=== PATIENT | male | born 1940 | race Caucasian/White ===

== ENCOUNTER 2025-07-26 11:12 | Inpatient (IN) | payer MEDICARE, SELFPAY ==
[2025-07-26 11:15] VITALS: BP 153/66; PULSE 69; RESP 16; TEMP 36.4; O2SAT 96
[2025-07-26 11:54] VITALS: BMI 30.9
[2025-07-26 13:08] LABS: Mucous, Urine 0 SEEN /hpf (<or=2+); Squamous Epithelial Cells - UA 0 SEEN /hpf (0-5)
[2025-07-26 13:09] LABS: Color, Urine Yellow (Yellow); Glucose, Dipstick Normal (Normal); Ketone-Dipstick Negative (Negative); Leukocyte Esterase-Dipstick 100 /ul (Negative); Nitrite-Dipstick Negative (Negative); Occult Blood-Urine 10 /ul (Negative); Protein-Dipstick 30 mg/dl (Negative); Specific Gravity, Urine 1.015 (1.002-1.030); Urine Bilirubin Dipstick Negative (Negative)
[2025-07-26 13:18] LABS: Red Blood Cells-Urine 0-5 SEEN /hpf (0-5)
--- NOTE | 2025-07-26 15:51 | NURSING ---
verified full code status and aware of rehab routine.
[2025-07-26 17:00] VITALS: BMI 30.9
[2025-07-26 17:55] VITALS: BP 99/56; PULSE 57; RESP 16; TEMP 35.8; O2SAT 92
[2025-07-26] MEDS: Heparin Injection (Vial) 5,000 UNIT/ML VIAL 5000 UNIT SC (21:06)
[2025-07-26] MEDS: MELATONIN 3 MG TABLET PO (21:06)
[2025-07-27 01:57] VITALS: BMI 30.9
[2025-07-27 06:50] VITALS: BP 144/67; PULSE 66; RESP 17; TEMP 36.3; O2SAT 97
[2025-07-27 06:52] VITALS: BMI 30.9
--- NOTE | 2025-07-27 07:04 | NURSING ---
pt woke up agitated at 0530. moved down to end of bed and rails were unable to be adjusted d/t his positioning. multiple rns attempted to give zyprexa and tylenol for comfort but pt refused. dr cortés notified. x1 prn dose of haldol ordered.
--- NOTE | 2025-07-27 09:02 | HP.PCM_ITS ---
HPI - General General Date of Admission: 07/26/25 Date of Service: 07/27/25 Chief Complaint: Post Stroke debility HPI Narrative KITTY CLINTON, is a 85 YO M with a PMH of PCI to the to LAD in 2024, aortic stenosis, tobacco dependence in remission, CRF stage IV, LVH, LAE, mild MR, HTN, HLD, DM II, BPH with urine retention, obesity, GERD, OA, bradycardia (resolved with DC BB), peripheral neuropathy and gout who presents [ ] Has a Caba catheter present at admission to rehab. UA show no nitrites, no ketones, 0-5 RBCs, 0-5 WBCs and no bacteria. [facility] Medical History (Updated 07/27/25 @ 17:[address] Indigo Mello, ) Remote history of stroke Coronary artery disease Diabetes mellitus, type 2 Chronic renal failure (CRF), stage 4 (severe) Benign prostatic hyperplasia Neuropathy Nonrheumatic aortic (valve) stenosis Osteoarthritis Heart failure Gout Hyperlipidemia Hypertension GERD (gastroesophageal reflux disease) Stroke/cerebrovascular accident Home Medications ?Medication ?Instructions ?Recorded ?Last Taken ?Type allopurinol 300 mg tablet 100 mg PO DAILY gout 5 Unknown History amlodipine 10 mg tablet 10 mg PO DAILY bp 07/26/25 U nknown History aspirin 81 mg chewable tablet 1 tab PO DAILY heart 11/18 Unknown History bumetanide 0.5 mg tablet 0.5 mg PO DAILY diuretic 11/18 Unknown History clopidogrel 75 mg tablet 75 mg PO DAILY blood thinner 07/26/25 Unknown History empagliflozin 10 mg tablet 10 mg PO DAILY dm 07/26/25 Unknown History (Jardiance) ezetimibe 10 mg tablet 10 mg PO DAILY cholesterol 1 09/25/24 Unknown History gabapentin 300 mg capsule 300 mg PO BID pain 07/26/25 Unknown History insulin glargine 100 19 unit subcut DAILY dm 11/18 Unknown History unit-lixisenatide 33 mcg/mL subcutaneous pen (Soliqua 100/33) lansoprazole 15 mg capsule,delayed 15 mg PO DAILY gerd 07/26/25 Unknown History release melatonin 3 mg tablet 3 mg PO QHS sleep 07/26/25 U nknown History olanzapine 2.5 mg tablet 2.5 mg PO Q8H PRN agitation 07/26/25 Unknown History olanzapine 2.5 mg tablet 5 mg PO QHS mood 07/26/25 Un known History tamsulosin 0.4 mg capsule 0.4 mg PO DAILY bph 07/26/25 Unknown History trazodone 50 mg tablet 25 mg PO QHS sleep 07/26/25 Unknown History Allergy/AdvReac Type Severity Reaction Status Date / Time iodine Allergy Unknown Rash Verified 07/26/25 11:59 [id number] Reductase Allergy Unknown Swelling Verified 07/26/25 11:59 Inhibitor Family History (Updated 07/27/25 @ 17:[address] Indigo Mello DO) Son , metastatic malignant melanoma CAD (coronary artery disease) Son , MD/sudden cardiac CAD (coronary artery disease) Surgical History (Updated 07/27/25 @ 17:[address] Indigo Mello DO) History of cataract extraction History of appendectomy S/P TAVR (transcatheter aortic valve replacement) History of PTCA Social History (Updated 07/27/25 @ 17:[address] Indigo Mello DO) household members: spouse housing: house number of children: 2 Smoking Status: Former smoker ROS Review of Systems ROS Unobtainable: other Details: unattainable due to severe expressive aphasia. He does have BPH and urine retention. Also has delirium being treated with Zyprexa. Vital Signs Vital Signs Vital Signs: 07/26/25 11:15 07/26/25 14:18 07/26/25 17:55 Temperature 97.5 F L 96.5 F L Temperature Source Temporal Oral Pulse Rate 69 57 L Respiratory Rate 16 16 Respiratory Effort Normal Non-Labored Respiratory Depth Normal Respiratory Pattern Normal Blood Pressure 153/66 H 99/56 L Blood Pressure Mean 95 70 Blood Pressure Source Monitor Monitor Blood Pressure Position Supine Semi-Fowlers Blood Pressure Location Left Arm Right Arm Pulse Ox 96 92 Oxygen Delivery Method Room Air Room Air Room Air 07/27/25 06:50 Temperature 97.3 F L Temperature Source Oral Pulse Rate 66 Respiratory Rate 17 Respiratory Effort Respiratory Depth Respiratory Pattern Blood Pressure 144/67 H Blood Pressure Mean 92 Blood Pressure Source Monitor Blood Pressure Position Semi-Fowlers Blood Pressure Location Left Arm Pulse Ox 97 Oxygen Delivery Method Room Air Weight Weight: 216 lb Body Mass Index (BMI) 30.9 Indicators for Scoring Admitted with or Primary Diagnosis of CVA/Stroke: Yes Hx of CVA/Stroke: Yes Modified Warren Score MRS Score at time of Evaluation: 4-Moderate/severe disability NIHSS NIHSS 1a. Level of Consciousness: 0 - Alert; keenly responsive 1b. LOC Questions: 2 - Answers NEITHER question correctly 1c. LOC Commands: 1 - Performs ONE task correctly 2. Best Gaze: 0 - Normal 3. Visual: 0 - No visual loss (Not cooperative with exam.......intact to confrontation/physical threat BL. ) 4. Facial Palsy: 1 - Minor paralysis (flattened nasolabial fold, asymmetry on smiling) 5a. Left Arm: 0 - No drift; arm holds 90 (or 45) degrees for full 10 seconds 5b. Right Arm: 0 - No drift; arm holds 90 (or 45) degrees for full 10 seconds 6a. Left Le - Drift; leg falls by the end of 5-seconds, but does not hit bed 6b. Right Le - Drift; leg falls by the end of 5-seconds, but does not hit bed 7. Limb Ataxia: 0 - Absent (no ataxia in the UE's BL. Could not test the LE's because he could not cooperate with the exam. ) 8. Sensory: 0 - Normal; no sensory loss 9. Best Language: 2 - Severe aphasia; (Expressive > receptive but, has both receptive and expressive aphasia) 10. Dysarthria: 1 = [id number] dysarthria; 11. Extinction and Inattention: 0 - No abnormality Total: 9 Stroke Questions Stroke Team Activated: No Physical Exam Const alert and no apparent distress Constitutional Narrative: Expressive aphasia is severe and he is not able to tell me his name, the year, his age, where he is at or the month. He does not appear to be in any distress. He is obese. Was very agitated last night and had to be given Haldol. He has been pleasant with me and cooperating to the degree that the severe aphasia allows. He is tearful and keeps telling me his 2 sons are gone. Can not tell me his 's name but, is distressed that she is not here with him. General Appearance: well developed HEENT HEENT Narrative: Mucous membranes are a little dry. Tongue protrudes on the midline. No evidence of thrush. He has hearing aids in both the ears. Head and Scalp: normocephalic and atraumatic Eyes PERRL, EOMs intact bilaterally, conjunctivae normal and no scleral icterus Eyes Narrative: No discharge from the eyes. visual healy intact to physical threat BL. Pupils are 2 mm. General Eye: normal appearance of both eyes and normal light reflex Neck full ROM and No nodes General: trachea midline Chest Chest: symmetrical chest wall rise Resp normal respiratory effort and normal air movement Resp Narrative: He initially had coarse crackles in the bases and these almost completely resolved after a few deep breaths. He was able to follow my commands to take a deep breath. No conversational dyspnea. Not tachypneic. No wheezing. Cardio regular rate, regular rhythm, no rub and no gallops Cardio Narrative: 1-2/6 ELISHA at the second RICS without radiation. No ectopy. GI normal to inspection, nondistended, normoactive bowel sounds and soft to palpation GI Narrative: No guarding with palpation no CVA tenderness Bladder / Kidney Exam: catheter in place urethral (Urine in the tubing and Caba bag is pale yellow and clear.) Back/Spine normal to inspection General Back: Negative for tenderness Extremity no calf tenderness and no pedal edema Extremity Narrative: He has superficial varicosities of both lower extremities. Skin Skin Narrative: bruising and a few skin tears on the upper extremities.......he tends to pull dressings off. No decubiti noted. Rashes: no rashes Hair: male pattern alopecia Neuro Neuro Narrative: Minimal flattening of the R nasal fold. + dysarthria, + severe aphasia, PERRLA, good shoulder shrug BL. No drift with either UE. No ataxia with the UE's. He has drift with both LE's but, does not hit the bed. unable to complete the heel gore test........will not bend his knees and can not understand what I want him to do. No loss of sensation. No apparent visual field cuts. Follow me around the room when I walk from 1 side to the other. Vision Intact to physical threat BL. Unable to check for extinction......does not seem to have side neglect. Able to maintain an upright posture in the chair with no sloudhing to the side. Able to follow simple commands < 50% of the time. Psych Psych Narrative: Agitated at times and at other times cooperative. Agitation seems to be worse at night. Results Lab / Micro Data 07/27/25 09:35 07/27/25 09:35 Labs: Laboratory Results - last 24 hr 07/26/25 11:54: POC Glucose 191 H 07/26/25 13:00: Urine Color Yellow, Urine Clarity Clear, Urine pH 6.0, Ur Specific [place] 1.015, Urine Protein 30 H, Urine Glucose (UA) Normal, Urine Ketones Negative, Urine Occult Blood 10 H, Urine Nitrite Negative, Urine Bilirubin Negative, Urine Urobilinogen Normal, Ur Leukocyte Esterase 100 H, Urine RBC 0-5 SEEN, Urine WBC 0-5 SEEN, Ur Squamous Epith Cells 0 SEEN, Urine Bacteria 0 SEEN, Hyaline Casts 0-5 SEEN, Urine Mucus 0 SEEN 07/26/25 16:27: POC Glucose 244 H 07/26/25 21:00: POC Glucose 227 H Assessment & Plan Assessment/Plan (1) Debility: (2) Embolic stroke: QUALIFIERS: Precerebral and cerebral artery: unspecified precerebral artery Qualified Code(s): I63.10 - Cerebral infarction due to embolism of unspecified precerebral artery PLAN: Multiple emboli BL cerebral hemispheres and L cerebellum following TAVR (3) Aphasia: (4) Delirium: PLAN: Presumably due to acute multiple embolic CVAs affecting both cerebral hemispheres. Continue Zyprexa (5) Nonrheumatic aortic (valve) stenosis: (6) S/P TAVR (transcatheter aortic valve replacement): PLAN: 07/14/2025 (7) Coronary artery disease: QUALIFIERS: Coronary Disease-Associated Artery/Lesion type: [place] artery [place] vs. transplanted heart: [place] heart Associated angina: without angina Qualified Code(s): I25.10 - Atherosclerotic heart disease of [place] coronary artery without angina pectoris (8) History of PTCA: PLAN: December 2024 to LAD..... Will need dual antiplatelet agents for 1 year (9) Remote history of stroke: PLAN: Left caudate/basal ganglia (10) Chronic renal failure (CRF), stage 4 (severe): (11) Benign prostatic hyperplasia: QUALIFIERS: Lower urinary tract symptom presence: symptoms present Lower urinary tract symptom detail: urinary retention Qualified Code(s): N40.1 - Benign prostatic hyperplasia with lower urinary tract symptoms; R33.8 - Other retention of urine (12) Urine retention: (13) Presence of indwelling Caba catheter: PLAN: Present at admission to rehab. (14) Thyroid enlargement: PLAN: Large nodule on recent CT imaging of the neck. Can be evaluated as an OP. (15) Depression: QUALIFIERS: Depression Type: reactive depression Qualified Code(s): F32.9 - Major depressive disorder, single episode, unspecified (16) Diabetes mellitus, type 2: QUALIFIERS: Diabetes mellitus ad terminal makeup operator insulin use: with ad terminal makeup operator use Diabetes mellitus complication status: with kidney complications D iabetes mellitus complication detail: with chronic kidney disease Chronic kidney disease stage: stage 4 (GFR 15-29) Qualified Code(s): E11.22 - Type 2 diabetes mellitus with diabetic chronic kidney disease; N18.4 - Chronic kidney disease, stage 4 (severe); Z79.4 - senior care (current) use of insulin (17) Normochromic normocytic anemia: PLAN: Possibly due to CRF stage IV (18) GERD (gastroesophageal reflux disease): QUALIFIERS: Esophagitis presence: without esophagitis Qualified Code(s): K21.9 - Gastro-esophageal reflux disease without esophagitis (19) Hypertension: QUALIFIERS: Hypertension type: primary hypertension Qualified Code(s): I10 - Essential (primary) hypertension (20) Hyperlipidemia: QUALIFIERS: Hyperlipidemia type: unspecified Qualified Code(s): E 78.5 - Hyperlipidemia, unspecified (21) Gout: QUALIFIERS: Gout site: unspecified site Gout etiology: u nspecified cause Chronicity: chronic Presence of tophus: without tophus Q ualified Code(s): M1A.9XX0 - Chronic gout, unspecified, without tophus (tophi) (22) Osteoarthritis: QUALIFIERS: Osteoarthritis location: multiple joints O steoarthritis type: primary Qualified Code(s): M15.0 - Primary generalized (osteo)arthritis (23) Neuropathy: PLAN: peripheral neuropathy more likely than not due to DM II (24) First degree AV block: (25) Left bundle branch block: PLAN: Plan PLAN PT for gait stability OT for ADL's ST for evaluation Analgesics as needed Bowel protocol Fall precautions Assess for Anxiety/Depression GI prophylaxis -patient has severe expressive aphasia and cannot tell me if he has heartburn or not. He has a history of GERD. Will continue lansoprazole 15 mg daily. DVT prophylaxis with heparin 5000 units SQ every 12 hours Follow up with neurology, cardiology, PCP, nephrology, urology following DC from IP Rehab AM lab including CMP, CBC, Mag and Phos - all personally reviewed. Will need a thyroid US as OP to better evaluate the 3.1 cm thyroid nodule. Add a dose of Zyprexa 2.5 MG IN THE am Uric acid this a.m. was 8.5. He currently has no active gout. Will increase allopurinol to 200 mg daily. Wean Zyprexa as tolerated when appropriate. Charges/Coding Visit Charges Inpatient E&M: 43763 Init Hosp L3
[2025-07-27] MEDS: Insulin Glargine-YFGN 100 UNIT/ML Pen 19 UNIT SC (09:07)
[2025-07-27] MEDS: Heparin Injection (Vial) 5,000 UNIT/ML VIAL 5000 UNIT SC ×2 (09:09→20:23)
[2025-07-27 09:25] VITALS: BP 160/82; PULSE 71; O2SAT 96
[2025-07-27 09:51] LABS: Hematocrit 38.6 % (40-54); Hemoglobin 12.7 g/dL (13.0-16.5); Mean Corp Hgb Conc 32.9 g/dL (32-36); Mean Corpuscular Volume 92.6 fL (80-94); Mean Platelet Vol. 11.0 fl (6.2-12.0); Platelet Count 281 K/mm3 (150-450); RBC Distribution Width CV 13.9 % (11.6-14.6); RBC Distribution Width SD 47.0 fl (35.1-43.9); Red Blood Count 4.17 M/mm3 (4.6-6.2); White Blood Count 9.8 K/mm3 (4.4-11.0)
[2025-07-27 10:25] LABS: AST(SGOT) 24 U/L (<=37); Alanine Aminotransfer ALT/SGPT 10 U/L (<=46); Albumin, Serum 3.9 g/dL (3.4-4.8); Alkaline Phosphatase 131 U/L (40-129); Anion Gap 12 (5-15); BUN 37 mg/dL (4-19); BUN/Creat Ratio 15.8 RATIO (10-20); Calcium,Total 9.5 mg/dL (7.6-11.0); Carbon Dioxide 24.8 mmol/L (21.0-32.0); Chloride 100 mmol/L (98-108); Estimated Creatinine Clearance 27.21 ml/min (50-250); Globulin 3.9 g/dL (2.2-4.2); Glucose 192 mg/dL (70-99); Potassium 4.9 mmol/L (3.3-5.1)
[2025-07-27 10:57] LABS: Uric Acid 8.5 mg/dL (3.5-7.2)
[2025-07-27] MEDS: FLU VACCINE HIGH DOSE 25-26(65YR UP) 180 MCG/0.5 ML SYRINGE IM (11:02)
[2025-07-27 11:06] LABS: Magnesium 2.5 mg/dL (1.5-2.2)
[2025-07-27 12:55] VITALS: BMI 30.9
--- NOTE | 2025-07-27 17:54 | PCM.RU.PYE ---
Admission Information Primary Diagnosis:: Poststroke debility Status Changes from Prescreening?: No changes Identified Actual Problem List:: Skin Intergrity, Cognitve Impr/Memory Loss, Depression, Bladder Incontinence (retention not incontinence), Alteration in Sleep, Mobility Impaired, Self Care Deficit, Know.Dfct of Medicaitons, Diabetes, Hyperglycemia and Alteration-Leisure Activ. Risk of Complications DVT: ZANE Hose and - (Heparin 5000 units SQ every 12 hours) Bleeding: Monitor Lab Values, Nursing to Teach Precautions for anti-coagulation therapy., Wound, if applicable, to be assessed every shift. and Stroke patients assessed for lethargy or change in status. Infection: Clinical Staff to Monitor for S/S of infection: and S/S of infection include fever, redness, warmth, etc. Urinary Tract Infection: Monitor for frequency, burning, discomfort, or incontinence. and Nursing will obtain urine sample for urinalysis and C&S when ordered. Aspiration: Clinical staff will monitor for coughing, drooling, congestion., Speech will evaluate swallowing and dsyphasia. and Nursing will monitor patient swallowing during meals. Falls: Patient will be evaluated for Fall Precautions and Patient will be placed on Fall Precautions as indicated per protocol. Skin Breakdown: Nursing will assess skin daily using assessment tool. and Nursing will place on Skin Breakdown Precautions as indicated. Pain: Clinical staff will assess patient's pain level per protocol., Medications will be given, if needed, and the pain level reassessed. and Other methods: Massage, distraction, decrease stimulus, etc. used PRN. Plan of Care Patient requires physician specializing in physical medicine and rehab oversight to provide close medical supervision of rehab issues including: Pain Management, Sleep Problems, Bowel and Bladder, Medical and co-morbidity Management, DVT prophylaxis, Rehabilitation Leadership and Coordination of treatment team Patient needs Physical Therapy: For a minimum of 1 hour and At least 5 out of 7 days Patient needs Physical Therapy to improve:: Mobility, Strengthening, Transfers, Stretching, ROM, Endurance, Stairs, Gait and Balance Patient needs Occupational Therapy: For a minimum of 1 hour and At least 5 out of 7 days Patient needs Occupational Therapy to improve ADL's incl.: Eating, Grooming, Bathing, Dressing, Toileting, Toilet transfers, Community Reintegration, Higher functioning activities, Household tasks, Adaptive Equipment, Splinting and Other activities as determined Patient requires speech therapy: For a minimum of 1 hour and At least 5 out of 7 days Patient requires speech therapy for: Swallowing, Cognition, Language Skills and Compensatory Strategies Patient requires 24/ Rehabilitation Nursing for: Pain Issues, Identifying and preventing risk factors, Monitoring and reporting current medical conditions, Assisting with ambulation, transfer, and all ADL's, Teaching patients about disease process and medications, Family teaching, Providing safe environment, Bowel and Bladder Issues, Skin integrity and Medication Management Patient needs Road Roller Operator Hot Mix/ Case Management for: Discharge Planning, Arranging Home Equipment or Services and Family Interventions Patient needs Dietary and Nutrition Services for: Adequate Nutrition, Nutritional Supplements and Nutritional Education Goals Goals Patient will remain: free from falls Patient will perform eating at: MOD I level of assist. Patient will perform bed mobility at: MOD I level of assist. Patient will complete transfers from bed to chair at: Standby Assist. Patient will ambulate: - (200 feet using a wheeled walker at standby assist) Patient will complete upper body dressing at: - (Set up) Patient will complete lower body dressing at: - (Supervision with adaptive equipment as needed) Patient will complete toilet transfer at: - (Supervision) Patient will complete toileting at: - Patient will perform bathing at: - (He will complete upper body bathing at set up and lower body bathing and set up with adaptive equipment as needed.) Patient will perform Tub/Shower transfer at: Standby Assist. Patient will achieve: - (2-3 steps using 1 handrail at standby assist) Patient will have pain level of: of 3 or less Patient's skin will: remain intact Patient will receive: adequate nutrition. Discharge Planning Pt Prognosis for Sig. Practical Improv. w/in Reasonable Time: Fair Estimated Length of stay (days): 28 Anticipated D/C Destination: TBD Was Preadmission Assessment Accurate?: Yes
[2025-07-27 18:00] VITALS: BP 122/56; PULSE 69; RESP 17; TEMP 36.4
[2025-07-27 20:00] VITALS: PULSE 69; RESP 17; O2SAT 97; BMI 30.9
[2025-07-27] MEDS: MELATONIN 3 MG TABLET PO (20:25)
--- NOTE | 2025-07-28 01:45 | NURSING ---
Pt setting off BA several times and taking off gown. Pt claims he needs to get oob to urinate. Pt reluctant to get back into bed and urged by staff to look at HAGER bag to see that the bladder is released through the tube running from his bladder to the HAGER bag. Staff asked if pt needed the bsc to have a BM and pt became more upset. Pt stood up and repositioned to head of bed with staff assisting into bed. BA was set and pt denies further needs at this time.
--- NOTE | 2025-07-28 02:20 | NURSING ---
pt awake and attempting to get oob, d/t needing to pee staff tried to make pt understand that he had a de oliveira in place that was draining his urine. the more staff tried to explain the more agitated pt became, zyprexa was given as per prn order. pt repositioned back into the bed with some difficulty . [id number] pt resting quietly at this time, with no distress noted , fall strategies in place
--- NOTE | 2025-07-28 03:35 | NURSING ---
Pt setting off BA with gown stripped and sitting on side of bed. Staff reorients pt to time of day and washes pt up for the day in hopes that pt will be able to relax, falling back to sleep without interruption.
[2025-07-28 04:50] VITALS: BMI 30.7
[2025-07-28 05:20] VITALS: BP 165/65; PULSE 52; RESP 16; TEMP 36.2; O2SAT 95
[2025-07-28] MEDS: Heparin Injection (Vial) 5,000 UNIT/ML VIAL 5000 UNIT SC ×2 (09:16→20:13)
[2025-07-28] MEDS: Senna/Docusate Sodium 1 Tablet 2 TABLET PO ×2 (09:16→19:43)
[2025-07-28] MEDS: Insulin Glargine-YFGN 100 UNIT/ML Pen 19 UNIT SC (09:18)
[2025-07-28 09:23] VITALS: BP 104/53; PULSE 65
--- NOTE | 2025-07-28 09:42 | CASEMGMT ---
Social Work SW phoned to complete initial assessment d/t pt's confusion and expressive aphasia. stated she provided copies of advance directives last evening. states she prefers her son, Surinder, is listed as primary contact, as she has difficultly understanding medical information. SW expressed understanding and updated EMR. Surinder is 's son and pt's stepson. and sson will be present at Team meeting and SW will explain insurance information at that time, per 's request. SW will continue to follow for DC planning. Anahi Valdes TRANSPORTATION ENGINEERING TECHNICIAN FOOTWEAR STITCHER
[2025-07-28 11:33] VITALS: BMI 30.7
[2025-07-28 12:08] VITALS: BP 120/58; BP 124/49; BP 83/65; PULSE 57; PULSE 59; PULSE 60
--- NOTE | 2025-07-28 13:51 | PN_ITS ---
Subjective Subjective Afebrile VSS -blood pressure over the past 24 hours has ranged from 104/53 to 160/82. Heart rate is ranged from 52-71. Severe orthostatic changes today.... The blood pressure lying down was 124/49 and standing up it dropped to 83/65. Heart rate is in the 50s to 60 range and does not increase when going form lying to standing. He is not on any medications to block the AV node. Maintaining appropriate oxygen saturation on RA Oral intake - FOOD highly variable. Ate 75 to 100% of some meals and refuses others. He refused breakfast yesterday morning and today. He ate well for lunch and supper yesterday. FLUIDS was able to take 1430 cc yesterday orally with a a lot of encouragement. Urine output was 2425 for fluid balance of -995 yesterday. So far today is -960. He is on Bumex 0.5 mg daily. Weight is down approximately 1 pounds since admission to rehab. He had 1 as needed dose of Zyprexa at 1:30 AM today. The blood sugar record was reviewed. Blood sugars yesterday ranged from 141-252 prior to lunch. Fasting blood sugar today is 160. Discussed with nursing -very restless last night trying to get out of bed and wanting to urinate but has a Caba catheter present. Required 3 people to get him back into bed and reposition him. Initially refused his medications this morning but later agreed to take them. Has been pulling on the Caba catheter. Reviewed the THERAPY notes Medication list reviewed. He now has hematuria secondary to pulling on the Caba catheter. He is very impulsive. Has severe receptive and expressive aphasia. ROS is not obtainable due to severe expressive aphasia. He does not appear to be in any distress. Objective Data Objective Data Vital Signs: Vital Signs Temp Pulse Resp BP Pulse Ox O2 Del Method 97.1 F L 59 L 16 124/49 H 95 Room Air 07/28/25 05:20 07/28/25 12:08 07/28/25 05:20 07/28/25 12:08 07/28/25 05:20 07/28/25 05:20 Oxygen Delivery Method Room Air Weight: 214 lb 1.102 oz Body Mass Index (BMI) 30.7 Intake & Output: Intake and Output for Last 24 Hours 07/26/25 07/27/25 07/28/25 22:59 23:59 23:59 Intake Total 1062 / 1262 1430 / 1430 240 / 240 Output Total 400 / 800 2425 / 2425 1200 / 1200 Balance 662 / 462 -995 / -995 -960 / -960 Lab / Micro Data 07/27/25 09:35 07/27/25 09:35 Labs: Laboratory Results - last 24 hr 07/27/25 16:53: POC Glucose 141 H 07/27/25 20:18: POC Glucose 185 H 07/28/25 06:09: POC Glucose 160 H 07/28/25 11:53: POC Glucose 222 H Micro: Microbiology 07/26/25 13:00 Urine, Catheterized Urine Culture - Final Culture exhibits no growth. Physical Exam Const alert and no apparent distress Resp normal respiratory effort and normal air movement Cardio regular rate, regular rhythm, no rub and no gallops Cardio Narrative: 1-2/6 ELISHA at the second RICS without radiation. No ectopy. GI normal to inspection, nondistended, normoactive bowel sounds and soft to palpation GI Narrative: No guarding with palpation urine in the Caba bag is pink-red today Extremity no calf tenderness and no pedal edema Extremity Narrative: He has superficial varicosities of both lower extremities. Skin Rashes: no rashes Hair: male pattern alopecia Assessment & Plan Assessment/Plan (1) Debility: (2) Embolic stroke: QUALIFIERS: Precerebral and cerebral artery: unspecified precerebral artery Qualified Code(s): I63.10 - Cerebral infarction due to embolism of unspecified precerebral artery (3) Aphasia: (4) Delirium: (5) Nonrheumatic aortic (valve) stenosis: (6) S/P TAVR (transcatheter aortic valve replacement): (7) Coronary artery disease: QUALIFIERS: Coronary Disease-Associated Artery/Lesion type: [place] artery [place] vs. transplanted heart: [place] heart Associated angina: without angina Qualified Code(s): I25.10 - Atherosclerotic heart disease of [place] coronary artery without angina pectoris (8) History of PTCA: (9) Remote history of stroke: PLAN: Left caudate/basal ganglia (10) Chronic renal failure (CRF), stage 4 (severe): (11) Benign prostatic hyperplasia: QUALIFIERS: Lower urinary tract symptom presence: symptoms present Lower urinary tract symptom detail: urinary retention Qualified Code(s): N40.1 - Benign prostatic hyperplasia with lower urinary tract symptoms; R33.8 - Other retention of urine (12) Urine retention: (13) Presence of indwelling Caba catheter: PLAN: Present at admission to rehab. (14) Thyroid enlargement: PLAN: Large nodule on recent CT imaging of the neck. Can be evaluated as an OP. (15) Depression: QUALIFIERS: Depression Type: reactive depression Qualified Code(s): F32.9 - Major depressive disorder, single episode, unspecified (16) Diabetes mellitus, type 2: QUALIFIERS: Diabetes mellitus snf insulin use: with snf use Diabetes mellitus complication status: with kidney complications D iabetes mellitus complication detail: with chronic kidney disease Chronic kidney disease stage: stage 4 (GFR 15-29) Qualified Code(s): E11.22 - Type 2 diabetes mellitus with diabetic chronic kidney disease; N18.4 - Chronic kidney disease, stage 4 (severe); Z79.4 - watermaster (current) use of insulin (17) Normochromic normocytic anemia: PLAN: Possibly due to CRF stage IV (18) GERD (gastroesophageal reflux disease): QUALIFIERS: Esophagitis presence: without esophagitis Qualified Code(s): K21.9 - Gastro-esophageal reflux disease without esophagitis (19) Hypertension: QUALIFIERS: Hypertension type: primary hypertension Qualified Code(s): I10 - Essential (primary) hypertension (20) Hyperlipidemia: QUALIFIERS: Hyperlipidemia type: unspecified Qualified Code(s): E 78.5 - Hyperlipidemia, unspecified (21) Gout: QUALIFIERS: Gout site: unspecified site Gout etiology: u nspecified cause Chronicity: chronic Presence of tophus: without tophus Q ualified Code(s): M1A.9XX0 - Chronic gout, unspecified, without tophus (tophi) (22) Osteoarthritis: QUALIFIERS: Osteoarthritis location: multiple joints O steoarthritis type: primary Qualified Code(s): M15.0 - Primary generalized (osteo)arthritis (23) Neuropathy: PLAN: peripheral neuropathy more likely than not due to DM II (24) First degree AV block: (25) Left bundle branch block: (26) Hematuria: QUALIFIERS: Hematuria type: unspecified type Qualified Code(s): R 31.9 - Hematuria, unspecified (27) Orthostatic hypotension: (28) Bradycardia: PLAN: Plan 1. Continue therapy 2. Increase the trazodone at bedtime to 50 mg. Continue Zyprexa 5 mg at 8 PM. Trazodone is not associated with urine retention but, Zyprexa is.......but, Zyprexa has less anticholinergic effects than Risperdal or Seroquel. 3. Increase the sliding scale insulin to medium high. He has had no hypoglycemia. 4. Hold Bumex and reassess tomorrow 5. I have no reason for bradycardia so we will check a TSH and T4 today........ he has a 3.1 cm thyroid nodule in the right lobe. 6. Recheck orthostatics tomorrow 7. Zyprexa, Flomax and Amlodipine all lower BP. He could also have autonomic neuropathy causing the orthostasis. Charges/Coding Visit Charges Inpatient E&M: 69751 Subs Hosp L2
[2025-07-28 17:28] VITALS: BP 106/76; PULSE 63; RESP 17; TEMP 36; O2SAT 94
[2025-07-28] MEDS: MELATONIN 3 MG TABLET PO (19:43)
[2025-07-28 19:45] VITALS: PULSE 63; RESP 17; O2SAT 94; BMI 30.7
[2025-07-29 06:00] VITALS: BP 119/73; PULSE 73; RESP 16; TEMP 36.4; O2SAT 98
[2025-07-29 06:45] VITALS: BP 119/73; BP 147/67; PULSE 67; PULSE 73
[2025-07-29 06:48] VITALS: O2SAT 89
[2025-07-29] MEDS: Senna/Docusate Sodium 1 Tablet 2 TABLET PO ×2 (07:55→19:41)
[2025-07-29] MEDS: Heparin Injection (Vial) 5,000 UNIT/ML VIAL 5000 UNIT SC ×2 (07:56→19:42)
[2025-07-29] MEDS: Insulin Glargine-YFGN 100 UNIT/ML Pen 19 UNIT SC (07:56)
[2025-07-29 13:57] VITALS: BP 112/68; BP 130/72; BP 136/72; PULSE 60; PULSE 62; PULSE 70
[2025-07-29 14:07] VITALS: BMI 30.7
[2025-07-29 17:53] VITALS: BP 110/72; PULSE 61; RESP 18; TEMP 36.8; O2SAT 96
[2025-07-29] MEDS: MELATONIN 3 MG TABLET PO (19:42)
[2025-07-29 19:45] VITALS: PULSE 61; RESP 18; O2SAT 96; BMI 30.7
[2025-07-30 06:00] VITALS: BP 136/78; PULSE 77; RESP 17; TEMP 36.6; O2SAT 94
[2025-07-30 06:30] VITALS: BMI 30.9
[2025-07-30 06:55] VITALS: O2SAT 94
[2025-07-30] MEDS: Senna/Docusate Sodium 1 Tablet 2 TABLET PO ×2 (08:04→21:27)
[2025-07-30] MEDS: Heparin Injection (Vial) 5,000 UNIT/ML VIAL 5000 UNIT SC ×2 (08:07→21:27)
[2025-07-30] MEDS: Insulin Glargine-YFGN 100 UNIT/ML Pen 19 UNIT SC (08:07)
--- NOTE | 2025-07-30 08:53 | PN_ITS ---
Subjective Subjective Afebrile VSS - orthostatics were very + yesterday AM. He received 10 mg of Midodrine and although he was still mildly orthostatic they were much improved. Following midodrine the blood pressure was 136/72 lying down, 130/72 sitting up and 112/68 standing. Maintaining appropriate oxygen saturation on RA Oral intake - FOOD good FLUIDS good Weight is stable. The blood sugar record was reviewed. The blood sugars are adequately controlled with the increase in the sliding scale insulin with no hypoglycemia. Will continue current regimen. Discussed with nursing -still a little restless last night but much better than he has been. Reviewed the THERAPY notes Medication list reviewed. Gabapentin was decreased and he is not showing any signs that he is in pain. He is not coughing and he is not tachypneic. He was able to communicate to PT that he needed to have a BM and he was able to wipe himself. Family thinks he is much better today than he was yesterday. He is engaged in the conversation when I am talking with his family and he is making eye contact with me. Slept better last night. Objective Data Objective Data Vital Signs: Vital Signs Temp Pulse Resp BP Pulse Ox O2 Del Method 97.8 F 77 17 136/78 H 94 Room Air 07/30/25 06:00 07/30/25 06:00 07/30/25 06:00 07/30/25 06:00 07/30/25 06:55 07/30/25 06:55 Oxygen Delivery Method Room Air Weight: 215 lb 13.321 oz Body Mass Index (BMI) 30.9 Intake & Output: Intake and Output for Last 24 Hours 07/28/25 07/29/25 07/30/25 23:59 23:59 23:59 Intake Total 1300 / 1300 1920 / 1920 222 / 222 Output Total 2225 / 2225 1350 / 1350 475 / 475 Balance -925 / -925 570 / 570 -253 / -253 Lab / Micro Data 07/27/25 09:35 07/27/25 09:35 Labs: Laboratory Results - last 24 hr 07/29/25 11:56: POC Glucose 180 H 07/29/25 16:32: POC Glucose 166 H 07/29/25 20:12: POC Glucose 162 H 07/30/25 06:32: POC Glucose 136 H Micro: Microbiology 07/26/25 13:00 Urine, Catheterized Urine Culture - Final Culture exhibits no growth. Physical Exam Const alert and no apparent distress Constitutional Narrative: Took his medications this AM with no problem General Appearance: cooperative Neck supple Resp normal respiratory effort and normal air movement Resp Narrative: No cough Effort and Inspection: Negative for tachypneic or respiratory distress Cardio regular rate, regular rhythm, no rub and no gallops Cardio Narrative: 1-2/6 ELISHA at the second RICS without radiation. No ectopy. GI normal to inspection, nondistended, normoactive bowel sounds and soft to palpation GI Narrative: No guarding with palpation urine in the Caba bag is nia today with no blood visible. Extremity no calf tenderness and no pedal edema Extremity Narrative: He has superficial varicosities of both lower extremities. Skin Rashes: no rashes Psych Psych Narrative: Agitation is improving and he is resting better at night. Assessment & Plan Assessment/Plan (1) Debility: (2) Embolic stroke: QUALIFIERS: Precerebral and cerebral artery: unspecified precerebral artery Qualified Code(s): I63.10 - Cerebral infarction due to embolism of unspecified precerebral artery (3) Aphasia: (4) Delirium: (5) Nonrheumatic aortic (valve) stenosis: (6) S/P TAVR (transcatheter aortic valve replacement): (7) Coronary artery disease: QUALIFIERS: Coronary Disease-Associated Artery/Lesion type: [place] artery [place] vs. transplanted heart: [place] heart Associated angina: without angina Qualified Code(s): I25.10 - Atherosclerotic heart disease of [place] coronary artery without angina pectoris (8) History of PTCA: (9) Remote history of stroke: (10) Chronic renal failure (CRF), stage 4 (severe): (11) Benign prostatic hyperplasia: QUALIFIERS: Lower urinary tract symptom presence: symptoms present Lower urinary tract symptom detail: urinary retention Qualified Code(s): N40.1 - Benign prostatic hyperplasia with lower urinary tract symptoms; R33.8 - Other retention of urine (12) Urine retention: (13) Presence of indwelling Caba catheter: (14) Thyroid enlargement: (15) Depression: QUALIFIERS: Depression Type: reactive depression Qualified Code(s): F32.9 - Major depressive disorder, single episode, unspecified (16) Diabetes mellitus, type 2: QUALIFIERS: Diabetes mellitus group home insulin use: with intermediate teacher use Diabetes mellitus complication status: with kidney complications D iabetes mellitus complication detail: with chronic kidney disease Chronic kidney disease stage: stage 4 (GFR 15-29) Qualified Code(s): E11.22 - Type 2 diabetes mellitus with diabetic chronic kidney disease; N18.4 - Chronic kidney disease, stage 4 (severe); Z79.4 - long term care phlebotomist (current) use of insulin (17) Normochromic normocytic anemia: (18) GERD (gastroesophageal reflux disease): QUALIFIERS: Esophagitis presence: without esophagitis Qualified Code(s): K21.9 - Gastro-esophageal reflux disease without esophagitis (19) Hypertension: QUALIFIERS: Hypertension type: primary hypertension Qualified Code(s): I10 - Essential (primary) hypertension (20) Hyperlipidemia: QUALIFIERS: Hyperlipidemia type: unspecified Qualified Code(s): E 78.5 - Hyperlipidemia, unspecified (21) Gout: QUALIFIERS: Gout site: unspecified site Gout etiology: u nspecified cause Chronicity: chronic Presence of tophus: without tophus Q ualified Code(s): M1A.9XX0 - Chronic gout, unspecified, without tophus (tophi) (22) Osteoarthritis: QUALIFIERS: Osteoarthritis location: multiple joints O steoarthritis type: primary Qualified Code(s): M15.0 - Primary generalized (osteo)arthritis (23) Neuropathy: (24) First degree AV block: (25) Left bundle branch block: (26) Hematuria: QUALIFIERS: Hematuria type: unspecified type Qualified Code(s): R 31.9 - Hematuria, unspecified (27) Orthostatic hypotension: (28) Bradycardia: PLAN: Plan 1. Continue therapy 2. Start midodrine 5 mg 3 times daily. Recheck orthostatics this afternoon and also in the AM. Would like to use the lowest effective dose 3. Flomax cause orthostatic hypotension but, with urine retention (already had a urologic procedure earlier this year) he needs to be on this medication for now. 4. Midodrine can cause urine retention however he is severely orthostatic and needs this medication to be able to stand and work with therapy. Will decrease the Amlodipine to 5 mg starting tomorrow 5. Voiding trial in the AM 6. Still restless at night but, better. Continue Zyprexa 5 mg and Trazodone 50 mg at HS. Give both medications at 2200. Has been better in the mornings and more cooperative. 7. CBC with differential and BMP in the AM. 8. Restart Bumex 0.5 mg every 48 hours. Had a lengthy discussion with family about all the diagnoses and what our plan of tx is. I answered all their questions to his satisfaction. Did better with therapy today and is cooperating. Getting his behavior under control was paramount in him being able to participate with therapy. Will try a voiding trial in the AM but, if he fails will need to reinsert and defer further voiding trials to urology. Check a UA prior to pulling the Caba. I suspect he will be able to go home with additional PT/OT. I reinforced with the family that speech is usually the last thing to come back and he will need ongoing therapy at [place]. His step dtr is retiring in Aug and will be help to assist in his care. Family is very supportive. Charges/Coding Visit Charges Inpatient E&M: 70979 Subs Hosp L2
--- NOTE | 2025-07-30 13:50 | CASEMGMT ---
Social Work IDT met with patient, , don and DIL for Team meeting. Discussed patient's progress in PT/OT/ST/SN/MD. Educated to [facility] insurance with [employer] 08/05 and continued stay is not guaranteed with each review. Pt lives at home with his , no steps in the condo. Currently pt needs significant physical assistance and has severe cognitive deficits. SW broached discussion of maybe needing an alternative DC plan, as LOS is unknown. SW briefly educated to SNF, pending [place], or hiring SOLE EDGE INKER MACHINE OOP to assist in the home. Family expressed understanding. SW offered information as needed, but the goal is to continue on RU. Will ReTeam weekly. SW will continue to follow for DC planning. Anahi Valdes MSW METAL BONDING ASSEMBLER
[2025-07-30 13:51] VITALS: BMI 30.9
--- NOTE | 2025-07-30 15:59 | CHAPLAIN ---
Type of Pastoral Visit _x__ Initial Visit ___ Follow-up Visit ___ On-call Visit ___ General Patient Visit ___ Spiritual Assessment ___ Family Conference ___ Bereavement ___ Rapid Response ___ Code Blue ___ Other (describe below) Pastoral Care Referral From _x__ Patient ___ Family ___ Nurse ___ Physician ___ Progressive Die Maker ___ Fire Control Mechanic ___ Other (describe below) Sacrament/Intervention _x__ Active listening ___ Anointing ___ Synagogue ___ Bereavement ___ Communion ___ [place] exploration ___ ___ Life review ___ Prayer ___ Reconciliation ___ Sacrament of Sick _x__ Supportive presence ___ Wedding ___ Other (describe below) Pastoral Comments patient is trying to write on a pad; pt also tries to speak and some words are easily understood but others are not and are not consistent thoughts; pt is aware of these limitations and makes apology and shows facial frustrations along with hand gestures; pt is affirmed in that he is experiencing common affects of a stroke, that staff is understanding and this burrito maker will be patient; time to sit with patient and offer supportive comments and calm; repeated those sentences that were understandable to patient to affirm that he was being heard; offered future support as desired
[2025-07-30 18:00] VITALS: BP 151/55; PULSE 61; RESP 17; TEMP 36.6; O2SAT 99
[2025-07-30] MEDS: OLANZapine 5 MG/TAB TAB.RAPDIS PO (21:27)
[2025-07-30] MEDS: MELATONIN 3 MG TABLET PO (21:27)
[2025-07-30 22:27] LABS: Mucous, Urine 0 SEEN /hpf (<or=2+)
[2025-07-30 22:33] LABS: Color, Urine Yellow (Yellow); Glucose, Dipstick 1000 mg/dl (Normal); Ketone-Dipstick Negative (Negative); Leukocyte Esterase-Dipstick Negative /ul (Negative); Nitrite-Dipstick Negative (Negative); Occult Blood-Urine 10 /ul (Negative); Protein-Dipstick 30 mg/dl (Negative); Specific Gravity, Urine 1.005 (1.002-1.030); Urine Bilirubin Dipstick Negative (Negative)
[2025-07-30 23:04] LABS: Red Blood Cells-Urine 0-5 SEEN /hpf (0-5); Squamous Epithelial Cells - UA 0-5 SEEN /hpf (0-5)
[2025-07-31 01:05] VITALS: BMI 30.9
[2025-07-31 06:00] VITALS: BP 164/71; PULSE 71; RESP 17; TEMP 36.6; O2SAT 97
[2025-07-31 07:01] VITALS: BP 126/109; BP 149/67; BP 164/71; PULSE 71; PULSE 74; PULSE 92
[2025-07-31 07:46] LABS: Hematocrit 35.3 % (40-54); Hemoglobin 11.4 g/dL (13.0-16.5); Immature Granulocytes Count 0.050 X10^3/uL (0.0-0.0); Mean Corp Hgb Conc 32.3 g/dL (32-36); Mean Corpuscular Volume 92.7 fL (80-94); Mean Platelet Vol. 11.4 fl (6.2-12.0); NRBC Flagged by Analyzer 0 % (0-5); Platelet Count 266 K/mm3 (150-450); RBC Distribution Width CV 14.1 % (11.6-14.6); RBC Distribution Width SD 47.9 fl (35.1-43.9); Red Blood Count 3.81 M/mm3 (4.6-6.2); White Blood Count 7.9 K/mm3 (4.4-11.0)
[2025-07-31] MEDS: Senna/Docusate Sodium 1 Tablet 2 TABLET PO ×2 (08:27→21:12)
[2025-07-31] MEDS: Heparin Injection (Vial) 5,000 UNIT/ML VIAL 5000 UNIT SC ×2 (08:27→21:11)
[2025-07-31] MEDS: Insulin Glargine-YFGN 100 UNIT/ML Pen 19 UNIT SC (08:28)
[2025-07-31 08:42] LABS: Anion Gap 11 (5-15); BUN 42 mg/dL (4-19); BUN/Creat Ratio 16.2 RATIO (10-20); Calcium,Total 9.3 mg/dL (7.6-11.0); Carbon Dioxide 25.6 mmol/L (21.0-32.0); Chloride 101 mmol/L (98-108); Estimated Creatinine Clearance 24.56 ml/min (50-250); Glucose 126 mg/dL (70-99); Potassium 4.7 mmol/L (3.3-5.1)
--- NOTE | 2025-07-31 08:59 | PCM.PROGNOTE ---
Subjective Subjective Afebrile VSS - orthostatics have improved on the Midodrine. Maintaining appropriate oxygen saturation on RA Oral intake - FOOD good FLUIDS good Weight is stable. The blood sugar record was reviewed. The blood sugars are adequately controlled. He did have an increase in the sliding scale insulin with no hypoglycemia. Will continue current regimen. Discussed with nursing -pt slept well last night. Caba cath was removed this morning and will continue to assess. Reviewed the THERAPY notes Medication list reviewed. Gabapentin was decreased to 100mg bid and he denies pain. He is not coughing and he is not tachypneic or dyspneic. Trazadone was increased as well as Zyprexa changed to 2.5mg with breakfast and 5mg at night, this seems to be helping with nighttime sleep. I did note him to have slight worsening of kidney function as compared to labs of 07/27, 07/13/25 and 03/09/25. with a BUN of 42 (37), creat of 2.58 (2.33) and GFR of 24 (27), Nursing encourage fluid intake. Nursing did state that he has not been drinking much. He continues to have receptive and expressive aphasia but is working well with ST. Objective Data Objective Data Vital Signs: Vital Signs Temp Pulse Resp BP Pulse Ox O2 Del Method 97.9 F 71 17 164/71 H 97 Room Air 07/31/25 06:00 07/31/25 07:01 07/31/25 06:00 07/31/25 07:01 07/31/25 06:00 07/31/25 06:00 Oxygen Delivery Method Room Air Weight: 215 lb 13.321 oz Body Mass Index (BMI) 30.9 Intake & Output: Intake and Output for Last 24 Hours 07/29/25 07/30/25 07/31/25 23:59 23:59 23:59 Intake Total 1920 / 1920 1842 / 1842 540 / 540 Output Total 1350 / 1350 975 / 975 1500 / 1500 Balance 570 / 570 867 / 867 -960 / -960 Lab / Micro Data Attestation: I reviewed the patient's lab results. Lab results narrative: see subjective information 07/31/25 07:08 07/31/25 07:08 Labs: Laboratory Results - last 24 hr 07/30/25 12:05: POC Glucose 175 H 07/30/25 16:45: POC Glucose 152 H 07/30/25 21:22: POC Glucose 185 H 07/30/25 21:41: Urine Color Yellow, Urine Clarity Clear, Urine pH 7.0, Ur Specific [place] 1.005, Urine Protein 30 H, Urine Glucose (UA) 1000 H, Urine Ketones Negative, Urine Occult Blood 10 H, Urine Nitrite Negative, Urine Bilirubin Negative, Urine Urobilinogen Normal, Ur Leukocyte Esterase Negative, Urine RBC 0-5 SEEN, Urine WBC 0-5 SEEN, Ur Squamous Epith Cells 0-5 SEEN, Urine Bacteria 0 SEEN, Urine Mucus 0 SEEN 07/31/25 06:35: POC Glucose 107 H 07/31/25 07:08: WBC 7.9, RBC 3.81 L, Hgb 11.4 L, Hct 35.3 L, MCV 92.7, MCH 29.9, MCHC 32.3, RDW Std Deviation 47.9 H, RDW Coeff of Ruth 14.1, Plt Count 266, MPV 11.4, Immature Gran % (Auto) 0.600, Neut % (Auto) 53.1, Lymph % (Auto) 29.3, [place] % (Auto) 7.8, Eos % (Auto) 8.1 H, Baso % (Auto) 1.1 H, Absolute Neuts (auto) 4.2, Absolute Lymphs (auto) 2.33, Nucleated RBC % 0, Sodium 138, Potassium 4.7, Chloride 101, Carbon Dioxide 25.6, Anion Gap 11, BUN 42 H, Creatinine 2.58 H, Estim Creat Clear Calc 24.56 L, Est GFR (MDRD) Non-Af 24 L, BUN/Creatinine Ratio 16.2, Glucose 126 H, Calcium 9.3 Micro: Microbiology 07/26/25 13:00 Urine, Catheterized Urine Culture - Final Culture exhibits no growth. Physical Exam Const alert Constitutional Narrative: was not able to answer questions of location, year or time. General Appearance: cooperative HEENT normocephalic Eyes Eyes Narrative: pin point pupils but brisk and reactive. Lymph Lymphatic: no lymphadenopathy noted Resp normal respiratory effort, normal air movement and clear to auscultation bilaterally Cardio regular rate Cardio Narrative: loud click noted during asculation from Mechanical valve. Peripheral Pulses: pulses 2+ throughout GI normal to inspection, nondistended, normoactive bowel sounds Extremity normal capillary refill Skin Skin Narrative: scab to the R wrist General Skin Exam: no breakdown Neuro Neuro Narrative: pt has expressive and receptive aphasia. When testing for ataxia, when asked to touch my finger then touch his nose, he pressed harder against my finger. He could follow some commands such as pressing down with his feet and pulling up. Speech: speech abnormal Details: Positive for garbled and other (expressive and receptive aphasia ) Psych cooperative Mood & Affect: flat affect Assessment & Plan Assessment/Plan (1) Debility: (2) Embolic stroke: QUALIFIERS: Precerebral and cerebral artery: unspecified precerebral artery Qualified Code(s): I63.10 - Cerebral infarction due to embolism of unspecified precerebral artery (3) Aphasia: (4) Delirium: (5) Nonrheumatic aortic (valve) stenosis: (6) S/P TAVR (transcatheter aortic valve replacement): (7) Coronary artery disease: QUALIFIERS: Coronary Disease-Associated Artery/Lesion type: [place] artery [place] vs. transplanted heart: [place] heart Associated angina: without angina Qualified Code(s): I25.10 - Atherosclerotic heart disease of [place] coronary artery without angina pectoris (8) History of PTCA: (9) Remote history of stroke: (10) Chronic renal failure (CRF), stage 4 (severe): (11) Benign prostatic hyperplasia: QUALIFIERS: Lower urinary tract symptom presence: symptoms present Lower urinary tract symptom detail: urinary retention Qualified Code(s): N40.1 - Benign prostatic hyperplasia with lower urinary tract symptoms; R33.8 - Other retention of urine (12) Urine retention: (13) Presence of indwelling Caba catheter: (14) Thyroid enlargement: (15) Depression: QUALIFIERS: Depression Type: reactive depression Qualified Code(s): F32.9 - Major depressive disorder, single episode, unspecified (16) Diabetes mellitus, type 2: QUALIFIERS: Diabetes mellitus benefit director insulin use: with benefit director use Diabetes mellitus complication status: with kidney complications Diabetes mellitus complication detail: with chronic kidney disease Chronic kidney disease stage: stage 4 (GFR 15-29) Qualified Code(s): E11.22 - Type 2 diabetes mellitus with diabetic chronic kidney disease; N18.4 - Chronic kidney disease, stage 4 (severe); 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.4 - 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 operator (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) use of insulin (17) Normochromic normocytic anemia: (18) GERD (gastroesophageal reflux disease): QUALIFIERS: Esophagitis presence: without esophagitis Qualified Code(s): K21.9 - Gastro-esophageal reflux disease without esophagitis (19) Hypertension: QUALIFIERS: Hypertension type: primary hypertension Qualified Code(s): I10 - Essential (primary) hypertension (20) Hyperlipidemia: QUALIFIERS: Hyperlipidemia type: unspecified Qualified Code(s): E78.5 - Hyperlipidemia, unspecified (21) Gout: QUALIFIERS: Gout site: unspecified site Gout etiology: unspecified cause Chronicity: chronic Presence of tophus: without tophus Qualified Code(s): M1A.9XX0 - Chronic gout, unspecified, without tophus (tophi) (22) Osteoarthritis: QUALIFIERS: Osteoarthritis location: multiple joints Osteoarthritis type: primary Qualified Code(s): M15.0 - Primary generalized (osteo)arthritis (23) Neuropathy: (24) First degree AV block: (25) Left bundle branch block: (26) Hematuria: QUALIFIERS: Hematuria type: unspecified type Qualified Code(s): R31.9 - Hematuria, unspecified (27) Orthostatic hypotension: (28) Bradycardia: PLAN: Plan 1. Continue therapy 2. Start midodrine 5 mg 3 times daily. Recheck orthostatics this afternoon and also in the AM. Would like to use the lowest effective dose 3. Flomax cause orthostatic hypotension but, with urine retention (already had a urologic procedure earlier this year) he needs to be on this medication for now. 4. Midodrine can cause urine retention however he is severely orthostatic and needs this medication to be able to stand and work with therapy. Will decrease the Amlodipine to 5 mg starting tomorrow 5. Voiding trial in the AM 6. Still restless at night but, better. Continue Zyprexa 5 mg and Trazodone 50 mg at HS. Give both medications at 2200. Has been better in the mornings and more cooperative. 7. CBC with differential and BMP in the AM. 8. Restart Bumex 0.5 mg every 48 hours. On 07/30/25, Dr. Mello Had a lengthy discussion with family about all the diagnoses and what our plan of tx is. She answered all their questions. He is participating well with therapy today and is cooperating. Getting his behavior under control was paramount in him being able to participate with therapy. Voiding trial this AM but, if he fails will need to reinsert and defer further voiding trials to urology. Checking a UA prior to pulling the Caba and it was unremarkable. Dr. Mello suspects he will be able to go home with additional PT/OT. She reinforced with the family that speech is usually the last thing to come back and he will need ongoing therapy at [facility]. His step dtr is retiring in Aug and will be help to assist in his care. Family is very supportive. Charges/Coding Visit Charges Inpatient E&M: 34079 Init Hosp L2
[2025-07-31 13:19] VITALS: BMI 30.9
[2025-07-31 17:17] VITALS: BP 139/55; PULSE 62; RESP 16; TEMP 36.8; O2SAT 97
--- NOTE | 2025-07-31 20:48 | NURSING ---
2039; Notified Dr. Mello pt voided 700 mls of urine. Bladder scan 166 residual. Will continue to monitor pt overnight will place de oliveira if pt is unable to urinate.
[2025-07-31] MEDS: MELATONIN 3 MG TABLET PO (21:12)
[2025-07-31] MEDS: OLANZapine 5 MG/TAB TAB.RAPDIS PO (21:12)
[2025-08-01 05:44] VITALS: BP 148/64; PULSE 54; RESP 16; TEMP 36.9; O2SAT 97
[2025-08-01] MEDS: Lidocaine Jelly 2% 20 ML Syringe (URO-JET) 1 APPLIC TOPICAL (05:58)
[2025-08-01] MEDS: Senna/Docusate Sodium 1 Tablet 2 TABLET PO ×2 (09:16→20:42)
[2025-08-01] MEDS: Heparin Injection (Vial) 5,000 UNIT/ML VIAL 5000 UNIT SC ×2 (09:17→20:43)
[2025-08-01] MEDS: Insulin Glargine-YFGN 100 UNIT/ML Pen 19 UNIT SC (09:26)
[2025-08-01 09:28] VITALS: BP 139/57; PULSE 57
[2025-08-01 12:14] VITALS: BP 128/66
[2025-08-01 12:18] VITALS: BMI 30.9
[2025-08-01 17:02] VITALS: BP 140/61; PULSE 61; RESP 16; TEMP 37.1; O2SAT 96
[2025-08-01 20:16] VITALS: BP 132/61; PULSE 79; RESP 18; TEMP 37.1; O2SAT 95
[2025-08-01] MEDS: OLANZapine 5 MG/TAB TAB.RAPDIS PO (20:43)
[2025-08-01] MEDS: MELATONIN 3 MG TABLET PO (20:43)
[2025-08-02 00:11] VITALS: BMI 30.9
[2025-08-02 05:26] VITALS: BP 155/65; PULSE 63; RESP 16; TEMP 36.5; O2SAT 95
[2025-08-02 06:21] VITALS: BMI 30.6
[2025-08-02] MEDS: Heparin Injection (Vial) 5,000 UNIT/ML VIAL 5000 UNIT SC ×2 (08:21→21:13)
[2025-08-02] MEDS: Senna/Docusate Sodium 1 Tablet 2 TABLET PO ×2 (08:24→21:13)
[2025-08-02] MEDS: Insulin Glargine-YFGN 100 UNIT/ML Pen 19 UNIT SC (09:52)
[2025-08-02 14:16] VITALS: BMI 30.6
[2025-08-02 17:18] VITALS: BP 134/53; PULSE 60; RESP 16; TEMP 36.8; O2SAT 97
[2025-08-02] MEDS: MELATONIN 3 MG TABLET PO (21:13)
[2025-08-02] MEDS: OLANZapine 5 MG/TAB TAB.RAPDIS PO (21:13)
[2025-08-03 00:04] VITALS: BMI 30.6
[2025-08-03 05:45] VITALS: BP 154/60; PULSE 58; RESP 165; TEMP 36.9; O2SAT 100
--- NOTE | 2025-08-03 08:10 | PN_ITS ---
Subjective Subjective Afebrile VSS -blood pressure over the weekend has ranged from 128/66 to 154/60. Heart rate is ranged from 54-79. Maintaining appropriate oxygen saturation on RA Oral intake - FOOD good FLUIDS good The blood sugar record was reviewed. Weight is down approximately 2 pounds since admission. Discussed with nursing - no problems that need addressed. Has been sleeping well at night. The Caba catheter had to be reinserted for bladder scan of 767 with no urge to void. Reviewed the THERAPY notes Medication list reviewed. Has been doing well with the decrease in the Gabapentin. No complaints of leg pain. Still with severe expressive aphasia. Does not appear to be in any distress. Not tachypneic, not coughing, not restless or fidgety. Sleeping well at night now, good appetite. Objective Data Objective Data Vital Signs: Vital Signs Temp Pulse Resp BP Pulse Ox O2 Del Method 98.5 F 58 L 165 H 154/60 H 100 Room Air 08/03/25 05:45 08/03/25 05:45 08/03/25 05:45 08/03/25 05:45 08/03/25 05:45 08/03/25 05:45 Oxygen Delivery Method Room Air Weight: 213 lb 2.992 oz Body Mass Index (BMI) 30.6 Intake & Output: Intake and Output for Last 24 Hours 08/01/25 08/02/25 08/03/25 23:59 23:59 23:59 Intake Total 1040 / 1040 1860 / 2220 760 / 760 Output Total 1150 / 1150 2100 / 2450 950 / 950 Balance -110 / -110 -240 / -230 -190 / -190 Lab / Micro Data 07/31/25 07:08 07/31/25 07:08 Labs: Laboratory Results - last 24 hr 08/02/25 11:39: POC Glucose 161 H 08/02/25 16:36: POC Glucose 194 H 08/02/25 21:09: POC Glucose 188 H 08/03/25 06:37: POC Glucose 122 H Micro: Microbiology 07/26/25 13:00 Urine, Catheterized Urine Culture - Final Culture exhibits no growth. Physical Exam Const alert and no apparent distress General Appearance: cooperative Resp clear to auscultation bilaterally Resp Narrative: No obvious dyspnea with exertion. No cough. Effort and Inspection: Negative for tachypneic Cardio Cardio Narrative: Irregular irregular rhythm with controlled ventricular response GI normal to inspection, nondistended, normoactive bowel sounds, soft to palpation and non-tender GI Narrative: No guarding with palpation Extremity General Extremity: Negative for edema Skin Rashes: no rashes Assessment & Plan Assessment/Plan (1) Debility: (2) Embolic stroke: QUALIFIERS: Precerebral and cerebral artery: unspecified precerebral artery Qualified Code(s): I63.10 - Cerebral infarction due to embolism of unspecified precerebral artery (3) Aphasia: (4) Delirium: PLAN: Resolved with adjustments in the medications. (5) Nonrheumatic aortic (valve) stenosis: (6) S/P TAVR (transcatheter aortic valve replacement): (7) Coronary artery disease: QUALIFIERS: Coronary Disease-Associated Artery/Lesion type: [place] artery [place] vs. transplanted heart: [place] heart Associated angina: without angina Qualified Code(s): I25.10 - Atherosclerotic heart disease of [place] coronary artery without angina pectoris (8) History of PTCA: PLAN: PTCA was in December of 2024.......will need dual antiplatelet agents for 1 year after the procedure. (9) Remote history of stroke: (10) Chronic renal failure (CRF), stage 4 (severe): (11) Benign prostatic hyperplasia: QUALIFIERS: Lower urinary tract symptom presence: symptoms present Lower urinary tract symptom detail: urinary retention Qualified Code(s): N40.1 - Benign prostatic hyperplasia with lower urinary tract symptoms; R33.8 - Other retention of urine (12) Urine retention: PLAN: This is likely multifactorial. He had a procedure with urology and was able to get the Caba out but, now with the stroke he is retaining again. Zyprexa may be contributing to this and also Trazodone. He also has probable autonomic neuropathy........ severe orthostatic hypotension requiring midodrine. Failed a voiding trial so we will discharge with a Caba catheter and have him follow-up with urology postdischarge. (13) Presence of indwelling Caba catheter: (14) Thyroid enlargement: PLAN: Incidental finding on imaging. (15) Depression: QUALIFIERS: Depression Type: reactive depression Qualified Code(s): F32.9 - Major depressive disorder, single episode, unspecified PLAN: Tolerating 25 mg of sertraline so we will increase to 50 mg which is a more therapeutic dose. (16) Diabetes mellitus, type 2: QUALIFIERS: Diabetes mellitus custodial insulin use: with custodial use Diabetes mellitus complication status: with kidney complications D iabetes mellitus complication detail: with chronic kidney disease Chronic kidney disease stage: stage 4 (GFR 15-29) Qualified Code(s): E11.22 - Type 2 diabetes mellitus with diabetic chronic kidney disease; N18.4 - Chronic kidney disease, stage 4 (severe); Z79.4 - longterm (current) use of insulin (17) Neuropathy: (18) Orthostatic hypotension: PLAN: Suspect secondary to autonomic neuropathy plus medication. (19) Bradycardia: PLAN: Plan 1. Continue therapy 2. Add Amaryl 1 mg daily to the current drug regimen. Would like to get him off the sliding scale. Cannot use Glucophage secondary to stage IV chronic renal failure. 3. Hold the dose of Zyprexa tomorrow a.m. to see how he does........ may no longer need this, especially since he is sleeping well at night now. 4. BMP in the AM. Continue the Bumex 0.5 mg Q 48 hours for now. 5. Voiding trial was not successful. Cannot increase Flomax or add medications due to severe orthostatic hypotension requiring midodrine. Will need to follow- up with urology postdischarge and plan on discharging with a Caba catheter. BP is a little high but, he has severe orthostatic hypotension (suspect secondary to autonomic neuropathy) and he is on Midodrine. Charges/Coding Visit Charges Inpatient E&M: 61187 Subs Hosp L1
[2025-08-03] MEDS: Senna/Docusate Sodium 1 Tablet 2 TABLET PO ×2 (08:19→21:50)
[2025-08-03] MEDS: Heparin Injection (Vial) 5,000 UNIT/ML VIAL 5000 UNIT SC ×2 (08:20→21:51)
[2025-08-03] MEDS: Insulin Glargine-YFGN 100 UNIT/ML Pen 19 UNIT SC (08:20)
[2025-08-03 13:29] VITALS: BMI 30.6
[2025-08-03 17:29] VITALS: BP 121/59; PULSE 57; RESP 17; TEMP 36.6; O2SAT 98
[2025-08-03] MEDS: MELATONIN 3 MG TABLET PO (21:50)
[2025-08-03] MEDS: OLANZapine 5 MG/TAB TAB.RAPDIS PO (21:51)
[2025-08-04 01:43] VITALS: BMI 30.6
[2025-08-04 06:00] VITALS: BP 136/62; PULSE 56; RESP 18; TEMP 36.7; O2SAT 96
[2025-08-04 06:20] LABS: Hematocrit 31.3 % (40-54); Hemoglobin 10.5 g/dL (13.0-16.5)
[2025-08-04 07:14] LABS: Anion Gap 10 (5-15); BUN 45 mg/dL (4-19); BUN/Creat Ratio 18.6 RATIO (10-20); Calcium,Total 9.1 mg/dL (7.6-11.0); Carbon Dioxide 23.0 mmol/L (21.0-32.0); Chloride 103 mmol/L (98-108); Estimated Creatinine Clearance 25.93 ml/min (50-250); Glucose 102 mg/dL (70-99); Potassium 4.5 mmol/L (3.3-5.1)
[2025-08-04] MEDS: Senna/Docusate Sodium 1 Tablet 2 TABLET PO ×2 (07:49→21:11)
[2025-08-04] MEDS: Insulin Glargine-YFGN 100 UNIT/ML Pen 19 UNIT SC (07:50)
[2025-08-04] MEDS: Heparin Injection (Vial) 5,000 UNIT/ML VIAL 5000 UNIT SC ×2 (07:50→21:10)
[2025-08-04 14:36] VITALS: BMI 30.6
[2025-08-04 17:03] VITALS: BP 123/51; PULSE 55; RESP 17; TEMP 36.4; O2SAT 97
[2025-08-04] MEDS: MELATONIN 3 MG TABLET PO (21:11)
[2025-08-04] MEDS: OLANZapine 5 MG/TAB TAB.RAPDIS PO (21:11)
[2025-08-05 01:25] VITALS: BMI 30.6
[2025-08-05 06:00] VITALS: BP 138/64; PULSE 59; RESP 16; TEMP 36.7; O2SAT 98; BMI 30.5
[2025-08-05] MEDS: Senna/Docusate Sodium 1 Tablet 2 TABLET PO ×2 (08:25→21:25)
[2025-08-05] MEDS: Insulin Glargine-YFGN 100 UNIT/ML Pen 19 UNIT SC (08:25)
[2025-08-05] MEDS: Heparin Injection (Vial) 5,000 UNIT/ML VIAL 5000 UNIT SC ×2 (08:25→21:25)
--- NOTE | 2025-08-05 08:38 | PCM.PROGNOTE ---
Subjective Subjective Afebrile VSS - Pt continues to have non-symptomatic bradycardia. This morning at 59. denies dizziness Maintaining appropriate oxygen saturation on RA Oral intake - FOOD good FLUIDS good The blood sugar record was reviewed. Weight is is decreased by 3 pounds since admission. BMI 30.6 Discussed with nursing - pt does well once he is up and going for the day but it takes 2 people to get him up, initially, in the morning. Has been sleeping well at night. Reviewed the THERAPY notes Medication list reviewed. No complaints of leg pain since changing Gabapentin dosing. Still with severe expressive aphasia and word salad. He does acknowledge that this happens and sates I cant talk well. I did note some improvement since my last assessment of the pt on admission. Does not appear to be in any distress. Not tachypneic, not coughing, not restless. good appetite. Caba cath is draining clear yellow urine. Output is good with a -910 in the last 24 hours. Objective Data Objective Data Vital Signs: Vital Signs Temp Pulse Resp BP Pulse Ox O2 Del Method 98.0 F 59 L 16 138/64 H 98 Room Air 08/05/25 06:00 08/05/25 06:00 08/05/25 06:00 08/05/25 06:00 08/05/25 06:00 08/05/25 06:00 Oxygen Delivery Method Room Air Weight: 212 lb 15.465 oz Body Mass Index (BMI) 30.5 Intake & Output: Intake and Output for Last 24 Hours 08/03/25 08/04/25 08/05/25 23:59 23:59 23:59 Intake Total 2360 / 2560 1400 / 1500 340 / 340 Output Total 1550 / 2100 900 / 1400 1250 / 1250 Balance 810 / 460 500 / 100 -910 / -910 Lab / Micro Data Attestation: I reviewed the patient's lab results. Lab results narrative: labs yesterday with slight improvement in creatinine from 2.58 to 2.43 08/04/25 06:10 08/04/25 06:10 Labs: Laboratory Results - last 24 hr 08/04/25 11:59: POC Glucose 88 08/04/25 15:45: POC Glucose 96 08/04/25 21:05: POC Glucose 193 H 08/05/25 06:38: POC Glucose 87 Micro: Microbiology 07/26/25 13:00 Urine, Catheterized Urine Culture - Final Culture exhibits no growth. Physical Exam Const alert Constitutional Narrative: was not able to answer questions of location, year or time. General Appearance: cooperative HEENT normocephalic Eyes Eyes Narrative: pin point pupils but brisk and reactive. Lymph Lymphatic: no lymphadenopathy noted Resp normal respiratory effort, normal air movement and clear to auscultation bilaterally Cardio Cardio Narrative: loud click noted during asculation from Mechanical valve. Rate: bradycardia Rhythm: abnormal rhythm Peripheral Pulses: pulses 2+ throughout GI normal to inspection, nondistended, normoactive bowel sounds Extremity normal capillary refill Skin Skin Narrative: scab to the R wrist General Skin Exam: no breakdown Neuro Neuro Narrative: pt has expressive and receptive aphasia. He was able to follow commands appropriately this morning during assessment Speech: speech abnormal Details: Positive for garbled and other (expressive and receptive aphasia ) Psych cooperative Mood & Affect: flat affect Assessment & Plan Assessment/Plan (1) Debility: PLAN: * continue therapies (2) Embolic stroke: QUALIFIERS: Precerebral and cerebral artery: unspecified precerebral artery Qualified Code(s): I63.10 - Cerebral infarction due to embolism of unspecified precerebral artery (3) Aphasia: (4) Delirium: PLAN: Resolved with adjustments in the medications. (5) Nonrheumatic aortic (valve) stenosis: (6) S/P TAVR (transcatheter aortic valve replacement): (7) Coronary artery disease: QUALIFIERS: Associated angina: without angina Coronary Disease-Associated Artery/Lesion type: [place] artery [place] vs. transplanted heart: [place] heart Qualified Code(s): I25.10 - Atherosclerotic heart disease of [place] coronary artery without angina pectoris (8) History of PTCA: PLAN: PTCA was in December of 2024.......will need dual antiplatelet agents for 1 year after the procedure. (9) Remote history of stroke: (10) Chronic renal failure (CRF), stage 4 (severe): (11) Benign prostatic hyperplasia: QUALIFIERS: Lower urinary tract symptom detail: urinary retention Lower urinary tract symptom presence: symptoms present Qualified Code(s): N40.1 - Benign prostatic hyperplasia with lower urinary tract symptoms; R33.8 - Other retention of urine (12) Urine retention: PLAN: This is likely multifactorial. He had a procedure with urology and was able to get the Caba out but, now with the stroke he is retaining again. Zyprexa may be contributing to this and also Trazodone. He also has probable autonomic neuropathy........ severe orthostatic hypotension requiring midodrine. Failed a voiding trial so we will discharge with a Caba catheter and have him follow-up with urology postdischarge. (13) Presence of indwelling Caba catheter: (14) Thyroid enlargement: PLAN: Incidental finding on imaging. (15) Depression: QUALIFIERS: Depression Type: reactive depression Qualified Code(s): F32.9 - Major depressive disorder, single episode, unspecified PLAN: Tolerating 25 mg of sertraline so we will increase to 50 mg which is a more therapeutic dose. Pt is tolerating 50mg well (16) Diabetes mellitus, type 2: QUALIFIERS: Chronic kidney disease stage: stage 4 (GFR 15-29) Diabetes mellitus complication detail: with chronic kidney disease Diabetes mellitus complication status: with kidney complications Diabetes mellitus senior care insulin use: with keno terminal operator use Qualified Code(s): E11.22 - Type 2 diabetes mellitus with diabetic chronic kidney disease; N18.4 - Chronic kidney disease, stage 4 (severe); Z79.4 - [facility] (current) use of insulin (17) Normochromic normocytic anemia: (18) GERD (gastroesophageal reflux disease): QUALIFIERS: Esophagitis presence: without esophagitis Qualified Code(s): K21.9 - Gastro-esophageal reflux disease without esophagitis (19) Hypertension: QUALIFIERS: Hypertension type: primary hypertension Qualified Code(s): I10 - Essential (primary) hypertension (20) Hyperlipidemia: QUALIFIERS: Hyperlipidemia type: unspecified Qualified Code(s): E78.5 - Hyperlipidemia, unspecified (21) Gout: QUALIFIERS: Chronicity: chronic Gout etiology: unspecified cause Gout site: unspecified site Presence of tophus: without tophus Qualified Code(s): M1A.9XX0 - Chronic gout, unspecified, without tophus (tophi) (22) Osteoarthritis: QUALIFIERS: Osteoarthritis location: multiple joints Osteoarthritis type: primary Qualified Code(s): M15.0 - Primary generalized (osteo)arthritis (23) Neuropathy: (24) First degree AV block: (25) Left bundle branch block: (26) Hematuria: QUALIFIERS: Hematuria type: unspecified type Qualified Code(s): R31.9 - Hematuria, unspecified (27) Orthostatic hypotension: PLAN: Suspect secondary to autonomic neuropathy plus medication. (28) Bradycardia: PLAN: Plan 1. Continue therapy 2. Start midodrine 5 mg 3 times daily. Recheck orthostatics afternoon and also in the AM. Would like to use the lowest effective dose 3. Flomax cause orthostatic hypotension but, with urine retention (already had a urologic procedure earlier this year) he needs to be on this medication for now. 4. Midodrine can cause urine retention however he is severely orthostatic and needs this medication to be able to stand and work with therapy. Will decrease the Amlodipine to 5 mg starting tomorrow 5. Voiding trial in the AM 6. Improvement noted in nighttime sleep. Continue Zyprexa 5 mg and Trazodone 50 mg at HS. Give both medications at 2200. Has been better in the mornings and more cooperative. 8. Bumex 0.5 mg every 48 hours. On 07/30/25, Dr. Mello Had a lengthy discussion with family about all the diagnoses and what our plan of tx is. She answered all their questions. He is participating well with therapy today and is cooperating. Getting his behavior under control was paramount in him being able to participate with therapy. Voiding trial this AM but, if he fails will need to reinsert and defer further voiding trials to urology. Checking a UA prior to pulling the Caba and it was unremarkable. Dr. Mello suspects he will be able to go home with additional PT/OT. She reinforced with the family that speech is usually the last thing to come back and he will need ongoing therapy at [place]. His step dtr is retiring in Aug and will be help to assist in his care. Family is very supportive. Charges/Coding Visit Charges Inpatient E&M: 41192 Subs Hosp L2
[2025-08-05 14:46] VITALS: BMI 30.5
[2025-08-05 17:31] VITALS: BP 138/56; PULSE 62; RESP 16; TEMP 36.7; O2SAT 98
[2025-08-05 21:15] VITALS: PULSE 62; RESP 16; O2SAT 98
[2025-08-05] MEDS: MELATONIN 3 MG TABLET PO (21:26)
[2025-08-05] MEDS: OLANZapine 5 MG/TAB TAB.RAPDIS PO (21:27)
[2025-08-05 21:35] VITALS: BMI 30.5
[2025-08-06 05:48] VITALS: BP 125/54; PULSE 60; TEMP 36.7; O2SAT 94
[2025-08-06 06:00] VITALS: BP 125/54; PULSE 60; TEMP 36.7; O2SAT 94
[2025-08-06] MEDS: Senna/Docusate Sodium 1 Tablet 2 TABLET PO ×2 (08:05→20:33)
[2025-08-06] MEDS: Heparin Injection (Vial) 5,000 UNIT/ML VIAL 5000 UNIT SC ×2 (08:05→20:32)
[2025-08-06] MEDS: Insulin Glargine-YFGN 100 UNIT/ML Pen 19 UNIT SC (08:15)
[2025-08-06 08:26] VITALS: BP 138/51; PULSE 66
[2025-08-06 10:03] VITALS: BMI 30.5
--- NOTE | 2025-08-06 10:35 | PN_ITS ---
Subjective Subjective Alejandro was seen on team rounds today. Family was present in the room. All questions were answered to their satisfaction. Afebrile VSS -heart rate for the past 24 hours has ranged from 59-66. Blood pressure has ranged from 125/54 to 138/64. Orthostatics today showed a blood pressure of 122/69 lying down with a heart rate of 54. Standing up the blood pressure was 91/37 with a pulse rate of 68. He denied lightheadedness. He does not get diaphoretic and he has no nausea. Maintaining appropriate oxygen saturation on RA Oral intake - FOOD good FLUIDS good Blood sugar record was reviewed and blood sugars are very well-controlled with no hypoglycemia. FBS today was 85. Rare BS > 150. Discussed with nursing - no problems that need addressed Reviewed the THERAPY notes Medication list reviewed. The blood sugar record was reviewed. Blood sugars are well-controlled with no hypoglycemia. The fastings are ranging from 85-126 over the past 48 hours. Very alert and cooperative today. Never refuses therapy. Sleeping well at night consistently now. Tolerating discontinuation of the morning dose of Zyprexa with no recurrent behaviors. He denies pain. He is able to get more speech out now, especially with family but still having severe expressive aphasia when talking with me. He does not appear to be in any discomfort. He is not tachypneic, not coughing and has no conversational dyspnea. Tolerating therapy with no increase in the respiratory rate and no respiratory distress. Objective Data Objective Data Vital Signs: Vital Signs Temp Pulse Resp BP Pulse Ox O2 Del Method 98.1 F 66 16 138/51 H 94 Room Air 08/06/25 06:00 08/06/25 08:26 08/05/25 21:15 08/06/25 08:26 08/06/25 06:00 08/06/25 06:00 Oxygen Delivery Method Room Air Weight: 212 lb 15.465 oz Body Mass Index (BMI) 30.5 Intake & Output: Intake and Output for Last 24 Hours 08/04/25 08/05/25 08/06/25 23:59 23:59 23:59 Intake Total 1400 / 1500 1420 / 1420 560 / 560 Output Total 900 / 1400 2150 / 2800 1425 / 1425 Balance 500 / 100 -730 / -1380 -865 / -865 Lab / Micro Data 08/04/25 06:10 08/04/25 06:10 Labs: Laboratory Results - last 24 hr 08/05/25 11:21: POC Glucose 97 08/05/25 16:22: POC Glucose 123 H 08/05/25 19:52: POC Glucose 155 H 08/05/25 21:08: POC Glucose 108 H 08/06/25 06:09: POC Glucose 85 Micro: Microbiology 07/26/25 13:00 Urine, Catheterized Urine Culture - Final Culture exhibits no growth. Physical Exam Const alert and no apparent distress General Appearance: cooperative Resp normal respiratory effort and normal air movement Resp Narrative: No cough Effort and Inspection: Negative for tachypneic or respiratory distress Cardio regular rate, regular rhythm, no rub and no gallops Cardio Narrative: 1-2/6 ELISHA at the second RICS without radiation. No ectopy. GI normal to inspection, nondistended, normoactive bowel sounds and soft to palpation Extremity no calf tenderness and no pedal edema Skin Rashes: no rashes Neuro Neuro Narrative: No behavior issues. Making good progress with therapy, getting stronger. Still needs cuing to place his hands on the FWW and the chair when going to sit. Tends to park the walker to the side when trying to sit......aprks the FWW and then steps over to the area in front of the chair. Reaching back and backing up to the chair 50% of the time. Walking up to 93' with a FWW with reciprocal stepping....... decreased step height and length however no loss of balance today. Requiring only minimal assistance with bathing, upper body dressing, lower body dressing. He has contact guard assist for toilet transfer and toileting. Feeding himself after set up. Cooperative with therapyt. Interacting with staff and attempting to talk more. Not getting frustrated as much Psych Psych Narrative: Sleeping through the night. No agitation or behaviors noted. Good appetite. Very cooperative with staff. Pleasant and smiling. Assessment & Plan Assessment/Plan (1) Debility: (2) Embolic stroke: QUALIFIERS: Precerebral and cerebral artery: unspecified precerebral artery Qualified Code(s): I63.10 - Cerebral infarction due to embolism of unspecified precerebral artery (3) Aphasia: (4) Delirium: (5) Nonrheumatic aortic (valve) stenosis: (6) S/P TAVR (transcatheter aortic valve replacement): (7) Coronary artery disease: QUALIFIERS: Coronary Disease-Associated Artery/Lesion type: [place] artery [place] vs. transplanted heart: [place] heart Associated angina: without angina Qualified Code(s): I25.10 - Atherosclerotic heart disease of [place] coronary artery without angina pectoris (8) History of PTCA: (9) Remote history of stroke: (10) Chronic renal failure (CRF), stage 4 (severe): (11) Benign prostatic hyperplasia: QUALIFIERS: Lower urinary tract symptom presence: symptoms present Lower urinary tract symptom detail: urinary retention Qualified Code(s): N40.1 - Benign prostatic hyperplasia with lower urinary tract symptoms; R33.8 - Other retention of urine (12) Urine retention: (13) Presence of indwelling Caba catheter: (14) Depression: QUALIFIERS: Depression Type: reactive depression Qualified Code(s): F32.9 - Major depressive disorder, single episode, unspecified (15) Diabetes mellitus, type 2: QUALIFIERS: Diabetes mellitus moth exterminator insulin use: with jail use Diabetes mellitus complication status: with kidney complications D iabetes mellitus complication detail: with chronic kidney disease Chronic kidney disease stage: stage 4 (GFR 15-29) Qualified Code(s): E11.22 - Type 2 diabetes mellitus with diabetic chronic kidney disease; N18.4 - Chronic kidney disease, stage 4 (severe); Z79.4 - manager intermediate (current) use of insulin (16) Normochromic normocytic anemia: (17) GERD (gastroesophageal reflux disease): QUALIFIERS: Esophagitis presence: without esophagitis Qualified Code(s): K21.9 - Gastro-esophageal reflux disease without esophagitis (18) Hypertension: QUALIFIERS: Hypertension type: primary hypertension Qualified Code(s): I10 - Essential (primary) hypertension (19) Hyperlipidemia: QUALIFIERS: Hyperlipidemia type: unspecified Qualified Code(s): E 78.5 - Hyperlipidemia, unspecified (20) Neuropathy: (21) Orthostatic hypotension: (22) Bradycardia: PLAN: Plan 1. Continue therapy 2. Check orthostatic vital signs today 3. Discontinue sliding scale insulin continue Jardiance 10 mg daily and Amaryl 1 mg with breakfast. Before. Continue midodrine 5 mg 3 times daily. 4. Continue Zyprexa 5 mg at at bedtime plus trazodone 50 mg. In a few days we will try decreasing Zyprexa down to 2.5 mg at at bedtime and continuing trazodone. 5. Continue FLomax 0.4 mg once a day. Plan to DC with a Caba catheter (failed voiding trial) and defer to urology. Will not tolerate increase in Flomax of other medications to treat BPH due to severe orthostatic hypotension requiring Midodrine. 6. Family will be coming in for family training/shared care next Sunday to see if they will be able to manage the assistance he needs if he were to go home at discharge. 7. BS control excellent but, some BS's in the 80's and at this age with all his comorbidities no need to control this tightly. Will decrease the AM Glargine to 15 units. 8. Still orthostatic on midodrine 5 mg 3 times daily but asymptomatic and the systolic is above 90 even with standing so will continue with midodrine 5 mg 3 times daily. 9. Kidney function is stable and he has no dyspnea on exertion or orthopnea so we will continue with Bumex only every 48 hours. Charges/Coding Visit Charges Inpatient E&M: 26288 Subs Hosp L2
[2025-08-06 10:38] VITALS: BP 122/69; BP 131/71; BP 91/37; PULSE 53; PULSE 54; PULSE 68
--- NOTE | 2025-08-06 12:57 | CASEMGMT ---
Social Work IDT met with patient, and stepson for Team meeting. Discussed patient's progress in PT/OT/ST/SN/MD/CLOTH DESIZING RANGE OPERATOR CHIEF. Educated to [facility] insurance with [employer] 08/12 and continued stay is not guaranteed with each review. Pt is improving but still needs 24/ hands on care. SW inquired about DC plan. Family would like to take pt home. Son inquired about HHC. SW educated to skilled vs nonskilled. SW to coordinate skilled and DME needs, but provided son with home care and home health aides teacher list for family to contact as that is an OOP cost. Therapy scheduled training with on 08/11. SW to follow. Anahi Valdes MANAGER OF INFORMATION ENGLISH LANGUAGE LEARNER TEACHER
[2025-08-06 17:04] VITALS: BP 137/56; PULSE 53; RESP 16; TEMP 36.8; O2SAT 96
[2025-08-06 20:12] VITALS: BMI 30.5
[2025-08-06 20:16] VITALS: O2SAT 96
[2025-08-06] MEDS: MELATONIN 3 MG TABLET PO (20:33)
[2025-08-06] MEDS: OLANZapine 5 MG/TAB TAB.RAPDIS PO (20:34)
[2025-08-07 06:00] VITALS: BP 150/52; PULSE 60; RESP 16; TEMP 37.1; O2SAT 95
[2025-08-07] MEDS: Senna/Docusate Sodium 1 Tablet 2 TABLET PO ×2 (07:42→20:53)
[2025-08-07 08:02] VITALS: BP 168/66; PULSE 70
[2025-08-07] MEDS: Heparin Injection (Vial) 5,000 UNIT/ML VIAL 5000 UNIT SC ×2 (08:50→20:53)
[2025-08-07] MEDS: Insulin Glargine-YFGN 100 UNIT/ML Pen 15 UNIT SC (08:50)
[2025-08-07 11:50] VITALS: BP 133/65
[2025-08-07 12:51] VITALS: BMI 30.5
[2025-08-07 17:00] VITALS: BP 100/58; PULSE 54; RESP 17; TEMP 36.6; O2SAT 96
[2025-08-07] MEDS: OLANZapine 5 MG/TAB TAB.RAPDIS PO (20:53)
[2025-08-07] MEDS: MELATONIN 3 MG TABLET PO (20:54)
[2025-08-08 06:00] VITALS: BP 141/55; PULSE 57; RESP 16; TEMP 37; O2SAT 95; BMI 30.8
[2025-08-08] MEDS: Senna/Docusate Sodium 1 Tablet 2 TABLET PO ×2 (08:37→22:22)
[2025-08-08] MEDS: Heparin Injection (Vial) 5,000 UNIT/ML VIAL 5000 UNIT SC ×2 (08:38→22:22)
[2025-08-08] MEDS: Insulin Glargine-YFGN 100 UNIT/ML Pen 15 UNIT SC (08:43)
[2025-08-08 08:48] VITALS: BP 112/48; PULSE 61
[2025-08-08 10:56] VITALS: BMI 30.8
[2025-08-08 12:44] VITALS: BP 133/52; PULSE 53
[2025-08-08 17:46] VITALS: BP 142/53; PULSE 52; RESP 16; TEMP 36.9; O2SAT 98
[2025-08-08] MEDS: OLANZapine 5 MG/TAB TAB.RAPDIS PO (22:21)
[2025-08-08] MEDS: MELATONIN 3 MG TABLET PO (22:22)
[2025-08-09 05:58] VITALS: BP 133/53; PULSE 53; RESP 18; TEMP 36.6; O2SAT 93
[2025-08-09] MEDS: Senna/Docusate Sodium 1 Tablet 2 TABLET PO (07:28)
[2025-08-09] MEDS: Heparin Injection (Vial) 5,000 UNIT/ML VIAL 5000 UNIT SC ×2 (07:30→21:44)
[2025-08-09] MEDS: Insulin Glargine-YFGN 100 UNIT/ML Pen 15 UNIT SC (07:30)
[2025-08-09 07:41] VITALS: BP 153/64; PULSE 60
[2025-08-09 11:34] VITALS: BP 132/59; PULSE 56
[2025-08-09 11:35] VITALS: BMI 30.8
[2025-08-09 18:00] VITALS: BP 138/57; PULSE 56; RESP 16; TEMP 36.5; O2SAT 98
[2025-08-09 21:40] VITALS: BP 130/57; PULSE 53; RESP 16; TEMP 37.1; O2SAT 99
[2025-08-09] MEDS: MELATONIN 3 MG TABLET PO (21:46)
[2025-08-09] MEDS: OLANZapine 5 MG/TAB TAB.RAPDIS PO (21:46)
[2025-08-10 03:56] VITALS: BMI 30.8
[2025-08-10 06:00] VITALS: BP 138/63; PULSE 59; RESP 16; TEMP 36.6; O2SAT 94
[2025-08-10 08:07] VITALS: BP 118/60; PULSE 62
[2025-08-10] MEDS: Insulin Glargine-YFGN 100 UNIT/ML Pen 15 UNIT SC (09:11)
[2025-08-10] MEDS: Heparin Injection (Vial) 5,000 UNIT/ML VIAL 5000 UNIT SC ×2 (09:11→21:02)
[2025-08-10 11:27] VITALS: BP 124/50; PULSE 87
[2025-08-10 12:00] VITALS: BMI 30.8
--- NOTE | 2025-08-10 12:19 | PCM.PROGNOTE ---
Subjective Subjective Afebrile VSS -blood pressure over the weekend has ranged from 112/48 to 153/64 but that was only once. Majority of the blood pressures are controlled. Heart rate has ranged from 50 to to 87. He denies lightheadedness. Maintaining appropriate oxygen saturation on RA Oral intake - FOOD good FLUIDS good Discussed with nursing - no problems that need addressed Reviewed the THERAPY notes Medication list reviewed. Objective Data Objective Data Vital Signs: Vital Signs Temp Pulse Resp BP Pulse Ox O2 Del Method 97.8 F 87 16 124/50 H 94 Room Air 08/10/25 06:00 08/10/25 11:27 08/10/25 06:00 08/10/25 11:27 08/10/25 06:00 08/10/25 06:00 Oxygen Delivery Method Room Air Weight: 214 lb 15.211 oz Body Mass Index (BMI) 30.8 Intake & Output: Intake and Output for Last 24 Hours 08/08/25 08/09/25 08/10/25 23:59 23:59 23:59 Intake Total 1805 / 1805 2460 / 2460 200 / 200 Output Total 1615 / 1615 2250 / 2250 750 / 750 Balance 190 / 190 210 / 210 -550 / -550 Lab / Micro Data 08/04/25 06:10 08/04/25 06:10 Labs: Laboratory Results - last 24 hr 08/09/25 16:52: POC Glucose 88 08/10/25 05:57: POC Glucose 93 Micro: Microbiology 07/26/25 13:00 Urine, Catheterized Urine Culture - Final Culture exhibits no growth. Physical Exam Const alert and no apparent distress Constitutional Narrative: talkative and appropriate. Very polite. good eye contact with me. General Appearance: cooperative Resp normal respiratory effort and normal air movement Resp Narrative: No cough Effort and Inspection: Negative for tachypneic or respiratory distress Cardio regular rate, regular rhythm, no rub and no gallops Cardio Narrative: 1-2/6 ELISHA at the second RICS without radiation. No ectopy. GI normal to inspection, nondistended, normoactive bowel sounds and soft to palpation Extremity no calf tenderness and no pedal edema Skin Rashes: no rashes Psych Psych Narrative: Sleeping through the night. No agitation or behaviors noted. Good appetite. Very cooperative with staff. Pleasant and smiling. Assessment & Plan Assessment/Plan (1) Debility: (2) Embolic stroke: QUALIFIERS: Precerebral and cerebral artery: unspecified precerebral artery Qualified Code(s): I63.10 - Cerebral infarction due to embolism of unspecified precerebral artery (3) Aphasia: (4) Delirium: (5) Nonrheumatic aortic (valve) stenosis: (6) S/P TAVR (transcatheter aortic valve replacement): (7) Coronary artery disease: QUALIFIERS: Coronary Disease-Associated Artery/Lesion type: [place] artery [place] vs. transplanted heart: [place] heart Associated angina: without angina Qualified Code(s): I25.10 - Atherosclerotic heart disease of [place] coronary artery without angina pectoris (8) History of PTCA: (9) Remote history of stroke: (10) Chronic renal failure (CRF), stage 4 (severe): (11) Benign prostatic hyperplasia: QUALIFIERS: Lower urinary tract symptom presence: symptoms present Lower urinary tract symptom detail: urinary retention Qualified Code(s): N40.1 - Benign prostatic hyperplasia with lower urinary tract symptoms; R33.8 - Other retention of urine (12) Urine retention: (13) Presence of indwelling Caba catheter: (14) Thyroid enlargement: (15) Depression: QUALIFIERS: Depression Type: reactive depression Qualified Code(s): F32.9 - Major depressive disorder, single episode, unspecified (16) Diabetes mellitus, type 2: QUALIFIERS: Diabetes mellitus group home insulin use: with group home use Diabetes mellitus complication status: with kidney complications Diabetes mellitus complication detail: with chronic kidney disease Chronic kidney disease stage: stage 4 (GFR 15-29) Qualified Code(s): E11.22 - Type 2 diabetes mellitus with diabetic chronic kidney disease; N18.4 - Chronic kidney disease, stage 4 (severe); Z79.4 - long-term (current) use of insulin (17) Normochromic normocytic anemia: (18) GERD (gastroesophageal reflux disease): QUALIFIERS: Esophagitis presence: without esophagitis Qualified Code(s): K21.9 - Gastro-esophageal reflux disease without esophagitis (19) Hypertension: QUALIFIERS: Hypertension type: primary hypertension Qualified Code(s): I10 - Essential (primary) hypertension (20) Hyperlipidemia: QUALIFIERS: Hyperlipidemia type: unspecified Qualified Code(s): E78.5 - Hyperlipidemia, unspecified (21) Gout: QUALIFIERS: Gout site: unspecified site Gout etiology: unspecified cause Chronicity: chronic Presence of tophus: without tophus Qualified Code(s): M1A.9XX0 - Chronic gout, unspecified, without tophus (tophi) (22) Osteoarthritis: QUALIFIERS: Osteoarthritis location: multiple joints Osteoarthritis type: primary Qualified Code(s): M15.0 - Primary generalized (osteo)arthritis (23) Neuropathy: (24) First degree AV block: (25) Left bundle branch block: (26) Hematuria: QUALIFIERS: Hematuria type: unspecified type Qualified Code(s): R31.9 - Hematuria, unspecified (27) Orthostatic hypotension: (28) Bradycardia: PLAN: Plan 1. Continue therapy 2. Check a CBC and a BMP in the a.m. 3. is coming in for shared care tomorrow to see if she will be able to manage the amount of assistance he will need to go home. Has been making very good progress and no behavioral issues since a few days after admission.
[2025-08-10] MEDS: CARBOXYMETHYLCELLULOSE SODIUM 1 DRP DROPS OPHTHALMIC (14:16)
[2025-08-10 17:58] VITALS: BP 108/57; PULSE 55; RESP 16; TEMP 36.6; O2SAT 96
[2025-08-10 21:00] VITALS: PULSE 55; RESP 16; O2SAT 96; BMI 30.8
[2025-08-10] MEDS: OLANZapine 5 MG/TAB TAB.RAPDIS PO (21:02)
[2025-08-10] MEDS: Senna/Docusate Sodium 1 Tablet 2 TABLET PO (21:02)
[2025-08-10] MEDS: MELATONIN 3 MG TABLET PO (21:02)
[2025-08-11 05:43] LABS: Hematocrit 32.3 % (40-54); Hemoglobin 10.5 g/dL (13.0-16.5); Mean Corp Hgb Conc 32.5 g/dL (32-36); Mean Corpuscular Volume 93.4 fL (80-94); Mean Platelet Vol. 11.1 fl (6.2-12.0); Platelet Count 173 K/mm3 (150-450); RBC Distribution Width CV 14.6 % (11.6-14.6); RBC Distribution Width SD 49.8 fl (35.1-43.9); Red Blood Count 3.46 M/mm3 (4.6-6.2); White Blood Count 8.9 K/mm3 (4.4-11.0)
[2025-08-11 06:00] VITALS: BP 171/60; PULSE 57; RESP 16; TEMP 36.6; O2SAT 97
[2025-08-11 06:18] LABS: Anion Gap 11 (5-15); BUN 53 mg/dL (4-19); BUN/Creat Ratio 21.7 RATIO (10-20); Calcium,Total 9.0 mg/dL (7.6-11.0); Carbon Dioxide 21.8 mmol/L (21.0-32.0); Chloride 107 mmol/L (98-108); Estimated Creatinine Clearance 25.71 ml/min (50-250); Glucose 83 mg/dL (70-99); Potassium 4.8 mmol/L (3.3-5.1)
[2025-08-11] MEDS: Heparin Injection (Vial) 5,000 UNIT/ML VIAL 5000 UNIT SC ×2 (08:03→19:37)
--- NOTE | 2025-08-11 10:24 | CASEMGMT ---
Social Work SW spoke with pt, and NICOLE in room after therapy training. SW inquired to how she felt the training went in regards to being able to care for pt at home. a little hesitant with her body language, but did note pt is doing better than she anticipated. NICOLE agreed pt is progressing well and voiced the plan would be to take pt home. Family expressed awareness to pt needing 24/7 care and cannot be left alone. SW offered to hire ORGAN RECOVERY COORDINATOR to assist with showers and to help prevent caregiver burn out with . NICOLE stated well you [referring to pt's ] helped OT with a shower today and did fine. SW reiterated that the goal for ORGAN RECOVERY COORDINATOR is to allow to perform other duties, self-care, and not be the sole caregiver, allowing to get enough rest too. NICOLE expressed understanding. NICOLE inquired about HHC. SW answered questions and educated to skilled HHC vs private duty agencies and this worker's assistance with skilled HHC and any DME, and family contacts private duty caregivers. noted she has the resource lists from this worker and family can begin contacting agencies. Family appreciative will be present at next Team meeting and await outcome of insurance update. SW will continue to follow. Anahi Valdes MACHINE CLOTH EXAMINER SUPPRESSION CREW LEADER
--- NOTE | 2025-08-11 13:29 | PN_ITS ---
Subjective Subjective Afebrile VSS -blood pressures for the most part controlled. Occasional high blood pressure however he has orthostatic hypotension and is on midodrine so will need to tolerate some high blood pressure to prevent the big drop in the blood pressure when he stands. He denies lightheadedness. The heart rate has ranged from 55-87 over the past 24 hours. Maintaining appropriate oxygen saturation on RA Oral intake - FOOD good FLUIDS good Weight is stable. Discussed with nursing -he is complaining to nursing that his throat is sore and he has a little cough. The cough is dry. Reviewed the THERAPY notes Medication list reviewed. All lab drawn this morning was personally reviewed. White blood cell count is normal at 8.9. Hemoglobin is stable at 10.5. Platelets are within normal limits. Sodium is 140 and the potassium is 4.8. The BUN is 53 with a stable creatinine of 2.46. GFR is 25 which is consistent with his chronic diagnosis of stage IV chronic renal failure. FBS today was 83. Calcium is within normal limits. Review of systems is extremely limited secondary to severe expressive aphasia. He does have a sore throat and a little bit of cough but he denies shortness of breath. He has been afebrile. He does not appear to be in any distress and he did not cough the entire time I was in the room. He has a little runny nose per his family. Objective Data Objective Data Vital Signs: Vital Signs Temp Pulse Resp BP Pulse Ox O2 Del Method 97.8 F 57 L 16 171/60 H 97 Room Air 08/11/25 06:00 08/11/25 06:00 08/11/25 06:00 08/11/25 06:00 08/11/25 06:00 08/11/25 06:00 Oxygen Delivery Method Room Air Weight: 214 lb 15.211 oz Body Mass Index (BMI) 30.8 Intake & Output: Intake and Output for Last 24 Hours 08/09/25 08/10/25 08/11/25 23:59 23:59 23:59 Intake Total 2460 / 2460 1300 / 1300 610 / 610 Output Total 2250 / 2250 1575 / 1575 1375 / 1375 Balance 210 / 210 -275 / -275 -765 / -765 Lab / Micro Data 08/11/25 05:30 08/11/25 05:30 Labs: Laboratory Results - last 24 hr 08/10/25 15:59: POC Glucose 104 08/11/25 05:30: WBC 8.9, RBC 3.46 L, Hgb 10.5 L, Hct 32.3 L, MCV 93.4, MCH 30.3, MCHC 32.5, RDW Std Deviation 49.8 H, RDW Coeff of Ruth 14.6, Plt Count 173, MPV 11.1, Sodium 140, Potassium 4.8, Chloride 107, Carbon Dioxide 21.8, Anion Gap 11, BUN 53 H, Creatinine 2.46 H, Estim Creat Clear Calc 25.71 L, Est GFR (MDRD) Non-Af 25 L, BUN/Creatinine Ratio 21.7 H, Glucose 83, Calcium 9.0 08/11/25 06:08: POC Glucose 76 Micro: Microbiology 07/26/25 13:00 Urine, Catheterized Urine Culture - Final Culture exhibits no growth. Physical Exam Const alert and no apparent distress Constitutional Narrative: Pleasant General Appearance: cooperative HEENT HEENT Narrative: Buccal mucosa is dry. There are no exudates in the posterior pharynx. There is some mild erythema which I suspect is secondary to postnasal drip. Neck Neck Narrative: No cervical adenopathy. Resp normal respiratory effort and clear to auscultation bilaterally Resp Narrative: No cough with deep breathing. Effort and Inspection: Negative for tachypneic Cardio regular rate, regular rhythm and no gallops GI normal to inspection, nondistended, normoactive bowel sounds, soft to palpation and non-tender GI Narrative: Having regular bowel movements. Extremity Extremity Narrative: Trace of edema in the ankles. Likely because he sits in the recliner with his legs dependent most of the day. ZANE hose are in place....... Skin Rashes: no rashes Neuro Neuro Narrative: Still with severe expressive aphasia. Able to follow simple commands. Very cooperative now. Family came in for shared care today. Psych Psych Narrative: Sleeping well at night, pleasant, with good appetite. No behavioral issues. The a.m. dose of Zyprexa was discontinued last week. Assessment & Plan Assessment/Plan (1) Debility: (2) Embolic stroke: QUALIFIERS: Precerebral and cerebral artery: unspecified precerebral artery Qualified Code(s): I63.10 - Cerebral infarction due to embolism of unspecified precerebral artery (3) Aphasia: (4) Chronic renal failure (CRF), stage 4 (severe): (5) Benign prostatic hyperplasia: QUALIFIERS: Lower urinary tract symptom presence: symptoms present Lower urinary tract symptom detail: urinary retention Qualified Code(s): N40.1 - Benign prostatic hyperplasia with lower urinary tract symptoms; R33.8 - Other retention of urine (6) Urine retention: PLAN: suspect this is due to autonomic neuropathy. He had a procedure on the prostate this year and he is still retaining. May need to always have a Caba because of this. He has a urologist he follows up with. (7) Presence of indwelling Caba catheter: PLAN: urine in the Caba tubing today is pale yellow and clear. (8) Depression: QUALIFIERS: Depression Type: reactive depression Qualified Code(s): F32.9 - Major depressive disorder, single episode, unspecified PLAN: He is eating well and sleeping well now. He never refuses therapy and he is very pleasant. No agitation. He is currently on 25 mg of sertraline daily and I see no need to change this. (9) Diabetes mellitus, type 2: QUALIFIERS: Diabetes mellitus terminal computer operator insulin use: with terminal computer operator use Diabetes mellitus complication status: with kidney complications D iabetes mellitus complication detail: with chronic kidney disease Chronic kidney disease stage: stage 4 (GFR 15-29) Qualified Code(s): E11.22 - Type 2 diabetes mellitus with diabetic chronic kidney disease; N18.4 - Chronic kidney disease, stage 4 (severe); Z79.4 - buttermaker helper (current) use of insulin PLAN: Well-controlled on Jardiance 10 mg daily and Amaryl 1 mg daily. (10) Normochromic normocytic anemia: PLAN: Chronic normochromic normocytic anemia most likely related to stage IV chronic renal failure. (11) GERD (gastroesophageal reflux disease): QUALIFIERS: Esophagitis presence: without esophagitis Qualified Code(s): K21.9 - Gastro-esophageal reflux disease without esophagitis PLAN: Controlled with lansoprazole 15 mg daily (12) Hypertension: QUALIFIERS: Hypertension type: primary hypertension Qualified Code(s): I10 - Essential (primary) hypertension PLAN: At times mildly elevated but, we are tolerating this because he has autonomic neuropathy with orthostatic hypotension and on the current regimen of amlodipine 5 mg daily and midodrine 5 mg 3 times daily the blood pressures are for the most part controlled with no dizziness or lightheadedness. (13) Neuropathy: PLAN: Gabapentin has been weaned down to 100 mg BID with no complaints of leg pain. (14) Orthostatic hypotension: PLAN: More likely than not secondary to autonomic neuropathy. (15) Bradycardia: PLAN: Plan 1. Continue therapy 2. 2 sprays of nasal saline 3 times daily in each nostril 3. Throat lozenges as needed 4. Decrease the olanzapine to 2.5 mg at bedtime. Continue 2.5 mg every 12 hours as needed agitation. Charges/Coding Visit Charges Inpatient E&M: 56833 Subs Hosp L1
[2025-08-11] MEDS: Sodium Chloride 0.65% 1 SPRAY SPRAY.BTL 2 SPRAY NASAL ×2 (14:00→19:37)
[2025-08-11 15:21] VITALS: BP 105/50; BP 132/50; BP 133/53; PULSE 56; PULSE 57; PULSE 74
[2025-08-11 15:22] VITALS: BMI 30.8
[2025-08-11 18:00] VITALS: BP 134/54; PULSE 54; RESP 17; TEMP 36.9; O2SAT 98
[2025-08-11 19:35] VITALS: BMI 30.8
[2025-08-11] MEDS: MELATONIN 3 MG TABLET PO (19:36)
[2025-08-11] MEDS: Senna/Docusate Sodium 1 Tablet 2 TABLET PO (19:36)
[2025-08-11 22:00] VITALS: PULSE 54; RESP 17; O2SAT 98
[2025-08-12 06:00] VITALS: BP 146/80; PULSE 74; RESP 16; TEMP 36.5; O2SAT 95
[2025-08-12] MEDS: Sodium Chloride 0.65% 1 SPRAY SPRAY.BTL 2 SPRAY NASAL ×3 (06:15→21:22)
[2025-08-12] MEDS: Senna/Docusate Sodium 1 Tablet 2 TABLET PO ×2 (08:26→21:23)
[2025-08-12] MEDS: Heparin Injection (Vial) 5,000 UNIT/ML VIAL 5000 UNIT SC ×2 (08:27→21:23)
--- NOTE | 2025-08-12 10:15 | PCM.PROGNOTE ---
Subjective Subjective Afebrile VSS -blood pressure is slightly elevated today at 146/80. Per Dr. Mello: He has orthostatic hypotension and is on midodrine so will need to tolerate some high blood pressure to prevent the big drop in the blood pressure when he stands. He denies lightheadedness. The heart rate has ranged in the 70's. over the past 24 hours. Maintaining appropriate oxygen saturation on RA at 95% Oral intake - FOOD good FLUIDS good Weight is stable. Discussed with nursing he did complain of a sore throat yesterday and was started on Nasal Saline. He has no complaint today and he has no errythema or exudate noted on examiniation Reviewed the THERAPY notes Medication list reviewed. Review of systems is extremely limited secondary to severe expressive aphasia. Denies sore throat today and has no cough. He has been afebrile. He does not appear to be in any distress and is in good spirits. Objective Data Objective Data no new labs today. Vital Signs: Vital Signs Temp Pulse Resp BP Pulse Ox O2 Del Method 97.7 F L 74 16 146/80 H 95 Room Air 08/12/25 06:00 08/12/25 06:00 08/12/25 06:00 08/12/25 06:00 08/12/25 06:00 08/12/25 06:00 Oxygen Delivery Method Room Air Weight: 214 lb 15.211 oz Body Mass Index (BMI) 30.8 Intake & Output: Intake and Output for Last 24 Hours 08/10/25 08/11/25 08/12/25 23:59 23:59 23:59 Intake Total 1300 / 1300 1270 / 1270 240 / 240 Output Total 1575 / 1575 2350 / 2350 Balance -275 / -275 -1080 / -1080 240 / 240 Lab / Micro Data Attestation: I reviewed the patient's lab results. Lab results narrative: yesterdays labs reviewed 08/11/25 05:30 08/11/25 05:30 Labs: Laboratory Results - last 24 hr 08/11/25 16:48: POC Glucose 164 H 08/12/25 06:26: POC Glucose 98 Micro: Microbiology 07/26/25 13:00 Urine, Catheterized Urine Culture - Final Culture exhibits no growth. Physical Exam Const alert and no apparent distress Constitutional Narrative: Pleasant General Appearance: cooperative HEENT HEENT Narrative: Buccal mucosa is dry. There are no exudates in the posterior pharynx. There is some mild erythema which I suspect is secondary to postnasal drip. Eyes PERRL Neck Neck Narrative: No cervical adenopathy. Resp normal respiratory effort and clear to auscultation bilaterally Resp Narrative: No cough with deep breathing. Effort and Inspection: Negative for tachypneic Cardio regular rate, regular rhythm and no gallops GI normal to inspection, nondistended, normoactive bowel sounds, soft to palpation and non-tender GI Narrative: Having regular bowel movements. Extremity Extremity Narrative: Trace of edema in the ankles. Likely because he sits in the recliner with his legs dependent most of the day. ZANE hose are in place....... Skin Rashes: no rashes Neuro Neuro Narrative: Still with severe expressive aphasia. Able to follow simple commands. Very cooperative and in good spirits Psych Psych Narrative: Sleeping well at night, pleasant, with good appetite. No behavioral issues. The a.m. dose of Zyprexa was discontinued last week. Assessment & Plan Assessment/Plan (1) Debility: (2) Embolic stroke: QUALIFIERS: Precerebral and cerebral artery: unspecified precerebral artery Qualified Code(s): I63.10 - Cerebral infarction due to embolism of unspecified precerebral artery (3) Aphasia: (4) Chronic renal failure (CRF), stage 4 (severe): (5) Benign prostatic hyperplasia: QUALIFIERS: Lower urinary tract symptom presence: symptoms present Lower urinary tract symptom detail: urinary retention Qualified Code(s): N40.1 - Benign prostatic hyperplasia with lower urinary tract symptoms; R33.8 - Other retention of urine (6) Urine retention: PLAN: suspect this is due to autonomic neuropathy. He had a procedure on the prostate this year and he is still retaining. May need to always have a Caba because of this. He has a urologist he follows up with. (7) Presence of indwelling Caba catheter: PLAN: urine in the Caba tubing today is pale yellow and clear. (8) Depression: QUALIFIERS: Depression Type: reactive depression Qualified Code(s): F32.9 - Major depressive disorder, single episode, unspecified PLAN: He is eating well and sleeping well now. He never refuses therapy and he is very pleasant. No agitation. He is currently on 25 mg of sertraline daily and I see no need to change this. (9) Diabetes mellitus, type 2: QUALIFIERS: Diabetes mellitus ocean transportation intermediary insulin use: with retirement use Diabetes mellitus complication status: with kidney complications Diabetes mellitus complication detail: with chronic kidney disease Chronic kidney disease stage: stage 4 (GFR 15-29) Qualified Code(s): E11.22 - Type 2 diabetes mellitus with diabetic chronic kidney disease; N18.4 - Chronic kidney disease, stage 4 (severe); Z79.4 - assistant terminal manager (current) use of insulin PLAN: Well-controlled on Jardiance 10 mg daily and Amaryl 1 mg daily. (10) Normochromic normocytic anemia: PLAN: Chronic normochromic normocytic anemia most likely related to stage IV chronic renal failure. (11) GERD (gastroesophageal reflux disease): QUALIFIERS: Esophagitis presence: without esophagitis Qualified Code(s): K21.9 - Gastro-esophageal reflux disease without esophagitis PLAN: Controlled with lansoprazole 15 mg daily (12) Hypertension: QUALIFIERS: Hypertension type: primary hypertension Qualified Code(s): I10 - Essential (primary) hypertension PLAN: At times mildly elevated but, we are tolerating this because he has autonomic neuropathy with orthostatic hypotension and on the current regimen of amlodipine 5 mg daily and midodrine 5 mg 3 times daily the blood pressures are for the most part controlled with no dizziness or lightheadedness. (13) Neuropathy: PLAN: Gabapentin has been weaned down to 100 mg BID with no complaints of leg pain. (14) Orthostatic hypotension: PLAN: More likely than not secondary to autonomic neuropathy. (15) Bradycardia: PLAN: Plan 1. Continue therapy 2. 2 sprays of nasal saline 3 times daily in each nostril 3. Throat lozenges as needed 4. Decrease the olanzapine to 2.5 mg at bedtime. Continue 2.5 mg every 12 hours as needed agitation. Charges/Coding Visit Charges Inpatient E&M: 33342 [facility] Hosp L1
[2025-08-12 11:03] VITALS: BMI 30.8
[2025-08-12 17:28] VITALS: BP 145/60; PULSE 55; RESP 16; TEMP 36.5; O2SAT 98
[2025-08-12 21:00] VITALS: PULSE 55; RESP 16; O2SAT 98; BMI 30.8
[2025-08-12] MEDS: CARBOXYMETHYLCELLULOSE SODIUM 1 DRP DROPS OPHTHALMIC (21:23)
[2025-08-12] MEDS: MELATONIN 3 MG TABLET PO (21:23)
[2025-08-13 06:00] VITALS: BP 159/61; PULSE 61; RESP 15; TEMP 37.1
[2025-08-13] MEDS: Sodium Chloride 0.65% 1 SPRAY SPRAY.BTL 2 SPRAY NASAL ×3 (06:40→21:52)
[2025-08-13] MEDS: Heparin Injection (Vial) 5,000 UNIT/ML VIAL 5000 UNIT SC ×2 (08:10→21:52)
--- NOTE | 2025-08-13 09:59 | PN_ITS ---
Subjective Subjective Afebrile VSS -systolic blood pressure over the past 48 hours has ranged from 108-171. For the past 12 hours it has ranged from 145-159. Diastolic is always within goal. Heart rate over the past 48 hours has ranged from 54-74. Denies lightheadedness. Orthostatic vital signs on Sunday showed the blood pressure to be 132/50 with a heart rate of 56 lying down. Sitting up the blood pressure was 133/53 with a pulse rate of 57. Standing the blood pressure was 105/50 with a pulse rate of 74. He was asymptomatic. Maintaining appropriate oxygen saturation on RA Oral intake - FOOD good FLUIDS good. Fluid balance yesterday was +180. Weight is stable. Currently on Bumex 0.5 mg every 48 hours. Blood sugar record was reviewed. Fasting blood sugar the past 2 days has been 97 and 98. He has been in the 160s at supper. No further hypoglycemia. Blood sugars are currently controlled with Jardiance 10 mg daily and Amaryl 1 mg daily. Discussed with nursing - no problems that need addressed. Zyprexa was decreased to 2.5 mg at bedtime starting 08/11/2025. He is still sleeping well at night and there has been no agitation or behavioral problems. Reviewed the THERAPY notes Medication list reviewed. ST tells me that the past couple days he has been rubbing his eyes. He also had a sore throat Sunday but, this resolved with saline nasal spray. When I asked him if his eyes were dry he said yes. He does not appear to be in any distress. He is not tachypneic and has no cough. He tells me his sore throat has resolved. Review systems is limited due to the expressive aphasia. Objective Data Objective Data Vital Signs: Vital Signs Temp Pulse Resp BP Pulse Ox O2 Del Method 98.7 F 61 15 159/61 H 98 Room Air 08/13/25 06:00 08/13/25 06:00 08/13/25 06:00 08/13/25 06:00 08/12/25 21:00 08/13/25 06:00 Oxygen Delivery Method Room Air Weight: 214 lb 15.211 oz Body Mass Index (BMI) 30.8 Intake & Output: Intake and Output for Last 24 Hours 08/11/25 08/12/25 08/13/25 23:59 23:59 23:59 Intake Total 1270 / 1270 1480 / 1480 740 / 740 Output Total 2350 / 2350 950 / 950 850 / 850 Balance -1080 / -1080 530 / 530 -110 / -110 Lab / Micro Data 08/11/25 05:30 08/11/25 05:30 Labs: Laboratory Results - last 24 hr 08/12/25 16:24: POC Glucose 166 H 08/13/25 06:38: POC Glucose 97 Micro: Microbiology 07/26/25 13:00 Urine, Catheterized Urine Culture - Final Culture exhibits no growth. Physical Exam Const alert Constitutional Narrative: Calm, engaged when I talk to him. Cooperative with all the staff. No behavioral issues. HEENT moist oral mucous membranes Eyes PERRL and EOMs intact bilaterally Eyes Narrative: There is no conjunctival injection and no discharge from the eyes. There is no mattering of the eyelashes. Resp clear to auscultation bilaterally Effort and Inspection: Negative for tachypneic Cardio Cardio Narrative: Mildly bradycardic when he is sitting in the recliner or laying in the bed and resting. Pulse increases with exertion. No tachycardia. Rhythm is sometimes regular and sometimes irregular. He is known to have PAF and he is on Eliquis. GI normal to inspection, nondistended, normoactive bowel sounds Extremity General Extremity: Negative for edema Assessment & Plan Assessment/Plan (1) Debility: (2) Embolic stroke: QUALIFIERS: Precerebral and cerebral artery: unspecified precerebral artery Qualified Code(s): I63.10 - Cerebral infarction due to embolism of unspecified precerebral artery (3) Aphasia: (4) Chronic renal failure (CRF), stage 4 (severe): (5) Benign prostatic hyperplasia: QUALIFIERS: Lower urinary tract symptom presence: symptoms present Lower urinary tract symptom detail: urinary retention Qualified Code(s): N40.1 - Benign prostatic hyperplasia with lower urinary tract symptoms; R33.8 - Other retention of urine (6) Urine retention: PLAN: suspect this is due to autonomic neuropathy. He had a procedure on the prostate this year and he is still retaining. May need to always have a Caba because of this. He has a urologist he follows up with. (7) Presence of indwelling Caba catheter: PLAN: urine in the Caba tubing today is pale yellow and clear. (8) Depression: QUALIFIERS: Depression Type: reactive depression Qualified Code(s): F32.9 - Major depressive disorder, single episode, unspecified PLAN: He is eating well and sleeping well now. He never refuses therapy and he is very pleasant. No agitation. He is currently on 25 mg of sertraline daily and I see no need to change this. (9) Diabetes mellitus, type 2: QUALIFIERS: Diabetes mellitus senior care insulin use: with senior care use Diabetes mellitus complication status: with kidney complications D iabetes mellitus complication detail: with chronic kidney disease Chronic kidney disease stage: stage 4 (GFR 15-29) Qualified Code(s): E11.22 - Type 2 diabetes mellitus with diabetic chronic kidney disease; N18.4 - Chronic kidney disease, stage 4 (severe); Z79.4 - halfway (current) use of insulin PLAN: Well-controlled on Jardiance 10 mg daily and Amaryl 1 mg daily. (10) Normochromic normocytic anemia: PLAN: Chronic normochromic normocytic anemia most likely related to stage IV chronic renal failure. (11) GERD (gastroesophageal reflux disease): QUALIFIERS: Esophagitis presence: without esophagitis Qualified Code(s): K21.9 - Gastro-esophageal reflux disease without esophagitis PLAN: Controlled with lansoprazole 15 mg daily (12) Hypertension: QUALIFIERS: Hypertension type: primary hypertension Qualified Code(s): I10 - Essential (primary) hypertension PLAN: At times mildly elevated but, we are tolerating this because he has autonomic neuropathy with orthostatic hypotension and on the current regimen of amlodipine 5 mg daily and midodrine 5 mg 3 times daily the blood pressures are for the most part controlled with no dizziness or lightheadedness. (13) Neuropathy: PLAN: Gabapentin has been weaned down to 100 mg BID with no complaints of leg pain. (14) Orthostatic hypotension: PLAN: More likely than not secondary to autonomic neuropathy. (15) Bradycardia: PLAN: Plan 1. Continue therapy 2. Prescribe artificial tears 2 drops each eye every 4 hours from [id number] daily. 3. Continue Zyprexa 2.5 mg at at bedtime. Will likely give a prescription for Zyprexa at discharge. He may not need it after returning home but with the change in location from rehab to home he might have some exacerbation of behavioral issues. Would continue for 1 week postdischarge from rehab and then trial discontinuing. Charges/Coding Visit Charges Inpatient E&M: 86799 Subs Hosp L1
[2025-08-13] MEDS: CARBOXYMETHYLCELLULOSE SODIUM 15 ML OPHTH DROPS 2 DRP EACH EYE ×3 (11:54→22:18)
--- NOTE | 2025-08-13 12:40 | CASEMGMT ---
Social Work IDT met with patient, and stepson for Team meeting. Discussed patient's progress in PT/OT/ST/SN/MD. Educated to [facility] insurance with [employer] 08/19 and continued stay is not guaranteed with each review. IDT agrees pt is progressing well, SBA, recommending 16/04 care at home. SW offered for family to set DC or have insurance set DC. Encouraged participate in shared care prior to DC to ensure comfort with . Recommending at DC hiring TUNNEL DRIER OPERATOR several times a week to help offset caregiver burnout for caring for pt, and not to have be the primary caregiver. SW to coordinate skilled HHC at DC but for family to contact private duty agencies to coordinate that care. Answered family's questions. and sson elect DC 08/19 and agreed to shared care 08/17. SW told to review the skilled HHC list previously provided and to contact SW with preferences. also educated to caregiver burnout and encouraged investing the money in TUNNEL DRIER OPERATOR. Pt has no DME needs. Plan: DC home with 08/19, HHC PT/OT/ST/SN/[facility]
[2025-08-13 12:41] VITALS: BMI 30.8
[2025-08-13 17:29] VITALS: BP 136/70; PULSE 61; RESP 15; TEMP 36.7; O2SAT 100
[2025-08-13 21:50] VITALS: PULSE 58
[2025-08-13] MEDS: Senna/Docusate Sodium 1 Tablet 2 TABLET PO (21:52)
[2025-08-13] MEDS: MELATONIN 3 MG TABLET PO (21:52)
[2025-08-14 06:00] VITALS: BP 146/77; PULSE 73; RESP 17; TEMP 36.6; O2SAT 96; BMI 31.1
[2025-08-14] MEDS: Sodium Chloride 0.65% 1 SPRAY SPRAY.BTL 2 SPRAY NASAL ×3 (06:23→20:46)
[2025-08-14] MEDS: CARBOXYMETHYLCELLULOSE SODIUM 15 ML OPHTH DROPS 2 DRP EACH EYE ×5 (06:23→20:45)
[2025-08-14] MEDS: Heparin Injection (Vial) 5,000 UNIT/ML VIAL 5000 UNIT SC ×2 (08:03→20:50)
[2025-08-14 08:10] VITALS: BP 128/89; PULSE 79
[2025-08-14 15:37] VITALS: BMI 31.1
[2025-08-14 18:00] VITALS: BP 122/61; PULSE 63; RESP 16; TEMP 36.6; O2SAT 98
[2025-08-14] MEDS: MELATONIN 3 MG TABLET PO (20:47)
[2025-08-14] MEDS: Senna/Docusate Sodium 1 Tablet 2 TABLET PO (20:48)
[2025-08-15] MEDS: Sodium Chloride 0.65% 1 SPRAY SPRAY.BTL 2 SPRAY NASAL ×3 (05:27→21:11)
[2025-08-15] MEDS: CARBOXYMETHYLCELLULOSE SODIUM 15 ML OPHTH DROPS 2 DRP EACH EYE ×5 (05:28→21:12)
[2025-08-15 06:00] VITALS: BP 155/67; PULSE 61; RESP 16; TEMP 37.2; O2SAT 95
[2025-08-15 07:06] VITALS: BMI 31.1
[2025-08-15 08:30] VITALS: BP 155/65; PULSE 70
[2025-08-15] MEDS: Heparin Injection (Vial) 5,000 UNIT/ML VIAL 5000 UNIT SC ×2 (08:37→21:12)
[2025-08-15 10:40] VITALS: BMI 31.1
[2025-08-15 18:00] VITALS: BP 136/57; PULSE 57; RESP 16; TEMP 36.6; O2SAT 96
[2025-08-15] MEDS: MELATONIN 3 MG TABLET PO (21:12)
[2025-08-16 05:12] VITALS: BP 142/58; PULSE 58; RESP 17; TEMP 36.3; O2SAT 95
[2025-08-16] MEDS: Sodium Chloride 0.65% 1 SPRAY SPRAY.BTL 2 SPRAY NASAL ×3 (05:13→21:37)
[2025-08-16] MEDS: CARBOXYMETHYLCELLULOSE SODIUM 15 ML OPHTH DROPS 2 DRP EACH EYE ×5 (05:13→21:37)
[2025-08-16] MEDS: Senna/Docusate Sodium 1 Tablet 2 TABLET PO (08:48)
[2025-08-16 09:00] VITALS: BP 136/60; PULSE 66
[2025-08-16] MEDS: Heparin Injection (Vial) 5,000 UNIT/ML VIAL 5000 UNIT SC ×2 (09:01→21:37)
[2025-08-16 10:34] VITALS: BMI 31.1
[2025-08-16 18:00] VITALS: BP 136/60; PULSE 67; RESP 18; TEMP 36.6; O2SAT 96
[2025-08-16 19:53] VITALS: BMI 31.1
[2025-08-16 20:07] VITALS: RESP 16; O2SAT 96
[2025-08-16] MEDS: MELATONIN 3 MG TABLET PO (21:37)
[2025-08-17 05:00] VITALS: BP 147/63; PULSE 59; RESP 16; TEMP 36.7; O2SAT 94
[2025-08-17 05:01] VITALS: BMI 30.6
[2025-08-17] MEDS: Sodium Chloride 0.65% 1 SPRAY SPRAY.BTL 2 SPRAY NASAL ×3 (05:07→21:02)
[2025-08-17] MEDS: CARBOXYMETHYLCELLULOSE SODIUM 15 ML OPHTH DROPS 2 DRP EACH EYE ×5 (05:07→21:02)
[2025-08-17] MEDS: Heparin Injection (Vial) 5,000 UNIT/ML VIAL 5000 UNIT SC ×2 (09:05→21:01)
[2025-08-17 09:22] VITALS: BP 112/59; PULSE 63
--- NOTE | 2025-08-17 10:37 | PN_ITS ---
Subjective Subjective Afebrile VSS -blood pressures over the weekend have ranged from 112/59 to 155/67. Heart rate has ranged from 57-70. Maintaining appropriate oxygen saturation on RA Oral intake - FOOD excellent FLUIDS good Weight is stable. Discussed with nursing - no problems that need addressed Reviewed the THERAPY notes Medication list reviewed. Adriel came in once again today for shared care. She feels that she and her family will be able to adequately care for facility. They are good with discharge home on Sunday. Alejandro denies cephalgia, lightheadedness, chest pain, shortness of breath, cough, suprapubic pain and calf pain. His weight is stable. He is talking more now. He does not appear to be in any discomfort. No behavioral issues. Objective Data Objective Data Vital Signs: Vital Signs Temp Pulse Resp BP Pulse Ox O2 Del Method 98.1 F 63 16 112/59 L 94 Room Air 08/17/25 05:00 08/17/25 09:22 08/17/25 05:00 08/17/25 09:22 08/17/25 05:00 08/17/25 05:00 Oxygen Delivery Method Room Air Weight: 213 lb 6.519 oz Body Mass Index (BMI) 30.6 Intake & Output: Intake and Output for Last 24 Hours 08/15/25 08/16/25 08/17/25 23:59 23:59 23:59 Intake Total 1830 / 1830 1600 / 1600 270 / 270 Output Total 1650 / 1650 2430 / 2430 600 / 600 Balance 180 / 180 -830 / -830 -330 / -330 Lab / Micro Data 08/11/25 05:30 08/11/25 05:30 Micro: Microbiology 07/26/25 13:00 Urine, Catheterized Urine Culture - Final Culture exhibits no growth. Physical Exam Const alert Constitutional Narrative: No behavioral issues. Still with significant expressive aphasia but getting more speech out now. Very pleasant and cooperative. General Appearance: cooperative HEENT moist oral mucous membranes Resp normal respiratory effort and clear to auscultation bilaterally Effort and Inspection: Negative for tachypneic Cardio regular rate, regular rhythm, no rub and no gallops GI normal to inspection, nondistended, normoactive bowel sounds, soft to palpation and non-tender Extremity no calf tenderness Extremity Narrative: Trace ankle edema. ZANE hose in place. Weight is stable. Skin General Skin Exam: no breakdown Rashes: no rashes Assessment & Plan Assessment/Plan (1) Debility: (2) Embolic stroke: QUALIFIERS: Precerebral and cerebral artery: unspecified precerebral artery Qualified Code(s): I63.10 - Cerebral infarction due to embolism of unspecified precerebral artery (3) Aphasia: (4) Chronic renal failure (CRF), stage 4 (severe): (5) Benign prostatic hyperplasia: QUALIFIERS: Lower urinary tract symptom presence: symptoms present Lower urinary tract symptom detail: urinary retention Qualified Code(s): N40.1 - Benign prostatic hyperplasia with lower urinary tract symptoms; R33.8 - Other retention of urine (6) Urine retention: (7) Presence of indwelling Caba catheter: (8) Depression: QUALIFIERS: Depression Type: reactive depression Qualified Code(s): F32.9 - Major depressive disorder, single episode, unspecified (9) Diabetes mellitus, type 2: QUALIFIERS: Diabetes mellitus technician terminal and repeater insulin use: with assisted use Diabetes mellitus complication status: with kidney complications D iabetes mellitus complication detail: with chronic kidney disease Chronic kidney disease stage: stage 4 (GFR 15-29) Qualified Code(s): E11.22 - Type 2 diabetes mellitus with diabetic chronic kidney disease; N18.4 - Chronic kidney disease, stage 4 (severe); Z79.4 - MCFP (current) use of insulin (10) Normochromic normocytic anemia: (11) GERD (gastroesophageal reflux disease): QUALIFIERS: Esophagitis presence: without esophagitis Qualified Code(s): K21.9 - Gastro-esophageal reflux disease without esophagitis (12) Hypertension: QUALIFIERS: Hypertension type: primary hypertension Qualified Code(s): I10 - Essential (primary) hypertension (13) Neuropathy: (14) Orthostatic hypotension: (15) Bradycardia: PLAN: Plan 1. Continue therapy 2. Planning discharge for Sunday. 3. The patient is unsafe to use a cane and requires a walker for ambulation in the home and the community. 4. Recheck a CBC and BMP in the a.m. in preparation for discharge Sunday. 5. Continue midodrine 5 mg 3 times daily. 6. will defer voiding trial to his urologist. I think he has neurogenic bladder secondary to autonomic neuropathy related to longstanding diabetes mellitus. He has orthostatic hypotension which is secondary to autonomic neuropathy. 7. Will continue Zyprexa 2.5 mg at bedtime for 1 week postdischarge and then have the family discontinue. Will not restart unless he starts to have recurrent behavioral issues. Charges/Coding Visit Charges Inpatient E&M: 01770 Subs Hosp L1
--- NOTE | 2025-08-17 12:22 | CASEMGMT ---
Addendum entered by Anahi Valdes 08/17/25 15:56: [facility] does not have ST. [facility] has not replied. [facility] has PT/OT/ST and can do SOC 08/19 or 08/21, then involve SN next week. SW collaborated with IDT and agreed to drop BAINS and SW. SW updated SSon. Original Note: Social Work SW received [facility] with selected [facility] agencies - 1.[facility], 2. [facility], 3. [facility]. SW to place referrals and notify sson of acceptance. SW also asked about [facility] - MOTION AND TIME STUDY TEACHER recommending and reported pt only having a rollator. SSon agreed to [facility]. SW to refer to [employer] and it delivered to the room prior to DC. Sson appreciative. - SW sent referrals via [employer] to [facility] agencies and [employer]. Anahi Valdes B[employer] GRINDER [employer]UM PLANT OPERATOR
[2025-08-17 12:41] VITALS: BMI 30.6
--- NOTE | 2025-08-17 15:04 | PCM.DC ---
Discharge Instructions DC O2, CPAP, BIPAP needs Home O2 Discharge instructions: No Dressing / Incision Discharge Activity: May Not Drive, May Shower and Use Walker Weight Bearing Status: Full weight bearing Keep extremity elevated above heart level: Legs Dressing / Incision Call your doctor if you observe: Fever of 101 or Higher, Inability to have a bowel movement, Shortness of breath, Dizziness, Fainting spells, Chest pain, Increased palpitations (irregular heartbeat), Calf discomfort, Uncontrolled pain and - (STROKE symptoms: facial droop, slurred speech, inability to get words out, weakness on 1 side of the body and not the other, numbness on 1 side of the body and not the other, inability to maintain your balance sitting or standing, vertigo. ) Catheter: Caba to large bag (May use the leg bag at night. ) Follow Up Care When: Appointments have been made for you to follow-up with urology, interventional cardiology, your primary care physician and neurology. They are listed later in this document. Test Results: Test results from this visit will be discussed in further detail at your follow-up appointment, if applicable. Pending Tests Upon Discharge: none Discharge Plan Admission Admit Date/Time: 07/26/25 11:12 Primary Reason for Your Visit: Poststroke debility Attending Provider: Indigo Mello Primary Care Provider: Rudy Almanzar Instructions Patient Instructions: Catheter-Linked Urinary Tract ..., ED Bladder Infection, Male (Adult) Additional Instructions / Restrictions: 1. You are going home with a Caba catheter. I think the reason you retain urine is due to the stroke and also due to autonomic neuropathy. This is dysfunction of the part of the nervous system that controls the functions you don't think about......like emptying the bladder, controlling your heart rate, Causing the arteries to constrict when you stand up so that your blood pressure does not drop and you don't pas out. Your blood pressure drops significantly when you stand up and this was making you lightheaded. We have started you on a medication called Midodrine to prevent the drop in BP when you are standing. You will take this medication 3 times a day. Your BP is mildly elevated when you are lying in bed and sitting but, we must tolerate this to prevent the severe drop in BP when you stand. It is important for you to stay hydrated when you have autonomic neuropathy. Dehydration contributes to the drop in blood pressure. We have decreased the Bumex (diuretic) to 0.5 mg every other day. Your lungs are clear and you have just a trace of edema in your ankles. The weight has been stable. You will need to weigh yourself every morning when you get up and keep a record. If your weight increases by 5 lbs then you will need to increase the Bumex to daily until your weight is back to baseline. Your baseline weight will be whatever your weight is on the first morning you are home. 2. You have done very well on rehab but, there is more work to be done. You will need continued speech therapy, physical therapy and occupational therapy after you discharge. You will have home health care to provide these services. There will also be a nurse to check on the Caba catheter. 3. I have given you some literature to read about the symptoms of a urinary tract infection. Symptoms include but, are not limited to, mental status changes/increased confusion, fevers, shaking chills/sweats, a change in the color of the urine (erin if there is blood), a strong or foul odor to the urine, flank pain, pain in the pelvis and nausea and vomiting. If you have any of these symptoms call your family doctor or go to an urgicare or ER to have your urine tested. 4. You have a nodule in your thyroid and this needs to be addressed at some point after discharge. You will need an ultrasound of the thyroid and then follow up with an financial aid administrator. You have an appt on Tuesday 08/21 to have the ultrasound done at 1 PM. The financial aid administrator, Dr. Audie Soto, has your information and she will review the US and then call you to schedule an appt to see her. 5. You have a history of gout. You take a medication called Allopurinol to prevent gout. Allopurinol decrease the uric acid level to prevent gout. We checked your uric acid level while you were on rehab and it was 8.5 which is very high. You have been taking 100 mg of allopurinol daily. Ideally your uric acid should be less than 6. We increased the allopurinol to 200 mg daily and you should have your uric acid level rechecked in 4 weeks. If it is still greater than 6 your doctor may want to increase the allopurinol to 300 mg. 6. Happy Thanksgiving Alejandro. it has been a pleasure getting to know you and I am very happy with your progress on rehab. If you or your family have any questions after you leave rehab please do not hesitate to call me. OFFICE: [phone] CELL: [phone] NURSES STATION ON REHAB: [phone] Discharge Orders/Prescriptions Prescriptions: New acetaminophen 325 mg Tablet 650 mg PO Q6H PRN PRN (Reason: Pain Score 1-10) Qty: 1 0RF amlodipine 5 mg Tablet 5 mg PO DAILY Qty: 30 0RF allopurinol 100 mg Tablet 200 mg PO DAILYCM Qty: 60 0RF Rx Instructions: Take 2 tabs once a day glimepiride 1 mg Tablet 1 mg PO BREAKFAST Qty: 30 0RF bumetanide 0.5 mg Tablet 0.5 mg PO Q48H Qty: 30 0RF gabapentin 100 mg Capsule 100 mg PO BID Qty: 60 0RF trazodone 50 mg Tablet 50 mg PO QHS Qty: 30 0RF midodrine 5 mg Tablet 5 mg PO TIDCM Qty: 90 0RF olanzapine 2.5 mg Tablet 2.5 mg PO 2200 Qty: 14 0RF Rx Instructions: Take 1 tab at bedtime for 1 week and then discontinue. Resume if any recurrence of agitation sertraline 50 mg Tablet 25 mg PO DAILY Qty: 30 0RF Continued clopidogrel 75 mg tablet 75 mg PO DAILY Jardiance 10 mg tablet 10 mg PO DAILY ezetimibe 10 mg tablet 10 mg PO DAILY aspirin 81 mg tablet,chewable 1 tab PO DAILY lansoprazole 15 mg capsule,delayed release(DR/EC) 15 mg PO DAILY melatonin 3 mg tablet 3 mg PO QHS Qty: 30 0RF tamsulosin 0.4 mg capsule 0.4 mg PO DAILY Qty: 30 0RF Soliqua 100/33 100 unit-33 mcg/mL insulin pen 19 unit subcut DAILY Qty: 2 0RF Discontinued amlodipine 10 mg tablet 10 mg PO DAILY bumetanide 0.5 mg tablet 0.5 mg PO DAILY gabapentin 300 mg capsule 300 mg PO BID allopurinol 300 mg tablet 100 mg PO DAILY olanzapine 2.5 mg tablet 5 mg PO QHS trazodone 50 mg tablet 25 mg PO QHS No Action olanzapine 2.5 mg tablet 2.5 mg PO Q8H PRN Other Ambulatory Orders: Thyroid (Routine) Facility: [facility] - Location: [facility] Ordered By: Dr. Indigo Mello Referrals / Follow Up: Dr Morgan [Other, Urology] - 09/01/25 11:30 am Referral Note: with [facility] office Ultrasound [Other] - 08/21/25 1:00 pm Referral Note: thyroid ultrasound Nima Ruiz MD [Non-Staff, Interventional Cardiology] - 10/23/25 10:45 am Rudy Almanzar MD [Primary Care Provider, Family Practice] - 08/31/25 10:00 am Steve Osorio MD [Non-Staff -Ordering Privileges, Neurology] - 08/25/25 1:30 pm Referral Note: with NONDESTRUCTIVE TESTER Audie Fleming MD [Med Staff - Courtesy Staff, Endocrinology] Referral Note: office will call to make appointment Disposition Disposition (needs filled in before D/C Order can be placed): Home Health Service
--- NOTE | 2025-08-17 16:02 | EX.DISCHREH ---
Providers Date of Admission: 07/26/25 Date of Discharge: 08/19/25 Primary Care Physician: Dr. Rudy Almanzar MD None Reason For Visit: CVA Post TAVR Diagnosis Discharge Diagnosis (1) Debility: Status: Acute Code(s): R53.81 - Other malaise (2) S/P TAVR (transcatheter aortic valve replacement): Status: Acute Code(s): Z95.2 - Presence of prosthetic heart valve (3) Embolic stroke: Status: Acute Code(s): I63.9 - Cerebral infarction, unspecified Qualifiers: Precerebral and cerebral artery: unspecified precerebral artery Qualified Code(s): I63.10 - Cerebral infarction due to embolism of unspecified precerebral artery Plan: Scattered areas of acute to early subacute embolic infarctions within the bilateral cerebral hemispheres and within the left cerebellar hemisphere that occurred post TAVR. He has no history of atrial fibrillation and is not on chronic anticoagulation. (4) Right sided weakness: Status: Acute Code(s): R53.1 - Weakness (5) Aphasia: Status: Acute Code(s): R47.01 - Aphasia Plan: Severe expressive aphasia greater than receptive aphasia (6) Delirium: Status: Resolved Code(s): R41.0 - Disorientation, unspecified Plan: Very agitated at admission to rehab. Not sleeping at night and very confused. Was on Zyprexa 2.5 mg at at bedtime and trazodone 25 mg at at bedtime when he arrived on rehab. Zyprexa had to be increased to 5 mg at at bedtime and 2.5 mg in the a.m. to get his behavior under control. Trazodone was increased to 50 mg send with these changes in medications he was sleeping through the night. Zyprexa has been weaned down to 2.5 mg at at bedtime prior to discharge. We explained to the family that he will take this for 1 week post DC and if has no changes in behavior they could try discontinuing the medication. They will restart if he escalates following discontinuation of the medication. He will continue the Trazodone 50 mg at HS. At the time of DC he is sleeping through the night and we are not having any issues with behavior. He is very cooperative. (7) Chronic renal failure (CRF), stage 4 (severe): Status: Chronic Code(s): N18.4 - Chronic kidney disease, stage 4 (severe) Plan: He came to us on 0.5 mg Bumex daily but, oral fluid intake is only fair and creat was increasing and weight decreasing. the dose was changed to 0.5 mg Q 48 hours and he is stable on this dose. Wt is stable and he has just a trace of edema limited to just the R ankle at DC. No edema on the L. Lungs are CTA. Pulse ox ranges from 94 to 98% on room air. (8) Urine retention: Status: Acute Code(s): R33.9 - Retention of urine, unspecified Plan: Suspect this is due to stroke and also due to autonomic neuropathy. Failed voiding trial after a few weeks on rehab. Can not tolerate more than 0.4 mg of Flomax due to orthostatic hypotension requiring Midodrine. (9) Presence of indwelling Caba catheter: Status: Acute Code(s): Z97.8 - Presence of other specified devices (10) Benign prostatic hyperplasia: Status: Chronic Code(s): N40.0 - Benign prostatic hyperplasia without lower urinary tract symptoms Qualifiers: Lower urinary tract symptom detail: urinary retention Lower urinary tract symptom presence: symptoms present Qualified Code(s): N40.1 - Benign prostatic hyperplasia with lower urinary tract symptoms; R33.8 - Other retention of urine Plan: He is status post prostate enucleation by Dr. Morgan on 03/30/2025. Prior to this procedure he had a Caba catheter. Following the procedure the Caba catheter was able to be discontinued. 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 (13) Thyroid enlargement: Status: Chronic Code(s): E04.9 - Nontoxic goiter, unspecified Plan: Thyroid is enlarged with a focal 3.1 cm nodule. He is scheduled to have a thyroid US on 08/21 and then will follow up with Dr. christy Soto from endocrinology. TSH is 3.4 and the T4 is normal at 1. (14) Depression: Status: Acute Code(s): F32.A - Depression, unspecified Qualifiers: Depression Type: reactive depression Qualified Code(s): F32.9 - Major depressive disorder, single episode, unspecified Plan: Stable on Sertraline 25 mg daily. He is sleeping well and participating with therapy. He is no longer tearful and he has been outgoing and pleasant. Will continue 25 mg daily at ND. (15) Coronary artery disease: Status: Chronic Code(s): I25.10 - Atherosclerotic heart disease of [place] coronary artery without angina pectoris Qualifiers: Associated angina: without angina Coronary Disease-Associated Artery/Lesion type: [place] artery [place] vs. transplanted heart: [place] heart Qualified Code(s): I25.10 - Atherosclerotic heart disease of [place] coronary artery without angina pectoris (16) History of PTCA: Status: Acute Code(s): Z98.61 - Coronary angioplasty status Plan: PCI to the LAD in December 2024. Will need to continue dual antiplatelet agents. (17) Diabetes mellitus, type 2: Status: Chronic Code(s): E11.9 - Type 2 diabetes mellitus without complications Qualifiers: Chronic kidney disease stage: stage 4 (GFR 15-29) Diabetes mellitus complication detail: with chronic kidney disease Diabetes mellitus complication status: with kidney complications Diabetes mellitus intermission coordinator insulin use: with intermission coordinator use Qualified Code(s): E11.22 - Type 2 diabetes mellitus with diabetic chronic kidney disease; N18.4 - Chronic kidney disease, stage 4 (severe); Z79.4 - prison (current) use of insulin Plan: Well-controlled on rehab on Jardiance 10 mg daily and Amaryl 1 mg daily. (18) Normochromic normocytic anemia: Status: Chronic Code(s): D64.9 - Anemia, unspecified Plan: More likely than not secondary to chronic renal failure stage IV. Hemoglobin is stable at 10.8 at discharge with normochromic normocytic indices. RDW is very mildly elevated. (19) GERD (gastroesophageal reflux disease): Status: Chronic Code(s): K21.9 - Gastro-esophageal reflux disease without esophagitis Qualifiers: Esophagitis presence: without esophagitis Qualified Code(s): K21.9 - Gastro-esophageal reflux disease without esophagitis Plan: Will continue lansoprazole 15 mg daily (20) Hypertension: Status: Chronic Code(s): I10 - Essential (primary) hypertension Qualifiers: Hypertension type: primary hypertension Qualified Code(s): I10 - Essential (primary) hypertension Plan: BP is mildy elevated with lying down but, this needs to be tolerated due to the pronounced symptomatic orthostatic Hypotension when standing. He is stable on midodrine 5 mg 3 times daily. On the date of discharge his blood pressure lying down was 130/70 with a heart rate of 62. Sitting up the blood pressure was 128/72 with a heart rate of 62 and standing it dropped to 112/70 with a heart rate of 60. (21) Bradycardia: Status: Chronic Code(s): R00.1 - Bradycardia, unspecified Plan: He has been bradycardic in the past and that mostly resolved with discontinuation of a beta-jami. He is not currently on any medication to block the AV node and his heart rate for 48 hours prior to discharge has ranged from 56-67. He denies lightheadedness. (22) Neuropathy: Status: Chronic Code(s): G62.9 - Polyneuropathy, unspecified Plan: He was on gabapentin 300 mg twice daily at admission to rehab but was having daytime somnolence and the dose was decreased to 100 mg twice daily. He is not complaining of any new or pain in his lower extremities with the decrease in the dose. (23) Hyperlipidemia: Status: Chronic Code(s): E78.5 - Hyperlipidemia, unspecified Qualifiers: Hyperlipidemia type: unspecified Qualified Code(s): E78.5 - Hyperlipidemia, unspecified Plan: He is intolerant of statins but takes Zetia 10 mg daily. He we will continue a low-fat diet. (24) Gout: Status: Chronic Code(s): M10.9 - Gout, unspecified Qualifiers: Chronicity: chronic Gout etiology: unspecified cause Gout site: unspecified site Presence of tophus: without tophus Qualified Code(s): M1A.9XX0 - Chronic gout, unspecified, without tophus (tophi) Plan: He had no gouty arthritis while on rehab. (25) Hyperuricemia: Status: Chronic Code(s): E79.0 - Hyperuricemia without signs of inflammatory arthritis and tophaceous disease Plan: He was taking 300 mg of allopurinol daily at admission to rehab. His uric acid level was 8.5. We decreased the dose to 200 mg. In patients with CRF the recommended dose is 1.5 x the GFR. His GFR is 26. 26 x 1.5 =39. He is tolerating the 200 mg well with no obvious adverse SE but, must be careful with this drug because there are serious adverse reactions to this drug and some of them can be fatal. (26) Nonrheumatic aortic (valve) stenosis: Status: Chronic Code(s): I35.0 - Nonrheumatic aortic (valve) stenosis Plan: Status post TAVR bar. Plan 1. Discharge home on 08/19/2025 2. Will discharge with a Caba catheter. 3. Home health care has been arranged and will start on 08/21/2025 with PT/OT/ST/SN. 4. He has an appointment for thyroid ultrasound on 08/21/2025. The casting operator, Dr. Christy Soto, will review and then call the patient to schedule an appointment. 5. He will Follow-up scheduled with Dr. Morgan from urology on 09/01. failed voiding trial on rehab. I strongly suspect he has a neurogenic bladder related to autonomic neuropathy related to longstanding diabetes mellitus type 2. 6. Continue midodrine 5 mg daily. He is still mildly orthostatic with standing but he is asymptomatic now. Prior to midodrine the systolic was dropping into the low 80s with standing and now it only drops into the 105-112 range. When he is dehydrated it drops into the nineties. 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 7. Appointments were made with Dr. Almanzar, his PCP and Dr. Ruiz, from interventional cardiology Medications at Discharge Home Medications aspirin 81 mg chewable tablet 1 tab PO DAILY heart 07/26/25 clopidogrel 75 mg tablet 75 mg PO DAILY blood thinner 07/26/25 empagliflozin 10 mg tablet (Jardiance) 10 mg PO DAILY dm 07/26/25 ezetimibe 10 mg tablet 10 mg PO DAILY cholesterol 07/26/25 olanzapine 2.5 mg tablet 2.5 mg PO Q8H PRN agitation 07/26/25 acetaminophen 325 mg tablet 650 mg (2 x 325 mg) PO Q6H PRN PRN Pain Score 1-10 #1 TAB 08/17/25 allopurinol 100 mg tablet 200 mg (2 x 100 mg) PO DAILYCM #60 tabs 08/17/25 amlodipine 5 mg tablet 5 mg PO DAILY #30 tabs 08/17/25 bumetanide 0.5 mg tablet 0.5 mg PO Q48H #30 tabs 08/17/25 gabapentin 100 mg capsule 100 mg PO BID #60 caps 08/17/25 glimepiride 1 mg tablet 1 mg PO BREAKFAST #30 tabs 08/17/25 melatonin 3 mg tablet 3 mg PO QHS sleep #30 tabs 08/17/25 midodrine 5 mg tablet 5 mg PO TIDCM #90 tabs 08/17/25 olanzapine 2.5 mg tablet 2.5 mg PO 2200 #14 tabs 08/17/25 sertraline 50 mg tablet 25 mg (1/2 x 50 mg) PO DAILY #30 tabs 08/17/25 trazodone 50 mg tablet 50 mg PO QHS #30 tabs 08/17/25 lansoprazole 15 mg capsule,delayed release 15 mg PO DAILY gerd #30 caps 08/18/25 melatonin 3 mg capsule 3 mg PO QHS #30 caps 08/18/25 tamsulosin 0.4 mg capsule 0.4 mg PO DAILY #30 caps 08/18/25 Physical Exam Const alert and no apparent distress Constitutional Narrative: Very pleasant and cooperative. Trying to talk with me but still has Expressive > receptive aphasia. Unable to follow some of my commands without visual cues. General Appearance: well developed HEENT HEENT Narrative: Mucous membranes are a little dry. Tongue protrudes on the midline. No evidence of thrush. Does not have his hearing aids in today. Head and Scalp: normocephalic and atraumatic Eyes PERRL, EOMs intact bilaterally, conjunctivae normal and no scleral icterus Eyes Narrative: No discharge from the eyes. Visual healy intact to physical threat BL. Pupils are 2 mm. Arcus senilis BL General Eye: normal appearance of both eyes and normal light reflex Neck full ROM, supple and No nodes General: trachea midline Chest Chest: symmetrical chest wall rise Resp normal respiratory effort and normal air movement Resp Narrative: He initially had coarse crackles in the bases and these almost completely resolved after a few deep breaths. No cough with deep breathing. Cardio regular rate, regular rhythm, no rub and no gallops Cardio Narrative: 1-2/6 ELISHA at the second RICS without radiation. Rare early bed GI normal to inspection, nondistended, normoactive bowel sounds and soft to palpation GI Narrative: No guarding with palpation. Having regular BM's. no CVA tenderness Narrative: Urine in the Caba bag and tubing is clear and he is AF. Bladder / Kidney Exam: catheter in place urethral (Urine in the tubing and Caba bag is pale yellow and clear.) Back/Spine normal to inspection General Back: Negative for tenderness Extremity no calf tenderness and no pedal edema Extremity Narrative: He has superficial varicosities of both lower extremities. ZANE hose are in place. Skin no rashes or lesions noted Skin Narrative: Dry skin General Skin Exam: no breakdown Rashes: no rashes Hair: male pattern alopecia Neuro Neuro Narrative: He is alert. Pupils are equal round and reactive to light. No nystagmus. Extraocular muscles are intact. Smile is symmetrical. Tongue protrudes on the midline. Good shoulder shrug bilaterally. No drift with any of his extremities. No tremors. Excellent learning specialist strength bilaterally. Still with severe expressive aphasia. He has more automatic speech than he did at admission. Able to follow some simple commands but others he requires visual cues with. Psych Psych Narrative: Sleeping well at night. Very cooperative. No behavioral problems for the past couple weeks. Makes good eye contact when you are speaking with him. Tries to talk with me but most of his speech is not intelligible except for the automatic speech. Never refuses therapy. No longer tearful. Paying close attention to whoever is speaking on team rounds. Appearance: appropriate and well kempt Attitude: calm and engaged Activity / Motor Behavior: appropriate eye contact Weight / BMI Weight Weight: 213 lb 6.519 oz Body Mass Index (BMI) 30.6 ABG / Lab / Microbiology Data 08/18/25 05:20 08/18/25 05:20 Microbiology: Microbiology 07/26/25 13:00 Urine, Catheterized Urine Culture - Final Culture exhibits no growth. Indicators for Scoring Admitted with or Primary Diagnosis of CVA/Stroke: Yes Hx of CVA/Stroke: Yes Modified Riesel Score MRS Score at time of Evaluation: 2-Slight disability NIHSS NIHSS 1a. Level of Consciousness: 0 - Alert; keenly responsive 1b. LOC Questions: 2 - Answers NEITHER question correctly 1c. LOC Commands: 0 - Performs BOTH tasks correctly 2. Best Gaze: 0 - Normal 3. Visual: 0 - No visual loss 4. Facial Palsy: 0 - Normal symmetrical movements 5a. Left Arm: 0 - No drift; arm holds 90 (or 45) degrees for full 10 seconds 5b. Right Arm: 0 - No drift; arm holds 90 (or 45) degrees for full 10 seconds 6a. Left Le - No drift; leg holds 30-degree position for full 5 seconds 6b. Right Le - No drift; leg holds 30-degree position for full 5 seconds 7. Limb Ataxia: 0 - Absent 8. Sensory: 0 - Normal; no sensory loss (could not understand what I was asking him to do. I demonstrated for him but, he was not able to do heel gore with his legs. No ataxia with the upper extremities but, had to demonstrate multiple times) 9. Best Language: 2 - Severe aphasia; 10. Dysarthria: 1 = [id number] dysarthria; 11. Extinction and Inattention: 0 - No abnormality Total: 5 (Down from 9 at admission) Stroke Questions Stroke Team Activated: No D/C Instructions Diet Diet Order/Speech Therapy: INPATIENT Hospital Diet / Speech Therapy Order(s) 07/26/25 12:03 Diet: Cardiac: Calorie-Controlled How many daily calories?: 1800 calorie Discharge order: Continue INPATIENT Hospital Diet / Speech Therapy Orders: Yes Weight Bearing Status: Full weight bearing Keep extremity elevated above heart level: Legs Call your doctor if you observe: Fever of 101 or Higher, Inability to have a bowel movement, Shortness of breath, Dizziness, Fainting spells, Chest pain, Increased palpitations (irregular heartbeat), Calf discomfort, Uncontrolled pain and - (STROKE symptoms: facial droop, slurred speech, inability to get words out, weakness on 1 side of the body and not the other, numbness on 1 side of the body and not the other, inability to maintain your balance sitting or standing, vertigo. ) Catheter: Caba to large bag (May use the leg bag at night. ) DC O2, CPAP, BIPAP Needs Home O2 Discharge instructions: No Pending Tests Upon Discharge: none When: Appointments have been made for you to follow-up with urology, interventional cardiology, your primary care physician and neurology. They are listed later in this document. Meaningful Use Info Meaningful Use Meaningful Use Diagnoses (Choose all that apply): Ischemic CVA (embolic post TAVR) CVA Therapy Assessed for PT,OT and/or ST?: Yes Ischemic Stroke Antithrombotic order at d/c?: Yes Dx of Atrial fib/flutter?: No Anticoagulant at discharge?: No Reason anticoagulant not ordered: Treatment not Indicated Statin Dosing Therapy Reference: STATIN DOSE THERAPY REFERENCE: * Patients > 75 years receive moderate or high dose statin therapy. * Patients 75 years or YOUNGER should receive HIGH intensity statin dose unless contraindicated. You will be required to document reason for non-treatment if statin daily dose does not meet guidelines. HIGH DOSE STATIN THERAPY DAILY Atorvastatin > than or = to 40 mg Rosuvastatin > than or = to 20 mg Amlodipine + Atorvastatin > than or = to 2.5/40 mg Ezetimibe + Simvastatin 10/80 mg Simvastatin 80mg Statins at discharge?: No Reason Statin not ordered: Adverse Reaction to Drug (He will continue Zetia) Primary Dx Acute Ischemic CVA?: Yes IV thrombolytic ordered during stay?: No Reason IV thrombolytic not ordered: Procedure not Indicated Discharge Plan Admission Admit Date/Time: 07/26/25 11:12 Primary Reason for Your Visit: Poststroke debility Attending Provider: Indigo Mello Primary Care Provider: Rudy Almanzar Instructions Patient Instructions: Catheter-Linked Urinary Tract ..., Eating to Prevent Gout, ED Bladder Infection, Male (Adult) Additional Instructions / Restrictions: 1. You are going home with a Caba catheter. I think the reason you retain urine is due to the stroke and also due to autonomic neuropathy. This is dysfunction of the part of the nervous system that controls the functions you don't think about......like emptying the bladder, controlling your heart rate, Causing the arteries to constrict when you stand up so that your blood pressure does not drop and you don't pas out. Your blood pressure drops significantly when you stand up and this was making you lightheaded. We have started you on a medication called Midodrine to prevent the drop in BP when you are standing. You will take this medication 3 times a day. Your BP is mildly elevated when you are lying in bed and sitting but, we must tolerate this to prevent the severe drop in BP when you stand. It is important for you to stay hydrated when you have autonomic neuropathy. Dehydration contributes to the drop in blood pressure. We have decreased the Bumex (diuretic) to 0.5 mg every other day. Your lungs are clear and you have just a trace of edema in your ankles. The weight has been stable. You will need to weigh yourself every morning when you get up and keep a record. If your weight increases by 5 lbs then you will need to increase the Bumex to daily until your weight is back to baseline. Your baseline weight will be whatever your weight is on the first morning you are home. 2. You have done very well on rehab but, there is more work to be done. You will need continued speech therapy, physical therapy and occupational therapy after you discharge. You will have home health care to provide these services. There will also be a nurse to check on the Caba catheter. 3. I have given you some literature to read about the symptoms of a urinary tract infection. Symptoms include but, are not limited to, mental status changes/increased confusion, fevers, shaking chills/sweats, a change in the color of the urine (erin if there is blood), a strong or foul odor to the urine, flank pain, pain in the pelvis and nausea and vomiting. If you have any of these symptoms call your family doctor or go to an urgicare or ER to have your urine tested. 4. You have a nodule in your thyroid and this needs to be addressed at some point after discharge. You will need an ultrasound of the thyroid and then follow up with an casting operator. You have an appt on Tuesday 08/21 to have the ultrasound done at 1 PM. The casting operator, Dr. Christy Soto, has your information and she will review the US and then call you to schedule an appt to see her. 5. You have a history of gout. You take a medication called Allopurinol to prevent gout. Allopurinol decreases the uric acid level to prevent gout. We checked your uric acid level while you were on rehab and it was 8.5 which is very high. You had been taking 300 mg of allopurinol daily. Ideally your uric acid should be less than 6 but, in patients with chronic kidney disease there is a risk of serious side effects with higher doses. There is a condition called AHS (Allopurinol hypersensitivity syndrome) and this can be fatal. We decreased the Allopurinol to 200 mg daily. He has not had any gout since he came to rehab and he has been taking 200 mg daily. There are certain foods that increase uric acid. I am giving you some literature on what foods to avoid. there is a test called a HLA-[id number] which can be done and if it is + then Allopurinol should be avoided. This test is more likely to be + in people of [place], [place] or [place] descent so I doubt he has this allele but, allopurinol has many other adverse effects when given in higher doses and you have to be very careful with this drug. 6. Happy Thankscolinving Alejandro. it has been a pleasure getting to know you and I am very happy with your progress on rehab. If you or your family have any questions after you leave rehab please do not hesitate to call me. OFFICE: [phone] CELL: [phone] NURSES STATION ON REHAB: [phone] Discharge Orders/Prescriptions Prescriptions: New acetaminophen 325 mg Tablet 650 mg PO Q6H PRN PRN (Reason: Pain Score 1-10) Qty: 1 0RF amlodipine 5 mg Tablet 5 mg PO DAILY Qty: 30 0RF allopurinol 100 mg Tablet 200 mg PO DAILYCM Qty: 60 0RF Rx Instructions: Take 2 tabs once a day glimepiride 1 mg Tablet 1 mg PO BREAKFAST Qty: 30 0RF bumetanide 0.5 mg Tablet 0.5 mg PO Q48H Qty: 30 0RF gabapentin 100 mg Capsule 100 mg PO BID Qty: 60 0RF trazodone 50 mg Tablet 50 mg PO QHS Qty: 30 0RF midodrine 5 mg Tablet 5 mg PO TIDCM Qty: 90 0RF olanzapine 2.5 mg Tablet 2.5 mg PO 2200 Qty: 14 0RF Rx Instructions: Take 1 tab at bedtime for 1 week and then discontinue. Resume if any recurrence of agitation sertraline 50 mg Tablet 25 mg PO DAILY Qty: 30 0RF tamsulosin 0.4 mg capsule 0.4 mg PO DAILY Qty: 30 0RF Rx Instructions: Take with supper melatonin 3 mg capsule 3 mg PO QHS Qty: 30 0RF Continued clopidogrel 75 mg tablet 75 mg PO DAILY Jardiance 10 mg tablet 10 mg PO DAILY ezetimibe 10 mg tablet 10 mg PO DAILY aspirin 81 mg tablet,chewable 1 tab PO DAILY melatonin 3 mg tablet 3 mg PO QHS Qty: 30 0RF lansoprazole 15 mg capsule,delayed release(DR/EC) 15 mg PO DAILY Qty: 30 0RF Discontinued amlodipine 10 mg tablet 10 mg PO DAILY bumetanide 0.5 mg tablet 0.5 mg PO DAILY gabapentin 300 mg capsule 300 mg PO BID Soliqua 100/33 100 unit-33 mcg/mL insulin pen 19 unit subcut DAILY tamsulosin 0.4 mg capsule 0.4 mg PO DAILY allopurinol 300 mg tablet 100 mg PO DAILY olanzapine 2.5 mg tablet 5 mg PO QHS trazodone 50 mg tablet 25 mg PO QHS No Action olanzapine 2.5 mg tablet 2.5 mg PO Q8H PRN Other Ambulatory Orders: Thyroid (Routine) Facility: [facility] - Location: [facility] Ordered By: Dr. Indigo Mello Referrals / Follow Up: Dr Morgan [Other, Urology] - 09/01/25 11:30 am Referral Note: with [facility] office Ultrasound [Other] - 08/21/25 1:00 pm Referral Note: thyroid ultrasound Nima Ruiz MD [Non-Staff, Interventional Cardiology] - 10/23/25 10:45 am Rudy Almanzar MD [Primary Care Provider, Family Practice] - 08/31/25 10:00 am Steve Osorio MD [Non-Staff -Ordering Privileges, Neurology] - 08/25/25 1:30 pm Referral Note: with [employer] Christy Fleming MD [Med Staff - Courtesy Staff, Endocrinology] Referral Note: office will call to make appointment Disposition Disposition (needs filled in before D/C Order can be placed): Home Health Service Charges/Coding Visit Charges Inpatient E&M: 01884 Disch Hosp >30min Hospital Course RU Procedures Transthoracic echo (07/14/2025 -this was a limited study and it showed a 62% ejection fraction. Previous ECHO showed no R to L shunt. 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 Postoperatively he developed aphasia and right-sided weakness. CT scan of the brain and CTA were unremarkable except for old strokes (pt's stated he had never been diagnosed with a stroke). MRI of the brain was compatible with scattered areas of acute to early subacute infarction within the bilateral cerebral hemispheres and within the left cerebellar hemisphere. The dominant area of acute to early subacute infarction was identified in the left temporal parietal region. These embolic strokes were thought to be secondary to the TAVR procedure. He has no history of atrial fibrillation. Limited transthoracic echocardiogram on 07/14/2025 showed a 62% ejection fraction. He had previously had an echocardiogram that showed no qacdc-ai-bynl shunt. On 07/16/2025 he was seen by psychiatry for agitation and was diagnosed with delirium. He was started on Zyprexa 2.5 mg nightly with 2.5 mg as needed for agitation. Zyprexa was eventually increased to 5 mg at at bedtime and trazodone 25 mg nightly was ordered. He was transferred to the acute inpatient rehab unit at [facility] on 07/26/2025 for 3 hours of therapy daily to restore function/independence as close as possible to his baseline prior to TAVR. He had a Caba catheter present at presentation to rehab. Alejandro was very agitated at presentation to rehab. He was awake most of the night and was very confused and impulsive. He was constantly setting off the alarms and was uncooperative with therapy. Zyprexa 2.5 mg was added in the AM and he was taking 5 mg at HS. We increased Trazodone to 50 mg at HS and he was started on Melatonin 3 mg at HS. Behavior came under control after a few days and he has been very cooperative and pleasant. He never refuses therapy and he is sleeping well at night. Family felt he was depressed and he was tearful. He was started on Sertraline 25 mg daily and he is no longer tearful. He is looking forward to going home. He is eating well and he is sleeping through the night. He interacts well with staff and is making good eye contact with me when we talk. The Zyprexa was successfully weaned down to 2.5 mg at HS prior to DC. Alejandro is not a big water drinker. He got dehydrated and the creat increased. We decreased the Bumex to 0.5 mg Q48H and he is stable on this. Weight is stable and he has only a trace of ankle edema.......mostly when he does not elevate his legs. His lungs are CTA with excellent air exchange and he denies SOB. The pulse ox on room air ranges from 94% to 98%. Creat at DC is good/stable at 2.39. Alejandro c/o lightheadedness when standing to do therapy. Orthostatic VS were checked and the blood pressure dropped from 124/49 lying down to 83/65 standing. He is persistently bradycardic with HR's ranging from 57-68. He was started on Midodrine 5 mg TID and he has not c/o lightheadedness since starting this medication. Orthostatic vital signs 1 day prior to discharge were blood pressure 130/70 lying down and 128/72 sitting. Standing the blood pressure was 112/70 but he denied being lightheaded. The systolic is ranging from 112-142 when he is up and about. I suspect he has autonomic neuropathy with orthostatic hypotension and urine retention secondary to longstanding diabetes mellitus. Alejandro was retaining urine at admission and came to us with a Caba catheter. A voiding trial was done and he failed. The Caba was reinserted on 07/31/25. I suspect the urine retention is secondary to a neurogenic bladder secondary to autonomic neuropathy secondary to longstanding diabetes mellitus. Will defer further voiding trials to Dr. Caden Morgan, his urologist. Would not attempt to increases Flomax or add any meds that could worsen the orthostatic hypotension. Urine at Dc is clear. Alejandro did well opn rehab and made good progress. At the time of DC he is able to do 6 sit to stands in 30 seconds using his upper extremities to rise. He can ascend/descend 5 steps with two 6 inch steps and three 4 inch steps with 2 handrails at contact-guard assist. He has ambulated up to 315 feet with a front wheel walker at contact-guard assist/standby assist. He is supervision/set up for eating, grooming and upper body dressing. He is standby assist for tub/shower transfer and toileting. He is contact-guard assist for toilet transfer. He requires only minimal assistance with lower body dressing. His modified Tony score has decreased from a 4 at admission to a 2 at discharge. His , Adriel, came in for family training a few times prior to Alejandro's discharge and she feels comfortable taking him home. She also has assistance available from other family members. Alejandro was discharged on 08/19/2025 to home with [facility] for PT/OT/ST/SN. He will be going home with a Caba. He will have a thyroid ultrasound done at [facility] on 08/21/[address] Christy Soto will call him with an appointment after she reviews the results of the ultrasound. He also has a appointments scheduled with Dr. Ruiz, interventional cardiology, Dr. Almanzar (PCP) and Dr. Osorio (neurology). Prior to Dc family was given education on the signs/sx of a UTI.
[2025-08-17 18:00] VITALS: BP 133/58; PULSE 56; RESP 17; TEMP 36.8; O2SAT 97
[2025-08-17 20:16] VITALS: BMI 30.6
[2025-08-17 20:18] VITALS: PULSE 56; RESP 16; O2SAT 97
[2025-08-17] MEDS: MELATONIN 3 MG TABLET PO (21:01)
[2025-08-17] MEDS: Senna/Docusate Sodium 1 Tablet 2 TABLET PO (21:03)
[2025-08-18 05:59] LABS: Hematocrit 32.0 % (40-54); Hemoglobin 10.8 g/dL (13.0-16.5); Mean Corp Hgb Conc 33.8 g/dL (32-36); Mean Corpuscular Volume 91.4 fL (80-94); Mean Platelet Vol. 10.7 fl (6.2-12.0); Platelet Count 152 K/mm3 (150-450); RBC Distribution Width CV 14.8 % (11.6-14.6); RBC Distribution Width SD 49.1 fl (35.1-43.9); Red Blood Count 3.50 M/mm3 (4.6-6.2); White Blood Count 8.9 K/mm3 (4.4-11.0)
[2025-08-18 06:00] VITALS: BP 143/65; PULSE 60; RESP 16; TEMP 36.4; O2SAT 96
[2025-08-18] MEDS: Sodium Chloride 0.65% 1 SPRAY SPRAY.BTL 2 SPRAY NASAL ×3 (06:21→21:51)
[2025-08-18] MEDS: CARBOXYMETHYLCELLULOSE SODIUM 15 ML OPHTH DROPS 2 DRP EACH EYE ×5 (06:21→21:51)
[2025-08-18 06:23] LABS: Anion Gap 11 (5-15); BUN 51 mg/dL (4-19); BUN/Creat Ratio 21.2 RATIO (10-20); Calcium,Total 8.9 mg/dL (7.6-11.0); Carbon Dioxide 21.0 mmol/L (21.0-32.0); Chloride 106 mmol/L (98-108); Estimated Creatinine Clearance 26.37 ml/min (50-250); Glucose 91 mg/dL (70-99); Potassium 4.9 mmol/L (3.3-5.1)
[2025-08-18] MEDS: Heparin Injection (Vial) 5,000 UNIT/ML VIAL 5000 UNIT SC ×2 (08:09→21:51)
[2025-08-18 09:03] VITALS: BP 112/70; BP 128/72; BP 130/70; PULSE 60; PULSE 62
[2025-08-18] MEDS: CARBOXYMETHYLCELLULOSE SODIUM 1 DRP DROPS OPHTHALMIC (13:47)
[2025-08-18 14:12] VITALS: BMI 30.6
--- NOTE | 2025-08-18 17:31 | NURSING ---
educated on de oliveira care and on how to empty foely. voiced understanding and preformed.
[2025-08-18 17:41] LABS: AST(SGOT) 17 U/L (<=37); Alanine Aminotransfer ALT/SGPT 8 U/L (<=46); Albumin, Serum 3.6 g/dL (3.4-4.8); Alkaline Phosphatase 83 U/L (40-129); Bilirubin, Direct 0.25 mg/dL (0.00-0.30); Globulin 3.0 g/dL (2.2-4.2)
[2025-08-18 17:48] VITALS: BP 141/66; PULSE 68; RESP 18; TEMP 36.6; O2SAT 97
[2025-08-18 19:51] VITALS: BMI 30.6
[2025-08-18 21:05] VITALS: PULSE 68; RESP 18
[2025-08-18] MEDS: MELATONIN 3 MG TABLET PO (21:52)
[2025-08-18] MEDS: Senna/Docusate Sodium 1 Tablet 2 TABLET PO (21:52)
[2025-08-19 05:50] VITALS: BP 145/65; RESP 16; TEMP 36.8; O2SAT 97
[2025-08-19 05:51] VITALS: BMI 30.7
[2025-08-19] MEDS: Sodium Chloride 0.65% 1 SPRAY SPRAY.BTL 2 SPRAY NASAL (06:30)
[2025-08-19] MEDS: CARBOXYMETHYLCELLULOSE SODIUM 15 ML OPHTH DROPS 2 DRP EACH EYE ×2 (06:30→07:42)
[2025-08-19] MEDS: Senna/Docusate Sodium 1 Tablet 2 TABLET PO (07:41)
[2025-08-19] MEDS: Heparin Injection (Vial) 5,000 UNIT/ML VIAL 5000 UNIT SC (07:42)
[2025-08-19 10:30] VITALS: BMI 30.7
--- NOTE | 2025-08-19 14:21 | NURSING ---
discharged home with family. discharge instructions, medications and appointments reviewed with pt and family. denies questions or concerns
[2025-08-19 14:23] VITALS: BP 138/70; PULSE 60; RESP 17; TEMP 36.7; O2SAT 96
== END 2025-08-19 14:24 | disposition home health service (06) | DRG 57 ==
LOC: TCU 11:39 → RU 11:46
PROVIDERS: Admitting Provider Internal Medicine; PCP Family Medicine; Visit Provider Internal Medicine
DX: I69.351 Hemiplegia and hemiparesis following cerebral infarction affecting right dominant side (principal); I97.821 Postprocedural cerebrovascular infarction following other surgery; N18.4 Chronic kidney disease, stage 4 (severe); T83.83XA Hemorrhage due to genitourinary prosthetic devices, implants and grafts, initial encounter; E11.43 Type 2 diabetes mellitus with diabetic autonomic (poly)neuropathy; D63.1 Anemia in chronic kidney disease; F32.9 Major depressive disorder, single episode, unspecified; E04.1 Nontoxic single thyroid nodule; I12.9 Hypertensive chronic kidney disease with stage 1 through stage 4 chronic kidney disease, or unspecified chronic kidney disease; I69.320 Aphasia following cerebral infarction; Z68.30 Body mass index [BMI] 30.0-30.9, adult; Z95.2 Presence of prosthetic heart valve; E86.0 Dehydration; E78.5 Hyperlipidemia, unspecified; I95.1 Orthostatic hypotension; M15.0 Primary generalized (osteo)arthritis; Z79.4 Long term (current) use of insulin; M1A.9XX0 Chronic gout, unspecified, without tophus (tophi); I25.10 Atherosclerotic heart disease of native coronary artery without angina pectoris; I44.7 Left bundle-branch block, unspecified; K21.9 Gastro-esophageal reflux disease without esophagitis; I44.0 Atrioventricular block, first degree; E11.22 Type 2 diabetes mellitus with diabetic chronic kidney disease; I69.322 Dysarthria following cerebral infarction; R33.8 Other retention of urine; N31.9 Neuromuscular dysfunction of bladder, unspecified; N40.1 Benign prostatic hyperplasia with lower urinary tract symptoms; E66.9 Obesity, unspecified; Z79.84 Long term (current) use of oral hypoglycemic drugs; Z87.891 Personal history of nicotine dependence; Z23 Encounter for immunization; Y83.1 Surgical operation with implant of artificial internal device as the cause of abnormal reaction of the patient, or of later complication, without mention of misadventure at the time of the procedure; Z79.82 Long term (current) use of aspirin; Z79.899 Other long term (current) drug therapy; R41.0 Disorientation, unspecified; R31.9 Hematuria, unspecified; Y73.1 Therapeutic (nonsurgical) and rehabilitative gastroenterology and urology devices associated with adverse incidents
CPT/HCPCS: 36415; 80048; 80053; 80076; 81001; 82962; 83735; 84100; 84439; 84443; 84550; 85014; 85018; 85025; 85027; 87086; 92507; 92523; 94668; 97110; 97112; 97116; 97162; 97166; 97530; 97535

== ENCOUNTER → 2025-08-21 | Outpatient (CLI) | payer MEDICARE, SELFPAY ==
--- NOTE | 2025-08-21 12:58 | US_ITS ---
PROCEDURE: THYROID 08/21/2025 REASON FOR EXAM: 3.1 CM THYROID NODULE TECHNIQUE: Procedure Code: USTHY Modality: US Procedure: THYROID COMPARISON: None FINDINGS: Right thyroid lobe size: 6.4 cm 3.2 cm 3 cm Left thyroid lobe size: 5.6 cm 1.9 cm 2.2 cm Isthmus: 1.3 cm Background parenchymal echotexture is homogeneous. Nodules: . Lobe: Right, Location: Superior, Size: 3.3 cm 3.1 cm x 2.4 cm, Stability: N/A Composition: Mixed cystic and solid (+1) Echogenicity: Hypoechoic (+2) Margin: Smooth (+0) Shape: Wider than tall (+0) Echogenic Foci: None (+0) TI-RADS: 3 . Lobe: Right, Location: Midpole, Size: 3.5 cm 3.4 cm 3.5 cm, Stability: N/A Composition: Mixed cystic and solid (+1) Echogenicity: Hypoechoic (+2) Margin: Smooth (+0) Shape: Wider than tall (+0) Echogenic Foci: None (+0) TI-RADS: 3 Complex nodule in the midportion of the left lobe of the thyroid measuring 2 cm x 1.4 cm x 1.9 cm. Tie rads category 3. Complex nodule in the upper pole of the left lobe of the thyroid measuring 1.3 cm 0.7 cm x 0.7 cm. Tie rads category 3. 1 cm x 0.9 cm x 0.5 cm complex nodule in the upper pole of the left lobe. Tie rads category 3. US/Thyroid IMPRESSION: Dominant nodules in the right lobe of the thyroid as described. Tie rads categ ory 3. Dominant nodules in the left lobe as described. Tie rads category 3. Biopsy recommended. RECOMMENDATION: Based on most suspicious nodule. Nodule size = largest diameter Only evaluate nodule if =>5 mm. Growth > 20% in 2 dimensions = worsening. Follow up to 4 nodules. Recommend biopsy for no more than 2 nodules. Reading Location: [id number]
--- OUTSIDE RECORDS SUMMARY | 2025-08-21 13:08 | XMS RPT_ITS | CCD ---
Author Organization [facility] Care Team Providers Care Travel Agency Manager Name Role Phone Daniel Almanzar Unavailable [phone] Unavailable Unavailable Unavailable Primary Care Provider Unavaileyad e Unavailable Primary Care Provider Unavaileyad peña PROVIDER, UNKNOWN Referring Unavailable Daniel Almanzar MD Primary Care Provider [phone] Daniel Almanzar MD Unavailable [phone] Daniel Almanzar Unavailable Gopi Vergara Unavailable Unavailable Kapil Orozco Unavailable Yohan, Dr. Daniel Ray Primary Care Un available Kapil Orozco Attending Unavailable Yohan, Dr. Daniel Ray Primary Care Un available Jai, Dr. Gopi Hightower Attending Unava ilable Sippey, Dr. Marks Admitting Unavailable Sippey, Dr. Marks Attending Unavailable Sippey, Dr. Marks Referring Unavailable Yohan, Dr. Daniel Ray Primary Care Un available Yohan, Dr. Daniel Ray Primary Care Un available Kapil Orozco Attending Unavailable Unavailable Primary Care Provider UnavailMARY Hernandez Attending Unavailable DIEGO GORE Attending Unavailable MARY JUNIOR Attending Unavailable Daniel Almanzar MD Primary Care Provider Daniel Almanzar MD Unavailable [phone] Rose Mary Blanco Unavailable Daniel Almanzar MD Unavailable [phone] Surinder Padron RN Unavailable Unavailable Daniel Almanzar MD Primary Care Provider Daniel Almanzar MD Unavailable [phone] Rose Mary Blanco Unavailable Yohan ABRAMS, Daniel T Unavailable Vito KUO, Surinder Unavailable Unavailable Vito KUO, Surinder Unavailable Unavailable Furness , Daniel T Unavailable Stepan RN, Erica Unavailable Abram RN, Prabhakar Unavailable KITCHEN NYA, NIMA RADHA Admitting Unava ilable KITCHEN NYA, NIMA RADHA Attending Unava ilable FURNESS, DANIEL T Primary Care Unavailable TATI PHOENIX Referring Unavailable FURNESS, DANIEL T Primary Care Unavailable KITCHEN NYA, NIMA RADHA Referring Unava ilable FURNESS, DANIEL T Primary Care Unavailable FURNESS, DANIEL T Primary Care Unavailable NESTOR BEASLEY Attending Unavailable KITCHEN NYA, NIMA RADHA Referring Unava ilable FURNESS, DANIEL T Primary Care Unavailable FURNESS, DANIEL T Primary Care Unavailable ASHELFAH, GHASEM E Admitting Unavailable ASHELFAH, GHASEM E Attending Unavailable KAPIL OROZCO Referring Unavailable FURNESS, DANIEL T Primary Care Unavailable FURNESS, DANIEL T Primary Care Unavailable SANYA SHIN Attending Unavailable SANYA SHIN Referring Unavailable FURNESS, DANIEL T Primary Care Unavailable KAPIL OROZCO Referring Unavailable FURNESS, DANIEL T Primary Care Unavailable SRIKANTH HOWELL Referring Unavailable FURNESS, DANIEL T Primary Care Unavailable FURNESS, DANIEL T Primary Care Unavailable CALEB LUCIA Admitting Unavailable LUCIACALEB Turner Attending Unavailable FURNESS, DANIEL T Primary Care Unavailable FURNESS, DANIEL T Primary Care Unavailable GOPI VERGARA Attending Unavailable FURNESS, DANIEL T Primary Care Unavailable KYUNG ROLLE Admitting Unavailable KITCHEN NYA, NIMA RADHA Consulting Unava ilable KYUNG ROLLE Attending Unavailable KITCHEN NYA, NIMA RADHA Attending Unava ilable FURNESS, DANIEL T Primary Care Unavailable KAPIL OROZCO Attending Unavailable FURNESS, DANIEL T Primary Care Unavailable FURNESS, DANIEL T Attending Unavailable FURNESS, DANIEL T Referring Unavailable FURNESS, DANIEL T Primary Care Unavailable KAPIL OROZCO Attending Unavailable FURNESS, DANIEL T Primary Care Unavailable FURNESS, DANIEL T Attending Unavailable FURNESS, DANIEL T Primary Care Unavailable FURNESS, DANIEL T Referring Unavailable YOUNGSRIKANTH Attending Unavailable FURNESS, DANIEL T Referring Unavailable FURNESS, DANIEL T Primary Care Unavailable ADRIANA HOWELL Attending Unavailable FURNESS, DANIEL T Primary Care Unavailable LUCIACALEB Attending Unavailable FURNESS, DANIEL T Primary Care Unavailable FURNESS, DANIEL T Primary Care Unavailable ADRIANA HOWELL Attending Unavailable ADRIANA HOWELL Referring Unavailable FURNESS, DANIEL T Primary Care Unavailable FURNESS, DANIEL T Attending Unavailable FURNESS, DANIEL T Primary Care Unavailable FURNESS, DANIEL T Attending Unavailable FURNESS, DANIEL T Primary Care Unavailable FURNESS, DANIEL T Attending Unavailable FURNESS, DANIEL T Referring Unavailable FURNESS, DANIEL T Primary Care Unavailable KITCHEN NIMA FAY Attending Unava ilable FURNESS, DANIEL T Referring Unavailable FURNESS, DANIEL T Primary Care Unavailable FURNESS, DANIEL T Primary Care Unavailable FURNESS, DANIEL T Primary Care Unavailable ADRIANA HOWELL Attending Unavailable YOUNGADRIANA Referring Unavailable FURNESS, DANIEL T Primary Care Unavailable KITCHEN NYANIMA Attending Unava ilable FURNESS, DANIEL T Primary Care Unavailable FURNESS, DANIEL T Primary Care Unavailable FURNESS, DANIEL T Attending Unavailable FURNESS, DANIEL T Primary Care Unavailable FURNESS, DANIEL T Primary Care Unavailable DECLAN SALVADOR Attending Unavailable FURNESS, DANIEL T Primary Care Unavailable SHEREEN, MATILDE Qeuzada Attending Unavailable LUCIA, CALEB Back Referring Unavailable FURNESS, DANIEL T Primary Care Unavailable SHEREENMATILDE BRENNAN Admitting Unavailable SHEREEN, MATILDE Quezada Attending Unavailable LUCIACALEB Referring Unavailable FURNESS, DANIEL T Primary Care Unavailable SHEREENMATILDE Admitting Unavailable SHEREEN, MATILDE Quezada Attending Unavailable FURNESS, DANIEL T Primary Care Unavailable SHEREENMATILDE Attending Unavailable FURNESS, DANIEL T Primary Care Unavailable FURNESS, DANIEL T Primary Care Unavailable SHEREENMATILDE Attending Unavailable FURNESS, DANIEL T Primary Care Unavailable DOUGLAS ACKERMAN Attending Unavailable FURNESS, DANIEL T Primary Care Unavailable SHEREENMATILDE Attending Unavailable FURNESS, DANIEL T Primary Care Unavailable DOROTHY BARBOSA Referring Unavailable FURNESS, DANIEL T Primary Care Unavailable Amol DIESEL SERVICE APPRENTICE-MINE ENGINEERING SUPERVISOR, Rose Mary Quezada Unavailable DOROTHY BARBOSA Attending Unavailable NIMA PUTNAM Referring Unava ilable FURNESS, DANIEL T Primary Care Unavailable JOSEF RODRIGUES Attending Unavailable NIMA PUTNAM Referring Unava ilable FURNESS, DANIEL T Primary Care Unavailable Furness Daniel ABRAMS T Primary Care Provider Daniel Almanzar MD Unavailable [phone] Amol DIESEL SERVICE APPRENTICE-MINE ENGINEERING SUPERVISOR, Rose Mary A Unavailable Yohan ABRAMS, Daniel Vázquez Unavailable MARQUEZ DO Attending Unavailable MARQUEZ DO Admitting Unavailable Furness Daniel ABRAMS Primary Care Provider Daniel Almanzar MD Unavailable [phone] Amol DIESEL SERVICE APPRENTICE-MINE ENGINEERING SUPERVISOR, Rose Mary A Unavailable Daniel Almanzar MD Unavailable [phone] FURNESS, DANIEL T Primary Care Unavailable FURNESS, DANIEL T Primary Care Unavailable ROSE MARY MATOS Referring Unavailab le FURNESS, DANIEL T Primary Care Unavailable FURNESS, DANIEL T Primary Care Unavailable ASHELFLOLA, CHEIKH Peña Referring Unavailable DOROTHY BARBOSA Admitting Unavailable FURNESS, DANIEL T Primary Care Unavailable ADRIEL PENA Attending Unavailabl e GINA DAVIS Consulting Unavailable Furness, Daniel Primary Care Unavailable SemenIndigo brandt Attending Unavaila ble Sementi, Indigo Tubbs Admitting Unavaila ble Sementi, Indigo Tubbs Consulting Unavaila ble Kaitlynn Cummings Attending Finn lable Allergies Allergy Classification Reported Allergen(s) Allergy Type Date of Onset Reaction(s) Facility HMG-CoA Reductase Inhibitors (statins) (2 sources) Hmg-Coa Reductase Inhibitors (Statins); Translations: [Statins] Drug Allergy 3 [facility] (20 sources) Hmg-Coa Reductase Inhibitors (Statins); Translations: [Statins] Allergy to drug (finding) Throat Swelling [facility] Work Phone: (20 sources) HMG-CoA reductase inhibitor; Translations: [[id number] REDUCTASE INHIBITORS] Drug Allergy 3 Swelling, Unknown [facility] (2 sources) gabapentin Drug Allergy 3 Unknown [facility] (20 sources) pregabalin; Translations: [PREGABALIN] Drug Allergy 3 Unknown [facility] Work Phone: (20 sources) Iodine; Translations: [IODINE] Drug Allergy 5 Other, Rash [facility] (1 source) Iodine Drug Allergy 5 [facility] (1 source) Hqqaoir-Stl-Azk Reductase Inhibitor Drug allergy (disorder) 5 [facility] Rep[facility] Medications Current Medications Medication Drug Class(es) Dates Sig (Normalized) Sig (Original) acetaminophen 325 mg oral tablet (11 sources) Start: 03-04-2025 take 1 tablet by mouth every six hours as needed Start: 01-19-2025 take 1 tablet by ernst th every six hours as needed 650 mg, oral, Every 6 hours PRN, pain mild (1-3), first line, Starting on Sun01/19/25 at 1023, If inadequate response within 60 minutes, proceed to next-line agent for same PRN reason or contact provider if no further options ordered., If ordered PRN for pain, nurse is permitted to administer this medication for higher pain scores based on patient preference? Yes Start: 10-19-2024 take 1 tablet by ernst th every four hours as needed acetaminophen (Tylenol) tablet 650 mg acetaminophen 325 mg / HYDROcodone bitartrate 5 mg oral tablet (20 sources) Opioid Agonist Start: 03-04-2025 take 1 tablet by mouth every six hours as needed Start: 10-24-2024 End: 04-21-2025 take 1 tablet by mouth every six hours as needed HYDROcodone-acetaminophen (Tensed) 5-325 mg tablet Indications: bladder tumor Take 1 tablet by mouth every 6 hours if needed for severe pain (7 - 10). 20 tablet 10/28/2024 04/21/2025 Discontinued (Med List Cleanup) allopurinol 100 mg oral tabl et (20 sources) Xanthine Oxidase Inhibitor Start: 07-26-2025 Start: 10-06-2019 End: 07-26-2025 Comment on above: Take 300 mg by mouth once daily. aspirin 81 mg delayed releas e oral tablet (20 sources) Platelet Aggregation Inhibitor, Nonsteroidal Anti-inflammatory Drug Start: 07-14-2025 Start: 07-13-2025 End: 07-13-2025 Start: 03-05-2025 take 81 mg by mouth once daily 81 mg, oral, Daily, First dose on Thelma 03/05/25 at 0900, Indications: prevention of cerebrovascular accident Start: 01-19-2025 End: 01-19-2025 take 81 mg by mouth once 81 mg, oral, Once, On Mon at 0815, For 1 dose, Preprocedure Start: 12-08-2024 End: 12-08-2025 Start: 10-06-2019 aspirin, enter ic coated (ASPIRIN, ENTERIC COATED) 81 mg EC tablet Take by mouth q 24 HR. 0 10/06/2019 Active Start: 10-06-2019 End: 04-26-2023 take 1 tablet by mouth once daily Aspirin 81 MG Oral Tablet Delayed Release TAKE 1 TABLET DAILY DIRECTED. Quantity: 30 Refills: 0 Ordered: 06-Oct-2019 DO Start : 06-Oct-2019 End : 26-Apr-2023 Complete End: 05-29-2024 aspirin 81 mg chewable table t Chew 1 tablet (81 mg) once daily. 05/29/2024 Discontinued (Entered in Error) Comment on above: Take by mouth q 24 H R. benzocaine 15 mg / menthol 3.6 mg oral lozenge (1 source) Standardized Chemical Allergen Start: 07-13-2025 bumetanide 0.5 mg oral tablet (20 sources) Loop Diuretic Start: 03-05-2025 take 0.5 mg by mouth once daily 0.5 mg, oral, Daily, First dose on Thelma 03/05/25 at 0900 Start: 02-02-2025 End: 04-21-2026 Start: 08-25-2024 End: 08-25-2025 take 1 tablet by mouth twice daily bumetanide (Bumex) 1 mg tablet Indications: Edema of both legs Take 1 tablet (1 mg) by mouth 2 times a day. 60 tablet 11 08/25/2024 09/29/2024 Discontinued (Therapy completed) Start: 06-18-2023 End: 08-02-2024 take 1 tablet by mouth twice daily bumetanide (Bumex) 1 mg tablet Indications: Edema of both legs Take 1 tablet (1 mg) by mouth 2 times a day. 60 tablet 11 08/03/2023 08/02/2024 Active cetirizine hydrochloride 10 mg oral tablet (9 sources) Histamine-1 Receptor Antagonist Start: 03-05-2025 End: 07-26-2025 take 10 mg by mouth once daily 10 mg, oral, Daily, First dose on Thelma 03/05/25 at 0900 take 2 tablets by mouth once kathe ly cetirizine (ZyrTEC) 5 mg tablet Indications: allergic rhinitis Take 2 tablets (10 mg) by mouth once daily. Active ciprofloxacin 250 mg oral tablet (8 sources) Quinolone Antimicrobial Start: 03-06-2025 End: 03-14-2025 take 1 tablet by mouth once daily in the evening ciprofloxacin (Cipro) 250 mg tablet Indications: Urinary Tract Infection Take 1 tablet (250 mg) by mouth once daily for 8 doses. 8 tablet 03/05/2025 2:29 PM EDT 03/06/2025 03/14/2025 Active Start: 03-05-2025 take 250 mg by mouth once daily 250 mg, oral, Daily, First dose on Thelma 03/05/25 at 0900, Separate at least 2 hours before or 6 hours after antacids or other products containing calcium, iron, or zinc., Dosing of this medication varies based on severity of illness. Does this patient have sepsis or concern for sepsis (probable or documented infection plus systemic manifestations of infection)? No, Suspected Indication (Select all that apply): Urinary Tract Infection, Type of Therapy: Definitive, Based on Culture, Type of Urinary Tract Infection: Uncomplicated, Indications: Urinary Tract Infection Start: 02-28-2025 End: 03-07-2025 take 1 tablet by mouth twice daily ciprofloxacin (Cipro) 500 mg tablet Indications: Acute cystitis with hematuria Take 1 tablet (500 mg) by mouth 2 times a day for 7 days. 14 tablet 02/28/2025 03/07/2025 Active Start: 02-28-2025 End: 02-28-2025 take 500 mg by mouth once 500 mg, oral, Once, On Sat at 0255, For 1 dose, Separate at least 2 hours before or 6 hours after antacids or other products containing calcium, iron, or zinc., Dosing of this medication varies based on severity of illness. Does this patient have sepsis or concern for sepsis (probable or documented infection plus systemic manifestations of infection)? Yes, Suspected Indication (Select all that apply): Urinary Tract Infection, Type of Therapy: Empiric, Type of Urinary Tract Infection: Uncomplicated, Indications: Urinary Tract Infection Start: 10-28-2024 End: 10-31-2024 take 1 tablet by mouth twice daily ciprofloxacin (Cipro) 500 mg tablet Indications: bladder tumor Take 1 tablet (500 mg) by mouth 2 times a day for 3 days. 6 tablet 10/28/2024 10/31/2024 Active clobetasol propionate 0.5 mg/ml topical cream (5 sources) Corticosteroid Start: 11-09-2022 clobetasol (TEMOVATE) 0.05 % cream APPLY A THIN LAYER TO THE BILATERAL HANDS AND FEET TWICE DAILY FOR 2 WEEKS TAKING ONE WEEK OFF PRIOR TO REAPPLYING 0 11/09/2022 Active Comment on above: APPLY A THIN LAYER T O THE BILATERAL HANDS AND FEET TWICE DAILY FOR 2 WEEKS TAKING ONE WEEK OFF PRIOR TO REAPPLYING docusate sodium 50 mg / sennosides, chcf 8.6 mg oral tablet (2 sources) Start: 07-26-2025 Start: 07-21-2025 Drug or medicament (substanc e) (2 sources) Start: 07-13-2025 empagliflozin 10 mg oral tab let (20 sources) Sodium-Glucose Cotransporter 2 Inhibitor Start: 04-20-2025 End: 10-17-2025 Start: 03-05-2025 10 mg, oral, D flako, First dose on Thelma 03/05/25 at 0900, Please hold this med 72 hours prior to an NPO event in duration of 12 hours or more., Indications: type 2 diabetes mellitus Start: 02-06-2024 End: 02-05-2025 take 1 tablet by mouth once daily empagliflozin (Jardiance) 25 mg Indications: Type 2 diabetes mellitus with diabetic polyneuropathy, without long-term current use of insulin (Multi) Take 1 tablet (25 mg) by mouth once daily. 30 tablet 02/06/2024 05/08/2024 Discontinued (Therapy completed) Start: 11-05-2023 End: 03-10-2025 take 1 tablet by mouth once daily empagliflozin (Jardiance) 10 mg Indications: type 2 diabetes mellitus Take 1 tablet (10 mg) by mouth once daily. 30 tablet 5 09/11/2024 Active EPINEPHrine 0.01 mg/ml / lidocaine hydrochloride 20 mg/ml injectable solution (1 source) Antiarrhythmic, alpha-Adrenergic Agonist, beta-Adrenergic Agonist, Catecholamine, Amide Local Anesthetic Start: 07-13-2025 ezetimibe 10 mg oral tablet (20 sources) Dietary Cholesterol Absorption Inhibitor Start: 04-20-2025 Start: 03-26-2025 take 1 tablet by ernst once daily ezetimibe (Zetia) 10 mg tablet Indications: a Take 1 tablet (10 mg) by mouth once daily. 30 tablet 03/26/2025 Active Start: 04-26-2023 Ezetimibe 10 M G Oral Tablet Quantity: 0 Refills: 0 Ordered: 26-Apr-2023 DO Start : 26-Apr-2023 Active Start: 04-02-2023 End: 03-21-2025 take 1 tablet by mouth once daily ezetimibe (Zetia) 10 mg tablet Indications: hyperlipidemia Take 1 tablet (10 mg) by mouth once daily. 30 tablet 03/21/2024 03/21/2025 Active Comment on above: Take 10 mg by mouth once daily. [facility] ([facility] Anti-epileptic Agent Start: 04-06-2025 Start: 03-04-2025 take 1 capsule by [facility] twice daily 300 mg, oral, 2 times daily, First dose on Sun03/04/25 at 2100, Capsules may be opened and sprinkled on food (eg, applesauce, orange juice, pudding, Indications: postherpetic neuralgia Start: 10-19-2024 take 1 capsule by mo [facility] twice daily 300 mg, oral, 2 times daily, First dose on Sun10/19/24 at 0200, Capsules may be opened and sprinkled on food (eg, applesauce, orange juice, pudding Start: 09-19-2023 End: 06-18-2024 take 1 capsule by mouth twice daily gabapentin (NEURONTIN) 300 mg capsule Indications: Diabetic peripheral neuropathy (HCC) Take 1 capsule by mouth two times a day for 90 days. 180 capsule 3 03/20/2024 06/18/2024 Active Start: 04-17-2023 End: 04-16-2024 take 2 capsules by mouth twice daily, then take 2 capsules by mouth once daily in the morning, then take 2 capsules by mouth once daily in the evening gabapentin (Neurontin) 100 mg capsule Indications: Type 2 diabetes mellitus with diabetic polyneuropathy, without long-term current use of insulin (CMS/HCC) Take 2 capsules (200 mg) by mouth 2 times a day. TAKE 2 CAPSULES EVERY MORNING AND 2 CAPS EVERY EVENING 360 capsule 3 04/17/2023 04/16/2024 Active Start: 11-20-2022 End: 05-06-2023 take 1 capsule by mouth twice daily gabapentin (NEURONTIN) 300 mg capsule Indications: Diabetic peripheral neuropathy (HCC) Take 1 capsule by mouth twice daily for 30 days. 60 capsule 5 04/06/2023 05/06/2023 Active Start: 07-03-2022 take 2 capsules by m outh once daily in the morning, then take 2 capsules by mouth once daily in the evening Gabapentin 100 MG Oral Capsule TAKE 2 CAPSULE Every morning AND 2 CAPSULES EVERY EVENING Quantity: 120 Refills: 2 Ordered: 07-Aug-2022 Daniel Almanzar MD Start : 03-Jul-2022 Active Start: 07-03-2022 End: 11-20-2022 take 2 capsules by mouth twice daily, then take 2 capsules by mouth once daily in the morning, then take 2 capsules by mouth once daily in the evening gabapentin (Neurontin) 100 mg capsule Take 2 capsules (200 mg) by mouth 2 times a day. TAKE 2 CAPSULES EVERY MORNING AND 2 CAPS EVERY EVENING 0 07/03/2022 Active Start: 07-03-2022 End: 11-20-2022 take 1-2 capsules by mouth once daily at bedtime gabapentin (NEURONTIN) 100 mg capsule TAKE 1 TO 2 CAPSULES BY MOUTH ONCE DAILY IN THE AFTERNOON AND AT BEDTIME 0 07/07/2022 11/20/2022 Discontinued Comment on above: Take 2 capsules by m outh twice daily for 30 days. TAKE 1 TO 2 CAPSULES BY MOUTH ONCE DAILY IN THE AFTERNOON AND AT BEDTIME Star with 1 caps by mouth at bedtime for 5-7 days, if no side effects then increase to BID Take 1 capsule by mo uth twice daily for 30 days. glimepiride 2 mg oral tablet (20 sources) Sulfonylurea Start: End: take 1 tablet by mouth twice daily glimepiride (Amaryl) 4 mg tablet Indications: Type 2 diabetes mellitus with diabetic polyneuropathy, without long-term current use of insulin (Multi) Take 1 tablet (4 mg) by mouth 2 times a day. 60 tablet 11 10/03/2023 05/29/2024 Discontinued Start: 06-18-2023 End: 08-02-2024 take 1 tablet by mouth twice daily glimepiride (Amaryl) 2 mg tablet Indications: Type 2 diabetes mellitus without complication, unspecified whether group home insulin use (Multi) Take 1 tablet (2 mg) by mouth 2 times a day. 60 tablet 05/29/2024 06/28/2024 Active glipiZIDE 5 mg oral tablet (20 sources) Sulfonylurea Start: 05-02-2023 End: 05-01-2024 take 1 tablet by mouth once daily glipiZIDE (Glucotrol) 5 mg tablet Indications: Type 2 diabetes mellitus with diabetic polyneuropathy, without long-term current use of insulin (CMS/HCC) Take 1 tablet (5 mg) by mouth once daily. 30 tablet 11 05/02/2023 05/01/2024 Active Start: 07-29-2019 End: 04-01-2024 take 1 tablet by mouth twice daily glipiZIDE (GLUCOTROL) 5 mg tablet Take 5 mg by mouth twice daily. 2022 Active Comment on above: Take 5 mg by mouth t wice daily. glucagon (rdna) 1 mg injecti on (6 sources) Antihypoglycemic Agent Start: 07-14-2025 Start: 03-04-2025 Start: 10-19-2024 1 mg, intramus cular, Every 15 min PRN, low blood sugar - see comments, For blood glucose less than or equal to 70 mg/dL and no IV access, Starting on 10/19/24 at 0007, Give until blood glucose is 100 mg/dL or greater. If patient DOES NOT HAVE secure IV access & patient is unconscious, NPO or is unable to eat or drink. glucosamine/chondr hogue A sod (OSTEO BI-FLEX ORAL) (20 sources) take 1 capsule by mouth once daily glucosamine/chondr hogue A sod (OSTEO BI-FLEX ORAL) Indications: Supplement Take 1 capsule by mouth once daily. Active take 1 capsule by mouth once kathe ly glucosamine/chondr hogue A sod (OSTEO BI-FLEX ORAL) Take 1 capsule by mouth once daily. Suspended take 1 capsule by mouth once kathe ly glucosamine/chondr hogue A sod (OSTEO BI-FLEX ORAL) Take 1 capsule by mouth once daily. Active 50 ml glucose 500 mg/ml pref illed syringe (6 sources) Start: 07-14-2025 Start: 03-04-2025 Start: 10-19-2024 12.5 g, intrav enous, Every 15 min PRN, For blood glucose 41 to 70 mg/dL, Starting on Sun10/19/24 at 0007, May repeat until blood glucose level reaches 100 mg/dL or greater. Push 2 - 3 mL/minute if patient has secure IV access. 1 ml heparin sodium, porcine 5000 unt/ml injection (2 sources) Unfractionated Heparin, Anti-coagulant Start: 07-15-2025 inject 5000 [IU] by subcutaneous injection every eight hours Start: 03-04-2025 inject 5000 [IU] by subcutaneous injection every eight hours 5,000 Units, subcutaneous, Every 8 hours, First dose on Sun03/04/25 at 1745 hydroCHLOROthiazide 25 mg / losartan potassium 100 mg oral tablet (20 sources) Thiazide Diuretic, Angiotensin 2 Receptor Jami Start: 06-25-2020 take 1 tablet by mouth once daily losartan-hydroCHLOROthiazide (HYZAAR) 100-25 mg per tablet Take 1 tablet by mouth once daily. 05/19/2022 Active Comment on above: Take 1 tablet by once daily. 0.5 ml HYDROmorphone hydrochloride 1 mg/ml prefilled syringe (4 sources) Opioid Agonist Start: 03-30-2025 0.5 mg, intravenous, Every 5 min PRN, pain severe (7-10), first line, Starting on Sun03/30/25 at 1341, Recovery (only), Max total of 4 mg regardless of dose. Start: 03-30-2025 0.2 mg, intrav enous, Every 5 min PRN, pain moderate (4-6), first line, Starting on Sun03/30/25 at 1341, Recovery (only), Max total of 4 mg regardless of dose. Start: 10-19-2024 0.2 mg, intrav enous, Every 3 hours PRN, pain moderate (4-6), first line, Starting on 10/19/24 at 1615 Start: 10-18-2024 0.5 mg, intrav enous, Every 3 hours PRN, pain severe (7-10), first line, Starting on 10/18/24 at 2210 insulin glargine 100 unt/ml injectable solution (5 sources) Insulin Analog Start: 07-14-2025 End: 07-21-2025 Start: 03-05-2025 19 Units, subc utaneous, Every morning, First dose on Thelma 03/05/25 at 0900, Long-acting insulin should be given regardless of PO intake. Consider dose reduction if concerned for NPO or glucose trending less than 100 mg/dL. Start: 10-19-2024 inject 19 [IU] by hogue bcutaneous injection once daily before breakfast 19 Units, subcutaneous, Daily before breakfast, First dose on 10/19/24 at 0700 3 ml insulin glargine 100 un t/ml / lixisenatide 0.033 mg/ml pen injector (20 sources) Insulin Analog Start: 03-18-2025 Start: 03-16-2025 insulin glargi ne-lixisenatide (Soliqua 100/33) 100 unit-33 mcg/mL insulin pen Indications: type 2 diabetes mellitus Inject 30 Units under the skin once daily. 15 mL 11 03/16/2025 Active Start: 05-08-2024 End: 03-05-2025 insulin glargine-lixisenatid e (Soliqua 100/33) 100 unit-33 mcg/mL insulin pen Indications: type 2 diabetes mellitus Inject 30 Units under the skin once daily. 03/05/2025 Active insulin lispro 100 unt/ml in jectable solution (5 sources) Insulin Analog Start: 07-26-2025 Start: 07-14-2025 End: 07-20-2025 Start: 03-05-2025 0-10 Units, hogue bcutaneous, 3 times daily before meals, First dose on Thelma 03/05/25 at 0700, Do not hold when patient is not eating, continue order as scheduled for hyperglycemia management. Insulin Lispro Corrective Scale #2 Hypoglycemia protocol Call LIP unit(s) if Blood Glucose is between 0 - 70 mg/dL 0 unit(s) if Blood glucose is between 71-150 2 unit(s) if Blood glucose is between 151-200 4 unit(s) if Blood glucose is between 201-250 6 unit(s) if Bloodglucose is between 251-300 8 unit(s) if Blood glucose is between 301-350 10 unit(s) if Blood glucose is between 351-400 If blood glucose is greater than 400 mg/dL, give max insulin per sliding scale AND then contact provider. Start: 10-19-2024 0-20 Units, hogue bcutaneous, 3 times daily before meals and nightly, First dose on 10/19/24 at 0700, Do not hold when patient is not eating, continue order as scheduled for hyperglycemia management. Insulin Lispro Corrective Scale #4 Hypoglycemia protocol Call LIP unit(s) if Blood Glucose is between 0 - 70 mg/dL 0 unit(s) if Blood glucose is between 71-150 4 unit(s) if Blood glucose is between 151-200 8 unit(s) if Blood glucose is between 201-250 12 unit(s) if Blood glucose is between 251-300 16 unit(s) if Blood glucose is between 301-350 20 unit(s) if Blood glucose is between 351-400 Notify provider unit(s) if Blood Glucose is greater than 400 mg/dL loratadine 10 mg oral tablet (7 sources) take 1 tablet by mouth once daily loratadine (Claritin) 10 mg tablet Take 1 tablet (10 mg) by mouth once daily. Active melatonin 3 mg oral tablet (4 sources) Start: 07-26-2025 Start: 07-14-2025 End: 07-23-2025 Start: 03-04-2025 Meperidine (1 source) Opioid Agonist Start: 03-30-2025 12.5 mg, intravenous, Every 10 min PRN, shivering, Starting on Sun03/30/25 at 1341, Recovery (only) 24 hr metFORMIN hydrochloride 500 mg extended release oral tablet (20 sources) Biguanide Start: 04-17-2023 End: 05-02-2023 take 2 tablets by mouth once daily metFORMIN XR (Glucophage-XR) 500 mg 24 hr tablet Indications: Type 2 diabetes mellitus with diabetic polyneuropathy, without long-term current use of insulin ([facility]) Take 2 tablets (1,000 mg) by mouth once daily. 180 tablet 3 04/17/2023 05/02/2023 Discontinued (Therapy completed) Start: 06-07-2022 take 1 tablet by ernst th once daily metFORMIN ER (GLUCOPHAGE XR) 500 mg 24 hr tablet Take 1,000 mg by mouth once daily. 06/07/2022 Active Start: 04-05-2020 take 2 tablets by mo [facility] once daily metFORMIN HCl ER 500 MG Oral Tablet Extended Release 24 Hour TAKE 2 TABLET Daily Quantity: 180 Refills: 3 Ordered: 06-Apr-2022 Daniel Almanzar MD Start : 05-Apr-2020 Active Start: 04-05-2020 take 2 tablets by [facility] once daily metFORMIN XR (Glucophage-XR) 500 mg 24 hr tablet Take 2 tablets (1,000 mg) by mouth once daily. 0 04/05/2020 Active take 2 tablets by mo [facility] once daily metFORMIN 500 mg oral tablet ; 2 tab(s) orally once a day Quantity: 0 Refills: 0 Ordered: 30-Oct-2022 Kristan Costa Generic Substitution Allowed Comment on above: Take 1,000 mg by ernst once daily. 2 ml metoclopramide 5 mg/ml injection (1 source) Dopamine-2 Receptor Antagonist Start: 03-30-2025 10 mg, intravenous, Once as needed, nausea/vomiting, second line, Starting on Sun03/30/25 at 1341, For 1 dose, Recovery (only) OLANZapine 2.5 mg oral tablet (8 sources) Atypical Antipsychotic Start: 07-26-2025 Start: 07-26-2025 Start: 07-23-2025 take 2.5 mg by mouth every eig ht hours as needed Start: 07-21-2025 Start: 07-16-2025 End: 07-21-2025 Start: 07-14-2025 End: 07-21-2025 inject 2.5 mg by intramuscular injection every twenty-four hours as needed omeprazole 20 mg delayed release oral tablet (3 sources) Proton Pump Inhibitor Start: 05-08-2024 End: 05-08-2025 take 1 tablet by mouth once daily before mealtime omeprazole OTC (PriLOSEC OTC) 20 mg EC tablet Indications: Chronic GERD Take 1 tablet (20 mg) by mouth once daily in the morning. Take before meals. Do not crush, chew, or split. 05/08/2024 05/08/2025 Active 2 ml ondansetron 2 mg/ml injection (2 sources) Serotonin-3 Receptor Antagonist Start: 03-30-2025 4 mg, intravenous, Once as needed, nausea/vomiting, first line, Starting on Sun03/30/25 at 1341, For 1 dose, Recovery (only), When administering via IV Push, administer over 3-5 minutes. Start: 03-04-2025 take 4 mg intravenously every six hours as needed ondansetron ODT (Zofran-ODT) disintegrating tablet 4 mg (1 source) Start: 10-19-2024 take 1 tablet by mouth every eight hours as needed ondansetron ODT (Zofran-ODT) disintegrating tablet 4 mg oxyCODONE hydrochloride 5 mg oral tablet (2 sources) Opioid Agonist Start: 03-30-2025 End: 04-02-2025 take 1 tablet by mouth every six hours for pain oxyCODONE (Roxicodone) 5 mg immediate release tablet Indications: pain Take 1 tablet (5 mg) by mouth every 6 hours if needed for severe pain (7 - 10) for up to 3 days. 12 tablet 03/30/2025 04/02/2025 Active Start: 03-30-2025 take 1 tablet by ernst th every four hours as needed 5 mg, oral, Every 4 hours PRN, pain mild (1-3), first line, Starting on Sun03/30/25 at 1341, Recovery (only), When able to take oral medications., If ordered PRN for pain, nurse is permitted to administer this medication for higher pain scores based on patient preference? Yes oxygen (O2) therapy (2 sources) Start: 03-30-2025 inhalation, Co ntinuous - 02/gases, First dose on Sun03/30/25 at 1400, Recovery (only), Device: Nasal Cannula, Rate in liters per minute: 3 LPM, Keep O2 Sat Above: 92% Start: 10-18-2024 inhalation, Co ntinuous PRN - O2/gases, other, Starting on 10/18/24 at 1958, Device: Nasal Cannula, Rate in liters per minute: 2 LPM, Keep O2 Sat Above: 90% pantoprazole 40 mg delayed release oral tablet (1 source) Proton Pump Inhibitor Start: 10-19-2024 take 40 mg by mouth once daily before breakfast 40 mg, oral, Daily before breakfast, First dose on 10/19/24 at 0700, Do not crush, chew, or split. perflutren protein A microsphere (Optison) injection 0.5 mL (1 source) Start: 10-20-2024 0.5 mL, intravenous, Once in imaging, Starting on 10/20/24 at 0430, For 1 dose, CV Medications phenol 14 mg/ml mucosal spray (1 source) Start: 07-13-2025 spironolactone 25 mg oral tablet (6 sources) Aldosterone Antagonist Start: 05-02-2023 End: 05-01-2024 take 0.5 tablet by mouth once daily spironolactone (Aldactone) 25 mg tablet Indications: Primary hypertension Take 0.5 tablets (12.5 mg) by mouth once daily. 15 tablet 11 05/02/2023 05/16/2023 Discontinued (Therapy completed) Start: 04-02-2023 End: 04-01-2024 take 1 tablet by mouth once daily spironolactone (ALDACTONE) 25 mg tablet Take 25 mg by mouth once daily. 0 04/02/2023 Active Comment on above: Take 25 mg by mouth once daily. sulfamethoxazole 800 mg / trimethoprim 160 mg oral tablet (5 sources) Dihydrofolate Reductase Inhibitor Antibacterial, Sulfonamide Antimicrobial Start: 03-30-20 End: 04-02-20 take 1 tablet by mouth twice daily sulfamethoxazole-t rimethoprim (Bactrim DS) 800-160 mg tablet Indications: prevention of bacterial urinary tract infection Take 1 tablet by mouth 2 times a day for 3 days. 6 tablet 03/30/2025 04/02/2025 Active Start: 12-03-2024 End: 12-11-2024 take 1 tablet by mouth twice daily sulfamethoxazole-trimethoprim (Bactrim D S) 800-160 mg tablet Indications: prevention of bacterial urinary tract infection Take 1 tablet by mouth 2 times a day for 8 days. Start 5d before surgery and continue until catheter is removed 16 tablet 12/03/2024 12/11/2024 Active Start: 10-08-2024 End: 10-29-2024 take 1 tablet by mouth once daily sulfamethoxazole-trimethoprim (Bactrim D S) 800-160 mg tablet Indications: Dysuria Take 1 tablet by mouth once daily for 21 days. 21 tablet 10/08/2024 10/29/2024 Suspended sulfur hexafluoride microsphr (Lumason) injection 24.28 mg (1 source) Start: 10-20-2024 24.28 mg (2 mL ), intravenous, Once in imaging, Starting on Sun10/20/24 at 0430, For 1 dose, CV Medications, Follow administration with 5 mL NaCL 0.9% injection. tamsulosin hydrochloride 0.4 mg oral capsule (20 sources) alpha-Adrenergic Jami Start: 07-26-2025 Start: 09-29-2024 End: 09-29-2025 traMADol hydrochloride 50 mg oral tablet (20 sources) Opioid Agonist Start: 07-13-2025 take 50 mg by mouth every six hours as needed Start: 05-30-2022 take 1 tablet by ernst every twenty-four hours traMADol HCl ER 100 MG Oral Tablet Extended Release 24 Hour Quantity: 30 Refills: 0 Ordered: 30-May-2022 DO Start : 30-May-2022 Active Start: 10-06-2019 take 1 tablet by ernst th every four to six hours as needed traMADol HCl - 50 MG Oral Tablet TAKE 1 TABLET EVERY 4 TO 6 HOURS NEEDED. Quantity: 0 Refills: 0 Ordered: 06-Oct-2019 DO Start : 06-Oct-2019 Active traZODone hydrochloride 50 m g oral tablet (2 sources) Serotonin Reuptake Inhibitor Start: 07-26-2025 Start: 07-23-2025 (1 source) Start: 05-21-2025 (1 source) Start: 06-25-2025 (4 sources) Start: 07-14-2025 [Order 1 Start ] Name: pantoprazole (ProtoNix) EC tablet 40 mg Signed Summary: 40 mg, oral, Daily before breakfast, First dose on Sun07/14/25 at 0700, Phase II/On Unit, Do not crush, chew, or split. [Order 1 End] [Order 2 Start] Name: pantoprazole (Protonix) injection 40 mg Signed Summary: 40 mg, intravenous, Administer over 2 Minutes, Daily before breakfast, First dose on Sun07/14/25 at 0700, Phase II/On Unit, Give if unable to take by mouth. Reconstitute each 40 mg vial with 10 mL NS to make 4 mg/mL solution. [Order 2 End] Start: 07-13-2025 take 4 mg by mouth e very eight hours as needed [Order 1 Start] Name: ondansetron (Zofran) tablet 4 mg Signed Summary: 4 mg, oral, Every 8 hours PRN, nausea/vomiting, second line, Starting on Sun07/13/25 at 2006, Phase II/On Unit, 2nd Line. Use oral route first, if possible. If inadequate response within 60 minutes, proceed to next-line agent for same PRN reason or contact provider if no further options ordered. [Order 1 End] [Order 2 Start] Name: ondansetron (Zofran) injection 4 mg Signed Summary: 4 mg, intravenous, Every 8 hours PRN, nausea/vomiting, second line, Starting on Sun07/13/25 at 2006, Phase II/On Unit, 2nd Line. Give IV if patient is unable to take orally. If inadequate response within 60 minutes, proceed to next-line agent for same PRN reason or contact provider if no further options ordered. When administering via IV Push, administer over 3-5 minutes. [Order 2 End] Start: 07-13-2025 take 10 mg by mouth every six hours as needed [Order 1 Start] Name: prochlorperazine (Compazine) tablet 10 mg Signed Summary: 10 mg, oral, Every 6 hours PRN, nausea/vomiting, first line, Starting on Sun07/13/25 at 2006, Phase II/On Unit, 1st Line. If inadequate response within 60 minutes, proceed to next-line agent or contact provider if no further options ordered. [Order 1 End] [Order 2 Start] Name: prochlorperazine (Compazine) injection 10 mg Signed Summary: 10 mg, intravenous, Every 6 hours PRN, nausea/vomiting, first line, Starting on Sun07/13/25 at 2006, Phase II/On Unit, Give IV if patient is unable to take orally. [Order 2 End] [Order 3 Start] Name: prochlorperazine (Compazine) suppository 25 mg Signed Summary: 25 mg, rectal, Every 12 hours PRN, nausea/vomiting, first line, Starting on Sun07/13/25 at 2006, Phase II/On Unit, 1st Line. Give TX if patient is unable to take orally or receive by injection. If inadequate response within 60 minutes, proceed to next-line agent or contact provider if no further options ordered. [Order 3 End] Start: 07-13-2025 take 650 mg by mouth every six hours as needed [Order 1 Start] Name: acetaminophen (Tylenol) tablet 650 mg Signed Summary: 650 mg, oral, Every 6 hours PRN, pain mild (1-3), first line, Starting on Sun07/13/25 at 2006, Phase II/On Unit, If inadequate response within 60 minutes, proceed to next-line agent for same PRN reason or contact provider if no further options ordered., If ordered PRN for pain, nurse is permitted to administer this medication for higher pain scores based on patient preference? Yes [Order 1 End] [Order 2 Start] Name: acetaminophen (Tylenol) oral liquid 650 mg Signed Summary: 650 mg, oral, Every 6 hours PRN, pain mild (1-3), first line, Starting on Sun07/13/25 at 2006, Phase II/On Unit, Give oral liquid if patient prefers or per feeding tube if present. If inadequate response within 60 minutes, proceed to next-line agent for same PRN reason or contact provider if no further options ordered. [Order 2 End] [Order 3 Start] Name: acetaminophen (Tylenol) suppository 650 mg Signed Summary: 650 mg, rectal, Every 6 hours PRN, pain mild (1-3), first line, Starting on Sun07/13/25 at 2006, Phase II/On Unit, Give rectally if unable to administer by mouth or feeding tube. If inadequate response within 60 minutes, proceed to next-line agent for same PRN reason or contact provider if no further options ordered., If ordered PRN for pain, nurse is permitted to administer this medication for higher pain scores based on patient preference? Yes [Order 3 End] (1 source) Start: 07-13-2025 Completed/Discontinued Medications Medication Drug Class(es) Dates Sig (Normalized) Sig (Original) amLODIPine 5 mg oral tablet (20 sources) Dihydropyridine Calcium Channel Jami Start: 07-18-2025 End: 07-21-2025 Start: 07-14-2025 End: 07-18-2025 Start: 03-06-2025 End: 03-11-2026 Start: 06-25-2020 End: 05-08-2022 take 1 tablet by mouth once daily amLODIPine Besylate 5 MG Oral Tablet TAKE 1 TABLET DAILY. Quantity: 90 Refills: 3 Ordered: 06-Apr-2021 Daniel Almanzar MD Start : 25-Jun-2020 End : 08-May-2022 Complete bisacodyl 10 mg rectal suppo sitory (2 sources) Stimulant Laxative Start: 07-24-2025 End: 07-24-2025 Start: 07-17-2025 carvedilol 6.25 mg oral tablet (20 sources) alpha-Adrenergic Jami, beta-Adrenergic Jami Start: 10-19-2024 End: 11-17-2025 take 1 tablet by mouth twice daily carvedilol (Coreg) 6.25 mg tablet Indications: hypertension , myocardial reinfarction prevention Take 1 tablet (6.25 mg) by mouth 2 times daily (morning and late afternoon). 60 tablet 11 11/17/2024 03/05/2025 Discontinued (Stop Taking at Discharge) Start: 07-02-2023 End: 06-02-2025 take 1 tablet by mouth twice daily carvedilol (Coreg) 12.5 mg tablet Indications: Primary hypertension Take 1 tablet (12.5 mg) by mouth 2 times daily (morning and late afternoon). 180 tablet 3 06/02/2024 06/02/2025 Suspended Start: 05-02-2023 End: 05-01-2024 take 1 tablet by mouth twice daily at mealtime carvedilol (Coreg) 6.25 mg tablet Indications: Primary hypertension Take 1 tablet (6.25 mg) by mouth 2 times a day with meals. 60 tablet 11 05/02/2023 07/02/2023 Discontinued (Reorder) cephalexin 500 mg oral capsule (2 sources) Cephalosporin Antibacterial Start: 03-17-2025 End: 03-30-2025 take 1 capsule by mouth twice daily cephalexin (Keflex) 500 mg capsule Indications: E. coli urinary tract infection Take 1 capsule (500 mg) by mouth 2 times a day for 7 days. 14 capsule 03/17/2025 03/30/2025 Discontinued (Stop Taking at Discharge) chlorpheniramine maleate 4 mg oral tablet (5 sources) Histamine-1 Receptor Antagonist End: 10-19-2024 take 2 tablets by mouth once daily in the morning chlorpheniramine (Chlor-Trimeton) 4 mg tablet Take 2 tablets (8 mg) by mouth once daily in the morning. 10/19/2024 Discontinued (Therapy completed) cholecalciferol 0.025 mg oral capsule (20 sources) Vitamin D End: 04-21-2025 take 1 capsule by mouth once daily cholecalciferol (Vitamin D-3) 25 MCG (1000 UT) capsule Indications: vitamin D deficiency Take 1 capsule (25 mcg) by mouth once daily. 04/21/2025 Discontinued (Med List Cleanup) clopidogrel 75 mg oral tablet (20 sources) [id number] Platelet Inhibitor Start: 01-19-2025 End: 01-26-2026 Start: 04-26-2023 Clopidogrel Bi sulfate 75 MG Oral Tablet Quantity: 0 Refills: 0 Ordered: 26-Apr-2023 DO Start : 26-Apr-2023 Active Start: 03-28-2023 End: 04-16-2024 take 1 tablet by mouth once daily clopidogrel (PLAVIX) 75 mg tablet Take 75 mg by mouth once daily. 0 03/28/2023 Active Comment on above: Do not take aspirin or aspirin containing products without knowledge and consent of your physician. Take 75 mg by mouth once daily. diazePAM 5 mg/ml injectable solution (1 source) Benzodiazepine Start: End: take 2 mg intravenously every eight hours as needed docusate sodium 100 mg oral capsule (1 source) Start: End: fenofibrate 145 mg oral tablet (9 sources) Peroxisome Proliferator Receptor alpha Agonist Start: Fenofibrate 145 MG Oral Tablet Quantity: 0 Refills: 0 Ordered: 26-Apr-2023 DO Start : 26-Apr-2023 Active Start: 03-28-2023 End: 05-02-2023 take 1 tablet by mouth once daily fenofibrate nanocrystallized (TRICOR) 145 mg tablet Take 145 mg by mouth once daily. 0 03/28/2023 Active Comment on above: Take 145 mg by mouth once daily. 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 Do not crush, chew, or split. 30 tablet 11 10/01/2024 03/30/2025 Discontinued (Stop Taking at Discharge) furosemide 40 mg oral tablet (12 sources) Loop Diuretic Start: 05-08-20 take 1 tablet by mouth once daily Furosemide 40 MG Oral Tablet TAKE 1 TABLET DAILY. Quantity: 30 Refills: 11 Ordered: 08-May-2022 Daniel Almanzar MD Start : 08-May-2022 Active 100 ml gentamicin 1.2 mg/ml injection (1 source) Start: 03-30-20 End: 03-30-20 120 mg, intravenous, Administer over 30 Minutes, Once, On 03/30/25 at 1030, For 1 dose, Preprocedure, Administer within 60 minutes and complete at least 15 minutes prior to incision. premix bag, Dosing of this medication varies based on severity of illness. Does this patient have sepsis or concern for sepsis (probable or documented infection plus systemic manifestations of infection)? No, Suspected Indication (Select all that apply): Surgical Prophylaxis, Indications: Surgical Prophylaxis Haloperidol (2 sources) Typical Antipsychotic Start: 07-15-20 End: 07-15-20 Start: 07-15-2025 End: 07-15-2025 hydrALAZINE hydrochloride 25 mg oral tablet (2 sources) Arteriolar Vasodilator Start: 07-23-2025 End: 07-26-2025 Start: 03-05-2025 take 10 mg intraveno usly every six hours as needed 10 mg, intravenous, Every 6 hours PRN, for SBP>160, Starting on Thelma 03/05/25 at 0804 lansoprazole 15 mg delayed release oral capsule (20 sources) Proton Pump Inhibitor Start: 10-06-2019 take 1 capsule by mouth once daily Lansoprazole 15 MG Oral Capsule Delayed Release TAKE 1 CAPSULE Daily Quantity: 30 Refills: 0 Ordered: 06-Oct-2019 Daniel Almanzar MD Start : 06-Oct-2019 Active End: 04-21-2025 take 1 capsule by mouth once daily lansoprazole (PREVACID ORAL) Indications: GERD Take 1 capsule by mouth once daily. 04/21/2025 Discontinued (Med List Cleanup) take 1 capsule by mo [facility] once daily lansoprazole (PREVACID ORAL) Indications: GERD Take 1 capsule by mouth once daily. [facility] lansoprazole (PREVACID ORAL) Take 1 tablet by mouth once daily. Active lansoprazole (TX EVACID) 30 mg capsule lansoprazole 30 mg capsule,delayed release 0 Active Comment on above: lansoprazole 30 mg c apsule,delayed release lidocaine hydrochloride 0.02 mg/mg topical gel (6 sources) Antiarrhythmic, Amide Local Anesthetic Start: 03-17-2025 End: 03-17-2025 1 Application, urethral, Once, On 03/17/25 at 1250, For 1 dose, Apply to urethra prior to de oliveira insertion. Start: 03-05-2025 End: 03-05-2025 1 Application, urethral, Onc e, On Thelma 03/05/25 at 0815, For 1 dose, Apply to penis for De Oliveira catheter insertion. Start: 02-28-2025 End: 02-28-2025 Starting on 02/28/25 at 02 01, For 1 dose, Created by cabinet override Start: 02-28-2025 End: 02-28-2025 1 Application, urethral, Onc e, On 02/28/25 at 0155, For 1 dose, Apply to urethra. Start: 10-19-2024 End: 10-19-2024 1 Application, urethral, Onc e, On 10/19/24 at 1900, For 1 dose, Prior to de oliveira placement Start: 10-19-2024 End: 10-19-2024 1 Application, urethral, Onc e, On 10/19/24 at 1145, For 1 dose, Prior to straight cath losartan potassium 50 mg oral tablet (5 sources) Angiotensin 2 Receptor Jami Start: 03-05-2025 End: 03-05-2025 take 50 mg by mouth once daily 50 mg, oral, Daily, First dose on Thelma 03/05/25 at 0900 Start: 05-02-2023 End: 05-01-2024 take 1 tablet by mouth once daily losartan (Cozaar) 25 mg tablet Indications: Primary hypertension Take 1 tablet (25 mg) by mouth once daily. 30 tablet 11 05/02/2023 05/16/2023 Discontinued (Therapy completed) Start: 04-02-2023 End: 04-01-2024 take 1 tablet by mouth once daily losartan (Cozaar) 100 mg tablet Indications: Primary hypertension , TIA (transient ischemic attack) Take 1 tablet (100 mg) by mouth once daily. 30 tablet 11 04/02/2023 05/02/2023 Discontinued (Reorder) magnesium citrate 58.2 mg/ml oral solution (1 source) Start: 07-23-2025 End: 07-23-2025 magnesium hydroxide 80 mg/ml oral suspension (3 sources) Start: 07-23-2025 End: 07-23-2025 Start: 03-04-2025 take 30 mL by mouth every twen ty-four hours as needed Start: 10-19-2024 take 30 mL by mouth every twen ty-four hours as needed methocarbamol 500 mg oral tablet (3 sources) Muscle Relaxant Start: 12-04-2022 End: 01-03-2023 take 1 tablet by mouth every twelve hours as needed methocarbamol (ROBAXIN) 500 mg tablet Take 1 tablet by mouth twice daily as needed. 60 tablet 0 12/04/2022 01/03/2023 Comment on above: Take 1 tablet by ernst th twice daily as needed. 24 hr NIFEdipine 30 mg extended release oral tablet (4 sources) Dihydropyridine Calcium Channel Jami Start: 09-29-2024 End: 09-29-2025 take 1 tablet by mouth once daily before mealtime NIFEdipine ER (Adalat CC) 30 mg 24 hr tablet Indications: Primary hypertension Take 1 tablet (30 mg) by mouth once daily in the morning. Take before meals. Do not crush, chew, or split. 90 tablet 3 09/29/2024 09/29/2025 Suspended perflutren lipid microspheres (Definity) injection 0.5-10 mL of dilution (1 source) Start: 10-20-2024 End: 10-20-2024 0.5-10 mL of dilution, intravenous, Once in imaging, Starting on Sun10/20/24 at 0430, For 1 dose, CV Medications, Contrast - for use by imaging provider only. Prior to administration, Definity product must be activated. First, bring vial to room temperature. Then, shake vial for 45 seconds. Do not use if the 45 second activation cycle has not been completed. Following activation, the product will appear as a milky white suspension and may be used immediately. If not used within 5 minutes of activation, re-suspend by inverting and shaking the vial for 10 seconds. Discard unused product. Administration: Dilute 1.3 mL of activated DEFINITY with 8.7 mL of normal saline in a 10 mL syringe. Inject 0.5 mL of diluted DEFINITY when notified the images/film are unclear to enhance view of Left Ventricular borders. Repeat 0.5 mL of DEFINITY until clear images are obtained, not to exceed 10 mLs. Once images are obtained or limit of medication is reached, flush line with 10 mL of Normal Saline. phenazopyridine hydrochloride 200 mg oral tablet (19 sources) Start: 03-30-2025 End: 04-21-2025 take 1 tablet by mouth three times daily as needed for muscle spasms phenazopyridine (Pyridium) 200 mg tablet Indications: dysuria Take 1 tablet (200 mg) by mouth 3 times a day as needed for bladder spasms. 10 tablet 03/30/2025 04/21/2025 Discontinued (Med List Cleanup) Start: 10-28-2024 End: 03-11-2025 take 1 tablet by mouth three times daily as needed for muscle spasms phenazopyridine (Pyridium) 200 mg tablet Indications: bladder tumor Take 1 tablet (200 mg) by mouth 3 times a day as needed for bladder spasms. 30 tablet 10/28/2024 03/11/2025 Discontinued (Therapy completed) Start: 10-08-2024 End: 10-18-2024 take 1 tablet by mouth three times daily phenazopyridine (Pyridium) 200 mg tablet Indications: Dysuria Take 1 tablet (200 mg) by mouth 3 times a day for 10 days. 10 tablet 10/08/2024 10/18/2024 polyethylene glycol 3350 170 00 mg powder for oral solution (4 sources) Osmotic Laxative Start: 07-23-2025 End: 07-23-2025 Start: 07-22-2025 End: 07-22-2025 Start: 07-17-2025 End: 07-17-2025 Start: 03-30-2025 End: 04-09-2025 polyethylene glycol (Glycola x, Miralax) 17 gram packet Indications: constipation Take 17 g by mouth once daily for 10 days. 10 packet 03/30/2025 04/09/2025 Active potassium chloride 20 meq po wder for oral solution (2 sources) Start: 07-18-2025 End: 07-18-2025 Start: 05-29-2024 End: 05-29-2024 20 mEq, oral, Once, On Thelma at 1340, For 1 dose, Best given with food and plenty of water to minimize gastric irritation. Do not crush or chew. pregabalin 100 mg oral capsule (4 sources) Start: 06-20-2022 take 1 capsule by mo uth at bedtime Pregabalin 100 MG Oral Capsule take 1 capsule by mouth at bedtime Quantity: 30 Refills: 0 Ordered: 20-Jun-2022 DO Start : 20-Jun-2022 Active 1000 ml sodium chloride 9 mg/ml injection (2 sources) Start: 01-19-2025 End: 01-19-2025 take 102 mL intravenously every hour 102 mL/hr, intravenous, Continuous, Starting on 01/19/25 at 0815, For 1 hour, Preprocedure Start: 10-18-2024 End: 10-18-2024 500 mL, intravenous, at 500 mL/hr, Administer over 1 Hours, Once, On 10/18/24 at 1530, For 1 dose 1 ml triamcinolone acetonide 40 mg/ml injection (20 sources) Corticosteroid Start: 01-22-2024 End: 01-22-2024 triamcinolone acetonide (Kenalog-40) injection 2.5 mg Start: 01-22-2024 End: 01-22-2024 2.5 mg, intra-articular, Onc e PRN Procedure, Starting on Sun01/22/24 at 1725, For 1 dose Start: 08-28-2023 End: 08-28-2023 triamcinolone acetonide (Jack alog-40) injection 40 mg Start: 06-21-2023 Triamcinolone Acetonide 40 MG/ML Injection Suspension INJECT 1 ML Intra-articular Quantity: 0 Refills: 0 Ordered: 21-Jun-2023 Kapil Orozco MD Start : 21-Jun-2023 Complete Start: 03-22-2023 Triamcinolone Acetonide 40 MG/ML Injection Suspension INJECT 1 ML Intra-articular Quantity: 0 Refills: 0 Ordered: 22-Mar-2023 Kapil Orozco MD Start : 22-Mar-2023 Complete Start: 05-08-2022 Triamcinolone Acetonide 0.5 % External Ointment APPLY SPARINGLY TO AFFECTED AREA(S) TWICE DAILY Quantity: 2 Refills: 1 Ordered: 08-May-2022 Daniel Almanzar MD Start : 08-May-2022 Active Start: 04-05-2020 triamcinolone (Kenalog) 0.1 % cream Apply topically 2 times a day. Apply to affected areas 2-3 times daily 0 04/05/2020 Active Start: 04-05-2020 Triamcinolone Acetonide 0.1 % External Cream APPLY 2-3 TIMES DAILY TO AFFECTED AREA(S). Quantity: 1 Refills: 1 Ordered: 06-Apr-2022 Daniel Almanzar MD Start : 05-Apr-2020 Active Start: 04-05-2020 Triamcinolone Acetonide 0.1 % External Cream APPLY 2-3 TIMES DAILY TO AFFECTED AREA(S). Quantity: 1 Refills: 1 Ordered: 19-Oct-2021 Daniel Almanzar MD Start : 05-Apr-2020 Active Start: 04-05-2020 Triamcinolone Acetonide 0.1 % External Cream APPLY 2-3 TIMES DAILY TO AFFECTED AREA(S). 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] Onset: 5 07-26-2025 Chronic Comment on above: Occlusion and stenos is of carotid artery with cerebral infarction; Cardiac dysrhythmias (20 sources) Bradycardia; Translations: [Bradycardia, unspecified] Onset: 5 10-20-2024 Episodic Chronic kidney disease (20 sources) Chronic kidney disease stage 3B ; Translations: [Chronic kidney disease, Stage III (moderate)] Onset: 3 Resolved: 4 05-16-2023 Chronic Conduction disorders (2 sources) Atrioventricular block, first degree; Translations: [Left bundle-branch block, unspecified] Onset: 5 Chronic Coronary atherosclerosis and other heart disease (12 sources) Coronary arteriosclerosis; Translations: [Atherosclerotic heart disease of [place] coronary artery without angina pectoris] Onset: 5 01-19-2025 Chronic Coronary atherosclerosis and other heart disease (5 sources) Presence of coronary angioplasty implant and graft; Translations: [Coronary angioplasty status] Onset: 5 Episodic Deficiency and other anemia (2 sources) Anemia; Translations: [Anemia, unspecified] 10-20-2024 Episodic Deficiency and other anemia (3 sources) Anemia, unspecified; Translations: [Anemia, unspecified] Onset: 5 Episodic Delirium, dementia, and amnestic and other cognitive disorders (6 sources) Delirium; Translations: [Delirium due to known physiological condition] Onset: 5 07-26-2025 Chronic Diabetes mellitus with complications (20 sources) Diabetic peripheral neuropathy; Translations: [Type 2 diabetes mellitus with diabetic polyneuropathy] Onset: 2 Resolved: 5 Chronic Diabetes mellitus without complication (20 sources) Type 2 diabetes mellitus without complication; Translations: [Diabetes mellitus without mention of complication, type II or unspecified type, not stated as uncontrolled] Onset: 2 Chronic Comment on above: Controlled type 2 di abetes mellitus without complication, without long-term current use of insulin; Disorders of lipid metabolism (20 sources) Hyperlipidemia; Translations: [Other and unspecified hyperlipidemia] Onset: 3 02-22-2023 Chronic Esophageal disorders (20 sources) Gastroesophageal reflux disease; Translations: [Esophageal reflux] Onset: 3 02-21-2023 Chronic Essential hypertension (20 sources) Hypertensive disorder; Translations: [Unspecified essential hypertension] Onset: 3 02-22-2023 Chronic Genitourinary symptoms and ill-defined conditions (20 sources) Nocturia; Translations: [Nocturia] Onset: 3 Resolved: 3 02-22-2023 Episodic Gout and other crystal arthropathies (20 sources) Gout; Translations: [Gout, unspecified] Onset: 3 02-21-2023 Chronic Headache; including migraine (2 sources) Headache; including migraine; Translations: [Headache, unspecified] Onset: 3 Heart valve disorders (20 sources) Aortic stenosis, non-rheumatic ; Translations: [Nonrheumatic aortic (valve) stenosis] Onset: 5 10-31-2024 Chronic Hyperplasia of prostate (20 sources) Benign prostatic hyperplasia; Translations: [Hypertrophy (benign) of prostate without urinary obstruction and other lower urinary tract symptom (LUTS)] Onset: 3 02-21-2023 Chronic Malaise and fatigue (5 sources) Asthenia; Translations: [Weakness] Onset: 5 10-20-2024 Episodic Mood disorders (1 source) Major depressive disorder, single episode, unspecified; Translations: [Major depressive disorder, single episode, unspecified] Onset: 5 Chronic Osteoarthritis (20 sources) Primary osteoarthritis, right shoulder; Translations: [Primary osteoarthritis, left shoulder] Onset: 3 08-28-2023 Chronic Other aftercare (1 source) joint terminal attack controller (current) use of aspirin; Translations: [shelter (current) use of aspirin] Onset: 3 Episodic Other aftercare (1 source) shelter (current) use of antithrombotics/antipl atelets; Translations: [shelter (current) use of antithrombotics/antipl atelets] Onset: 3 Episodic Other aftercare (1 source) joint terminal attack controller (current) use of oral hypoglycemic drugs; Translations: [joint terminal attack controller (current) use of oral hypoglycemic drugs] Onset: 3 Episodic Other aftercare (1 source) Other termite treater (current) drug therapy; Translations: [Other termite treater (current) drug therapy] Onset: 3 Episodic Other aftercare (5 sources) shelter (current) use of insulin; Translations: [joint terminal attack controller (current) use of insulin (Multi)] Onset: 5 Episodic Other circulatory disease (2 sources) Disorder of carotid artery; Translations: [Unspecified disorders of arteries and arterioles] Chronic Comment on above: Carotid artery disea se; Other circulatory disease (2 sources) Low blood pressure; Translations: [Hypotension, unspecified] 10-20-2024 Episodic Other circulatory disease (1 source) Personal history of transient ischemic attack (TIA), and cerebral infarction without residual deficits; Translations: [Personal history of transient ischemic attack (TIA), and cerebral infarction without residual deficits] Onset: 5 Episodic Other circulatory disease (1 source) Orthostatic hypotension; Translations: [Orthostatic hypotension] Onset: 5 Episodic Other diseases of bladder and urethra (20 sources) Lesion of bladder; Translations: [Bladder disorder, unspecified] Onset: 5 09-26-2024 Chronic Other diseases of bladder and urethra (4 sources) Bladder disorder, unspecified; Translations: [Bladder disorder, unspecified] Onset: 5 Chronic Other diseases of kidney and ureters (6 sources) Other obstructive and reflux uropathy; Translations: [Other obstructive and reflux uropathy] Onset: 5 Episodic Other endocrine disorders (1 source) Hypoglycemia; Translations: [Hypoglycemia, unspecified] 05-29-2024 Chronic Other endocrine disorders (2 sources) Hypoglycemia, unspecified; Translations: [Hypoglycemia, unspecified] Onset: 4 Chronic Other gastrointestinal disorders (3 sources) Constipation; Translations: [Constipation, unspecified] Onset: 5 Resolved: 5 07-26-2025 Episodic Other gastrointestinal disorders (2 sources) Constipation, unspecified; Translations: [Constipation, unspecified] Onset: 5 Episodic Other lower respiratory disease (2 sources) Hypoxia; Translations: [Hypoxemia] 10-20-2024 Episodic Other male genital disorders (20 sources) Male erectile dysfunction, unspecified; Translations: [Impotence of organic origin] Onset: 5 10-01-2024 Chronic Other nervous system disorders (2 sources) Other chronic pain; Translations: [Other chronic pain] Onset: 3 Chronic Other nervous system disorders (1 source) Aphasia; Translations: [Aphasia] Onset: 5 Chronic Other nervous system disorders (1 source) Polyneuropathy, unspecified; Translations: [Polyneuropathy, unspecified] Onset: 5 Chronic Other non-traumatic joint disorders (20 sources) Pain in wrist; Translations: [Pain in joint, forearm] Episodic Other non-traumatic joint disorders (1 source) Pain in left shoulder; Translations: [Bilateral shoulder pain, unspecified chronicity] Onset: 3 Episodic Other non-traumatic joint disorders (4 sources) Pain in unspecified shoulder; Translations: [Pain in unspecified shoulder] Onset: 3 Episodic Other non-traumatic joint disorders (1 source) Hip pain; Translations: [Pain in right hip] 07-19-2023 Episodic Other non-traumatic joint disorders (1 source) Bilateral chronic pain of upper limbs; Translations: [Pain in right shoulder] 07-21-2023 Episodic Other nutritional; endocrine; and metabolic disorders (20 sources) Obesity; Translations: [Obesity, unspecified] Onset: 3 02-21-2023 Chronic Other nutritional; endocrine; and metabolic disorders (2 sources) Obesity, unspecified; Translations: [Obesity, unspecified] Onset: 3 Chronic Other skin disorders (20 sources) Dry skin; Translations: [Keratoderma, acquired] Episodic Other skin disorders (3 sources) Cyst of scalp; Translations: [Sebaceous cyst] Episodic Nola-; endo-; and myocarditis; cardiomyopathy (except that caused by tuberculosis or sexually transmitted disease) (2 sources) Cardiomyopathy; Translations: [Cardiomyopathy] Onset: 5 Chronic Peripheral and visceral atherosclerosis (6 sources) Intermittent claudication; Translations: [Peripheral vascular disease, unspecified] Onset: 5 02-02-2025 Chronic Residual codes; unclassified (2 sources) Localized edema; Translations: [Localized edema] Onset: 5 Episodic Residual codes; unclassified (1 source) Insomnia; Translations: [Insomnia, unspecified] 07-26-2025 Episodic Residual codes; unclassified (2 sources) Insomnia, unspecified; Translations: [Insomnia, unspecified] Onset: 5 Episodic Residual codes; unclassified (1 source) Disorientation, unspecified; Translations: [Disorientation, unspecified] Onset: 5 Episodic Residual codes; unclassified (1 source) Presence of other specified devices; Translations: [Presence of other specified devices] Onset: 5 Episodic Spondylosis; intervertebral disc disorders; other back problems (4 sources) Other cervical disc degeneration, unspecified cervical region; Translations: [Degeneration of cervical intervertebral disc] Onset: 3 Chronic Thyroid disorders (1 source) Nontoxic goiter, unspecified; Translations: [Nontoxic goiter, unspecified] Onset: 5 Chronic Transient cerebral ischemia (1 source) Transient cerebral ischemia; Translations: [Transient cerebral ischemic attack, unspecified] 04-02-2023 Chronic Unclassified (2 sources) HEADACHE/BLURRY VISON 03-28-2023 Comment on above: HEADACHE/BLURRY VISO N Unclassified (1 source) 4-6 WEEK FU MEREDITH SHOULDER PAIN 03-22-2023 Comment on above: 4-6 WEEK FU MEREDITH SHOU LDER PAIN Unclassified (1 source) Blurred vision 03-28-2023 Unclassified (1 source) Blurred vision, right eye 03-28-2023 Unclassified (1 source) Patient encounter status 12-08-2024 Unclassified (7 sources) Autogenerated Problem Onset: 5 02-05-2025 Unclassified (2 sources) De Oliveira catheter change Onset: 5 Urinary tract infections (6 sources) Acute cystitis; Translations: [Acute cystitis with hematuria] Onset: 5 02-28-2025 Episodic Past or Other Problems Problem Classification Problem Date Documented Da te Episodic/Chronic Blindness and vision defects (20 sources) Eye / vision finding; Translations: [Unspecified visual disturbance] Onset: 02-21-2023 Resolved: 10-31-2024 02-22-2023 Episodic Cardiac dysrhythmias (20 sources) Atrial fibrillation; Translations: [Unspecified atrial fibrillation] Onset: 10-18-2024 Resolved: 10-31-2024 10-20-2024 Chronic Diabetes mellitus without complication (4 sources) Glycosuria; Translations: [Glycosuria] Onset: 09-26-2024 09-26-2024 Episodic E Codes: Adverse effects of medical drugs (2 sources) Adverse effect of unspecified drugs, medicaments and biological substances, initial encounter; Translations: [Adverse effect of unspecified drugs, medicaments and biological substances, initial encounter] Onset: 10-18-2024 Episodic E Codes: Fall (20 sources) Fall; Translations: [Unspecified fall, initial encounter] Onset: 10-18-2024 Resolved: 10-20-2024 10-18-2024 Episodic Fluid and electrolyte disorders (3 sources) Hypokalemia; Translations: [Hypokalemia] Onset: 05-29-2024 05-29-2024 Episodic Headache; including migraine (20 sources) Headache; Translations: [Headache] Onset: 02-21-2023 Resolved: 02-22-2023 02-22-2023 Episodic Mood disorders (12 sources) Mood disorders Onset: 02-20-2025 02-20-2025 Neoplasms of unspecified nature or uncertain behavior (20 sources) Neoplasm of bladder; 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] Onset: 10-16-2024 10-20-2024 Episodic Other circulatory disease (2 sources) Hypotension, unspecified; Translations: [Hypotension, unspecified] Onset: 10-18-2024 Episodic Other hereditary and degenerative nervous system conditions (20 sources) Idiopathic peripheral autonomic neuropathy; Translations: [Idiopathic peripheral autonomic neuropathy, unspecified] Onset: 02-21-2023 Resolved: 02-22-2023 02-22-2023 Chronic Other injuries and conditions due to external causes (1 source) Multiple lacerations; Translations: [Other injury of unspecified body region, initial encounter] 05-29-2024 Episodic Other injuries and conditions due to external causes (2 sources) Other injury of unspecified body region, initial encounter; Translations: [Other injury of unspecified body region, initial encounter] Onset: 05-29-2024 Episodic Other lower respiratory disease (2 sources) Hypoxemia; Translations: [Hypoxemia] Onset: 10-18-2024 Episodic Other nervous system disorders (20 sources) Polyneuropathy; Translations: [Unspecified hereditary and idiopathic peripheral neuropathy] Onset: 02-21-2023 Resolved: 02-22-2023 02-22-2023 Chronic Other nervous system disorders (20 sources) Sensory neuropathy; Translations: [Polyneuropathy, unspecified] Onset: 06-14-2023 Resolved: 07-02-2023 07-02-2023 Chronic Other non-traumatic joint disorders (20 sources) Pain in elbow; Translations: [Pain in joint, upper arm] Onset: 02-21-2023 Resolved: 02-22-2023 02-22-2023 Episodic Other non-traumatic joint disorders (4 sources) Pain in right shoulder; Translations: [Pain in joint, shoulder region] Onset: 12-04-2022 12-04-2022 Episodic Other non-traumatic joint disorders (20 sources) Shoulder pain; Translations: [Pain in right shoulder] Onset: 06-14-2023 Episodic Other non-traumatic joint disorders (20 sources) Chronic pain of right upper limb; Translations: [Pain in right shoulder] Onset: 02-22-2023 02-22-2023 Episodic Other non-traumatic joint disorders (20 sources) Pain of right wrist; Translations: [Pain in right wrist] Onset: 02-21-2023 Resolved: 02-22-2023 02-22-2023 Episodic Other skin disorders (20 sources) Xeroderma; Translations: [Xerosis cutis] Onset: 02-21-2023 02-21-2023 Episodic Other skin disorders (2 sources) Follicular cyst of the skin and subcutaneous tissue, unspecified; Translations: [Follicular cyst of the skin and subcutaneous tissue, unsp] Onset: 11-01-2022 Episodic Other skin disorders (1 source) Pilar cyst; Translations: [Pilar cyst] Onset: 11-01-2022 Episodic Other skin disorders (1 source) Localized swelling, mass and lump, head; Translations: [Localized swelling, mass and lump, head] Onset: 11-01-2022 Episodic Residual codes; unclassified (20 sources) Hypoxia; Translations: [Idiopathic sleep related non-obstructive alveolar hypoventilation] Onset: 02-21-2023 Resolved: 02-22-2023 02-22-2023 Chronic Residual codes; unclassified (20 sources) Bilateral lower limb edema; Translations: [Edema] Onset: 02-21-2023 Resolved: 02-22-2023 02-22-2023 Episodic Syncope (4 sources) Syncope; Translations: [Syncope and collapse] Onset: 10-18-2024 10-20-2024 Episodic Unclassified (20 sources) Onset: 04-17-2023 Resolved: 07-01-2025 04-17-2023 Unclassified (1 source) Drug-induced sinus bradycardia 10-20-2024 Results Test Name Value Interpretation Reference Range Facility Bedside Glucoseon 08-06-2025 FINGERSTICK GLU 117 mg/dL High 74-106 [facility] Comment on above: Result Comment: BARI GEMENT OF PATIENT CARE PER NURSING PROTOCOL Performed By: #### L 501.080 #### [facility] [address] [place], [address] FINGERSTICK GLU 85 mg/dL Normal 74-106 [facility] Comment on above: Result Comment: BARI GEMENT OF PATIENT CARE PER NURSING PROTOCOL Performed By: #### L [id number] #### [facility] [address] [place], [address] Bedside Glucoseon 08-05-2025 FINGERSTICK GLU 108 mg/dL High 74-106 [facility] Comment on above: Result Comment: BARI GEMENT OF PATIENT CARE PER NURSING PROTOCOL Performed By: #### L [id number] #### [facility] [address] [place], [address] FINGERSTICK GLU 155 mg/dL High 74-106 [facility] Comment on above: Result Comment: BARI GEMENT OF PATIENT CARE PER NURSING PROTOCOL Performed By: #### L [id number] #### [facility] [address] [place], [address] FINGERSTICK GLU 123 mg/dL High 74-106 [facility] Comment on above: Result Comment: BARI GEMENT OF PATIENT CARE PER NURSING PROTOCOL Performed By: #### L [id number] #### [facility] [address] [place], [address] FINGERSTICK GLU 97 mg/dL Normal 74-106 [facility] Comment on above: Result Comment: BARI GEMENT OF PATIENT CARE PER NURSING PROTOCOL Performed By: #### L [id number] #### [facility] [address] [place], [address] FINGERSTICK GLU 87 mg/dL Normal 74-106 [facility] Comment on above: Result Comment: BARI RIOS OF PATIENT CARE PER NURSING PROTOCOL Performed By: #### L [id number] #### [facility] [address] [place], [address] Basic Metabolic Profile (BMP )on 08-04-2025 BUN/CRE 18.6 RATIO Normal 10-20 [facility] Comment on above: Performed By: #### L [id number] #### [facility] [address] [place], [address] Calcium [Mass/Vol] 9.1 mg/dL Normal 7.6-11.0 [facility] Comment on above: Performed By: #### [id number] #### [facility] [address] [place], [address] Chloride [Moles/Vol] 103 mmol/L Normal 98-108 [facility] Comment on above: Performed By: #### [id number] #### [facility] [address] [place], [address] CO2 [Moles/Vol] 23.0 mmol/L Normal 21.0-32.0 [facility] Comment on above: Performed By: #### [id number] #### [facility] [address] [place], [address] Creatinine [Mass/Vol] 2.43 mg/dL High 0.70-1.20 [facility] Comment on above: Performed By: #### [id number] #### [facility] [address] [place], [address] ECRCL 25.93 ml/min Low 50-250 [facility] Comment on above: Performed By: #### [id number] #### [facility] [address] [place], [address] GAP 10 Normal 5-15 [facility] Comment on above: Performed By: #### L [id number] #### [facility] [address] [place], [address] GFR/1.73 sq M.predicted among non-blacks MDRD (S/P/Bld) [Vol rate/Area] 25 mL/min/{1.73_m2} Low >60 [facility] Comment on above: Result Comment: mL/m in/1.73m2 CKD-EPI Creatinine Equation (2020) Performed By: #### L [id number] #### [facility] [address] [place], [address] Glucose [Mass/Vol] 102 mg/dL High 70-99 [facility] Comment on above: Performed By: #### L [id number] #### [facility] [address] [place], [address] Potassium [Moles/Vol] 4.5 mmol/L Normal 3.3-5.1 [facility] Comment on above: Performed By: #### [id number] #### [facility] [address] [place], [address] Sodium [Moles/Vol] 137 mmol/L Normal 133-145 [facility] Comment on above: Performed By: #### [id number] #### [facility] [address] [place], [address] Urea nitrogen [Mass/Vol] 45 mg/dL High 4-19 [facility] Comment on above: Performed By: #### L [id number] #### [facility] [address] [place], [address] Bedside Glucoseon 08-04-2025 FINGERSTICK GLU 193 mg/dL High 74-106 [facility] Comment on above: Result Comment: BARI RIOS OF PATIENT CARE PER NURSING PROTOCOL Performed By: #### L [id number] #### [facility] [address] [place], [address] FINGERSTICK GLU 96 mg/dL Normal 74-106 [facility] Comment on above: Result Comment: BARI GEMENT OF PATIENT CARE PER NURSING PROTOCOL Performed By: #### L [id number] #### [facility] [address] [place], [address] FINGERSTICK GLU 88 mg/dL Normal 74-106 [facility] Comment on above: Result Comment: BARI GEMENT OF PATIENT CARE PER NURSING PROTOCOL Performed By: #### L [id number] #### [facility] [address] [place], [address] FINGERSTICK GLU 126 mg/dL High 74-106 [facility] Comment on above: Result Comment: BARI GEMENT OF PATIENT CARE PER NURSING PROTOCOL Performed By: #### L [id number] #### [facility] [address] [place], [address] HH, Hemoglobin AND Hematocri ton 08-04-2025 Hematocrit (Bld) [Volume fraction] 31.3 % Low 40-54 [facility] Comment on above: Performed By: #### L [id number] #### [facility] [address] [place], [address] Hemoglobin (Bld) [Mass/Vol] 10.5 g/dL Low 13.0-16.5 [facility] Comment on above: Performed By: #### L [id number] #### [facility] [address] [place], [address] Bedside Glucoseon 08-03-2025 FINGERSTICK GLU 162 mg/dL High 74-106 [facility] Comment on above: Result Comment: BARI GEMENT OF PATIENT CARE PER NURSING PROTOCOL Performed By: #### L [id number] #### [facility] [address] [place], [address] FINGERSTICK GLU 118 mg/dL High 74-106 [facility] Comment on above: Result Comment: BARI GEMENT OF PATIENT CARE PER NURSING PROTOCOL Performed By: #### L [id number] #### [facility] [address] [place], [address] FINGERSTICK GLU 149 mg/dL High 74-106 [facility] Comment on above: Result Comment: BARI GEMENT OF PATIENT CARE PER NURSING PROTOCOL Performed By: #### L 501.080 #### [facility] [address] [place], [address] FINGERSTICK GLU 122 mg/dL High 74-106 [facility] Comment on above: Result Comment: BARI GEMENT OF PATIENT CARE PER NURSING PROTOCOL Performed By: #### L 501.080 #### [facility] [address] [place], [address] Bedside Glucoseon 08-02-2025 FINGERSTICK GLU 188 mg/dL High 74-106 [facility] Comment on above: Result Comment: BARI GEMENT OF PATIENT CARE PER NURSING PROTOCOL Performed By: #### L 501.080 #### [facility] [address] [place], [address] FINGERSTICK GLU 194 mg/dL High 74-106 [facility] Comment on above: Result Comment: BARI GEMENT OF PATIENT CARE PER NURSING PROTOCOL Performed By: #### L 501.080 #### [facility] [address] [place], [address] FINGERSTICK GLU 161 mg/dL High 74-106 [facility] Comment on above: Result Comment: BARI GEMENT OF PATIENT CARE PER NURSING PROTOCOL Performed By: #### L 501.080 #### [facility] [address] [place], [address] FINGERSTICK GLU 140 mg/dL High 74-106 [facility] Comment on above: Result Comment: BARI GEMENT OF PATIENT CARE PER NURSING PROTOCOL Performed By: #### L 501.080 #### [facility] [address] [place], [address] Bedside Glucoseon 08-01-2025 FINGERSTICK GLU 177 mg/dL High 74-106 [facility] Comment on above: Result Comment: BARI GEMENT OF PATIENT CARE PER NURSING PROTOCOL Performed By: #### L 501.080 #### [facility] [address] [place], [address] FINGERSTICK GLU 144 mg/dL High 74-106 [facility] Comment on above: Result Comment: BARI GEMENT OF PATIENT CARE PER NURSING PROTOCOL Performed By: #### L 501.080 #### [facility] [address] [place], [address] FINGERSTICK GLU 155 mg/dL High 74-106 [facility] Comment on above: Result Comment: BARI GEMENT OF PATIENT CARE PER NURSING PROTOCOL Performed By: #### L 501.080 #### [facility] [address] [place], [address] FINGERSTICK GLU 106 mg/dL Normal 74-106 [facility] Comment on above: Result Comment: BARI GEMENT OF PATIENT CARE PER NURSING PROTOCOL Performed By: #### L 501.080 #### [facility] [address] [place], [address] Basic Metabolic Profile (BMP )on 07-31-2025 BUN/CRE 16.2 RATIO Normal 10-20 [facility] Comment on above: Performed By: #### L 400.0001 #### [facility] [address] [place], [address] Calcium [Mass/Vol] 9.3 mg/dL Normal 7.6-11.0 [facility] Comment on above: Performed By: #### L 400.0001 #### [facility] [address] [place], [address] Chloride [Moles/Vol] 101 mmol/L Normal 98-108 [facility] Comment on above: Performed By: #### L 400.0001 #### [facility] [address] [place], [address] CO2 [Moles/Vol] 25.6 mmol/L Normal 21.0-32.0 [facility] Comment on above: Performed By: #### L 400.0001 #### [facility] [address] [place], [address] Creatinine [Mass/Vol] 2.58 mg/dL High 0.70-1.20 [facility] Comment on above: Performed By: #### L 400.0001 #### [facility] [address] [place], [address] ECRCL 24.56 ml/min Low 50-250 [facility] Comment on above: Performed By: #### L 400.0001 #### [facility] [address] [place], [address] GAP 11 Normal 5-15 [facility] Comment on above: Performed By: #### L 400.0001 #### [facility] [address] [place], [address] GFR/1.73 sq M.predicted among non-blacks MDRD (S/P/Bld) [Vol rate/Area] 24 mL/min/{1.73_m2} Low >60 [facility] Comment on above: Result Comment: mL/m in/1.73m2 CKD-EPI Creatinine Equation (2020) Performed By: #### L 400.0001 #### [facility] [address] [place], [address] Glucose [Mass/Vol] 126 mg/dL High 70-99 [facility] Comment on above: Performed By: #### L 400.0001 #### [facility] [address] [place], [address] Potassium [Moles/Vol] 4.7 mmol/L Normal 3.3-5.1 [facility] Comment on above: Performed By: #### L 400.0001 #### [facility] [address] [place], [address] Sodium [Moles/Vol] 138 mmol/L Normal 133-145 [facility] Comment on above: Performed By: #### L 400.0001 #### [facility] [address] [place], [address] Urea nitrogen [Mass/Vol] 42 mg/dL High 4-19 [facility] Comment on above: Performed By: #### L 400.0001 #### [facility] [address] [place], [address] Bedside Glucoseon 07-31-2025 FINGERSTICK GLU 174 mg/dL High 74-106 [facility] Comment on above: Result Comment: BARI GEMENT OF PATIENT CARE PER NURSING PROTOCOL Performed By: #### L 501.080 #### [facility] [address] [place], [address] FINGERSTICK GLU 169 mg/dL High 74-106 [facility] Comment on above: Result Comment: BARI GEMENT OF PATIENT CARE PER NURSING PROTOCOL Performed By: #### L 501.080 #### [facility] [address] [place], [address] FINGERSTICK GLU 161 mg/dL High 74-106 [facility] Comment on above: Result Comment: BARI GEMENT OF PATIENT CARE PER NURSING PROTOCOL Performed By: #### L 501.080 #### [facility] [address] [place], [address] FINGERSTICK GLU 107 mg/dL High 74-106 [facility] Comment on above: Result Comment: BARI GEMENT OF PATIENT CARE PER NURSING PROTOCOL Performed By: #### L 400.0001 #### [facility] [address] [place], [address] CBC W/Diff, Automatedon 11-0 7-2024 Absolute Lymph 2.33 X10 3/uL Normal 0.83-4.51 [facility] Comment on above: Performed By: #### L 400.0001 #### [facility] [address] [place], [address] Absolute Neut 4.2 X10 3/uL Normal 2.0-7.7 [facility] Comment on above: Performed By: #### L 400.0001 #### [facility] [address] [place], [address] Basophils/100 WBC (Bld) 1.1 % High 0-1 [facility] Comment on above: Performed By: #### L 400.0001 #### [facility] [address] [place], [address] Eosinophils/100 WBC (Bld) 8.1 % High 0-5 [facility] Comment on above: Performed By: #### L 400.0001 #### [facility] [address] [place], [address] Erythrocyte distribution width (RBC) [Ratio] 14.1 % Normal 11.6-14.6 [facility] Comment on above: Performed By: #### L 400.0001 #### [facility] [address] [place], [address] Hematocrit (Bld) [Volume fraction] 35.3 % Low 40-54 [facility] Comment on above: Performed By: #### L 400.0001 #### [facility] [address] [place], [address] Hemoglobin (Bld) [Mass/Vol] 11.4 g/dL Low 13.0-16.5 [facility] Comment on above: Performed By: #### L 400.0001 #### [facility] [address] [place], [address] IG% 0.600 Normal 0.0-0.9 [facility] Comment on above: Result Comment: IG% - Immature Granulocytes (promyelocytes, myelocytes and metamyelocytes) > 1% indicates that a LEFT SHIFT is Present. Performed By: #### L 400.0001 #### [facility] [address] [place], [address] Lymphocytes/100 WBC (Bld) 29.3 % Normal 19-41 [facility] Comment on above: Performed By: #### L 400.0001 #### [facility] [address] [place], [address] MCH (RBC) [Entitic mass] 29.9 pg Normal 27.0-32.0 [facility] Comment on above: Performed By: #### L 400.0001 #### [facility] [address] [place], [address] MCHC (RBC) [Mass/Vol] 32.3 g/dL Normal 32-36 [facility] Comment on above: Performed By: #### L 400.0001 #### [facility] [address] [place], [address] MCV (RBC) [Entitic vol] 92.7 fL Normal 80-94 [facility] Comment on above: Performed By: #### L 400.0001 #### [facility] [address] [place], [address] Monocytes/100 WBC (Bld) 7.8 % Normal 0-10 [facility] Comment on above: Performed By: #### L 400.0001 #### [facility] [address] [place], [address] Neutrophils/100 WBC (Bld) 53.1 % Normal 47-70 [facility] Comment on above: Performed By: #### L 400.0001 #### [facility] [address] [place], [address] Nucleated RBC (Bld) [#/Vol] 0 10*3/uL Normal 0-5 [facility] Comment on above: Performed By: #### L 400.0001 #### [facility] [address] [place], [address] Platelet mean volume (Bld) [Entitic vol] 11.4 fL Normal 6.2-12.0 [facility] Comment on above: Performed By: #### L 400.0001 #### [facility] [address] [place], [address] Platelets (Bld) [#/Vol] 266 10*3/uL Normal 150-450 [facility] Comment on above: Performed By: #### L 400.0001 #### [facility] [address] [place], [address] RBC (Bld) [#/Vol] 3.81 10*6/uL Low 4.6-6.2 [facility] Comment on above: Performed By: #### L 400.0001 #### [facility] [address] [place], [address] RDW SD 47.9 fl High 35.1-43.9 [facility] Comment on above: Performed By: #### L 400.0001 #### [facility] [address] [place], [address] WBC (Bld) [#/Vol] 7.9 10*3/uL Normal 4.4-11.0 [facility] Comment on above: Performed By: #### L 400.0001 #### [facility] [address] [place], [address] Bedside Glucoseon 07-30-2025 FINGERSTICK GLU 185 mg/dL High 74-106 [facility] Comment on above: Result Comment: BARI ROIS OF PATIENT CARE PER NURSING PROTOCOL Performed By: #### L 501.080 #### [facility] [address] [place] [place], [address] FINGERSTICK GLU 152 mg/dL High 74-106 [facility] Comment on above: Result Comment: BARI GEMENT OF PATIENT CARE PER NURSING PROTOCOL Performed By: #### L 501.080 #### [facility] [address] [place], [address] FINGERSTICK GLU 175 mg/dL High 74-106 [facility] Comment on above: Result Comment: BARI GEMENT OF PATIENT CARE PER NURSING PROTOCOL Performed By: #### L 501.080 #### [facility] [address] [place], [address] FINGERSTICK GLU 136 mg/dL High 74-106 [facility] Comment on above: Result Comment: BARI GEMENT OF PATIENT CARE PER NURSING PROTOCOL Performed By: #### L 501.080 #### [facility] [address] [place], [address] Urinalysis, Completeon 07-30 EPI,SQUAMOUS 0-5 SEEN Normal 0-5 [facility] Comment on above: Order Comment: ZURI TER SPECIMEN Performed By: #### L 400.0001 #### [facility] [address] [place], [address] RBC 0-5 SEEN Normal 0-5 [facility] Comment on above: Order Comment: ZURI TER SPECIMEN Performed By: #### L 400.0001 #### [facility] [address] [place], [address] WBC 0-5 SEEN Normal 0-5 [facility] Comment on above: Order Comment: ZURI TER SPECIMEN Performed By: #### L 400.0001 #### [facility] [address] [place], [address] BACTERIA 0 SEEN Normal None Seen [facility] Comment on above: Order Comment: ZURI TER SPECIMEN Performed By: #### L 400.0001 #### [facility] [address] [place], [address] Mucus Ql (Urine sed) 0 SEEN Normal [facility] Comment on above: Order Comment: [facility] SPECIMEN Performed By: #### L 400.0001 #### [facility] [address] [place], [address] Bedside Glucoseon 07-29-2025 FINGERSTICK GLU 162 mg/dL High 74-106 [facility] Comment on above: Result Comment: BARI GEMENT OF PATIENT CARE PER NURSING PROTOCOL Performed By: #### L 400.0001 #### [facility] [address] [place], [address] FINGERSTICK GLU 166 mg/dL High [address] [place] [address] Comment on above: Result Comment: BARI GEMENT OF PATIENT CARE PER NURSING PROTOCOL Performed By: #### L 400.0001 #### [facility] [address] [place], [address] FINGERSTICK GLU 180 mg/dL High -[address] [place] [address] Comment on above: Result Comment: BARI GEMENT OF PATIENT CARE PER NURSING PROTOCOL Performed By: #### L 501.080 #### [facility] [address] [place], [address] FINGERSTICK GLU 135 mg/dL High [facility]106 [facility] Comment on above: Result Comment: BARI GEMENT OF PATIENT CARE PER NURSING PROTOCOL Performed By: #### L 400.0001 #### [facility] [address] [place], [address] Bedside Glucoseon 07-28-2025 FINGERSTICK GLU 147 mg/dL High -106 [facility] Comment on above: Result Comment: BARI GEMENT OF PATIENT CARE PER NURSING PROTOCOL Performed By: #### L 501.080 #### [facility] [address] [place], [address] FINGERSTICK GLU 175 mg/dL High [facility]106 [facility] Comment on above: Result Comment: BARI GEMENT OF PATIENT CARE PER NURSING PROTOCOL Performed By: #### L 501.080 #### [facility] [address] [place], [address] FINGERSTICK GLU 222 mg/dL High 74-106 [facility] Comment on above: Result Comment: BARI GEMENT OF PATIENT CARE PER NURSING PROTOCOL Performed By: #### L 501.080 #### [facility] [address] [place], [address] FINGERSTICK GLU 160 mg/dL High 74-106 [facility] Comment on above: Result Comment: BARI GEMENT OF PATIENT CARE PER NURSING PROTOCOL Performed By: #### L 400.0001 #### [facility] [address] [place], [address] T4 Free Directon 07-28-2025 T4 FREE DIRECT 1.00 ng/dL Normal 0.76-1.46 [facility] Comment on above: Performed By: #### L 501.080 #### [facility] [address] [place], [address] Thyroid Stim Hormone (TSH)on 07-28-2025 TSH 3.400 uIU/mL Normal 0.300-4.200 [facility] Comment on above: Performed By: #### L 501.080 #### [facility] [address] [place], [address] Bedside Glucoseon 07-27-2025 FINGERSTICK GLU 185 mg/dL High 74-106 [facility] Comment on above: Result Comment: BARI GEMENT OF PATIENT CARE PER NURSING PROTOCOL Performed By: #### L 400.0001 #### [facility] [address] [place], [address] FINGERSTICK GLU 141 mg/dL High 74-106 [facility] Comment on above: Result Comment: BARI GEMENT OF PATIENT CARE PER NURSING PROTOCOL Performed By: #### L 501.080 #### [facility] [address] [place], [address] FINGERSTICK GLU 252 mg/dL High 74-106 [facility] Comment on above: Result Comment: BARI GEMENT OF PATIENT CARE PER NURSING PROTOCOL Performed By: #### L 400.0001 #### [facility] [address] [place], [address] FINGERSTICK GLU 188 mg/dL High 74-106 [facility] Comment on above: Result Comment: BARI GEMENT OF PATIENT CARE PER NURSING PROTOCOL Performed By: #### L 501.080 #### [facility] [address] [place], [address] CBC-Complete Blood Cnt No Di ffon 07-27-2025 Erythrocyte distribution width (RBC) [Ratio] 13.9 % Normal 11.6-14.6 [facility] Comment on above: Performed By: #### L 501.080 #### [facility] [address] [place], [address] Hematocrit (Bld) [Volume fraction] 38.6 % Low 40-54 [facility] Comment on above: Performed By: #### L 501.080 #### [facility] [address] [place], [address] Hemoglobin (Bld) [Mass/Vol] 12.7 g/dL Low 13.0-16.5 [facility] Comment on above: Performed By: #### L 501.080 #### [facility] [address] [place], [address] MCH (RBC) [Entitic mass] 30.5 pg Normal 27.0-32.0 [facility] Comment on above: Performed By: #### L 501.080 #### [facility] [address] [place], [address] MCHC (RBC) [Mass/Vol] 32.9 g/dL Normal 32-36 [facility] Comment on above: Performed By: #### L 501.080 #### [facility] [address] [place], [address] MCV (RBC) [Entitic vol] 92.6 fL Normal 80-94 [facility] Comment on above: Performed By: #### L 501.080 #### [facility] [address] [place], [address] Platelet mean volume (Bld) [Entitic vol] 11.0 fL Normal 6.2-12.0 [facility] Comment on above: Performed By: #### L 501.080 #### [facility] [address] [place], [address] Platelets (Bld) [#/Vol] 281 10*3/uL Normal 150-450 [facility] Comment on above: Performed By: #### L 501.080 #### [facility] [address] [place], [address] RBC (Bld) [#/Vol] 4.17 10*6/uL Low 4.6-6.2 [facility] Comment on above: Performed By: #### L 501.080 #### [facility] [address] [place], [address] RDW SD 47.0 fl High 35.1-43.9 [facility] Comment on above: Performed By: #### L 501.080 #### [facility] [address] [place], [address] WBC (Bld) [#/Vol] 9.8 10*3/uL Normal 4.4-11.0 [facility] Comment on above: Performed By: #### L 501.080 #### [facility] [address] [place], [address] Comprehensive Metabolic Prof ilon 07-27-2025 Albumin [Mass/Vol] 3.9 g/dL Normal 3.4-4.8 [facility] Comment on above: Performed By: #### L 501.080 #### [facility] [address] [place], [address] Albumin/Globulin [Mass ratio] 1.0 {ratio} Normal 0.9-2.4 [facility] Comment on above: Performed By: #### L 501.080 #### [facility] [address] [place], [address] ALK PHOS 131 U/L High 40-129 [facility] Comment on above: Performed By: #### L 501.080 #### [facility] [address] [place], [address] ALT [Catalytic activity/Vol] 10 U/L Normal <=46 [facility] Comment on above: Performed By: #### L 501.080 #### [facility] [address] [place], [address] AST [Catalytic activity/Vol] 24 U/L Normal <=37 [facility] Comment on above: Performed By: #### L 501.080 #### [facility] [address] [place], [address] Bilirubin [Mass/Vol] 0.71 mg/dL Normal 0.00-1.30 [facility] Comment on above: Performed By: #### L 501.080 #### [facility] [address] [place], [address] BUN/CRE 15.8 RATIO Normal 10-20 [facility] Comment on above: Performed By: #### L 501.080 #### [facility] [address] [place], [address] Calcium [Mass/Vol] 9.5 mg/dL Normal 7.6-11.0 [facility] Comment on above: Performed By: #### L 501.080 #### [facility] [address] [place], [address] Chloride [Moles/Vol] 100 mmol/L Normal 98-108 [facility] Comment on above: Performed By: #### L 501.080 #### [facility] [address] [place], [address] CO2 [Moles/Vol] 24.8 mmol/L Normal 21.0-32.0 [facility] Comment on above: Performed By: #### L 501.080 #### [facility] [address] [place], [address] Creatinine [Mass/Vol] 2.33 mg/dL High 0.70-1.20 [facility] Comment on above: Performed By: #### L 501.080 #### [facility] [address] [place], [address] ECRCL 27.21 ml/min Low 50-250 [facility] Comment on above: Performed By: #### L 501.080 #### [facility] [address] [place], [address] GAP 12 Normal 5-15 [facility] Comment on above: Performed By: #### L 501.080 #### [facility] [address] [place], [address] GFR/1.73 sq M.predicted among non-blacks MDRD (S/P/Bld) [Vol rate/Area] 27 mL/min/{1.73_m2} Low >60 [facility] Comment on above: Result Comment: mL/m in/1.73m2 CKD-EPI Creatinine Equation (2020) Performed By: #### L 501.080 #### [facility] [address] [place], [address] Globulin (S) [Mass/Vol] 3.9 g/dL Normal 2.2-4.2 [facility] Comment on above: Performed By: #### L 501.080 #### [facility] [address] [place], [address] Glucose [Mass/Vol] 192 mg/dL High 70-99 [facility] Comment on above: Performed By: #### L 501.080 #### [facility] [address] [place], [address] Potassium [Moles/Vol] 4.9 mmol/L Normal 3.3-5.1 [facility] Comment on above: Performed By: #### L 501.080 #### [facility] [address] [place], [address] Sodium [Moles/Vol] 137 mmol/L Normal 133-145 [facility] Comment on above: Performed By: #### L 501.080 #### [facility] [address] [place], [address] T PROT 7.7 g/dL Normal 5.9-8.4 [facility] Comment on above: Performed By: #### L 501.080 #### [facility] [address] [place], [address] Urea nitrogen [Mass/Vol] 37 mg/dL High 4-19 [facility] Comment on above: Performed By: #### L 501.080 #### [facility] [address] [place], [address] Magnesiumon 07-27-2025 Magnesium [Mass/Vol] 2.5 mg/dL High 1.5-2.2 [facility] Comment on above: Result Comment: AMENDED REPORT 07/27/25 1106 MG previously reported as: 2.4 H mg/dL Performed By: #### L 501.080 #### [facility] [address] [place], [address] Phosphoruson 07-27-2025 Phosphate [Mass/Vol] 4.3 mg/dL Normal 2.7-4.5 [facility] Comment on above: Performed By: #### L 501.080 #### [facility] [address] [place], [address] Uric Acidon 07-27-2025 URIC 8.5 mg/dL High 3.5-7.2 [facility] Comment on above: Result Comment: The drugs N-Acetylcysteine and Metamizole may falsely depress this assay. Performed By: #### L 501.080 #### [facility] [address] [place], [address] Urine Cultureon 07-27-2025 URC Culture exhibits no growth. Normal [facility] Comment on above: Performed By: #### L 501.080 #### [facility] [address] [place], [address] Bedside Glucoseon 07-26-2025 FINGERSTICK GLU 227 mg/dL High 74-106 [facility] Comment on above: Result Comment: BARI GEMENT OF PATIENT CARE PER NURSING PROTOCOL Performed By: #### L 501.080 #### [facility] [address] [place], [address] FINGERSTICK GLU 244 mg/dL High [facility]106 [facility] Comment on above: Result Comment: BARI GEMENT OF PATIENT CARE PER NURSING PROTOCOL Performed By: #### L 501.080 #### [facility] [address] [place], [address] FINGERSTICK GLU 191 mg/dL High -106 [facility] Comment on above: Result Comment: BARI GEMENT OF PATIENT CARE PER NURSING PROTOCOL Performed By: #### L 501.080 #### [facility] [address] [place], [address] Glucose Test strip manual (B ld) [Mass/Vol]on 07-26-2025 Glucose [Mass/Vol] 157 mg/dL High 74 - 99 mg/dL [facility] Interpretation and review of laboratory results Abnormal [facility] Glucose [Mass/Vol] 157 mg/dL High 74-99 [facility] Comment on above: Performed By: #### 4 548-4 #### MARIAM Stroud ([id number]) [facility] ([facility]) [address] [place] [address] Urinalysis, Completeon 07-26 CAST,HYALINE 0-5 SEEN Normal 0-5 [facility] Comment on above: Order Comment: ZURI TER SPECIMEN Performed By: #### L 400.0001 #### [facility] [address] [place], [address] RBC 0-5 SEEN Normal 0-5 [facility] Comment on above: Order Comment: ZURI TER SPECIMEN Performed By: #### L 400.0001 #### [facility] [address] [place], [address] WBC 0-5 SEEN Normal 0-5 [facility] Comment on above: Order Comment: ZURI TER SPECIMEN Performed By: #### L 400.0001 #### [facility] [address] [place], [address] BACTERIA 0 SEEN Normal None Seen [facility] Comment on above: Order Comment: ZURI TER SPECIMEN Performed By: #### L 400.0001 #### [facility] [address] [place], [address] EPI,SQUAMOUS 0 SEEN Normal 0-5 [facility] Comment on above: Order Comment: ZURI TER SPECIMEN Performed By: #### L 400.0001 #### [facility] [address] [place], [address] Mucus Ql (Urine sed) 0 SEEN Normal [facility] Comment on above: Order Comment: ZURI TER SPECIMEN Performed By: #### L 400.0001 #### [facility] [address] [place], [address] Glucose Test strip manual (B ld) [Mass/Vol]on 07-25-2025 Glucose [Mass/Vol] 198 mg/dL High 74 - 99 mg/dL [facility] Interpretation and review of laboratory results Abnormal [facility] Glucose [Mass/Vol] 198 mg/dL High 74-99 [facility] Comment on above: Performed By: #### 4 548-4 #### MARIAM Stroud ([id number]) [facility] ([facility]) [address] [place] [address] Glucose [Mass/Vol] 260 mg/dL High 74 - 99 mg/dL [facility] Interpretation and review of laboratory results Abnormal [facility] Glucose [Mass/Vol] 260 mg/dL High 74-99 [facility] Comment on above: Performed By: #### 1 4959-1 #### MARIAM Stroud ([id number]) [facility] ([facility]) [address] [place] [address] Glucose [Mass/Vol] 103 mg/dL High 74 - 99 mg/dL [facility] Interpretation and review of laboratory results Abnormal [facility] Glucose [Mass/Vol] 103 mg/dL High 74-99 [facility] Comment on above: Performed By: #### 1 4959-1 #### MARIAM Stroud ([id number]) [facility] ([facility]) [address] [place] [address] Glucose [Mass/Vol] 181 mg/dL High 74 - 99 mg/dL [facility] Interpretation and review of laboratory results Abnormal [facility] Glucose [Mass/Vol] 181 mg/dL High 74-99 [facility] Comment on above: Performed By: #### 1 4959-1 #### MARIAM Stroud ([id number]) [facility] ([facility]) [address] [place] [address] Basic metabolic 2000 panelon 07-24-2025 Anion gap [Moles/Vol] 15 mmol/L 10 - 2 0 mmol/L [facility] Calcium [Mass/Vol] 9.4 mg/dL 8.6 - 10. 6 mg/dL [facility] Chloride [Moles/Vol] 100 mmol/L 98 - 10 7 mmol/L [facility] CO2 [Moles/Vol] 27 mmol/L 21 - 32 mmol/L [facility] Creatinine [Mass/Vol] 2.22 mg/dL High 0.50 - 1.30 mg/dL [facility] GFR/1.73 sq M.predicted among non-blacks MDRD (S/P/Bld) [Vol rate/Area] 28 mL/min/{1.73_m2} Low - PINF [facility] Glucose [Mass/Vol] 162 mg/dL High 74 - 99 mg/dL [facility] Interpretation and review of laboratory results Abnormal [facility] Potassium [Moles/Vol] 4.6 mmol/L 3.5 - 5.3 mmol/L [facility] Sodium [Moles/Vol] 137 mmol/L 136 - 145 mmol/L [facility] Urea nitrogen [Mass/Vol] 38 mg/dL High 6 - 23 mg/dL [facility] Anion gap [Moles/Vol] 15 mmol/L Normal 10-20 [facility] Comment on above: Performed By: #### 1 4959-1 #### MARIAM Stroud ([id number]) [facility] ([facility]) [address] [place] [address] Calcium [Mass/Vol] 9.4 mg/dL Normal 8.6-10.6 [facility] Comment on above: Performed By: #### 1 4959-1 #### MARIAM Stroud ([id number]) [facility] ([facility]) [address] [place] [address] Chloride [Moles/Vol] 100 mmol/L Normal 98-107 [facility] Comment on above: Performed By: #### 1 4959-1 #### MARIAM Stroud ([id number]) [facility] ([facility]) [address] [place] [address] CO2 [Moles/Vol] 27 mmol/L Normal 21-32 [facility] Comment on above: Result Comment: Bica rbonate results may be falsely elevated when Lactate Dehydrogenase (LDH) concentrations exceed 2,000 U/L due to a temporary reagent manufacturing issue. If significantly elevated LDH levels are suspected, interpret bicarbonate results with caution, correlate with the patient's clinical status, and consider confirming CO2 values using a blood gas analyzer. Performed By: #### 1 4959-1 #### MARIAM Stroud ([id number]) [facility] ([facility]) [id number] [place] [address] Creatinine [Mass/Vol] 2.22 mg/dL High 0.50-1.30 [facility] Comment on above: Performed By: #### 1 4959-1 #### MARIAM Stroud ([id number]) [facility] ([facility]) [address] [place] [address] Glomerular filtration rate 28 mL/min/1.73m*2 Low >60 [facility] Comment on above: Result Comment: Calc ulations of estimated GFR are performed using the 2020 CKD-EPI Study Refit equation without the race variable for the IDMS-Traceable creatinine methods. https://jasn.asnjournals.org/content//ASN.376585 7518 Performed By: #### 1 4959-1 #### MARIAM Stroud ([id number]) [facility] ([facility]) [address] [place] [address] Glucose [Mass/Vol] 162 mg/dL High 74-99 [facility] Comment on above: Performed By: #### 1 4959-1 #### MARIAM Stroud ([id number]) [facility] ([facility]) [address] [place] [address] Potassium [Moles/Vol] 4.6 mmol/L Normal 3.5-5.3 [facility] Comment on above: Performed By: #### 1 4959-1 #### MARIAM Stroud ([id number]) [facility] ([facility]) [address] [place] [address] Sodium [Moles/Vol] 137 mmol/L Normal 136-145 [facility] Comment on above: Performed By: #### 1 4959-1 #### MARIAM Stroud ([id number]) [facility] ([facility]) [address] [place] [address] Urea nitrogen [Mass/Vol] 38 mg/dL High 6-23 [facility] Comment on above: Performed By: #### 1 4959-1 #### MARIAM Stroud ([id number]) [facility] ([facility]) [address] [place] [address] CBC panel Auto (Bld)on 07-24 Erythrocyte distribution width (RBC) [Ratio] 13.9 % 11.5 - 14.5 % [facility] Hematocrit (Bld) [Volume fraction] 35.3 % Low 41.0 - 52.0 % [facility] Hemoglobin (Bld) [Mass/Vol] 11.2 g/dL Low 13.5 - 17.5 g/dL [facility] Interpretation and review of laboratory results Abnormal [facility] MCH (RBC) [Entitic mass] 29.9 pg 26.0 - 34.0 pg [facility] MCHC (RBC) [Mass/Vol] 31.7 g/dL Low 32.0 - 36.0 g/dL [facility] MCV (RBC) [Entitic vol] 94 fL 80 - 100 fL [facility] Nucleated RBC/100 WBC (Bld) [Ratio] 0.0 % [facility] Platelets (Bld) [#/Vol] 277 10*3/uL [facility] RBC (Bld) [#/Vol] 3.74 10*6/uL Low [facility] WBC (Bld) [#/Vol] 12.1 10*3/uL High [facility] Erythrocyte distribution width (RBC) [Ratio] 13.9 % Normal 11.5-14.5 [facility] Comment on above: Performed By: #### 1 4959-1 #### MARIAM Stroud ([id number]) [facility] ([facility]) [address] [place] [address] Hematocrit (Bld) [Volume fraction] 35.3 % Low 41.0-52.0 [facility] Comment on above: Performed By: #### 1 4959-1 #### MARIAM Stroud ([id number]) [facility] ([facility]) [address] [place] [address] Hemoglobin (Bld) [Mass/Vol] 11.2 g/dL Low 13.5-17.5 [facility] Comment on above: Performed By: #### 1 4959-1 #### MARIAM Stroud ([id number]) [facility] ([facility]) [address] [place] [address]60 MCH (RBC) [Entitic mass] 29.9 pg Normal 26.0-34.0 [facility] Comment on above: Performed By: #### 1 4959-1 #### MARIAM Stroud ([id number]) [facility] ([facility]) [address] [place] [address]196 MCHC (RBC) [Mass/Vol] 31.7 g/dL Low 32.0-36.0 [facility] Comment on above: Performed By: #### 1 4959-1 #### MARIAM Stroud ([id number]) [facility] ([facility]) [address] [place] [address] 33690 MCV (RBC) [Entitic vol] 94 fL Normal 80-100 [facility] Comment on above: Performed By: #### 1 4959-1 #### MARIAM Stroud ([id number]) [facility] ([facility]) [address] [place] [address] 77533 Nucleated RBC/100 WBC (Bld) [Ratio] 0.0 /100 WBCs Normal 0.0-0.0 [facility] Comment on above: Performed By: #### 1 4959-1 #### MARIAM Stroud ([id number]) [facility] ([facility]) [address] [place] [address] Platelets (Bld) [#/Vol] 277 x10*3/uL Normal 150-450 [facility] Comment on above: Performed By: #### 1 4959-1 #### MARIAM MARTINEZ L ([id number]) [facility] ([facility]) [address] [place] [address] 67[address] RBC (Bld) [#/Vol] 3.74 x10*6/uL Low 4.50-5.90 [facility] Comment on above: Performed By: #### 1 4959-1 #### MARIAM Stroud ([id number]) [facility] ([facility]) [address] [place] [address]51 WBC (Bld) [#/Vol] 12.1 x10*3/uL High 4.4-11.3 [facility] Comment on above: Performed By: #### 1 4959-1 #### MARIAM Stroud (46034) [facility] ([facility]) [address] [place] [address] Glucose Test strip manual (B ld) [Mass/Vol]on 07-24-2025 Glucose [Mass/Vol] 237 mg/dL High 74 - 99 mg/dL [facility] Interpretation and review of laboratory results Abnormal [facility] Glucose [Mass/Vol] 237 mg/dL High 74-99 [facility] Comment on above: Performed By: #### 1 4959-1 #### MARIAM MARTINEZ L ([id number]) [facility] ([facility]) [address] [place] [address] Glucose [Mass/Vol] 190 mg/dL High 74 - 99 mg/dL [facility] Interpretation and review of laboratory results Abnormal [facility] Glucose [Mass/Vol] 190 mg/dL High 74-99 [facility] Comment on above: Performed By: #### 1 4959-1 #### MARIAM Stroud (16655) [facility] ([facility]) [address] [place] [address] 64021 Glucose [Mass/Vol] 248 mg/dL High 74 - 99 mg/dL [facility] Interpretation and review of laboratory results Abnormal [facility] Glucose [Mass/Vol] 248 mg/dL High 74-99 [facility] Comment on above: Performed By: #### 1 4959-1 #### MARIAM Stroud (51729) [facility] ([facility]) [address] [place] [address] 42960 Glucose [Mass/Vol] 165 mg/dL High 74 - 99 mg/dL [facility] Interpretation and review of laboratory results Abnormal [facility] Glucose [Mass/Vol] 165 mg/dL High 74-99 [facility] Comment on above: Performed By: #### 1 4959-1 #### MARIAM Stroud (04661) [facility] ([facility]) [address] [place] [address] 60911 Glucose Test strip manual (B ld) [Mass/Vol]on 07-23-2025 Glucose [Mass/Vol] 251 mg/dL High 74 - 99 mg/dL [facility] Interpretation and review of laboratory results Abnormal [facility] Glucose [Mass/Vol] 251 mg/dL High 74-99 [facility] Comment on above: Performed By: #### 1 4959-1 #### MARIAM Stroud (94949) [facility] ([facility]) [address] [place] [address] 75390 Glucose [Mass/Vol] 286 mg/dL High 74 - 99 mg/dL [facility] Interpretation and review of laboratory results Abnormal [facility] Glucose [Mass/Vol] 286 mg/dL High 74-99 [facility] Comment on above: Performed By: #### 3 016-3 #### MYA DE LA CRUZ ([id number]) [facility] ([facility]) [address] [place] [address] Glucose [Mass/Vol] 194 mg/dL High 74 - 99 mg/dL [facility] Interpretation and review of laboratory results Abnormal [facility] Glucose [Mass/Vol] 194 mg/dL High 74-99 [facility] Comment on above: Performed By: #### 3 016-3 #### MYA DE LA CRUZ (56535) [facility] ([facility]) [address] [place] [address]92 Glucose [Mass/Vol] 194 mg/dL High 74 - 99 mg/dL [facility] Interpretation and review of laboratory results Abnormal [facility] Glucose [Mass/Vol] 194 mg/dL High 74-99 [facility] Comment on above: Performed By: #### 3 016-3 #### YMA DE LA CRUZ ([id number]) [facility] ([facility]) [address] [place] [address]372 Glucose [Mass/Vol] 166 mg/dL High 74 - 99 mg/dL [facility] Interpretation and review of laboratory results Abnormal [facility] Glucose [Mass/Vol] 166 mg/dL High 74-99 [facility] Comment on above: Performed By: #### 3 016-3 #### MYA DE LA CRUZ (36552) [facility] ([facility]) [address] [place] [address]3858 XR ABDOMEN 1 VIEWon 07-23-20 XR ABDOMEN 1 VIEW Interpreted By: Siena Erickson, STUDY: XR ABDOMEN 1 VIEW; 07/23/2025 1:38 pm INDICATION: Signs/Symptoms:no BM in a week. COMPARISON: None. ACCESSION NUMBER(S): [id number] ORDERING CLINICIAN: JOSEPH JARAMILLO FINDINGS: Two views of the abdomen and pelvis. Nonobstructive bowel gas pattern. Large stool burden throughout the colon. Limited evaluation of pneumoperitoneum on supine imaging, however no gross evidence of free air is noted. Visualized lungs are clear. Osseous structures demonstrate no acute bony changes. IMPRESSION: 1. Nonobstructive bowel gas pattern with large stool burden throughout the colon. Signed by: Siena Colon 07/23/2025 2:14 PM Dictation workstation: [id number] Normal [facility] XR Abdomen Single viewon [facility] MM[facility]AL [facility] MMODAL [facility] Work Phone: Radiology Study observation (narrative) [facility] Work Phone: XR Abdomen Single viewOrdere d By: Riohowhit Delphineremi Colon on 07-23-2025 [facility] Work Phone: Basic metabolic 2000 panelon 07-22-2025 Anion gap [Moles/Vol] 14 mmol/L 10 - 2 0 mmol/L [facility] Calcium [Mass/Vol] 9.1 mg/dL 8.6 - 10. 6 mg/dL [facility] Chloride [Moles/Vol] 103 mmol/L 98 - 10 7 mmol/L [facility] CO2 [Moles/Vol] 25 mmol/L 21 - 32 mmol/L [facility] Creatinine [Mass/Vol] 2.04 mg/dL High 0.50 - 1.30 mg/dL [facility] GFR/1.73 sq M.predicted among non-blacks MDRD (S/P/Bld) [Vol rate/Area] 31 mL/min/{1.73_m2} Low - PINF [facility] Glucose [Mass/Vol] 159 mg/dL High 74 - 99 mg/dL [facility] Interpretation and review of laboratory results Abnormal [facility] Potassium [Moles/Vol] 4.1 mmol/L 3.5 - 5.3 mmol/L [facility] Sodium [Moles/Vol] 138 mmol/L 136 - 145 mmol/L [facility] Urea nitrogen [Mass/Vol] 36 mg/dL High 6 - 23 mg/dL [facility] Anion gap [Moles/Vol] 14 mmol/L Normal 10-[address] [facility] Comment on above: Performed By: #### 3 016-3 #### ROQUE JONO ([id number]) [facility] ([facility]) [address] [place] [address] Calcium [Mass/Vol] 9.1 mg/dL Normal 8.6-10.6 [facility] Comment on above: Performed By: #### 3 016-3 #### MYA DE LA CRUZ (24798) [facility] ([facility]) [address] [place] [address] 14266 Chloride [Moles/Vol] 103 mmol/L Normal 98-107 [facility] Comment on above: Performed By: #### 3 016-3 #### MYA DE LA CRUZ ([id number]) [facility] ([facility]) [address] [place] [address] 83703 CO2 [Moles/Vol] 25 mmol/L Normal 21-32 [facility] Comment on above: Result Comment: Bica rbonate results may be falsely elevated when Lactate Dehydrogenase (LDH) concentrations exceed 2,000 U/L due to a temporary reagent manufacturing issue. If significantly elevated LDH levels are suspected, interpret bicarbonate results with caution, correlate with the patient's clinical status, and consider confirming CO2 values using a blood gas analyzer. Performed By: #### 3 016-3 #### MYA DE LA CRUZ ([id number]) [facility] ([facility]) [address] [place] [address] 41113 Creatinine [Mass/Vol] 2.04 mg/dL High 0.50-1.30 [facility] Comment on above: Performed By: #### 3 016-3 #### MYA DE LA CRUZ ([id number]) [facility] ([facility]) [address] [place] [address] 35736 Glomerular filtration rate 31 mL/min/1.73m*2 Low >60 [facility] Comment on above: Result Comment: Calc ulations of estimated GFR are performed using the 2020 CKD-EPI Study Refit equation without the race variable for the IDMS-Traceable creatinine methods. https://jasn.asnjournals.org/content/early/ASN.298341 7397 Performed By: #### 3 016-3 #### MYA DE LA CRUZ ([id number]) [facility] ([facility]) [address] [place] [address] 68359 Glucose [Mass/Vol] 159 mg/dL High 74-99 [facility] Comment on above: Performed By: #### 3 016-3 #### MYA DE LA CRUZ ([id number]) [facility] ([facility]) [address] [place] [address] 37549 Potassium [Moles/Vol] 4.1 mmol/L Normal 3.5-5.3 [facility] Comment on above: Performed By: #### 3 016-3 #### MYA DE LA CRUZ ([id number]) [facility] ([facility]) [address] [place] [address] 53465 Sodium [Moles/Vol] 138 mmol/L Normal 136-145 [facility] Comment on above: Performed By: #### 3 016-3 #### MYA DE LA CRUZ ([id number]) [facility] ([facility]) [address] [place] [address] 81621 Urea nitrogen [Mass/Vol] 36 mg/dL High 6-23 [facility] Comment on above: Performed By: #### 3 016-3 #### MYA DE LA CRUZ ([id number]) [facility] ([facility]) [address] [place] [address] 19347 CBC W Auto Differential pane l (Bld)on 07-22-2025 Basophils (Bld) [#/Vol] 0.09 10*3/uL [facility] Basophils/100 WBC (Bld) 0.8 % 0.0 - 2.0 % [facility] Eosinophils (Bld) [#/Vol] 0.84 10*3/uL High [facility] Eosinophils/100 WBC (Bld) 7.6 % 0.0 - 6.0 % [facility] Erythrocyte distribution width (RBC) [Ratio] 14.0 % 11.5 - 14.5 % [facility] Hematocrit (Bld) [Volume fraction] 35.3 % Low 41.0 - 52.0 % [facility] Hemoglobin (Bld) [Mass/Vol] 11.3 g/dL Low 13.5 - 17.5 g/dL [facility] Immature granulocytes (Bld) [#/Vol] 0.06 10*3/uL [facility] Immature granulocytes/100 WBC (Bld) 0.5 % 0.0 - 0.9 % [facility] Interpretation and review of laboratory results Abnormal [facility] Lymphocytes (Bld) [#/Vol] 2.22 10*3/uL [facility] Lymphocytes/100 WBC (Bld) 20.2 % 13.0 - 44.0 % [facility] MCH (RBC) [Entitic mass] 30.2 pg 26.0 - 34.0 pg [facility] MCHC (RBC) [Mass/Vol] 32.0 g/dL 32.0 - 36.0 g/dL [facility] MCV (RBC) [Entitic vol] 94 fL 80 - 100 fL [facility] Monocytes (Bld) [#/Vol] 0.72 10*3/uL [facility] Monocytes/100 WBC (Bld) 6.5 % 2.0 - 10.0 % [facility] Neutrophils (Bld) [#/Vol] 7.08 10*3/uL High [facility] Neutrophils/100 WBC (Bld) 64.4 % 40.0 - 80.0 % [facility] Nucleated RBC/100 WBC (Bld) [Ratio] 0.0 % [facility] Platelets (Bld) [#/Vol] 236 10*3/uL [facility] RBC (Bld) [#/Vol] 3.74 10*6/uL Low [facility] WBC (Bld) [#/Vol] 11.0 10*3/uL [facility] Basophils (Bld) [#/Vol] 0.09 x10*3/uL Normal 0.00-0.10 [facility] Comment on above: Performed By: #### 2 4331-1 #### MYA DE LA CRUZ ([id number]) [facility] ([facility]) [address] [place] [address] 65587 Basophils/100 WBC (Bld) 0.8 % Normal 0.0-2.0 [facility] Comment on above: Performed By: #### 2 4331-1 #### MYA DE LA CRUZ ([id number]) [facility] ([facility]) [address] [place] [address] 17638 Eosinophils (Bld) [#/Vol] 0.84 x10*3/uL High 0.00-0.40 [facility] Comment on above: Performed By: #### 2 4331-1 #### MYA DE LA CRUZ ([id number]) [facility] ([facility]) [address] [place] [address] 51096 Eosinophils/100 WBC (Bld) 7.6 % Normal 0.0-6.0 [facility] Comment on above: Performed By: #### 2 4331-1 #### MYA DE LA CRUZ ([id number]) [facility] ([facility]) [address] [place] [address] 69896 Erythrocyte distribution width (RBC) [Ratio] 14.0 % Normal 11.5-14.5 [facility] Comment on above: Performed By: #### 2 4331-1 #### MYA DE LA CRUZ ([id number]) [facility] ([facility]) [address] [place] [address] 93600 Hematocrit (Bld) [Volume fraction] 35.3 % Low 41.0-52.0 [facility] Comment on above: Performed By: #### 2 4331-1 #### MYA DE LA CRUZ ([id number]) [facility] ([facility]) [address] [place] [address] 24436 Hemoglobin (Bld) [Mass/Vol] 11.3 g/dL Low 13.5-17.5 [facility] Comment on above: Performed By: #### 2 4331-1 #### MYA DE LA CRUZ ([id number]) [facility] LAB ([facility]) [address] [place] [address] 67733 Immature granulocytes (Bld) [#/Vol] 0.06 x10*3/uL Normal 0.00-0.50 [facility] Comment on above: Performed By: #### 2 4331-1 #### MYA DE LA CRUZ ([id number]) [facility] ([facility]) [address] [place] [address] 80856 Immature granulocytes/100 WBC (Bld) 0.5 % Normal 0.0-0.9 [facility] Comment on above: Result Comment: Eva ture Granulocyte Count (IG) includes promyelocytes, myelocytes and metamyelocytes but does not include bands. Percent differential counts (%) should be interpreted in the context of the absolute cell counts (cells/UL). Performed By: #### 2 4331-1 #### MYA DE LA CRUZ ([id number]) [facility] ([facility]) [address] [place] [address] 93053 Lymphocytes (Bld) [#/Vol] 2.22 x10*3/uL Normal 0.80-3.00 [facility] Comment on above: Performed By: #### 2 4331-1 #### MYA DE LA CRUZ ([id number]) [facility] ([facility]) [address] [place] [address] 28193 Lymphocytes/100 WBC (Bld) 20.2 % Normal 13.0-44.0 [facility] Comment on above: Performed By: #### 2 4331-1 #### MYA DE LA CRUZ ([id number]) [facility] ([facility]) [address] [place] [address] 46134 MCH (RBC) [Entitic mass] 30.2 pg Normal 26.0-34.0 [facility] Comment on above: Performed By: #### 2 4331-1 #### MYA DE LA CRUZ ([id number]) [facility] ([facility]) [address] [place] [address] 29631 MCHC (RBC) [Mass/Vol] 32.0 g/dL Normal 32.0-36.0 [facility] Comment on above: Performed By: #### 2 4331-1 #### MYA DE LA CRUZ ([id number]) [facility] ([facility]) [address] [place] [address] 78202 MCV (RBC) [Entitic vol] 94 fL Normal 80-100 [facility] Comment on above: Performed By: #### 2 4331-1 #### MYA DE LA CRUZ ([id number]) [facility] ([facility]) [address] [place] [address] 26977 Monocytes (Bld) [#/Vol] 0.72 x10*3/uL Normal 0.05-0.80 [facility] Comment on above: Performed By: #### 2 4331-1 #### MYA DE LA CRUZ ([id number]) [facility] ([facility]) [address] [place] [address] 33285 Monocytes/100 WBC (Bld) 6.5 % Normal 2.0-10.0 [facility] Comment on above: Performed By: #### 2 4331-1 #### MYA DE LA CRUZ ([id number]) [facility] ([facility]) [address] [place] [address] 09414 Neutrophils (Bld) [#/Vol] 7.08 x10*3/uL High 1.60-5.50 [facility] Comment on above: Result Comment: Perc ent differential counts (%) should be interpreted in the context of the absolute cell counts (cells/uL). Performed By: #### 2 4331-1 #### MYA DE LA CRUZ ([id number]) [facility] ([facility]) [address] [place] [address] 66448 Neutrophils/100 WBC (Bld) 64.4 % Normal 40.0-80.0 [facility] Comment on above: Performed By: #### 2 4331-1 #### MYA DE LA CRUZ ([id number]) [facility] ([facility]) [address] [place] [address] 73102 Nucleated RBC/100 WBC (Bld) [Ratio] 0.0 /100 WBCs Normal 0.0-0.0 [facility] Comment on above: Performed By: #### 2 4331-1 #### MYA DE LA CRUZ ([id number]) [facility] ([facility]) [address] [place] [address] 42866 Platelets (Bld) [#/Vol] 236 x10*3/uL Normal 150-450 [facility] Comment on above: Performed By: #### 2 4331-1 #### MYA DE LA CRUZ ([id number]) [facility] ([facility]) [address] [place] [address] 74336 RBC (Bld) [#/Vol] 3.74 x10*6/uL Low 4.50-5.90 [facility] Comment on above: Performed By: #### 2 4331-1 #### MYA DE LA CRUZ ([id number]) [facility] ([facility]) [address] [place] [address] 01421 WBC (Bld) [#/Vol] 11.0 x10*3/uL Normal 4.4-11.3 [facility] Comment on above: Performed By: #### 2 4331-1 #### MYA DE LA CRUZ ([id number]) [facility] ([facility]) [address] [place] [address] 90472 Glucose Test strip manual (B ld) [Mass/Vol]on 07-22-2025 Glucose [Mass/Vol] 267 mg/dL High 74 - 99 mg/dL [facility] Interpretation and review of laboratory results Abnormal [facility] Glucose [Mass/Vol] 267 mg/dL High 74-99 [facility] Comment on above: Performed By: #### 3 016-3 #### MYA DE LA CRUZ ([id number]) [facility] ([facility]) [address] [place] [address] 11341 Glucose [Mass/Vol] 370 mg/dL High 74 - 99 mg/dL [facility] Interpretation and review of laboratory results Abnormal [facility] Glucose [Mass/Vol] 370 mg/dL High 74-99 [facility] Comment on above: Performed By: #### 3 016-3 #### MYA DE LA CRUZ ([id number]) [facility] ([facility]) [address] [place] [address] 15035 Glucose [Mass/Vol] 238 mg/dL High 74 - 99 mg/dL [facility] Interpretation and review of laboratory results Abnormal [facility] Glucose [Mass/Vol] 238 mg/dL High 74-99 [facility] Comment on above: Performed By: #### 3 016-3 #### MYA DE LA CRUZ ([id number]) [facility] ([facility]) [address] [place] [address] 37122 Glucose [Mass/Vol] 170 mg/dL High 74 - 99 mg/dL [facility] Interpretation and review of laboratory results Abnormal [facility] Glucose [Mass/Vol] 170 mg/dL High 74-99 [facility] Comment on above: Performed By: #### 3 016-3 #### MYA DE LA CRUZ ([id number]) [facility] ([facility]) [address] [place] [address] 88355 Glucose Test strip manual (B ld) [Mass/Vol]on 07-21-2025 Glucose [Mass/Vol] 237 mg/dL High 74 - 99 mg/dL [facility] Interpretation and review of laboratory results Abnormal [facility] Glucose [Mass/Vol] 237 mg/dL High 74-99 [facility] Comment on above: Performed By: #### 2 4331-1 #### MYA DE LA CRUZ ([id number]) [facility] ([facility]) [address] [place] [address] 70560 Glucose [Mass/Vol] 222 mg/dL High 74 - 99 mg/dL [facility] Interpretation and review of laboratory results Abnormal [facility] Glucose [Mass/Vol] 222 mg/dL High 74-99 [facility] Comment on above: Performed By: #### 2 4331-1 #### MYA DE LA CRUZ ([id number]) [facility] ([facility]) [address] [place] [address] 73601 Glucose [Mass/Vol] 237 mg/dL High 74 - 99 mg/dL [facility] Interpretation and review of laboratory results Abnormal [facility] Glucose [Mass/Vol] 237 mg/dL High 74-99 [facility] Comment on above: Performed By: #### 2 4331-1 #### MYA DE LA CRUZ ([id number]) [facility] ([facility]) [address] [place] [address] 74968 Glucose [Mass/Vol] 232 mg/dL High 74 - 99 mg/dL [facility] Interpretation and review of laboratory results Abnormal [facility] Glucose [Mass/Vol] 232 mg/dL High 74-99 [facility] Comment on above: Performed By: #### 2 4331-1 #### MYA DE LA CRUZ ([id number]) [facility] ([facility]) [address] [place] [address] 83583 Glucose [Mass/Vol] 182 mg/dL High 74 - 99 mg/dL [facility] Interpretation and review of laboratory results Abnormal [facility] Glucose [Mass/Vol] 182 mg/dL High 74-99 [facility] Comment on above: Performed By: #### 2 4331-1 #### MYA DE LA CRUZ ([id number]) [facility] ([facility]) [address] [place] [address] 10646 Basic metabolic 2000 panelon 07-20-2025 Anion gap [Moles/Vol] 17 mmol/L 10 - 2 0 mmol/L [facility] Calcium [Mass/Vol] 9.0 mg/dL 8.6 - 10. 6 mg/dL [facility] Chloride [Moles/Vol] 103 mmol/L 98 - 10 7 mmol/L [facility] CO2 [Moles/Vol] 22 mmol/L 21 - 32 mmol/L [facility] Creatinine [Mass/Vol] 2.26 mg/dL High 0.50 - 1.30 mg/dL [facility] GFR/1.73 sq M.predicted among non-blacks MDRD (S/P/Bld) [Vol rate/Area] 28 mL/min/{1.73_m2} Low - PINF [facility] Glucose [Mass/Vol] 202 mg/dL High 74 - 99 mg/dL [facility] Interpretation and review of laboratory results Abnormal [facility] Potassium [Moles/Vol] 4.2 mmol/L 3.5 - 5.3 mmol/L [facility] Sodium [Moles/Vol] 138 mmol/L 136 - 145 mmol/L [facility] Urea nitrogen [Mass/Vol] 37 mg/dL High 6 - 23 mg/dL [facility] Anion gap [Moles/Vol] 17 mmol/L Normal 10-[address] [facility] Comment on above: Performed By: #### 2 4323-8 #### MYA DE LA CRUZ ([id number]) [facility] ([facility]) [facility] [place] [address] Calcium [Mass/Vol] 9.0 mg/dL Normal 8.6-10.6 [facility] Comment on above: Performed By: #### 2 4323-8 #### MYA DE LA CRUZ ([id number]) [facility] ([facility]) [address] [place] [address] 58346 Chloride [Moles/Vol] 103 mmol/L Normal 98-107 [facility] Comment on above: Performed By: #### 2 4323-8 #### MYA DE LA CRUZ ([id number]) [facility] ([facility]) [address] [place] [address] 13503 CO2 [Moles/Vol] 22 mmol/L Normal 21-32 [facility] Comment on above: Performed By: #### 2 4323-8 #### MYA DE LA CRUZ ([id number]) [facility] ([facility]) [address] [place] [address] 72444 Creatinine [Mass/Vol] 2.26 mg/dL High 0.50-1.30 [facility] Comment on above: Performed By: #### 2 4323-8 #### MYA DE LA CRUZ ([id number]) [facility] ([facility]) [address] [place] [address] 93560 Glomerular filtration rate 28 mL/min/1.73m*2 Low >60 [facility] Comment on above: Result Comment: Calc ulations of estimated GFR are performed using the 2020 CKD-EPI Study Refit equation without the race variable for the IDMS-Traceable creatinine methods. https://jasn.asnjournals.org/content/early/ASN.090179 8548 Performed By: #### 2 4323-8 #### MYA DE LA CRUZ ([id number]) [facility] ([facility]) [address] [place] [address] 00446 Glucose [Mass/Vol] 202 mg/dL High 74-99 [facility] Comment on above: Performed By: #### 2 4323-8 #### MYA DE LA CRUZ ([id number]) [facility] ([facility]) [address] [place] [address] Potassium [Moles/Vol] 4.2 mmol/L Normal 3.5-5.3 [facility] Comment on above: Performed By: #### 2 4323-8 #### MYA DE LA CRUZ ([id number]) [facility] ([facility]) [address] [place] [address] 38698 Sodium [Moles/Vol] 138 mmol/L Normal 136-145 [facility] Comment on above: Performed By: #### 2 4323-8 #### MYA DE LA CRUZ ([id number]) [facility] ([facility]) [address] [place] [address] 58426 Urea nitrogen [Mass/Vol] 37 mg/dL High 6-23 [facility] Comment on above: Performed By: #### 2 4323-8 #### MYA DE LA CRUZ ([id number]) [facility] ([facility]) [address] [place] [address] 13512 CBC W Auto Differential pane l (Bld)on 07-20-2025 Basophils (Bld) [#/Vol] 0.08 10*3/uL [facility] Basophils/100 WBC (Bld) 0.8 % 0.0 - 2.0 % [facility] Eosinophils (Bld) [#/Vol] 1.01 10*3/uL High [facility] Eosinophils/100 WBC (Bld) 10.6 % 0.0 - 6.0 % [facility] Erythrocyte distribution width (RBC) [Ratio] 14.0 % 11.5 - 14.5 % [facility] Hematocrit (Bld) [Volume fraction] 36.5 % Low 41.0 - 52.0 % [facility] Hemoglobin (Bld) [Mass/Vol] 11.5 g/dL Low 13.5 - 17.5 g/dL [facility] Immature granulocytes (Bld) [#/Vol] 0.08 10*3/uL [facility] Immature granulocytes/100 WBC (Bld) 0.8 % 0.0 - 0.9 % [facility] Interpretation and review of laboratory results Abnormal [facility] Lymphocytes (Bld) [#/Vol] 2.09 10*3/uL [facility] Lymphocytes/100 WBC (Bld) 21.8 % 13.0 - 44.0 % [facility] MCH (RBC) [Entitic mass] 30.1 pg 26.0 - 34.0 pg [facility] MCHC (RBC) [Mass/Vol] 31.5 g/dL Low 32.0 - 36.0 g/dL [facility] MCV (RBC) [Entitic vol] 96 fL 80 - 100 fL [facility] Monocytes (Bld) [#/Vol] 0.74 10*3/uL [facility] Monocytes/100 WBC (Bld) 7.7 % 2.0 - 10.0 % [facility] Neutrophils (Bld) [#/Vol] 5.57 10*3/uL High [facility] Neutrophils/100 WBC (Bld) 58.3 % 40.0 - 80.0 % [facility] Nucleated RBC/100 WBC (Bld) [Ratio] 0.0 % [facility] Platelets (Bld) [#/Vol] 209 10*3/uL [facility] RBC (Bld) [#/Vol] 3.82 10*6/uL Low [facility] WBC (Bld) [#/Vol] 9.6 10*3/uL [facility] Basophils (Bld) [#/Vol] 0.08 x10*3/uL Normal 0.00-0.10 [facility] Comment on above: Performed By: #### 2 4323-8 #### MYA DE LA CRUZ ([id number]) [facility] ([facility]) [address] [place] [address] 81764 Basophils/100 WBC (Bld) 0.8 % Normal 0.0-2.0 [facility] Comment on above: Performed By: #### 2 4323-8 #### MYA DE LA CRUZ ([id number]) [facility] ([facility]) [address] [place] [address] 96038 Eosinophils (Bld) [#/Vol] 1.01 x10*3/uL High 0.00-0.40 [facility] Comment on above: Performed By: #### 2 4323-8 #### MYA DE LA CRUZ ([id number]) [facility] ([facility]) [address] [place] [address] 68287 Eosinophils/100 WBC (Bld) 10.6 % Normal 0.0-6.0 [facility] Comment on above: Performed By: #### 2 3-8 #### MYA DE LA CRUZ ([id number]) [facility] ([facility]) [address] [place] [address] 76902 Erythrocyte distribution width (RBC) [Ratio] 14.0 % Normal 11.5-14.5 [facility] Comment on above: Performed By: #### 2 432-8 #### MYA DE LA CRUZ ([id number]) [facility] ([facility]) [address] [place] [address] 38805 Hematocrit (Bld) [Volume fraction] 36.5 % Low 41.0-52.0 [facility] Comment on above: Performed By: #### 2 432-8 #### MYA DE LA CRUZ ([id number]) [facility] ([facility]) [address] [place] [address] 38667 Hemoglobin (Bld) [Mass/Vol] 11.5 g/dL Low 13.5-17.5 [facility] Comment on above: Performed By: #### 2 4323-8 #### MYA DE LA CRUZ ([id number]) [facility] ([facility]) [address] [place] [address] 02316 Immature granulocytes (Bld) [#/Vol] 0.08 x10*3/uL Normal 0.00-0.50 [facility] Comment on above: Performed By: #### 2 4323-8 #### MYA DE LA CRUZ ([id number]) [facility] ([facility]) [address] [place] [address] 84704 Immature granulocytes/100 WBC (Bld) 0.8 % Normal 0.0-0.9 [facility] Comment on above: Result Comment: Eva ture Granulocyte Count (IG) includes promyelocytes, myelocytes and metamyelocytes but does not include bands. Percent differential counts (%) should be interpreted in the context of the absolute cell counts (cells/UL). Performed By: #### 2 4323-8 #### MYA DE LA CRUZ ([id number]) [facility] ([facility]) [address] [place] [address] 50118 Lymphocytes (Bld) [#/Vol] 2.09 x10*3/uL Normal 0.80-3.00 [facility] Comment on above: Performed By: #### 2 4323-8 #### MYA DE LA CRUZ ([id number]) [facility] ([facility]) [address] [place] [address] 30291 Lymphocytes/100 WBC (Bld) 21.8 % Normal 13.0-44.0 [facility] Comment on above: Performed By: #### 2 432-8 #### MYA DE LA CRUZ ([id number]) [facility] ([facility]) [address] [place] [address] 96883 MCH (RBC) [Entitic mass] 30.1 pg Normal 26.0-34.0 [facility] Comment on above: Performed By: #### 2 432-8 #### MYA DE LA CRUZ ([id number]) [facility] ([facility]) [address] [place] [address] 29387 MCHC (RBC) [Mass/Vol] 31.5 g/dL Low 32.0-36.0 [facility] Comment on above: Performed By: #### 2 4323-8 #### MYA DE LA CRUZ ([id number]) [facility] ([facility]) [address] [place] [address] 19730 MCV (RBC) [Entitic vol] 96 fL Normal 80-100 [facility] Comment on above: Performed By: #### 2 4323-8 #### MYA DE LA CRUZ ([id number]) [facility] ([facility]) [address] [place] [address] 90053 Monocytes (Bld) [#/Vol] 0.74 x10*3/uL Normal 0.05-0.80 [facility] Comment on above: Performed By: #### 2 4323-8 #### MYA DE LA CRUZ ([id number]) [facility] ([facility]) [address] [place] [address] 24869 Monocytes/100 WBC (Bld) 7.7 % Normal 2.0-10.0 [facility] Comment on above: Performed By: #### 2 4323-8 #### MYA DE LA CRUZ ([id number]) [facility] ([facility]) [address] [place] [address] 99875 Neutrophils (Bld) [#/Vol] 5.57 x10*3/uL High 1.60-5.50 [facility] Comment on above: Result Comment: Perc ent differential counts (%) should be interpreted in the context of the absolute cell counts (cells/uL). Performed By: #### 2 4323-8 #### MYA DE LA CRUZ ([id number]) [facility] ([facility]) [address] [place] [address] 40838 Neutrophils/100 WBC (Bld) 58.3 % Normal 40.0-80.0 [facility] Comment on above: Performed By: #### 2 4323-8 #### MYA DE LA CRUZ ([id number]) [facility] ([facility]) [address] [place] [address] 57897 Nucleated RBC/100 WBC (Bld) [Ratio] 0.0 /100 WBCs Normal 0.0-0.0 [facility] Comment on above: Performed By: #### 2 4323-8 #### MYA DE LA CRUZ ([id number]) [facility] ([facility]) [address] [place] [address] 36938 Platelets (Bld) [#/Vol] 209 x10*3/uL Normal 150-450 [facility] Comment on above: Performed By: #### 2 4323-8 #### MYA DE LA CRUZ ([id number]) [facility] ([facility]) [address] [place] [address] 45683 RBC (Bld) [#/Vol] 3.82 x10*6/uL Low 4.50-5.90 [facility] Comment on above: Performed By: #### 2 4323-8 #### MYA DE LA CRUZ ([id number]) [facility] ([facility]) [address] [place] [address] 16191 WBC (Bld) [#/Vol] 9.6 x10*3/uL Normal 4.4-11.3 [facility] Comment on above: Performed By: #### 2 4323-8 #### MYA DE LA CRUZ ([id number]) [facility] ([facility]) [address] [place] [address] 09253 Glucose Test strip manual (B ld) [Mass/Vol]on 07-20-2025 Glucose [Mass/Vol] 267 mg/dL High 74 - 99 mg/dL [facility] Interpretation and review of laboratory results Abnormal [facility] Glucose [Mass/Vol] 267 mg/dL High 74-99 [facility] Comment on above: Performed By: #### 2 4331-1 #### MYA DE LA CRUZ ([id number]) [facility] ([facility]) [address] [place] [address] 31917 Glucose [Mass/Vol] 169 mg/dL High 74 - 99 mg/dL [facility] Interpretation and review of laboratory results Abnormal [facility] Glucose [Mass/Vol] 169 mg/dL High 74-99 [facility] Comment on above: Performed By: #### 2 4331-1 #### MYA DE LA CRUZ ([id number]) [facility] ([facility]) [address] [place] [address] 79863 Glucose [Mass/Vol] 197 mg/dL High 74 - 99 mg/dL [facility] Interpretation and review of laboratory results Abnormal [facility] Glucose [Mass/Vol] 197 mg/dL High 74-99 [facility] Comment on above: Performed By: #### 2 4331-1 #### MYA DE LA CRUZ ([id number]) [facility] ([facility]) [address] [place] [address] 71833 Glucose [Mass/Vol] 261 mg/dL High 74 - 99 mg/dL [facility] Interpretation and review of laboratory results Abnormal [facility] Glucose [Mass/Vol] 261 mg/dL High 74-99 [facility] Comment on above: Performed By: #### 2 4331-1 #### MYA DE LA CRUZ ([id number]) [facility] ([facility]) [address] [place] [address] Basic metabolic 2000 panelon 07-19-2025 Anion gap [Moles/Vol] 13 mmol/L 10 - 2 0 mmol/L [facility] Calcium [Mass/Vol] 9.3 mg/dL 8.6 - 10. 6 mg/dL [facility] Chloride [Moles/Vol] 103 mmol/L 98 - 10 7 mmol/L [facility] CO2 [Moles/Vol] 25 mmol/L 21 - 32 mmol/L [facility] Creatinine [Mass/Vol] 2.24 mg/dL High 0.50 - 1.30 mg/dL [facility] GFR/1.73 sq M.predicted among non-blacks MDRD (S/P/Bld) [Vol rate/Area] 28 mL/min/{1.73_m2} Low - PINF [facility] Glucose [Mass/Vol] 213 mg/dL High 74 - 99 mg/dL [facility] Interpretation and review of laboratory results Abnormal [facility] Potassium [Moles/Vol] 4.4 mmol/L 3.5 - 5.3 mmol/L [facility] Sodium [Moles/Vol] 137 mmol/L 136 - 145 mmol/L [facility] Urea nitrogen [Mass/Vol] 39 mg/dL High 6 - 23 mg/dL [facility] Anion gap [Moles/Vol] 13 mmol/L Normal 10-20 [facility] Comment on above: Performed By: #### 2 4323-8 #### MYA DE LA CRUZ ([id number]) [facility] ([facility]) [address] [place] [address] Calcium [Mass/Vol] 9.3 mg/dL Normal 8.6-10.6 [facility] Comment on above: Performed By: #### 2 4323-8 #### MYA DE LA CRUZ ([id number]) [facility] ([facility]) [address] [place] [address] Chloride [Moles/Vol] 103 mmol/L Normal 98-107 [facility] Comment on above: Performed By: #### 2 4323-8 #### MYA DE LA CRUZ ([id number]) [facility] ([facility]) [address] [place] [address] CO2 [Moles/Vol] 25 mmol/L Normal 21-32 [facility] Comment on above: Performed By: #### 2 432-8 #### MYA DE LA CRUZ ([id number]) [facility] ([facility]) [address] [place] [address] 73336 Creatinine [Mass/Vol] 2.24 mg/dL High 0.50-1.30 [facility] Comment on above: Performed By: #### 2 4323-8 #### MYA DE LA CRUZ ([id number]) [facility] ([facility]) [address] [place] [address] 07975 Glomerular filtration rate 28 mL/min/1.73m*2 Low >60 [facility] Comment on above: Result Comment: Calc ulations of estimated GFR are performed using the 2020 CKD-EPI Study Refit equation without the race variable for the IDMS-Traceable creatinine methods. https://jasn.asnjournals.org/content//ASN.819033 2623 Performed By: #### 2 4323-8 #### MYA DE LA CRUZ ([id number]) [facility] ([facility]) [facility] [place] [address] Glucose [Mass/Vol] 213 mg/dL High 74-99 [facility] Comment on above: Performed By: #### 2 4323-8 #### MYA DE LA CRUZ ([id number]) [facility] ([facility]) [facility] [place] [address] Potassium [Moles/Vol] 4.4 mmol/L Normal 3.5-5.3 [facility] Comment on above: Performed By: #### 2 4323-8 #### MYA DE LA CRUZ ([id number]) [facility] ([facility]) [address] [place], [place] [id number] Sodium [Moles/Vol] 137 mmol/L Normal 136-145 [facility] Comment on above: Performed By: #### 2 4323-8 #### MYA DE LA CRUZ ([id number]) [facility] ([facility]) [address] [place], [place] [id number] Urea nitrogen [Mass/Vol] 39 mg/dL High - [facility] Comment on above: Performed By: #### 2 4323-8 #### MYA DE LA CRUZ ([id number]) [facility] ([facility]) [address] [place] [address] CBC W Auto Differential pane l (Bld)on 07-19-2025 Basophils (Bld) [#/Vol] 0.07 10*3/uL [facility] Basophils/100 WBC (Bld) 0.6 % 0.0 - 2.0 % [facility] Eosinophils (Bld) [#/Vol] 0.86 10*3/uL High [facility] Eosinophils/100 WBC (Bld) 7.9 % 0.0 - 6.0 % [facility] Erythrocyte distribution width (RBC) [Ratio] 14.3 % 11.5 - 14.5 % [facility] Hematocrit (Bld) [Volume fraction] 35.6 % Low 41.0 - 52.0 % [facility] Hemoglobin (Bld) [Mass/Vol] 11.4 g/dL Low 13.5 - 17.5 g/dL [facility] Immature granulocytes (Bld) [#/Vol] 0.08 10*3/uL [facility] Immature granulocytes/100 WBC (Bld) 0.7 % 0.0 - 0.9 % [facility] Interpretation and review of laboratory results Abnormal [facility] Lymphocytes (Bld) [#/Vol] 2.21 10*3/uL [facility] Lymphocytes/100 WBC (Bld) 20.2 % 13.0 - 44.0 % [facility] MCH (RBC) [Entitic mass] 30.7 pg 26.0 - 34.0 pg [facility] MCHC (RBC) [Mass/Vol] 32.0 g/dL 32.0 - 36.0 g/dL [facility] MCV (RBC) [Entitic vol] 96 fL 80 - 100 fL [facility] Monocytes (Bld) [#/Vol] 0.90 10*3/uL High [facility] Monocytes/100 WBC (Bld) 8.2 % 2.0 - 10.0 % [facility] Neutrophils (Bld) [#/Vol] 6.82 10*3/uL High [facility] Neutrophils/100 WBC (Bld) 62.4 % 40.0 - 80.0 % [facility] Nucleated RBC/100 WBC (Bld) [Ratio] 0.0 % [facility] Platelets (Bld) [#/Vol] 198 10*3/uL [facility] RBC (Bld) [#/Vol] 3.71 10*6/uL Low [facility] WBC (Bld) [#/Vol] 10.9 10*3/uL [facility] Basophils (Bld) [#/Vol] 0.07 x10*3/uL Normal 0.00-0.10 [facility] Comment on above: Performed By: #### 2 4323-8 #### MYA DE LA CRUZ ([id number]) [facility] ([facility]) [address] [place] [address] 32338 Basophils/100 WBC (Bld) 0.6 % Normal 0.0-2.0 [facility] Comment on above: Performed By: #### 2 4323-8 #### MYA DE LA CRUZ ([id number]) [facility] ([facility]) [address] [place] [address] 36527 Eosinophils (Bld) [#/Vol] 0.86 x10*3/uL High 0.00-0.40 [facility] Comment on above: Performed By: #### 2 4323-8 #### MYA DE LA CRUZ ([id number]) [facility] ([facility]) [address] [place] [address] 33977 Eosinophils/100 WBC (Bld) 7.9 % Normal 0.0-6.0 [facility] Comment on above: Performed By: #### 2 4323-8 #### MYA DE LA CRUZ ([id number]) [facility] ([facility]) [address] [place] [address] 74444 Erythrocyte distribution width (RBC) [Ratio] 14.3 % Normal 11.5-14.5 [facility] Comment on above: Performed By: #### 2 4323-8 #### MYA DE LA CRUZ ([id number]) [facility] ([facility]) [address] [place] [address] 88207 Hematocrit (Bld) [Volume fraction] 35.6 % Low 41.0-52.0 [facility] Comment on above: Performed By: #### 2 4323-8 #### MYA DE LA CRUZ ([id number]) [facility] ([facility]) [address] [place] [address] 66048 Hemoglobin (Bld) [Mass/Vol] 11.4 g/dL Low 13.5-17.5 [facility] Comment on above: Performed By: #### 2 4323-8 #### MYA DE LA CRUZ ([id number]) [facility] ([facility]) [address] [place] [address] 30322 Immature granulocytes (Bld) [#/Vol] 0.08 x10*3/uL Normal 0.00-0.50 [facility] Comment on above: Performed By: #### 2 4323-8 #### MYA DE LA CRUZ ([id number]) [facility] ([facility]) [address] [place] [address] 79930 Immature granulocytes/100 WBC (Bld) 0.7 % Normal 0.0-0.9 [facility] Comment on above: Result Comment: Eva ture Granulocyte Count (IG) includes promyelocytes, myelocytes and metamyelocytes but does not include bands. Percent differential counts (%) should be interpreted in the context of the absolute cell counts (cells/UL). Performed By: #### 2 4323-8 #### MYA DE LA CRUZ ([id number]) [facility] ([facility]) [address] [place] [address] 62223 Lymphocytes (Bld) [#/Vol] 2.21 x10*3/uL Normal 0.80-3.00 [facility] Comment on above: Performed By: #### 2 4323-8 #### MYA DE LA CRUZ ([id number]) [facility] ([facility]) [address] [place] [address] 68390 Lymphocytes/100 WBC (Bld) 20.2 % Normal 13.0-44.0 [facility] Comment on above: Performed By: #### 2 4323-8 #### MYA DE LA CRUZ ([id number]) [facility] ([facility]) [address] [place] [address] 20646 MCH (RBC) [Entitic mass] 30.7 pg Normal 26.0-34.0 [facility] Comment on above: Performed By: #### 2 432-8 #### MYA DE LA CRUZ ([id number]) [facility] ([facility]) [address] [place] [address] 33965 MCHC (RBC) [Mass/Vol] 32.0 g/dL Normal 32.0-36.0 [facility] Comment on above: Performed By: #### 2 4323-8 #### MYA DE LA CRUZ ([id number]) [facility] ([facility]) [address] [place] [address] 91366 MCV (RBC) [Entitic vol] 96 fL Normal 80-100 [facility] Comment on above: Performed By: #### 2 4323-8 #### MYA DE LA CRUZ ([id number]) [facility] ([facility]) [address] [place] [address] 35893 Monocytes (Bld) [#/Vol] 0.90 x10*3/uL High 0.05-0.80 [facility] Comment on above: Performed By: #### 2 4323-8 #### MYA DE LA CRUZ ([id number]) [facility] ([facility]) [address] [place] [address] 14334 Monocytes/100 WBC (Bld) 8.2 % Normal 2.0-10.0 [facility] Comment on above: Performed By: #### 2 4323-8 #### MYA DE LA CRUZ ([id number]) [facility] ([facility]) [address] [place] [address] 06934 Neutrophils (Bld) [#/Vol] 6.82 x10*3/uL High 1.60-5.50 [facility] Comment on above: Result Comment: Perc ent differential counts (%) should be interpreted in the context of the absolute cell counts (cells/uL). Performed By: #### 2 432-8 #### MYA DE LA CRUZ ([id number]) [facility] ([facility]) [address] [place] [address] 26963 Neutrophils/100 WBC (Bld) 62.4 % Normal 40.0-80.0 [facility] Comment on above: Performed By: #### 2 432-8 #### MYA DE LA CRUZ ([id number]) [facility] ([facility]) [address] [place] [address] 61383 Nucleated RBC/100 WBC (Bld) [Ratio] 0.0 /100 WBCs Normal 0.0-0.0 [facility] Comment on above: Performed By: #### 2 432-8 #### MYA DE LA CRUZ ([id number]) [facility] ([facility]) [address] [place] [address] 16634 Platelets (Bld) [#/Vol] 198 x10*3/uL Normal 150-450 [facility] Comment on above: Performed By: #### 2 4323-8 #### MYA DE LA CRUZ ([id number]) [facility] ([facility]) [address] [place] [address] 92125 RBC (Bld) [#/Vol] 3.71 x10*6/uL Low 4.50-5.90 [facility] Comment on above: Performed By: #### 2 4323-8 #### MYA DE LA CRUZ ([id number]) [facility]) [address] [place] [address] 02742 WBC (Bld) [#/Vol] 10.9 x10*3/uL Normal 4.4-11.3 [facility] Comment on above: Performed By: #### 2 4323-8 #### MYA DE LA CRUZ ([id number]) [facility]) [address] [place] [address] 67651 Glucose Test strip manual (B ld) [Mass/Vol]on 07-19-2025 Glucose [Mass/Vol] 265 mg/dL High 74 - 99 mg/dL [facility] Interpretation and review of laboratory results Abnormal [facility] Glucose [Mass/Vol] 265 mg/dL High 74-99 [facility] Comment on above: Performed By: #### 2 4323-8 #### MYA DE LA CRUZ ([id number]) [facility]) [address] [place] [address] 99255 Glucose [Mass/Vol] 258 mg/dL High 74 - 99 mg/dL [facility] Interpretation and review of laboratory results Abnormal [facility] Glucose [Mass/Vol] 258 mg/dL High 74-99 [facility] Comment on above: Performed By: #### 2 4323-8 #### MYA DE LA CRUZ ([id number]) [facility]) [address] [place] [address] 95074 Glucose [Mass/Vol] 219 mg/dL High 74 - 99 mg/dL [facility] Interpretation and review of laboratory results Abnormal [facility] Glucose [Mass/Vol] 219 mg/dL High 74-99 [facility] Comment on above: Performed By: #### 2 4323-8 #### MYA DE LA CRUZ ([id number]) [facility]) [address] [place] [address] 25075 Basic metabolic 2000 panelon 07-18-2025 Anion gap [Moles/Vol] 11 mmol/L 10 - 2 0 mmol/L [facility] Calcium [Mass/Vol] 9.2 mg/dL 8.6 - 10. 6 mg/dL [facility] Chloride [Moles/Vol] 103 mmol/L 98 - 10 7 mmol/L [facility] CO2 [Moles/Vol] 28 mmol/L 21 - 32 mmol/L [facility] Creatinine [Mass/Vol] 2.52 mg/dL High 0.50 - 1.30 mg/dL [facility] GFR/1.73 sq M.predicted among non-blacks MDRD (S/P/Bld) [Vol rate/Area] 24 mL/min/{1.73_m2} Low - PINF [facility] Glucose [Mass/Vol] 235 mg/dL High 74 - 99 mg/dL [facility] Interpretation and review of laboratory results Abnormal [facility] Potassium [Moles/Vol] 4.0 mmol/L 3.5 - 5.3 mmol/L [facility] Sodium [Moles/Vol] 138 mmol/L 136 - 145 mmol/L [facility] Urea nitrogen [Mass/Vol] 36 mg/dL High 6 - 23 mg/dL [facility] Anion gap [Moles/Vol] 11 mmol/L Normal 10-20 [facility] Comment on above: Performed By: #### 3 084-1 #### MYA DE LA CRUZ ([id number]) [facility]) [address] [place] [address] Calcium [Mass/Vol] 9.2 mg/dL Normal 8.6-10.6 [facility] Comment on above: Performed By: #### 3 084-1 #### MYA DE LA CRUZ ([id number]) [facility]) [address] [place] [address] Chloride [Moles/Vol] 103 mmol/L Normal 98-107 [facility] Comment on above: Performed By: #### 3 084-1 #### MYA DE LA CRUZ ([id number]) [facility]) [address] [place] [address] CO2 [Moles/Vol] 28 mmol/L Normal 21-32 [facility] Comment on above: Performed By: #### 3 084-1 #### MYA DE LA CRUZ ([id number]) [facility]) [address] [place] [address] Creatinine [Mass/Vol] 2.52 mg/dL High 0.50-1.30 [facility] Comment on above: Performed By: #### 3 084-1 #### MYA DE LA CRUZ ([id number]) [facility]) [address] [place] [address] 22491 Glomerular filtration rate 24 mL/min/1.73m*2 Low >60 [facility] Comment on above: Result Comment: Calc ulations of estimated GFR are performed using the 2020 CKD-EPI Study Refit equation without the race variable for the IDMS-Traceable creatinine methods. https://jasn.asnjournals.org/content/early//ASN.828232 6049 Performed By: #### 3 084-1 #### MYA DE LA CRUZ ([id number]) [facility] ([facility]) [address] [place] [address] 99207 Glucose [Mass/Vol] 235 mg/dL High 74-99 [facility] Comment on above: Performed By: #### 3 084-1 #### MYA DE LA CRUZ ([id number]) [facility]) [address] [place] [address] 35611 Potassium [Moles/Vol] 4.0 mmol/L Normal 3.5-5.3 [facility] Comment on above: Performed By: #### 3 084-1 #### MYA DE LA CRUZ ([id number]) [facility]) [address] [place] [address] 19183 Sodium [Moles/Vol] 138 mmol/L Normal 136-145 [facility] Comment on above: Performed By: #### 3 084-1 #### MYA DE LA CRUZ ([id number]) [facility]) [address] [place] [address] 29636 Urea nitrogen [Mass/Vol] 36 mg/dL High 6-23 [facility] Comment on above: Performed By: #### 3 084-1 #### MYA DE LA CRUZ ([id number]) [facility]) [address] [place] [address] 29545 CBC W Auto Differential pane l (Bld)on 07-18-2025 Basophils (Bld) [#/Vol] 0.06 10*3/uL [facility] Basophils/100 WBC (Bld) 0.5 % 0.0 - 2.0 % [facility] Eosinophils (Bld) [#/Vol] 0.41 10*3/uL High [facility] Eosinophils/100 WBC (Bld) 3.5 % 0.0 - 6.0 % [facility] Erythrocyte distribution width (RBC) [Ratio] 14.2 % 11.5 - 14.5 % [facility] Hematocrit (Bld) [Volume fraction] 34.4 % Low 41.0 - 52.0 % [facility] Hemoglobin (Bld) [Mass/Vol] 11.4 g/dL Low 13.5 - 17.5 g/dL [facility] Immature granulocytes (Bld) [#/Vol] 0.06 10*3/uL [facility] Immature granulocytes/100 WBC (Bld) 0.5 % 0.0 - 0.9 % [facility] Interpretation and review of laboratory results Abnormal [facility] Lymphocytes (Bld) [#/Vol] 1.64 10*3/uL [facility] Lymphocytes/100 WBC (Bld) 14.1 % 13.0 - 44.0 % [facility] MCH (RBC) [Entitic mass] 29.8 pg 26.0 - 34.0 pg [facility] MCHC (RBC) [Mass/Vol] 33.1 g/dL 32.0 - 36.0 g/dL [facility] MCV (RBC) [Entitic vol] 90 fL 80 - 100 fL [facility] Monocytes (Bld) [#/Vol] 0.82 10*3/uL High [facility] Monocytes/100 WBC (Bld) 7.0 % 2.0 - 10.0 % [facility] Neutrophils (Bld) [#/Vol] 8.68 10*3/uL High [facility] Neutrophils/100 WBC (Bld) 74.4 % 40.0 - 80.0 % [facility] Nucleated RBC/100 WBC (Bld) [Ratio] 0.0 % [facility] Platelets (Bld) [#/Vol] 196 10*3/uL [facility] RBC (Bld) [#/Vol] 3.82 10*6/uL Low [facility] WBC (Bld) [#/Vol] 11.7 10*3/uL High [facility] Basophils (Bld) [#/Vol] 0.06 x10*3/uL Normal 0.00-0.10 [facility] Comment on above: Performed By: #### 3 084-1 #### MYA DE LA CRUZ ([id number]) [facility]) [address] [place] [address] 38876 Basophils/100 WBC (Bld) 0.5 % Normal 0.0-2.0 [facility] Comment on above: Performed By: #### 3 084-1 #### MYA DE LA CRUZ ([id number]) [facility]) [address] [place] [address] 47812 Eosinophils (Bld) [#/Vol] 0.41 x10*3/uL High 0.00-0.40 [facility] Comment on above: Performed By: #### 3 084-1 #### MYA DE LA CRUZ ([id number]) [facility]) [address] [place] [address] 00491 Eosinophils/100 WBC (Bld) 3.5 % Normal 0.0-6.0 [facility] Comment on above: Performed By: #### 3 084-1 #### MYA DE LA CRUZ ([id number]) [facility]) [address] [place] [address] 63616 Erythrocyte distribution width (RBC) [Ratio] 14.2 % Normal 11.5-14.5 [facility] Comment on above: Performed By: #### 3 084-1 #### MYA DE LA CRUZ ([id number]) [facility]) [address] [place] [address] 85800 Hematocrit (Bld) [Volume fraction] 34.4 % Low 41.0-52.0 [facility] Comment on above: Performed By: #### 3 084-1 #### MYA DE LA CRUZ ([id number]) [facility]) [address] [place] [address] 49250 Hemoglobin (Bld) [Mass/Vol] 11.4 g/dL Low 13.5-17.5 [facility] Comment on above: Performed By: #### 3 084-1 #### MYA DE LA CRUZ ([id number]) [facility]) [address] [place] [address] 52735 Immature granulocytes (Bld) [#/Vol] 0.06 x10*3/uL Normal 0.00-0.50 [facility] Comment on above: Performed By: #### 3 084-1 #### MYA DE LA CRUZ ([id number]) [facility]) [address] [place] [address] 53057 Immature granulocytes/100 WBC (Bld) 0.5 % Normal 0.0-0.9 [facility] Comment on above: Result Comment: Eva ture Granulocyte Count (IG) includes promyelocytes, myelocytes and metamyelocytes but does not include bands. Percent differential counts (%) should be interpreted in the context of the absolute cell counts (cells/UL). Performed By: #### 3 084-1 #### MYA DE LA CRUZ ([id number]) [facility]) [address] [place] [address] 98956 Lymphocytes (Bld) [#/Vol] 1.64 x10*3/uL Normal 0.80-3.00 [facility] Comment on above: Performed By: #### 3 084-1 #### MYA DE LA CRUZ ([id number]) [facility]) [address] [place] [address] 91700 Lymphocytes/100 WBC (Bld) 14.1 % Normal 13.0-44.0 [facility] Comment on above: Performed By: #### 3 084-1 #### MYA DE LA CRUZ ([id number]) [facility]) [address] [place] [address] 98859 MCH (RBC) [Entitic mass] 29.8 pg Normal 26.0-34.0 [facility] Comment on above: Performed By: #### 3 084-1 #### MYA DE LA CRUZ ([id number]) [facility]) [address] [place] [address] 98779 MCHC (RBC) [Mass/Vol] 33.1 g/dL Normal 32.0-36.0 [facility] Comment on above: Performed By: #### 3 084-1 #### MYA DE LA CRUZ ([id number]) [facility]) [address] [place] [address] 32259 MCV (RBC) [Entitic vol] 90 fL Normal 80-100 [facility] Comment on above: Performed By: #### 3 084-1 #### MYA DE LA CRUZ ([id number]) [facility]) [address] [place] [address] 60069 Monocytes (Bld) [#/Vol] 0.82 x10*3/uL High 0.05-0.80 [facility] Comment on above: Performed By: #### 3 084-1 #### MYA DE LA CRUZ ([id number]) [facility]) [address] [place] [address] 73109 Monocytes/100 WBC (Bld) 7.0 % Normal 2.0-10.0 [facility] Comment on above: Performed By: #### 3 084-1 #### MYA DE LA CRUZ ([id number]) [facility]) [address] [place] [address] 52586 Neutrophils (Bld) [#/Vol] 8.68 x10*3/uL High 1.60-5.50 [facility] Comment on above: Result Comment: Perc ent differential counts (%) should be interpreted in the context of the absolute cell counts (cells/uL). Performed By: #### 3 084-1 #### MYA DE LA CRUZ ([id number]) [facility]) [address] [place] [address] 18154 Neutrophils/100 WBC (Bld) 74.4 % Normal 40.0-80.0 [facility] Comment on above: Performed By: #### 3 084-1 #### MYA DE LA CRUZ ([id number]) [facility]) [address] [place] [address] 38830 Nucleated RBC/100 WBC (Bld) [Ratio] 0.0 /100 WBCs Normal 0.0-0.0 [facility] Comment on above: Performed By: #### 3 084-1 #### MYA DE LA CRUZ ([id number]) [facility]) [address] [place] [address] 22549 Platelets (Bld) [#/Vol] 196 x10*3/uL Normal 150-450 [facility] Comment on above: Performed By: #### 3 084-1 #### MYA DE LA CRUZ ([id number]) [facility]) [address] [place] [address] 04014 RBC (Bld) [#/Vol] 3.82 x10*6/uL Low 4.50-5.90 [facility] Comment on above: Performed By: #### 3 084-1 #### MYA DE LA CRUZ ([id number]) [facility]) [address] [place] [address] 86714 WBC (Bld) [#/Vol] 11.7 x10*3/uL High 4.4-11.3 [facility] Comment on above: Performed By: #### 3 084-1 #### MYA DE LA CRUZ ([id number]) [facility]) [address] [place] [address] 61672 ECG 12 lead dailyon 1025-20 25 Atrial Rate 70 BPM [facility] Work Phone: P Goltry -51 degrees [facility] Work Phone: P Offset 148 ms [facility] Work Phone: P Onset 84 [facility] Work Phone: TX Interval 208 [facility] Work Phone: Q Onset 204 [facility] Work Phone: QRS Count 11 beats [facility] Work Phone: QRS Duration 148 ms [facility] Work Phone: QT Interval 474 ms [facility] Work Phone: QTC Calculation(Bazett) 511 ms [facility] Work Phone: QTC Fredericia 499 ms [facility] Work Phone: R Goltry 6 degrees [facility] Work Phone: T Goltry 162 degrees [facility] Work Phone: T Offset 441 ms [facility] Work Phone: Ventricular Rate 70 BPM [facility] Work Phone: [facility] Work Phone: [facility] Work Phone: [facility] Work Phone: ECG 12 lead dailyOrdered By: Adriana Flores on 07-18-2025 Atrial Rate 70 BPM [facility] Work Phone: P Goltry 96 degrees [facility] Work Phone: P Offset 117 ms [facility] Work Phone: P Onset 54 ms [facility] Work Phone: [place] Interval 296 ms [facility] Work Phone: Q Onset 202 ms [facility] Work Phone: QRS Count 12 beats [facility] Work Phone: QRS Duration 158 ms [facility] Work Phone: QT Interval 502 ms [facility] Work Phone: QTC Calculation(Bazett) 542 ms [facility] Work Phone: QTC Fredericia 528 [facility] Work Phone: R Goltry 20 degrees [facility] Work Phone: T Goltry 171 degrees [facility] Work Phone: T Offset 453 ms [facility] Work Phone: Ventricular Rate 70 BPM [facility] Work Phone: [facility] Work Phone: Glucose Test strip manual (B ld) [Mass/Vol]on 07-18-2025 Glucose [Mass/Vol] 326 mg/dL High 74 - 99 mg/dL [facility] Interpretation and review of laboratory results Abnormal [facility] Glucose [Mass/Vol] 326 mg/dL High 74-99 [facility] Comment on above: Performed By: #### 2 4323-8 #### MYA DE LA CRUZ ([id number]) [facility]) [address] [place] [address] 23949 Glucose [Mass/Vol] 303 mg/dL High 74 - 99 mg/dL [facility] Interpretation and review of laboratory results Abnormal [facility] Glucose [Mass/Vol] 303 mg/dL High 74-99 [facility] Comment on above: Performed By: #### 2 4323-8 #### MYA DE LA CRUZ ([id number]) [facility]) [address] [place] [address] 51711 Glucose [Mass/Vol] 205 mg/dL High 74 - 99 mg/dL [facility] Interpretation and review of laboratory results Abnormal [facility] Glucose [Mass/Vol] 205 mg/dL High 74-99 [facility] Comment on above: Performed By: #### 2 4323-8 #### MYA DE LA CRUZ ([id number]) [facility]) [address] [place] [address] 65907 Glucose [Mass/Vol] 262 mg/dL High 74 - 99 mg/dL [facility] Interpretation and review of laboratory results Abnormal [facility] Glucose [Mass/Vol] 262 mg/dL High 74-99 [facility] Comment on above: Performed By: #### 3 084-1 #### MYA DE LA CRUZ ([id number]) [facility]) [facility] [facility] [place] [address] Basic metabolic 2000 panelon 07-17-2025 Anion gap [Moles/Vol] 15 mmol/L 10 - 2 0 mmol/L [facility] Calcium [Mass/Vol] 9.1 mg/dL 8.6 - 10. 6 mg/dL [facility] Chloride [Moles/Vol] 104 mmol/L 98 - 10 7 mmol/L [facility] CO2 [Moles/Vol] 24 mmol/L 21 - 32 mmol/L [facility] Creatinine [Mass/Vol] 2.53 mg/dL High 0.50 - 1.30 mg/dL [facility] GFR/1.73 sq M.predicted among non-blacks MDRD (S/P/Bld) [Vol rate/Area] 24 mL/min/{1.73_m2} Low - PINF [facility] Glucose [Mass/Vol] 194 mg/dL High 74 - 99 mg/dL [facility] Interpretation and review of laboratory results Abnormal [facility] Potassium [Moles/Vol] 4.4 mmol/L 3.5 - 5.3 mmol/L [facility] Sodium [Moles/Vol] 139 mmol/L 136 - 145 mmol/L [facility] Urea nitrogen [Mass/Vol] 33 mg/dL High 6 - 23 mg/dL [facility] Anion gap [Moles/Vol] 15 mmol/L Normal 10-20 [facility] Comment on above: Performed By: #### 3 084-1 #### MYA DE LA CRUZ ([id number]) [facility]) [facility] [place] [id number] Calcium [Mass/Vol] 9.1 mg/dL Normal 8.6-10.6 [facility] Comment on above: Performed By: #### 3 084-1 #### MYA DE LA CRUZ ([id number]) [facility]) [address] [place] [address] Chloride [Moles/Vol] 104 mmol/L Normal 98-107 [facility] Comment on above: Performed By: #### 3 084-1 #### MYA DE LA CRUZ ([id number]) [facility]) [address] [place] [address] CO2 [Moles/Vol] 24 mmol/L Normal 21-32 [facility] Comment on above: Performed By: #### 3 084-1 #### MYA DE LA CRUZ ([id number]) [facility]) [address] [place] [address] 48235 Creatinine [Mass/Vol] 2.53 mg/dL High 0.50-1.30 [facility] Comment on above: Performed By: #### 3 084-1 #### MYA DE LA CRUZ ([id number]) [facility] ([facility]) [address] [place] [address] 92966 Glomerular filtration rate 24 mL/min/1.73m*2 Low >60 [facility] Comment on above: Result Comment: Calc ulations of estimated GFR are performed using the 2020 CKD-EPI Study Refit equation without the race variable for the IDMS-Traceable creatinine methods. https://jasn.asnjournals.org/content/early/ASN.534051 2057 Performed By: #### 3 084-1 #### MYA DE LA CRUZ ([id number]) [facility] ([facility]) [address] [place] [address] 15326 Glucose [Mass/Vol] 194 mg/dL High 74-99 [facility] Comment on above: Performed By: #### 3 084-1 #### MYA DE LA CRUZ ([id number]) [facility]) [address] [place] [address] 20959 Potassium [Moles/Vol] 4.4 mmol/L Normal 3.5-5.3 [facility] Comment on above: Performed By: #### 3 084-1 #### MYA DE LA CRUZ ([id number]) [facility]) [address] [place] [address] Sodium [Moles/Vol] 139 mmol/L Normal 136-145 [facility] Comment on above: Performed By: #### 3 084-1 #### MYA DE LA CRUZ ([id number]) [facility]) [facility] [place] [address] Urea nitrogen [Mass/Vol] 33 mg/dL High - [facility] Comment on above: Performed By: #### 3 084-1 #### MYA DE LA CRUZ ([id number]) [facility]) [address] [place] [address] 21158 CBC W Auto Differential pane l (Bld)on 07-17-2025 Basophils (Bld) [#/Vol] 0.06 10*3/uL [facility] Basophils/100 WBC (Bld) 0.6 % 0.0 - 2.0 % [facility] Eosinophils (Bld) [#/Vol] 0.53 10*3/uL High [facility] Eosinophils/100 WBC (Bld) 5.7 % 0.0 - 6.0 % [facility] Erythrocyte distribution width (RBC) [Ratio] 14.3 % 11.5 - 14.5 % [facility] Hematocrit (Bld) [Volume fraction] 37.5 % Low 41.0 - 52.0 % [facility] Hemoglobin (Bld) [Mass/Vol] 12.1 g/dL Low 13.5 - 17.5 g/dL [facility] Immature granulocytes (Bld) [#/Vol] 0.05 10*3/uL [facility] Immature granulocytes/100 WBC (Bld) 0.5 % 0.0 - 0.9 % [facility] Interpretation and review of laboratory results Abnormal [facility] Lymphocytes (Bld) [#/Vol] 1.26 10*3/uL [facility] Lymphocytes/100 WBC (Bld) 13.5 % 13.0 - 44.0 % [facility] MCH (RBC) [Entitic mass] 30.6 pg 26.0 - 34.0 pg [facility] MCHC (RBC) [Mass/Vol] 32.3 g/dL 32.0 - 36.0 g/dL [facility] MCV (RBC) [Entitic vol] 95 fL 80 - 100 fL [facility] Monocytes (Bld) [#/Vol] 0.78 10*3/uL [facility] Monocytes/100 WBC (Bld) 8.4 % 2.0 - 10.0 % [facility] Neutrophils (Bld) [#/Vol] 6.66 10*3/uL High [facility] Neutrophils/100 WBC (Bld) 71.3 % 40.0 - 80.0 % [facility] Nucleated RBC/100 WBC (Bld) [Ratio] 0.0 % [facility] Platelets (Bld) [#/Vol] 170 10*3/uL [facility] RBC (Bld) [#/Vol] 3.95 10*6/uL Low [facility] WBC (Bld) [#/Vol] 9.3 10*3/uL [facility] Basophils (Bld) [#/Vol] 0.06 x10*3/uL Normal 0.00-0.10 [facility] Comment on above: Performed By: #### 3 084-1 #### MYA DE LA CRUZ ([id number]) [facility]) [address] [place] [address] 25377 Basophils/100 WBC (Bld) 0.6 % Normal 0.0-2.0 [facility] Comment on above: Performed By: #### 3 084-1 #### MYA DE LA CRUZ ([id number]) [facility]) [address] [place] [address] 48531 Eosinophils (Bld) [#/Vol] 0.53 x10*3/uL High 0.00-0.40 [facility] Comment on above: Performed By: #### 3 084-1 #### MYA DE LA CRUZ ([id number]) [facility]) [address] [place] [address] 90313 Eosinophils/100 WBC (Bld) 5.7 % Normal 0.0-6.0 [facility] Comment on above: Performed By: #### 3 084-1 #### MYA DE LA CRUZ ([id number]) [facility]) [address] [place] [address] Erythrocyte distribution width (RBC) [Ratio] 14.3 % Normal 11.5-14.5 [facility] Comment on above: Performed By: #### 3 084-1 #### MYA DE LA CRUZ ([id number]) [facility]) [address] [place] [address] Hematocrit (Bld) [Volume fraction] 37.5 % Low 41.0-52.0 [facility] Comment on above: Performed By: #### 3 084-1 #### MYA DE LA CRUZ ([id number]) [facility]) [address] [place] [address] Hemoglobin (Bld) [Mass/Vol] 12.1 g/dL Low 13.5-17.5 [facility] Comment on above: Performed By: #### 3 084-1 #### MYA DE LA CRUZ ([id number]) [facility]) [address] [place], [place] [address] Immature granulocytes (Bld) [#/Vol] 0.05 x10*3/uL Normal 0.00-0.50 [facility] Comment on above: Performed By: #### 3 084-1 #### MYA DE LA CRUZ ([id number]) [facility]) [address] [place], [place] [address] Immature granulocytes/100 WBC (Bld) 0.5 % Normal 0.0-0.9 [facility] Comment on above: Result Comment: Eva ture Granulocyte Count (IG) includes promyelocytes, myelocytes and metamyelocytes but does not include bands. Percent differential counts (%) should be interpreted in the context of the absolute cell counts (cells/UL). Performed By: #### 3 084-1 #### MYA DE LA CRUZ ([id number]) [facility]) [address] [place] [address] Lymphocytes (Bld) [#/Vol] 1.26 x10*3/uL Normal 0.80-3.00 [facility] Comment on above: Performed By: #### 3 084-1 #### MYA DE LA CRUZ ([id number]) [facility]) [address] [place] [address] 11438 Lymphocytes/100 WBC (Bld) 13.5 % Normal 13.0-44.0 [facility] Comment on above: Performed By: #### 3 084-1 #### MYA DE LA CRUZ ([id number]) [facility]) [address] [place] [address] 83004 MCH (RBC) [Entitic mass] 30.6 pg Normal 26.0-34.0 [facility] Comment on above: Performed By: #### 3 084-1 #### MYA DE LA CRUZ ([id number]) [facility]) [address] [place] [address] 57658 MCHC (RBC) [Mass/Vol] 32.3 g/dL Normal 32.0-36.0 [facility] Comment on above: Performed By: #### 3 084-1 #### MYA DE LA CRUZ ([id number]) [facility]) [address] [place] [address] 41219 MCV (RBC) [Entitic vol] 95 fL Normal 80-100 [facility] Comment on above: Performed By: #### 3 084-1 #### MYA DE LA CRUZ ([id number]) [facility]) [address] [place] [address] 70074 Monocytes (Bld) [#/Vol] 0.78 x10*3/uL Normal 0.05-0.80 [facility] Comment on above: Performed By: #### 3 084-1 #### MYA DE LA CRUZ ([id number]) [facility]) [address] [place] [address] 11768 Monocytes/100 WBC (Bld) 8.4 % Normal 2.0-10.0 [facility] Comment on above: Performed By: #### 3 084-1 #### MYA DE LA CRUZ ([id number]) [facility]) [address] [place] [address] 80009 Neutrophils (Bld) [#/Vol] 6.66 x10*3/uL High 1.60-5.50 [facility] Comment on above: Result Comment: Perc ent differential counts (%) should be interpreted in the context of the absolute cell counts (cells/uL). Performed By: #### 3 084-1 #### MYA DE LA CRUZ ([id number]) [facility]) [address] [place] [address] 00608 Neutrophils/100 WBC (Bld) 71.3 % Normal 40.0-80.0 [facility] Comment on above: Performed By: #### 3 084-1 #### MYA DE LA CRUZ ([id number]) [facility]) [address] [place] [address] 68877 Nucleated RBC/100 WBC (Bld) [Ratio] 0.0 /100 WBCs Normal 0.0-0.0 [facility] Comment on above: Performed By: #### 3 084-1 #### MYA DE LA CRUZ ([id number]) [facility]) [address] [place] [address] 43931 Platelets (Bld) [#/Vol] 170 x10*3/uL Normal 150-450 [facility] Comment on above: Performed By: #### 3 084-1 #### MYA DE LA CRUZ ([id number]) [facility]) [address] [place] [address] 77341 RBC (Bld) [#/Vol] 3.95 x10*6/uL Low 4.50-5.90 [facility] Comment on above: Performed By: #### 3 084-1 #### MYA DE LA CRUZ ([id number]) [facility]) [address] [place] [address] 34294 WBC (Bld) [#/Vol] 9.3 x10*3/uL Normal 4.4-11.3 [facility] Comment on above: Performed By: #### 3 084-1 #### MYA DE LA CRUZ ([id number]) [facility]) [address] [place] [address] 51843 Glucose Test strip manual (B ld) [Mass/Vol]on 07-17-2025 Glucose [Mass/Vol] 363 mg/dL High 74 - 99 mg/dL [facility] Interpretation and review of laboratory results Abnormal [facility] Glucose [Mass/Vol] 278 mg/dL High 74 - 99 mg/dL [facility] Interpretation and review of laboratory results Abnormal [facility] Glucose [Mass/Vol] 363 mg/dL High 74-99 [facility] Comment on above: Performed By: #### 3 084-1 #### MYA DE LA CRUZ ([id number]) [facility]) [address] [place] [address] 39907 Glucose [Mass/Vol] 278 mg/dL High 74-99 [facility] Comment on above: Performed By: #### 3 084-1 #### MYA DE LA CRUZ ([id number]) [facility]) [address] [place] [address] 18151 Glucose [Mass/Vol] 276 mg/dL High 74 - 99 mg/dL [facility] Interpretation and review of laboratory results Abnormal [facility] Glucose [Mass/Vol] 276 mg/dL High 74-99 [facility] Comment on above: Performed By: #### 3 084-1 #### MYA DE LA CRUZ ([id number]) [facility]) [address] [place] [address] 03175 Glucose [Mass/Vol] 225 mg/dL High 74 - 99 mg/dL [facility] Interpretation and review of laboratory results Abnormal [facility] Glucose [Mass/Vol] 225 mg/dL High 74-99 [facility] Comment on above: Performed By: #### 3 084-1 #### MYA DE LA CRUZ ([id number]) [facility]) [address] [place] [address] 85865 Glucose [Mass/Vol] 183 mg/dL High 74 - 99 mg/dL [facility] Interpretation and review of laboratory results Abnormal [facility] Glucose [Mass/Vol] 183 mg/dL High 74-99 [facility] Comment on above: Performed By: #### 3 084-1 #### ROQUE JONO ([id number]) [facility]) [address] [place] [address] ACT Coag (Bld)on 07-16-2025 Interpretation and review of laboratory results Abnormal [facility] Interpretation and review of laboratory results Abnormal [facility] ACTIVATED CLOTTING TIME LOWo n 07-16-2025 ACT Coag (Bld) 240 s [facility] ACT Coag (Bld) 270 s [facility] Basic metabolic 2000 panelon 07-16-2025 Anion gap [Moles/Vol] 15 mmol/L 10 - 2 0 mmol/L [facility] Calcium [Mass/Vol] 9.1 mg/dL 8.6 - 10. 6 mg/dL [facility] Chloride [Moles/Vol] 103 mmol/L 98 - 10 7 mmol/L [facility] CO2 [Moles/Vol] 24 mmol/L 21 - 32 mmol/L [facility] Creatinine [Mass/Vol] 2.77 mg/dL High 0.50 - 1.30 mg/dL [facility] GFR/1.73 sq M.predicted among non-blacks MDRD (S/P/Bld) [Vol rate/Area] 22 mL/min/{1.73_m2} Low - PINF [facility] Glucose [Mass/Vol] 241 mg/dL High 74 - 99 mg/dL [facility] Interpretation and review of laboratory results Abnormal [facility] Potassium [Moles/Vol] 3.8 mmol/L 3.5 - 5.3 mmol/L [facility] Sodium [Moles/Vol] 138 mmol/L 136 - 145 mmol/L [facility] Urea nitrogen [Mass/Vol] 35 mg/dL High 6 - 23 mg/dL [facility] Anion gap [Moles/Vol] 15 mmol/L Normal 10-20 [facility] Comment on above: Performed By: #### 2 777-1 #### MYA DE LA CRUZ ([id number]) [facility]) [address] [place] [address] Calcium [Mass/Vol] 9.1 mg/dL Normal 8.6-10.6 [facility] Comment on above: Performed By: #### 2 777-1 #### MYA DE LA CRUZ ([id number]) [facility]) [address] [place] [address] Chloride [Moles/Vol] 103 mmol/L Normal 98-107 [facility] Comment on above: Performed By: #### 2 777-1 #### MYA DE LA CRUZ ([id number]) [facility]) [address] [place] [address] 60680 CO2 [Moles/Vol] 24 mmol/L Normal 21-32 [facility] Comment on above: Performed By: #### 2 777-1 #### MYA DE LA CRUZ ([id number]) [facility]) [facility] [place] [address] Creatinine [Mass/Vol] 2.77 mg/dL High 0.50-1.30 [facility] Comment on above: Performed By: #### 2 777-1 #### MYA DE LA CRUZ ([id number]) [facility]) [address] [place] [address] 94259 Glomerular filtration rate 22 mL/min/1.73m*2 Low >60 [facility] Comment on above: Result Comment: Calc ulations of estimated GFR are performed using the 2020 CKD-EPI Study Refit equation without the race variable for the IDMS-Traceable creatinine methods. https://jasn.asnjournals.org/content/early/ASN.749192 9027 Performed By: #### 2 777-1 #### MYA DE LA CRUZ ([id number]) [facility]) [address] [place] [address] 41537 Glucose [Mass/Vol] 241 mg/dL High 74-99 [facility] Comment on above: Performed By: #### 2 777-1 #### MYA DE LA CRUZ ([id number]) [facility]) [address] [place] [address] Potassium [Moles/Vol] 3.8 mmol/L Normal 3.5-5.3 [facility] Comment on above: Performed By: #### 2 777-1 #### MYA DE LA CRUZ ([id number]) [facility]) [address] [place] [address] Sodium [Moles/Vol] 138 mmol/L Normal 136-145 [facility] Comment on above: Performed By: #### 2 777-1 #### MYA DE LA CRUZ ([id number]) [facility]) [address] [place] [address] 14264 Urea nitrogen [Mass/Vol] 35 mg/dL High 6-23 [facility] Comment on above: Performed By: #### 2 777-1 #### MYA DE LA CRUZ ([id number]) [facility]) [address] [place] [address] 11183 CBC W Auto Differential pane l (Bld)on 07-16-2025 Basophils (Bld) [#/Vol] 0.08 10*3/uL [facility] Basophils/100 WBC (Bld) 0.8 % 0.0 - 2.0 % [facility] Eosinophils (Bld) [#/Vol] 0.42 10*3/uL High [facility] Eosinophils/100 WBC (Bld) 4.4 % 0.0 - 6.0 % [facility] Erythrocyte distribution width (RBC) [Ratio] 14.4 % 11.5 - 14.5 % [facility] Hematocrit (Bld) [Volume fraction] 36.4 % Low 41.0 - 52.0 % [facility] Hemoglobin (Bld) [Mass/Vol] 11.5 g/dL Low 13.5 - 17.5 g/dL [facility] Immature granulocytes (Bld) [#/Vol] 0.05 10*3/uL [facility] Immature granulocytes/100 WBC (Bld) 0.5 % 0.0 - 0.9 % [facility] Interpretation and review of laboratory results Abnormal [facility] Lymphocytes (Bld) [#/Vol] 1.24 10*3/uL [facility] Lymphocytes/100 WBC (Bld) 13.0 % 13.0 - 44.0 % [facility] MCH (RBC) [Entitic mass] 29.9 pg 26.0 - 34.0 pg [facility] MCHC (RBC) [Mass/Vol] 31.6 g/dL Low 32.0 - 36.0 g/dL [facility] MCV (RBC) [Entitic vol] 95 fL 80 - 100 fL [facility] Monocytes (Bld) [#/Vol] 0.93 10*3/uL High [facility] Monocytes/100 WBC (Bld) 9.7 % 2.0 - 10.0 % [facility] Neutrophils (Bld) [#/Vol] 6.85 10*3/uL High [facility] Neutrophils/100 WBC (Bld) 71.6 % 40.0 - 80.0 % [facility] Nucleated RBC/100 WBC (Bld) [Ratio] 0.0 % [facility] Platelets (Bld) [#/Vol] 163 10*3/uL [facility] RBC (Bld) [#/Vol] 3.84 10*6/uL Low [facility] WBC (Bld) [#/Vol] 9.6 10*3/uL [facility] Basophils (Bld) [#/Vol] 0.08 x10*3/uL Normal 0.00-0.10 [facility] Comment on above: Performed By: #### 2 777-1 #### MYA DE LA CRUZ ([id number]) [facility]) [address] [place] [address] Basophils/100 WBC (Bld) 0.8 % Normal 0.0-2.0 [facility] Comment on above: Performed By: #### 2 777-1 #### MYA DE LA CRUZ ([id number]) [facility]) [address] [place] [address] 43211 Eosinophils (Bld) [#/Vol] 0.42 x10*3/uL High 0.00-0.40 [facility] Comment on above: Performed By: #### 2 777-1 #### MYA DE LA CRUZ ([id number]) [facility]) [address] [place] [address] 86250 Eosinophils/100 WBC (Bld) 4.4 % Normal 0.0-6.0 [facility] Comment on above: Performed By: #### 2 777-1 #### MYA DE LA CRUZ ([id number]) [facility]) [address] [place] [address] 81925 Erythrocyte distribution width (RBC) [Ratio] 14.4 % Normal 11.5-14.5 [facility] Comment on above: Performed By: #### 2 777-1 #### MYA DE LA CRUZ ([id number]) [facility]) [address] [place] [address] 46069 Hematocrit (Bld) [Volume fraction] 36.4 % Low 41.0-52.0 [facility] Comment on above: Performed By: #### 2 777-1 #### MYA DE LA CRUZ ([id number]) [facility]) [address] [place] [address] 12444 Hemoglobin (Bld) [Mass/Vol] 11.5 g/dL Low 13.5-17.5 [facility] Comment on above: Performed By: #### 2 777-1 #### MYA DE LA CRUZ ([id number]) [facility]) [address] [place] [address] 34498 Immature granulocytes (Bld) [#/Vol] 0.05 x10*3/uL Normal 0.00-0.50 [facility] Comment on above: Performed By: #### 2 777-1 #### MYA DE LA CRUZ ([id number]) [facility]) [address] [place] [address] 41999 Immature granulocytes/100 WBC (Bld) 0.5 % Normal 0.0-0.9 [facility] Comment on above: Result Comment: Eva ture Granulocyte Count (IG) includes promyelocytes, myelocytes and metamyelocytes but does not include bands. Percent differential counts (%) should be interpreted in the context of the absolute cell counts (cells/UL). Performed By: #### 2 777-1 #### MYA DE LA CRUZ ([id number]) [facility]) [address] [place], [place] [phone] Lymphocytes (Bld) [#/Vol] 1.24 x10*3/uL Normal 0.80-3.00 [facility] Comment on above: Performed By: #### 2 777-1 #### MYA DE LA CRUZ ([id number]) [facility]) [address] [place] [address] 35540 Lymphocytes/100 WBC (Bld) 13.0 % Normal 13.0-44.0 [facility] Comment on above: Performed By: #### 2 777-1 #### MYA DE LA CRUZ ([id number]) [facility]) [address] [place] [address] 32600 MCH (RBC) [Entitic mass] 29.9 pg Normal 26.0-34.0 [facility] Comment on above: Performed By: #### 2 777-1 #### MYA DE LA CRUZ ([id number]) [facility]) [address] [place] [address] 31288 MCHC (RBC) [Mass/Vol] 31.6 g/dL Low 32.0-36.0 [facility] Comment on above: Performed By: #### 2 777-1 #### MYA DE LA CRUZ ([id number]) [facility]) [address] [place] [address] 25785 MCV (RBC) [Entitic vol] 95 fL Normal 80-100 [facility] Comment on above: Performed By: #### 2 777-1 #### MYA DE LA CRUZ ([id number]) [facility]) [address] [place] [address] 74741 Monocytes (Bld) [#/Vol] 0.93 x10*3/uL High 0.05-0.80 [facility] Comment on above: Performed By: #### 2 777-1 #### MYA DE LA CRUZ ([id number]) [facility]) [address] [place] [address] Monocytes/100 WBC (Bld) 9.7 % Normal 2.0-10.0 [facility] Comment on above: Performed By: #### 2 777-1 #### MYA DE LA CRUZ ([id number]) [facility]) [address] [place] [address] 19162 Neutrophils (Bld) [#/Vol] 6.85 x10*3/uL High 1.60-5.50 [facility] Comment on above: Result Comment: Perc ent differential counts (%) should be interpreted in the context of the absolute cell counts (cells/uL). Performed By: #### 2 777-1 #### MYA DE LA CRUZ ([id number]) [facility]) [address] [place] [address] 90705 Neutrophils/100 WBC (Bld) 71.6 % Normal 40.0-80.0 [facility] Comment on above: Performed By: #### 2 777-1 #### MYA DE LA CRUZ ([id number]) [facility] ([facility]) [address] [place] [id number] Nucleated RBC/100 WBC (Bld) [Ratio] 0.0 /100 WBCs Normal 0.0-0.0 [facility] Comment on above: Performed By: #### 2 777-1 #### MYA DE LA CRUZ ([id number]) [facility] ([facility]) [address] [place] [id number] Platelets (Bld) [#/Vol] 163 x10*3/uL Normal 150-450 [facility] Healthcare Comment on above: Performed By: #### 2 777-1 #### MYA DE LA CRUZ ([id number]) [facility] ([facility]) [address] [place] [address] 31995 RBC (Bld) [#/Vol] 3.84 x10*6/uL Low 4.50-5.90 [facility] Comment on above: Performed By: #### 2 777-1 #### MYA DE LA CRUZ ([id number]) [facility] ([facility]) [address] [place] [address] 20438 WBC (Bld) [#/Vol] 9.6 x10*3/uL Normal 4.4-11.3 [facility] Comment on above: Performed By: #### 2 777-1 #### MYA DE LA CRUZ ([id number]) [facility] ([facility]) [address] [place] [address] 09423 Coagulation tissue factor in ducedon 07-16-2025 PT Coag (PPP) [Time] 12.7 s High 9.8-12.4 [facility] Comment on above: Performed By: #### 2 777-1 #### MYA DE LA CRUZ ([id number]) [facility] ([facility]) [address] [place] [address] 60128 Glucose Test strip manual (B ld) [Mass/Vol]on 07-16-2025 Glucose [Mass/Vol] 237 mg/dL High 74 - 99 mg/dL [facility] Interpretation and review of laboratory results Abnormal [facility] Glucose [Mass/Vol] 237 mg/dL High 74-99 [facility] Comment on above: Performed By: #### 2 777-1 #### MYA DE LA CRUZ ([id number]) [facility] ([facility]) [address] [place] [address] 07498 Glucose [Mass/Vol] 214 mg/dL High 74 - 99 mg/dL [facility] Interpretation and review of laboratory results Abnormal [facility] Glucose [Mass/Vol] 214 mg/dL High 74-99 [facility] Comment on above: Performed By: #### 2 777-1 #### MYA DE LA CRUZ ([id number]) [facility] ([facility]) [address] [place] [address] 59270 Magnesiumon 07-16-2025 Magnesium [Mass/Vol] 2.17 mg/dL 1.60 - 2.40 mg/dL [facility] Magnesium [Mass/Vol] 2.17 mg/dL Normal 1.60-2.40 [facility] Comment on above: Performed By: #### 2 777-1 #### MYA DE LA CRUZ ([id number]) [facility] ([facility]) [facility] [place] [address] Magnesium [Mass/Vol]on 07-16 Interpretation and review of laboratory results Normal [facility] PT Coag (PPP) [Time]on 07-16 INR Coag (PPP) [Relative time] 1.1 {INR} 0.9 - 1.1 [facility] Interpretation and review of laboratory results Abnormal [facility] INR Coag (PPP) [Relative time] 1.1 Normal 0.9-1.1 [facility] Comment on above: Performed By: #### 2 777-1 #### MYA DE LA CRUZ ([id number]) [facility] ([facility]) [address] [place] [address] Protime-INRon 07-16-2025 PT Coag (PPP) [Time] 12.7 s High [facility] Basic metabolic 2000 panelon 07-15-2025 Anion gap [Moles/Vol] 17 mmol/L 10 - 2 0 mmol/L [facility] Calcium [Mass/Vol] 9.1 mg/dL 8.6 - 10. 6 mg/dL [facility] Chloride [Moles/Vol] 102 mmol/L 98 - 10 7 mmol/L [facility] CO2 [Moles/Vol] 23 mmol/L 21 - 32 mmol/L [facility] Creatinine [Mass/Vol] 2.68 mg/dL High 0.50 - 1.30 mg/dL [facility] GFR/1.73 sq M.predicted among non-blacks MDRD (S/P/Bld) [Vol rate/Area] 23 mL/min/{1.73_m2} Low - PINF [facility] Glucose [Mass/Vol] 162 mg/dL High 74 - 99 mg/dL [facility] Interpretation and review of laboratory results Abnormal [facility] Potassium [Moles/Vol] 3.8 mmol/L 3.5 - 5.3 mmol/L [facility] Sodium [Moles/Vol] 138 mmol/L 136 - 145 mmol/L [facility] Urea nitrogen [Mass/Vol] 37 mg/dL High 6 - 23 mg/dL [facility] Anion gap [Moles/Vol] 17 mmol/L Normal 10-20 [facility] Comment on above: Performed By: #### 1 9123-9 #### MYA DE LA CRUZ ([id number]) [facility]) [address] [place] [address] 86681 Calcium [Mass/Vol] 9.1 mg/dL Normal 8.6-10.6 [facility] Comment on above: Performed By: #### 1 9123-9 #### MYA DE LA CRUZ ([id number]) [facility] ([facility]) [address] [place] [address] 81960 Chloride [Moles/Vol] 102 mmol/L Normal 98-107 [facility] Comment on above: Performed By: #### 1 9123-9 #### MYA DE LA CRUZ ([id number]) [facility]) [facility] [place] [address] CO2 [Moles/Vol] 23 mmol/L Normal 21-32 [facility] Comment on above: Performed By: #### 1 9123-9 #### MYA DE LA CRUZ ([id number]) [facility]) [facility] [place] [address] Creatinine [Mass/Vol] 2.68 mg/dL High 0.50-1.30 [facility] Comment on above: Performed By: #### 1 9123-9 #### MYA DE LA CRUZ ([id number]) [facility] ([facility]) [address] [place] [address] 09361 Glomerular filtration rate 23 mL/min/1.73m*2 Low >60 [facility] Comment on above: Result Comment: Calc ulations of estimated GFR are performed using the 2020 CKD-EPI Study Refit equation without the race variable for the IDMS-Traceable creatinine methods. https://jasn.asnjournals.org/content/early//ASN.635616 2598 Performed By: #### 1 9123-9 #### MYA DE LA CRUZ ([id number]) [facility] ([facility]) [address] [place] [address] 84978 Glucose [Mass/Vol] 162 mg/dL High 74-99 [facility] Comment on above: Performed By: #### 1 9123-9 #### MYA DE LA CRUZ ([id number]) [facility] ([facility]) [address] [place] [address] 52388 Potassium [Moles/Vol] 3.8 mmol/L Normal 3.5-5.3 [facility] Comment on above: Performed By: #### 1 9123-9 #### MYA DE LA CRUZ ([id number]) [facility] ([facility]) [address] [place] [address] 64619 Sodium [Moles/Vol] 138 mmol/L Normal 136-145 [facility] Comment on above: Performed By: #### 1 9123-9 #### MYA DE LA CRUZ ([id number]) [facility]) [address] [place] [address] 63510 Urea nitrogen [Mass/Vol] 37 mg/dL High 6-23 [facility] Comment on above: Performed By: #### 1 9123-9 #### MYA DE LA CRUZ ([id number]) [facility]) [address] [place] [address] 19650 CBC W Auto Differential pane l (Bld)on 07-15-2025 Basophils (Bld) [#/Vol] 0.06 10*3/uL [facility] Basophils/100 WBC (Bld) 0.6 % 0.0 - 2.0 % [facility] Eosinophils (Bld) [#/Vol] 0.45 10*3/uL High [facility] Eosinophils/100 WBC (Bld) 4.5 % 0.0 - 6.0 % [facility] Erythrocyte distribution width (RBC) [Ratio] 14.6 % High 11.5 - 14.5 % [facility] Hematocrit (Bld) [Volume fraction] 35.9 % Low 41.0 - 52.0 % [facility] Hemoglobin (Bld) [Mass/Vol] 11.1 g/dL Low 13.5 - 17.5 g/dL [facility] Immature granulocytes (Bld) [#/Vol] 0.03 10*3/uL [facility] Immature granulocytes/100 WBC (Bld) 0.3 % 0.0 - 0.9 % [facility] Interpretation and review of laboratory results Abnormal [facility] Lymphocytes (Bld) [#/Vol] 1.58 10*3/uL [facility] Lymphocytes/100 WBC (Bld) 15.7 % 13.0 - 44.0 % [facility] MCH (RBC) [Entitic mass] 29.8 pg 26.0 - 34.0 pg [facility] MCHC (RBC) [Mass/Vol] 30.9 g/dL Low 32.0 - 36.0 g/dL [facility] MCV (RBC) [Entitic vol] 96 fL 80 - 100 fL [facility] Monocytes (Bld) [#/Vol] 1.15 10*3/uL High [facility] Monocytes/100 WBC (Bld) 11.4 % 2.0 - 10.0 % [facility] Neutrophils (Bld) [#/Vol] 6.79 10*3/uL High [facility] Neutrophils/100 WBC (Bld) 67.5 % 40.0 - 80.0 % [facility] Nucleated RBC/100 WBC (Bld) [Ratio] 0.0 % [facility] Platelets (Bld) [#/Vol] 147 10*3/uL Low [facility] RBC (Bld) [#/Vol] 3.73 10*6/uL Low [facility] WBC (Bld) [#/Vol] 10.1 10*3/uL [facility] Basophils (Bld) [#/Vol] 0.06 x10*3/uL Normal 0.00-0.10 [facility] Comment on above: Performed By: #### 1 9123-9 #### MYA DE LA CRUZ ([id number]) [facility]) [address] [place] [address] 52023 Basophils/100 WBC (Bld) 0.6 % Normal 0.0-2.0 [facility] Comment on above: Performed By: #### 1 9123-9 #### MYA DE LA CRUZ ([id number]) [facility] ([facility]) [address] [place] [address] 77374 Eosinophils (Bld) [#/Vol] 0.45 x10*3/uL High 0.00-0.40 [facility] Comment on above: Performed By: #### 1 9123-9 #### MYA DE LA CRUZ ([id number]) [facility]) [address] [place] [address] 41707 Eosinophils/100 WBC (Bld) 4.5 % Normal 0.0-6.0 [facility] Comment on above: Performed By: #### 1 9123-9 #### MYA DE LA CRUZ ([id number]) [facility]) [address] [place] [address] 02731 Erythrocyte distribution width (RBC) [Ratio] 14.6 % High 11.5-14.5 [facility] Comment on above: Performed By: #### 1 9123-9 #### MYA DE LA CRUZ ([id number]) [facility]) [address] [place] [address] 54879 Hematocrit (Bld) [Volume fraction] 35.9 % Low 41.0-52.0 [facility] Comment on above: Performed By: #### 1 9123-9 #### MYA DE LA CRUZ ([id number]) [facility]) [address] [place] [address] 72480 Hemoglobin (Bld) [Mass/Vol] 11.1 g/dL Low 13.5-17.5 [facility] Comment on above: Performed By: #### 1 9123-9 #### MYA DE LA CRUZ ([id number]) [facility]) [address] [place] [address] 43153 Immature granulocytes (Bld) [#/Vol] 0.03 x10*3/uL Normal 0.00-0.50 [facility] Comment on above: Performed By: #### 1 9123-9 #### MYA DE LA CRUZ ([id number]) [facility]) [address] [place] [address] 63923 Immature granulocytes/100 WBC (Bld) 0.3 % Normal 0.0-0.9 [facility] Comment on above: Result Comment: Eva ture Granulocyte Count (IG) includes promyelocytes, myelocytes and metamyelocytes but does not include bands. Percent differential counts (%) should be interpreted in the context of the absolute cell counts (cells/UL). Performed By: #### 1 9123-9 #### MYA DE LA CRUZ ([id number]) [facility] ([facility]) [address] [place] [address] 54942 Lymphocytes (Bld) [#/Vol] 1.58 x10*3/uL Normal 0.80-3.00 [facility] Comment on above: Performed By: #### 1 9123-9 #### MYA DE LA CRUZ ([id number]) [facility] ([facility]) [address] [place] [address] 81000 Lymphocytes/100 WBC (Bld) 15.7 % Normal 13.0-44.0 [facility] Comment on above: Performed By: #### 1 9123-9 #### MYA DE LA CRUZ ([id number]) [facility]) [address] [place] [address] 82334 MCH (RBC) [Entitic mass] 29.8 pg Normal 26.0-34.0 [facility] Comment on above: Performed By: #### 1 9123-9 #### MYA DE LA CRUZ ([id number]) [facility]) [address] [place] [address] 36374 MCHC (RBC) [Mass/Vol] 30.9 g/dL Low 32.0-36.[address] [facility] Comment on above: Performed By: #### 1 9123-9 #### MYA DE LA CRUZ ([id number]) [facility]) [address] [place] [address] 17151 MCV (RBC) [Entitic vol] 96 fL Normal 80-100 [facility] Comment on above: Performed By: #### 1 9123-9 #### MYA DE LA CRUZ ([id number]) [facility]) [address] [place] [address] 67106 Monocytes (Bld) [#/Vol] 1.15 x10*3/uL High 0.05-0.80 [facility] Comment on above: Performed By: #### 1 9123-9 #### MYA DE LA CRUZ ([id number]) [facility]) [address] [place] [address] 83705 Monocytes/100 WBC (Bld) 11.4 % Normal 2.0-10.0 [facility] Comment on above: Performed By: #### 1 9123-9 #### MYA DE LA CRUZ ([id number]) [facility]) [address] [place] [address] 99987 Neutrophils (Bld) [#/Vol] 6.79 x10*3/uL High 1.60-5.50 [facility] Comment on above: Result Comment: Perc ent differential counts (%) should be interpreted in the context of the absolute cell counts (cells/uL). Performed By: #### 1 9123-9 #### MYA DE LA CRUZ ([id number]) [facility]) [address] [place] [address] 35740 Neutrophils/100 WBC (Bld) 67.5 % Normal 40.0-80.0 [facility] Comment on above: Performed By: #### 1 9123-9 #### MYA DE LA CRUZ ([id number]) [facility] ([facility]) [address] [place] [address] 82303 Nucleated RBC/100 WBC (Bld) [Ratio] 0.0 /100 WBCs Normal 0.0-0.0 [facility] Comment on above: Performed By: #### 1 9123-9 #### MYA DE LA CRUZ ([id number]) [facility]) [address] [place] [address] Platelets (Bld) [#/Vol] 147 x10*3/uL Low 150-450 [facility] Comment on above: Performed By: #### 1 9123-9 #### MYA DE LA CRUZ ([id number]) [facility]) [address] [place] [address] RBC (Bld) [#/Vol] 3.73 x10*6/uL Low 4.50-5.90 [facility] Comment on above: Performed By: #### 1 9123-9 #### MYA DE LA CRUZ ([id number]) [facility]) [address] [place] [address] WBC (Bld) [#/Vol] 10.1 x10*3/uL Normal 4.4-11.3 [facility] Comment on above: Performed By: #### 1 9123-9 #### MYA DE LA CRUZ ([id number]) [facility]) [address] [place] [address] Cardiac catheterization stud yon 07-15-2025 SYNGO SYNGO [facility] Work Phone: Cardiac catheterization stud yOrdered By: Dorothy Barbosa on 07-15-2025 [facility] Work Phone: Coagulation tissue factor in ducedon 07-15-2025 PT Coag (PPP) [Time] 12.9 s High 9.8-12.4 [facility] Comment on above: Performed By: #### 1 9123-9 #### MYA DE LA CRUZ ([id number]) [facility]) [address] [place] [address] ECG 12-LEADon 07-15-2025 ECG 12-LEAD Ventricular Rate 87 Atrial Rate 79 P-R Interval 296 QRS Duration 136 Q-T Interval 422 QTC Calculation(Bazett) 507 P Goltry 97 R Goltry 11 T Goltry 178 QRS Count 14 Q Onset 209 P Onset 61 P Offset 120 T Offset 420 QTC Fredericia 477 Diagnosis Sinus rhythm with 1st degree AV block with occasional Premature ventricular complexes and Premature atrial complexes Left bundle branch block Abnormal ECG When compared with ECG of 14-JUL-2025 05:26, Sinus rhythm has replaced Ectopic atrial rhythm Confirmed by Alexandro Santacruz ([id number]) on 07/30/2025 1:08:54 PM Normal [facility] Glucose Test strip manual (B ld) [Mass/Vol]on 07-15-2025 Glucose [Mass/Vol] 220 mg/dL High 74 - 99 mg/dL [facility] Interpretation and review of laboratory results Abnormal [facility] Glucose [Mass/Vol] 220 mg/dL High 74-99 [facility] Comment on above: Performed By: #### 2 777-1 #### MYA DE LA CRUZ ([id number]) [facility]) [address] [place] [address] Glucose [Mass/Vol] 162 mg/dL High 74 - 99 mg/dL [facility] Interpretation and review of laboratory results Abnormal [facility] Glucose [Mass/Vol] 162 mg/dL High 74-99 [facility] Comment on above: Performed By: #### 1 9123-9 #### MYA DE LA CRUZ ([id number]) [facility]) [address] [place] [address] HbA1c (Bld) [Mass fraction]o n 07-15-2025 Average glucose Estimated from glycated hemoglobin (Bld) [Mass/Vol] 154 mg/dL Not Established [facility] Interpretation and review of laboratory results Abnormal [facility] Average glucose Estimated from glycated hemoglobin (Bld) [Mass/Vol] 154 mg/dL Normal Not Established [facility] Comment on above: Order Comment: Diagn osis of Whtptnnk-PcydghKtn-Jevhwidf: < or = 5.6%Increased risk for developing diabetes: 5.7-6.4%Diagnostic of diabetes: > or = 6.5% Performed By: #### 1 9123-9 #### MYA DE LA CRUZ ([id number]) [facility]) [address] [place] [address] Hemoglobin A1con 07-15-2025 HbA1c (Bld) [Mass fraction] 7.0 % High See comment [facility] Hemoglobin A1c/Hemoglobin.to pasquale 07-15-2025 HbA1c (Bld) [Mass fraction] 7.0 % High See comment [facility] Comment on above: Order Comment: Diagn osis of Efymjlrl-OmaznxOzc-Xfdnsovz: < or = 5.6%Increased risk for developing diabetes: 5.7-6.4%Diagnostic of diabetes: > or = 6.5% Performed By: #### 1 9123-9 #### ROQUE JONO ([id number]) [facility]) [address] [place] [address] Lipid 1996 panelon 5 Cholesterol [Mass/Vol] 142 mg/dL 0 - 199 mg/dL [facility] Cholesterol in HDL [Mass/Vol] 35.4 mg/dL [facility] Cholesterol in LDL [Mass/Vol] 76 mg/dL NINF - 99 mg/dL [facility] Cholesterol in VLDL [Mass/Vol] 31 mg/dL 0 - 40 mg/dL [facility] Cholesterol.total/Cho lesterol in HDL [Mass ratio] 4.0 {ratio} [facility] Interpretation and review of laboratory results Abnormal [facility] Non HDL Cholesterol 107 mg/dL 0 - 149 mg/dL [facility] Triglyceride [Mass/Vol] 154 mg/dL High 0 - 149 mg/dL [facility] Cholesterol [Mass/Vol] 142 mg/dL Normal 0-199 [facility] Comment on above: Result Comment: Age Desirable Borderline High High 0-19 Y 0 - 169 170 - 199 >/= 200 20-24 Y 0 - 189 190 - 224 >/= 225 >24 Y 0 - 199 200 - 239 >/= 240 All ranges are based on fasting samples. Specific therapeutic targets will vary based on patient-specific cardiac risk. Pediatric guidelines reference:Pediatrics 2011, 128(S5).Adult guidelines reference: NCEP ATPIII Guidelines,TRAE 2001, 258:2486-97 Venipuncture immediately after or during the administration of Metamizole may lead to falsely low results. Testing should be performed immediately prior to Metamizole dosing. Performed By: #### 1 9123-9 #### MYA DE LA CRUZ ([id number]) [facility]) [address] [place] [address] Cholesterol in HDL [Mass/Vol] 35.4 mg/dL Normal [facility] Comment on above: Result Comment: Age Very Low Low Normal High 0-19 Y < 35 < 40 40-45 ---- 20-24 Y ---- < 40 >45 ---- >24 Y ---- < 40 40-60 >60 Performed By: #### 1 9123-9 #### MYA DE LA CRUZ ([id number]) [facility]) [facility] [place] [address] Cholesterol in LDL [Mass/Vol] 76 mg/dL Normal <=99 [facility] Comment on above: Result Comment: Near Borderline AGE Desirable Optimal High High Very High 0-19 Y 0 - 109 --- 110-129 >/= 130 ---- 20-24 Y 0 - 119 --- 120-159 >/= 160 ---- >24 Y 0 - 99 100-129 130-159 160-189 >/=190 LDL Cholesterol is calculated using the Friedewald equation. Performed By: #### 1 9123-9 #### MYA DE LA CRUZ ([id number]) [facility]) [facility] [place] [address] Cholesterol in VLDL [Mass/Vol] 31 mg/dL Normal 0-40 [facility] Comment on above: Performed By: #### 1 9123-9 #### MYA DE LA CRUZ ([id number]) [facility]) [facility] [place] [address] CHOLESTEROL/HDL RATIO 4.0 Normal [facility] Comment on above: Result Comment: Ref Values Desirable < 3.4 High Risk > 5.0 Performed By: #### 1 9123-9 #### MYA DE LA CRUZ ([id number]) [facility]) [facility] [place] [address] NON HDL CHOLESTEROL 107 mg/dL Normal 0-[address] [facility] Comment on above: Result Comment: Age Desirable Borderline High High Very High 0-19 Y 0 - 119 120 - 144 >/= 145 >/= 160 20-24 Y 0 - 149 150 - 189 >/= 190 ---- >24 Y 30 mg/dL above LDL Cholesterol goal Performed By: #### 1 9123-9 #### MYA DE LA CRUZ ([id number]) [facility]) [address] [place] [address] Triglyceride [Mass/Vol] 154 mg/dL High 0-149 [facility] Comment on above: Result Comment: Age Desirable Borderline High Very High SEX:B mg/dL mg/dL mg/dL mg/dL <=14D 86-277 ---- ---- ---- 15D-365D 55-277 ---- ---- ---- 1Y-9Y 0-74 75-99 >=100 ---- 10Y-19Y 0-89 90-129 >=130 ---- 20Y-24Y 0-114 115-149 >=150 ---- >= 25Y 0-149 150-199 200-499 >=500 Venipuncture immediately after or during the administration of Metamizole may lead to falsely low results. Testing should be performed immediately prior to Metamizole dosing. Performed By: #### 1 9123-9 #### MYA DE LA CRUZ ([id number]) [facility]) [address] [place] [address] MR Brain WO contraston 07-15 [facility] MMODAL U[facility] MMODAL [facility] Work Phone: MR Brain WO contrastOrdered By: Matilde Melvin on 07-15-2025 [facility] Work Phone: Magnesiumon 07-15-2025 Magnesium [Mass/Vol] 2.11 mg/dL 1.60 - 2.40 mg/dL [facility] Magnesium [Mass/Vol] 2.11 mg/dL Normal 1.60-2.40 [facility] Comment on above: Performed By: #### 1 9123-9 #### MYA DE LA CRUZ ([id number]) [facility]) [address] [place] [address] Magnesium [Mass/Vol]on 07-15 Interpretation and review of laboratory results Normal [facility] No Panel Informationon 07-15 [facility] PT Coag (PPP) [Time]on 07-15 INR Coag (PPP) [Relative time] 1.2 {INR} High 0.9 - 1.1 [facility] Interpretation and review of laboratory results Abnormal [facility] INR Coag (PPP) [Relative time] 1.2 High 0.9-1.1 [facility] Comment on above: Performed By: #### 1 9123-9 #### ROQUE JONO ([id number]) [facility]) [address] [place] [address] Protime-INRon 07-15-2025 PT Coag (PPP) [Time] 12.9 s High [facility] XR Chest Single viewon 07-15 [facility] MMODAL [facility] MMODAL [facility] Work Phone: XR Chest Single viewOrdered By: Darinel Zee on 07-15-2025 [facility] Work Phone: Basic metabolic 2000 panelon 07-14-2025 Anion gap [Moles/Vol] 15 mmol/L 10 - 2 0 mmol/L [facility] Calcium [Mass/Vol] 9.1 mg/dL 8.6 - 10. 6 mg/dL [facility] Chloride [Moles/Vol] 103 mmol/L 98 - 10 7 mmol/L [facility] CO2 [Moles/Vol] 24 mmol/L 21 - 32 mmol/L [facility] Creatinine [Mass/Vol] 2.01 mg/dL High 0.50 - 1.30 mg/dL [facility] GFR/1.73 sq M.predicted among non-blacks MDRD (S/P/Bld) [Vol rate/Area] 32 mL/min/{1.73_m2} Low - PINF [facility] Glucose [Mass/Vol] 171 mg/dL High 74 - 99 mg/dL [facility] Interpretation and review of laboratory results Abnormal [facility] Potassium [Moles/Vol] 3.9 mmol/L 3.5 - 5.3 mmol/L [facility] Sodium [Moles/Vol] 138 mmol/L 136 - 145 mmol/L [facility] Urea nitrogen [Mass/Vol] 33 mg/dL High 6 - 23 mg/dL [facility] Anion gap [Moles/Vol] 15 mmol/L Normal 10-20 [facility] Comment on above: Performed By: #### 2 4356-8 #### MYA DE LA CRUZ ([id number]) [facility] ([facility]) [address] [place] [address] 16336 Calcium [Mass/Vol] 9.1 mg/dL Normal 8.6-10.6 [facility] Comment on above: Performed By: #### 2 4356-8 #### MYA DE LA CRUZ ([id number]) [facility] ([facility]) [address] [place] [address] 20434 Chloride [Moles/Vol] 103 mmol/L Normal 98-107 [facility] Comment on above: Performed By: #### 2 4356-8 #### MYA DE LA CRUZ ([id number]) [facility] ([facility]) [address] [place] [address] 87840 CO2 [Moles/Vol] 24 mmol/L Normal 21-32 [facility] Comment on above: Performed By: #### 2 4356-8 #### MYA DE LA CRUZ ([id number]) [facility] ([facility]) [address] [place] [address] 34569 Creatinine [Mass/Vol] 2.01 mg/dL High 0.50-1.30 [facility] Comment on above: Performed By: #### 2 4356-8 #### MYA DE LA CRUZ ([id number]) [facility] ([facility]) [address] [place] [address] 99283 Glomerular filtration rate 32 mL/min/1.73m*2 Low >60 [facility] Comment on above: Result Comment: Calc ulations of estimated GFR are performed using the 2020 CKD-EPI Study Refit equation without the race variable for the IDMS-Traceable creatinine methods. https://jasn.asnjournals.org/content//ASN.156173 7608 Performed By: #### 2 4356-8 #### MYA DE LA CRUZ ([id number]) [facility] ([facility]) [address] [place] [address] 85043 Glucose [Mass/Vol] 171 mg/dL High 74-99 [facility] Comment on above: Performed By: #### 2 4356-8 #### MYA DE LA CRUZ ([id number]) [facility] ([facility]) [address] [place] [address] 31134 Potassium [Moles/Vol] 3.9 mmol/L Normal 3.5-5.3 [facility] Comment on above: Performed By: #### 2 4356-8 #### MYA DE LA CRUZ ([id number]) [facility] ([facility]) [address] [place] [address] 69799 Sodium [Moles/Vol] 138 mmol/L Normal 136-145 [facility] Comment on above: Performed By: #### 2 4356-8 #### MYA DE LA CRUZ ([id number]) [facility] ([facility]) [address] [place] [address] 32103 Urea nitrogen [Mass/Vol] 33 mg/dL High 6-23 [facility] Comment on above: Performed By: #### 2 4356-8 #### MYA DE LA CRUZ ([id number]) [facility] ([facility]) [address] [place] [address] 93094 CBC W Auto Differential pane l (Bld)on 07-14-2025 Basophils (Bld) [#/Vol] 0.06 10*3/uL [facility] Basophils/100 WBC (Bld) 0.6 % 0.0 - 2.0 % [facility] Eosinophils (Bld) [#/Vol] 0.23 10*3/uL [facility] Eosinophils/100 WBC (Bld) 2.4 % 0.0 - 6.0 % [facility] Erythrocyte distribution width (RBC) [Ratio] 14.6 % High 11.5 - 14.5 % [facility] Hematocrit (Bld) [Volume fraction] 35.3 % Low 41.0 - 52.0 % [facility] Hemoglobin (Bld) [Mass/Vol] 11.1 g/dL Low 13.5 - 17.5 g/dL [facility] Immature granulocytes (Bld) [#/Vol] 0.05 10*3/uL [facility] Immature granulocytes/100 WBC (Bld) 0.5 % 0.0 - 0.9 % [facility] Interpretation and review of laboratory results Abnormal [facility] Lymphocytes (Bld) [#/Vol] 1.40 10*3/uL [facility] Lymphocytes/100 WBC (Bld) 14.7 % 13.0 - 44.0 % [facility] MCH (RBC) [Entitic mass] 29.8 pg 26.0 - 34.0 pg [facility] MCHC (RBC) [Mass/Vol] 31.4 g/dL Low 32.0 - 36.0 g/dL [facility] MCV (RBC) [Entitic vol] 95 fL 80 - 100 fL [facility] Monocytes (Bld) [#/Vol] 0.80 10*3/uL [facility] Monocytes/100 WBC (Bld) 8.4 % 2.0 - 10.0 % [facility] Neutrophils (Bld) [#/Vol] 7.00 10*3/uL High [facility] Neutrophils/100 WBC (Bld) 73.4 % 40.0 - 80.0 % [facility] Nucleated RBC/100 WBC (Bld) [Ratio] 0.0 % [facility] Platelets (Bld) [#/Vol] 146 10*3/uL Low [facility] RBC (Bld) [#/Vol] 3.73 10*6/uL Low [facility] WBC (Bld) [#/Vol] 9.5 10*3/uL [facility] Basophils (Bld) [#/Vol] 0.06 x10*3/uL Normal 0.00-0.10 [facility] Comment on above: Performed By: #### 2 4356-8 #### MYA DE LA CRUZ ([id number]) [facility] ([facility]) [address] [place] [address] 95991 Basophils/100 WBC (Bld) 0.6 % Normal 0.0-2.0 [facility] Comment on above: Performed By: #### 2 4356-8 #### MYA DE LA CRUZ ([id number]) [facility] ([facility]) [address] [place] [address] 09525 Eosinophils (Bld) [#/Vol] 0.23 x10*3/uL Normal 0.00-0.40 [facility] Comment on above: Performed By: #### 2 435-8 #### MYA DE LA CRUZ ([id number]) [facility] ([facility]) [address] [place] [address] 13507 Eosinophils/100 WBC (Bld) 2.4 % Normal 0.0-6.0 [facility] Comment on above: Performed By: #### 2 435-8 #### MYA DE LA CRUZ ([id number]) [facility] ([facility]) [address] [place] [address] 55049 Erythrocyte distribution width (RBC) [Ratio] 14.6 % High 11.5-14.5 [facility] Comment on above: Performed By: #### 2 435-8 #### MYA DE LA CRUZ ([id number]) [facility] ([facility]) [address] [place] [address] 83272 Hematocrit (Bld) [Volume fraction] 35.3 % Low 41.0-52.0 [facility] Comment on above: Performed By: #### 2 435-8 #### MYA DE LA CRUZ ([id number]) [facility] ([facility]) [address] [place] [address] 08037 Hemoglobin (Bld) [Mass/Vol] 11.1 g/dL Low 13.5-17.5 [facility] Comment on above: Performed By: #### 2 4356-8 #### MYA DE LA CRUZ ([id number]) [facility] ([facility]) [address] [place] [address] 41006 Immature granulocytes (Bld) [#/Vol] 0.05 x10*3/uL Normal 0.00-0.50 [facility] Comment on above: Performed By: #### 2 4356-8 #### MYA DE LA CRUZ ([id number]) [facility] ([facility]) [address] [place] [address] 18749 Immature granulocytes/100 WBC (Bld) 0.5 % Normal 0.0-0.9 [facility] Comment on above: Result Comment: Eva ture Granulocyte Count (IG) includes promyelocytes, myelocytes and metamyelocytes but does not include bands. Percent differential counts (%) should be interpreted in the context of the absolute cell counts (cells/UL). Performed By: #### 2 4356-8 #### MYA DE LA CRUZ ([id number]) [facility] ([facility]) [address] [place] [address] 85846 Lymphocytes (Bld) [#/Vol] 1.40 x10*3/uL Normal 0.80-3.00 [facility] Comment on above: Performed By: #### 2 4356-8 #### MYA DE LA CRUZ ([id number]) [facility] ([facility]) [address] [place] [address] 70398 Lymphocytes/100 WBC (Bld) 14.7 % Normal 13.0-44.0 [facility] Comment on above: Performed By: #### 2 4356-8 #### MYA DE LA CRUZ ([id number]) [facility] ([facility]) [address] [place] [address] 75917 MCH (RBC) [Entitic mass] 29.8 pg Normal 26.0-34.0 [facility] Comment on above: Performed By: #### 2 4356-8 #### MYA DE LA CRUZ ([id number]) [facility] ([facility]) [address] [place] [address] 40241 MCHC (RBC) [Mass/Vol] 31.4 g/dL Low 32.0-36.0 [facility] Comment on above: Performed By: #### 2 4356-8 #### MYA DE LA CRUZ ([id number]) [facility] ([facility]) [address] [place] [address] 53091 MCV (RBC) [Entitic vol] 95 fL Normal 80-100 [facility] Comment on above: Performed By: #### 2 4356-8 #### MYA DE LA CRUZ ([id number]) [facility] ([facility]) [address] [place] [address] 17310 Monocytes (Bld) [#/Vol] 0.80 x10*3/uL Normal 0.05-0.80 [facility] Comment on above: Performed By: #### 2 4356-8 #### MYA DE LA CRUZ ([id number]) [facility] ([facility]) [address] [place] [address] 58213 Monocytes/100 WBC (Bld) 8.4 % Normal 2.0-10.0 [facility] Comment on above: Performed By: #### 2 4356-8 #### MYA DE LA CRUZ ([id number]) [facility] ([facility]) [address] [place] [address] 86497 Neutrophils (Bld) [#/Vol] 7.00 x10*3/uL High 1.60-5.50 [facility] Comment on above: Result Comment: Perc ent differential counts (%) should be interpreted in the context of the absolute cell counts (cells/uL). Performed By: #### 2 4356-8 #### MYA DE LA CRUZ ([id number]) [facility] ([facility]) [address] [place] [address] 47668 Neutrophils/100 WBC (Bld) 73.4 % Normal 40.0-80.0 [facility] Comment on above: Performed By: #### 2 4356-8 #### MYA DE LA CRUZ ([id number]) [facility] ([facility]) [address] [place] [address] 24823 Nucleated RBC/100 WBC (Bld) [Ratio] 0.0 /100 WBCs Normal 0.0-0.0 [facility] Comment on above: Performed By: #### 2 4356-8 #### MYA DE LA CRUZ ([id number]) [facility] ([facility]) [address] [place] [address] 76780 Platelets (Bld) [#/Vol] 146 x10*3/uL Low 150-450 [facility] Comment on above: Performed By: #### 2 4356-8 #### MYA DE LA CRUZ ([id number]) [facility] ([facility]) [facility] [place] [address] RBC (Bld) [#/Vol] 3.73 x10*6/uL Low 4.50-5.90 [facility] Comment on above: Performed By: #### 2 4356-8 #### MYA DE LA CRUZ ([id number]) [facility] ([facility]) [address] [place] [address] WBC (Bld) [#/Vol] 9.5 x10*3/uL Normal 4.4-11.3 [facility] Comment on above: Performed By: #### 2 4356-8 #### MYA DE LA CRUZ ([id number]) [facility] ([facility]) [address] [place] [address] CT BRAIN ATTACK ANGIO HEAD A ND NECK W AND WO IV CONTRASTon 07-14-2025 CT BRAIN ATTACK ANGIO HEAD AND NECK W AND WO IV CONTRAST Interpreted By: Angela Doyle and Stevens Alex STUDY: CT BRAIN ATTACK HEAD WO IV CONTRAST; CT BRAIN ATTACK ANGIO HEAD AND NECK W AND WO IV CONTRAST; 07/14/2025 2:22 am; 07/14/2025 2:24 am INDICATION: Signs/Symptoms:concern for stroke; Signs/Symptoms:stroke COMPARISON: CT head 10/18/2024, CT head 05/29/2024, MRI brain 03/28/2023 ACCESSION NUMBER(S): [id number]; [id number] ORDERING CLINICIAN: CHIP LOMBARDI TECHNIQUE: Multiple contiguous axial noncontrast images of the head were obtained. Following IV contrast administration of iodinated contrast, a CT angiography of the head and neck was performed. MIPS and 3D reconstructions of the [place] of [place] and neck were created on an independent workstation and reviewed. The patient received 80 mL Omnipaque 350. The CTA of the head was post processed with Rapid. FINDINGS: NON-CONTRAST HEAD CT: BRAIN PARENCHYMA: No evidence of acute intraparenchymal hemorrhage or parenchymal evidence of an acute large territory ischemic infarct. No mass-effect, midline shift or effacement of cerebral sulci. Sun-white matter distinction is preserved. Focal hypodensity noted within the region of the left basal ganglia (series 201, image 18), favored to be reflective of a remote infarct. There are patchy and confluent areas of diminished attenuation in the subcortical and periventricular white matter. The posterior fossa is degraded by beam hardening artifact. There are small areas of diminished attenuation and volume loss in the cerebellum. There are also small hypodensities within bilateral basal ganglia, thalami, and internal and external capsules which could represent perivascular spaces or lacunar infarcts. VENTRICLES and EXTRA-AXIAL SPACES: No acute extra-axial or intraventricular hemorrhage. There is prominence of ventricles and sulci compatible with diffuse parenchymal volume loss. PARANASAL SINUSES/MASTOIDS: No hemorrhage or air-fluid levels within the visualized paranasal sinuses. The mastoids are well aerated. CALVARIUM: No skull fracture. CTA NECK: The aortic arch and arch vessels are degraded by artifact. There are atherosclerotic changes of the aortic arch. There is a three-vessel arch. The vessels are tortuous. Carotid vessels: The proximal common carotid arteries are degraded by artifact. There is mural thickening and/or noncalcified plaque along the course of the common carotid arteries, left greater than right. Relative to the caliber of the vessel more proximally there is luminal narrowing of the distal left common carotid artery measuring approximately 60-65%. There is little to no measurable stenosis of the right common carotid artery. There is atherosclerotic plaque at the carotid bifurcations and involving the proximal ICAs. Atheromatous ulceration is suspected, particularly on the right. The cervical segments of the ICAs are tortuous and deviates medially into a retropharyngeal location. Relative to the normal caliber of the vessel more distally there is narrowing at the origin of the right ICA of less than 30%. Vertebral vessels: The V1 segments of the vertebral arteries are degraded by artifact. Both appear tortuous. The right is slightly dominant. There is scattered atherosclerotic plaque along the cervical segments of the vertebral arteries bilaterally. There is luminal irregularity and at least mild narrowing of the distal V2/V3 segments on the left at the C1 level in particular. The right lobe of the thyroid gland is enlarged and there is a heterogeneous nodule measuring at least 3.5 cm in axial dimension. There is associated mass effect with mild displacement of the trachea to the left and splaying of the right common carotid artery laterally. There are scattered, nonspecific cervical lymph nodes. There are nodular foci within and abutting the parotid glands which are nonspecific but favored to represent lymph nodes. There is a partially imaged right IJ central venous line. There are areas of ground-glass opacity and septal thickening within the visualized upper lungs bilaterally. This is nonspecific. There are multilevel degenerative changes of the cervical spine. CTA HEAD: ANTERIOR CIRCULATION: There calcifications of the intracranial segments of the internal carotid arteries. There does not appear to be greater than mild associated stenosis. The proximal anterior and middle cerebral arteries are patent. POSTERIOR CIRCULATION: The right vertebral artery is dominant. The vertebrobasilar system is somewhat tortuous. The basilar artery is patent. The P1 segment of the left SCRAP BURNER is either markedly hypoplastic or absent. There is a posterior communicating artery on the left. The proximal right SCRAP BURNER is patent. IMPRESSION: 1. No proximal large branch vessel cutoff on CTA of the head. 2. Atherosclerotic changes most signi (more content not included)... Normal [facility] CT BRAIN ATTACK HEAD WO IV C [facility] 07-14-2025 CT BRAIN ATTACK HEAD WO IV CONTRAST Interpreted By: Angela Doyle and Stevens Alex STUDY: CT BRAIN ATTACK HEAD WO IV CONTRAST; CT BRAIN ATTACK ANGIO HEAD AND NECK W AND WO IV CONTRAST; 07/14/2025 2:22 am; 07/14/2025 2:24 am INDICATION: Signs/Symptoms:concern for stroke; Signs/Symptoms:stroke COMPARISON: CT head 10/18/2024, CT head 05/29/2024, MRI brain 03/28/2023 ACCESSION NUMBER(S): [id number]; [id number] ORDERING CLINICIAN: CHIP LOMBARDI TECHNIQUE: Multiple contiguous axial noncontrast images of the head were obtained. Following IV contrast administration of iodinated contrast, a CT angiography of the head and neck was performed. MIPS and 3D reconstructions of the [place] and neck were created on an independent workstation and reviewed. The patient received 80 mL Omnipaque 350. The CTA of the head was post processed with Rapid. FINDINGS: NON-CONTRAST HEAD CT: BRAIN PARENCHYMA: No evidence of acute intraparenchymal hemorrhage or parenchymal evidence of an acute large territory ischemic infarct. No mass-effect, midline shift or effacement of cerebral sulci. Sun-white matter distinction is preserved. Focal hypodensity noted within the region of the left basal ganglia (series 201, image 18), favored to be reflective of a remote infarct. There are patchy and confluent areas of diminished attenuation in the subcortical and periventricular white matter. The posterior fossa is degraded by beam hardening artifact. There are small areas of diminished attenuation and volume loss in the cerebellum. There are also small hypodensities within bilateral basal ganglia, thalami, and internal and external capsules which could represent perivascular spaces or lacunar infarcts. VENTRICLES and EXTRA-AXIAL SPACES: No acute extra-axial or intraventricular hemorrhage. There is prominence of ventricles and sulci compatible with diffuse parenchymal volume loss. PARANASAL SINUSES/MASTOIDS: No hemorrhage or air-fluid levels within the visualized paranasal sinuses. The mastoids are well aerated. CALVARIUM: No skull fracture. CTA NECK: The aortic arch and arch vessels are degraded by artifact. There are atherosclerotic changes of the aortic arch. There is a three-vessel arch. The vessels are tortuous. Carotid vessels: The proximal common carotid arteries are degraded by artifact. There is mural thickening and/or noncalcified plaque along the course of the common carotid arteries, left greater than right. Relative to the caliber of the vessel more proximally there is luminal narrowing of the distal left common carotid artery measuring approximately 60-65%. There is little to no measurable stenosis of the right common carotid artery. There is atherosclerotic plaque at the carotid bifurcations and involving the proximal ICAs. Atheromatous ulceration is suspected, particularly on the right. The cervical segments of the ICAs are tortuous and deviates medially into a retropharyngeal location. Relative to the normal caliber of the vessel more distally there is narrowing at the origin of the right ICA of less than 30%. Vertebral vessels: The V1 segments of the vertebral arteries are degraded by artifact. Both appear tortuous. The right is slightly dominant. There is scattered atherosclerotic plaque along the cervical segments of the vertebral arteries bilaterally. There is luminal irregularity and at least mild narrowing of the distal V2/V3 segments on the left at the C1 level in particular. The right lobe of the thyroid gland is enlarged and there is a heterogeneous nodule measuring at least 3.5 cm in axial dimension. There is associated mass effect with mild displacement of the trachea to the left and splaying of the right common carotid artery laterally. There are scattered, nonspecific cervical lymph nodes. There are nodular foci within and abutting the parotid glands which are nonspecific but favored to represent lymph nodes. There is a partially imaged right IJ central venous line. There are areas of ground-glass opacity and septal thickening within the visualized upper lungs bilaterally. This is nonspecific. There are multilevel degenerative changes of the cervical spine. CTA HEAD: ANTERIOR CIRCULATION: There calcifications of the intracranial segments of the internal carotid arteries. There does not appear to be greater than mild associated stenosis. The proximal anterior and middle cerebral arteries are patent. POSTERIOR CIRCULATION: The right vertebral artery is dominant. The vertebrobasilar system is somewhat tortuous. The basilar artery is patent. The P1 segment of the left SCRAP BURNER is either markedly hypoplastic or absent. There is a posterior communicating artery on the left. The proximal right SCRAP BURNER is patent. IMPRESSION: 1. No proximal large branch vessel cutoff on CTA of the head. 2. Atherosclerotic changes most signi (more content not included)... Normal [facility] CT Head WO contraston 2024 Radiology Study observation (narrative) [facility] Work Phone: CTA Head vessels and Neck ve ssels WO and W contrast Kristen 07-14-2025 Radiology Study observation (narrative) [facility] Work Phone: Coagulation tissue factor in ducedon 07-14-2025 PT Coag (PPP) [Time] 12.7 s High 9.8-12.4 [facility] Comment on above: Performed By: #### 2 4356-8 #### ROQUE JONO ([id number]) [facility]) [address] [place] [address] ECG 12 leadOrdered By: Felix Hernandez on 07-14-2025 Atrial Rate 74 BPM [facility] Work Phone: P Goltry 84 degrees [facility] Work Phone: P Offset 148 ms [facility] Work Phone: P Onset 84 ms [facility] Work Phone: TX Interval 200 ms [facility] Work Phone: Q Onset 218 ms [facility] Work Phone: QRS Count 13 beats [facility] Work Phone: QRS Duration 86 ms [facility] Work Phone: QT Interval 366 ms [facility] Work Phone: QTC Calculation(Bazett) 406 ms [facility] Work Phone: QTC Fredericia 392 ms [facility] Work Phone: R Goltry -3 degrees [facility] Work Phone: T Goltry 150 degrees [facility] Work Phone: T Offset 401 ms [facility] Work Phone: Ventricular Rate 74 BPM [facility]: [facility] Work Phone: ECG 12 leadon 07-14-2025 [facility] Work Phone: ECG 12-LEADon 07-14-2025 ECG 12-LEAD Ventricular Rate 70 Atrial Rate 70 P-R Interval 208 QRS Duration 148 Q-T Interval 474 QTC Calculation(Bazett) 511 P Goltry -51 R Goltry 6 T Goltry 162 QRS Count 11 Q Onset 204 P Onset 84 P Offset 148 T Offset 441 QTC Fredericia 499 Diagnosis Sinus rhythm with occasional Premature ventricular complexes Left bundle branch block Abnormal ECG When compared with ECG of 13-JUL-2025 19:48, No significant change was found Confirmed by Adriana Flores ([id number]) on 07/18/2025 9:26:46 PM Normal [facility] Glucose Test strip manual (B ld) [Mass/Vol]on 07-14-2025 Glucose [Mass/Vol] 201 mg/dL High 74 - 99 mg/dL [facility] Interpretation and review of laboratory results Abnormal [facility] Glucose [Mass/Vol] 201 mg/dL High 74-99 [facility] Comment on above: Performed By: #### 2 4356-8 #### MYA DE LA CRUZ ([id number]) [facility] ([facility]) [address] [place] [address] 32680 Glucose [Mass/Vol] 232 mg/dL High 74 - 99 mg/dL [facility] Interpretation and review of laboratory results Abnormal [facility] Glucose [Mass/Vol] 232 mg/dL High 74-99 [facility] Comment on above: Performed By: #### 2 4356-8 #### MYA DE LA CRUZ ([id number]) [facility] ([facility]) [address] [place] [address] 12028 Glucose [Mass/Vol] 170 mg/dL High 74 - 99 mg/dL [facility] Interpretation and review of laboratory results Abnormal [facility] Glucose [Mass/Vol] 170 mg/dL High 74-99 [facility] Comment on above: Performed By: #### 2 4356-8 #### MYA DE LA CRUZ ([id number]) [facility] ([facility]) [address] [place] [address] 21231 Glucose [Mass/Vol] 184 mg/dL High 74 - 99 mg/dL [facility] Interpretation and review of laboratory results Abnormal [facility] Glucose [Mass/Vol] 184 mg/dL High 74-99 [facility] Comment on above: Performed By: #### 2 4356-8 #### MYA DE LA CRUZ ([id number]) [facility] ([facility]) [address] [place] [address] 21873 Glucose [Mass/Vol] 165 mg/dL High 74 - 99 mg/dL [facility] Interpretation and review of laboratory results Abnormal [facility] [facility] Glucose [Mass/Vol] 165 mg/dL High 74-99 [facility] Comment on above: Performed By: #### 4 548-4 #### MARIAM Stroud ([id number]) [facility] ([facility]) [address] [place] [address] MR BRAIN WO IV CONTRASTon MR BRAIN WO IV CONTRAST Interpreted By: Matilde Melvin, STUDY: MR BRAIN WO IV CONTRAST; 07/14/2025 9:29 pm INDICATION: Signs/Symptoms:expressi ve dysphasia. COMPARISON: MRI dated 03/28/2023 ACCESSION NUMBER(S): [id number] ORDERING CLINICIAN: JACKSON COX TECHNIQUE: Axial diffusion, axial T2, axial FLAIR, axial gradient echo T2, coronal T1, and sagittal T1 weighted MRI images of the brain were obtained without intravenous contrast administration. FINDINGS: The diffusion-weighted images demonstrate scattered areas of abnormal diffusion restriction within the cerebral hemispheres bilaterally left greater than right as well as within the left cerebellar hemisphere. The dominant area of abnormal diffusion restriction is identified within the left temporoparietal region. Additional small foci of abnormal diffusion restriction are identified within the left frontal lobe, along the right precentral gyrus, right occipital lobe, and left cerebellar hemisphere. The findings are compatible with areas of acute to early subacute infarction. The above findings are superimposed upon moderate brain parenchymal volume loss. There are scattered as well as more patchy and confluent nonspecific white matter changes again noted within cerebral hemispheres bilaterally as well as ill-defined increased signal on the FLAIR and T2 images overlying the brainstem which while nonspecific, given the patient's age, likely represent sequelae of more remote small-vessel ischemic change. Additional small foci of bright signal on the T2 images are identified within the subinsular regions, basal ganglia, and thalami bilaterally suggesting incidental mildly prominent perivascular spaces and/or scattered more remote lacunar infarctions. Scattered areas of encephalomalacia are identified within the cerebellum as well as along the posterior right occipital lobe. There is no midline shift. The suprasellar/basilar cisterns are patent. There is mild mucosal thickening noted within scattered ethmoid air cells. The remaining paranasal sinuses are clear. There is opacification of a few inferior mastoid air cells bilaterally. IMPRESSION: There are MRI findings compatible with scattered areas of acute to early subacute infarction within the cerebral hemispheres bilaterally left greater than right as well as within the left cerebellar hemisphere as described above. The dominant area of acute to early subacute infarction is identified within the left temporoparietal region. The above findings are superimposed upon moderate brain parenchymal volume loss. There are scattered as well as more patchy and confluent nonspecific white matter changes again noted within cerebral hemispheres bilaterally as well as ill-defined increased signal on the FLAIR and T2 images overlying the brainstem which while nonspecific, given the patient's age, likely represent sequelae of more remote small-vessel ischemic change. Additional small foci of bright signal on the T2 images are identified within the subinsular regions, basal ganglia, and thalami bilaterally suggesting incidental mildly prominent perivascular spaces and/or scattered more remote lacunar infarctions. Scattered areas of encephalomalacia are identified within the cerebellum as well as along the posterior right occipital lobe. MACRO: Critical Finding: See findings. Notification was initiated on 07/15/2025 at 6:48 am by Matilde Melvin. (-OCF-) Instructions: See Findings. Signed by: Matilde Melvin 07/15/2025 6:48 AM Dictation workstation: [id number] Normal [facility] MR Brain WO contraston 07-14 Radiology Study observation (narrative) [facility] Work Phone: Magnesiumon 07-14-2025 Magnesium [Mass/Vol] 2.12 mg/dL 1.60 - 2.40 mg/dL [facility] Magnesium [Mass/Vol] 2.12 mg/dL Normal 1.60-2.40 [facility] Comment on above: Performed By: #### 2 4356-8 #### ROQUE JONO ([id number]) [facility] ([facility]) [address] [id number] Magnesium [Mass/Vol]on 07-14 Interpretation and review of laboratory results Normal [facility] No Panel Informationon 07-14 U[facility] MMODAL UH MMODAL [facility] Work Phone: No Panel InformationOrdered By: Angela Doyle on 07-14-2025 [facility] Work Phone: PT Coag (PPP) [Time]on 07-14 INR Coag (PPP) [Relative time] 1.1 {INR} 0.9 - 1.1 [facility] Interpretation and review of laboratory results Abnormal [facility] INR Coag (PPP) [Relative time] 1.1 Normal 0.9-1.1 [facility] Comment on above: Performed By: #### 2 4356-8 #### ROQUE JONO ([id number]) [facility] ([facility]) [facility] [place] [address] Protime-INRon 07-14-2025 PT Coag (PPP) [Time] 12.[address] [facility] TRANSTHORACIC ECHO (TTE) PORTILLO ITEDon 07-14-2025 TRANSTHORACIC ECHO (TTE) [facility], [address] [place] [address] and TRANSTHORACIC ECHOCARDIOGRAM REPORT Patient Name: KITTY VERGARA Reading Physician: [id number] Marshall Avilez MD Study Date: 07/14/2025 Ordering Provider: [id number] JOSEF DIAS MRN/PID: [id number] Fellow: Nurse: Date of /Age: 1007/06/1940 Manager Garden: Fer galeano CAMILO Gender assigned at Additional Staff: : Height: 175.00 cm Admit Date: 07/13/2025 Weight: 103.00 kg Admission Status: Inpatient - Routine BSA / BMI: 2.18 m2 / 33.63 kg/m2 Blood Pressure: 164/71 mmHg Department Location: [place] [address] Study Type: TRANSTHORACIC ECHO (TTE) LIMITED Diagnosis/ICD: Encounter for other specified special examinations-Z01.89 Indication: S/P TAVR (transcatheter aortic valve replacement); CPT Code: Echo Limited-68164; Doppler Limited-73378; Color Doppler-63569 Patient History: Pertinent History: HTN, Hyperlipidemia, CAD and LE Edema. Bradycardia, GERD, CKD IV, Cardiac Stent. S/p TAVR-34mm Medtronic Evolut. Study Detail: The following Echo studies were performed: 2D, M-Mode, Doppler and color flow. Technically challenging study due to body habitus and patient lying in supine position. Unable to obtain subcostal view. PHYSICIAN INTERPRETATION: Left Ventricle: Left ventricular ejection fraction is normal calculated by Villalobos's biplane at 62%. There are no regional left ventricular wall motion abnormalities. The left ventricular cavity size is normal. Left ventricular diastolic filling was not assessed. Left Atrium: The left atrial size is normal. Right Ventricle: The right ventricle was not well visualized. Unable to determine right ventricular systolic function. Right Atrium: The right atrial size was not well visualized. Aortic Valve: There is a prosthetic aortic valve present. The aortic valve area by VTI is 1.77 cm?? with a peak velocity of 1.95 m/s. The peak and mean gradients are 15 mmHg and 9 mmHg, respectively with a dimensionless index of 0.56. Echo findings are consistent with normal aortic valve prosthesis structure and function. There is no evidence of aortic valve regurgitation. The patient is s/p 34 mm Evolut Fx+. Mitral Valve: The mitral valve is mildly thickened. There is trace mitral valve regurgitation. Tricuspid Valve: The tricuspid valve was not well visualized. Tricuspid regurgitation was not assessed. The right ventricular systolic pressure could not be estimated. Pulmonic Valve: The pulmonic valve is not well visualized. The pulmonic valve regurgitation was not well visualized. Pericardium: There is no pericardial effusion noted. There is a pericardial fat pad present. Aorta: The aortic root was not well visualized. The ascending aorta was not well visualized. Systemic Veins: The inferior vena cava was not well visualized, IVC inspiratory collapse is not well visualized. In comparison to the previous echocardiogram(s): Compared with study dated 07/13/2025, the patient is now s/p 34 mm Evolut Fx+ TAVR with reduction in aortic gradients. CONCLUSIONS: 1. Poorly visualized anatomical structures due to suboptimal image quality. 2. Left ventricular ejection fraction is normal calculated by Villalobos's biplane at 62%. 3. Echo findings are consistent with normal aortic valve prosthesis structure and function. 4. Unable to determine right ventricular systolic function. 5. No regional left ventricular wall motion abnormalities. 6. Compared with study dated 07/13/2025, the patient is now s/p 34 mm Evolut Fx+ TAVR with reduction in aortic gradients. QUANTITATIVE DATA SUMMARY: 2D MEASUREMENTS: Normal Ranges: LVEDV Index: 52 ml/m2 LV SYSTOLIC FUNCTION: Normal Ranges: EF-A4C View: 61 % (>=55%) EF-A2C View: 60 % EF-Biplane: 62 % LV EF Reported: 62 % AORTIC VALVE: Normal Ranges: AoV Vmax: 1.95 m/s (<=1.7m/s) AoV Peak P.2 mmHg (<20mmHg) AoV Mean P.0 mmHg (1.7-11.5mmHg) LVOT Max Clyde: 1.01 m/s (<=1.1m/s) AoV VTI: 39.30 cm (18-25cm) LVOT VTI: 22.20 cm LVOT Diameter: 2.00 cm (1.8-2.4cm) AoV Area, VTI: 1.77 cm2 (2.5-5.5cm2) AoV Area,Vmax: 1.63 cm2 (2.5-4.5cm2) AoV Dimensionless Index: 0.56 TRICUSPID VALVE/RVSP: Normal Ranges: Est. RA Pressure: 3 [id number] Marshall Avilez MD Electronically signed on 07/14/2025 at 10:27:47 PM Final CONCLUSIONS: 1. Poorly visualized anatomical structures due to suboptimal image quality. 2. Left ventricular ejection fraction is normal calculated by Villalobos's biplane at 62%. 3. Echo findings are consistent with normal aortic valve prosthesis structure and function. 4. Unable to determine right ventricular systolic function. 5. No regional left ventricular wall motion abnormalities. 6. Compared with study dated 07/13/2025, the patient is now s/p 34 mm Evolut Fx+ TAVR with reduction in aortic gradients. Normal [facility] US Heart TransthoracicOrdere d By: Marshall Avilez on 07-14-2025 Aortic Valve Area by Continuity of Peak Velocity 1.63 cm2 [facility] Work Phone: Aortic Valve Area by Continuity of VTI 1.77 cm2 [facility] Work Phone: AV mn grad 9 mmHg [facility] Work Phone: AV pk grad 15 mmHg [facility] Work Phone: AV pk clyde 1.95 m/s [facility] Work Phone: LV A4C EF 60.7 [facility] Work Phone: LV EF 62 % [facility] Work Phone: LVOT diam 2.00 cm [facility] Work Phone: [facility] Work Phone: US Heart Transthoracicon SYNGO SYNGO [facility] Work Phone: SYNGO SYNGO [facility] Work Phone: US Heart TransthoracicOrdere d By: Kenia Yoder on 07-14-2025 Aortic Valve Area by Continuity of Peak Velocity 1.00 cm2 [facility] Work Phone: Aortic Valve Area by Continuity of VTI 1.05 cm2 [facility] Work Phone: AV mn grad 22 mmHg [facility] Work Phone: AV pk grad 41 mmHg [facility] Work Phone: AV pk clyde 3.20 m/s [facility] Work Phone: LVOT diam 2.00 cm [facility] Work Phone: [facility] Work Phone: XR CHEST 1 VIEWon 07-14-2025 XR CHEST 1 VIEW Interpreted By: Darinel Noel, STUDY: XR CHEST 1 VIEW; 07/14/2025 5:19 am INDICATION: Signs/Symptoms:s/p valve procedure. COMPARISON: Chest radiograph dated 03/04/2025 ACCESSION NUMBER(S): [id number] ORDERING CLINICIAN: JOSEF DIAS FINDINGS: AP radiograph of the chest Limitations: Decreased lung volumes. Medical devices: GURJIT. Right internal jugular sheath is positioned within superior vena cava. A temporary cardiac pacemaker is positioned along the floor of the right ventricle. The heart is enlarged. Atheromatous ectasia of the thoracic aorta is noted. Pulmonary vascular congestion is noted accentuated by decreased lung volumes. No consolidations or significant effusions are noted. IMPRESSION: 1. Mild pulmonary vascular congestion compared to the previous study. Signed by: Darinel Zee 07/15/2025 8:41 AM Dictation workstation: [id number] [facility] Comment on above: Order Comment: POD 1 CXR XR Chest Single viewon 07-14 Radiology Study observation (narrative) [facility] Work Phone: ABO and Rh group panel (Bld) on 07-13-2025 ABO group Nom (Bld) A [facility] D Ag Ql (Bld) Positive [facility] ABO group Nom (Bld) A Normal [facility] Comment on above: Performed By: #### 4 548-4 #### MARIAM Stroud ([id number]) [facility] ([facility]) [address] [place], [place] [id number] D Ag Ql (Bld) Positive Normal [facility] Comment on above: Performed By: #### 4 548-4 #### MARIAM Stroud ([id number]) [facility] ([facility]) [address] [place], [place] [id number] Activated clotting timeon ACT Coag (Bld) [address] Comment on above: Result Comment: Targ et ACT range will vary based on the patient population, clinical status, and surgical intervention occurring. Performed By: #### 2 777-1 #### MYA DE LA CRUZ ([id number]) [facility] ([facility]) [address] [place] [address] ACT Coag (Bld) [address] Comment on above: Result Comment: Targ et ACT range will vary based on the patient population, clinical status, and surgical intervention occurring. Performed By: #### 2 777-1 #### MYA DE LA CRUZ ([id number]) [facility] ([facility]) [address] [place] [address] Basic metabolic 2000 panelon 07-13-2025 Anion gap [Moles/Vol] 15 mmol/L 10 - 2 0 mmol/L [facility] Calcium [Mass/Vol] 9.0 mg/dL 8.6 - 10. 6 mg/dL [facility] Chloride [Moles/Vol] 104 mmol/L 98 - 10 7 mmol/L [facility] CO2 [Moles/Vol] 23 mmol/L 21 - 32 mmol/L [facility] Creatinine [Mass/Vol] 2.27 mg/dL High 0.50 - 1.30 mg/dL [facility] GFR/1.73 sq M.predicted among non-blacks MDRD (S/P/Bld) [Vol rate/Area] 28 mL/min/{1.73_m2} Low - PINF [facility] Glucose [Mass/Vol] 152 mg/dL High 74 - 99 mg/dL [facility] Interpretation and review of laboratory results Abnormal [facility] Potassium [Moles/Vol] 3.4 mmol/L Low 3.5 - 5.3 mmol/L [facility] Sodium [Moles/Vol] 139 mmol/L 136 - 145 mmol/L [facility] Urea nitrogen [Mass/Vol] 35 mg/dL High 6 - 23 mg/dL [facility] Anion gap [Moles/Vol] 15 mmol/L Normal 10-20 [facility] Comment on above: Performed By: #### 4 548-4 #### MARIAM Stroud ([id number]) [facility] ([facility]) [address] [place] [address] Calcium [Mass/Vol] 9.0 mg/dL Normal 8.6-10.6 [facility] Comment on above: Performed By: #### 4 548-4 #### MARIAM Stroud ([id number]) [facility] ([facility]) [id number] [place] [address] Chloride [Moles/Vol] 104 mmol/L Normal 98-107 [facility] Comment on above: Performed By: #### 4 548-4 #### MARIAM Stroud ([id number]) [facility] ([facility]) [address] [place] [address] CO2 [Moles/Vol] 23 mmol/L Normal 21-32 [facility] Comment on above: Performed By: #### 4 548-4 #### MARIAM Stroud ([id number]) [facility] ([facility]) [address] [place] [address] Creatinine [Mass/Vol] 2.27 mg/dL High 0.50-1.30 [facility] Comment on above: Performed By: #### 4 548-4 #### MARIAM Stroud ([id number]) [facility] ([facility]) [id number] [place] [address] Glomerular filtration rate 28 mL/min/1.73m*2 Low >60 [facility] Comment on above: Result Comment: Calc ulations of estimated GFR are performed using the 2020 CKD-EPI Study Refit equation without the race variable for the IDMS-Traceable creatinine methods. https://jasn.asnjournals.org/content/early//ASN.286107 5604 Performed By: #### 4 548-4 #### MARIAM Stroud ([id number]) [facility] ([facility]) [id number] [place] [address] Glucose [Mass/Vol] 152 mg/dL High 74-99 [facility] Comment on above: Performed By: #### 4 548-4 #### MARIAM Stroud ([id number]) [facility] ([facility]) [address] [place] [address] Potassium [Moles/Vol] 3.4 mmol/L Low 3.5-5.3 [facility] Comment on above: Performed By: #### 4 548-4 #### MARIAM MARTINEZ L ([id number]) [facility] ([facility]) [address] [place] [address] Sodium [Moles/Vol] 139 mmol/L Normal 136-145 [facility] Comment on above: Performed By: #### 4 548-4 #### MARIAM MARTINEZ L ([id number]) [facility] ([facility]) [id number] [place] [address] Urea nitrogen [Mass/Vol] 35 mg/dL High 6-23 [facility] Comment on above: Performed By: #### 4 548-4 #### MARIAM Stroud ([id number]) [facility] ([facility]) [address] [place] [address] Blood type and Indirect anti body screen panel (Bld)Ordered By: Kirsten Truong on 07-13-2025 Blood group antibody screen Ql Negative [facility] Blood type and Indirect anti body screen panel (Bld)on 07-13-2025 Blood group antibody screen Ql Negative Normal [facility] Comment on above: Performed By: #### 2 777-1 #### ROQUE JONO ([id number]) [facility] ([facility]) [address] [place] [address] CARDIAC CATHETERIZATION PROC Shital 07-13-2025 CARDIAC CATHETERIZATION PROCEDURE [facility], Yield Improvement Engineer, [address] [place], [place] [id number] Cardiovascular Catheterization Report Patient Name: KITTY VERGARA Performing Physician: [id number] Barbosa MD Study Date: 07/13/2025 Verifying Physician: [id number] Barbosa MD MRN/PID: [id number] Qa Specialist/Co-Scrub: Ordering Provider: [id number] BARBOSA Date of 1940 Qa Specialist: /Age: years Gender: M Fellow: [id number] Camila Salinas MD Surgeon: Omar Howell MD Study: GURJIT - Transcatheter Aortic Valve Implantation Indications: Severe aortic stenosis. Informed Consent: Benefits, risks, and alternatives discussed with patient or authorized national sales representative and consent was obtained. Transcatheter Aortic Valve Replacement (TAVR): The right femoral artery was accessed using the transfemoral method. A 6 Fr sheath was inserted followed by the deployment of 2 Proglides. 18 F Sentrant. The left femoral artery was accessed percutaneously and a 6 Gabonese contralateral sheath was placed. A 6 Gabonese temporary pacemaker was inserted through the right jugular vein and advanced to the right ventricular apex. Adequate pacing thresholds were obtained. After crossing the stenotic aortic valve, balloon aortic valvuloplasty was performed with True Dilation 23. Evolut FX+ 34 valve was successfully deployed under rapid ventricular pacing at 160 BPM. Transthoracic echo performed post valve deployment revealed no mitral insufficiency and no central aortic insufficiency and trace/trivial paravalvular aortic insufficiency. No device related events. No bleeding events occurred during the procedure. No vascular access complications were revealed. Access site was closed using 2 ProGlide devices. Hemostasis was achieved in the left femoral artery using a ProGlide device. Temporary pacing wire was sutured in place. Hemo Personnel: + +----- ----+ Name Duty + +----- ----+ Dorothy Barbosa MD, MD 1 + +----- ----+ Fluoroscopy Time: + --------+-------+ Bedside Procedure Fluoro Dose: n/a mGy + --------+-------+ Hemodynamic Pressures: +----+ +- ---------+ + +------- +---------+ Site Date Time Phase Name Systolic mmHg Diastolic mmHg ED mmHg Mean mmHg +----+ +- ---------+ + +------- +---------+ AO 07/13/2025 Rest 198 75 125 6:13:05 PM +----+ +- ---------+ + +------- +---------+ AO 07/13/2025 Rest 184 84 116 6:28:09 PM +----+ +- ---------+ + +------- +---------+ LV 07/13/2025 Rest 227 1 20 6:28:09 PM +----+ +- ---------+ + +------- +---------+ AO 07/13/2025 Rest 191 72 112 6:28:17 PM +----+ +- ---------+ + +------- +---------+ LV 07/13/2025 Rest 225 1 26 6:28:17 PM +----+ +- ---------+ + +------- +---------+ Complications: No vascular access complications were revealed. No bleeding events occurred during the procedure. No device related events. Cardiac Cath Post Procedure Notes: Post Procedure Diagnosis: Successful GURJIT. Blood Loss: Estimated blood loss during the procedure was 10 mls. Specimens Removed: Number of specimen(s) removed: none. CONCLUSIONS: 1. Successful GURJIT using a Evolut FX+ 34. 2. ASA indefinately. 3. Patient was enrolled in a research study and data was included in the TVT Registry. ICD 10 Codes: Nonrheumatic aortic (valve) stenosis-I35.0 CPT Codes: GURJIT Perc,femoral-99163.62 [id number] Dorothy Barbosa MD Performing Physician Final CONCLUSIONS: 1. Successful GURJIT using a Evolut FX+ 34. 2. ASA indefinately. 3. Patient was enrolled in a research study and data was included in the TVT Registry. Normal [facility] CBC W Auto Differential pane l (Bld)on 07-13-2025 Basophils (Bld) [#/Vol] 0.06 10*3/uL [facility] Basophils/100 WBC (Bld) 0.5 % 0.0 - 2.0 % [facility] Eosinophils (Bld) [#/Vol] 0.56 10*3/uL High [facility] Eosinophils/100 WBC (Bld) 5.1 % 0.0 - 6.0 % [facility] Erythrocyte distribution width (RBC) [Ratio] 14.6 % High 11.5 - 14.5 % [facility] Hematocrit (Bld) [Volume fraction] 35.4 % Low 41.0 - 52.0 % [facility] Hemoglobin (Bld) [Mass/Vol] 11.3 g/dL Low 13.5 - 17.5 g/dL [facility] Immature granulocytes (Bld) [#/Vol] 0.05 10*3/uL [facility] Immature granulocytes/100 WBC (Bld) 0.5 % 0.0 - 0.9 % [facility] Interpretation and review of laboratory results Abnormal [facility] Lymphocytes (Bld) [#/Vol] 2.41 10*3/uL [facility] Lymphocytes/100 WBC (Bld) 22.1 % 13.0 - 44.0 % [facility] MCH (RBC) [Entitic mass] 30.0 pg 26.0 - 34.0 pg [facility] MCHC (RBC) [Mass/Vol] 31.9 g/dL Low 32.0 - 36.0 g/dL [facility] MCV (RBC) [Entitic vol] 94 fL 80 - 100 fL [facility] Monocytes (Bld) [#/Vol] 0.79 10*3/uL [facility] Monocytes/100 WBC (Bld) 7.2 % 2.0 - 10.0 % [facility] Neutrophils (Bld) [#/Vol] 7.05 10*3/uL High [facility] Neutrophils/100 WBC (Bld) 64.6 % 40.0 - 80.0 % [facility] Nucleated RBC/100 WBC (Bld) [Ratio] 0.0 % [facility] Platelets (Bld) [#/Vol] 142 10*3/uL Low [facility] RBC (Bld) [#/Vol] 3.77 10*6/uL Low [facility] WBC (Bld) [#/Vol] 10.9 10*3/uL [facility] Basophils (Bld) [#/Vol] 0.06 x10*3/uL Normal 0.00-0.10 [facility] Comment on above: Performed By: #### 4 548-4 #### MARIAM Stroud ([id number]) [facility] ([facility]) [address] [place] [address] Basophils/100 WBC (Bld) 0.5 % Normal 0.0-2.0 [facility] Comment on above: Performed By: #### 4 548-4 #### MARIAM Stroud ([id number]) [facility] [facility]) [address] [place] [address] Eosinophils (Bld) [#/Vol] 0.56 x10*3/uL High 0.00-0.40 [facility] Comment on above: Performed By: #### 4 548-4 #### MARIAM Stroud ([id number]) [facility] ([facility]) [address] [place] [address] 36928 Eosinophils/100 WBC (Bld) 5.1 % Normal 0.0-6.0 [facility] Comment on above: Performed By: #### 4 548-4 #### MARIAM Stroud ([id number]) [facility] ([facility]) [address] [place] [address]74 Erythrocyte distribution width (RBC) [Ratio] 14.6 % High 11.5-14.5 [facility] Comment on above: Performed By: #### 4 548-4 #### MARIAM Stroud ([id number]) [facility] ([facility]) [address] [place] [address] 30748 Hematocrit (Bld) [Volume fraction] 35.4 % Low 41.0-52.0 [facility] Comment on above: Performed By: #### 4 548-4 #### MARIAM Stroud ([id number]) [facility] ([facility]) [address] [place] [address] 76796 Hemoglobin (Bld) [Mass/Vol] 11.3 g/dL Low 13.5-17.5 [facility] Comment on above: Performed By: #### 4 548-4 #### MARIAM Stroud ([id number]) [facility] ([facility]) [address] [place] [address] 97633 Immature granulocytes (Bld) [#/Vol] 0.05 x10*3/uL Normal 0.00-0.50 [facility] Comment on above: Performed By: #### 4 548-4 #### MARIAM Stroud ([id number]) [facility] ([facility]) [address] [place] [address] 14966 Immature granulocytes/100 WBC (Bld) 0.5 % Normal 0.0-0.9 [facility] Comment on above: Result Comment: Eva ture Granulocyte Count (IG) includes promyelocytes, myelocytes and metamyelocytes but does not include bands. Percent differential counts (%) should be interpreted in the context of the absolute cell counts (cells/UL). Performed By: #### 4 548-4 #### MARIAM Stroud ([id number]) [facility] ([facility]) [address] [place] [address] Lymphocytes (Bld) [#/Vol] 2.41 x10*3/uL Normal 0.80-3.00 [facility] Comment on above: Performed By: #### 4 548-4 #### MARIAM Stroud ([id number]) [facility] ([facility]) [address] [place] [address] 03882 Lymphocytes/100 WBC (Bld) 22.1 % Normal 13.0-44.0 [facility] Comment on above: Performed By: #### 4 548-4 #### MARIAM Stroud ([id number]) [facility] ([facility]) [address] [place] [address] 78721 MCH (RBC) [Entitic mass] 30.0 pg Normal 26.0-34.0 [facility] Comment on above: Performed By: #### 4 548-4 #### MARIAM Stroud ([id number]) [facility] ([facility]) [id number] [place] [address] 15879 MCHC (RBC) [Mass/Vol] 31.9 g/dL Low 32.0-36.0 [facility] Comment on above: Performed By: #### 4 548-4 #### MARIAM Stroud ([id number]) [facility] ([facility]) [address] [place] [address] MCV (RBC) [Entitic vol] 94 fL Normal 80-100 [facility] Comment on above: Performed By: #### 4 548-4 #### MARIAM Stroud ([id number]) [facility] ([facility]) [address] [place] [address] 08653 Monocytes (Bld) [#/Vol] 0.79 x10*3/uL Normal 0.05-0.80 [facility] Comment on above: Performed By: #### 4 548-4 #### MARIAM Stroud ([id number]) [facility] ([facility]) [address] [place] [address] 12354 Monocytes/100 WBC (Bld) 7.2 % Normal 2.0-10.0 [facility] Comment on above: Performed By: #### 4 548-4 #### MARIAM Stroud ([id number]) [facility] ([facility]) [address] [place] [address] 79138 Neutrophils (Bld) [#/Vol] 7.05 x10*3/uL High 1.60-5.50 [facility] Comment on above: Result Comment: Perc ent differential counts (%) should be interpreted in the context of the absolute cell counts (cells/uL). Performed By: #### 4 548-4 #### MARIAM Stroud ([id number]) [facility] ([facility]) [address] [place] [address] 36375 Neutrophils/100 WBC (Bld) 64.6 % Normal 40.0-80.0 [facility] Comment on above: Performed By: #### 4 548-4 #### MARIAM Stroud ([id number]) [facility] ([facility]) [address] [place] [address] 12199 Nucleated RBC/100 WBC (Bld) [Ratio] 0.0 /100 WBCs Normal 0.0-0.0 [facility] Comment on above: Performed By: #### 4 548-4 #### MARIAM Stroud ([id number]) [facility] ([facility]) [address] [place] [address] 79610 Platelets (Bld) [#/Vol] 142 x10*3/uL Low 150-450 [facility] Comment on above: Performed By: #### 4 548-4 #### MARIAM Stroud ([id number]) [facility] ([facility]) [address] [place] [address] 77099 RBC (Bld) [#/Vol] 3.77 x10*6/uL Low 4.50-5.90 [facility] Comment on above: Performed By: #### 4 548-4 #### MARIAM Stroud ([id number]) [facility] ([facility]) [address] [place] [address] WBC (Bld) [#/Vol] 10.9 x10*3/uL Normal 4.4-11.3 [facility] Comment on above: Performed By: #### 4 548-4 #### MARIAM Stroud ([id number]) [facility] ([facility]) [address] [place] [address] Coagulation tissue factor in ducedon 07-13-2025 PT Coag (PPP) [Time] 13.6 s High 9.8-12.4 [facility] Comment on above: Performed By: #### 4 548-4 #### MARIAM Stroud ([id number]) [facility] ([facility]) [address] [place] [address] ECG 12-LEADon 07-13-2025 ECG 12-LEAD Ventricular Rate 70 Atrial Rate 70 P-R Interval 296 QRS Duration 158 Q-T Interval 502 QTC Calculation(Bazett) 542 P Goltry 96 R Goltry 20 T Goltry 171 QRS Count 12 Q Onset 202 P Onset 54 P Offset 117 T Offset 453 QTC Fredericia 528 Diagnosis Sinus rhythm with 1st degree AV block with occasional Premature ventricular complexes Left bundle branch block Abnormal ECG When compared with ECG of 13-JUL-2025 14:14, TX interval has increased Left bundle branch block is now Present Confirmed by Adriana Flores ([id number]) on 07/18/2025 9:15:56 PM Normal [facility] ECG 12-LEAD Ventricular Rate 74 Atrial Rate 74 P-R Interval 200 QRS Duration 86 Q-T Interval 366 QTC Calculation(Bazett) 406 P Goltry 84 R Goltry -3 T Goltry 150 QRS Count 13 Q Onset 218 P Onset 84 P Offset 148 T Offset 401 QTC Fredericia 392 Diagnosis Sinus rhythm with frequent Premature ventricular complexes Left ventricular hypertrophy with repolarization abnormality Abnormal ECG When compared with ECG of 05-MAR-2025 11:45, Premature ventricular complexes are now Present TX interval has decreased T wave inversion now evident in Inferior leads T wave inversion now evident in Anterolateral leads QT has shortened Confirmed by Felix Hernandez ([id number]) on 07/14/2025 9:40:02 AM Normal [facility] Glucose Test strip manual (B ld) [Mass/Vol]on 07-13-2025 Glucose [Mass/Vol] 177 mg/dL High 74 - 99 mg/dL [facility] Interpretation and review of laboratory results Abnormal [facility] Glucose [Mass/Vol] 177 mg/dL High 74-99 [facility] Comment on above: Performed By: #### 4 548-4 #### MARIAM Stroud ([id number]) [facility] ([facility]) [address] [place] [address] Magnesiumon 07-13-2025 Magnesium [Mass/Vol] 2.14 mg/dL 1.60 - 2.40 mg/dL [facility] Magnesium [Mass/Vol] 2.14 mg/dL Normal 1.60-2.40 [facility] Comment on above: Performed By: #### 4 548-4 #### MARIAM Stroud ([id number]) [facility] ([facility]) [address] [place], [place] [id number] Magnesium [Mass/Vol]on 07-13 Interpretation and review of laboratory results Normal [facility] PT Coag (PPP) [Time]on 07-13 INR Coag (PPP) [Relative time] 1.2 {INR} High 0.9 - 1.1 [facility] Interpretation and review of laboratory results Abnormal [facility] INR Coag (PPP) [Relative time] 1.2 High 0.9-1.1 [facility] Comment on above: Performed By: #### 4 548-4 #### MARIAM Stroud ([id number]) [facility] ([facility]) [address] [place] [address] 72281 Protime-INRon 07-13-2025 PT Coag (PPP) [Time] 13.6 s High [facility] TRANSTHORACIC ECHO (TTE) LINDSEY Alba 07-13-2025 TRANSTHORACIC ECHO (TTE) LIMITED TRANSTHORACIC ECHOCARDIOGRAM REPORT Patient Name: KITTY VERGARA Reading Physician: [id number] Kenia Yoder MD Study Date: 07/13/2025 Ordering Provider: [id number] JOSEF DIAS MRN/PID: [id number] Fellow: Nurse: Date of /Age: 1007/06/1940 Manager Garden: Vniicio galeano RDCS Gender assigned at Additional Staff: : Height: 177.80 cm Admit Date: Weight: 105.24 kg Admission Status: Inpatient - Routine BSA / BMI: 2.22 m2 / 33.29 kg/m2 Blood Pressure: 130/62 mmHg Department Location: [facility] Yield Improvement Engineer Study Type: TRANSTHORACIC ECHO (TTE) LIMITED Diagnosis/ICD: Nonrheumatic aortic (valve) stenosis-I35.0 Indication: TAVR Periprocedure CPT Code: Echo Limited-69270; Doppler Limited-66600; Color Doppler-75006 Patient History: Valve Disorders: Aortic Stenosis. Diabetes: Yes Pertinent History: HTN, Hyperlipidemia, CAD and LE Edema. Bradycardia, GERD, CKD IV, Cardiac Stent. Study Detail: The following Echo studies were performed: 2D, M-Mode, Doppler and color flow. Technically challenging study due to patient lying in supine position. PHYSICIAN INTERPRETATION: Left Ventricle: The left ventricle was not well visualized. The left ventricular ejection fraction could not be measured. The left ventricular cavity size was not assessed. Left ventricular diastolic filling was not assessed. LV appear to have grossly normal systolic function without obvious regional wall motion abnormalities though not well seen. Unable to estimate LVEF. Left Atrium: The left atrial size was not assessed. Right Ventricle: The right ventricle was not well visualized. Unable to determine right ventricular systolic function. Right Atrium: The right atrial size was not well visualized. Aortic Valve: The aortic valve was not well visualized. The aortic valve area by VTI is 1.05 cm?? with a peak velocity of 3.20 m/s. The peak and mean gradients are 41 mmHg and 22 mmHg, respectively with a dimensionless index of 0.33. There is moderate to severe aortic valve cusp calcification. There is no evidence of aortic valve regurgitation. Baseline- AV not well seen though appears to be moderate to severely calcified/thickened with gradients of 41/22mmHg and DI of 0.33 with no AI. The DI is consistent with moderate though gradients are lower than expected for that degree of . Proceeded to TAVR. Mitral Valve: The mitral valve is normal in structure. There is moderate mitral annular calcification. There is trace mitral valve regurgitation. Tricuspid Valve: The tricuspid valve was not well visualized. Tricuspid regurgitation was not assessed. Pulmonic Valve: The pulmonic valve is not well visualized. Pulmonic valve regurgitation was not assessed. Pericardium: Pericardial effusion was not well visualized. Aorta: The aortic root is abnormal. There is mild dilatation of the aortic root. Systemic Veins: The inferior vena cava was not assessed, IVC inspiratory collapse was not assessed. In comparison to the previous echocardiogram(s): Compared with study dated 10/20/2024, [facility], the prior AV gradients were 73/44mmHg with DI of 0.23 which is consistent with severe and there was no AI at that time. Today's gradients are lower than on prior exam likely due to technically difficult images with limited interrogation in that the LV systolic function appears to be preserved today. Prior LVEF was 67%. Post Transcatheter Aortic Valve Placement (TAVR): The peak instantaneous gradient of the aortic valve is 6.9 mmHg. The mean gradient of the aortic valve is 4.0 mmHg. There is no prosthetic aortic valve regurgitation. There is no nola-prosthetic aortic valve regurgitation. CONCLUSIONS: 1. Poorly visualized anatomical structures due to suboptimal image quality. 2. The left ventricle was not well visualized. The left ventricular ejection fraction could not be measured. 3. LV appear to have grossly normal systolic function without obvious regional wall motion abnormalities though not well seen. Unable to estimate LVEF. 4. Unable to determine right ventricular systolic function. 5. There is moderate mitral annular calcification. 6. Baseline- AV not well seen though appears to be moderate to severely calcified/thickened with gradients of 41/22mmHg and DI of 0.33 with no AI. The DI is consistent with moderate though gradients are lower than expected for that degree of . Proceeded to TAVR. 7. S/p 34mm Medtronic Evolut TAVR with gradients of 6.9/4mmHg and no obvious AI. 8. Compared with study dated 10/20/2024, [facility], the prior AV gradients were 73/44mmHg with DI of 0.23 which is consistent with severe and there was no AI at that time. Today's gradients are lower than on prior exam likely due to technically difficult images with limited interrogation in that the LV systolic function appears to be preserved today. Prior LVEF was 67%. QUANTITATIVE DATA SUMMARY: (more content not included)... Normal [facility] BASIC METABOLIC PANEL WITH A NIJOHNATHAN GAPon 07-10-2025 Calcium [Mass/Vol] 8.9 mg/dL Normal 8.6-10.3 [facility] Comment on above: Performed By: #### 1 759, 8838, 67642 #### [facility] [address], [address] [place] [address] Ring Stamper: Delgado Miller MD Chloride [Moles/Vol] 103 mmol/L Normal 98-110 [facility] Comment on above: Performed By: #### 1 Juan, 7336, 44781 #### [facility] [address], [address] [place] [address] Ring Stamper: Delgado Miller MD CO2 [Moles/Vol] 24 mmol/L Normal 20-32 [facility] Comment on above: Performed By: #### 1 Juan, 8847, 42227 #### [facility] [place] [address] Ring Stamper: Delgado Miller MD Creatinine [Mass/Vol] 2.47 mg/dL High 0.70-1.[address] [facility] Comment on above: Performed By: #### 1 Margarita9, 8847, 58709 #### [facility] [address], [address] [place] [address] Ring Stamper: Delgado Miller MD ELECTROLYTE BALANCE 13 mmol/L (calc) Normal 7-17 [facility] Comment on above: Performed By: #### 1 Juan, 8847, 76667 #### [facility] [address], [address] [place] [address] Ring Stamper: Delgado Miller MD GFR/1.73 sq M.predicted among non-blacks MDRD (S/P/Bld) [Vol rate/Area] 25 mL/min/{1.73_m2} Low > OR = 60 [facility] Comment on above: Performed By: #### 1 759, 8847, 70538 #### [facility] [place] [address] Ring Stamper: Delgado Miller MD Glucose [Mass/Vol] 150 mg/dL High 65-99 [facility] Comment on above: Result Comment: Fasting reference interval For someone without known diabetes, a glucose value >125 mg/dL indicates that they may have diabetes and this should be confirmed with a follow-up test. Performed By: #### 1 Juan, 8847, 84105 #### [facility] [place] [address] Ring Stamper: Delgado Miller MD Potassium [Moles/Vol] 4.1 mmol/L Normal 3.5-5.[address] [facility] Comment on above: Performed By: #### 1 759, 8847, 42354 #### [facility] [place] [address] Ring Stamper: Delgado Miller MD Sodium [Moles/Vol] 140 mmol/L Normal 135-146 [facility] Comment on above: Performed By: #### 1 759, 8847, 84266 #### [facility] [place] [address] Ring Stamper: Delgado Miller MD Urea nitrogen [Mass/Vol] 32 mg/dL High 7-25 [facility] Comment on above: Performed By: #### 1 759, 8847, 53953 #### [facility] [place] [address] Ring Stamper: Delgado Miller MD Urea nitrogen/Creatinine [Mass ratio] 13 mg/mg Normal 6-22 [facility] Comment on above: Performed By: #### 1 Juan, 0147, 44308 #### [facility] [place] [address] Ring Stamper: Delgado Miller MD CBC (H/H, RBC, INDICES, WBC, PLT)on 07-10-2025 Erythrocyte distribution width (RBC) [Ratio] 14.8 % Normal 11.0-15.0 [facility] Comment on above: Performed By: #### 1 979, 8811, 41633 #### [facility] [place] [address] Ring Stamper: Delgado Miller MD Hematocrit (Bld) [Volume fraction] 39.2 % Normal 38.5-50.0 [facility] Comment on above: Performed By: #### 1 589, 2806, 71259 #### [facility] [place] [address] Ring Stamper: Delgado Miller MD Hemoglobin (Bld) [Mass/Vol] 12.7 g/dL Low 13.2-17.1 [facility] Comment on above: Performed By: #### 1 619, 2033, 21817 #### [facility] [place] [address] Ring Stamper: Delgado Miller MD MCH (RBC) [Entitic mass] 30.2 pg Normal 27.0-33.0 [facility] Comment on above: Performed By: #### 1 039, 2899, 34463 #### [facility] [place] [address] Ring Stamper: Delgado Miller MD MCHC (RBC) [Mass/Vol] 32.4 g/dL Normal 32.0-36.[address] [facility] Comment on above: Result Comment: For adults, a slight decrease in the calculated MCHC value (in the range of 30 to 32 g/dL) is most likely not clinically significant; however, it should be interpreted with caution in correlation with other red cell parameters and the patient's clinical condition. Performed By: #### 1 419, 9589, 57672 #### [facility] [place] [address] Ring Stamper: Delgado Miller MD MCV (RBC) [Entitic vol] 93.3 fL Normal 80.0-100.0 [facility] Comment on above: Performed By: #### 1 759, 8847, 96009 #### [facility] [place] [address] Ring Stamper: Delgado Miller MD Platelet mean volume (Bld) [Entitic vol] 12.1 fL Normal 7.5-12.5 [facility] Comment on above: Performed By: #### 1 759, 8847, 59397 #### [facility] [place] [address] Ring Stamper: Delgado Miller MD Platelets (Bld) [#/Vol] 167 10*3/uL Normal 140-400 [facility] Comment on above: Performed By: #### 1 759, 8847, 72182 #### [facility] [place] [address] Ring Stamper: Delgado Miller MD RBC (Bld) [#/Vol] 4.20 10*6/uL Normal 4.20-5.80 [facility] Comment on above: Performed By: #### 1 759, 8847, 39601 #### [facility] [place] [address] Ring Stamper: Delgado Miller MD WBC (Bld) [#/Vol] 8.9 10*3/uL Normal 3.8-10.8 [facility] Comment on above: Performed By: #### 1 759, 8847, 57465 #### [facility] [place] [address] Ring Stamper: Delgado Miller MD PROTHROMBIN TIME-INRon 07-10 INR Coag (PPP) [Relative time] 1.1 {INR} Normal [facility] Comment on above: Result Comment: Refe rence Range 0.9-1.1 Moderate-intensity Warfarin Therapy 2.0-3.0 Higher-intensity Warfarin Therapy 3.0-4.0 Performed By: #### 1 759, 5115, 21320 #### [facility] [address], [address] [place] [address] Ring Stamper: Delgado Miller MD PT Coag (PPP) [Time] 11.0 s Normal 9.0-11.5 [facility] Comment on above: Result Comment: For additional information, please refer to http://education.YupiCall/faq/BWI436 (This link is being provided for informational/ educational purposes only.) Performed By: #### 1 759, 4325, 86777 #### [facility] [address], [address] [place] [address] Ring Stamper: Delgado Miller MD CT Chest and Abdomen and Pel vis WO contraston 06-16-2025 1. Moderate atherosclerotic changes involving the thoracoabdominal aorta and its branches. Please note that, the assessment of vascular patency is not possible in absence of intravenous contrast. 2. Severe calcifications of the aortic valve correlating with history of aortic stenosis. 3. Severe atherosclerotic calcifications with coronary artery stents. 4. There is bibasilar subpleural reticulation/atelectati c changes most likely postinfectious/inflamma tory in nature MACRO: None Signed by: Kapil Valera 06/16/2025 1:47 PM Dictation workstation: [id number] [facility] Interpreted By: Kapil Valera, STUDY: CT TAVR NO CONTRAST CHEST ABDOMEN PELVIS; 06/16/2025 10:15 am INDICATION: Signs/Symptoms:Aortic Stenosis. ,I35.0 Nonrheumatic aortic (valve) stenosis COMPARISON: None. ACCESSION NUMBER(S): [id number] ORDERING CLINICIAN: DOROTHY BARBOSA TECHNIQUE: Multi-detector CT technology was employed. Axial sequential multidetector acquisition of the chest with prospective EKG-gating and minimal slice thickness was performed without the intravenous administration of contrast material. Subsequently, helically acquired unenhanced CT examination of the abdomen and pelvis was obtained. FINDINGS: Potential study limitations: Absence of intravenous contrast precludes assessment of vascular patency. THORACIC AORTA AND HEART: The thoracic aorta normal in course and caliber. The sinotubular junction is preserved. Within limitations from absence of intravenous contrast, there is no evidence for acute aortic pathology, such as intramural hematoma, or contained rupture. The arch vessel branching pattern is conventional. All of the arch branch vessels appear normal in caliber in their proximal portions. Normal atrioventricular and ventriculoarterial concordance. The cardiac chambers are not enlarged. There are significant calcifications of aortic valve, in keeping with patients history of aortic stenosis. Normal coronary artery origins. There is moderate coronary artery calcifications and LAD coronary artery stent.. There is no pericardial effusion seen. PULMONARY ARTERIES Main pulmonary artery and its branches are normal in caliber (MPA- cm). Lack of contrast opacification of the pulmonary arteries precludes assessment of pulmonary embolism. SYSTEMIC AND PULMONARY VEINS Normal systemic venous and pulmonary venous return. The SVC and IVC are of normal caliber. Normal pulmonary venous anatomy. CHEST: The visualized thyroid gland is within normal limits. No evidence of thoracic lymphadenopathy by CT criteria. Esophagus appears within normal limits as seen. The trachea and central airways are patent. No endobronchial lesion is seen. There are coarse bibasilar opacities with reticulation. There is calcified and noncalcified subcentimeter right lower and middle lobe nodules most likely granulomas. ABDOMINAL AORTA: The abdominal aorta and its branches demonstrate scattered calcified plaques. The celiac artery, SMA, NIKI and bilateral renal arteries are normal in caliber. There is moderate atherosclerotic calcifications of the abdominal aorta and its branches. ABDOMEN AND PELVIS: HEPATOBILIARY SYSTEM: The liver is normal in size. There is no evidence of focal liver lesion GALLBLADDER: The gallbladder is nondistended without evidence of radiopaque stones. The intrahepatic and extrahepatic bile ducts are not dilated. PANCREAS: The pancreas is within normal limits.No suspicious focal lesions identified. SPLEEN: The spleen is normal in size.There are splenic calcifications. ADRENAL GLANDS: The bilateral adrenal glands are unremarkable in appearance. KIDNEYS AND URETERS: The bilateral kidneys are normal in size and enhance symmetrically.No focal renal lesion is identified.There is no evidence of hydroureteronephrosis or nephroureterolithiasis. GI TRACT: The stomach is unremarkable. The small bowel is normal in caliber without evidence of focal wall thickening or obstruction. The appendix is visualized and appears normal. There is no evidence of focal wall thickening or dilatation of the large bowel. PERITONEUM/RETROPERITON EUM/LYMPH NODES: No abdominopelvic lymphadenopathy is present. There is no focal fluid collection, free intraperitoneal air, or ascites. GENITOURINARY SYSTEM: Within the pelvis, the urinary bladder appears unremarkable. There are no pelvic masses. BODY WALL AND OSSEOUS STRUCTURES: Soft tissues of body wall are within normal limits. No acute osseous pathology.There are no suspicious osseous lesions. MMODAL Radiology Study observation (narrative) [facility] Work Phone: CT Chest and Abdomen and Pel vis WO contrastOrdered By: Raven Valera on 06-16-2025 [facility] Work Phone: CT TAVR NO CONTRAST CHEST AB DOMEN PELVISon 06-16-2025 CT TAVR NO CONTRAST CHEST ABDOMEN PELVIS Interpreted By: Kapil Valera, STUDY: CT TAVR NO CONTRAST CHEST ABDOMEN PELVIS; 06/16/2025 10:15 am INDICATION: Signs/Symptoms:Aortic Stenosis. ,I35.0 Nonrheumatic aortic (valve) stenosis COMPARISON: None. ACCESSION NUMBER(S): [id number] ORDERING CLINICIAN: ODROTHY BARBOSA TECHNIQUE: Multi-detector CT technology was employed. Axial sequential multidetector acquisition of the chest with prospective EKG-gating and minimal slice thickness was performed without the intravenous administration of contrast material. Subsequently, helically acquired unenhanced CT examination of the abdomen and pelvis was obtained. FINDINGS: Potential study limitations: Absence of intravenous contrast precludes assessment of vascular patency. THORACIC AORTA AND HEART: The thoracic aorta normal in course and caliber. The sinotubular junction is preserved. Within limitations from absence of intravenous contrast, there is no evidence for acute aortic pathology, such as intramural hematoma, or contained rupture. The arch vessel branching pattern is conventional. All of the arch branch vessels appear normal in caliber in their proximal portions. Normal atrioventricular and ventriculoarterial concordance. The cardiac chambers are not enlarged. There are significant calcifications of aortic valve, in keeping with patients history of aortic stenosis. Normal coronary artery origins. There is moderate coronary artery calcifications and LAD coronary artery stent.. There is no pericardial effusion seen. PULMONARY ARTERIES Main pulmonary artery and its branches are normal in caliber (MPA- cm). Lack of contrast opacification of the pulmonary arteries precludes assessment of pulmonary embolism. SYSTEMIC AND PULMONARY VEINS Normal systemic venous and pulmonary venous return. The SVC and IVC are of normal caliber. Normal pulmonary venous anatomy. CHEST: The visualized thyroid gland is within normal limits. No evidence of thoracic lymphadenopathy by CT criteria. Esophagus appears within normal limits as seen. The trachea and central airways are patent. No endobronchial lesion is seen. There are coarse bibasilar opacities with reticulation. There is calcified and noncalcified subcentimeter right lower and middle lobe nodules most likely granulomas. ABDOMINAL AORTA: The abdominal aorta and its branches demonstrate scattered calcified plaques. The celiac artery, SMA, NIKI and bilateral renal arteries are normal in caliber. There is moderate atherosclerotic calcifications of the abdominal aorta and its branches. ABDOMEN AND PELVIS: HEPATOBILIARY SYSTEM: The liver is normal in size. There is no evidence of focal liver lesion GALLBLADDER: The gallbladder is nondistended without evidence of radiopaque stones. The intrahepatic and extrahepatic bile ducts are not dilated. PANCREAS: The pancreas is within normal limits.No suspicious focal lesions identified. SPLEEN: The spleen is normal in size.There are splenic calcifications. ADRENAL GLANDS: The bilateral adrenal glands are unremarkable in appearance. KIDNEYS AND URETERS: The bilateral kidneys are normal in size and enhance symmetrically.No focal renal lesion is identified.There is no evidence of hydroureteronephrosis or nephroureterolithiasis. GI TRACT: The stomach is unremarkable. The small bowel is normal in caliber without evidence of focal wall thickening or obstruction. The appendix is visualized and appears normal. There is no evidence of focal wall thickening or dilatation of the large bowel. PERITONEUM/RETROPERITON EUM/LYMPH NODES: No abdominopelvic lymphadenopathy is present. There is no focal fluid collection, free intraperitoneal air, or ascites. GENITOURINARY SYSTEM: Within the pelvis, the urinary bladder appears unremarkable. There are no pelvic masses. BODY WALL AND OSSEOUS STRUCTURES: Soft tissues of body wall are within normal limits. No acute osseous pathology.There are no suspicious osseous lesions. IMPRESSION: 1. Moderate atherosclerotic changes involving the thoracoabdominal aorta and its branches. Please note that, the assessment of vascular patency is not possible in absence of intravenous contrast. 2. Severe calcifications of the aortic valve correlating with history of aortic stenosis. 3. Severe atherosclerotic calcifications with coronary artery stents. 4. There is bibasilar subpleural reticulation/atelectati c changes most likely postinfectious/inflamma tory in nature MACRO: None Signed by: Kapil Valera 06/16/2025 1:47 PM Dictation workstation: [id number] Normal [facility] Measure post void residualon 04-16-2025 PVR = 2 ml [facility] Work Phone: [facility] Work Phone: Glucose Test strip manual (B ld) [Mass/Vol]on 03-30-2025 Glucose [Mass/Vol] 119 mg/dL High 74 - 99 mg/dL [facility] Interpretation and review of laboratory results Abnormal [facility] Glucose [Mass/Vol] 119 mg/dL High 74-99 [facility] Comment on above: Performed By: #### 2 341-6 #### NA ROSARIO ([id number]) [facility] ([facility] [address] [place] [address] Glucose [Mass/Vol] 132 mg/dL High 74 - 99 mg/dL [facility] Interpretation and review of laboratory results Abnormal [facility] Glucose [Mass/Vol] 132 mg/dL High 74-99 [facility] Comment on above: Performed By: #### 2 341-6 #### NA ROSARIO ([id number]) [facility] ([facility] [address] [place] [address] Surgical pathology studyon 0 03-30-2025 Surgical pathology study Pathology report.total SEE COMMENT Surgical Pathology Case: [id number] Authorizing Provider: Matilde Regan MD Collected: 03/30/2025 1226 Ordering Location: [facility] [place] OR Received: 03/30/2025 1450 Pathologist: Ever Mae MD Specimen: PROSTATE HOLEP, prostate tissue Path report.final diagnosis SEE COMMENT A. 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 at 1059 EDT Laboratory comment By the signature on this report, the individual or group listed as making the Final Interpretation/Diagnosi s certifies that they have reviewed this case. 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 Received in formalin, labeled with the patient's name and hospital number and ???prostate tissue???, are multiple irregular fragments of [color], rubbery tissue aggregating to 9 x 8.9 x 2.4 cm and weighing in aggregate 54.4 grams. Also received in the specimen is a plastic filtering apparatus. Regional Sales Coordinator sections are submitted in 12 cassettes. (ADP) Gross description performed at: [facility] Department of Pathology [address] [place] [address] Normal [facility] Comment on above: Order Comment: Pre-o p diagnosis: 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, N13.8] Urinalysis complete W Reflex Culture panel (U)on 03-26-2025 Appearance (U) Clear Normal Clear [facility] Comment on above: Performed By: #### 5 8077-9 #### NA ROSARIO ([id number]) [facility] ([facility] [address] [place] [address] Bacteria Auto (Urine sed) [#/Area] 1+ /HPF Abnormal NONE SEEN [facility] Comment on above: Performed By: #### 5 8077-9 #### NA ROSARIO ([id number]) [facility] ([facility] [address] [place] [address] Bilirubin (U) [Mass/Vol] Negative Normal NEGATIVE [facility] Comment on above: Performed By: #### 5 8077-9 #### NA ROSARIO ([id number]) [facility] ([facility] [address] [place] [address] Color (U) Light-Yellow Normal Light-Yellow , Yellow, Dark-Yellow [facility] Comment on above: Performed By: #### 5 8077-9 #### NA ROSARIO ([id number]) [facility] ([facility] [address] [place], [place] [id number] Glucose Auto test strip (U) [Mass/Vol] 500 (3+) Abnormal Normal [facility] Comment on above: Performed By: #### 5 8077-9 #### NA ROSARIO ([id number]) [facility] ([facility] [address] [place] [address] Ketones (U) [Mass/Vol] Negative Normal NEGATIVE [facility] Comment on above: Performed By: #### 5 8077-9 #### NA ROSARIO ([id number]) [facility] ([facility] [address] [place] [address] Leukocyte esterase Auto test strip Ql (U) Negative Normal NEGATIVE [facility] Comment on above: Performed By: #### 5 8077-9 #### NA ROSARIO ([id number]) [facility] ([facility] [address] [place], [place] [address] Nitrite Auto test strip Ql (U) Negative Normal NEGATIVE [facility] Comment on above: Performed By: #### 5 8077-9 #### NA ROSARIO ([id number]) [facility] ([facility]) [address] [place], [place] [address] pH (U) 5.0 [pH] Normal 5.0, 5.5, 6.0, 6.5, 7.0, 7.5, 8.0 [facility] Comment on above: Performed By: #### 5 8077-9 #### NA ROSARIO ([id number]) [facility] ([facility] [address] [place] [address] Protein (U) [Mass/Vol] 10 (TRACE) Normal NEGATIVE, 10 (TRACE), 20 (TRACE) [facility] Comment on above: Performed By: #### 5 8077-9 #### NA ROSARIO ([id number]) [facility] ([facility] [address] [place] [address] RBC (U) [#/Vol] 0.06 (1+) Abnormal NEGATIVE [facility] Comment on above: Performed By: #### 5 8077-9 #### NA ROSARIO ([id number]) [facility] ([facility]) [address] [place] [address] RBC Auto (Urine sed) [#/Area] 1-2 Normal NONE, 1-2, 3-5 [facility] Comment on above: Performed By: #### 5 8077-9 #### NA ROSARIO ([id number]) [facility] ([facility] [address] [place] [address] Specific gravity (U) [Rel density] 1.008 Normal 1.005-1.035 [facility] Comment on above: Performed By: #### 5 8077-9 #### NA ROSARIO ([id number]) [facility] ([facility] [address] [place], [place] [address] Urobilinogen (U) [Mass/Vol] Normal Normal Normal [facility] Comment on above: Performed By: #### 5 8077-9 #### NA ROSARIO ([id number]) [facility] ([facility] [address] [place] [id number] WBC Auto (Urine sed) [#/Area] 1-5 Normal 1-5, NONE [facility] Comment on above: Performed By: #### 5 8077-9 #### NA ROSARIO ([id number]) [facility] ([facility] [address] [place], [place] [address] Bacteria identifiedon 2024 Bacteria identified Cx Nom (U) Test: Urine Culture Specimen Source: Indwelling (De Oliveira) Catheter Specimen Type: Urine Specimen Date: 03/17/2025 1401 Result Date: 03/19/2025 1126 Result Status: Final result Abnormal: No Resulting Lab: [facility] [address] [place] [address] CULTURE Growth indicates contamination with periurethral franci. Repeat culture if clinically indicated. Normal [facility] Comment on above: Performed By: #### 6 30-4 ####MARIAM Stroud ([id number])[facility] ([facility])[address] [place] [address] Urinalysis complete W Reflex Culture panel (U)Ordered By: Kenya Petersen on 03-17-2025 Appearance (U) Clear Clear [facility] Bilirubin (U) [Mass/Vol] Negative NEGATIVE mg/dL [facility] Color (U) Light-Yellow Light-Yellow , Yellow, Dark-Yellow [facility] Glucose Auto test strip (U) [Mass/Vol] OVER (4+) Abnormal Normal mg/dL [facility] Interpretation and review of laboratory results Abnormal [facility] Ketones (U) [Mass/Vol] Negative NEGATIVE mg/dL [facility] Leukocyte esterase Auto test strip Ql (U) 75 Tenzin/uL Abnormal NEGATIVE [facility] Nitrite Auto test strip Ql (U) 1+ Abnormal NEGATIVE [facility] pH (U) 6 [pH] 5.0, 5.5, 6.0, 6.5, 7.0, 7.5, 8.0 [facility] Protein (U) [Mass/Vol] 10 (TRACE) NEGATIVE, 10 (TRACE), 20 (TRACE) mg/dL [facility] RBC (U) [#/Vol] Negative NEGATIVE mg/dL [facility] Specific gravity (U) [Rel density] 1.025 1.005 - 1.035 [facility] Urobilinogen (U) [Mass/Vol] Normal Normal mg/dL [facility] SG by alternate meth od= 1.025 OVER is reported when the result is greater than the clinically reportable range. [facility] Urinalysis complete W Reflex Culture panel (U)on 03-17-2025 Appearance (U) Clear Normal Clear [facility] Comment on above: Order Comment: SG by alternate method= 1.025OVER is reported when the result is greater than the clinically reportable range. Performed By: #### 5 8077-9 ####MYA DE LA CRUZ ([id number])[facility] ([facility])[address] [place] [address] Bilirubin (U) [Mass/Vol] Negative Normal NEGATIVE [facility] Comment on above: Order Comment: SG by alternate method= 1.025OVER is reported when the result is greater than the clinically reportable range. Performed By: #### 5 8077-9 ####MYA DE LA CRUZ ([id number])[facility] ([facility])[address] [place] [address] Color (U) Light-Yellow Normal Light-Yellow , Yellow, Dark-Yellow [facility] Comment on above: Order Comment: SG by alternate method= 1.025OVER is reported when the result is greater than the clinically reportable range. Performed By: #### 5 8077-9 ####MYA DE LA CRUZ ([id number])[facility] ([facility])[address] [place] [address] Glucose Auto test strip (U) [Mass/Vol] OVER (4+) Abnormal Normal [facility] Comment on above: Order Comment: SG by alternate method= 1.025OVER is reported when the result is greater than the clinically reportable range. Performed By: #### 5 8077-9 ####MYA DE LA CRUZ ([id number])[facility] ([facility])[address] [place] [address] Ketones (U) [Mass/Vol] Negative Normal NEGATIVE [facility] Comment on above: Order Comment: SG by alternate method= 1.025OVER is reported when the result is greater than the clinically reportable range. Performed By: #### 5 8077-9 ####MYA DE LA CRUZ ([id number])[facility] ([facility])[address] [place] [address] Leukocyte esterase Auto test strip Ql (U) 75 Tenzin/uL Abnormal NEGATIVE [facility] Comment on above: Order Comment: SG by alternate method= 1.025OVER is reported when the result is greater than the clinically reportable range. Performed By: #### 5 8077-9 ####MYA DE LA CRUZ ([id number])[facility] ([facility])[address] [place] [address] Nitrite Auto test strip Ql (U) 1+ Abnormal NEGATIVE [facility] Comment on above: Order Comment: SG by alternate method= 1.025OVER is reported when the result is greater than the clinically reportable range. Performed By: #### 5 8077-9 ####MYA DE LA CRUZ ([id number])[facility] ([facility])[address] [place] [address] pH (U) 6.0 [pH] Normal 5.0, 5.5, 6.0, 6.5, 7.0, 7.5, 8.0 [facility] Comment on above: Order Comment: SG by alternate method= 1.025OVER is reported when the result is greater than the clinically reportable range. Performed By: #### 5 8077-9 ####MYA DE LA CRUZ ([id number])[facility] ([facility])[address] [place] [address] Protein (U) [Mass/Vol] 10 (TRACE) Normal NEGATIVE, 10 (TRACE), 20 (TRACE) [facility] Comment on above: Order Comment: SG by alternate method= 1.025OVER is reported when the result is greater than the clinically reportable range. Performed By: #### 5 8077-9 ####MYA DE LA CRUZ ([id number])[facility] ([facility])[address] [place] [address] RBC (U) [#/Vol] Negative Normal NEGATIVE [facility] Comment on above: Order Comment: SG by alternate method= 1.025OVER is reported when the result is greater than the clinically reportable range. Performed By: #### 5 8077-9 ####MYA DE LA CRUZ ([id number])[facility] ([facility])[address] [place] [address] Specific gravity (U) [Rel density] 1.025 Normal 1.005-1.035 [facility] Comment on above: Order Comment: SG by alternate method= 1.025OVER is reported when the result is greater than the clinically reportable range. Performed By: #### 5 8077-9 ####MYA DE LA CRUZ ([id number])[facility] ([facility])[address] [place] [address] Urobilinogen (U) [Mass/Vol] Normal Normal Normal [facility] Comment on above: Order Comment: SG by alternate method= 1.025OVER is reported when the result is greater than the clinically reportable range. Performed By: #### 5 8077-9 ####MYA DE LA CRUZ ([id number])[facility] ([facility])[address] [place], [place] [address] Urinalysis microscopic panel Auto Ql (U)on 03-17-2025 Bacteria Auto (Urine sed) [#/Area] 1+ Abnormal NONE SEEN /HPF [facility] Interpretation and review of laboratory results Abnormal [facility] Leukocyte clumps Auto (Urine sed) [#/Area] RARE Reference range not established. /HPF [facility] Mucus Auto (Urine sed) [#/Area] FEW Reference range not established. /LPF [facility] RBC Auto (Urine sed) [#/Area] 1-2 NONE, 1-2, 3-5 /HPF [facility] WBC Auto (Urine sed) [#/Area] 21-50 Abnormal 1-5, NONE /HPF [facility] Bacteria Auto (Urine sed) [#/Area] 1+ /HPF Abnormal NONE SEEN [facility] Comment on above: Performed By: #### 5 3315-8 ####MYA DE LA CRUZ ([id number])[facility] ([facility])[address] [place] [address] Leukocyte clumps Auto (Urine sed) [#/Area] RARE Normal Reference range not established. [facility] Comment on above: Performed By: #### 5 1545-8 ####MYA DE LA CRUZ ([id number])[facility] ([facility])[address] [place] [address] Mucus Auto (Urine sed) [#/Area] FEW Normal Reference range not established. [facility] Comment on above: Performed By: #### 5 4935-8 ####MYA DE LA CRUZ ([id number])[facility] ([facility])[address] [place] [address] RBC Auto (Urine sed) [#/Area] 1-2 Normal NONE, 1-2, 3-5 [facility] Comment on above: Performed By: #### 5 4345-8 ####MYA DE LA CRUZ ([id number])[facility] ([facility])[address] [place] [address] WBC Auto (Urine sed) [#/Area] 21-50 Abnormal 1-5, NONE [facility] Comment on above: Performed By: #### 5 3705-8 ####ROQUE JONO ([id number])[facility] ([facility])[address] [place] [address] CBC (H/H, RBC, INDICES, WBC, PLT)on 03-10-2025 Erythrocyte distribution width (RBC) [Ratio] 16.0 % High 11.0-15.0 [facility] Comment on above: Performed By: #### 6 , 98510, 89, 63351, 1759 #### [facility] [place] [address] [employer]amper: Delgado Miller MD Hematocrit (Bld) [Volume fraction] 36.7 % Low 38.5-50.0 [facility] Comment on above: Performed By: #### 6 , 05758, 89, 02972, 175 #### [facility] [place] [address] [employer] [address]: Delgado Miller MD Hemoglobin (Bld) [Mass/Vol] 11.7 g/dL Low 13.2-17.1 [facility] Comment on above: Performed By: #### 6 , 79972, 89, 41864, 175 #### [facility] [place] [address] [employer]amper: Delgado Miller MD MCH (RBC) [Entitic mass] 30.1 pg Normal 27.0-33.0 [facility] Comment on above: Performed By: #### 6 , 97125, 89, 76013, 175 #### [facility] [place] [address] [employer]amper: Delgado Miller MD MCHC (RBC) [Mass/Vol] 31.9 g/dL Low 32.0-36.[address] [facility] Comment on above: Result Comment: For adults, a slight decrease in the calculated MCHC value (in the range of 30 to 32 g/dL) is most likely not clinically significant; however, it should be interpreted with caution in correlation with other red cell parameters and the patient's clinical condition. Performed By: #### 6 22, 73235, 899, 23898, 1759 #### [facility] of [place] [address] [address]: Delgado Miller MD MCV (RBC) [Entitic vol] 94.3 fL Normal 80.0-100.0 [facility] Comment on above: Performed By: #### 6 22, 24337, 899, 44583, 1759 #### [facility] of [address], [address] [place] [address] [employer] Stamper: Delgado Miller MD Platelet mean volume (Bld) [Entitic vol] 11.2 fL Normal 7.5-12.5 [facility] Comment on above: Performed By: #### 6 22, 21143, 899, 61957, 175 #### [facility] of [place] [address] [address]: Delgado Miller MD Platelets (Bld) [#/Vol] 184 10*3/uL Normal 140-400 [facility] Comment on above: Performed By: #### 6 22, 65075, 899, 06478, 175 #### [facility] of [place] [address] [address]: Delgado Miller MD RBC (Bld) [#/Vol] 3.89 10*6/uL Low 4.20-5.80 [facility] Comment on above: Performed By: #### 6 22, 40668, 899, 93524, 175 #### [facility] of [place] [address] [address]: Delgado Miller MD WBC (Bld) [#/Vol] 9.6 10*3/uL Normal 3.8-10.8 [facility] Comment on above: Performed By: #### 6 22, 56404, 899, 13477, 1759 #### [facility] of [place] [address] [address]: Delgado Miller MD COMPREHENSIVE METABOLIC PANE L W/ANION GAPon 03-10-2025 ALBUMIN Normal [facility] Comment on above: Performed By: #### 6 22, 10255, 899, 19719, 1759 #### [facility] of [facility] [address], [address] [place] [address] Ring Stamper: Delgado Miller MD ALKALINE PHOSPHATASE Normal [facility] Comment on above: Performed By: #### 6 22, 23058, 899, 56179, 1759 #### [facility] of [facility] [address], [address] [place] [address] Ring Stamper: Delgado Miller MD ALT Normal [facility] Comment on above: Performed By: #### 6 22, 29063, 899, 09991, 1759 #### [facility] of [facility] [address], [address] [place] [address] Ring Stamper: Delgado Miller MD AST Normal [facility] Comment on above: Performed By: #### 6 22, 85140, 899, 93477, 1759 #### [facility] of [facility] [address], [address] [place] [address] Ring Stamper: Delgado Miller MD BILIRUBIN, TOTAL Normal [facility] Comment on above: Performed By: #### 6 22, 14921, 899, 68589, 1759 #### [facility] of [facility] [address], [address] [place] [address] Ring Stamper: Delgado Miller MD CALCIUM Normal [facility] Comment on above: Performed By: #### 6 22, 49759, 899, 61279, 1759 #### [facility] of [facility] [address], [address] [place] [address] Ring Stamper: Delgado Miller MD CARBON DIOXIDE Normal [facility] Comment on above: Performed By: #### 6 22, 26618, 899, 03877, 1759 #### [facility] of [facility] [address], [address] [place] [address] Ring Stamper: Delgado Miller MD CHLORIDE Normal [facility] Comment on above: Performed By: #### 6 22, 06883, 899, 61840, 1759 #### [facility] of [place] [address], [address] [place] [address] Ring Stamper: Delgado Miller MD CREATININE Normal [facility] Comment on above: Performed By: #### 6 22, 88486, 899, 63144, 1759 #### [facility] [place] [address], [address] [place] [address] Ring Stamper: Delgado Miller MD EGFR Normal [facility] Comment on above: Performed By: #### 6 22, 18102, 899, 26957, 1759 #### [facility] [place] [address] , [address] [place] [address] Ring Stamper: Delgado Miller MD ELECTROLYTE BALANCE Normal [facility] Comment on above: Performed By: #### 6 22, 66010, 899, 61254, 1759 #### [facility] [place] [address] , [address] [place] [address] Ring Stamper: Delgado Miller MD GLUCOSE Normal [facility] Comment on above: Performed By: #### 6 22, 05379, 899, 25591, 1759 #### [facility] [place] [address] , [address] [place] [address] Ring Stamper: Delgado Miller MD POTASSIUM Normal [facility] Comment on above: Performed By: #### 6 22, 42044, 899, 95262, 1759 #### [facility] [place] [address], [address] [place] [address] Ring Stamper: Delgado Miller MD PROTEIN, TOTAL Normal [facility] Comment on above: Performed By: #### 6 22, 96219, 899, 65973, 1759 #### [facility] of [facility] [address] , [address] [place] [address] Ring Stamper: Delgado Miller MD SODIUM Normal [facility] Comment on above: Performed By: #### 6 22, 21718, 899, 71437, 1759 #### [facility] of [address], [address] [place] [address] Ring Stamper: Delgado Miller MD UREA NITROGEN (BUN) Normal [facility] Comment on above: Performed By: #### 6 22, 27087, 899, 13112, 1759 #### [facility] of [address], [address] [place] [address] Ring Stamper: Delgado Miller MD HEMOGLOBIN A1c WITH eAGon eAG (mg/dL) Normal [facility] Comment on above: Performed By: #### 6 22, 76818, 899, 70314, 1759 #### [facility] of [address], [address] [place] [address] Ring Stamper: Delgado Miller MD eAG (mmol/L) Normal [facility] Comment on above: Performed By: #### 6 22, 18840, 899, 89809, 1759 #### [facility] of [address], [address] [place] [address] Ring Stamper: Delgado Miller MD HEMOGLOBIN A1c Normal [facility] Comment on above: Performed By: #### 6 22, 87019, 899, 14321, 1759 #### [facility] of [address], [address] [place] [address] Ring Stamper: Delgado Miller MD MAGNESIUMon 03-10-2025 MAGNESIUM Normal [facility] Comment on above: Order Comment: FASTI NG:YES FASTING: YES Performed By: #### 6 22, 32350, 899, 33198, 1759 #### [facility] of [address], [address] [place] [address] Ring Stamper: Delgado Miller MD TSHon 03-10-2025 TSH Normal [facility] Comment on above: Performed By: #### 6 22, 58750, 899, 55850, 1759 #### [facility] of [address], [address] [place] [address] Ring Stamper: Delgado Miller MD Basic metabolic 2000 panelon 03-05-2025 Anion gap [Moles/Vol] 13 mmol/L 10 - 2 0 mmol/L [facility] Calcium [Mass/Vol] 8.5 mg/dL Low 8.6 - 10. 3 mg/dL [facility] Chloride [Moles/Vol] 107 mmol/L 98 - 10 7 mmol/L [facility] CO2 [Moles/Vol] 23 mmol/L 21 - 32 mmol/L [facility] Creatinine [Mass/Vol] 2.26 mg/dL High 0.50 - 1.30 mg/dL [facility] GFR/1.73 sq M.predicted among non-blacks MDRD (S/P/Bld) [Vol rate/Area] 28 mL/min/{1.73_m2} Low - PINF [facility] Comment on above: Calculations of apoorva mated GFR are performed using the 2020 CKD-EPI Study Refit equation without the race variable for the IDMS-Traceable creatinine methods. https://jasn.asnjournals.org/content/early//ASN.221382 2094 Glucose [Mass/Vol] 111 mg/dL High 74 - 99 mg/dL [facility] Interpretation and review of laboratory results Abnormal [facility] Potassium [Moles/Vol] 3.9 mmol/L 3.5 - 5.3 mmol/L [facility] Sodium [Moles/Vol] 139 mmol/L 136 - 145 mmol/L [facility] Urea nitrogen [Mass/Vol] 38 mg/dL High 6 - 23 mg/dL [facility] Anion gap [Moles/Vol] 13 mmol/L Normal 10-20 [facility] Comment on above: Performed By: #### 2 4321-2 ####MYA DE LA CRUZ ([id number])[facility])[address] [place] [address] Calcium [Mass/Vol] 8.5 mg/dL Low 8.6-10.3 [facility] Comment on above: Performed By: #### 2 4321-2 ####MYA DE LA CRUZ ([id number])[facility])[address] [place] [address] Chloride [Moles/Vol] 107 mmol/L Normal 98-107 [facility] Comment on above: Performed By: #### 2 4321-2 ####MYA DE LA CRUZ ([id number])[facility])[address] [place] [address] CO2 [Moles/Vol] 23 mmol/L Normal 21-32 [facility] Comment on above: Performed By: #### 2 4321-2 ####MYA DE LA CRUZ ([id number])[facility])[address] [place] [address] Creatinine [Mass/Vol] 2.26 mg/dL High 0.50-1.30 [facility] Comment on above: Performed By: #### 2 1-2 ####MYA DE LA CRUZ ([id number])[facility])[address] [place] [address] Glomerular filtration rate/1.73 sq M.predicted 28 mL/min/1.73m*2 Low >60 [facility] Comment on above: Result Comment: Calc ulations of estimated GFR are performed using the 2020 CKD-EPI Study Refit equation without the race variable for the IDMS-Traceable creatinine methods. https://jasn.asnjournals.org/content//ASN.444900 9146 Performed By: #### 2 1-2 ####MYA DE LA CRUZ ([id number])[facility])[address] [place] [address]31 Glucose [Mass/Vol] 111 mg/dL High 74-99 [facility] Comment on above: Performed By: #### 2 4321-2 ####MYA DE LA CRUZ ([id number])[facility] [place] [address] Potassium [Moles/Vol] 3.9 mmol/L Normal 3.5-5.3 [facility] Comment on above: Performed By: #### 2 4321-2 ####MYA DE LA CRUZ ([id number])[facility])[address] [place] [address] Sodium [Moles/Vol] 139 mmol/L Normal 136-145 [facility] Comment on above: Performed By: #### 2 4321-2 ####MYA DE LA CRUZ ([id number])[facility])[address] [place] [address] Urea nitrogen [Mass/Vol] 38 mg/dL High 6-23 [facility] Comment on above: Performed By: #### 2 4321-2 ####MYA DE LA CRUZ ([id number])[facility])[address] [place] [address] CBC panel Auto (Bld)on 03-05 Erythrocyte distribution width (RBC) [Ratio] 15.6 % High 11.5 - 14.5 % [facility] Hematocrit (Bld) [Volume fraction] 34.1 % Low 41.0 - 52.0 % [facility] Hemoglobin (Bld) [Mass/Vol] 11 g/dL Low 13.5 - 17.5 g/dL [facility] Interpretation and review of laboratory results Abnormal [facility] MCH (RBC) [Entitic mass] 29.6 pg 26.0 - 34.0 pg [facility] MCHC (RBC) [Mass/Vol] 32.3 g/dL 32.0 - 36.0 g/dL [facility] MCV (RBC) [Entitic vol] 92 fL 80 - 100 fL [facility] Nucleated RBC/100 WBC (Bld) [Ratio] 0 % [facility] Platelets (Bld) [#/Vol] 160 10*3/uL [facility] RBC (Bld) [#/Vol] 3.71 10*6/uL Low [facility] WBC (Bld) [#/Vol] 7.9 10*3/uL [facility] Erythrocyte distribution width (RBC) [Ratio] 15.6 % High 11.5-14.5 [facility] Comment on above: Performed By: #### 5 8410-2 ####MYA DE LA CRUZ ([id number])[facility])[address] [place] [address] Hematocrit (Bld) [Volume fraction] 34.1 % Low 41.0-52.0 [facility] Comment on above: Performed By: #### 5 8410-2 ####MYA DE LA CRUZ ([id number])[facility])[address] [place] [address] Hemoglobin (Bld) [Mass/Vol] 11.0 g/dL Low 13.5-17.5 [facility] Comment on above: Performed By: #### 5 8410-2 ####MYA DE LA CRUZ ([id number])[facility])[address] [place] [address] MCH (RBC) [Entitic mass] 29.6 pg Normal 26.0-34.0 [facility] Comment on above: Performed By: #### 5 8410-2 ####MYA DE LA CRUZ ([id number])[facility])[address] [place] [address] MCHC (RBC) [Mass/Vol] 32.3 g/dL Normal 32.0-36.0 [facility] Comment on above: Performed By: #### 5 8410-2 ####MYA DE LA CRUZ ([id number])[facility])[address] [place] [address] MCV (RBC) [Entitic vol] 92 fL Normal 80-100 [facility] Comment on above: Performed By: #### 5 8410-2 ####MYA DE LA CRUZ ([id number])[facility])[address] [place] [address] 99474 Nucleated RBC/100 WBC (Bld) [Ratio] 0.0 /100 WBCs Normal 0.0-0.0 [facility] Comment on above: Performed By: #### 5 8410-2 ####MYA DE LA CRUZ ([id number])[facility])[address] [place] [address] Platelets (Bld) [#/Vol] 160 x10*3/uL Normal 150-450 [facility] Comment on above: Performed By: #### 5 8410-2 ####MYA DE LA CRUZ ([id number])[facility])[address] [place] [address]228 RBC (Bld) [#/Vol] 3.71 x10*6/uL Low 4.50-5.90 [facility] Comment on above: Performed By: #### 5 8410-2 ####MYA DE LA CRUZ ([id number])[facility])[address] [place] [address] WBC (Bld) [#/Vol] 7.9 x10*3/uL Normal 4.4-11.3 [facility] Comment on above: Performed By: #### 5 8410-2 ####MYA DE LA CRUZ ([id number])[facility])[address] [place] [address]0626 ECG 12 leadon 03-05-2025 Q Onset 220 ms [facility] Work Phone: QRS Count 7 beats [facility] Work Phone: QRS Duration 90 ms [facility] Work Phone: QT Interval 466 ms [facility] Work Phone: QTC Calculation(Bazett) 389 [facility] Work Phone: QTC Fredericia 413 ms [facility] Work Phone: R Goltry 12 degrees [facility] Work Phone: T Goltry 166 degrees [facility] Work Phone: T Offset 453 ms [facility] Work Phone: Ventricular Rate 42 BPM [facility] Work Phone: Atrial fibrillation with slow ventricular response Minimal voltage criteria for LVH, may be normal variant ( R in aVL ) Cannot rule out Anterior infarct , age undetermined T wave abnormality, consider lateral ischemia Abnormal ECG When compared with ECG of 04-MAR-2025 12:36, (unconfirmed) Atrial fibrillation has replaced Sinus rhythm See ED provider note for full interpretation and clinical correlation Confirmed by Lexis Wiggins ([id number]) on 03/05/2025 2:57:10 PM [facility]2025 Atrial fibrillation with slow ventricular response Minimal voltage criteria for LVH, may be normal variant ( R in aVL ) Cannot rule out Anterior infarct , age undetermined T wave abnormality, consider lateral ischemia Abnormal ECG When compared with ECG of 04-MAR-2025 12:36, (unconfirmed) Atrial fibrillation has replaced Sinus rhythm See ED provider note for full interpretation and clinical correlation Confirmed by Lexis Wiggins ([id number]) on 03/05/2025 2:57:10 PM [facility] Work Phone: [facility] Work Phone: Sinus bradycardia wi th 1st degree AV block Minimal voltage criteria for LVH, may be normal variant ( R in aVL ) Nonspecific T wave abnormality Abnormal ECG When compared with ECG of 19-JAN-2025 10:51, Nonspecific T wave abnormality, worse in Anterolateral leads See ED provider note for full interpretation and clinical correlation Confirmed by Lexis Wiggins ([id number]) on 03/05/2025 2:35:37 PM [facility] 03/05/2025 Sinus bradycardia with 1st degree AV block Minimal voltage criteria for LVH, may be normal variant ( R in aVL ) Nonspecific T wave abnormality Abnormal ECG When compared with ECG of 19-JAN-2025 10:51, Nonspecific T wave abnormality, worse in Anterolateral leads See ED provider note for full interpretation and clinical correlation Confirmed by Lexis Wiggins ([id number]) on 03/05/2025 2:35:37 PM [facility] Work Phone: ECG 12 leadOrdered By: Annetta Wiggins on 03-05-2025 Atrial Rate 50 BPM [facility] Work Phone: P Goltry 90 degrees [facility] Work Phone: P Offset 146 ms [facility] Work Phone: P Onset 97 ms [facility] Work Phone: TX Interval 244 ms [facility] Work Phone: Q Onset 219 ms [facility] Work Phone: QRS Count 8 beats [facility] Work Phone: QRS Duration 88 ms [facility] Work Phone: QT Interval 476 [facility] Work Phone: QTC Calculation(Bazett) 433 ms [facility] Work Phone: QTC Fredericia 448 ms [facility] Work Phone: R Goltry 5 degrees [facility] Work Phone: T Goltry 130 degrees [facility] Work Phone: T Offset 457 ms [facility] Work Phone: Ventricular Rate 50 BPM [facility] Work Phone: [facility] Work Phone: ECG 12-LEADon 03-05-2025 ECG 12-LEAD Ventricular Rate 53 Atrial Rate 53 P-R Interval 278 QRS Duration 88 Q-T Interval 496 QTC Calculation(Bazett) 465 P Goltry 83 R Goltry 2 T Goltry 105 QRS Count 9 Q Onset 218 P Onset 79 P Offset 138 T Offset 466 QTC Fredericia 476 Diagnosis Sinus bradycardia with 1st degree AV block Minimal voltage criteria for LVH, may be normal variant ( R in aVL ) Abnormal QRS-T angle, consider primary T wave abnormality Abnormal ECG When compared with ECG of 04-MAR-2025 12:52, (unconfirmed) Sinus rhythm has replaced Atrial fibrillation QT has lengthened Confirmed by Nima Putnam ([id number]) on 03/06/2025 12:22:40 PM Normal [facility] Glucose Test strip manual (B ld) [Mass/Vol]on 03-05-2025 Glucose [Mass/Vol] 166 mg/dL High 74 - 99 mg/dL [facility] Interpretation and review of laboratory results Abnormal [facility] Glucose [Mass/Vol] 166 mg/dL High 74-99 [facility] Comment on above: Performed By: #### 2 341-6 ####MYA DE LA CRUZ ([id number])[facility])[address] [place] [address] Glucose [Mass/Vol] 138 mg/dL High 74 - 99 mg/dL [facility] Interpretation and review of laboratory results Abnormal [facility] Glucose [Mass/Vol] 138 mg/dL High 74-99 [facility] Comment on above: Performed By: #### 2 341-6 ####MYA DE LA CRUZ ([id number])[facility])[address] [place] [address] No Panel Informationon 03-05 Interpretation and review of laboratory results Abnormal [facility] Urinalysis complete panel (U )on 03-05-2025 Appearance (U) Clear Clear [facility] Bilirubin (U) [Mass/Vol] Negative NEGATIVE mg/dL [facility] Color (U) Light-Yellow Light-Yellow , Yellow, Dark-Yellow [facility] Glucose Auto test strip (U) [Mass/Vol] 500 (3+) Abnormal Normal mg/dL [facility] Ketones (U) [Mass/Vol] Negative NEGATIVE mg/dL [facility] Leukocyte esterase Auto test strip Ql (U) 500 Tenzin/uL Abnormal NEGATIVE [facility] Nitrite Auto test strip Ql (U) Negative NEGATIVE [facility] pH (U) 6 [pH] 5.0, 5.5, 6.0, 6.5, 7.0, 7.5, 8.0 [facility] Protein (U) [Mass/Vol] 20 (TRACE) NEGATIVE, 10 (TRACE), 20 (TRACE) mg/dL [facility] RBC (U) [#/Vol] 0.1 (1+) Abnormal NEGATIVE mg/dL [facility] Specific gravity (U) [Rel density] 1.007 1.005 - 1.035 [facility] Urobilinogen (U) [Mass/Vol] Normal Normal mg/dL [facility] Appearance (U) Clear Normal Clear [facility] Comment on above: Performed By: #### 2 4356-8 ####MYA DE LA CRUZ ([id number])[facility])[address] [place] [address] Bilirubin (U) [Mass/Vol] Negative Normal NEGATIVE [facility] Comment on above: Performed By: #### 2 4356-8 ####MYA DE LA CRUZ ([id number])[facility])[address] [place] [address] Color (U) Light-Yellow Normal Light-Yellow , Yellow, Dark-Yellow [facility] Comment on above: Performed By: #### 2 4356-8 ####MYA DE LA CRUZ ([id number])[facility])[address] [place] [address] Glucose Auto test strip (U) [Mass/Vol] 500 (3+) Abnormal Normal [facility] Comment on above: Performed By: #### 2 4356-8 ####MYA DE LAC RUZ ([id number])[facility])[address] [place], [place] [address] Ketones (U) [Mass/Vol] Negative Normal NEGATIVE [facility] Comment on above: Performed By: #### 2 4356-8 ####MYA DE LA CRUZ ([id number])[facility])[address] [place], [place] [address] Leukocyte esterase Auto test strip Ql (U) 500 Tenzin/uL Abnormal NEGATIVE [facility] Comment on above: Performed By: #### 2 4356-8 ####MYA DE LA CRUZ ([id number])[facility])[address] [place] [address] Nitrite Auto test strip Ql (U) Negative Normal NEGATIVE [facility] Comment on above: Performed By: #### 2 4356-8 ####MYA DE LA CRUZ ([id number])[facility])[address] [place] [address] pH (U) 6.0 [pH] Normal 5.0, 5.5, 6.0, 6.5, 7.0, 7.5, 8.0 [facility] Comment on above: Performed By: #### 2 4356-8 ####MYA DE LA CRUZ ([id number])[facility])[address] [place] [address] Protein (U) [Mass/Vol] 20 (TRACE) Normal NEGATIVE, 10 (TRACE), 20 (TRACE) [facility] Comment on above: Performed By: #### 2 4356-8 ####MYA DE LA CRUZ ([id number])[facility])[address] [place] [address] RBC (U) [#/Vol] 0.1 (1+) Abnormal NEGATIVE [facility] Comment on above: Performed By: #### 2 4356-8 ####MYA DE LA CRUZ ([id number])[facility])[address] [place] [address] Specific gravity (U) [Rel density] 1.007 Normal 1.005-1.035 [facility] Comment on above: Performed By: #### 2 4356-8 ####MYA DE LA CRUZ ([id number])[facility])[address] [place] [address] Urobilinogen (U) [Mass/Vol] Normal Normal Normal [facility] Comment on above: Performed By: #### 2 4356-8 ####MYA DE LA CRUZ ([id number])[facility])[address] [place] [address] Urinalysis microscopic panel Auto Ql (U)on 03-05-2025 Bacteria Auto (Urine sed) [#/Area] 1+ Abnormal NONE SEEN /HPF [facility] Leukocyte clumps Auto (Urine sed) [#/Area] OCCASIONAL Reference range not established. /HPF [facility] Mucus Auto (Urine sed) [#/Area] FEW Reference range not established. /LPF [facility] RBC Auto (Urine sed) [#/Area] 3-5 NONE, 1-2, 3-5 /HPF [facility] WBC Auto (Urine sed) [#/Area] 11-20 Abnormal 1-5, NONE /HPF [facility] Bacteria Auto (Urine sed) [#/Area] 1+ /HPF Abnormal NONE SEEN [facility] Comment on above: Performed By: #### 5 3315-8 ####MYA DE LA CRUZ ([id number])[facility])[address] [place] [address] Leukocyte clumps Auto (Urine sed) [#/Area] OCCASIONAL Normal Reference range not established. [facility] Comment on above: Performed By: #### 5 3315-8 ####MYA DE LA CRUZ ([id number])[facility])[address] [place] [address] Mucus Auto (Urine sed) [#/Area] FEW Normal Reference range not established. [facility] Comment on above: Performed By: #### 5 3315-8 ####MYA DE LA CRUZ ([id number])[facility])[address] [place] [address] 17799 RBC Auto (Urine sed) [#/Area] 3-5 Normal NONE, 1-2, 3-5 [facility] Comment on above: Performed By: #### 5 3315-8 ####MYA DE LA CRUZ ([id number])[facility])[address] [place] [address] 26462 WBC Auto (Urine sed) [#/Area] 11-20 Abnormal 1-5, NONE [facility] Comment on above: Performed By: #### 5 3315-8 ####MYA DE LA CRUZ ([id number])[facility])[address] [place] [address] 27263 CBC W Auto Differential pane l (Bld)on 03-04-2025 Basophils (Bld) [#/Vol] 0.07 10*3/uL [facility] Basophils/100 WBC (Bld) 0.7 % 0.0 - 2.0 % [facility] Eosinophils (Bld) [#/Vol] 0.82 10*3/uL High [facility] Eosinophils/100 WBC (Bld) 8.4 % 0.0 - 6.0 % [facility] Erythrocyte distribution width (RBC) [Ratio] 15.8 % High 11.5 - 14.5 % [facility] Hematocrit (Bld) [Volume fraction] 35.1 % Low 41.0 - 52.0 % [facility] Hemoglobin (Bld) [Mass/Vol] 11.3 g/dL Low 13.5 - 17.5 g/dL [facility] Immature granulocytes (Bld) [#/Vol] 0.04 10*3/uL [facility] Immature granulocytes/100 WBC (Bld) 0.4 % 0.0 - 0.9 % [facility] Comment on above: Immature Granulocyte Count (IG) includes promyelocytes, myelocytes and metamyelocytes but does not include bands. Percent differential counts (%) should be interpreted in the context of the absolute cell counts (cells/UL). Interpretation and review of laboratory results Abnormal [facility] Lymphocytes (Bld) [#/Vol] 2.37 10*3/uL [facility] Lymphocytes/100 WBC (Bld) 24.3 % 13.0 - 44.0 % [facility] MCH (RBC) [Entitic mass] 29.7 pg 26.0 - 34.0 pg [facility] MCHC (RBC) [Mass/Vol] 32.2 g/dL 32.0 - 36.0 g/dL [facility] MCV (RBC) [Entitic vol] 92 fL 80 - 100 fL [facility] Monocytes (Bld) [#/Vol] 0.7 10*3/uL [facility] Monocytes/100 WBC (Bld) 7.2 % 2.0 - 10.0 % [facility] Neutrophils (Bld) [#/Vol] 5.76 10*3/uL High [facility] Comment on above: Percent differential counts (%) should be interpreted in the context of the absolute cell counts (cells/uL). Neutrophils/100 WBC (Bld) 59 % 40.0 - 80.0 % [facility] Nucleated RBC/100 WBC (Bld) [Ratio] 0 % [facility] Platelets (Bld) [#/Vol] 175 10*3/uL [facility] RBC (Bld) [#/Vol] 3.8 10*6/uL Low [facility] WBC (Bld) [#/Vol] 9.8 10*3/uL [facility] Basophils (Bld) [#/Vol] 0.07 x10*3/uL Normal 0.00-0.10 [facility] Comment on above: Performed By: #### 5 7021-8 ####MYA DE LA CRUZ ([id number])[facility] ([facility])[address] [place] [address] 37711 Basophils/100 WBC (Bld) 0.7 % Normal 0.0-2.0 [facility] Comment on above: Performed By: #### 5 7021-8 ####MYA DE LA CRUZ ([id number])[facility] ([facility])[address] [place] [address] 99913 Eosinophils (Bld) [#/Vol] 0.82 x10*3/uL High 0.00-0.40 [facility] Comment on above: Performed By: #### 5 7021-8 ####MYA DE LA CRUZ ([id number])[facility] ([facility])[address] [place] [address] 50337 Eosinophils/100 WBC (Bld) 8.4 % Normal 0.0-6.0 [facility] Comment on above: Performed By: #### 5 7021-8 ####MYA DE LA CRUZ ([id number])[facility] ([facility])[address] [place] [address] 20398 Erythrocyte distribution width (RBC) [Ratio] 15.8 % High 11.5-14.5 [facility] Comment on above: Performed By: #### 5 7021-8 ####MYA DE LA CRUZ ([id number])[facility] ([facility])[address] [place] [address] 61459 Hematocrit (Bld) [Volume fraction] 35.1 % Low 41.0-52.0 [facility] Comment on above: Performed By: #### 5 7021-8 ####MYA DE LA CRUZ ([id number])[facility] ([facility])[address] [place] [address] 20662 Hemoglobin (Bld) [Mass/Vol] 11.3 g/dL Low 13.5-17.5 [facility] Comment on above: Performed By: #### 5 7021-8 ####MYA DE LA CRUZ ([id number])[facility] ([facility])[address] [place] [address] 33398 Immature granulocytes (Bld) [#/Vol] 0.04 x10*3/uL Normal 0.00-0.50 [facility] Comment on above: Performed By: #### 5 7021-8 ####MYA DE LA CRUZ ([id number])[facility] ([facility])[address] [place] [address] 98738 Immature granulocytes/100 WBC (Bld) 0.4 % Normal 0.0-0.9 [facility] Comment on above: Result Comment: Eva ture Granulocyte Count (IG) includes promyelocytes, myelocytes and metamyelocytes but does not include bands. Percent differential counts (%) should be interpreted in the context of the absolute cell counts (cells/UL). Performed By: #### 5 7021-8 ####MYA DE LA CRUZ ([id number])[facility] ([facility])[address] [place] [address] 11457 Lymphocytes (Bld) [#/Vol] 2.37 x10*3/uL Normal 0.80-3.00 [facility] Comment on above: Performed By: #### 5 7021-8 ####MYA DE LA CRUZ ([id number])[facility] ([facility])[address] [place] [address] 29644 Lymphocytes/100 WBC (Bld) 24.3 % Normal 13.0-44.0 [facility] Comment on above: Performed By: #### 5 7021-8 ####MYA DE LA CRUZ ([id number])[facility] ([facility])[address] [place] [address] 08464 MCH (RBC) [Entitic mass] 29.7 pg Normal 26.0-34.0 [facility] Comment on above: Performed By: #### 5 7021-8 ####MYA DE LA CRUZ ([id number])[facility] ([facility])[address] [place] [address] 10536 MCHC (RBC) [Mass/Vol] 32.2 g/dL Normal 32.0-36.0 [facility] Comment on above: Performed By: #### 5 7021-8 ####MYA DE LA CRUZ ([id number])[facility] ([facility])[address] [place] [address] 81963 MCV (RBC) [Entitic vol] 92 fL Normal 80-100 [facility] Comment on above: Performed By: #### 5 7021-8 ####MYA DE LA CRUZ ([id number])[facility] ([facility])[address] [place] [address] 77480 Monocytes (Bld) [#/Vol] 0.70 x10*3/uL Normal 0.05-0.80 [facility] Comment on above: Performed By: #### 5 7021-8 ####MYA DE LA CRUZ ([id number])[facility] ([facility])[address] [place] [address] 27344 Monocytes/100 WBC (Bld) 7.2 % Normal 2.0-10.0 [facility] Comment on above: Performed By: #### 5 7021-8 ####MYA DE LA CRUZ ([id number])[facility] ([facility])[address] [place] [address] 73400 Neutrophils (Bld) [#/Vol] 5.76 x10*3/uL High 1.60-5.50 [facility] Comment on above: Result Comment: Perc ent differential counts (%) should be interpreted in the context of the absolute cell counts (cells/uL). Performed By: #### 5 7021-8 ####MYA DE LA CRUZ ([id number])[facility] ([facility])[address] [place] [address] 21597 Neutrophils/100 WBC (Bld) 59.0 % Normal 40.0-80.0 [facility] Comment on above: Performed By: #### 5 7021-8 ####MYA DE LA CRUZ ([id number])[facility] ([facility])[address] [place] [address] 44745 Nucleated RBC/100 WBC (Bld) [Ratio] 0.0 /100 WBCs Normal 0.0-0.0 [facility] Comment on above: Performed By: #### 5 7021-8 ####MYA DE LA CRUZ ([id number])[facility] ([facility])[address] [place] [address] 20738 Platelets (Bld) [#/Vol] 175 x10*3/uL Normal 150-450 [facility] Comment on above: Performed By: #### 5 7021-8 ####MYA DE LA CRUZ ([id number])[facility] ([facility])[address] [place] [address] 09371 RBC (Bld) [#/Vol] 3.80 x10*6/uL Low 4.50-5.90 [facility] Comment on above: Performed By: #### 5 7021-8 ####MYA DE LA CRUZ ([id number])[facility])[address] [place] [address] 94939 WBC (Bld) [#/Vol] 9.8 x10*3/uL Normal 4.4-11.3 [facility] Comment on above: Performed By: #### 5 7021-8 ####MYA DE LA CRUZ ([id number])[facility] ([facility])[address] [place] [address] 11568 Comprehensive metabolic 2000 panelon 03-04-2025 Albumin BCP dye [Mass/Vol] 3.9 g/dL 3.4 - 5.0 g/dL [facility] ALP [Catalytic activity/Vol] 90 U/L 33 - 136 U/L [facility] ALT With P-5'-P [Catalytic activity/Vol] 12 U/L 10 - 52 U/L [facility] Comment on above: Patients treated wit h Sulfasalazine may generate falsely decreased results for ALT. Anion gap [Moles/Vol] 11 mmol/L 10 - 2 0 mmol/L [facility] AST With P-5'-P [Catalytic activity/Vol] 18 U/L 9 - 39 U/L [facility] Bilirubin [Mass/Vol] 0.7 mg/dL 0.0 - 1 .2 mg/dL [facility] Calcium [Mass/Vol] 9 mg/dL 8.6 - 10. 3 mg/dL [facility] Chloride [Moles/Vol] 106 mmol/L 98 - 10 7 mmol/L [facility] CO2 [Moles/Vol] 25 mmol/L 21 - 32 mmol/L [facility] Creatinine [Mass/Vol] 2.31 mg/dL High 0.50 - 1.30 mg/dL [facility] GFR/1.73 sq M.predicted among non-blacks MDRD (S/P/Bld) [Vol rate/Area] 27 mL/min/{1.73_m2} Low - PINF [facility] Comment on above: Calculations of apoorva mated GFR are performed using the 2020 CKD-EPI Study Refit equation without the race variable for the IDMS-Traceable creatinine methods. https://jasn.asnjournals.org/content//ASN.257376 3158 Glucose [Mass/Vol] 139 mg/dL High 74 - 99 mg/dL [facility] Interpretation and review of laboratory results Abnormal [facility] Potassium [Moles/Vol] 4.5 mmol/L 3.5 - 5.3 mmol/L [facility] Protein [Mass/Vol] 7.1 g/dL 6.4 - 8.2 g/dL [facility] Sodium [Moles/Vol] 137 mmol/L 136 - 145 mmol/L [facility] Urea nitrogen [Mass/Vol] 41 mg/dL High 6 - 23 mg/dL [facility] Albumin BCP dye [Mass/Vol] 3.9 g/dL Normal 3.4-5.0 [facility] Comment on above: Performed By: #### 2 4323-8 ####MYA DE LA CRUZ ([id number])[facility] ([facility])[address] [place] [address] 37584 ALP [Catalytic activity/Vol] 90 U/L Normal 33-136 [facility] Comment on above: Performed By: #### 2 432-8 ####MYA DE LA CRUZ ([id number])[facility] ([facility])[address] [place] [address] 64670 ALT With P-5'-P [Catalytic activity/Vol] 12 U/L Normal 10-52 [facility] Comment on above: Result Comment: Jaci ents treated with Sulfasalazine may generate falsely decreased results for ALT. Performed By: #### 2 432-8 ####MYA DE LA CRUZ ([id number])[facility] ([facility])[address] [place] [address] 96744 Anion gap [Moles/Vol] 11 mmol/L Normal 10-20 [facility] Comment on above: Performed By: #### 2 432-8 ####MYA DE LA CRUZ ([id number])[facility])[address] [place] [address] 28309 AST With P-5'-P [Catalytic activity/Vol] 18 U/L Normal 9-39 [facility] Comment on above: Performed By: #### 2 4323-8 ####MYA DE LA CRUZ ([id number])[facility] ([facility])[address] [place] [address] 01789 Bilirubin [Mass/Vol] 0.7 mg/dL Normal 0.0-1.2 [facility] Comment on above: Performed By: #### 2 432-8 ####MYA DE LA CRUZ ([id number])[facility] ([facility])[address] [place] [address] 18990 Calcium [Mass/Vol] 9.0 mg/dL Normal 8.6-10.3 [facility] Comment on above: Performed By: #### 2 4323-8 ####MYA DE LA CRUZ ([id number])[facility] [place] [address] Chloride [Moles/Vol] 106 mmol/L Normal 98-107 [facility] Comment on above: Performed By: #### 2 4323-8 ####MYA DE LA CRUZ ([id number])[facility])[address] [place] [address] 57900 CO2 [Moles/Vol] 25 mmol/L Normal 21-32 [facility] Comment on above: Performed By: #### 2 4323-8 ####MYA DE LA CRUZ ([id number])[facility] ([facility])[address] [place] [address] 95519 Creatinine [Mass/Vol] 2.31 mg/dL High 0.50-1.30 [facility] Comment on above: Performed By: #### 2 4323-8 ####MYA DE LA CRUZ ([id number])[facility] ([facility])[address] [place] [address] 79701 Glomerular filtration rate/1.73 sq M.predicted 27 mL/min/1.73m*2 Low >60 [facility] Comment on above: Result Comment: Calc ulations of estimated GFR are performed using the 2020 CKD-EPI Study Refit equation without the race variable for the IDMS-Traceable creatinine methods. https://jasn.asnjournals.org/content///ASN.198083 8917 Performed By: #### 2 4323-8 ####MYA DE LA CRUZ ([id number])[facility] ([facility])[address] [place] [address] 30781 Glucose [Mass/Vol] 139 mg/dL High 74-99 [facility] Comment on above: Performed By: #### 2 4323-8 ####MYA DE LA CRUZ ([id number])[facility] [place] [address] Potassium [Moles/Vol] 4.5 mmol/L Normal 3.5-5.3 [facility] Comment on above: Performed By: #### 2 4323-8 ####MYA DE LA CRUZ ([id number])[facility] ([facility])[address] [place] [address] 30992 Protein [Mass/Vol] 7.1 g/dL Normal 6.4-8.2 [facility] Comment on above: Performed By: #### 2 4323-8 ####MYA DE LA CRUZ ([id number])[facility] ([facility])[address] [place] [address] 90341 Sodium [Moles/Vol] 137 mmol/L Normal 136-145 [facility] Comment on above: Performed By: #### 2 4323-8 ####MYA DE LA CRUZ ([id number])[facility] ([facility])[address] [place] [address] 18936 Urea nitrogen [Mass/Vol] 41 mg/dL High 6-23 [facility] Comment on above: Performed By: #### 2 4323-8 ####MYA DE LA CRUZ ([id number])[facility] ([facility])[address] [place] [address] 91419 ECG 12-LEADon 03-04-2025 ECG 12-LEAD Ventricular Rate 42 QRS Duration 90 Q-T Interval 466 QTC Calculation(Bazett) 389 R Goltry 12 T Goltry 166 QRS Count 7 Q Onset 220 T Offset 453 QTC Fredericia 413 Diagnosis Atrial fibrillation with slow ventricular response Minimal voltage criteria for LVH, may be normal variant ( R in aVL ) Cannot rule out Anterior infarct , age undetermined T wave abnormality, consider lateral ischemia Abnormal ECG When compared with ECG of 04-MAR-2025 12:36, (unconfirmed) Atrial fibrillation has replaced Sinus rhythm See ED provider note for full interpretation and clinical correlation Confirmed by Lexis Wiggins ([id number]) on 03/05/2025 2:57:10 PM Normal [facility] ECG 12-LEAD Ventricular Rate 50 Atrial Rate 50 P-R Interval 244 QRS Duration 88 Q-T Interval 476 QTC Calculation(Bazett) 433 P Goltry 90 R Goltry 5 T Goltry 130 QRS Count 8 Q Onset 219 P Onset 97 P Offset 146 T Offset 457 QTC Fredericia 448 Diagnosis Sinus bradycardia with 1st degree AV block Minimal voltage criteria for LVH, may be normal variant ( R in aVL ) Nonspecific T wave abnormality Abnormal ECG When compared with ECG of 19-JAN-2025 10:51, Nonspecific T wave abnormality, worse in Anterolateral leads See ED provider note for full interpretation and clinical correlation Confirmed by Lexis Wiggins ([id number]) on 03/05/2025 2:35:37 PM Normal [facility] Glucose Test strip manual (B ld) [Mass/Vol]on 03-04-2025 Glucose [Mass/Vol] 119 mg/dL High 74 - 99 mg/dL [facility] Interpretation and review of laboratory results Abnormal [facility] Glucose [Mass/Vol] 119 mg/dL High 74-99 [facility] Comment on above: Performed By: #### 2 341-6 ####MYA DE LA CRUZ ([id number])[facility])[address] [place] [address] 56684 Magnesiumon 03-04-2025 Magnesium [Mass/Vol] 2 mg/dL 1.60 - 2.40 mg/dL [facility] Magnesium [Mass/Vol] 2.00 mg/dL Normal 1.60-2.40 [facility] Comment on above: Performed By: #### 1 9123-9 ####MYA DE LA CRUZ ([id number])[facility])[address] [place] [address] 76243 Magnesium [Mass/Vol]on 03-04 Interpretation and review of laboratory results Normal [facility] No Panel Informationon 03-04 [facility] TSHon 03-04-2025 TSH Qn 2.51 m[IU]/L [facility] TSH Qnon 03-04-2025 Interpretation and review of laboratory results Normal [facility] TSH testing is performed using different testing methodology at [facility] than at other [facility]. Direct result comparisons should only be made within the same method. [facility] Thyrotropinon 03-04-2025 TSH Qn 2.51 m[IU]/L Normal 0.44-3.98 [facility] Comment on above: Order Comment: TSH t esting is performed using different testing methodology at [facility] than at other [facility]. Direct result comparisons should only be made within the same method. Performed By: #### 3 016-3 ####ROQUE JONO ([id number])[facility] ([facility])[address] [place] [address] Tropinin I.cardiac panel Hig h sensitivity methodon 03-04-2025 Interpretation and review of laboratory results Normal [facility] Less than 99th percentile of normal range cutoff- Female and children under 18 years old <14 ng/L; Male <21 ng/L: Negative Repeat testing should be performed if clinically indicated. Female and children under 18 years old 14-50 ng/L; Male 21-50 ng/L: Consistent with possible cardiac damage and possible increased clinical risk. Serial measurements may help to assess extent of myocardial damage. >50 ng/L: Consistent with cardiac damage, increased clinical risk and myocardial infarction. Serial measurements may help assess extent of myocardial damage. NOTE: Children less than 1 year old may have higher baseline troponin levels and results should be interpreted in conjunction with the overall clinical context. NOTE: Troponin I testing is performed using a different testing methodology at [facility] than at other [facility]. Direct result comparisons should only be made within the same method. [facility] Interpretation and review of laboratory results Normal [facility] Less than 99th percentile of normal range cutoff- Female and children under 18 years old <14 ng/L; Male <21 ng/L: Negative Repeat testing should be performed if clinically indicated. Female and children under 18 years old 14-50 ng/L; Male 21-50 ng/L: Consistent with possible cardiac damage and possible increased clinical risk. Serial measurements may help to assess extent of myocardial damage. >50 ng/L: Consistent with cardiac damage, increased clinical risk and myocardial infarction. Serial measurements may help assess extent of myocardial damage. NOTE: Children less than 1 year old may have higher baseline troponin levels and results should be interpreted in conjunction with the overall clinical context. NOTE: Troponin I testing is performed using a different testing methodology at [facility] than at other [facility]. Direct result comparisons should only be made within the same method. [facility] Troponin I, High Sensitivity , Initialon 03-04-2025 Tropinin I.cardiac panel High sensitivity method 13 ng/L 0 - 20 ng/L [facility] Troponin I.cardiac panelon 0 03-04-2025 Tropinin I.cardiac panel High sensitivity method 11 ng/L Normal 0-20 [facility] Comment on above: Order Comment: Less than 99th percentile of normal range cutoff-Female and children under 18 years old <14 ng/L; Male <21 ng/L: NegativeRepeat testing should be performed if clinically indicated.Female and children under 18 years old 14-50 ng/L; Male 21-50 ng/L:Consistent with possible cardiac damage and possible increased clinicalrisk. Serial measurements may help to assess extent of myocardial damage.>50 ng/L: Consistent with cardiac damage, increased clinical risk andmyocardial infarction. Serial measurements may help assess extent ofmyocardial damage.NOTE: Children less than 1 year old may have higher baseline troponinlevels and results should be interpreted in conjunction with the overallclinical context.NOTE: Troponin I testing is performed using a differenttesting methodology at [facility] than at [facility]. Direct result comparisons should onlybe made within the same method. Performed By: #### 8 9577-1 ####ROQUE JONO ([id number])[facility])[address] [place] [address] Tropinin I.cardiac panel High sensitivity method 13 ng/L Normal 0-20 [facility] Comment on above: Order Comment: Less than 99th percentile of normal range cutoff-Female and children under 18 years old <14 ng/L; Male <21 ng/L: NegativeRepeat testing should be performed if clinically indicated.Female and children under 18 years old 14-50 ng/L; Male 21-50 ng/L:Consistent with possible cardiac damage and possible increased clinicalrisk. Serial measurements may help to assess extent of myocardial damage.>50 ng/L: Consistent with cardiac damage, increased clinical risk andmyocardial infarction. Serial measurements may help assess extent ofmyocardial damage.NOTE: Children less than 1 year old may have higher baseline troponinlevels and results should be interpreted in conjunction with the overallclinical context.NOTE: Troponin I testing is performed using a differenttesting methodology at [facility] than at [facility]. Direct result comparisons should onlybe made within the same method. Performed By: #### 8 9577-1 ####ROQUE JONO ([id number])[facility] ([facility])[address] [place] [address] Troponin, High Sensitivity, 1 Houron 03-04-2025 Tropinin I.cardiac panel High sensitivity method 11 ng/L 0 - 20 ng/L [facility] XR CHEST 1 VIEWon 03-04-2025 XR CHEST 1 VIEW Interpreted By: Joan Fish, STUDY: XR CHEST 1 VIEW; 03/04/2025 1:08 pm INDICATION: Signs/Symptoms:Chest Pain. COMPARISON: 10/18/2024 ACCESSION NUMBER(S): [id number] ORDERING CLINICIAN: SANYA SHIN FINDINGS: AP radiograph of the chest was provided. CARDIOMEDIASTINAL SILHOUETTE: Persistently enlarged cardiomediastinal silhouette. LUNGS: Persistent mild bibasilar atelectasis. Mild diffuse coarse interstitial lung markings, likely chronic interstitial lung disease. No new airspace consolidation, pulmonary edema, pleural effusion, or pneumothorax. ABDOMEN: No remarkable upper abdominal findings. BONES: No acute osseous changes. IMPRESSION: No significant interval change from prior radiograph from September 2024, with no evidence of acute cardiopulmonary process. Signed by: Joan Fish 03/04/2025 1:23 PM Dictation workstation: [id number] [facility] XR Chest Single viewon 03-04 No significant inter nay change from prior radiograph from September 2024, with no evidence of acute cardiopulmonary process. Signed by: Joan Fish 03/04/2025 1:23 PM Dictation workstation: [id number] MMODAL Interpreted By: Joan Fish, STUDY: XR CHEST 1 VIEW; 03/04/2025 1:08 pm INDICATION: Signs/Symptoms:Chest Pain. COMPARISON: 10/18/2024 ACCESSION NUMBER(S): [id number] ORDERING CLINICIAN: SANYA SHIN FINDINGS: AP radiograph of the chest was provided. CARDIOMEDIASTINAL SILHOUETTE: Persistently enlarged cardiomediastinal silhouette. LUNGS: Persistent mild bibasilar atelectasis. Mild diffuse coarse interstitial lung markings, likely chronic interstitial lung disease. No new airspace consolidation, pulmonary edema, pleural effusion, or pneumothorax. ABDOMEN: No remarkable upper abdominal findings. BONES: No acute osseous changes. MMODAL Joan Fish MD , MS - 03/04/2025 Interpreted By: Joan Fish, STUDY: XR CHEST 1 VIEW; 03/04/2025 1:08 pm INDICATION: Signs/Symptoms:Chest Pain. COMPARISON: 10/18/2024 ACCESSION NUMBER(S): [id number] ORDERING CLINICIAN: SANYA SHIN FINDINGS: AP radiograph of the chest was provided. CARDIOMEDIASTINAL SILHOUETTE: Persistently enlarged cardiomediastinal silhouette. LUNGS: Persistent mild bibasilar atelectasis. Mild diffuse coarse interstitial lung markings, likely chronic interstitial lung disease. No new airspace consolidation, pulmonary edema, pleural effusion, or pneumothorax. ABDOMEN: No remarkable upper abdominal findings. BONES: No acute osseous changes. IMPRESSION: No significant interval change from prior radiograph from September 2024, with no evidence of acute cardiopulmonary process. Signed by: Joan Fish 03/04/2025 1:23 PM Dictation workstation: [id number] [facility] Work Phone: Radiology Study observation (narrative) [facility] Work Phone: XR Chest Single viewOrdered By: Joan Fish on 03-04-2025 [facility] Work Phone: Bacteria identifiedon 2024 Bacteria identified Cx Nom (U) Test: Urine Culture Specimen Source: Indwelling (De Oliveira) Catheter Specimen Type: Urine Specimen Date: 02/28/2025225 Result Date: 03/02/2025933 Result Status: Final result Abnormal: Yes Resulting Lab: [facility] [address] [place] [address] CULTURE >=100,000 CFU/mL Escherichia coli (Abnormal) SUSCEPTIBILITY Escherichia coli METHOD MICROSCAN ------ AMPICILLIN <=8.000 ug/ml Susceptible CEFAZOLIN <=2 ug/ml Susceptible CEFAZOLIN (UNCOMPLICATED UTIS ONLY) <=2 ug/ml Susceptible CIPROFLOXACIN <=0.250 ug/ml Susceptible GENTAMICIN <=2.000 ug/ml Susceptible LEVOFLOXACIN <=0.500 ug/ml Susceptible NITROFURANTOIN 64 ug/ml Intermediate PIPERACILLIN/TAZOBACTAM <=8.000 ug/ml Susceptible TRIMETHOPRIM/SULFAMETHO XAZOLE <=0.5/9.5 ug/ml Susceptible Abnormal [facility] Comment on above: Performed By: #### 6 30-4 ####MARIAM Stroud ([id number])[facility] ([facility])[address] [place] [address] Urinalysis complete W Reflex Culture panel (U)Ordered By: Irma Guerin on 02-28-2025 Appearance (U) Turbid Abnormal Clear [facility] Bilirubin (U) [Mass/Vol] Negative NEGATIVE mg/dL [facility] Color (U) Colorless Abnormal Light-Yellow , Yellow, Dark-Yellow [facility] Glucose Auto test strip (U) [Mass/Vol] OVER (4+) Abnormal Normal mg/dL [facility] Interpretation and review of laboratory results Abnormal [facility] Ketones (U) [Mass/Vol] Negative NEGATIVE mg/dL [facility] Leukocyte esterase Auto test strip Ql (U) 250 Tenzin/uL Abnormal NEGATIVE [facility] Nitrite Auto test strip Ql (U) Negative NEGATIVE [facility] pH (U) 6 [pH] 5.0, 5.5, 6.0, 6.5, 7.0, 7.5, 8.0 [facility] Protein (U) [Mass/Vol] 30 (1+) Abnormal NEGATIVE, 10 (TRACE), 20 (TRACE) mg/dL [facility] RBC (U) [#/Vol] OVER (3+) Abnormal NEGATIVE mg/dL [facility] Specific gravity (U) [Rel density] 1.010 1.005 - 1.035 [facility] Urobilinogen (U) [Mass/Vol] Normal Normal mg/dL [facility] OVER is reported whe n the result is greater than the clinically reportable range. [facility] Urinalysis complete W Reflex Culture panel (U)on 02-28-2025 Appearance (U) Turbid Normal Clear [facility] Comment on above: Order Comment: OVER is reported when the result is greater than the clinically reportable range. Performed By: #### 5 8077-9 ####MYA DE LA CRUZ ([id number])[facility] ([facility])[address] [place], [place] [address] Bilirubin (U) [Mass/Vol] Negative Normal NEGATIVE [facility] Comment on above: Order Comment: OVER is reported when the result is greater than the clinically reportable range. Performed By: #### 5 8077-9 ####MYA DE LA CRUZ ([id number])[facility] ([facility])[address] [place] [phone] Color (U) Colorless Normal Light-Yellow , Yellow, Dark-Yellow [facility] Comment on above: Order Comment: OVER is reported when the result is greater than the clinically reportable range. Performed By: #### 5 8077-9 ####MYA DE LA CRUZ ([id number])[facility] ([facility])[address] [place] [address] [phone] Glucose Auto test strip (U) [Mass/Vol] OVER (4+) Abnormal Normal [facility] Comment on above: Order Comment: OVER is reported when the result is greater than the clinically reportable range. Performed By: #### 5 8077-9 ####MYA DE LA CRUZ ([id number])[facility] ([facility])[address] [place] [address] 19298 Ketones (U) [Mass/Vol] Negative Normal NEGATIVE [facility] Comment on above: Order Comment: OVER is reported when the result is greater than the clinically reportable range. Performed By: #### 5 8077-9 ####MYA DE LA CRUZ ([id number])[facility] ([facility])[address] [place] [phone] Leukocyte esterase Auto test strip Ql (U) 250 Tenzin/uL Abnormal NEGATIVE [facility] Comment on above: Order Comment: OVER is reported when the result is greater than the clinically reportable range. Performed By: #### 5 8077-9 ####MYA DE LA CRUZ ([id number])[facility] ([facility])[address] [place] [address]12 Nitrite Auto test strip Ql (U) Negative Normal NEGATIVE [facility] Comment on above: Order Comment: OVER is reported when the result is greater than the clinically reportable range. Performed By: #### 5 8077-9 ####MYA DE LA CRUZ ([id number])[facility] ([facility])[address] [place] [address] 01436 pH (U) 6.0 [pH] Normal 5.0, 5.5, 6.0, 6.5, 7.0, 7.5, 8.0 [facility] Comment on above: Order Comment: OVER is reported when the result is greater than the clinically reportable range. Performed By: #### 5 8077-9 ####MYA DE LA CRUZ ([id number])[facility] ([facility])[address] [place] [address] [phone] Protein (U) [Mass/Vol] 30 (1+) Abnormal NEGATIVE, 10 (TRACE), 20 (TRACE) [facility] Comment on above: Order Comment: OVER is reported when the result is greater than the clinically reportable range. Performed By: #### 5 8077-9 ####MYA DE LA CRUZ ([id number])[facility] ([facility])[address] [place] [address] [phone] RBC (U) [#/Vol] OVER (3+) Abnormal NEGATIVE [facility] Comment on above: Order Comment: OVER is reported when the result is greater than the clinically reportable range. Performed By: #### 5 8077-9 ####MYA DE LA CRUZ ([id number])[facility] ([facility])[address] [place] [address]40 Specific gravity (U) [Rel density] 1.010 Normal 1.005-1.035 [facility] Comment on above: Order Comment: OVER is reported when the result is greater than the clinically reportable range. Performed By: #### 5 8077-9 ####MYA DE LA CRUZ ([id number])[facility] ([facility])[address] [place] [address] Urobilinogen (U) [Mass/Vol] Normal Normal Normal [facility] Comment on above: Order Comment: OVER is reported when the result is greater than the clinically reportable range. Performed By: #### 5 8077-9 ####MYA DE LA CRUZ ([id number])[facility] ([facility])[address] [place] [address] Urinalysis microscopic panel Auto Ql (U)on 02-28-2025 Bacteria Auto (Urine sed) [#/Area] 1+ Abnormal NONE SEEN /HPF [facility] Interpretation and review of laboratory results Abnormal [facility] Leukocyte clumps Auto (Urine sed) [#/Area] RARE Reference range not established. /HPF [facility] RBC Auto (Urine sed) [#/Area] >20 Abnormal NONE, 1-2, 3-5 /HPF [facility] WBC Auto (Urine sed) [#/Area] >50 Abnormal 1-5, NONE /HPF [facility] Bacteria Auto (Urine sed) [#/Area] 1+ /HPF Abnormal NONE SEEN [facility] Comment on above: Performed By: #### 5 3315-8 ####MYA DE LA CRUZ ([id number])[facility] ([facility])[address] [place] [address] Leukocyte clumps Auto (Urine sed) [#/Area] RARE Normal Reference range not established. [facility] Comment on above: Performed By: #### 5 3315-8 ####MYA DE LA CRUZ ([id number])[facility] ([facility])[address] [place] [address] RBC Auto (Urine sed) [#/Area] >20 Abnormal NONE, 1-2, 3-5 [facility] Comment on above: Performed By: #### 5 3315-8 ####MYA DE LA CRUZ ([id number])[facility] ([facility])[address] [place] [address] 18253 WBC Auto (Urine sed) [#/Area] >50 Abnormal 1-5, NONE [facility] Comment on above: Performed By: #### 5 3315-8 ####MYA DE LA CRUZ ([id number])[facility] ([facility])[address] [place], [place] [address] ACT Coag (Bld)on 01-19-2025 Interpretation and review of laboratory results Abnormal [facility] ACTIVATED CLOTTING TIME LOWo n 01-19-2025 ACT Coag (Bld) High [facility] Comment on above: ABOVE LIMIT FOR CHIQUI CE Target ACT range will vary based on the patient population, clinical status, and surgical intervention occurring. Activated clotting timeon ACT Coag (Bld) s High 83-199 [facility] Comment on above: Result Comment: ABOV E LIMIT FOR DEVICE Target ACT range will vary based on the patient population, clinical status, and surgical intervention occurring. Performed By: #### 3 184-9 ####MYA DE LA CRUZ ([id number])[facility] ([facility])[address] [place] [address] CARDIAC CATHETERIZATION PROC EDUREon 01-19-2025 CARDIAC CATHETERIZATION PROCEDURE [facility] Yield Improvement Engineer [address] [place] [address] ext-[phone], Cardiovascular Catheterization Report Patient Name: KITTY VERGARA Performing Physician: [id number] Fay MD Study Date: 01/19/2025 Verifying Physician: Nuno Fay MD MRN/PID: [id number] Qa Specialist/Co-Scrub: Ordering Provider: Nuon FAY Date of /Age: 1007/06/1940 / 84 years Qa Specialist: Gender: M Fellow: Surgeon: Study: Right and Left Heart Cath Additional Study: PCI - Percutaneous Coronary Intervention Additional Study: FFR - Fractional Flow [place] Additional Study: IVUS - Intravascular Ultrasound Indications: KITTY VERGARA is a 85 year old male who presents with hypertension, diabetes, dyslipidemia, aortic stenosis / bladder disease and an anginal equivalent chest pain assessment (i.e. dyspnea on exertion believed to be from ischemia). Valvular disease. Heart failure. Appropriate Use Criteria: Preoperative assessment before valvular surgery; AUC score = 7. [place] [id number] Nima Fay MD on 01/19/2025 11:41:21 AM due to add data. Stress test performed: No. CTA performed: No. Agatston accessed: No. LVEF Assessed: Yes. LVEF = 60%. Cardiac arrest: No. Cardiac surgical consult: No. Cardiovascular Instability: No Frailty status of patient entering lab: 6 = Moderately frail. Procedure Description: After infiltration with 2% Lidocaine, the right femoral artery radial artery was cannulated with a modified Seldinger technique. Subsequently a 6 Gabonese sheath was placed in the right femoral artery radial artery. The arterial sheath was sized up to 5 Gabonese. After infiltration with 2% Lidocaine, a second arterial access was obtained via the right femoral artery with a modified Seldinger technique and a 6 Gabonese sheath was placed. After infiltration of local anesthetic, the right cephalic vein vein was identified with two-dimensional ultrasound. Under direct ultrasound visualization, the right cephalic vein vein was cannulated with a micropuncture technique. A 5 Gabonese sheath was placed in the vein. Selective coronary catheterization was performed using a 6 Fr catheter(s) exchanged over a guide wire to cannulate the coronary arteries. A 5 Fr Newbury catheter was used for left and right coronary artery injections. Additional catheter(s) used to visualize the coronary arteries were: 6F XB 3.5. Multiple injections of contrast were made into the left and right coronary arteries with angiograms recorded in multiple projections. Cardiac output was calculated via the Kendell method. After completion of the procedure, femoral artery angiography was performed. This demonstrated a common femoral artery puncture appropriate for closure. A Perclose ProGlide 6F (Linares) vascular closure device was placed per protocol. Femoral artery angiography was performed at the additional arterial access site. This demonstrated a common femoral artery puncture appropriate for closure. Post-procedure, the venous sheath was pulled and pressure was applied to the site. Coronary Angiography: The coronary circulation is right dominant. Left Main Coronary Artery: The left main coronary artery is a normal caliber vessel. The left main arises normally from the left coronary sinus of Valsalva and bifurcates into the LAD and circumflex coronary arteries. The left main coronary artery showed a normal vessel. Left Anterior Descending Coronary Artery Distribution: The left anterior descending coronary artery is a normal caliber vessel. The LAD arises normally from the left main coronary artery. The LAD demonstrated atherosclerotic disease and calcification. The proximal to mid left anterior descending coronary artery showed 80% stenosis. This lesion was diffuse and calcified. The 1st diagonal branch is a normal caliber vessel. The 1st diagonal branch showed no significant disease or stenosis greater than 30%. The 2nd diagonal branch is a normal caliber vessel. The 2nd diagonal branch demonstrated no significant disease or stenosis greater than 30%. Circumflex Coronary Artery Distribution: The circumflex coronary artery is a normal caliber vessel. The circumflex arises normally from the left main coronary artery and terminates in the AV groove. The circumflex revealed no significant disease or stenosis greater than 30%. The 1st obtuse marginal branch is a normal caliber vessel. The 1st obtuse marginal branch showed atherosclerotic disease and calcification. The proximal 1st obtuse marginal branch showed 60% stenosis. This lesion was calcified. The 2nd obtuse marginal branch is a normal caliber vessel. The 2nd obtuse marginal branch demonstrated no significant disease or stenosis greater than 30%. Right Heart Catheterization: Cardiac output was calculated via the Kendell method. Elevated left si (more content not included)... Normal [facility] Cardiac catheterization stud yon 01-19-2025 [facility] Yield Improvement Engineer [address] [place] [address] ext-[phone], Cardiovascular Catheterization Report Patient Name: KITTY VERGARA Performing Physician: [id number] Fay MD Study Date: 01/19/2025 Verifying Physician: Nuno Fay MD MRN/PID: [id number] Qa Specialist/Co-Scrub: Ordering Provider: Nuno FAY Date of /Age: 1007/06/1940 / 84 years Qa Specialist: Gender: M Fellow: Surgeon: Study: Right and Left Heart Cath Additional Study: PCI - Percutaneous Coronary Intervention Additional Study: FFR - Fractional Flow [place] Additional Study: IVUS - Intravascular Ultrasound Indications: KITTY VERGARA is a 85 year old male who presents with hypertension, diabetes, dyslipidemia, aortic stenosis / bladder disease and an anginal equivalent chest pain assessment (i.e. dyspnea on exertion believed to be from ischemia). Valvular disease. Heart failure. Appropriate Use Criteria: Preoperative assessment before valvular surgery; AUC score = 7. [place] [id number] Nima Fay MD on 01/19/2025 11:41:21 AM due to add data. Stress test performed: No. CTA performed: No. Agatston accessed: No. LVEF Assessed: Yes. LVEF = 60%. Cardiac arrest: No. Cardiac surgical consult: No. Cardiovascular Instability: No Frailty status of patient entering lab: 6 = Moderately frail. Procedure Description: After infiltration with 2% Lidocaine, the right femoral artery radial artery was cannulated with a modified Seldinger technique. Subsequently a 6 Gabonese sheath was placed in the right femoral artery radial artery. The arterial sheath was sized up to 5 Gabonese. After infiltration with 2% Lidocaine, a second arterial access was obtained via the right femoral artery with a modified Seldinger technique and a 6 Gabonese sheath was placed. After infiltration of local anesthetic, the right cephalic vein vein was identified with two-dimensional ultrasound. Under direct ultrasound visualization, the right cephalic vein vein was cannulated with a micropuncture technique. A 5 Gabonese sheath was placed in the vein. Selective coronary catheterization was performed using a 6 Fr catheter(s) exchanged over a guide wire to cannulate the coronary arteries. A 5 Fr Newbury catheter was used for left and right coronary artery injections. Additional catheter(s) used to visualize the coronary arteries were: 6F XB 3.5. Multiple injections of contrast were made into the left and right coronary arteries with angiograms recorded in multiple projections. Cardiac output was calculated via the Kendell method. After completion of the procedure, femoral artery angiography was performed. This demonstrated a common femoral artery puncture appropriate for closure. A Perclose ProGlide 6F (Linares) vascular closure device was placed per protocol. Femoral artery angiography was performed at the additional arterial access site. This demonstrated a common femoral artery puncture appropriate for closure. Post-procedure, the venous sheath was pulled and pressure was applied to the site. Coronary Angiography: The coronary circulation is right dominant. Left Main Coronary Artery: The left main coronary artery is a normal caliber vessel. The left main arises normally from the left coronary sinus of Valsalva and bifurcates into the LAD and circumflex coronary arteries. The left main coronary artery showed a normal vessel. Left Anterior Descending Coronary Artery Distribution: The left anterior descending coronary artery is a normal caliber vessel. The LAD arises normally from the left main coronary artery. The LAD demonstrated atherosclerotic disease and calcification. The proximal to mid left anterior descending coronary artery showed 80% stenosis. This lesion was diffuse and calcified. The 1st diagonal branch is a normal caliber vessel. The 1st diagonal branch showed no significant disease or stenosis greater than 30%. The 2nd diagonal branch is a normal caliber vessel. The 2nd diagonal branch demonstrated no significant disease or stenosis greater than 30%. Circumflex Coronary Artery Distribution: The circumflex coronary artery is a normal caliber vessel. The circumflex arises normally from the left main coronary artery and terminates in the AV groove. The circumflex revealed no sign (more content not included)... Nima Knight MD - 01/19/2025 [facility] Yield Improvement Engineer [address] [place] [address] [phone], Cardiovascular Catheterization Report Patient Name: KITTY VERGARA Performing Physician: Nuno Fay MD Study Date: 01/19/2025 Verifying Physician: Nuno Fay MD MRN/PID: [id number] Qa Specialist/Co-Scrub: Ordering Provider: Nuno FAY Date of /Age: 1007/06/1940 / 84 years Qa Specialist: Gender: M Fellow: Surgeon: Study: Right and Left Heart Cath Additional Study: PCI - Percutaneous Coronary Intervention Additional Study: FFR - Fractional Flow [place] Additional Study: IVUS - Intravascular Ultrasound Indications: KITTY VERGARA is a 85 year old male who presents with hypertension, diabetes, dyslipidemia, aortic stenosis / bladder disease and an anginal equivalent chest pain assessment (i.e. dyspnea on exertion believed to be from ischemia). Valvular disease. Heart failure. Appropriate Use Criteria: Preoperative assessment before valvular surgery; AUC score = 7. [place] [id number] Nima Fay MD on 01/19/2025 11:41:21 AM due to add data. Stress test performed: No. CTA performed: No. Agatston accessed: No. LVEF Assessed: Yes. LVEF = 60%. Cardiac arrest: No. Cardiac surgical consult: No. Cardiovascular Instability: No Frailty status of patient entering lab: 6 = Moderately frail. Procedure Description: After infiltration with 2% Lidocaine, the right femoral artery radial artery was cannulated with a modified Seldinger technique. Subsequently a 6 Gabonese sheath was placed in the right femoral artery radial artery. The arterial sheath was sized up to 5 Gabonese. After infiltration with 2% Lidocaine, a second arterial access was obtained via the right femoral artery with a modified Seldinger technique and a 6 Gabonese sheath was placed. After infiltration of local anesthetic, the right cephalic vein vein was identified with two-dimensional ultrasound. Under direct ultrasound visualization, the right cephalic vein vein was cannulated with a micropuncture technique. A 5 Gabonese sheath was placed in the vein. Selective coronary catheterization was performed using a 6 Fr catheter(s) exchanged over a guide wire to cannulate the coronary arteries. A 5 Fr Newbury catheter was used for left and right coronary artery injections. Additional catheter(s) used to visualize the coronary arteries were: 6F XB 3.5. Multiple injections of contrast were made into the left and right coronary arteries with angiograms recorded in multiple projections. Cardiac output was calculated via the Kendell method. After completion of the procedure, femoral artery angiography was performed. This demonstrated a common femoral artery puncture appropriate for closure. A Perclose ProGlide 6F (Linares) vascular closure device was placed per protocol. Femoral artery angiography was performed at the additional arterial access site. This demonstrated a common femoral artery puncture appropriate for closure. Post-procedure, the venous sheath was pulled and pressure was applied to the site. Coronary Angiography: The coronary circulation is right dominant. Left Main Coronary Artery: The left main coronary artery is a normal caliber vessel. The left main arises normally from the left coronary sinus of Valsalva and bifurcates into the LAD and circumflex coronary arteries. The left main coronary artery showed a normal vessel. Left Anterior Descending Coronary Artery Distribution: The left anterior descending coronary artery is a normal caliber vessel. The LAD arises normally from the left main coronary artery. The LAD demonstrated atherosclerotic disease and calcification. The proximal to mid left anterior descending coronary artery showed 80% stenosis. This lesion was diffuse and calcified. The 1st diagonal branch is a normal caliber vessel. The 1st diagonal branch showed no significant disease or stenosis greater than 30%. The 2nd diagonal branch is a normal caliber vessel. The 2nd diagonal branch demonstrated no significant disease or stenosis greater than 30%. Circumflex Coronary Artery Distribution: The circumflex coronary artery is a normal caliber vessel. The circumflex arises normally from the left main coronary artery and terminates in the AV groove. The circumflex revealed no significant disease or stenosis greater than 30%. The 1st obtuse marginal branch is a normal caliber vessel. The 1st obtuse marginal branch showed atherosclerotic disease and calcification. The proximal 1st obtuse marginal branch showed 60% stenosis. This lesion was calcified. The 2nd obtuse marginal branch is a normal caliber vessel. The 2nd obtuse marginal branch demonstrated no significant disease or stenosis great (more content not included)... [facility] Work Phone: [facility] Work Phone: ECG 12-LEADon 01-19-2025 ECG 12-LEAD Ventricular Rate 56 Atrial Rate 56 P-R Interval 262 QRS Duration 86 Q-T Interval 466 QTC Calculation(Bazett) 449 P Goltry 66 R Goltry 7 T Goltry 45 QRS Count 9 Q Onset 219 P Onset 88 P Offset 139 T Offset 452 QTC Fredericia 455 Diagnosis Sinus bradycardia with 1st degree AV block Otherwise normal ECG When compared with ECG of 19-JAN-2025 08:06, (unconfirmed) Sinus rhythm has replaced Ectopic atrial rhythm Confirmed by Nima Putnam ([id number]) on 01/19/2025 3:58:09 PM [facility] ECG 12-LEAD Ventricular Rate 47 Atrial Rate 47 P-R Interval 236 QRS Duration 82 Q-T Interval 490 QTC Calculation(Bazett) 433 P Goltry 165 R Goltry 0 T Goltry 77 QRS Count 8 Q Onset 219 P Onset 101 P Offset 157 T Offset 464 QTC Fredericia 451 Diagnosis Unusual P axis, possible ectopic atrial bradycardia Abnormal ECG When compared with ECG of 18-OCT-2024 15:40, Ectopic atrial rhythm has replaced Sinus rhythm Confirmed by Nima Putnam ([id number]) on 01/19/2025 3:58:15 PM Normal [facility] BASIC METABOLIC PANEL WITH A ZACK FERREIRAon 01-13-2025 Calcium [Mass/Vol] 8.8 mg/dL Normal 8.6-10.3 [facility] Comment on above: Order Comment: FASTI NG:YES FASTING: YES Performed By: #### 9 610, 6399 #### [facility] [address], [address] [place] [address] Ring Stamper: Delgado Miller MD Chloride [Moles/Vol] 106 mmol/L Normal 98-110 [facility] Comment on above: Order Comment: FASTI NG:YES FASTING: YES Performed By: #### 9 478, 6399 #### [facility] [address], [address] [place] [address] Ring Stamper: Delgado Miller MD CO2 [Moles/Vol] 24 mmol/L Normal 20-32 [facility] Comment on above: Order Comment: FASTI NG:YES FASTING: YES Performed By: #### 9 743, 6399 #### [facility] [address], [address] [place] [address] Ring Stamper: Delgado Miller MD Creatinine [Mass/Vol] 2.06 mg/dL High 0.70-1.[address] [facility] Comment on above: Order Comment: FASTI NG:YES FASTING: YES Performed By: #### 9 575, 6399 #### [facility] [address], [address] [place] [address] Ring Stamper: Delgado Miller MD ELECTROLYTE BALANCE 10 mmol/L (calc) Normal 7-17 [facility] Comment on above: Order Comment: FASTI NG:YES FASTING: YES Performed By: #### 9 094, 6399 #### [facility] [place] [address] Ring Stamper: Delgado Miller MD GFR/1.73 sq M.predicted among non-blacks MDRD (S/P/Bld) [Vol rate/Area] 31 mL/min/{1.73_m2} Low > OR = 60 [facility] Comment on above: Order Comment: FASTI NG:YES FASTING: YES Performed By: #### 9 8008, 6399 #### [facility] [address], [address] [place] [address] Ring Stamper: Delgado Miller MD Glucose [Mass/Vol] 118 mg/dL High 65-99 [facility] Comment on above: Order Comment: FASTI NG:YES FASTING: YES Result Comment: Fasting reference interval For someone without known diabetes, a glucose value between 100 and 125 mg/dL is consistent with prediabetes and should be confirmed with a follow-up test. Performed By: #### 9 8168, 6399 #### [facility] [address], [address] [place] [address] Ring Stamper: Delgdao Miller MD Potassium [Moles/Vol] 5.0 mmol/L Normal 3.5-5.3 [facility] Comment on above: Order Comment: FASTI NG:YES FASTING: YES Performed By: #### 9 642, 6399 #### [facility] [address], [address] [place] [address] Ring Stamper: Delgado Miller MD Sodium [Moles/Vol] 140 mmol/L Normal 135-146 [facility] Comment on above: Order Comment: FASTI NG:YES FASTING: YES Performed By: #### 9 501, 6399 #### [facility] [address], [address] [place] [address] Ring Stamper: Delgado Miller MD Urea nitrogen [Mass/Vol] 31 mg/dL High 7-25 [facility] Comment on above: Order Comment: FASTI NG:YES FASTING: YES Performed By: #### 9 758, 6399 #### [facility] [place] [address] Ring Stamper: Delgado Miller MD Urea nitrogen/Creatinine [Mass ratio] 15 mg/mg Normal 6-22 [facility] Comment on above: Order Comment: FASTI NG:YES FASTING: YES Performed By: #### 9 995, 6399 #### [facility] of [place] [address] Ring Stamper: Delgado Miller MD CBC (INCLUDES DIFF/PLT)on Basophils (Bld) [#/Vol] 0.078 10*3/uL Normal 0-200 [facility] Comment on above: Performed By: #### 9 8, 6399 #### [facility] of [address], [address] [place] [address] Ring Stamper: Delgado Miller MD Basophils/100 WBC (Bld) 0.8 % Normal [facility] Comment on above: Performed By: #### 9 8, 6399 #### [facility] [place] [address] Ring Stamper: Delgado Miller MD Eosinophils (Bld) [#/Vol] 0.737 10*3/uL High 15-500 [facility] Comment on above: Performed By: #### 9 2497, 6399 #### [facility] [place] [address] Ring Stamper: Delgado Miller MD Eosinophils/100 WBC (Bld) 7.6 % Normal [facility] Comment on above: Performed By: #### 9 2497, 6399 #### [facility] [place] [address] Ring Stamper: Delgado Miller MD Erythrocyte distribution width (RBC) [Ratio] 15.1 % High 11.0-15.0 [facility] Comment on above: Performed By: #### 9 2497, 6399 #### [facility] [place] [address] Ring Stamper: Delgado Miller MD Hematocrit (Bld) [Volume fraction] 37.0 % Low 38.5-50.0 [facility] Comment on above: Performed By: #### 9 2497, 6399 #### [facility] [place] [address] Ring Stamper: Delgado Miller MD Hemoglobin (Bld) [Mass/Vol] 11.9 g/dL Low 13.2-17.1 [facility] Comment on above: Performed By: #### 9 2497, 6399 #### [facility] [place] [address] Ring Stamper: Delgado iMller MD Lymphocytes (Bld) [#/Vol] 3.094 10*3/uL Normal 850-3900 [facility] Comment on above: Performed By: #### 9 2497, 6399 #### [facility] of [address], [address] [place] [address] Ring Stamper: Delgado Miller MD Lymphocytes/100 WBC (Bld) 31.9 % Normal [facility] Comment on above: Performed By: #### 9 2497, 6399 #### [facility] [place] [address] Ring Stamper: Delgado Miller MD MCH (RBC) [Entitic mass] 29.9 pg Normal 27.0-33.0 [facility] Comment on above: Performed By: #### 9 2497, 6399 #### [facility] [place] [address] Ring Stamper: Delgado Miller MD MCHC (RBC) [Mass/Vol] 32.2 g/dL Normal 32.0-36.[address] [facility] Comment on above: Result Comment: For adults, a slight decrease in the calculated MCHC value (in the range of 30 to 32 g/dL) is most likely not clinically significant; however, it should be interpreted with caution in correlation with other red cell parameters and the patient's clinical condition. Performed By: #### 9 2497, 6399 #### [facility] [place] [address] Ring Stamper: Delgado Miller MD MCV (RBC) [Entitic vol] 93.0 fL Normal 80.0-100.0 [facility] Comment on above: Performed By: #### 9 2497, 6399 #### [facility] [place] [address] Ring Stamper: Delgado Miller MD Monocytes (Bld) [#/Vol] 0.621 10*3/uL Normal 200-950 [facility] Comment on above: Performed By: #### 9 8, 6399 #### [facility] of [address], [address] [place] [address] Ring Stamper: Delgado Miller MD Monocytes/100 WBC (Bld) 6.4 % Normal [facility] Comment on above: Performed By: #### 9 2497, 6399 #### [facility] [place] [address] Ring Stamper: Delgado Miller MD Neutrophils (Bld) [#/Vol] 5.17 10*3/uL Normal 3401-7691 [facility] Comment on above: Performed By: #### 9 2497, 6399 #### [facility] [place] [address] Ring Stamper: Delgado Miller MD Neutrophils/100 WBC (Bld) 53.3 % Normal [facility] Comment on above: Performed By: #### 9 8, 6399 #### [facility] [place] [address] Ring Stamper: Delgado Miller MD Platelet mean volume (Bld) [Entitic vol] 10.8 fL Normal 7.5-12.5 [facility] Comment on above: Performed By: #### 9 2497, 6399 #### [facility] [place] [address] Ring Stamper: Delgado Miller MD Platelets (Bld) [#/Vol] 208 10*3/uL Normal 140-400 [facility] Comment on above: Performed By: #### 9 2497, 6399 #### [facility] [place] [address] Ring Stamper: Delgado Miller MD RBC (Bld) [#/Vol] 3.98 10*6/uL Low 4.20-5.80 [facility] Comment on above: Performed By: #### 9 3198, 6399 #### [facility] [address], [address] Ring Stamper: Delgado Miller MD WBC (Bld) [#/Vol] 9.7 10*3/uL Normal 3.8-10.8 [facility] Comment on above: Performed By: #### 9 3628, 6399 #### [facility] [address], [address] [place] [address] Ring Stamper: Delagdo Miller MD ECG 12 lead (Clinic Performe d)on 12-08-2024 EKG showed sinus rhy thm with non-specific ST-T changes. [facility] Work Phone: FL FLUORO IMAGES NO CHARGEon 10-28-2024 FL FLUORO IMAGES NO CHARGE These images are not reportable by radiology and will not be interpreted by Radiologists. Normal [facility] Glucose Test strip manual (B ld) [Mass/Vol]on 10-28-2024 Glucose [Mass/Vol] 109 mg/dL High 74-99 [facility] Comment on above: Performed By: #### 2 341-6 ####ROQUE JONO ([id number])[facility])[address] [place] [address] CBC panel Auto (Bld)on 10-20 Erythrocyte distribution width (RBC) [Ratio] 14.6 % High 11.5 - 14.5 % [facility] Hematocrit (Bld) [Volume fraction] 27.7 % Low 41.0 - 52.0 % [facility] Hemoglobin (Bld) [Mass/Vol] 9.1 g/dL Low 13.5 - 17.5 g/dL [facility] Interpretation and review of laboratory results Abnormal [facility] MCH (RBC) [Entitic mass] 30.6 pg 26.0 - 34.0 pg [facility] MCHC (RBC) [Mass/Vol] 32.9 g/dL 32.0 - 36.0 g/dL [facility] MCV (RBC) [Entitic vol] 93 fL 80 - 100 fL [facility] Nucleated RBC/100 WBC (Bld) [Ratio] 0 % [facility] Platelets (Bld) [#/Vol] 218 10*3/uL [facility] RBC (Bld) [#/Vol] 2.97 10*6/uL Low [facility] WBC (Bld) [#/Vol] 9.2 10*3/uL [facility] Erythrocyte distribution width (RBC) [Ratio] 14.6 % High 11.5-14.5 [facility] Comment on above: Performed By: #### 5 8410-2 ####MYA DE LA CRUZ ([id number])[facility] ([facility])[address] [place] [address] Hematocrit (Bld) [Volume fraction] 27.7 % Low 41.0-52.0 [facility] Comment on above: Performed By: #### 5 8410-2 ####MYA DE LA CRUZ ([id number])[facility] ([facility])[address] [place] [address] Hemoglobin (Bld) [Mass/Vol] 9.1 g/dL Low 13.5-17.5 [facility] Comment on above: Performed By: #### 5 8410-2 ####MYA DE LA CRUZ ([id number])[facility] ([facility])[address] [place] [address]67 MCH (RBC) [Entitic mass] 30.6 pg Normal 26.0-34.0 [facility] Comment on above: Performed By: #### 5 8410-2 ####MYA DE LA CRUZ ([id number])[facility])[address] [place] [address] MCHC (RBC) [Mass/Vol] 32.9 g/dL Normal 32.0-36.0 [facility] Comment on above: Performed By: #### 5 8410-2 ####MYA DE LA CRUZ ([id number])[facility])[address] [place] [address] MCV (RBC) [Entitic vol] 93 fL Normal 80-100 [facility] Comment on above: Performed By: #### 5 8410-2 ####MYA DE LA CRUZ ([id number])[facility])[address] [place] [address] Nucleated RBC/100 WBC (Bld) [Ratio] 0.0 /100 WBCs Normal 0.0-0.0 [facility] Comment on above: Performed By: #### 5 8410-2 ####MYA DE LA CRUZ ([id number])[facility])[address] [place] [address]288 Platelets (Bld) [#/Vol] 218 x10*3/uL Normal 150-450 [facility] Comment on above: Performed By: #### 5 8410-2 ####MYA DE LA CRUZ ([id number])[facility])[address] [place] [address]23 RBC (Bld) [#/Vol] 2.97 x10*6/uL Low 4.50-5.90 [facility] Comment on above: Performed By: #### 5 8410-2 ####MYA DE LA CRUZ ([id number])[facility])[address] [place] [address] WBC (Bld) [#/Vol] 9.2 x10*3/uL Normal 4.4-11.3 [facility] Comment on above: Performed By: #### 5 8410-2 ####MYA DE LA CRUZ ([id number])[facility])[address] [place] [address] Glucose Test strip manual (B ld) [Mass/Vol]on 10-20-2024 Glucose [Mass/Vol] 124 mg/dL High 74 - 99 mg/dL [facility] Interpretation and review of laboratory results Abnormal [facility] Glucose [Mass/Vol] 124 mg/dL High 74-99 [facility] Comment on above: Performed By: #### 2 341-6 ####MYA DE LA CRUZ ([id number])[facility])[address] [place] [address] Glucose [Mass/Vol] 201 mg/dL High 74 - 99 mg/dL [facility] Interpretation and review of laboratory results Abnormal [facility] Glucose [Mass/Vol] 201 mg/dL High 74-99 [facility] Comment on above: Performed By: #### 2 341-6 ####MYA DE LA CRUZ ([id number])[facility])[address] [place] [address] Glucose [Mass/Vol] 125 mg/dL High 74 - 99 mg/dL [facility] Interpretation and review of laboratory results Abnormal [facility] Glucose [Mass/Vol] 125 mg/dL High 74-99 [facility] Comment on above: Performed By: #### 2 341-6 ####YMA DE LA CRUZ ([id number])[facility])[address] [place], [place] [address] Magnesiumon 10-20-2024 Magnesium [Mass/Vol] 1.45 mg/dL Low 1.60 - 2.40 mg/dL [facility] Magnesium [Mass/Vol] 1.45 mg/dL Low 1.60-2.40 [facility] Comment on above: Performed By: #### 1 9123-9 ####MYA DE LA CRUZ ([id number])[facility])[address] [place] [address] No Panel Informationon 10-20 Interpretation and review of laboratory results Abnormal [facility] Renal function 2000 panelon 10-20-2024 Albumin BCP dye [Mass/Vol] 3.2 g/dL Low 3.4 - 5.0 g/dL [facility] Anion gap [Moles/Vol] 12 mmol/L 10 - 2 0 mmol/L [facility] Calcium [Mass/Vol] 8.4 mg/dL Low 8.6 - 10. 3 mg/dL [facility] Chloride [Moles/Vol] 107 mmol/L 98 - 10 7 mmol/L [facility] CO2 [Moles/Vol] 21 mmol/L 21 - 32 mmol/L [facility] Creatinine [Mass/Vol] 2.29 mg/dL High 0.50 - 1.30 mg/dL [facility] GFR/1.73 sq M.predicted among non-blacks MDRD (S/P/Bld) [Vol rate/Area] 27 mL/min/{1.73_m2} Low - PINF [facility] Comment on above: Calculations of apoorva mated GFR are performed using the 2020 CKD-EPI Study Refit equation without the race variable for the IDMS-Traceable creatinine methods. https://jasn.asnjournals.org/content/early//ASN.722437 4072 Glucose [Mass/Vol] 128 mg/dL High 74 - 99 mg/dL [facility] Phosphate [Mass/Vol] 3.2 mg/dL 2.5 - 4 .9 mg/dL [facility] Comment on above: The performance mily acteristics of phosphorus testing in heparinized plasma have been validated by the individual laboratory site where testing is performed. Testing on heparinized plasma is not approved by the FDA; however, such approval is not necessary. Potassium [Moles/Vol] 4.9 mmol/L 3.5 - 5.3 mmol/L [facility] Sodium [Moles/Vol] 135 mmol/L Low 136 - 145 mmol/L [facility] Urea nitrogen [Mass/Vol] 35 mg/dL High 6 - 23 mg/dL [facility] Albumin BCP dye [Mass/Vol] 3.2 g/dL Low 3.4-5.0 [facility] Comment on above: Performed By: #### 2 4362-6 ####MYA DE LA CRUZ ([id number])[facility])[address] [place] [address] Anion gap [Moles/Vol] 12 mmol/L Normal 10-20 [facility] Comment on above: Performed By: #### 2 4362-6 ####MYA DE LA CRUZ ([id number])[facility])[address] [place] [address]63 Calcium [Mass/Vol] 8.4 mg/dL Low 8.6-10.3 [facility] Comment on above: Performed By: #### 2 4362-6 ####MYA DE LA CRUZ ([id number])[facility])[address] [place] [address]68 Chloride [Moles/Vol] 107 mmol/L Normal 98-107 [facility] Comment on above: Performed By: #### 2 4362-6 ####MYA DE LA CRUZ ([id number])[facility])[address] [place] [address] 57531 CO2 [Moles/Vol] 21 mmol/L Normal 21-32 [facility] Comment on above: Performed By: #### 2 4362-6 ####MYA DE LA CRUZ ([id number])[facility])[address] [place] [address]41 Creatinine [Mass/Vol] 2.29 mg/dL High 0.50-1.30 [facility] Comment on above: Performed By: #### 2 4362-6 ####MYA DE LA CRUZ ([id number])[facility])[address] [place] [address] 30199 Glomerular filtration rate/1.73 sq M.predicted 27 mL/min/1.73m*2 Low >60 [facility] Comment on above: Result Comment: Calc ulations of estimated GFR are performed using the 2020 CKD-EPI Study Refit equation without the race variable for the IDMS-Traceable creatinine methods. https://jasn.asnjournals.org/content/early//ASN.165574 8633 Performed By: #### 2 4362-6 ####MYA DE LA CRUZ ([id number])[facility])[address] [place] [address]853 Glucose [Mass/Vol] 128 mg/dL High 74-99 [facility] Comment on above: Performed By: #### 2 4362-6 ####MYA DE LA CRUZ ([id number])[facility])[address] [place] [address] 68817 Phosphate [Mass/Vol] 3.2 mg/dL Normal 2.5-4.9 [facility] Comment on above: Result Comment: The performance characteristics of phosphorus testing in heparinized plasma have been validated by the individual laboratory site where testing is performed. Testing on heparinized plasma is not approved by the FDA; however, such approval is not necessary. Performed By: #### 2 4362-6 ####MYA DE LA CRUZ ([id number])[facility])[address] [place] [address]2352 Potassium [Moles/Vol] 4.9 mmol/L Normal 3.5-5.3 [facility] Comment on above: Performed By: #### 2 4362-6 ####MYA DE LA CRUZ ([id number])[facility])[address] [place] [address]645 Sodium [Moles/Vol] 135 mmol/L Low 136-145 [facility] Comment on above: Performed By: #### 2 4362-6 ####MYA DE LA CRUZ ([id number])[facility])[address] [place] [address] 30632 Urea nitrogen [Mass/Vol] 35 mg/dL High 6-23 [facility] Comment on above: Performed By: #### 2 4362-6 ####MYA DE LA CRUZ ([id number])[facility])[address] [place] [address] 16071 TRANSTHORACIC ECHO (TTE) COM PLETEon 10-20-2024 TRANSTHORACIC ECHO (TTE) [place] [id number] [phone], TRANSTHORACIC ECHOCARDIOGRAM REPORT Patient Name: KITTY Walker Physician: [id number] Santiago Marquez MD Study Date: 10/20/2024 Ordering Provider: [id number] ZANA MATHEWS MRN/PID: [id number] Fellow: Nurse: Ayaka Hernandez RN Date of /Age: 1007/06/1940 Manager Garden: Mary galeano RVT, RCS Gender Assigned at M Additional Staff: : Height: 177.80 cm Admit Date: 10/18/2024 Weight: 104.33 kg Admission Status: Inpatient - Routine BSA / BMI: 2.22 m2 / 33.00 Department Location: [address] kg/m2 Blood Pressure: 160 /86 mmHg Study Type: TRANSTHORACIC ECHO (TTE) COMPLETE Diagnosis/ICD: Bradycardia, unspecified-R00.1; Unspecified atrial fibrillation-I48.91 Indication: Francisco,AFib CPT Codes: Echo Complete w Full Doppler-15556 Patient History: Pertinent History: Previous echo 03-28-23. Study Detail: The following Echo studies were performed: 2D, M-Mode, Doppler and color flow. Definity used as a contrast agent for endocardial border definition. A bubble study was not performed. The patient was awake. PHYSICIAN INTERPRETATION: Left Ventricle: Left ventricular ejection fraction is normal, calculated by Villalobos's biplane at 67%. The patient is in atrial fibrillation which may influence the estimate of left ventricular function and transvalvular flows. There are no regional wall motion abnormalities. The left ventricular cavity size is normal. There is mild increased septal and mildly increased posterior left ventricular wall thickness. There is left ventricular concentric remodeling. Spectral Doppler shows a Grade II (pseudonormal pattern) of left ventricular diastolic filling with an elevated left atrial pressure. Left Atrium: The left atrium is normal in size. A bubble study using agitated saline was not performed. Right Ventricle: The right ventricle is normal in size. There is normal right ventricular global systolic function. Right Atrium: The right atrium is normal in size. Aortic Valve: The aortic valve is trileaflet. There is evidence of moderate to severe aortic valve stenosis. The aortic valve dimensionless index is 0.23. There is no evidence of aortic valve regurgitation. The peak instantaneous gradient of the aortic valve is 73 mmHg. The mean gradient of the aortic valve is 44 mmHg. Mitral Valve: The mitral valve is normal in structure. There is mild mitral valve regurgitation. Tricuspid Valve: The tricuspid valve is structurally normal. There is trace tricuspid regurgitation. Pulmonic Valve: The pulmonic valve is not well visualized. There is no indication of pulmonic valve regurgitation. Pericardium: No pericardial effusion noted. Aorta: The aortic root is normal. CONCLUSIONS: 1. Poorly visualized anatomical structures due to suboptimal image quality. 2. Left ventricular ejection fraction is normal, calculated by Villalobos's biplane at 67%. 3. Spectral Doppler shows a Grade II (pseudonormal pattern) of left ventricular diastolic filling with an elevated left atrial pressure. 4. There is normal right ventricular global systolic function. 5. Moderate to severe aortic valve stenosis. 6. Compared to prior TTE dated 03/28/2023 - aortic stenosis has progressed and now appears to be moderate-severe. 7. The patient is in atrial fibrillation which may influence the estimate of left ventricular function and transvalvular flows. QUANTITATIVE DATA SUMMARY: 2D MEASUREMENTS: Normal Ranges: Ao Root d: 3.10 cm (2.0-3.7cm) LAs: 3.70 cm (2.7-4.0cm) IVSd: 1.35 cm (0.6-1.1cm) LVPWd: 1.38 cm (0.6-1.1cm) LVIDd: 4.65 cm (3.9-5.9cm) LVIDs: 3.06 cm LV Mass Index: 113.5 g/m2 LV % FS 34.2 % LA VOLUME: Normal Ranges: LA Vol A4C: 31.2 ml (22+/-6mL/m2) LA Vol A2C: 54.6 ml LA Vol BP: 43.6 ml LA Vol Index A4C: 14.1ml/m2 LA Vol Index A2C: 24.7 ml/m2 LA Vol Index BP: 19.7 ml/m2 LA Area A4C: 14.7 cm2 LA Area A2C: 18.4 cm2 LA Major Goltry A4C: 5.9 cm LA Major Goltry A2C: 5.3 cm LA Volume Index: 24.0 ml/m2 LA Vol A4C: 31.4 ml LA Vol A2C: 53.3 ml LA Vol Index BSA: 19.1 ml/m2 M-MODE MEASUREMENTS: Normal Ranges: AoV Exc: 0.90 cm (1.5-2.5cm) AORTA MEASUREMENTS: Normal Ranges: AoV Exc: 0.90 cm (1.5-2.5cm) LV SYSTOLIC FUNCTION BY 2D PLANIMETRY (MOD): Normal Ranges: EF-A4C View: 63 % (>=55%) EF-A2C View: 71 % EF-Biplane: 67 % LV EF Reported: 67 % LV DIASTOLIC FUNCTION: Normal Ranges: MV Peak E: 1.26 m/s (0.7-1.2 m/s) MV Peak A: 1.18 m/s (0.42-0.7 m/s) E/A Ratio: 1.07 (1.0-2.2) MV e' 0.089 m/s (>8.0) MV lateral e' 0.07 m/s MV medial e' 0.11 m/s E/e' Ratio: 14.21 (<8.0) MITRAL VALVE: Normal Ranges: MV DT: 289 msec (150-240msec) MITRAL INSUFFICIENCY: Normal Ranges: MR Vmax: 351.00 cm/s AORTIC VALVE: Normal Ranges: AoV Vmax: 4.26 m/s (<=1.7m/s) AoV Peak P.6 mmHg (<20mmHg) AoV Mean P.0 m (more content not included)... Normal [facility] US Heart TransthoracicOrdere d By: Santiago Marquez on 10-20-2024 Aortic Valve Area by Continuity of Peak Velocity 0.98 cm2 [facility] Work Phone: Aortic Valve Area by Continuity of VTI 0.87 cm2 [facility] Work Phone: AV mn grad 44 mmHg [facility] Work Phone: AV pk grad 73 mmHg [facility] Work Phone: AV pk clyde 4.26 m/s [facility] Work Phone: LA vol index A/L 19.7 ml/m2 [facility] Work Phone: LV A4C EF 62.7 [facility] Work Phone: LV Biplane EF 67 % [facility] Work Phone: LV EF 67 % [facility] Work Phone: LVIDd 4.65 cm [facility] Work Phone: LVOT diam 2.2 cm [facility] Work Phone: MV E/A ratio 1.07 [facility] Work Phone: RVSP 45.5 mmHg [facility] Work Phone: Tricuspid annular plane systolic excursion 2.1 cm [facility] Work Phone: [facility] Work Phone: [place] [address] ext-[phone], TRANSTHORACIC ECHOCARDIOGRAM REPORT Patient Name: KITTY VERGARA Reading Physician: [id number] Santiago Marquez MD Study Date: 10/20/2024 Ordering Provider: [id number] ZANA MATHEWS MRN/PID: [id number] Fellow: Nurse: Ayaka Hernandez RN Date of /Age: 1007/06/1940 Manager Garden: Mary TOROT, RCS Gender Assigned at M Additional Staff: : Height: 177.80 cm Admit Date: 10/18/2024 Weight: 104.33 kg Admission Status: Inpatient - Routine BSA / BMI: 2.22 m2 / 33.00 Department Location: [address] kg/m2 Blood Pressure: 160 /86 mmHg Study Type: TRANSTHORACIC ECHO (TTE) COMPLETE Diagnosis/ICD: Bradycardia, unspecified-R00.1; Unspecified atrial fibrillation-I48.91 Indication: Francisco,AFib CPT Codes: Echo Complete w Full Doppler-05805 Patient History: Pertinent History: Previous echo 03-28-23. Study Detail: The following Echo studies were performed: 2D, M-Mode, Doppler and color flow. Definity used as a contrast agent for endocardial border definition. A bubble study was not performed. The patient was awake. PHYSICIAN INTERPRETATION: Left Ventricle: Left ventricular ejection fraction is normal, calculated by Villalobos's biplane at 67%. The patient is in atrial fibrillation which may influence the estimate of left ventricular function and transvalvular flows. There are no regional wall motion abnormalities. The left ventricular cavity size is normal. There is mild increased septal and mildly increased posterior left ventricular wall thickness. There is left ventricular concentric remodeling. Spectral Doppler shows a Grade II (pseudonormal pattern) of left ventricular diastolic filling with an elevated left atrial pressure. Left Atrium: The left atrium is normal in size. A bubble study using agitated saline was not performed. Right Ventricle: The right ventricle is normal in size. There is normal right ventricular global systolic function. Right Atrium: The right atrium is normal in size. Aortic Valve: The aortic valve is trileaflet. There is evidence of moderate to severe aortic valve stenosis. The aortic valve dimensionless index is 0.23. There is no evidence of aortic valve regurgitation. The peak instantaneous gradient of the aortic valve is 73 mmHg. The mean gradient of the aortic valve is 44 mmHg. Mitral Valve: The mitral valve is normal in structure. There is mild mitral valve regurgitation. Tricuspid Valve: The tricuspid valve is structurally normal. There is trace tricuspid regurgitation. Pulmonic Valve: The pulmonic valve is not well visualized. There is no indication of pulmonic valve regurgitation. Pericardium: No pericardial effusion noted. Aorta: The aortic root is normal. CONCLUSIONS: 1. Poorly visualized anatomical structures due to suboptimal image quality. 2. Left ventricular ejection fraction is normal, calculated by Villalobos's biplane at 67%. 3. Spectral Doppler shows a Grade II (pseudonormal pattern) of left ventricular diastolic filling with an elevated left atrial pressure. 4. There is normal right ventricular global systolic function. 5. Moderate to severe aortic valve stenosis. 6. Compared to prior TTE dated 03/28/2023 - aortic stenosis has progressed and now appears to be moderate-severe. 7. The patient is in atrial fibrillation which may influence the estimate of left ventricular function and transvalvular flows. QUANTITATIVE DATA SUMMARY: 2D MEASUREMENTS: Normal Ranges: Ao Root d: 3.10 cm (2.0-3.7cm) LAs: 3.70 cm (2.7-4.0cm) IVSd: 1.35 cm (0.6-1.1cm) LVPWd: 1.38 cm (0.6-1.1cm) LVIDd: 4.65 cm (3.9-5.9cm) LVIDs: 3.06 cm LV Mass Index: 113.5 g/m2 LV % FS 34.2 % LA VOLUME: Normal Ranges: LA Vol A4C: 31.2 ml (22+/-6mL/m2) LA Vol A2C: 54.6 ml LA Vol BP: 43.6 ml LA Vol Index A4C: 14.1ml/m2 LA Vol Index A2C: 24.7 ml/m2 LA Vol Index BP: 19.7 ml/m2 LA Area A4C: 14.7 cm2 LA Area A2C: 18.4 cm2 LA Major Goltry A4C: 5.9 cm LA Major Goltry A2C: 5.3 cm LA Volume Index: 24.0 ml/m2 LA Vol A4C: 31.4 ml LA Vol A2C: 53.3 ml LA Vol Index BSA: 19.1 ml/m2 M-MODE MEASUREMENTS: Normal Ranges: AoV Exc: (more content not included)... Santiago Franco MD - 10/20/2024 [place] [address] [phone], TRANSTHORACIC ECHOCARDIOGRAM REPORT Patient Name: KITTY Peña JAI Reading Physician: [id number] Santiago Marquez MD Study Date: 10/20/2024 Ordering Provider: [id number] ZANA MATHEWS MRN/PID: [id number] Fellow: Nurse: Ayaka Hernandez RN Date of /Age: 1007/06/1940 Manager Garden: Mary galeano RVT, RCS Gender Assigned at M Additional Staff: : Height: 177.80 cm Admit Date: 10/18/2024 Weight: 104.33 kg Admission Status: Inpatient - Routine BSA / BMI: 2.22 m2 / 33.00 Department Location: [address] kg/m2 Blood Pressure: 160 /86 mmHg Study Type: TRANSTHORACIC ECHO (TTE) COMPLETE Diagnosis/ICD: Bradycardia, unspecified-R00.1; Unspecified atrial fibrillation-I48.91 Indication: Francisco,AFib CPT Codes: Echo Complete w Full [id number] Patient History: Pertinent History: Previous echo 03-28-23. Study Detail: The following Echo studies were performed: 2D, M-Mode, Doppler and color flow. Definity used as a contrast agent for endocardial border definition. A bubble study was not performed. The patient was awake. PHYSICIAN INTERPRETATION: Left Ventricle: Left ventricular ejection fraction is normal, calculated by Villalobos's biplane at 67%. The patient is in atrial fibrillation which may influence the estimate of left ventricular function and transvalvular flows. There are no regional wall motion abnormalities. The left ventricular cavity size is normal. There is mild increased septal and mildly increased posterior left ventricular wall thickness. There is left ventricular concentric remodeling. Spectral Doppler shows a Grade II (pseudonormal pattern) of left ventricular diastolic filling with an elevated left atrial pressure. Left Atrium: The left atrium is normal in size. A bubble study using agitated saline was not performed. Right Ventricle: The right ventricle is normal in size. There is normal right ventricular global systolic function. Right Atrium: The right atrium is normal in size. Aortic Valve: The aortic valve is trileaflet. There is evidence of moderate to severe aortic valve stenosis. The aortic valve dimensionless index is 0.23. There is no evidence of aortic valve regurgitation. The peak instantaneous gradient of the aortic valve is 73 mmHg. The mean gradient of the aortic valve is 44 mmHg. Mitral Valve: The mitral valve is normal in structure. There is mild mitral valve regurgitation. Tricuspid Valve: The tricuspid valve is structurally normal. There is trace tricuspid regurgitation. Pulmonic Valve: The pulmonic valve is not well visualized. There is no indication of pulmonic valve regurgitation. Pericardium: No pericardial effusion noted. Aorta: The aortic root is normal. CONCLUSIONS: 1. Poorly visualized anatomical structures due to suboptimal image quality. 2. Left ventricular ejection fraction is normal, calculated by Villalobos's biplane at 67%. 3. Spectral Doppler shows a Grade II (pseudonormal pattern) of left ventricular diastolic filling with an elevated left atrial pressure. 4. There is normal right ventricular global systolic function. 5. Moderate to severe aortic valve stenosis. 6. Compared to prior TTE dated 03/28/2023 - aortic stenosis has progressed and now appears to be moderate-severe. 7. The patient is in atrial fibrillation which may influence the estimate of left ventricular function and transvalvular flows. QUANTITATIVE DATA SUMMARY: 2D MEASUREMENTS: Normal Ranges: Ao Root d: 3.10 cm (2.0-3.7cm) LAs: 3.70 cm (2.7-4.0cm) IVSd: 1.35 cm (0.6-1.1cm) LVPWd: 1.38 cm (0.6-1.1cm) LVIDd: 4.65 cm (3.9-5.9cm) LVIDs: 3.06 cm LV Mass Index: 113.5 g/m2 LV % FS 34.2 % LA VOLUME: Normal Ranges: LA Vol A4C: 31.2 ml (22+/-6mL/m2) LA Vol A2C: 54.6 ml LA Vol BP: 43.6 ml LA Vol Index A4C: 14.1ml/m2 LA Vol Index A2C: 24.7 ml/m2 LA Vol Index BP: 19.7 ml/m2 LA Area A4C: 14.7 cm2 LA Area A2C: 18.4 cm2 LA Major Goltry A4C: 5.9 cm LA Major Goltry A2C: 5.3 cm LA Volume Index: 24.0 ml/m2 LA Vol A4C: 31.4 ml LA Vol A2C: 53.3 ml LA Vol Index BSA: 19.1 ml/m2 M-MODE MEASUREMENTS: Normal Ranges: AoV Exc: 0.90 cm (1.5-2.5cm) AORTA MEASUREMENTS: Normal Ranges: AoV Exc: 0.90 cm (1.5-2.5cm) LV SYSTOLIC FUNCTION BY 2D PLANIMETRY (MOD): Normal Ranges: EF-A4C View: 63 % (>=55%) EF-A2C View: 71 % EF-Biplane: 67 % LV EF Reported: 67 % LV DIASTOLIC FUNCTION: Normal Ranges: MV Peak E: 1.26 m/s (0.7-1.2 m/s) MV Peak A: 1.18 m/s (0.42-0.7 m/s) E/A Ratio: 1.07 (1.0-2.2) MV e' 0.089 m/s (>8.0) MV lateral e' 0.07 m/s MV medial e' 0.11 m/s E/e' Ratio: 14.21 (<8.0) MITRAL VALVE: Normal Ranges: MV DT: 289 msec (150-240msec) MITRAL INSUFFICIENCY: Normal Ranges: MR Vmax: 351.00 cm/s A (more content not included)... [facility] Work Phone: Basic metabolic 2000 panelon 10-19-2024 Anion gap [Moles/Vol] 13 mmol/L 10 - 2 0 mmol/L [facility] Calcium [Mass/Vol] 8.1 mg/dL Low 8.6 - 10. 3 mg/dL [facility] Chloride [Moles/Vol] 108 mmol/L High 98 - 10 7 mmol/L [facility] CO2 [Moles/Vol] 20 mmol/L Low 21 - 32 mmol/L [facility] Creatinine [Mass/Vol] 2.66 mg/dL High 0.50 - 1.30 mg/dL [facility] GFR/1.73 sq M.predicted among non-blacks MDRD (S/P/Bld) [Vol rate/Area] 23 mL/min/{1.73_m2} Low - PINF [facility] Comment on above: Calculations of apoorva mated GFR are performed using the 2020 CKD-EPI Study Refit equation without the race variable for the IDMS-Traceable creatinine methods. https://jasn.asnjournals.org/content/early//ASN.619386 8361 Glucose [Mass/Vol] 174 mg/dL High 74 - 99 mg/dL [facility] Interpretation and review of laboratory results Abnormal [facility] Potassium [Moles/Vol] 4.7 mmol/L 3.5 - 5.3 mmol/L [facility] Sodium [Moles/Vol] 136 mmol/L 136 - 145 mmol/L [facility] Urea nitrogen [Mass/Vol] 45 mg/dL High 6 - 23 mg/dL [facility] Anion gap [Moles/Vol] 13 mmol/L Normal 10-20 [facility] Comment on above: Performed By: #### 8 9577-1 #### MAY DE LA CRUZ ([id number]) [facility]) [address] [place] [address] Calcium [Mass/Vol] 8.1 mg/dL Low 8.6-10.3 [facility] Comment on above: Performed By: #### 8 9577-1 #### MYA DE LA CRUZ ([id number]) [facility] ([facility]) [address] [place] [address] Chloride [Moles/Vol] 108 mmol/L High 98-107 [facility] Comment on above: Performed By: #### 8 9577-1 #### MYA DE LA CRUZ ([id number]) [facility]) [address] [place] [address] CO2 [Moles/Vol] 20 mmol/L Low 21-32 [facility] Comment on above: Performed By: #### 8 9577-1 #### MYA DE LA CRUZ ([id number]) [facility]) [facility] [place] [address] Creatinine [Mass/Vol] 2.66 mg/dL High 0.50-1.30 [facility] Comment on above: Performed By: #### 8 9577-1 #### MYA DE LA CRUZ ([id number]) [facility] ([facility]) [address] [place] [address] Glomerular filtration rate/1.73 sq M.predicted 23 mL/min/1.73m*2 Low >60 [facility] Comment on above: Result Comment: Calc ulations of estimated GFR are performed using the 2020 CKD-EPI Study Refit equation without the race variable for the IDMS-Traceable creatinine methods. https://jasn.asnjournals.org/content//ASN.330429 8186 Performed By: #### 8 9577-1 #### MYA DE LA CRUZ ([id number]) [facility] ([facility]) [address] [place] [address] Glucose [Mass/Vol] 174 mg/dL High 74-99 [facility] Comment on above: Performed By: #### 8 9577-1 #### MYA DE LA CRUZ ([id number]) [facility]) [address] [place] [address] Potassium [Moles/Vol] 4.7 mmol/L Normal 3.5-5.3 [facility] Comment on above: Performed By: #### 8 9577-1 #### MYA DE LA CRUZ ([id number]) [facility] ([facility]) [address] [place] [address] Sodium [Moles/Vol] 136 mmol/L Normal 136-145 [facility] Comment on above: Performed By: #### 8 9577-1 #### MYA DE LA CRUZ ([id number]) [facility]) [address] [place] [address] Urea nitrogen [Mass/Vol] 45 mg/dL High 6-23 [facility] Comment on above: Performed By: #### 8 9577-1 #### MYA DE LA CRUZ ([id number]) [facility]) [address] [place] [address] CBC panel Auto (Bld)on 10-19 Erythrocyte distribution width (RBC) [Ratio] 14.4 % 11.5 - 14.5 % [facility] Hematocrit (Bld) [Volume fraction] 26.3 % Low 41.0 - 52.0 % [facility] Hemoglobin (Bld) [Mass/Vol] 8.9 g/dL Low 13.5 - 17.5 g/dL [facility] MCH (RBC) [Entitic mass] 31.4 pg 26.0 - 34.0 pg [facility] MCHC (RBC) [Mass/Vol] 33.8 g/dL 32.0 - 36.0 g/dL [facility] MCV (RBC) [Entitic vol] 93 fL 80 - 100 fL [facility] Nucleated RBC/100 WBC (Bld) [Ratio] 0 % [facility] Platelets (Bld) [#/Vol] 217 10*3/uL [facility] RBC (Bld) [#/Vol] 2.83 10*6/uL Low [facility] WBC (Bld) [#/Vol] 11 10*3/uL [facility] Erythrocyte distribution width (RBC) [Ratio] 14.4 % Normal 11.5-14.5 [facility] Comment on above: Performed By: #### 8 9577-1 #### MYA DE LA CRUZ ([id number]) [facility]) [address] [place] [address] Hematocrit (Bld) [Volume fraction] 26.3 % Low 41.0-52.0 [facility] Comment on above: Performed By: #### 8 9577-1 #### MYA DE LA CRUZ ([id number]) [facility]) [address] [place] [address] 14973 Hemoglobin (Bld) [Mass/Vol] 8.9 g/dL Low 13.5-17.5 [facility] Comment on above: Performed By: #### 8 9577-1 #### MYA DE LA CRUZ ([id number]) [facility]) [address] [place] [address] 21768 MCH (RBC) [Entitic mass] 31.4 pg Normal 26.0-34.0 [facility] Comment on above: Performed By: #### 8 9577-1 #### MYA DE LA CRUZ ([id number]) [facility]) [address] [place] [address] 59143 MCHC (RBC) [Mass/Vol] 33.8 g/dL Normal 32.0-36.0 [facility] Comment on above: Performed By: #### 8 9577-1 #### MYA DE LA CRUZ ([id number]) [facility]) [address] [place] [address] 75125 MCV (RBC) [Entitic vol] 93 fL Normal 80-100 [facility] Comment on above: Performed By: #### 8 9577-1 #### MYA DE LA CRUZ ([id number]) [facility]) [address] [place] [address] 77153 Nucleated RBC/100 WBC (Bld) [Ratio] 0.0 /100 WBCs Normal 0.0-0.0 [facility] Comment on above: Performed By: #### 8 9577-1 #### MYA DE LA CRUZ ([id number]) [facility]) [address] [place] [address] 64193 Platelets (Bld) [#/Vol] 217 x10*3/uL Normal 150-450 [facility] Comment on above: Performed By: #### 8 9577-1 #### MYA DE LA CRUZ ([id number]) [facility]) [address] [place] [address] 08148 RBC (Bld) [#/Vol] 2.83 x10*6/uL Low 4.50-5.90 [facility] Comment on above: Performed By: #### 8 9577-1 #### MYA DE LA CRUZ ([id number]) [facility]) [address] [place] [address]47[address] WBC (Bld) [#/Vol] 11.0 x10*3/uL Normal 4.4-11.3 [facility] Comment on above: Performed By: #### 8 9577-1 #### MYA DE LA CRUZ ([id number]) [facility]) [address] [place] [address] Cobalamin (Vitamin B12) [Mas s/Vol]on 10-19-2024 Interpretation and review of laboratory results Normal [facility] Cobalaminson 10-19-2024 Cobalamin (Vitamin B12) [Mass/Vol] 265 pg/mL Normal 211-911 [facility] Comment on above: Performed By: #### 2 132-9 ####MYA DE LA CRUZ ([id number])[facility] ([facility])[address] [place] [address] Ferritinon 10-19-2024 Ferritin [Mass/Vol] 440 ng/mL High 20 - 300 ng/mL [facility] Ferritin [Mass/Vol] 440 ng/mL High 20-300 [facility] Comment on above: Performed By: #### 8 9577-1 #### MYA DE LA CRUZ ([id number]) [facility]) [address] [place], [place] [id number] Folateon 10-19-2024 Folate [Mass/Vol] 4.9 ng/mL Low 5.0 - PINF ng/mL [facility] Folate [Mass/Vol] 4.9 ng/mL Low >5.0 [facility] Comment on above: Order Comment: Less than 99th percentile of normal range cutoff- Female and children under 18 years old <14 ng/L; Male <21 ng/L: Negative Repeat testing should be performed if clinically indicated. Female and children under 18 years old 14-50 ng/L; Male 21-50 ng/L: Consistent with possible cardiac damage and possible increased clinical risk. Serial measurements may help to assess extent of myocardial damage. >50 ng/L: Consistent with cardiac damage, increased clinical risk and myocardial infarction. Serial measurements may help assess extent of myocardial damage. NOTE: Children less than 1 year old may have higher baseline troponin levels and results should be interpreted in conjunction with the overall clinical context. NOTE: Troponin I testing is performed using a different testing methodology at [facility] than at other [facility]. Direct result comparisons should only be made within the same method. Performed By: #### 8 9577-1 #### MYA DE LA CRUZ ([id number]) [facility]) [address] [place] [address] Folate [Mass/Vol]on 10-19-19 Interpretation and review of laboratory results Abnormal [facility] Low <3.4 Borderline 3.4-5.0 Normal >5.0 Patients receiving more than 5 mg/day of biotin may have interference in test results. A sample should be taken no sooner than eight hours after previous dose. Contact the testing laboratory for additional information. [facility] Glucose Test strip manual (B ld) [Mass/Vol]on 10-19-2024 Glucose [Mass/Vol] 150 mg/dL High 74 - 99 mg/dL [facility] Interpretation and review of laboratory results Abnormal [facility] Glucose [Mass/Vol] 150 mg/dL High 74-99 [facility] Comment on above: Performed By: #### 2 341-6 ####MYA DE LA CRUZ ([id number])[facility])[address] [place] [address] Glucose [Mass/Vol] 148 mg/dL High 74 - 99 mg/dL [facility] Interpretation and review of laboratory results Abnormal [facility] Glucose [Mass/Vol] 148 mg/dL High 74-99 [facility] Comment on above: Performed By: #### 2 341-6 ####MYA DE LA CRUZ ([id number])[facility] ([facility])[address] [place] [address] Glucose [Mass/Vol] 111 mg/dL High 74 - 99 mg/dL [facility] Interpretation and review of laboratory results Abnormal [facility] Glucose [Mass/Vol] 111 mg/dL High 74-99 [facility] Comment on above: Performed By: #### 2 341-6 ####MYA DE LA CRUZ ([id number])[facility] ([facility])[address] [place] [address] Iron and Iron binding capaci ty panelon 10-19-2024 Iron [Mass/Vol] 23 ug/dL Low 35 - 150 ug/dL [facility] Iron binding capacity [Mass/Vol] 204 ug/dL Low 240 - 445 ug/dL [facility] Iron binding capacity.unsaturated [Mass/Vol] 181 ug/dL 110 - 370 ug/dL [facility] Iron saturation [Mass fraction] 11 % Low 25 - 45 % [facility] Iron [Mass/Vol] 23 ug/dL Low 35-150 [facility] Comment on above: Performed By: #### 8 9577-1 #### MYA DE LA CRUZ ([id number]) [facility]) [address] [place] [address] Iron binding capacity [Mass/Vol] 204 ug/dL Low 240-445 [facility] Comment on above: Performed By: #### 8 9577-1 #### MYA DE LA CRUZ ([id number]) [facility]) [address] [place] [address] 19554 Iron binding capacity.unsaturated [Mass/Vol] 181 ug/dL Normal 110-370 [facility] Comment on above: Performed By: #### 8 9577-1 #### MYA DE LA CRUZ ([id number]) [facility]) [address] [place] [address] Iron saturation [Mass fraction] 11 % Low 25-45 [facility] Comment on above: Performed By: #### 8 9577-1 #### MYA DE LA CRUZ ([id number]) [facility]) [address] [place] [address] No Panel Informationon 10-19 Interpretation and review of laboratory results Abnormal [facility] Interpretation and review of laboratory results Abnormal [facility] Reticulocytes panel (Bld)on 10-19-2024 Hemoglobin (Reticulocytes) [Entitic mass] 33 pg 28 - 38 pg [facility] Immature Retic fraction 16.6 % High NINF - 16.0 % [facility] Comment on above: Reticulocytes are me asured based on a fluorescent technique. The IRF, or immature reticulocyte fraction, is the percent of reticulocytes that show medium (MFR) or high (HFR) fluorescence. This value can be used to assess the relative maturity of the reticulocyte population in response to anemia. The "shift reticulocytes" are not measured by this technique, eliminating the need for their correction in the reticulocyte index. Reticulocytes (Bld) [#/Vol] 0.044 10*3/uL [facility] Reticulocytes/100 RBC (Bld) 1.5 % 0.5 - 2.0 % [facility] Hemoglobin (Reticulocytes) [Entitic mass] 33 pg Normal 28-38 [facility] Comment on above: Performed By: #### 8 9577-1 #### MYA DE LA CRUZ ([id number]) [facility]) [address] [place] [address] IMMATURE RETIC FRACTION 16.6 % High <=16.0 [facility] Comment on above: Result Comment: Reti culocytes are measured based on a fluorescent technique. The IRF, or immature reticulocyte fraction, is the percent of reticulocytes that show medium (MFR) or high (HFR) fluorescence. This value can be used to assess the relative maturity of the reticulocyte population in response to anemia. The "shift reticulocytes" are not measured by this technique, eliminating the need for their correction in the reticulocyte index. Performed By: #### 8 9577-1 #### MYA DE LA CRUZ ([id number]) [facility]) [address] [place] [address] 15968 Reticulocytes (Bld) [#/Vol] 0.044 x10*6/uL Normal 0.017-0.110 [facility] Comment on above: Performed By: #### 8 9577-1 #### MYA DE LA CRUZ ([id number]) [facility]) [address] [place] [address]387 Reticulocytes/100 RBC (Bld) 1.5 % Normal 0.5-2.0 [facility] Comment on above: Performed By: #### 8 9577-1 #### MYA DE LA CRUZ ([id number]) [facility]) [address] [place] [address] TSH WITH REFLEX TO FREE T4 I F ABNORMALon 10-19-2024 TSH Qn 2.35 m[IU]/L Normal 0.44-3.98 [facility] Comment on above: Order Comment: Less than 99th percentile of normal range cutoff- Female and children under 18 years old <14 ng/L; Male <21 ng/L: Negative Repeat testing should be performed if clinically indicated. Female and children under 18 years old 14-50 ng/L; Male 21-50 ng/L: Consistent with possible cardiac damage and possible increased clinical risk. Serial measurements may help to assess extent of myocardial damage. >50 ng/L: Consistent with cardiac damage, increased clinical risk and myocardial infarction. Serial measurements may help assess extent of myocardial damage. NOTE: Children less than 1 year old may have higher baseline troponin levels and results should be interpreted in conjunction with the overall clinical context. NOTE: Troponin I testing is performed using a different testing methodology at [facility] than at other [facility]. Direct result comparisons should only be made within the same method. Performed By: #### 8 9577-1 #### MYA DE LA CRUZ ([id number]) [facility]) [address] [place] [address]65[address] TSH with reflex to Free T4 i f abnormalon 10-19-2024 Interpretation and review of laboratory results Normal [facility] TSH Qn 2.35 m[IU]/L [facility] TSH testing is performed using different testing methodology at [facility] than at other [facility]. Direct result comparisons should only be made within the same method. [facility] Urinalysis complete W Reflex Culture panel (U)on 10-19-2024 Appearance (U) Clear Clear [facility] Bilirubin (U) [Mass/Vol] Negative NEGATIVE [facility] Color (U) Light-Yellow Light-Yellow , Yellow, Dark-Yellow [facility] Glucose Auto test strip (U) [Mass/Vol] Normal Normal mg/dL [facility] Interpretation and review of laboratory results Normal [facility] Ketones (U) [Mass/Vol] Negative NEGATIVE mg/dL [facility] Leukocyte esterase Auto test strip Ql (U) Negative NEGATIVE [facility] Nitrite Auto test strip Ql (U) Negative NEGATIVE [facility] pH (U) 5.5 [pH] 5.0, 5.5, 6.0, 6.5, 7.0, 7.5, 8.0 [facility] Protein (U) [Mass/Vol] Negative NEGATIVE, 10 (TRACE), 20 (TRACE) mg/dL [facility] RBC (U) [#/Vol] Negative NEGATIVE [facility] Specific gravity (U) [Rel density] 1.011 1.005 - 1.035 [facility] Urobilinogen (U) [Mass/Vol] Normal Normal mg/dL [facility] Appearance (U) Clear Normal Clear [facility] Comment on above: Performed By: #### 8 9577-1 #### MYA DE LA CRUZ ([id number]) [facility] ([facility]) [address] [place] [address] 83508 Bilirubin (U) [Mass/Vol] Negative Normal NEGATIVE [facility] Comment on above: Performed By: #### 8 9577-1 #### MYA DE LA CRUZ ([id number]) [facility] ([facility]) [address] [place] [address] 87310 Color (U) Light-Yellow Normal Light-Yellow , Yellow, Dark-Yellow [facility] Comment on above: Performed By: #### 8 9577-1 #### MYA DE LA CRUZ ([id number]) [facility] ([facility]) [address] [place] [address] 14506 Glucose Auto test strip (U) [Mass/Vol] Normal Normal Normal [facility] Comment on above: Performed By: #### 8 9577-1 #### MYA DE LA CRUZ ([id number]) [facility] ([facility]) [address] [place] [address] 81150 Ketones (U) [Mass/Vol] Negative Normal NEGATIVE [facility] Comment on above: Performed By: #### 8 9577-1 #### MYA DE LA CRUZ ([id number]) [facility] ([facility]) [address] [place] [address] 55867 Leukocyte esterase Auto test strip Ql (U) Negative Normal NEGATIVE [facility] Comment on above: Performed By: #### 8 9577-1 #### MYA DE LA CRUZ ([id number]) [facility] ([facility]) [address] [place] [address] 28702 Nitrite Auto test strip Ql (U) Negative Normal NEGATIVE [facility] Comment on above: Performed By: #### 8 9577-1 #### MYA DE LA CRUZ ([id number]) [facility] ([facility]) [address] [place] [address] 65083 pH (U) 5.5 [pH] Normal 5.0, 5.5, 6.0, 6.5, 7.0, 7.5, 8.0 [facility] Comment on above: Performed By: #### 8 9577-1 #### MYA DE LA CRUZ ([id number]) [facility] ([facility]) [address] [place] [address] 22530 Protein (U) [Mass/Vol] Negative Normal NEGATIVE, 10 (TRACE), 20 (TRACE) [facility] Comment on above: Performed By: #### 8 9577-1 #### MYA DE LA CRUZ ([id number]) [facility] ([facility]) [address] [place] [address] 36021 RBC (U) [#/Vol] Negative Normal NEGATIVE [facility] Comment on above: Performed By: #### 8 9577-1 #### MYA DE LA CRUZ ([id number]) [facility] ([facility]) [address] [place], [place] [address] Specific gravity (U) [Rel density] 1.011 Normal 1.005-1.035 [facility] Comment on above: Performed By: #### 8 9577-1 #### MYA DE LA CRUZ ([id number]) [facility] ([facility]) [address] [place], [place] [address] Urobilinogen (U) [Mass/Vol] Normal Normal Normal [facility] Comment on above: Performed By: #### 8 9577-1 #### MYA DE LA CRUZ ([id number]) [facility] ([facility]) [address] [place], [place] [address] Vitamin B12on 10-19-2024 Cobalamin (Vitamin B12) [Mass/Vol] 265 pg/mL 211 - 911 pg/mL [facility] Bacteria identifiedon 2024 Bacteria identified Cx Nom (Bld) Test: Blood Culture Specimen Source: Peripheral Venipuncture Specimen Type: Blood culture Specimen Date: 10/18/2024 160 Result Date: 10/23/2024200 Result Status: Final result Abnormal: No Resulting Lab: [facility] [address] [place] [address] CULTURE No growth at 4 days - FINAL REPORT Normal [facility] Comment on above: Performed By: #### 8 9577-1 #### MYA DE LA CRUZ ([id number]) [facility] ([facility]) [address] [place], [place] [address] Bacteria identified Cx Nom (Bld) Test: Blood Culture Specimen Source: Peripheral Venipuncture Specimen Type: Blood culture Specimen Date: 10/18/2024 1559 Result Date: 10/23/2024200 Result Status: Final result Abnormal: No Resulting Lab: [facility] [address] [address] CULTURE No growth at 4 days - FINAL REPORT Normal [facility] Comment on above: Performed By: #### 8 9577-1 #### MYA DE LA CRUZ ([id number]) [facility] ([facility]) [address] [place] [address] CBC panel Auto (Bld)on 10-18 Erythrocyte distribution width (RBC) [Ratio] 14.6 % High 11.5 - 14.5 % [facility] Hematocrit (Bld) [Volume fraction] 28.8 % Low 41.0 - 52.0 % [facility] Hemoglobin (Bld) [Mass/Vol] 9.2 g/dL Low 13.5 - 17.5 g/dL [facility] Interpretation and review of laboratory results Abnormal [facility] MCH (RBC) [Entitic mass] 30.2 pg 26.0 - 34.0 pg [facility] MCHC (RBC) [Mass/Vol] 31.9 g/dL Low 32.0 - 36.0 g/dL [facility] MCV (RBC) [Entitic vol] 94 fL 80 - 100 fL [facility] Nucleated RBC/100 WBC (Bld) [Ratio] 0 % [facility] Platelets (Bld) [#/Vol] 217 10*3/uL [facility] RBC (Bld) [#/Vol] 3.05 10*6/uL Low [facility] WBC (Bld) [#/Vol] 11.2 10*3/uL [facility] Erythrocyte distribution width (RBC) [Ratio] 14.6 % High 11.5-14.5 [facility] Comment on above: Performed By: #### 2 341-6 #### MYA DE LA CRUZ ([id number]) [facility] ([facility]) [address] [place] [address] Hematocrit (Bld) [Volume fraction] 28.8 % Low 41.0-52.0 [facility] Comment on above: Performed By: #### 2 341-6 #### MYA DE LA CRUZ ([id number]) [facility] ([facility]) [address] [place] [address] 67837 Hemoglobin (Bld) [Mass/Vol] 9.2 g/dL Low 13.5-17.5 [facility] Comment on above: Performed By: #### 2 341-6 #### MYA DE LA CRUZ ([id number]) [facility] ([facility]) [address] [place] [address] 44710 MCH (RBC) [Entitic mass] 30.2 pg Normal 26.0-34.0 [facility] Comment on above: Performed By: #### 2 341-6 #### MYA DE LA CRUZ ([id number]) [facility] ([facility]) [address] [place] [address] 82551 MCHC (RBC) [Mass/Vol] 31.9 g/dL Low 32.0-36.0 [facility] Comment on above: Performed By: #### 2 341-6 #### MYA DE LA CRUZ ([id number]) [facility] ([facility]) [address] [place], [place] [address] MCV (RBC) [Entitic vol] 94 fL Normal 80-100 [facility] Comment on above: Performed By: #### 2 341-6 #### MYA DE LA CRUZ ([id number]) [facility] ([facility]) [address] [place] [address] 92111 Nucleated RBC/100 WBC (Bld) [Ratio] 0.0 /100 WBCs Normal 0.0-0.0 [facility] Comment on above: Performed By: #### 2 341-6 #### MYA DE LA CRUZ ([id number]) [facility] ([facility]) [address] [place] [address] 71398 Platelets (Bld) [#/Vol] 217 x10*3/uL Normal 150-450 [facility] Comment on above: Performed By: #### 2 341-6 #### MYA DE LA CRUZ ([id number]) [facility] ([facility]) [address] [place] [address] 83729 RBC (Bld) [#/Vol] 3.05 x10*6/uL Low 4.50-5.90 [facility] Comment on above: Performed By: #### 2 341-6 #### MYA DE LA CRUZ ([id number]) [facility] ([facility]) [address] [place] [address] 08895 WBC (Bld) [#/Vol] 11.2 x10*3/uL Normal 4.4-11.3 [facility] Comment on above: Performed By: #### 2 341-6 #### MYA DE LA CRUZ ([id number]) [facility] ([facility]) [address] [place] [address] CT HEAD WO IV CONTRASTon CT HEAD WO IV CONTRAST Interpreted By: Shey Morgan, STUDY: CT HEAD WO IV CONTRAST; 10/18/2024 4:38 pm INDICATION: Signs/Symptoms:syncope. COMPARISON: None. ACCESSION NUMBER(S): [id number] ORDERING CLINICIAN: WALDEMAR COX TECHNIQUE: Unenhanced CT images of the head were obtained. FINDINGS: The ventricles, cisterns and sulci are enlarged, consistent with diffuse volume loss. There are areas of nonspecific white matter hypodensity, which are probably age related or microvascular in nature. Few dots of air near the sella and another in the right facial soft tissues. No acute intracranial hemorrhage or mass-effect. No midline shift. No extra-axial fluid collection. No focal calvarial lesion. Mild bilateral ethmoid sinus mucosal thickening. Remaining visualized paranasal sinuses are clear. IMPRESSION: No acute intracranial hemorrhage or mass-effect. Dots of intracranial air near the sella, uncertain etiology and significance but perhaps intravascular/iatrogeni c. Clinical correlation recommended. Mild bilateral ethmoid sinus mucosal thickening. MACRO: None. Signed by: Shey Morgan 10/18/2024 4:51 PM Dictation workstation: [id number] [facility] CT Head WO contraston 2024 No acute intracrania l hemorrhage or mass-effect. Dots of intracranial air near the sella, uncertain etiology and significance but perhaps intravascular/iatrogeni c. Clinical correlation recommended. Mild bilateral ethmoid sinus mucosal thickening. MACRO: None. Signed by: Shey Morgan 10/18/2024 4:51 PM Dictation workstation: [id number] [facility] Interpreted By: Shey Leos, STUDY: CT HEAD WO IV CONTRAST; 10/18/2024 4:38 pm INDICATION: Signs/Symptoms:syncope. COMPARISON: None. ACCESSION NUMBER(S): [id number] ORDERING CLINICIAN: WALDEMAR COX TECHNIQUE: Unenhanced CT images of the head were obtained. FINDINGS: The ventricles, cisterns and sulci are enlarged, consistent with diffuse volume loss. There are areas of nonspecific white matter hypodensity, which are probably age related or microvascular in nature. Few dots of air near the sella and another in the right facial soft tissues. No acute intracranial hemorrhage or mass-effect. No midline shift. No extra-axial fluid collection. No focal calvarial lesion. Mild bilateral ethmoid sinus mucosal thickening. Remaining visualized paranasal sinuses are clear. [facility] Shey Morgan MD - 10/18/2024 Interpreted By: Shey Morgan, STUDY: CT HEAD WO IV CONTRAST; 10/18/2024 4:38 pm INDICATION: Signs/Symptoms:syncope. COMPARISON: None. ACCESSION NUMBER(S): [id number] ORDERING CLINICIAN: WALDEMAR COX TECHNIQUE: Unenhanced CT images of the head were obtained. FINDINGS: The ventricles, cisterns and sulci are enlarged, consistent with diffuse volume loss. There are areas of nonspecific white matter hypodensity, which are probably age related or microvascular in nature. Few dots of air near the sella and another in the right facial soft tissues. No acute intracranial hemorrhage or mass-effect. No midline shift. No extra-axial fluid collection. No focal calvarial lesion. Mild bilateral ethmoid sinus mucosal thickening. Remaining visualized paranasal sinuses are clear. IMPRESSION: No acute intracranial hemorrhage or mass-effect. Dots of intracranial air near the sella, uncertain etiology and significance but perhaps intravascular/iatrogeni c. Clinical correlation recommended. Mild bilateral ethmoid sinus mucosal thickening. MACRO: None. Signed by: Shey Morgan 10/18/2024 4:51 PM Dictation workstation: [id number] [facility] Work Phone: Radiology Study observation (narrative) [facility] Work Phone: CT Head WO contrastOrdered B y: Shey Morgan on 10-18-2024 [facility] Work Phone: Comprehensive metabolic 2000 panelon 10-18-2024 Albumin BCP dye [Mass/Vol] 3.4 g/dL 3.4 - 5.0 g/dL [facility] ALP [Catalytic activity/Vol] 100 U/L 33 - 136 U/L [facility] ALT With P-5'-P [Catalytic activity/Vol] 7 U/L Low 10 - 52 U/L [facility] Comment on above: Patients treated wit h Sulfasalazine may generate falsely decreased results for ALT. Anion gap [Moles/Vol] 14 mmol/L 10 - 2 0 mmol/L [facility] AST With P-5'-P [Catalytic activity/Vol] 12 U/L 9 - 39 U/L [facility] Bilirubin [Mass/Vol] 0.5 mg/dL 0.0 - 1 .2 mg/dL [facility] Calcium [Mass/Vol] 8.3 mg/dL Low 8.6 - 10. 3 mg/dL [facility] Chloride [Moles/Vol] 107 mmol/L 98 - 10 7 mmol/L [facility] CO2 [Moles/Vol] 19 mmol/L Low 21 - 32 mmol/L [facility] Creatinine [Mass/Vol] 3.13 mg/dL High 0.50 - 1.30 mg/dL [facility] GFR/1.73 sq M.predicted among non-blacks MDRD (S/P/Bld) [Vol rate/Area] 19 mL/min/{1.73_m2} Low - PINF [facility] Comment on above: Calculations of apoorva mated GFR are performed using the 2020 CKD-EPI Study Refit equation without the race variable for the IDMS-Traceable creatinine methods. https://jasn.asnjournals.org/content//ASN.050026 3280 Glucose [Mass/Vol] 159 mg/dL High 74 - 99 mg/dL [facility] Interpretation and review of laboratory results Abnormal [facility] Potassium [Moles/Vol] 4.7 mmol/L 3.5 - 5.3 mmol/L [facility] Protein [Mass/Vol] 6.9 g/dL 6.4 - 8.2 g/dL [facility] Sodium [Moles/Vol] 135 mmol/L Low 136 - 145 mmol/L [facility] Urea nitrogen [Mass/Vol] 47 mg/dL High 6 - 23 mg/dL [facility] Albumin BCP dye [Mass/Vol] 3.4 g/dL Normal 3.4-5.0 [facility] Comment on above: Performed By: #### 5 7021-8 #### MYA DE LA CRUZ ([id number]) [facility]) [address] [place] [address] 28833 ALP [Catalytic activity/Vol] 100 U/L Normal 33-136 [facility] Comment on above: Performed By: #### 5 7021-8 #### MYA DE LA CRUZ ([id number]) [facility] ([facility]) [address] [place] [address] 16101 ALT With P-5'-P [Catalytic activity/Vol] 7 U/L Low 10-52 [facility] Comment on above: Result Comment: Jaci ents treated with Sulfasalazine may generate falsely decreased results for ALT. Performed By: #### 5 7021-8 #### MYA DE LA CRUZ ([id number]) [facility] ([facility]) [address] [place] [address] 29035 Anion gap [Moles/Vol] 14 mmol/L Normal 10-20 [facility] Comment on above: Performed By: #### 5 7021-8 #### MYA DE LA CRUZ ([id number]) [facility]) [address] [place] [address] 75260 AST With P-5'-P [Catalytic activity/Vol] 12 U/L Normal 9-39 [facility] Comment on above: Performed By: #### 5 7021-8 #### MAY DE LA CRUZ ([id number]) [facility]) [address] [place] [address] 49324 Bilirubin [Mass/Vol] 0.5 mg/dL Normal 0.0-1.2 [facility] Comment on above: Performed By: #### 5 7021-8 #### MYA DE LA CRUZ ([id number]) [facility]) [address] [place] [address] 72374 Calcium [Mass/Vol] 8.3 mg/dL Low 8.6-10.3 [facility] Comment on above: Performed By: #### 5 7021-8 #### MYA DE LA CRUZ ([id number]) [facility]) [address] [place] [address] 75969 Chloride [Moles/Vol] 107 mmol/L Normal 98-107 [facility] Comment on above: Performed By: #### 5 7021-8 #### MYA DE LA CRUZ ([id number]) [facility]) [address] [place] [address] 70961 CO2 [Moles/Vol] 19 mmol/L Low 21-32 [facility] Comment on above: Performed By: #### 5 7021-8 #### MYA DE LA CRUZ ([id number]) [facility]) [address] [place] [address] 54404 Creatinine [Mass/Vol] 3.13 mg/dL High 0.50-1.30 [facility] Comment on above: Performed By: #### 5 7021-8 #### MYA DE LA CRUZ ([id number]) [facility]) [address] [place] [address] 47802 Glomerular filtration rate/1.73 sq M.predicted 19 mL/min/1.73m*2 Low >60 [facility] Comment on above: Result Comment: Calc ulations of estimated GFR are performed using the 2020 CKD-EPI Study Refit equation without the race variable for the IDMS-Traceable creatinine methods. https://jasn.asnjournals.org/content//ASN.387018 0028 Performed By: #### 5 7021-8 #### MYA DE LA CRUZ ([id number]) [facility]) [address] [place] [address] 47070 Glucose [Mass/Vol] 159 mg/dL High 74-99 [facility] Comment on above: Performed By: #### 5 7021-8 #### MYA DE LA CRUZ ([id number]) [facility]) [address] [place] [address] 90613 Potassium [Moles/Vol] 4.7 mmol/L Normal 3.5-5.3 [facility] Comment on above: Performed By: #### 5 7021-8 #### MYA DE LA CRUZ ([id number]) [facility]) [address] [place] [address] 21356 Protein [Mass/Vol] 6.9 g/dL Normal 6.4-8.2 [facility] Comment on above: Performed By: #### 5 7021-8 #### MYA DE LA CRUZ ([id number]) [facility]) [address] [place] [address] 57115 Sodium [Moles/Vol] 135 mmol/L Low 136-145 [facility] Comment on above: Performed By: #### 5 7021-8 #### MYA DE LA CRUZ ([id number]) [facility]) [address] [place] [address] 41136 Urea nitrogen [Mass/Vol] 47 mg/dL High 6-23 [facility] Comment on above: Performed By: #### 5 7021-8 #### MYA DE LA CRUZ ([id number]) [facility]) [address] [place] [address] 27748 ECG 12-LEADon 10-18-2024 ECG 12-LEAD Ventricular Rate 47 Atrial Rate 47 P-R Interval 218 QRS Duration 88 Q-T Interval 514 QTC Calculation(Bazett) 454 P Goltry 63 R Goltry 17 T Goltry 97 QRS Count 8 Q Onset 217 P Onset 108 P Offset 152 T Offset 474 QTC Fredericia 473 Diagnosis Sinus bradycardia with 1st degree AV block Nonspecific T wave abnormality Abnormal ECG When compared with ECG of 29-MAY-2024 11:57, Premature atrial complexes are no longer Present See ED provider note for full interpretation and clinical correlation Confirmed by Sanya Shin ([id number]) on 10/23/2024 9:49:07 PM Normal [facility] FLUAV and FLUBV RNA MALENA+prob e Nom (Unsp spec)on 10-18-2024 FLUAV RNA MALENA+probe Ql (Resp) Not detected Not Detected [facility] FLUBV RNA MALENA+probe Ql (Resp) Not detected Not Detected [facility] This assay is an in vitro diagnostic multiplex nucleic acid amplification test for the detection and discrimination of Influenza A & B from nasopharyngeal specimens, and has been validated for use at [facility]. Negative results do not preclude Influenza A/B infections, and should not be used as the sole basis for diagnosis, treatment, or other management decisions. If Influenza A/B and RSV PCR results are negative, testing for Parainfluenza virus, Adenovirus and Metapneumovirus is routinely performed for [facility] pediatric oncology and intensive care inpatients, and is available on other patients by placing an add-on request. [facility] FLUAV RNA MALENA+probe Ql (Resp) Not detected Normal Not Detected [facility] Comment on above: Order Comment: This assay is an in vitro diagnostic multiplex nucleic acid amplification test for the detection and discrimination of Influenza A & B from nasopharyngeal specimens, and has been validated for use at [facility]. Negative results do not preclude Influenza A/B infections, and should not be used as the sole basis for diagnosis, treatment, or other management decisions. If Influenza A/B and RSV PCR results are negative, testing for Parainfluenza virus, Adenovirus and Metapneumovirus is routinely performed for [facility] pediatric oncology and intensive care inpatients, and is available on other patients by placing an add-on request. Performed By: #### 5 7021-8 #### ROQUE JONO ([id number]) [facility]) [address] [place] [address] FLUBV RNA MALENA+probe Ql (Resp) Not detected Normal Not Detected [facility] Comment on above: Order Comment: This assay is an in vitro diagnostic multiplex nucleic acid amplification test for the detection and discrimination of Influenza A & B from nasopharyngeal specimens, and has been validated for use at [facility]. Negative results do not preclude Influenza A/B infections, and should not be used as the sole basis for diagnosis, treatment, or other management decisions. If Influenza A/B and RSV PCR results are negative, testing for Parainfluenza virus, Adenovirus and Metapneumovirus is routinely performed for [facility] pediatric oncology and intensive care inpatients, and is available on other patients by placing an add-on request. Performed By: #### 5 7021-8 #### MYA DE LA CRUZ ([id number]) [facility]) [address] [place], [place] [address] Glucose Test strip manual (B ld) [Mass/Vol]on 10-18-2024 Glucose [Mass/Vol] 136 mg/dL High 74 - 99 mg/dL [facility] Interpretation and review of laboratory results Abnormal [facility] Glucose [Mass/Vol] 136 mg/dL High 74-99 [facility] Comment on above: Performed By: #### 5 7021-8 #### MYA DE LA CRUZ ([id number]) [facility]) [address] [place], [place] [address] Lactateon 10-18-2024 Lactate [Moles/Vol] 0.9 mmol/L 0.4 - 2. 0 mmol/L [facility] Lactate [Moles/Vol] 0.9 mmol/L Normal 0.4-2.0 [facility] Comment on above: Order Comment: Venip uncture immediately after or during the administration of Metamizole may lead to falsely low results. Testing should be performed immediately prior to Metamizole dosing. Performed By: #### 2 341-6 #### MYA DE LA CRUZ ([id number]) [facility]) [address] [place] [address] 10711 Lactate [Moles/Vol]on 2024 Interpretation and review of laboratory results Normal [facility] Venipuncture immediately after or during the administration of Metamizole may lead to falsely low results. Testing should be performed immediately prior to Metamizole dosing. [facility] Lipaseon 10-18-2024 Lipase [Catalytic activity/Vol] 23 U/L 9 - 82 U/L [facility] Lipase [Catalytic activity/V ol]on 10-18-2024 Interpretation and review of laboratory results Normal [facility] Venipuncture immediately after or during the administration of Metamizole may lead to falsely low results. Testing should be performed immediately prior to Metamizole dosing. [facility] Natriuretic peptide B [Mass/ Vol]on 10-18-2024 Interpretation and review of laboratory results Abnormal [facility] Natriuretic peptide B (Bld) [Mass/Vol] 321 pg/mL High 0 - 99 pg/mL [facility] <100 pg/mL - Heart failure unlikely 100-299 pg/mL - Intermediate probability of acute heart failure exacerbation. Correlate with clinical context and patient history. >=300 pg/mL - Heart Failure likely. Correlate with clinical context and patient history. BNP testing is performed using different testing methodology at [facility] than at [facility]. Direct result comparisons should only be made within the same method. [facility] Natriuretic peptide B (Bld) [Mass/Vol] 321 pg/mL High 0-99 [facility] Comment on above: Order Comment: <100 pg/mL - Heart failure [id number] pg/mL - Intermediate probability of acute heart failure exacerbation. Correlate with clinical context and patient history. >=300 pg/mL - Heart Failure likely. Correlate with clinical context and patient history.BNP testing is performed using different testing methodology at [facility] than at [facility]. Direct result comparisons should only be made within the same method. Performed By: #### 2 341-6 #### ROQUE JONO ([id number]) [facility] ([facility]) [address] [place] [address] No Panel Informationon 10-18 Interpretation and review of laboratory results Normal [facility] Radiology Study observation (narrative) [facility] Work Phone: SARS coronavirus 2 RNAon SARS-CoV-2 (COVID-19) RNA MALENA+probe Ql (Resp) Not detected Normal Not Detected [facility] Comment on above: Order Comment: This assay is an FDA-cleared, in vitro diagnostic nucleic acid amplification test for the qualitative detection and differentiation of SARS CoV-2 from nasopharyngeal specimens collected from individuals with signs and symptoms of respiratory tract infections, and has been validated for use at [facility]. Negative results do not preclude COVID-19 infections and should not be used as the sole basis for diagnosis, treatment, or other management decisions. Testing for SARS CoV-2 is recommended only for patients who meet current clinical and/or epidemiological criteria defined by federal, state, or local public health directives. Performed By: #### 5 7021-8 #### MYA DE LA CRUZ ([id number]) [facility] ([facility]) [address] [place], [place] [address] SARS-CoV-2 (COVID-19) RNA NA A+probe Ql (Resp)on 10-18-2024 This assay is an FDA-cleared, in vitro diagnostic nucleic acid amplification test for the qualitative detection and differentiation of SARS CoV-2 from nasopharyngeal specimens collected from individuals with signs and symptoms of respiratory tract infections, and has been validated for use at [facility]. Negative results do not preclude COVID-19 infections and should not be used as the sole basis for diagnosis, treatment, or other management decisions. Testing for SARS CoV-2 is recommended only for patients who meet current clinical and/or epidemiological criteria defined by federal, state, or local public health directives. [facility] Sars-CoV-2 PCRon 10-18-2024 SARS-CoV-2 (COVID-19) RNA MALENA+probe Ql (Resp) Not detected Not Detected [facility] Triacylglycerol lipaseon Lipase [Catalytic activity/Vol] 23 U/L Normal 9-82 [facility] Comment on above: Order Comment: Venip uncture immediately after or during the administration of Metamizole may lead to falsely low results. Testing should be performed immediately prior to Metamizole dosing. Performed By: #### 5 7021-8 #### MYA DE LA CRUZ ([id number]) [facility] ([facility]) [address] [place], [place] [address] Tropinin I.cardiac panel Hig h sensitivity methodon 10-18-2024 Interpretation and review of laboratory results Normal [facility] Less than 99th percentile of normal range cutoff- Female and children under 18 years old <14 ng/L; Male <21 ng/L: Negative Repeat testing should be performed if clinically indicated. Female and children under 18 years old 14-50 ng/L; Male 21-50 ng/L: Consistent with possible cardiac damage and possible increased clinical risk. Serial measurements may help to assess extent of myocardial damage. >50 ng/L: Consistent with cardiac damage, increased clinical risk and myocardial infarction. Serial measurements may help assess extent of myocardial damage. NOTE: Children less than 1 year old may have higher baseline troponin levels and results should be interpreted in conjunction with the overall clinical context. NOTE: Troponin I testing is performed using a different testing methodology at [facility] than at [facility]. Direct result comparisons should only be made within the same method. [facility] Troponin I, High Sensitivity on 10-18-2024 Tropinin I.cardiac panel High sensitivity method 11 ng/L 0 - 20 ng/L [facility] Troponin I.cardiac panelon 0 10-18-2024 Tropinin I.cardiac panel High sensitivity method 11 ng/L Normal 0-20 [facility] Comment on above: Order Comment: Less than 99th percentile of normal range cutoff-Female and children under 18 years old <14 ng/L; Male <21 ng/L: NegativeRepeat testing should be performed if clinically indicated.Female and children under 18 years old 14-50 ng/L; Male 21-50 ng/L:Consistent with possible cardiac damage and possible increased clinicalrisk. Serial measurements may help to assess extent of myocardial damage.>50 ng/L: Consistent with cardiac damage, increased clinical risk andmyocardial infarction. Serial measurements may help assess extent ofmyocardial damage.NOTE: Children less than 1 year old may have higher baseline troponinlevels and results should be interpreted in conjunction with the overallclinical context.NOTE: Troponin I testing is performed using a differenttesting methodology at [facility] than at [facility]. Direct result comparisons should onlybe made within the same method. Performed By: #### 5 7021-8 #### ROQUE JONO ([id number]) [facility]) [address] [place] [address] XR ANKLE RIGHT 3+ VIEWSon XR ANKLE RIGHT 3+ VIEWS STUDY: Ankle Radiographs; 10/18/2024, 1605 INDICATION: Ankle pain status post fall. COMPARISON: None Available. ACCESSION NUMBER(S): [id number] ORDERING CLINICIAN: SANYA SHIN TECHNIQUE: 3 view(s) of the right ankle. FINDINGS: There is diffuse soft tissue swelling. There is no detectable displaced fracture or dislocation. Ankle mortise is symmetric. IMPRESSION: Diffuse soft tissue swelling. No detectable displaced fracture. Signed by Myke Castaneda MD [facility] XR Ankle - right 3 Viewson 0 10-18-2024 Diffuse soft tissue swelling. No detectable displaced fracture. Signed by Myke Castaneda MD TELERADIOLOGY STUDY: Ankle Radiographs; 10/18/2024, 1605 INDICATION: Ankle pain status post fall. COMPARISON: None Available. ACCESSION NUMBER(S): [id number] ORDERING CLINICIAN: SANYA SHIN TECHNIQUE: 3 view(s) of the right ankle. FINDINGS: There is diffuse soft tissue swelling. There is no detectable displaced fracture or dislocation. Ankle mortise is symmetric. TELERADIOLOGY Myke Castaneda MD - 10/18/2024 STUDY: Ankle Radiographs; 10/18/2024, 1605 INDICATION: Ankle pain status post fall. COMPARISON: None Available. ACCESSION NUMBER(S): [id number] ORDERING CLINICIAN: SANYA SHIN TECHNIQUE: 3 view(s) of the right ankle. FINDINGS: There is diffuse soft tissue swelling. There is no detectable displaced fracture or dislocation. Ankle mortise is symmetric. IMPRESSION: Diffuse soft tissue swelling. No detectable displaced fracture. Signed by Myke Castaneda MD [facility] Work Phone: [facility] Work Phone: XR CHEST 1 VIEWon 10-18-2024 XR CHEST 1 VIEW STUDY: Chest Radiograph; 10/18/2024, 1545 INDICATION: Syncope. COMPARISON: XR chest 05/29/2024, 05/28/2020 ACCESSION NUMBER(S): [id number] ORDERING CLINICIAN: SANYA SHIN TECHNIQUE: Frontal chest was obtained at 1545 hours. FINDINGS: CARDIOMEDIASTINAL SILHOUETTE: Cardiomediastinal silhouette is normal in size and configuration. LUNGS: Lungs are mildly hypoinflated with minimal bibasilar opacities, likely atelectasis. There is no pneumothorax. ABDOMEN: No remarkable upper abdominal findings. BONES: No acute osseous changes. IMPRESSION: Minimal bibasilar opacities, likely atelectasis. No detectable active cardiopulmonary disease. Signed by Myke Castaneda MD [facility] XR Chest Single viewon 10-18 Minimal bibasilar opacities, likely atelectasis. No detectable active cardiopulmonary disease. Signed by Myke Castaneda MD TELERADIOLOGY STUDY: Chest Radiograph; 10/18/2024, 1545 INDICATION: Syncope. COMPARISON: XR chest 05/29/2024, 05/28/2020 ACCESSION NUMBER(S): [id number] ORDERING CLINICIAN: SANYA SHIN TECHNIQUE: Frontal chest was obtained at 1545 hours. FINDINGS: CARDIOMEDIASTINAL SILHOUETTE: Cardiomediastinal silhouette is normal in size and configuration. LUNGS: Lungs are mildly hypoinflated with minimal bibasilar opacities, likely atelectasis. There is no pneumothorax. ABDOMEN: No remarkable upper abdominal findings. BONES: No acute osseous changes. TELERADIOLOGY Myke Castaneda MD - 10/18/2024 STUDY: Chest Radiograph; 10/18/2024, 1545 INDICATION: Syncope. COMPARISON: XR chest 05/29/2024, 05/28/2020 ACCESSION NUMBER(S): [id number] ORDERING CLINICIAN: SANYA SHIN TECHNIQUE: Frontal chest was obtained at 1545 hours. FINDINGS: CARDIOMEDIASTINAL SILHOUETTE: Cardiomediastinal silhouette is normal in size and configuration. LUNGS: Lungs are mildly hypoinflated with minimal bibasilar opacities, likely atelectasis. There is no pneumothorax. ABDOMEN: No remarkable upper abdominal findings. BONES: No acute osseous changes. IMPRESSION: Minimal bibasilar opacities, likely atelectasis. No detectable active cardiopulmonary disease. Signed by Myke Castaneda MD [facility] Work Phone: XR Chest Single viewOrdered By: Myke Castaneda on 10-18-2024 [facility] Work Phone: XR HIP RIGHT WITH PELVIS WHE N PERFORMED 2 OR 3 VIEWSon 10-18-2024 XR HIP RIGHT WITH PELVIS WHEN PERFORMED 2 OR 3 VIEWS STUDY: Pelvis and Right Hip Radiographs; 10/18/2024 6:05 PM INDICATION: Right hip pain. COMPARISON: XR bilateral hip 07/19/2023. ACCESSION NUMBER(S): [id number] ORDERING CLINICIAN: WALDEMAR COX TECHNIQUE: AP view of the pelvis and two view(s) of the right hip. FINDINGS: PELVIS: The pelvic ring is intact. There is no acute fracture. RIGHT HIP: There is no displaced fracture. The alignment is anatomic. No soft tissue abnormality is seen. IMPRESSION: No acute fracture or malalignment. Signed by Aden Narayan DO [facility] XR Hip Viewson 10-18-2024 No acute fracture or malalignment. Signed by Aden Narayan DO TELERADIOLOGY STUDY: Pelvis and Right Hip Radiographs; 10/18/2024 6:05 PM INDICATION: Right hip pain. COMPARISON: XR bilateral hip 07/19/2023. ACCESSION NUMBER(S): [id number] ORDERING CLINICIAN: WALDEMAR COX TECHNIQUE: AP view of the pelvis and two view(s) of the right hip. FINDINGS: PELVIS: The pelvic ring is intact. There is no acute fracture. RIGHT HIP: There is no displaced fracture. The alignment is anatomic. No soft tissue abnormality is seen. TELERADIOLOGY Aden Narayan DO - 10/18/2024 STUDY: Pelvis and Right Hip Radiographs; 10/18/2024 6:05 PM INDICATION: Right hip pain. COMPARISON: XR bilateral hip 07/19/2023. ACCESSION NUMBER(S): [id number] ORDERING CLINICIAN: WALDEMAR COX TECHNIQUE: AP view of the pelvis and two view(s) of the right hip. FINDINGS: PELVIS: The pelvic ring is intact. There is no acute fracture. RIGHT HIP: There is no displaced fracture. The alignment is anatomic. No soft tissue abnormality is seen. IMPRESSION: No acute fracture or malalignment. Signed by Aden Narayan DO [facility] Work Phone: Radiology Study observation (narrative) [facility] Work Phone: XR Hip ViewsOrdered By: Justo Narayan on 10-18-2024 [facility] Work Phone: Albumin/Creatinineon 025 Albumin/Creatinine DL <= 20 mg/L (U) [Mass ratio] 158.5 ug/mg Creat High <30.0 [facility] Comment on above: Performed By: #### 1 4959-1 #### MARIAM Stroud ([id number]) [facility] ([facility]) [address] [place] [address] 41470 Albumin/Creatinine DL <= 20 mg/L (U) [Mass ratio]on 09-26-2024 Albumin DL <= 20 mg/L (U) [Mass/Vol] 69.1 mg/L Normal Not established [facility] Comment on above: Performed By: #### 1 4959-1 #### MARIAM Stroud ([id number]) [facility] ([facility]) [address] [place] [address]166 Creatinine (U) [Mass/Vol] 43.6 mg/dL Normal 20.0-370.0 [facility] Comment on above: Performed By: #### 1 4959-1 #### MARIAM Stroud ([id number]) [facility] ([facility]) [address] [place] [address] 60672 Comprehensive metabolic 2000 panelon 09-26-2024 Albumin BCP dye [Mass/Vol] 4.1 g/dL Normal 3.4-5.0 [facility] Comment on above: Performed By: #### 2 4323-8 #### MYA DE LA CRUZ ([id number]) [facility] ([facility]) [address] [place] [address] 12235 ALP [Catalytic activity/Vol] 93 U/L Normal 33-136 [facility] Comment on above: Performed By: #### 2 4323-8 #### MYA DE LA CRUZ ([id number]) [facility] ([facility]) [address] [place] [address] 24432 ALT With P-5'-P [Catalytic activity/Vol] 7 U/L Low 10-52 [facility] Comment on above: Result Comment: Jaci ents treated with Sulfasalazine may generate falsely decreased results for ALT. Performed By: #### 2 4323-8 #### MYA DE LA CRUZ ([id number]) [facility] ([facility]) [address] [place] [address] Anion gap [Moles/Vol] 13 mmol/L Normal 10-20 [facility] Comment on above: Performed By: #### 2 4322-8 #### MYA DE LA CRUZ ([id number]) [facility] ([facility]) [address] [place] [address] AST With P-5'-P [Catalytic activity/Vol] 11 U/L Normal 9-39 [facility] Comment on above: Performed By: #### 2 4322-8 #### MYA DE LA CRUZ ([id number]) [facility] ([facility]) [address] [place] [address] Bilirubin [Mass/Vol] 0.7 mg/dL Normal 0.0-1.2 [facility] Comment on above: Performed By: #### 2 4322-8 #### MYA DE LA CRUZ ([id number]) [facility] ([facility]) [address] [place] [address] Calcium [Mass/Vol] 9.1 mg/dL Normal 8.6-10.3 [facility] Comment on above: Performed By: #### 2 4322-8 #### MYA DE LA CRUZ ([id number]) [facility] ([facility]) [address] [place] [address] Chloride [Moles/Vol] 101 mmol/L Normal 98-107 [facility] Comment on above: Performed By: #### 2 4322-8 #### MYA DE LA CRUZ ([id number]) [facility] ([facility]) [address] [place] [address] CO2 [Moles/Vol] 29 mmol/L Normal 21-32 [facility] Comment on above: Performed By: #### 2 4322-8 #### MYA DE LA CRUZ ([id number]) [facility] ([facility]) [address] [place] [address] Creatinine [Mass/Vol] 2.63 mg/dL High 0.50-1.30 [facility] Comment on above: Performed By: #### 2 4323-8 #### MYA DE LA CRUZ ([id number]) [facility] ([facility]) [address] [place] [address] 41404 Glomerular filtration rate/1.73 sq M.predicted 23 mL/min/1.73m*2 Low >60 [facility] Comment on above: Result Comment: Calc ulations of estimated GFR are performed using the 2020 CKD-EPI Study Refit equation without the race variable for the IDMS-Traceable creatinine methods. https://jasn.asnjournals.org/content/early//ASN.035325 6972 Performed By: #### 2 432-8 #### MYA DE LA CRUZ ([id number]) [facility] ([facility]) [address] [place] [address] 10888 Glucose [Mass/Vol] 161 mg/dL High 74-99 [facility] Comment on above: Performed By: #### 2 432-8 #### MYA DE LA CRUZ ([id number]) [facility] ([facility]) [address] [place] [address] 19474 Potassium [Moles/Vol] 3.9 mmol/L Normal 3.5-5.3 [facility] Comment on above: Performed By: #### 2 432-8 #### MYA DE LA CRUZ ([id number]) [facility] ([facility]) [address] [place] [address] 16295 Protein [Mass/Vol] 6.8 g/dL Normal 6.4-8.2 [facility] Comment on above: Performed By: #### 2 4323-8 #### MYA DE LA CRUZ ([id number]) [facility] ([facility]) [address] [place] [address] 36571 Sodium [Moles/Vol] 139 mmol/L Normal 136-145 [facility] Comment on above: Performed By: #### 2 4323-8 #### MYA DE LA CRUZ ([id number]) [facility] ([facility]) [address] [place] [address] 50411 Urea nitrogen [Mass/Vol] 37 mg/dL High 6-23 [facility] Comment on above: Performed By: #### 2 4323-8 #### MYA DE LA CRUZ ([id number]) [facility] ([facility]) [address] [place] [address] 25070 Lipid 1996 panelon 5 Cholesterol [Mass/Vol] 139 mg/dL Normal 0-199 [facility] Comment on above: Result Comment: Age Desirable Borderline High High 0-19 Y 0 - 169 170 - 199 >/= 200 20-24 Y 0 - 189 190 - 224 >/= 225 >24 Y 0 - 199 200 - 239 >/= 240 All ranges are based on fasting samples. Specific therapeutic targets will vary based on patient-specific cardiac risk. Pediatric guidelines reference:Pediatrics 2011, 128(S5).Adult guidelines reference: NCEP ATPIII Guidelines,TRAE 2001, 258:2486-97 Venipuncture immediately after or during the administration of Metamizole may lead to falsely low results. Testing should be performed immediately prior to Metamizole dosing. Performed By: #### 2 4331-1 #### MYA DE LA CRUZ ([id number]) [facility] ([facility]) [address] [place] [address] 00206 Cholesterol in HDL [Mass/Vol] 37.0 mg/dL Normal [facility] Comment on above: Result Comment: Age Very Low Low Normal High 0-19 Y < 35 < 40 40-45 ---- 20-24 Y ---- < 40 >45 ---- >24 Y ---- < 40 40-60 >60 Performed By: #### 2 4331-1 #### MYA DEL A CRUZ ([id number]) [facility] ([facility]) [address] [place] [address] 99434 Cholesterol in LDL [Mass/Vol] 42 mg/dL Normal <=99 [facility] Comment on above: Result Comment: Near Borderline AGE Desirable Optimal High High Very High 0-19 Y 0 - 109 --- 110-129 >/= 130 ---- 20-24 Y 0 - 119 --- 120-159 >/= 160 ---- >24 Y 0 - 99 100-129 130-159 160-189 >/=190 Performed By: #### 2 4331-1 #### MYA DE LA CRUZ ([id number]) [facility] ([facility]) [address] [place] [address] Cholesterol in VLDL [Mass/Vol] 60 mg/dL High 0-40 [facility] Comment on above: Performed By: #### 2 4331-1 #### MYA DE LA CRUZ ([id number]) [facility]) [facility] [place] [address] CHOLESTEROL/HDL RATIO 3.8 Normal [facility] Comment on above: Result Comment: Ref Values Desirable < 3.4 High Risk > 5.0 Performed By: #### 2 4331-1 #### MYA DE LA CRUZ ([id number]) [facility] ([facility]) [address] [place] [address] 11469 NON HDL CHOLESTEROL 102 mg/dL Normal 0-149 [facility] Comment on above: Result Comment: Age Desirable Borderline High High Very High 0-19 Y 0 - 119 120 - 144 >/= 145 >/= 160 20-24 Y 0 - 149 150 - 189 >/= 190 ---- >24 Y 30 mg/dL above LDL Cholesterol goal Performed By: #### 2 4331-1 #### MYA DE LA CRUZ ([id number]) [facility] ([facility]) [address] [place] [address] 18818 Triglyceride [Mass/Vol] 299 mg/dL High 0-149 [facility] Comment on above: Result Comment: Age Desirable Borderline High Very High SEX:B mg/dL mg/dL mg/dL mg/dL <=14D 86-277 ---- ---- ---- 15D-365D 55-277 ---- ---- ---- 1Y-9Y 0-74 75-99 >=100 ---- 10Y-19Y 0-89 90-129 >=130 ---- 20Y-24Y 0-114 115-149 >=150 ---- >= 25Y 0-149 150-199 200-499 >=500 Venipuncture immediately after or during the administration of Metamizole may lead to falsely low results. Testing should be performed immediately prior to Metamizole dosing. Performed By: #### 2 4331-1 #### MYA DE LA CRUZ ([id number]) [facility] ([facility]) [address] [place] [address] 46655 Magnesiumon 09-26-2024 Magnesium [Mass/Vol] 1.70 mg/dL Normal 1.60-2.40 [facility] Comment on above: Performed By: #### 1 9123-9 #### MYA DE LA CRUZ ([id number]) [facility] ([facility]) [address] [place] [address] 54352 Nuclear Abon 09-26-2024 Nuclear Ab Hep2 substrate Ql (S) Negative Normal Negative [facility] Comment on above: Result Comment: The Antinuclear Antibody (LUIZ) test was performed using indirect immunofluorescence assay with HEp-2 cells slide. Performed By: #### 4 548-4 #### MARIAM Stroud ([id number]) [facility] ([facility]) [id number] [place] [address] 58237 Phosphateon 09-26-2024 Phosphate [Mass/Vol] 4.5 mg/dL Normal 2.5-4.9 [facility] Comment on above: Result Comment: The performance characteristics of phosphorus testing in heparinized plasma have been validated by the individual laboratory site where testing is performed. Testing on heparinized plasma is not approved by the FDA; however, such approval is not necessary. Performed By: #### 2 777-1 #### MYA DE LA CRUZ ([id number]) [facility] ([facility]) [address] [place] [address] 57157 Thyrotropinon 09-26-2024 TSH Qn 5.03 m[IU]/L High 0.44-3.98 [facility] Comment on above: Order Comment: TSH t esting is performed using different testing methodology at [facility] than at other [facility]. Direct result comparisons should only be made within the same method. Performed By: #### 3 016-3 #### MYA DE LA CRUZ ([id number]) [facility] ([facility]) [address] [place] [address] 96662 Urateon 09-26-2024 Urate [Mass/Vol] 5.2 mg/dL Normal 4.0-7.5 [facility] Comment on above: Result Comment: Laura puncture immediately after or during the administration of Metamizole may lead to falsely low results. Testing should be performed immediately prior to Metamizole dosing. Performed By: #### 3 084-1 #### MYA DE LA CRUZ ([id number]) [facility] ([facility]) [address] [place] [address] Urinalysis complete W Reflex Culture panel (U)on 09-26-2024 Appearance (U) Clear Clear [facility] Bilirubin (U) [Mass/Vol] Negative NEGATIVE [facility] Color (U) Colorless Abnormal Light-Yellow , Yellow, Dark-Yellow [facility] Glucose Auto test strip (U) [Mass/Vol] 500 (3+) Abnormal Normal mg/dL [facility] Interpretation and review of laboratory results Abnormal [facility] Ketones (U) [Mass/Vol] Negative NEGATIVE mg/dL [facility] Leukocyte esterase Auto test strip Ql (U) Negative NEGATIVE [facility] Mucus Auto (Urine sed) [#/Area] FEW Reference range not established. /LPF [facility] Nitrite Auto test strip Ql (U) Negative NEGATIVE [facility] pH (U) 6 [pH] 5.0, 5.5, 6.0, 6.5, 7.0, 7.5, 8.0 [facility] Protein (U) [Mass/Vol] 10 (TRACE) NEGATIVE, 10 (TRACE), 20 (TRACE) mg/dL [facility] RBC (U) [#/Vol] Negative NEGATIVE [facility] RBC Auto (Urine sed) [#/Area] 1-2 NONE, 1-2, 3-5 /HPF [facility] Specific gravity (U) [Rel density] 1.010 1.005 - 1.035 [facility] Urobilinogen (U) [Mass/Vol] Normal Normal mg/dL [facility] [facility] WBC Auto (Urine sed) [#/Area] NONE 1-5, NONE /HPF [facility] Appearance (U) Clear Normal Clear [facility] Comment on above: Performed By: #### 2 341-6 #### MYA DE LA CRUZ ([id number]) [facility] ([facility]) [address] [place] [address] Bilirubin (U) [Mass/Vol] Negative Normal NEGATIVE [facility] Comment on above: Performed By: #### 2 341-6 #### MYA DE LA CRUZ ([id number]) [facility] ([facility]) [address] [place] [address] Color (U) Colorless Normal Light-Yellow , Yellow, Dark-Yellow [facility] Comment on above: Performed By: #### 2 341-6 #### MYA DE LA CRUZ ([id number]) [facility] ([facility]) [address] [place] [address] Glucose Auto test strip (U) [Mass/Vol] 500 (3+) Abnormal Normal [facility] Comment on above: Performed By: #### 2 341-6 #### MYA DE LA CRUZ ([id number]) [facility] ([facility]) [address] [place] [address] Ketones (U) [Mass/Vol] Negative Normal NEGATIVE [facility] Comment on above: Performed By: #### 2 341-6 #### MYA DE LA CRUZ ([id number]) [facility] ([facility]) [address] [place] [address] Leukocyte esterase Auto test strip Ql (U) Negative Normal NEGATIVE [facility] Comment on above: Performed By: #### 2 341-6 #### MYA DE LA CRUZ ([id number]) [facility] ([facility]) [address] [place] [address] Mucus Auto (Urine sed) [#/Area] FEW Normal Reference range not established. [facility] Comment on above: Performed By: #### 2 341-6 #### MYA DE LA CRUZ ([id number]) [facility] ([facility]) [address] [place] [address] Nitrite Auto test strip Ql (U) Negative Normal NEGATIVE [facility] Comment on above: Performed By: #### 2 341-6 #### MYA DE LA CRUZ ([id number]) [facility] ([facility]) [address] [place] [address] 01205 pH (U) 6.0 [pH] Normal 5.0, 5.5, 6.0, 6.5, 7.0, 7.5, 8.0 [facility] Comment on above: Performed By: #### 2 341-6 #### MYA DE LA CRUZ ([id number]) [facility] ([facility]) [address] [place] [address] 81121 Protein (U) [Mass/Vol] 10 (TRACE) Normal NEGATIVE, 10 (TRACE), 20 (TRACE) [facility] Comment on above: Performed By: #### 2 341-6 #### MYA DE LA CRUZ ([id number]) [facility] ([facility]) [address] [place] [address] 24296 RBC (U) [#/Vol] Negative Normal NEGATIVE [facility] Comment on above: Performed By: #### 2 341-6 #### MYA DE LA CRUZ ([id number]) [facility] ([facility]) [address] [place] [address] 56072 RBC Auto (Urine sed) [#/Area] 1-2 Normal NONE, 1-2, 3-5 [facility] Comment on above: Performed By: #### 2 341-6 #### MYA DE LA CRUZ ([id number]) [facility] ([facility]) [address] [place] [address] 29253 Specific gravity (U) [Rel density] 1.010 Normal 1.005-1.035 [facility] Comment on above: Performed By: #### 2 341-6 #### MYA DE LA CRUZ ([id number]) [facility] ([facility]) [address] [place] [address] 22148 Urobilinogen (U) [Mass/Vol] Normal Normal Normal [facility] Comment on above: Performed By: #### 2 341-6 #### MYA DE LA CRUZ ([id number]) [facility] ([facility]) [address] [place] [address] 02798 WBC Auto (Urine sed) [#/Area] NONE Normal 1-5, NONE [facility] Comment on above: Performed By: #### 2 341-6 #### MYA DE LA CRUZ ([id number]) [facility] ([facility]) [address] [place] [address] 28750 Urinalysis complete panel (U )on 09-26-2024 Appearance (U) Clear Normal Clear [facility] Comment on above: Performed By: #### 2 4356-8 #### MYA DE LA CRUZ ([id number]) [facility] ([facility]) [address] [place] [address] 45012 Bilirubin (U) [Mass/Vol] Negative Normal NEGATIVE [facility] Comment on above: Performed By: #### 2 4356-8 #### MYA DE LA CRUZ ([id number]) [facility] ([facility]) [address] [place], [place] [address] Color (U) Colorless Normal Light-Yellow , Yellow, Dark-Yellow [facility] Comment on above: Performed By: #### 2 4356-8 #### MYA DE LA CRUZ ([id number]) [facility] ([facility]) [address] [place] [address] 08136 Glucose Auto test strip (U) [Mass/Vol] 500 (3+) Abnormal Normal [facility] Comment on above: Performed By: #### 2 4356-8 #### MYA DE LA CRUZ ([id number]) [facility] ([facility]) [address] [place] [address] 31348 Ketones (U) [Mass/Vol] Negative Normal NEGATIVE [facility] Comment on above: Performed By: #### 2 4356-8 #### MYA DE LA CRUZ ([id number]) [facility] ([facility]) [address] [place] [address] 85454 Leukocyte esterase Auto test strip Ql (U) Negative Normal NEGATIVE [facility] Comment on above: Performed By: #### 2 4356-8 #### MYA DE LA CRUZ ([id number]) [facility] ([facility]) [address] [place] [address] 84708 Nitrite Auto test strip Ql (U) Negative Normal NEGATIVE [facility] Comment on above: Performed By: #### 2 4356-8 #### MYA DE LA CRUZ ([id number]) [facility] ([facility]) [address] [place] [address] 63479 pH (U) 5.5 [pH] Normal 5.0, 5.5, 6.0, 6.5, 7.0, 7.5, 8.0 [facility] Comment on above: Performed By: #### 2 4356-8 #### MYA DE LA RCUZ ([id number]) [facility] ([facility]) [address] [place] [address] 71532 Protein (U) [Mass/Vol] Negative Normal NEGATIVE, 10 (TRACE), 20 (TRACE) [facility] Comment on above: Performed By: #### 2 4356-8 #### MYA DE LA CRUZ ([id number]) [facility] ([facility]) [address] [place] [address] 62878 RBC (U) [#/Vol] Negative Normal NEGATIVE [facility] Comment on above: Performed By: #### 2 4356-8 #### MYA DE LA CRUZ ([id number]) [facility] ([facility]) [address] [place] [address] 33862 Specific gravity (U) [Rel density] 1.008 Normal 1.005-1.035 [facility] Comment on above: Performed By: #### 2 4356-8 #### MYA DE LA CRUZ ([id number]) [facility] ([facility]) [address] [place] [address] 82532 Urobilinogen (U) [Mass/Vol] Normal Normal Normal [facility] Comment on above: Performed By: #### 2 4356-8 #### MYA DE LA CRUZ ([id number]) [facility] ([facility]) [address] [place] [address] 95435 US RENAL COMPLETEon 09-23-20 24 US RENAL COMPLETE Interpreted By: Hermann Borrego, STUDY: US RENAL COMPLETE; 09/23/2024 10:34 am INDICATION: Signs/Symptoms:stage IV kidney disease. 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 ACCESSION NUMBER(S): [id number] ORDERING CLINICIAN: SRIKANTH HOWELL TECHNIQUE: Real-time sonographic evaluation of the kidneys and urinary bladder was performed. FINDINGS: RIGHT KIDNEY: Right kidney measures 10.1 cm. No shadowing calculus or right hydronephrosis is visualized. A right renal mid aspect round hypoechoic cyst measures 1.3 cm in diameter. LEFT KIDNEY: Left kidney measures 11.4 cm. No shadowing calculus or left hydronephrosis is visualized. No discrete renal lesion is visualized. BLADDER: There is prominent distention of the urinary bladder. Distended bladder has a calculated volume of 1,277 mL. There is an indeterminate small intraluminal polypoid lesion arising from the right lateral urinary bladder wall measuring 7 x 9 x 7 mm. No shadowing calculus is demonstrated. Ureteral jets are demonstrated with color Doppler imaging. There is partial visualization of heterogeneous enlarged prostate measuring 6.2 x 4.6 x 5.9 cm (volume = 88 mL). IMPRESSION: No hydronephrosis bilaterally. Prominent distention of the urinary bladder. Indeterminate subcentimeter polypoid lesion arising from the right lateral urinary bladder wall. Small urothelial neoplasm can not be excluded. Partial visualization of heterogeneous enlarged prostate. MACRO: None. Signed by: Hermann Borrego 09/25/2024 6:06 PM Dictation workstation: [id number] [facility] Comprehensive metabolic 2000 panelon 09-05-2024 Albumin BCP dye [Mass/Vol] 3.8 g/dL Normal 3.4-5.0 [facility] Comment on above: Performed By: #### 2 4323-8 #### MYA DE LA CRUZ ([id number]) [facility] ([facility]) [address] [place] [address] 73411 ALP [Catalytic activity/Vol] 88 U/L Normal 33-136 [facility] Comment on above: Performed By: #### 2 4323-8 #### MYA DE LA CRUZ ([id number]) [facility] ([facility]) [facility] [place] [address] ALT With P-5'-P [Catalytic activity/Vol] 9 U/L Low 10-52 [facility] Comment on above: Result Comment: Jaci ents treated with Sulfasalazine may generate falsely decreased results for ALT. Performed By: #### 2 4323-8 #### MYA DE LA CRUZ ([id number]) [facility] ([facility]) [address] [place] [address] Anion gap [Moles/Vol] 11 mmol/L Normal 10-20 [facility] Comment on above: Performed By: #### 2 432-8 #### MYA DE LA CRUZ ([id number]) [facility] ([facility]) [address] [place] [address] 83459 AST With P-5'-P [Catalytic activity/Vol] 12 U/L Normal 9-39 [facility] Comment on above: Performed By: #### 2 432-8 #### MYA DE LA CRUZ ([id number]) [facility] ([facility]) [address] [place] [address] 73447 Bilirubin [Mass/Vol] 0.8 mg/dL Normal 0.0-1.2 [facility] Comment on above: Performed By: #### 2 4322-8 #### MYA DE LA CRUZ ([id number]) [facility] ([facility]) [address] [place] [address] Calcium [Mass/Vol] 8.7 mg/dL Normal 8.6-10.3 [facility] Comment on above: Performed By: #### 2 432-8 #### MYA DE LA CRUZ ([id number]) [facility] ([facility]) [address] [place] [address] Chloride [Moles/Vol] 100 mmol/L Normal 98-107 [facility] Comment on above: Performed By: #### 2 4323-8 #### MYA DE LA CRUZ ([id number]) [facility] ([facility]) [address] [place] [address] 52508 CO2 [Moles/Vol] 34 mmol/L High 21-32 [facility] Comment on above: Performed By: #### 2 4323-8 #### MYA DE LA CRUZ ([id number]) [facility] ([facility]) [address] [place] [address] Creatinine [Mass/Vol] 2.19 mg/dL High 0.50-1.30 [facility] Comment on above: Performed By: #### 2 4323-8 #### MYA DE LA CRUZ ([id number]) [facility] ([facility]) [address] [place] [address] 93422 Glomerular filtration rate/1.73 sq M.predicted 29 mL/min/1.73m*2 Low >60 [facility] Comment on above: Result Comment: Calc ulations of estimated GFR are performed using the 2020 CKD-EPI Study Refit equation without the race variable for the IDMS-Traceable creatinine methods. https://jasn.asnjournals.org/content/early/ASN.271968 7900 Performed By: #### 2 432-8 #### MYA DE LA CRUZ ([id number]) [facility] ([facility]) [address] [place] [address] 76806 Glucose [Mass/Vol] 118 mg/dL High 74-99 [facility] Comment on above: Performed By: #### 2 432-8 #### MYA DE LA CRUZ ([id number]) [facility] ([facility]) [address] [place] [address] 72354 Potassium [Moles/Vol] 3.9 mmol/L Normal 3.5-5.3 [facility] Comment on above: Performed By: #### 2 432-8 #### MYA DE LA CRUZ ([id number]) [facility] ([facility]) [address] [place] [address] 29566 Protein [Mass/Vol] 6.7 g/dL Normal 6.4-8.2 [facility] Comment on above: Performed By: #### 2 4323-8 #### MYA DE LA CRUZ ([id number]) [facility] ([facility]) [address] [place] [address] 76212 Sodium [Moles/Vol] 141 mmol/L Normal 136-145 [facility] Comment on above: Performed By: #### 2 4323-8 #### MYA DE LA CRUZ ([id number]) [facility] ([facility]) [address] [place] [address] Urea nitrogen [Mass/Vol] 40 mg/dL High 6-23 [facility] Comment on above: Performed By: #### 2 4323-8 #### MYA DE LA CRUZ ([id number]) [facility] ([facility]) [address] [place] [address] HbA1c (Bld) [Mass fraction]o n 09-05-2024 Average glucose Estimated from glycated hemoglobin (Bld) [Mass/Vol] 160 mg/dL Normal Not Established [facility] Comment on above: Order Comment: Diagn osis of Diabetes-Adults Non-Diabetic: < or = 5.6% Increased risk for developing diabetes: 5.7-6.4% Diagnostic of diabetes: > or = 6.5% Performed By: #### 4 548-4 #### MARIAM Stroud ([id number]) [facility] ([facility]) [address] [place], [place] [address] Hemoglobin A1c/Hemoglobin.to pasquale 09-05-2024 HbA1c (Bld) [Mass fraction] 7.2 % High See comment [facility] Comment on above: Order Comment: Diagn osis of Diabetes-Adults Non-Diabetic: < or = 5.6% Increased risk for developing diabetes: 5.7-6.4% Diagnostic of diabetes: > or = 6.5% Performed By: #### 4 548-4 #### MARIAM Stroud ([id number]) [facility] ([facility]) [address] [place] [address] US Abdomenon 07-18-2024 These images are not reportable by radiology and will not be interpreted by Radiologists. IMAGING US Abdomenon 06-05-2024 These images are not reportable by radiology and will not be interpreted by Radiologists. IMAGING XR SHOULDER RIGHT 2+ VIEWSon 06-05-2024 XR SHOULDER RIGHT 2+ VIEWS Interpreted By: Matilde Ritter, STUDY: XR SHOULDER RIGHT 2+ VIEWS; ; 06/05/2024 8:59 am INDICATION: Signs/Symptoms:chronic right shoulder pain. COMPARISON: 3024 ACCESSION NUMBER(S): [id number] ORDERING CLINICIAN: KAPIL OROZCO TECHNIQUE: 5 radiographs of the right shoulder are performed. FINDINGS: The osseous structures are diffusely demineralized. 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 There is no widening of the joint space. 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 Subcortical cyst formation is identified in the greater tuberosity. There is no sign of acute fracture or dislocation. There is no bone destruction or abnormal periosteal reaction. No additional lytic or blastic lesion is detected. IMPRESSION: Degenerative changes of the right shoulder as described above. Osteopenia. No acute fracture or dislocation. The need for further workup should be determined clinically. MACRO: None Signed by: Matilde Ritter 06/06/2024 4:28 PM Dictation workstation: [id number] [facility] CBC W Auto Differential pane l (Bld)on 05-29-2024 Basophils (Bld) [#/Vol] 0.05 10*3/uL [facility] Basophils/100 WBC (Bld) 0.6 % 0.0 - 2.0 % [facility] Eosinophils (Bld) [#/Vol] 0.45 10*3/uL High [facility] Eosinophils/100 WBC (Bld) 5.3 % 0.0 - 6.0 % [facility] Erythrocyte distribution width (RBC) [Ratio] 14.7 % High 11.5 - 14.5 % [facility] Hematocrit (Bld) [Volume fraction] 36.0 % Low 41.0 - 52.0 % [facility] Hemoglobin (Bld) [Mass/Vol] 11.8 g/dL Low 13.5 - 17.5 g/dL [facility] Immature granulocytes (Bld) [#/Vol] 0.03 10*3/uL [facility] Immature granulocytes/100 WBC (Bld) 0.4 % 0.0 - 0.9 % [facility] Comment on above: Immature Granulocyte Count (IG) includes promyelocytes, myelocytes and metamyelocytes but does not include bands. Percent differential counts (%) should be interpreted in the context of the absolute cell counts (cells/UL). Interpretation and review of laboratory results Abnormal [facility] Lymphocytes (Bld) [#/Vol] 1.65 10*3/uL [facility] Lymphocytes/100 WBC (Bld) 19.6 % 13.0 - 44.0 % [facility] MCH (RBC) [Entitic mass] 31.1 pg 26.0 - 34.0 pg [facility] MCHC (RBC) [Mass/Vol] 32.8 g/dL 32.0 - 36.0 g/dL [facility] MCV (RBC) [Entitic vol] 95 fL 80 - 100 fL [facility] Monocytes (Bld) [#/Vol] 0.64 10*3/uL [facility] Monocytes/100 WBC (Bld) 7.6 % 2.0 - 10.0 % [facility] Neutrophils (Bld) [#/Vol] 5.61 10*3/uL High [facility] Comment on above: Percent differential counts (%) should be interpreted in the context of the absolute cell counts (cells/uL). Neutrophils/100 WBC (Bld) 66.5 % 40.0 - 80.0 % [facility] Nucleated RBC/100 WBC (Bld) [Ratio] 0.0 % [facility] Platelets (Bld) [#/Vol] 134 10*3/uL Low [facility] RBC (Bld) [#/Vol] 3.79 10*6/uL [facility] WBC (Bld) [#/Vol] 8.4 10*3/uL [facility] Basophils (Bld) [#/Vol] 0.05 x10*3/uL Normal 0.00-0.10 [facility] Comment on above: Performed By: #### 5 7021-8 #### MYA DE LA CRUZ ([id number]) [facility] ([facility]) [address] [place] [address] 96878 Basophils/100 WBC (Bld) 0.6 % Normal 0.0-2.0 [facility] Comment on above: Performed By: #### 5 7021-8 #### MYA DE LA CRUZ ([id number]) [facility] ([facility]) [address] [place] [address] Eosinophils (Bld) [#/Vol] 0.45 x10*3/uL High 0.00-0.40 [facility] Comment on above: Performed By: #### 5 7021-8 #### MYA DE LA CRUZ ([id number]) [facility] ([facility]) [address] [place] [address] 97236 Eosinophils/100 WBC (Bld) 5.3 % Normal 0.0-6.0 [facility] Comment on above: Performed By: #### 5 7021-8 #### MYA DE LA CRUZ ([id number]) [facility] ([facility]) [address] [place] [address] 57579 Erythrocyte distribution width (RBC) [Ratio] 14.7 % High 11.5-14.5 [facility] Comment on above: Performed By: #### 5 7021-8 #### MYA DE LA CRUZ ([id number]) [facility] ([facility]) [address] [place] [address] 75217 Hematocrit (Bld) [Volume fraction] 36.0 % Low 41.0-52.0 [facility] Comment on above: Performed By: #### 5 7021-8 #### MYA DE LA CRUZ ([id number]) [facility] ([facility]) [address] [place] [address] 89155 Hemoglobin (Bld) [Mass/Vol] 11.8 g/dL Low 13.5-17.5 [facility] Comment on above: Performed By: #### 5 7021-8 #### MYA DE LA CRUZ ([id number]) [facility] ([facility]) [address] [place] [address] 71800 Immature granulocytes (Bld) [#/Vol] 0.03 x10*3/uL Normal 0.00-0.50 [facility] Comment on above: Performed By: #### 5 7021-8 #### MYA DE LA CRUZ ([id number]) [facility] ([facility]) [address] [place] [address] 39293 Immature granulocytes/100 WBC (Bld) 0.4 % Normal 0.0-0.9 [facility] Comment on above: Result Comment: Eva ture Granulocyte Count (IG) includes promyelocytes, myelocytes and metamyelocytes but does not include bands. Percent differential counts (%) should be interpreted in the context of the absolute cell counts (cells/UL). Performed By: #### 5 7021-8 #### MYA DE LA CRUZ ([id number]) [facility] ([facility]) [address] [place] [address] 79032 Lymphocytes (Bld) [#/Vol] 1.65 x10*3/uL Normal 0.80-3.00 [facility] Comment on above: Performed By: #### 5 7021-8 #### MYA DE LA CRUZ ([id number]) [facility] ([facility]) [address] [place] [address] 99102 Lymphocytes/100 WBC (Bld) 19.6 % Normal 13.0-44.0 [facility] Comment on above: Performed By: #### 5 7021-8 #### MYA DE LA CRUZ ([id number]) [facility] ([facility]) [address] [place] [address] 20006 MCH (RBC) [Entitic mass] 31.1 pg Normal 26.0-34.0 [facility] Comment on above: Performed By: #### 5 7021-8 #### MYA DE LA CRUZ ([id number]) [facility] ([facility]) [address] [place] [address] 99189 MCHC (RBC) [Mass/Vol] 32.8 g/dL Normal 32.0-36.0 [facility] Comment on above: Performed By: #### 5 7021-8 #### MYA DE LA CRUZ ([id number]) [facility] ([facility]) [address] [place] [address] 68156 MCV (RBC) [Entitic vol] 95 fL Normal 80-100 [facility] Comment on above: Performed By: #### 5 7021-8 #### MYA DE LA CRUZ ([id number]) [facility] ([facility]) [address] [place] [address] 41869 Monocytes (Bld) [#/Vol] 0.64 x10*3/uL Normal 0.05-0.80 [facility] Comment on above: Performed By: #### 5 7021-8 #### MYA DE LA CRUZ ([id number]) [facility] ([facility]) [address] [place] [address] 07189 Monocytes/100 WBC (Bld) 7.6 % Normal 2.0-10.0 [facility] Comment on above: Performed By: #### 5 7021-8 #### MYA DE LA CRUZ ([id number]) [facility] ([facility]) [address] [place] [address] 34512 Neutrophils (Bld) [#/Vol] 5.61 x10*3/uL High 1.60-5.50 [facility] Comment on above: Result Comment: Perc ent differential counts (%) should be interpreted in the context of the absolute cell counts (cells/uL). Performed By: #### 5 7021-8 #### MYA DE LA CRUZ ([id number]) [facility] ([facility]) [address] [place] [address] 66654 Neutrophils/100 WBC (Bld) 66.5 % Normal 40.0-80.0 [facility] Comment on above: Performed By: #### 5 7021-8 #### MYA DE LA CRUZ ([id number]) [facility] ([facility]) [address] [place] [address] 61114 Nucleated RBC/100 WBC (Bld) [Ratio] 0.0 /100 WBCs Normal 0.0-0.0 [facility] Comment on above: Performed By: #### 5 7021-8 #### MYA DE LA CRUZ ([id number]) [facility] ([facility]) [address] [place] [address] 50148 Platelets (Bld) [#/Vol] 134 x10*3/uL Low 150-450 [facility] Comment on above: Performed By: #### 5 7021-8 #### MYA DE LA CRUZ ([id number]) [facility] ([facility]) [address] [place] [address] 36551 RBC (Bld) [#/Vol] 3.79 x10*6/uL Low 4.50-5.90 [facility] Comment on above: Performed By: #### 5 7021-8 #### MYA JONO ([id number]) [facility] ([facility]) [address] [place] [address] WBC (Bld) [#/Vol] 8.4 x10*3/uL Normal 4.4-11.3 [facility] Comment on above: Performed By: #### 5 7021-8 #### MYA JONO ([id number]) [facility] ([facility]) [address] [place] [address] CT CERVICAL SPINE WO IV CONT RASTon 05-29-2024 CT CERVICAL SPINE WO IV CONTRAST Interpreted By: Hermann Borrego, STUDY: CT CERVICAL SPINE WO IV CONTRAST; 05/29/2024 1:09 pm INDICATION: Signs/Symptoms:head injury. COMPARISON: None. ACCESSION NUMBER(S): [id number] ORDERING CLINICIAN: SANYA SHIN TECHNIQUE: Contiguous unenhanced axial images were obtained through the cervical spine with coronal and sagittal reformations of the axial data. FINDINGS: ALIGNMENT: The craniocervical junction appears intact. The dens and atlantoaxial relation appear intact with mild marginal spurring. Cervical alignment is normal. VERTEBRAE/DISC SPACES: Multilevel disc space narrowing and endplate spurring of the cervical spine is most prominent at C4-5, C5-6 and C6-7 including small vacuum discs at these levels. Multilevel facet arthrosis is present bilaterally throughout the cervical spine. No acute fracture, subluxation, or compression deformity is seen. ADDITIONAL FINDINGS: Prevertebral soft tissues are not thickened. 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 No acute fracture or subluxation of the cervical spine. MACRO: None. Signed by: Hermann Borrego 05/29/2024 1:20 PM Dictation workstation: [id number] [facility] CT Cervical spine WO contras ton 05-29-2024 Multilevel degenerat gal disc and facet changes of the cervical spine. No acute fracture or subluxation of the cervical spine. MACRO: None. Signed by: Hermann Borrego 05/29/2024 1:20 PM Dictation workstation: [id number] MMODAL Interpreted By: Hermann Borrego, STUDY: CT CERVICAL SPINE WO IV CONTRAST; 05/29/2024 1:09 pm INDICATION: Signs/Symptoms:head injury. COMPARISON: None. ACCESSION NUMBER(S): [id number] ORDERING CLINICIAN: SANYA SHIN TECHNIQUE: Contiguous unenhanced axial images were obtained through the cervical spine with coronal and sagittal reformations of the axial data. FINDINGS: ALIGNMENT: The craniocervical junction appears intact. The dens and atlantoaxial relation appear intact with mild marginal spurring. Cervical alignment is normal. VERTEBRAE/DISC SPACES: Multilevel disc space narrowing and endplate spurring of the cervical spine is most prominent at C4-5, C5-6 and C6-7 including small vacuum discs at these levels. Multilevel facet arthrosis is present bilaterally throughout the cervical spine. No acute fracture, subluxation, or compression deformity is seen. ADDITIONAL FINDINGS: Prevertebral soft tissues are not thickened. [facility] Hermann Borrego MD - 05/29/2024 Interpreted By: Hermann Borrego, STUDY: CT CERVICAL SPINE WO IV CONTRAST; 05/29/2024 1:09 pm INDICATION: Signs/Symptoms:head injury. COMPARISON: None. ACCESSION NUMBER(S): [id number] ORDERING CLINICIAN: SANYA SHIN TECHNIQUE: Contiguous unenhanced axial images were obtained through the cervical spine with coronal and sagittal reformations of the axial data. FINDINGS: ALIGNMENT: The craniocervical junction appears intact. The dens and atlantoaxial relation appear intact with mild marginal spurring. Cervical alignment is normal. VERTEBRAE/DISC SPACES: Multilevel disc space narrowing and endplate spurring of the cervical spine is most prominent at C4-5, C5-6 and C6-7 including small vacuum discs at these levels. Multilevel facet arthrosis is present bilaterally throughout the cervical spine. No acute fracture, subluxation, or compression deformity is seen. ADDITIONAL FINDINGS: Prevertebral soft tissues are not thickened. 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 No acute fracture or subluxation of the cervical spine. MACRO: None. Signed by: Hermann Borrego 05/29/2024 1:20 PM Dictation workstation: [id number] [facility] Work Phone: [facility] Work Phone: CT HEAD WO IV CONTRASTon CT HEAD WO IV CONTRAST Interpreted By: Hermann Borrego, STUDY: CT HEAD WO IV CONTRAST; 05/29/2024 1:09 pm INDICATION: Signs/Symptoms:head injury. COMPARISON: None. ACCESSION NUMBER(S): [id number] ORDERING CLINICIAN: SANYA SHIN TECHNIQUE: Contiguous unenhanced axial images were obtained through the brain. FINDINGS: INTRACRANIAL: Mild generalized atrophy is present. Mild nonspecific irregular low-attenuation changes throughout the periventricular and subcortical white matter are most likely related to chronic microvascular disease. No acute intracranial bleed, midline shift, or mass effect is seen. Sun-white differentiation is maintained. No extra-axial fluid collection or hydrocephalus. Irregular atherosclerotic calcifications are most prominent in the internal carotid artery segments. Bones are intact. EXTRACRANIAL: Visualized paranasal sinuses and mastoids are clear. IMPRESSION: Mild age-related changes. No acute intracranial process. MACRO: None. Signed by: Hermann Borrego 05/29/2024 1:17 PM Dictation workstation: [id number] [facility] CT Head WO contraston 2023 Mild age-related changes. No acute intracranial process. MACRO: None. Signed by: Hermann Borrego 05/29/2024 1:17 PM Dictation workstation: [id number] MMODAL Interpreted By: Hermann Borrego, STUDY: CT HEAD WO IV CONTRAST; 05/29/2024 1:09 pm INDICATION: Signs/Symptoms:head injury. COMPARISON: None. ACCESSION NUMBER(S): [id number] ORDERING CLINICIAN: SANYA SHIN TECHNIQUE: Contiguous unenhanced axial images were obtained through the brain. FINDINGS: INTRACRANIAL: Mild generalized atrophy is present. Mild nonspecific irregular low-attenuation changes throughout the periventricular and subcortical white matter are most likely related to chronic microvascular disease. No acute intracranial bleed, midline shift, or mass effect is seen. Sun-white differentiation is maintained. No extra-axial fluid collection or hydrocephalus. Irregular atherosclerotic calcifications are most prominent in the internal carotid artery segments. Bones are intact. EXTRACRANIAL: Visualized paranasal sinuses and mastoids are clear. MMODAL Hermann Borrego MD - 05/29/2024 Interpreted By: Hermann Borrego, STUDY: CT HEAD WO IV CONTRAST; 05/29/2024 1:09 pm INDICATION: Signs/Symptoms:head injury. COMPARISON: None. ACCESSION NUMBER(S): [id number] ORDERING CLINICIAN: SANYA SHIN TECHNIQUE: Contiguous unenhanced axial images were obtained through the brain. FINDINGS: INTRACRANIAL: Mild generalized atrophy is present. Mild nonspecific irregular low-attenuation changes throughout the periventricular and subcortical white matter are most likely related to chronic microvascular disease. No acute intracranial bleed, midline shift, or mass effect is seen. Sun-white differentiation is maintained. No extra-axial fluid collection or hydrocephalus. Irregular atherosclerotic calcifications are most prominent in the internal carotid artery segments. Bones are intact. EXTRACRANIAL: Visualized paranasal sinuses and mastoids are clear. IMPRESSION: Mild age-related changes. No acute intracranial process. MACRO: None. Signed by: Hermann Borrego 05/29/2024 1:17 PM Dictation workstation: [id number] [facility] Work Phone: CT Head WO contrastOrdered B y: Hermann Borrego on 05-29-2024 [facility] Work Phone: Comprehensive metabolic 2000 panelon 05-29-2024 Albumin BCP dye [Mass/Vol] 4.0 g/dL 3.4 - 5.0 g/dL [facility] ALP [Catalytic activity/Vol] 86 U/L 33 - 136 U/L [facility] ALT With P-5'-P [Catalytic activity/Vol] 9 U/L Low 10 - 52 U/L [facility] Comment on above: Patients treated wit h Sulfasalazine may generate falsely decreased results for ALT. Anion gap [Moles/Vol] 13 mmol/L 10 - 2 0 mmol/L [facility] AST With P-5'-P [Catalytic activity/Vol] 12 U/L 9 - 39 U/L [facility] Bilirubin [Mass/Vol] 0.7 mg/dL 0.0 - 1 .2 mg/dL [facility] Calcium [Mass/Vol] 8.9 mg/dL 8.6 - 10. 3 mg/dL [facility] Chloride [Moles/Vol] 102 mmol/L 98 - 10 7 mmol/L [facility] CO2 [Moles/Vol] 26 mmol/L 21 - 32 mmol/L [facility] Creatinine [Mass/Vol] 2.20 mg/dL High 0.50 - 1.30 mg/dL [facility] GFR/1.73 sq M.predicted among non-blacks MDRD (S/P/Bld) [Vol rate/Area] 29 mL/min/{1.73_m2} Low - PINF [facility] Comment on above: Calculations of apoorva mated GFR are performed using the 2020 CKD-EPI Study Refit equation without the race variable for the IDMS-Traceable creatinine methods. https://jasn.asnjournals.org/content//ASN.968293 6445 Glucose [Mass/Vol] 89 mg/dL 74 - 99 mg/dL [facility] Interpretation and review of laboratory results Abnormal [facility] Potassium [Moles/Vol] 3.4 mmol/L Low 3.5 - 5.3 mmol/L [facility] Protein [Mass/Vol] 6.7 g/dL 6.4 - 8.2 g/dL [facility] Sodium [Moles/Vol] 138 mmol/L 136 - 145 mmol/L [facility] Urea nitrogen [Mass/Vol] 48 mg/dL High 6 - 23 mg/dL [facility] Albumin BCP dye [Mass/Vol] 4.0 g/dL Normal 3.4-5.0 [facility] Comment on above: Performed By: #### 2 4323-8 #### MYA DE LA CRUZ ([id number]) [facility]) [address] [place] [address] ALP [Catalytic activity/Vol] 86 U/L Normal 33-136 [facility] Comment on above: Performed By: #### 2 4323-8 #### MYA DE LA CRUZ ([id number]) [facility]) [address] [place] [address] ALT With P-5'-P [Catalytic activity/Vol] 9 U/L Low 10-52 [facility] Comment on above: Result Comment: Jaci ents treated with Sulfasalazine may generate falsely decreased results for ALT. Performed By: #### 2 4323-8 #### MYA DE LA CRUZ ([id number]) [facility]) [address] [place] [address] Anion gap [Moles/Vol] 13 mmol/L Normal 10-20 [facility] Comment on above: Performed By: #### 2 4323-8 #### MYA DE LA CRUZ ([id number]) [facility]) [address] [place] [address] AST With P-5'-P [Catalytic activity/Vol] 12 U/L Normal 9-39 [facility] Comment on above: Performed By: #### 2 4323-8 #### MYA DE LA CRUZ ([id number]) [facility]) [address] [place] [address] Bilirubin [Mass/Vol] 0.7 mg/dL Normal 0.0-1.2 [facility] Comment on above: Performed By: #### 2 4323-8 #### MYA DE LA CRUZ ([id number]) [facility]) [address] [place] [address] Calcium [Mass/Vol] 8.9 mg/dL Normal 8.6-10.3 [facility] Comment on above: Performed By: #### 2 4323-8 #### MYA DE LA CRUZ ([id number]) [facility]) [address] [place] [address] Chloride [Moles/Vol] 102 mmol/L Normal 98-107 [facility] Comment on above: Performed By: #### 2 4323-8 #### MYA DE LA CRUZ ([id number]) [facility]) [address] [place] [address] CO2 [Moles/Vol] 26 mmol/L Normal 21-32 [facility] Comment on above: Performed By: #### 2 4323-8 #### MYA DE LA CRUZ ([id number]) [facility]) [address] [place] [address] Creatinine [Mass/Vol] 2.20 mg/dL High 0.50-1.30 [facility] Comment on above: Performed By: #### 2 4323-8 #### MYA DE LA CRUZ ([id number]) [facility]) [address] [place] [address] Glomerular filtration rate/1.73 sq M.predicted 29 mL/min/1.73m*2 Low >60 [facility] Comment on above: Result Comment: Calc ulations of estimated GFR are performed using the 2020 CKD-EPI Study Refit equation without the race variable for the IDMS-Traceable creatinine methods. https://jasn.asnjournals.org/content/early/ASN.216898 3450 Performed By: #### 2 432-8 #### MYA DE LA CRUZ ([id number]) [facility]) [address] [place] [address] Glucose [Mass/Vol] 89 mg/dL Normal 74-99 [facility] Comment on above: Performed By: #### 2 432-8 #### MYA DE LA CRUZ ([id number]) [facility]) [address] [place] [address] Potassium [Moles/Vol] 3.4 mmol/L Low 3.5-5.3 [facility] Comment on above: Performed By: #### 2 4323-8 #### MYA DE LA CRUZ ([id number]) [facility]) [address] [place] [address] Protein [Mass/Vol] 6.7 g/dL Normal 6.4-8.2 [facility] Comment on above: Performed By: #### 2 4323-8 #### MYA DE LA CRUZ ([id number]) [facility]) [address] [place] [address] Sodium [Moles/Vol] 138 mmol/L Normal 136-145 [facility] Comment on above: Performed By: #### 2 4323-8 #### MYA DE LA CRUZ ([id number]) [facility]) [address] [place] [address] Urea nitrogen [Mass/Vol] 48 mg/dL High 6-23 [facility] Comment on above: Performed By: #### 2 4323-8 #### MYA DE LA CRUZ ([id number]) [facility]) [facility] [place] [id number] ECG 12 leadOrdered By: Annetta Wiggins on 05-29-2024 Atrial Rate 55 BPM [facility] Work Phone: P Goltry 77 degrees [facility] Work Phone: P Offset 139 [facility] Work Phone: P Onset 93 [facility] Work Phone: TX Interval 248 [facility] Work Phone: Q Onset 217 [facility] Work Phone: QRS Count 9 beats [facility] Work Phone: QRS Duration 98 ms [facility] Work Phone: QT Interval 488 ms [facility] Work Phone: QTC Calculation(Bazett) 466 [facility] Work Phone: QTC Fredericia 474 [facility] Work Phone: R Goltry -6 degrees [facility] Work Phone: T Goltry 107 degrees [facility] Work Phone: T Offset 461 [facility] Work Phone: Ventricular Rate 55 BPM [facility] Work Phone: [facility] Work Phone: ECG 12 leadon 05-29-2024 Sinus bradycardia wi th 1st degree AV block with Premature atrial complexes Left ventricular hypertrophy with repolarization abnormality ( R in aVL ) Abnormal ECG When compared with ECG of 29-MAY-2024 11:06, (unconfirmed) Premature atrial complexes are now Present TX interval has increased Criteria for Septal infarct are no longer Present Nonspecific T wave abnormality no longer evident in Inferior leads T wave inversion less evident in Lateral leads See ED provider note for full interpretation and clinical correlation Confirmed by Lexis Wiggins ([id number]) on 05/29/2024 7:06:35 PM HELPER Eliza Wiggins APRN-[facility] - 05/29/2024 Sinus bradycardia with 1st degree AV block with Premature atrial complexes Left ventricular hypertrophy with repolarization abnormality ( R in aVL ) Abnormal ECG When compared with ECG of 29-MAY-2024 11:06, (unconfirmed) Premature atrial complexes are now Present TX interval has increased Criteria for Septal infarct are no longer Present Nonspecific T wave abnormality no longer evident in Inferior leads T wave inversion less evident in Lateral leads See ED provider note for full interpretation and clinical correlation Confirmed by Lexis Wiggins ([id number]) on 05/29/2024 7:06:35 PM [facility] Work Phone: Glucose Test strip manual (B ld) [Mass/Vol]on 05-29-2024 Glucose [Mass/Vol] 195 mg/dL High 74 - 99 mg/dL [facility] Interpretation and review of laboratory results Abnormal [facility] Glucose [Mass/Vol] 195 mg/dL High 74-99 [facility] Comment on above: Performed By: #### 2 341-6 #### ROQUE JONO ([id number]) [facility]) [address] [place] [address] Glucose [Mass/Vol] 115 mg/dL High 74 - 99 mg/dL [facility] Interpretation and review of laboratory results Abnormal [facility] Glucose [Mass/Vol] 115 mg/dL High 74-99 [facility] Comment on above: Performed By: #### 2 341-6 #### MYA DE LA CRUZ ([id number]) [facility]) [address] [place] [address] Glucose [Mass/Vol] 77 mg/dL 74 - 99 mg/dL [facility] Interpretation and review of laboratory results Normal [facility] Glucose [Mass/Vol] 77 mg/dL Normal 74-99 [facility] Comment on above: Performed By: #### 2 341-6 #### MYA DE LA CRUZ ([id number]) [facility]) [address] [place] [address] Glucose [Mass/Vol] 104 mg/dL High 74 - 99 mg/dL [facility] Interpretation and review of laboratory results Abnormal [facility] Glucose [Mass/Vol] 104 mg/dL High 74-99 [facility] Comment on above: Performed By: #### 2 341-6 #### MYA DE LA CRUZ ([id number]) [facility]) [address] [place] [address] No Panel Informationon 05-29 Radiology Study observation (narrative) [facility] Work Phone: Tropinin I.cardiac panel Hig h sensitivity methodon 05-29-2024 Interpretation and review of laboratory results Normal [facility] Less than 99th percentile of normal range cutoff- Female and children under 18 years old <14 ng/L; Male <21 ng/L: Negative Repeat testing should be performed if clinically indicated. Female and children under 18 years old 14-50 ng/L; Male 21-50 ng/L: Consistent with possible cardiac damage and possible increased clinical risk. Serial measurements may help to assess extent of myocardial damage. >50 ng/L: Consistent with cardiac damage, increased clinical risk and myocardial infarction. Serial measurements may help assess extent of myocardial damage. NOTE: Children less than 1 year old may have higher baseline troponin levels and results should be interpreted in conjunction with the overall clinical context. NOTE: Troponin I testing is performed using a different testing methodology at [facility] than at other [facility]. Direct result comparisons should only be made within the same method. [facility] Troponin I, High Sensitivity on 05-29-2024 Tropinin I.cardiac panel High sensitivity method 10 ng/L 0 - 20 ng/L [facility] Troponin I.cardiac panelon 0 05-29-2024 Tropinin I.cardiac panel High sensitivity method 10 ng/L Normal 0-20 [facility] Comment on above: Order Comment: Less than 99th percentile of normal range cutoff- Female and children under 18 years old <14 ng/L; Male <21 ng/L: Negative Repeat testing should be performed if clinically indicated. Female and children under 18 years old 14-50 ng/L; Male 21-50 ng/L: Consistent with possible cardiac damage and possible increased clinical risk. Serial measurements may help to assess extent of myocardial damage. >50 ng/L: Consistent with cardiac damage, increased clinical risk and myocardial infarction. Serial measurements may help assess extent of myocardial damage. NOTE: Children less than 1 year old may have higher baseline troponin levels and results should be interpreted in conjunction with the overall clinical context. NOTE: Troponin I testing is performed using a different testing methodology at [facility] than at other [facility]. Direct result comparisons should only be made within the same method. Performed By: #### 8 9577-1 #### ROQUE JONO ([id number]) [facility]) [address] [place] [address] Urinalysis complete W Reflex Culture panel (U)on 05-29-2024 Appearance (U) Clear Clear [facility] Bilirubin (U) [Mass/Vol] Negative NEGATIVE [facility] Color (U) Colorless Abnormal Light-Yellow , Yellow, Dark-Yellow [facility] Glucose Auto test strip (U) [Mass/Vol] Normal Normal mg/dL [facility] Interpretation and review of laboratory results Abnormal [facility] Ketones (U) [Mass/Vol] Negative NEGATIVE mg/dL [facility] Leukocyte esterase Auto test strip Ql (U) Negative NEGATIVE [facility] Nitrite Auto test strip Ql (U) Negative NEGATIVE [facility] pH (U) 6.0 [pH] 5.0, 5.5, 6.0, 6.5, 7.0, 7.5, 8.0 [facility] Protein (U) [Mass/Vol] Negative NEGATIVE, 10 (TRACE), 20 (TRACE) mg/dL [facility] RBC (U) [#/Vol] Negative NEGATIVE [facility] Specific gravity (U) [Rel density] 1.009 1.005 - 1.035 [facility] Urobilinogen (U) [Mass/Vol] Normal Normal mg/dL [facility] Appearance (U) Clear Normal Clear [facility] Comment on above: Performed By: #### 2 341-6 #### MYA DE LA CRUZ ([id number]) [facility]) [address] [place] [address] Bilirubin (U) [Mass/Vol] Negative Normal NEGATIVE [facility] Comment on above: Performed By: #### 2 341-6 #### MYA DE LA CRUZ ([id number]) [facility]) [address] [place] [address] Color (U) Colorless Normal Light-Yellow , Yellow, Dark-Yellow [facility] Comment on above: Performed By: #### 2 341-6 #### MYA DE LA CRUZ ([id number]) [facility]) [address] [place] [address] Glucose Auto test strip (U) [Mass/Vol] Normal Normal Normal [facility] Comment on above: Performed By: #### 2 341-6 #### MYA DE LA CRUZ ([id number]) [facility]) [address] [place] [address] Ketones (U) [Mass/Vol] Negative Normal NEGATIVE [facility] Comment on above: Performed By: #### 2 341-6 #### MYA DE LA CRUZ ([id number]) [facility]) [address] [place] [address] Leukocyte esterase Auto test strip Ql (U) Negative Normal NEGATIVE [facility] Comment on above: Performed By: #### 2 341-6 #### MYA DE LA CRUZ ([id number]) [facility]) [address] [place] [address] Nitrite Auto test strip Ql (U) Negative Normal NEGATIVE [facility] Comment on above: Performed By: #### 2 341-6 #### MYA DE LA CRUZ ([id number]) [facility]) [address] [place] [address] pH (U) 6.0 [pH] Normal 5.0, 5.5, 6.0, 6.5, 7.0, 7.5, 8.0 [facility] Comment on above: Performed By: #### 2 341-6 #### MYA DE LA CRUZ ([id number]) [facility]) [address] [place] [address] Protein (U) [Mass/Vol] Negative Normal NEGATIVE, 10 (TRACE), 20 (TRACE) [facility] Comment on above: Performed By: #### 2 341-6 #### MYA DE LA CRUZ ([id number]) [facility]) [address] [place] [address] RBC (U) [#/Vol] Negative Normal NEGATIVE [facility] Comment on above: Performed By: #### 2 341-6 #### MYA DE LA CRUZ ([id number]) [facility]) [address] [place], [place] [address] Specific gravity (U) [Rel density] 1.009 Normal 1.005-1.035 [facility] Comment on above: Performed By: #### 2 341-6 #### MYA DE LA CRUZ ([id number]) [facility]) [address] [place], [place] [address] Urobilinogen (U) [Mass/Vol] Normal Normal Normal [facility] Comment on above: Performed By: #### 2 341-6 #### MYA DE LA CRUZ ([id number]) [facility]) [address] [place], [place] [address] XR CHEST 1 VIEWon 05-29-2024 XR CHEST 1 VIEW STUDY: Chest Radiograph; 05/29/2024 12:22 PM INDICATION: Dizziness. COMPARISON: 05/28/2020 XR chest. ACCESSION NUMBER(S): [id number] ORDERING CLINICIAN: SANYA SHIN TECHNIQUE: Frontal chest was obtained at 12:22 hours. FINDINGS: CARDIOMEDIASTINAL SILHOUETTE: Cardiomediastinal silhouette is normal in size and configuration. LUNGS: Lungs are clear. ABDOMEN: No remarkable upper abdominal findings. BONES: No acute osseous changes. IMPRESSION: No acute cardiopulmonary disease. No significant interval change compared to the prior exam.. Signed by Aden Nolasco MD [facility] XR Chest Single viewon 05-29 No acute cardiopulmonary disease. No significant interval change compared to the prior exam.. Signed by Aden Nolasco MD TELERADIOLOGY STUDY: Chest Radiograph; 05/29/2024 12:22 PM INDICATION: Dizziness. COMPARISON: 05/28/2020 XR chest. ACCESSION NUMBER(S): [id number] ORDERING CLINICIAN: SANYA SHIN TECHNIQUE: Frontal chest was obtained at 12:22 hours. FINDINGS: CARDIOMEDIASTINAL SILHOUETTE: Cardiomediastinal silhouette is normal in size and configuration. LUNGS: Lungs are clear. ABDOMEN: No remarkable upper abdominal findings. BONES: No acute osseous changes. TELERADIOLOGY Aden Nolasco MD - 05/29/2024 STUDY: Chest Radiograph; 05/29/2024 12:22 PM INDICATION: Dizziness. COMPARISON: 05/28/2020 XR chest. ACCESSION NUMBER(S): [id number] ORDERING CLINICIAN: SANYA SHIN TECHNIQUE: Frontal chest was obtained at 12:22 hours. FINDINGS: CARDIOMEDIASTINAL SILHOUETTE: Cardiomediastinal silhouette is normal in size and configuration. LUNGS: Lungs are clear. ABDOMEN: No remarkable upper abdominal findings. BONES: No acute osseous changes. IMPRESSION: No acute cardiopulmonary disease. No significant interval change compared to the prior exam.. Signed by Aden Nolasco MD [facility] Work Phone: Radiology Study observation (narrative) [facility] Work Phone: XR Chest Single viewOrdered By: Aden Nolasco on 05-29-2024 [facility] Work Phone: XR ELBOW LEFT 3+ VIEWSon XR ELBOW LEFT 3+ VIEWS STUDY: Elbow Radiographs; 05/29/2024 12:23 PM INDICATION: Elbow pain. COMPARISON: None Available. ACCESSION NUMBER(S): [id number] ORDERING CLINICIAN: SANYA SHIN TECHNIQUE: Four view(s) of the left elbow. FINDINGS: There is no displaced fracture. The alignment is anatomic. No soft tissue abnormality is seen. There is no joint effusion. IMPRESSION: No acute fracture or dislocation. No definite joint effusion is noted although a true lateral was not obtained on this exam.. Signed by Aden Nolasco MD [facility] XR Elbow - left 3 Viewson No acute fracture or dislocation. No definite joint effusion is noted although a true lateral was not obtained on this exam.. Signed by Aden Nolasco MD TELERADIOLOGY STUDY: Elbow Radiographs; 05/29/2024 12:23 PM INDICATION: Elbow pain. COMPARISON: None Available. ACCESSION NUMBER(S): [id number] ORDERING CLINICIAN: SANYA SHIN TECHNIQUE: Four view(s) of the left elbow. FINDINGS: There is no displaced fracture. The alignment is anatomic. No soft tissue abnormality is seen. There is no joint effusion. TELERADIOLOGY Aden Nolasco MD - 05/29/2024 STUDY: Elbow Radiographs; 05/29/2024 12:23 PM INDICATION: Elbow pain. COMPARISON: None Available. ACCESSION NUMBER(S): [id number] ORDERING CLINICIAN: SANYA SHIN TECHNIQUE: Four view(s) of the left elbow. FINDINGS: There is no displaced fracture. The alignment is anatomic. No soft tissue abnormality is seen. There is no joint effusion. IMPRESSION: No acute fracture or dislocation. No definite joint effusion is noted although a true lateral was not obtained on this exam.. Signed by Aden Nolasco MD [facility] Work Phone: [facility] Work Phone: Radiology Study observation (narrative) [facility] Work Phone: XR SHOULDER RIGHT 2+ VIEWSon 04-22-2024 XR SHOULDER RIGHT 2+ VIEWS Interpreted By: Mychal Howell, STUDY: XR SHOULDER RIGHT 2+ VIEWS INDICATION: Signs/Symptoms:R SHOULDR CHRONIC PAIN. COMPARISON: January 21 ACCESSION NUMBER(S): [id number] ORDERING CLINICIAN: KAPIL OROZCO FINDINGS: Mild right glenohumeral and acromioclavicular osteoarthritis. No fracture or lesions. IMPRESSION: Mild degenerative changes right shoulder. Signed by: Mychal Howell 04/23/2024 6:10 PM Dictation workstation: [id number] [facility] CNOVon 03-20-2024 CNOV Office Visit (PNMDNA ) KITTY VERGARA ([id number]) 1940 M DEF Date Time Provider Department 03/20/24 10:30 AM MARY JUNIOR PNMDNA During your visit today, we recorded the following information about you: Pulse Weight 52/minute 109.8 kg Mary Junior, DIESEL SERVICE APPRENTICE.MINE ENGINEERING SUPERVISOR 03/22/2024 7:14 PM Signed Subjective Kitty Vergara presents to [facility] for a follow up appointment. Since the last visit, Kitty Vergara states the pain has been about the same. Current pain intensity is 0 on a scale of 0-10. Pain located in the bilateral LE below the knees. Pain described as numb, tingling, burning, sharp. Currently, the symptoms do not interfere with activities of daily living (ADLs). Pain is exacerbated by at night. Pain is mitigated in the morning. The medications are effective. The patient states the last dose of gabapentin was taken this morning. Patient Entered Questionnaires PROMIS Score Percentiles 04/06/2023 Physical Health Physical Function Percentile 14 Pain Interference Percentile 2 Percentiles provide an indication of how the patient's score ranks in relation to the general population. Higher percentile rankings indicate better function/quality of life. 50th percentile is the average of the general population and indicates half of respondents had a worse score. > 31st percentile is within normal limits or better * < 31st percentile is at least ? SD worse than population, which may be clinically relevant < 16th percentile is at least 1 SD worse than population and warrants attention Review of Systems Constitutional: (-) Weight Gain (-) Weight Loss (+) Fatigue Cardiovascular: (-) hx heart surgery (-) Pacemaker Respiratory: (+) Shortness of Breath (+) Cough (+) Snoring Gastrointestinal: (-) Incontinence (-) Diarrhea (-) Constipation (-) Nausea/Vomiting Endocrine: (-) Thyroid Disorder (+) Diabetes Hematologic: (+) Prolonged Bleeding (+) Easy Bruising Genitourinary: (-) Incontinence (-) Frequency (+) Urinary Urgency Skin: (-) Open sores/wound Neurologic: (-) Headache (-) Double Vision Psychiatric: (-) Depression (-) Anxiety Chief Complaint Patient presents with: Follow Up Refill Request Physical Examination Pulse 52 Wt 242 lb (109.8kg) SpO2 98% General:well appearing and alert Skin: Skin color, texture, turgor normal, no rashes or lesions HEENT: normal Cardiovascular: Regular, rate and rhythm Lungs: Normal respiratory rate and rhythm, unlabored on room air Neurological: Mental Status: alert Sensory: Sensation was diminished to light touch in LE. Gait: Antalgic. Assessment Assessment : Patient presents for a follow up. He is accompanied with his Patient has a hx of diabetic neuropathy and experiencing numbness in the lower extremities from the knee down to the feet. He will need refills on the gabapentin He reports no new issues Encounter Diagnosis ICD-10-CM 1. Diabetic peripheral neuropathy (HCC) E11.42 gabapentin (NEURONTIN) 300 mg capsule 04/06/2023 PROMIS CAT Pain Interference PROMIS Pain Interference T-Score (range: 10 - 90) 71 (severe) PROMIS Pain Interference Percentile 2 PROMIS Adult Short Form-Global Health Score (Mental) Incomplete OARRS Report: Reviewed: The patient's OARRS report was reviewed and is consistent with the reported medication use. Plan Injection history was reviewed. Medication use and compliance were reviewed. 1. Continue medication management through the [facility] 2. The following approved medication requests have been transmitted electronically. Requested Prescriptions Signed Prescriptions Disp Refills gabapentin (NEURONTIN) 300 mg capsule 180 capsule 3 Sig: Take 1 capsule by mouth two times a day for 90 days. 3. Interventional procedure options discussed. none 4) F/U in x1 year The level of medical decision making for this encounter was low level. I spent a total of 20 minutes on the date of the service which included preparing to see the patient, [id number] patient care, completing clinical documentation, performing a medically appropriate examination, and ordering medications, tests, or procedures. 1. This document has been created with the use of voice recognition technology. It may contain inaccuracies: (e.g. misspellings, inaccurate syntax or word sense) that have escaped review. 2. The physician, nursing staff and medical assistants are a major part of YOUR TREATMENT TEAM and will be handling your phone calls and inquiries, if any. Unless explicitly told otherwise at the time of your office visit, your study results and ensuing treatment plans will be discussed during your follow-up appointment. If you do not have a follow-up appointment and wish to discuss any issues, please set up an appoi (more content not included)... Normal [facility] 03-20-2024 FIORELLA Telephone (SMILEY) KITTY VERGARA ([id number]) 1940 M DEF Date Time Provider Department 03/20/24 RIAN JUNIOR During your visit today, we recorded the following information about you: Avril Luis 03/20/2024 4:10 PM Signed Pt called in stating that Gabapentin 300mg was called into the wrong pharmacy at his appointment today. He would like it to go to the [facility] in [place]. Please advise Mary Junior APRN.MINE ENGINEERING SUPERVISOR 03/24/2024 10:27 AM Signed Resent gabapentin rx Mary Junior APRN.CNP 03/24/2024 10:27 AM Signed Addended by: MARY JUNIOR on: 03/24/2024 10:27 AM Modules accepted: Germania Anton 03/24/2024 3:22 PM Signed Called and left a voicemail for Patient informing him that RX has been sent to preferred pharmacy. Germania Hier Allergies As of Date: 03/20/2024 Noted Allergy Reaction [id number] REDUCTASE INHIBIT*01/03/2023 7 - Swelling Comments: Tongue swelling Date Reviewed: 04/06/2023 Reviewed by: Ninfa White MA - Fully Assessed Reason for Visit: Medication Problem [65] Visit Diagnosis:Diabetic peripheral neuropathy (HCC) [E11.42] Order(s):gabapentin (NEURONTIN) 300 mg capsuleTake 1 capsule by mouth two times a day for 90 days.Disp: 180 capsuleRfl: 3 Prescriptions as of 03/24/2024 - gabapentin (NEURONTIN) 300 mg capsule Take 1 capsule by mouth two times a day for 90 days. - clopidogrel (PLAVIX) 75 mg tablet Take 75 mg by mouth once daily. - fenofibrate nanocrystallized (TRICOR) 145 mg tablet Take 145 mg by mouth once daily. - ezetimibe (ZETIA) 10 mg tablet Take 10 mg by mouth once daily. - spironolactone (ALDACTONE) 25 mg tablet Take 25 mg by mouth once daily. - aspirin, enteric coated (ASPIRIN, ENTERIC COATED) 81 mg EC tablet Take by mouth q 24 HR. - clobetasol (TEMOVATE) 0.05 % cream APPLY A THIN LAYER TO THE BILATERAL HANDS AND FEET TWICE DAILY FOR 2 WEEKS TAKING ONE WEEK OFF PRIOR TO REAPPLYING - lansoprazole (PREVACID) 30 mg capsule lansoprazole 30 mg capsule,delayed release - losartan-hydroCHLOROthi azide (HYZAAR) 100-25 mg per tablet Take 1 tablet by mouth once daily. - allopurinol (ZYLOPRIM) 300 mg tablet Take 300 mg by mouth once daily. - glipiZIDE (GLUCOTROL) 5 mg tablet Take 5 mg by mouth twice daily. - metFORMIN ER (GLUCOPHAGE XR) 500 mg 24 hr tablet Take 1,000 mg by mouth once daily. Problem List As Of Date 03/20/2024 Noted Resolved Diabetes mellitus, non-insulin dependent (NIDDM*07/24/2022 Diabetic peripheral neuropathy (HCC) [E11.42] 07/24/2022 Prescriptions ordered this encounter Disp Refills Start End GABAPENTIN 300 MG CAPSULE 180 * 3 03/24/2024 06/22/2024 Route: ORAL Sig: Take 1 capsule by mouth two times a day for 90 days. Medications Discontinued During This Encounter Prescriptions - gabapentin (NEURONTIN) 300 mg capsule (Discontinued) Take 1 capsule by mouth two times a day for 90 days. Encounter Status:Closed by AVRIL LUIS on 03/20/24 Normal [facility] US Abdomenon 03-05-2024 These images are not reportable by radiology and will not be interpreted by Radiologists. IMAGING L Inj/Asp: R subacromial bur saon 01-22-2024 Kapil Orozco MD 01/22/2024 5:25 PM L Inj/Asp: R subacromial bursa on 01/22/2024 5:25 PM Indications: pain Details: ultrasound-guided anterior approach Medications: 2.5 mg triamcinolone acetonide 40 mg/mL Procedure, treatment alternatives, risks and benefits explained, specific risks discussed. Immediately prior to procedure a time out was called to verify the correct patient, procedure, equipment, business support professional and site/side marked as required. Patient was prepped and draped in the usual sterile fashion. [facility] Work Phone: [facility] Work Phone: US Abdomenon 01-22-2024 These images are not reportable by radiology and will not be interpreted by Radiologists. IMAGING These images are not reportable by radiology and will not be interpreted by Radiologists. IMAGING CNOVon 09-19-2023 CNOV Office Visit (PNMDNA ) KITTY VERGARA ([id number]) 1940 M DEF Date Time Provider Department 09/19/23 10:00 AM DIEGO GORE PNMDNA During your visit today, we recorded the following information about you: Pulse 58/minute Diego Gore MD 09/19/2023 10:54 AM Signed [facility] Date: September 19, 2023 - 9:47 AM Chief Complaint: chronic diabetic neuropathy _ SUBJECTIVE: Mr. Vergara presents to the [facility] for a follow up appointment regarding diabetic neuropathy pain. He states that since the last visit symptoms have been stable. The pain is located in the bilateral lower extremities below the knees and does not radiate. // The pain is described as sharp and is rated as 0 on a scale of 0-10. Currently, the symptoms do not interfere with activities of daily living (ADLs). The pain is exacerbated by unable to pinpoint exacerbating factors/positions. The pain is mitigated by unable to pinpoint positions/factors that are mitigating. He is currently receiving medications through the [facility]. He is not having difficulty with his PMC medications. The medications are effective. REVIEW OF SYSTEMS: Constitutional: (-) Fever (-) Night Sweats (-) Weight Gain (-) Weight Loss (-) Fatigue Cardiovascular: (-) Chest Pain (-) Palpitations (-) Lightheadedness (+) Swelling of Ankles (-) Hx Heart Surgery Respiratory: (-) Shortness of Breath (-) Cough (-) Wheezing (-) Snoring Gastrointestinal: (-) Incontinence (-) Abdominal Pain (-) Diarrhea (-) Constipation (-) Nausea/Vomiting (-) Heart Burn Endocrine: (-) Thyroid Disorder (+) Diabetes Hematologic: (+) Prolonged Bleeding (+) Easy Bruising Genitourinary: (-) Incontinence (-) Frequency (-) Urinary Urgency Skin: (-) Rashes (-) Itching (-) Other Lesions Neurologic: (-) Headache (-) Double Vision (-) Confusion (-) Paralysis Psychiatric: (-) Depression (-) Anxiety (-) Delusions (-) Hallucinations (-) Personal History of Alcohol or Substance Abuse (-) Family History of Alcohol or Substance Abuse _ No past medical history on file. No past surgical history on file. ALLERGIES Allergen Reactions Xlcahtg-Hwh-Tro Red* Swelling Tongue swelling Current Outpatient Medications Medication Sig gabapentin (NEURONTIN) 300 mg capsule Take 1 capsule by mouth two times a day for 180 days. methocarbamol (ROBAXIN) 500 mg tablet Take 1 tablet by mouth two times a day as needed. clopidogrel (PLAVIX) 75 mg tablet Take 75 mg by mouth once daily. fenofibrate nanocrystallized (TRICOR) 145 mg tablet Take 145 mg by mouth once daily. ezetimibe (ZETIA) 10 mg tablet Take 10 mg by mouth once daily. spironolactone (ALDACTONE) 25 mg tablet Take 25 mg by mouth once daily. aspirin, enteric coated (ASPIRIN, ENTERIC COATED) 81 mg EC tablet Take by mouth q 24 HR. clobetasol (TEMOVATE) 0.05 % cream APPLY A THIN LAYER TO THE BILATERAL HANDS AND FEET TWICE DAILY FOR 2 WEEKS TAKING ONE WEEK OFF PRIOR TO REAPPLYING lansoprazole (PREVACID) 30 mg capsule lansoprazole 30 mg capsule,delayed release losartan-hydroCHLOROthi azide (HYZAAR) 100-25 mg per tablet Take 1 tablet by mouth once daily. (Patient not taking: Reported on 04/06/2023) allopurinol (ZYLOPRIM) 300 mg tablet Take 300 mg by mouth once daily. glipiZIDE (GLUCOTROL) 5 mg tablet Take 5 mg by mouth twice daily. metFORMIN ER (GLUCOPHAGE XR) 500 mg 24 hr tablet Take 1,000 mg by mouth once daily. No current facility-administered medications for this visit. I have reviewed the nurses notes and I am aware of the family/social history. Since the last evaluation the medical history has not changed. PDMP website checked and validated. All prescriptions have been APPROPRIATELY filled. No suspicious activity was identified. 09/19/2023 by Diego Gore MD Narcotic Agreement reviewed and signed?: N/A on September 19, 2023 Urine Panel: No results found for: "UQCANN", "UQBNZL", "OHB0SHM", "UQAMPH", "UQMAMP", "UQBUPRE", "UQNORBUP", "UQMTHD", "UQEDDP", "UQTRAM", "UQDTRM", "UQFNTL", "UQNFTL", "UQCODE", "UQMORP", "UQDCDN", "UQHCOD", "UQOXYC", "UQHMOR", "UQOXYM", "UQCREA", "UQPH", "UQSPGR", "UQOXID", UQSPQ The pain panel was N/A PHYSICAL EXAMINATION: Performed in conjunction with observation. The patient was alert and oriented x3. The patient was in no acute distress. Lungs: Clear, negative for dyspnea or distress. CVR: Regular Rate. Negative for SOB or peripheral edema. Neck: Supple. The range of motion was intact. Back: Range of motion of the trunk was intact.. Negative focal tenderness Extremities: No deformities, edema, or skin discoloration. Musculoskeletal: pain in the hands, no edema , no ex (more content not included)... Normal [facility] MR Shoulder - right WO contr ramiro 08-30-2023 1. There is focal full-thickness tear involving the junctional fibers of the supraspinatus insertion, which measures 0.4 cm. There is also low-grade bursal sided tearing involving the anterior and central fibers with mild associated tendinosis. 2. High-grade undersurface tearing of the superior subscapularis tendon fibers is noted. 3. There is moderate intra-articular biceps tendinosis with a component of rtf-us-wkzjpdxr grade interstitial tearing suspected. 4. Severe degenerative changes of the acromioclavicular joint, and moderate to severe degenerative changes of the glenohumeral joint are noted. 5. Moderate fatty atrophy of the teres minor muscle belly which in the appropriate clinical setting can be associated with quadrilateral space syndrome although no mass is evident at the quadrilateral space. MACRO: None. Signed by: Justice Hoff 08/30/2023 11:43 AM Dictation workstation: [id number] Interpreted By: Justice Tubbs and Guraya Sahejmeet STUDY: MRI of the right shoulder without IV contrast INDICATION: Signs/Symptoms:Right shoulder Pain COMPARISON: Shoulder radiographs 08/28/2023. ACCESSION NUMBER(S): [id number] ORDERING CLINICIAN: KAPIL OROZCO TECHNIQUE: Multiplanar multisequence MRI of the right shoulder was performed without intravenous contrast. FINDINGS: Acromioclavicular Joint: There are severe degenerative changes of the acromioclavicular joint with a moderate volume joint effusion noted.. A trace volume of fluid is noted within the subacromial subdeltoid bursa.. Biceps Tendon: There is moderate thickening of the intra-articular biceps tendon with areas of and interstitial linear signal abnormality noted. Rotator Cuff: There is low-grade bursal sided tearing of the anterior and central fibers of the insertional supraspinatus tendon fibers, with focal full-thickness perforation of the insertional junctional fibers with the infraspinatus tendon noted measuring 0.4 cm AP dimension. There is mild associated tendinosis. Infraspinatus tendon is otherwise within normal limits. There is high-grade undersurface tearing of the superior subscapularis tendon fibers with mild medial subluxation of the biceps tendon. Muscles: Diffuse moderate fatty atrophy of the teres minor muscle belly is noted. Labrum:. Diffuse complex degenerative labral tearing is noted. Articular Cartilage: There is high-grade articular cartilage loss involving the humeral head and glenoid fossa. Bones: The marrow signal of the humeral head is within normal limits. No evidence acute fracture or contusion. Nerves: No evidence of mass effect in the region of the quadrilateral space or suprascapular nerve. Other: No shoulder joint effusion. MMODAL Justice Hoff M D - 08/30/2023 Interpreted By: Justice Hoff and Guraya Sahejmeet STUDY: MRI of the right shoulder without IV contrast INDICATION: Signs/Symptoms:Right shoulder Pain COMPARISON: Shoulder radiographs 08/28/2023. ACCESSION NUMBER(S): [id number] ORDERING CLINICIAN: KAPIL OROZCO TECHNIQUE: Multiplanar multisequence MRI of the right shoulder was performed without intravenous contrast. FINDINGS: Acromioclavicular Joint: There are severe degenerative changes of the acromioclavicular joint with a moderate volume joint effusion noted.. A trace volume of fluid is noted within the subacromial subdeltoid bursa.. Biceps Tendon: There is moderate thickening of the intra-articular biceps tendon with areas of and interstitial linear signal abnormality noted. Rotator Cuff: There is low-grade bursal sided tearing of the anterior and central fibers of the insertional supraspinatus tendon fibers, with focal full-thickness perforation of the insertional junctional fibers with the infraspinatus tendon noted measuring 0.4 cm AP dimension. There is mild associated tendinosis. Infraspinatus tendon is otherwise within normal limits. There is high-grade undersurface tearing of the superior subscapularis tendon fibers with mild medial subluxation of the biceps tendon. Muscles: Diffuse moderate fatty atrophy of the teres minor muscle belly is noted. Labrum:. Diffuse complex degenerative labral tearing is noted. Articular Cartilage: There is high-grade articular cartilage loss involving the humeral head and glenoid fossa. Bones: The marrow signal of the humeral head is within normal limits. No evidence acute fracture or contusion. Nerves: No evidence of mass effect in the region of the quadrilateral space or suprascapular nerve. Other: No shoulder joint effusion. IMPRESSION: 1. There is focal full-thickness tear involving the junctional fibers of the supraspinatus insertion, which measures 0.4 cm. There is also low-grade bursal sided tearing involving the anterior and central fibers with mild associated tendinosis. 2. High-grade undersurface tearing of the superior subscapularis tendon fibers is noted. 3. There is moderate intra-articular biceps tendinosis with a component of kxm-cg-cpzwsual grade interstitial tearing suspected. 4. Severe degenerative changes of the acromioclavicular joint, and moderate to severe degenerative changes of the glenohumeral joint are noted. 5. Moderate fatty atrophy of the teres minor muscle belly which in the appropriate clinical setting can be associated with quadrilateral space syndrome although no mass is evident at the quadrilateral space. MACRO: None. Signed by: Justice Hoff 08/30/2023 11:43 AM Dictation workstation: [id number] [facility] Work Phone: Radiology Study observation (narrative) [facility] Work Phone: MR Shoulder - right WO contr astOrdered By: Justice Hoff on 08-30-2023 [facility] Work Phone: L Inj/Asp: R glenohumeralon 08-28-2023 Kapil Orozco MD 08/28/2023 12:50 PM L Inj/Asp: R glenohumeral on 08/28/2023 12:48 PM Details: ultrasound-guided (DIAGNOSTIC ULTRASOUND FINAL REPORT: Right SHOULDER Provider: Kapil Orozco MD Date of Exam: Today Procedure: Ultrasound, extremity, nonvascular, real-time, COMPLETE, anatomic specific. Site: SHOULDER Indication: SHOULDER PAIN Technique: B-Mode Ultrasound Examination performed using 8-13 MHz linear transducer with [employer] STUDY TYPE: 1. ULTRASOUND EXTREMITY INCLUDING BUT NOT LIMITED TO SHOULDER MUSCLE, TENDONS, LIGAMENTS, FATTY TISSUES, SUBCUTANEOUS TISSUES AND OTHER SOFT TISSUE STRUCTURES SUCH ABSCESSES OR FREE FLUID ACCUMULATION WITHIN THE PRIMARY JOINT WELL ADJACENT JOINTS. 2. REAL TIME WITH IMAGE DOCUMENTATION 3. NON-VASCULAR 4. COMPLETE STUDY WHICH INCLUDES A THOROUGH EVALUATION OF THE SHOULDER MUSCLE, TENDONS, LIGAMENTS, FATTY TISSUES, SUBCUTANEOUS TISSUES AND OTHER SOFT TISSUE STRUCTURES SUCH ABSCESSES OR FREE FLUID ACCUMULATION WITHIN THE PRIMARY JOINT WELL ADJACENT JOINTS. Live ultrasound was performed of the patient s SHOULDER and PERMANENTLY documented. This is a thorough and complete evaluation of a specific anatomic region specifically the SHOULDER. PERMANENT Image documentation was performed. This is the complete and final ultrasound report of the patient's SHOULDER. The patient was positioned in order to optimize the ultrasound evaluation of the SHOULDER. Ultrasound gel was used as a conductive medium in order to both transmit and receive ultrasonic signals that characterize the soft tissues. . I personally performed the ultrasound and reviewed the findings. These show: Findings: SHOULDER Nola-articular evaluation: Live ultrasound was performed of the patient's SHOULDER that shows tendinitis and partial tears of the supraspinatus and infraspinatus tendons with the deltoid muscle fibers showing normal striations. There was minimal sub acromial effusion. Evaluation of the subscapularis with the arm in external rotation showed an intact and normal appearing subscapularis tendon. Small glenohumeral effusion is noted. Joint Evaluation: The biceps tendon was visualized within the bicipital groove. ) anterior approach Medications: 40 mg triamcinolone acetonide 40 mg/mL Consent was given by the patient. Immediately prior to procedure a time out was called to verify the correct patient, procedure, equipment, business support professional and site/side marked as required. Patient was prepped and draped in the usual sterile fashion. [facility] Work Phone: [facility] Work Phone: XR Pelvis AP and Hip - bilat eral GE 2 Viewson 07-21-2023 Mild osteoarthritis bilateral hips. Signed by: Mychal Howell 07/21/2023 8:23 AM Dictation workstation: [id number] MMODAL Interpreted By: Mychal Schulte, STUDY: XR HIPS BILATERAL 2 VW WITH OR WITHOUT PELVIS INDICATION: Signs/Symptoms:pain. COMPARISON: None ACCESSION NUMBER(S): [id number] ORDERING CLINICIAN: KAPIL OROZCO FINDINGS: Mild osteoarthritis bilateral hips. No fractures or lesions are seen. MMODAL Mychal Howell MD - 07/21/2023 Interpreted By: Mychal Howell, STUDY: XR HIPS BILATERAL 2 VW WITH OR WITHOUT PELVIS INDICATION: Signs/Symptoms:pain. COMPARISON: None ACCESSION NUMBER(S): [id number] ORDERING CLINICIAN: KAPIL OROZCO FINDINGS: Mild osteoarthritis bilateral hips. No fractures or lesions are seen. IMPRESSION: Mild osteoarthritis bilateral hips. Signed by: Mychal Howell 07/21/2023 8:23 AM Dictation workstation: [id number] [facility] Work Phone: XR Pelvis AP and Hip - bilat eral GE 2 ViewsOrdered By: Mychal Howell on 07-21-2023 [facility] Work Phone: XR Pelvis AP and Hip - bilat eral GE 2 Viewson 07-19-2023 Radiology Study observation (narrative) [facility] Work Phone: No Panel Informationon 06-21 Please click on the link to view the study images Normal [facility] 300 Work Phone: BASIC METABOLIC PANELon 05-26 GFR/1.73 sq M.predicted among non-blacks MDRD (S/P/Bld) [Vol rate/Area] 36 mL/min/{1.73_m2} Abnormal >90 [facility] Comment on above: Result Comment: CALC ULATIONS OF ESTIMATED GFR ARE PERFORMED USING THE 2020 CKD-EPI STUDY REFIT EQUATION WITHOUT THE RACE VARIABLE FOR THE IDMS-TRACEABLE CREATININE METHODS. https://jasn.asnjournals.org/content//ASN.738219 5930 Performed By: #### B MP #### [address] [address] HCO3 (Bld) [Moles/Vol] 29 mmol/L Normal 21 - 32 [facility] Comment on above: Performed By: #### B MP #### [address] [address] Lab Specimen Source Normal [facility] Comment on above: Performed By: #### B MP #### [address] [address] Anion gap [Moles/Vol] 12 mmol/L Normal 10 - 20 [facility] 300 Work Phone: Comment on above: Performed By: #### B MP #### [address] [address] Calcium [Mass/Vol] 8.8 mg/dL Normal 8.6 - 10.3 [facility] 300 Work Phone: Comment on above: Performed By: #### B MP #### [address] [address] Chloride [Moles/Vol] 102 mmol/L Normal 98 - 107 [facility] 300 Work Phone: Comment on above: Performed By: #### B MP #### [address] [address] Creatinine [Mass/Vol] 1.85 mg/dL High 0.50 - 1.[address] [facility] 300 Work Phone: Comment on above: Reference Range: 0.5 0 - 1.30 Performed By: #### B MP #### [address] [address] Glucose [Mass/Vol] 202 mg/dL High 74 - 99 [facility] 300 Work Phone: Comment on above: SOURCE: Performed By: #### B MP #### [address] [address] Potassium [Moles/Vol] 4.3 mmol/L Normal 3.5 - 5.3 [facility] 300 Work Phone: Comment on above: Performed By: #### B MP #### [address] [address] Sodium [Moles/Vol] 139 mmol/L Normal 136 - 145 [facility] 300 Work Phone: Comment on above: Performed By: #### B MP #### [address] [address] Urea nitrogen [Mass/Vol] 37 mg/dL High 6 - 23 [facility] 300 Work Phone: Comment on above: Performed By: #### B MP #### [address] [address] Laboratory - Chemistry and C hemistry - challengeon 06-18-2023 CO2 [Moles/Vol] 29 mmol/L 21 - 32 [facility] 300 Work Phone: No Panel Informationon 06-18 36 {mL/min/1.73m2} Abnormal >90 [facility] 300 Work Phone: Comment on above: CALCULATIONS OF APOORVA MATED GFR ARE PERFORMED USING THE 2020 CKD-EPI STUDY REFIT EQUATION WITHOUT THE RACE VARIABLE FOR THE IDMS-TRACEABLE CREATININE METHODS.https://jasn.asnjournals.org/content/early/ N.0318178418 PT Initial Evaluationon 04-24 PT Initial Evaluation Therapy Diagnosis Assessed Shoulder pain (719.41) (M25.519) Plan of Care Goals: Goals set and discussed today. 1) PT will be I with HEP with use of handouts. 05/09/2023, MET, pt is I with HEP and has handouts. Planned interventions include: education/instruction, home program, manual therapy and therapeutic exercises. Frequency and duration: No further visits planned., 1 time(s) a week, for 1 weeks, for 1 visits . PT Evaluation Only. Potential to achieve rehab goals is good Plan of care was developed with input and agreement by the patient. Assessment The pt presents with Medical Dx of B/L Shoulder Pain. The pt had a recent cortisone injection approx 1 month ago which helped immensely with his B/l shoulder pain and has not had significant pain or strength/ROM limitation since. The pt wants to do PT eval only and do some strength and flexibility ex's I at home at this time. PT evaluation only completed today and PT taught pt HEP to continue with I. No further treatment indicated at this time. PT evaluation only. Clinical Presentation: Evolving with changing characteristics. Level of Complexity: low Problem List: activity limitations, ADLs/IADLs/self care skills, decreased knowledge of HEP, flexibility, pain, range of motion/joint mobility and strength. Reason For Visit Initial Evaluation. Referred by: Dr. Orozco Adult Risk Screening There are no spiritual/cultural practices/values/needs that are important to know Initial Fall Risk Screening: KITTY has fallen in the last 6 months. He has fallen due to fell at night going the bathroom. His fall did not result in injury. KITTY does not have a fear of falling. He does not need assistance with sitting, standing or walking. Does not need assistance walking in his home. He does not need assistance in an unfamiliar setting. The patient is using an assistive device. Fall Risk Screening: Patient is identified as a fall risk. Care Plan: Moderate Risk: Low risk interventions plus: do not leave patient on exam table unattended, supervised activity, educate patient/family on falls prevention, review safety initiatives with patient/family, family at bedside as allowed, yellow falls risk band, focus rounding attention, locate patient in area of high visibility, wheelchair, bed, or personal alarm, bedside commode, elevated toilet seat and pharmacy consult for medication concerns. Pain Scale: On a scale of 0 to 10, the patient rates the pain at 0. Please identify location of pain: R Shoulder Pt reports that shoulder has been feeling good the last couple months. Living Will. Living Will: Living will on file. Healthcare POA: Health care proxy on file. Declaration of Mental Health Treatment: No mental health treatment on file. Depression/Suicide Screening: During the past 2 weeks, the patient has not felt down, depressed or hopeless. During the past 2 weeks, the patient has not felt little interest or pleasure in doing things. Insurance Insurance reviewed Visit number: 1 [facility] Ins: $35 copay per visit. Eval only. Needs sent out for auth. Dx: B/L shoulder pain M25.519 Evaluating PT: Darren Mays Subjective Current Episode of Functional Impairment and/or Pain Date of onset: 03/08/2023 Mechanism of Injury:. The pt reports that his b/l shoulder pain started a couple months ago. No mechanism of injury was reported. Pt reports that the b/l shoulder pain was worse at night and with reaching and moving the arms. The pt reports that rest, biofreeze and ibuprofen helped with the pain. Pt reports that he had a cortisone injection approx 1-2 months ago which has helped immensely and that he has not had any significant pain the last couple weeks. Pt reports that he feels he has good ROM and strength and does not really need PT at this time. Pt reports that he is concerned that PT will make the pain worse again but is agreeable to PT Eval. Medical Screening: Reviewed medical history form with patient and medical screening assessed. Current Medical Management: previous therapy: None, diagnostic tests: X-rays and medical management for current condition: . cortisone injection. Precautions: Fall Risk: moderate PMH: DM. Functional Assessment Prior level of function: Pt is I with all ADL's and IADL's prior. Functional limitations: reaching , participation in home management and lifting . Patient stated goal(s) for treatment include: relieving pain , increasing strength and returning to regular activity levels . Work Status: retired. Current Status: improving. Patient Awareness: Patient is aware of his diagnosis and prognosis. Living Environment: reviewed and no concern and single story home. Social Support: lives with spouse. Personal Factors That May Impact Care:. None. Yellow Flags:. None. Objective Ortho Observation: FHP with rounded shoulders. Palpation: No significant pain to palpation. Strength: R- Flex 5-/5 Abd 5-/5 ER 5-/5 IR 5-/5 Bicept (more content not included)... Normal [email or web address] BASIC METABOLIC PANELon 08-0 Anion gap [Moles/Vol] 13 mmol/L Normal 10 - 20 [facility] Comment on above: Performed By: #### B MP #### [address] [address] Calcium [Mass/Vol] 9.1 mg/dL Normal 8.6 - 10.3 [facility] Comment on above: Performed By: #### B MP #### [address] [address] Chloride [Moles/Vol] 104 mmol/L Normal 98 - 107 [facility] Comment on above: Performed By: #### B MP #### [address] [address] Creatinine [Mass/Vol] 2.29 mg/dL High 0.50 - 1.[address] [facility] Comment on above: Performed By: #### B MP #### [address] [address] GFR/1.73 sq M.predicted among non-blacks MDRD (S/P/Bld) [Vol rate/Area] 28 mL/min/{1.73_m2} Abnormal >90 [facility] Comment on above: Result Comment: CALC ULATIONS OF ESTIMATED GFR ARE PERFORMED USING THE 2020 CKD-EPI STUDY REFIT EQUATION WITHOUT THE RACE VARIABLE FOR THE IDMS-TRACEABLE CREATININE METHODS. https://jasn.asnjournals.org/content/early//ASN.874686 8650 Performed By: #### B MP #### [address] [address] Glucose [Mass/Vol] 137 mg/dL High 74 - 99 [facility] Comment on above: Performed By: #### B MP #### [address] [address] HCO3 (Bld) [Moles/Vol] 25 mmol/L Normal 21 - 32 [facility] Comment on above: Performed By: #### B MP #### [address] [address] Potassium [Moles/Vol] 5.2 mmol/L Normal 3.5 - 5.3 [facility] Comment on above: Performed By: #### B MP #### [address] [address] Sodium [Moles/Vol] 137 mmol/L Normal 136 - 145 [facility] Comment on above: Performed By: #### B MP #### [address] [address] Urea nitrogen [Mass/Vol] 43 mg/dL High 6 - 23 [facility] Comment on above: Performed By: #### B MP #### [address] [address] Lab Specimen Source Normal [facility] Comment on above: Performed By: #### B MP #### [address] [address] BASIC METABOLIC PANELon 08-0 -2022 Anion gap [Moles/Vol] 11 mmol/L Normal 10 - 20 [facility] Comment on above: Performed By: #### B MP #### [address] [address] Calcium [Mass/Vol] 8.6 mg/dL Normal 8.6 - 10.3 [facility] Comment on above: Performed By: #### B MP #### [address] [address] Chloride [Moles/Vol] 107 mmol/L Normal 98 - 107 [facility] Comment on above: Performed By: #### B MP #### [address] [address] Creatinine [Mass/Vol] 2.00 mg/dL High 0.50 - 1.[address] [facility] Comment on above: Performed By: #### B MP #### [address] [address] GFR/1.73 sq M.predicted among non-blacks MDRD (S/P/Bld) [Vol rate/Area] 33 mL/min/{1.73_m2} Abnormal >90 [facility] Comment on above: Result Comment: CALC ULATIONS OF ESTIMATED GFR ARE PERFORMED USING THE 2020 CKD-EPI STUDY REFIT EQUATION WITHOUT THE RACE VARIABLE FOR THE IDMS-TRACEABLE CREATININE METHODS. https://jasn.asnjournals.org/content//ASN.013962 1767 Performed By: #### B MP #### [place] [id number] Glucose [Mass/Vol] 97 mg/dL Normal 74 - 99 [facility] Comment on above: Performed By: #### B MP #### [address] [address] HCO3 (Bld) [Moles/Vol] 26 mmol/L Normal 21 - 32 [facility] Comment on above: Performed By: #### B MP #### [place] [id number] Potassium [Moles/Vol] 5.2 mmol/L Normal 3.5 - 5.3 [facility] Comment on above: Performed By: #### B MP #### [address] [address] Sodium [Moles/Vol] 139 mmol/L Normal 136 - 145 [facility] Comment on above: Performed By: #### B MP #### [address] [address] Urea nitrogen [Mass/Vol] 28 mg/dL High 6 - 23 [facility] Comment on above: Performed By: #### B MP #### [address] [address] Lab Specimen Source Normal [facility] Comment on above: Performed By: #### B MP #### [address] [address] Laboratory - Chemistry and C hemistry - challengeon 04-27-2023 Anion gap [Moles/Vol] 11 mmol/L 10 - 20 - [facility] 300 Work Phone: Calcium [Mass/Vol] 8.6 mg/dL 8.6 - 10.3 [facility] 300 Work Phone: Chloride [Moles/Vol] 107 mmol/L 98 - 107 [facility] 300 Work Phone: CO2 [Moles/Vol] 26 mmol/L 21 - 32 [facility] 300 Work Phone: Creatinine [Mass/Vol] 2.00 mg/dL above high threshold See Below [facility] 300 Work Phone: Comment on above: Reference Range: 0.5 0 - 1.30 Glucose [Mass/Vol] 97 mg/dL 74 - 99 [facility] 300 Work Phone: Comment on above: SOURCE: Potassium [Moles/Vol] 5.2 mmol/L 3.5 - 5.3 [facility] 300 Work Phone: Sodium [Moles/Vol] 139 mmol/L 136 - 145 [facility] 300 Work Phone: Urea nitrogen [Mass/Vol] 28 mg/dL above high threshold 6 - 23 [facility] 300 Work Phone: No Panel Informationon 04-27 33 {mL/min/1.73m2} Abnormal >90 [facility] 300 Work Phone: Comment on above: CALCULATIONS OF APOORVA MATED GFR ARE PERFORMED USING THE 2020 CKD-EPI STUDY REFIT EQUATION WITHOUT THE RACE VARIABLE FOR THE IDMS-TRACEABLE CREATININE METHODS.https://jasn.asnjournals.org/content/early// N.9083025160 No Panel Informationon 04-26 Please click on the link to view the study images Normal [facility] 300 Work Phone: CBCon 04-17-2023 Erythrocyte distribution width (RBC) [Ratio] 14.3 % Normal 11.5 - 14.5 [facility] Comment on above: Performed By: #### C BC #### [address] [address] Hematocrit (Bld) [Volume fraction] 36.6 % Low 41.0 - 52.0 [facility] Comment on above: Performed By: #### C BC #### [address] [address] Hemoglobin (Bld) [Mass/Vol] 11.6 g/dL Low 13.5 - 17.5 [facility] Comment on above: Performed By: #### C BC #### [address] [address] MCHC (RBC) [Mass/Vol] 31.7 g/dL Low 32.0 - 36.[address] [facility] Comment on above: Performed By: #### C BC #### [address] [address] MCV (RBC) [Entitic vol] 95 fL Normal 80 - 100 [facility] Comment on above: Performed By: #### C BC #### [address] [address] Platelets (Bld) [#/Vol] 271 10*3/uL Normal 150 - 450 [facility] Comment on above: Performed By: #### C BC #### [address] [address] RBC 3.85 x10E12/L Low 4.50 - 5.90 [facility] Comment on above: Performed By: #### C BC #### [address] [address] WBC (Bld) [#/Vol] 7.9 10*3/uL Normal 4.4 - 11.3 [facility] Comment on above: Performed By: #### C BC #### [address] [address] Lab Specimen Source Normal [facility] Comment on above: Performed By: #### C BC #### [address] [address] Performed By: #### C MP #### [address] [address] COMPREHENSIVE PANELon 2022 Albumin [Mass/Vol] 3.9 g/dL Normal 3.4 - 5.0 [facility] Comment on above: Performed By: #### C MP #### [address] [address] ALP [Catalytic activity/Vol] 53 U/L Normal 33 - 136 [facility] Comment on above: Performed By: #### C MP #### [address] [address] ALT [Catalytic activity/Vol] 8 U/L Low 10 - 52 [facility] Comment on above: Result Comment: Jaci ents treated with Sulfasalazine may generate falsely decreased results for ALT. Performed By: #### C MP #### [address] [address] Anion gap [Moles/Vol] 14 mmol/L Normal 10 - 20 [facility] Comment on above: Performed By: #### C MP #### [address] [address] AST [Catalytic activity/Vol] 10 U/L Normal 9 - 39 [facility] Comment on above: Performed By: #### C MP #### [address] [address] Bilirubin [Mass/Vol] 0.6 mg/dL Normal 0.0 - 1.2 [facility] Comment on above: Performed By: #### C MP #### [address] [address] Calcium [Mass/Vol] 8.9 mg/dL Normal 8.6 - 10.3 [facility] Comment on above: Performed By: #### C MP #### [address] [address] Chloride [Moles/Vol] 105 mmol/L Normal 98 - 107 [facility] Comment on above: Performed By: #### C MP #### [address] [address] Creatinine [Mass/Vol] 2.20 mg/dL High 0.50 - 1.[address] [facility] Comment on above: Performed By: #### C MP #### [address] [address] GFR/1.73 sq M.predicted among non-blacks MDRD (S/P/Bld) [Vol rate/Area] 29 mL/min/{1.73_m2} Abnormal >90 [facility] Comment on above: Result Comment: CALC ULATIONS OF ESTIMATED GFR ARE PERFORMED USING THE 2020 CKD-EPI STUDY REFIT EQUATION WITHOUT THE RACE VARIABLE FOR THE IDMS-TRACEABLE CREATININE METHODS. https://jasn.asnjournals.org/content/early/ASN.215158 0382 Performed By: #### C MP #### [address] [address] Glucose [Mass/Vol] 284 mg/dL High 74 - 99 [facility] Comment on above: Performed By: #### C MP #### [address] [address] HCO3 (Bld) [Moles/Vol] 24 mmol/L Normal 21 - 32 [facility] Comment on above: Performed By: #### C MP #### [address] [address] Potassium [Moles/Vol] 5.5 mmol/L High 3.5 - 5.3 [facility] Comment on above: Performed By: #### C MP #### [address] [address] Protein [Mass/Vol] 6.8 g/dL Normal 6.4 - 8.2 [facility] Comment on above: Performed By: #### C MP #### [address] [address] Sodium [Moles/Vol] 137 mmol/L Normal 136 - 145 [facility] Comment on above: Performed By: #### C MP #### [address] [address] Urea nitrogen [Mass/Vol] 43 mg/dL High 6 - 23 [facility] Comment on above: Performed By: #### C MP #### [address] [address] HEMOGLOBIN A1Con 04-17-2023 Glucose [Mass/Vol] 157 mg/dL Normal [facility] Comment on above: Performed By: #### H BA1E #### [address] [address] HbA1c (Bld) [Mass fraction] 7.1 % Abnormal [facility] Comment on above: Result Comment: Diag nosis of Diabetes-Adults Non-Diabetic: < or = 5.6% Increased risk for developing diabetes: 5.7-6.4% Diagnostic of diabetes: > or = 6.5% . Monitoring of Diabetes Age (y) Therapeutic Goal (%) Adults: >18 <7.0 Pediatrics: 13-18 <7.5 7-12 <8.0 0- 6 7.5-8.5 [place] [employer]. Diabetes Care 33(S1), Sep 2009. Performed By: #### H BA1E #### [address] [address] Hemoglobin A1Con 04-17-2023 Glucose [Mass/Vol] 157 mg/dL [facility] 300 Work Phone: HbA1c (Bld) [Mass fraction] 7.1 % Abnormal [facility] 300 Work Phone: Comment on above: Diagnosis of Diabete s-Adults Non-Diabetic: < or = 5.6% Increased risk for developing diabetes: 5.7-6.4% Diagnostic of diabetes: > or = 6.5%. Monitoring of Diabetes Age (y) Therapeutic Goal (%) Adults: >18 <7.0 Pediatrics: 13-18 <7.5 7-12 <8.0 0- 6 7.5-8.5 [place]. Diabetes Care 33(S1), Sep 2009. Laboratory - Chemistry and C hemistry - challengeon 04-17-2023 Albumin BCP dye [Mass/Vol] 3.9 g/dL 3.4 - 5.0 [facility] 300 Work Phone: ALP [Catalytic activity/Vol] 53 U/L 33 - 136 [facility] 300 Work Phone: ALT With P-5'-P [Catalytic activity/Vol] 8 U/L below low threshold 10 - 52 [facility] 300 Work Phone: Comment on above: Patients treated wit h Sulfasalazine may generate falsely decreased results for ALT. Anion gap [Moles/Vol] 14 mmol/L 10 - 20 [facility] 300 Work Phone: AST With P-5'-P [Catalytic activity/Vol] 10 U/L 9 - 39 [facility] 300 Work Phone: Bilirubin [Mass/Vol] 0.6 mg/dL 0.0 - 1.2 [facility] 300 Work Phone: Calcium [Mass/Vol] 8.9 mg/dL 8.6 - 10.3 [facility] 300 Work Phone: Chloride [Moles/Vol] 105 mmol/L 98 - 107 [facility] 300 Work Phone: CO2 [Moles/Vol] 24 mmol/L 21 - 32 [facility] 300 Work Phone: Creatinine [Mass/Vol] 2.20 mg/dL above high threshold See Below [facility] 300 Work Phone: Comment on above: Reference Range: 0.5 0 - 1.30 Glucose [Mass/Vol] 284 mg/dL above high threshold 74 - 99 [facility] 300 Work Phone: Comment on above: SOURCE: Potassium [Moles/Vol] 5.5 mmol/L above high threshold 3.5 - 5.3 [facility] 300 Work Phone: Protein [Mass/Vol] 6.8 g/dL 6.4 - 8.2 [facility] 300 Work Phone: Sodium [Moles/Vol] 137 mmol/L 136 - 145 [facility] 300 Work Phone: Urea nitrogen [Mass/Vol] 43 mg/dL above high threshold 6 - 23 [facility] 300 Work Phone: Laboratory - Hematology and Cell countson 04-17-2023 Erythrocyte distribution width (RBC) [Ratio] 14.3 % See Below [facility] 300 Work Phone: Comment on above: Reference Range: 11. 5 - 14.5 Hematocrit (Bld) [Volume fraction] 36.6 % below low threshold See Below [facility] 300 Work Phone: Comment on above: Reference Range: 41. 0 - 52.0 Hemoglobin (Bld) [Mass/Vol] 11.6 g/dL below low threshold See Below [facility] 300 Work Phone: Comment on above: Reference Range: 13. 5 - 17.5 MCHC (RBC) [Mass/Vol] 31.7 g/dL below low threshold See Below [facility] 300 Work Phone: Comment on above: Reference Range: 32. 0 - 36.0 MCV (RBC) [Entitic vol] 95 fL 80 - 100 [facility] 300 Work Phone: Platelets (Bld) [#/Vol] 271 10*3/uL 150 - 450 [facility] 300 Work Phone: RBC (Bld) [#/Vol] 3.85 {x10E12/L} below low threshold See Below [facility] 300 Work Phone: Comment on above: Reference Range: 4.5 0 - 5.90 WBC (Bld) [#/Vol] 7.9 10*3/uL 4.4 - 11.3 [facility] 300 Work Phone: Comment on above: SOURCE: No Panel Informationon 04-17 29 {mL/min/1.73m2} Abnormal >90 [facility] 300 Work Phone: Comment on above: CALCULATIONS OF APOORVA MATED GFR ARE PERFORMED USING THE 2020 CKD-EPI STUDY REFIT EQUATION WITHOUT THE RACE VARIABLE FOR THE IDMS-TRACEABLE CREATININE METHODS.https://jasn.asnjournals.org/content/early/ N.0392000371 TSHon 04-17-2023 TSH Qn 4.17 m[IU]/L High 0.44 - 3.98 [facility] Comment on above: Result Comment: TSH testing is performed using different testing methodology at [facility] than at other [facility]. Direct result comparisons should only be made within the same method. Performed By: #### C #### [id number] [place] [address] TSH - Thyroid Stimulating Ho jeannie, Serumon 04-17-2023 TSH Qn 4.17 m[IU]/L above high threshold See Below [facility] 300 Work Phone: Comment on above: SOURCE: Reference Ra nge: 0.44 - 3.98 TSH testing is performed using different testing methodology at [facility] than at other [facility]. Direct result comparisons should only be made within the same method. CNOVon 04-06-2023 CNOV Office Visit (PNMDNA ) KITTY VERGARA ([id number]) 1940 M DEF Date Time Provider Department 04/06/23 10:30 AM MARY JUNIOR PNMDNA During your visit today, we recorded the following information about you: Pulse Weight Height 81/minute 108.5 kg 1.791 m Mary Junior APRN.MINE ENGINEERING SUPERVISOR 04/07/2023 2:30 PM Signed SUBJECTIVE: Kitty Vergara presents to [facility] for a follow up appointment Since the last visit, Kitty Vergara states the pain has been stable. Current pain intensity is 0 on a scale of 0-10. Pain located in bilateral feet area and does not radiate. Pain described as sharp The patient Denies weakness, numbness, tingling, and morning stiffness. Symptoms interfere with unable to pinpoit. Pain is exacerbated by unable to pinpoint exacerbating factors/positions. Pain is mitigated by medications. The medications are effective. The patient states the last dose of . Neurontin/gabapentin was taken at this morning at 8am. REVIEW OF SYSTEMS: Constitutional: (-) Weight Gain (-) Weight Loss (-) Fatigue Cardiovascular: (-) hx heart surgery (-) Pacemaker Respiratory: (-) Shortness of Breath (-) Cough (-) Snoring Gastrointestinal: (-) Incontinence (-) Diarrhea (-) Constipation (-) Nausea/Vomiting Endocrine: (-) Thyroid Disorder (+) Diabetes Hematologic: (-) Prolonged Bleeding (+) Easy Bruising Genitourinary: (-) Incontinence (-) Frequency (+) Urinary Urgency Skin: (+) Open sores/wound Neurologic: (+) Headache (+) Double Vision Psychiatric: (-) Depression (-) Anxiety (-) Personal History of Alcohol or Substance Abuse (-) Family History of Alcohol or Substance Abuse CHIEF COMPLAINT:Patient presents with: Follow Up OBJECTIVE: Pulse 81 Ht 5' 10.5" (1.79m) Wt 239 lb 1.6 oz (108.5kg) SpO2 98% BMI 33.81 kg/(m2). PHYSICAL EXAMINATION: General appearance: Well appearing, in no acute distress, alert and oriented x3 Skin: Skin color, texture, turgor normal, no rashes or lesions Neck: No pain to palpation over the cervical paraspinous muscles. No pain with neck flexion, extension, or lateral flexion Cardiovascular: Regular, rate and rhythm Lungs: Normal respiratory rate and rhythm, Lungs clear to auscultation Back: Intact range of motion without pain reproduction. Spine: DeniesTenderness on palpation: Lumbar Extremities: No deformities, edema, or skin discoloration. Good capillary refill. Musculoskeletal: pain in the hands, no edema , no extremity tenderness Neuro: Neuropathy in the feet. Motor skills intact Station and Gait: antalgic gait ASSESSMENT: Assessment : Patient presents for medication refills Patient has a history of diabetic neuropathy in his feet. He experiences numbness, tingling and burning He reports he experiencing sharp pains in his hands for the past 2 to 3 years Patient takes gabapentin to help manage his chronic pain Encounter Diagnosis ICD-10-CM 1. Diabetic peripheral neuropathy (HCC) E11.42 gabapentin (NEURONTIN) 300 mg capsule PDMP website checked and validated. All prescriptions have been APPROPRIATELY filled. No suspicious activity was identified. 04/06/2023 by Mary Junior APRN.MINE ENGINEERING SUPERVISOR Narcotic Agreement reviewed and signed?: N/A on April 06, 2023 The pain panel was N/A PLAN: Injection history was reviewed. Medication use and compliance were reviewed. 1. Continue medication management through the [facility] 2. The following approved medication requests have been transmitted electronically. Requested Prescriptions Signed Prescriptions Disp Refills gabapentin (NEURONTIN) 300 mg capsule 60 capsule 5 Sig: Take 1 capsule by mouth twice daily for 30 days. 3. Interventional procedure options discussed. none 4. Encouraged regular home exercise program. 5) F/U in 6 months I spent a total of 20 minutes on the date of the service which included preparing to see the patient, [id number] patient care, completing clinical documentation, performing a medically appropriate examination, and ordering medications, tests, or procedures. The above plan and management options were discussed at length with patient. Patient is in agreement with the above and verbalized understanding. Mary Junior APRN, MINE ENGINEERING SUPERVISOR April 06, 2023 Allergies As of Date: 04/06/2023 Noted Allergy Reaction [id number] REDUCTASE INHIBIT*01/03/2023 7 - Swelling Comments: Tongue swelling Date Reviewed: 04/06/2023 Reviewed by: Ninfa White MA - Fully Assessed Reason for Visit: Follow Up [171] Visit Diagnosis:Diabetic peripheral neuropathy (HCC) [E11.42] Order(s):gabapentin (NEURONTIN) 300 mg capsuleTake 1 capsule by mouth twice daily for 30 days.Disp: 60 capsuleRfl: 5 Prescriptions as of 04/07/2023 - clopidogrel (PLAVIX) 75 mg tablet Take 75 mg by mouth once daily. - fenofibrate (more content not included)... Normal [facility] CBC AND DIFFERENTIALon 03-28 % AUTOMATED IMMATURE GRAN 0.8 % Normal 0.0 - 0.9 [facility] Comment on above: Result Comment: Eva ture Granulocyte Count (IG) includes promyelocytes, myelocytes and metamyelocytes but does not include bands. Percent differential counts (%) should be interpreted in the context of the absolute cell counts (cells/L). Performed By: #### H TAMIE1E #### [address] [address] Basophils (Bld) [#/Vol] 0.07 10*3/uL Normal 0.00 - 0.10 [facility] Comment on above: Performed By: #### H TAMIE1E #### [address] [address] Basophils/100 WBC (Bld) 0.6 % Normal 0.0 - 2.0 [facility] Comment on above: Performed By: #### H TAMIE1E #### [address] [address] Eosinophils (Bld) [#/Vol] 0.20 10*3/uL Normal 0.00 - 0.40 [facility] Comment on above: Performed By: #### H BA1E #### [address] [address] Eosinophils/100 WBC (Bld) 1.7 % Normal 0.0 - 6.0 [facility] Comment on above: Performed By: #### H BA1E #### [address] [address] Erythrocyte distribution width (RBC) [Ratio] 14.6 % High 11.5 - 14.5 [facility] Comment on above: Performed By: #### H BA1E #### [address] [address] Hematocrit (Bld) [Volume fraction] 35.2 % Low 41.0 - 52.0 [facility] Comment on above: Performed By: #### H BA1E #### [address] [address] Hemoglobin (Bld) [Mass/Vol] 11.9 g/dL Low 13.5 - 17.5 [facility] Comment on above: Performed By: #### H TAMIE #### [address] [address] Lymphocytes (Bld) [#/Vol] 3.10 10*3/uL High 0.80 - 3.00 [facility] Comment on above: Performed By: #### H TAMIE #### [address] [address] Lymphocytes/100 WBC (Bld) 26.1 % Normal 13.0 - 44.0 [facility] Comment on above: Performed By: #### H TAMIE #### [address] [address] MCHC (RBC) [Mass/Vol] 33.8 g/dL Normal 32.0 - 36.[address] [facility] Comment on above: Performed By: #### H TAMIE #### [address] [address] MCV (RBC) [Entitic vol] 92 fL Normal 80 - 100 [facility] Comment on above: Performed By: #### H TAMIE #### [address] [address] Monocytes (Bld) [#/Vol] 0.94 10*3/uL High 0.05 - 0.80 [facility] Comment on above: Performed By: #### H TAMIE1E #### [address] [address] Monocytes/100 WBC (Bld) 7.9 % Normal 2.0 - 10.0 [facility] Comment on above: Performed By: #### H TAMIE #### [address] [address] Neutrophils (Bld) [#/Vol] 7.46 10*3/uL High 1.60 - 5.50 [facility] Comment on above: Result Comment: Perc ent differential counts (%) should be interpreted in the context of the absolute cell counts (cells/L). Performed By: #### H BA1E #### [address] [address] Neutrophils/100 WBC (Bld) 62.9 % Normal 40.0 - 80.0 [facility] Comment on above: Performed By: #### H BA1E #### [address] [address] Platelets (Bld) [#/Vol] 197 10*3/uL Normal 150 - 450 [facility] Comment on above: Performed By: #### H BA1E #### [address] [address] RBC 3.83 x10E12/L Low 4.50 - 5.90 [facility] Comment on above: Performed By: #### H BA1E #### [address] [address] WBC (Bld) [#/Vol] 11.9 10*3/uL High 4.4 - 11.3 [facility] Comment on above: Performed By: #### H BA1E #### [id number] COMPREHENSIVE PANELon 2022 Albumin [Mass/Vol] 3.7 g/dL Normal 3.4 - 5.0 [facility] Comment on above: Performed By: #### C MP #### [address] [address] ALP [Catalytic activity/Vol] 70 U/L Normal 33 - 136 [facility] Comment on above: Performed By: #### C MP #### [address] [address] ALT [Catalytic activity/Vol] 10 U/L Normal 10 - 52 [facility] Comment on above: Result Comment: Jaci ents treated with Sulfasalazine may generate falsely decreased results for ALT. Performed By: #### C MP #### [address] [address] Anion gap [Moles/Vol] 11 mmol/L Normal 10 - 20 [facility] Comment on above: Performed By: #### C MP #### [address] [address] AST [Catalytic activity/Vol] 10 U/L Normal 9 - 39 [facility] Comment on above: Performed By: #### C MP #### [address] [address] Bilirubin [Mass/Vol] 0.7 mg/dL Normal 0.0 - 1.2 [facility] Comment on above: Performed By: #### C MP #### [address] [address] Calcium [Mass/Vol] 8.6 mg/dL Normal 8.6 - 10.3 [facility] Comment on above: Performed By: #### C MP #### [address] [address] Chloride [Moles/Vol] 106 mmol/L Normal 98 - 107 [facility] Comment on above: Performed By: #### C MP #### [address] [address] Creatinine [Mass/Vol] 1.80 mg/dL High 0.50 - 1.[address] [facility] Comment on above: Performed By: #### C MP #### [address] [address] GFR/1.73 sq M.predicted among non-blacks MDRD (S/P/Bld) [Vol rate/Area] 37 mL/min/{1.73_m2} Abnormal >90 [facility] Comment on above: Result Comment: CALC ULATIONS OF ESTIMATED GFR ARE PERFORMED USING THE 2020 CKD-EPI STUDY REFIT EQUATION WITHOUT THE RACE VARIABLE FOR THE IDMS-TRACEABLE CREATININE METHODS. https://jasn.asnjournals.org/content//ASN.441508 2793 Performed By: #### C MP #### [address] [address] Glucose [Mass/Vol] 156 mg/dL High 74 - 99 [facility] Comment on above: Performed By: #### C MP #### [address] [address] HCO3 (Bld) [Moles/Vol] 24 mmol/L Normal 21 - 32 [facility] Comment on above: Performed By: #### C MP #### [address] [address] Potassium [Moles/Vol] 4.8 mmol/L Normal 3.5 - 5.3 [facility] Comment on above: Performed By: #### C MP #### [address] [address] Protein [Mass/Vol] 6.9 g/dL Normal 6.4 - 8.2 [facility] Comment on above: Performed By: #### C MP #### [address] [address] Sodium [Moles/Vol] 136 mmol/L Normal 136 - 145 [facility] Comment on above: Performed By: #### C MP #### [address] [address] Urea nitrogen [Mass/Vol] 48 mg/dL High 6 - 23 [facility] Comment on above: Performed By: #### C MP #### [address] [address] Complete Blood Count + Diffe [email or web address] 03-28-2023 Basophils/100 WBC (Bld) 0.6 % 0.0 - 2.0 [facility] 300 Work Phone: Erythrocyte distribution width (RBC) [Ratio] 14.6 % above high threshold See Below [facility] 300 Work Phone: Comment on above: Reference Range: 11. 5 - 14.5 Hematocrit (Bld) [Volume fraction] 35.2 % below low threshold See Below [facility] 300 Work Phone: Comment on above: Reference Range: 41. 0 - 52.0 Hemoglobin (Bld) [Mass/Vol] 11.9 g/dL below low threshold See Below [facility] 300 Work Phone: Comment on above: Reference Range: 13. 5 - 17.5 Lymphocytes/100 WBC (Bld) 26.1 % See Below [facility] 300 Work Phone: Comment on above: Reference Range: 13. 0 - 44.0 MCHC (RBC) [Mass/Vol] 33.8 g/dL See Below [facility] 300 Work Phone: Comment on above: Reference Range: 32. 0 - 36.0 MCV (RBC) [Entitic vol] 92 fL 80 - 100 -[facility] 300 Work Phone: Monocytes/100 WBC (Bld) 7.9 % 2.0 - 10.0 -[facility] 300 Work Phone: Neutrophils/100 WBC (Bld) 62.9 % See Below [facility] 300 Work Phone: Comment on above: Reference Range: 40. 0 - 80.0 Platelets (Bld) [#/Vol] 197 10*3/uL 150 - 450 [facility] 300 Work Phone: RBC (Bld) [#/Vol] 3.83 {x10E12/L} below low threshold See Below [facility] 300 Work Phone: Comment on above: Reference Range: 4.5 0 - 5.90 WBC (Bld) [#/Vol] 11.9 10*3/uL above high threshold 4.4 - 11.3 [facility] 300 Work Phone: Complete Blood Count + Differential 0.07 {x10E9/L} See Below [facility] 300 Work Phone: Comment on above: Reference Range: 0.0 0 - 0.10 Complete Blood Count + Differential 0.20 {x10E9/L} See Below [facility] 300 Work Phone: Comment on above: Reference Range: 0.0 0 - 0.40 Complete Blood Count + Differential 0.94 {x10E9/L} above high threshold See Below [facility] 300 Work Phone: Comment on above: Reference Range: 0.0 5 - 0.80 Complete Blood Count + Differential 3.10 {x10E9/L} above high threshold See Below [facility] 300 Work Phone: Comment on above: Reference Range: 0.8 0 - 3.00 Complete Blood Count + Differential 7.46 {x10E9/L} above high threshold See Below [facility] 300 Work Phone: Comment on above: Reference Range: 1.6 0 - 5.50 Percent differential counts (%) should be interpreted in the context of the absolute cell counts (cells/L). Complete Blood Count + Differential 1.7 % 0.0 - 6.0 [facility] 300 Work Phone: Complete Blood Count + Differential 0.8 % 0.0 - 0.9 [facility] 300 Work Phone: Comment on above: Immature Granulocyte Count (IG) includes promyelocytes, myelocytes and metamyelocytes but does not include bands. Percent differential counts (%) should be interpreted in the context of the absolute cell counts (cells/L). Echocardiogramon 03-28-2023 [place] [address] [phone], TRANSTHORACIC ECHOCARDIOGRAM REPORT Patient Name: KITTY Walker Physician: [id number] Santiago Marquez MD Study Date: 03/28/2023 Referring Physician: GOPI VERGARA MRN/PID: [id number] PCP: Accession/Order#: [id number] Department Location: [facility] ED Date of : 1940 Fellow: Gender: M Nurse: Admit Date: Manager Garden: Mary Vergara RVT, RCS Admission Status: Emergency Additional Staff: Height: 172.00 cm CC Report to: Weight: 107.00 kg Study Type: Echocardiogram BSA: 2.19 m2 Blood Pressure: 180 /88 mmHg Diagnosis/ICD: P68-Dywwudnyu (primary) hypertension Indication: Blurred vision,HTN Procedure/CPT: Echo Complete w Full [id number] Patient History: Pertinent History: Previous echo 05-17-32. Study Detail: The following Echo studies were performed: 2D, M-Mode, Doppler and color flow. Definity used as a contrast agent for endocardial border definition and agitated saline used as a contrast agent for intraseptal flow evaluation. Total contrast used for this procedure was 1 mL via IV push. The patient was awake. PHYSICIAN INTERPRETATION: Left Ventricle: Left ventricular systolic function is normal, with an estimated ejection fraction of 60%. There are no regional wall motion abnormalities. The left ventricular cavity size is normal. Spectral Doppler shows a pseudonormal pattern of left ventricular diastolic filling. Left Atrium: The left atrium is normal in size. A bubble study using agitated saline was performed. Bubble study is negative. Right Ventricle: The right ventricle is normal in size. There is normal right ventricular global systolic function. Right Atrium: The right atrium is normal in size. Aortic Valve: The aortic valve is trileaflet. There is no evidence of aortic valve regurgitation. The peak instantaneous gradient of the aortic valve is 25.2 mmHg. The mean gradient of the aortic valve is 15.0 mmHg. Mean transaortic gradient 21 mmHg, peak velocity 3.0 m/s, dimensionless index 0.37. Calculated aortic valve area 1.1 cm?. Mitral Valve: The mitral valve is normal in structure. There is no evidence of mitral valve regurgitation. Tricuspid Valve: The tricuspid valve is structurally normal. There is mild tricuspid regurgitation. Pulmonic Valve: The pulmonic valve is not well visualized. There is no indication of pulmonic valve regurgitation. Pericardium: There is no pericardial effusion noted. Aorta: The aortic root is normal. CONCLUSIONS: 1. Left ventricular systolic function is normal with a 60% estimated ejection fraction. 2. Spectral Doppler shows a pseudonormal pattern of left ventricular diastolic filling. QUANTITATIVE DATA SUMMARY: 2D MEASUREMENTS: Normal Ranges: Ao Root d: 2.80 cm (2.0-3.7cm) LAs: 3.50 cm (2.7-4.0cm) IVSd: 1.61 cm (0.6-1.1cm) LVPWd: 1.47 cm (0.6-1.1cm) LVIDd: 4.50 cm (3.9-5.9cm) LVIDs: 3.45 cm LV Mass Index: 131.4 g/m2 LV % FS 23.3 % LA VOLUME: Normal Ranges: LA Vol A4C: 32.5 ml (22+/-6mL/m2) LA Vol A2C: 38.9 ml LA Vol BP: 38.4 ml LA Vol Index A4C: 14.9ml/m2 LA Vol Index A2C: 17.8 ml/m2 LA Vol Index BP: 17.6 ml/m2 LA Area A4C: 15.5 cm2 LA Area A2C: 15.7 cm2 LA Major Goltry A4C: 6.3 cm LA Major Goltry A2C: 5.4 cm LA Volume Index: 17.1 ml/m2 LA Vol A4C: 31.4 ml LA Vol A2C: 37.4 ml M-MODE MEASUREMENTS: Normal Ranges: AoV Exc: 0.80 cm (1.5-2.5cm) AORTA MEASUREMENTS: Normal Ranges: AoV Exc: 0.80 cm (1.5-2.5cm) LV SYSTOLIC FUNCTION BY 2D PLANIMETRY (MOD): Normal Ranges: EF-A4C View: 50.2 % (>=55%) EF-A2C View: 54.2 % EF-Biplane: 52.7 % LV DIASTOLIC FUNCTION: Normal Ranges: MV Peak E: 1.02 m/s (0.7-1.2 m/s) MV Peak A: 1.03 m/s (0.42-0.7 m/s) E/A Ratio: 0.99 (1.0-2.2) MV e' 0.07 m/s (>8.0) MV lateral e' 0.07 m/s MV medial e' 0.08 m/s E/e' Ratio: 14.57 (<8.0) MITRAL VALVE: Normal Ranges: MV DT: 349 msec (150-240msec) MITRAL INSUFFICIENCY: Normal Ranges: MR Vmax: 314.00 cm/s AORTIC VALVE: Normal Ranges: AoV Vmax: 2.51 m/s (<=1.7m/s) AoV Peak P.2 mmHg (<20mmHg) AoV Mean P.0 mmHg (1.7-11.5mmHg) LVOT Max Clyde: 1.12 m/s (<=1.1m/s) AoV VTI: 65.70 cm (18-25cm) LVOT VTI: 28.60 cm LVOT Diameter: 1.90 cm (1.8-2.4cm) AoV Area, VTI: 1.23 cm2 (2.5-5.5cm2) AoV Area,Vmax: 1.27 cm2 (2.5-4.5cm2) AoV Dimensionless Index: 0.44 RIGHT VENTRICLE: RV 1 2.99 cm RV 2 2.74 cm RV 3 6.05 cm RV Basal 2.99 cm RV Mid 2.74 cm RV Major 6.0 cm TAPSE: 22.4 mm TRICUSPID VALVE/RVSP: Normal Ranges: Peak TR Velocity: 2.64 m/s RV Syst Pressure: 30.9 mmHg (< 30mmHg) PULMONIC VALVE: Normal Ranges: PV Accel Time: 95 msec (>120ms) PV Max Clyde: 1.2 m/s (0.6-0.9m/s) PV Max P.2 mmHg [id number] Santiago Marquez MD Electronically signed on 03/28/2023 at 12:19:15 PM Final Normal [facility] Laboratory - Chemistry and C hemistry - challengeon 03-28-2023 Albumin BCP dye [Mass/Vol] 3.7 g/dL 3.4 - 5.0 [facility] 300 Work Phone: ALP [Catalytic activity/Vol] 70 U/L 33 - 136 [facility] 300 Work Phone: ALT With P-5'-P [Catalytic activity/Vol] 10 U/L 10 - 52 [facility] 300 Work Phone: Comment on above: Patients treated wit h Sulfasalazine may generate falsely decreased results for ALT. Anion gap [Moles/Vol] 11 mmol/L 10 - 20 [facility] 300 Work Phone: AST With P-5'-P [Catalytic activity/Vol] 10 U/L 9 - 39 [facility] 300 Work Phone: Bilirubin [Mass/Vol] 0.7 mg/dL 0.0 - 1.2 [facility] 300 Work Phone: Calcium [Mass/Vol] 8.6 mg/dL 8.6 - 10.3 [facility] 300 Work Phone: Chloride [Moles/Vol] 106 mmol/L 98 - 107 [facility] 300 Work Phone: CO2 [Moles/Vol] 24 mmol/L 21 - 32 [facility] [place] 300 Work Phone: Creatinine [Mass/Vol] 1.80 mg/dL above high threshold See Below [facility] 300 Work Phone: Comment on above: Reference Range: 0.5 0 - 1.30 Glucose [Mass/Vol] 156 mg/dL above high threshold 74 - 99 [facility] 300 Work Phone: Potassium [Moles/Vol] 4.8 mmol/L 3.5 - 5.3 [facility] 300 Work Phone: Protein [Mass/Vol] 6.9 g/dL 6.4 - 8.2 [facility] 300 Work Phone: Sodium [Moles/Vol] 136 mmol/L 136 - 145 [facility] 300 Work Phone: Urea nitrogen [Mass/Vol] 48 mg/dL above high threshold 6 - 23 [facility] 300 Work Phone: MRA Head without Contraston 03-28-2023 MRA Head vessels WO contrast Normal [facility] 300 Work Phone: MRA Neck without Contraston 03-28-2023 MRA Neck vessels WO contrast Normal [facility] 300 Work Phone: MRI Brain without Contraston 03-28-2023 MR Brain WO contrast Normal [facility] 300 Work Phone: NR MRA HEAD W/O Con 03-28-20 23 NR MRA HEAD W/O C Patient Name: KITTY VERGARA STUDY: MRI BRAIN WO; MRA HEAD W/O C; MRA NECK WO.C; 03/28/2023 11:37 am INDICATION: BAINS/blurred R vision ; BAINS/blurre R vision . COMPARISON: None. ACCESSION NUMBER(S): [id number]; [id number]; [id number] ORDERING CLINICIAN: GOPI VERGARA TECHNIQUE: The brain was studied in the sagittal axial and coronal planes utilizing FLAIR, T1 and T2 weighted images FINDINGS: There is slight prominence of the cortical sulci and sylvian fissures. There is mild ventricular dilatation. There are confluent regions of abnormal signal in the cerebral hemispheric white matter bilaterally in a subependymal and subcortical distribution.. These are compatible with minimal small vessel ischemic changes. These nonspecific findings could also be produced by a demyelinating or post inflammatory process. The visualized skull base paranasal sinuses and orbital structures are unremarkable. Diffusion weighted images and associated ADC maps of the brain were unremarkable. There is no evidence of diffusion restriction to suggest the presence of acute infarction. Gradient echo T2 weighted images fail to demonstrate hemosiderin deposition or other evidence of hemorrhage. Magnetic resonance angiography Axial 3-D [id number] acquisition was performed and multiplanar reconstructions were made. MRA at the carotid bifurcations reveals normal anatomic configuration. The vertebral arteries are normal. There is loss of flow related signal at the bifurcations likely partially due to flow related artifact; however, mild narrowing at the proximal internal carotid arteries is not excluded.. Magnetic resonance angiography of the intracranial vessels was performed utilizing 3-D ivcg-jl-xvnqgu imaging with 3-D reconstruction. The examination fails to reveal the presence of focal narrowing or branch occlusion. There is no evidence of aneurysm or vascular malformation. IMPRESSION * There is no evidence of mass, cerebral infarction or hemorrhage. THIS EXAMINATION WAS INTERPRETED AT [facility] [place] Electronically signed by: JONATHON MEDINA MD [facility] NR MRA NECK WO.Con 3 NR MRA NECK WO.C Patient Name: KITTY VERGARA STUDY: MRI BRAIN WO; MRA HEAD W/O C; MRA NECK WO.C; 03/28/2023 11:37 am INDICATION: BAINS/blurred R vision ; BAINS/blurre R vision . COMPARISON: None. ACCESSION NUMBER(S): [id number]; [id number]; [id number] ORDERING CLINICIAN: GOPI VERGARA TECHNIQUE: The brain was studied in the sagittal axial and coronal planes utilizing FLAIR, T1 and T2 weighted images FINDINGS: There is slight prominence of the cortical sulci and sylvian fissures. There is mild ventricular dilatation. There are confluent regions of abnormal signal in the cerebral hemispheric white matter bilaterally in a subependymal and subcortical distribution.. These are compatible with minimal small vessel ischemic changes. These nonspecific findings could also be produced by a demyelinating or post inflammatory process. The visualized skull base paranasal sinuses and orbital structures are unremarkable. Diffusion weighted images and associated ADC maps of the brain were unremarkable. There is no evidence of diffusion restriction to suggest the presence of acute infarction. Gradient echo T2 weighted images fail to demonstrate hemosiderin deposition or other evidence of hemorrhage. Magnetic resonance angiography Axial 3-D xgpx-mg-jeovvq acquisition was performed and multiplanar reconstructions were made. MRA at the carotid bifurcations reveals normal anatomic configuration. The vertebral arteries are normal. There is loss of flow related signal at the bifurcations likely partially due to flow related artifact; however, mild narrowing at the proximal internal carotid arteries is not excluded.. Magnetic resonance angiography of the intracranial vessels was performed utilizing 3-D odyz-ug-ecmzfv imaging with 3-D reconstruction. The examination fails to reveal the presence of focal narrowing or branch occlusion. There is no evidence of aneurysm or vascular malformation. IMPRESSION * There is no evidence of mass, cerebral infarction or hemorrhage. THIS EXAMINATION WAS INTERPRETED AT [facility] [place] Electronically signed by: JONATHON MEDINA MD [facility] NR MRI BRAIN WOon 03-28-2023 NR MRI BRAIN WO Patient Name: KITTY VERGARA STUDY: MRI BRAIN WO; MRA HEAD W/O C; MRA NECK WO.C; 03/28/2023 11:37 am INDICATION: BAINS/blurred R vision ; BAINS/blurre R vision . COMPARISON: None. ACCESSION NUMBER(S): [id number]; [id number]; [id number] ORDERING CLINICIAN: GOPI VERGARA TECHNIQUE: The brain was studied in the sagittal axial and coronal planes utilizing FLAIR, T1 and T2 weighted images FINDINGS: There is slight prominence of the cortical sulci and sylvian fissures. There is mild ventricular dilatation. There are confluent regions of abnormal signal in the cerebral hemispheric white matter bilaterally in a subependymal and subcortical distribution.. These are compatible with minimal small vessel ischemic changes. These nonspecific findings could also be produced by a demyelinating or post inflammatory process. The visualized skull base paranasal sinuses and orbital structures are unremarkable. Diffusion weighted images and associated ADC maps of the brain were unremarkable. There is no evidence of diffusion restriction to suggest the presence of acute infarction. Gradient echo T2 weighted images fail to demonstrate hemosiderin deposition or other evidence of hemorrhage. Magnetic resonance angiography Axial 3-D dodv-zt-pldmbx acquisition was performed and multiplanar reconstructions were made. MRA at the carotid bifurcations reveals normal anatomic configuration. The vertebral arteries are normal. There is loss of flow related signal at the bifurcations likely partially due to flow related artifact; however, mild narrowing at the proximal internal carotid arteries is not excluded.. Magnetic resonance angiography of the intracranial vessels was performed utilizing 3-D gwtl-wj-wttyys imaging with 3-D reconstruction. The examination fails to reveal the presence of focal narrowing or branch occlusion. There is no evidence of aneurysm or vascular malformation. IMPRESSION * There is no evidence of mass, cerebral infarction or hemorrhage. THIS EXAMINATION WAS INTERPRETED AT [facility] [place] Electronically signed by: JONATHON MEDINA MD [facility] Narrative Note - Outpatient- ED for bubble study and definityon 03-28-2023 Narrative Note - Outpatient-ED for bubble study and definity Narrative Note: Discipline/ClinicED for bubble study and definity Description Called to ED to administer bubbles and to give definity. Patient has a 20g IV in the RAC. IV flushed easily. Administered bubble test times 2 and then gave 1ml of definity as nanotechnology technician instructed. Once test completed IV flushed with NS and left in place. Patient tolerated without complaint. Electronic Signatures: Maya Gupta (AYAAN) (Signed 28-Mar-2023 11:58) Authored: Narrative Note - OP Last Updated: 28-Mar-2023 11:58 by Maya Gupta) [facility] No Panel Informationon 03-28 37 {mL/min/1.73m2} Abnormal >90 [facility] 300 Work Phone: Comment on above: CALCULATIONS OF APOORVA MATED GFR ARE PERFORMED USING THE 2020 CKD-EPI STUDY REFIT EQUATION WITHOUT THE RACE VARIABLE FOR THE IDMS-TRACEABLE CREATININE METHODS.https://jasn.asnjournals.org/content/early// N.9663670305 Provider Note - ED v3on Provider Note - ED v3 Provider Note: Results/Vital Signs: Pediatric Clinical Scoring (YANI) is no recent YANI charted on this account Chart Review: ED NOTES ED NOTES: Chief complaint: #1 headache #2 blurred vision History of chief complaint: Patient presents to the emergency department with the above-mentioned symptoms. He states that he was driving his car at approximately 1 PM yesterday when he began having blurred vision in his right eye as well as a posterior right-sided headache. The patient states that he was out running errands when this occurred and upon returning home decided to take a nap and woke up at approximately 4 PM with complete resolution of his symptoms. The patient presents now asymptomatic. He states that his wanted him to be evaluated yesterday but he refused to come in to be evaluated. Allergies: Reviewed Home medications: Reviewed Medical history: Reviewed Surgical history: Reviewed Family history: Reviewed Social history: Reviewed Review of systems: I have reviewed constitutional HEENT cardiovascular pulmonary gastrointestinal genitourinary dermatologic psychiatric musculoskeletal neurologic and except where mentioned above all other systems are noted to be unremarkable. Nursing notes have been reviewed Physical examination: General appearance: Patient is sitting up in bed and appears well. Not toxic in appearance HEENT: Normocephalic and atraumatic. Pupils are equal and reactive to light. Neck: Trachea is midline. No JVD. Cardiac: Regular sinus rate and rhythm. Grade 4/6 systolic ejection murmur best heard at the second intercostal space just lateral to the sternum to the left chest. Lungs: Clear to auscultation bilaterally without wheezing Abdomen: Soft, nontender, bowel sounds are normal. Musculoskeletal: No gross bony deformity identified Neurologic: Moving all 4 extremities independently. Cranial nerves II through XII are formally tested by myself noted to be grossly intact. Dermatologic: No jaundice or pallor Psychiatric: Awake, alert, and oriented Clinical course: Twelve-lead EKG was interpreted by myself and this was noted to contribute directly to patient care. Study reveals a normal sinus rhythm at 61 bpm, normal axis, early R wave progression, no acute ischemic changes, ST segment depression in the inferior and lateral leads, no S1 Q3 T3 is identified Medical decision making: Differential considerations would include, but not limited to, TIA versus ocular migraine. Patient has an NIH stroke scale of 0 and remained asymptomatic during his ER stay. Again, he has not had symptoms since yesterday therefore he is not a candidate for thrombolysis. I discussed the patient's results with neurology on-call, Dr. Gutiérrez, who agrees that the patient is appropriate for discharge and recommended the patient be started on atorvastatin 40 mg daily as well as Plavix 75 mg daily. I explained that the patient is already taking a low-dose aspirin daily, and she wishes for the patient to continue both the Plavix and the aspirin for 21 days and then discontinue the aspirin. I did convey this to the patient and his . Assessment: #1 blurred vision-resolved #2 headache-resolved Plan: I spoke to the patient's private physician/primary provider, and explained the patient's symptomatology, work-up here, and discharge plan. He wishes to see the patient in the office and I instructed the patient to call today to schedule an appointment. Return for any other ongoing symptoms HISTORY OF PRESENTING ILLNESS KITTY is a 82 year old Male and was seen by me at 28-Mar-2023 09:22 for a chief complaint of headache (Pt had a headache and right eye blurry vision yesterday. Pt woke up today and feels fine but his suggested he come to ED to be evaluated. Pt has no symptoms at this time.)(1). Triage Information: Most recent Vital Sign Value Date Temp (F): 97.3 03-28-2023 09:26 Temp (C): 36.2 03-28-2023 09:26 Heart Rate (beats/min): 70 03-28-2023 09:26 Respirations (breaths/min): 18 03-28-2023 09:26 SpO2 (%): 98 03-28-2023 09:26 BP Systolic (mm Hg): 157 03-28-2023 09:26 BP Diastolic (mm Hg): 77 03-28-2023 09:26 PAST MEDICAL HISTORY ALLERGIES/INTOLERANCES: Allergy Allergen: statins Type: Drug Category Reaction: Throat Swelling HEALTH HISTORY: Medical History Name:Diabetes mellitus Code:E11.9 Name:Gout Code:M10.9 Name:Hypertension Code:I10 Name:GERD (gastroesophageal reflux disease) Code:K21.9 Name:BPH (benign prostatic hyperplasia) Code:N40.0 OUTPATIENT MEDICATIONS: Home Medications Review Status for Reconciliation: N/A Med Status: Patient Currently Takes Medications Drug Name: allopurinol 300 mg oral tablet Instructions: 1 tab(s) orally once a day Drug Name: aspirin 81 mg oral tablet, dispersible Instructions: 1 tab(s) orally once a day Drug Name: gabapen (more content not included)... Normal [facility] TROPONIN I, HIGH SENSITIVITY on 03-28-2023 TROPONIN I, HIGH SENSITIVITY 12 ng/L Normal 0 - 20 [facility] Comment on above: Result Comment: . Less than 99th percentile of normal range cutoff- Female and children under 18 years old <14 ng/L; Male <21 ng/L: Negative Repeat testing should be performed if clinically indicated. . Female and children under 18 years old 14-50 ng/L; Male 21-50 ng/L: Consistent with possible cardiac damage and possible increased clinical risk. Serial measurements may help to assess extent of myocardial damage. . >50 ng/L: Consistent with cardiac damage, increased clinical risk and myocardial infarction. Serial measurements may help assess extent of myocardial damage. . NOTE: Children less than 1 year old may have higher baseline troponin levels and results should be interpreted in conjunction with the overall clinical context. . NOTE: Troponin I testing is performed using a different testing methodology at [facility] than at other [facility]. Direct result comparisons should only be made within the same method. Performed By: #### T [facility] #### [id number] [place] [address] TROPONIN I, HIGH SENSITIVITY 14 ng/L Normal 0 - 20 [facility] Comment on above: Result Comment: . Less than 99th percentile of normal range cutoff- Female and children under 18 years old <14 ng/L; Male <21 ng/L: Negative Repeat testing should be performed if clinically indicated. . Female and children under 18 years old 14-50 ng/L; Male 21-50 ng/L: Consistent with possible cardiac damage and possible increased clinical risk. Serial measurements may help to assess extent of myocardial damage. . >50 ng/L: Consistent with cardiac damage, increased clinical risk and myocardial infarction. Serial measurements may help assess extent of myocardial damage. . NOTE: Children less than 1 year old may have higher baseline troponin levels and results should be interpreted in conjunction with the overall clinical context. . NOTE: Troponin I testing is performed using a different testing methodology at [facility] than at other [facility]. Direct result comparisons should only be made within the same method. Performed By: #### T [facility] #### [facility] [address] [place] [address] Tropinin I.cardiac panel High sensitivity method 12 ng/L 0 - 20 [facility] 300 Work Phone: Comment on above: .Less than 99th perc entile of normal range cutoff-Female and children under 18 years old <14 ng/L; Male <21 ng/L: NegativeRepeat testing should be performed if clinically indicated. .Female and children under 18 years old 14-50 ng/L; Male 21-50 ng/L:Consistent with possible cardiac damage and possible increased clinical risk. Serial measurements may help to assess extent of myocardial damage. .>50 ng/L: Consistent with cardiac damage, increased clinical risk andmyocardial infarction. Serial measurements may help assess extent of myocardial damage. . NOTE: Children less than 1 year old may have higher baseline troponin levels and results should be interpreted in conjunction with the overall clinical context. .NOTE: Troponin I testing is performed using a different testing methodology at [facility] than at other [facility]. Direct result comparisons should only be made within the same method. Tropinin I.cardiac panel High sensitivity method 14 ng/L 0 - 20 [facility] 300 Work Phone: Comment on above: .Less than 99th perc entile of normal range cutoff-Female and children under 18 years old <14 ng/L; Male <21 ng/L: NegativeRepeat testing should be performed if clinically indicated. .Female and children under 18 years old 14-50 ng/L; Male 21-50 ng/L:Consistent with possible cardiac damage and possible increased clinical risk. Serial measurements may help to assess extent of myocardial damage. .>50 ng/L: Consistent with cardiac damage, increased clinical risk andmyocardial infarction. Serial measurements may help assess extent of myocardial damage. . NOTE: Children less than 1 year old may have higher baseline troponin levels and results should be interpreted in conjunction with the overall clinical context. .NOTE: Troponin I testing is performed using a different testing methodology at [facility] than at other [facility]. Direct result comparisons should only be made within the same method. Triage - EDon 03-28-2023 Triage - ED Chart Review: ARRIVAL INFORMATION Mode of Arrival: private vehicle CHIEF COMPLAINT KITTY VERGARA is a Male patient with a chief complaint of headache (Pt had a headache and right eye blurry vision yesterday. Pt woke up today and feels fine but his suggested he come to ED to be evaluated. Pt has no symptoms at this time.). Onset of the Complaint: 27-Mar-2023 Triage Date/Time: 28-Mar-2023 09:26 ADRIENNE: 3 Vital Signs: Temperature: 97.3F ( 36.2C) taken temporal Blood Pressure: 157/77 Mean: Heart Rate: 70 Respiratory Rate: 18 Pulse Oximetry: 98% on room air, no respiratory support. Height: 5 feet 10.50 inches. 179.0 CM Weight: 235.8 pounds. Calculated 107.0 kg. (stated) Calculated BMI (kg/m2): 33.394 Calculated BSA (m2) 2.31 Tamera Coma Scale: Best Eye Response: (E4) spontaneous Best Motor Response: (M6) obeys commands Best Verbal Response: (V5) oriented Tamera Score: 15 Allergies: yes Patient has homicidal thoughts: no Last Known Well: unknown Risk Screens Suicide Risk Screen In the Past Month: Have you wished you were or wished you could go to sleep and not wake up no In the Past Month: Have you had any actual thoughts of killing yourself no In Your Lifetime: Have you ever done anything, started to do anything, or prepared to do anything to end your life no Martines Fall Scale Screening Has the patient fallen before (or is the patient in the ED as a result of a fall) has not had a fall Does the patient have an impaired gait does not have impaired gait Is the patient cognitively impaired not cognitively impaired Interventions: Martines Fall Interventions: LOW INTERVENTIONS: *patient oriented to surroundings and call system, * patient/family falls education completed and documented, *patients fall status communicated during bedside handoff, *whiteboard updated, *mode of toileting discussed with patient, *bed in low position with brakes locked, *call light in reach, * non-skid footwear TRAVEL HISTORY Travel History Coronavirus Screening: no exposure or symptoms Travel Exposure History: NO travel to International locations in the past 30 days PAIN Pain Scale Used: RICKEY Past Medical History: Past Medical History Reviewedyes Diabetes: Past Medical History, Active HTN: Past Medical History, Active Electronic Signatures: Nestor Michaud (EMT-P) (Signed 28-Mar-2023 09:30) Authored: Quick Triage, Risk Screens, Pain, Travel History, Chart Review, Scores, Past Medical History Maryann Valerio (RN) (Signed 28-Mar-2023 10:06) Authored: Quick Triage, Chart Review Last Updated: 28-Mar-2023 10:06 by Maryann Valeiro (RN) [facility] BILATERAL SHOULDER, CMPLT, M IN 2 VIEWSon 03-22-2023 BILATERAL SHOULDER, CMPLT, MIN 2 VIEWS Patient Name: KITTY VERGARA STUDY: BILATERAL SHOULDER, CMPLT, MIN 2 VIEWS; ; 03/22/2023 2:52 pm INDICATION: pain M25.519: Shoulder pain. COMPARISON: None. ACCESSION NUMBER(S): [id number] ORDERING CLINICIAN: KAPIL OROZCO FINDINGS: No acute fracture or glenohumeral dislocation seen bilaterally. Djqm-vw-xowwwwnk left and moderate to severe right acromioclavicular osteoarthrosis. Mild to moderate left glenohumeral osteoarthrosis and mild right glenohumeral osteoarthrosis. IMPRESSION: Degenerative changes of the bilateral shoulders without acute osseous abnormality detected. Electronically signed by: CATHERINE LORA MD [facility] Initial Visit (Orthopaedic S urgery)on 03-22-2023 Initial Visit (Orthopaedic Surgery) Orders Shoulder pain Administered: Triamcinolone Acetonide 40 MG/ML Injection Suspension (Kenalog) Patient Discussion/Summary Assessment: Bilateral glenohumeral joint arthritis. His right is clinically much worse than his left. Plan: - Reviewed Xray findings with patient - Reviewed Ultrasound findings with patient - Voltaren Gel OTC information given, use as directed - PT Script Given - NSAIDs brgd-ixq-sdtahvw as needed - Bracing -deferred - MRI-deferred -Kenalog 40 mg were injected into the right glenohumeral space. The patient had near complete resolution of his glenohumeral joint pain. He had an excellent lidocaine suppression test. - F/U 3 to 4 weeks. At that point we could consider injection of the contralateral shoulder. We will reassess the effects of his physical therapy. 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 He has known osteoarthritis. He is retired. He is zzjt-zswk-wnlnhrkq. His shoulder pain has worsened recently and is beginning to interfere with his activities of daily living. The right shoulder was particularly bad a few days ago although it has recovered somewhat. His right shoulder is much worse than his left clinically. Active Problems Problems BPH (benign prostatic hyperplasia) (600.00) (N40.0) Chronic GERD (530.81) (K21.9) Chronic renal impairment, stage 3b (585.3) (N18.32) Controlled type 2 diabetes mellitus without complication, without long-term current use of insulin (250.00) (E11.9) Controlled type 2 diabetes mellitus without complication, without long-term current use of insulin Dry skin (701.1) (L85.3) Edema of both legs (782.3) (R60.0) Gout (274.9) (M10.9) Headache (784.0) (R51.9) Hyperlipidemia (272.4) (E78.5) Hypertension (401.9) (I10) Medicare annual wellness visit, subsequent (V70.0) (Z00.00) Neuropathy, peripheral, autonomic, idiopathic (337.00) (G90.09) Nocturia (788.43) (R35.1) Nocturnal hypoxemia (327.24) (G47.34) Obesity (278.00) (E66.9) 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 Bhakta Family History Mother Family history of acute myocardial infarction (V17.3) (Z82.49) Family history of malignant neoplasm (V16.9) (Z80.9) Child Family history of acute myocardial infarction (V17.3) (Z82.49) Family history of malignant neoplasm (V16.9) (Z80.9) Family history of Primary malignant neoplasm of brain Other Family history of type 2 diabetes mellitus (V18.0) (Z83.3) Family history of Primary malignant neoplasm of female breast Social History Problems Alcohol consumption one to two days per week (V49.89) (Z78.9) Current smokeless tobacco user Does not use illicit drugs (V49.89) (Z78.9) Does not use tobacco (V49.89) (Z78.9) Patient has healthcare proxy and living will (V49.89) (Z78.9) Allergies Statins Recorded By: Srikanth Cesar; 09/26/2019 1:00:26 PM Additional reactions - Tongue swelling Current Meds Medication NameInstruction Allopurinol 300 MG Oral TabletTAKE 1 TABLET DAILY. Aspirin 81 MG Oral Tablet Delayed ReleaseTAKE 1 TABLET DAILY DIRECTED. Blood Glucose Monitor System w/Device KitUSE TO CHECK BLOOD SUGAR TWICE DAILY Gabapentin 100 MG Oral CapsuleTAKE 2 CAPSULE Every morning AND 2 CAPSULES EVERY EVENING glipiZIDE 5 MG Oral TabletTAKE 1 TABLET TWICE DAILY. Glucose Meter Test In Vitro StripUSE TO TEST BLOOD SUGAR ONCE DAILY, DX E11.9 # 100 LancetsTEST TWICE DAILY dx E11.9 Losartan Potassium-HCTZ 100-25 MG Oral TabletTAKE 1 TABLET ONCE DAILY. metFORMIN HCl ER 500 MG Oral Tablet Extended Release 24 HourTAKE 2 TABLET Daily Triamcinolone Acetonide 0.1 % External CreamAPPLY 2-3 TIMES DAILY TO AFFECTED AREA(S). Triamcinolone Acetonide 0.5 % External OintmentAPPLY SPARINGLY TO AFFECTED AREA(S) TWICE DAILY Vitals Vital Signs Recorded: 22Mar2023 03:11PM Knkdwbucdfk07.1 F Wefqnh555 lb BMI Fcpvlszvkk22.09 kg/m2 BSA Calculated2.27 Physical Exam Right shoulder: Skin healthy to gross inspection No ecchymosis, no edema, no gross atrophy Minimal tenderness to palpation over acromioclavicular joint Mild tenderness to palpation over biceps tendon No tenderness to palpation over the cervical sp (more content not included)... Normal [facility] No Panel Informationon 03-22 Please click on the link to view the study images Normal [facility] 300 Work Phone: Radiologyon 03-22-2023 XR Shoulder - bilateral 2 Views Please click on the link to view the study images Normal [facility] 300 Work Phone: XR Shoulder - bilateral 2 Views Normal [facility] 300 Work Phone: No Panel Informationon 12-05 IMPRESSION: No acute pathology. Degenerative changes as discussed Molder Feeder: NATALIE Transcribe Date/Time: Dec 05 2022 7:57A Dictated by : LESLIE CHRISTINE DO This examination was interpreted and the report reviewed and electronically signed by: LESLIE CHRISTINE DO on Dec 05 2022 8:01AM [facility] No Panel InformationOrdered By: [facility] Provider on 12-05-2022 [facility] XR Cervical spine AP and Lat eral and obliqueon 12-05-2022 IMPRESSION: Negative exam. Degenerative changes as discussed Molder Feeder: NATALIE Transcribe Date/Time: Dec 05 2022 8:01A Dictated by : LESLIE CHRISTINE DO This examination was interpreted and the report reviewed and electronically signed by: LESLIE CHRISTINE DO on Dec 05 2022 8:02AM [facility] * * *Final Report* * * DATE OF EXAM: Dec 04 2022 3:27PM JAMES [id number] - XR CERVICAL 4V AP/LAT/OBL / PROCEDURE REASON: M50.30-DDD (degenerative disc disease), cervical * * * * Physician Interpretation * * * * Cervical spine: HISTORY: Indication: DDD (degenerative disc disease), cervical pain pain TECHNIQUE: Views obtained: XR CERVICAL 4V AP/LAT/OBL Comparison: None. RESULT: Findings: Mild narrowing of the facet joints. Moderate narrowing of the C5-6 disc space and severe narrowing of the C6-7 disc space. Spine alignment: The vertebra are in good alignment. No fractures or dislocations are seen. [facility] Provider, [facility] - 12/05/2022 * * *Final Report* * * DATE OF EXAM: Dec 04 2022 3:27PM JAMES [id number] - XR CERVICAL 4V AP/LAT/OBL / PROCEDURE REASON: M50.30-DDD (degenerative disc disease), cervical * * * * Physician Interpretation * * * * Cervical spine: HISTORY: Indication: DDD (degenerative disc disease), cervical pain pain TECHNIQUE: Views obtained: XR CERVICAL 4V AP/LAT/OBL Comparison: None. RESULT: Findings: Mild narrowing of the facet joints. Moderate narrowing of the C5-6 disc space and severe narrowing of the C6-7 disc space. Spine alignment: The vertebra are in good alignment. No fractures or dislocations are seen. IMPRESSION IMPRESSION: Negative exam. Degenerative changes as discussed Molder Feeder: NATALIE Transcribe Date/Time: Dec 05 2022 8:01A Dictated by : LESLIE CHRISTINE DO This examination was interpreted and the report reviewed and electronically signed by: LESLIE CHRISTINE DO on Dec 05 2022 8:02AM [facility] XR Shoulder - left 3 Viewson 12-05-2022 * * *Final Report* * * DATE OF EXAM: Dec 04 2022 3:25PM JAMES [id number] - XR SHLDR >/=3V AP/AMIRA AP/OTHR LT / PROCEDURE REASON: multiple diagnoses * * * * Physician Interpretation * * * * EXAM(s): XR SHLDR >/=3V AP/AMIRA AP/OTHR RT, XR SHLDR >/=3V AP/AMRIA AP/OTHR LT EXAM DATE/TIME: 12/04/2022 3:26 PM HISTORY: 82 years old Clinical information: Bilateral shoulder pain, unspecified chronicity Bilateral shoulder pain, unspecified chronicity pain Bilateral shoulder pain TECHNIQUE: Images: XR SHLDR >/=3V AP/AMIRA AP/OTHR RT, XR SHLDR >/=3V AP/AMIRA AP/OTHR LT Comparison: None. RESULT: Findings: Right : Severe narrowing of the AC joint is noted.. Moderate narrowing of the glenohumeral joint.The acromial humeral interval is unremarkable.. Mild bony demineralization. Moderate degenerative changes throughout the spine Moderate spurring along the inferomedial aspect of the humeral head. Left :No fractures or dislocations are seen. Marked narrowing of the AC joint.. Moderate narrowing of the glenohumeral joint. Moderate spurring along the inferior medial aspect of the humeral headThe acromial humeral interval appears decreased. The bone density is unremarkable. [facility] Provider, [facility] - 12/05/2022 * * *Final Report* * * DATE OF EXAM: Dec 04 2022 3:25PM JAMES [id number] - XR SHLDR >/=3V AP/AMIRA AP/OTHR LT / PROCEDURE REASON: multiple diagnoses * * * * Physician Interpretation * * * * EXAM(s): XR SHLDR >/=3V AP/AMIRA AP/OTHR RT, XR SHLDR >/=3V AP/AMIRA AP/OTHR LT EXAM DATE/TIME: 12/04/2022 3:26 PM HISTORY: 82 years old Clinical information: Bilateral shoulder pain, unspecified chronicity Bilateral shoulder pain, unspecified chronicity pain Bilateral shoulder pain TECHNIQUE: Images: XR SHLDR >/=3V AP/AMIRA AP/OTHR RT, XR SHLDR >/=3V AP/AMIRA AP/OTHR LT Comparison: None. RESULT: Findings: Right : Severe narrowing of the AC joint is noted.. Moderate narrowing of the glenohumeral joint.The acromial humeral interval is unremarkable.. Mild bony demineralization. Moderate degenerative changes throughout the spine Moderate spurring along the inferomedial aspect of the humeral head. Left :No fractures or dislocations are seen. Marked narrowing of the AC joint.. Moderate narrowing of the glenohumeral joint. Moderate spurring along the inferior medial aspect of the humeral headThe acromial humeral interval appears decreased. The bone density is unremarkable. IMPRESSION IMPRESSION: No acute pathology. Degenerative changes as discussed Molder Feeder: NATALIE Transcribe Date/Time: Dec 05 2022 7:57A Dictated by : LESLIE CHRISTINE DO This examination was interpreted and the report reviewed and electronically signed by: LESLIE CHRISTINE DO on Dec 05 2022 8:01AM EST [facility] XR Shoulder - right 3 Viewso n 12-05-2022 * * *Final Report* * * DATE OF EXAM: Dec 04 2022 3:26PM MDO [id number] - XR SHLDR >/=3V AP/AMIRA AP/OTHR RT / PROCEDURE REASON: multiple diagnoses * * * * Physician Interpretation * * * * EXAM(s): XR SHLDR >/=3V AP/AMIRA AP/OTHR RT, XR SHLDR >/=3V AP/AMIRA AP/OTHR LT EXAM DATE/TIME: 12/04/2022 3:26 PM HISTORY: 82 years old Clinical information: Bilateral shoulder pain, unspecified chronicity Bilateral shoulder pain, unspecified chronicity pain Bilateral shoulder pain TECHNIQUE: Images: XR SHLDR >/=3V AP/AMIRA AP/OTHR RT, XR SHLDR >/=3V AP/AMIRA AP/OTHR LT Comparison: None. RESULT: Findings: Right : Severe narrowing of the AC joint is noted.. Moderate narrowing of the glenohumeral joint.The acromial humeral interval is unremarkable.. Mild bony demineralization. Moderate degenerative changes throughout the spine Moderate spurring along the inferomedial aspect of the humeral head. Left :No fractures or dislocations are seen. Marked narrowing of the AC joint.. Moderate narrowing of the glenohumeral joint. Moderate spurring along the inferior medial aspect of the humeral headThe acromial humeral interval appears decreased. The bone density is unremarkable. [facility] Provider, [facility] - 12/05/2022 * * *Final Report* * * DATE OF EXAM: Dec 04 2022 3:26PM O [id number] - XR SHLDR >/=3V AP/AMIRA AP/OTHR RT / PROCEDURE REASON: multiple diagnoses * * * * Physician Interpretation * * * * EXAM(s): XR SHLDR >/=3V AP/AMIRA AP/OTHR RT, XR SHLDR >/=3V AP/AMIRA AP/OTHR LT EXAM DATE/TIME: 12/04/2022 3:26 PM HISTORY: 82 years old Clinical information: Bilateral shoulder pain, unspecified chronicity Bilateral shoulder pain, unspecified chronicity pain Bilateral shoulder pain TECHNIQUE: Images: XR SHLDR >/=3V AP/AMIRA AP/OTHR RT, XR SHLDR >/=3V AP/AMIRA AP/OTHR LT Comparison: None. RESULT: Findings: Right : Severe narrowing of the AC joint is noted.. Moderate narrowing of the glenohumeral joint.The acromial humeral interval is unremarkable.. Mild bony demineralization. Moderate degenerative changes throughout the spine Moderate spurring along the inferomedial aspect of the humeral head. Left :No fractures or dislocations are seen. Marked narrowing of the AC joint.. Moderate narrowing of the glenohumeral joint. Moderate spurring along the inferior medial aspect of the humeral headThe acromial humeral interval appears decreased. The bone density is unremarkable. IMPRESSION IMPRESSION: No acute pathology. Degenerative changes as discussed Molder Feeder: NATALIE Transcribe Date/Time: Dec 05 2022 7:57A Dictated by : LESLIE CHRISTINE DO This examination was interpreted and the report reviewed and electronically signed by: LESLIE CHRISTINE DO on Dec 05 2022 8:01AM [facility] ALLIED HEALTHon 12-04-2022 ALLIED HEALTH HNO ID: [id number] Author: Cuca Ambrose, RT(R) Service: ? Author Type: Logging Crew Foreman Type: Allied Health Filed: 12/04/2022 3:23 PM Note Text: Radiology Service Progress Note PATIENT NAME: Kitty Vergara DATE OF SERVICE: December 04, 2022 TIME: 3:22 PM PATIENT IDENTITY VERIFICATION COMPLETED USING TWO (2) IDENTIFIERS: Name and Date of confirmed by patient verbally. FALL SCREENING: Has the patient had 2 falls in the last year or 1 fall with injury or currently using an Ambulatory Assistive Device (Walker, Cane, Wheelchair, Crutches, etc.)? No PATIENT GENDER DATA: Male PATIENT RELEVANT IMPLANT DATA REVIEWED: Not Applicable RADIOLOGY DEPARTMENT: General X-ray: Exam(s) Completed: Spine X-Ray(s): Cervical AP / LAT / OBL Upper Extremity X-Ray(s): Shoulder, AP / TRUE AP / AXILLARY bilateral PERIPHERAL IV DATA: Not applicable SIGNED BY: RT Jeremy(R) December 04, 2022 3:22 PM [facility] XR CERV OTHER 4V AP/LAT/OBLo n 12-04-2022 [facility] XR CERVICAL 4V AP/LAT/OBLon 12-04-2022 XR CERVICAL 4V AP/LAT/OBL * * *Final Report* * * DATE OF EXAM: Dec 04 2022 3:27PM JAMES [id number] - XR CERVICAL 4V AP/LAT/OBL / PROCEDURE REASON: M50.30-DDD (degenerative disc disease), cervical * * * * Physician Interpretation * * * * Cervical spine: HISTORY: Indication: DDD (degenerative disc disease), cervical pain pain TECHNIQUE: Views obtained: XR CERVICAL 4V AP/LAT/OBL Comparison: None. RESULT: Findings: Mild narrowing of the facet joints. Moderate narrowing of the C5-6 disc space and severe narrowing of the C6-7 disc space. Spine alignment: The vertebra are in good alignment. No fractures or dislocations are seen. IMPRESSION: Negative exam. Degenerative changes as discussed Molder Feeder: NATALIE Transcribe Date/Time: Dec 05 2022 8:01A Dictated by : LESLIE CHRISTINE DO This examination was interpreted and the report reviewed and electronically signed by: LESLIE CHRISTINE DO on Dec 05 2022 8:02AM EST [id number] [facility] XR Cervical spine AP and Lat eral and obliqueon 12-04-2022 Radiology Study observation (narrative) [facility] XR SHLDR >/=3V AP/AMIRA AP/OTH R LTon 12-04-2022 XR SHLDR >/=3V AP/AMIRA AP/OTHR LT * * *Final Report* * * DATE OF EXAM: Dec 04 2022 3:25PM JAMES [id number] - XR SHLDR >/=3V AP/AMIRA AP/OTHR LT / PROCEDURE REASON: multiple diagnoses * * * * Physician Interpretation * * * * EXAM(s): XR SHLDR >/=3V AP/AMIRA AP/OTHR RT, XR SHLDR >/=3V AP/AMIRA AP/OTHR LT EXAM DATE/TIME: 12/04/2022 3:26 PM HISTORY: 82 years old Clinical information: Bilateral shoulder pain, unspecified chronicity Bilateral shoulder pain, unspecified chronicity pain Bilateral shoulder pain TECHNIQUE: Images: XR SHLDR >/=3V AP/AMIRA AP/OTHR RT, XR SHLDR >/=3V AP/AMIRA AP/OTHR LT Comparison: None. RESULT: Findings: Right : Severe narrowing of the AC joint is noted.. Moderate narrowing of the glenohumeral joint.The acromial humeral interval is unremarkable.. Mild bony demineralization. Moderate degenerative changes throughout the spine Moderate spurring along the inferomedial aspect of the humeral head. Left :No fractures or dislocations are seen. Marked narrowing of the AC joint.. Moderate narrowing of the glenohumeral joint. Moderate spurring along the inferior medial aspect of the humeral headThe acromial humeral interval appears decreased. The bone density is unremarkable. IMPRESSION: No acute pathology. Degenerative changes as discussed Molder Feeder: [facility] Transcribe Date/Time: Dec 05 2022 7:57A Dictated by : LESLIE CHRISTINE DO This examination was interpreted and the report reviewed and electronically signed by: LESLIE CHRISTINE DO on Dec 05 2022 8:01AM EST [id number] [facility] XR SHLDR >/=3V AP/AMIRA AP/OTH R RTon 12-04-2022 XR SHLDR >/=3V AP/AMIRA AP/OTHR RT * * *Final Report* * * DATE OF EXAM: Dec 04 2022 3:26PM JAMES [id number] - XR SHLDR >/=3V AP/AMIRA AP/OTHR RT / PROCEDURE REASON: multiple diagnoses * * * * Physician Interpretation * * * * EXAM(s): XR SHLDR >/=3V AP/AMIRA AP/OTHR RT, XR SHLDR >/=3V AP/AMIAR AP/OTHR LT EXAM DATE/TIME: 12/04/2022 3:26 PM HISTORY: 82 years old Clinical information: Bilateral shoulder pain, unspecified chronicity Bilateral shoulder pain, unspecified chronicity pain Bilateral shoulder pain TECHNIQUE: Images: XR SHLDR >/=3V AP/AMIRA AP/OTHR RT, XR SHLDR >/=3V AP/AMIRA AP/OTHR LT Comparison: None. RESULT: Findings: Right : Severe narrowing of the AC joint is noted.. Moderate narrowing of the glenohumeral joint.The acromial humeral interval is unremarkable.. Mild bony demineralization. Moderate degenerative changes throughout the spine Moderate spurring along the inferomedial aspect of the humeral head. Left :No fractures or dislocations are seen. Marked narrowing of the AC joint.. Moderate narrowing of the glenohumeral joint. Moderate spurring along the inferior medial aspect of the humeral headThe acromial humeral interval appears decreased. The bone density is unremarkable. IMPRESSION: No acute pathology. Degenerative changes as discussed Molder Feeder: [facility] Transcribe Date/Time: Dec 05 2022 7:57A Dictated by : LESLIE CHRISTINE DO This examination was interpreted and the report reviewed and electronically signed by: LESLIE CHRISTINE DO on Dec 05 2022 8:01AM EST [id number] Normal [facility] XR SHOULDER GENERAL 3V OR MO RE AP/TRUE AP/OTHER LEFTon 12-04-2022 [facility] XR SHOULDER GENERAL 3V OR MO RE AP/TRUE AP/OTHER RIGHTon 12-04-2022 [facility] XR Shoulder - left 3 Viewson 12-04-2022 Radiology Study observation (narrative) [facility] XR Shoulder - right 3 Viewso n 12-04-2022 Radiology Study observation (narrative) [facility] Post Op (General Surgery)on 11-16-2022 Post Op (General Surgery) No report was sent [facility] ([facility]) Diagnoses/Problems History of Cyst excision Excision of a cyst on his scalp 11/01/[address] Bhakta Provider Impressions Mr. Vergara is an 82-year-old male s/p excision of a soft tissue mass from his scalp on 11/01/2022. He is doing well without any signs or symptoms of postoperative complication. Joey were removed in the office today. He can wash his hair as he normally would in the shower. He can return to his andrade with whom he has an appointment next week. His surgical pathology is still pending, and my office will notify him when this results. He will otherwise follow-up on an as-needed basis. Chief Complaint s/p excision of soft tissue mass on scalp History of Present IllnessMr. Vergara is an 82-year-old male seen in postoperative follow-up from excision of a soft tissue mass on his scalp. Surgical pathology is still pending, but this had the appearance of a epidermoid cyst. He is doing well without any fever, redness or drainage from the incision. His has been using baby shampoo to wash his hair and there sink. Review of Systems No fever, redness or drainage from incision Active Problems BPH (benign prostatic hyperplasia) (600.00) (N40.0) Chronic GERD (530.81) (K21.9) Chronic renal impairment, stage 3b (585.3) (N18.32) Controlled type 2 diabetes mellitus without complication, without long-term current use of insulin (250.00) (E11.9) Controlled type 2 diabetes mellitus without complication, without long-term current use of insulin Dry skin (701.1) (L85.3) Edema of both legs (782.3) (R60.0) Gout (274.9) (M10.9) Headache (784.0) (R51.9) Hyperlipidemia (272.4) (E78.5) Hypertension (401.9) (I10) Medicare annual wellness visit, subsequent (V70.0) (Z00.00) Neuropathy, peripheral, autonomic, idiopathic (337.00) (G90.09) Nocturia (788.43) (R35.1) Nocturnal hypoxemia (327.24) (G47.34) Obesity (278.00) (E66.9) 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 Bhakta Family History Family history of acute myocardial infarction (V17.3) (Z82.49) Family history of malignant neoplasm (V16.9) (Z80.9) Family history of acute myocardial infarction (V17.3) (Z82.49) Family history of malignant neoplasm (V16.9) (Z80.9) Family history of Primary malignant neoplasm of brain Family history of type 2 diabetes mellitus (V18.0) (Z83.3) Family history of Primary malignant neoplasm of female breast Social History Alcohol consumption one to two days per week (V49.89) (Z78.9) Current smokeless tobacco user Does not use illicit drugs (V49.89) (Z78.9) Does not use tobacco (V49.89) (Z78.9) Patient has healthcare proxy and living will (V49.89) (Z78.9) Allergies Statins Recorded By: Srikanth Cesar; 09/26/2019 1:00:26 PM Additional reactions - Tongue swelling Current Meds Medication NameInstruction Allopurinol 300 MG Oral TabletTAKE 1 TABLET DAILY. Aspirin 81 MG Oral Tablet Delayed ReleaseTAKE 1 TABLET DAILY DIRECTED. Blood Glucose Monitor System w/Device KitUSE TO CHECK BLOOD SUGAR TWICE DAILY Gabapentin 100 MG Oral CapsuleTAKE 2 CAPSULE Every morning AND 2 CAPSULES EVERY EVENING glipiZIDE 5 MG Oral TabletTAKE 1 TABLET TWICE DAILY. Glucose Meter Test In Vitro StripUSE TO TEST BLOOD SUGAR ONCE DAILY, DX E11.9 # 100 LancetsTEST TWICE DAILY dx E11.9 Losartan Potassium-HCTZ 100-25 MG Oral TabletTAKE 1 TABLET ONCE DAILY. metFORMIN HCl ER 500 MG Oral Tablet Extended Release 24 HourTAKE 2 TABLET Daily Triamcinolone Acetonide 0.1 % External CreamAPPLY 2-3 TIMES DAILY TO AFFECTED AREA(S). Triamcinolone Acetonide 0.5 % External OintmentAPPLY SPARINGLY TO AFFECTED AREA(S) TWICE DAILY Vitals Vital Signs Recorded: [id number] 09:24AM Heart Rate91 Hhplayyd697 Fnmdqdusj23 Height5 ft 10.5 in Zeyiss962 lb BMI Pfrjxihoee02.96 kg/m2 BSA Calculated2.24 Physical Exam No acute distress No labored breathing NSR Incision on scalp clean, dry, intact. No erythema or expressible drainage. He had a small scab that is starting to flake off. Bernice were removed without complication. Results/Data Surgical pathology pending Signatures Electronically signed by : Selina Bhakta MD; Nov 16 2022 9:31AM EST (Author) [facility] [employer] Medicare Annual Wellness Vis lloyd 11-14-2022 Medicare Annual Wellness Visit *Chief Complaint MEDICARE WELLNESS; 3 MO FU REV LABS History of Present Illness The patient is being seen for the subsequent annual wellness visit. Past Medical, Surgical and Family History: reviewed and updated in chart. Interval History: Patient has not been hospitalized previously. Medications and Supplements: Review of all medications by a prescribing practitioner or clinical pharmacist (such as prescriptions, OTCs, herbal therapies and supplements) documented in the medical record. No, the patient is not using opioids. Patient Self Assessment of Health Status: good. Tobacco use: Non-User Alcohol use: User Illicit drug use: Non-User Current diet: Diabetic Diet, does consume adequate fluids and does consume caffeine. Exercise Frequency: infrequently. Depression/Suicide Screening: . During the past 2 weeks, the patient has not felt down, depressed or hopeless. During the past 2 weeks, the patient has not felt little interest or pleasure in doing things. Hearing Impairment: Patient has significant hearing impairment, bilaterally, He uses a hearing aid. Cognitive Impairment: No cognitive impairment observed. Bathing: performs independently. Dressing: performs independently. Walking: performs independently. Managing Finances: performs independently. Shopping: performs independently. Managing Medications: performs independently. Housework / Basic Home Maintenance: performs independently. Falls Risk Screening:. KITTY has not fallen in the last 6 months. Home safety risk factors: none. Advance directives:. Advance Care Planning discussed and documented in the medical record, patient did not wish or was not able to name a surrogate decision maker or provide an advance care plan. Patient has living will. Patient has healthcare POA. It does seem like he is drinking adequate amounts of fluid, but his creatinine level did go up to 2 this time. Good news is his weight is down A1c is down with eating better. He does occasionally take ibuprofen couple of times a week to help with his aches and pains. He gets no relief from Tylenol and is really afraid because of getting off tramadol was difficult to take any stronger pain medicines. Discussed because of his kidneys he cannot take the ibuprofen every day here there would be okay but minimizing her 0 is the best approach. Recheck labs in 3 months because of the kidneys Hypertension - Takes medication without side effects. No CP/SOB/Palpitations. Follows a no added salt diet. Counseled diet, activity and weight loss. Occlusion of the carotid stable. OV and lab in 3 months Review of Systems Constitutional: No weakness, No fatigue. Eye: No blurring, No visual disturbances. Respiratory: No shortness of breath, No cough. Cardiovascular: No chest pain, No palpitations. Gastrointestinal: No nausea, No diarrhea, No constipation. Musculoskeletal: + joint pain, No muscle pain. Integumentary: No rash, No breakdown. Neurologic: Alert and oriented X4, No headache. Psychiatric: No irritability, No sleeping problems. *Active Problems BPH (benign prostatic hyperplasia) (600.00) (N40.0) Chronic GERD (530.81) (K21.9) Controlled type 2 diabetes mellitus without complication, without long-term current use of insulin (250.00) (E11.9) Controlled type 2 diabetes mellitus without complication, without long-term current use of insulin Dry skin (701.1) (L85.3) Edema of both legs (782.3) (R60.0) Gout (274.9) (M10.9) Headache (784.0) (R51.9) Hyperlipidemia (272.4) (E78.5) Hypertension (401.9) (I10) Medicare annual wellness visit, subsequent (V70.0) (Z00.00) Neuropathy, peripheral, autonomic, idiopathic (337.00) (G90.09) Nocturia (788.43) (R35.1) Nocturnal hypoxemia (327.24) (G47.34) Obesity (278.00) (E66.9) 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) Right elbow pain (719.42) (M25.521) Right wrist pain (719.43) (M25.531) Scalp cyst (706.2) (L72.9) Vision changes (368.9) (H53.9) Surgical History History of Appendectomy History of Cataract surgery History of Colonoscopy Family History Family history of acute myocardial infarction (V17.3) (Z82.49) Family history of malignant neoplasm (V16.9) (Z80.9) Family history of acute myocardial infarction (V17.3) (Z82.49) Family history of malignant neoplasm (V16.9) (Z80.9) Family history of Primary malignant neoplasm of brain Family history of type 2 diabetes mellitus (V18.0) (Z83.3) Family history of Primary malignant neoplasm of female breast Social History Alcohol consumption one to two days per week (V49.89) (Z78.9) Current smokeless tobacco user Does not use illicit drugs (V49.89) (Z78.9) Does not use tobacco (V49.89) (Z78.9) Patient has healthcare proxy and living will (V49.89) (Z78.9) *Allergies Statins Recorded By: Srikanth Cesar; (more content not included)... Normal [email or web address] Tobacco Screening.on 023 Adult depression screening assessment No [employer] [facility] Work Phone: Fall risk assessment b) One or more fall s in the last year [employer] [facility] Work Phone: Tobacco use status CPHS b) No [employer] [facility] Work Phone: Hemoglobin A1Con 11-10-2022 Glucose [Mass/Vol] 163 mg/dL [employer] [facility] Work Phone: HbA1c (Bld) [Mass fraction] 7.3 % Abnormal [employer] [facility] [employer] Phone: Comment on above: Diagnosis of Diabete s-Adults Non-Diabetic: < or = 5.6% Increased risk for developing diabetes: 5.7-6.4% Diagnostic of diabetes: > or = 6.5%. Monitoring of Diabetes Age (y) Therapeutic Goal (%) Adults: >18 <7.0 Pediatrics: 13-18 <7.5 7-12 <8.0 0- 6 7.5-8.5 [employer]. Diabetes Care 33(S1), Sep 2009. Laboratory - Chemistry and C hemistry - challengeon 11-10-2022 Albumin BCP dye [Mass/Vol] 3.7 g/dL 3.4 - 5.0 -[facility] Work Phone: ALP [Catalytic activity/Vol] 75 U/L 33 - 136 -[facility] Work Phone: ALT With P-5'-P [Catalytic activity/Vol] 8 U/L below low threshold 10 - 52 -[facility] Work Phone: Comment on above: Patients treated wit h Sulfasalazine may generate falsely decreased results for ALT. Anion gap [Moles/Vol] 13 mmol/L 10 - 20 - [facility] Work Phone: AST With P-5'-P [Catalytic activity/Vol] 13 U/L 9 - 39 [facility] Work Phone: Bilirubin [Mass/Vol] 0.7 mg/dL 0.0 - 1.2 [facility] Work Phone: Calcium [Mass/Vol] 8.9 mg/dL 8.6 - 10.3 -[facility] Work Phone: Chloride [Moles/Vol] 103 mmol/L 98 - 107 [facility] Work Phone: CO2 [Moles/Vol] 26 mmol/L 21 - 32 -[facility] Work Phone: Creatinine [Mass/Vol] 2.00 mg/dL above high threshold See Below [facility] Work Phone: Comment on above: Reference Range: 0.5 0 - 1.30 Glucose [Mass/Vol] 169 mg/dL above high threshold 74 - 99 [facility] Work Phone: Potassium [Moles/Vol] 4.4 mmol/L 3.5 - 5.3 - [facility] Work Phone: Protein [Mass/Vol] 7.1 g/dL 6.4 - 8.2 -[facility] Work Phone: Sodium [Moles/Vol] 138 mmol/L 136 - 145 [facility] Work Phone: Urea nitrogen [Mass/Vol] 32 mg/dL above high threshold 6 - 23 [facility] Work Phone: Laboratory - Hematology and Cell countson 11-10-2022 Erythrocyte distribution width (RBC) [Ratio] 14.3 % See Below [facility] Work Phone: Comment on above: Reference Range: 11. 5 - 14.5 Hematocrit (Bld) [Volume fraction] 38.6 % below low threshold See Below [facility] Work Phone: Comment on above: Reference Range: 41. 0 - 52.0 Hemoglobin (Bld) [Mass/Vol] 12.5 g/dL below low threshold See Below [facility] Work Phone: Comment on above: Reference Range: 13. 5 - 17.5 MCHC (RBC) [Mass/Vol] 32.4 g/dL See Below [facility] Work Phone: Comment on above: Reference Range: 32. 0 - 36.0 MCV (RBC) [Entitic vol] 93 fL 80 - 100 [facility] Work Phone: Platelets (Bld) [#/Vol] 217 10*3/uL 150 - 450 [facility] Work Phone: RBC (Bld) [#/Vol] 4.14 {x10E12/L} below low threshold See Below [facility] Work Phone: Comment on above: Reference Range: 4.5 0 - 5.90 WBC (Bld) [#/Vol] 13.0 10*3/uL above high threshold 4.4 - 11.3 [facility] Work Phone: No Panel Informationon 11-10 33 {mL/min/1.73m2} Abnormal >90 [facility] Work Phone: Comment on above: CALCULATIONS OF APOORVA MATED GFR ARE PERFORMED USING THE 2020 CKD-EPI STUDY REFIT EQUATION WITHOUT THE RACE VARIABLE FOR THE IDMS-TRACEABLE CREATININE METHODS.https://jasn.asnjournals.org/content/early/ N.1999562497 Prostate Specific Antigenon 11-10-2022 Prostate specific Ag [Mass/Vol] 3.08 ng/mL See Below [facility] [place] Work Phone: Comment on above: Reference Range: 0.0 0 - 4.00The FDA requires that the method used for PSA assay be reported to the physician. Values obtained with different assay methods must not be used interchangeably. This testwas performed at [facility] using the Zingayabritech PSA assay is a two-site immunoenzymatic sandwich assay. The assay is approved for measurement of prostate-specific antigen (PSA)in serum and may be used in conjunction with a digital rectal examination in men 50 years and older as an aid in detection of prostate cancer.0-Jwpxc-aoghtzbin inhibitors (e.g. Proscar, Finasteride, Avodart, Dutasteride and Lisa) for the treatment of BPH have been shown to lower PSA levels by an average of 50% after 6 months of treatment. GLUCOSE-POCTon 11-01-2022 Glucose [Mass/Vol] 170 mg/dL High 74 - 99 [facility] Comment on above: Performed By: #### C #### [address] [place] [address] Laboratory - Chemistry and C hemistry - challengeon 11-01-2022 Glucose [Mass/Vol] 170 mg/dL above high threshold 74 - 99 [facility] Work Phone: No Panel Informationon 11-01 [facility] Work Phone: Order Reconciliationon 11-01 Order Reconciliation Page 1 Discharge Reconciliation Document Reconciliation Type: Discharge requested on behalf of Selina Bhakta (Physician) done by Selina Bhakta) Discharge - Reconciliation: 01-Nov-2022 06:53 by: Selina Bhakta) Home Medications EnteredHOME MEDICATIONS AT DISCHARGE DateReconciliation Comment/ Additional Information allopurinol 300 mg oral tablet 1 tab(s) orally once a day 30-Oct-2022 10:19 allopurinol 300 mg oral tablet 1 tab(s) orally once a day 30-Oct-2022 10:19 allopurinol 300 mg oral tablet is continued as allopurinol 300 mg oral tablet aspirin 81 mg oral tablet, dispersible 1 tab(s) orally once a day 30-Oct-2022 10:19 aspirin 81 mg oral tablet, dispersible 1 tab(s) orally once a day 30-Oct-2022 10:19 aspirin 81 mg oral tablet, dispersible is continued as aspirin 81 mg oral tablet, dispersible gabapentin 100 mg oral capsule 2 cap(s) orally 2 times a day 30-Oct-2022 10:19 gabapentin 100 mg oral capsule 2 cap(s) orally 2 times a day 30-Oct-2022 10:19 gabapentin 100 mg oral capsule is continued as gabapentin 100 mg oral capsule glipiZIDE 5 mg oral tablet 1 tab(s) orally 2 times a day 30-Oct-2022 10:19 glipiZIDE 5 mg oral tablet 1 tab(s) orally 2 times a day 30-Oct-2022 10:19 glipiZIDE 5 mg oral tablet is continued as glipiZIDE 5 mg oral tablet losartan-hydroCHLOROthi azide 100 mg-25 mg oral tablet 1 tab(s) orally once a day 30-Oct-2022 10:20 losartan-hydroCHLOROthi azide 100 mg-25 mg oral tablet 1 tab(s) orally once a day 30-Oct-2022 10:20 losartan-hydroCHLOROthi azide 100 mg-25 mg oral tablet is continued as losartan-hydroCHLOROthi azide 100 mg-25 mg oral tablet metFORMIN 500 mg oral tablet 2 tab(s) orally once a day 30-Oct-2022 10:20 metFORMIN 500 mg oral tablet 2 tab(s) orally once a day 30-Oct-2022 10:20 metFORMIN 500 mg oral tablet is continued as metFORMIN 500 mg oral tablet Prevacid 15 mg oral delayed release capsule 1 cap(s) orally once a day 30-Oct-2022 10:19 Prevacid 15 mg oral delayed release capsule 1 cap(s) orally once a day 30-Oct-2022 10:19 Prevacid 15 mg oral delayed release capsule is continued as Prevacid 15 mg oral delayed release capsule Current OrdersDateHOME MEDICATIONS AT DISCHARGE DateReconciliation Comment/ Additional Information ceFAZolin 2 gram/ D5W 100 mL Premix IVPB (ANCEF)OnceRecommended Infusion Time: 30 minute(s)Clinician Notes: Administer within 60 minutes of incision. 31-Oct-2022 11:06 ceFAZolin 2 gram/ D5W 100 mL Premix IVPB is not required HYDROmorphone Injectable (DILAUDID)DOSE = 0.5 mg IntraVenous Push Every 5 Minutes, PRN Pain - Mod (4-6) (PACU)Clinician Notes: Nola-operative order ONLYMax total of 4 mg regardless of dose. 31-Oct-2022 13:04 HYDROmorphone Injectable is not required Lactated Ringers Infusion IV Bag Volume = 1,000 mL Run at: 100 mL/hr IntraVenous Clinician Notes: Nola-operative order ONLY 31-Oct-2022 13:04 Lactated Ringers Infusion is not required Midazolam Injectable (VERSED)DOSE = 1 mg IntraVenous Push Once, PRN AnxietyClinician Notes: ACS-PREOP 31-Oct-2022 13:04 Midazolam Injectable is not required Naloxone Injectable (NARCAN)DOSE = 0.2 mg IntraVenous Push Once, PRN If patient RR below 10, obtunded or unarousableClinician Notes: DO NOT ADMINISTER UNTIL PHYSiCIAN HAS BEEN NOTIFIED AND ASSESSED PATIENT 31-Oct-2022 13:04 Naloxone Injectable is not required oxyCODONE Immediate Release Tablet (OXYIR, ROXICODONE)DOSE = 5 mg Oral Every 4 Hours, PRN Pain - Mild (1-3) (PACU) when able to take OralClinician Notes: Nola-operative order ONLY 31-Oct-2022 13:04 oxyCODONE Immediate Release is not required Home Medications Added During Discharge Reconciliation Activity as Tolerated 01-Nov-2022, Routine, Assistance Level: None, Restrictions: None Additional Patient Instructions Do not consume alcoholic beverages for 24 hours. Additional Patient Instructions Do not make important decisions or sign any important documents for the next 24 hours. Additional Patient Instructions Do not smoke for 24 hours. Additional Patient Instructions Keep Surgical incision dry and clean. Call Physician For: excessive bleeding (slow general oozing that completely soaks dressing or fresh bright red bleeding) or bleeding that will not stop. Apply pressure to the area and elevate. Call Physician For: inability to urinate every 8-12 hours and your bladder becomes too full or painful. Call Physician For: persistant nausea and/or vomiting Over 24 hours Call Physician For: signs and sypmtoms of infection Increased redness or swelling at incision site, increased pain/tenderness at surgical site, increased temperature greater than 100 degress, increasing and/or progressive drainage from surgical site, and/or unusual odor from surgical site. Diet Regular Discharge Discharge Diagnosis< M79.89 Soft tissue mass Discharge Provider, Selina Bhakta Discharge Disposition : .Home Condition at Discharge: Satisfact (more content not included)... 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), center location, insurance information Prep Instructions Reviewedyes Instructed to Have No Fluids Aftermidnight How to be AddressedPhil Spoken Language PreferredEnglish Source of Informationpatient Stated Reason for Admissionscalp lesion Primary Contact Name and NumberBernice [phone] Medications Brought to Hospitalno General Health: Weight in kg105.9 kilogram(s) Weight in ied506.4 pound(s) Weight Methodactual (measured) Scale Typestanding Height in feet5 feet Height in kyrnye19 inch(es) Height in cm177.8 centimeter(s) Height Methodstated BMI (kg/m2)33.499 square meter Patient or Family Member Reaction to Anesthesiano previous reaction; no previous family member reaction Blood Avoidance/Restrictionsn one Previous Transfusion Reactionno Health Mgmt: Symptoms/Conditions Managed at Homecardiovascular; gastrointestinal; endocrine Cardiovascular Symptoms/Conditionshype rtension Endocrine Symptoms/Conditionsdiab etes Gastrointestinal Symptoms/Conditionsrefl ux/heartburn Barriers to Managing Healthnone Relationship/Environ: Lives Withsignificant other Living Arrangementscondominium Resource/Environmental Concernsnone Anticipated Transition [facility] Anticipated at Transitionnone Tobacco Use: Tobacco Useno Pre-op Checklist: Arrival [id number] Arrival Time06:11 NPOyes Last Food [id number] 22:00 Last Clear Fluid [id number] 22:00 ID Band On Patientpatient ID (name), allergy Consent Signedyes H&P Completeyes Anesthesia Assessment Completedyes EKG Performednot ordered Chest X-Ray Performednot ordered Preop Antibioticsstarted in preop Type and Screen Resultedn/a Chlorhexadine Bath Givennot applicable Nasal Antiseptic Appliednot applicable Soap and Water Bath the Night Before Surgeryyes Hair Washed with Shampooyes Bowel Prepno Surgical Site Infection Preventionno Pain Scales and Managementyes Additional Information: Information Review: Allergies, Home Meds and Significant Events have been Reviewed and Verified with Patient/Familyyes Allergy, Intolerance, Adverse Event: Allergies: statins: Drug Category, Throat Swelling, Active Problem List: Medical History: BPH (benign prostatic hyperplasia): Catalog Name: Benign prostatic hyperplasia without lower urinary tract symptoms GERD (gastroesophageal reflux disease): Catalog Name: Gastro-esophageal reflux disease without esophagitis Hypertension: Catalog Name: Essential (primary) hypertension Gout: Catalog Name: Gout, unspecified Diabetes mellitus: Catalog Name: Type 2 diabetes mellitus without complications Surg History: History of cataract extraction: Catalog Name: Cataract extraction status, unspecified eye History of appendectomy: Catalog Name: Acquired absence of other specified parts of digestive tract Electronic Signatures: Sue Garza) (Signed 01-Nov-2022 06:34) Authored: Initial Info, General Health, Health Mgmt, Relationship/Environ, Pre-op Checklist, Additional Information Kristan Costa) (Signed 30-Oct-2022 10:23) Authored: Initial Info, General Health, Tobacco Use, Additional Information Last Updated: 01-Nov-2022 06:34 by Sue Garza) [facility] Initial Visit (General Surge ry)on 10-26-2022 Initial Visit (General Surgery) Diagnoses/Problems Scalp cyst (706.2) (L72.9) History of Soft tissue mass (729.99) (M79.89) Provider Impressions Mr. Vergara is an 82-year-old male with a soft tissue mass on his scalp, most likely a benign epidermoid cyst. We discussed risks and benefit of excision. This included risk of bleeding, infection, poor wound healing, and recurrence. He is very concerned about having pain at time of surgery and we discussed that we will use a heavy sedation and perform this in the operating room. We discussed that he may feel injection of the local anesthetic and possibly some pulling/tugging, but should not have any sharp pain. He was agreeable to proceed. He is scheduled for excision of soft tissue mass of the scalp on 11/01/22. Chief Complaint Soft tissue mass on scalp History of Present IllnessMr. Vergara is an 82-year-old male seen by self-referral for evaluation of a soft tissue mass on his scalp. He has had numerous scalp cysts excised in the past, most recent of which was in 2005. The current soft tissue mass is overlying the left frontal parietal scalp. It measures 1.7 x 2 cm. It has never bled, itched, or been infected. It is bothersome to him when he brushes his hair or when he is at the [employer]rade. He takes 81 mg aspirin daily, but no other blood thinners or antiplatelet agents. Review of Systems Constitutional: no fever, sweats, and chills Cardiovascular: No chest pain or palpitations Respiratory: No cough or shortness of breath Gastrointestinal: No abdominal pain Genitourinary: + Frequent urination, regular nighttime urination Musculoskeletal: + Swelling in ankles Integumentary: + Soft tissue mass on scalp, rashes Neurological: no confusion Endocrine: no heat or cold intolerance Heme/Lymph: + Easy bruising Active Problems BPH (benign prostatic hyperplasia) (600.00) (N40.0) Chronic GERD (530.81) (K21.9) Controlled type 2 diabetes mellitus without complication, without long-term current use of insulin (250.00) (E11.9) Controlled type 2 diabetes mellitus without complication, without long-term current use of insulin Dry skin (701.1) (L85.3) Edema of both legs (782.3) (R60.0) Gout (274.9) (M10.9) Headache (784.0) (R51.9) Hyperlipidemia (272.4) (E78.5) Hypertension (401.9) (I10) Medicare annual wellness visit, subsequent (V70.0) (Z00.00) Neuropathy, peripheral, autonomic, idiopathic (337.00) (G90.09) Nocturia (788.43) (R35.1) Nocturnal hypoxemia (327.24) (G47.34) Obesity (278.00) (E66.9) 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) Right elbow pain (719.42) (M25.521) Right wrist pain (719.43) (M25.531) Vision changes (368.9) (H53.9) Surgical History History of Appendectomy History of Cataract surgery History of Colonoscopy Family History Family history of acute myocardial infarction (V17.3) (Z82.49) Family history of malignant neoplasm (V16.9) (Z80.9) Family history of acute myocardial infarction (V17.3) (Z82.49) Family history of malignant neoplasm (V16.9) (Z80.9) Family history of Primary malignant neoplasm of brain Family history of type 2 diabetes mellitus (V18.0) (Z83.3) Family history of Primary malignant neoplasm of female breast Social History Alcohol consumption one to two days per week (V49.89) (Z78.9) Current smokeless tobacco user Does not use illicit drugs (V49.89) (Z78.9) Does not use tobacco (V49.89) (Z78.9) Patient has healthcare proxy and living will (V49.89) (Z78.9) Allergies Statins Recorded By: Srikanth Cesar; 09/26/2019 1:00:26 PM Additional reactions - Tongue swelling Current Meds Medication NameInstruction Allopurinol 300 MG Oral TabletTAKE 1 TABLET DAILY. Aspirin 81 MG Oral Tablet Delayed ReleaseTAKE 1 TABLET DAILY DIRECTED. Blood Glucose Monitor System w/Device KitUSE TO CHECK BLOOD SUGAR TWICE DAILY Gabapentin 100 MG Oral CapsuleTAKE 2 CAPSULE Every morning AND 2 CAPSULES EVERY EVENING glipiZIDE 5 MG Oral TabletTAKE 1 TABLET TWICE DAILY. Glucose Meter Test In Vitro StripUSE TO TEST BLOOD SUGAR ONCE DAILY, DX E11.9 # 100 LancetsTEST TWICE DAILY dx E11.9 Lansoprazole 15 MG Oral Capsule Delayed ReleaseTAKE 1 CAPSULE Daily Losartan Potassium-HCTZ 100-25 MG Oral TabletTAKE 1 TABLET ONCE DAILY. metFORMIN HCl ER 500 MG Oral Tablet Extended Release 24 HourTAKE 2 TABLET Daily Pregabalin 100 MG Oral Capsuletake 1 capsule by mouth at bedtime Pregabalin 100 MG Oral Capsuletake 1 capsule by mouth at bedtime traMADol HCl ER 100 MG Oral Tablet Extended Release 24 Hour traMADol HCl ER 100 MG Oral Tablet Extended Release 24 Hour Triamcinolone Acetonide 0.1 % External CreamAPPLY 2-3 TIMES DAILY TO AFFECTED AREA(S). Triamcinolone Acetonide 0.5 % External OintmentAPPLY SPARINGLY TO AFFECTED AREA(S) TWICE DAILY Vitals Vital Signs Recorded: 26Oct2022 10:13AM Heart Rate92 [id number] Diastoli (more content not included)... Normal [email or web address] Tobacco Screening.on 023 Fall risk assessment a) No falls within the last year [facility] Work Phone: Tobacco use status [facility] a) Yes [facility] Work Phone: Office Visit (Primary Care T xt/Forms)on 08-07-2022 Follow-up visit Diagnoses/Problems Assessed Controlled type 2 diabetes mellitus without complication, without long-term current use of insulin (250.00) (E11.9) Controlled type 2 diabetes mellitus without complication, without long-term current use of insulin Hypertension (401.9) (I10) Polyneuropathy (356.9) (G62.9) Nocturia (788.43) (R35.1) Orders Controlled type 2 diabetes mellitus without complication, without long-term current use of insulin, Hypertension, Nocturia Complete Blood Count; Status:Active; Requested for:07Aug2022; Comprehensive Metabolic Panel; Status:Active; Requested for:07Aug2022; Hemoglobin A1C; Status:Active; Requested for:07Aug2022; Prostate Specific Antigen; Status:Active; Requested for:[id number]; Chief Complaint 2MO FU History of Present Illness Diabetes Type II - Takes and tolerates medications. No hypoglycemia. Counseled on diet with low carbohydrate intake, weight loss and increased activity levels/exercise. Hypertension - Takes medication without side effects. No CP/SOB/Palpitations. Follows a no added salt diet. Counseled diet, activity and weight loss. Seeing a nerve doc up in [place] Dr. Villanueva. Thinks it is diabetic neuropathy. Kept him on the gabapentin 200 mg in the afternoon and 200 mg in the evening. How long I will follow, can take over the prescription in the future. A1c is down to 7.7 with much better diet. No changes in medications. Recheck lab and office visit in 3 Review of Systems Constitutional: No weakness, No fatigue. Eye: No blurring, No visual disturbances. Respiratory: No shortness of breath, No cough. Cardiovascular: No chest pain, No palpitations. Gastrointestinal: No nausea, No diarrhea, No constipation. Musculoskeletal: No joint pain, No muscle pain. Integumentary: No rash, No breakdown. Neurologic: Alert and oriented X4, No headache. Psychiatric: No irritability, No sleeping problems. 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) Polyneuropathy (356.9) (G62.9) Right elbow pain (719.42) (M25.521) Right wrist pain (719.43) (M25.531) Vision changes (368.9) (H53.9) Surgical History Problems History of Appendectomy History of Cataract surgery History of Colonoscopy Family History Mother Family history of acute myocardial infarction (V17.3) (Z82.49) Family history of malignant neoplasm (V16.9) (Z80.9) Child Family history of acute myocardial infarction (V17.3) (Z82.49) Family history of malignant neoplasm (V16.9) (Z80.9) Family history of Primary malignant neoplasm of brain Other Family history of type 2 diabetes mellitus (V18.0) (Z83.3) Family history of Primary malignant neoplasm of female breast Social History Problems Alcohol consumption one to two days per week (V49.89) (Z78.9) Does not use illicit drugs (V49.89) (Z78.9) Does not use tobacco (V49.89) (Z78.9) Patient has healthcare proxy and living will (V49.89) (Z78.9) Current Meds Medication NameInstruction Allopurinol 300 MG Oral TabletTAKE 1 TABLET DAILY. Aspirin 81 MG Oral Tablet Delayed ReleaseTAKE 1 TABLET DAILY DIRECTED. Blood Glucose Monitor System w/Device KitUSE TO CHECK BLOOD SUGAR TWICE DAILY Furosemide 40 MG Oral TabletTAKE 1 TABLET DAILY. Gabapentin 100 MG Oral CapsuleTAKE 2 CAPSULE Every morning AND 2 CAPSULES EVERY EVENING glipiZIDE 5 MG Oral TabletTAKE 1 TABLET TWICE DAILY. Glucose Meter Test In Vitro StripUSE TO TEST BLOOD SUGAR ONCE DAILY, DX E11.9 # 100 LancetsTEST TWICE DAILY dx E11.9 Lansoprazole 15 MG Oral Capsule Delayed ReleaseTAKE 1 CAPSULE Daily Losartan Potassium-HCTZ 100-25 MG Oral TabletTAKE 1 TABLET ONCE DAILY. metFORMIN HCl ER 500 MG Oral Tablet Extended Release 24 HourTAKE 2 TABLET Daily Triamcinolone Acetonide 0.1 % External CreamAPPLY 2-3 TIMES DAILY TO AFFECTED AREA(S). Triamcinolone Acetonide 0.5 % External OintmentAPPLY SPARINGLY TO AFFECTED AREA(S) TWICE DAILY Allergies Medication Statins Vitals Vital Signs Recorded: 07Aug2022 10:08AM Heart Rate: 90 Systolic: 112 Diastolic: 68 Height: 5 ft 10.5 in Weight: 236 lb 1 oz BMI Calculated: 33.39 kg/m2 BSA Calculated: 2.25 Tobacco Use: b) No PHQ-2 #1. Over the last 2 weeks have you felt down, depressed or hopeless? (If yes, answer PHQ-9 below): No PHQ-2 #2. Over the last 2 weeks have you felt little interest or pleasu (more content not included)... Normal [employer] Tobacco Screening.on Adult depression screening assessment No [employer] [facility] [employer] Phone: Fall risk assessment a) No falls within the last year [employer] [facility] Work Phone: Tobacco use status [facility] b) No [employer] [facility] Work Phone: Hemoglobin A1Con 08-03-2022 Glucose [Mass/Vol] 174 mg/dL [facility] [employer] [facility] Work Phone: HbA1c (Bld) [Mass fraction] 7.7 % Abnormal [employer] [facility] Work Phone: Comment on above: Diagnosis of Diabete s-Adults Non-Diabetic: < or = 5.6% Increased risk for developing diabetes: 5.7-6.4% Diagnostic of diabetes: > or = 6.5%. Monitoring of Diabetes Age (y) Therapeutic Goal (%) Adults: >18 <7.0 Pediatrics: 13-18 <7.5 7-12 <8.0 0- 6 7.5-8.5 [place] [employer]. Diabetes Care 33(S1), Sep 2009. Laboratory - Chemistry and C hemistry - challengeon 08-03-2022 Albumin BCP dye [Mass/Vol] 3.9 g/dL 3.4 - 5.0 [employer] [facility] Work Phone: ALP [Catalytic activity/Vol] 70 U/L 33 - 136 [employer] [facility] Work Phone: ALT With P-5'-P [Catalytic activity/Vol] 11 U/L 10 - 52 [employer] [facility] Work Phone: Comment on above: Patients treated wit h Sulfasalazine may generate falsely decreased results for ALT. Anion gap [Moles/Vol] 14 mmol/L 10 - 20 MP- [facility] Work Phone: AST With P-5'-P [Catalytic activity/Vol] 13 U/L 9 - 39 [facility] Work Phone: Bilirubin [Mass/Vol] 0.8 mg/dL 0.0 - 1.2 - [facility] Work Phone: Calcium [Mass/Vol] 9.4 mg/dL 8.6 - 10.3 [facility] Work Phone: Chloride [Moles/Vol] 104 mmol/L 98 - 107 - [facility] Work Phone: CO2 [Moles/Vol] 25 mmol/L 21 - 32 [facility] Work Phone: Creatinine [Mass/Vol] 1.62 mg/dL above high threshold See Below [facility] Work Phone: Comment on above: Reference Range: 0.5 0 - 1.30 Glucose [Mass/Vol] 148 mg/dL above high threshold 74 - 99 [facility] Work Phone: Potassium [Moles/Vol] 4.3 mmol/L 3.5 - 5.3 - [facility] Work Phone: Protein [Mass/Vol] 7.3 g/dL 6.4 - 8.2 -[facility] Work Phone: Sodium [Moles/Vol] 139 mmol/L 136 - 145 -[facility] Work Phone: Urea nitrogen [Mass/Vol] 31 mg/dL above high threshold 6 - 23 -[facility] Work Phone: Laboratory - Hematology and Cell countson 08-03-2022 Erythrocyte distribution width (RBC) [Ratio] 14.7 % above high threshold See Below [facility] Work Phone: Comment on above: Reference Range: 11. 5 - 14.5 Hematocrit (Bld) [Volume fraction] 38.2 % below low threshold See Below [facility] Work Phone: Comment on above: Reference Range: 41. 0 - 52.0 Hemoglobin (Bld) [Mass/Vol] 12.3 g/dL below low threshold See Below [facility] Work Phone: Comment on above: Reference Range: 13. 5 - 17.5 MCHC (RBC) [Mass/Vol] 32.2 g/dL See Below [facility] [employer] [facility] Work Phone: Comment on above: Reference Range: 32. 0 - 36.0 MCV (RBC) [Entitic vol] 95 fL 80 - 100 [facility] [employer] [facility] Work Phone: Platelets (Bld) [#/Vol] 204 10*3/uL 150 - 450 [facility] [employer] [facility] Work Phone: RBC (Bld) [#/Vol] 4.02 {x10E12/L} below low threshold See Below [facility] Work Phone: Comment on above: Reference Range: 4.5 0 - 5.90 WBC (Bld) [#/Vol] 10.6 10*3/uL 4.4 - 11.3 [facility] dical [employer] [facility] Work Phone: No Panel Informationon 08-03 42 {mL/min/1.73m2} Abnormal >90 -[facility] [employer] [facility] Work Phone: Comment on above: CALCULATIONS OF APOORVA MATED GFR ARE PERFORMED USING THE 2020 CKD-EPI STUDY REFIT EQUATION WITHOUT THE RACE VARIABLE FOR THE IDMS-TRACEABLE CREATININE METHODS.https://jasn.asnjournals.org/content/early// N.5602568402 Office Visit (Primary Care T xt/Forms)on 07-03-2022 Follow-up visit Diagnoses/Problems Assessed Polyneuropathy (356.9) (G62.9) Orders Polyneuropathy Start: Gabapentin 100 MG Oral Capsule; TAKE 1-2 CAPSULES PO at Bedtime Chief Complaint QUESTIONS- PT HAS BEEN TAKING TRAMADOL FOR NEUROPATHY- PT HAS NOT HAD TRAMADOL FOR 15 DAYS.. HAVING BAD WITHDRAW SIDE EFFECTS History of Present Illness neuropathy -longstanding hereditary polyneuropathy. Was with previous pain doc that retired or moved and stopped his tramadol. When he went to see Dr. Estrada he tried to switch the type of tramadol that he was taking but he did not tolerate it well and he did not want to take it and stopped. He also started him on pregabalin 100 mg at bedtime. That caused significant mental status changes. Pain only really bothers him at bedtime. Cording to Omar he has never tried gabapentin or pregabalin before for the neuropathy. Is to stay away from the tramadol because he thought he was addicted to it. And I told him that rules out the other strong pain medicines from me would not want to talk to his new pain management doctor. He had significant side effects from the pregabalin 100 mg, will try gabapentin 100 mg 1 or 2 pills at bedtime. Call with an update in 1 week. OARRS report run, got an exception error. Not an obvious reason why. Will not auto populate in EMR.1 1 Amended By: Daniel Almanzar; Jul 03 2022 11:07 AM ESTReview of Systems Musculoskeletal: limb pain, but no muscle weakness and no back pain. Neurological: numbness/tingling. 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) Polyneuropathy (356.9) (G62.9) Right elbow pain (719.42) (M25.521) Right wrist pain (719.43) (M25.531) Vision changes (368.9) (H53.9) Surgical History Problems History of Appendectomy History of Cataract surgery History of Colonoscopy Family History Mother Family history of acute myocardial infarction (V17.3) (Z82.49) Family history of malignant neoplasm (V16.9) (Z80.9) Child Family history of acute myocardial infarction (V17.3) (Z82.49) Family history of malignant neoplasm (V16.9) (Z80.9) Family history of Primary malignant neoplasm of brain Other Family history of type 2 diabetes mellitus (V18.0) (Z83.3) Family history of Primary malignant neoplasm of female breast Social History Problems Alcohol consumption one to two days per week (V49.89) (Z78.9) Does not use illicit drugs (V49.89) (Z78.9) Does not use tobacco (V49.89) (Z78.9) Patient has healthcare proxy and living will (V49.89) (Z78.9) Current Meds Medication NameInstruction Allopurinol 300 MG Oral TabletTAKE 1 TABLET DAILY. Aspirin 81 MG Oral Tablet Delayed ReleaseTAKE 1 TABLET DAILY DIRECTED. Blood Glucose Monitor System w/Device KitUSE TO CHECK BLOOD SUGAR TWICE DAILY Furosemide 40 MG Oral TabletTAKE 1 TABLET DAILY. glipiZIDE 5 MG Oral TabletTAKE 1 TABLET TWICE DAILY. Glucose Meter Test In Vitro StripUSE TO TEST BLOOD SUGAR ONCE DAILY, DX E11.9 # 100 LancetsTEST TWICE DAILY dx E11.9 Lansoprazole 15 MG Oral Capsule Delayed ReleaseTAKE 1 CAPSULE Daily Losartan Potassium-HCTZ 100-25 MG Oral TabletTAKE 1 TABLET ONCE DAILY. metFORMIN HCl ER 500 MG Oral Tablet Extended Release 24 HourTAKE 2 TABLET Daily traMADol HCl - 50 MG Oral TabletTAKE 1 TABLET EVERY 4 TO 6 HOURS NEEDED. Triamcinolone Acetonide 0.1 % External CreamAPPLY 2-3 TIMES DAILY TO AFFECTED AREA(S). Triamcinolone Acetonide 0.5 % External OintmentAPPLY SPARINGLY TO AFFECTED AREA(S) TWICE DAILY Allergies Medication Statins Vitals Vital Signs Recorded: 03Jul2022 10:18AM Heart Rate: 98 Systolic: 126 Diastolic: 78 Height: 5 ft 10.5 in Weight: 236 lb 5 oz BMI Calculated: 33.43 kg/m2 BSA Calculated: 2.25 Tobacco Use: b) No PHQ-2 #1. Over the last 2 weeks have you felt down, depressed or hopeless? (If yes, answer PHQ-9 below): No PHQ-2 #2. Over the last 2 weeks have you felt little interest or pleasure in doing things? (If yes, answer PHQ-9 below): No Falls Screening (Age 18+): a) No falls within the last year O2 Saturation: 97 Physical Exam General: Alert and oriented, No acute distress. Ambulation status: With steady gait. Appearance: Well nourished, Calm. Behavior: Cooperative. Integumentary: Warm, Dry, [place], Intact. Psychiatric: Cooperative, Appropriate mood AND affect, Normal judgment. Signat (more content not included)... Normal [facility] Tobacco Screening.on Adult depression screening assessment No [facility] Work Phone: Fall risk assessment a) No falls within the last year [facility] Work Phone: Tobacco use status [facility] b) No [facility] Work Phone: MRI Brain w/wo Contraston MR Brain WO and W contrast IV Normal [facility] Work Phone: C Reactive Protein, Serumon 05-23-2022 CRP [Mass/Vol] 0.43 mg/dL [facility] Work Phone: Comment on above: REF VALUE< 1.00 Falls Screening (Age 18+)on 05-23-2022 Adult depression screening assessment No [facility] Work Phone: Fall risk assessment a) No falls within the last year [facility] Work Phone: Tobacco use status CP b) No [employer] Work Phone: Office Visit (Primary Care T xt/Forms)on 05-23-2022 Follow-up visit Diagnoses/Problems Assessed Headache (784.0) (R51.9) Vision changes (368.9) (H53.9) Hypertension (401.9) (I10) Edema of both legs (782.3) (R60.0) Orders Headache, Hypertension, Vision changes C Reactive Protein, Serum; Status:Active; Requested for:23May2022; MRI Brain w/wo Contrast; Status:Hold For - Scheduling; Requested for:23May2022; Radiologist to Determine Optimal Study : Y Does the patient have a Cochlear Implant, Pacemaker, Defibrilator, Pacing Wire, Brain Aneurysm Clip, Implanted Nerve or Bone Graft Simulator, Implanted Breast Tissue Radio Operator Ground, Glucose Monitor, or Neulasta Device? : No What are the patient's signs and symptoms? : sharp Headache behind right eye, vision changes both eyes, balance problems prn. Sedimentation Rate, Erythrocyte; Status:Active; Requested for:23May2022; Chief Complaint 2WK FU REV LABS(DONE)- NOT TAKING THE LASIX OF TWO DAYS AGO OR SO-- DIDNT LIKE HOW HE WOULD GET LIGHT HEADED/DIZZY History of Present Illness Echo was okay TALAT test was okay. Creatinine was up a little bit on the daily Lasix. He did get a little lightheaded and stopped it. Did help him a little bit with the swelling of his legs. His weight is down another 3 pounds. He is down 12 pounds over the last 3 months. Sugar is up the most thyroid is off a little bit kidney is off a little bit. At this point his weight loss and better eating I think is helped him a lot. To new problems where he had vision changes in both eyes that was just sort of blurry and got better. I believe the next day or 2 he had a acute sharp pain behind his right eye that lasted for hours. He had no other vision changes at that time. He was able to go to sleep and when he woke up the headache was gone. He has not had a past medical history of migraines. Did not get the so distraught affect usually with an ocular migraine. Has had a little bit of some balance issues over the last couple years that have not necessarily gotten worse recently. Renal the nonspecific changes he has, recommend an MRI, CRP and an ESR test. No office visit follow-up scheduled yet. Review of Systems Constitutional: feeling tired, but no fever, not feeling poorly and no chills. Eyes: eyesight problems and blurry vision, but no double vision. Cardiovascular: no chest pain and no palpitations. Respiratory: no cough and no dyspnea with exertion. Neurological: headache, dizziness and numbness/tingling, but no fainting, no limb weakness, no confusion, no memory change and no speech difficulty. Psychiatric: no mood changes and no sleep disturbances. 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) Polyneuropathy (356.9) (G62.9) Right elbow pain (719.42) (M25.521) Right wrist pain (719.43) (M25.531) Surgical History Problems History of Appendectomy History of Cataract surgery History of Colonoscopy Family History Mother Family history of acute myocardial infarction (V17.3) (Z82.49) Family history of malignant neoplasm (V16.9) (Z80.9) Child Family history of acute myocardial infarction (V17.3) (Z82.49) Family history of malignant neoplasm (V16.9) (Z80.9) Family history of Primary malignant neoplasm of brain Other Family history of type 2 diabetes mellitus (V18.0) (Z83.3) Family history of Primary malignant neoplasm of female breast Social History Problems Alcohol consumption one to two days per week (V49.89) (Z78.9) Does not use illicit drugs (V49.89) (Z78.9) Does not use tobacco (V49.89) (Z78.9) Patient has healthcare proxy and living will (V49.89) (Z78.9) Current Meds Medication NameInstruction Allopurinol 300 MG Oral TabletTAKE 1 TABLET DAILY. Aspirin 81 MG Oral Tablet Delayed ReleaseTAKE 1 TABLET DAILY DIRECTED. Blood Glucose Monitor System w/Device KitUSE TO CHECK BLOOD SUGAR TWICE DAILY Furosemide 40 MG Oral TabletTAKE 1 TABLET DAILY. glipiZIDE 5 MG Oral TabletTAKE 1 TABLET TWICE DAILY. Glucose Meter Test In Vitro StripUSE TO TEST BLOOD SUGAR ONCE DAILY, DX E11.9 # 100 LancetsTEST TWICE DAILY dx E11.9 Lansoprazole 15 MG Oral Capsule Delayed ReleaseTAKE 1 CAPSULE Daily Losartan Potassium-HCTZ 100-25 MG Oral TabletTAKE 1 TABLET ONCE DAILY. metFORMIN HCl ER 500 MG Oral Tablet Extended Release 24 HourTAKE 2 TABLET Daily traMADol HCl - 50 MG Oral TabletTAKE 1 TABLET EVERY 4 TO 6 HOURS NEEDED. Triamcinolone Aceton (more content not included)... Normal [employer] Sedimentation Rate, Erythroc yteon 05-23-2022 ESR (Bld) [Velocity] 9 mm/h 0 - 20 [employer] [facility] Work Phone: Laboratory - Chemistry and C hemistry - challengeon 05-22-2022 Anion gap [Moles/Vol] 13 mmol/L 10 - 20 [employer] [facility] Work Phone: Calcium [Mass/Vol] 9.2 mg/dL 8.6 - 10.3 [employer] [facility] Work Phone: Chloride [Moles/Vol] 101 mmol/L 98 - 107 [employer] [facility] Work Phone: CO2 [Moles/Vol] 26 mmol/L 21 - 32 [employer] [facility] Work Phone: Creatinine [Mass/Vol] 1.74 mg/dL above high threshold See Below [employer] [facility] Work Phone: Comment on above: Reference Range: 0.5 0 - 1.30 Glucose [Mass/Vol] 168 mg/dL above high threshold 74 - 99 [employer] [facility] Work Phone: Potassium [Moles/Vol] 4.3 mmol/L 3.5 - 5.3 [employer] [facility] Work Phone: Sodium [Moles/Vol] 136 mmol/L 136 - 145 [employer] [facility] Work Phone: Urea nitrogen [Mass/Vol] 29 mg/dL above high threshold 6 - 23 [employer] [facility] Work Phone: No Panel Informationon 05-22 39 {mL/min/1.73m2} Abnormal >90 [employer] [facility] Work Phone: Comment on above: CALCULATIONS OF APOORVA MATED GFR ARE PERFORMED USING THE 2020 CKD-EPI STUDY REFIT EQUATION WITHOUT THE RACE VARIABLE FOR THE IDMS-TRACEABLE CREATININE METHODS.https://jasn.asnjournals.org/content// N.0563281082 VASC LAB PVR TALAT onlyon 04-24 VASC LAB PVR TALAT only [id number] [id number] [id number] [place] [address] [phone], Vascular Lab Report PVR TALAT Patient Name: KITTY VERGARA Denise Physician: 7 [email or web address] [facility] Work Phone: Tobacco Screening.on 022 Adult depression screening assessment No [employer] [facility] Work Phone: Fall risk assessment a) No falls within the last year [employer] [facility] Work Phone: Tobacco use status [facility] b) No [facility] Work Phone: Tobacco Screening.on 022 Adult depression screening assessment No [employer] [facility] Work Phone: Fall risk assessment a) No falls within the last year [facility] [employer] [facility] Work Phone: Tobacco use status [facility] b) No [facility] [employer] [facility] Work Phone: Hemoglobin A1Con 03-29-2022 Glucose [Mass/Vol] 209 mg/dL [facility] [employer] [facility] Work Phone: HbA1c (Bld) [Mass fraction] 8.9 % Abnormal [employer] [facility] Work Phone: Comment on above: Diagnosis of Diabete s-Adults Non-Diabetic: < or = 5.6% Increased risk for developing diabetes: 5.7-6.4% Diagnostic of diabetes: > or = 6.5%. Monitoring of Diabetes Age (y) Therapeutic Goal (%) Adults: >18 <7.0 Pediatrics: 13-18 <7.5 7-12 <8.0 0- 6 7.5-8.5 [place] [employer]. Diabetes Care 33(S1), Sep 2009. Laboratory - Chemistry and C hemistry - challengeon 03-29-2022 Albumin BCP dye [Mass/Vol] 4.0 g/dL 3.4 - 5.0 [employer] [facility] Work Phone: ALP [Catalytic activity/Vol] 71 U/L 33 - 136 [employer] [facility] Work Phone: ALT With P-5'-P [Catalytic activity/Vol] 12 U/L 10 - 52 [employer] [facility] Work Phone: Comment on above: Patients treated wit h Sulfasalazine may generate falsely decreased results for ALT. Anion gap [Moles/Vol] 14 mmol/L 10 - 20 [employer] [place] [facility] Work Phone: AST With P-5'-P [Catalytic activity/Vol] 16 U/L 9 - 39 [employer] [facility] Work Phone: Bilirubin [Mass/Vol] 0.9 mg/dL 0.0 - 1.2 - [facility] Work Phone: Calcium [Mass/Vol] 8.9 mg/dL 8.6 - 10.3 -[facility] Work Phone: Chloride [Moles/Vol] 100 mmol/L 98 - 107 - [facility] Work Phone: CO2 [Moles/Vol] 26 mmol/L 21 - 32 -[facility] Work Phone: Creatinine [Mass/Vol] 1.62 mg/dL above high threshold See Below [facility] Work Phone: Comment on above: Reference Range: 0.5 0 - 1.30 Glucose [Mass/Vol] 192 mg/dL above high threshold 74 - 99 [facility] Work Phone: Potassium [Moles/Vol] 4.2 mmol/L 3.5 - 5.3 - [facility] Work Phone: Protein [Mass/Vol] 7.3 g/dL 6.4 - 8.2 -[facility] Work Phone: Sodium [Moles/Vol] 136 mmol/L 136 - 145 -[facility] Work Phone: Urea nitrogen [Mass/Vol] 30 mg/dL above high threshold 6 - 23 [facility] Work Phone: Laboratory - Hematology and Cell countson 03-29-2022 Erythrocyte distribution width (RBC) [Ratio] 14.6 % above high threshold See Below [facility] Work Phone: Comment on above: Reference Range: 11. 5 - 14.5 Hematocrit (Bld) [Volume fraction] 37.0 % below low threshold See Below [facility] Work Phone: Comment on above: Reference Range: 41. 0 - 52.0 Hemoglobin (Bld) [Mass/Vol] 12.5 g/dL below low threshold See Below [facility] Work Phone: Comment on above: Reference Range: 13. 5 - 17.5 MCHC (RBC) [Mass/Vol] 33.9 g/dL See Below [facility] [employer] [facility] Work Phone: Comment on above: Reference Range: 32. 0 - 36.0 MCV (RBC) [Entitic vol] 90 fL 80 - 100 [facility] Work Phone: Platelets (Bld) [#/Vol] 187 10*3/uL 150 - 450 [facility] Work Phone: RBC (Bld) [#/Vol] 4.12 {x10E12/L} below low threshold See Below [facility] Work Phone: Comment on above: Reference Range: 4.5 0 - 5.90 WBC (Bld) [#/Vol] 9.1 10*3/uL 4.4 - 11.3 [facility] Work Phone: Lipid Panelon 03-29-2022 Cholesterol [Mass/Vol] 172 mg/dL 0 - 199 [facility] [employer] [facility] Work Phone: Comment on above: . AGE DESIRABLE BORD NIKKI HIGH HIGH 0-19 Y 0 - 169 170 - 199 >/= 200 20-24 Y 0 - 189 190 - 224 >/= 225 >24 Y 0 - 199 200 - 239 >/= 240 All ranges are based on fasting samples. Specific therapeutic targets will vary based on patient-specific cardiac risk.. Pediatric guidelines reference:Pediatrics 2011, 128(S5). Adult guidelines reference: NCEP ATPIII Guidelines, TRAE 2001, 258:2486-97. Venipuncture immediately after or during the administration of Metamizole may lead to falsely low results. Testing should be performed immediately prior to Metamizole dosing. Cholesterol in HDL [Mass/Vol] 36.0 mg/dL Abnormal [employer] [facility] Work Phone: Comment on above: . AGE VERY LOW LOW N ORMAL HIGH 0-19 Y < 35 < 40 40-45 ---- 20- 24 Y ---- < 40 >45 ---- >24 Y ---- < 40 40-60 >60. Cholesterol in LDL [Mass/Vol] - 0 - 99 [employer] [facility] Work Phone: Comment on above: . NEAR BORD AGE LADONNA RABLE OPTIMAL HIGH HIGH VERY HIGH 0-19 Y 0 - 109 --- 110-129 >/= 130 ---- 20-24 Y 0 - 119 --- 120-159 >/= 160 ---- >24 Y 0 - 99 100-129 130-159 160-189 >/=190.THE CALCULATION OF LDL AND VLDL ARE INACCURATEWHEN TRIGLYCERIDES ARE GREATER THAN 400 MG/DLOR WHEN THE PATIENT IS NON-FASTING. IF LDLMEASUREMENT IS NECESSARY CONTACT THE TESTINGLABORATORY FOR AN ALTERNATIVE LDL ASSAY. Cholesterol.total/Cho lesterol in HDL [Mass ratio] 4.8 {ratio} [employer] [facility] Work Phone: Comment on above: REF VALUESDESIRABLE < 3.4HIGH RISK > 5.0 Triglyceride [Mass/Vol] 529 mg/dL above high threshold 0 - 149 [employer] [facility] Work Phone: Comment on above: . AGE DESIRABLE BORD NIKKI HIGH HIGH VERY HIGH 0 D-90 D 19 - 174 ---- ---- ----91 D- 9 Y 0 - 74 75 - 99 >/= 100 ---- 10-19 Y 0 - 89 90 - 129 >/= 130 ---- 20-24 Y 0 - 114 115 - 149 >/= 150 ---- >24 Y 0 - 149 150 - 199 200- 499 >/= 500. Venipuncture immediately after or during the administration of Metamizole may lead to falsely low results. Testing should be performed immediately prior to Metamizole dosing. Lipid Panel SEE COMMENT 0 - 40 [employer] [facility] Work Phone: Comment on above: Unable to calculate VLDL. No Panel Informationon 03-29 42 {mL/min/1.73m2} Abnormal >90 [employer] [facility] Work Phone: Comment on above: CALCULATIONS OF APOORVA MATED GFR ARE PERFORMED USING THE 2020 CKD-EPI STUDY REFIT EQUATION WITHOUT THE RACE VARIABLE FOR THE IDMS-TRACEABLE CREATININE METHODS.https://jasn.asnjournals.org/content// N.1745274574 TSH - Thyroid Stimulating Ho rmone, Serumon 03-29-2022 TSH Qn 5.45 m[IU]/L above high threshold See Below [employer] [facility] Work Phone: Comment on above: Reference Range: 0.4 4 - 3.98 TSH testing is performed using different testing methodology at [facility] than at other [facility]. Direct result comparisons should only be made within the same method. Tobacco Screening.on Adult depression screening assessment No [employer] [facility] Work Phone: Fall risk assessment a) No falls within the last year [employer] [facility] Work Phone: Tobacco use status CPHS b) No [employer] [facility] Work Phone: Hemoglobin A1Con 09-29-2021 Glucose [Mass/Vol] 180 mg/dL [employer] [facility] Work Phone: HbA1c (Bld) [Mass fraction] 7.9 % Abnormal [employer] [facility] Work Phone: Comment on above: Diagnosis of Diabete s-Adults Non-Diabetic: < or = 5.6% Increased risk for developing diabetes: 5.7-6.4% Diagnostic of diabetes: > or = 6.5%. Monitoring of Diabetes Age (y) Therapeutic Goal (%) Adults: >18 <7.0 Pediatrics: 13-18 <7.5 7-12 <8.0 0- 6 7.5-8.5 [place] [employer]. Diabetes Care 33(S1), Sep 2009. Laboratory - Chemistry and C hemistry - challengeon 09-29-2021 Albumin BCP dye [Mass/Vol] 3.9 g/dL 3.4 - 5.0 [facility] Work Phone: ALP [Catalytic activity/Vol] 65 U/L 33 - 136 [facility] Work Phone: ALT With P-5'-P [Catalytic activity/Vol] 13 U/L 10 - 52 [facility] Work Phone: Comment on above: Patients treated wit h Sulfasalazine may generate falsely decreased results for ALT. Anion gap [Moles/Vol] 12 mmol/L 10 - 20 - [facility] Work Phone: AST With P-5'-P [Catalytic activity/Vol] 16 U/L 9 - 39 -[facility] Work Phone: Bilirubin [Mass/Vol] 0.8 mg/dL 0.0 - 1.2 [facility] Work Phone: Calcium [Mass/Vol] 9.4 mg/dL 8.6 - 10.3 -[facility] [employer] [facility] Work Phone: Chloride [Moles/Vol] 102 mmol/L 98 - 107 [facility] [employer] [facility] Work Phone: CO2 [Moles/Vol] 27 mmol/L 21 - 32 [facility] Work Phone: Creatinine [Mass/Vol] 1.37 mg/dL above high threshold See Below -[facility] Work Phone: Comment on above: Reference Range: 0.5 0 - 1.30 Glucose [Mass/Vol] 172 mg/dL above high threshold 74 - 99 -[facility] Work Phone: Potassium [Moles/Vol] 4.2 mmol/L 3.5 - 5.3 - [facility] Work Phone: Protein [Mass/Vol] 7.4 g/dL 6.4 - 8.2 [facility] Work Phone: Sodium [Moles/Vol] 137 mmol/L 136 - 145 [employer] [facility] Work Phone: Urea nitrogen [Mass/Vol] 23 mg/dL 6 - 23 [employer] [facility] Work Phone: No Panel Informationon 09-29 52 {mL/min/1.73m2} Abnormal >90 [employer] [facility] Work Phone: Comment on above: CALCULATIONS OF APOORVA MATED GFR ARE PERFORMED USING THE 2020 CKD-EPI STUDY REFIT EQUATION WITHOUT THE RACE VARIABLE FOR THE IDMS-TRACEABLE CREATININE METHODS.https://jasn.asnjournals.org/content/early// N.6422726063 Tobacco Screening.on 021 Fall risk assessment a) No falls within the last year [employer] [facility] Work Phone: Tobacco use status CPHS b) No [employer] [facility] Work Phone: Hemoglobin A1Con 03-30-2021 Glucose [Mass/Vol] 186 mg/dL [employer] [facility] Work Phone: HbA1c (Bld) [Mass fraction] 8.1 % [employer] [facility] Work Phone: Comment on above: Diagnosis of Diabete s-Adults Non-Diabetic: < or = 5.6% Increased risk for developing diabetes: 5.7-6.4% Diagnostic of diabetes: > or = 6.5%. Monitoring of Diabetes Age (y) Therapeutic Goal (%) Adults: >18 <7.0 Pediatrics: 13-18 <7.5 7-12 <8.0 0- 6 7.5-8.5 [place] [employer]. Diabetes Care 33(S1), Sep 2009. Laboratory - Chemistry and C hemistry - challengeon 03-30-2021 Albumin BCP dye [Mass/Vol] 4.1 g/dL 3.4 - 5.0 [employer] [facility] Work Phone: ALP [Catalytic activity/Vol] 66 U/L 33 - 136 [facility] Work Phone: ALT With P-5'-P [Catalytic activity/Vol] 11 U/L 10 - 52 [facility] Work Phone: Comment on above: Patients treated wit h Sulfasalazine may generate falsely decreased results for ALT. Anion gap [Moles/Vol] 13 mmol/L 10 - 20 - [facility] Work Phone: AST With P-5'-P [Catalytic activity/Vol] 15 U/L 9 - 39 -[facility] Work Phone: Bilirubin [Mass/Vol] 0.7 mg/dL 0.0 - 1.2 [facility] Work Phone: Calcium [Mass/Vol] 9.2 mg/dL 8.6 - 10.3 -[facility] Work Phone: Chloride [Moles/Vol] 101 mmol/L 98 - 107 [facility] Work Phone: CO2 [Moles/Vol] 26 mmol/L 21 - 32 [facility] Work Phone: Creatinine [Mass/Vol] 1.52 mg/dL above high threshold See Below [facility] Work Phone: Comment on above: Reference Range: 0.5 0 - 1.30 Glucose [Mass/Vol] 175 mg/dL above high threshold 74 - 99 [facility] Work Phone: Potassium [Moles/Vol] 4.2 mmol/L 3.5 - 5.3 - [facility] Work Phone: Protein [Mass/Vol] 7.6 g/dL 6.4 - 8.2 -[facility] Work Phone: Sodium [Moles/Vol] 136 mmol/L 136 - 145 [facility] Work Phone: Urea nitrogen [Mass/Vol] 26 mg/dL above high threshold 6 - 23 [facility] Work Phone: Laboratory - Hematology and Cell countson 03-30-2021 Erythrocyte distribution width (RBC) [Ratio] 15.0 % above high threshold See Below [facility] [employer] [facility] Work Phone: Comment on above: Reference Range: 11. 5 - 14.5 Hematocrit (Bld) [Volume fraction] 37.4 % below low threshold See Below [facility] Work Phone: Comment on above: Reference Range: 41. 0 - 52.0 Hemoglobin (Bld) [Mass/Vol] 12.6 g/dL below low threshold See Below [facility] Work Phone: Comment on above: Reference Range: 13. 5 - 17.5 MCHC (RBC) [Mass/Vol] 33.8 g/dL See Below [facility] [employer] [facility] Work Phone: Comment on above: Reference Range: 32. 0 - 36.0 MCV (RBC) [Entitic vol] 92 fL 80 - 100 [facility] Work Phone: Platelets (Bld) [#/Vol] 209 10*3/uL 150 - 450 [facility] Work Phone: RBC (Bld) [#/Vol] 4.05 {x10E12/L} below low threshold See Below [facility] Work Phone: Comment on above: Reference Range: 4.5 0 - 5.90 WBC (Bld) [#/Vol] 9.8 10*3/uL 4.4 - 11.3 [facility] [employer] [facility] Work Phone: No Panel Informationon 03-30 53 {mL/min/1.73m2} Abnormal >60 [facility] [employer] [facility] Work Phone: Comment on above: CALCULATIONS OF APOORVA MATED GFR ARE PERFORMED USING THE MDRD STUDY EQUATION FOR THE IDMS-TRACEABLE CREATININE METHODS. CLIN CHEM 2007;53:[id number] 44 {mL/min/1.73m2} Abnormal >60 -[facility] [place] [place] Work Phone: TSH - Thyroid Stimulating Ho jeannie, Serumon 03-30-2021 TSH Qn 4.37 m[IU]/L above high threshold See Below -[facility] Work Phone: Comment on above: Reference Range: 0.4 4 - 3.98 TSH testing is performed using different testing methodology at [facility] than at other [facility]. Direct result comparisons should only be made within the same method. Auto Diffon 03-21-2019 Basophils (Bld) [#/Vol] 0.2 E3/mcL Normal 0.0-0.2 [facility] Comment on above: Order Comment: Order added by Discern Expert. Performed By: #### 1 [id number] #### MOREL[facility] [employer] [address] [place] [address] Basophils/100 WBC (Bld) 2.0 % Normal 0.0-2.0 [facility] Comment on above: Order Comment: Order added by Amor Expert. Performed By: #### 1 [id number] #### MORELIA [employer] [facility] [place] [address] Eos Absolute 0.4 E3/mcL Normal 0.0-0.7 [facility] Comment on above: Order Comment: Order added by Discern Expert. Performed By: #### 1 [id number] #### MORELIA [employer] [facility] [place] [address] Eosinophils/100 WBC (Bld) 4.4 % Normal 0.0-11.0 [facility] Comment on above: Order Comment: Order added by Amor Expert. Performed By: #### 1 [id number] #### MORELIA [employer] [facility] [place] [address] Lymphocytes (Bld) [#/Vol] 4.0 E3/mcL High 1.2-3.4 [facility] Comment on above: Order Comment: Order added by Discern Expert. Performed By: #### 1 [id number] #### MORELIA [employer] [address] [place] [address] Lymphocytes/100 WBC (Bld) 40.2 % Normal 20.0-55.0 [facility] Comment on above: Order Comment: Order added by Discern Expert. Performed By: #### 1 [id number] #### MORELIA [employer] [address] [place] [address] [place] Absolute 0.6 E3/mcL Normal 0.0-0.7 [facility] Comment on above: Order Comment: Order added by Discern Expert. Performed By: #### 1 [id number] #### MORELIA [employer] [address] [place] [address] Monocytes/100 WBC (Bld) 6.0 % Normal 0.0-10.0 [facility] Comment on above: Order Comment: Order added by Discern Expert. Performed By: #### 1 [id number] #### MORELIA [employer] [address] [place] [address] Neutro Absolute 4.7 E3/mcL Normal 1.4-6.5 [facility] Comment on above: Order Comment: Order added by Discern Expert. Performed By: #### 1 [id number] #### MORELIA [address] [address] Neutro Auto 47.4 % Normal 37.0-75.0 [facility] Comment on above: Order Comment: Order added by Discern Expert. Performed By: #### 1 [id number] #### MORELIAPilar Levy[address] [address] CBC w/ Auto Diffon 9 Erythrocyte distribution width (RBC) [Ratio] 14.6 % High 11.5-14.5 [facility] Comment on above: Performed By: #### 1 [id number] #### MORELIA [employer] [address] [place] [address] Hematocrit (Bld) [Volume fraction] 41.0 % Low 42.0-52.0 [facility] Comment on above: Performed By: #### 1 [id number] #### [facility] [address] [place] [address] Hemoglobin (Bld) [Mass/Vol] 13.8 g/dL Normal 13.5-18.0 [facility] Comment on above: Performed By: #### 1 [id number] #### MORELIA [employer] [address] [place] [address] MCH (RBC) [Entitic mass] 31.7 pg High 27.0-31.0 [facility] Comment on above: Performed By: #### 1 [id number] #### MORELIA [employer] [address] [place] [address] MCHC (RBC) [Mass/Vol] 33.8 g/dL Normal 33.0-37.0 [facility] Comment on above: Performed By: #### 1 [id number] #### MORELIA [employer] [address] [place] [address] MCV (RBC) [Entitic vol] 94.0 fL Normal 78.0-100.0 [facility] Comment on above: Performed By: #### 1 [id number] #### MORELIA Mildredatokore [facility] [place] [address] Platelet mean volume (Bld) [Entitic vol] 10.6 fL Normal 7.4-11.0 [facility] Comment on above: Performed By: #### 1 [id number] #### MORELIA [employer] [facility] [place] [address] Platelets (Bld) [#/Vol] 204 E3/mcL Normal 130-400 [facility] Comment on above: Performed By: #### 1 [id number] #### MORELIA [employer] [address] [place] [address] RBC (Bld) [#/Vol] 4.36 E6/mcL Normal 3.90-6.10 [facility] Comment on above: Performed By: #### 1 [id number] #### MORELIA [employer] [address] [place] [address] WBC (Bld) [#/Vol] 9.8 E3/mcL Normal 3.6-11.0 [facility] Comment on above: Performed By: #### 1 [id number] #### MORELIA [employer] [address] [place] [address] CMPon 03-21-2019 Albumin [Mass/Vol] 4.3 g/dL Normal 3.4-5.0 [facility] Comment on above: Performed By: #### 1 [id number] #### MORELIA [employer] [facility] [place] [address] Albumin/Globulin [Mass ratio] 1.4 {ratio} Normal 1.1-1.9 [facility] Comment on above: Performed By: #### 1 [id number] #### MORELIAPilar [employer] [facility] [place] [address] Alk Phos 65 Int._Unit/L Normal 33-136 [facility] Comment on above: Performed By: #### 1 [id number] #### MORELIA [employer] [facility] [place] [address] ALT [Catalytic activity/Vol] 15 Int._Unit/L Normal 10-52 [facility] Comment on above: Performed By: #### 1 [id number] #### MORELIA [employer] [address] [place] [address] Anion gap [Moles/Vol] 12 mmol/L Normal 10-20 [facility] Comment on above: Performed By: #### 1 [id number] #### MORELIA [employer] [address] [place] [address] AST [Catalytic activity/Vol] 17 Int._Unit/L Normal 9-39 [facility] Comment on above: Performed By: #### 1 [id number] #### MORELIAPilar [employer]at[employer] [facility] [place] [address] Bili Total 0.84 mg/dL Normal 0.00-1.20 [facility] Comment on above: Performed By: #### 1 [id number] #### M[employer]ELIAPilar [employer] [address] [place] [address] Calcium [Mass/Vol] 9.4 mg/dL Normal 8.6-10.3 [facility] Comment on above: Performed By: #### 1 [id number] #### [facility] [employer] [facility] [place] [address] Chloride [Moles/Vol] 101 mmol/L Normal 98-107 [facility] Comment on above: Performed By: #### 1 [id number] #### [facility] [employer] [address] [place] [address] CO2 [Moles/Vol] 29.0 mmol/L Normal 21.0-32.0 [facility] Comment on above: Performed By: #### 1 [id number] #### MORELIA [employer] [address] [place] [address] Creatinine [Mass/Vol] 1.3 mg/dL Normal 0.5-1.3 [facility] Comment on above: Performed By: #### 1 [id number] #### MORELIA [employer] [address] [place] [address] Globulin (S) [Mass/Vol] 3.0 g/dL Normal 2.0-4.0 [facility] Comment on above: Performed By: #### 1 [id number] #### MORELIA [employer] [address] [place] [address] Glucose [Mass/Vol] 176 mg/dL High 70-99 [facility] Comment on above: Performed By: #### 1 [id number] #### MORELIA [employer] [address] [place] [address] Potassium [Moles/Vol] 4.8 mmol/L Normal 3.5-5.3 [facility] Comment on above: Performed By: #### 1 [id number] #### MORELIA [employer] [address] [place] [address] Protein [Mass/Vol] 7.3 g/dL Normal 6.4-8.2 [facility] Comment on above: Performed By: #### 1 [id number] #### MORELIA [employer] [address] [place] [address] Sodium [Moles/Vol] 137 mmol/L Normal 136-145 [facility] Comment on above: Performed By: #### 1 [id number] #### MORELIA [employer] [address] [place] [address] Urea nitrogen [Mass/Vol] 31 mg/dL High 6-23 [facility] Comment on above: Performed By: #### 1 [id number] #### MOER[employer] [address] [place] [address] Urea nitrogen/Creatinine [Mass ratio] 23.8 ratio Normal 5.4-30.0 [facility] Comment on above: Performed By: #### 1 [id number] #### MORELIA [employer] [address] [place] [address] [id number] 03-21-2019 HbA1c (Bld) [Mass fraction] 7.4 % High 4.0-6.3 [facility] Comment on above: Performed By: #### 1 [id number] #### MORELIA [employer] [address] [place] [address] Lipid Profileon 03-21-2019 Cholesterol [Mass/Vol] 156 mg/dL Normal 0-199 [facility] Comment on above: Result Comment: TOTA L CHOLEESTEROL: <200 NORMAL 200 - 239 BORDERLINE HIGH >240 HIGH Performed By: #### 1 [id number] #### MORELIA [employer] [facility] [place] [address] Cholesterol in HDL [Mass/Vol] 41 mg/dL Normal 40-60 [facility] Comment on above: Performed By: #### 1 [id number] #### MORELIAPilar [employer]atok[employer] [facility] [place] [address] Cholesterol in LDL [Mass/Vol] 29 mg/dL Normal 0-130 [facility] Comment on above: Result Comment: <100 OPTIMAL 100-129 NEAR / ABOVE OPTIMAL 130-159 BORDERLINE HIGH 160-189 HIGH >190 VERY HIGH CALC LDL NOT VALID WHEN TRIGLYCERIDE IS >400 MG/DL Performed By: #### 1 [id number] #### MORELIA [employer] [address] [place] [address] Cholesterol in VLDL [Mass/Vol] 86 mg/dL High 0-40 [facility] Comment on above: Performed By: #### 1 [id number] #### MORELIA [employer] [facility] [place] [address] Triglyceride [Mass/Vol] 429 mg/dL High 0-149 [facility] Comment on above: Result Comment: AGE DESIRABLE BORDERLINE HIGH 91 D - 9 Y 0 - 74 75 - 99 > 100 10 - 19 Y 0 - 89 90 - 129 > 130 20 -24 Y 0 - 114 115 - 149 > 150 > 25 0 - 149 150 - 199 200 - 499 Performed By: #### 1 [id number] #### MORELIA [employer] [address] [place] [address] TSHon 03-21-2019 TSH Qn 4.22 mcIU/mL Normal 0.30-5.60 [facility] Comment on above: Performed By: #### 1 [id number] #### MORELIA [employer] [facility] [place] [address] eGFRon 03-21-2019 GFR/1.73 sq M predicted among non-blacks MDRD (S/P/Bld) [Vol rate/Area] mL/min/{1.73_m2} Normal [facility] Comment on above: Order Comment: Order added by Discern Expert. Performed By: #### 1 [id number] #### MORELIA [employer] [facility] [place] [address] GFR/1.73 sq M predicted among non-blacks MDRD (S/P/Bld) [Vol rate/Area] 52 mL/min/1.73 m2 Normal [facility] Comment on above: Order Comment: Order added by Discern Expert. Performed By: #### 1 [id number] #### MORELIA [id number] [place] [address] Lipase Levelon 03-19-2019 Lipase Lvl 24 Int._Unit/L Normal 9-82 [facility] Comment on above: Performed By: #### 1 [id number] #### MORELIA [address] [address] PSA Totalon 03-19-2019 PSA Total 4.30 ng/mL Normal [facility] Comment on above: Result Comment: AGE- SPECIFIC REFERENCE RANGES FOR SERUM PSA REFERENCE RANGE NG/ML AGE ASIANS BLACKS WHITE 40-49 0-2 0-2 0-2.5 50-59 0-3 0-4 0-3.5 60-69 0-4 0-4.5 0-4.5 70-79 0-5 0-5.5 0-6.5 PSA INCREASES WITH AGE, RACE, AND EJACULATION WITHIN 48 HRS. [facility] VOL24,NO.2, , PG.339 Performed By: #### 1 [id number] #### MORELIA [id number] [place] [address] Auto Diffon 12-30-2018 Basophils (Bld) [#/Vol] 0.1 E3/mcL Normal 0.0-0.2 [facility] Comment on above: Order Comment: Order Added by Discern Expert. Performed By: #### 2 [id number] #### MORELIA RemHemo [address] [place] [address] Basophils/100 WBC (Bld) 0.9 % Normal 0.0-2.0 [facility] Comment on above: Order Comment: Order Added by Discern Expert. Performed By: #### 2 [id number] #### MORELIA RemHemo [address] [place] [address] Eos Absolute 0.4 E3/mcL Normal 0.0-0.7 [facility] Comment on above: Order Comment: Order Added by Discern Expert. Performed By: #### 2 [id number] #### MORELIA RemHemo [address] [place] [address] Eosinophils/100 WBC (Bld) 5.2 % Normal 0.0-11.0 [facility] Comment on above: Order Comment: Order Added by Discern Expert. Performed By: #### 2 [id number] #### MORELIA RemHemo [address] [place] [address] Lymphocytes (Bld) [#/Vol] 2.5 E3/mcL Normal 1.2-3.4 [facility] Comment on above: Order Comment: Order Added by Discern Expert. Performed By: #### 2 [id number] #### MORELIA LevyHemo [address] [place] [address] Lymphocytes/100 WBC (Bld) 29.7 % Normal 20.0-55.0 [facility] Comment on above: Order Comment: Order Added by Discern Expert. Performed By: #### 2 [id number] #### MORELIA RemHemo [address] [place] [address] [place] Absolute 0.6 E3/mcL Normal 0.0-0.7 [facility] Comment on above: Order Comment: Order Added by Discern Expert. Performed By: #### 2 [id number] #### MORELIA RemHemo [address] [place] [address] Monocytes/100 WBC (Bld) 6.9 % Normal 0.0-10.0 [facility] Comment on above: Order Comment: Order Added by Discern Expert. Performed By: #### 2 [id number] #### MORELIA RemHemo [address] [place] [address] Neutro Absolute 4.8 E3/mcL Normal 1.4-6.5 [facility] Comment on above: Order Comment: Order Added by Discern Expert. Performed By: #### 2 [id number] #### MORELIA LevyHemo [address] [place] [address] Neutro Auto 57.3 % Normal 37.0-75.0 [facility] Comment on above: Order Comment: Order Added by Discern Expert. Performed By: #### 2 [id number] #### MORELIA LevyHemo [address] [place] [address] CBC w/ Auto Diffon 9 Erythrocyte distribution width (RBC) [Ratio] 14.8 % High 11.5-14.5 [facility] Comment on above: Performed By: #### 2 [id number] #### MORELIA LevyHemo [facility] [place] [address] Hematocrit (Bld) [Volume fraction] 38.1 % Low 42.0-52.0 [facility] Comment on above: Performed By: #### 2 [id number] #### MORELIA LevyHemo [address] [place] [address] Hemoglobin (Bld) [Mass/Vol] 12.7 g/dL Low 13.5-18.0 [facility] Comment on above: Performed By: #### 2 [id number] #### MORELIA LevyHemo [address] [place] [address] MCH (RBC) [Entitic mass] 31.6 pg High 27.0-31.0 [facility] Comment on above: Performed By: #### 2 [id number] #### MORELIA RemHemo [address] [place] [address] MCHC (RBC) [Mass/Vol] 33.4 g/dL Normal 33.0-37.0 [facility] Comment on above: Performed By: #### 2 [id number] #### MORELIA RemHemo [address] [place] [address] MCV (RBC) [Entitic vol] 94.9 fL Normal 78.0-100.0 [facility] Comment on above: Performed By: #### 2 [id number] #### MORELIA RemHemo [address] [place] [address] Platelet mean volume (Bld) [Entitic vol] 9.5 fL Normal 7.4-11.0 [facility] Comment on above: Performed By: #### 2 [id number] #### MORELIA RemHemo [address] [place] [address] Platelets (Bld) [#/Vol] 209 E3/mcL Normal 130-400 [facility] Comment on above: Performed By: #### 2 [id number] #### MORELIA RemHemo [address] [place] [address] RBC (Bld) [#/Vol] 4.01 E6/mcL Normal 3.90-6.10 [facility] Comment on above: Performed By: #### 2 [id number] #### MORELIA RemHemo [address] [place] [address] WBC (Bld) [#/Vol] 8.3 E3/mcL Normal 3.6-11.0 [facility] Comment on above: Performed By: #### 2 [id number] #### MORELIA RemHemo [address] [place] [address] CMPon 12-30-2018 Albumin [Mass/Vol] 3.8 g/dL Normal 3.4-5.0 [facility] Comment on above: Performed By: #### 2 [id number] #### MORELIA yepptlink [address] [place] [address] Albumin/Globulin [Mass ratio] 1.3 {ratio} Normal 1.1-1.9 [facility] Comment on above: Performed By: #### 2 [id number] #### MORELIA [employer] [address] [place] [address] Alk Phos 58 Int._Unit/L Normal 33-136 [facility] Comment on above: Performed By: #### 2 [id number] #### [facility] [employer] [address] [place] [address] ALT [Catalytic activity/Vol] 19 Int._Unit/L Normal 10-52 [facility] Comment on above: Performed By: #### 2 [id number] #### MORELIA [employer] [address] [place] [address] Anion gap [Moles/Vol] 14 mmol/L Normal 10-20 [facility] [facility] Comment on above: Performed By: #### 2 [id number] #### [facility] [employer] [address] [place] [address] 77779 AST [Catalytic activity/Vol] 19 Int._Unit/L Normal 9-39 [facility] Comment on above: Performed By: #### 2 [id number] #### [facility] [employer] [address] [place] [address] 62828 Bili Total 0.90 mg/dL Normal 0.00-1.20 [facility] Comment on above: Performed By: #### 2 [id number] #### [facility] [employer] [address] [place], [place] [address] Calcium [Mass/Vol] 8.6 mg/dL Normal 8.6-10.3 [facility] Comment on above: Performed By: #### 2 [id number] #### [facility] [employer] [address] [place], [place] [address] Chloride [Moles/Vol] 103 mmol/L Normal 98-107 [facility] Comment on above: Performed By: #### 2 [id number] #### [facility] [employer] [address] [place] [address] 31851 CO2 [Moles/Vol] 25.0 mmol/L Normal 21.0-32.0 [facility] Comment on above: Performed By: #### 2 [id number] #### [facility] [employer] [address] [place] [address] 30034 Creatinine [Mass/Vol] 1.3 mg/dL Normal 0.5-1.3 [facility] Comment on above: Performed By: #### 2 [id number] #### [facility] [employer] [address] [place] [address] 09769 Globulin (S) [Mass/Vol] 3.0 g/dL Normal 2.0-4.0 [facility] Comment on above: Performed By: #### 2 [id number] #### [facility] [employer] [address] [place] [address] 12832 Glucose [Mass/Vol] 202 mg/dL High 70-99 [facility] Comment on above: Performed By: #### 2 [id number] #### [facility] [employer] [facility] [place] [address] Potassium [Moles/Vol] 4.1 mmol/L Normal 3.5-5.3 [facility] Comment on above: Performed By: #### 2 [id number] #### [facility] [employer] [address] [place] [address] 18046 Protein [Mass/Vol] 6.7 g/dL Normal 6.4-8.2 [facility] Comment on above: Performed By: #### 2 [id number] #### [facility] [employer] [address] [place] [address] 72423 Sodium [Moles/Vol] 138 mmol/L Normal 136-145 [facility] Comment on above: Performed By: #### 2 [id number] #### [facility] [employer] [address] [place], [place] [address] Urea nitrogen [Mass/Vol] 15 mg/dL Normal 6-23 [facility] Comment on above: Performed By: #### 2 [id number] #### [facility] [employer] [address] [place], [place] [address] Urea nitrogen/Creatinine [Mass ratio] 11.5 ratio Normal 5.4-30.0 [facility] Comment on above: Performed By: #### 2 [id number] #### [facility] [employer] [address] [place], [place] [address] [id number] 12-30-2018 HbA1c (Bld) [Mass fraction] 8.8 % High 4.0-6.3 [facility] Comment on above: Performed By: #### 3 [id number] #### [facility] Chemistry Manual Subsection [address] [place], [place] [address] TSHon 12-30-2018 TSH Qn 5.44 mcIU/mL Normal 0.30-5.60 [facility] Comment on above: Performed By: #### 2 [id number] #### [facility] [employer] [address] [place] [address] 02860 eGFRon 12-30-2018 GFR/1.73 sq M predicted among non-blacks MDRD (S/P/Bld) [Vol rate/Area] mL/min/{1.73_m2} Normal [facility] Comment on above: Order Comment: Order added by Discern Expert. Performed By: #### 1 [id number] #### [facility] [employer] [address] [place] [address] 41724 GFR/1.73 sq M predicted among non-blacks MDRD (S/P/Bld) [Vol rate/Area] 54 mL/min/1.73 m2 Normal [facility] Comment on above: Order Comment: Order added by Discern Expert. Performed By: #### 1 [id number] #### [facility] [employer] [address] [place], [place] [address] CMPon 07-01-2018 Globulin (S) [Mass/Vol] 3.0 g/dL Normal 2.0-4.0 [facility] Comment on above: Performed By: #### 2 [id number] #### [facility] [employer] [address] [place], [place] [address] Anion gap [Moles/Vol] 12 mmol/L Normal 6-16 [facility] Comment on above: Performed By: #### 2 [id number] #### [facility] [employer] [address] [place], [place] [address] Albumin [Mass/Vol] 3.9 g/dL Normal 3.4-5.0 [facility] Comment on above: Performed By: #### 2 [id number] #### [facility] [employer] [address] [place], [place] [address] Albumin/Globulin [Mass ratio] 1.2 {ratio} Normal 1.1-1.9 [facility] Comment on above: Performed By: #### 2 [id number] #### [facility] [employer] [address] [place] [address] 18668 Alk Phos 60 Normal 33-136 [facility] Comment on above: Performed By: #### 2 [id number] #### [facility] [employer] [address] [place] [address] 27604 ALT [Catalytic activity/Vol] 15 Int._Unit/L Normal 10-52 [facility] Comment on above: Performed By: #### 2 [id number] #### [facility] [employer] [address] [place] [address] 94545 AST [Catalytic activity/Vol] 18 Int._Unit/L Normal 9-39 [facility] Comment on above: Performed By: #### 2 [id number] #### [facility] [employer] [address] [place] [address] 06494 Bili Total 0.9 mg/dL Normal 0.0-1.2 [facility] Comment on above: Performed By: #### 2 [id number] #### [facility] [employer] [address] [place] [address] 92453 Calcium [Mass/Vol] 8.9 mg/dL Normal 8.6-10.3 [facility] Comment on above: Performed By: #### 2 [id number] #### [facility] [employer] [address] [place] [address] 94470 Chloride [Moles/Vol] 105 mmol/L Normal 98-107 [facility] Comment on above: Performed By: #### 2 [id number] #### [facility] [employer] [address] [place] [address] 16443 CO2 [Moles/Vol] 25.0 mmol/L Normal 21.0-32.0 [facility] Comment on above: Performed By: #### 2 [id number] #### [facility] [employer] [address] [place] [address] 53465 Creatinine [Mass/Vol] 1.3 mg/dL Normal 0.6-1.3 [facility] Comment on above: Performed By: #### 2 [id number] #### [facility] [employer] [address] [place] [address] 32238 Glucose [Mass/Vol] 165 mg/dL High 70-99 [facility] Comment on above: Performed By: #### 2 [id number] #### [facility] [employer] [address] [place] [address] 79556 Potassium [Moles/Vol] 3.9 mmol/L Normal 3.5-5.3 [facility] Comment on above: Performed By: #### 2 [id number] #### [facility] [employer] [address] [place] [address] 34738 Protein [Mass/Vol] 7.2 g/dL Normal 6.4-8.2 [facility] Comment on above: Performed By: #### 2 [id number] #### [facility] [employer] [address] [place] [address] 35718 Sodium [Moles/Vol] 138 mmol/L Normal 136-145 [facility] Comment on above: Performed By: #### 2 [id number] #### [facility] [employer] [address] [place] [address] Urea nitrogen [Mass/Vol] 20 mg/dL Normal 6-23 [facility] Comment on above: Performed By: #### 2 [id number] #### [facility] [employer] [address] [place], [place] [address] Urea nitrogen/Creatinine [Mass ratio] 15.4 ratio Normal 5.4-30.0 [facility] Comment on above: Performed By: #### 2 [id number] #### [facility] [employer] [address] [place], [place] [address] [id number] 07-01-2018 HbA1c (Bld) [Mass fraction] 7.5 % High 4.0-6.3 [facility] Comment on above: Performed By: #### 3 [id number] #### [facility] Chemistry Manual Subsection [address] [place] [address] TSHon 07-01-2018 TSH Qn 4.48 mIU/m Normal 0.30-5.60 [facility] Comment on above: Performed By: #### 2 [id number] #### [facility] [employer] [address] [place], [place] [address] eGFRon 07-01-2018 GFR/1.73 sq M predicted among non-blacks MDRD (S/P/Bld) [Vol rate/Area] mL/min/{1.73_m2} Normal [facility] Comment on above: Order Comment: Order added by Discern Expert. Performed By: #### 1 [id number] #### [facility] [employer] [address] [place] [address] 50632 GFR/1.73 sq M predicted among non-blacks MDRD (S/P/Bld) [Vol rate/Area] 53 mL/min/1.73 m2 Normal [facility] Comment on above: Order Comment: Order added by Discern Expert. Performed By: #### 1 [id number] #### [facility] [employer] [address] [place] [address] 43971 Vital Signs Date Time Vital Sign Value Performing Clinician Facility 07-26-2025 07:43-0500 Body temperature 97.9 [degF] Dorothy Barbosa MD Work Phone: [facility] 07-26-2025 07:43-0500 Diastolic blood pressure 67 mm[Hg] Dorothy Barbosa MD Work Phone: [facility] 07-26-2025 07:43-0500 Heart rate 73 /min Dorothy Barbosa MD Work Phone: [facility] 07-26-2025 07:43-0500 Respiratory rate 16 /min Dorothy Barbosa MD Work Phone: [facility] 07-26-2025 07:43-0500 SaO2% (BldA) [Mass fraction] 94 % Dorothy Barbosa MD Work Phone: [facility] 07-26-2025 07:43-0500 Systolic blood pressure 144 mm[Hg] Dorothy Barbosa MD Work Phone: [facility] 07-23-2025 06:00-0400 Body mass index (BMI) [Ratio] 32.75 kg/m2 Dorothy Barbosa MD Work Phone: [facility] 07-23-2025 06:00-0400 Body weight 100.6 kg Dorothy Barbosa MD Work Phone: [facility] 07-13-2025 21:55-0400 Body height 175.3 cm Dorothy Barbosa MD Work Phone: [facility] 07-01-2025 14:29-0400 Body height 179.1 cm Josef Rodrigues MD Work Phone: [facility] 07-01-2025 14:29-0400 Body mass index (BMI) [Ratio] 32.82 kg/m2 Josef Rodrigues MD Work Phone: [facility] 07-01-2025 14:29-0400 Body temperature 97.3 [degF] Josef Rodrigues MD Work Phone: [facility] 07-01-2025 14:290400 Body weight 105.23 kg Josef Rodrigues MD Work Phone: [facility] 07-01-2025 14:29-0400 Diastolic blood pressure 62 mm[Hg] Josef Rodrigues MD Work Phone: [facility] 07-01-2025 14:29-0400 Heart rate 63 /min Josfe Rodrigues MD Work Phone: [facility] 07-01-2025 14:29-0400 Respiratory rate 16 /min Josef Rodrigues MD Work Phone: [facility] 07-01-2025 14:29-0400 SaO2% (BldA) [Mass fraction] 98 % Josef Rodrigues MD Work Phone: [facility] 07-01-2025 14:29-0400 Systolic blood pressure 130 mm[Hg] Josef Rodrigues MD Work Phone: [facility] 04-21-2025 13:53-0400 Body height 177.8 cm Nima Fay MD Work Phone: [facility] 04-21-2025 13:53-0400 Body mass index (BMI) [Ratio] 32.86 kg/m2 Nima Fay MD Work Phone: [facility] 04-21-2025 13:53-0400 Body weight 103.87 kg Nima Fay MD Work Phone: [facility] 04-21-2025 13:53-0400 Diastolic blood pressure 72 mm[Hg] Nima Fay MD Work Phone: [facility] 04-21-2025 13:53-0400 Heart rate 77 /min Nima Fay MD Work Phone: [facility] 04-21-2025 13:53-0400 Systolic blood pressure 126 mm[Hg] Nima Fay MD Work Phone: [facility] 03-30-2025 15:00-0400 Body temperature 97.3 [degF] Matilde Regan MD Work Phone: [facility] 03-30-2025 15:00-0400 Diastolic blood pressure 75 mm[Hg] Matilde Regan MD Work Phone: [facility] 03-30-2025 15:00-0400 Heart rate 70 /min Matilde Regan MD Work Phone: [facility] 03-30-2025 15:00-0400 Respiratory rate 20 /min Matilde Regan MD Work Phone: [facility] 03-30-2025 15:00-0400 SaO2% (BldA) [Mass fraction] 98 % Matilde Regan MD Work Phone: [facility] 03-30-2025 15:00-0400 Systolic blood pressure 155 mm[Hg] Matilde Regan MD Work Phone: [facility] 03-17-2025 14:57-0400 Diastolic blood pressure 65 mm[Hg] Gopi Vergara DO Work Phone: [facility] 03-17-2025 14:57-0400 Heart rate 61 /min Gopi Vergara DO Work Phone: [facility] 03-17-2025 14:57-0400 Respiratory rate 17 /min Gopi Vergara DO Work Phone: [facility] 03-17-2025 14:57-0400 SaO2% (BldA) [Mass fraction] 95 % Gopi Vergara DO Work Phone: [facility] 03-17-2025 14:57-0400 Systolic blood pressure 137 mm[Hg] Gopi Vergara DO Work Phone: [facility] 03-17-2025 11:37-0400 Body height 179.1 cm Gopi Vergara DO Work Phone: [facility] 03-17-2025 11:37-0400 Body mass index (BMI) [Ratio] 31.4 kg/m2 Gopi Vergara DO Work Phone: [facility] 03-17-2025 11:37-0400 Body temperature 97.7 [degF] Gopi Vergara DO Work Phone: [facility] 03-17-2025 11:37-0400 Body weight 100.7 kg Gopi Vergara DO Work Phone: [facility] 03-11-2025 10:50-0400 Body height 182.9 cm Daniel Almanzar MD Work Phone: [facility] 03-11-2025 10:50-0400 Body mass index (BMI) [Ratio] 31.76 kg/m2 Daniel Almanzar MD Work Phone: [facility] 03-11-2025 10:50-0400 Body weight 106.23 kg Daniel Almanzar MD Work Phone: [facility] 03-11-2025 10:50-0400 Diastolic blood pressure 58 mm[Hg] Daniel Almanzar MD Work Phone: [facility] 03-11-2025 10:50-0400 Heart rate 54 /min Daniel Almanzar MD Work Phone: [facility] 03-11-2025 10:50-0400 SaO2% (BldA) [Mass fraction] 99 % Daniel Almanzar MD Work Phone: [facility] 03-11-2025 10:50-0400 Systolic blood pressure 126 mm[Hg] Daniel lAmanzar MD Work Phone: [facility] 03-05-2025 13:35-0400 Diastolic blood pressure 73 mm[Hg] Sanya Shin DO Work Phone: [facility] 03-05-2025 13:35-0400 Systolic blood pressure 151 mm[Hg] Sanya Shin DO Work Phone: [facility] 03-05-2025 11:53-0400 Body temperature 96.1 [degF] Sanya Shin DO Work Phone: [facility] 03-05-2025 11:53-0400 Heart rate 52 /min Sanya Shin DO Work Phone: [facility] 03-05-2025 11:53-0400 Respiratory rate 16 /min Sanya Shin DO Work Phone: [facility] 03-05-2025 11:53-0400 SaO2% (BldA) [Mass fraction] 98 % Sanya Shin DO Work Phone: [facility] 03-04-2025 17:22-0400 Body height 179.1 cm Sanya Shin DO Work Phone: [facility] 03-04-2025 17:22-0400 Body mass index (BMI) [Ratio] 32.59 kg/m2 Sanya Shin DO Work Phone: [facility] 03-04-2025 17:22-0400 Body weight 104.5 kg Sanya Shin DO Work Phone: [facility] 02-28-2025 02:36-0400 Diastolic blood pressure 87 mm[Hg] Nestor Beasley MD Work Phone: [facility] 02-28-2025 02:36-0400 Heart rate 54 /min Nestor Beasley MD Work Phone: [facility] 02-28-2025 02:36-0400 Respiratory rate 18 /min Nestor Beasley MD Work Phone: [facility] 02-28-2025 02:36-0400 SaO2% (BldA) [Mass fraction] 97 % Nestor Beasley MD Work Phone: [facility] 02-28-2025 02:36-0400 Systolic blood pressure 164 mm[Hg] Nestor Beasley MD Work Phone: [facility] 02-28-2025 01:58-0400 Body temperature 96.8 [degF] Nestor Beasley MD Work Phone: [facility] 02-28-2025 01:41-0400 Body mass index (BMI) [Ratio] 33 kg/m2 Nestor Beasley MD Work Phone: [facility] 02-28-2025 01:41-0400 Body weight 104.33 kg Nestor Beasley MD Work Phone: [facility] 02-02-2025 14:01-0400 Body height 177.8 cm Nima Fay MD Work Phone: [facility] 02-02-2025 14:01-0400 Body mass index (BMI) [Ratio] 33.43 kg/m2 Nima Fay MD Work Phone: [facility] 02-02-2025 14:01-0400 Body weight 105.69 kg Nima Fay MD Work Phone: [facility] 02-02-2025 14:01-0400 Diastolic blood pressure 68 mm[Hg] Nima Fay MD Work Phone: [facility] 02-02-2025 14:01-0400 Heart rate 56 /min Nima Fay MD Work Phone: [facility] 02-02-2025 14:01-0400 SaO2% (BldA) [Mass fraction] 94 % Nima Fay MD Work Phone: [facility] 02-02-2025 14:01-0400 Systolic blood pressure 142 mm[Hg] Nima Fay MD Work Phone: [facility] 01-29-2025 10:56-0400 Body mass index (BMI) [Ratio] 34.03 kg/m2 Adriana Howell DO Work Phone: [facility] 01-29-2025 10:56-0400 Body weight 107.59 kg Adriana Howell DO Work Phone: [facility] 01-29-2025 10:56-0400 Diastolic blood pressure 70 mm[Hg] Adriana Howell DO Work Phone: [facility] 01-29-2025 10:56-0400 Heart rate 60 /min Adriana Howell DO Work Phone: [facility] 01-29-2025 10:56-0400 SaO2% (BldA) [Mass fraction] 96 % Adriana Howell DO Work Phone: [facility] 01-29-2025 10:56-0400 Systolic blood pressure 136 mm[Hg] Adriana Howell DO Work Phone: [facility] 01-19-2025 13:50-0400 Diastolic blood pressure 74 mm[Hg] Nima Fay MD Work Phone: [facility] 01-19-2025 13:50-0400 Heart rate 68 /min Nima Fay MD Work Phone: [facility] 01-19-2025 13:50-0400 Respiratory rate 16 /min Nima Fay MD Work Phone: [facility] 01-19-2025 13:50-0400 SaO2% (BldA) [Mass fraction] 99 % Nima Fay MD Work Phone: [facility] 01-19-2025 13:50-0400 Systolic blood pressure 160 mm[Hg] Nima Fay MD Work Phone: [facility] 01-19-2025 07:42-0400 Body height 177.8 cm Nima Fay MD Work Phone: [facility] 01-19-2025 07:42-0400 Body mass index (BMI) [Ratio] 33.69 kg/m2 Nima Fay MD Work Phone: [facility] 01-19-2025 07:42-0400 Body temperature 97 [degF] Nima Fay MD Work Phone: [facility] 01-19-2025 07:42-0400 Body weight 106.5 kg Nima Fay MD Work Phone: [facility] 12-08-2024 14:01-0400 Body height 177.8 cm Nima Fay MD Work Phone: [facility] 12-08-2024 14:01-0400 Body mass index (BMI) [Ratio] 32.36 kg/m2 Nima Fay MD Work Phone: [facility] 12-08-2024 14:01-0400 Body weight 102.29 kg Nima Fay MD Work Phone: [facility] 12-08-2024 14:01-0400 Diastolic blood pressure 68 mm[Hg] Nima aFy MD Work Phone: [facility] 12-08-2024 14:01-0400 Heart rate 61 /min Nima Fay MD Work Phone: [facility] 12-08-2024 14:01-0400 SaO2% (BldA) [Mass fraction] 96 % Nima Fay MD Work Phone: [facility] 12-08-2024 14:01-0400 Systolic blood pressure 132 mm[Hg] Nima Fay MD Work Phone: [facility] 12-08-2024 10:54-0400 Body height 179.1 cm Daniel Almanzar MD Work Phone: [facility] 12-08-2024 10:54-0400 Body mass index (BMI) [Ratio] 31.69 kg/m2 Daniel Almanzar MD Work Phone: [phone] [place] [address] 12-08-2024 10:54-0400 Body weight 101.61 kg Daniel Almanzar MD Work Phone: [facility] 12-08-2024 10:54-0400 Diastolic blood pressure 60 mm[Hg] Daniel Almanzar MD Work Phone: [facility] 12-08-2024 10:54-0400 Heart rate 62 /min Daniel Almanzar MD Work Phone: [facility] 12-08-2024 10:54-0400 SaO2% (BldA) [Mass fraction] 97 % Daniel Almanzar MD Work Phone: [facility] 12-08-2024 10:54-0400 Systolic blood pressure 120 mm[Hg] Daniel Almanzar MD Work Phone: [facility] 11-24-2024 16:33-0500 Body height 179.1 cm Daniel Almanzar MD Work Phone: [facility] 11-24-2024 16:33-0500 Body mass index (BMI) [Ratio] 33.27 kg/m2 Daniel Almanzar MD Work Phone: [facility] 11-24-2024 16:33-0500 Body weight 106.69 kg Daniel Almanzar MD Work Phone: [facility] 11-24-2024 16:33-0500 Diastolic blood pressure 60 mm[Hg] Daniel Almanzar MD Work Phone: [facility] 11-24-2024 16:33-0500 Heart rate 59 /min Daniel Almanzar MD Work Phone: [facility] 11-24-2024 16:33-0500 SaO2% (BldA) [Mass fraction] 96 % Daniel Almanzar MD Work Phone: [facility] Comment on above: RA 11-24-2024 16:33-0500 Systolic blood pressure 124 mm[Hg] Daniel Almanzar MD Work Phone: [facility] 10-31-2024 11:05-0500 Body height 179.1 cm Daniel Almanzar MD Work Phone: [facility] 10-31-2024 11:05-0500 Body mass index (BMI) [Ratio] 32.54 kg/m2 Daniel Almanzar MD Work Phone: [facility] 10-31-2024 11:05-0500 Body weight 104.33 kg Daniel Almanzar MD Work Phone: [facility] 10-31-2024 11:05-0500 Diastolic blood pressure 78 mm[Hg] Daniel Almanzar MD Work Phone: [facility] 10-31-2024 11:05-0500 Heart rate 54 /min Daniel Almanzar MD Work Phone: [facility] 10-31-2024 11:05-0500 SaO2% (BldA) [Mass fraction] 94 % Daniel Almanzar MD Work Phone: [facility] 10-31-2024 11:05-0500 Systolic blood pressure 126 mm[Hg] Daniel Almanzar MD Work Phone: [facility] 10-29-2024 09:54-0500 Body height 179.1 cm Adriana Howell DO Work Phone: [facility] 10-29-2024 09:54-0500 Body mass index (BMI) [Ratio] 33.44 kg/m2 Adriana Howell DO Work Phone: [facility] 10-29-2024 09:54-0500 Body weight 107.23 kg Adriana Howell DO Work Phone: [facility] 10-29-2024 09:54-0500 Diastolic blood pressure 68 mm[Hg] Adriana Howell DO Work Phone: [facility] 10-29-2024 09:54-0500 Heart rate 58 /min Adriana Howell DO Work Phone: [facility] 10-29-2024 09:54-0500 Systolic blood pressure 138 mm[Hg] Adriana Howell DO Work Phone: [facility] 10-20-2024 15:06-0500 Body temperature 97.9 [degF] Sanya Shin DO Work Phone: [facility] 10-20-2024 15:06-0500 Diastolic blood pressure 67 mm[Hg] Sanya Shin DO Work Phone: [facility] 10-20-2024 15:06-0500 SaO2% (BldA) [Mass fraction] 98 % Sanya Shin DO Work Phone: [facility] 10-20-2024 15:06-0500 Systolic blood pressure 158 mm[Hg] Sanya Shin DO Work Phone: [facility] 10-20-2024 09:57-0500 Heart rate 67 /min Sanya Shin DO Work Phone: [facility] 10-20-2024 07:05-0500 Respiratory rate 18 /min Sanya Shin DO Work Phone: [facility] 10-18-2024 21:30-0500 Body height 170.1 cm Sanya Shin DO Work Phone: [facility] 10-18-2024 21:30-0500 Body mass index (BMI) [Ratio] 38.12 kg/m2 Sanya Shin DO Work Phone: [facility] 10-18-2024 21:30-0500 Body weight 110.3 kg Sanya Shin DO Work Phone: [facility] 10-08-2024 13:16-0500 Body height 177.8 cm Caleb Lucia MD Work Phone: [facility] 10-08-2024 13:16-0500 Body mass index (BMI) [Ratio] 35.15 kg/m2 Caleb Lucia MD Work Phone: [facility] 10-08-2024 13:16-0500 Body weight 111.13 kg Caleb Lucia MD Work Phone: [facility] 10-08-2024 13:16-0500 Diastolic blood pressure 80 mm[Hg] Caleb Lucia MD Work Phone: [facility] 10-08-2024 13:16-0500 Respiratory rate 16 /min Caleb Lucia MD Work Phone: [facility] 10-08-2024 13:16-0500 Systolic blood pressure 140 mm[Hg] Caleb Lucia MD Work Phone: [facility] 10-01-2024 14:53-0500 Body height 177.8 cm Caleb Lucia MD Work Phone: [facility] 10-01-2024 14:53-0500 Body mass index (BMI) [Ratio] 33.15 kg/m2 Caleb Lucia MD Work Phone: [facility] 10-01-2024 14:53-0500 Body weight 104.78 kg Caleb Lucia MD Work Phone: [facility] 10-01-2024 14:53-0500 Diastolic blood pressure 72 mm[Hg] Caleb Lucia MD Work Phone: [facility] 10-01-2024 14:53-0500 Heart rate 58 /min Caleb Lucia MD Work Phone: [facility] 10-01-2024 14:53-0500 Systolic blood pressure 146 mm[Hg] Caleb Lucia MD Work Phone: [facility] 09-29-2024 09:49-0500 Body height 177.8 cm Adriana Howell DO Work Phone: [facility] 09-29-2024 09:49-0500 Body mass index (BMI) [Ratio] 33.23 kg/m2 Adriana Howell DO Work Phone: [facility] 09-29-2024 09:49-0500 Body weight 105.05 kg Adriana Howell DO Work Phone: [facility] 09-29-2024 09:49-0500 Diastolic blood pressure 82 mm[Hg] Adriana Howell DO Work Phone: [facility] 09-29-2024 09:49-0500 Heart rate 78 /min Adriana Howell DO Work Phone: [facility] 09-29-2024 09:49-0500 Systolic blood pressure 154 mm[Hg] Adriana Young DO Work Phone: [facility] 09-26-2024 12:13-0500 Diastolic blood pressure 66 mm[Hg] Daniel Almanzar MD Work Phone: [facility] 09-26-2024 12:13-0500 Heart rate 62 /min Daniel Almanzar MD Work Phone: [facility] 09-26-2024 12:13-0500 Respiratory rate 18 /min Daniel Almanzar MD Work Phone: [facility] 09-26-2024 12:13-0500 SaO2% (BldA) [Mass fraction] 96 % Daniel Almanzar MD Work Phone: [facility] 09-26-2024 12:13-0500 Systolic blood pressure 142 mm[Hg] Daniel Almanzar MD Work Phone: [facility] 09-26-2024 10:22-0500 Body height 177.8 cm Daniel Almanzar MD Work Phone: [facility] 09-26-2024 10:22-0500 Body mass index (BMI) [Ratio] 33 kg/m2 Daniel Almanzar MD Work Phone: [facility] 09-26-2024 10:22-0500 Body temperature 97.81 [degF] Daniel Almanzar MD Work Phone: [facility] 09-26-2024 10:22-0500 Body weight 104.33 kg Daniel Almanzar MD Work Phone: [facility] 09-11-2024 14:56-0500 Body height 177.8 cm Srikanth Howell APRN-HETAL SILVA Work Phone: [facility] 09-11-2024 14:56-0500 Body mass index (BMI) [Ratio] 33.89 kg/m2 Srikanth Jesse LARES-MINE ENGINEERING SUPERVISOR, DNP Work Phone: [facility] 09-11-2024 14:56-0500 Body weight 107.14 kg Srikanth Howell APRN-RICARDO, DNP Work Phone: [facility] 09-11-2024 14:56-0500 Diastolic blood pressure 66 mm[Hg] Srikanth Jesse DANIELSON, DNP Work Phone: [facility] 09-11-2024 14:56-0500 Heart rate 64 /min Srikanth Jesse DANIELSON, DNP Work Phone: [facility] 09-11-2024 14:56-0500 Systolic blood pressure 140 mm[Hg] Srikanth Jesse LARES-RICARDO, DNP Work Phone: [facility] 09-09-2024 10:16-0500 Body height 177.8 cm Daniel Almanzar MD Work Phone: [facility] 09-09-2024 10:16-0500 Body mass index (BMI) [Ratio] 34.26 kg/m2 Daniel Almanzar MD Work Phone: [facility] 09-09-2024 10:16-0500 Body weight 108.32 kg Daniel Almanzar MD Work Phone: [facility] 09-09-2024 10:16-0500 Diastolic blood pressure 84 mm[Hg] Daniel Almanzar MD Work Phone: [facility] 09-09-2024 10:16-0500 Heart rate 56 /min Daniel Almanzar MD Work Phone: [facility] 09-09-2024 10:16-0500 SaO2% (BldA) [Mass fraction] 100 % Daniel Almanzar MD Work Phone: [facility] 09-09-2024 10:16-0500 Systolic blood pressure 130 mm[Hg] Daniel Almanzar MD Work Phone: [facility] 06-16-2024 11:290400 Body height 177.8 cm Daniel Almanzar MD Work Phone: [facility] 06-16-2024 11:29-0400 Body mass index (BMI) [Ratio] 34.06 kg/m2 Daniel Almanzar MD Work Phone: [facility] 06-16-2024 11:29-040 Body weight 107.68 kg Daniel Almanzar MD Work Phone: [facility] 06-16-2024 11:29-0400 Diastolic blood pressure 62 mm[Hg] Daniel Almanzar MD Work Phone: [facility] 06-16-2024 11:29-0400 Heart rate 66 /min Daniel Almanzar MD Work Phone: [facility] 06-16-2024 11:29-0400 SaO2% (BldA) [Mass fraction] 99 % Daniel Almanzar MD Work Phone: [facility] 06-16-2024 11:29-0400 Systolic blood pressure 126 mm[Hg] Daniel Almanzar MD Work Phone: [facility] 05-29-2024 16:19-0400 Diastolic blood pressure 104 mm[Hg] Sanya Shin DO Work Phone: [facility] 05-29-2024 16:19-0400 Heart rate 65 /min Sanya Lemasters DO Work Phone: [facility] 05-29-2024 16:19-0400 Respiratory rate 18 /min Sanya Lemasters DO Work Phone: [facility] 05-29-2024 16:19-0400 SaO2% (BldA) [Mass fraction] 94 % Sanya Shin DO Work Phone: [facility] 05-29-2024 16:19-0400 Systolic blood pressure 165 mm[Hg] Sanya Lemgilson DO Work Phone: [facility] 05-29-2024 12:09040 Body height 177.8 cm Sanya Shin DO Work Phone: [facility] 05-29-2024 12:090400 Body mass index (BMI) [Ratio] 33 kg/m2 Sanya Shin DO Work Phone: [facility] 05-29-2024 12:040 Body temperature 98.1 [degF] Sanya Shin DO Work Phone: [facility] 05-29-2024 12:040 Body weight 104.33 kg Sanya Shin DO Work Phone: [facility] 05-08-2024 10:36-0400 Body height 177.8 cm Daniel Almanzar MD Work Phone: [facility] 05-08-2024 10:36-0400 Body mass index (BMI) [Ratio] 33.29 kg/m2 Daniel Almanzar MD Work Phone: [facility] 05-08-2024 10:36-0400 Body weight 105.23 kg Daniel Almanzar MD Work Phone: [facility] 05-08-2024 10:36-0400 Diastolic blood pressure 64 mm[Hg] Daniel Almanzar MD Work Phone: [facility] 05-08-2024 10:36-0400 Heart rate 68 /min Daniel Almanzar MD Work Phone: [facility] 05-08-2024 10:36-0400 SaO2% (BldA) [Mass fraction] 98 % Daniel Almanzar MD Work Phone: [facility] 05-08-2024 10:36-0400 Systolic blood pressure 124 mm[Hg] Daniel Almanzar MD Work Phone: [facility] 03-20-2024 10:18-0400 Body mass index (BMI) [Ratio] 34.23 kg/m2 Mary Junior DIESEL SERVICE APPRENTICE.MINE ENGINEERING SUPERVISOR Work Phone: [facility] 03-20-2024 10:18-0400 Body weight 109.77 kg Mary Junior DIESEL SERVICE APPRENTICE.MINE ENGINEERING SUPERVISOR Work Phone: [facility] 03-20-2024 10:18-0400 Heart rate 52 /min Mary Junior DIESEL SERVICE APPRENTICE.MINE ENGINEERING SUPERVISOR Work Phone: [facility] 03-20-2024 10:18-0400 SaO2% (BldA) [Mass fraction] 98 % Mary Junior DIESEL SERVICE APPRENTICE.MINE ENGINEERING SUPERVISOR Work Phone: [facility] 02-06-2024 10:35-0400 Body height 177.8 cm Daniel Almanzar MD Work Phone: [facility] 02-06-2024 10:35-0400 Body mass index (BMI) [Ratio] 34.77 kg/m2 Daniel Almanzar MD Work Phone: [facility] 02-06-2024 10:35-0400 Body weight 109.91 kg Daniel Almanzar MD Work Phone: [facility] 02-06-2024 10:35-0400 Diastolic blood pressure 54 mm[Hg] Daniel Almanzar MD Work Phone: [facility] 02-06-2024 10:35-0400 Heart rate 52 /min Daniel Almanzar MD Work Phone: [facility] 02-06-2024 10:35-0400 SaO2% (BldA) [Mass fraction] 100 % Daniel Almanzar MD Work Phone: [facility] 02-06-2024 10:35-0400 Systolic blood pressure 128 mm[Hg] Daniel Almanzar MD Work Phone: [facility] 12-07-2023 10:53-0400 Body height 177.8 cm Daniel Almanzar MD Work Phone: [facility] 12-07-2023 10:53-0400 Body mass index (BMI) [Ratio] 34.51 kg/m2 Daniel Almanzar MD Work Phone: [facility] 12-07-2023 10:53-0400 Body weight 109.09 kg Daniel Almanzar MD Work Phone: [facility] 12-07-2023 10:53-0400 Diastolic blood pressure 70 mm[Hg] Daniel Almanzar MD Work Phone: [facility] 12-07-2023 10:53-0400 Heart rate 95 /min Daniel Almanzar MD Work Phone: 3(536)564-849145 [place] [address] 12-07-2023 10:53-0400 SaO2% (BldA) [Mass fraction] 95 % Daniel Almanzar MD Work Phone: [facility] 12-07-2023 10:53-0400 Systolic blood pressure 118 mm[Hg] Daniel Alamnzar MD Work Phone: 8(747)184-185145 [place] [address] 10-03-2023 10:45-0500 Body height 177.8 cm Daniel Almanzar MD Work Phone: 0(943)280-723245 [place] [address] 10-03-2023 10:45-0500 Body mass index (BMI) [Ratio] 35.35 kg/m2 Daniel Almanzar MD Work Phone: 5(448)787-335045 [place] [address] 10-03-2023 10:45-0500 Body weight 111.77 kg Daniel Almanzar MD Work Phone: 0(492)357-622845 [place] [address] 10-03-2023 10:45-0500 Diastolic blood pressure 73 mm[Hg] Daniel Almanzar MD Work Phone: 3(722)596-945745 [place] [address] 10-03-2023 10:45-0500 Heart rate 69 /min Daniel Almanzar MD Work Phone: 8(131)516-002345 [place] [address] 10-03-2023 10:45-0500 SaO2% (BldA) [Mass fraction] 95 % Daniel Almanzar MD Work Phone: 3(157)529-258845 [place] [address] 10-03-2023 10:45-0500 Systolic blood pressure 146 mm[Hg] Daniel Almanzar MD Work Phone: [facility] 08-28-2023 12:04-0500 Body height 177.8 cm Kapil Orozco MD Work Phone: [facility] 08-28-2023 12:04-0500 Body mass index (BMI) [Ratio] 35.58 kg/m2 Kapil Orozco MD Work Phone: [facility] 08-28-2023 12:04-0500 Body weight 112.49 kg Kapil Orozco MD Work Phone: [facility] 08-03-2023 10:44-0500 Body height 179.1 cm Daniel Almanzar MD Work Phone: [facility] 08-03-2023 10:44-0500 Body mass index (BMI) [Ratio] 34.81 kg/m2 Daniel Almanzar MD Work Phone: [facility] 08-03-2023 10:44-0500 Body weight 111.63 kg Daniel Almanzar MD Work Phone: [facility] 08-03-2023 10:44-0500 Diastolic blood pressure 68 mm[Hg] Daniel Almanzar MD Work Phone: [facility] 08-03-2023 10:44-0500 Heart rate 62 /min Daniel Almanzar MD Work Phone: [facility] 08-03-2023 10:44-0500 SaO2% (BldA) [Mass fraction] 97 % Daniel Almanzar MD Work Phone: [facility] 08-03-2023 10:44-0500 Systolic blood pressure 136 mm[Hg] Daniel Almanzar MD Work Phone: [facility] 07-02-2023 10:45-0400 Body height 179.1 cm Daniel Almanzar MD Work Phone: [facility] 07-02-2023 10:45-0400 Body mass index (BMI) [Ratio] 34.02 kg/m2 Daniel Almanzar MD Work Phone: [facility] 07-02-2023 10:45-0400 Body weight 109.09 kg Daniel Almanzar MD Work Phone: 9(100)820-274345 [place] [address] 07-02-2023 10:45-0400 Diastolic blood pressure 76 mm[Hg] Daniel Almanzar MD Work Phone: 8(299)556-926073 [address] 07-02-2023 10:45-0400 Heart rate 64 /min Daniel Almanzar MD Work Phone: 5(959)984-609945 [place] [address] 07-02-2023 10:45-0400 SaO2% (BldA) [Mass fraction] 97 % Daniel Almanzar MD Work Phone: 8(534)716-521545 [place] [address] 07-02-2023 10:45-0400 Systolic blood pressure 140 mm[Hg] Daniel Almanzar MD Work Phone: 3(287)167-745073 [address] 05-16-2023 08:31-0400 Body height 179.1 cm Daniel Almanzar MD Work Phone: 7(811)623-975273 [address] 05-16-2023 08:31-0400 Body mass index (BMI) [Ratio] 34.9 kg/m2 Daniel Almanzar MD Work Phone: 4(412)428-508945 [place] [address] 05-16-2023 08:31-0400 Body weight 111.9 kg Daniel Almanzar MD Work Phone: 9(574)790-404373 [address] 05-16-2023 08:31-0400 Diastolic blood pressure 58 mm[Hg] Daniel Almanzar MD Work Phone: 8(638)112-815773 [address] 05-16-2023 08:31-0400 Heart rate 56 /min Daniel Almanzar MD Work Phone: 1(785)654-399545 [place] [address] 05-16-2023 08:31-0400 SaO2% (BldA) [Mass fraction] 95 % Daniel Almanzar MD Work Phone: 5(738)991-264445 [place] [address] 05-16-2023 08:31-0400 Systolic blood pressure 110 mm[Hg] Daniel Almanzar MD Work Phone: [facility] 05-02-2023 08:37-0400 Body height 179.1 cm Daniel Almanzar MD Work Phone: [facility] 05-02-2023 08:37-0400 Body mass index (BMI) [Ratio] 34.3 kg/m2 Daniel Almanzar MD Work Phone: [facility] 05-02-2023 08:37-0400 Body weight 110 kg Daniel Almanzar MD Work Phone: [facility] 05-02-2023 08:37-0400 Diastolic blood pressure 68 mm[Hg] Daniel Almanzar MD Work Phone: [facility] 05-02-2023 08:37-0400 Heart rate 75 /min Daniel Almanzar MD Work Phone: [facility] 05-02-2023 08:37-0400 SaO2% (BldA) [Mass fraction] 99 % Daniel Almanzar MD Work Phone: [facility] 05-02-2023 08:37-0400 Systolic blood pressure 142 mm[Hg] Daniel Almanzar MD Work Phone: [facility] 04-06-2023 10:11-0400 Body height 179.1 cm Mary Junior DIESEL SERVICE APPRENTICE.MINE ENGINEERING SUPERVISOR Work Phone: [facility] 04-06-2023 10:11-0400 Body weight 108.45 kg Mary Junior DIESEL SERVICE APPRENTICE.MINE ENGINEERING SUPERVISOR Work Phone: [facility] 04-06-2023 10:11-0400 Heart rate 81 /min Mary Junior DIESEL SERVICE APPRENTICE.MINE ENGINEERING SUPERVISOR Work Phone: [facility] 04-06-2023 10:11-0400 SaO2% (BldA) [Mass fraction] 98 % Mary Junior DIESEL SERVICE APPRENTICE.MINE ENGINEERING SUPERVISOR Work Phone: [facility] 04-02-2023 10:34-0400 Body height 179.1 cm Daniel Almanzar MD Work Phone: [facility] 04-02-2023 10:34-0400 Body mass index (BMI) [Ratio] 33.3 kg/m2 Daniel Almanzar MD Work Phone: [facility] 04-02-2023 10:34-0400 Body weight 106.78 kg Daniel Almanzar MD Work Phone: [facility] 04-02-2023 10:34-0400 Diastolic blood pressure 72 mm[Hg] Daniel Almanzar MD Work Phone: [facility] 04-02-2023 10:34-0400 Heart rate 76 /min Daniel Almanzar MD Work Phone: [facility] 04-02-2023 10:34-0400 SaO2% (BldA) [Mass fraction] 95 % Daniel Almanzar MD Work Phone: [facility] 04-02-2023 10:34-0400 Systolic blood pressure 165 mm[Hg] Daniel Almanzar MD Work Phone: [facility] 03-28-2023 15:30-0400 Diastolic blood pressure 72 mm[Hg] Daniel Almanzar Other Phone: [facility] 03-28-2023 15:30-0400 Heart rate 61 /min Daniel Almanzar Other Phone: [facility] 03-28-2023 15:30-0400 Respiratory rate 16 /min Daniel Almanzar Other Phone: [facility] 03-28-2023 15:30-0400 SaO2% (BldA) [Mass fraction] 95 % Daniel Almanzar Other Phone: [facility] 03-28-2023 15:30-0400 Systolic blood pressure 169 mm[Hg] Daniel Almanzar Other Phone: [facility] 03-28-2023 11:26-0400 Body height 179 cm Daniel Almanzar Other Phone: [facility] 03-28-2023 11:26-0400 Body temperature 97.16 [degF] Daniel Almanzar Other Phone: [facility] 03-28-2023 11:26-0400 Body weight 107 kg Daniel Almanzar Other Phone: [facility] 03-22-2023 15:11-0400 Body mass index (BMI) [Ratio] 34.09 kg/m2 Daniel Almanzar Work Phone: [facility] Work Phone: 03-22-2023 15:11-0400 Body surface area Derived from formula 2.27 m2 Daniel Almanzar Work Phone: [facility] Work Phone: 03-22-2023 15:11-0400 Body temperature 97.1 [degF] Daniel Almanzar Work Phone: [facility] Work Phone: 03-22-2023 15:11-0400 Body weight 109.32 kg Daniel Almanzar Work Phone: [facility] Work Phone: 02-22-2023 09:48-0400 Body height 179.1 cm Daniel Almanzar MD Work Phone: [facility] 02-22-2023 09:48-0400 Body mass index (BMI) [Ratio] 33.95 kg/m2 Daniel Almanzar MD Work Phone: [facility] 02-22-2023 09:48-0400 Body weight 108.86 kg Daniel Almanzar MD Work Phone: [facility] 02-22-2023 09:48-0400 Diastolic blood pressure 78 mm[Hg] Daniel Almanzar MD Work Phone: [facility] 02-22-2023 09:48-0400 Heart rate 75 /min Daniel Almanzar MD Work Phone: [facility] 02-22-2023 09:48-0400 SaO2% (BldA) [Mass fraction] 96 % Daniel Almanzar MD Work Phone: [facility] 02-22-2023 09:48-0400 Systolic blood pressure 132 mm[Hg] Daniel Almanzar MD Work Phone: [facility] 01-03-2023 09:54-0400 Body height 177.8 cm Mary Junior DIESEL SERVICE APPRENTICE.MINE ENGINEERING SUPERVISOR Work Phone: [facility] 01-03-2023 09:54-0400 Body weight 110.27 kg Mary Junior DIESEL SERVICE APPRENTICE.MINE ENGINEERING SUPERVISOR Work Phone: [facility] 01-03-2023 09:54-0400 Heart rate 87 /min Mary Junior DIESEL SERVICE APPRENTICE.MINE ENGINEERING SUPERVISOR Work Phone: [facility] 01-03-2023 09:54-0400 SaO2% (BldA) [Mass fraction] 97 % Mary Junior DIESEL SERVICE APPRENTICE.MINE ENGINEERING SUPERVISOR Work Phone: [facility] 11-20-2022 12:06-0500 Body weight 108.41 kg Mary Junior DIESEL SERVICE APPRENTICE.MINE ENGINEERING SUPERVISOR Work Phone: [facility] 11-20-2022 12:06-0500 Heart rate 81 /min Mary Junior DIESEL SERVICE APPRENTICE.MINE ENGINEERING SUPERVISOR Work Phone: [facility] 11-20-2022 12:06-0500 SaO2% (BldA) [Mass fraction] 96 % Mary Junior DIESEL SERVICE APPRENTICE.MINE ENGINEERING SUPERVISOR Work Phone: [facility] 11-16-2022 09:24-0500 Body height 179.07 cm Daniel Almanzar Work Phone: [facility] Work Phone: 11-16-2022 09:24-0500 Body mass index (BMI) [Ratio] 32.96 kg/m2 Daniel Almanzar Work Phone: [facility] Work Phone: 11-16-2022 09:24-0500 Body surface area Derived from formula 2.24 m2 Daniel Hodgesess Work Phone: [facility] Work Phone: 11-16-2022 09:24-0500 Body weight 105.69 kg Daniel Hodgesess Work Phone: [facility] Work Phone: 11-16-2022 09:24-0500 Diastolic blood pressure 98 mm[Hg] Daniel Hodgesess Work Phone: [facility] Work Phone: 11-16-2022 09:24-0500 Heart rate 91 /min Daniel Almanzar Work Phone: [facility] Work Phone: 11-16-2022 09:24-0500 Systolic blood pressure 136 mm[Hg] Daniel Almanzar Work Phone: [facility] Work Phone: 11-14-2022 09:39-0500 Body height 179.07 cm Daniel Almanzar Work Phone: [facility] Work Phone: 11-14-2022 09:39-0500 Body mass index (BMI) [Ratio] 33.02 kg/m2 Daniel Almanzar Work Phone: [facility] Work Phone: 11-14-2022 09:39-0500 Body surface area Derived from formula 2.24 m2 Daniel Hodgesess Work Phone: [facility] [facility] Work Phone: 11-14-2022 09:39-0500 Body weight 105.89 kg Daniel Almanzar Work Phone: [facility] Work Phone: 11-14-2022 09:39-0500 Diastolic blood pressure 78 mm[Hg] Daniel Almanzar Work Phone: [facility] Work Phone: 11-14-2022 09:39-0500 Heart rate 86 /min Daniel Almanzar Work Phone: [facility] Work Phone: 11-14-2022 09:39-0500 SaO2% (BldA) [Mass fraction] 96 % Daniel Almanzar Work Phone: [employer] [facility] Work Phone: 11-14-2022 09:39-0500 Systolic blood pressure 126 mm[Hg] Daniel Almanzar Work Phone: [employer] [facility] Work Phone: 10-26-2022 10:13-0500 Body height 179.07 cm Daniel Almanzar Work Phone: [facility] Work Phone: 10-26-2022 10:13-0500 Body mass index (BMI) [Ratio] 33.53 kg/m2 Daniel Hodgesess Work Phone: [facility] Work Phone: 10-26-2022 10:13-0500 Body surface area Derived from formula 2.26 m2 Daniel Hodgesess Work Phone: [facility] Work Phone: 10-26-2022 10:13-0500 Body weight 107.5 kg Daniel Hodgesess Work Phone: [facility] Work Phone: 10-26-2022 10:13-0500 Diastolic blood pressure 84 mm[Hg] Daniel Vázquez Furness Work Phone: [facility] Work Phone: 10-26-2022 10:13-0500 Heart rate 92 /min Daniel Almanzar Work Phone: [facility] Work Phone: 10-26-2022 10:13-0500 Systolic blood pressure 132 mm[Hg] Daniel Almanzar Work Phone: [facility] Work Phone: 08-07-2022 10:08-0500 Body height 179.07 cm Daniel Almanzar Work Phone: -[employer] [facility] Work Phone: 08-07-2022 10:08-0500 Body mass index (BMI) [Ratio] 33.39 kg/m2 Daniel Almanzar Work Phone: [facility] [facility] Work Phone: 08-07-2022 10:08-0500 Body surface area Derived from formula 2.25 m2 Daniel Almanzar Work Phone: [employer] [facility] Work Phone: 08-07-2022 10:08-0500 Body weight 107.08 kg Daniel Almanzar Work Phone: [employer] [facility] Work Phone: 08-07-2022 10:08-0500 Diastolic blood pressure 68 mm[Hg] Daniel Almanzar Work Phone: [employer] [facility] Work Phone: 08-07-2022 10:08-0500 Heart rate 90 /min Daniel Almanzar Work Phone: [facility] [facility] Work Phone: 08-07-2022 10:08-0500 SaO2% (BldA) [Mass fraction] 98 % Daniel Almanzar Work Phone: [facility] Work Phone: 08-07-2022 10:08-0500 Systolic blood pressure 112 mm[Hg] Daniel Almanzar Work Phone: [facility] Work Phone: 07-03-2022 10:18-0400 Body height 179.07 cm Daniel Almanzar Work Phone: [facility] Work Phone: 07-03-2022 10:18-0400 Body mass index (BMI) [Ratio] 33.43 kg/m2 Daniel Almanzar Work Phone: [facility] Work Phone: 07-03-2022 10:18-0400 Body surface area Derived from formula 2.25 m2 Daniel Almanzar Work Phone: [facility] Work Phone: 07-03-2022 10:18-0400 Body weight 107.19 kg Daniel Almanzar Work Phone: [facility] Work Phone: 07-03-2022 10:18-0400 Diastolic blood pressure 78 mm[Hg] Daniel Almanzar Work Phone: [facility] Work Phone: 07-03-2022 10:18-0400 Heart rate 98 /min Daniel Almanzar Work Phone: [facility] Work Phone: 07-03-2022 10:18-0400 SaO2% (BldA) [Mass fraction] 97 % Daniel Almanzar Work Phone: [facility] Work Phone: 07-03-2022 10:18-0400 Systolic blood pressure 126 mm[Hg] Daniel Almaznar Work Phone: [facility] Work Phone: 05-23-2022 09:47-0400 Body height 179.07 cm Daniel Almanzar Work Phone: [facility] Work Phone: 05-23-2022 09:47-0400 Body mass index (BMI) [Ratio] 33.59 kg/m2 Daniel Almanzar Work Phone: [facility] Work Phone: 05-23-2022 09:47-0400 Body surface area Derived from formula 2.26 m2 Daniel Almanzar Work Phone: [facility] Work Phone: 05-23-2022 09:47-0400 Body weight 107.7 kg Daniel Almanzar Work Phone: [facility] Work Phone: 05-23-2022 09:47-0400 Diastolic blood pressure 66 mm[Hg] Daniel Almanzar Work Phone: [facility] Work Phone: 05-23-2022 09:47-0400 Heart rate 86 /min Daniel Almanzar Work Phone: [facility] Work Phone: 05-23-2022 09:47-0400 SaO2% (BldA) [Mass fraction] 98 % Daniel Almanzar Work Phone: [facility] Work Phone: 05-23-2022 09:47-0400 Systolic blood pressure 122 mm[Hg] Daniel Almanzar Work Phone: [facility] Work Phone: 05-08-2022 09:00-0400 Body height 179.07 cm Daniel Almanzar Work Phone: [facility] Work Phone: 05-08-2022 09:00-0400 Body mass index (BMI) [Ratio] 34.14 kg/m2 Daniel Almanzar Work Phone: [facility] Work Phone: 05-08-2022 09:00-0400 Body surface area Derived from formula 2.27 m2 Daniel Almanzar Work Phone: [facility] Work Phone: 05-08-2022 09:00-0400 Body weight 109.46 kg Daniel Almanzar Work Phone: [facility] Work Phone: 05-08-2022 09:00-0400 Diastolic blood pressure 64 mm[Hg] Daniel Almanzar Work Phone: [facility] Work Phone: 05-08-2022 09:00-0400 Heart rate 104 /min Daniel Almanzar Work Phone: [facility] Work Phone: 05-08-2022 09:00-0400 SaO2% (BldA) [Mass fraction] 97 % Daniel Almanzar Work Phone: [facility] [employer] [facility] Work Phone: 05-08-2022 09:00-0400 Systolic blood pressure 132 mm[Hg] Daniel Almanzar Work Phone: [facility] Work Phone: 04-06-2022 08:20-0400 Body height 179.07 cm Daniel Almanzar Work Phone: [facility] Work Phone: 04-06-2022 08:20-0400 Body mass index (BMI) [Ratio] 35.3 kg/m2 Daniel Almanzar Work Phone: [facility] Work Phone: 04-06-2022 08:20-0400 Body surface area Derived from formula 2.31 m2 Daniel Almanzar Work Phone: [facility] Work Phone: 04-06-2022 08:20-0400 Body weight 113.2 kg Daniel Almanzar Work Phone: [facility] Work Phone: 04-06-2022 08:20-0400 Diastolic blood pressure 74 mm[Hg] Daniel Almanzar Work Phone: [facility] Work Phone: 04-06-2022 08:20-0400 Heart rate 78 /min Daniel Almanzar Work Phone: [facility] Work Phone: 04-06-2022 08:20-0400 SaO2% (BldA) [Mass fraction] 95 % Daniel Almanzar Work Phone: [facility] Work Phone: 04-06-2022 08:20-0400 Systolic blood pressure 130 mm[Hg] Daniel Almanzar Work Phone: [facility] Work Phone: 10-07-2021 08:19-0500 Body height 179.07 cm Daniel Almanzar Work Phone: [facility] Work Phone: 10-07-2021 08:19-0500 Body mass index (BMI) [Ratio] 35.69 kg/m2 Daniel Almanzar Work Phone: [facility] Work Phone: 10-07-2021 08:19-0500 Body surface area Derived from formula 2.32 m2 Daniel Almanzar Work Phone: [facility] Work Phone: 10-07-2021 08:19-0500 Body temperature 96.4 [degF] Daneil Almanzar Work Phone: [facility] Work Phone: 10-07-2021 08:19-0500 Body weight 114.45 kg Daniel Almanzar Work Phone: [facility] Work Phone: 10-07-2021 08:19-0500 Diastolic blood pressure 72 mm[Hg] Daniel Almanzar Work Phone: [facility] Work Phone: 10-07-2021 08:19-0500 Heart rate 89 /min Daniel Almanzar Work Phone: [facility] Work Phone: 10-07-2021 08:19-0500 SaO2% (BldA) [Mass fraction] 100 % aDniel Almanzar Work Phone: [facility] Work Phone: 10-07-2021 08:19-0500 Systolic blood pressure 134 mm[Hg] Daniel Almanzar Work Phone: [facility] Work Phone: 04-06-2021 08:26-0400 Body height 179.07 cm Daniel Almanzar Work Phone: [facility] Work Phone: 04-06-2021 08:26-0400 Body mass index (BMI) [Ratio] 33.95 kg/m2 Daniel Almanzar Work Phone: [facility] Work Phone: 04-06-2021 08:26-0400 Body surface area Derived from formula 2.27 m2 Daniel Almanzar Work Phone: [facility] Work Phone: 04-06-2021 08:26-0400 Body temperature 97.3 [degF] Daniel Almanzar Work Phone: [facility] Work Phone: 04-06-2021 08:26-0400 Body weight 108.86 kg Daniel Almanzar Work Phone: [facility] Work Phone: 04-06-2021 08:26-0400 Diastolic blood pressure 82 mm[Hg] Daniel Almanzar Work Phone: [facility] Work Phone: 04-06-2021 08:26-0400 Heart rate 85 /min Daniel Almanzar Work Phone: [facility] [facility] Work Phone: 04-06-2021 08:26-0400 SaO2% (BldA) [Mass fraction] 98 % Daniel Almanzar Work Phone: [facility] [facility] Work Phone: 04-06-2021 08:26-0400 Systolic blood pressure 134 mm[Hg] Daniel Almanzar Work Phone: [facility] [facility] Work Phone: Encounters Encounter Date Encounter Type Care Provider Facility Start: 07-26-2025 ambulatory Indigo Salmonkarly Facility:[facility] Start: 07-26-2025 Evaluation and manag ement of inpatient Daniel Almanzar Facility:[facility] Start: 07-22-2025 Evaluation and manag ement of inpatient [facility] Start: 07-13-2025 End: 07-26-2025 Encounter for other specified special examinations ADRIEL CORTEZ [facility] Start: 07-13-2025 End: 07-26-2025 Evaluation and management of inpatient Dorothy Barbosa MD Work Phone: [facility] Start: 07-13-2025 End: 07-26-2025 Patient encounter status Dorothy Barbosa MD Work Phone: [facility] Work Phone: Start: 07-01-2025 End: 07-01-2025 Office outpatient new 60 minutes Josef Rodrigues MD Work Phone: [facility] Comment on above: Nonrheumatic aortic (valve) stenosis (Primary Dx) Severe aortic stenos is (Primary Dx) Start: 07-01-2025 End: 07-01-2025 ambulatory JOSEF ACUÑAKSPADMINI [facility] Start: 06-16-2025 End: 06-16-2025 Subsequent hospital visit by physician Keith Ugarte [address] [facility] Comment on above: Nonrheumatic aortic (valve) stenosis Start: 06-16-2025 End: 06-16-2025 ambulatory DOROTHY BARBOSA [facility] Start: 04-21-2025 End: 04-21-2025 Office outpatient visit 40 minutes Nima Fay MD Work Phone: [facility] Comment on above: Nonrheumatic aortic valve stenosis (Primary Dx); Coronary artery disease involving [place] tribe coronary artery of [place] tribe heart without angina pectoris; Coronary artery disease status post coronary stent insertion; Edema of both legs; Primary hypertension; Non-rheumatic aortic stenosis; Mixed hyperlipidemia; Type 2 diabetes mellitus with stage 4 chronic kidney disease, with long-term current use of insulin (Multi); Hx of heart artery stent; Atherosclerosis; Obesity, unspecified class, unspecified obesity type, unspecified whether serious comorbidity present Start: 04-21-2025 End: 04-21-2025 ambulatory NIMA FAY [facility] Ambulatory Start: 04-16-2025 End: 04-16-2025 Postop follow up visit related to original px Matilde Regan MD Work Phone: 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 [place] Comment on above: Enlarged prostate wi th urinary obstruction (Primary Dx) Start: 03-26-2025 End: 03-26-2025 ambulatory DEVENDRA [facility] Start: 03-26-2025 End: 03-26-2025 Office outpatient visit 15 minutes Matilde Regan MD Work Phone: 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); Urinary retention Start: 03-26-2025 End: 03-26-2025 ambulatory [facility] Start: 03-23-2025 End: 03-23-2025 ambulatory [facility] Start: 03-17-2025 End: 03-17-2025 Emergency department patient visit Gopi Vergara DO Work Phone: [facility] Comment on above: Dysuria (Primary Dx) Start: 03-11-2025 End: 03-11-2025 Transitional care manage srvc 7 day discharge Daniel Almanzar MD Work Phone: [facility] Comment on above: Bradycardia (Primary Dx); Primary hypertension; Type 2 diabetes mellitus with stage 4 chronic kidney disease, with long-term current use of insulin (Multi); Chronic kidney disease (CKD), stage IV (severe) (Multi) Start: 03-11-2025 End: 03-11-2025 ambulatory [facility] Ambulatory Start: 03-07-2025 End: 04-09-2025 ambulatory [facility] Start: 03-04-2025 End: 03-05-2025 ambulatory DANIEL Vázquez [facility] Start: 03-04-2025 End: 03-05-2025 Evaluation and management of inpatient Sanya La Clotilde DO Work Phone: [facility] 3 Comment on above: Bradycardia (Primary Dx); Symptomatic bradycardia; Type 2 diabetes mellitus with diabetic polyneuropathy, without long-term current use of insulin; Primary hypertension; Acute cystitis without hematuria Start: 03-02-2025 End: 03-02-2025 ambulatory [facility] Start: 02-28-2025 End: 02-28-2025 Emergency department patient visit Nestor Beasley MD Work Phone: [facility] Comment on above: Acute cystitis with hematuria (Primary Dx); Urinary retention Start: 02-27-2025 End: 02-27-2025 ambulatory [facility] Start: 02-25-2025 End: 02-25-2025 Office outpatient visit 25 minutes Matilde Regan MD Work Phone: 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); H/O heart artery stent Start: 02-25-2025 End: 02-25-2025 ambulatory MATILDE REGAN [facility] Start: 02-20-2025 End: 02-20-2025 ambulatory TATI PHOENIX [facility] Start: 02-13-2025 End: 02-13-2025 ambulatory DANIEL T Count includes the [facility] Ambulatory Start: 02-02-2025 End: 02-02-2025 Office outpatient visit 25 minutes Nima Fay MD Work Phone: [facility] Comment on above: Nonrheumatic aortic valve stenosis (Primary Dx); Coronary artery disease involving [place] tribe coronary artery of [place] tribe heart without angina pectoris; Coronary artery disease status post coronary stent insertion; Edema of both legs; Primary hypertension; Non-rheumatic aortic stenosis; Mixed hyperlipidemia; Type 2 diabetes mellitus with stage 4 chronic kidney disease, with long-term current use of insulin (Multi); Hx of heart artery stent; Atherosclerosis Start: 02-02-2025 End: 02-02-2025 ambulatory [facility] Start: 01-29-2025 End: 01-29-2025 Office outpatient visit 15 minutes Adriana Howell DO Work Phone: [facility] Comment on above: CKD stage 4 due to t ype 2 diabetes mellitus (Multi) (Primary Dx); Mixed hyperlipidemia; Primary hypertension; Type 2 diabetes mellitus with stage 4 chronic kidney disease, with long-term current use of insulin (Multi); Chronic kidney disease (CKD), stage IV (severe) (Multi) Start: 01-29-2025 End: 01-29-2025 ambulatory [facility] Ambulatory Start: 01-19-2025 End: 01-19-2025 ambulatory [facility] Start: 01-19-2025 End: 01-19-2025 Subsequent hospital visit by physician Nima Fay MD Work Phone: [facility] Comment on above: Nonrheumatic aortic valve stenosis (Primary Dx); Coronary artery disease involving [place] tribe coronary artery of [place] tribe heart without angina pectoris; Coronary artery disease status post coronary stent insertion Start: 01-12-2025 End: 01-12-2025 ambulatory [facility] Ambulatory Start: 12-15-2024 End: 12-15-2024 ambulatory [facility] Start: 12-08-2024 End: 12-08-2024 Office outpatient new 45 minutes Nima Fay MD Work Phone: [facility] Comment on above: Mixed hyperlipidemia (Primary Dx); Edema of both legs; Nonrheumatic aortic valve stenosis; Primary hypertension; Obesity, unspecified class, unspecified obesity type, unspecified whether serious comorbidity present; Type 2 diabetes mellitus with stage 4 chronic kidney disease, with long-term current use of insulin (Multi); Non-rheumatic aortic stenosis Start: 12-08-2024 End: 12-08-2024 ambulatory [facility] Start: 12-08-2024 End: 12-08-2024 Assay of hemosiderin, quant Daniel Almanzar MD Work Phone: [facility] Work Phone: Start: 12-08-2024 End: 12-08-2024 Patient encounter procedure Daniel Almanzar MD Work Phone: [facility] Comment on above: Routine general medi florence examination at health care facility (Primary Dx); Chronic kidney disease (CKD), stage IV (severe) (Multi); Type 2 diabetes mellitus with stage 4 chronic kidney disease, with long-term current use of insulin (Multi); Edema of both legs; Primary hypertension Start: 12-08-2024 End: 12-08-2024 ambulatory [facility] Start: 12-08-2024 End: 12-08-2024 Encounter for general adult medical examination without abnormal findings [facility] Ambulatory Start: 12-03-2024 End: 12-03-2024 Office outpatient visit 25 minutes Matilde Regan MD Work Phone: 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); Urinary retention Start: 11-17-2024 End: 11-17-2024 ambulatory DECLAN SALVADOR [facility] Start: 10-31-2024 End: 10-31-2024 Transitional care manage srvc 14 day discharge Daniel Almanzar MD Work Phone: [facility] Comment on above: Primary hypertension (Primary Dx); Type 2 diabetes mellitus with stage 4 chronic kidney disease, with long-term current use of insulin (Multi); Nonrheumatic aortic valve stenosis Start: 10-31-2024 End: 10-31-2024 ambulatory [facility] Start: 10-29-2024 End: 10-29-2024 Office outpatient visit 25 minutes Adriana Howell DO Work Phone: [facility] Comment on above: CKD stage 4 due to t ype 2 diabetes mellitus (Multi) (Primary Dx); Primary hypertension Start: 10-29-2024 End: 10-29-2024 ambulatory ADRIANA Melchor [facility] Ambulatory Start: 10-27-2024 ambulatory CALEB Back LUCIA [facility] Start: 10-22-2024 End: 01-25-2025 [facility] Start: 10-18-2024 End: 10-20-2024 ambulatory [facility] Start: 10-18-2024 End: 10-20-2024 Evaluation and management of inpatient Sanya Shin DO Work Phone: [facility] Comment on above: Fall, initial encoun ter (Primary Dx); Weakness; Syncope, unspecified syncope type; Anemia, unspecified type; Bradycardia; Hypotension, unspecified hypotension type; Hypoxia; Drug-induced sinus bradycardia; Unspecified atrial fibrillation (Multi); Bladder tumor; Lesion of bladder; Urinary retention; 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) Start: 10-08-2024 End: 10-08-2024 Patient encounter procedure Caleb Lucia MD Work Phone: [facility] Comment on above: Dysuria (Primary Dx) ; Lesion of bladder Start: 10-08-2024 End: 10-08-2024 ambulatory [facility] Amb[facility] Start: 10-01-2024 End: 10-01-2024 Office outpatient new 45 minutes Caleb Lucia MD Work Phone: [facility] Comment on above: 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); Nocturia; Urinary retention; Erectile dysfunction, unspecified erectile dysfunction type Start: 10-01-2024 End: 10-01-2024 ambulatory [facility] Ambulatory Start: 09-29-2024 End: 09-29-2024 Office outpatient visit 25 minutes Adriana Howell DO Work Phone: [facility] Comment on above: CKD stage 4 due to t ype 2 diabetes mellitus (Multi) (Primary Dx); Mixed hyperlipidemia; Primary hypertension; Type 2 diabetes mellitus with diabetic polyneuropathy, without long-term current use of insulin; Benign prostatic hyperplasia with urinary obstruction Start: 09-29-2024 End: 09-29-2024 ambulatory [facility] Amb[facility] Start: 09-26-2024 End: 09-26-2024 Emergency department patient visit DANIEL ALMANZAR [facility] Comment on above: Urinary retention (P rimary Dx); Glucosuria; Lesion of bladder Start: 09-26-2024 End: 09-26-2024 ambulatory DANIEL Vázquez [facility] Start: 09-23-2024 End: 09-23-2024 Subsequent hospital visit by physician [address] Comment on above: CKD stage 4 due to t ype 2 diabetes mellitus (Multi) Start: 09-23-2024 End: 09-23-2024 ambulatory [facility] Start: 09-11-2024 End: 09-11-2024 Office outpatient visit 25 minutes Srikanth Howell DIESEL SERVICE APPRENTICE-MINE ENGINEERING SUPERVISOR, DNP Work Phone: [facility] Comment on above: Primary hypertension (Primary Dx); 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); Mixed hyperlipidemia; Type 2 diabetes mellitus with diabetic polyneuropathy, without long-term current use of insulin Start: 09-11-2024 End: 09-11-2024 ambulatory [facility] Ambulatory Start: 09-09-2024 End: 09-09-2024 Office outpatient visit 25 minutes Daniel Almanzar MD Work Phone: [facility] Comment on above: Type 2 diabetes ivan itus with diabetic polyneuropathy, without long-term current use of insulin (Primary Dx); 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); Primary hypertension Start: 09-09-2024 End: 09-09-2024 ambulatory [facility] Amb[facility] Start: 09-05-2024 End: 09-05-2024 ambulatory [facility] Start: 07-18-2024 End: 07-18-2024 Office outpatient visit 25 minutes Kapil Orozco MD Work Phone: [facility] Comment on above: Chronic right should er pain Start: 07-18-2024 End: 07-18-2024 ambulatory [facility] Ambulatory Start: 07-18-2024 End: 07-18-2024 Subsequent hospital visit by physician [facility] [employer] [facility] Comment on above: Arrived Start: 06-16-2024 End: 06-16-2024 ambulatory [facility] Ambulatory Start: 06-16-2024 End: 06-16-2024 Office outpatient visit 15 minutes Daniel Almanzar MD Work Phone: [facility] Comment on above: Type 2 diabetes ivan itus with diabetic polyneuropathy, without long-term current use of insulin (Multi) Start: 06-05-2024 End: 06-05-2024 Office outpatient visit 25 minutes Kapil Orozco MD Work Phone: [facility] Comment on above: 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 Start: 06-05-2024 End: 06-05-2024 Subsequent hospital visit by physician [facility] [employer] [facility] Comment on above: Arrived Start: 05-29-2024 End: 05-29-2024 [facility] Start: 05-29-2024 End: 05-29-2024 Subsequent hospital visit by physician Cinthya Hannav1 [employer] [facility] Comment on above: Arrived Start: 05-29-2024 End: 05-29-2024 Emergency department patient visit Sanya Cristel Manceragilson DO Work Phone: [facility] Comment on above: Type 2 diabetes ivan itus without complication, unspecified whether group home insulin use (Multi) (Primary Dx); Hypoglycemia; Multiple skin tears; Hypokalemia Start: 05-08-2024 End: 05-08-2024 Office outpatient visit 25 minutes Daniel Almanzar MD Work Phone: [facility] Comment on above: Type 2 diabetes ivan itus with diabetic polyneuropathy, without long-term current use of insulin (Multi) (Primary Dx); Primary hypertension; Chronic renal impairment, stage 3b (Multi); Chronic GERD Start: 04-22-2024 End: 04-22-2024 ambulatory KAPIL OROZCO [facility] Start: 03-20-2024 Telephone encounter Rian Junior DO Work Phone: Vascular Surgery Start: 03-20-2024 End: 03-20-2024 ambulatory MARY JUNIOR Facility:[facility] Start: 03-20-2024 End: 03-20-2024 Patient encounter procedure Mary Junior DIESEL SERVICE APPRENTICE.MINE ENGINEERING SUPERVISOR Work Phone: Pain Management Comment on above: Diabetic peripheral neuropathy (HCC) Start: 03-05-2024 End: 03-05-2024 Subsequent hospital visit by physician [facility] [employer] [facility] Comment on above: Arrived Start: 03-04-2024 End: 03-04-2024 Office outpatient visit 25 minutes Kapil Orozco MD Work Phone: [facility] Comment on above: 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 Start: 02-06-2024 End: 02-06-2024 Office outpatient visit 25 minutes Daniel Almanzar MD Work Phone: [facility] Comment on above: Primary hypertension (Primary Dx); Type 2 diabetes mellitus with diabetic polyneuropathy, without long-term current use of insulin (Multi); Chronic renal impairment, stage 3b (Multi) Start: 01-22-2024 End: 01-22-2024 Subsequent hospital visit by physician [facility] [employer] Comment on above: Arrived Start: 01-22-2024 End: 01-22-2024 Subsequent hospital visit by physician Cinthya [email or web address] X-Ray [facility] Comment on above: 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 Start: 01-22-2024 End: 01-22-2024 Office outpatient visit 25 minutes Kapil Orozco MD Work Phone: [facility] Comment on above: 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 Start: 01-22-2024 End: 01-22-2024 Subsequent hospital visit by physician [facility] Ul[facility]ound [facility] [employer] Comment on above: Arrived Start: 12-07-2023 End: 12-07-2023 Office outpatient visit 25 minutes Daniel Almanzar MD Work Phone: [facility] Comment on above: Type 2 diabetes ivan itus with diabetic polyneuropathy, without long-term current use of insulin ([facility]) (Primary Dx); Primary hypertension Start: 10-03-2023 End: 10-03-2023 Office outpatient visit 25 minutes Daniel Almanzar MD Work Phone: [facility] Comment on above: Primary hypertension (Primary Dx); Type 2 diabetes mellitus with diabetic polyneuropathy, without long-term current use of insulin (CMS/HCC) Start: 10-02-2023 End: 10-02-2023 Office outpatient visit 15 minutes Kapil Orozco MD Work Phone: [facility] Comment on above: Chronic right should er pain Start: 09-19-2023 End: 09-19-2023 ambulatory DIEGO GORE Facility:[facility] Start: 08-30-2023 End: 08-30-2023 Subsequent hospital visit by physician Cinthya Farrar [facility] Comment on above: Chronic right should er pain Start: 08-28-2023 End: 08-28-2023 Office outpatient visit 25 minutes Kapil Orozco MD Work Phone: [facility] Comment on above: Chronic right should er pain (Primary Dx); Primary osteoarthritis of right shoulder Start: 08-03-2023 End: 08-03-2023 Office outpatient visit 25 minutes Daniel Almanzar MD Work Phone: [facility] Comment on above: Type 2 diabetes ivan itus with diabetic polyneuropathy, without long-term current use of insulin (CMS/HCC) (Primary Dx); Primary hypertension; Edema of both legs Start: 07-19-2023 End: 07-19-2023 Office outpatient visit 25 minutes Kapil Orozco MD Work Phone: [facility] Comment on above: Chronic pain of both shoulders (Primary Dx); Hip pain, bilateral Start: 07-02-2023 End: 07-02-2023 Office outpatient visit 25 minutes Daniel Almanzar MD Work Phone: [facility] Comment on above: Primary hypertension (Primary Dx); Type 2 diabetes mellitus with diabetic polyneuropathy, without long-term current use of insulin (CMS/HCC); Edema of both legs Start: 06-21-2023 Patient encounter procedure Daniel Almanzar Work Phone: [facility] Work Phone: Start: 05-16-2023 End: 05-16-2023 Office outpatient visit 25 minutes Daniel Almanzar MD Work Phone: [facility] Comment on above: Primary hypertension (Primary Dx); Type 2 diabetes mellitus with diabetic polyneuropathy, without long-term current use of insulin (CMS/HCC); Chronic renal impairment, stage 3b (CMS/HCC) Start: 05-09-[address] Daniel Lofton Facility:[id number] Start: 05-02-2023 End: 05-02-2023 Office outpatient visit 25 minutes Daniel Almanzar MD Work Phone: [facility] Comment on above: Mixed hyperlipidemia (Primary Dx); Primary hypertension; Type 2 diabetes mellitus with diabetic polyneuropathy, without long-term current use of insulin (CMS/HCC) Start: 04-26-2023 Office outpatient vi sit 25 minutes Daniel Almanzar Work Phone: [facility] Work Phone: Start: 04-06-2023 End: 04-06-2023 ambulatory MARY JUNIOR Facility:[facility] Start: 04-06-2023 End: 04-06-2023 Patient encounter procedure Mary Junior DIESEL SERVICE APPRENTICE.MINE ENGINEERING SUPERVISOR Work Phone: Pain Management Comment on above: Diabetic peripheral neuropathy (HCC) Start: 04-02-2023 End: 04-02-2023 Office outpatient visit 25 minutes Daniel Almanzar MD Work Phone: [facility] Comment on above: Primary hypertension (Primary Dx); TIA (transient ischemic attack); Type 2 diabetes mellitus with diabetic polyneuropathy, without long-term current use of insulin (CMS/HCC) Start: 03-28-2023 End: 03-28-2023 Emergency department patient visit Gopi John Vergara [facility] Emergency 02 Start: 03-22-[address] Daniel Lofton Facility:[id number] Start: 03-22-2023 Office outpatient vi sit 25 minutes Daniel Almanzar Work Phone: [facility] 300 Work Phone: Start: 03-22-2023 Patient encounter procedure Daniel Almanzar Work Phone: [facility] 300 Work Phone: Start: 03-20-2023 AUDIT Daniel rodas Work Phone: [facility] 300 Work Phone: Start: 02-22-2023 End: 02-22-2023 Office outpatient visit 25 minutes Daniel Almanzar MD Work Phone: [facility] Comment on above: Primary hypertension (Primary Dx); Mixed hyperlipidemia; Chronic right shoulder pain; Diabetic polyneuropathy associated with type 2 diabetes mellitus (CMS/HCC); Type 2 diabetes mellitus with diabetic polyneuropathy, without long-term current use of insulin (CMS/[facility]) Start: 01-23-2023 Refill Mary Quezada PRN.CNP Work Phone: Pain Management Start: 01-03-2023 End: 01-03-2023 Patient encounter procedure Mary Junior APRN.RICARDO Work Phone: Pain Management Comment on above: Bilateral shoulder p ain, unspecified chronicity (Primary Dx); Diabetic peripheral neuropathy (HCC); DDD (degenerative disc disease), cervical Start: 12-28-2022 Telephone encounter Mary rawls APRN.RICARDO Work Phone: Pain Management Comment on above: Results Start: 12-04-2022 ambulatory UNKNOWN PROVIDER Facili ty:[facility] Start: 12-04-2022 End: 12-04-2022 Subsequent hospital visit by physician [facility] Work Phone: Radiology Comment on above: Bilateral shoulder p ain, unspecified chronicity [M25.511, M25.512] Start: 12-04-2022 End: 12-04-2022 Patient encounter procedure Mary Junior APRN.MINE ENGINEERING SUPERVISOR Work Phone: Pain Management Comment on above: Bilateral shoulder p ain, unspecified chronicity (Primary Dx); DDD (degenerative disc disease), cervical; Diabetic peripheral neuropathy (HCC) Start: 11-20-2022 End: 11-20-2022 Patient encounter procedure Mary Junior APRN.MINE ENGINEERING SUPERVISOR Work Phone: Pain Management Comment on above: Diabetic peripheral neuropathy (HCC) Start: 11-16-2022 POV, Provider: Selina Bhakta, Status: Pen, Time: 11:15 AM Daniel Almanzar Work Phone: [facility] Work Phone: Start: 11-16-2022 Postop follow up vis it related to original px Daniel Almanzar Work Phone: [facility] Work Phone: Start: 11-14-2022 Adv care pln/ no alt dcsn mkr docd or refusal aDniel Almanzar Work Phone: [email or web address] [facility] Work Phone: Start: 11-14-2022 EPV, Provider: Daniel Almanzar, Status: Pen, Time: 9:40 AM Daniel Almanzar Work Phone: [facility] [facility] Work Phone: Start: 11-13-2022 Chart Update Daniel Hodges ess Work Phone: [email or web address] [facility] Work Phone: Start: 11-01-2022 End: 11-01-[address] Selina Bhakta Facility:[id number] Start: 10-26-2022 Office consultation new/estab patient 40 min Daniel Almanzar Work Phone: [facility] Work Phone: Start: 08-07-2022 Office outpatient vi sit 25 minutes Daniel Almanzar Work Phone: [email or web address] [facility] Work Phone: Start: 08-03-2022 Chart Update Daniel rodas Work Phone: [facility] [facility] Work Phone: Start: 07-24-2022 End: 07-24-2022 Patient encounter procedure Diego Gore MD Work Phone: Pain Management Comment on above: Diabetic peripheral neuropathy (HCC) (Primary Dx); Diabetes mellitus, non-insulin dependent (NIDDM or type II) (HCC) Start: 07-21-2022 Telephone encounter Diego gonzalez MD Work Phone: Pain Management Comment on above: Future Appointment Start: 07-10-2022 Patient encounter procedure Daniel Almanzar Work Phone: [email or web address] [facility] Work Phone: Start: 07-07-2022 AUDIT Daniel rodas Work Phone: [facility] Work Phone: Start: 07-03-2022 Office outpatient vi sit 15 minutes Danielbrent Almanzar Work Phone: [facility] Work Phone: Start: 06-06-2022 AUDIT Daniel rodas Work Phone: [facility] Work Phone: Start: 05-23-2022 EPV, Provider: Daniel Almanzar, Status: Pen, Time: 9:40 AM Danielbrent Almanzar Work Phone: [facility] Work Phone: Start: 05-23-2022 Office outpatient vi sit 25 minutes Daniel Almanzar Work Phone: [facility] Work Phone: Start: 05-22-2022 Chart Update Daniel rodas Work Phone: [facility] Work Phone: Start: 05-18-2022 Chart Update Daniel rodas Work Phone: [facility] Work Phone: Start: 05-17-2022 ECHO, Provider: MORELIA RAPHAEL ECHO 2,SMCECHO2, Status: Pen, Time: 12:30 PM Daniel Almanzar Work Phone: [facility] Work Phone: Start: 05-15-2022 AUDIT Daniel rodas Work Phone: [facility] Work Phone: Start: 05-12-2022 PVRWITHABI, Provider : [facility],SMCVASLAB2, Status: Pen, Time: 10:00 AM Danielbrent Almanzar Work Phone: [facility] Work Phone: Start: 05-10-2022 AUDIT Daniel rodas Work Phone: [facility] Work Phone: Start: 05-08-2022 Office outpatient vi sit 25 minutes Daniel Almanzar Work Phone: [facility] Work Phone: Start: 04-06-2022 Office outpatient vi sit 25 minutes Daniel Almanzar Work Phone: [facility] Work Phone: Start: 03-30-2022 Chart Update Daniel rodas Work Phone: [facility] Work Phone: Start: 03-29-2022 Chart Update Daniel rodas Work Phone: [facility] Work Phone: Start: 10-19-2021 AUDIT Daniel rodas Work Phone: [facility] Work Phone: Start: 10-07-2021 Adv care pln/ no alt dcsn mkr docd or refusal Daniel Almanzar Work Phone: [facility] [employer] [facility] Work Phone: Start: 09-29-2021 Chart Update Daniel rodas Work Phone: [facility] Work Phone: Start: 04-06-2021 Office outpatient vi sit 25 minutes Daniel Almanzar Work Phone: [facility] Work Phone: Patient encounter procedure Daniel Almanzar Work Phone: [facility] Work Phone: Procedures Date Procedure Procedure Detail Performing Clinician Start: 07-26-2025 Glucose quantitative blood xcpt reagent strip Adriel Pena MD Work Phone: Start: 07-25-2025 Glucose quantitative blood xcpt reagent strip Adriel Pena MD Work Phone: Start: 07-25-2025 Glucose quantitative blood xcpt reagent strip Adriel Pena MD Work Phone: Start: 07-25-2025 Glucose quantitative blood xcpt reagent strip Adriel Pena MD Work Phone: Start: 07-25-2025 Glucose quantitative blood xcpt reagent strip Adriel Pena MD Work Phone: Start: 07-24-2025 Glucose quantitative blood xcpt reagent strip Kapil Rios MD Work Phone: Start: 07-24-2025 Glucose quantitative blood xcpt reagent strip Kapil Rios MD Work Phone: Start: 07-24-2025 Glucose quantitative blood xcpt reagent strip Kapil Rios MD Work Phone: Start: 07-24-2025 End: 07-24-2025 Basic metabolic panel calcium total Joseph Jaramillo DIESEL SERVICE APPRENTICE-MINE ENGINEERING SUPERVISOR Work Phone: Start: 07-23-2025 Glucose quantitative blood xcpt reagent strip Kapil Rios MD Work Phone: Start: 07-23-2025 Glucose quantitative blood xcpt reagent strip Kapil Rios MD Work Phone: Start: 07-23-2025 Radiologic exam abdo men 1 view Joseph Jaramillo DIESEL SERVICE APPRENTICE-MINE ENGINEERING SUPERVISOR Work Phone: Start: 07-23-2025 Glucose quantitative blood xcpt reagent strip Kapil Rios MD Work Phone: Start: 07-23-2025 Glucose quantitative blood xcpt reagent strip Kapil Rios MD Work Phone: Start: 07-23-2025 Glucose quantitative blood xcpt reagent strip Kapil Rios MD Work Phone: Start: 07-22-2025 Glucose quantitative blood xcpt reagent strip Kapil Rios MD Work Phone: Start: 07-22-2025 Glucose quantitative blood xcpt reagent strip Kapil Rios MD Work Phone: Start: 07-22-2025 Glucose quantitative blood xcpt reagent strip Kapil Rios MD Work Phone: Start: 07-22-2025 Glucose quantitative blood xcpt reagent strip Kapil Rios MD Work Phone: Start: 07-22-2025 Basic metabolic pane l calcium total Anthony Vergara DIESEL SERVICE APPRENTICE-MINE ENGINEERING SUPERVISOR Work Phone: Start: 07-21-2025 Glucose quantitative blood xcpt reagent strip Kapil Rios MD Work Phone: Start: 07-21-2025 Glucose quantitative blood xcpt reagent strip Kapil Rios MD Work Phone: Start: 07-21-2025 Glucose quantitative blood xcpt reagent strip Kapil Rios MD Work Phone: Start: 07-21-2025 Glucose quantitative blood xcpt reagent strip Kapil Rios MD Work Phone: Start: 07-21-2025 Glucose quantitative blood xcpt reagent strip Kapil Rios MD Work Phone: Start: 07-20-2025 Glucose quantitative blood xcpt reagent strip Kapil Rios MD Work Phone: Start: 07-20-2025 Glucose quantitative blood xcpt reagent strip Kapil Rios MD Work Phone: Start: 07-20-2025 Glucose quantitative blood xcpt reagent strip Kapil Rios MD Work Phone: Start: 07-20-2025 Glucose quantitative blood xcpt reagent strip Kapil Rios MD Work Phone: Start: 07-20-2025 Basic metabolic pane l calcium total Lux Ridley DIESEL SERVICE APPRENTICE-MINE ENGINEERING SUPERVISOR Work Phone: Start: 07-19-2025 Glucose quantitative blood xcpt reagent strip Kapil Garsia MD Work Phone: Start: 07-19-2025 Glucose quantitative blood xcpt reagent strip Kapil Garsia MD Work Phone: Start: 07-19-2025 End: 07-19-2025 Basic metabolic panel calcium total Lux Morrowmushtaq DIESEL SERVICE APPRENTICE-MINE ENGINEERING SUPERVISOR Work Phone: Start: 07-18-2025 Glucose quantitative blood xcpt reagent strip Kapil Garsia MD Work Phone: Start: 07-18-2025 Glucose quantitative blood xcpt reagent strip Kapil Garsia MD Work Phone: Start: 07-18-2025 Glucose quantitative blood xcpt reagent strip Kapil Garsia MD Work Phone: Start: 07-18-2025 End: 07-18-2025 Basic metabolic panel calcium total Anthony Vergara DIESEL SERVICE APPRENTICE-MINE ENGINEERING SUPERVISOR Work Phone: Start: 07-17-2025 Glucose quantitative blood xcpt reagent strip Dorothy Barbosa MD Work Phone: Start: 07-17-2025 Glucose quantitative blood xcpt reagent strip Dorothy Barbosa MD Work Phone: Start: 07-17-2025 Glucose quantitative blood xcpt reagent strip Dorothy Barbosa MD Work Phone: Start: 07-17-2025 Glucose quantitative blood xcpt reagent strip Angela Toscano MD Work Phone: Start: 07-17-2025 End: 07-17-2025 Basic metabolic panel calcium total Anthony Vergara DIESEL SERVICE APPRENTICE-MINE ENGINEERING SUPERVISOR Work Phone: Start: 07-16-2025 Glucose quantitative blood xcpt reagent strip Kapil Garsia MD Work Phone: Start: 07-16-2025 Glucose quantitative blood xcpt reagent strip Kapil Garsia MD Work Phone: Start: 07-16-2025 Basic metabolic pane l calcium total Anthony Vergara DIESEL SERVICE APPRENTICE-MINE ENGINEERING SUPERVISOR Work Phone: Start: 07-15-2025 Glucose quantitative blood xcpt reagent strip Kapil Garsia MD Work Phone: Start: 07-15-2025 Ecg routine ecg w/le ast 12 lds trcg only w/o i&r Josef Dias DIESEL SERVICE APPRENTICE-[facility] Work Phone: Start: 07-15-2025 End: 07-15-2025 Basic metabolic panel calcium total Josef Dias DIESEL SERVICE APPRENTICE-MINE ENGINEERING SUPERVISOR Work Phone: Start: 07-15-2025 Lipid panel Anthony rodriguez DIESEL SERVICE APPRENTICE-MINE ENGINEERING SUPERVISOR Work Phone: Start: 07-14-2025 Glucose quantitative blood xcpt reagent strip Dorothy Barbosa MD Work Phone: Start: 07-14-2025 Mri brain brain stem w/o contrast material Jackson Pilar Cox DIESEL SERVICE APPRENTICE[facility] Work Phone: Start: 07-14-2025 Glucose quantitative blood xcpt reagent strip Dorothy Barbosa MD Work Phone: Start: 07-14-2025 Echo transthorc r-t 2d w/wo m-mode rec f-up/lmtd Josef Dias DIESEL SERVICE APPRENTICE[facility] Work Phone: Start: 07-14-2025 Glucose quantitative blood xcpt reagent strip Dorothy Barbosa MD Work Phone: Start: 07-14-2025 Glucose quantitative blood xcpt reagent strip Dorothy Barbosa MD Work Phone: Start: 07-14-2025 Ecg routine ecg w/le ast 12 lds trcg only w/o i&r Josef Dias DIESEL SERVICE APPRENTICE-MINE ENGINEERING SUPERVISOR Work Phone: Start: 07-14-2025 Radiologic exam ches t single view Josef Dias DIESEL SERVICE APPRENTICE-MINE ENGINEERING SUPERVISOR Work Phone: Start: 07-14-2025 Basic metabolic pane l calcium total Josef Dias DIESEL SERVICE APPRENTICE-MINE ENGINEERING SUPERVISOR Work Phone: Start: 07-14-2025 End: 07-14-2025 Ct head/brain w/o contrast material Chip Lombardi MD Work Phone: Start: 07-14-2025 Glucose quantitative blood xcpt reagent strip Dorothy Barbosa MD Work Phone: Start: 07-13-2025 Basic metabolic pane l calcium total Josef Dias DIESEL SERVICE APPRENTICE-MINE ENGINEERING SUPERVISOR Work Phone: Start: 07-13-2025 Ecg routine ecg w/le ast 12 lds trcg only w/o i&r Josef Dias DIESEL SERVICE APPRENTICE-MINE ENGINEERING SUPERVISOR Work Phone: Start: 07-13-2025 Echo transthorc r-t 2d w/wo m-mode rec f-up/lmtd Josef Dias DIESEL SERVICE APPRENTICE-MINE ENGINEERING SUPERVISOR Work Phone: Start: 07-13-2025 Cardiac catheterizat ion study Dorothy Barbosa MD Work Phone: Start: 07-13-2025 End: 07-13-2025 Coagulation time activated Kapil cordon MD Work Phone: Start: 07-13-2025 End: 07-13-2025 TAVR-OR Omar Howell MD P Work Phone: Start: 07-13-2025 End: 07-13-2025 Blood typing serologic rh (d) Josef Dias DIESEL SERVICE APPRENTICE-MINE ENGINEERING SUPERVISOR Work Phone: Start: 07-13-2025 Glucose quantitative blood xcpt reagent strip Dorothy Barbosa MD Work Phone: Start: 07-13-2025 Ecg routine ecg w/le ast 12 lds trcg only w/o i&r Josef Dias DIESEL SERVICE APPRENTICE-MINE ENGINEERING SUPERVISOR Work Phone: Start: 06-16-2025 Ct thorax w/o contra st material Dorothy Barbosa MD Work Phone: Start: 04-16-2025 MEASURE POST VOID RESIDUAL Matilde Regan MD Work Phone: Start: 03-30-2025 Glucose quantitative blood xcpt reagent strip Matilde Regan MD Work Phone: Start: 03-30-2025 PULSE OXIMETRY, CONTINUOUS Robbie Moreno MD Work Phone: Start: 03-30-2025 Glucose quantitative blood xcpt reagent strip Matilde Regan MD Work Phone: Start: 03-17-2025 Urinalysis complete W Reflex Culture panel - Urine Gopi Vergara DO Work Phone: Start: 03-17-2025 Urnls dip stick/tabl et reagent auto microscopy Gopi Vergara DO Work Phone: Start: 03-05-2025 Glucose quantitative blood xcpt reagent strip Cheikh Horne MD Work Phone: Start: 03-05-2025 Urinalysis microscop ic panel - Urine Qualitative by Automated Cheikh Horne MD Work Phone: Start: 03-05-2025 Urnls dip stick/tabl et reagent auto microscopy Cheikh Horne MD Work Phone: Start: 03-05-2025 Glucose quantitative blood xcpt reagent strip Kyung Rolle MD Work Phone: Start: 03-05-2025 Basic metabolic pane l calcium total Cheikh Horne MD Work Phone: Start: 03-04-2025 Glucose quantitative blood xcpt reagent strip Kyung Rolle MD Work Phone: Start: 03-04-2025 End: 03-04-2025 Ecg routine ecg w/least 12 lds trcg only w/o i&r Sanya Cristel Lemgilson DO Work Phone: Start: 03-04-2025 Assay of thyroid stimulating hormone tsh Kyung Rolle MD Work Phone: Start: 03-04-2025 Comprehensive metabo lic panel Sanya Shin DO Work Phone: Start: 03-04-2025 Troponin I.cardiac p emelia - Serum or Plasma by High sensitivity method Sanya Cristel Clotilde DO Work Phone: Start: 03-04-2025 Radiologic exam ches t single view Sanya Cristel Shin DO Work Phone: Start: 02-28-2025 Urinalysis complete W Reflex Culture panel - Urine Nestor Beasley MD Work Phone: Start: 02-28-2025 Urnls dip stick/tabl et reagent auto microscopy Nestor Beasley MD Work Phone: Start: 02-25-2025 History of placement of stent for coronary artery disease H/O heart artery stent Matilde Regan MD Work Phone: Start: 01-19-2025 Ecg routine ecg w/le ast 12 lds trcg only w/o i&r Tati Phoenix APRN-MINE ENGINEERING SUPERVISOR, [facility] Work Phone: Start: 01-19-2025 Cardiac catheterizat ion study Nima Fay MD Work Phone: Start: 01-19-2025 Coagulation time activated Nima Fay MD Work Phone: Start: 01-19-2025 Ecg routine ecg w/le ast 12 lds trcg only w/o i&r Tati Phoenix APRN-RICARDO, [facility] Work Phone: Start: 12-08-2024 Ecg routine ecg w/le ast 12 lds w/i&r Nima Fay MD Work Phone: Start: 10-20-2024 Glucose quantitative blood xcpt reagent strip Kyung Rolle MD Work Phone: Start: 10-20-2024 Glucose quantitative blood xcpt reagent strip Kyung Rolle MD Work Phone: Start: 10-20-2024 Echo tthrc r-t 2d w/wom-mode compl spec&colr d Zana Mathews MD Work Phone: Start: 10-20-2024 Glucose quantitative blood xcpt reagent strip Giovanny Baker DO Work Phone: Start: 10-20-2024 Renal function panel Da belinda Baker DO Work Phone: Start: 10-19-2024 Glucose quantitative blood xcpt reagent strip Giovanny Baker DO Work Phone: Start: 10-19-2024 Glucose quantitative blood xcpt reagent strip Giovanny Baker DO Work Phone: Start: 10-19-2024 Glucose quantitative blood xcpt reagent strip Giovanny Baker DO Work Phone: Start: 10-19-2024 Basic metabolic pane l calcium total Zana Mathews MD Work Phone: Start: 10-19-2024 Thyrotropin [Units/v olume] in Serum or Plasma Adriana Howell DO Work Phone: Start: 10-19-2024 Urnls dip stick/tabl et rgnt auto w/o microscopy Waldemar Cox PA-C Work Phone: Start: 10-18-2024 RESPIRATORY CARE EVALUATION ONLY Zana Mathews MD Work Phone: Start: 10-18-2024 Glucose quantitative blood xcpt reagent strip Sanya Shin DO Work Phone: Start: 10-18-2024 Radex hip unilateral with pelvis 2-3 views Waldemar Cox PA-C Work Phone: Start: 10-18-2024 Ct head/brain w/o co ntrast material Waldemar Cox PA-C Work Phone: Start: 10-18-2024 Radex ankle complete minimum 3 views Sayna Shin DO Work Phone: Start: 10-18-2024 End: 10-18-2024 Culture bacterial blood aerobic w/id isolates Waldemar Cox PA-C Work Phone: Start: 10-18-2024 End: 10-18-2024 Comprehensive metabolic panel Waldemar Cox PA-C Work Phone: Start: 10-18-2024 Influenza virus A an d B RNA [Identifier] in Unspecified specimen by MALENA with probe detection Waldemar Cox PA-C Work Phone: Start: 10-18-2024 SARS-CoV-2 (COVID-19 ) RNA [Presence] in Respiratory specimen by MALENA with probe detection Waldemar Cox PA-C Work Phone: Start: 10-18-2024 Radiologic exam ches t single view Waldemar Cox PA-C Work Phone: Start: 10-18-2024 Ecg routine ecg w/le ast 12 lds trcg only w/o i&r Waldemar Cox PA-C Work Phone: Start: 09-26-2024 Urinalysis complete W Reflex Culture panel - Urine Lexis Efren ERICKSON Work Phone: Start: 09-26-2024 Urnls dip stick/tabl et reagent auto microscopy Lexis Sunshinedeepti ERICKSON Work Phone: Start: 09-26-2024 Lipid 1996 panel - S merlin or Plasma Adriana Howell DO Work Phone: Start: 07-18-2024 US Abdomen Kapil billings MD Work Phone: Start: 06-05-2024 US Abdomen Kapil billings MD Work Phone: Start: 05-29-2024 Glucose quantitative blood xcpt reagent strip Sanya Shin DO Work Phone: Start: 05-29-2024 End: 05-29-2024 Glucose quantitative blood xcpt reagent strip Sanya Shin DO Work Phone: Start: 05-29-2024 Ct cervical spine w/ o contrast material Sanya Shin DO Work Phone: Start: 05-29-2024 Ct head/brain w/o co ntrast material Sanya Shin DO Work Phone: Start: 05-29-2024 End: 05-29-2024 Comprehensive metabolic panel Sanya Shin DO Work Phone: Start: 05-29-2024 Radex elbow complete minimum 3 views Sanya Shin DO Work Phone: Start: 05-29-2024 Radiologic exam ches t single view Sanya Shin DO Work Phone: Start: 05-29-2024 Urnls dip stick/tabl et rgnt auto w/o microscopy Sanya Shin DO Work Phone: Start: 05-29-2024 Ecg routine ecg w/le ast 12 lds trcg only w/o i&r Sanya Shin DO Work Phone: Start: 03-05-2024 US Abdomen Kapil billings MD Work Phone: Start: 01-22-2024 US Abdomen Kapil billings MD Work Phone: Start: 01-22-2024 Arthrocentesis aspir &/inj major jt/bursa w/us Kapil Orozco MD Work Phone: Start: 01-22-2024 US Abdomen Kapil billings MD Work Phone: Start: 08-30-2023 Mri any jt upper ext remity w/o contrast matrl Kapil Orozco MD Work Phone: Start: 08-28-2023 Arthrocentesis aspir &/inj major jt/bursa w/us Kapli Orozco MD Work Phone: Start: 03-28-2023 Echocardiography Arias k T Yohan Work Phone: Start: 03-28-2023 End: 03-28-2023 EKG impression Gopi Vergara Start: 12-04-2022 End: 12-04-2022 Radex spine cervical 4 or 5 views Mary Junior DIESEL SERVICE APPRENTICE.MINE ENGINEERING SUPERVISOR Work Phone: Start: 05-17-2022 Echocardiography Arias Almanzar Work Phone: Start: 03-29-2022 Lipid 1996 panel - S merlin or Plasma Daniel Almanzar MD Work Phone: Appendectomy Daniel Grande ss Work Phone: Cataract surgery Daniel moody Work Phone: Colonoscopy Daniel Grande ss Work Phone: Excision of cyst Daniel moody Work Phone: Comment on above: Excision of a cyst o n his scalp 11/01/[address] Bhakta; History of placement of stent for coronary artery disease Hx of heart artery stent Nima Fay MD Work Phone: History of placement of stent for coronary artery disease Hx of heart artery stent Nima Fay MD Work Phone: Plan of Treatment Date Care Activity Detail Author Start: 05-29-2034 DTaP/Tdap/Td Vaccines (2 - Td or Tdap) DTaP/Tdap/Td Vaccines (2 - Td or Tdap) [facility] Start: 05-29-2034 [facility] Start: 10-19-2029 Cyanocobalamin vitamin b-12 Vitamin B-12 [facility] Start: 07-15-2026 Lipid panel [facility] Start: 07-15-2026 End: 07-15-2026 ambulatory [facility] Start: 07-15-2026 End: 07-15-2026 Telemedicine consultation with patient 07/15/2026 9:30 AM EDT Telemedicine Clinical Support [facility] [address] [place] [address] [facility] Start: 05-14-2026 Glaucoma screening [facility] Start: 03-09-2026 Creatinine measurement Creatinine Level [facility] Start: 03-09-2026 Potassium measurement Potassium Level [facility] Start: 12-09-2025 Medicare Annual Wellness Visit [facility] Start: 10-23-2025 End: 10-23-2025 ambulatory [facility] Start: 10-23-2025 End: 10-23-2025 Patient encounter procedure 10/23/2025 10:45 AM EST Office Visit [facility] [address]nd [place] [address] Nima Putnam MD [address] Level, [address] [place] [address] [facility] Start: 10-20-2025 Echocardiography Echocardiogram [facility] Start: 10-19-2025 Thyroid stimulating hormone measurement TSH Level [facility] Start: 10-15-2025 Hemoglobin A1c measurement [facility] Start: 09-26-2025 Lipid panel Lipid Panel [facility] Start: 08-31-2025 End: 08-31-2025 [facility] Start: 08-31-2025 End: 08-31-2025 Patient encounter procedure 08/31/2025 10:00 AM EST Office Visit [facility] [address] [place] [address] Daniel Almanzar MD [address] [place] [address] [facility] Start: 08-13-2025 End: 08-13-2025 ambulatory [facility] Start: 08-13-2025 End: 08-13-2025 Telemedicine consultation with patient 08/13/2025 1:30 PM EST Telemedicine Clinical Support [facility] [address] [place] [address] [facility] Start: 08-05-2025 End: 07-13-2027 US Heart Transthoracic [facility] Work Phone: Start: 08-03-2025 End: 08-03-2025 Patient encounter procedure 08/03/2025 1:15 PM EST Office Visit [facility] [address] [place] [address] Nima Putnam MD [address] [facility] Level, [address] [place], [place] [id number] [facility] Start: 07-30-2025 End: 07-30-2025 Patient encounter procedure 07/30/2025 10:30 AM EST Office Visit [facility] [address] [place] [address] Srikanth Howell, DIESEL SERVICE APPRENTICE-MINE ENGINEERING SUPERVISOR, DNP [address] [facility] [address] [place] [id number] [facility] Start: 07-22-2025 End: 07-22-20[address] [facility] [address] [facility] Start: 07-13-2025 End: 07-13-2025 Admission to same day surgery center 07/13/2025 2:30 PM EDT - 07/13/2025 5:00 PM EDT Surgery [facility] [address] [place] [phone] [place] [address] [place] [address] TAVR (Transcatheter AV Replacement) [75602 (CPT )] [facility] Comment on above: TAVR (Transcatheter AV Replacement) [333 61 (CPT )] Start: 07-13-2025 Subsequent hospital visit by physician 07/13/2025 2:30 PM EDT Hospital Encounter [facility] [address] [address] [address] [place] [address] [place] [address] Nonrheumatic aortic (valve) stenosis [facility] Comment on above: Nonrheumatic aortic (valve) stenosis Start: 07-13-2025 End: 07-13-2025 TAVR-OR TAVR-OR Nonrheumatic aortic (valve) stenosis 07/13/2025 2:30 PM EDT [facility] Work Phone: Start: 07-01-2025 End: 07-01-2025 Patient encounter procedure [facility] Start: 06-09-2025 Hemoglobin A1c measurement Diabetes: Hemoglobin A1C [facility] Start: 05-27-2025 End: 05-27-2025 Clinical Support 05/27/2025 12:30 PM EDT Clinical Support [address] [address] [facility] Start: 05-25-2025 COVID-19 Vaccine ( season) COVID-19 Vaccine ( season) [facility] Start: 05-25-2025 COVID-19 Vaccine ( season) COVID-19 Vaccine ( season) [facility] Start: 05-25-2025 Influenza vaccination Influenza Vaccine (#1) [facility] Start: 05-25-2025 [facility] Start: 05-22-2025 End: 05-22-2025 Clinical Support 05/22/2025 12:30 PM EDT Clinical Support [address] [address] [facility] Start: 05-20-2025 End: 05-20-2025 Clinical Support 05/20/2025 12:30 PM EDT Clinical Support [address] [address] [facility] Start: 05-18-2025 End: 05-18-2025 Clinical Support 05/18/2025 12:30 PM EDT Clinical Support [address] [address] [facility] Start: 05-15-2025 End: 05-15-2025 Clinical Support 05/15/2025 12:30 PM EDT Clinical Support [address] [address] [facility] Start: 05-14-2025 Glaucoma screening Diabetes: Retinopathy Screening [facility] Start: 05-13-2025 End: 05-13-2025 Clinical Support 05/13/2025 12:30 PM EDT Clinical Support [address] [address] [facility] Start: 05-11-2025 End: 05-11-2025 Clinical Support 05/11/2025 12:30 PM EDT Clinical Support [address] [address] [facility] Start: 05-08-2025 End: 05-08-2025 Clinical Support 05/08/2025 12:30 PM EDT Clinical Support [address] [address] [facility] Start: 05-06-2025 End: 05-06-2025 Clinical Support 05/06/2025 12:30 PM EDT Clinical Support [address] [address] [facility] Start: 05-04-2025 End: 05-04-2025 Clinical Support 05/04/2025 12:30 PM EDT Clinical Support [address] [address] [facility] Start: 05-01-2025 End: 05-01-2025 Clinical Support 05/01/2025 12:30 PM EDT Clinical Support [address] [address] [facility] Start: 04-29-2025 End: 04-29-2025 Clinical Support 04/29/2025 12:30 PM EDT Clinical Support [address] [address] [facility] Start: 04-27-2025 End: 04-27-2025 Clinical Support 04/27/2025 12:30 PM EDT Clinical Support [address] [address] [facility] Start: 04-24-2025 Influenza vaccination [facility] Start: 04-24-2025 End: 04-24-2025 Clinical Support 04/24/2025 12:30 PM EDT Clinical Support [address] [address] [facility] Start: 04-22-2025 End: 04-22-2025 Clinical Support 04/22/2025 12:30 PM EDT Clinical Support [address] [address] [facility] Start: 04-21-2025 End: 04-21-2025 Patient encounter procedure 04/21/2025 2:00 PM EDT Office Visit [facility] [address]nd [place] [address] Nima Putnam MD [address] [facility], [address] [address] [facility] Start: 04-20-2025 End: 04-20-2025 Clinical Support 04/20/2025 12:30 PM EDT Clinical Support [address] [address] [facility] Start: 04-17-2025 End: 04-17-2025 Clinical Support 04/17/2025 12:30 PM EDT Clinical Support [address] [address] [facility] Start: 04-17-2025 End: 04-17-2025 Patient encounter procedure 04/17/2025 10:40 AM EDT Office Visit [address] [place] [address] Britt Oconnor, DIESEL SERVICE APPRENTICE-MINE ENGINEERING SUPERVISOR [address] [place] [address] Dr [address], [address] [place] [address] [facility] Start: 04-17-2025 End: 04-17-2025 Home visit 04/17/2025 8:45 AM EDT Home Care Visit [facility] [address] [place] [phone] Britt Ackerman, AYAAN [facility] Start: 04-16-2025 End: 04-16-2025 Patient encounter procedure [facility] Start: 04-15-2025 End: 04-15-2025 Clinical Support 04/15/2025 12:30 PM EDT Clinical Support [address] [address] [facility] Start: 04-13-2025 End: 04-13-2025 Clinical Support 04/13/2025 12:30 PM EDT Clinical Support [address] [address] [facility] Start: 04-10-2025 End: 04-10-2025 Clinical Support 04/10/2025 12:30 PM EDT Clinical Support [address] [address] [facility] Start: 04-09-2025 End: 04-09-2025 Home visit 04/09/2025 8:45 AM EDT Home Care Visit [facility] [address] [place] [address] Britt Ackerman, AYAAN [facility] Start: 04-08-2025 End: 04-08-2025 Clinical Support 04/08/2025 12:30 PM EDT Clinical Support [address] [address] [facility] Start: 04-06-2025 End: 04-06-2025 Clinical Support 04/06/2025 12:30 PM EDT Clinical Support [address] [address] [facility] Start: 04-04-2025 End: 04-04-2025 Home visit 04/04/2025 8:45 AM EDT Home Care Visit [facility] [place] [address] Britt Ackerman RN [facility] Start: 04-03-2025 End: 04-03-2025 Clinical Support 04/03/2025 12:30 PM EDT Clinical Support [address] [address] [facility] Start: 04-02-2025 End: 04-02-2025 Clinical Support 04/02/2025 11:00 AM EDT Clinical Support [address] [address] [facility] Start: 04-01-2025 End: 04-01-[address] [facility] Start: 03-30-2025 End: 03-30-2025 Clinical Support 03/30/2025 1:30 PM EDT Clinical Support [address] [address] [facility] Start: 03-30-2025 End: 03-30-2025 Admission to same day surgery center [facility] [place] Comment on above: Endoscopic Anatomical Prostate Enucleati on [32725 (CPT )] Endoscopic Anatomica l Prostate Enucleation ~ HoLEP [75861 (CPT )] Start: 03-30-2025 End: 03-30-2025 Anesthesia consultation 03/30/2025 10:55 AM EDT Anesthesia Event [facility] [place] [address] [place] [address] Robbie Moreno MD [address] [place] [address] [facility] [place] Start: 03-30-2025 End: 03-30-2025 Laser enucleation prostate w/morcellation ENUCLEATION, ANATOMICAL, PROSTATE, ENDOSCOPIC Enlarged prostate with urinary obstruction 03/30/2025 10:55 AM EDT [facility] [place] Start: 03-30-2025 Subsequent hospital visit by physician 03/30/2025 9:25 AM EDT Hospital Encounter [facility] [place] [address] [place] [address] Matilde Regan MD [facility] 3rd floor of the [facility] [address] [place] [address] [facility] [place] Start: 03-28-2025 End: 03-28-2025 Home visit 03/28/2025 9:30 AM EDT Home Care Visit [facility] [address] [place] [address] Katja Foss, AYAAN [facility] Start: 03-25-2025 End: 03-25-2025 Clinical Support 03/25/2025 12:30 PM EDT Clinical Support [address] [address] [facility] Start: 03-23-2025 End: 03-23-2025 Clinical Support 03/23/2025 12:30 PM EDT Clinical Support [address] [address] [facility] Start: 03-20-2025 End: 03-20-2025 Clinical Support 03/20/2025 12:30 PM EDT Clinical Support [address] [place] [address] [facility] Start: 03-18-2025 End: 03-18-2025 Clinical Support [facility] Start: 03-16-2025 End: 03-16-2025 Clinical Support 03/16/2025 12:30 PM EDT Clinical Support [address] [address] [facility] Start: 03-14-2025 End: 03-14-2025 Home visit 03/14/2025 11:15 AM EDT Home Care Visit [facility] [place] [address] Katja Foss RN [facility] Start: 03-13-2025 End: 03-13-2025 Clinical Support 03/13/2025 12:30 PM EDT Clinical Support [address] [address] [facility] Start: 03-12-2025 End: 03-12-2025 Clinical Support 03/12/2025 11:00 AM EDT Clinical Support [address] [address] [facility] Start: 03-11-2025 End: 03-11-2025 Clinical Support 03/11/2025 12:30 PM EDT Clinical Support [address] [address] [facility] Start: 03-11-2025 End: 03-11-2025 Patient encounter procedure 03/11/2025 10:40 AM EDT Office Visit [place] [address] [address] Daniel Almanzar MD [address] [address] [facility] Start: 03-10-2025 End: 09-09-2025 CBC panel - Blood by Automated count CBC Lab Routine Type 2 diabetes mellitus with diabetic polyneuropathy, without long-term current use of insulin (Multi) Primary hypertension Expected: 03/10/2025 (Approximate), Expires: 09/09/2025 [facility] Service Area Work Phone: Comment on above: Expected: 03/10/2025 (Approximate), Expi res: 09/09/2025 Start: 03-10-2025 End: 09-09-2025 Comprehensive metabolic 2000 panel - Serum or Plasma Comprehensive Metabolic Panel Lab Routine Type 2 diabetes mellitus with diabetic polyneuropathy, without long-term current use of insulin Primary hypertension Expected: 03/10/2025 (Approximate), Expires: 09/09/2025 [facility] Work Phone: Comment on above: Expected: 03/10/2025 (Approximate), Expi res: 09/09/2025 Start: 03-10-2025 End: 09-09-2025 Hemoglobin A1c/Hemoglobin.total in Blood Hemoglobin A1C Lab Routine Type 2 diabetes mellitus with diabetic polyneuropathy, without long-term current use of insulin Expected: 03/10/2025 (Approximate), Expires: 09/09/2025 [facility] Work Phone: Comment on above: Expected: 03/10/2025 (Approximate), Expi res: 09/09/2025 Start: 03-10-2025 End: 09-09-2025 Magnesium [Mass/volume] in Serum or Plasma Magnesium Lab Routine Type 2 diabetes mellitus with diabetic polyneuropathy, without long-term current use of insulin Primary hypertension Expected: 03/10/2025 (Approximate), Expires: 09/09/2025 [facility] Work Phone: Comment on above: Expected: 03/10/2025 (Approximate), Expi res: 09/09/2025 Start: 03-10-2025 End: 09-09-2025 Thyrotropin [Units/volume] in Serum or Plasma Thyroid Stimulating Hormone Lab Routine Type 2 diabetes mellitus with diabetic polyneuropathy, without long-term current use of insulin Primary hypertension Expected: 03/10/2025 (Approximate), Expires: 09/09/2025 [facility] Work Phone: Comment on above: Expected: 03/10/2025 (Approximate), Expi res: 09/09/2025 Start: 03-09-2025 End: 03-09-2025 Clinical Support 03/09/2025 12:30 PM EDT Clinical Support [address] [address] [facility] Start: 03-06-2025 End: 03-06-2025 Clinical Support 03/06/2025 12:30 PM EDT Clinical Support [address] [address] [facility] Start: 03-04-2025 End: 03-04-2025 Clinical Support 03/04/2025 12:30 PM EDT Clinical Support [address] [address] [facility] Start: 03-02-2025 End: 03-02-2025 Clinical Support 03/02/2025 12:30 PM EDT Clinical Support [address] [address] [facility] Start: 02-27-2025 End: 02-27-2025 Clinical Support 02/27/2025 12:30 PM EDT Clinical Support [address] [address] [facility] Start: 02-13-2025 End: 02-13-2025 Clinical Support 02/13/2025 11:30 AM EDT Clinical Support [address] Matthew [address] [address] [facility] Start: 02-02-2025 End: 02-02-2025 Patient encounter procedure 02/02/2025 2:00 PM EDT Office Visit [facility] [address] [facility] 2nd [place] [address] Nima Putnam MD [address] [place] [address] [facility] Start: 01-30-2025 End: 01-30-2025 Patient encounter procedure 01/30/2025 1:15 PM EDT Office Visit [facility] [address] [place] [address] Nima Putnam MD [address] 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) Expected: 01/29/2025 (Approximate), Expires: 01/29/2026 [facility] Service Area Work Phone: Comment on above: Expected: 01/29/2025 (Approximate), Expi res: 01/29/2026 Start: 01-29-2025 End: 01-29-2026 Microalbumin/Creatinine [Mass Ratio] in Urine Albumin-Creatinine Ratio, Urine Random Lab Routine 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) Expected: 01/29/2025 (Approximate), Expires: 01/29/2026 [facility] Work Phone: Comment on above: Expected: 01/29/2025 (Approximate), Expi res: 01/29/2026 Start: 01-29-2025 End: 01-29-2026 Urinalysis complete panel - Urine Urinalysis with Reflex Microscopic Lab Routine 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) Expected: 01/29/2025 (Approximate), Expires: 01/29/2026 [facility] Work Phone: Comment on above: Expected: 01/29/2025 (Approximate), Expi res: 01/29/2026 Start: 01-29-2025 End: 01-29-2025 Patient encounter procedure 01/29/2025 11:00 AM EDT Office Visit [facility] [address] [place] [address] Adriana Howell DO [address] [place] [address] [facility] Start: 01-26-2025 COVID-19 Vaccine ( season) COVID-19 Vaccine ( season) [facility] Start: 01-21-2025 End: 01-21-2025 Home visit 01/21/2025 9:30 AM EDT Home Care Visit [facility] [address] [place] [phone] Katja Foss RN [facility] Start: 01-21-2025 End: 01-21-2025 Patient encounter procedure 01/21/2025 9:20 AM EDT Office Visit [facility] [address] [place] [address] Matilde Regan MD [facility] 3rd floor of [facility] [address] [place] [address] [facility] Start: 01-19-2025 End: 01-19-2025 Admission to same day surgery center 01/19/2025 8:30 AM EDT - 01/19/2025 9:30 AM EDT Surgery [facility] [address] [place] [address] Nima Putnam MD [address] [place] [address] Left And Right Heart Cath, With LV [13517 (CPT )] [facility] Comment on above: Left And Right Heart Cath, With LV [9345 3 (CPT )] Start: 01-19-2025 Subsequent hospital visit by physician 01/19/2025 8:30 AM EDT Hospital Encounter [facility] [address] [place] [address] Nima Putnam MD [address] [place] [address] Dr Vaughn Qu[address]z, [address] [place] [address] Nonrheumatic aortic valve stenosis [facility] Comment on above: Nonrheumatic aortic valve stenosis Start: 01-05-2025 End: 01-05-2025 Clinical Support 01/05/2025 10:00 AM EDT Clinical Support [place] [id number] [facility] [address] [place] [address] [facility] Start: 01-02-2025 End: 01-02-2025 Admission to same day surgery center 01/02/2025 7:30 AM EDT - 01/02/2025 9:30 AM EDT Surgery [facility] [place] [address] [place] [address] Matilde Regan MD [facility] 3rd [facility] of the [facility] [address] [place], [place] [id number] Endoscopic Anatomical Prostate Enucleation [96925 (CPT )] [facility] [place] Comment on above: Endoscopic Anatomical Prostate Enucleati on [84735 (CPT )] Start: 01-02-2025 End: 01-02-2025 Laser enucleation prostate w/morcellation ENUCLEATION, ANATOMICAL, PROSTATE, ENDOSCOPIC Benign prostatic hyperplasia with urinary retention 01/02/2025 7:30 AM EDT [facility] [place] Start: 01-02-2025 Subsequent hospital visit by physician [facility] [place] Start: 01-01-2025 End: 01-01-2025 Patient encounter procedure 01/01/2025 10:40 AM EDT Office Visit [address] [phone] Daniel Almanzar MD [address] [place] [address] [facility] Start: 12-24-2024 End: 12-24-2024 Admission to establishment 12/24/2024 10:30 AM EDT Pre-Admission Testing [facility] [address] [place] [address] La Nena Yeager, DIESEL SERVICE APPRENTICE-MINE ENGINEERING SUPERVISOR [address] [address] Anesthesiology [place] [address] [facility] Start: 12-24-2024 End: 12-24-2024 Patient encounter procedure 12/24/2024 9:50 AM EDT Office Visit [facility] [address] [place] [address] Matilde Regan MD [address] floor of the [facility] [address] [place] [address] [facility] Start: 12-17-2024 End: 12-17-2024 Patient encounter procedure 12/17/2024 2:00 PM EDT Appointment [facility] [address] [place] [address] Katja Foss, AYAAN [facility] Start: 12-16-2024 End: 12-16-2024 Clinical Support 12/16/2024 8:00 AM EDT Clinical Support [facility] [address] [place] [address] [facility] Start: 12-11-2024 End: 12-11-2024 Home visit 12/11/2024 8:45 AM EDT Home Care Visit [facility] [address] [place] [address] Katja Foss, AYAAN [facility] Start: 12-08-2024 End: 12-08-2024 Patient encounter procedure [facility] Start: 12-04-2024 Hemoglobin A1c measurement Diabetes: Hemoglobin A1C [facility] Start: 12-04-2024 End: 12-04-2024 Home visit 12/04/2024 10:15 AM EDT Home Care Visit [facility] [address] [place] [phone] Katja Foss RN [facility] Start: 12-03-2024 End: 12-10-2024 Bacteria identified in Urine by Culture Urine Culture Microbiology Routine Benign prostatic hyperplasia with urinary retention Expected: 12/03/2024 (Approximate), Expires: 12/10/2024 [facility] Work Phone: Comment on above: Expected: 12/03/2024 (Approximate), Expi res: 12/10/2024 Start: 12-03-2024 End: 12-03-2025 Basic metabolic 2000 panel - Serum or Plasma Basic Metabolic Panel Lab Routine Benign prostatic hyperplasia with urinary retention Expected: 12/03/2024 (Approximate), Expires: 12/03/2025 [facility] Work Phone: Comment on above: Expected: 12/03/2024 (Approximate), Expi res: 12/03/2025 Start: 12-03-2024 End: 12-03-2025 CBC panel - Blood by Automated count CBC Lab Routine Benign prostatic hyperplasia with urinary retention Expected: 12/03/2024 (Approximate), Expires: 12/03/2025 [facility] Work Phone: Comment on above: Expected: 12/03/2024 (Approximate), Expi res: 12/03/2025 Start: 12-03-2024 End: 04-04-2025 Request for Pre-Admission Testing Visit Request for Pre-Admission Testing Visit Procedures Routine Benign prostatic hyperplasia with urinary retention Expected: 12/03/2024 (Approximate), Expires: 04/04/2025 [facility] Service Area Work Phone: Comment on above: Expected: 12/03/2024 (Approximate), Expi res: 04/04/2025 Start: 12-03-2024 End: 12-03-2024 Home visit 12/03/2024 10:15 AM EDT Home Care Visit [facility] [address] [place] [address] Katja Foss, AYAAN [facility] Start: 12-03-2024 End: 12-03-2024 Patient encounter procedure 12/03/2024 9:00 AM EDT Office Visit [facility] [address] [place] [address] Matilde Regan MD Cutler Addison for [address] of the [facility] [address] [place] [address] [facility] Start: 12-03-2024 End: 12-03-2024 Telemedicine consultation with patient 12/03/2024 9:00 AM EDT Telemedicine [facility] [address] [place] [address] Matilde Regan MD Cutler Addison for [address] of the [facility] [address] [place] [address] [facility] Start: 11-26-2024 End: 11-26-2024 Home visit 11/26/2024 2:00 PM EST Home Care Visit [facility] [address] [place] [address] Katja Foss, AYAAN [facility] Start: 11-20-2024 End: 11-20-2024 Home visit 11/20/2024 9:30 AM EST Home [facility] Visit [facility] [address] [place] [address] Katja Foss, AYAAN [facility] Start: 11-18-2024 End: 11-18-2024 Patient encounter procedure 11/18/2024 8:00 AM EST Appointment [facility] [address] [place] [address] Anai Hernandez, PT [facility] Start: 11-17-2024 End: 11-17-2024 Patient encounter procedure 11/17/2024 8:00 AM EST Appointment [facility] [address] [place] [address] Anai Hernandez, PT [facility] Start: 11-14-2024 End: 11-14-2024 Home visit 11/14/2024 9:00 AM EST Home [facility] Visit [facility] [address] [place] [address] Katja Foss RN [facility] Start: 11-13-2024 End: 11-13-2024 Home visit 11/13/2024 8:45 AM EST Home Care Visit [facility] [address] [place] [address] Aden Nowak, CLEAN ENERGY POLICY ANALYST [facility] Start: 11-10-2024 End: 11-10-2024 Home visit 11/10/2024 8:45 AM EST Home Care Visit [facility] [address] [place] [address] Aden Nowak, CLEAN ENERGY POLICY ANALYST [facility] Start: 11-06-2024 Medicare Annual Wellness Visit Medicare Annual Wellness Visit (AWV) [facility] Start: 11-06-2024 End: 11-06-2024 Home visit 11/06/2024 11:45 AM EST Home Care Visit [facility] [address] [place] [address] Aden Nowak, CLEAN ENERGY POLICY ANALYST [facility] Start: 11-05-2024 End: 11-05-2024 Home visit 11/05/2024 10:15 AM EST Home Care Visit [facility] [address] [place] [address] Katja Foss RN [facility] Start: 11-03-2024 End: 11-03-2024 Home visit 11/03/2024 8:45 AM EST Home Care Visit [facility] [address] [place] [address] Aden Nowak PTA [facility] Start: 10-31-2024 End: 10-31-2024 Patient encounter procedure 10/31/2024 11:00 AM EST Office Visit [place] [address] [address] Daniel Almanzar MD [address] [address] [facility] Start: 10-30-2024 End: 10-30-2024 Home visit 10/30/2024 9:30 AM EST Home Care Visit [facility] [address] [place] [address] Katja Foss RN [facility] Start: 10-29-2024 End: 10-29-2025 Basic metabolic 2000 panel - Serum or Plasma Basic metabolic panel Lab Routine 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) Expected: 10/29/2024 (Approximate), Expires: 10/29/2025 [facility] Service Area Work Phone: Comment on above: Expected: 10/29/2024 (Approximate), Expi res: 10/29/2025 Start: 10-29-2024 End: 10-29-2025 Microalbumin/Creatinine [Mass Ratio] in Urine Albumin-Creatinine Ratio, Urine Random Lab Routine 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) Expected: 10/29/2024 (Approximate), Expires: 10/29/2025 [facility] Work Phone: Comment on above: Expected: 10/29/2024 (Approximate), Expi res: 10/29/2025 Start: 10-29-2024 End: 10-29-2025 Urinalysis complete panel - Urine Urinalysis with Reflex Microscopic Lab Routine 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) Expected: 10/29/2024 (Approximate), Expires: 10/29/2025 [facility] Work Phone: Comment on above: Expected: 10/29/2024 (Approximate), Expi res: 10/29/2025 Start: 10-29-2024 End: 10-29-2024 Patient encounter procedure [facility] Office Building Start: 10-28-2024 End: 10-28-2024 Admission to same day surgery center 10/28/2024 12:00 PM EST - 10/28/2024 12:30 PM EST Surgery [facility] OR [address] [place] [phone] Caleb Lucia MD [address] [place] [address] URETEROSCOPY [19235 (CPT )] [facility] OR Comment on above: URETEROSCOPY [04535 (CPT )] Start: 10-28-2024 End: 10-28-2024 Cysto w/destruction of lesions CYSTOSCOPY, WITH BLADDER LESION ABLATION Bladder tumor 10/28/2024 12:00 PM EST [facility] Start: 10-28-2024 End: 10-28-2024 Cysto w/urtroscopy&/pyeloscopy dx URETEROSCOPY Bladder tumor 10/28/2024 12:00 PM EST [facility] Start: 10-28-2024 End: 10-28-2024 X-ray urinary tract exam with contrast material CYSTOSCOPY, WITH RETROGRADE PYELOGRAM Bladder tumor 10/28/2024 12:00 PM EST [facility] Start: 10-28-2024 Subsequent hospital visit by physician 10/28/2024 10:30 AM EST Hospital Encounter [facility] OR [address] [place] [phone] Caleb Lucia MD [address] [place] [address] [facility] OR Start: 10-17-2024 End: 10-17-2024 Patient encounter procedure [facility] Start: 10-08-2024 End: 10-08-2024 Patient encounter procedure 10/08/2024 1:45 PM EST Procedure Visit [facility] [address] [place] [address] [facility] Start: 10-01-2024 End: 10-01-2025 Basic metabolic 2000 panel - Serum or Plasma Basic Metabolic Panel Lab Routine Nocturia Expected: 10/01/2024 (Approximate), Expires: 10/01/2025 [facility] Work Phone: Comment on above: Expected: 10/01/2024 (Approximate), Expi res: 10/01/2025 Start: 10-01-2024 End: 10-01-2025 Prostate specific Ag [Mass/volume] in Serum or Plasma Prostate Specific Antigen Lab Routine Nocturia Expected: 10/01/2024 (Approximate), Expires: 10/01/2025 [facility] Service Area Work Phone: Comment on above: Expected: 10/01/2024 (Approximate), Expi res: 10/01/2025 Start: 09-29-2024 End: 09-29-2025 Basic metabolic 2000 panel - Serum or Plasma Basic metabolic panel Lab Routine 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) Expected: 09/29/2024 (Approximate), Expires: 09/29/2025 [facility] Service Area Work Phone: Comment on above: Expected: 09/29/2024 (Approximate), Expi res: 09/29/2025 Start: 09-29-2024 End: 09-29-2024 Patient encounter procedure 09/29/2024 10:00 AM EST Office Visit [facility] [address] [place] [address] Adriana Howell DO [address] [place], [place] [id number] [facility] Start: 09-25-2024 End: 09-11-2025 Comprehensive metabolic 2000 panel - Serum or Plasma Comprehensive metabolic panel Lab Routine 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) Expected: 09/25/2024 (Approximate), Expires: 09/11/2025 [facility] Work Phone: Comment on above: Expected: 09/25/2024 (Approximate), Expi res: 09/11/2025 Start: 09-25-2024 End: 09-11-2025 Lipid 1996 panel - Serum or Plasma Lipid panel Lab Routine Mixed hyperlipidemia Expected: 09/25/2024 (Approximate), Expires: 09/11/2025 [facility] Work Phone: Comment on above: Expected: 09/25/2024 (Approximate), Expi res: 09/11/2025 Start: 09-25-2024 End: 09-11-2025 Magnesium [Mass/volume] in Serum or Plasma Magnesium Lab Routine 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) Expected: 09/25/2024 (Approximate), Expires: 09/11/2025 [facility] Work Phone: Comment on above: Expected: 09/25/2024 (Approximate), Expi res: 09/11/2025 Start: 09-25-2024 End: 09-11-2025 Microalbumin/Creatinine [Mass Ratio] in Urine Albumin-Creatinine Ratio, Urine Random Lab Routine 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) Expected: 09/25/2024 (Approximate), Expires: 09/11/2025 [facility] Work Phone: Comment on above: Expected: 09/25/2024 (Approximate), Expi res: 09/11/2025 Start: 09-25-2024 End: 09-11-2025 Nuclear Ab [Presence] in Serum by Hep2 substrate LUIZ with Reflex to STEPHANIE Lab Routine 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) Expected: 09/25/2024 (Approximate), Expires: 09/11/2025 [facility] Work Phone: Comment on above: Expected: 09/25/2024 (Approximate), Expi res: 09/11/2025 Start: 09-25-2024 End: 09-11-2025 Phosphate [Mass/volume] in Serum or Plasma Phosphorus Lab Routine 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) Expected: 09/25/2024 (Approximate), Expires: 09/11/2025 [facility] Work Phone: Comment on above: Expected: 09/25/2024 (Approximate), Expi res: 09/11/2025 Start: 09-25-2024 End: 09-11-2025 Thyrotropin [Units/volume] in Serum or Plasma TSH Lab Routine 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) Expected: 09/25/2024 (Approximate), Expires: 09/11/2025 [facility] Work Phone: Comment on above: Expected: 09/25/2024 (Approximate), Expi res: 09/11/2025 Start: 09-25-2024 End: 09-11-2025 Urate [Mass/volume] in Serum or Plasma Uric acid Lab Routine 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) Expected: 09/25/2024 (Approximate), Expires: 09/11/2025 [facility] Work Phone: Comment on above: Expected: 09/25/2024 (Approximate), Expi res: 09/11/2025 Start: 09-25-2024 End: 09-11-2025 Urinalysis complete panel - Urine Urinalysis with Reflex Microscopic Lab Routine 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) Expected: 09/25/2024 (Approximate), Expires: 09/11/2025 [facility] Work Phone: Comment on above: Expected: 09/25/2024 (Approximate), Expi res: 09/11/2025 Start: 09-23-2024 End: 09-23-2024 Patient encounter procedure 09/23/2024 10:00 AM EST Appointment [address] [phone] [facility] Start: 09-11-2024 End: 09-11-2025 US Kidney - bilateral and Urinary bladder US renal complete Imaging Routine 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) Expected: 09/11/2024, Expires: 09/11/2025 [facility] Service [facility] Work Phone: Comment on above: Expected: 09/11/2024, Expires: Start: 09-09-2024 End: 09-09-2024 Patient encounter procedure 09/09/2024 10:20 AM EST Office Visit [facility] [address] [facility] [address] [place] [address] Daniel Almanzar MD [address] [facility] [address] [place] [address] [facility] Start: 08-26-2024 End: 08-26-2024 Patient encounter procedure 08/26/2024 10:30 AM EST Office Visit [facility] [address] [place] [phone] Kapil Orozco MD [address] [place] [address] [facility] Start: 08-08-2024 Hemoglobin A1c measurement Diabetes: Hemoglobin A1C [facility] Start: 08-06-2024 Hemoglobin A1c measurement HbA1C [facility] Start: 08-05-2024 End: 08-05-2024 Patient encounter procedure 08/05/2024 11:00 AM EST Office Visit [facility] [address] [place] [address] Kapil Orozco MD [address] [place] [address] [facility] Start: 06-16-2024 End: 06-16-2025 Comprehensive metabolic 2000 panel - Serum or Plasma Comprehensive Metabolic Panel Lab Routine Type 2 diabetes mellitus with diabetic polyneuropathy, without long-term current use of insulin (Multi) Expected: 06/16/2024 (Approximate), Expires: 06/16/2025 [facility] Work Phone: Comment on above: Expected: 06/16/2024 (Approximate), Expi res: 06/16/2025 Start: 06-16-2024 End: 06-16-2025 Hemoglobin A1c/Hemoglobin.total in Blood Hemoglobin A1C Lab Routine Type 2 diabetes mellitus with diabetic polyneuropathy, without long-term current use of insulin (Multi) Expected: 06/16/2024 (Approximate), Expires: 06/16/2025 [facility] Work Phone: Comment on above: Expected: 06/16/2024 (Approximate), Expi res: 06/16/2025 Start: 06-16-2024 End: 06-16-2024 Patient encounter procedure 06/16/2024 11:20 AM EDT Office Visit [place] [address] [address] Daniel Almanzar MD [address] [address] [facility] Start: 06-06-2024 End: 06-06-2024 Patient encounter procedure 06/06/2024 9:40 AM EDT Office Visit [address] [address] Daniel Almanzar MD [address] [place] [address] [facility] Start: 06-05-2024 End: 06-05-2024 Patient encounter procedure 06/05/2024 9:15 AM EDT Office Visit [facility] [address] [place] [address] Kapil Orozco MD [address] [place] [address] [facility] Start: 06-04-2024 End: 06-04-2025 XR Shoulder - right 2 Views XR shoulder right 2+ views Imaging Routine Primary osteoarthritis of right shoulder Expected: 06/04/2024, Expires: 06/04/2025 [facility] Service Area Work Phone: Comment on above: Expected: 06/04/2024, Expires: Start: 05-30-2024 End: 05-30-2024 Patient encounter procedure 05/30/2024 10:40 AM EDT Office Visit [address] [address] Daniel Almanzar MD [address] [place] [address] [facility] Start: 05-25-2024 COVID-19 Vaccine ( season) COVID-19 Vaccine () [facility] Start: 05-25-2024 COVID-19 Vaccine () COVID-19 Vaccine () [facility] Start: 05-25-2024 Covid-19 Vaccine () Covid-19 Vaccine () [facility] Start: 05-25-2024 Influenza vaccination Influenza Vaccine (#1) [facility] Start: 05-08-2024 End: 02-05-2025 Comprehensive metabolic 2000 panel - Serum or Plasma Comprehensive Metabolic Panel Lab Routine Type 2 diabetes mellitus with diabetic polyneuropathy, without long-term current use of insulin (Multi) Expected: 05/08/2024 (Approximate), Expires: 02/05/2025 [facility] Service Area Work Phone: Comment on above: Expected: 05/08/2024 (Approximate), Expi res: 02/05/2025 Start: 05-08-2024 End: 02-05-2025 Hemoglobin A1c/Hemoglobin.total in Blood Hemoglobin A1C Lab Routine Type 2 diabetes mellitus with diabetic polyneuropathy, without long-term current use of insulin (Multi) Expected: 05/08/2024 (Approximate), Expires: 02/05/2025 [facility] Work Phone: Comment on above: Expected: 05/08/2024 (Approximate), Expi res: 02/05/2025 Start: 05-08-2024 End: 05-08-2024 Patient encounter procedure 05/08/2024 10:40 AM EDT Office Visit [facility] [address] [place] [address] Daniel Almanzar MD [address] [place] [address] [facility] Start: 05-06-2024 Hemoglobin A1c measurement Diabetes: Hemoglobin A1C [facility] Start: 04-01-2024 End: 04-01-2024 Patient encounter procedure 04/01/2024 10:30 AM EDT Office Visit [facility] [address] [place] [address] Kapil Orozco MD [address] [place] [address] [facility] Start: 03-04-2024 End: 03-04-2024 Patient encounter procedure 03/04/2024 10:00 AM EDT Office Visit [facility] [address] [place] [address] Kapil Orozco MD [address] [place] [address] [facility] Start: 02-06-2024 End: 12-06-2024 Comprehensive metabolic 2000 panel - Serum or Plasma Comprehensive Metabolic Panel Lab Routine Type 2 diabetes mellitus with diabetic polyneuropathy, without long-term current use of insulin (CMS/HCC) Expected: 02/06/2024 (Approximate), Expires: 12/06/2024 [facility] Service Area Work Phone: Comment on above: Expected: 02/06/2024 (Approximate), Expi res: 12/06/2024 Start: 02-06-2024 End: 12-06-2024 Hemoglobin A1c/Hemoglobin.total in Blood Hemoglobin A1C Lab Routine Type 2 diabetes mellitus with diabetic polyneuropathy, without long-term current use of insulin (CMS/HCC) Expected: 02/06/2024 (Approximate), Expires: 12/06/2024 [facility] Work Phone: Comment on above: Expected: 02/06/2024 (Approximate), Expi res: 12/06/2024 Start: 02-06-2024 End: 02-06-2024 Patient encounter procedure 02/06/2024 10:40 AM EDT Office Visit [facility] [address] [place] [address] Daniel Almanzar MD [address] [facility] [place] [address] [facility] Start: 01-22-2024 End: 01-21-2025 XR Shoulder - right 2 Views [facility] Service Area Work Phone: Comment on above: Expected: 01/22/2024, Expires: Once for 1 Occurrenc es starting 01/22/2024 until 01/22/2024 Start: 11-15-2023 Medicare Annual Wellness Visit Medicare Annual Wellness Visit (AWV) [facility] Start: 11-03-2023 Hemoglobin A1c measurement Diabetes: Hemoglobin A1C [facility] Start: 10-19-2023 COVID-19 Vaccine ( season) COVID-19 Vaccine ( season) [facility] Start: 10-19-2023 Covid-19 Vaccine ( season) Covid-19 Vaccine ( season) [facility] Start: 10-18-2023 End: 10-18-2023 Patient encounter procedure 10/18/2023 9:15 AM EST Office Visit [facility] [address] [place] [address] Kapil Orozco MD [address] [place] [address] [facility] Start: 10-03-2023 End: 10-03-2023 Patient encounter procedure 10/03/2023 10:40 AM EST Office Visit [facility] [address] [place] [address] Daniel Almanzar MD [address] [place] [address] [facility] Start: 10-02-2023 End: 10-02-2023 Patient encounter procedure 10/02/2023 10:30 AM EST Office Visit [facility] [address] [place] [address] Kapil Orozco MD [address] [place] [address] [facility] Start: 09-24-2023 Advance Directive Discussion Advance Directive Discussion [facility] Start: 09-24-2023 Behavioral Health Screening Behavioral Health Screening [facility] Start: 08-28-2023 End: 08-28-2024 MR Shoulder - right WO contrast MR shoulder right wo IV contrast Imaging Routine Chronic right shoulder pain Expected: 08/28/2023, Expires: 08/28/2024 [facility] Work Phone: Comment on above: Expected: 08/28/2023, Expires: 4 Start: 08-28-2023 End: 08-28-2023 Professional / ancillary services management 08/28/2023 1:45 PM EST Ancillary Procedure [facility] [address] [place] [address] Chronic right shoulder pain [facility] Comment on above: Chronic right shoulder pain Start: 08-27-2023 End: 08-27-2024 XR Shoulder - right 2 Views XR shoulder right 2+ views Imaging Routine Chronic right shoulder pain Expected: 08/27/2023, Expires: 08/27/2024 [facility] Service Area Work Phone: Comment on above: Expected: 08/27/2023, Expires: 4 Start: 08-24-2023 End: 08-24-2023 Patient encounter procedure 08/24/2023 9:20 AM EST Office Visit [facility] [address] [place] [address] Daniel Almanzar MD [address] [place] [id number] [facility] Start: 08-14-2023 COVID-19 Vaccine (5 - Moderna series) COVID-19 Vaccine (5 - Moderna series) [facility] Start: 08-03-2023 End: 08-03-2024 CBC panel - Blood by Automated count CBC Lab Routine Type 2 diabetes mellitus with diabetic polyneuropathy, without long-term current use of insulin (CMS/HCC) Primary hypertension Expected: 08/03/2023 (Approximate), Expires: 08/03/2024 [facility] Service Area Work Phone: Comment on above: Expected: 08/03/2023 (Approximate), Expi res: 08/03/2024 Start: 08-03-2023 End: 08-03-2024 Comprehensive metabolic 2000 panel - Serum or Plasma Comprehensive Metabolic Panel Lab Routine Type 2 diabetes mellitus with diabetic polyneuropathy, without long-term current use of insulin (CMS/HCC) Primary hypertension Expected: 08/03/2023 (Approximate), Expires: 08/03/2024 [facility] Work Phone: Comment on above: Expected: 08/03/2023 (Approximate), Expi res: 08/03/2024 Start: 08-03-2023 End: 08-03-2024 Hemoglobin A1c/Hemoglobin.total in Blood Hemoglobin A1C Lab Routine Type 2 diabetes mellitus with diabetic polyneuropathy, without long-term current use of insulin (CMS/HCC) Expected: 08/03/2023 (Approximate), Expires: 08/03/2024 [facility] Work Phone: Comment on above: Expected: 08/03/2023 (Approximate), Expi res: 08/03/2024 Start: 08-03-2023 End: 08-03-2023 Patient encounter procedure 08/03/2023 10:40 AM EST Office Visit [facility] [address] [place] [address] Daniel Almanzar MD [address] [place] [id number] [facility] Start: 07-19-2023 End: 07-19-2024 XR Pelvis 1 or 2 Views XR pelvis 1-2 views Imaging Routine Hip pain, bilateral Expected: 07/19/2023, Expires: 07/19/2024 [facility] Service Area Work Phone: Comment on above: Expected: 07/19/2023, Expires: Start: 07-19-2023 End: 07-19-2023 Patient encounter procedure 07/19/2023 10:15 AM EDT Office Visit [facility] [address] [place] [phone] Kapil Orozco MD [address] [place] [address] [facility] Start: 07-18-2023 Hemoglobin A1c measurement Diabetes: Hemoglobin A1C [facility] Start: 07-13-2023 NPV, Provider: Mirtha Gutiérrez, Status: Pen, Time: 11:00 AM NPV, Provider: Mirtha Gutiérrez, Status: Pen, Time: 11:00 AM [facility] [address] Work Phone: Start: 07-13-2023 End: 07-13-2023 Patient encounter procedure 07/13/2023 11:00 AM EDT Office Visit [facility] [address] [facility] 5th [place] [phone] Mirtha Gutiérrez MD [address] [facility] [address] [place] [address] [facility] Start: 07-02-2023 End: 07-02-2024 Basic metabolic 2000 panel - Serum or Plasma Basic Metabolic Panel Lab Routine Type 2 diabetes mellitus with diabetic polyneuropathy, without long-term current use of insulin ([facility]) Primary hypertension Expected: 07/02/2023 (Approximate), Expires: 07/02/2024 [facility] Service Area Work Phone: Comment on above: Expected: 07/02/2023 (Approximate), Expi res: 07/02/2024 Start: 06-21-2023 FUV, Provider: Kapil Orozco, Status: Pen, Time: 10:00 AM FUV, Provider: Kapil Orozco, Status: Pen, Time: 10:00 AM [facility] 300 Work Phone: Start: 06-16-2023 End: 05-16-2024 Basic metabolic 2000 panel - Serum or Plasma Basic Metabolic Panel Lab Routine Primary hypertension Expected: 06/16/2023 (Approximate), Expires: 05/16/2024 [facility] Service Area Work Phone: Comment on above: Expected: 06/16/2023 (Approximate), Expi res: 05/16/2024 Start: 05-25-2023 Influenza vaccination [facility] Start: 05-19-2023 Hemoglobin A1c measurement Diabetes: Hemoglobin A1C [facility] Start: 05-09-2023 PTEVALADUL, Provider: Giovanny Mays, Status: Julio, Time: 8:30 AM PTEVALADUL, Provider: Giovanny Mays, Status: Pen, Time: 8:30 AM [facility] 300 Work Phone: Start: 05-02-2023 End: 05-02-2024 Basic metabolic 2000 panel - Serum or Plasma Basic Metabolic Panel Lab Routine Primary hypertension Expected: 05/02/2023 (Approximate), Expires: 05/02/2024 [facility] Service Area Work Phone: Comment on above: Expected: 05/02/2023 (Approximate), Expi res: 05/02/2024 Start: 04-26-2023 FUV, Provider: Kapil Orozco, Status: Pen, Time: 9:45 AM FUV, Provider: Kapil Orozco, Status: Pen, Time: 9:45 AM [facility] 300 Work Phone: Start: 04-26-2023 Patient encounter procedure [facility] [place] Start: 04-17-2023 End: 04-17-2023 Patient encounter procedure 04/17/2023 9:00 AM EDT Office Visit [facility] [address] [place] [id number] Daniel Almanzar MD [address] [facility] [place] [address] [facility] Start: 03-29-2023 Hepatitis B surface antibody level LDL CHOLESTEROL [facility] Start: 03-29-2023 Lipid panel Lipid Panel [facility] Start: 02-22-2023 End: 02-23-2024 CBC panel - Blood by Automated count CBC Lab Routine Type 2 diabetes mellitus with diabetic polyneuropathy, without long-term current use of insulin (CMS/HCC) Expected: 02/22/2023 (Approximate), Expires: 02/23/2024 [facility] Service Area Work Phone: Comment on above: Expected: 02/22/2023 (Approximate), Expi res: 02/23/2024 Start: 02-22-2023 End: 02-23-2024 Comprehensive metabolic 2000 panel - Serum or Plasma Comprehensive Metabolic Panel Lab Routine Type 2 diabetes mellitus with diabetic polyneuropathy, without long-term current use of insulin (CMS/HCC) Expected: 02/22/2023 (Approximate), Expires: 02/23/2024 [facility] Work Phone: Comment on above: Expected: 02/22/2023 (Approximate), Expi res: 02/23/2024 Start: 02-22-2023 End: 02-23-2024 Hemoglobin A1c/Hemoglobin.total in Blood Hemoglobin A1C Lab Routine Type 2 diabetes mellitus with diabetic polyneuropathy, without long-term current use of insulin (CMS/HCC) Expected: 02/22/2023 (Approximate), Expires: 02/23/2024 [facility] Work Phone: Comment on above: Expected: 02/22/2023 (Approximate), Expi res: 02/23/2024 Start: 02-22-2023 End: 02-23-2024 Thyrotropin [Units/volume] in Serum or Plasma Thyroid Stimulating Hormone Lab Routine Type 2 diabetes mellitus with diabetic polyneuropathy, without long-term current use of insulin ([facility]) Expected: 02/22/2023 (Approximate), Expires: 02/23/2024 [facility] Work Phone: Comment on above: Expected: 02/22/2023 (Approximate), Expi res: 02/23/2024 Start: 02-15-2023 Glaucoma screening Diabetes: Retinopathy Screening [facility] Start: 02-15-2023 Ophthalmic examination and evaluation Diabetes: Retinopathy Screening [facility] Start: 11-21-2022 COVID-19 VACCINE (6 - Moderna series) COVID-19 VACCINE (6 - Moderna series) [facility] Start: 11-16-2022 POV, Provider: Selina Bhakta, Status: Pen, Time: 11:15 AM POV, Provider: Selina Bhakta, Status: Pen, Time: 11:15 AM [facility] Work Phone: Start: 11-07-2022 EPV, Provider: Daniel Almanzar, Status: Pen, Time: 10:00 AM EPV, Provider: Daniel Almanzar, Status: Pen, Time: 10:00 AM [facility] [place]: Start: 11-01-2022 H/O: surgery History of removal of cyst Date: 01-Nov-2022 Comments: scalp [facility] Comment on above: scalp Start: 11-01-2022 [facility], Provider: Selina Bhakta, Status: Pen, Time: 8:30 AM [facility], Provider: Selina Bhakta, Status: Pen, Time: 8:30 AM [facility] Work Phone: Start: 09-24-2022 ADVANCE DIRECTIVE DISCUSSION ADVANCE DIRECTIVE DISCUSSION [facility] Start: 09-24-2022 DEPRESSION ASSESSMENT DEPRESSION ASSESSMENT [facility] Start: 09-18-2022 COVID-19 Vaccine (5 - Booster for Moderna series) COVID-19 Vaccine (5 - Booster for Moderna series) [facility] Start: 09-18-2022 COVID-19 Vaccine (5 - Moderna series) COVID-19 Vaccine (5 - Moderna series) [facility] Start: 08-07-2022 EPV, Provider: Daniel Almanzar, Status: Pen, Time: 10:00 AM EPV, Provider: Daniel Almanzar, Status: Pen, Time: 10:00 AM [facility] Work Phone: Start: 05-25-2022 Influenza vaccination INFLUENZA (#1) [facility] Start: 05-23-2022 EPV, Provider: Daniel Almanzar, Status: Pen, Time: 9:40 AM EPV, Provider: Daniel Almanzar, Status: Pen, Time: 9:40 AM [facility] Work Phone: Start: 05-17-2022 ECHO, Provider: ERICK HHVI ECHO 2,SMCECHO2, Status: Pen, Time: 12:30 PM ECHO, Provider: ERICK HHVI ECHO 2,SMCECHO2, Status: Pen, Time: 12:30 PM [employer] [facility] Work Phone: Start: 05-12-2022 PVRWITHABI, Provider: ERICK VASCULAR LAB 2,SMCVASLAB2, Status: Pen, Time: 10:00 AM P[facility]ABI, Provider: ERICK VASCULAR LAB 2,SMCVASLAB2, Status: Pen, Time: 10:00 AM [facility] Work Phone: Start: 05-08-2022 EPV, Provider: Daniel Almanzar, Status: Pen, Time: 9:00 AM EPV, Provider: Daniel Almanzar, Status: Pen, Time: 9:00 AM [facility] Work Phone: Start: 04-06-2022 EPV, Provider: Daniel Almanzar, Status: Pen, Time: 8:20 AM EPV, Provider: Daniel Almanzar, Status: Pen, Time: 8:20 AM [facility] [place] Phone: Start: 03-07-2022 COVID-19 VACCINE (5 - Booster for Moderna series) COVID-19 VACCINE (5 - Booster for Moderna series) [facility] Start: 10-07-2021 EPV, Provider: Daniel Almanzar, Status: Pen, Time: 8:20 AM EPV, Provider: Daniel Almanzar, Status: Pen, Time: 8:20 AM [facility] [place] Work Phone: Start: 09-24-2021 ADVANCE DIRECTIVE DISCUSSION ADVANCE DIRECTIVE DISCUSSION [facility] Start: 09-24-2021 DEPRESSION ASSESSMENT DEPRESSION ASSESSMENT [facility] Start: 2015 RSV High Risk: (Elderly (60+) or Population) (1 - 1-dose 75+ series) RSV High Risk: (Elderly (60+) or Population) (1 - 1-dose 75+ series) [facility] Start: 2015 RSV Vaccine (1 - 1-dose 75+ series) RSV Vaccine (1 - 1-dose 75+ series) [facility] Start: 2015 [facility] Start: 06-02-2014 Pneumococcal Vaccine: 65+ Years (2 - PCV) Pneumococcal Vaccine: 65+ Years (2 - PCV) [facility] Start: 2005 PNEUMOCOCCAL: 65+ (1 - PCV) PNEUMOCOCCAL: 65+ (1 - PCV) [facility] Start: 2000 RSV patients and/or patients aged 60+ years (1 - 1-dose 60+ series) RSV patients and/or patients aged 60+ years (1 - 1-dose 60+ series) [facility] Start: 2000 RSV Vaccine (1 - 1-dose 60+ series) RSV Vaccine (1 - 1-dose 60+ series) [facility] Start: 1990 SHINGRIX VACCINE (1 of 2) SHINGRIX VACCINE (1 of 2) [facility] Start: 1990 Zoster Vaccines (1 of 2) Zoster Vaccines (1 of 2) [facility] Start: 1990 [facility] Start: 1985 DIABETES SCREEN DIABETES SCREEN [facility] Start: 1962 DTaP/Tdap/Td Vaccines (1 - Tdap) DTaP/Tdap/Td Vaccines (1 - Tdap) [facility] Start: 1959 Urine microalbumin profile [facility] Start: 1959 Urine screening for protein Diabetes: Urine Protein Screening [facility] Start: 1958 Anxiety Screening Anxiety Screening [facility] Start: 1958 Depression Screening Depression Screening [facility] Start: 1958 Hepatitis B surface antibody level LDL CHOLESTEROL [facility] Start: 1950 3 comp foot exam completed DIABETIC FOOT EXAM [facility] Start: 1950 Diabetic foot examination [facility] Start: 1950 Glaucoma screening Dilated Retinal Exam [facility] Start: 1950 Hepatitis B screening URINE ALBUMIN:CREATININE RATIO [facility] Start: 1950 Hepatitis C antibody, confirmatory test DILATED RETINAL EXAM [facility] Start: 1950 Ophthalmic examination and evaluation Diabetes: Retinopathy Screening [facility] Start: 1946 PNEUMOCOCCAL: 65+ (1 - PCV) PNEUMOCOCCAL: 65+ (1 - PCV) [facility] Start: 1945 Hemoglobin A1c/Hemoglobin.total in Blood HBA1C [facility] Start: 01-04-1941 COVID-19 VACCINE (#1) COVID-19 VACCINE (#1) [facility] Start: 1940 Diabetes: Celiac Disease Screening Diabetes: Celiac Disease Screening [facility] Start: 1940 Medicare Annual Wellness Visit Medicare Annual Wellness Visit (AWV) [facility] Bacteria identified in Blood by Culture [facility] Work Phone: End: 02-28-2025 Bacteria identified in Urine by Culture [facility] Work Phone: Comment on above: Once (Lab) for 1 Occurrences starting until 02/28/2025 End: 03-17-2025 Bacteria identified in Urine by Culture [facility] Work Phone: Comment on above: Once (Lab) for 1 Occurrences starting until 03/17/2025 End: 03-30-2025 Blood type and Indirect antibody screen panel - Blood Type And Screen Lab Timed As needed (Lab) until discontinued starting 03/30/2025 [facility] Work Phone: Comment on above: As needed (Lab) until discontinued start ing 03/30/2025 End: 10-24-2024 CBC panel - Blood by Automated count CBC Lab Routine Morning draw (Lab) for 5 Days starting 10/20/2024 until 10/24/2024, 1 completed [facility] Work Phone: Comment on above: Morning draw (Lab) for 5 Days starting 0 10/20/2024 until 10/24/2024, 1 completed End: 07-13-2025 Determination of physical activity tolerance [facility] Work Phone: End: 05-29-2024 ECG 12 lead ECG 12 lead ECG STAT Once for 1 Occurrences starting 05/29/2024 until 05/29/2024 [facility] Work Phone: Comment on above: Once for 1 Occurrences starting 05/29/20 until 05/29/2024 ECG 12 lead ECG 12 lead ECG STAT 10/18/2024 3:40 PM EST [facility] Work Phone: End: 03-04-2025 ECG 12 lead [facility] Work Phone: Comment on above: Every 1 hour for 2 Occurrences starting 03/04/2025 until 03/04/2025, 1 completed As needed until disc ontinued starting 03/04/2025 End: 03-05-2025 ECG 12 Lead [facility] Work Phone: Comment on above: Once for 1 Occurrences starting 03/05/20 until 03/05/2025 ECG 12 lead daily [facility] Work Phone: ECG 12 lead STAT ECG 12 lead STA T ECG Routine 01/19/2025 10:55 AM EDT [facility] Work Phone: Electrocardiogram 12 Lead Electr ocardiogram 12 Lead ECG Routine 01/19/2025 8:10 AM [facility] Work Phone: Electrocardiogram, 12-lead PRN ACS symptoms Electrocardiogram, 12-lead PRN ACS symptoms ECG Routine As needed until discontinued starting 10/18/2024 [facility] Work Phone: Comment on above: As needed until discontinued starting Electrocardiogram, 12-lead PRN ACS symptoms Electrocardiogram, 12-lead PRN ACS symptoms ECG Routine As needed until discontinued starting 10/19/2024 [facility] Work Phone: Comment on above: As needed until discontinued starting Electrocardiogram, 12-lead PRN ACS symptoms [facility] Work Phone: End: 05-29-2024 Extra Urine Sun Tube [facility] Work Phone: Comment on above: Once for 1 Occurrences starting 05/29/20 until 05/29/2024 End: 09-26-2024 Extra Urine Sun Tube [facility] Work Phone: Comment on above: Once for 1 Occurrences starting 09/26/19 until 09/26/2024 End: 10-18-2024 Extra Urine Sun Tube Extra Urine Sun Tube Lab Timed Once for 1 Occurrences starting 10/18/2024 until 10/18/2024 [facility] Work Phone: Comment on above: Once for 1 Occurrences starting 10/18/19 until 10/18/2024 End: 02-28-2025 Extra Urine Sun Tube Extra Urine Sun Tube Lab Timed Once for 1 Occurrences starting 02/28/2025 until 02/28/2025 [facility] Work Phone: Comment on above: Once for 1 Occurrences starting 02/29/20 until 02/28/2025 Extra Urine Sun Tube Extra Urin e Sun Tube Lab STAT 02/28/2025 2:26 AM [facility] Work Phone: End: 03-17-2025 Extra Urine Sun Tube [facility] Work Phone: Comment on above: Once for 1 Occurrences starting 03/17/20 until 03/17/2025 End: 01-19-2025 Gas panel - Mixed venous blood [facility] Work Phone: Comment on above: Once (Lab) for 1 Occurrences starting until 01/19/2025 End: 10-21-2024 Glucose [Mass/volume] in Serum or Plasma POCT Glucose Point of Care Testing - Docked Device Routine 4 times daily before meals and at bedtime for 3 Days starting 10/19/2024 until 10/21/2024, 6 completed [facility] Work Phone: Comment on above: 4 times daily before meals and at bedtim e for 3 Days starting 10/19/2024 until 10/21/2024, 6 completed Glucose [Mass/volume ] in Serum or Plasma POCT Glucose Point of Care Testing - Docked Device Routine As needed (Lab) until discontinued starting 10/19/2024 [facility] Work Phone: Comment on above: As needed (Lab) until discontinued start ing 10/19/2024 End: 03-07-2025 Glucose [Mass/volume] in Serum or Plasma POCT Glucose Point of Care Testing - Docked Device Routine 4 times daily before meals and at bedtime for 3 Days starting 03/04/2025 until 03/07/2025, 3 completed [facility] Work Phone: Comment on above: 4 times daily before meals and at bedtim e for 3 Days starting 03/04/2025 until 03/07/2025, 3 completed Glucose [Mass/volume ] in Serum or Plasma POCT Glucose Point of Care Testing - Docked Device Routine As needed (Lab) until discontinued starting 03/04/2025 [facility] Work Phone: Comment on above: As needed (Lab) until discontinued start ing 03/04/2025 End: 03-30-2025 Glucose [Mass/volume] in Serum or Plasma POCT Glucose Point of Care Testing - Docked Device Routine Once (Lab) for 1 Occurrences starting 03/30/2025 until 03/30/2025 [facility] Work Phone: Comment on above: Once (Lab) for 1 Occurrences starting until 03/30/2025 Glucose [Mass/volume ] in Serum or Plasma [facility] Work Phone: Glucose [Mass/volume ] in Serum or Plasma [facility] Work Phone: End: 10-19-2024 Hemoglobin.gastrointestin al [Presence] in Stool --1st specimen Occult Blood, Stool Microbiology Routine Once (Lab) for 1 Occurrences starting 10/19/2024 until 10/19/2024 [facility] Work Phone: Comment on above: Once (Lab) for 1 Occurrences starting until 10/19/2024 History of appendectomy History of append ectomy [facility] History of cataract extraction History of cataract extraction [facility] End: 03-05-2025 Holter monitor study [facility] Work Phone: Comment on above: Once for 1 Occurrences starting 03/05/20 until 03/05/2025 End: 07-13-2025 Incentive spirometry Instruct [facility] Work Phone: Laser enucleation prostate w/morcellation ENUCLEATION, ANATOMICAL, PROSTATE, ENDOSCOPIC Benign prostatic hyperplasia with urinary retention [facility] OR End: 10-24-2024 Magnesium [Mass/volume] in Serum or Plasma Magnesium Lab Routine Morning draw (Lab) for 5 Days starting 10/20/2024 until 10/24/2024, 1 completed [facility] Work Phone: Comment on above: Morning draw (Lab) for 5 Days starting 0 10/20/2024 until 10/24/2024, 1 completed End: 07-13-2025 Pulse oximetry, continuous [facility] Work Phone: End: 10-24-2024 Renal function 2000 panel - Serum or Plasma Renal Function Panel Lab Routine Morning draw (Lab) for 5 Days starting 10/20/2024 until 10/24/2024, 1 completed [facility] Work Phone: Comment on above: Morning draw (Lab) for 5 Days starting 0 10/20/2024 until 10/24/2024, 1 completed Surgical pathology study [facility] Work Phone: Comment on above: Release Upon Ordering for 1 Occurrences starting 03/30/2025, 1 completed End: 05-29-2024 Urinalysis complete W Reflex Culture panel - Urine [facility] Service Area Work Phone: Comment on above: Once (Lab) for 1 Occurrences starting until 05/29/2024 End: 09-26-2024 Urinalysis complete W Reflex Culture panel - Urine [facility] Service Area Work Phone: Comment on above: STAT (Lab) for 1 Occurrences starting until 09/26/2024 End: 10-18-2024 Urinalysis complete W Reflex Culture panel - Urine [facility] Service Area Work Phone: Comment on above: Once (Lab) for 1 Occurrences starting until 10/18/2024 End: 02-28-2025 Urinalysis complete W Reflex Culture panel - Urine Urinalysis with Reflex Culture and Microscopic Lab STAT Once (Lab) for 1 Occurrences starting 02/28/2025 until 02/28/2025 [facility] Service Area Work Phone: Comment on above: Once (Lab) for 1 Occurrences starting until 02/28/2025 Urinalysis complete W Reflex Culture panel - Urine Urinalysis with Reflex Culture and Microscopic Lab STAT 02/28/2025 2:26 AM [facility] Work Phone: End: 03-17-2025 Urinalysis complete W Reflex Culture panel - Urine [facility] Service Area Work Phone: Comment on above: Once (Lab) for 1 Occurrences starting until 03/17/2025 End: 09-23-2024 US Kidney - bilateral and Urinary bladder [facility] Service Area Work Phone: Comment on above: Once for 1 Occurrences starting 09/23/20 until 09/23/2024 XR Shoulder - right 2 Views XR shoulder right 2+ views Imaging Routine Chronic right shoulder pain 08/28/2023 12:00 PM EST [facility] Work Phone: End: 06-05-2024 XR Shoulder - right 2 Views [facility] Service Area Work Phone: Comment on above: Once for 1 Occurrences starting 06/05/20 24 until 06/05/2024 [facility] Immunizations Immunization Date Immunization Notes Care Provider [place] 06-26-2024 influenza virus vacc ine, unspecified formulation Matilde Regan MD Work Phone: [facility] Work Phone: 05-29-2024 tetanus toxoid, redu austin diphtheria toxoid, and acellular pertussis vaccine, adsorbed Sanya Shin DO Work Phone: [facility] 11-05-2023 Pneumococcal conjuga te vaccine, 20-valent (PREVNAR 20) Daniel Almanzar MD Work Phone: [facility] Work Phone: 07-12-2023 Flu vaccine, quadrivalent, high-dose, preservative free, age 65y+ (FLUZONE) Kapil Orozco MD Work Phone: [facility] Work Phone: 07-12-2023 influenza virus vacc ine, unspecified formulation Daniel Almanzar MD Work Phone: [facility] Work Phone: 06-19-2023 Moderna COVID-19 vaccine, Fall 2022, 12 yeasrs and older (50mcg/0.5mL) Kapil Orozco MD Work Phone: [facility] Work Phone: 07-24-2022 Fluzone High-Dose Quadrivalent 0.7 ML Intramuscular Suspension Prefilled Syringe Daniel Almanzar Work Phone: [facility] Work Phone: 07-24-2022 Moderna COVID-19 Biv al Booster 50 MCG/0.5ML Intramuscular Suspension Daniel Dioni Almanzar Work Phone: [facility] 07-24-2022 influenza virus vacc ine, unspecified formulation Daniel Almanzar MD Work Phone: [facility] Work Phone: 2022 Fluzone High-Dose Quadrivalent 0.7 ML Intramuscular Suspension Prefilled Syringe Daniel Almanzar Work Phone: [facility] 01-10-2022 Moderna COVID-19 Vac cine 100 MCG/0.5ML Intramuscular Suspension Daniel Almanzar Work Phone: [facility] Work Phone: 07-21-2021 Moderna COVID-19 Vac cine 100 MCG/0.5ML Intramuscular Suspension Daniel Almanzar Work Phone: [facility] Work Phone: 11-12-2020 Moderna COVID-19 Vac cine 100 MCG/0.5ML Intramuscular Suspension Daniel Almanzar Work Phone: [facility] 10-15-2020 Moderna COVID-19 Vac cine 100 MCG/0.5ML Intramuscular Suspension Daniel Dioni Almanzar Work Phone: [facility] 06-02-2013 pneumococcal polysaccharide vaccine, 23 valent Daniel Almanzar Work Phone: [facility] Work Phone: Comment on above: Series: 07-30-2008 influenza virus vacc ine, whole virus Daniel Almanzar Work Phone: [facility] 08-02-2007 influenza virus vacc ine, whole virus Daniel Almanzar Work Phone: [facility] Payers Date Payer Category Payer Self-pay 2021 Medicare [facility] MEDICARE [employer] MEDICARE ADVANTAGE [id number] 2021-Present [address] [place] [address] [id number] 2021 Medicare (Managed Care) 1.2. [id number] 2021 Unknown 2021 Unknown [id number] 1940 Unknown [id number] [id number] .1069 1940 Unknown [id number] 2.16.840.1.181027.3.579.2 .106 1940 Unknown [id number] 2.16.840.1.034060.3.579.2 .1069 1940 Unknown [id number] 2.16.840.1.836794.3.579.2 .1069 1940 Unknown [id number] 2.16.840.1.283985.3.579.2 .1243 1940 Unknown [id number] 2.16.840.1.339284.3.579.2 .1243 1940 Unknown [id number] 2.16.840.1.235374.3.579.2 .1243 1940 Unknown [id number] 2.16.840.1.791176.3.579.2 .1243 1940 Unknown [id number] 2.16.840.1.405987.3.579.2 .1243 1940 Unknown [id number] 2.16.840.1.477836.3.579.2 .1242 1940 Unknown [id number] 2.16.840.1.355268.3.579.2 .1243 1940 Unknown [id number] 2.16.840.1.118280.3.579.2 .1243 1940 Unknown [id number] 2.16.840.1.557585.3.579.2 .3 1940 Unknown [id number] 2.16.840.1.355829.3.579.2 .1243 1940 Unknown [id number] 2.16.840.1.351308.3.579.2 .3 1940 Unknown [id number] 2.16.840.1.072081.3.579.2 .3 1940 Unknown [id number] 2.16.840.1.187018.3.579.2 .1242 1940 Unknown [id number] 2.16.840.1.651750.3.579.2 .3 1940 Unknown [id number] 2.16.840.1.630123.3.579.2 .1242 1940 Unknown [id number] 2.16.840.1.555328.3.579.2 .4 1940 Unknown [id number] 2.16.840.1.751331.3.579.2 .1243 1940 Unknown [id number] 2.16.840.1.684971.3.579.2 .4 1940 Unknown [id number] 2.16.840.1.671325.3.579.2 .4 1940 Unknown [id number] 2.16.840.1.299247.3.579.2 .4 1940 Unknown [id number] 2.16.840.1.207072.3.579.2 .4 1940 Unknown [id number] 2.16.840.1.628893.3.579.2 .4 1940 Unknown [id number] 2.16.840.1.666692.3.579.2 .1243 1940 Unknown [id number] 2.16.840.1.729989.3.579.2 .1244 1940 Unknown [id number] 2.16.840.1.062675.3.579.2 .1244 1940 Unknown [id number] 2.16.840.1.808677.3.579.2 .1244 1940 Unknown [id number] 2.16.840.1.136067.3.579.2 .4 1940 Unknown [id number] 2.16.840.1.779823.3.579.2 .4 1940 Unknown [id number] 2.16.840.1.279579.3.579.2 .1244 1940 Unknown [id number] 2.16.840.1.299339.3.579.2 .4 1940 Unknown [id number] 2.16.840.1.091086.3.579.2 .1244 1940 Unknown [id number] 2.16.840.1.486956.3.579.2 .4 1940 Unknown [id number] 2.16.840.1.776909.3.579.2 .1244 1940 Unknown [id number] 2.16.840.1.018768.3.579.2 .1244 1940 Unknown [id number] 2.16.840.1.345368.3.579.2 .1244 1940 Unknown [id number] 2.16.840.1.327389.3.579.2 .4 1940 Unknown [id number] 2.16.840.1.727149.3.579.2 .1242 1940 Unknown [id number] 2.16.840.1.581470.3.579.2 .1241 1940 Unknown [id number] 2.16.840.1.773697.3.579.2 .1242 1940 Unknown [id number] 2.16.840.1.531636.3.579.2 .1242 1940 Unknown [id number] 2.16.840.1.172194.3.579.2 .1242 1940 Unknown [id number] 2.16.840.1.569110.3.579.2 .124 1940 Unknown [id number] 2.16.840.1.856785.3.579.2 .124 1940 Unknown [id number] 2.16.840.1.138153.3.579.2 .1241 1940 Unknown [id number] 2.16.840.1.744409.3.579.2 .1241 1940 Unknown [id number] 2.16.840.1.762575.3.579.2 .124 1940 Unknown [id number] 2.16.840.1.250695.3.579.2 .6 1940 Unknown [id number] 2.16.840.1.191841.3.579.2 .1246 1940 Unknown [id number] 2.16.840.1.225851.3.579.2 .1245 1940 Unknown [id number] 2.16.840.1.518537.3.579.2 .124 1940 Unknown [id number] 2.16.840.1.662706.3.579.2 .1244 1940 Unknown [id number] 2.16.840.1.638835.3.579.2 .1245 1940 Unknown [id number] 2.16.840.1.810250.3.579.2 .124 Unknown [id number] 2.16.840.1.211404.3.579.2 .462 Unknown [id number] 2.16.840.1.235081.3.579.2 .462 Unknown [id number] 2.16.840.1.695998.3.579.2 .462 Unknown [id number] 2.16.840.1.669703.3.579.2 .462 Unknown [id number] 2.16.840.1.688512.3.579.2 .462 Unknown [id number] 2.16.840.1.597558.3.579.2 .462 Social History Date Type Detail Facility Start: 02-22-2023 End: 07-13-2025 Alcohol consumption one to two days per week Alcohol consumption one to two days per week [facility] Work Phone: Tobacco smoking stat [facility] Tobacco smoking consumption unknown [facility] Start: 1940 Sex Assigned At Not on file C [facility] Start: 01-03-2023 End: 02-06-2024 Tobacco smoking status NHIS Ex-smoker [facility] End: 09-24-1988 History of tobacco use Current smoker [facility] End: 09-24-1988 History of tobacco use Cigarette Smoker [facility] Start: 01-03-2023 End: 02-06-2024 Tobacco use and exposure Smokeless tobacco non-user [facility] Start: 01-03-2023 End: 03-17-2025 Alcohol intake Lifetime non-drinker (finding) [facility] Start: 02-22-2023 End: 05-16-2023 Tobacco smoking status KSIS Never smoked tobacco [facility] Start: 02-22-2023 End: 07-13-2025 Tobacco use panel [facility] Work Phone: Start: 02-12-2023 End: 03-04-2025 Exposure to SARS-CoV-2 (event) Not sure [facility] Start: 08-19-2022 National Score (1-100), lower number is lower risk 58 [facility] Start: 1940 Sex assigned at Male U [facility] Start: 09-26-2024 Gender identity Identifies as male gender (finding) [facility] Work Phone: Start: 09-21-2024 End: 10-01-2024 Exposure to SARS-CoV-2 (event) Yes [facility] Has the [place], or water [employer] threatened to shut off services in your home in past 12Mo No [facility] How often to you hav e a drink containing alcohol? Never [facility] (I/We) worried paula er (my/our) food would run out before (I/we) got money to buy more. Never true [facility] Work Phone: How often do you fee l lonely or isolated from those around you [CMS Assessment] Rarely [facility] Work Phone: How often do you nee d to have someone help you when you read instructions, pamphlets, or other written material from your doctor or pharmacy [SILS] Often [facility] Work Phone: How often do you fee l lonely or isolated from those around you [CMS Assessment] Sometimes [facility] Work Phone: Start: 03-23-2025 End: 07-15-2025 Alcoholic beverage intake Ex-drinker (finding) [facility] Work Phone: Start: 08-19-2022 Sex Male (finding) [facility] How hard is it for y ou to pay for the very basics like food, housing, medical care, and heating Not very hard [facility] NEGATED: Highlighted rowStart: NINF History of tobacco use Passive smoker [facility] Medical Equipment Procedure Code Equipment Code Equipment Origin al Text Equipment Identifier Dates USE TO TEST BLOO D SUGAR ONCE DAILY, DX E11.9 # 100 [id number] Start: 10-06-2019 1 strip once daily. [id number] Start : 06-14-2023 End: 06-16-2024 1 strip once daily. [id number] Start : 06-16-2024 End: 06-16-2025 1 each once daily. [id number] Start: 05-08-2024 [id number] Start: 01-19-2025 [id number] Start: 01-19-2025 1 each once daily. [id number] Start: 05-21-2025 1 strip early in the morning.. [id number] Start: 06-25-2025 [id number] Start: 07-13-2025 Goals Date Patient Goal Desired Activity /State Personal health goal Functional Status Date Assessment Result Facility 07-26-2025 Functional status 144/67 [facility] 07-26-2025 Vital signs [facility] Work Phone: 07-15-2025 Functional status none [facility] 07-14-2025 Functional status [facility] Work Phone: 07-14-2025 [facility] Work Phone: 07-13-2025 Patient Health Questionnaire 2 item (PHQ-2) [Reported] [facility] Work Phone: 07-13-2025 [facility] s everity rating scale screener - recent [C-SSRS] [facility] Work Phone: 07-13-2025 Total score [AUDIT-C] [facility] Work Phone: 07-13-2025 Functional status [facility] Work Phone: 07-13-2025 [facility] Work Phone: 07-13-2025 Functional status [facility] Work Phone: 07-13-2025 [facility] Work Phone: 07-13-2025 Functional status 3 [facility] Work Phone: 07-13-2025 [facility] Work Phone: 07-01-2025 Functional status 130/62 [facility] Work Phone: 07-01-2025 Vital signs 63 07/01/2025 2: 29 PM EDT Michaela Pham LPN [facility] Work Phone: 07-01-2025 [facility] Work Phone: 03-17-2025 Lolo - suicide s everity rating scale screener - recent [C-SSRS] [facility] Work Phone: 03-11-2025 Patient Health Questionnaire 2 item (PHQ-2) [Reported] [facility] Work Phone: 03-04-2025 Total score [AUDIT-C] 0 03/04/20 5:33 PM EDT Ashley Solano RN [facility] Work Phone: 03-04-2025 Patient Health Questionnaire 2 item (PHQ-2) [Reported] [facility] Work Phone: 03-04-2025 Lolo - suicide s everity rating scale screener - recent [C-SSRS] [facility] Work Phone: 02-28-2025 Lolo - suicide s everity rating scale screener - recent [C-SSRS] [facility] Work Phone: 02-20-2025 Patient Health Questionnaire 2 item (PHQ-2) [Reported] [facility] 02-20-2025 How difficult have t hese problems made it for you to do your work, take care of things at home, or get along with other people? Not difficult at all 02/20/2025 2:00 PM EDT Raysa Cosme, RN Not difficult at all [facility] Work Phone: 02-20-2025 PHQ-9 quick depressi on assessment panel [Reported.PHQ] [facility] Work Phone: 01-19-2025 Lolo - suicide s everity rating scale screener - recent [C-SSRS] [facility] Work Phone: 12-08-2024 Patient Health Questionnaire 2 item (PHQ-2) [Reported] [facility] Work Phone: [facility] Work Phone: [facility] Mental Status Date Assessment Result Facility 07-24-2025 Cognitive function finding Negative U [facility] Work Phone: [facility] Work Phone: Clinical Notes 02-20-2022 to 07-27-2025 Lety Villalobos RN - 07/26/2025 10:01 AM Neelima Reddy RN - 07/19/2025 8:26 AM Tracey Daniels RN - 07/17/2025 6:28 PM Tracey Daniels RN - 07/17/2025 3:23 PM EDTDischarge Instructions Note Date & Type Note Facility 07-27-2025 Note [facility] Medical Records Department [address] [place] [id number] History Physical Exam 07/27/25 0902 MR#: [id number] Acct: [id number] Name: KITTY VERGARA Rep #: [id number] : 1940 85 From: Indigo Mello DO PCP: Dr. Daniel Almanzar MD Status:ADM IN Location: [place] [address] 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 Postoperatively he developed aphasia and right-sided weakness. CT scan of the brain and CTA were unremarkable except for old strokes (pt's stated he had never been diagnosed with a stroke). MRI of the brain was compatible with scattered areas of acute to early subacute infarction within the bilateral cerebral hemispheres and within the left cerebellar hemisphere. The dominant area of acute to early subacute infarction was identified in the left temporal parietal region. Limited transthoracic echocardiogram on 07/14/2025 showed a 62% ejection fraction. He had previously had an echocardiogram that showed no [id number] shunt. On 07/16/2025 he was seen by psychiatry for agitation and was diagnosed with delirium. He was started on Zyprexa 2.5 mg nightly with 2.5 mg as needed for agitation. Zyprexa was eventually increased to 5 mg at at bedtime and trazodone 25 mg nightly was ordered. He was transferred to the acute inpatient rehab unit at [facility] on 07/26/2025 for 3 hours of therapy daily to restore function/independence as close as possible to his baseline prior to TAVR. He had a De Oliveira catheter present at presentation to rehab. Hemoglobin A1c was 6.6% on 03/09/2025. LDL is 76. An incidental finding on the CT of the head and neck showed an enlarged and heterogeneous appearance of the right thyroid lobe with a focal lesion measuring up to 3.1 cm. 07/28/25 1451 Cosigner Signature (if applicable): cc: Dr. Indigo Mello DO; Dr. Daniel Almanzar MD * Signed [facility] Date of Admission: 07/26/25 Date of Service: 07/27/25 Chief Complaint: Post Stroke debility HPI Narrative KITTY VERGARA, is a 85 YO M with a PMH of PCI to the to LAD in 2024, aortic stenosis, tobacco dependence in remission, CRF stage IV, LVH, LAE, mild MR, HTN, HLD, DM II, BPH with urine retention, obesity, GERD, OA, bradycardia (resolved with DC BB), peripheral neuropathy and gout who presents [ ] Has a De Oliveira catheter present at admission to rehab. UA show no nitrites, no ketones, 0-5 RBCs, 0-5 WBCs and no bacteria. [facility] Medical History (Updated 07/27/25 @ 17:[address] Indigo Mello DO) Remote history of stroke Coronary artery disease Diabetes mellitus, type 2 Chronic renal failure (CRF), stage 4 (severe) Benign prostatic hyperplasia Neuropathy Nonrheumatic aortic (valve) stenosis Osteoarthritis Heart failure Gout Hyperlipidemia Hypertension GERD (gastroesophageal reflux disease) Stroke/cerebrovascular accident Home Medications ???Medication ???Instructions ???Recorded ???Last Taken ???Type allopurinol 300 mg tablet 100 mg PO DAILY gout 07/26/25 Unkn own History amlodipine 10 mg tablet 10 mg PO DAILY bp 07/26/25 Unknown History aspirin 81 mg chewable tablet 1 tab PO DAILY heart 07/26/25 Unkn own History bumetanide 0.5 mg tablet 0.5 mg PO DAILY diuretic 07/26/25 Unknown History clopidogrel 75 mg tablet 75 mg PO DAILY blood thinner 07/26 Unknown History empagliflozin 10 mg tablet 10 mg PO DAILY dm 07/26/25 Unknown History (Jardiance) ezetimibe 10 mg tablet 10 mg PO DAILY cholesterol 5 Unknown History gabapentin 300 mg capsule 300 mg PO BID pain 07/26/25 Unknow n History insulin glargine 100 19 unit subcut DAILY dm 07/26/25 U nknown History unit-lixisenatide 33 mcg/mL subcutaneous pen (Soliqua 100/33) lansoprazole 15 mg capsule,delayed 15 mg PO DAILY gerd 07/26/25 Unk nown History release melatonin 3 mg tablet 3 mg PO QHS sleep 07/26/25 Unknown History olanzapine 2.5 mg tablet 2.5 mg PO Q8H PRN agitation Unknown History olanzapine 2.5 mg tablet 5 mg PO QHS mood 07/26/25 Unknown History tamsulosin 0.4 mg capsule 0.4 mg PO DAILY bph 07/26/25 Unkno wn History trazodone 50 mg tablet 25 mg PO QHS sleep 07/26/25 Unknow n History Allergy/AdvReac Type Severity Reaction Status Date / Time iodine All (more content not included)... [facility] 07-26-2025 Nurse Note Pt has discharged transported by [facility]. De Oliveira is in place with leg bag to right leg, no IV access in place. Pt's has been notified of patient's discharge. No belongings with pt at time of discharge. AVS provided to transporters and N2N has been provided to facility. 0812: PRN IM Zyprexa given. Pt agitated, constantly pulling at de oliveira, non redirectable, and trying to swing at staff. Will continue to monitor 1252: Afternoon medications given, pt being aggressive towards staff and family members, redirected, floor security assisted. Will continue to monitor 1831: PRN Tylenol given d/t pt c/o gen. Pain. Pt mood improved. No agitation or anxiety present at this time. Will continue to follow. Pt was compliant with meds with help from throughout shift. Pt has been calm. Sitter at bedside for safety and redirection, bed in lowest position and call light within reach. Pt remains free from restraints. No PRNs needed. Pt arrived to [facility] at approximately 1430. Pt was awake and accompanied by transporter, and sitter. Pt was not able to answer orientation questions. 4 eye skin check completed. VS stable. Pt was not agitated or attempting to pull at de oliveira/lines. Restraints removed. Sitter at beside for safety and redirection. Pt is sleeping in bed, respirations 20. also at bedside. No distress noted at this time. documented in this encounter [facility] Work Phone: 07-26-2025 Miscellaneous Notes The patient's goals for the shift include to get some sleep The clinical goals for the shift include pt will get adequate rest and remain safe/free from injury and falls from [id number] Problem: Pain - Adult Goal: Verbalizes/displays adequate comfort level or baseline comfort level Outcome: Progressing Problem: Fall/Injury Goal: Verbalize understanding of personal risk factors for fall in the hospital Outcome: Progressing Pt is progressing towards clinical goals, pt did have adequate rest and remained free from falls from [id number]. Pt was pleasant and compliant with all medications. Pt was resting comfortably and was free of pain/discomfort throughout the shift of . Plan for pt is to get discharged to acute rehab in [place] early this afternoon 07/26. The patient's goals for the shift include to get some sleep The clinical goals for the shift include Pt will be free from fall/injury throughout this shift. Problem: Pain - Adult Goal: Verbalizes/displays adequate comfort level or baseline comfort level Outcome: Progressing Problem: Nutrition Goal: Nutrient intake appropriate for maintaining nutritional needs Outcome: Progressing Problem: Skin Goal: Prevent/manage excess moisture Outcome: Progressing Flowsheets (Taken 07/25/2025 1041) Prevent/manage excess moisture: Cleanse incontinence/protect with barrier cream Moisturize dry skin Pt has been free from fall/injury throughout this shift, complaint with all prescribed medications and care. De Oliveira remains in place and patent. Patient's remains at bedside. The patient's goals for the shift include to get some sleep The clinical goals for the shift include pt will be cooperative with all nursing tasks and remain free from injury from [id number] Problem: Pain - Adult Goal: Verbalizes/displays adequate comfort level or baseline comfort level Outcome: Progressing Problem: Discharge Planning Goal: Discharge to home or other facility with appropriate resources Outcome: Progressing Pt progressed towards meeting clinical goals throughout the shift . Pt remained free from injury/falls but did need continuous reinforcement when it came to being compliant with medications or staying in bed throughout the shift. Pts did sleep at bedside. Pt did take all scheduled meds during the shift, although pt did refuse pain medication after stating that they were in pain. The patient's goals for the shift include to get some sleep The clinical goals for the shift include Pt. will be free of falls and injury this shift Over the shift, the patient continues to make progress toward the following goals. Pt. Has been free of injury and falls this shift. The patient's goals for the shift include to get some sleep The clinical goals for the shift include Patient will remain free from injury and falls during shift Over the shift, the patient did not make progress toward the following goals. Barriers to progression include cognition and ability o understand teaching or education . Recommendations to address these barriers include re-orientation, education The patient's goals for the shift include to get some sleep The clinical goals for the shift include Pt will remain free from injury by end of shift Problem: Fall/Injury Goal: Use assistive devices by end of the shift Outcome: Progressing Kitty Vergara is a 85 y.o. male with a PMH of BPH, GERD, CKD stage 4, DMII hgAIc 6.6, CAD s/p LHC/RHC with PCI- 01/19/25, on Plavix and ASA 81mg, bardycardia, and severe non-rheumatic aortic stenosis s/p TAVR Evolut FX + 34mm via RCFA Femoral with Right Radial (secondary) on 06/[address] Barbosa and Dr. Howell. Course complicated by AMS and slurred speech, found to have s/p Brain MRI showed scattered areas of acute to early subacute infarction within the cerebral hemispheres bilaterally. Per Neuro follow up with stroke clinic. POD 1 ECHO - EF 59%, AV gradients 15.2 mmHg, 9.0 mmHg, no significant PC effusio. POD 1 EKG - LBBB, First degree, RRR, HR 70 (TX 208, QRS 148). Neuro Recs Course complicated with hyperactive delirium, computer assistant with case adjusting medication to help with sleep at night. Discharge TAVR final recs: - Cont ASA (for life), PCI 01/19/25 DAPT until next year 01/19/26 - follow up with Structural [facility] clinic in 1 month and 1 year - f/w Dr. Jessie Fay (Primary Cards) as scheduled or in 6-10 weeks - f/w Daniel Almanzar MD in 1-2 weeks - ECHO rec (1 month) Jackson Cox MSN, AGACNP- Acute Care Nurse Practitioner [facility] Advanced Interventional Cardiology Office: The patient's goals for the shift include to get some sleep The clinical goals for the shift include pt wiill remain free from fall and injury throughout shift. Over the shift, pt remained free from fall and injury. Some agitation throughout the night but was easily redirectable. Pt seen by bed side nurse in room resting at this time with at bed side. The patient's goals for the shift include to get some sleep The clinical goals for the shift include maintain safety and HDS throughout shift Problem: Skin Goal: Decreased wound size/increased tissue granulation at next dressing change 07/22/2025 1438 by Karissa Nolasco, RN Outcome: Progressing Flowsheets (Taken 07/22/2025 1438) Decreased wound size/increased tissue granulation at next dressing change: Promote sleep for wound healing 07/22/2025 1409 by Karissa Nolasco RN Outcome: Progressing 07/22/2025 1407 by Karissa Nolasco RN Flowsheets (Taken 07/21/20252230 by Juanita Reddy RN) Decreased wound size/increased tissue granulation at next dressing change: Promote sleep for wound healing 07/22/2025 1405 by Karissa Nolasco RN Outcome: Progressing The patient's goals for the shift include to get some sleep The clinical goals for the shift include maintain safety and HDS throughout shift The patient's goals for the shift include to get some sleep The clinical goals for the shift include maintain safety and HDS throughout shift Problem: Pain - Adult Goal: Verbalizes/displays adequate comfort level or baseline comfort level Outcome: Progressing Problem: Discharge Planning Goal: Discharge to home or other facility with appropriate resources Outcome: Progressing Problem: Chronic Conditions and Co-morbidities Goal: Patient's chronic conditions and co-morbidity symptoms are monitored and maintained or improved Outcome: Progressing Problem: Nutrition Goal: Nutrient intake appropriate for maintaining nutritional needs Outcome: Progressing Problem: Fall/Injury Goal: Verbalize understanding of personal risk factors for fall in the hospital Outcome: Progressing Goal: Verbalize understanding of risk factor reduction measures to prevent injury from fall in the home Outcome: Progressing Goal: Use assistive devices by end of the shift Outcome: Progressing Goal: Pace activities to prevent fatigue by end of the shift Outcome: Progressing Problem: Skin Goal: Decreased wound size/increased tissue granulation at next dressing change Outcome: Progressing Goal: Participates in plan/prevention/treatment measures Outcome: Progressing Goal: Prevent/manage excess moisture Outcome: Progressing Goal: Prevent/minimize sheer/friction injuries Outcome: Progressing Goal: Promote/optimize nutrition Outcome: Progressing Goal: Promote skin healing Outcome: Progressing Problem: Safety - Medical Restraint Goal: Remains free of injury from restraints (Restraint for Interference with Software Reverse Engineer) Outcome: Progressing Goal: Free from restraint(s) (Restraint for Interference with Software Reverse Engineer) Outcome: Progressing The patient's goals for the shift include to get some sleep The clinical goals for the shift include Patient will take all meds and be free of agitation during shift. Over the shift, the patient did not make progress toward the following goals. Barriers to progression include . Recommendations to address these barriers include Problem: Pain - Adult Goal: Verbalizes/displays adequate comfort level or baseline comfort level Outcome: Progressing Problem: Discharge Planning Goal: Discharge to home or other facility with appropriate resources Outcome: Progressing Problem: Chronic Conditions and Co-morbidities Goal: Patient's chronic conditions and co-morbidity symptoms are monitored and maintained or improved Outcome: Progressing Problem: Nutrition Goal: Nutrient intake appropriate for maintaining nutritional needs Outcome: Progressing Problem: Fall/Injury Goal: Verbalize understanding of personal risk factors for fall in the hospital Outcome: Progressing Goal: Verbalize understanding of risk factor reduction measures to prevent injury from fall in the home Outcome: Progressing Goal: Use assistive devices by end of the shift Outcome: Progressing Goal: Pace activities to prevent fatigue by end of the shift Outcome: Progressing Problem: Skin Goal: Decreased wound size/increased tissue granulation at next dressing change Outcome: Progressing Goal: Participates in plan/prevention/treatment measures Outcome: Progressing Goal: Prevent/manage excess moisture Outcome: Progressing Goal: Prevent/minimize sheer/friction injuries Outcome: Progressing Goal: Promote/optimize nutrition Outcome: Progressing Goal: Promote skin healing Outcome: Progressing Problem: Safety - Medical Restraint Goal: Remains free of injury from restraints (Restraint for Interference with Software Reverse Engineer) Outcome: Progressing Goal: Free from restraint(s) (Restraint for Interference with Software Reverse Engineer) Outcome: Progressing . The patient's goals for the shift include to get some sleep The clinical goals for the shift include pt will remain HDS thoughout shift Over the shift, pt remained HDS with no c/o pain or discomfort.PRN Zyprexa given for agitation which was successful. No acute events throughout shift. Pt been by be side nurse in room resting at this time with at bedside. The patient's goals for the shift include to get some sleep The clinical goals for the shift include Pt will remain free from fall/injury this shift. Safety maintained The patient's goals for the shift include to get some sleep The clinical goals for the shift include Pt will remain free from fall/injury this shift. Problem: Pain - Adult Goal: Verbalizes/displays adequate comfort level or baseline comfort level Outcome: Progressing Problem: Nutrition Goal: Nutrient intake appropriate for maintaining nutritional needs Outcome: Progressing Problem: Skin Goal: Prevent/manage excess moisture Outcome: Progressing Flowsheets (Taken 07/20/2025 1258) Prevent/manage excess moisture: Moisturize dry skin Cleanse incontinence/protect with barrier cream Problem: Skin Goal: Prevent/minimize sheer/friction injuries Outcome: Progressing Flowsheets (Taken 07/20/2025 1258) Prevent/minimize sheer/friction injuries: Use pull sheet Problem: Skin Goal: Promote/optimize nutrition Outcome: Progressing Flowsheets (Taken 07/20/2025 1258) Promote/optimize nutrition: Consume > 50% meals/supplements Pt refused morning medications and MD manjinder made aware. Pt later agreeable to taking medications. miller head assistant wet process has been discontinued, safety measures are in place. Free from fall/injury throughout the shift. Pt family is at bedside. The clinical goals for the shift include patient will remain HDS and free from falls and injuries throughout shift Over the shift, the patient was easily redirectable throughout the night with out the need of any PRN mood stabilizers. Patient participated in care by following commands but patient is still experiencing garbled speech. Sitter at bedside. Problem: Pain - Adult Goal: Verbalizes/displays adequate comfort level or baseline comfort level Outcome: Progressing Problem: Safety - Adult Goal: Free from fall injury Outcome: Progressing Problem: Chronic Conditions and Co-morbidities Goal: Patient's chronic conditions and co-morbidity symptoms are monitored and maintained or improved Outcome: Progressing Problem: Skin Goal: Decreased wound size/increased tissue granulation at next dressing change Outcome: Progressing Goal: Participates in plan/prevention/treatment measures Outcome: Progressing Goal: Prevent/manage excess moisture Outcome: Progressing Goal: Prevent/minimize sheer/friction injuries Outcome: Progressing Goal: Promote/optimize nutrition Outcome: Progressing Goal: Promote skin healing Outcome: Progressing The patient's goals for the shift include to get some sleep The clinical goals for the shift include Pt will remain free from injuy by end of shift Problem: Fall/Injury Goal: Not fall by end of shift Outcome: Met Goal: Be free from injury by end of the shift Outcome: Met The patient's goals for the shift include to get some sleep The clinical goals for the shift include patient will remain HDS and free from falls throughout shift Over the shift, the patient required PRN Zyprexa 2.5mg injection due to agitation while being redirected. Patient refused continuous telemetry and SpO2 monitoring. The patient's goals for the shift include to get some sleep The clinical goals for the shift include Pt will remain free from injury by end of shift Problem: Safety - Adult Goal: Free from fall injury Outcome: Met Received page from RN stating patient with on going physical agitation unresponsive to olanzapine 2.5 mg PRN. Last dose three hours prior. Messaged Dr. Parker to discuss adding one time dose of okanzapine 2.5 mg IM PRN and recheck EKG when able to follow QtC. The patient's goals for the shift include to get some sleep The clinical goals for the shift include patient will remain safe and take his scheduled meds during this shift Over the shift, the patient became agitated after getting PRN Zyprexa 2.5mg injection. Team informed that Zyprexa 2.5 mg IM injection did not help with patient's agitation. Awaiting new orders. Kitty Vergara is a 85 y.o. male with a PMH of BPH, GERD, CKD stage 4, DMII hgAIc 6.6, CAD s/p LHC/RHC with PCI- 01/19/25, on Plavix and ASA 81mg, bardycardia, and severe non-rheumatic aortic stenosis. Admitted for elective TAVR on 07/13 with reduction in mean gradient s from 41/22mmHg to mean of 9mmHg. To be on DAPT until at least 01/19/26 given PCI 12/2824. To be on Aspirin indefinitely for TAVR. 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 Had acute agitation deemed likely 2/2 hospital delirium and stroke. Psychiatry team assisted in his care with antipsychotics and behavioral modifications. He was transferred to [place] [address] psychiatry unit to help liberate him from sitter and his restraints. However, HVI service remained active in his care To mention, he did have transient conduction changes with resultant LBBB and first degree AVB. Telemetry was monitored throughout the remainder of his stay Additionally, had urinary retention requiring de oliveira and flomax initiation. On day of discharge he is feeling Discharged to via PMR recs. Discharge weight: ### kg After all labs and VS were reviewed the decision was made that the patient was medically stable for discharge. The patient was discharged in satisfactory condition. More than 60 minutes were spent in coordinating patient discharge. The patient's goals for the shift include to get some sleep The clinical goals for the shift include patient will remain safe and take his scheduled meds during this shift Over the shift, the patient did make progress toward the following goals. Barriers to progression include exp aphasia. Recommendations to address these barriers include continue psych recommendations. The patient's goals for the shift include to get some sleep The clinical goals for the shift include patient will remain safe and take his scheduled meds during this shift Over the shift, the patient continued to be confused and impulsive at times. Restraints in place with up-to-date documentation. He received 2.5mg of Zyprexa (IM) for agitation, and had about 1.5 hours of uninterrupted sleep. Spouse remained at bedside throughout the shift and involved with plan of care. Patient has remained free of falls, call pizarro within reach, bed locked in the lowest position with nonskid socks on. Purposeful rounding performed. The patient's goals for the shift include to get some sleep The clinical goals for the shift include patient will remain safe and take his scheduled meds during this shift Over the shift, the patient did make progress toward the following goals. Barriers to progression include still some expressive aphasia and pulling at lines. Recommendations to address these barriers include restraints and sitter. The patient's goals for the shift include to get some sleep The clinical goals for the shift include patient will remain safe and take his scheduled meds during this shift Over the shift, the patient has remained confused. He refused his evening med. Bladder scan = 472ml. Straight cath =450ml. Patient received 2mg of Valium before 2300 and only slept after 4am. Unable to determine if in pain or not. Patient still in soft wrist restraints and documentation up to date. Patient has remained free of falls throughout the shift, call pizarro within reach, bed locked in the lowest position with nonskid socks on. Purposeful rounding performed. The patient's goals for the shift include to get some sleep The clinical goals for the shift include safety Over the shift, the patient did make progress toward the following goals. Barriers to progression include combative. Recommendations to address these barriers include restraints and meds for delerium. NEUROLOGY STROKE UPDATES: Kitty Stallworth" is a 85 y.o. left handed male with a history of HTN, HLD, DM2, CKD, Gout, OA, obesity admitted on 07/13/2025 for a scheduled TAVR. Stroke neurology consulted 07/14 for acute mixed aphasia. LKW prior to OR. iNIHSS 11 (Q2, C1, Aphasia2, LLE3, RLE3). CTH shows old L caudate hypodensity and ?R temporal hypodensity. CTA H/N with patent anterior and posterior circulations. OOW TNK. Not a candidate for EVT given no LVO. Repeat NIH the following day 5 for severe aphasia and questions/commands. TTE with EF 62%, normal LA size. A1c 6.6 02/2025, LDL 42 10/2024. MRI brain recommended and resulted as expected with embolic left > right cerebral hemispheric and left cerebellar infarcts, acute to subacute. Left MCA distribution infarct correlates with patient's symptoms of aphasia. Given the clear etiology of his stroke (cardioembolic, periprocedural during TAVR), he does not need secondary stroke prevention from the neurology stroke standpoint. Will defer decision for DAPT to primary team. RECOMMENDATIONS: - No further stroke work-up necessary at this time - Please place referral to stroke neurology on discharge for follow-up - Continue speech therapy Neurology stroke team will sign-off. Gia Vasquez MD Neurology PGY-3 The patient's goals for the shift include to get some sleep The clinical goals for the shift include Patient will not have any neuro exam changes during shift Patient remained safe and free of falls during shift. Patient medicated for pain during shift. No neuro changes during shift. Plan for patient to have MRI today. Rapid Response Respiratory Therapy Note: BAT Start Time: 157 End Time: 239 Location: T5032 Initial Vital Signs and O2: HR: 69 RR: 16 Type of O2: 2L NC SpO2: 99% Breath Sounds: Clear/Diminished Respiratory Concerns: [x] None [] Increased WOB [] Shallow respirations [] Irregular Respirations [] Tachypnea [] Bradypnea [] Oxygen desaturation [] Cyanosis [] Poor Secretion Clearance [] Impaired/Weak Cough [] Copious Secretions [] Thick Secretions [] Inability to Protect Airway [] Apnea [] Respiratory Arrest [] Shortness of Breath [] Hemodynamic Instability [] Asymmetric Chest Rise [] Adventitious Breath Sounds [] Abnormal CXR [] Aspiration [] Other: Interventions: [x] None [] ABG/VBG [] Assist w/ICU transfer [] Bag-mask ventilation [] Bronchial Hygiene [] Trach care/Suction [] ETCO2 [] CPR [] Assist Intubation [] Venti Mask/NRB [] Chest x-ray [] CT/MRI transport [] High Flow Therapy [] Igel [] Nasal Airway [] NT Suctioning [] Nebulizer treatment [] NIPPV (CPAP/BiPAP) [] Oxygen Type: FiO2: Liter Flow: SpO2: [] Oral Airway [] Oral Suctioning [x] Other: Outcome: [] Maintain on Division [] Transferred to ICU [] Transferred to ED [] Bedside nurse instructed to page Rapid Response for any concerns or acute change in condition/VS Final Vital Signs and O2: HR: RR: Type of O2: SpO2: Breath Sounds: Additional Comments: BAT called for pt experiencing inability to communicate. Last known well 4pm, just before TAVR procedure. Neurology at bedside. Patient taken to CT and returned to T5 without incident. Rapid Response Nurse Note: Rapid Response Pager time: 154 Arrival time: 201 Event end time: 239 Location: T5-32 [] Triage by phone or secure messaging Rapid response initiated by: [] Rapid response RN [] Family [] Nursing Guitar Teacher [] Physician [] RADAR auto page [] Sepsis auto-page [x] RN [] RT [] AMBULANCE ASSISTANT/PA [] Other: Primary reason for call: [x] BAT [] New CPAP/BiPAP [] Bleeding [] Change in mental status [] Chest pain [] Code blue [] FiO2 >/= 50% [] HR </= 40 bpm [] HR >/= 130 bpm [] Hyperglycemia [] Hypoglycemia [] RADAR [] RR </= 8 bpm [] RR >/= 30 bpm [] SBP </= 90 mmHg [] SpO2 < 90% [] Seizure [] Sepsis [] Shortness of breath [] Staff concern: see comments Initial VS and/or RADAR VS: T 36.7 C; HR 69; RR 18; BP 163/80; SPO2 98% on 2 lpm NC Provider notification: MD Wade, MD Martin and MD Keyshawn Interventions: [] None [] ABG/VBG [] Assist w/ICU transfer [] BAT paged [] Bag mask [] Blood [] Cardioversion [] Code Blue [] Code blue for intubation [] Code status changed [] Chest x-ray [] EKG [] IV fluid/bolus [] KUB x-ray [] Labs/cultures [] Medication [] Nebulizer treatment [] NIPPV (CPAP/BiPAP) [] Oxygen [] Oral airway [] Peripheral IV [] Palliative care consult [x] CT/MRI [] Sepsis protocol [] Suctioned [] Other: poct glucose Outcome: [] Coded and [] Code blue for intubation [] Coded and transferred to ICU [] on division [x] Remained on division (no change) [] Remained on division + additional monitoring [] Remained in ED [] Transferred to ED [] Transferred to ICU [] Transferred to inpatient status [] Transferred for interventions (procedure) [] Transferred to ICU stepdown [] Transferred to surgery [] Transferred to telemetry [] Sepsis protocol [] STEMI protocol [] Stroke protocol [x] Bedside nurse instructed to page rapid response for any concerns or acute change in condition/VS Additional Comments: BAT paged by bedside RN due to aphasia. LKW was 4 pm prior to sedation for a TAVR procedure. On arrival the neurology team is already at bedside. POCT glucose is 165 and patient has the above documented vitals. Patient was transported to CT and back to T5. No further interventions at this time as patient is not a candidate for TNK. Bedside Rn encouraged to call rapid response team with any further concerns. Physician Transition of Care Summary Invasive Cardiovascular Lab Procedure Date: 07/13/2025 Attending: Panel 1: * Dorothy Barbosa - Primary Panel 2: * Omar Howell - Primary Resident/Fellow/Other Physical Education Department Chair: Surgeons and Role: Panel 1: * Camila Salinas MD - Fellow Indications: Pre-op Diagnosis * Nonrheumatic aortic (valve) stenosis [I35.0] Post-procedure diagnosis: Post-op Diagnosis * Nonrheumatic aortic (valve) stenosis [I35.0] Procedure(s): TVP for TAVR TAVR-OR TAVR (Transcatheter AV Replacement) 99366 - TX REPLACE AORTIC VALVE PERQ FEMORAL ARTRY APPROACH TX REPLACE AORTIC VALVE PERQ FEMORAL ARTRY APPROACH [54550] Indication: Severe Aortic Stenosis Valve used: 34 mm Evolut FX+ Pre dil: True dilation balloon 23 mm Access Primary: right LABORATORY IMMUNOLOGIST s/p 2 proglide Secondary: right radial 6 Fr -- TR band Tertiary: left LABORATORY IMMUNOLOGIST s/p 1 proglide TVP: right IJ vein, 7 pakistani, (widening of QRS following valve deployment and sutured in place) Post gradient TTE: 6 No PVL No effusion Conclusion Monitor tele Monitor access sites for bleeding TTE tomorrow Bed rest Structural team will continue to follow. page structural team for any concerning clinical events. Stents/Implants: Implants Heart Valve Repair Delivery System, Evolut Fx, 34mm - [id number] - Implanted Inventory item: DELIVERY SYSTEM, EVOLUT FX, 34MM Model/Cat number: [id number] Canvas Baster: [employer] Lot number: [id number] Device identifier: [id number] GUDID Information Request status Request failed - device not in GUDID As of 07/13/2025 Status: Implanted Valve, Aortic, 34mm, Evolut Fx Transcatheter - [id number] - [id number] - Implanted Inventory item: VALVE, AORTIC, 34MM, EVOLUT FX TRANSCATHETER Model/Cat number: [id number] Serial number: [id number] Canvas Baster: [employer] Lot number: [id number] As of 07/13/2025 Status: Implanted Anticoagulation/Antiplatelet Plan: ASA/Plavix Estimated Blood Loss: 50 mL Anesthesia: Moderate Sedation Anesthesia Staff: No anesthesia staff entered. Any Specimen(s) Removed: Order Name Source Comment Collection Info Order Time TYPE AND SCREEN Blood, Venous Collected By: Elsi Fonseca RN 07/13/2025 1:54 PM Release result to MyChart Immediate ABORH Blood, Venous Collected By: Elsi Fonseca RN 07/13/2025 1:54 PM Release result to MyChart Immediate BASIC METABOLIC PANEL Blood, Venous Collected By: Franky Peterson, AYAAN 07/13/2025 8:07 PM Release result to MyChart Immediate MAGNESIUM Blood, Venous Collected By: Franky Peterson RN 07/13/2025 8:07 PM Release result to MyChart Immediate CBC WITH AUTO DIFFERENTIAL Blood, Venous Collected By: Franky Peterson RN 07/13/2025 8:07 PM Release result to MyChart Immediate PROTIME-INR Blood, Venous Collected By: Franky Peterson RN 07/13/2025 8:07 PM Release result to MyChart Immediate CBC WITH AUTO DIFFERENTIAL Blood, Venous 07/13/2025 8:07 PM Release result to MyChart Immediate BASIC METABOLIC PANEL Blood, Venous 07/13/2025 8:07 PM Release result to MyChart Immediate MAGNESIUM Blood, Venous 07/13/2025 8:07 PM Release result to MyChart Immediate PROTIME-INR Blood, Venous 07/13/2025 8:07 PM Release result to MyChart Immediate Disposition: Tele Electronically signed by: Caimla Salinas MD, 07/13/2025 10:42 PM I Preoperative Diagnosis: Severe symptomatic aortic stenosis, need for TAVR Postoperative diagnosis: Same Preop and postop diagnosis: Severe symptomatic Aortic stenosis Procedure: 1. Ballon Valvuloplasty with 23Fr True Dil Balloon 2. GURJIT with 34 mm Evolut FX valve 3.Post dilation with 22 mm bnalloon Surgeons: Omar Howell MD,PhD Dorothy Barbosa MD Anesthesia: MAC in a dairy and food laboratory assistant Complications: None Condition to recovery room: Stable Indications. The patient is an 85 y o patient who was recently diagnosed with severe symptomatic aortic stenosis. Patient underwent complete work up, the results were presented and reviewed at the Structural Heart Selection meeting. Patient was thought to most benefit from GURJIT. Risks, benefits and complications of this procedure were discussed with the patient, and informed consent was obtained. Findings. Pre-dilation with 23 True dil balloon was performed without complications. 34 mm Evolut FX valve was deployed under rapid pacing. Post dilation was performed with 22 mm balloon. Post-deployment TTE showed low trans valvular gradient, no PVL, and no pericardial effusion. Description. Patient was brought to the hybrid OR and placed on a operating table in a supine position. After routine huddle, conscious sedation was established, patient was prepped and draped in a standard fashion. RIJ vein accessed, and a temporary pacing was advanced into the RV and tested. Both right and left femoral arteries were accessed routinely. Patient was heparinized. Primary right femoral artery access was protected with two Perclose devices. LV was accessed with a straight wire, and after appropriate wire exchange, a 22mm TrueDil balloon was advanced into the aortic root. BAV was performed under rapid pacing of 180/min and was well tolerated. 34mm Evolut FX valve was then advanced into the aortic root and deployed routinely under rapid pacing at 120-140/min. Post dilation was accomplished with 22mm balloon. TTE findings are described above. Protamine was given, all cannulas were removed, and cannulation sites secured. Patient tolerated this procedure well, and was taken out of the OR to the CICU in a stable condition. ASA: 4 Mallampatti: 2 Sedation Preparation documented in this encounter [facility] Work Phone: 07-25-2025 History of Present illness Narrative Was informed by Gloria AUGUSTE that they got precert can admit tomorrow. will be on staff tomorrow to admit pt. N2N Report # [id number]. Called and informed pt and son of discharge time. Will need final paperwork attached in Care port tomorrow. DENIS Burkett Subjective Data: Patient seen and assessed this morning, lying in bed, NAD. Denies any CP or SOB, remains comfortable on RA. Spouse at bedside, both updated on plan of care. Overnight Events: No acute events overnight. Per spouse was agitated. Per nursing, required frequent reinforcement for safety and medication compliance. No PRN medications given. Today's Plan/Updates: - hemodynamically stable, continue current regimen - per mita ALEJANDRO approved, luis antonio 07/26 to Gloria AUGUSTE at 11am Objective Data: Last Recorded Vitals: Vitals: 07/24/25 0821 07/24/25 1116 07/24/25 2315 07/25/25 0804 BP: 137/74 138/69 134/59 144/59 BP Location: Right arm Left arm Patient Position: Lying Lying Pulse: 75 67 72 66 Resp: 18 18 18 16 Temp: 36.6 C (97.9 F) 36.5 C (97.7 F) 36.6 C (97.9 F) TempSrc: Temporal Temporal SpO2: 96% 97% 93% 95% Weight: Height: Last Labs: Results for orders placed or performed during the hospital encounter of 07/13/25 (from the past 24 hours) POCT GLUCOSE Result Value Ref Range POCT Glucose 190 (H) 74 - 99 mg/dL POCT GLUCOSE Result Value Ref Range POCT Glucose 237 (H) 74 - 99 mg/dL POCT GLUCOSE Result Value Ref Range POCT Glucose 181 (H) 74 - 99 mg/dL POCT GLUCOSE Result Value Ref Range POCT Glucose 103 (H) 74 - 99 mg/dL TROPHS Date/Time Value Ref Range Status 03/04/2025 02:12 PM 11 0 - 20 ng/L Final 03/04/2025 01:10 PM 13 0 - 20 ng/L Final 10/18/2024 03:57 PM 11 0 - 20 ng/L Final BNP Date/Time Value Ref Range Status 10/18/2024 03:57 PM 321 0 - 99 pg/mL Final HGBA1C Date/Time Value Ref Range Status 07/15/2025 06:34 AM 7.0 See comment % Final 03/09/2025 08:32 AM 6.6 <5.7 % Final Comment: For someone without known diabetes, a hemoglobin A1c value of 6.5% or greater indicates that they may have diabetes and this should be confirmed with a follow-up test. For someone with known diabetes, a value <7% indicates that their diabetes is well controlled and a value greater than or equal to 7% indicates suboptimal control. A1c targets should be individualized based on duration of diabetes, age, comorbid conditions, and other considerations. Currently, no consensus exists regarding use of hemoglobin A1c for diagnosis of diabetes for children. 09/05/2024 07:38 AM 7.2 See comment % Final LDLCALC Date/Time Value Ref Range Status 07/15/2025 06:34 AM 76 <=99 mg/dL Final Comment: Near Borderline AGE Desirable Optimal High High Very High 0-19 Y 0 - 109 --- 110-129 >/= 130 ---- 20-24 Y 0 - 119 --- 120-159 >/= 160 ---- >24 Y 0 - 99 100-129 130-159 160-189 >/=190 LDL Cholesterol is calculated using the Friedewald equation. 09/26/2024 07:54 AM 42 <=99 mg/dL Final Comment: Near Borderline AGE Desirable Optimal High High Very High 0-19 Y 0 - 109 --- 110-129 >/= 130 ---- 20-24 Y 0 - 119 --- 120-159 >/= 160 ---- >24 Y 0 - 99 100-129 130-159 160-189 >/=190 VLDL Date/Time Value Ref Range Status 07/15/2025 06:34 AM 31 0 - 40 mg/dL Final 09/26/2024 07:54 AM 60 0 - 40 mg/dL Final 03/29/2022 07:54 AM SEE COMMENT 0 - 40 mg/dL Final Comment: Unable to calculate VLDL. 03/29/2020 08:37 AM SEE COMMENT 0 - 40 mg/dL Final Comment: Unable to calculate VLDL. Last I/O: I/O last 3 completed shifts: In: 960 (9.5 mL/kg) [P.O.:960] Out: 1850 (18.4 mL/kg) [Urine:1850 (0.5 mL/kg/hr)] Weight: 100.6 kg Past Cardiology Tests (Last 3 Years): EKG: ECG 12 lead daily 07/15/2025 (Preliminary) Sinus rhythm with 1st degree AV block with occasional Premature ventricular complexes and Premature atrial complexes Left bundle branch block Abnormal ECG When compared with ECG of 14-JUL-2025 05:26, Sinus rhythm has replaced Ectopic atrial rhythm ECG 12 lead daily 07/14/2025 Sinus rhythm with occasional Premature ventricular complexes Left bundle branch block Abnormal ECG When compared with ECG of 13-JUL-2025 19:48, No significant change was found Confirmed by Adriana Flores ([id number]) on 07/18/2025 9:26:46 PM ECG 12 lead daily 07/13/2025 Sinus rhythm with 1st degree AV block with occasional Premature ventricular complexes Left bundle branch block Abnormal ECG When compared with ECG of 13-JUL-2025 14:14, TX interval has increased Left bundle branch block is now Present Confirmed by Adriana Flores ([id number]) on 07/18/2025 9:15:56 PM ECG 12 lead 07/13/2025 Sinus rhythm with frequent Premature ventricular complexes Left ventricular hypertrophy with repolarization abnormality Abnormal ECG When compared with ECG of 05-MAR-2025 11:45, Premature ventricular complexes are now Present TX interval has decreased T wave inversion now evident in Inferior leads T wave inversion now evident in Anterolateral leads QT has shortened Confirmed by Felix Hernandez ([id number]) on 07/14/2025 9:40:02 AM Echo: Transthoracic Echo (TTE) Limited 07/14/2025 CONCLUSIONS: 1. Poorly visualized anatomical structures due to suboptimal image quality. 2. Left ventricular ejection fraction is normal calculated by Villalobos's biplane at 62%. 3. Echo findings are consistent with normal aortic valve prosthesis structure and function. 4. Unable to determine right ventricular systolic function. 5. No regional left ventricular wall motion abnormalities. 6. Compared with study dated 07/13/2025, the patient is now s/p 34 mm Evolut Fx+ TAVR with reduction in aortic gradients. Transthoracic Echo (TTE) Limited 07/13/2025 CONCLUSIONS: 1. Poorly visualized anatomical structures due to suboptimal image quality. 2. The left ventricle was not well visualized. The left ventricular ejection fraction could not be measured. 3. LV appear to have grossly normal systolic function without obvious regional wall motion abnormalities though not well seen. Unable to estimate LVEF. 4. Unable to determine right ventricular systolic function. 5. There is moderate mitral annular calcification. 6. Baseline- AV not well seen though appears to be moderate to severely calcified/thickened with gradients of 41/22mmHg and DI of 0.33 with no AI. The DI is consistent with moderate though gradients are lower than expected for that degree of . Proceeded to TAVR. 7. S/p 34mm Medtronic Evolut TAVR with gradients of 6.9/4mmHg and no obvious AI. 8. Compared with study dated 10/20/2024, [facility], the prior AV gradients were 73/44mmHg with DI of 0.23 which is consistent with severe and there was no AI at that time. Today's gradients are lower than on prior exam likely due to technically difficult images with limited interrogation in that the LV systolic function appears to be preserved today. Prior LVEF was 67%. Transthoracic Echo (TTE) Complete 10/20/2024 CONCLUSIONS: 1. Poorly visualized anatomical structures due to suboptimal image quality. 2. Left ventricular ejection fraction is normal, calculated by Villalobos's biplane at 67%. 3. Spectral Doppler shows a Grade II (pseudonormal pattern) of left ventricular diastolic filling with an elevated left atrial pressure. 4. There is normal right ventricular global systolic function. 5. Moderate to severe aortic valve stenosis. 6. Compared to prior TTE dated 03/28/2023 - aortic stenosis has progressed and now appears to be moderate-severe. 7. The patient is in atrial fibrillation which may influence the estimate of left ventricular function and transvalvular flows. Ejection Fractions: EF Date/Time Value Ref Range Status 07/14/2025 03:18 PM 62 % 10/20/2024 07:19 AM 67 % Cath: Cardiac Catheterization Procedure 07/13/2025 CONCLUSIONS: 1. Successful GURJIT using a Evolut FX+ 34. 2. ASA indefinately. 3. Patient was enrolled in a research study and data was included in the TVT Registry. Cardiac Catheterization Procedure 01/19/2025 Coronary Lesion Summary: Vessel Stenosis Vessel Segment LAD 80% stenosis proximal to mid OM 1 60% stenosis proximal CONCLUSIONS: 1. Right coronary artery system dominance. 2. Single vessel coronary artery disease. 3. Prox-mid LAD diffuse calcified 80% lesion. 4. Prox 1st OM 60% lesion. 5. RCA with irregularities. 6. Preserved LV systolic function. 7. Peak to peak gradient ~20mmHg, consistent with moderate aortic stenosis. 8. PWP 25, PA 46/23 (32), RV 51/12 (20), RA 17mmHg; LVeDP 19mmHg; CO 7.5, CI 3.4. 9. S/P successful DFR to prox 1st OM resulting 0.98, deemed to be non-ischemic, therefore we have opted to defer the treatment for this lesion. 10. S/P successful DFR to mid LAD resulting 0.86, deemed to be ischemic, therefore we have opted to proceed with the treatment for this lesion. 11. S/P Successful PCI to prox-mid LAD using 2 WILLIE 3.0/38mm and 3.0/8mm (post-dil 3.5mm NC balloon) guided by IVUS. Stress Test: No results found for this or any previous visit from the past 1095 days. Cardiac Imaging: No results found for this or any previous visit from the past 1095 days. Inpatient Medications: Scheduled Medications[1] PRN Medications[2] Continuous Medications[3] Physical Exam: General: NAD, lying in bed, alert Skin: warm and dry Head/ neck: no JVD seen at 60 degrees Cardiac: RRR, S1, S2 Pulm: CTAB, room air GI: soft, nontender : de oliveira Extremities: no LE edema Neuro: expressive aphasia, follows some commands Psych: agitated at times, calm & cooperative today Assessment/Plan Kitty Vergara is a 85 y.o. male with a PMH of BPH, GERD, CKD stage 4, DMII hgAIc 6.6, CAD s/p LHC/RHC with PCI- 01/19/25, on Plavix and ASA 81mg, bardycardia, and severe non-rheumatic aortic stenosis. Pt presented on 07/13/2025 for elective TAVR. Overnight on 07/14/25 BAT called for abnormal speech and AMS concerning for stroke. Transferred to HVI service for management. Severe Aortic Stenosis, s/p TAVR 07/14 - 09/2024 TTE: EF 67%, Grade II (pseudonormal) DF w/LA pressure. Normal RV. Mod to sev . - 07/13 s/p successful GURJIT using a Evolut FX+ 34 - 07/14 TTE 07/14: EF 62%. normal aortic valve prosthesis structure and function. No WMA. Compared with study dated - 07/14 CXR 07/14: Mild pulmonary vascular congestion - home diuretic: Bumex 0.5 mg daily - cont Bumex 0.5 mg daily (did not tolerate 1 mg due to decreased PO intake) - cont ASA indefinitely Acute Stroke 07/14 Delirium/Agitation Insomnia - CT head and CTA head/neck: negative for acute stroke or large vessel occlusion. Old L caudate hypodensity and R temporal hypodensity - MRI brain:scattered areas of acute to early subacute infarction within the cerebral hemispheres bilaterally. Left MCA distribution infarct correlates with patient's symptoms of aphasia. - Carotids with Lt > Rt with stenosis of the distal Lt common carotid artery measuring up to approximately 60-65%. Nonspecific white matter changes most likely represent small-vessel ischemic disease in a patient of this age. No evidence of acute cortical infarct, mass effect, or ICH. There are areas of encephalomalacia in the cerebellum which could reflect remote infarcts. - Neurology consulted, signed off 07/15: -- cardioembolic, periprocedural during TAVR -- does not need secondary stroke prevention -- no objection to DAPT, defer to primary -- follow up stroke clinic, continue speech therapy. - continues to have expressive and receptive aphasia - combative and agitated at times, occasionally refusing medications - Psychiatry consulted/following, appreciate recs: -- transferred to [facility] per Psychiatry for goal to liberate patient from sitter/restraints (HVI team remained primary) -- cont nightly 5 mg PO Olanzapine -- cont Olanzapine 2.5 BID PO/IM as needed for agitation -- cont Trazodone 25 mg nightly - Serial neuro and pain assessments - PO Tylenol and Tramadol PRN for pain - PT/OT Consult, [facility] following - Sleep/wake cycle normalization CKD Stage 4, stable - b/l Cr ~2-2.2, Cr on admit 2.27 - remains stable ~ baseline - meds as above - Avoid nephrotoxins and hypotension, trend EOD RFP/labs CAD HLD - 01/19/25 C: s/p PCI to prox-mid LAD using 2 WILLIE - lipid panel: HDL 35.4, LDL 76,Trigs 154 - Allergy to statin, continue zetia - cont ASA, Plavix for 1 year HTN - BP goal: avoid hypotension SBP <100 - SBP last 24 hrs: 130's - cont amlodipine 10mg daily DM 2 - A1C 7.0%, was 6.6% 02/2025 - home regimen: Jardiance 10 mg, Glargine 19U daily - cont Glargine 16 U nightly, Lispro SSI scale #3 - Accu-Cheks AC/HS, hypoglycemic protocol Urinary Retention BPH - Hx ureteroscopy, cysto with retrograde pyelogram and bladder lesion ablation 10/28/24. Cysto showed severe bladder trabeculation, no mass. Prostate enlargement. - Hx requiring de oliveira for 2 months, was on flomax and proscar - Hx cystoscopy showed severe bladder trabeculation, no mass, prostate enlargement S/P Endoscopic Anatomical Prostate Enucleation ~ HoLEP 03/30/25 with improvement in emptying - 07/15 Patient wants to urinate out of bed, for safety reasons kept in bed, unable to follow command to urinate in urinal. Became agitated. straight cath Q shift PRN urine >400 on bladder scan - 07/16 De Oliveira placed for continued need of straight cath (rec only 1/2 inflating balloon to decrease risk of potential injury . - 07/17-Good UO via de oliveira. Started Flomax 0.4 mg daily Constipation - on 07/23 reported LBM as prior to admission on 07/13 - 07/23 KUB: Nonobstructive bowel gas pattern with large stool burden, Mag citrate, Miralax added - 07/24 pt had large BM - cont aggressive bowel regimen Dispo: Lives with spouse, previously independent - Medically ready for discharge - PT/OT rec High Intensity at discharge, family in agreement - per mita ALEJANDRO approved, dc 07/26 to [facility] A[facility]USTE at 11am DVT ppx: subq Heparin Code Status: Full Code POA: Vicky Vergara (Jean): [phone] All labs, vital signs, tests & imaging results, and medications were reviewed. Patient seen and discussed with ERUM Reddy Cardiovascular [facility] [1] Scheduled medications Medication Dose Route Frequency amLODIPine 10 mg oral Daily aspirin 81 mg oral Daily bisacodyl 5 mg oral Nightly bumetanide 0.5 mg oral Daily clopidogrel 75 mg oral Daily ezetimibe 10 mg oral Daily gabapentin 300 mg oral BID heparin (porcine) 5,000 Units subcutaneous q8h [Held by provider] hydrALAZINE 25 mg oral TID insulin glargine 16 Units subcutaneous Nightly insulin lispro 0-15 Units subcutaneous TID AC melatonin 6 mg oral Daily OLANZapine 5 mg oral Nightly pantoprazole 40 mg oral Daily before breakfast Or pantoprazole 40 mg intravenous Daily before breakfast perflutren lipid microspheres 0.5-10 mL of dilution intravenous Once in imaging sennosides-docusate sodium 1 tablet oral BID tamsulosin 0.4 mg oral Daily traZODone 25 mg oral Nightly [2] PRN medications Medication acetaminophen Or acetaminophen Or acetaminophen benzocaine-menthol dextrose dextrose glucagon glucagon lidocaine-epinephrine OLANZapine ondansetron Or ondansetron oxygen phenoL prochlorperazine Or prochlorperazine Or prochlorperazine traMADol [3] Continuous Medications Medication Dose Last Rate Cosigned by Adriel Pena MD at 07/25/2025 3:38 PM EDT Associated attestation - Adriel Pena MD - 07/25/2025 3:38 PM EDT This is a shared visit. I have reviewed the Advanced Practice Provider's encounter note, approve the Advanced Practice Provider's documentation, and provide the following additional information from my personal encounter. HPI: Patient is an 85 year-old M s/p TAVR for aortic stenosis c/o nola-procedural stroke Physical exam Patient is in no acute distress There is no jugular venous distension. Heart rate is normal, rhythm is regular, S1 and S2 are normal. Soft systolic murmur, rub, or gallop. Lungs are clear bilaterally. Abdomen is soft and non-tender Lower extremities are warm without edema. Assessment/Plan 85 y.o M with hx of aortic stenosis s/p TAVR c/b nola-procedural embolic stroke. -CAD s/p P{CI -Aortic stenosis s/p RAVR -Embolic stroke -Hypertension -DM on insulin -Hyperlipidemia Continue aspirin, plavix, ezetimibe for CAD, stroke; insulin for DM; amlodipine, hydralazine Dispo planning, will be discharged to acute rehab facility. Kitty Stallworth" is a 85 y.o. male on day 12 of admission presenting with Nonrheumatic aortic (valve) stenosis. Subjective Chart reviewed, patient interviewed and case was discussed with staff. Staff reported no significant concerns. He was not able to participate in meaningful conversation. was by him stated that he was agitated over night Objective Physical Exam Psychiatric: Attention and Perception: He is inattentive. Mood and Affect: Affect is flat. Speech: He is communicative. Behavior: Behavior is withdrawn. Cognition and Memory: Cognition is impaired. Judgment: Judgment is inappropriate. Last Recorded Vitals Blood pressure 144/59, pulse 66, temperature 36.6 C (97.9 F), temperature source Temporal, resp. rate 16, height 1.753 m (5' 9"), weight 101 kg (221 lb 12.5 oz), SpO2 95%. Intake/Output last 3 Shifts: I/O last 3 completed shifts: In: 960 (9.5 mL/kg) [P.O.:960] Out: 1850 (18.4 mL/kg) [Urine:1850 (0.5 mL/kg/hr)] Weight: 100.6 kg Scheduled Medications[1] Problem List[2] PRN Medications[3] Assessment & Plan Mixed level of activity delirium due to multiple etiologies, persistent No criteria for inpatient psychiatry admission Use delirium precautions Keep Zyprexa 5 mg nightly with a plan to taper once agitation improves Abilio Ron MD [1] amLODIPine, 10 mg, oral, Daily aspirin, 81 mg, oral, Daily bisacodyl, 5 mg, oral, Nightly bumetanide, 0.5 mg, oral, Daily clopidogrel, 75 mg, oral, Daily ezetimibe, 10 mg, oral, Daily gabapentin, 300 mg, oral, BID heparin (porcine), 5,000 Units, subcutaneous, q8h [Held by provider] hydrALAZINE, 25 mg, oral, TID insulin glargine, 16 Units, subcutaneous, Nightly insulin lispro, 0-15 Units, subcutaneous, TID AC melatonin, 6 mg, oral, Daily OLANZapine, 5 mg, oral, Nightly pantoprazole, 40 mg, oral, Daily before breakfast Or pantoprazole, 40 mg, intravenous, Daily before breakfast perflutren lipid microspheres, 0.5-10 mL of dilution, intravenous, Once in imaging sennosides-docusate sodium, 1 tablet, oral, BID tamsulosin, 0.4 mg, oral, Daily traZODone, 25 mg, oral, Nightly [2] Patient Active Problem List Diagnosis BPH (benign prostatic hyperplasia) Chronic GERD Edema of both legs Gout Hyperlipidemia Hypertension Nocturia Obesity Chronic right shoulder pain 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, with long-term current use of insulin (Multi) Erectile dysfunction Urinary retention Lesion of bladder Bladder tumor Nonrheumatic aortic valve stenosis Chronic kidney disease (CKD), stage IV (severe) (Multi) Enlarged prostate with urinary obstruction H/O heart artery stent Bradycardia Nonrheumatic aortic (valve) stenosis Mixed level of activity delirium due to multiple etiologies, persistent S/P TAVR (transcatheter aortic valve replacement) [3] PRN medications: acetaminophen OR acetaminophen OR acetaminophen, benzocaine-menthol, dextrose, dextrose, glucagon, glucagon, lidocaine-epinephrine, OLANZapine, ondansetron OR ondansetron, oxygen, phenoL, prochlorperazine OR prochlorperazine OR prochlorperazine, traMADol Recreation Therapy Note Therapy Session Visit Type: Follow-up visit Session Start Time: 1350 Session End Time: 1352 Intervention Delivery: In-person Conflict of Service: None Number of family members present: 1 Family Present for Session: Spouse/Significant Other Family Participation: Supportive Number of staff members present: 1 Pre-assessment Mood/Affect: Tired/lethargic Verbalized Emotional State: (none) Treatment Areas of Focus: Coping, Socialization, Self-expression, Normalization, Stress reduction Co-Treatment: (none) Interruption: No Patient Fell Asleep at End of Session: Yes Post-assessment Mood/Affect: Tired/lethargic Verbalized Emotional State: (none) Continue Visiting: Yes Total Session Time (min): 2 minutes Narrative Assessment Detail: Upon arrival patient was resting in bed. Plan: To encourage the exploration of safe and effective positive leisure coping skills to manage situaitonal stressors. Intervention: Patient declined services at this time. 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 Follow-up: Will continue to encourage the exploration of positive leisure coping skills. Spiritual Care Visit Spiritual Care Request Reason for Visit: Routine Visit: Follow-up Request Received From: Referral From: Verbal Focus of Care: Visited With: Family Refer to Groundskeeping Maintenance: Referral To: Groundskeeping Maintenance Spiritual Care Annotation Annotation: Spiritual Care visit declined. Groundskeeping Maintenance will remain available for support. Signed: Eze Townsend Clinical Care Groundskeeping Maintenance Subjective Data: Seen and evaluated this am Discussed with night nurse slept for 5 to 6 hours Discussed with psyche yesterday and added trazadone and helped Also yesterday was up and eating meals worked with speech and PT did well. KUB showed stool burdeon and mag citrate and milk of mag> poop smears This am suppository on rounds an large BM on bedside commode this am Discussed with TAVR team no heart monitor needed OK for discharge Objective Data: Last Recorded Vitals: Vitals: 07/23/25 1515 07/23/25 1950 07/23/25 2314 07/24/25 0821 BP: 133/63 137/64 143/62 137/74 BP Location: Right arm Left arm Patient Position: Lying Lying Pulse: 71 73 65 75 Resp: 18 18 18 Temp: 36.1 C (97 F) 36.5 C (97.7 F) 36.5 C (97.7 F) TempSrc: Temporal Temporal SpO2: 97% 93% 93% 96% Weight: Height: Last Labs: CBC - 07/24/2025: 8:26 AM 12.1 11.2 277 35.3 CMP - 07/22/2025: 6:27 AM 9.1 6.8 18 --- 0.7 3.2 3.8 12 91 PTT - No results in last year. 1.1 12.7 _ TROPHS Date/Time Value Ref Range Status 03/04/2025 02:12 PM 11 0 - 20 ng/L Final 03/04/2025 01:10 PM 13 0 - 20 ng/L Final 10/18/2024 03:57 PM 11 0 - 20 ng/L Final BNP Date/Time Value Ref Range Status 10/18/2024 03:57 PM 321 0 - 99 pg/mL Final HGBA1C Date/Time Value Ref Range Status 07/15/2025 06:34 AM 7.0 See comment % Final 03/09/2025 08:32 AM 6.6 <5.7 % Final Comment: For someone without known diabetes, a hemoglobin A1c value of 6.5% or greater indicates that they may have diabetes and this should be confirmed with a follow-up test. For someone with known diabetes, a value <7% indicates that their diabetes is well controlled and a value greater than or equal to 7% indicates suboptimal control. A1c targets should be individualized based on duration of diabetes, age, comorbid conditions, and other considerations. Currently, no consensus exists regarding use of hemoglobin A1c for diagnosis of diabetes for children. 09/05/2024 07:38 AM 7.2 See comment % Final LDLCALC Date/Time Value Ref Range Status 07/15/2025 06:34 AM 76 <=99 mg/dL Final Comment: Near Borderline AGE Desirable Optimal High High Very High 0-19 Y 0 - 109 --- 110-129 >/= 130 ---- 20-24 Y 0 - 119 --- 120-159 >/= 160 ---- >24 Y 0 - 99 100-129 130-159 160-189 >/=190 LDL Cholesterol is calculated using the Friedewald equation. 09/26/2024 07:54 AM 42 <=99 mg/dL Final Comment: Near Borderline AGE Desirable Optimal High High Very High 0-19 Y 0 - 109 --- 110-129 >/= 130 ---- 20-24 Y 0 - 119 --- 120-159 >/= 160 ---- >24 Y 0 - 99 100-129 130-159 160-189 >/=190 VLDL Date/Time Value Ref Range Status 07/15/2025 06:34 AM 31 0 - 40 mg/dL Final 09/26/2024 07:54 AM 60 0 - 40 mg/dL Final 03/29/2022 07:54 AM SEE COMMENT 0 - 40 mg/dL Final Comment: Unable to calculate VLDL. 03/29/2020 08:37 AM SEE COMMENT 0 - 40 mg/dL Final Comment: Unable to calculate VLDL. Last I/O: I/O last 3 completed shifts: In: 120 (1.2 mL/kg) [P.O.:120] Out: 1750 (17.4 mL/kg) [Urine:1750 (0.5 mL/kg/hr)] Weight: 100.6 kg Echo:Ejection Fractions: EF Date/Time Value Ref Range Status 07/14/2025 03:18 PM 62 % 10/20/2024 07:19 AM 67 % Inpatient Medications: Scheduled Medications[1] PRN Medications[2] Continuous Medications[3] Physical Exam: General: intermittent sleepy , NAD, lying in bed Skin: warm and dry Head/ neck: no JVD seen at 90 degrees Cardiac: RRR, S1, S2 Pulm: CTAB, room air GI: soft, nontender : de oliveira Extremities: no LE edema Neuro: expressive aphasia, follows some commands Psych: agitated at times Assessment/Plan Kitty Vergara is a 85 y.o. male with a PMH of BPH, GERD, CKD stage 4, DMII hgAIc 6.6, CAD s/p LHC/RHC with PCI- 01/19/25, on Plavix and ASA 81mg, bardycardia, and severe non-rheumatic aortic stenosis. Pt presented on 07/13/2025 for elective TAVR. Overnight on 07/14/25 BAT called for abnormal speech and AMS concerning for stroke. Transferred to I service for management. TAVR 07/14 - TTE 07/14 EF 62%. normal aortic valve prosthesis structure and function. No WMA. Compared with study dated 07/13/2025, the patient is now s/p 34 mm Evolut Fx+ TAVR with reduction in aortic gradients. - CXR 07/14 Mild pulmonary vascular congestion compared to the previous study. - 07/15 Home bumex dose is 0.5, increased to 1mg on 07/13. Lowered back to 0.5 since he had confusion and taking less PO intake today. - Single antiplatelet for life is recommended post tavr but given with pt h xof PCI 01/19/25 pt will need ASA and Plavix until next year 01/19/26 Acute Stroke 07/14 - expressive and receptive aphasia - CT head and CTA head/neck which did not demonstrate any new stroke or any large vessel occlusion. - Carodis with Left greater than right with stenosis of the distal left common carotid artery measuring up to approximately 60-65%. Nonspecific white matter changes most likely represent small-vessel ischemic disease in a patient of this age. No evidence of acute cortical infarct, mass effect, or ICH. There are areas of encephalomalacia in the cerebellum which could reflect remote infarcts. - MRI brain 07/14 scattered areas of acute to early subacute infarction within the cerebral hemispheres bilaterally left greater than right as well as within the left cerebellar hemisphere as described above. The dominant area of acute to early subacute infarction is identified within the left temporoparietal region. The above findings are superimposed upon moderate brain parenchymal volume loss. There are scattered as well as more patchy and confluent nonspecific white matter changes again noted within cerebral hemispheres bilaterally as well as ill-defined increased signal on the FLAIR and T2 images overlying the brainstem which while nonspecific, given the patient's age, likely represent sequelae of more remote small-vessel ischemic change. Additional small foci of bright signal on the T2 images are identified within the subinsular regions, basal ganglia, and thalami bilaterally suggesting incidental mildly prominent perivascular spaces and/or scattered more remote lacunar infarctions.Scattered areas of encephalomalacia are identified within the cerebellum as well as along the posterior right occipital lobe. - Neuro consulted, no objection to DAPT, defer to primary. Follow up stroke clinic (requested), continue speech therapy. Signed off - PT/OT - 07/15 Combative, required haldol. - 07/16 Psych consulted for agitation mgmt - Hx fall day of TAVR, slipped off chair in kitchen and landed on buttocks. No trauma. -07/17--Transferred to [facility] per Psychiatry for goal to liberate patient from sitter/restraints (Will remain primary w/ co-management ) - 07/20 refusing to take meds today but was able to finally accept DAPT. - 07/21 agitation overnight, no med changes per psych, speech therapy completed swallow eval, no discussion on aphagia and assist on communication aid which may help agitation, message sent to [facility]. - 07/22 no agitation noted. PT/OT/[facility] to see patient again today. Needs to have BM; will try suppository. Otherwise, medically ready for discharge. Facility to accept tomorrow if patient remains calm/cooperative. CKD Stage 4 - Cr today 2.04, 2.26 (2.24, 2.52, 2.53) - Baseline 2-2.2 - 07/15 Reduce bumex back to home dose of 0.5 - 07/21 For sake of patient agitation, will check labs Q48 hours CAD HLP - s/p PCI to prox-mid LAD using [address] Jessie Fay - Single antiplatelet for life is recommended post tavr but given with pt h xof PCI 01/19/25 pt will need ASA and Plavix until next year 01/19/26 - lipid panel ordered per neuro request ->HDL 35.4, LDL 76,Trigs 154 - Allergy to statin, continue zetia HTN - SBP elevated - Blood pressure goals: avoid hypotension SBP <100 that could worsen cerebral perfusion, permissive HTN - Continue amlodipine 2.5mg daily-07/18 Increased to 5 mg - 07/21 increase amlodipine to 10mg daily - 07/23 Add hydralazine 25 mg tid DM - HgbA1C 6.6 02/2025 - (7.0) rechecked HgbA1C per neuro request - Lantus 10u+SS - 07/19 persistent hyperglycemia- increased Glargine from 10 to 14 units nightly (home dose 19 units nightly) - 07/20 increased SS to #3. - 07/21 increase glargine to 16u Urinary Retention BPH - Hx ureteroscopy, cysto with retrograde pyelogram and bladder lesion ablation 10/28/24. Cysto showed severe bladder trabeculation, no mass. Prostate enlargement. - Hx requiring de oliveira for 2 months, was on flomax and proscar - Hx cystoscopy showed severe bladder trabeculation, no mass, prostate enlargement S/P Endoscopic Anatomical Prostate Enucleation ~ HoLEP 03/30/25 with improvement in emptying - 07/15 Patient wants to urinate out of bed, for safety reasons kept in bed, unable to follow command to urinate in urinal. Became agitated. straight cath Q shift PRN urine >400 on bladder scan - 07/16 De Oliveira placed for continued need of straight cath (rec only 1/ inflating balloon to decrease risk of potential injury . - 07/17-Good UO via de oliveira. Started Flomax 0.4 mg daily Constipation 07/23 Check KUB On miralax and dulcolax PO daily add mag citrate today and increase bowel regime DVT ppx:heparin subcutaneous DISPO: PT and speech to see today with family members present Family chose SNF in [place]. Facility wants to movitor patient another 24 hours prior to accepting. . Psychiatry ok for DC. Awaiting precert. Code Status: Full Code All labs, vital signs, tests & imaging results, and medications were reviewed. Seen and discussed with Dr. Gabriel Jaramillo MINE ENGINEERING SUPERVISOR [1] Scheduled medications Medication Dose Route Frequency amLODIPine 10 mg oral Daily aspirin 81 mg oral Daily bisacodyl 5 mg oral Nightly bumetanide 0.5 mg oral Daily clopidogrel 75 mg oral Daily ezetimibe 10 mg oral Daily gabapentin 300 mg oral BID heparin (porcine) 5,000 Units subcutaneous q8h [Held by provider] hydrALAZINE 25 mg oral TID insulin glargine 16 Units subcutaneous Nightly insulin lispro 0-15 Units subcutaneous TID AC melatonin 6 mg oral Daily OLANZapine 5 mg oral Nightly pantoprazole 40 mg oral Daily before breakfast Or pantoprazole 40 mg intravenous Daily before breakfast perflutren lipid microspheres 0.5-10 mL of dilution intravenous Once in imaging sennosides-docusate sodium 1 tablet oral BID tamsulosin 0.4 mg oral Daily traZODone 25 mg oral Nightly [2] PRN medications Medication acetaminophen Or acetaminophen Or acetaminophen benzocaine-menthol dextrose dextrose glucagon glucagon lidocaine-epinephrine OLANZapine ondansetron Or ondansetron oxygen phenoL prochlorperazine Or prochlorperazine Or prochlorperazine traMADol [3] Continuous Medications Medication Dose Last Rate Cosigned by Kapil Rios MD at 07/24/2025 2:51 PM EDT Associated attestation - Kapil Rios MD - 07/24/2025 2:51 PM EDT This is a shared visit. I have reviewed the Advanced Practice Provider's encounter note, approve the Advanced Practice Provider's documentation, and provide the following additional information from my personal encounter. Mr. 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 He has a history of HTN, HLD, DM2, CKD4, CAD s/p PCI 01/19/25, severe , gout, OA, obesity, BPH. Admitted 07/13/25 post TAVR. Develop aphasia evening 07/13 post-procedure. BAT called. CT/CTA 07/14 without LVO or ICH. MRI brain showed acute to subacute embolic infarcts L>M hemispheres and left cerebellum consistent with nola-procedural cardioembolism. Course complicated by agitation and delirium requiring antipsychotics and De Oliveira for urinary retention. Transferred 07/17 to [facility] for co-management with psychiatry to facilitate restraint/sitter wean and behavioral stabilization; patient continues to intermittently experience delirium but is now off-sitter and is doing ok today. Patient is now having BMs. Pending discharge based on bed availability at facility. Per Structural, no need for event monitor on discharge. KUB with nonobstructive gas pattern with large stool burden. Gen: intermittently confused HEENT: normocephalic. Trachea midline CV: RRR. Soft systolic murmur, no gallops, rubs Pulm: clear to auscultation bilaterally. No coarse lung sounds Abd: soft, non-distended. Normal active bowel sounds Ext: warm and well-perfused Psych: appropriate affect Plan -Dispo planning: pending facility placement -Delirium precautions: labs q48h. Qshift vitals Appreciate Psych recs -Resume Melatonin + low-dose Trazodone at night to help with sleep. Can obtain repeat ECG to ensure QTc stability -Optimization of bowel regimen -Speech evaluation and assessment -PT/OT -Continue to monitor on tele 07/24/25 0916 Rapid Rounds Attendance Provider;Care Transitions Expected Discharge Disposition Rehab ([facility]) Today we still await: Placement process Awaiting final acceptance from [facility]. Facility states they will submit for auth when clinically accepted. SW left voicemail for global marketing coordinator requesting call back on whether or not patient is officially accepted and if auth has been submitted. Awaiting call back. Update 0934: Spoke with admissions at [facility] regarding this morning's updates (bowel movement and sleeping better without agitation). She states she will bring updates to DON and call back when accepted and precert started. Update 1208: Julianna at [facility] states they are able to accept and has begun precert with Hiram. She does not anticipate auth today, but leaves the possibility open. She will be monitoring for auth over the weekend and they can accept patient over the weekend if auth received. Of note, Julianna cannot communicate via careport and care transitions staff will need to call her at [phone] and leave a message. She will quickly return your call. Please call patient's on, Surinder, at [phone] with discharge updates as he will need to provide transport for patient's spouse who is staying at the hospital. Physical Therapy Physical Therapy Treatment Patient Name: Kitty Allen Department: [place] [id number] Room: [address] [place] [address] Today's Date: 07/23/2025 Time Calculation Start Time: 1234 Stop Time: 1303 Time Calculation (min): 29 min Assessment/Plan PT Assessment End of Session Communication: Bedside nurse Assessment Comment: Pt able to stand 2 times this session with Mod A X1 and FWW. Pt reporting nausea again with standing. BP taken in sitting reading 92/66. Attempted BP in standing; however, pt unable to tolerate long enough to obtain reading. Pt remains a great candidate for High Intensity Rehab after DC. End of Session Patient Position: Bed, 3 rail up, Alarm on PT Plan Treatment/Interventions: Bed mobility, Transfer training, Gait training, Balance training, Neuromuscular re-education, Strengthening, Endurance training, Therapeutic exercise, Therapeutic activity, Home exercise program PT Plan: Ongoing PT PT Frequency for Current Admission: 5 times per week during this acute inpatient hospitalization PT Discharge Recommendations: High intensity level of continued care Equipment Recommended upon Discharge: (tbd) PT Recommended Transfer Status: Assist x2 PT - OK to Discharge: Yes PT Visit Info: PT Received On: 07/23/25 Response to Previous Treatment: Patient with no complaints from previous session. General Visit Information: General Family/Caregiver Present: Yes Caregiver Feedback: and other family member present during session Prior to Session Communication: Bedside nurse (AMBULANCE ASSISTANT) Patient Position Received: Bed, 3 rail up, Alarm on Preferred Learning Style: auditory, verbal, visual General Comment: Pt pleasant and agreeable to PT session Subjective Precautions: Precautions Hearing/Visual Limitations: HAs Medical Precautions: Fall precautions, Cardiac precautions Vital Signs Comment: Pt reporting nausea. Attempted standing BP, but pt unable to tolerate Objective Pain: Pain Assessment Pain Assessment: 0-10 0-10 (Numeric) Pain Score: 0 - No pain (Pt not appearing in pain during session) Cognition: Cognition Overall Cognitive Status: Impaired Orientation Level: Unable to assess (Due to aphasia) Insight: Moderate Impulsive: Moderately Coordination: Movements are Fluid and Coordinated: Yes Postural Control: Postural Control Postural Control: Within Functional Limits Static Sitting Balance Static Sitting-Balance Support: Feet supported, Bilateral upper extremity supported Static Sitting-Level of Assistance: Close supervision Static Sitting-Comment/Number of Minutes: 15 mins total Static Standing Balance Static Standing-Balance Support: Bilateral upper extremity supported Static Standing-Level of Assistance: Contact guard Static Standing-Comment/Number of Minutes: 30s, 15s Extremity/Trunk Assessments: RLE RLE : Exceptions to WFL Strength RLE RLE Overall Strength: Greater than or equal to 3/5 as evidenced by functional mobility, Deficits, Due to cognitive deficits LLE LLE : Exceptions to WFL Strength LLE LLE Overall Strength: Greater than or equal to 3/5 as evidenced by functional mobility, Deficits, Due to cognitive deficits Activity Tolerance: Activity Tolerance Endurance: Tolerates 10 - 20 min exercise with multiple rests Early Mobility/Exercise Safety Screen: Proceed with mobilization - No exclusion criteria met Treatments: Therapeutic Exercise Therapeutic Exercise Performed: Yes Therapeutic Exercise Activity 1: Seated EOB: LAQ X10 BLE Bed Mobility Bed Mobility: Yes Bed Mobility 1 Bed Mobility 1: Supine to sitting Level of Assistance 1: Minimum assistance, Maximum verbal cues, Moderate tactile cues Bed Mobility Comments 1: HOB elevated, verbal and tactile cues for sequencing Bed Mobility 2 Bed Mobility 2: Sitting to supine Level of Assistance 2: Contact guard Bed Mobility 3 Bed Mobility 3: Scooting Level of Assistance 3: Dependent, +2 Bed Mobility Comments 3: Boost Ambulation/Gait Training Ambulation/Gait Training Performed: No (Unable due to nausea) Transfers Transfer: Yes Transfer 1 Transfer From 1: Bed to, Stand to Transfer to 1: Stand, Bed Technique 1: Sit to stand, Stand to sit Transfer Device 1: Walker Transfer Level of Assistance 1: Moderate assistance, Moderate verbal cues Trials/Comments 1: X2 trials, Bed height elevated Outcome Measures: [facility] Basic Mobility Turning from your back to your side while in a flat bed without using bedrails: A little Moving from lying on your back to sitting on the side of a flat bed without using bedrails: A little Moving to and from bed to chair (including a wheelchair): A lot Standing up from a chair using your arms (e.g. wheelchair or bedside chair): A lot To walk in hospital room: Total Climbing 3-5 steps with railing: Total Basic Mobility - Total Score: 12 Education Documentation Body Mechanics, taught by Rian Dorado PT at 07/23/2025 3:10 PM. Learner: Family, Patient Readiness: Acceptance Method: Explanation, Demonstration Response: Verbalizes Understanding, Demonstrated Understanding Comment: PT POC, LE exercises Precautions, taught by Rian Dorado PT at 07/23/2025 3:10 PM. Learner: Family, Patient Readiness: Acceptance Method: Explanation, Demonstration Response: Verbalizes Understanding, Demonstrated Understanding Comment: PT POC, LE exercises Mobility Training, taught by Rian Dorado PT at 07/23/2025 3:10 PM. Learner: Family, Patient Readiness: Acceptance Method: Explanation, Demonstration Response: Verbalizes Understanding, Demonstrated Understanding Comment: PT POC, LE exercises Care Plan Goals: Encounter Problems Encounter Problems (Active) Balance Patient to demo static standing with unilateral UE support, performing single UE task with CGAx1, no sway or LOB x 2 mins for functional carryover (Progressing) Start: 07/14/25 Expected End: 07/28/25 Mobility STG - Patient will ambulate >/= 50 ft with CGAx1 and LRAD (Not Progressing) Start: 07/14/25 Expected End: 07/28/25 Pt. will tolerate >/= 10 minutes of OOB mobility without seated rest break and VSS to demo improved activity tolerance/endurance. (Progressing) Start: 07/14/25 Expected End: 07/28/25 Patient will actively participate in ther-ex in order to improve strength and to assist with the completion of functional mobility tasks. (Progressing) Start: 07/14/25 Expected End: 07/28/25 PT Transfers STG - Patient will perform bed mobility IND (Progressing) Start: 07/14/25 Expected End: 07/28/25 STG - Patient will transfer sit to and from stand with CGAx1 and LRAD (Progressing) Start: 07/14/25 Expected End: 07/28/25 Speech-Language Pathology Adult Inpatient Speech/Language/Cognitive Treatment Patient Name: Kitty Allen Today's Date: 07/23/2025 Start Time: 1345 Stop Time: 1415 Time Calculation (min): 30 Impression: Speech/language treatment completed. Pt awake/alert and upright in bed for session w/ spouse and son-in-law at bedside. Per family, pt persistently aphasic and w/ intermittent frustration re: communication. Family also reports increased agitation overnight and drowsy this AM but w/ improvement at this time. The following tasks were completed: Receptive Language Yes/No Questions Simple: 60% acc independently Following Commands 1 Step: 33% acc independently Receptive ID: 25% acc independently Expressive Language Automatic Sequences 1-10: 0% acc independently Repetition Words: 0% acc independently Confrontational Namin% acc independently Writin% acc independently Pt continues to present w/ severe expressive and receptive language deficits. Spontaneous language characterized by frequent phonemic and semantic paraphasias, perseveration, and halting speech. With receptive language tasks, pt inconsistently able to answer simple yes/no questions and demonstrated improvement in 1-step command following/receptive ID w/ tactile cues and modeling by ROOF PLUMBER. Expressively, pt benefitted from visual cues for automatic sequence (i.e., manual representation of numbers) though perseverated on the number "2" w/ verbal recitation. Pt w/ frequent paraphasias during word repetition and confrontational naming tasks. Additionally, pt able to manually copy his first name "Alejandro" x2 during writing task; unable to successfully copy last name despite x4 attempts. Given severity of deficits, pt will require intensive speech therapy services at next level of care targeting severe expressive and receptive aphasia. Education provided to both spouse and son-in-law re: current language function and POC w/ family verbalizing understanding. MD aware. Recommend Speech Therapy Services: Yes; Targeting severe expressive/receptive aphasia Goal(s): Patient will improve expressive language skills to allow for communication of wants and needs in daily activities with 90% accuracy given minimal cues. Patient will improve receptive language skills to allow for communication of wants and needs in daily activities with 90% accuracy given minimal cues. Start Date: 07/16/2025 End Date: 08/16/2025 Status: Not Progressing Plan: ROOF PLUMBER Services Indicated: Yes Frequency: 1x per week (in acute care setting) Discussed POC with patient, spouse, and NICOLE ROOF PLUMBER - OK to Discharge Pain: 0-10 0 = No pain. Inpatient Education: Extensive education provided to patient, spouse, and NICOLE regarding current speech/language/cognitive function, recommendations/results, and POC. Consultations/Referrals/Coordinat ion of Services: N/A Subjective Data: Seen and evaluated patient at bedside at bedside , was agitated and awake often Discussed with psyche will add trazadone and scheduled melatonin Reports last BM was before procedure ~10 days ago > adding mag citrate and miralax will check KUB Discussed with family and speech and PT will get services today with family present Objective Data: Last Recorded Vitals: Vitals: 07/22/25 1926 07/22/25 2352 07/23/25 0600 07/23/25 0749 BP: 138/64 140/64 161/78 BP Location: Left arm Right arm Patient Position: Lying Lying Pulse: 72 72 79 Resp: 17 16 15 Temp: 37 C (98.6 F) 36.7 C (98.1 F) 36.6 C (97.9 F) TempSrc: Temporal Temporal SpO2: 93% 92% 96% Weight: 101 kg (221 lb 12.5 oz) Height: Last Labs: CBC - 07/22/2025: 6:27 AM 11.0 11.3 236 35.3 CMP - 07/22/2025: 6:27 AM 9.1 6.8 18 --- 0.7 3.2 3.8 12 91 PTT - No results in last year. 1.1 12.7 _ TROPHS Date/Time Value Ref Range Status 03/04/2025 02:12 PM 11 0 - 20 ng/L Final 03/04/2025 01:10 PM 13 0 - 20 ng/L Final 10/18/2024 03:57 PM 11 0 - 20 ng/L Final BNP Date/Time Value Ref Range Status 10/18/2024 03:57 PM 321 0 - 99 pg/mL Final HGBA1C Date/Time Value Ref Range Status 07/15/2025 06:34 AM 7.0 See comment % Final 03/09/2025 08:32 AM 6.6 <5.7 % Final Comment: For someone without known diabetes, a hemoglobin A1c value of 6.5% or greater indicates that they may have diabetes and this should be confirmed with a follow-up test. For someone with known diabetes, a value <7% indicates that their diabetes is well controlled and a value greater than or equal to 7% indicates suboptimal control. A1c targets should be individualized based on duration of diabetes, age, comorbid conditions, and other considerations. Currently, no consensus exists regarding use of hemoglobin A1c for diagnosis of diabetes for children. 09/05/2024 07:38 AM 7.2 See comment % Final LDLCALC Date/Time Value Ref Range Status 07/15/2025 06:34 AM 76 <=99 mg/dL Final Comment: Near Borderline AGE Desirable Optimal High High Very High 0-19 Y 0 - 109 --- 110-129 >/= 130 ---- 20-24 Y 0 - 119 --- 120-159 >/= 160 ---- >24 Y 0 - 99 100-129 130-159 160-189 >/=190 LDL Cholesterol is calculated using the Friedewald equation. 09/26/2024 07:54 AM 42 <=99 mg/dL Final Comment: Near Borderline AGE Desirable Optimal High High Very High 0-19 Y 0 - 109 --- 110-129 >/= 130 ---- 20-24 Y 0 - 119 --- 120-159 >/= 160 ---- >24 Y 0 - 99 100-129 130-159 160-189 >/=190 VLDL Date/Time Value Ref Range Status 07/15/2025 06:34 AM 31 0 - 40 mg/dL Final 09/26/2024 07:54 AM 60 0 - 40 mg/dL Final 03/29/2022 07:54 AM SEE COMMENT 0 - 40 mg/dL Final Comment: Unable to calculate VLDL. 03/29/2020 08:37 AM SEE COMMENT 0 - 40 mg/dL Final Comment: Unable to calculate VLDL. Last I/O: I/O last 3 completed shifts: In: - (0 mL/kg) Out: 700 (7 mL/kg) [Urine:700 (0.2 mL/kg/hr)] Weight: 100.6 kg Echo:Ejection Fractions: EF Date/Time Value Ref Range Status 07/14/2025 03:18 PM 62 % 10/20/2024 07:19 AM 67 % Inpatient Medications: Scheduled Medications[1] PRN Medications[2] Continuous Medications[3] Physical Exam: General: intermittent sleepy , NAD, lying in bed Skin: warm and dry Head/ neck: no JVD seen at 90 degrees Cardiac: RRR, S1, S2 Pulm: CTAB, room air GI: soft, nontender : de oliveira Extremities: no LE edema Neuro: expressive aphasia, follows some commands Psych: agitated at times Assessment/Plan Kitty Vergara is a 85 y.o. male with a PMH of BPH, GERD, CKD stage 4, DMII hgAIc 6.6, CAD s/p LHC/RHC with PCI- 01/19/25, on Plavix and ASA 81mg, bardycardia, and severe non-rheumatic aortic stenosis. Pt presented on 07/13/2025 for elective TAVR. Overnight on 07/14/25 BAT called for abnormal speech and AMS concerning for stroke. Transferred to I service for management. TAVR 07/14 - TTE 07/14 EF 62%. normal aortic valve prosthesis structure and function. No WMA. Compared with study dated 07/13/2025, the patient is now s/p 34 mm Evolut Fx+ TAVR with reduction in aortic gradients. - CXR 07/14 Mild pulmonary vascular congestion compared to the previous study. - 07/15 Home bumex dose is 0.5, increased to 1mg on 07/13. Lowered back to 0.5 since he had confusion and taking less PO intake today. - Single antiplatelet for life is recommended post tavr but given with pt h xof PCI 01/19/25 pt will need ASA and Plavix until next year 01/19/26 Acute Stroke 07/14 - expressive and receptive aphasia - CT head and CTA head/neck which did not demonstrate any new stroke or any large vessel occlusion. - Carodis with Left greater than right with stenosis of the distal left common carotid artery measuring up to approximately 60-65%. Nonspecific white matter changes most likely represent small-vessel ischemic disease in a patient of this age. No evidence of acute cortical infarct, mass effect, or ICH. There are areas of encephalomalacia in the cerebellum which could reflect remote infarcts. - MRI brain 07/14 scattered areas of acute to early subacute infarction within the cerebral hemispheres bilaterally left greater than right as well as within the left cerebellar hemisphere as described above. The dominant area of acute to early subacute infarction is identified within the left temporoparietal region. The above findings are superimposed upon moderate brain parenchymal volume loss. There are scattered as well as more patchy and confluent nonspecific white matter changes again noted within cerebral hemispheres bilaterally as well as ill-defined increased signal on the FLAIR and T2 images overlying the brainstem which while nonspecific, given the patient's age, likely represent sequelae of more remote small-vessel ischemic change. Additional small foci of bright signal on the T2 images are identified within the subinsular regions, basal ganglia, and thalami bilaterally suggesting incidental mildly prominent perivascular spaces and/or scattered more remote lacunar infarctions.Scattered areas of encephalomalacia are identified within the cerebellum as well as along the posterior right occipital lobe. - Neuro consulted, no objection to DAPT, defer to primary. Follow up stroke clinic (requested), continue speech therapy. Signed off - PT/OT - 07/15 Combative, required haldol. - 07/16 Psych consulted for agitation mgmt - Hx fall day of TAVR, slipped off chair in kitchen and landed on buttocks. No trauma. -07/17--Transferred to [facility] per Psychiatry for goal to liberate patient from sitter/restraints (Will remain primary w/ co-management ) - 07/20 refusing to take meds today but was able to finally accept DAPT. - 07/21 agitation overnight, no med changes per psych, speech therapy completed swallow eval, no discussion on aphagia and assist on communication aid which may help agitation, message sent to ROOF PLUMBER. - 07/22 no agitation noted. PT/OT/ROOF PLUMBER to see patient again today. Needs to have BM; will try suppository. Otherwise, medically ready for discharge. Facility to accept tomorrow if patient remains calm/cooperative. Holter monitor on discharge. CKD Stage 4 - Cr today 2.04, 2.26 (2.24, 2.52, 2.53) - Baseline 2-2.2 - 07/15 Reduce bumex back to home dose of 0.5 - 07/21 For sake of patient agitation, will check labs Q48 hours CAD HLP - s/p PCI to prox-mid LAD using [address] Jessie Fay - Single antiplatelet for life is recommended post tavr but given with pt h xof PCI 01/19/25 pt will need ASA and Plavix until next year 01/19/26 - lipid panel ordered per neuro request ->HDL 35.4, LDL 76,Trigs 154 - Allergy to statin, continue zetia HTN - SBP elevated - Blood pressure goals: avoid hypotension SBP <100 that could worsen cerebral perfusion, permissive HTN - Continue amlodipine 2.5mg daily-07/18 Increased to 5 mg - 07/21 increase amlodipine to 10mg daily - 07/23 Add hydralazine 25 mg tid DM - HgbA1C 6.6 02/2025 - (7.0) rechecked HgbA1C per neuro request - Lantus 10u+SS - 07/19 persistent hyperglycemia- increased Glargine from 10 to 14 units nightly (home dose 19 units nightly) - 07/20 increased SS to #3. - 07/21 increase glargine to 16u Urinary Retention BPH - Hx ureteroscopy, cysto with retrograde pyelogram and bladder lesion ablation 10/28/24. Cysto showed severe bladder trabeculation, no mass. Prostate enlargement. - Hx requiring de oliveira for 2 months, was on flomax and proscar - Hx cystoscopy showed severe bladder trabeculation, no mass, prostate enlargement S/P Endoscopic Anatomical Prostate Enucleation ~ HoLEP 03/30/25 with improvement in emptying - 07/15 Patient wants to urinate out of bed, for safety reasons kept in bed, unable to follow command to urinate in urinal. Became agitated. straight cath Q shift PRN urine >400 on bladder scan - 07/16 De Oliveira placed for continued need of straight cath (rec only 1/2 inflating balloon to decrease risk of potential injury . - 07/17-Good UO via de oliveira. Started Flomax 0.4 mg daily Constipation 07/23 Check KUB On miralax and dulcolax PO daily add mag citrate today and increase bowel regime DVT ppx:heparin subcutaneous DISPO: PT and speech to see today with family members present Family chose SNF in [place]. Facility wants to movitor patient another 24 hours prior to accepting. Back up options are being considered as well. Psychiatry ok for DC. Awaiting precert. - Holter monitor on discharge Code Status: Full Code All labs, vital signs, tests & imaging results, and medications were reviewed. Seen and discussed with Dr. Gabriel Jaramillo MINE ENGINEERING SUPERVISOR [1] Scheduled medications Medication Dose Route Frequency amLODIPine 10 mg oral Daily aspirin 81 mg oral Daily bisacodyl 5 mg oral Nightly bisacodyl 10 mg rectal Once bumetanide 0.5 mg oral Daily clopidogrel 75 mg oral Daily ezetimibe 10 mg oral Daily gabapentin 300 mg oral BID heparin (porcine) 5,000 Units subcutaneous q8h hydrALAZINE 25 mg oral TID insulin glargine 16 Units subcutaneous Nightly insulin lispro 0-15 Units subcutaneous TID AC lactulose 20 g oral q2h OLANZapine 5 mg oral Nightly pantoprazole 40 mg oral Daily before breakfast Or pantoprazole 40 mg intravenous Daily before breakfast perflutren lipid microspheres 0.5-10 mL of dilution intravenous Once in imaging sennosides-docusate sodium 1 tablet oral BID tamsulosin 0.4 mg oral Daily [2] PRN medications Medication acetaminophen Or acetaminophen Or acetaminophen benzocaine-menthol dextrose dextrose glucagon glucagon lidocaine-epinephrine melatonin OLANZapine ondansetron Or ondansetron oxygen phenoL prochlorperazine Or prochlorperazine Or prochlorperazine traMADol [3] Continuous Medications Medication Dose Last Rate Cosigned by Kapil Rios MD at 07/23/2025 1:44 PM EDT Associated attestation - Kapil Rios MD - 07/23/2025 1:44 PM EDT This is a shared visit. I have reviewed the Advanced Practice Provider's encounter note, approve the Advanced Practice Provider's documentation, and provide the following additional information from my personal encounter. Mr. 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 He has a history of HTN, HLD, DM2, CKD4, CAD s/p PCI 01/19/25, severe , gout, OA, obesity, BPH. Admitted 07/13/25 post TAVR. Develop aphasia evening 07/13 post-procedure. BAT called. CT/CTA 07/14 without LVO or ICH. MRI brain showed acute to subacute embolic infarcts L>M hemispheres and left cerebellum consistent with nola-procedural cardioembolism. Course complicated by agitation and delirium requiring antipsychotics and De Oliveira for urinary retention. Transferred 07/17 to [facility] for co-management with psychiatry to facilitate restraint/sitter wean and behavioral stabilization; patient continues to intermittently experience delirium but is now off-sitter and is doing ok today; he was sleeping when seen. It appears that he gets limited sleep during the night time. Pending discharge based on bed availability at facility. Gen: intermittently confused HEENT: normocephalic. Trachea midline CV: RRR. Soft systolic murmur, no gallops, rubs Pulm: clear to auscultation bilaterally. No coarse lung sounds Abd: soft, non-distended. Normal active bowel sounds Ext: warm and well-perfused Psych: appropriate affect Plan -Dispo planning: pending facility placement -Will need [employer] monitor on discharge -Delirium precautions: labs q48h. Qshift vitals. Appreciate Psych recs -Resume Melatonin + low-dose Trazodone at night to help with sleep. Can obtain repeat ECG to ensure QTc stability -Aggressive optimization of bowel regimen. Obtain KUB -Speech evaluation and assessment -PT/OT -Continue to monitor on tele Physical Therapy Therapy Communication Note Patient Name: Kitty Allen Department: [place] [id number] Room: [address] [place] [address] Today's Date: 07/23/2025 Discipline: Physical Therapy Missed Visit: PT Missed Visit: Yes Missed Visit Reason: Missed Visit Reason: Other (Comment) (Pt very drowsy. Pt's reporting he had a rough night last night. Pt able to awake momentarily before falling back to sleep. Will follow up when pt is more alert and appropriate for mobility.) Missed Time: Attempt 07/23/25 0835 Discharge Planning Expected Discharge Disposition Rehab Does the patient need discharge transport arranged? Yes [employer] coordination needed? Yes Has discharge transport been arranged? No This [facility] sent updated notes to [facility] and called and talked with Angela for updates on if pt can be accepted. Per Angela she will update me shortly on acceptance. Awaiting a response. [id number] Per [facility] they want to see how the pt does for one more day and then they can accept him and start pre-cert process tomorrow. updated. TCC to send updated clinicals to [facility] morning of 07/24. TCC to follow for discharge planning. [place] HARRIS, [facility] [phone] [email or web address] Recreation Therapy Note Therapy Session Visit Type: New visit Session Start Time: 1355 Session End Time: 1418 Intervention Delivery: In-person Conflict of Service: None Number of family members present: 2 Family Present for Session: Spouse/Significant Other Number of staff members present: 1 Pre-assessment Mood/Affect: Confused Verbalized Emotional State: (unable) Treatment Areas of Focus: Coping, Socialization, Self-expression, Normalization, Stress reduction Co-Treatment: (none) Interruption: No Patient Fell Asleep at End of Session: No Post-assessment Mood/Affect: Confused, Participative Verbalized Emotional State: (unable to) Continue Visiting: Yes Total Session Time (min): 23 minutes Narrative Assessment Detail: Upon arrival patient was resting in bed and had two family members in the room. Plan: To encourage the exploraiton of safe and effectrive positive leisure coping skills to manage situational stressors. Intervention: Patient worked on a [employer] project. Evaluation: Patient was attempting to verbally communicate with his family members upon arrival and was able to tell them his name and a few other words upon arrival. Patient repeatedly wrote a number of letters on a pad of paper but none present were able to understand the idea he was trying to convey. With some minimal assistance in the beginning patient was able to work on painting a wooden [employer]. Able to paint approximately 50% of the [employer] project. Used the tools appropriately. Appeared to understand quite a bit of what was being said but unable to reply. Follow-up: Will continue to encourage the exploraiton of positive leisure copiong skills. Mr. 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 He has a history of HTN, HLD, DM2, CKD4, CAD s/p PCI 01/19/25, severe , gout, OA, obesity, BPH. Admitted 07/13/25 post TAVR. Physical Therapy Physical Therapy Treatment Patient Name: Kitty Allen Department: [facility] Room: [address] [place] [address] Today's Date: 07/22/2025 Time Calculation Start Time: 1415 Stop Time: 1444 Time Calculation (min): 29 min Assessment/Plan PT Assessment End of Session Communication: Bedside nurse Assessment Comment: Pt able to perform 2 sit to stand transfers this date with 1-person assist. Pt reporting nausea with standing, so unable to complete further mobility. Pt is limited by cognition, strength and balance. Pt remains a great candidate for High Intensity Rehab after DC to address these deficits. End of Session Patient Position: Bed, 3 rail up, Alarm on PT Plan Treatment/Interventions: Bed mobility, Transfer training, Gait training, Balance training, Neuromuscular re-education, Strengthening, Endurance training, Therapeutic exercise, Therapeutic activity, Home exercise program PT Plan: Ongoing PT PT Frequency for Current Admission: 5 times per week during this acute inpatient hospitalization PT Discharge Recommendations: High intensity level of continued care Equipment Recommended upon Discharge: (tbd) PT Recommended Transfer Status: Assist x2 PT - OK to Discharge: Yes PT Visit Info: PT Received On: 07/22/25 Response to Previous Treatment: Patient with no complaints from previous session. General Visit Information: General Family/Caregiver Present: Yes Caregiver Feedback: and daughter in law present and supportive during session Prior to Session Communication: Bedside nurse Patient Position Received: Bed, 3 rail up, Alarm on Preferred Learning Style: auditory, verbal, visual General Comment: Pt pleasant and agreeable to PT session Subjective Precautions: Precautions Hearing/Visual Limitations: HAs Medical Precautions: Fall precautions, Cardiac precautions Date/Time Vitals Session Patient Position Pulse Resp SpO2 BP MAP (mmHg) 07/22/25 14:29:38 During PT -- 79 17 94 % 132/69 90 Objective Pain: Pain Assessment Pain Assessment: 0-10 0-10 (Numeric) Pain Score: 0 - No pain Cognition: Cognition Overall Cognitive Status: Impaired Orientation Level: Unable to assess (Pt unble to answer orientation questions appropriately) Insight: Moderate Impulsive: Moderately Coordination: Movements are Fluid and Coordinated: Yes Postural Control: Postural Control Postural Control: Within Functional Limits Static Sitting Balance Static Sitting-Balance Support: Feet supported, Bilateral upper extremity supported Static Sitting-Level of Assistance: Close supervision Static Sitting-Comment/Number of Minutes: 15 mins total Static Standing Balance Static Standing-Balance Support: Bilateral upper extremity supported Static Standing-Level of Assistance: Contact guard Static Standing-Comment/Number of Minutes: 30s X2 Extremity/Trunk Assessments: RLE RLE : Exceptions to WFL Strength RLE RLE Overall Strength: Greater than or equal to 3/5 as evidenced by functional mobility, Deficits, Due to cognitive deficits LLE LLE : Exceptions to WFL Strength LLE LLE Overall Strength: Greater than or equal to 3/5 as evidenced by functional mobility, Deficits, Due to cognitive deficits Activity Tolerance: Activity Tolerance Endurance: Tolerates 10 - 20 min exercise with multiple rests Early Mobility/Exercise Safety Screen: Proceed with mobilization - No exclusion criteria met Treatments: Therapeutic Activity Therapeutic Activity Performed: Yes Therapeutic Activity 1: Pt and family educated on supine-level exercises (APs, HS, SLR, hip abduction ROM, SAQ). Pt able to demonstrate a couple reps of each Bed Mobility Bed Mobility: Yes Bed Mobility 1 Bed Mobility 1: Supine to sitting Level of Assistance 1: Minimum assistance, Moderate verbal cues Bed Mobility Comments 1: HOB elevated, assist for trunk Bed Mobility 2 Bed Mobility 2: Sitting to supine Level of Assistance 2: Minimum assistance Bed Mobility Comments 2: Assist at RLE Bed Mobility 3 Bed Mobility 3: Scooting Level of Assistance 3: Contact guard, Moderate verbal cues Bed Mobility Comments 3: Assist at RLEs Ambulation/Gait Training Ambulation/Gait Training Performed: No (Due to pt feeling nauseous) Transfers Transfer: Yes Transfer 1 Transfer From 1: Bed to, Stand to Transfer to 1: Stand, Bed Technique 1: Sit to stand, Stand to sit Transfer Device 1: Walker Transfer Level of Assistance 1: Maximum assistance Trials/Comments 1: Bed slightly elevated Transfers 2 Transfer From 2: Bed to, Stand to Transfer to 2: Stand, Bed Technique 2: Sit to stand, Stand to sit Transfer Device 2: Walker Transfer Level of Assistance 2: Moderate assistance Trials/Comments 2: Bed slightly elevated Outcome Measures: [facility] Basic Mobility Turning from your back to your side while in a flat bed without using bedrails: A little Moving from lying on your back to sitting on the side of a flat bed without using bedrails: A little Moving to and from bed to chair (including a wheelchair): A lot Standing up from a chair using your arms (e.g. wheelchair or bedside chair): A lot To walk in hospital room: Total Climbing 3-5 steps with railing: Total Basic Mobility - Total Score: 12 Education Documentation Home Exercise Program, taught by Rian Dorado PT at 07/22/2025 3:15 PM. Learner: Family, Patient Readiness: Acceptance Method: Explanation, Demonstration Response: Verbalizes Understanding, Needs Reinforcement Comment: PT POC, LE strengthening Precautions, taught by Rian Dorado PT at 07/22/2025 3:15 PM. Learner: Family, Patient Readiness: Acceptance Method: Explanation, Demonstration Response: Verbalizes Understanding, Needs Reinforcement Comment: PT POC, LE strengthening Mobility Training, taught by Rian Dorado PT at 07/22/2025 3:15 PM. Learner: Family, Patient Readiness: Acceptance Method: Explanation, Demonstration Response: Verbalizes Understanding, Needs Reinforcement Comment: PT POC, LE strengthening Care Plan Goals: Encounter Problems Encounter Problems (Active) Balance Patient to demo static standing with unilateral UE support, performing single UE task with CGAx1, no sway or LOB x 2 mins for functional carryover (Progressing) Start: 07/14/25 Expected End: 07/28/25 Mobility STG - Patient will ambulate >/= 50 ft with CGAx1 and LRAD (Not Progressing) Start: 07/14/25 Expected End: 07/28/25 Pt. will tolerate >/= 10 minutes of OOB mobility without seated rest break and VSS to demo improved activity tolerance/endurance. (Progressing) Start: 07/14/25 Expected End: 07/28/25 Patient will actively participate in ther-ex in order to improve strength and to assist with the completion of functional mobility tasks. (Progressing) Start: 07/14/25 Expected End: 07/28/25 PT Transfers STG - Patient will perform bed mobility IND (Progressing) Start: 07/14/25 Expected End: 07/28/25 STG - Patient will transfer sit to and from stand with CGAx1 and LRAD (Progressing) Start: 07/14/25 Expected End: 07/28/25 Subjective Data: Seen and evaluated patient at bedside Patient awake and alert, laying in bed calmly. Calm; no agitation noted. No reports of agitation overnight, no PRN's needed. Spouse and daughter at bedside, anxious to get patient discharged to rehab facility Reports last BM was before procedure ~10 days ago Objective Data: Last Recorded Vitals: Vitals: 07/21/25200107/22/25 0040 07/22/25 0714 07/22/25 1112 BP: 158/75 105/66 (!) 164/108 123/67 BP Location: Left arm Left arm Patient Position: Lying Lying Pulse: 74 61 81 77 Resp: 18 18 17 Temp: 36.8 C (98.2 F) 36.6 C (97.9 F) 36.7 C (98.1 F) 36.3 C (97.3 F) TempSrc: Temporal Tympanic SpO2: 94% 99% 98% 95% Weight: Height: Last Labs: CBC - 07/22/2025: 6:27 AM 11.0 11.3 236 35.3 CMP - 07/22/2025: 6:27 AM 9.1 6.8 18 --- 0.7 3.2 3.8 12 91 PTT - No results in last year. 1.1 12.7 _ TROPHS Date/Time Value Ref Range Status 03/04/2025 02:12 PM 11 0 - 20 ng/L Final 03/04/2025 01:10 PM 13 0 - 20 ng/L Final 10/18/2024 03:57 PM 11 0 - 20 ng/L Final BNP Date/Time Value Ref Range Status 10/18/2024 03:57 PM 321 0 - 99 pg/mL Final HGBA1C Date/Time Value Ref Range Status 07/15/2025 06:34 AM 7.0 See comment % Final 03/09/2025 08:32 AM 6.6 <5.7 % Final Comment: For someone without known diabetes, a hemoglobin A1c value of 6.5% or greater indicates that they may have diabetes and this should be confirmed with a follow-up test. For someone with known diabetes, a value <7% indicates that their diabetes is well controlled and a value greater than or equal to 7% indicates suboptimal control. A1c targets should be individualized based on duration of diabetes, age, comorbid conditions, and other considerations. Currently, no consensus exists regarding use of hemoglobin A1c for diagnosis of diabetes for children. 09/05/2024 07:38 AM 7.2 See comment % Final LDLCALC Date/Time Value Ref Range Status 07/15/2025 06:34 AM 76 <=99 mg/dL Final Comment: Near Borderline AGE Desirable Optimal High High Very High 0-19 Y 0 - 109 --- 110-129 >/= 130 ---- 20-24 Y 0 - 119 --- 120-159 >/= 160 ---- >24 Y 0 - 99 100-129 130-159 160-189 >/=190 LDL Cholesterol is calculated using the Friedewald equation. 09/26/2024 07:54 AM 42 <=99 mg/dL Final Comment: Near Borderline AGE Desirable Optimal High High Very High 0-19 Y 0 - 109 --- 110-129 >/= 130 ---- 20-24 Y 0 - 119 --- 120-159 >/= 160 ---- >24 Y 0 - 99 100-129 130-159 160-189 >/=190 VLDL Date/Time Value Ref Range Status 07/15/2025 06:34 AM 31 0 - 40 mg/dL Final 09/26/2024 07:54 AM 60 0 - 40 mg/dL Final 03/29/2022 07:54 AM SEE COMMENT 0 - 40 mg/dL Final Comment: Unable to calculate VLDL. 03/29/2020 08:37 AM SEE COMMENT 0 - 40 mg/dL Final Comment: Unable to calculate VLDL. Last I/O: I/O last 3 completed shifts: In: - (0 mL/kg) Out: 975 (9.6 mL/kg) [Urine:975 (0.3 mL/kg/hr)] Weight: 101.8 kg Echo:Ejection Fractions: EF Date/Time Value Ref Range Status 07/14/2025 03:18 PM 62 % 10/20/2024 07:19 AM 67 % Inpatient Medications: Scheduled Medications[1] PRN Medications[2] Continuous Medications[3] Physical Exam: General: awake and alert, NAD, lying in bed Skin: warm and dry Head/ neck: no JVD seen at 90 degrees Cardiac: RRR, S1, S2 Pulm: CTAB, room air GI: soft, nontender Extremities: no LE edema Neuro: expressive aphasia, follows some commands Psych: agitated at times Assessment/Plan Kitty Vergara is a 85 y.o. male with a PMH of BPH, GERD, CKD stage 4, DMII hgAIc 6.6, CAD s/p LHC/RHC with PCI- 01/19/25, on Plavix and ASA 81mg, bardycardia, and severe non-rheumatic aortic stenosis. Pt presented on 07/13/2025 for elective TAVR. Overnight on 07/14/25 BAT called for abnormal speech and AMS concerning for stroke. Transferred to [facility] service for management. TAVR 07/14 - TTE 07/14 EF 62%. normal aortic valve prosthesis structure and function. No WMA. Compared with study dated 07/13/2025, the patient is now s/p 34 mm Evolut Fx+ TAVR with reduction in aortic gradients. - CXR 07/14 Mild pulmonary vascular congestion compared to the previous study. - 07/15 Home bumex dose is 0.5, increased to 1mg on 07/13. Lowered back to 0.5 since he had confusion and taking less PO intake today. - Single antiplatelet for life is recommended post tavr but given with pt h xof PCI 01/19/25 pt will need ASA and Plavix until next year 01/19/26 Acute Stroke 07/14 - expressive and receptive aphasia - CT head and CTA head/neck which did not demonstrate any new stroke or any large vessel occlusion. - Carodis with Left greater than right with stenosis of the distal left common carotid artery measuring up to approximately 60-65%. Nonspecific white matter changes most likely represent small-vessel ischemic disease in a patient of this age. No evidence of acute cortical infarct, mass effect, or ICH. There are areas of encephalomalacia in the cerebellum which could reflect remote infarcts. - MRI brain 07/14 scattered areas of acute to early subacute infarction within the cerebral hemispheres bilaterally left greater than right as well as within the left cerebellar hemisphere as described above. The dominant area of acute to early subacute infarction is identified within the left temporoparietal region. The above findings are superimposed upon moderate brain parenchymal volume loss. There are scattered as well as more patchy and confluent nonspecific white matter changes again noted within cerebral hemispheres bilaterally as well as ill-defined increased signal on the FLAIR and T2 images overlying the brainstem which while nonspecific, given the patient's age, likely represent sequelae of more remote small-vessel ischemic change. Additional small foci of bright signal on the T2 images are identified within the subinsular regions, basal ganglia, and thalami bilaterally suggesting incidental mildly prominent perivascular spaces and/or scattered more remote lacunar infarctions.Scattered areas of encephalomalacia are identified within the cerebellum as well as along the posterior right occipital lobe. - Neuro consulted, no objection to DAPT, defer to primary. Follow up stroke clinic (requested), continue speech therapy. Signed off - PT/OT - 07/15 Combative, required haldol. - 07/16 Psych consulted for agitation mgmt - Hx fall day of TAVR, slipped off chair in kitchen and landed on buttocks. No trauma. -07/17--Transferred to [facility] per Psychiatry for goal to liberate patient from sitter/restraints (Will remain primary w/ co-management ) - 07/20 refusing to take meds today but was able to finally accept DAPT. - 07/21 agitation overnight, no med changes per psych, speech therapy completed swallow eval, no discussion on aphagia and assist on communication aid which may help agitation, message sent to [employer]. - 07/22 no agitation noted. PT/OT/[employer] to see patient again today. Needs to have BM; will try suppository. Otherwise, medically ready for discharge. Facility to accept tomorrow if patient remains calm/cooperative. Holter monitor on discharge. CKD Stage 4 - Cr today 2.26 (2.24, 2.52, 2.53) - Baseline 2-2.2 - 07/15 Reduce bumex back to home dose of 0.5 - 07/21 For sake of patient agitation, will check labs Q48 hours CAD HLP - s/p PCI to prox-mid LAD using [address] Jessie Fay - Single antiplatelet for life is recommended post tavr but given with pt h xof PCI 01/19/25 pt will need ASA and Plavix until next year 01/19/26 - lipid panel ordered per neuro request ->HDL 35.4, LDL 76,Trigs 154 - Allergy to statin, continue zetia HTN - SBP improved today - Blood pressure goals: avoid hypotension SBP <100 that could worsen cerebral perfusion, permissive HTN - Continue amlodipine 2.5mg daily-07/18 Increased to 5 mg - 07/21 increase amlodipine to 10mg daily DM - HgbA1C 6.6 02/2025 - (7.0) rechecked HgbA1C per neuro request - Lantus 10u+SS - 07/19 persistent hyperglycemia- increased Glargine from 10 to 14 units nightly (home dose 19 units nightly) - 07/20 increased SS to #3. - 07/21 increase glargine to 16u Urinary Retention BPH - Hx ureteroscopy, cysto with retrograde pyelogram and bladder lesion ablation 10/28/24. Cysto showed severe bladder trabeculation, no mass. Prostate enlargement. - Hx requiring de oliveira for 2 months, was on flomax and proscar - Hx cystoscopy showed severe bladder trabeculation, no mass, prostate enlargement S/P Endoscopic Anatomical Prostate Enucleation ~ HoLEP 03/30/25 with improvement in emptying - 07/15 Patient wants to urinate out of bed, for safety reasons kept in bed, unable to follow command to urinate in urinal. Became agitated. straight cath Q shift PRN urine >400 on bladder scan - 07/16 De Oliveira placed for continued need of straight cath (rec only 1/2 inflating balloon to decrease risk of potential injury . - 07/17-Good UO via de oliveira. Started Flomax 0.4 mg daily DVT ppx:heparin subcutaneous DISPO: Family chose SNF in [place]. Facility wants to movitor patient another 24 hours prior to accepting. Back up options are being considered as well. Psychiatry ok for DC. Awaiting precert. - Holter monitor on discharge Code Status: Full Code All labs, vital signs, tests & imaging results, and medications were reviewed. Seen and discussed with Dr. Gabriel Jaramillo MINE ENGINEERING SUPERVISOR [1] Scheduled medications Medication Dose Route Frequency amLODIPine 10 mg oral Daily aspirin 81 mg oral Daily bisacodyl 5 mg oral Nightly bisacodyl 10 mg rectal Once bumetanide 0.5 mg oral Daily clopidogrel 75 mg oral Daily ezetimibe 10 mg oral Daily gabapentin 300 mg oral BID heparin (porcine) 5,000 Units subcutaneous q8h insulin glargine 16 Units subcutaneous Nightly insulin lispro 0-15 Units subcutaneous TID AC OLANZapine 5 mg oral Nightly pantoprazole 40 mg oral Daily before breakfast Or pantoprazole 40 mg intravenous Daily before breakfast perflutren lipid microspheres 0.5-10 mL of dilution intravenous Once in imaging polyethylene glycol 17 g oral Once sennosides-docusate sodium 1 tablet oral BID tamsulosin 0.4 mg oral Daily [2] PRN medications Medication acetaminophen Or acetaminophen Or acetaminophen benzocaine-menthol dextrose dextrose glucagon glucagon lidocaine-epinephrine melatonin OLANZapine ondansetron Or ondansetron oxygen phenoL prochlorperazine Or prochlorperazine Or prochlorperazine traMADol [3] Continuous Medications Medication Dose Last Rate Cosigned by Kapil Rios MD at 07/22/2025 3:19 PM EDT Associated attestation - Kapil Rios MD - 07/22/2025 3:19 PM EDT This is a shared visit. I have reviewed the Advanced Practice Provider's encounter note, approve the Advanced Practice Provider's documentation, and provide the following additional information from my personal encounter. Occupational Therapy OT Treatment Patient Name: Kitty Allen Department: [facility] 40 Room: [facility]402-A Today's Date: 07/22/2025 Time Calculation Start Time: 1310 Stop Time: 1330 Time Calculation (min): 20 min Assessment: OT Assessment: Patient requires Mod A x 2 with FWW for sit <-> stand with mod verbal and tactile cueing for safety/hand placement. He demonstrated decreased direction following by following 50% of simple directions with max cueing. He demonstrated increased participation when instructions given by family. Patient to benefit from continued OT services to increase independence with ADLs/transfers Prognosis: Good Barriers to Discharge Home: Physical needs, Cognition needs, Caregiver assistance Caregiver Assistance: Caregiver assistance needed per identified barriers - however, level of patient's required assistance exceeds assistance available at home Cognition Needs: 24hr supervision for safety awareness needed, Medication and/or medical management daily assist needed, Insight of patient limited regarding functional ability/needs, Cognition-related high falls risk Physical Needs: 24hr mobility assistance needed, 24hr ADL assistance needed, High falls risk due to function or environment Evaluation/Treatment Tolerance: Treatment limited secondary to agitation Medical Staff Made Aware: Yes End of Session Communication: Bedside nurse End of Session Patient Position: Bed, 3 rail up, Alarm on (family present) OT Assessment Results: Decreased ADL status, Decreased safe judgment during ADL, Decreased cognition, Decreased endurance, Decreased functional mobility, Decreased IADLs Prognosis: Good Evaluation/Treatment Tolerance: Treatment limited secondary to agitation Medical Staff Made Aware: Yes Strengths: Support and attitude of living partners Barriers to Participation: Comorbidities Plan: Treatment Interventions: ADL retraining, Functional transfer training, Endurance training, Cognitive reorientation, Patient/family training, Compensatory technique education OT Frequency for Current Admission: 4 times per week during this acute inpatient hospitalization OT Discharge Recommendations: High intensity level of continued care Equipment Recommended upon Discharge: (TBD for AE/DME) OT Recommended Transfer Status: Moderate assist, Assist of 2 OT - OK to Discharge: Yes (when medically cleared) Treatment Interventions: ADL retraining, Functional transfer training, Endurance training, Cognitive reorientation, Patient/family training, Compensatory technique education Subjective OT Visit Info: OT Received On: 07/22/25 General Visit Info: General Reason for Referral: 85 year old male who presented for elective TAVR on 07/13. Post op course c/b significant aphasia resulting in BAT. NIHSS 11. CTH: old L caudate hypodensity and R temporal hypodensity. CTA H/N with patent anterior and posterior circulations. OOW TNK. Suspect etiology of symptoms either recrudesce of old stroke vs new ischemic infarct 2/2 cardio embolic origin Past Medical History Relevant to Rehab: BPH, GERD, CKD stage 4, DMII hgAIc 6.6, CAD s/p LHC/RHC with PCI- 01/19/25, on Plavix and ASA 81mg, bardycardia, and severe non-rheumatic aortic stenosis. Family/Caregiver Present: Yes Caregiver Feedback: and daughter in law present and supportive during session Prior to Session Communication: Bedside nurse Patient Position Received: Bed, 3 rail up, Alarm on Preferred Learning Style: auditory, verbal, visual General Comment: Patient supine in bed upon arrival. Max encouragement to participate. He demonstrated increased direction following and cooperation when instructions given by /daughter in law Precautions: Hearing/Visual Limitations: Donned B hearing aides during session Medical Precautions: Fall precautions, Cardiac precautions Date/Time Vitals Session Patient Position Pulse Resp SpO2 BP MAP (mmHg) 07/22/25 15:29:34 -- -- 75 16 96 % 143/64 90 Pain: Pain Assessment Pain Assessment: 0-10 0-10 (Numeric) Pain Score: 0 - No pain (Did not report or indicate pain this session) Objective Cognition: Cognition Overall Cognitive Status: Impaired Orientation Level: Unable to assess (Patient responding with repeated answer to questions, such as "I can.") Following Commands: Follows one step commands with repetition (approximately 50% of simple directions with encouragment and repetition from OT and family) Cognition Comments: Patient with expressive apahasia. Repeating short phrases throughout session. Safety/Judgement: (mod verbal and [place] assistance for hand placement during bed mobility and transfer) Insight: Severe Impulsive: Moderately Coordination: Movements are Fluid and Coordinated: Yes Activities of Daily Living: UE Dressing UE Dressing Level of Assistance: Maximum assistance UE Dressing Where Assessed: Edge of bed UE Dressing Comments: assistance to initiate donning robe with min verbal cues for sequencing. Patient able to assist with threading L UE into sleeve LE Dressing LE Dressing: (When requested to doff sock, patient adjusted tops of B socks with SBA for balance) Bed Mobility/Transfers: Bed Mobility Bed Mobility: Yes Bed Mobility 1 Bed Mobility 1: Supine to sitting Level of Assistance 1: Moderate assistance, Moderate verbal cues, Moderate tactile cues Bed Mobility Comments 1: HOB elevated. Patient able to advance LEs with significant cues. [place] assistance to place L hand on bedrail. Assistance to manage trunk to upright position and scoot hips towards EOB Bed Mobility 2 Bed Mobility 2: Sitting to supine Level of Assistance 2: Moderate assistance, +2, Moderate verbal cues Bed Mobility Comments 2: Demonstrated increased agitation but was agreeable to complete with instructions given by Bed Mobility 3 Bed Mobility 3: Scooting Level of Assistance 3: Contact guard, Moderate verbal cues Bed Mobility Comments 3: Assistance at R LE Transfers Transfer: Yes Transfer 1 Transfer From 1: Bed to Transfer to 1: Stand Technique 1: Sit to stand Transfer Device 1: Walker Transfer Level of Assistance 1: Moderate assistance, +2, Moderate verbal cues, Moderate tactile cues Trials/Comments 1: bed height raised. Mod A x2 for upright posture. Mod verbal and tactile cues for upright positioning. Demonstrating increased agitation with continued requests for activities. Transfers 2 Transfer From 2: Stand to Transfer to 2: Sit Technique 2: Stand to sit Transfer Device 2: Walker Transfer Level of Assistance 2: Moderate assistance, Minimal verbal cues Trials/Comments 2: bed height elevated. Min verbal cues for safety. Demonstrating increased agitation with continued requests for activities Functional Mobility: Functional Mobility Functional Mobility Performed: Yes Functional Mobility 1 Surface 1: Level tile Device 1: Rolling walker Assistance 1: Moderate assistance, Moderate verbal cues (x2) Comments 1: Mod A x 2 with FWW for three lateral steps to R side towards HOB. Mod verbal cues for sequencing and hand placement Sitting Balance: Static Sitting Balance Static Sitting-Balance Support: Feet supported, Bilateral upper extremity supported Static Sitting-Level of Assistance: Close supervision Dynamic Sitting Balance Dynamic Sitting-Balance Support: Feet supported, No upper extremity supported Dynamic Sitting-Level of Assistance: Contact guard RUE RUE : Within Functional Limits (to complete functional activities this session) and LUE LUE: Within Functional Limits (to complete functional activities this session) Outcome Measures:[facility] Daily Activity Putting on and taking off regular lower body clothing: A lot Bathing (including washing, rinsing, drying): A lot Putting on and taking off regular upper body clothing: A lot Toileting, which includes using toilet, bedpan or urinal: A lot Taking care of personal grooming such as brushing teeth: A little Eating Meals: A little Daily Activity - Total Score: 14 OT Adult Other Outcome Measures 4AT: 8 Care Plan Goals: Encounter Problems Encounter Problems (Active) ADLs Pt will don/doff all UB clothing with supervision and prn AE to promote independence in BADLs. (Progressing) Start: 07/14/25 Expected End: 07/28/25 Pt will don/doff all LB clothing with min A and prn AE to promote independence in BADLs. (Progressing) Start: 07/14/25 Expected End: 07/28/25 Pt will complete daily grooming tasks (e.g. brush teeth, wash face, shave, etc.) with supervision and min vcs to promote safety and independence in ADL tasks. (Progressing) Start: 07/14/25 Expected End: 07/28/25 Pt will complete toileting including clothing management and hygiene with min A and prn AE to promote independence with basic self care tasks. (Progressing) Start: 07/14/25 Expected End: 07/28/25 BALANCE Patient will maintain static standing balance during ADL task with stand by assist in order to demonstrate decreased risk of falling and improved postural control. (Progressing) Start: 07/14/25 Expected End: 07/28/25 COGNITION/SAFETY Patient will follow 75% of one step commands to allow improved ADL performance. (Progressing) Start: 07/14/25 Expected End: 07/28/25 Patient will demonstrated orientation x 4 with min verbal cues. (Progressing) Start: 07/14/25 Expected End: 07/28/25 ORIENTATION MOBILITY Patient will perform Functional mobility min Household distances/Community Distances with minimal assist and least restrictive device in order to improve safety and functional mobility. (Progressing) Start: 07/14/25 Expected End: 07/28/25 TRANSFERS Patient will perform bed mobility minimal assist level of assistance in order to improve safety and independence with mobility (Progressing) Start: 07/14/25 Expected End: 07/28/25 Patient will complete sit to stand transfer with minimal assist level of assistance and least restrictive device in order to improve safety and prepare for out of bed mobility. (Progressing) Start: 07/14/25 Expected End: 07/28/25 Cosigned by Alejandra Sampson OT at 07/22/2025 5:48 PM EDT [facility] Shared Cardiology Progress Note Mr. 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 He has a history of HTN, HLD, DM2, CKD4, CAD s/p PCI 01/19/25, severe , gout, OA, obesity, BPH. Admitted 07/13/25 post TAVR. Develop aphasia evening 07/13 post-procedure. BAT called. CT/CTA 07/14 without LVO or ICH. MRI brain showed acute to subacute embolic infarcts L>M hemispheres and left cerebellum consistent with nola-procedural cardioembolism. Course complicated by agitation and delirium requiring antipsychotics and De Oliveira for urinary retention. Transferred 07/17 to [facility] for co-management with psychiatry to facilitate restraint/sitter wean and behavioral stabilization; patient continues to experience delirium but is now off-sitter and is doing better today. Pending discharge based on bed availability at facility. Gen: intermittently confused HEENT: normocephalic. Trachea midline CV: RRR. Soft systolic murmur, no gallops, rubs Pulm: clear to auscultation bilaterally. No coarse lung sounds Abd: soft, non-distended. Normal active bowel sounds Ext: warm and well-perfused Psych: appropriate affect Plan -Dispo planning: pending facility placement -Will need [employer] monitor on discharge -Delirium precautions: labs q48h. Qshift vitals. Appreciate Psych recs -Speech evaluation and assessment -Continue to monitor on tele -PT/OT Objective Data: Last Recorded Vitals: Vitals: 07/21/25200107/22/25 0040 07/22/25 0714 07/22/25 1112 BP: 158/75 105/66 (!) 164/108 123/67 BP Location: Left arm Left arm Patient Position: Lying Lying Pulse: 74 61 81 77 Resp: 18 18 17 Temp: 36.8 C (98.2 F) 36.6 C (97.9 F) 36.7 C (98.1 F) 36.3 C (97.3 F) TempSrc: Temporal Tympanic SpO2: 94% 99% 98% 95% Weight: Height: Last Labs: CBC - 07/22/2025: 6:27 AM 11.0 11.3 236 35.3 CMP - 07/22/2025: 6:27 AM 9.1 6.8 18 --- 0.7 3.2 3.8 12 91 PTT - No results in last year. 1.1 12.7 _ TROPHS Date/Time Value Ref Range Status 03/04/2025 02:12 PM 11 0 - 20 ng/L Final 03/04/2025 01:10 PM 13 0 - 20 ng/L Final 10/18/2024 03:57 PM 11 0 - 20 ng/L Final BNP Date/Time Value Ref Range Status 10/18/2024 03:57 PM 321 0 - 99 pg/mL Final HGBA1C Date/Time Value Ref Range Status 07/15/2025 06:34 AM 7.0 See comment % Final 03/09/2025 08:32 AM 6.6 <5.7 % Final Comment: For someone without known diabetes, a hemoglobin A1c value of 6.5% or greater indicates that they may have diabetes and this should be confirmed with a follow-up test. For someone with known diabetes, a value <7% indicates that their diabetes is well controlled and a value greater than or equal to 7% indicates suboptimal control. A1c targets should be individualized based on duration of diabetes, age, comorbid conditions, and other considerations. Currently, no consensus exists regarding use of hemoglobin A1c for diagnosis of diabetes for children. 09/05/2024 07:38 AM 7.2 See comment % Final LDLCALC Date/Time Value Ref Range Status 07/15/2025 06:34 AM 76 <=99 mg/dL Final Comment: Near Borderline AGE Desirable Optimal High High Very High 0-19 Y 0 - 109 --- 110-129 >/= 130 ---- 20-24 Y 0 - 119 --- 120-159 >/= 160 ---- >24 Y 0 - 99 100-129 130-159 160-189 >/=190 LDL Cholesterol is calculated using the Friedewald equation. 09/26/2024 07:54 AM 42 <=99 mg/dL Final Comment: Near Borderline AGE Desirable Optimal High High Very High 0-19 Y 0 - 109 --- 110-129 >/= 130 ---- 20-24 Y 0 - 119 --- 120-159 >/= 160 ---- >24 Y 0 - 99 100-129 130-159 160-189 >/=190 VLDL Date/Time Value Ref Range Status 07/15/2025 06:34 AM 31 0 - 40 mg/dL Final 09/26/2024 07:54 AM 60 0 - 40 mg/dL Final 03/29/2022 07:54 AM SEE COMMENT 0 - 40 mg/dL Final Comment: Unable to calculate VLDL. 03/29/2020 08:37 AM SEE COMMENT 0 - 40 mg/dL Final Comment: Unable to calculate VLDL. Last I/O: I/O last 3 completed shifts: In: - (0 mL/kg) Out: 975 (9.6 mL/kg) [Urine:975 (0.3 mL/kg/hr)] Weight: 101.8 kg Past Cardiology Tests (Last 3 Years): EKG: ECG 12 lead daily 07/15/2025 (Preliminary) Echo: Transthoracic Echo (TTE) Limited 07/14/2025 Ejection Fractions: EF Date/Time Value Ref Range Status 07/14/2025 03:18 PM 62 % 10/20/2024 07:19 AM 67 % Cath: Cardiac Catheterization Procedure 07/13/2025 Cardiac Catheterization Procedure 01/19/2025 Stress Test: No results found for this or any previous visit from the past 1095 days. Cardiac Imaging: No results found for this or any previous visit from the past 1095 days. Inpatient Medications: Scheduled Medications[1] PRN Medications[2] Continuous Medications[3] Urethral Catheter (Active) Site Assessment Skin intact;Clean 07/22/25 1158 Number of days: 6 Code Status: Full Code Kapil Rios MD [1] Scheduled medications Medication Dose Route Frequency amLODIPine 10 mg oral Daily aspirin 81 mg oral Daily bisacodyl 5 mg oral Nightly bisacodyl 10 mg rectal Once bumetanide 0.5 mg oral Daily clopidogrel 75 mg oral Daily ezetimibe 10 mg oral Daily gabapentin 300 mg oral BID heparin (porcine) 5,000 Units subcutaneous q8h insulin glargine 16 Units subcutaneous Nightly insulin lispro 0-15 Units subcutaneous TID AC OLANZapine 5 mg oral Nightly pantoprazole 40 mg oral Daily before breakfast Or pantoprazole 40 mg intravenous Daily before breakfast perflutren lipid microspheres 0.5-10 mL of dilution intravenous Once in imaging polyethylene glycol 17 g oral Once sennosides-docusate sodium 1 tablet oral BID tamsulosin 0.4 mg oral Daily [2] PRN medications Medication acetaminophen Or acetaminophen Or acetaminophen benzocaine-menthol dextrose dextrose glucagon glucagon lidocaine-epinephrine melatonin OLANZapine ondansetron Or ondansetron oxygen phenoL prochlorperazine Or prochlorperazine Or prochlorperazine traMADol [3] Continuous Medications Medication Dose Last Rate Social Work Note: 07/22/25 1041 Rapid Rounds Attendance Provider;Care Transitions;Nurse Expected Discharge Disposition Rehab Today we still await: Placement process Review at Escalation Rounds No escalation needed [employer] called [facility] intake today to discuss patient. [employer] was told that patient needs to be 48-72 hours free of a sitter, restraints or IM zyprexa. [employer] was told that patient was not officially accepted at this time. [employer] sent updates. [employer]IC will call back again [facility] to see if they accepted patient. Patient is medically ready and will need a precert. Update 12:18pm [employer] called spoke with patient's family. Family reported that they wanted an update about discharge. [employer]IC explained that [facility] hasn't accepted yet. Family asked about other options if they cannot accept. [employer]IC spoke with them about SNF. [employer] provided the family with a SNF list to review as a backup. LARA called [facility] again and the rep reported that the MD wants to make sure that the patient is fine tonight and they lali review after updates tomorrow. [employer] also called [facility] which also had a referral sent to them. [employer] left a message to ask if they could accept. [employer]IC asked PT/OT to see the patient today. [employer] received a phone call from [facility] who reported that they are reviewing and will get back to me. [employer] received a phone call from patient's daughter who reported that they reviewed SNF lsit and picked [facility] as a backup. [employer]CH[employer]IC sent the referral. LARA will continue to follow MINERVA Hyde, DENIS Subjective Data: Patient sleeping in bed, states he was agitated from 12-4am. Confirmed with RN, patient was willing to take meds. Objective Data: Last Recorded Vitals: Vitals: 07/20/25 2007 07/20/25 2342 07/21/25 0257 07/21/25 0735 BP: 166/72 145/71 127/79 142/63 BP Location: Right arm Right arm Patient Position: Lying Lying Pulse: 69 73 86 Resp: 16 16 16 Temp: 36.6 C (97.9 F) 36.6 C (97.9 F) 36.7 C (98.1 F) 37.2 C (99 F) TempSrc: Temporal Temporal SpO2: 99% 94% 97% 99% Weight: Height: Last Labs: CBC - 07/20/2025: 6:38 AM 9.6 11.5 209 36.5 CMP - 07/20/2025: 6:38 AM 9.0 6.8 18 --- 0.7 3.2 3.8 12 91 PTT - No results in last year. 1.1 12.7 _ TROPHS Date/Time Value Ref Range Status 03/04/2025 02:12 PM 11 0 - 20 ng/L Final 03/04/2025 01:10 PM 13 0 - 20 ng/L Final 10/18/2024 03:57 PM 11 0 - 20 ng/L Final BNP Date/Time Value Ref Range Status 10/18/2024 03:57 PM 321 0 - 99 pg/mL Final HGBA1C Date/Time Value Ref Range Status 07/15/2025 06:34 AM 7.0 See comment % Final 03/09/2025 08:32 AM 6.6 <5.7 % Final Comment: For someone without known diabetes, a hemoglobin A1c value of 6.5% or greater indicates that they may have diabetes and this should be confirmed with a follow-up test. For someone with known diabetes, a value <7% indicates that their diabetes is well controlled and a value greater than or equal to 7% indicates suboptimal control. A1c targets should be individualized based on duration of diabetes, age, comorbid conditions, and other considerations. Currently, no consensus exists regarding use of hemoglobin A1c for diagnosis of diabetes for children. 09/05/2024 07:38 AM 7.2 See comment % Final LDLCALC Date/Time Value Ref Range Status 07/15/2025 06:34 AM 76 <=99 mg/dL Final Comment: Near Borderline AGE Desirable Optimal High High Very High 0-19 Y 0 - 109 --- 110-129 >/= 130 ---- 20-24 Y 0 - 119 --- 120-159 >/= 160 ---- >24 Y 0 - 99 100-129 130-159 160-189 >/=190 LDL Cholesterol is calculated using the Friedewald equation. 09/26/2024 07:54 AM 42 <=99 mg/dL Final Comment: Near Borderline AGE Desirable Optimal High High Very High 0-19 Y 0 - 109 --- 110-129 >/= 130 ---- 20-24 Y 0 - 119 --- 120-159 >/= 160 ---- >24 Y 0 - 99 100-129 130-159 160-189 >/=190 VLDL Date/Time Value Ref Range Status 07/15/2025 06:34 AM 31 0 - 40 mg/dL Final 09/26/2024 07:54 AM 60 0 - 40 mg/dL Final 03/29/2022 07:54 AM SEE COMMENT 0 - 40 mg/dL Final Comment: Unable to calculate VLDL. 03/29/2020 08:37 AM SEE COMMENT 0 - 40 mg/dL Final Comment: Unable to calculate VLDL. Last I/O: I/O last 3 completed shifts: In: 390 (3.8 mL/kg) [P.O.:390] Out: 1775 (17.4 mL/kg) [Urine:1775 (0.5 mL/kg/hr)] Weight: 101.8 kg Past Cardiology Tests (Last 3 Years): EKG: ECG 12 lead daily 07/14/2025 (Preliminary) ECG 12 lead daily 07/13/2025 (Preliminary) ECG 12 lead 07/13/2025 ECG 12 Lead 03/05/2025 ECG 12 lead 03/04/2025 ECG 12 lead 03/04/2025 ECG 12 lead STAT 01/19/2025 Electrocardiogram 12 Lead 01/19/2025 ECG 12 lead (Clinic Performed) 12/08/2024 ECG 12 lead ECG 12 lead 05/29/2024 Echo: Transthoracic Echo (TTE) Limited 07/14/2025 Transthoracic Echo (TTE) Limited 07/13/2025 Transthoracic Echo (TTE) Complete 10/20/2024 Ejection Fractions: EF Date/Time Value Ref Range Status 07/14/2025 03:18 PM 62 % 10/20/2024 07:19 AM 67 % Cath: Cardiac Catheterization Procedure 07/13/2025 Cardiac Catheterization Procedure 01/19/2025 Stress Test: No results found for this or any previous visit from the past 1095 days. Cardiac Imaging: No results found for this or any previous visit from the past 1095 days. Inpatient Medications: Scheduled Medications[1] PRN Medications[2] Continuous Medications[3] Physical Exam: General: NAD, lying in bed Skin: warm and dry Head/ neck: no JVD seen at 90 degrees Cardiac: RRR, S1, S2 Pulm: CTAB, room air GI: soft, nontender Extremities: no LE edema Neuro: expressive aphasia, follows some commands Psych: agitated at times Assessment/Plan Kitty Vergara is a 85 y.o. male with a PMH of BPH, GERD, CKD stage 4, DMII hgAIc 6.6, CAD s/p LHC/RHC with PCI- 01/19/25, on Plavix and ASA 81mg, bardycardia, and severe non-rheumatic aortic stenosis. Pt presented on 07/13/2025 for elective TAVR. Overnight on 07/14/25 BAT called for abnormal speech and AMS concerning for stroke. Transferred to I service for management. TAVR 07/14 - TTE 07/14 EF 62%. normal aortic valve prosthesis structure and function. No WMA. Compared with study dated 07/13/2025, the patient is now s/p 34 mm Evolut Fx+ TAVR with reduction in aortic gradients. - CXR 07/14 Mild pulmonary vascular congestion compared to the previous study. - 07/15 Home bumex dose is 0.5, increased to 1mg on 07/13. Lowered back to 0.5 since he had confusion and taking less PO intake today. - Single antiplatelet for life is recommended post tavr but given with pt h xof PCI 01/19/25 pt will need ASA and Plavix until next year 01/19/26 Acute Stroke 07/14 - expressive and receptive aphasia - CT head and CTA head/neck which did not demonstrate any new stroke or any large vessel occlusion. - Carodis with Left greater than right with stenosis of the distal left common carotid artery measuring up to approximately 60-65%. Nonspecific white matter changes most likely represent small-vessel ischemic disease in a patient of this age. No evidence of acute cortical infarct, mass effect, or ICH. There are areas of encephalomalacia in the cerebellum which could reflect remote infarcts. - MRI brain 07/14 scattered areas of acute to early subacute infarction within the cerebral hemispheres bilaterally left greater than right as well as within the left cerebellar hemisphere as described above. The dominant area of acute to early subacute infarction is identified within the left temporoparietal region. The above findings are superimposed upon moderate brain parenchymal volume loss. There are scattered as well as more patchy and confluent nonspecific white matter changes again noted within cerebral hemispheres bilaterally as well as ill-defined increased signal on the FLAIR and T2 images overlying the brainstem which while nonspecific, given the patient's age, likely represent sequelae of more remote small-vessel ischemic change. Additional small foci of bright signal on the T2 images are identified within the subinsular regions, basal ganglia, and thalami bilaterally suggesting incidental mildly prominent perivascular spaces and/or scattered more remote lacunar infarctions.Scattered areas of encephalomalacia are identified within the cerebellum as well as along the posterior right occipital lobe. - Neuro consulted, no objection to DAPT, defer to primary. Follow up stroke clinic (requested), continue speech therapy. Signed off - PT/OT - 07/15 Combative, required haldol. - 07/16 Psych consulted for agitation mgmt - Hx fall day of TAVR, slipped off chair in kitchen and landed on buttocks. No trauma. -07/17--Transferred to [facility] per Psychiatry for goal to liberate patient from sitter/restraints (Will remain primary w/ co-management ) - 07/20 refusing to take meds today but was able to finally accept DAPT. - 07/21 agitation overnight, no med changes per psych, speech therapy completed swallow eval, no discussion on aphagia and assist on communication aid which may help agitation, message sent to ROOF PLUMBER. CKD Stage 4 - Cr today 2.26 (2.24, 2.52, 2.53) - Baseline 2-2.2 - 07/15 Reduce bumex back to home dose of 0.5 - 07/21 For sake of patient agitation, will check labs Q48 hours CAD HLP - s/p PCI to prox-mid LAD using [address] Jessie Fay - Single antiplatelet for life is recommended post tavr but given with pt h xof PCI 01/19/25 pt will need ASA and Plavix until next year 01/19/26 - lipid panel ordered per neuro request ->HDL 35.4, LDL 76,Trigs 154 - Allergy to statin, continue zetia HTN - Pt with SBP wolf 144-167 - Blood pressure goals: avoid hypotension SBP <100 that could worsen cerebral perfusion, permissive HTN - Continue amlodipine 2.5mg daily-07/18 Increased to 5 mg - 07/21 increase amlodipine to 10mg daily DM - HgbA1C 6.6 02/2025 - (7.0) rechecked HgbA1C per neuro request - Lantus 10u+SS - 07/19 persistent hyperglycemia- increased Glargine from 10 to 14 units nightly (home dose 19 units nightly) - 07/20 increased SS to #3. - 07/21 increase glargine to 16u Urinary Retention BPH - Hx ureteroscopy, cysto with retrograde pyelogram and bladder lesion ablation 10/28/24. Cysto showed severe bladder trabeculation, no mass. Prostate enlargement. - Hx requiring de oliveira for 2 months, was on flomax and proscar - Hx cystoscopy showed severe bladder trabeculation, no mass, prostate enlargement S/P Endoscopic Anatomical Prostate Enucleation ~ HoLEP 03/30/25 with improvement in emptying - 07/15 Patient wants to urinate out of bed, for safety reasons kept in bed, unable to follow command to urinate in urinal. Became agitated. straight cath Q shift PRN urine >400 on bladder scan - 07/16 De Oliveira placed for continued need of straight cath (rec only 1/2 inflating balloon to decrease risk of potential injury . - 07/17-Good UO via de oliveira. Started Flomax 0.4 mg daily DVT ppx:heparin subcutaneous DISPO: PT/OT and speech & PMR eval->rec SNF w/ goal to [place]. Family chose SNF in [place]. Psychiatry ok for DC. Awaiting precert. Code Status: Full Code All labs, vital signs, tests & imaging results, and medications were reviewed. Seen and discussed with Dr. 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 [1] Scheduled medications Medication Dose Route Frequency amLODIPine 10 mg oral Daily aspirin 81 mg oral Daily bisacodyl 5 mg oral Nightly bumetanide 0.5 mg oral Daily clopidogrel 75 mg oral Daily docusate sodium 100 mg oral BID ezetimibe 10 mg oral Daily gabapentin 300 mg oral BID heparin (porcine) 5,000 Units subcutaneous q8h insulin glargine 16 Units subcutaneous Nightly insulin lispro 0-15 Units subcutaneous TID AC OLANZapine 2.5 mg oral Nightly pantoprazole 40 mg oral Daily before breakfast Or pantoprazole 40 mg intravenous Daily before breakfast perflutren lipid microspheres 0.5-10 mL of dilution intravenous Once in imaging tamsulosin 0.4 mg oral Daily [2] PRN medications Medication acetaminophen Or acetaminophen Or acetaminophen benzocaine-menthol dextrose dextrose glucagon glucagon lidocaine-epinephrine melatonin OLANZapine ondansetron Or ondansetron oxygen phenoL prochlorperazine Or prochlorperazine Or prochlorperazine traMADol [3] Continuous Medications Medication Dose Last Rate Cosigned by Kapil Rios MD at 07/21/2025 6:24 PM EDT Associated attestation - Kapil Rios MD - 07/21/2025 6:24 PM EDT This is a shared visit. I have reviewed the Advanced Practice Provider's encounter note, approve the Advanced Practice Provider's documentation, and provide the following additional information from my personal encounter. Spiritual Care Visit Spiritual Care Request Reason for Visit: Routine Visit: Introduction Request Received From: Referral From: Verbal Focus of Care: Visited With: Family Refer to Groundskeeping Maintenance: Referral To: Groundskeeping Maintenance Outcome: Outcome of Spiritual Care Visit: Affirmation, Comfort/healing presence, Emotional release, Peace/gratitude, Support system identified Spiritual Care Annotation Annotation: Groundskeeping Maintenance met with of patient for spiritual care referral (patient was asleep). discussed patient's health and the unexpected direction things have gone since coming to the hospital. shared that things are hard, but she is coping alright. Patient also mentioned that she does have supportive people in her life as she supports her . Groundskeeping Maintenance provided active listening, a calm, supportive presence, explored means of coping and support system, and offered words of encouragement. expressed gratitude for visit. Signed: Eze Townsend Clinical Care Groundskeeping Maintenance Speech-Language Pathology Adult Inpatient Swallow Treatment Patient Name: Kitty Allen Today's Date: 07/21/2025 Start Time: 1225 Stop Time: 1245 Time Calculation (min): 20 Impression: Swallow treatment session to ensure diet tolerance completed. Pt demonstrated tolerance of Regular Solids & Thin Liquids per clinical swallow evaluation completed 07/14. Received awake/alert and upright in bed for session w/ spouse at bedside. Persistently aphasic/nonverbal throughout session and inconsistently able to follow commands. Spouse additionally reports pt tolerating regular diet w/o overt difficulty. Pt independently consumed regular solids and thin liquids from lunch tray w/ normal oral management and no overt clinical s/s aspiration; no coughing or changes in respiratory status/vocal quality. Continue to recommend Regular Solids & Thin Liquids. Ensure safe swallowing guidelines (listed below) are followed during all oral intake. ROOF PLUMBER to continue to follow to ensure diet tolerance as pt appropriate/schedule permits. If pt presents with any changes to mental, medical, or respiratory status, please make NPO and alert ROOF PLUMBER. RN/MD aware. Of note, additionally discussed pt's language deficits w/ spouse who endorses pt w/ intermittent expressions of frustration r/t inability to functionally communicate. ROOF PLUMBER provided education re: tools/strategies to aid in pt's communication w/ spouse verbalizing understanding. Handouts re: aphasia diagnosis provided. Additionally informed spouse that pt will likely require intensive speech therapy at next level of care given severity of deficits. Spouse verbalized understanding. Discussed case at length w/ medical team following session. Recommendations: Regular Solids & Thin Liquids Upright for all PO intake Remain upright for 20-30 min after eating Small bites/sips Straws ok Slow rate of consumption Pills per pt preference ROOF PLUMBER to continue to follow to ensure diet tolerance as pt appropriate/schedule permits If pt presents with any changes to mental, medical, or respiratory status, please make NPO and alert ROOF PLUMBER Goal: Pt/caregiver/family will demonstrate adequate return of knowledge re: dysphagia POC/diet recommendations/safe swallowing guidelines w/ 100% acc to effectively assist the patient in immediate safety with oral intake and swallowing. Start Date: 07/14/2025 End Date: 07/28/2025 Status: Progressing Pt will tolerate least restrictive diet with no overt clinical s/s aspiration 100% of the time. Start Date: 07/14/2025 End Date: 07/28/2025 Status: Progressing Plan: ROOF [employer]UMBER Services Indicated: Yes Frequency: 1x per week Discussed POC with patient and spouse ROOF PLUMBER - OK to Discharge Pain: 0-10 0 = No pain. Inpatient Education: Extensive education provided to patient and spouse regarding current swallow function, recommendations/results, and POC. Consultations/Referrals/Coordinat ion of Services: N/A [facility] Shared Cardiology Progress Note Mr. 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 He has a history of HTN, HLD, DM2, CKD4, CAD s/p PCI 01/19/25, severe , gout, OA, obesity, BPH. Admitted 07/13/25 post TAVR. Develop aphasia evening 07/13 post-procedure. BAT called. CT/CTA 07/14 without LVO or ICH. MRI brain showed acute to subacute embolic infarcts L>M hemispheres and left cerebellum consistent with nola-procedural cardioembolism. Course complicated by agitation and delirium requiring antipsychotics and De Oliveira for urinary retention. Transferred 07/17 to [facility] for co-management with psychiatry to facilitate restraint/sitter wean and behavioral stabilization; patient continues to experience delirium but is now off-sitter. Pending potential discharge after conversations with SW, Psych and facility placement. Gen: intermittently confused HEENT: normocephalic. Trachea midline CV: RRR. Soft systolic murmur, no gallops, rubs Pulm: clear to auscultation bilaterally. No coarse lung sounds Abd: soft, non-distended. Normal active bowel sounds Ext: warm and well-perfused Psych: appropriate affect Plan -Dispo planning: pending facility placement -Will need [employer] monitor on discharge -Delirium precautions: labs q48h. Qshift vitals. Appreciate Psych recs -Continue to monitor on tele -PT/OT Objective Data: Last Recorded Vitals: Vitals: 07/20/25200607/20/25 2342 07/21/25 0257 07/21/25 0735 BP: 166/72 145/71 127/79 142/63 BP Location: Right arm Right arm Patient Position: Lying Lying Pulse: 69 73 86 Resp: 16 16 16 Temp: 36.6 C (97.9 F) 36.6 C (97.9 F) 36.7 C (98.1 F) 37.2 C (99 F) TempSrc: Temporal Temporal SpO2: 99% 94% 97% 99% Weight: Height: Last Labs: CBC - 07/20/2025: 6:38 AM 9.6 11.5 209 36.5 CMP - 07/20/2025: 6:38 AM 9.0 6.8 18 --- 0.7 3.2 3.8 12 91 PTT - No results in last year. 1.1 12.7 _ TROPHS Date/Time Value Ref Range Status 03/04/2025 02:12 PM 11 0 - 20 ng/L Final 03/04/2025 01:10 PM 13 0 - 20 ng/L Final 10/18/2024 03:57 PM 11 0 - 20 ng/L Final BNP Date/Time Value Ref Range Status 10/18/2024 03:57 PM 321 0 - 99 pg/mL Final HGBA1C Date/Time Value Ref Range Status 07/15/2025 06:34 AM 7.0 See comment % Final 03/09/2025 08:32 AM 6.6 <5.7 % Final Comment: For someone without known diabetes, a hemoglobin A1c value of 6.5% or greater indicates that they may have diabetes and this should be confirmed with a follow-up test. For someone with known diabetes, a value <7% indicates that their diabetes is well controlled and a value greater than or equal to 7% indicates suboptimal control. A1c targets should be individualized based on duration of diabetes, age, comorbid conditions, and other considerations. Currently, no consensus exists regarding use of hemoglobin A1c for diagnosis of diabetes for children. 09/05/2024 07:38 AM 7.2 See comment % Final LDLCALC Date/Time Value Ref Range Status 07/15/2025 06:34 AM 76 <=99 mg/dL Final Comment: Near Borderline AGE Desirable Optimal High High Very High 0-19 Y 0 - 109 --- 110-129 >/= 130 ---- 20-24 Y 0 - 119 --- 120-159 >/= 160 ---- >24 Y 0 - 99 100-129 130-159 160-189 >/=190 LDL Cholesterol is calculated using the Friedewald equation. 09/26/2024 07:54 AM 42 <=99 mg/dL Final Comment: Near Borderline AGE Desirable Optimal High High Very High 0-19 Y 0 - 109 --- 110-129 >/= 130 ---- 20-24 Y 0 - 119 --- 120-159 >/= 160 ---- >24 Y 0 - 99 100-129 130-159 160-189 >/=190 VLDL Date/Time Value Ref Range Status 07/15/2025 06:34 AM 31 0 - 40 mg/dL Final 09/26/2024 07:54 AM 60 0 - 40 mg/dL Final 03/29/2022 07:54 AM SEE COMMENT 0 - 40 mg/dL Final Comment: Unable to calculate VLDL. 03/29/2020 08:37 AM SEE COMMENT 0 - 40 mg/dL Final Comment: Unable to calculate VLDL. Last I/O: I/O last 3 completed shifts: In: 390 (3.8 mL/kg) [P.O.:390] Out: 1775 (17.4 mL/kg) [Urine:1775 (0.5 mL/kg/hr)] Weight: 101.8 kg Past Cardiology Tests (Last 3 Years): EKG: ECG 12 lead daily 07/15/2025 (Preliminary) Echo: Transthoracic Echo (TTE) Limited 07/14/2025 Ejection Fractions: EF Date/Time Value Ref Range Status 07/14/2025 03:18 PM 62 % 10/20/2024 07:19 AM 67 % Cath: Cardiac Catheterization Procedure 07/13/2025 Cardiac Catheterization Procedure 01/19/2025 Stress Test: No results found for this or any previous visit from the past 1095 days. Cardiac Imaging: No results found for this or any previous visit from the past 1095 days. Inpatient Medications: Scheduled Medications[1] PRN Medications[2] Continuous Medications[3] Peripheral IV 10/20/25 20 G Anterior;Left Forearm (Active) Site Assessment Clean;Dry;Intact 07/21/25899 Dressing Status Clean;Dry;Occlusive 07/21/25 09 Number of days: 8 Urethral Catheter (Active) Reason for Continuing Urinary Catheterization chronic urinary retention 07/21/25899 Number of days: 5 Code Status: Full Code Kapil Rios MD [1] Scheduled medications Medication Dose Route Frequency amLODIPine 10 mg oral Daily aspirin 81 mg oral Daily bisacodyl 5 mg oral Nightly bumetanide 0.5 mg oral Daily clopidogrel 75 mg oral Daily docusate sodium 100 mg oral BID ezetimibe 10 mg oral Daily gabapentin 300 mg oral BID heparin (porcine) 5,000 Units subcutaneous q8h insulin glargine 16 Units subcutaneous Nightly insulin lispro 0-15 Units subcutaneous TID AC OLANZapine 2.5 mg oral Nightly pantoprazole 40 mg oral Daily before breakfast Or pantoprazole 40 mg intravenous Daily before breakfast perflutren lipid microspheres 0.5-10 mL of dilution intravenous Once in imaging tamsulosin 0.4 mg oral Daily [2] PRN medications Medication acetaminophen Or acetaminophen Or acetaminophen benzocaine-menthol dextrose dextrose glucagon glucagon lidocaine-epinephrine melatonin OLANZapine ondansetron Or ondansetron oxygen phenoL prochlorperazine Or prochlorperazine Or prochlorperazine traMADol [3] Continuous Medications Medication Dose Last Rate Social Work Note: 07/21/25 1003 Rapid Rounds Attendance Provider;Nurse;Care Transitions Expected Discharge Disposition Rehab Today we still await: Procedure (Comment) Review at Escalation Rounds No escalation needed Patient is medically ready. Previous SW sent a referral to [facility]. She reported that she sent the psych note this AM. AUTOMOTIVE GLASS MECHANIC will call shortly to determine if patient is accepted. Patient will need a precert prior to discharge. AUTOMOTIVE GLASS MECHANIC will continue to follow [facility] Physical Therapy Physical Therapy Treatment Patient Name: Kitty Allen Department: [facility] 40 Room: [address] [place] [address] Today's Date: 07/20/2025 Time Calculation Start Time: 1216 Stop Time: 1245 Time Calculation (min): 29 min Assessment/Plan PT Assessment End of Session Communication: Bedside nurse Assessment Comment: Pt able to progress mobility this date, ambulating 8ft with Min A X2. Pt remains limited by cognition, strength, and balance. Pt remains appropriate for High Intensity Rehab after DC. End of Session Patient Position: Up in chair, Alarm off, caregiver present (RN aware no chair alarm available) PT Plan Treatment/Interventions: Bed mobility, Transfer training, Gait training, Balance training, Neuromuscular re-education, Strengthening, Endurance training, Therapeutic exercise, Therapeutic activity, Home exercise program PT Plan: Ongoing PT PT Frequency for Current Admission: 5 times per week during this acute inpatient hospitalization PT Discharge Recommendations: High intensity level of continued care Equipment Recommended upon Discharge: (tbd) PT Recommended Transfer Status: Assist x2 PT - OK to Discharge: Yes PT Visit Info: PT Received On: 07/20/25 Response to Previous Treatment: Patient unable to report, no changes reported from family or staff General Visit Information: General Family/Caregiver Present: Yes Caregiver Feedback: and daughter present and supportive during session Co-Treatment: OT Co-Treatment Reason: AMPAC 10 Prior to Session Communication: Bedside nurse Patient Position Received: Bed, 3 rail up, Alarm on Preferred Learning Style: auditory, verbal, visual General Comment: Pt agreeable to PT session with encouragement Subjective Precautions: Precautions Hearing/Visual Limitations: has hearing aides, but not wearing Medical Precautions: Fall precautions, Cardiac precautions Date/Time Vitals Session Patient Position Pulse Resp SpO2 BP MAP (mmHg) 07/20/25 15:06:32 -- -- 66 17 96 % 156/78 104 Objective Pain: Pain Assessment Pain Assessment: 0-10 0-10 (Numeric) Pain Score: 0 - No pain Cognition: Cognition Overall Cognitive Status: Impaired Orientation Level: Unable to assess (Due to aphasia, pt frustrated with questions) Following Commands: Follows one step commands with repetition (75% of time) Insight: Moderate Impulsive: Mildly Coordination: Movements are Fluid and Coordinated: Yes Postural Control: Static Sitting Balance Static Sitting-Balance Support: Feet supported, Bilateral upper extremity supported Static Sitting-Level of Assistance: Close supervision Static Standing Balance Static Standing-Balance Support: Bilateral upper extremity supported Static Standing-Level of Assistance: Minimum assistance (+2) Extremity/Trunk Assessments: RLE RLE : Exceptions to WFL Strength RLE RLE Overall Strength: Greater than or equal to 3/5 as evidenced by functional mobility, Deficits, Due to cognitive deficits LLE LLE : Exceptions to WFL Strength LLE LLE Overall Strength: Greater than or equal to 3/5 as evidenced by functional mobility, Deficits, Due to cognitive deficits Activity Tolerance: Activity Tolerance Endurance: Tolerates 10 - 20 min exercise with multiple rests Early Mobility/Exercise Safety Screen: Proceed with mobilization - No exclusion criteria met Treatments: Therapeutic Exercise Therapeutic Exercise Performed: Yes Therapeutic Exercise Activity 1: LAQ X5 RLE Bed Mobility Bed Mobility: Yes Bed Mobility 1 Bed Mobility 1: Supine to sitting Level of Assistance 1: Moderate assistance, Moderate verbal cues, Moderate tactile cues Bed Mobility Comments 1: HOB elevated, cues and encouragement for sequencing Ambulation/Gait Training Ambulation/Gait Training Performed: Yes Ambulation/Gait Training 1 Surface 1: Level tile Device 1: No device Assistance 1: Arm in arm assistance, Minimum assistance, Minimal verbal cues (+2) Quality of Gait 1: Decreased step length, Inconsistent stride length, Soft knee(s) Comments/Distance (ft) 1: 3ft, 8ft Transfers Transfer: Yes Transfer 1 Transfer From 1: Bed to, Stand to Transfer to 1: Bed, Chair with arms Technique 1: Sit to stand, Stand to sit Transfer Level of Assistance 1: Arm in arm assistance, Minimum assistance, +2, Minimal verbal cues Transfers 2 Transfer From 2: Chair with arms to, Stand to Transfer to 2: Stand, Chair with arms Technique 2: Sit to stand, Stand to sit Transfer Level of Assistance 2: Arm in arm assistance, Minimum assistance, +2 Stairs Stairs: No Outcome Measures: [facility] Basic Mobility Turning from your back to your side while in a flat bed without using bedrails: A lot Moving from lying on your back to sitting on the side of a flat bed without using bedrails: A lot Moving to and from bed to chair (including a wheelchair): A lot Standing up from a chair using your arms (e.g. wheelchair or bedside chair): A lot To walk in hospital room: Total Climbing 3-5 steps with railing: Total Basic Mobility - Total Score: 10 Education Documentation Precautions, taught by Rian Dorado PT at 07/20/2025 3:33 PM. Learner: Family, Patient Readiness: Acceptance Method: Explanation, Demonstration Response: Verbalizes Understanding, Needs Reinforcement Comment: PT POC, safety precautions Mobility Training, taught by Rian Dorado PT at 07/20/2025 3:33 PM. Learner: Family, Patient Readiness: Acceptance Method: Explanation, Demonstration Response: Verbalizes Understanding, Needs Reinforcement Comment: PT POC, safety precautions Care Plan Goals: Encounter Problems Encounter Problems (Active) Balance Patient to demo static standing with unilateral UE support, performing single UE task with CGAx1, no sway or LOB x 2 mins for functional carryover (Progressing) Start: 07/14/25 Expected End: 07/28/25 Mobility STG - Patient will ambulate >/= 50 ft with CGAx1 and LRAD (Progressing) Start: 07/14/25 Expected End: 07/28/25 Pt. will tolerate >/= 10 minutes of OOB mobility without seated rest break and VSS to demo improved activity tolerance/endurance. (Progressing) Start: 07/14/25 Expected End: 07/28/25 Patient will actively participate in ther-ex in order to improve strength and to assist with the completion of functional mobility tasks. (Progressing) Start: 07/14/25 Expected End: 07/28/25 PT Transfers STG - Patient will perform bed mobility IND (Progressing) Start: 07/14/25 Expected End: 07/28/25 STG - Patient will transfer sit to and from stand with CGAx1 and LRAD (Progressing) Start: 07/14/25 Expected End: 07/28/25 Subjective Data: Refused meds this am but willing to accept later in the day. Per daughter, patient does not like to be bothered. Still having hyperglycemia. Able to shake my hand when asked, follow commands. Objective Data: Last Recorded Vitals: Vitals: 07/19/25 1522 07/19/25 1917 07/20/25 0600 07/20/25 0758 BP: 149/68 144/64 149/86 BP Location: Left arm Patient Position: Lying Pulse: 68 75 86 Resp: 18 16 Temp: 37 C (98.6 F) 36 C (96.8 F) 36 C (96.8 F) TempSrc: Temporal SpO2: 95% 95% 96% Weight: 102 kg (224 lb 6.9 oz) Height: Last Labs: CBC - 07/20/2025: 6:38 AM 9.6 11.5 209 36.5 CMP - 07/20/2025: 6:38 AM 9.0 6.8 18 --- 0.7 3.2 3.8 12 91 PTT - No results in last year. 1.1 12.7 _ TROPHS Date/Time Value Ref Range Status 03/04/2025 02:12 PM 11 0 - 20 ng/L Final 03/04/2025 01:10 PM 13 0 - 20 ng/L Final 10/18/2024 03:57 PM 11 0 - 20 ng/L Final BNP Date/Time Value Ref Range Status 10/18/2024 03:57 PM 321 0 - 99 pg/mL Final HGBA1C Date/Time Value Ref Range Status 07/15/2025 06:34 AM 7.0 See comment % Final 03/09/2025 08:32 AM 6.6 <5.7 % Final Comment: For someone without known diabetes, a hemoglobin A1c value of 6.5% or greater indicates that they may have diabetes and this should be confirmed with a follow-up test. For someone with known diabetes, a value <7% indicates that their diabetes is well controlled and a value greater than or equal to 7% indicates suboptimal control. A1c targets should be individualized based on duration of diabetes, age, comorbid conditions, and other considerations. Currently, no consensus exists regarding use of hemoglobin A1c for diagnosis of diabetes for children. 09/05/2024 07:38 AM 7.2 See comment % Final LDLCALC Date/Time Value Ref Range Status 07/15/2025 06:34 AM 76 <=99 mg/dL Final Comment: Near Borderline AGE Desirable Optimal High High Very High 0-19 Y 0 - 109 --- 110-129 >/= 130 ---- 20-24 Y 0 - 119 --- 120-159 >/= 160 ---- >24 Y 0 - 99 100-129 130-159 160-189 >/=190 LDL Cholesterol is calculated using the Friedewald equation. 09/26/2024 07:54 AM 42 <=99 mg/dL Final Comment: Near Borderline AGE Desirable Optimal High High Very High 0-19 Y 0 - 109 --- 110-129 >/= 130 ---- 20-24 Y 0 - 119 --- 120-159 >/= 160 ---- >24 Y 0 - 99 100-129 130-159 160-189 >/=190 VLDL Date/Time Value Ref Range Status 07/15/2025 06:34 AM 31 0 - 40 mg/dL Final 09/26/2024 07:54 AM 60 0 - 40 mg/dL Final 03/29/2022 07:54 AM SEE COMMENT 0 - 40 mg/dL Final Comment: Unable to calculate VLDL. 03/29/2020 08:37 AM SEE COMMENT 0 - 40 mg/dL Final Comment: Unable to calculate VLDL. Last I/O: I/O last 3 completed shifts: In: 240 (2.4 mL/kg) [P.O.:240] Out: 1825 (17.9 mL/kg) [Urine:1825 (0.5 mL/kg/hr)] Weight: 101.8 kg Past Cardiology Tests (Last 3 Years): EKG: ECG 12 lead daily 07/14/2025 (Preliminary) ECG 12 lead daily 07/13/2025 (Preliminary) ECG 12 lead 07/13/2025 ECG 12 Lead 03/05/2025 ECG 12 lead 03/04/2025 ECG 12 lead 03/04/2025 ECG 12 lead STAT 01/19/2025 Electrocardiogram 12 Lead 01/19/2025 ECG 12 lead (Clinic Performed) 12/08/2024 ECG 12 lead ECG 12 lead 05/29/2024 Echo: Transthoracic Echo (TTE) Limited 07/14/2025 Transthoracic Echo (TTE) Limited 07/13/2025 Transthoracic Echo (TTE) Complete 10/20/2024 Ejection Fractions: EF Date/Time Value Ref Range Status 07/14/2025 03:18 PM 62 % 10/20/2024 07:19 AM 67 % Cath: Cardiac Catheterization Procedure 07/13/2025 Cardiac Catheterization Procedure 01/19/2025 Stress Test: No results found for this or any previous visit from the past 1095 days. Cardiac Imaging: No results found for this or any previous visit from the past 1095 days. Inpatient Medications: Scheduled Medications[1] PRN Medications[2] Continuous Medications[3] Physical Exam: General: NAD, lying in bed Skin: warm and dry Head/ neck: no JVD seen at 90 degrees Cardiac: RRR, S1, S2 Pulm: CTAB, room air GI: soft, nontender Extremities: no LE edema Neuro: expressive aphasia Psych: agitated at times Assessment/Plan Kitty Vergara is a 85 y.o. male with a PMH of BPH, GERD, CKD stage 4, DMII hgAIc 6.6, CAD s/p LHC/RHC with PCI- 01/19/25, on Plavix and ASA 81mg, bardycardia, and severe non-rheumatic aortic stenosis. Pt presented on 07/13/2025 for elective TAVR. Overnight on 07/14/25 BAT called for abnormal speech and AMS concerning for stroke. Transferred to [facility] service for management. TAVR 07/14 - TTE 07/14 EF 62%. normal aortic valve prosthesis structure and function. No WMA. Compared with study dated 07/13/2025, the patient is now s/p 34 mm Evolut Fx+ TAVR with reduction in aortic gradients. - CXR 07/14 Mild pulmonary vascular congestion compared to the previous study. - 07/15 Home bumex dose is 0.5, increased to 1mg on 07/13. Lowered back to 0.5 since he had confusion and taking less PO intake today. - Single antiplatelet for life is recommended post tavr but given with pt h xof PCI 01/19/25 pt will need ASA and Plavix until next year 01/19/26 Acute Stroke 07/14 - expressive and receptive aphasia - CT head and CTA head/neck which did not demonstrate any new stroke or any large vessel occlusion. - Carodis with Left greater than right with stenosis of the distal left common carotid artery measuring up to approximately 60-65%. Nonspecific white matter changes most likely represent small-vessel ischemic disease in a patient of this age. No evidence of acute cortical infarct, mass effect, or ICH. There are areas of encephalomalacia in the cerebellum which could reflect remote infarcts. - MRI brain 07/14 scattered areas of acute to early subacute infarction within the cerebral hemispheres bilaterally left greater than right as well as within the left cerebellar hemisphere as described above. The dominant area of acute to early subacute infarction is identified within the left temporoparietal region. The above findings are superimposed upon moderate brain parenchymal volume loss. There are scattered as well as more patchy and confluent nonspecific white matter changes again noted within cerebral hemispheres bilaterally as well as ill-defined increased signal on the FLAIR and T2 images overlying the brainstem which while nonspecific, given the patient's age, likely represent sequelae of more remote small-vessel ischemic change. Additional small foci of bright signal on the T2 images are identified within the subinsular regions, basal ganglia, and thalami bilaterally suggesting incidental mildly prominent perivascular spaces and/or scattered more remote lacunar infarctions.Scattered areas of encephalomalacia are identified within the cerebellum as well as along the posterior right occipital lobe. - Neuro consulted, no objection to DAPT, defer to primary. Follow up stroke clinic (requested), continue speech therapy. Signed off - PT/OT - 07/15 Combative, required haldol. - 07/16 Psych consulted for agitation mgmt - Hx fall day of TAVR, slipped off chair in kitchen and landed on buttocks. No trauma. -07/17--Transferred to [facility] per Psychiatry for goal to liberate patient from sitter/restraints (Will remain primary w/ co-management ) - 07/20 refusing to take meds today but was able to finally accept DAPT. CKD Stage 4 - Cr today 2.26 (2.24, 2.52, 2.53) - Baseline 2-2.2 - 07/15 Reduce bumex back to home dose of 0.5 - 07/21 For sake of patient agitation, will check labs Q48 hours CAD HLP - s/p PCI to prox-mid LAD using [address] Jessie Fay - Single antiplatelet for life is recommended post tavr but given with pt h xof PCI 01/19/25 pt will need ASA and Plavix until next year 01/19/26 - lipid panel ordered per neuro request ->HDL 35.4, LDL 76,Trigs 154 - Allergy to statin, continue zetia HTN - Pt with SBP wolf 144-167 - Blood pressure goals: avoid hypotension SBP <100 that could worsen cerebral perfusion, permissive HTN - Continue amlodipine 2.5mg daily-07/18 Increased to 5 mg DM - HgbA1C 6.6 02/2025 - (7.0) rechecked HgbA1C per neuro request - Lantus 10u+SS - 07/19 persistent hyperglycemia- increased Glargine from 10 to 14 units nightly (home dose 19 units nightly) - 07/20 increased SS to #3. Urinary Retention BPH - Hx ureteroscopy, cysto with retrograde pyelogram and bladder lesion ablation 10/28/24. Cysto showed severe bladder trabeculation, no mass. Prostate enlargement. - Hx requiring de oliveira for 2 months, was on flomax and proscar - Hx cystoscopy showed severe bladder trabeculation, no mass, prostate enlargement S/P Endoscopic Anatomical Prostate Enucleation ~ HoLEP 03/30/25 with improvement in emptying - 07/15 Patient wants to urinate out of bed, for safety reasons kept in bed, unable to follow command to urinate in urinal. Became agitated. straight cath Q shift PRN urine >400 on bladder scan - 07/16 De Oliveira placed for continued need of straight cath (rec only 1/2 inflating balloon to decrease risk of potential injury . - 07/17-Good UO via de oliveira. Started Flomax 0.4 mg daily DVT ppx:heparin subcutaneous DISPO: PT/OT and speech & PMR eval->rec SNF w/ goal to [place]. Family chose SNF in [place]. Psychiatry ok for DC. Code Status: Full Code All labs, vital signs, tests & imaging results, and medications were reviewed. Seen and discussed with Dr. 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 [1] Scheduled medications Medication Dose Route Frequency amLODIPine 5 mg oral Daily aspirin 81 mg oral Daily bisacodyl 5 mg oral Nightly bumetanide 0.5 mg oral Daily clopidogrel 75 mg oral Daily docusate sodium 100 mg oral BID ezetimibe 10 mg oral Daily gabapentin 300 mg oral BID heparin (porcine) 5,000 Units subcutaneous q8h insulin glargine 14 Units subcutaneous Nightly insulin lispro 0-15 Units subcutaneous TID AC OLANZapine 2.5 mg oral Nightly pantoprazole 40 mg oral Daily before breakfast Or pantoprazole 40 mg intravenous Daily before breakfast perflutren lipid microspheres 0.5-10 mL of dilution intravenous Once in imaging tamsulosin 0.4 mg oral Daily [2] PRN medications Medication acetaminophen Or acetaminophen Or acetaminophen benzocaine-menthol dextrose dextrose glucagon glucagon lidocaine-epinephrine melatonin OLANZapine ondansetron Or ondansetron oxygen phenoL prochlorperazine Or prochlorperazine Or prochlorperazine traMADol [3] Continuous Medications Medication Dose Last Rate Cosigned by Kapil Rios MD at 07/20/2025 9:04 PM EDT Associated attestation - Kapil Rios MD - 07/20/2025 9:04 PM EDT This is a shared visit. I have reviewed the Advanced Practice Provider's encounter note, approve the Advanced Practice Provider's documentation, and provide the following additional information from my personal encounter. Mr. 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 Admitted 07/13/25 post TAVR. Develop aphasia evening 07/13 post-procedure. BAT called. CT/CTA 07/14 without LVO or ICH. MRI brain showed acute to subacute embolic infarcts L>M hemispheres and left cerebellum consistent with nola-procedural cardioembolism. Course complicated by agitation and delirium requiring antipsychotics and De Oliveira for urinary retention. Transferred 07/17 to [facility] for co-management with psychiatry to facilitate restraint/sitter wean and behavioral stabilization. Pending potential discharge after conversations with SW, Psych. Gen: intermittently confused HEENT: normocephalic. Trachea midline CV: RRR. Soft systolic murmur, no gallops, rubs Pulm: clear to auscultation bilaterally. No coarse lung sounds Abd: soft, non-distended. Normal active bowel sounds Ext: warm and well-perfused Psych: appropriate affect Plan -Dispo planning -Delirium precautions -Continue to monitor on tele -PT/OT Occupational Therapy OT Treatment Patient Name: Kitty Allen Today's Date: 07/20/2025 Time Calculation Start Time: 1216 Stop Time: 1244 Time Calculation (min): 28 min 4021/4021-A Assessment: Prognosis: Good Barriers to Discharge Home: Physical needs, Cognition needs, Caregiver assistance Caregiver Assistance: Caregiver assistance needed per identified barriers - however, level of patient's required assistance exceeds assistance available at home Cognition Needs: 24hr supervision for safety awareness needed, Medication and/or medical management daily assist needed, Insight of patient limited regarding functional ability/needs, Cognition-related high falls risk Physical Needs: 24hr mobility assistance needed, 24hr ADL assistance needed, High falls risk due to function or environment Evaluation/Treatment Tolerance: Patient tolerated treatment well End of Session Communication: Bedside nurse End of Session Patient Position: Up in chair, Alarm off, caregiver present (family present at B/S; attempted to find chair alarm, however, unable to locate alarm. RN aware and OK'd pt seated in recliner chair with family present) OT Assessment Results: Decreased ADL status, Decreased safe judgment during ADL, Decreased cognition, Decreased endurance, Decreased functional mobility, Decreased IADLs Prognosis: Good Barriers to Discharge: Decreased caregiver support Evaluation/Treatment Tolerance: Patient tolerated treatment well Strengths: (support of family) Barriers to Participation: Comorbidities Plan: Treatment Interventions: ADL retraining, Functional transfer training, UE strengthening/ROM, Endurance training, Cognitive reorientation, Patient/family training, Equipment evaluation/education, Compensatory technique education, Continued evaluation OT Frequency for Current Admission: 4 times per week during this acute inpatient hospitalization OT Discharge Recommendations: High intensity level of continued care Equipment Recommended upon Discharge: (TBD at next setting) OT Recommended Transfer Status: Assist of 2 OT - OK to Discharge: Yes Treatment Interventions: ADL retraining, Functional transfer training, UE strengthening/ROM, Endurance training, Cognitive reorientation, Patient/family training, Equipment evaluation/education, Compensatory technique education, Continued evaluation Subjective 07/20/25 1217 OT Last Visit OT Received On 07/20/25 General Reason for Referral Pt admitted for elective TAVR on 07/13. Post op course c/b significant aphasia resulting in BAT. NIHSS 11. CTH: old L caudate hypodensity and ?R temporal hypodensity. CTA H/N with patent anterior and posterior circulations. OOW TNK. Not a candidate for EVT given no LVO. Suspect etiology of symptoms either recrudesce of old stroke vs new ischemic infarct 2/2 cardio embolic origin Past Medical History Relevant to Rehab BPH, GERD, CKD stage 4, DMII hgAIc 6.6, CAD s/p LHC/RHC with PCI- 01/19/25, on Plavix and ASA 81mg, bardycardia, and severe non-rheumatic aortic stenosis. Family/Caregiver Present Yes (spouse, daughter in law) Co-Treatment PT Co-Treatment Reason to maximize safety Prior to Session Communication Bedside nurse Patient Position Received Bed, 3 rail up;Alarm off, caregiver present (RN in room attempting to give pt insulin) General Comment Pt received in supine, appeared somewhat agitated with RN upon OT's arrival to room, however, able to participate for mobility with therapy with repeated reassurance from therapists and family. Pt presents with expressive aphasia, however, sometimes able to verbal some short phrases, Precautions Medical Precautions Fall precautions;Cardiac precautions Pain Assessment 0-10 (Numeric) Pain Score 0 - No pain Davis-Timmons FACES Pain Rating 0 Cognition Overall Cognitive Status Impaired Orientation Level (difficult to fully assess 2' pt somewhat agitated at start of session and also presenting with expressive aphasia.) Following Commands Follows one step commands with repetition (increased time, and tactile/gestural cues, approximately 75% or greater.) Cognition Comments Pt is distractable, required repeated redirection from attempting to remove leslie wrap bandage covering left UE IV, will continue to assess. Insight Moderate Impulsive Mildly Processing Speed Delayed Grooming Grooming Level of Assistance Close supervision;Setup Grooming Where Assessed Chair Grooming Comments Pt able to brush hair after presented with hairbrush. UE Dressing UE Dressing Level of Assistance (Anticipate at least min to mod assist seated EOB after setup and with cues.) LE Dressing LE Dressing (anticipate at least mod to max assist based on pt's functional performance during session.) Toileting Toileting Level of Assistance (anticipate at least mod to max assist based on pt's functional performance during session.) Bed Mobility Bed Mobility Yes Bed Mobility 1 Bed Mobility 1 Supine to sitting Level of Assistance 1 Moderate assistance (x1) Bed Mobility Comments 1 HOB elevated, required verbal/tactile/gestural cues to initiate task. Functional Mobility Functional Mobility Performed Yes Functional Mobility 1 Surface 1 Level tile Device 1 (B/L arm in arm assist) Assistance 1 Arm in arm assistance;Minimum assistance Quality of Functional Mobility 1 Inconsistent stride length Comments 1 Pt able to take 3-4 steps to B/S chair first trial, and then able to perform fxnl mobility 8-10' with B/L arm in arm assist x2 after seated rest in B/S chair. Transfers Transfer Yes Transfer 1 Technique 1 Sit to stand;Stand to sit Transfer Device 1 (B/L arm in arm assist) Transfer Level of Assistance 1 Arm in arm assistance;Minimum assistance;+2;Minimal verbal cues Trials/Comments 1 2 trials Static Sitting Balance Static Sitting-Level of Assistance Close supervision Static Standing Balance Static Standing-Level of Assistance Minimum assistance (X1-2 with arm in arm assist) IP OT Assessment Prognosis Good Barriers to Discharge Home Physical needs;Cognition needs;Caregiver assistance Caregiver Assistance Caregiver assistance needed per identified barriers - however, level of patient's required assistance exceeds assistance available at home Cognition Needs 24hr supervision for safety awareness needed;Medication and/or medical management daily assist needed;Insight of patient limited regarding functional ability/needs;Cognition-related high falls risk Physical Needs 24hr mobility assistance needed;24hr ADL assistance needed;High falls risk due to function or environment Evaluation/Treatment Tolerance Patient tolerated treatment well End of Session Communication Bedside nurse End of Session Patient Position Up in chair;Alarm off, caregiver present (family present at B/S; attempted to find chair alarm, however, unable to locate alarm. RN aware and OK'd pt seated in recliner chair with family present) OT Assessment OT Assessment Results Decreased ADL status;Decreased safe judgment during ADL;Decreased cognition;Decreased endurance;Decreased functional mobility;Decreased IADLs Barriers to Discharge Decreased caregiver support Strengths (support of family) Barriers to Participation Comorbidities Inpatient/Swing Bed or Outpatient Inpatient/Swing Bed or Outpatient Inpatient Inpatient Plan Treatment Interventions ADL retraining;Functional transfer training;UE strengthening/ROM;Endurance training;Cognitive reorientation;Patient/family training;Equipment evaluation/education;Compensatory technique education;Continued evaluation OT Frequency for Current Admission 4 times per week OT Discharge Recommendations High intensity level of continued care Equipment Recommended upon Discharge (TBD at next setting) OT Recommended Transfer Status Assist of 2 OT - OK to Discharge Yes Outcome Measures:[facility] Daily Activity Putting on and taking off regular lower body clothing: A lot Bathing (including washing, rinsing, drying): A lot Putting on and taking off regular upper body clothing: A little Toileting, which includes using toilet, bedpan or urinal: A lot Taking care of personal grooming such as brushing teeth: A little Eating Meals: A little Daily Activity - Total Score: 15 Education Documentation Body Mechanics, taught by Indigo Car OT at 07/20/2025 2:31 PM. Learner: Patient Readiness: Acceptance Method: Explanation Response: Needs Reinforcement Precautions, taught by Indigo Car OT at 07/20/2025 2:31 PM. Learner: Patient Readiness: Acceptance Method: Explanation Response: Needs Reinforcement ADL Training, taught by Indigo Car OT at 07/20/2025 2:31 PM. Learner: Patient Readiness: Acceptance Method: Explanation Response: Needs Reinforcement Education Comments No comments found. Goals: Encounter Problems Encounter Problems (Active) ADLs Pt will don/doff all UB clothing with supervision and prn AE to promote independence in BADLs. (Progressing) Start: 07/14/25 Expected End: 07/28/25 Pt will don/doff all LB clothing with min A and prn AE to promote independence in BADLs. (Progressing) Start: 07/14/25 Expected End: 07/28/25 Pt will complete daily grooming tasks (e.g. brush teeth, wash face, shave, etc.) with supervision and min vcs to promote safety and independence in ADL tasks. (Progressing) Start: 07/14/25 Expected End: 07/28/25 Pt will complete toileting including clothing management and hygiene with min A and prn AE to promote independence with basic self care tasks. (Progressing) Start: 07/14/25 Expected End: 07/28/25 BALANCE Patient will maintain static standing balance during ADL task with stand by assist in order to demonstrate decreased risk of falling and improved postural control. (Progressing) Start: 07/14/25 Expected End: 07/28/25 COGNITION/SAFETY Patient will follow 75% of one step commands to allow improved ADL performance. (Progressing) Start: 07/14/25 Expected End: 07/28/25 Patient will demonstrated orientation x 4 with min verbal cues. (Progressing) Start: 07/14/25 Expected End: 07/28/25 ORIENTATION MOBILITY Patient will perform Functional mobility min Household distances/Community Distances with minimal assist and least restrictive device in order to improve safety and functional mobility. (Progressing) Start: 07/14/25 Expected End: 07/28/25 TRANSFERS Patient will perform bed mobility minimal assist level of assistance in order to improve safety and independence with mobility (Progressing) Start: 07/14/25 Expected End: 07/28/25 Patient will complete sit to stand transfer with minimal assist level of assistance and least restrictive device in order to improve safety and prepare for out of bed mobility. (Progressing) Start: 07/14/25 Expected End: 07/28/25 07/20/25 at 2:33 PM - Indigo Car OT 07/20/25 1110 Rapid Rounds Attendance Provider;Nurse;Care Transitions Expected Discharge Disposition Rehab Today we still await: Placement process Review at Escalation Rounds No escalation needed Need PT/OT for precert for [place]. DENIS Burkett (ex [id number]) Fsamily [facility] and [facility] choice. Asked by daughter in law to contact pt gna [place] [phone] with updates. GABRIELA BurkettS (ex [id number]) Subjective Data: Increasingly agitated overnight- required as needed olanzapine dose early this morning around 2 am. Per bedside nurse this am overnight agitated- becoming aggressive- pulling at de oliveira and trying to get out of bed. No acute event overnight. On exam this morning patient lying in bed - eyes open when spoken to - appears calm- not answering questions. at bedside- tearful- attending physician demonstrated empathy and compassion while discussing plan of care with patients spouse. Overnight Events: Agitated again around 2 am- received 2.5 mg Zyprexa IM. Today's Events/Plans: - Hyperglycemia (blood sugars 205-326 yesterday), will increase glargine from 10 to 14 units at bedtime (home Glargine 19 units daily) - per psych recs increased as needed olanzapine from 2.5 mg daily to bid - overnight increasingly agitated/aggressive per nursing- will re-order sitter for patient and caregiver safety at this time. - continue physical and occupational therapy - continue delirium precautions- work on sleep/wake cycle- lights on during daytime, minimize nightly distractions, re-orient and address pain when appropriate and encourage family visitation. Objective Data: Last Recorded Vitals: Vitals: 07/18/25 1932 07/19/25 0009 07/19/25 0307 07/19/25 0728 BP: 137/67 116/86 150/69 147/79 BP Location: Left arm Left arm Left arm Patient Position: Lying Lying Lying Pulse: 79 74 75 81 Resp: 16 16 16 18 Temp: 37 C (98.6 F) 36.5 C (97.7 F) 36.7 C (98.1 F) 36.9 C (98.4 F) TempSrc: Temporal Temporal Temporal SpO2: 95% 94% 95% 97% Weight: Height: Last Labs: CBC - 07/19/2025: 7:21 AM 10.9 11.4 198 35.6 CMP - 07/19/2025: 7:21 AM 9.3 6.8 18 --- 0.7 3.2 3.8 12 91 PTT - No results in last year. 1.1 12.7 _ TROPHS Date/Time Value Ref Range Status 03/04/2025 02:12 PM 11 0 - 20 ng/L Final 03/04/2025 01:10 PM 13 0 - 20 ng/L Final 10/18/2024 03:57 PM 11 0 - 20 ng/L Final BNP Date/Time Value Ref Range Status 10/18/2024 03:57 PM 321 0 - 99 pg/mL Final HGBA1C Date/Time Value Ref Range Status 07/15/2025 06:34 AM 7.0 See comment % Final 03/09/2025 08:32 AM 6.6 <5.7 % Final Comment: For someone without known diabetes, a hemoglobin A1c value of 6.5% or greater indicates that they may have diabetes and this should be confirmed with a follow-up test. For someone with known diabetes, a value <7% indicates that their diabetes is well controlled and a value greater than or equal to 7% indicates suboptimal control. A1c targets should be individualized based on duration of diabetes, age, comorbid conditions, and other considerations. Currently, no consensus exists regarding use of hemoglobin A1c for diagnosis of diabetes for children. 09/05/2024 07:38 AM 7.2 See comment % Final LDLCALC Date/Time Value Ref Range Status 07/15/2025 06:34 AM 76 <=99 mg/dL Final Comment: Near Borderline AGE Desirable Optimal High High Very High 0-19 Y 0 - 109 --- 110-129 >/= 130 ---- 20-24 Y 0 - 119 --- 120-159 >/= 160 ---- >24 Y 0 - 99 100-129 130-159 160-189 >/=190 LDL Cholesterol is calculated using the Friedewald equation. 09/26/2024 07:54 AM 42 <=99 mg/dL Final Comment: Near Borderline AGE Desirable Optimal High High Very High 0-19 Y 0 - 109 --- 110-129 >/= 130 ---- 20-24 Y 0 - 119 --- 120-159 >/= 160 ---- >24 Y 0 - 99 100-129 130-159 160-189 >/=190 VLDL Date/Time Value Ref Range Status 07/15/2025 06:34 AM 31 0 - 40 mg/dL Final 09/26/2024 07:54 AM 60 0 - 40 mg/dL Final 03/29/2022 07:54 AM SEE COMMENT 0 - 40 mg/dL Final Comment: Unable to calculate VLDL. 03/29/2020 08:37 AM SEE COMMENT 0 - 40 mg/dL Final Comment: Unable to calculate VLDL. Last I/O: I/O last 3 completed shifts: In: 480 (4.4 mL/kg) [P.O.:480] Out: 2225 (20.5 mL/kg) [Urine:2225 (0.6 mL/kg/hr)] Weight: 108.5 kg Past Cardiology Tests (Last 3 Years): EKG: ECG 12 lead daily 07/14/2025 (Preliminary) ECG 12 lead daily 07/13/2025 (Preliminary) ECG 12 lead 07/13/2025 ECG 12 Lead 03/05/2025 ECG 12 lead 03/04/2025 ECG 12 lead 03/04/2025 ECG 12 lead STAT 01/19/2025 Electrocardiogram 12 Lead 01/19/2025 ECG 12 lead (Clinic Performed) 12/08/2024 ECG 12 lead ECG 12 lead 05/29/2024 Echo: Transthoracic Echo (TTE) Limited 07/14/2025 Transthoracic Echo (TTE) Limited 07/13/2025 Transthoracic Echo (TTE) Complete 10/20/2024 Ejection Fractions: EF Date/Time Value Ref Range Status 07/14/2025 03:18 PM 62 % 10/20/2024 07:19 AM 67 % Cath: Cardiac Catheterization Procedure 07/13/2025 Cardiac Catheterization Procedure 01/19/2025 Stress Test: No results found for this or any previous visit from the past 1095 days. Cardiac Imaging: No results found for this or any previous visit from the past 1095 days. Inpatient Medications: Scheduled Medications[1] PRN Medications[2] Continuous Medications[3] Physical Exam: General: NAD, lying in bed Skin: warm and dry Head/ neck: no JVD seen at 90 degrees Cardiac: RRR, S1, S2 Pulm: CTAB, room air GI: soft, nontender Extremities: no LE edema Neuro: expressive aphasia Psych: agitated at times Assessment/Plan Kitty Vergara is a 85 y.o. male with a PMH of BPH, GERD, CKD stage 4, DMII hgAIc 6.6, CAD s/p LHC/RHC with PCI- 01/19/25, on Plavix and ASA 81mg, bardycardia, and severe non-rheumatic aortic stenosis. Pt presented on 07/13/2025 for elective TAVR. Overnight on 07/14/25 BAT called for abnormal speech and AMS concerning for stroke. Transferred to I service for management. TAVR 07/14 - TTE 07/14 EF 62%. normal aortic valve prosthesis structure and function. No WMA. Compared with study dated 07/13/2025, the patient is now s/p 34 mm Evolut Fx+ TAVR with reduction in aortic gradients. - CXR 07/14 Mild pulmonary vascular congestion compared to the previous study. - 07/15 Home bumex dose is 0.5, increased to 1mg on 07/13. Lowered back to 0.5 since he had confusion and taking less PO intake today. - Single antiplatelet for life is recommended post tavr but given with pt h xof PCI 01/19/25 pt will need ASA and Plavix until next year 01/19/26 Acute Stroke 07/14 - expressive aphasia - CT head and CTA head/neck which did not demonstrate any new stroke or any large vessel occlusion. - Carodis with Left greater than right with stenosis of the distal left common carotid artery measuring up to approximately 60-65%. Nonspecific white matter changes most likely represent small-vessel ischemic disease in a patient of this age. No evidence of acute cortical infarct, mass effect, or ICH. There are areas of encephalomalacia in the cerebellum which could reflect remote infarcts. - MRI brain 07/14 scattered areas of acute to early subacute infarction within the cerebral hemispheres bilaterally left greater than right as well as within the left cerebellar hemisphere as described above. The dominant area of acute to early subacute infarction is identified within the left temporoparietal region. The above findings are superimposed upon moderate brain parenchymal volume loss. There are scattered as well as more patchy and confluent nonspecific white matter changes again noted within cerebral hemispheres bilaterally as well as ill-defined increased signal on the FLAIR and T2 images overlying the brainstem which while nonspecific, given the patient's age, likely represent sequelae of more remote small-vessel ischemic change. Additional small foci of bright signal on the T2 images are identified within the subinsular regions, basal ganglia, and thalami bilaterally suggesting incidental mildly prominent perivascular spaces and/or scattered more remote lacunar infarctions.Scattered areas of encephalomalacia are identified within the cerebellum as well as along the posterior right occipital lobe. - Neuro consulted, no objection to DAPT, defer to primary. Follow up stroke clinic (requested), continue speech therapy. Signed off - PT/OT - 07/15 Combative, required haldol. - 07/16 Psych consulted for agitation mgmt - Hx fall day of TAVR, slipped off chair in kitchen and landed on buttocks. No trauma. -07/17--Transferred to [facility] per Psychiatry for goal to liberate patient from sitter/restraints (Will remain primary w/ co-management ) CKD Stage 4 - Cr today 2.24 (2.52, 2.53) - Baseline 2-2.2 - 07/15 Reduce bumex back to home dose of 0.5 CAD HLP - s/p PCI to prox-mid LAD using [address] Jessie Fay - Single antiplatelet for life is recommended post tavr but given with pt h xof PCI 01/19/25 pt will need ASA and Plavix until next year 01/19/26 - lipid panel ordered per neuro request ->HDL 35.4, LDL 76,Trigs 154 - Allergy to statin, continue zetia HTN - Pt with SBP wolf 144-167 - Blood pressure goals: avoid hypotension SBP <100 that could worsen cerebral perfusion, permissive HTN - Continue amlodipine 2.5mg daily-07/18 Increased to 5 mg DM - HgbA1C 6.6 02/2025 - (7.0) rechecked HgbA1C per neuro request - Lantus 10u+SS - 07/19 persistent hyperglycemia- increased Glargine from 10 to 14 units nightly (home dose 19 units nightly) Urinary Retention BPH - Hx ureteroscopy, cysto with retrograde pyelogram and bladder lesion ablation 10/28/24. Cysto showed severe bladder trabeculation, no mass. Prostate enlargement. - Hx requiring de oliveira for 2 months, was on flomax and proscar - Hx cystoscopy showed severe bladder trabeculation, no mass, prostate enlargement S/P Endoscopic Anatomical Prostate Enucleation ~ HoLEP 03/30/25 with improvement in emptying - 07/15 Patient wants to urinate out of bed, for safety reasons kept in bed, unable to follow command to urinate in urinal. Became agitated. straight cath Q shift PRN urine >400 on bladder scan - 07/16 De Oliveira placed for continued need of straight cath (rec only 1/2 inflating balloon to decrease risk of potential injury . - 07/17-Good UO via de oliveira. Started Flomax 0.4 mg daily DVT ppx:heparin subcutaneous DISPO: PT/OT and speech & PMR eval->rec SNF w/ goal to [place] Code Status: Full Code All labs, vital signs, tests & imaging results, and medications were reviewed. Seen and discussed with Dr. Ady Crane, DIESEL SERVICE APPRENTICE-MINE ENGINEERING SUPERVISOR [1] Scheduled medications Medication Dose Route Frequency amLODIPine 5 mg oral Daily aspirin 81 mg oral Daily bisacodyl 5 mg oral Nightly bumetanide 0.5 mg oral Daily clopidogrel 75 mg oral Daily docusate sodium 100 mg oral BID ezetimibe 10 mg oral Daily gabapentin 300 mg oral BID heparin (porcine) 5,000 Units subcutaneous q8h insulin glargine 10 Units subcutaneous Nightly insulin lispro 0-10 Units subcutaneous TID AC OLANZapine 2.5 mg oral Nightly pantoprazole 40 mg oral Daily before breakfast Or pantoprazole 40 mg intravenous Daily before breakfast perflutren lipid microspheres 0.5-10 mL of dilution intravenous Once in imaging tamsulosin 0.4 mg oral Daily [2] PRN medications Medication acetaminophen Or acetaminophen Or acetaminophen benzocaine-menthol dextrose dextrose glucagon glucagon lidocaine-epinephrine melatonin OLANZapine ondansetron Or ondansetron oxygen phenoL prochlorperazine Or prochlorperazine Or prochlorperazine traMADol [3] Continuous Medications Medication Dose Last Rate Cosigned by Kapil Garsia MD at 07/19/2025 3:15 PM EDT Associated attestation - Kapil Garsia MD - 07/19/2025 3:15 PM EDT This is a shared visit. I have reviewed the Advanced Practice Provider's encounter note, approve the Advanced Practice Provider's documentation, and provide the following additional information from my personal encounter. Please see my progress note from today for additional details. Kapil Garsia MD [facility] Attending Shared Visit Note This is a shared visit. Please see Advanced Practice Provider's encounter note for additional details. Briefly, 85M from [place], [place] with severe s/p TAVR 07/13 complicated by nola-procedural embolic strokes He has a history of HTN, HLD, DM2, CKD4, CAD s/p PCI 01/19/25, severe , gout, OA, obesity, BPH. Admitted 07/13/25 post TAVR. Develop aphasia evening 07/13 post-procedure. BAT called. CT/CTA 07/14 without LVO or ICH. MRI brain showed acute to subacute embolic infarcts L>M hemispheres and left cerebellum consistent with nola-procedural cardioembolism. Course complicated by agitation and delirium requiring antipsychotics and De Oliveira for urinary retention. Transferred 07/17 to [facility] for co-management with psychiatry to facilitate restraint/sitter wean and behavioral stabilization. Exam: eating in bed with family providing redirection. De Oliveira in place. Multiple bruises. Not oriented. # Ischemic stroke post-TAVR, embolic pattern MRI 07/14. Stroke recovery, neuro recs: # Agitation delirium. dysphagia risk: safety monitoring, psych recs appreciated. PT/OT/speech/PM&R. [facility] transfer. Sitter PRN # s/p TAVR Evolut FX+34 mm 07/13/25 with transient conduction changes now LBBB 1deg AVB # CAD s/p PCI 01/19/25 LAD WILLIE x2: DAPT # CKD4 baseline Cr ~2, last Cr/GFR: 2.: CTM # HTN: Amlodipine increased for BP control r # Urinary retention: de oliveira in place. # Dispo: Not medically ready. Barriers include neuro recovery/agitation. Needs to be sitter free >24 hours Kapil Garsia MD Assessment & Plan Nonrheumatic aortic (valve) stenosis Mixed level of activity delirium due to multiple etiologies, persistent BPH (benign prostatic hyperplasia) Hypertension Type 2 diabetes mellitus with chronic kidney disease, with long-term current use of insulin (Multi) Urinary retention Chronic kidney disease (CKD), stage IV (severe) (Multi) S/P TAVR (transcatheter aortic valve replacement) Objective Admit Date: 07/13/2025 Hospital Length of Stay: 6 Home: [facility] [id number] MEDICATIONS Infusions: Scheduled: amLODIPine, 5 mg, Daily aspirin, 81 mg, Daily bisacodyl, 5 mg, Nightly bumetanide, 0.5 mg, Daily clopidogrel, 75 mg, Daily docusate sodium, 100 mg, BID ezetimibe, 10 mg, Daily gabapentin, 300 mg, BID heparin (porcine), 5,000 Units, q8h insulin glargine, 10 Units, Nightly insulin lispro, 0-10 Units, TID AC OLANZapine, 2.5 mg, Nightly pantoprazole, 40 mg, Daily before breakfast Or pantoprazole, 40 mg, Daily before breakfast perflutren lipid microspheres, 0.5-10 mL of dilution, Once in imaging tamsulosin, 0.4 mg, Daily PRN: acetaminophen, 650 mg, q6h PRN Or acetaminophen, 650 mg, q6h PRN Or acetaminophen, 650 mg, q6h PRN benzocaine-menthol, 1 lozenge, q2h PRN dextrose, 12.5 g, q15 min PRN dextrose, 25 g, q15 min PRN glucagon, 1 mg, q15 min PRN glucagon, 1 mg, q15 min PRN lidocaine-epinephrine, 5 mL, Once PRN melatonin, 6 mg, Nightly PRN OLANZapine, 2.5 mg, BID PRN ondansetron, 4 mg, q8h PRN Or ondansetron, 4 mg, q8h PRN oxygen, , Continuous - O2/gases phenoL, 1 spray, q2 min PRN prochlorperazine, 10 mg, q6h PRN Or prochlorperazine, 10 mg, q6h PRN Or prochlorperazine, 25 mg, q12h PRN traMADol, 50 mg, q6h PRN Prior to Admission Meds: Prescriptions Prior to Admission[1] Vitals: 07/19/2025 7:28 AM 07/19/2025 3:07 AM 07/19/2025 12:09 AM 07/18/2025 7:32 PM 07/18/2025 5:51 PM 07/18/2025 4:10 PM 07/18/2025 12:16 PM Vitals Systolic 147 150 116 137 130 138 Diastolic 79 69 86 67 69 70 BP Location Left arm Left arm Left arm Heart Rate 81 75 74 79 83 72 Temp 36.9 C (98.4 F) 36.7 C (98.1 F) 36.5 C (97.7 F) 37 C (98.6 F) 36.9 C (98.4 F) -- 36.6 C (97.9 F) Resp 18 16 16 16 16 18 Wt Readings from Last 5 Encounters: 07/15/25 109 kg (239 lb 3.2 oz) 07/01/25 105 kg (232 lb) 04/21/25 104 kg (229 lb) 04/04/25 (P) 105 kg (232 lb) 03/26/25 107 kg (235 lb 14.3 oz) Intake/Output Summary (Last 24 hours) at 07/19/2025 0839 Last data filed at 07/19/2025 0200 Gross per 24 hour Intake 480 ml Output 825 ml Net -345 ml CHEST: Unlabored, Clear CV: Normal sinus rhythm NEURO: RASS: Alert and calm CAM: LOC: Alert Cognition: Impulsive, Poor safety awareness, Poor attention/concentration GCS: 13 DATA: CMP: Recent Labs 07/18/25 0833 07/17/25 0904 07/16/25 0848 07/15/25 0634 07/14/25 0518 07/13/25 2009 07/09/25 0925 03/09/25 0832 03/05/25 0420 03/04/25 1310 01/12/25 0752 10/20/24 0509 10/18/24 1557 09/26/24 0754 NA 138 139 138 138 138 139 140 139 < > 137 < > 135* < > 139 K 4.0 4.4 3.8 3.8 3.9 3.4* 4.1 4.4 < > 4.5 < > 4.9 < > 3.9 CL 103 104 103 102 103 104 103 105 < > 106 < > 107 < > 101 CO2 28 24 24 23 24 23 24 24 < > 25 < > 21 < > 29 ANIONGAP 11 15 15 17 15 15 13 10 < > 11 < > 12 < > 13 BUN 36* 33* 35* 37* 33* 35* 32* 42* < > 41* < > 35* < > 37* CREATININE 2.52* 2.53* 2.77* 2.68* 2.01* 2.27* 2.47* 2.25* < > 2.31* < > 2.29* < > 2.63* EGFR 24* 24* 22* 23* 32* 28* 25* 28* < > 27* < > 27* < > 23* MG -- -- 2.17 2.11 2.12 2.14 -- 2.4 -- 2.00 -- 1.45* -- 1.70 < > = values in this interval not displayed. Recent Labs 03/09/25 0832 03/04/25 1310 10/20/24 0509 10/18/24 1557 09/26/24 0754 09/05/24 0738 05/29/24 1231 05/08/24 0733 02/04/24 0816 ALBUMIN 3.8 3.9 3.2* 3.4 4.1 3.8 4.0 4.1 3.8 ALT 12 12 -- 7* 7* 9* 9* 7* 9* AST 18 18 -- 12 11 12 12 10 11 BILITOT 0.7 0.7 -- 0.5 0.7 0.8 0.7 0.9 0.6 LIPASE -- -- -- 23 -- -- -- -- -- CBC: Recent Labs 07/19/25 0721 07/18/25 0833 07/17/25 0904 07/16/25 0848 07/15/25 0634 07/14/25 0518 07/13/25200807/09/25 0925 WBC 10.9 11.7* 9.3 9.6 10.1 9.5 10.9 8.9 HGB 11.4* 11.4* 12.1* 11.5* 11.1* 11.1* 11.3* 12.7* HCT 35.6* 34.4* 37.5* 36.4* 35.9* 35.3* 35.4* 39.2 PLT 198 196 170 163 147* 146* 142* 167 MCV 96 90 95 95 96 95 94 93.3 COAG: Recent Labs 07/16/25 0848 07/15/25 0634 07/14/25 0518 07/13/25200807/09/25 0925 INR 1.1 1.2* 1.1 1.2* 1.1 ABO: Recent Labs 07/13/25 1451 ABO A HEME/ENDO: Recent Labs 07/15/25 0634 03/09/25 0832 03/04/25 1412 10/19/24 0437 09/26/24 0754 09/05/24 0738 05/08/24 0733 FERRITIN -- -- -- 440* -- -- -- IRONSAT -- -- -- 11* -- -- -- TSH -- 3.59 2.51 2.35 5.03* -- -- HGBA1C 7.0* 6.6* -- -- -- 7.2* 7.3* CARDIAC: Recent Labs 03/04/25 1412 03/04/25 1310 10/18/24 1557 05/29/24 1231 03/28/23 1150 03/28/23 1022 TROPHS 11 13 11 10 12 14 BNP -- -- 321* -- -- -- Recent Labs 07/15/25 0634 09/26/24 0754 03/29/22 0754 03/29/20 0837 CHOL 142 139 172 185 LDLF -- -- - - LDLCALC 76 42 -- -- HDL 35.4 37.0 36.0* 32.0* TRIG 154* 299* 529* 607* TOX:No results for input(s): "AMPHETAMINE", "BENZO", "CANNABINOID", "COCAI", "FENTANYL", "OPIATE", "OXYCODONE", "PCP" in the last 39426 hours. No lab exists for component: BARBSCRUR MICRO: Recent Labs 05/23/22 1019 CRP 0.43 No results found for the last 90 days. EKG: Recent Labs 07/15/25204907/14/25 0530 07/13/25 1950 ATRRATE 79 70 70 VENTRATE 87 70 70 PRINT 296 208 296 QRSDUR 136 148 158 QTCFRED 477 499 528 QTCCALCB 507 511 542 Encounter Date: 07/13/25 ECG 12 lead daily Result Value Ventricular Rate 87 Atrial Rate 79 TX Interval 296 QRS Duration 136 QT Interval 422 QTC Calculation(Bazett) 507 P Goltry 97 R Goltry 11 T Goltry 178 QRS Count 14 Q Onset 209 P Onset 61 P Offset 120 T Offset 420 QTC Fredericia 477 Narrative Sinus rhythm with 1st degree AV block with occasional Premature ventricular complexes and Premature atrial complexes Left bundle branch block Abnormal ECG When compared with ECG of 14-JUL-2025 05:26, Sinus rhythm has replaced Ectopic atrial rhythm Echocardiogram: Recent Labs 07/14/25 1518 10/20/24 0719 EF 62 67 LVIDD -- 4.65 RV -- 45.5 TAPSE -- 2.1 Transthoracic Echo (TTE) Complete With Contrast 10/20/2024 [place] [address] [id number], TRANSTHORACIC ECHOCARDIOGRAM REPORT Patient Name: KITTY Casey JAI Reading Physician: [id number] Santiago Marquez MD Study Date: 10/20/2024 Ordering Provider: [id number] ZANA MATHEWS MRN/PID: [id number] Fellow: Nurse: Ayaka Hernandez RN Date of /Age: 1007/06/1940 Manager Garden: Mary galeano RVT, RCS Gender Assigned at M Additional Staff: : Height: 177.80 cm Admit Date: 10/18/2024 Weight: 104.33 kg Admission Status: Inpatient - Routine BSA / BMI: 2.22 m2 / 33.00 [address] Blood Pressure: 160 /86 mmHg Study Type: TRANSTHORACIC ECHO (TTE) COMPLETE Diagnosis/ICD: Bradycardia, unspecified-R00.1; Unspecified atrial fibrillation-I48.91 Indication: Francisco,AFib CPT Codes: Echo Complete w Full Doppler-[id number] Patient History: Pertinent History: Previous echo 03-28-23. Study Detail: The following Echo studies were performed: 2D, M-Mode, Doppler and color flow. Definity used as a contrast agent for endocardial border definition. A bubble study was not performed. The patient was awake. PHYSICIAN INTERPRETATION: Left Ventricle: Left ventricular ejection fraction is normal, calculated by Villalobos's biplane at 67%. The patient is in atrial fibrillation which may influence the estimate of left ventricular function and transvalvular flows. There are no regional wall motion abnormalities. The left ventricular cavity size is normal. There is mild increased septal and mildly increased posterior left ventricular wall thickness. There is left ventricular concentric remodeling. Spectral Doppler shows a Grade II (pseudonormal pattern) of left ventricular diastolic filling with an elevated left atrial pressure. Left Atrium: The left atrium is normal in size. A bubble study using agitated saline was not performed. Right Ventricle: The right ventricle is normal in size. There is normal right ventricular global systolic function. Right Atrium: The right atrium is normal in size. Aortic Valve: The aortic valve is trileaflet. There is evidence of moderate to severe aortic valve stenosis. The aortic valve dimensionless index is 0.23. There is no evidence of aortic valve regurgitation. The peak instantaneous gradient of the aortic valve is 73 mmHg. The mean gradient of the aortic valve is 44 mmHg. Mitral Valve: The mitral valve is normal in structure. There is mild mitral valve regurgitation. Tricuspid Valve: The tricuspid valve is structurally normal. There is trace tricuspid regurgitation. Pulmonic Valve: The pulmonic valve is not well visualized. There is no indication of pulmonic valve regurgitation. Pericardium: No pericardial effusion noted. Aorta: The aortic root is normal. CONCLUSIONS: 1. Poorly visualized anatomical structures due to suboptimal image quality. 2. Left ventricular ejection fraction is normal, calculated by Villalobos's biplane at 67%. 3. Spectral Doppler shows a Grade II (pseudonormal pattern) of left ventricular diastolic filling with an elevated left atrial pressure. 4. There is normal right ventricular global systolic function. 5. Moderate to severe aortic valve stenosis. 6. Compared to prior TTE dated 03/28/2023 - aortic stenosis has progressed and now appears to be moderate-severe. 7. The patient is in atrial fibrillation which may influence the estimate of left ventricular function and transvalvular flows. QUANTITATIVE DATA SUMMARY: 2D MEASUREMENTS: Normal Ranges: Ao Root d: 3.10 cm (2.0-3.7cm) LAs: 3.70 cm (2.7-4.0cm) IVSd: 1.35 cm (0.6-1.1cm) LVPWd: 1.38 cm (0.6-1.1cm) LVIDd: 4.65 cm (3.9-5.9cm) LVIDs: 3.06 cm LV Mass Index: 113.5 g/m2 LV % FS 34.2 % LA VOLUME: Normal Ranges: LA Vol A4C: 31.2 ml (22+/-6mL/m2) LA Vol A2C: 54.6 ml LA Vol BP: 43.6 ml LA Vol Index A4C: 14.1ml/m2 LA Vol Index A2C: 24.7 ml/m2 LA Vol Index BP: 19.7 ml/m2 LA Area A4C: 14.7 cm2 LA Area A2C: 18.4 cm2 LA Major Goltry A4C: 5.9 cm LA Major Goltry A2C: 5.3 cm LA Volume Index: 24.0 ml/m2 LA Vol A4C: 31.4 ml LA Vol A2C: 53.3 ml LA Vol Index BSA: 19.1 ml/m2 M-MODE MEASUREMENTS: Normal Ranges: AoV Exc: 0.90 cm (1.5-2.5cm) AORTA MEASUREMENTS: Normal Ranges: AoV Exc: 0.90 cm (1.5-2.5cm) LV SYSTOLIC FUNCTION BY 2D PLANIMETRY (MOD): Normal Ranges: EF-A4C View: 63 % (>=55%) EF-A2C View: 71 % EF-Biplane: 67 % LV EF Reported: 67 % LV DIASTOLIC FUNCTION: Normal Ranges: MV Peak E: 1.26 m/s (0.7-1.2 m/s) MV Peak A: 1.18 m/s (0.42-0.7 m/s) E/A Ratio: 1.07 (1.0-2.2) MV e' 0.089 m/s (>8.0) MV lateral e' 0.07 m/s MV medial e' 0.11 m/s E/e' Ratio: 14.21 (<8.0) MITRAL VALVE: Normal Ranges: MV DT: 289 msec (150-240msec) MITRAL INSUFFICIENCY: Normal Ranges: MR Vmax: 351.00 cm/s AORTIC VALVE: Normal Ranges: AoV Vmax: 4.26 m/s (<=1.7m/s) AoV Peak P.6 mmHg (<20mmHg) AoV Mean P.0 mmHg (1.7-11.5mmHg) LVOT Max Clyde: 1.10 m/s (<=1.1m/s) AoV VTI: 104.00 cm (18-25cm) LVOT VTI: 23.70 cm LVOT Diameter: 2.20 cm (1.8-2.4cm) AoV Area, VTI: 0.87 cm2 (2.5-5.5cm2) AoV Area,Vmax: 0.98 cm2 (2.5-4.5cm2) AoV Dimensionless Index: 0.23 RIGHT VENTRICLE: RV Basal 3.65 cm RV Mid 2.11 cm RV Major 6.9 cm TAPSE: 20.9 mm TRICUSPID VALVE/RVSP: Normal Ranges: Peak TR Velocity: 3.26 m/s RV Syst Pressure: 46 mmHg (< 30mmHg) PULMONIC VALVE: Normal Ranges: PV Accel Time: 106 msec (>120ms) PV Max Clyde: 2.3 m/s (0.6-0.9m/s) PV Max P.3 mmHg [id number] Santiago Jimmy MD Electronically signed on 10/20/2024 at 9:11:55 AM Final Coronary Angiography: TAVR (Transcatheter AV Replacement), TAVR (Transcatheter AV Replacement) 07/13/2025 [facility], Yield Improvement Engineer, [address] [place] [address] Cardiovascular Catheterization Report Patient Name: KITTY VERGARA Performing Physician: [id number] Barbosa MD Study Date: 07/13/2025 Verifying Physician: Artem Barbosa MD MRN/PID: [id number] Qa Specialist/Co-Scrub: Ordering Provider: [id number] BARBOSA Date of 1940 Qa Specialist: /Age: years Gender: M Fellow: [id number] Camila Salinas MD Surgeon: Omar Howell MD Study: GURJIT - Transcatheter Aortic Valve Implantation Indications: Severe aortic stenosis. Informed Consent: Benefits, risks, and alternatives discussed with patient or authorized national sales representative and consent was obtained. Transcatheter Aortic Valve Replacement (TAVR): The right femoral artery was accessed using the transfemoral method. A 6 Fr sheath was inserted followed by the deployment of 2 Proglides. 18 F Sentrant. The left femoral artery was accessed percutaneously and a 6 Gabonese contralateral sheath was placed. A 6 Gabonese temporary pacemaker was inserted through the right jugular vein and advanced to the right ventricular apex. Adequate pacing thresholds were obtained. After crossing the stenotic aortic valve, balloon aortic valvuloplasty was performed with True Dilation 23. Evolut FX+ 34 valve was successfully deployed under rapid ventricular pacing at 160 BPM. Transthoracic echo performed post valve deployment revealed no mitral insufficiency and no central aortic insufficiency and trace/trivial paravalvular aortic insufficiency. No device related events. No bleeding events occurred during the procedure. No vascular access complications were revealed. Access site was closed using 2 ProGlide devices. Hemostasis was achieved in the left femoral artery using a ProGlide device. Temporary pacing wire was sutured in place. Hemo Personnel: + +---------+ Name Duty + +---------+ Dorothy Barbosa MD, MD 1 + +---------+ Fluoroscopy Time: + +- ------+ Bedside Procedure Fluoro Dose: n/a mGy + +- ------+ Hemodynamic Pressures: +----+ + + + +---- ---+---------+ Site Date Time Phase Name Systolic mmHg Diastolic mmHg ED mmHg Mean mmHg +----+ + + + +---- ---+---------+ AO 07/13/2025 Rest 198 75 125 6:13:05 PM +----+ + + + +---- ---+---------+ AO 07/13/2025 Rest 184 84 116 6:28:09 PM +----+ + + + +---- ---+---------+ LV 07/13/2025 Rest 227 1 20 6:28:09 PM +----+ + + + +---- ---+---------+ AO 07/13/2025 Rest 191 72 112 6:28:17 PM +----+ + + + +---- ---+---------+ LV 07/13/2025 Rest 225 1 26 6:28:17 PM +----+ + + + +---- ---+---------+ Complications: No vascular access complications were revealed. No bleeding events occurred during the procedure. No device related events. Cardiac Cath Post Procedure Notes: Post Procedure Diagnosis: Successful GURJIT. Blood Loss: Estimated blood loss during the procedure was 10 mls. Specimens Removed: Number of specimen(s) removed: none. CONCLUSIONS: 1. Successful GURJIT using a Evolut FX+ 34. 2. ASA indefinately. 3. Patient was enrolled in a research study and data was included in the TVT Registry. ICD 10 Codes: Nonrheumatic aortic (valve) stenosis-I35.0 CPT Codes: GURJIT Perc,femoral-17259.62 [id number] Dorothy Barbosa MD Performing Physician Final Impression CONCLUSIONS: 1. Successful GURJIT using a Evolut FX+ 34. 2. ASA indefinately. 3. Patient was enrolled in a research study and data was included in the TVT Registry. Right Heart Cath: No results found for this or any previous visit from the past 1800 days. Cardiac Scoring: No results found for this or any previous visit from the past 1800 days. Cardiac MRI: No results found for this or any previous visit from the past 1800 days. Nuclear:No results found for this or any previous visit from the past 1800 days. Metabolic Stress: No results found for this or any previous visit from the past 1800 days. Imaging Cardiac Catheterization Procedure Result Date: 07/15/2025 CONCLUSIONS: 1. Successful GURJIT using a Evolut FX+ 34. 2. ASA indefinately. 3. Patient was enrolled in a research study and data was included in the TVT Registry. XR chest 1 view Result Date: 07/15/2025 1. Mild pulmonary vascular congestion compared to the previous study. Signed by: Darinel Zee 07/15/2025 8:41 AM Dictation workstation: [id number] MR brain wo IV contrast Result Date: 07/15/2025 There are MRI findings compatible with scattered areas of acute to early subacute infarction within the cerebral hemispheres bilaterally left greater than right as well as within the left cerebellar hemisphere as described above. The dominant area of acute to early subacute infarction is identified within the left temporoparietal region. The above findings are superimposed upon moderate brain parenchymal volume loss. There are scattered as well as more patchy and confluent nonspecific white matter changes again noted within cerebral hemispheres bilaterally as well as ill-defined increased signal on the FLAIR and T2 images overlying the brainstem which while nonspecific, given the patient's age, likely represent sequelae of more remote small-vessel ischemic change. Additional small foci of bright signal on the T2 images are identified within the subinsular regions, basal ganglia, and thalami bilaterally suggesting incidental mildly prominent perivascular spaces and/or scattered more remote lacunar infarctions. Scattered areas of encephalomalacia are identified within the cerebellum as well as along the posterior right occipital lobe. MACRO: Critical Finding: See findings. Notification was initiated on 07/15/2025 at 6:48 am by Matilde Melvin. (-OCF-) Instructions: See Findings. Signed by: Matilde Melvin 07/15/2025 6:48 AM Dictation workstation: [id number] Transthoracic Echo (TTE) Limited Result Date: 07/14/2025 CONCLUSIONS: 1. Poorly visualized anatomical structures due to suboptimal image quality. 2. Left ventricular ejection fraction is normal calculated by Villalobos's biplane at 62%. 3. Echo findings are consistent with normal aortic valve prosthesis structure and function. 4. Unable to determine right ventricular systolic function. 5. No regional left ventricular wall motion abnormalities. 6. Compared with study dated 07/13/2025, the patient is now s/p 34 mm Evolut Fx+ TAVR with reduction in aortic gradients. Transthoracic Echo (TTE) Limited Result Date: 07/14/2025 CONCLUSIONS: 1. Poorly visualized anatomical structures due to suboptimal image quality. 2. The left ventricle was not well visualized. The left ventricular ejection fraction could not be measured. 3. LV appear to have grossly normal systolic function without obvious regional wall motion abnormalities though not well seen. Unable to estimate LVEF. 4. Unable to determine right ventricular systolic function. 5. There is moderate mitral annular calcification. 6. Baseline- AV not well seen though appears to be moderate to severely calcified/thickened with gradients of 41/22mmHg and DI of 0.33 with no AI. The DI is consistent with moderate though gradients are lower than expected for that degree of . Proceeded to TAVR. 7. S/p 34mm Medtronic Evolut TAVR with gradients of 6.9/4mmHg and no obvious AI. 8. Compared with study dated 10/20/2024, [facility], the prior AV gradients were 73/44mmHg with DI of 0.23 which is consistent with severe and there was no AI at that time. Today's gradients are lower than on prior exam likely due to technically difficult images with limited interrogation in that the LV systolic function appears to be preserved today. Prior LVEF was 67%. CT brain attack head wo IV contrast Result Date: 07/14/2025 1. No proximal large branch vessel cutoff on CTA of the head. 2. Atherosclerotic changes most significantly involving the common carotid arteries, left greater than right with stenosis of the distal left common carotid artery measuring up to approximately 60-65% relative to the caliber of the vessel more proximally. There is also luminal irregularity at least mild narrowing of the distal V2/V3 segment of the left vertebral artery. 3. Nonspecific white matter changes most likely represent small-vessel ischemic disease in a patient of this age. No definitive evidence of acute cortical infarct, mass effect, or acute intracranial hemorrhage. There are areas of encephalomalacia in the cerebellum which could reflect remote infarcts. MRI with diffusion-weighted imaging would be a more sensitive means of assessing for acute ischemic injury. 4. Diffuse parenchymal volume loss. 5. Enlarged and heterogenous appearance of the right thyroid lobe with a focal lesion measuring up to 3.5 cm. Recommend correlation with non-emergent thyroid ultrasound. 6. Additional findings as above. I personally reviewed the images/study and I agree with the findings as stated by Jeff Butler, PGY-3. MACRO: Jeff Butler discussed the significance and urgency of this critical finding in person with neurology on 07/14/2025 at 2:30 a.m.. (-RCF-) Findings: See findings. Incidental Finding: There are few small hypoattenuating nodules measuring equal to or greater than 1.5 cm in the thyroid gland. (-YCF-) Instructions: Further evaluation with nonemergent thyroid ultrasound. (Managing Incidental Thyroid Nodules Detected on Imaging: White Paper of the ACR Incidental Thyroid Findings Committee. aMriela Sutton. et al. Journal of the [place] [employer],Volume 12, Issue 2, 143 - 150.) [email or web address] Signed by: Angela Doyle 07/14/2025 6:06 AM Dictation workstation: [id number] CT brain attack angio head and neck W and WO IV contrast Result Date: 07/14/2025 1. No proximal large branch vessel cutoff on CTA of the head. 2. Atherosclerotic changes most significantly involving the common carotid arteries, left greater than right with stenosis of the distal left common carotid artery measuring up to approximately 60-65% relative to the caliber of the vessel more proximally. There is also luminal irregularity at least mild narrowing of the distal V2/V3 segment of the left vertebral artery. 3. Nonspecific white matter changes most likely represent small-vessel ischemic disease in a patient of this age. No definitive evidence of acute cortical infarct, mass effect, or acute intracranial hemorrhage. There are areas of encephalomalacia in the cerebellum which could reflect remote infarcts. MRI with diffusion-weighted imaging would be a more sensitive means of assessing for acute ischemic injury. 4. Diffuse parenchymal volume loss. 5. Enlarged and heterogenous appearance of the right thyroid lobe with a focal lesion measuring up to 3.5 cm. Recommend correlation with non-emergent thyroid ultrasound. 6. Additional findings as above. I personally reviewed the images/study and I agree with the findings as stated by Jeff Butler, PGY-3. MACRO: Jeff Butler discussed the significance and urgency of this critical finding in person with neurology on 07/14/2025 at 2:30 a.m.. (-RCF-) Findings: See findings. Incidental Finding: There are few small hypoattenuating nodules measuring equal to or greater than 1.5 cm in the thyroid gland. (-YCF-) Instructions: Further evaluation with nonemergent thyroid ultrasound. (Managing Incidental Thyroid Nodules Detected on Imaging: White Paper of the ACR Incidental Thyroid Findings Committee. Mariela Sutton. et al. Journal of the [place] [employer],Volume 12, Issue 2, 143 - 150.) [email or web address] Signed by: Angela Doyle 07/14/2025 6:06 AM Dictation workstation: [id number] Cardiology, Vascular, and Other Imaging ECG 12 lead daily Result Date: 07/18/2025 Sinus rhythm with occasional Premature ventricular complexes Left bundle branch block Abnormal ECG When compared with ECG of 13-JUL-2025 19:48, No significant change was found Confirmed by Adriana Flores ([id number]) on 07/18/2025 9:26:46 PM ECG 12 lead daily Result Date: 07/18/2025 Sinus rhythm with 1st degree AV block with occasional Premature ventricular complexes Left bundle branch block Abnormal ECG When compared with ECG of 13-JUL-2025 14:14, TX interval has increased Left bundle branch block is now Present Confirmed by Adriana Flores ([id number]) on 07/18/2025 9:15:56 PM ECG 12 lead daily Result Date: 07/16/2025 Sinus rhythm with 1st degree AV block with occasional Premature ventricular complexes and Premature atrial complexes Left bundle branch block Abnormal ECG When compared with ECG of 14-JUL-2025 05:26, Sinus rhythm has replaced Ectopic atrial rhythm Cardiac Catheterization Procedure Result Date: 07/15/2025 [facility], Yield Improvement Engineer, [address] [place] [address] Cardiovascular Catheterization Report Patient Name: KITTY VERGARA Performing Physician: [id number] Barbosa MD Study Date: 07/13/2025 Verifying Physician: Artem Barbosa MD MRN/PID: [id number] Qa Specialist/Co-Scrub: Ordering Provider: [id number] DOROTHY BARBOSA Date of 1940 Qa Specialist: /Age: years Gender: M Fellow: [id number] Camila Salinas MD Surgeon: Omar Howell MD Study: GURJIT - Transcatheter Aortic Valve Implantation Indications: Severe aortic stenosis. Informed Consent: Benefits, risks, and alternatives discussed with patient or authorized national sales representative and consent was obtained. Transcatheter Aortic Valve Replacement (TAVR): The right femoral artery was accessed using the transfemoral method. A 6 Fr sheath was inserted followed by the deployment of 2 Proglides. 18 F Sentrant. The left femoral artery was accessed percutaneously and a 6 Gabonese contralateral sheath was placed. A 6 Gabonese temporary pacemaker was inserted through the right jugular vein and advanced to the right ventricular apex. Adequate pacing thresholds were obtained. After crossing the stenotic aortic valve, balloon aortic valvuloplasty was performed with True Dilation 23. Evolut FX+ 34 valve was successfully deployed under rapid ventricular pacing at 160 BPM. Transthoracic echo performed post valve deployment revealed no mitral insufficiency and no central aortic insufficiency and trace/trivial paravalvular aortic insufficiency. No device related events. No bleeding events occurred during the procedure. No vascular access complications were revealed. Access site was closed using 2 ProGlide devices. Hemostasis was achieved in the left femoral artery using a ProGlide device. Temporary pacing wire was sutured in place. Hemo Personnel: + +---------+ Name Duty + +---------+ Dorothy Barbosa MD, MD 1 + +---------+ Fluoroscopy Time: + +- ------+ Bedside Procedure Fluoro Dose: n/a mGy + +- ------+ Hemodynamic Pressures: +----+ + + + +---- ---+---------+ Site Date Time Phase Name Systolic mmHg Diastolic mmHg ED mmHg Mean mmHg +----+ + + + +---- ---+---------+ AO 07/13/2025 Rest 198 75 125 6:13:05 PM +----+ + + + +---- ---+---------+ AO 07/13/2025 Rest 184 84 116 6:28:09 PM +----+ + + + +---- ---+---------+ LV 07/13/2025 Rest 227 1 20 6:28:09 PM +----+ + + + +---- ---+---------+ AO 07/13/2025 Rest 191 72 112 6:28:17 PM +----+ + + + +---- ---+---------+ LV 07/13/2025 Rest 225 1 26 6:28:17 PM +----+ + + + +---- ---+---------+ Complications: No vascular access complications were revealed. No bleeding events occurred during the procedure. No device related events. Cardiac Cath Post Procedure Notes: Post Procedure Diagnosis: Successful GURJIT. Blood Loss: Estimated blood loss during the procedure was 10 mls. Specimens Removed: Number of specimen(s) removed: none. CONCLUSIONS: 1. Successful GURJIT using a Evolut FX+ 34. 2. ASA indefinately. 3. Patient was enrolled in a research study and data was included in the TVT Registry. ICD 10 Codes: Nonrheumatic aortic (valve) stenosis-I35.0 CPT Codes: GURJIT Perc,femoral-88544.62 [id number] Dorothy Barbosa MD Performing Physician Final CONCLUSIONS: 1. Successful GURJIT using a Evolut FX+ 34. 2. ASA indefinately. 3. Patient was enrolled in a research study and data was included in the TVT Registry. Transthoracic Echo (TTE) Limited Result Date: 07/14/2025 [facility], [address] [place] [address] and TRANSTHORACIC ECHOCARDIOGRAM REPORT Patient Name: KITTY VERGARA Reading Physician: [id number] Marshall Avilez MD Study Date: 07/14/2025 Ordering Provider: [id number] JOSEF DIAS MRN/PID: [id number] Fellow: Nurse: Date of /Age: 1007/06/1940 Manager Garden: Fer galeano CAMILO Gender assigned at Additional Staff: : Height: 175.00 cm Admit Date: 07/13/2025 Weight: 103.00 kg Admission Status: Inpatient - Routine BSA / BMI: 2.18 m2 / 33.63 kg/m2 Blood Pressure: 164/71 mmHg Department Location: [place] [address] Study Type: TRANSTHORACIC ECHO (TTE) LIMITED Diagnosis/ICD: Encounter for other specified special examinations-Z01.89 Indication: S/P TAVR (transcatheter aortic valve replacement); CPT Code: Echo Limited-58026; Doppler Limited-13906; Color Doppler-16371 Patient History: Pertinent History: HTN, Hyperlipidemia, CAD and LE Edema. Bradycardia, GERD, CKD IV, Cardiac Stent. S/p TAVR-34mm Medtronic Evolut. Study Detail: The following Echo studies were performed: 2D, M-Mode, Doppler and color flow. Technically challenging study due to body habitus and patient lying in supine position. Unable to obtain subcostal view. PHYSICIAN INTERPRETATION: Left Ventricle: Left ventricular ejection fraction is normal calculated by Villalobos's biplane at 62%. There are no regional left ventricular wall motion abnormalities. The left ventricular cavity size is normal. Left ventricular diastolic filling was not assessed. Left Atrium: The left atrial size is normal. Right Ventricle: The right ventricle was not well visualized. Unable to determine right ventricular systolic function. Right Atrium: The right atrial size was not well visualized. Aortic Valve: There is a prosthetic aortic valve present. The aortic valve area by VTI is 1.77 cm with a peak velocity of 1.95 m/s. The peak and mean gradients are 15 mmHg and 9 mmHg, respectively with a dimensionless index of 0.56. Echo findings are consistent with normal aortic valve prosthesis structure and function. There is no evidence of aortic valve regurgitation. The patient is s/p 34 mm Evolut Fx+. Mitral Valve: The mitral valve is mildly thickened. There is trace mitral valve regurgitation. Tricuspid Valve: The tricuspid valve was not well visualized. Tricuspid regurgitation was not assessed. The right ventricular systolic pressure could not be estimated. Pulmonic Valve: The pulmonic valve is not well visualized. The pulmonic valve regurgitation was not well visualized. Pericardium: There is no pericardial effusion noted. There is a pericardial fat pad present. Aorta: The aortic root was not well visualized. The ascending aorta was not well visualized. Systemic Veins: The inferior vena cava was not well visualized, IVC inspiratory collapse is not well visualized. In comparison to the previous echocardiogram(s): Compared with study dated 07/13/2025, the patient is now s/p 34 mm Evolut Fx+ TAVR with reduction in aortic gradients. CONCLUSIONS: 1. Poorly visualized anatomical structures due to suboptimal image quality. 2. Left ventricular ejection fraction is normal calculated by Villalobos's biplane at 62%. 3. Echo findings are consistent with normal aortic valve prosthesis structure and function. 4. Unable to determine right ventricular systolic function. 5. No regional left ventricular wall motion abnormalities. 6. Compared with study dated 07/13/2025, the patient is now s/p 34 mm Evolut Fx+ TAVR with reduction in aortic gradients. QUANTITATIVE DATA SUMMARY: 2D MEASUREMENTS: Normal Ranges: LVEDV Index: 52 ml/m2 LV SYSTOLIC FUNCTION: Normal Ranges: EF-A4C View: 61 % (>=55%) EF-A2C View: 60 % EF-Biplane: 62 % LV EF Reported: 62 % AORTIC VALVE: Normal Ranges: AoV Vmax: 1.95 m/s (<=1.7m/s) AoV Peak P.2 mmHg (<20mmHg) AoV Mean P.0 mmHg (1.7-11.5mmHg) LVOT Max Clyde: 1.01 m/s (<=1.1m/s) AoV VTI: 39.30 cm (18-25cm) LVOT VTI: 22.20 cm LVOT Diameter: 2.00 cm (1.8-2.4cm) AoV Area, VTI: 1.77 cm2 (2.5-5.5cm2) AoV Area,Vmax: 1.63 cm2 (2.5-4.5cm2) AoV Dimensionless Index: 0.56 TRICUSPID VALVE/RVSP: Normal Ranges: Est. RA Pressure: 3 [id number] Marshall Avilez MD Electronically signed on 07/14/2025 at 10:27:47 PM Final CONCLUSIONS: 1. Poorly visualized anatomical structures due to suboptimal image quality. 2. Left ventricular ejection fraction is normal calculated by Villalobos's biplane at 62%. 3. Echo findings are consistent with normal aortic valve prosthesis structure and function. 4. Unable to determine right ventricular systolic function. 5. No regional left ventricular wall motion abnormalities. 6. Compared with study dated 07/13/2025, the patient is now s/p 34 mm Evolut Fx+ TAVR with reduction in aortic gradients. ECG 12 lead Result Date: 07/14/2025 Sinus rhythm with frequent Premature ventricular complexes Left ventricular hypertrophy with repolarization abnormality Abnormal ECG When compared with ECG of 05-MAR-2025 11:45, Premature ventricular complexes are now Present TX interval has decreased T wave inversion now evident in Inferior leads T wave inversion now evident in Anterolateral leads QT has shortened Confirmed by Felix Hernandez ([id number]) on 07/14/2025 9:40:02 AM Transthoracic Echo (TTE) Limited Result Date: 07/14/2025 TRANSTHORACIC ECHOCARDIOGRAM REPORT Patient Name: KITTY Walker Physician: [id number] Kenia Yoder MD Study Date: 07/13/2025 Ordering Provider: [id number] JOSEF DIAS MRN/PID: [id number] Fellow: Nurse: Date of /Age: 1007/06/1940 Manager Garden: Vinicio galeano [facility] Gender assigned at M Additional Staff: : Height: 177.80 cm Admit Date: Weight: 105.24 kg Admission Status: Inpatient - Routine BSA / BMI: 2.22 m2 / 33.29 kg/m2 Blood Pressure: 130/62 mmHg Department Location: [facility] Yield Improvement Engineer Study Type: TRANSTHORACIC ECHO (TTE) LIMITED Diagnosis/ICD: Nonrheumatic aortic (valve) stenosis-I35.0 Indication: TAVR Periprocedure CPT Code: Echo Limited-85832; Doppler Limited-45886; Color Doppler-01577 Patient History: Valve Disorders: Aortic Stenosis. Diabetes: Yes Pertinent History: HTN, Hyperlipidemia, CAD and LE Edema. Bradycardia, GERD, CKD IV, Cardiac Stent. Study Detail: The following Echo studies were performed: 2D, M-Mode, Doppler and color flow. Technically challenging study due to patient lying in supine position. PHYSICIAN INTERPRETATION: Left Ventricle: The left ventricle was not well visualized. The left ventricular ejection fraction could not be measured. The left ventricular cavity size was not assessed. Left ventricular diastolic filling was not assessed. LV appear to have grossly normal systolic function without obvious regional wall motion abnormalities though not well seen. Unable to estimate LVEF. Left Atrium: The left atrial size was not assessed. Right Ventricle: The right ventricle was not well visualized. Unable to determine right ventricular systolic function. Right Atrium: The right atrial size was not well visualized. Aortic Valve: The aortic valve was not well visualized. The aortic valve area by VTI is 1.05 cm with a peak velocity of 3.20 m/s. The peak and mean gradients are 41 mmHg and 22 mmHg, respectively with a dimensionless index of 0.33. There is moderate to severe aortic valve cusp calcification. There is no evidence of aortic valve regurgitation. Baseline- AV not well seen though appears to be moderate to severely calcified/thickened with gradients of 41/22mmHg and DI of 0.33 with no AI. The DI is consistent with moderate though gradients are lower than expected for that degree of . Proceeded to TAVR. Mitral Valve: The mitral valve is normal in structure. There is moderate mitral annular calcification. There is trace mitral valve regurgitation. Tricuspid Valve: The tricuspid valve was not well visualized. Tricuspid regurgitation was not assessed. Pulmonic Valve: The pulmonic valve is not well visualized. Pulmonic valve regurgitation was not assessed. Pericardium: Pericardial effusion was not well visualized. Aorta: The aortic root is abnormal. There is mild dilatation of the aortic root. Systemic Veins: The inferior vena cava was not assessed, IVC inspiratory collapse was not assessed. In comparison to the previous echocardiogram(s): Compared with study dated 10/20/2024, [facility], the prior AV gradients were 73/44mmHg with DI of 0.23 which is consistent with severe and there was no AI at that time. Today's gradients are lower than on prior exam likely due to technically difficult images with limited interrogation in that the LV systolic function appears to be preserved today. Prior LVEF was 67%. Post Transcatheter Aortic Valve Placement (TAVR): The peak instantaneous gradient of the aortic valve is 6.9 mmHg. The mean gradient of the aortic valve is 4.0 mmHg. There is no prosthetic aortic valve regurgitation. There is no nola-prosthetic aortic valve regurgitation. CONCLUSIONS: 1. Poorly visualized anatomical structures due to suboptimal image quality. 2. The left ventricle was not well visualized. The left ventricular ejection fraction could not be measured. 3. LV appear to have grossly normal systolic function without obvious regional wall motion abnormalities though not well seen. Unable to estimate LVEF. 4. Unable to determine right ventricular systolic function. 5. There is moderate mitral annular calcification. 6. Baseline- AV not well seen though appears to be moderate to severely calcified/thickened with gradients of 41/22mmHg and DI of 0.33 with no AI. The DI is consistent with moderate though gradients are lower than expected for that degree of . Proceeded to TAVR. 7. S/p 34mm Medtronic Evolut TAVR with gradients of 6.9/4mmHg and no obvious AI. 8. Compared with study dated 10/20/2024, [facility], the prior AV gradients were 73/44mmHg with DI of 0.23 which is consistent with severe and there was no AI at that time. Today's gradients are lower than on prior exam likely due to technically difficult images with limited interrogation in that the LV systolic function appears to be preserved today. Prior LVEF was 67%. QUANTITATIVE DATA SUMMARY: 2D MEASUREMENTS: Normal Ranges: Ao Root d: 3.70 cm (2.0-3.7cm) AORTIC VALVE: Normal Ranges: AoV Vmax: 3.20 m/s (<=1.7m/s) AoV Vmax Post TAVR: 1.31 m/s (<=1.7m/s) AoV Peak P.0 mmHg (<20mmHg) AoV Peak PG Post TAVR: 6.9 mmHg (<20mmHg) AoV Mean P.0 mmHg (1.7-11.5mmHg) AoV Mean PG Post TAVR: 4.0 mmHg (1.7-11.5mmHg) LVOT Max Clyde: 1.02 m/s (<=1.1m/s) LVOT Max Clyde Post TAVR: 0.98 m/s (<=1.1m/s) AoV VTI: 74.20 cm (18-25cm) AoV VTI Post TAVR: 26.80 cm (18-25cm) LVOT VTI: 24.80 cm LVOT VTI Post TAVR: 23.50 cm LVOT Diameter: 2.00 cm (1.8-2.4cm) LVOT Diameter Post TAVR: 2.00 cm (1.8-2.4cm) AoV Area, VTI: 1.05 cm2 (2.5-5.5cm2) AoV Area, VTI Post TAVR: 2.75 cm2 (2.5-5.5cm2) AoV Area,Vmax: 1.00 cm2 (2.5-4.5cm2) AoV Area,Vmax Post TAVR: 2.35 cm2 (2.5-4.5cm2) AoV Dimensionless Index: 0.33 AoV Dimensionless Index Post TAVR: 0.88 [id number] Kenia Yoder MD Electronically signed on 07/14/2025 at 8:12:45 AM Final CONCLUSIONS: 1. Poorly visualized anatomical structures due to suboptimal image quality. 2. The left ventricle was not well visualized. The left ventricular ejection fraction could not be measured. 3. LV appear to have grossly normal systolic function without obvious regional wall motion abnormalities though not well seen. Unable to estimate LVEF. 4. Unable to determine right ventricular systolic function. 5. There is moderate mitral annular calcification. 6. Baseline- AV not well seen though appears to be moderate to severely calcified/thickened with gradients of 41/22mmHg and DI of 0.33 with no AI. The DI is consistent with moderate though gradients are lower than expected for that degree of . Proceeded to TAVR. 7. S/p 34mm Medtronic Evolut TAVR with gradients of 6.9/4mmHg and no obvious AI. 8. Compared with study dated 10/20/2024, [facility], the prior AV gradients were 73/44mmHg with DI of 0.23 which is consistent with severe and there was no AI at that time. Today's gradients are lower than on prior exam likely due to technically difficult images with limited interrogation in that the LV systolic function appears to be preserved today. Prior LVEF was 67%. LDA: Urethral Catheter (Active) Placement Date/Time: 07/16/25 1200 Hand Hygiene Completed: Yes Catheter Balloon Size: 5 mL Urine Returned: Yes Number of days: 2 NUTRITION: Adult diet Regular EMERGENCY CONTACT: Extended Emergency Contact Information Primary Emergency Contact: Vicky Vergara (Adriel) Mobile Relation: 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 Regional Sales Coordinator needed? No CODE STATUS: Full Code DISPO: Discharge Planning Living Arrangements: Spouse/significant other Support Systems: Spouse/significant other, Family members Assistance Needed: IPTA Type of Residence: Private residence Number of Stairs to Enter Residence: 0 Number of Stairs Within Residence: 0 Do you have animals or pets at home?: No Who is requesting discharge planning?: Provider Home or Post Acute Services: None Expected Discharge Disposition: Detention Facility (SNF) Does the patient need discharge transport arranged?: No AMPAC: Daily Activity - Total Score: 13 FOLLOWUP: Future Appointments Date Time Provider Department Center 07/22/2025 11:20 AM MD LOLA DeeMARIA ISABEL [facility] 07/30/2025 10:30 AM Srikanth Howell APRN-MINE ENGINEERING SUPERVISOR, DNP [id number] [facility] 08/13/2025 1:30 PM SH BRAD [id number] CARD1 [id number] [facility] 08/31/2025 10:00 AM Daniel Almanzar MD [id number] [facility] 10/23/2025 10:45 AM Nima Fay MD [id number] [facility] 07/15/2026 9:30 AM SH BRAD [id number] CARD1 [id number] [facility] [1] Medications Prior to Admission Medication Sig Dispense Refill Last Dose/Taking acetaminophen (Tylenol 8 HOUR) 650 mg ER tablet Take 1 tablet (650 mg) by mouth every 8 hours if needed for mild pain (1 - 3). Do not crush, chew, or split. Past Month allopurinol (Zyloprim) 300 mg tablet Take 1 tablet by mouth once daily 90 tablet 0 07/12/2025 amLODIPine (Norvasc) 10 mg tablet Take 1 tablet (10 mg) by mouth once daily. 90 tablet 3 07/12/2025 aspirin 81 mg chewable tablet Chew 1 tablet (81 mg) once daily. 30 tablet 11 07/12/2025 blood sugar diagnostic (Blood Glucose Test) 1 strip early in the morning.. 100 strip 11 07/12/2025 bumetanide (Bumex) 0.5 mg tablet Take 1 tablet (0.5 mg) by mouth once daily. 30 tablet 11 07/12/2025 clopidogrel (Plavix) 75 mg tablet Take 1 tablet (75 mg) by mouth once daily. Do not fill before January 26, 2025. 90 tablet 3 07/12/2025 ezetimibe (Zetia) 10 mg tablet Take 1 tablet (10 mg) by mouth once daily. 30 tablet 11 07/12/2025 gabapentin (Neurontin) 300 mg capsule Take 1 capsule (300 mg) by mouth 2 times a day. 180 capsule 1 07/12/2025 glucosamine/chondr hogue A sod (OSTEO BI-FLEX ORAL) Take 1 capsule by mouth once daily. 07/12/2025 insulin glargine-lixisenatide (Soliqua 100/33) 100 unit-33 mcg/mL insulin pen Inject 19 Units under the skin once daily. 15 mL 11 07/12/2025 lansoprazole (Acid Summer Clerk, lansoprazole,) [address] capsule Take 1 capsule (15 mg) by mouth once daily. 07/12/2025 pen needle, diabetic 31 gauge x 5/16" needle 1 each once daily. 100 each 3 07/12/2025 cetirizine (ZyrTEC) 10 mg tablet Take 1 tablet (10 mg) by mouth once daily. (Patient not taking: Reported on 07/13/2025) Not Taking empagliflozin (Jardiance) 10 mg tablet Take 1 tablet (10 mg) by mouth once daily. 30 tablet 5 07/11/2025 Subjective Data: Seen and examined while laying in bed with family at bedside. He shakes his head when asked if he is in any pain or if anything is bothering him. Limited speech, but appears more clear. Overnight Events: Some agitation. Got 2.5 mg Zyprexa IM. Today's Events/Plans: -Increased amlodipine to 5 mg -40 mEq Kcl for K+ 3.8 -Continued good UO via de oliveira -Sitter canceled Objective Data: Last Recorded Vitals: Vitals: 07/17/25 2042 07/17/25 2349 07/18/25 0744 07/18/25 1216 BP: 132/70 154/79 161/74 138/70 BP Location: Patient Position: Pulse: 81 82 78 72 Resp: 16 17 18 18 Temp: 37 C (98.6 F) 37.2 C (99 F) 36.6 C (97.9 F) 36.6 C (97.9 F) TempSrc: SpO2: 98% 92% 97% 97% Weight: Height: Last Labs: CBC - 07/18/2025: 8:33 AM 11.7 11.4 196 34.4 CMP - 07/18/2025: 8:33 AM 9.2 6.8 18 --- 0.7 3.2 3.8 12 91 PTT - No results in last year. 1.1 12.7 _ TROPHS Date/Time Value Ref Range Status 03/04/2025 02:12 PM 11 0 - 20 ng/L Final 03/04/2025 01:10 PM 13 0 - 20 ng/L Final 10/18/2024 03:57 PM 11 0 - 20 ng/L Final BNP Date/Time Value Ref Range Status 10/18/2024 03:57 PM 321 0 - 99 pg/mL Final HGBA1C Date/Time Value Ref Range Status 07/15/2025 06:34 AM 7.0 See comment % Final 03/09/2025 08:32 AM 6.6 <5.7 % Final Comment: For someone without known diabetes, a hemoglobin A1c value of 6.5% or greater indicates that they may have diabetes and this should be confirmed with a follow-up test. For someone with known diabetes, a value <7% indicates that their diabetes is well controlled and a value greater than or equal to 7% indicates suboptimal control. A1c targets should be individualized based on duration of diabetes, age, comorbid conditions, and other considerations. Currently, no consensus exists regarding use of hemoglobin A1c for diagnosis of diabetes for children. 09/05/2024 07:38 AM 7.2 See comment % Final LDLCALC Date/Time Value Ref Range Status 07/15/2025 06:34 AM 76 <=99 mg/dL Final Comment: Near Borderline AGE Desirable Optimal High High Very High 0-19 Y 0 - 109 --- 110-129 >/= 130 ---- 20-24 Y 0 - 119 --- 120-159 >/= 160 ---- >24 Y 0 - 99 100-129 130-159 160-189 >/=190 LDL Cholesterol is calculated using the Friedewald equation. 09/26/2024 07:54 AM 42 <=99 mg/dL Final Comment: Near Borderline AGE Desirable Optimal High High Very High 0-19 Y 0 - 109 --- 110-129 >/= 130 ---- 20-24 Y 0 - 119 --- 120-159 >/= 160 ---- >24 Y 0 - 99 100-129 130-159 160-189 >/=190 VLDL Date/Time Value Ref Range Status 07/15/2025 06:34 AM 31 0 - 40 mg/dL Final 09/26/2024 07:54 AM 60 0 - 40 mg/dL Final 03/29/2022 07:54 AM SEE COMMENT 0 - 40 mg/dL Final Comment: Unable to calculate VLDL. 03/29/2020 08:37 AM SEE COMMENT 0 - 40 mg/dL Final Comment: Unable to calculate VLDL. Last I/O: I/O last 3 completed shifts: In: 120 (1.1 mL/kg) [P.O.:120] Out: 2475 (22.8 mL/kg) [Urine:2475 (0.6 mL/kg/hr)] Weight: 108.5 kg Past Cardiology Tests (Last 3 Years): EKG: ECG 12 lead daily 07/14/2025 (Preliminary) ECG 12 lead daily 07/13/2025 (Preliminary) ECG 12 lead 07/13/2025 ECG 12 Lead 03/05/2025 ECG 12 lead 03/04/2025 ECG 12 lead 03/04/2025 ECG 12 lead STAT 01/19/2025 Electrocardiogram 12 Lead 01/19/2025 ECG 12 lead (Clinic Performed) 12/08/2024 ECG 12 lead ECG 12 lead 05/29/2024 Echo: Transthoracic Echo (TTE) Limited 07/14/2025 Transthoracic Echo (TTE) Limited 07/13/2025 Transthoracic Echo (TTE) Complete 10/20/2024 Ejection Fractions: EF Date/Time Value Ref Range Status 07/14/2025 03:18 PM 62 % 10/20/2024 07:19 AM 67 % Cath: Cardiac Catheterization Procedure 07/13/2025 Cardiac Catheterization Procedure 01/19/2025 Stress Test: No results found for this or any previous visit from the past 1095 days. Cardiac Imaging: No results found for this or any previous visit from the past 1095 days. Inpatient Medications: Scheduled Medications[1] PRN Medications[2] Continuous Medications[3] Physical Exam: General: NAD, lying in bed Skin: warm and dry Head/ neck: no JVD seen at 90 degrees Cardiac: RRR, S1, S2 Pulm: CTAB, room air GI: soft, nontender Extremities: no LE edema Neuro: expressive aphasia Psych: agitated at times Assessment/Plan Kitty Vergara is a 85 y.o. male with a PMH of BPH, GERD, CKD stage 4, DMII hgAIc 6.6, CAD s/p LHC/RHC with PCI- 01/19/25, on Plavix and ASA 81mg, bardycardia, and severe non-rheumatic aortic stenosis. Pt presented on 07/13/2025 for elective TAVR. Overnight on 07/14/25 BAT called for abnormal speech and AMS concerning for stroke. Transferred to HVI service for management. TAVR 07/14 - TTE 07/14 EF 62%. normal aortic valve prosthesis structure and function. No WMA. Compared with study dated 07/13/2025, the patient is now s/p 34 mm Evolut Fx+ TAVR with reduction in aortic gradients. - CXR 07/14 Mild pulmonary vascular congestion compared to the previous study. - 07/15 Home bumex dose is 0.5, increased to 1mg on 07/13. Lowered back to 0.5 since he had confusion and taking less PO intake today. - Single antiplatelet for life is recommended post tavr but given with pt h xof PCI 01/19/25 pt will need ASA and Plavix until next year 01/19/26 Acute Stroke 07/14 - expressive aphasia - CT head and CTA head/neck which did not demonstrate any new stroke or any large vessel occlusion. - Carodis with Left greater than right with stenosis of the distal left common carotid artery measuring up to approximately 60-65%. Nonspecific white matter changes most likely represent small-vessel ischemic disease in a patient of this age. No evidence of acute cortical infarct, mass effect, or ICH. There are areas of encephalomalacia in the cerebellum which could reflect remote infarcts. - MRI brain 07/14 scattered areas of acute to early subacute infarction within the cerebral hemispheres bilaterally left greater than right as well as within the left cerebellar hemisphere as described above. The dominant area of acute to early subacute infarction is identified within the left temporoparietal region. The above findings are superimposed upon moderate brain parenchymal volume loss. There are scattered as well as more patchy and confluent nonspecific white matter changes again noted within cerebral hemispheres bilaterally as well as ill-defined increased signal on the FLAIR and T2 images overlying the brainstem which while nonspecific, given the patient's age, likely represent sequelae of more remote small-vessel ischemic change. Additional small foci of bright signal on the T2 images are identified within the subinsular regions, basal ganglia, and thalami bilaterally suggesting incidental mildly prominent perivascular spaces and/or scattered more remote lacunar infarctions.Scattered areas of encephalomalacia are identified within the cerebellum as well as along the posterior right occipital lobe. - Neuro consulted, no objection to DAPT, defer to primary. Follow up stroke clinic (requested), continue speech therapy. Signed off - PT/OT - 07/15 Combative, required haldol. - 07/16 Psych consulted for agitation mgmt - Hx fall day of TAVR, slipped off chair in kitchen and landed on buttocks. No trauma. -07/17--Transferred to [facility] per Psychiatry for goal to liberate patient from sitter/restraints (Will remain primary w/ co-management ) CKD Stage 4 - Cr today 2.52 (2.53) - Baseline 2-2.2 - 07/15 Reduce bumex back to home dose of 0.5 CAD HLP - s/p PCI to prox-mid LAD using [address] Jessie Fay - Single antiplatelet for life is recommended post tavr but given with pt h xof PCI 01/19/25 pt will need ASA and Plavix until next year 01/19/26 - lipid panel ordered per neuro request ->HDL 35.4, LDL 76,Trigs 154 - Allergy to statin, continue zetia HTN - Pt with SBP wolf 144-167 - Blood pressure goals: avoid hypotension SBP <100 that could worsen cerebral perfusion, permissive HTN - Continue amlodipine 2.5mg daily-07/18 Increased to 5 mg DM - HgbA1C 6.6 02/2025 - (7.0) rechecked HgbA1C per neuro request - Lantus 10u+SS Urinary Retention BPH - Hx ureteroscopy, cysto with retrograde pyelogram and bladder lesion ablation 10/28/24. Cysto showed severe bladder trabeculation, no mass. Prostate enlargement. - Hx requiring de oliveira for 2 months, was on flomax and proscar - Hx cystoscopy showed severe bladder trabeculation, no mass, prostate enlargement S/P Endoscopic Anatomical Prostate Enucleation ~ HoLEP 03/30/25 with improvement in emptying - 07/15 Patient wants to urinate out of bed, for safety reasons kept in bed, unable to follow command to urinate in urinal. Became agitated. straight cath Q shift PRN urine >400 on bladder scan - 07/16 De Oliveira placed for continued need of straight cath (rec only 1/2 inflating balloon to decrease risk of potential injury . - 07/17-Good UO via de oliveira. Started Flomax 0.4 mg daily DVT ppx:heparin subcutaneous DISPO: PT/OT and speech & PMR eval->rec SNF w/ goal to [place] Code Status: Full Code All labs, vital signs, tests & imaging results, and medications were reviewed. Seen and discussed with Dr. Ady Ridley, DIESEL SERVICE APPRENTICE-MINE ENGINEERING SUPERVISOR [1] Scheduled medications Medication Dose Route Frequency [START ON 07/19/2025] amLODIPine 5 mg oral Daily aspirin 81 mg oral Daily bisacodyl 5 mg oral Nightly bumetanide 0.5 mg oral Daily clopidogrel 75 mg oral Daily docusate sodium 100 mg oral BID ezetimibe 10 mg oral Daily gabapentin 300 mg oral BID heparin (porcine) 5,000 Units subcutaneous q8h insulin glargine 10 Units subcutaneous Nightly insulin lispro 0-10 Units subcutaneous TID AC OLANZapine 2.5 mg oral Nightly pantoprazole 40 mg oral Daily before breakfast Or pantoprazole 40 mg intravenous Daily before breakfast perflutren lipid microspheres 0.5-10 mL of dilution intravenous Once in imaging tamsulosin 0.4 mg oral Daily [2] PRN medications Medication acetaminophen Or acetaminophen Or acetaminophen benzocaine-menthol dextrose dextrose glucagon glucagon lidocaine-epinephrine melatonin OLANZapine ondansetron Or ondansetron oxygen phenoL prochlorperazine Or prochlorperazine Or prochlorperazine traMADol [3] Continuous Medications Medication Dose Last Rate Cosigned by Kapil Garsia MD at 07/19/2025 12:43 PM EDT Associated attestation - Kapil Garsia MD - 07/19/2025 12:43 PM EDT This is a shared visit. I have reviewed the Advanced Practice Provider's encounter note, approve the Advanced Practice Provider's documentation, and provide the following additional information from my personal encounter. Please see my progress note from today for additional details. Kapil Garsia MD [facility] Attending Shared Visit Note This is a shared visit. Please see Advanced Practice Provider's encounter note for additional details. Briefly, 85M from [place], [place] with severe s/p TAVR 07/13 complicated by nola-procedural embolic strokes He has a history of HTN, HLD, DM2, CKD4, CAD s/p PCI 01/19/25, severe , gout, OA, obesity, BPH. Admitted 07/13/25 for TAVR. Develop aphasia evening 07/13 post-procedure; BAT called. CT/CTA 07/14 without LVO or ICH. MRI brain showed acute to subacute embolic infarcts L>M hemispheres and left cerebellum consistent with nola-procedural cardioembolism. Course complicated by agitation and delirium requiring antipsychotics and De Oliveira for urinary retention. Transferred 07/17 to [facility] for co-management with psychiatry to facilitate restraint/sitter wean and behavioral stabilization. Amlodipine increased for BP control renal function stable at baseline (Cr~2.5). Exam: eating in bed with family providing redirection. De Oliveira in place. Multiple bruises. Not oriented. # Ischemic stroke post-TAVR, embolic pattern MRI 07/14. Stroe recovery, neuro recs: # Agitation delirium: safety monitoring, psych recs appreciated. PT/OT/PM&R. [facility] transfer # Dysphagia risk. # s/p TAVR Evolut FX+34 mm 07/13/25 with transient conduction changes now LBBB 1deg AVB # CAD s/p PCI 01/19/25 LAD WILLIE x2: DAPT # CKD4 baseline Cr ~2: CTM # HTN: increase amlodipine # Urinary retention: de oliveira in place # Dispo: Not medically ready. Barriers include neuro recovery/agitation. Kapil Garsia MD Assessment & Plan Nonrheumatic aortic (valve) stenosis Mixed level of activity delirium due to multiple etiologies, persistent Objective Admit Date: 07/13/2025 Hospital Length of Stay: 5 Home: [facility] [id number] MEDICATIONS Infusions: Scheduled: amLODIPine, 2.5 mg, Daily aspirin, 81 mg, Daily bisacodyl, 5 mg, Nightly bumetanide, 0.5 mg, Daily clopidogrel, 75 mg, Daily docusate sodium, 100 mg, BID ezetimibe, 10 mg, Daily gabapentin, 300 mg, BID heparin (porcine), 5,000 Units, q8h insulin glargine, 10 Units, Nightly insulin lispro, 0-10 Units, TID AC OLANZapine, 2.5 mg, Nightly pantoprazole, 40 mg, Daily before breakfast Or pantoprazole, 40 mg, Daily before breakfast perflutren lipid microspheres, 0.5-10 mL of dilution, Once in imaging tamsulosin, 0.4 mg, Daily PRN: acetaminophen, 650 mg, q6h PRN Or acetaminophen, 650 mg, q6h PRN Or acetaminophen, 650 mg, q6h PRN benzocaine-menthol, 1 lozenge, q2h PRN dextrose, 12.5 g, q15 min PRN dextrose, 25 g, q15 min PRN glucagon, 1 mg, q15 min PRN glucagon, 1 mg, q15 min PRN lidocaine-epinephrine, 5 mL, Once PRN melatonin, 6 mg, Nightly PRN OLANZapine, 2.5 mg, Daily PRN ondansetron, 4 mg, q8h PRN Or ondansetron, 4 mg, q8h PRN oxygen, , Continuous - O2/gases phenoL, 1 spray, q2 min PRN prochlorperazine, 10 mg, q6h PRN Or prochlorperazine, 10 mg, q6h PRN Or prochlorperazine, 25 mg, q12h PRN traMADol, 50 mg, q6h PRN Prior to Admission Meds: Prescriptions Prior to Admission[1] Vitals: 07/18/2025 7:44 AM 07/17/2025 11:49 PM 07/17/2025 8:42 PM 07/17/2025 2:30 PM 07/17/2025 11:00 AM 07/17/2025 9:37 AM 07/17/2025 9:36 AM Vitals Systolic 161 154 132 147 150 Diastolic 74 79 70 70 79 BP Location Left arm Left arm Heart Rate 78 82 81 70 78 81 Temp 36.6 C (97.9 F) 37.2 C (99 F) 37 C (98.6 F) 37 C (98.6 F) 36.1 C (97 F) Resp 18 17 16 20 20 Wt Readings from Last 5 Encounters: 07/15/25 109 kg (239 lb 3.2 oz) 07/01/25 105 kg (232 lb) 04/21/25 104 kg (229 lb) 04/04/25 (P) 105 kg (232 lb) 03/26/25 107 kg (235 lb 14.3 oz) Intake/Output Summary (Last 24 hours) at 07/18/2025 0905 Last data filed at 07/18/2025 0400 Gross per 24 hour Intake 120 ml Output 1175 ml Net -1055 ml CHEST: Unlabored, Clear CV: Normal sinus rhythm NEURO: RASS: Alert and calm CAM: LOC: Alert Cognition: Impulsive, Poor attention/concentration, Unable to assess GCS: 13 DATA: CMP: Recent Labs 07/17/25 0904 07/16/25 0848 07/15/25 0634 07/14/25 0518 07/13/25 2009 07/09/25 0925 03/09/25 0832 03/05/25 0420 03/04/25 1310 01/12/25 0752 10/20/24 0509 10/18/24 1557 09/26/24 0754 NA 139 138 138 138 139 140 139 139 137 < > 135* < > 139 K 4.4 3.8 3.8 3.9 3.4* 4.1 4.4 3.9 4.5 < > 4.9 < > 3.9 CL 104 103 102 103 104 103 105 107 106 < > 107 < > 101 CO2 24 24 23 24 23 24 24 23 25 < > 21 < > 29 ANIONGAP 15 15 17 15 15 13 10 13 11 < > 12 < > 13 BUN 33* 35* 37* 33* 35* 32* 42* 38* 41* < > 35* < > 37* CREATININE 2.53* 2.77* 2.68* 2.01* 2.27* 2.47* 2.25* 2.26* 2.31* < > 2.29* < > 2.63* EGFR 24* 22* 23* 32* 28* 25* 28* 28* 27* < > 27* < > 23* MG -- 2.17 2.11 2.12 2.14 -- 2.4 -- 2.00 -- 1.45* -- 1.70 < > = values in this interval not displayed. Recent Labs 03/09/25 0832 03/04/25 1310 10/20/24 0509 10/18/24 1557 09/26/24 0754 09/05/24 0738 05/29/24 1231 05/08/24 0733 02/04/24 0816 ALBUMIN 3.8 3.9 3.2* 3.4 4.1 3.8 4.0 4.1 3.8 ALT 12 12 -- 7* 7* 9* 9* 7* 9* AST 18 18 -- 12 11 12 12 10 11 BILITOT 0.7 0.7 -- 0.5 0.7 0.8 0.7 0.9 0.6 LIPASE -- -- -- 23 -- -- -- -- -- CBC: Recent Labs 07/17/25 0904 07/16/25 0848 07/15/25 0634 07/14/25 0518 07/13/25200807/09/25 0925 03/09/25 0832 03/05/25 0420 WBC 9.3 9.6 10.1 9.5 10.9 8.9 9.6 7.9 HGB 12.1* 11.5* 11.1* 11.1* 11.3* 12.7* 11.7* 11.0* HCT 37.5* 36.4* 35.9* 35.3* 35.4* 39.2 36.7* 34.1* PLT 170 163 147* 146* 142* 167 184 160 MCV 95 95 96 95 94 93.3 94.3 92 COAG: Recent Labs 07/16/25 0848 07/15/25 0634 07/14/25 0518 07/13/25200807/09/25 0925 INR 1.1 1.2* 1.1 1.2* 1.1 ABO: Recent Labs 07/13/25 1451 ABO A HEME/ENDO: Recent Labs 07/15/25 0634 03/09/25 0832 03/04/25 1412 10/19/24 0437 09/26/24 0754 09/05/24 0738 05/08/24 0733 FERRITIN -- -- -- 440* -- -- -- IRONSAT -- -- -- 11* -- -- -- TSH -- 3.59 2.51 2.35 5.03* -- -- HGBA1C 7.0* 6.6* -- -- -- 7.2* 7.3* CARDIAC: Recent Labs 03/04/25 1412 03/04/25 1310 10/18/24 1557 05/29/24 1231 03/28/23 1150 03/28/23 1022 TROPHS 11 13 11 10 12 14 BNP -- -- 321* -- -- -- Recent Labs 07/15/25 0634 09/26/24 0754 03/29/22 0754 03/29/20 0837 CHOL 142 139 172 185 LDLF -- -- - - LDLCALC 76 42 -- -- HDL 35.4 37.0 36.0* 32.0* TRIG 154* 299* 529* 607* TOX:No results for input(s): "AMPHETAMINE", "BENZO", "CANNABINOID", "COCAI", "FENTANYL", "OPIATE", "OXYCODONE", "PCP" in the last 96723 hours. No lab exists for component: BARBSCRUR MICRO: Recent Labs 05/23/22 1019 CRP 0.43 No results found for the last 90 days. EKG: Recent Labs 07/15/250 07/14/25 0530 07/13/25 1950 ATRRATE 79 70 70 VENTRATE 87 70 70 PRINT 296 208 296 QRSDUR 136 148 158 QTCFRED 477 499 528 QTCCALCB 507 511 542 Encounter Date: 07/13/25 ECG 12 lead daily Result Value Ventricular Rate 87 Atrial Rate 79 TX Interval 296 QRS Duration 136 QT Interval 422 QTC Calculation(Bazett) 507 P Goltry 97 R Goltry 11 T Goltry 178 QRS Count 14 Q Onset 209 P Onset 61 P Offset 120 T Offset 420 QTC Fredericia 477 Narrative Sinus rhythm with 1st degree AV block with occasional Premature ventricular complexes and Premature atrial complexes Left bundle branch block Abnormal ECG When compared with ECG of 14-JUL-2025 05:26, Sinus rhythm has replaced Ectopic atrial rhythm Echocardiogram: Recent Labs 07/14/25 1518 10/20/24 0719 EF 62 67 LVIDD -- 4.65 RV -- 45.5 TAPSE -- 2.1 Transthoracic Echo (TTE) Complete With Contrast 10/20/2024 [place] [address] [phone], TRANSTHORACIC ECHOCARDIOGRAM REPORT Patient Name: KITTY VERGARA Reading Physician: [id number] Santiago Marquez MD Study Date: 10/20/2024 Ordering Provider: [id number] ZANA MATHEWS MRN/PID: [id number] Fellow: Nurse: Ayaka Hernandez RN Date of /Age: 1007/06/1940 Manager Garden: Mary galeano RVT, RCS Gender Assigned at M Additional Staff: : Height: 177.80 cm Admit Date: 10/18/2024 Weight: 104.33 kg Admission Status: Inpatient - Routine BSA / BMI: 2.22 m2 / 33.00 Department Location: [address]-ICU kg/m2 Blood Pressure: 160 /86 mmHg Study Type: TRANSTHORACIC ECHO (TTE) COMPLETE Diagnosis/ICD: Bradycardia, unspecified-R00.1; Unspecified atrial fibrillation-I48.91 Indication: Francisco,AFib CPT Codes: Echo Complete w Full [id number] Patient History: Pertinent History: Previous echo 03-28-23. Study Detail: The following Echo studies were performed: 2D, M-Mode, Doppler and color flow. Definity used as a contrast agent for endocardial border definition. A bubble study was not performed. The patient was awake. PHYSICIAN INTERPRETATION: Left Ventricle: Left ventricular ejection fraction is normal, calculated by Villalobos's biplane at 67%. The patient is in atrial fibrillation which may influence the estimate of left ventricular function and transvalvular flows. There are no regional wall motion abnormalities. The left ventricular cavity size is normal. There is mild increased septal and mildly increased posterior left ventricular wall thickness. There is left ventricular concentric remodeling. Spectral Doppler shows a Grade II (pseudonormal pattern) of left ventricular diastolic filling with an elevated left atrial pressure. Left Atrium: The left atrium is normal in size. A bubble study using agitated saline was not performed. Right Ventricle: The right ventricle is normal in size. There is normal right ventricular global systolic function. Right Atrium: The right atrium is normal in size. Aortic Valve: The aortic valve is trileaflet. There is evidence of moderate to severe aortic valve stenosis. The aortic valve dimensionless index is 0.23. There is no evidence of aortic valve regurgitation. The peak instantaneous gradient of the aortic valve is 73 mmHg. The mean gradient of the aortic valve is 44 mmHg. Mitral Valve: The mitral valve is normal in structure. There is mild mitral valve regurgitation. Tricuspid Valve: The tricuspid valve is structurally normal. There is trace tricuspid regurgitation. Pulmonic Valve: The pulmonic valve is not well visualized. There is no indication of pulmonic valve regurgitation. Pericardium: No pericardial effusion noted. Aorta: The aortic root is normal. CONCLUSIONS: 1. Poorly visualized anatomical structures due to suboptimal image quality. 2. Left ventricular ejection fraction is normal, calculated by Villalobos's biplane at 67%. 3. Spectral Doppler shows a Grade II (pseudonormal pattern) of left ventricular diastolic filling with an elevated left atrial pressure. 4. There is normal right ventricular global systolic function. 5. Moderate to severe aortic valve stenosis. 6. Compared to prior TTE dated 03/28/2023 - aortic stenosis has progressed and now appears to be moderate-severe. 7. The patient is in atrial fibrillation which may influence the estimate of left ventricular function and transvalvular flows. QUANTITATIVE DATA SUMMARY: 2D MEASUREMENTS: Normal Ranges: Ao Root d: 3.10 cm (2.0-3.7cm) LAs: 3.70 cm (2.7-4.0cm) IVSd: 1.35 cm (0.6-1.1cm) LVPWd: 1.38 cm (0.6-1.1cm) LVIDd: 4.65 cm (3.9-5.9cm) LVIDs: 3.06 cm LV Mass Index: 113.5 g/m2 LV % FS 34.2 % LA VOLUME: Normal Ranges: LA Vol A4C: 31.2 ml (22+/-6mL/m2) LA Vol A2C: 54.6 ml LA Vol BP: 43.6 ml LA Vol Index A4C: 14.1ml/m2 LA Vol Index A2C: 24.7 ml/m2 LA Vol Index BP: 19.7 ml/m2 LA Area A4C: 14.7 cm2 LA Area A2C: 18.4 cm2 LA Major Goltry A4C: 5.9 cm LA Major Goltry A2C: 5.3 cm LA Volume Index: 24.0 ml/m2 LA Vol A4C: 31.4 ml LA Vol A2C: 53.3 ml LA Vol Index BSA: 19.1 ml/m2 M-MODE MEASUREMENTS: Normal Ranges: AoV Exc: 0.90 cm (1.5-2.5cm) AORTA MEASUREMENTS: Normal Ranges: AoV Exc: 0.90 cm (1.5-2.5cm) LV SYSTOLIC FUNCTION BY 2D PLANIMETRY (MOD): Normal Ranges: EF-A4C View: 63 % (>=55%) EF-A2C View: 71 % EF-Biplane: 67 % LV EF Reported: 67 % LV DIASTOLIC FUNCTION: Normal Ranges: MV Peak E: 1.26 m/s (0.7-1.2 m/s) MV Peak A: 1.18 m/s (0.42-0.7 m/s) E/A Ratio: 1.07 (1.0-2.2) MV e' 0.089 m/s (>8.0) MV lateral e' 0.07 m/s MV medial e' 0.11 m/s E/e' Ratio: 14.21 (<8.0) MITRAL VALVE: Normal Ranges: MV DT: 289 msec (150-240msec) MITRAL INSUFFICIENCY: Normal Ranges: MR Vmax: 351.00 cm/s AORTIC VALVE: Normal Ranges: AoV Vmax: 4.26 m/s (<=1.7m/s) AoV Peak P.6 mmHg (<20mmHg) AoV Mean P.0 mmHg (1.7-11.5mmHg) LVOT Max Clyde: 1.10 m/s (<=1.1m/s) AoV VTI: 104.00 cm (18-25cm) LVOT VTI: 23.70 cm LVOT Diameter: 2.20 cm (1.8-2.4cm) AoV Area, VTI: 0.87 cm2 (2.5-5.5cm2) AoV Area,Vmax: 0.98 cm2 (2.5-4.5cm2) AoV Dimensionless Index: 0.23 RIGHT VENTRICLE: RV Basal 3.65 cm RV Mid 2.11 cm RV Major 6.9 cm TAPSE: 20.9 mm TRICUSPID VALVE/RVSP: Normal Ranges: Peak TR Velocity: 3.26 m/s RV Syst Pressure: 46 mmHg (< 30mmHg) PULMONIC VALVE: Normal Ranges: PV Accel Time: 106 msec (>120ms) PV Max Clyde: 2.3 m/s (0.6-0.9m/s) PV Max P.3 mmHg [id number] Santiago Marquez MD Electronically signed on 10/20/2024 at 9:11:55 AM Final Coronary Angiography: TAVR (Transcatheter AV Replacement), TAVR (Transcatheter AV Replacement) 07/13/2025 [facility], Yield Improvement Engineer, [address] [place] [address] Cardiovascular Catheterization Report Patient Name: KITTY Casey VERGARA Performing Physician: [id number] Dorothy Barbosa MD Study Date: 07/13/2025 Verifying Physician: [id number] Dorothy Barbosa MD MRN/PID: [id number] Qa Specialist/Co-Scrub: Ordering Provider: [id number] DOROTHY BARBOSA Date of 1940 Qa Specialist: /Age: years Gender: M Fellow: [id number] Camila Salinas MD Surgeon: Omar Howell MD Study: GURJIT - Transcatheter Aortic Valve Implantation Indications: Severe aortic stenosis. Informed Consent: Benefits, risks, and alternatives discussed with patient or authorized national sales representative and consent was obtained. Transcatheter Aortic Valve Replacement (TAVR): The right femoral artery was accessed using the transfemoral method. A 6 Fr sheath was inserted followed by the deployment of 2 Proglides. 18 F Sentrant. The left femoral artery was accessed percutaneously and a 6 Gabonese contralateral sheath was placed. A 6 Gabonese temporary pacemaker was inserted through the right jugular vein and advanced to the right ventricular apex. Adequate pacing thresholds were obtained. After crossing the stenotic aortic valve, balloon aortic valvuloplasty was performed with True Dilation 23. Evolut FX+ 34 valve was successfully deployed under rapid ventricular pacing at 160 BPM. Transthoracic echo performed post valve deployment revealed no mitral insufficiency and no central aortic insufficiency and trace/trivial paravalvular aortic insufficiency. No device related events. No bleeding events occurred during the procedure. No vascular access complications were revealed. Access site was closed using 2 ProGlide devices. Hemostasis was achieved in the left femoral artery using a ProGlide device. Temporary pacing wire was sutured in place. Hemo Personnel: + +---------+ Name Duty + +---------+ Dorothy Barbosa MD, MD 1 + +---------+ Fluoroscopy Time: + +- ------+ Bedside Procedure Fluoro Dose: n/a mGy + +- ------+ Hemodynamic Pressures: +----+ + + + +---- ---+---------+ Site Date Time Phase Name Systolic mmHg Diastolic mmHg ED mmHg Mean mmHg +----+ + + + +---- ---+---------+ AO 07/13/2025 Rest 198 75 125 6:13:05 PM +----+ + + + +---- ---+---------+ AO 07/13/2025 Rest 184 84 116 6:28:09 PM +----+ + + + +---- ---+---------+ LV 07/13/2025 Rest 227 1 20 6:28:09 PM +----+ + + + +---- ---+---------+ AO 07/13/2025 Rest 191 72 112 6:28:17 PM +----+ + + + +---- ---+---------+ LV 07/13/2025 Rest 225 1 26 6:28:17 PM +----+ + + + +---- ---+---------+ Complications: No vascular access complications were revealed. No bleeding events occurred during the procedure. No device related events. Cardiac Cath Post Procedure Notes: Post Procedure Diagnosis: Successful GURJIT. Blood Loss: Estimated blood loss during the procedure was 10 mls. Specimens Removed: Number of specimen(s) removed: none. CONCLUSIONS: 1. Successful GURJIT using a Evolut FX+ 34. 2. ASA indefinately. 3. Patient was enrolled in a research study and data was included in the TVT Registry. ICD 10 Codes: Nonrheumatic aortic (valve) stenosis-I35.0 CPT Codes: GURJIT Perc,femoral-65763.62 [id number] Dorothy Barbosa MD Performing Physician Final Impression CONCLUSIONS: 1. Successful GURJIT using a Evolut FX+ 34. 2. ASA indefinately. 3. Patient was enrolled in a research study and data was included in the TVT Registry. Right Heart Cath: No results found for this or any previous visit from the past 1800 days. Cardiac Scoring: No results found for this or any previous visit from the past 1800 days. Cardiac MRI: No results found for this or any previous visit from the past 1800 days. Nuclear:No results found for this or any previous visit from the past 1800 days. Metabolic Stress: No results found for this or any previous visit from the past 1800 days. Imaging Cardiac Catheterization Procedure Result Date: 07/15/2025 CONCLUSIONS: 1. Successful GURJIT using a Evolut FX+ 34. 2. ASA indefinately. 3. Patient was enrolled in a research study and data was included in the TVT Registry. XR chest 1 view Result Date: 07/15/2025 1. Mild pulmonary vascular congestion compared to the previous study. Signed by: Darinel Zee 07/15/2025 8:41 AM Dictation workstation: [id number] MR brain wo IV contrast Result Date: 07/15/2025 There are MRI findings compatible with scattered areas of acute to early subacute infarction within the cerebral hemispheres bilaterally left greater than right as well as within the left cerebellar hemisphere as described above. The dominant area of acute to early subacute infarction is identified within the left temporoparietal region. The above findings are superimposed upon moderate brain parenchymal volume loss. There are scattered as well as more patchy and confluent nonspecific white matter changes again noted within cerebral hemispheres bilaterally as well as ill-defined increased signal on the FLAIR and T2 images overlying the brainstem which while nonspecific, given the patient's age, likely represent sequelae of more remote small-vessel ischemic change. Additional small foci of bright signal on the T2 images are identified within the subinsular regions, basal ganglia, and thalami bilaterally suggesting incidental mildly prominent perivascular spaces and/or scattered more remote lacunar infarctions. Scattered areas of encephalomalacia are identified within the cerebellum as well as along the posterior right occipital lobe. MACRO: Critical Finding: See findings. Notification was initiated on 07/15/2025 at 6:48 am by Matilde Melvin. (-OCF-) Instructions: See Findings. Signed by: Matilde Melvin 07/15/2025 6:48 AM Dictation workstation: [id number] Transthoracic Echo (TTE) Limited Result Date: 07/14/2025 CONCLUSIONS: 1. Poorly visualized anatomical structures due to suboptimal image quality. 2. Left ventricular ejection fraction is normal calculated by Villalobos's biplane at 62%. 3. Echo findings are consistent with normal aortic valve prosthesis structure and function. 4. Unable to determine right ventricular systolic function. 5. No regional left ventricular wall motion abnormalities. 6. Compared with study dated 07/13/2025, the patient is now s/p 34 mm Evolut Fx+ TAVR with reduction in aortic gradients. Transthoracic Echo (TTE) Limited Result Date: 07/14/2025 CONCLUSIONS: 1. Poorly visualized anatomical structures due to suboptimal image quality. 2. The left ventricle was not well visualized. The left ventricular ejection fraction could not be measured. 3. LV appear to have grossly normal systolic function without obvious regional wall motion abnormalities though not well seen. Unable to estimate LVEF. 4. Unable to determine right ventricular systolic function. 5. There is moderate mitral annular calcification. 6. Baseline- AV not well seen though appears to be moderate to severely calcified/thickened with gradients of 41/22mmHg and DI of 0.33 with no AI. The DI is consistent with moderate though gradients are lower than expected for that degree of . Proceeded to TAVR. 7. S/p 34mm Medtronic Evolut TAVR with gradients of 6.9/4mmHg and no obvious AI. 8. Compared with study dated 10/20/2024, [facility], the prior AV gradients were 73/44mmHg with DI of 0.23 which is consistent with severe and there was no AI at that time. Today's gradients are lower than on prior exam likely due to technically difficult images with limited interrogation in that the LV systolic function appears to be preserved today. Prior LVEF was 67%. CT brain attack head wo IV contrast Result Date: 07/14/2025 1. No proximal large branch vessel cutoff on CTA of the head. 2. Atherosclerotic changes most significantly involving the common carotid arteries, left greater than right with stenosis of the distal left common carotid artery measuring up to approximately 60-65% relative to the caliber of the vessel more proximally. There is also luminal irregularity at least mild narrowing of the distal V2/V3 segment of the left vertebral artery. 3. Nonspecific white matter changes most likely represent small-vessel ischemic disease in a patient of this age. No definitive evidence of acute cortical infarct, mass effect, or acute intracranial hemorrhage. There are areas of encephalomalacia in the cerebellum which could reflect remote infarcts. MRI with diffusion-weighted imaging would be a more sensitive means of assessing for acute ischemic injury. 4. Diffuse parenchymal volume loss. 5. Enlarged and heterogenous appearance of the right thyroid lobe with a focal lesion measuring up to 3.5 cm. Recommend correlation with non-emergent thyroid ultrasound. 6. Additional findings as above. I personally reviewed the images/study and I agree with the findings as stated by Jeff Butler, PGY-3. MACRO: Jeff Butler discussed the significance and urgency of this critical finding in person with neurology on 07/14/2025 at 2:30 a.m.. (-RCF-) Findings: See findings. Incidental Finding: There are few small hypoattenuating nodules measuring equal to or greater than 1.5 cm in the thyroid gland. (-YCF-) Instructions: Further evaluation with nonemergent thyroid ultrasound. (Managing Incidental Thyroid Nodules Detected on Imaging: White Paper of the ACR Incidental Thyroid Findings Committee. Mariela Sutton. et al. Journal of the [place] [employer],Volume 12, Issue 2, 143 - 150.) [email or web address] Signed by: Angela Doyle 07/14/2025 6:06 AM Dictation workstation: [id number] CT brain attack angio head and neck W and WO IV contrast Result Date: 07/14/2025 1. No proximal large branch vessel cutoff on CTA of the head. 2. Atherosclerotic changes most significantly involving the common carotid arteries, left greater than right with stenosis of the distal left common carotid artery measuring up to approximately 60-65% relative to the caliber of the vessel more proximally. There is also luminal irregularity at least mild narrowing of the distal V2/V3 segment of the left vertebral artery. 3. Nonspecific white matter changes most likely represent small-vessel ischemic disease in a patient of this age. No definitive evidence of acute cortical infarct, mass effect, or acute intracranial hemorrhage. There are areas of encephalomalacia in the cerebellum which could reflect remote infarcts. MRI with diffusion-weighted imaging would be a more sensitive means of assessing for acute ischemic injury. 4. Diffuse parenchymal volume loss. 5. Enlarged and heterogenous appearance of the right thyroid lobe with a focal lesion measuring up to 3.5 cm. Recommend correlation with non-emergent thyroid ultrasound. 6. Additional findings as above. I personally reviewed the images/study and I agree with the findings as stated by Jeff Butler DO PGY-3. MACRO: Jeff Butler discussed the significance and urgency of this critical finding in person with neurology on 07/14/2025 at 2:30 a.m.. (-RCF-) Findings: See findings. Incidental Finding: There are few small hypoattenuating nodules measuring equal to or greater than 1.5 cm in the thyroid gland. (-YCF-) Instructions: Further evaluation with nonemergent thyroid ultrasound. (Managing Incidental Thyroid Nodules Detected on Imaging: White Paper of the ACR Incidental Thyroid Findings Committee. Mariela Sutton. et al. Journal of the [place] [employer],Volume 12, Issue 2, 143 - 150.) [email or web address] Signed by: Angela Doyle 07/14/2025 6:06 AM Dictation workstation: [id number] Cardiology, Vascular, and Other Imaging ECG 12 lead daily Result Date: 07/16/2025 Sinus rhythm with 1st degree AV block with occasional Premature ventricular complexes and Premature atrial complexes Left bundle branch block Abnormal ECG When compared with ECG of 14-JUL-2025 05:26, Sinus rhythm has replaced Ectopic atrial rhythm Cardiac Catheterization Procedure Result Date: 07/15/2025 [facility], Yield Improvement Engineer, [address] [place] [address] Cardiovascular Catheterization Report Patient Name: KITTY VERGARA Performing Physician: [id number] Barbosa MD Study Date: 07/13/2025 Verifying Physician: Artem Barbosa MD MRN/PID: [id number] Qa Specialist/Co-Scrub: Ordering Provider: [id number] BARBOSA Date of 1940 Qa Specialist: /Age: years Gender: M Fellow: [id number] Camila Salinas MD Surgeon: Omar Howell MD Study: GURJIT - Transcatheter Aortic Valve Implantation Indications: Severe aortic stenosis. Informed Consent: Benefits, risks, and alternatives discussed with patient or authorized national sales representative and consent was obtained. Transcatheter Aortic Valve Replacement (TAVR): The right femoral artery was accessed using the transfemoral method. A 6 Fr sheath was inserted followed by the deployment of 2 Proglides. 18 F Sentrant. The left femoral artery was accessed percutaneously and a 6 Gabonese contralateral sheath was placed. A 6 Gabonese temporary pacemaker was inserted through the right jugular vein and advanced to the right ventricular apex. Adequate pacing thresholds were obtained. After crossing the stenotic aortic valve, balloon aortic valvuloplasty was performed with True Dilation 23. Evolut FX+ 34 valve was successfully deployed under rapid ventricular pacing at 160 BPM. Transthoracic echo performed post valve deployment revealed no mitral insufficiency and no central aortic insufficiency and trace/trivial paravalvular aortic insufficiency. No device related events. No bleeding events occurred during the procedure. No vascular access complications were revealed. Access site was closed using 2 ProGlide devices. Hemostasis was achieved in the left femoral artery using a ProGlide device. Temporary pacing wire was sutured in place. Hemo Personnel: + +---------+ Name Duty + +---------+ Dorothy Barbosa MD, MD 1 + +---------+ Fluoroscopy Time: + +- ------+ Bedside Procedure Fluoro Dose: n/a mGy + +- ------+ Hemodynamic Pressures: +----+ + + + +---- ---+---------+ Site Date Time Phase Name Systolic mmHg Diastolic mmHg ED mmHg Mean mmHg +----+ + + + +---- ---+---------+ AO 07/13/2025 Rest 198 75 125 6:13:05 PM +----+ + + + +---- ---+---------+ AO 07/13/2025 Rest 184 84 116 6:28:09 PM +----+ + + + +---- ---+---------+ LV 07/13/2025 Rest 227 1 20 6:28:09 PM +----+ + + + +---- ---+---------+ AO 07/13/2025 Rest 191 72 112 6:28:17 PM +----+ + + + +---- ---+---------+ LV 07/13/2025 Rest 225 1 26 6:28:17 PM +----+ + + + +---- ---+---------+ Complications: No vascular access complications were revealed. No bleeding events occurred during the procedure. No device related events. Cardiac Cath Post Procedure Notes: Post Procedure Diagnosis: Successful GURJIT. Blood Loss: Estimated blood loss during the procedure was 10 mls. Specimens Removed: Number of specimen(s) removed: none. CONCLUSIONS: 1. Successful GURJIT using a Evolut FX+ 34. 2. ASA indefinately. 3. Patient was enrolled in a research study and data was included in the TVT Registry. ICD 10 Codes: Nonrheumatic aortic (valve) stenosis-I35.0 CPT Codes: GURJIT Perc,femoral-84272.62 [id number] Dorothy Barbosa MD Performing Physician Final CONCLUSIONS: 1. Successful GURJIT using a Evolut FX+ 34. 2. ASA indefinately. 3. Patient was enrolled in a research study and data was included in the TVT Registry. Transthoracic Echo (TTE) Limited Result Date: 07/14/2025 [facility], [address] [place] [address] and TRANSTHORACIC ECHOCARDIOGRAM REPORT Patient Name: KITTY Peña JAI Walker Physician: [id number] Marshall Avilez MD Study Date: 07/14/2025 Ordering Provider: [id number] JOSEF DIAS MRN/PID: [id number] Fellow: Nurse: Date of /Age: 1007/06/1940 / Manager Garden: Fer galeano RDCS Gender assigned at Additional Staff: : Height: 175.00 cm Admit Date: 07/13/2025 Weight: 103.00 kg Admission Status: Inpatient - Routine BSA / BMI: 2.18 m2 / 33.63 kg/m2 Blood Pressure: 164/71 mmHg Department Location: [place] [address] Study Type: TRANSTHORACIC ECHO (TTE) LIMITED Diagnosis/ICD: Encounter for other specified special examinations-Z01.89 Indication: S/P TAVR (transcatheter aortic valve replacement); CPT Code: Echo Limited-40416; Doppler Limited-85587; Color Doppler-60683 Patient History: Pertinent History: HTN, Hyperlipidemia, CAD and LE Edema. Bradycardia, GERD, CKD IV, Cardiac Stent. S/p TAVR-34mm Medtronic Evolut. Study Detail: The following Echo studies were performed: 2D, M-Mode, Doppler and color flow. Technically challenging study due to body habitus and patient lying in supine position. Unable to obtain subcostal view. PHYSICIAN INTERPRETATION: Left Ventricle: Left ventricular ejection fraction is normal calculated by Villalobos's biplane at 62%. There are no regional left ventricular wall motion abnormalities. The left ventricular cavity size is normal. Left ventricular diastolic filling was not assessed. Left Atrium: The left atrial size is normal. Right Ventricle: The right ventricle was not well visualized. Unable to determine right ventricular systolic function. Right Atrium: The right atrial size was not well visualized. Aortic Valve: There is a prosthetic aortic valve present. The aortic valve area by VTI is 1.77 cm with a peak velocity of 1.95 m/s. The peak and mean gradients are 15 mmHg and 9 mmHg, respectively with a dimensionless index of 0.56. Echo findings are consistent with normal aortic valve prosthesis structure and function. There is no evidence of aortic valve regurgitation. The patient is s/p 34 mm Evolut Fx+. Mitral Valve: The mitral valve is mildly thickened. There is trace mitral valve regurgitation. Tricuspid Valve: The tricuspid valve was not well visualized. Tricuspid regurgitation was not assessed. The right ventricular systolic pressure could not be estimated. Pulmonic Valve: The pulmonic valve is not well visualized. The pulmonic valve regurgitation was not well visualized. Pericardium: There is no pericardial effusion noted. There is a pericardial fat pad present. Aorta: The aortic root was not well visualized. The ascending aorta was not well visualized. Systemic Veins: The inferior vena cava was not well visualized, IVC inspiratory collapse is not well visualized. In comparison to the previous echocardiogram(s): Compared with study dated 07/13/2025, the patient is now s/p 34 mm Evolut Fx+ TAVR with reduction in aortic gradients. CONCLUSIONS: 1. Poorly visualized anatomical structures due to suboptimal image quality. 2. Left ventricular ejection fraction is normal calculated by Villalobos's biplane at 62%. 3. Echo findings are consistent with normal aortic valve prosthesis structure and function. 4. Unable to determine right ventricular systolic function. 5. No regional left ventricular wall motion abnormalities. 6. Compared with study dated 07/13/2025, the patient is now s/p 34 mm Evolut Fx+ TAVR with reduction in aortic gradients. QUANTITATIVE DATA SUMMARY: 2D MEASUREMENTS: Normal Ranges: LVEDV Index: 52 ml/m2 LV SYSTOLIC FUNCTION: Normal Ranges: EF-A4C View: 61 % (>=55%) EF-A2C View: 60 % EF-Biplane: 62 % LV EF Reported: 62 % AORTIC VALVE: Normal Ranges: AoV Vmax: 1.95 m/s (<=1.7m/s) AoV Peak P.2 mmHg (<20mmHg) AoV Mean P.0 mmHg (1.7-11.5mmHg) LVOT Max Clyde: 1.01 m/s (<=1.1m/s) AoV VTI: 39.30 cm (18-25cm) LVOT VTI: 22.20 cm LVOT Diameter: 2.00 cm (1.8-2.4cm) AoV Area, VTI: 1.77 cm2 (2.5-5.5cm2) AoV Area,Vmax: 1.63 cm2 (2.5-4.5cm2) AoV Dimensionless Index: 0.56 TRICUSPID VALVE/RVSP: Normal Ranges: Est. RA Pressure: 3 [id number] Marshall Avilez MD Electronically signed on 07/14/2025 at 10:27:47 PM Final CONCLUSIONS: 1. Poorly visualized anatomical structures due to suboptimal image quality. 2. Left ventricular ejection fraction is normal calculated by Villalobos's biplane at 62%. 3. Echo findings are consistent with normal aortic valve prosthesis structure and function. 4. Unable to determine right ventricular systolic function. 5. No regional left ventricular wall motion abnormalities. 6. Compared with study dated 07/13/2025, the patient is now s/p 34 mm Evolut Fx+ TAVR with reduction in aortic gradients. ECG 12 lead Result Date: 07/14/2025 Sinus rhythm with frequent Premature ventricular complexes Left ventricular hypertrophy with repolarization abnormality Abnormal ECG When compared with ECG of 05-MAR-2025 11:45, Premature ventricular complexes are now Present TX interval has decreased T wave inversion now evident in Inferior leads T wave inversion now evident in Anterolateral leads QT has shortened Confirmed by Felix Hernandez ([id number]) on 07/14/2025 9:40:02 AM ECG 12 lead daily Result Date: 07/14/2025 Unusual P axis, possible ectopic atrial rhythm with occasional Premature ventricular complexes Left bundle branch block Abnormal ECG When compared with ECG of 13-JUL-2025 19:48, Ectopic atrial rhythm has replaced Sinus rhythm Transthoracic Echo (TTE) Limited Result Date: 07/14/2025 TRANSTHORACIC ECHOCARDIOGRAM REPORT Patient Name: KITTY Peña VERGARA Reading Physician: [id number] Kenia Yoder MD Study Date: 07/13/2025 Ordering Provider: [id number] JOSEF DIAS MRN/PID: [id number] Fellow: Nurse: Date of /Age: 1007/06/1940 Manager Garden: Vinicio galeano RDCS Gender assigned at M Additional Staff: : Height: 177.80 cm Admit Date: Weight: 105.24 kg Admission Status: Inpatient - Routine BSA / BMI: 2.22 m2 / 33.29 kg/m2 Blood Pressure: 130/62 mmHg Department Location: [facility] [employer] Improvement Engineer Study Type: TRANSTHORACIC ECHO (TTE) LIMITED Diagnosis/ICD: Nonrheumatic aortic (valve) stenosis-I35.0 Indication: TAVR Periprocedure CPT Code: Echo Limited-26257; Doppler Limited-54954; Color Doppler-84554 Patient History: Valve Disorders: Aortic Stenosis. Diabetes: Yes Pertinent History: HTN, Hyperlipidemia, CAD and LE Edema. Bradycardia, GERD, CKD IV, Cardiac Stent. Study Detail: The following Echo studies were performed: 2D, M-Mode, Doppler and color flow. Technically challenging study due to patient lying in supine position. PHYSICIAN INTERPRETATION: Left Ventricle: The left ventricle was not well visualized. The left ventricular ejection fraction could not be measured. The left ventricular cavity size was not assessed. Left ventricular diastolic filling was not assessed. LV appear to have grossly normal systolic function without obvious regional wall motion abnormalities though not well seen. Unable to estimate LVEF. Left Atrium: The left atrial size was not assessed. Right Ventricle: The right ventricle was not well visualized. Unable to determine right ventricular systolic function. Right Atrium: The right atrial size was not well visualized. Aortic Valve: The aortic valve was not well visualized. The aortic valve area by VTI is 1.05 cm with a peak velocity of 3.20 m/s. The peak and mean gradients are 41 mmHg and 22 mmHg, respectively with a dimensionless index of 0.33. There is moderate to severe aortic valve cusp calcification. There is no evidence of aortic valve regurgitation. Baseline- AV not well seen though appears to be moderate to severely calcified/thickened with gradients of 41/22mmHg and DI of 0.33 with no AI. The DI is consistent with moderate though gradients are lower than expected for that degree of . Proceeded to TAVR. Mitral Valve: The mitral valve is normal in structure. There is moderate mitral annular calcification. There is trace mitral valve regurgitation. Tricuspid Valve: The tricuspid valve was not well visualized. Tricuspid regurgitation was not assessed. Pulmonic Valve: The pulmonic valve is not well visualized. Pulmonic valve regurgitation was not assessed. Pericardium: Pericardial effusion was not well visualized. Aorta: The aortic root is abnormal. There is mild dilatation of the aortic root. Systemic Veins: The inferior vena cava was not assessed, IVC inspiratory collapse was not assessed. In comparison to the previous echocardiogram(s): Compared with study dated 10/20/2024, [facility], the prior AV gradients were 73/44mmHg with DI of 0.23 which is consistent with severe and there was no AI at that time. Today's gradients are lower than on prior exam likely due to technically difficult images with limited interrogation in that the LV systolic function appears to be preserved today. Prior LVEF was 67%. Post Transcatheter Aortic Valve Placement (TAVR): The peak instantaneous gradient of the aortic valve is 6.9 mmHg. The mean gradient of the aortic valve is 4.0 mmHg. There is no prosthetic aortic valve regurgitation. There is no nola-prosthetic aortic valve regurgitation. CONCLUSIONS: 1. Poorly visualized anatomical structures due to suboptimal image quality. 2. The left ventricle was not well visualized. The left ventricular ejection fraction could not be measured. 3. LV appear to have grossly normal systolic function without obvious regional wall motion abnormalities though not well seen. Unable to estimate LVEF. 4. Unable to determine right ventricular systolic function. 5. There is moderate mitral annular calcification. 6. Baseline- AV not well seen though appears to be moderate to severely calcified/thickened with gradients of 41/22mmHg and DI of 0.33 with no AI. The DI is consistent with moderate though gradients are lower than expected for that degree of . Proceeded to TAVR. 7. S/p 34mm Medtronic Evolut TAVR with gradients of 6.9/4mmHg and no obvious AI. 8. Compared with study dated 10/20/2024, [facility], the prior AV gradients were 73/44mmHg with DI of 0.23 which is consistent with severe and there was no AI at that time. Today's gradients are lower than on prior exam likely due to technically difficult images with limited interrogation in that the LV systolic function appears to be preserved today. Prior LVEF was 67%. QUANTITATIVE DATA SUMMARY: 2D MEASUREMENTS: Normal Ranges: Ao Root d: 3.70 cm (2.0-3.7cm) AORTIC VALVE: Normal Ranges: AoV Vmax: 3.20 m/s (<=1.7m/s) AoV Vmax Post TAVR: 1.31 m/s (<=1.7m/s) AoV Peak P.0 mmHg (<20mmHg) AoV Peak PG Post TAVR: 6.9 mmHg (<20mmHg) AoV Mean P.0 mmHg (1.7-11.5mmHg) AoV Mean PG Post TAVR: 4.0 mmHg (1.7-11.5mmHg) LVOT Max Clyde: 1.02 m/s (<=1.1m/s) LVOT Max Clyde Post TAVR: 0.98 m/s (<=1.1m/s) AoV VTI: 74.20 cm (18-25cm) AoV VTI Post TAVR: 26.80 cm (18-25cm) LVOT VTI: 24.80 cm LVOT VTI Post TAVR: 23.50 cm LVOT Diameter: 2.00 cm (1.8-2.4cm) LVOT Diameter Post TAVR: 2.00 cm (1.8-2.4cm) AoV Area, VTI: 1.05 cm2 (2.5-5.5cm2) AoV Area, VTI Post TAVR: 2.75 cm2 (2.5-5.5cm2) AoV Area,Vmax: 1.00 cm2 (2.5-4.5cm2) AoV Area,Vmax Post TAVR: 2.35 cm2 (2.5-4.5cm2) AoV Dimensionless Index: 0.33 AoV Dimensionless Index Post TAVR: 0.88 [id number] Kenia Yoder MD Electronically signed on 07/14/2025 at 8:12:45 AM Final CONCLUSIONS: 1. Poorly visualized anatomical structures due to suboptimal image quality. 2. The left ventricle was not well visualized. The left ventricular ejection fraction could not be measured. 3. LV appear to have grossly normal systolic function without obvious regional wall motion abnormalities though not well seen. Unable to estimate LVEF. 4. Unable to determine right ventricular systolic function. 5. There is moderate mitral annular calcification. 6. Baseline- AV not well seen though appears to be moderate to severely calcified/thickened with gradients of 41/22mmHg and DI of 0.33 with no AI. The DI is consistent with moderate though gradients are lower than expected for that degree of . Proceeded to TAVR. 7. S/p 34mm Medtronic Evolut TAVR with gradients of 6.9/4mmHg and no obvious AI. 8. Compared with study dated 10/20/2024, [facility], the prior AV gradients were 73/44mmHg with DI of 0.23 which is consistent with severe and there was no AI at that time. Today's gradients are lower than on prior exam likely due to technically difficult images with limited interrogation in that the LV systolic function appears to be preserved today. Prior LVEF was 67%. ECG 12 lead daily Result Date: 07/14/2025 Sinus rhythm with 1st degree AV block with occasional Premature ventricular complexes Left bundle branch block Abnormal ECG When compared with ECG of 13-JUL-2025 14:14, TX interval has increased Left bundle branch block is now Present LDA: Urethral Catheter (Active) Placement Date/Time: 07/16/25 1200 Hand Hygiene Completed: Yes Catheter Balloon Size: 5 mL Urine Returned: Yes Number of days: 1 NUTRITION: Adult diet Regular EMERGENCY CONTACT: Extended Emergency Contact Information Primary Emergency Contact: Vicky Vergara (Adriel) Mobile Relation: 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 Regional Sales Coordinator needed? No CODE STATUS: Full Code DISPO: Discharge Planning Living Arrangements: Spouse/significant other Support Systems: Spouse/significant other, Family members Assistance Needed: IPTA Type of Residence: Private residence Number of Stairs to Enter Residence: 0 Number of Stairs Within Residence: 0 Do you have animals or pets at home?: No Who is requesting discharge planning?: Provider Home or Post Acute Services: None Expected Discharge Disposition: Detention Facility (SNF) Does the patient need discharge transport arranged?: No AMPAC: Daily Activity - Total Score: 12 FOLLOWUP: Future Appointments Date Time Provider Department Center 07/22/2025 11:20 AM Matilde Regan MD [facility] 07/30/2025 10:30 AM Srikanth Howell APRN-MINE ENGINEERING SUPERVISOR, DNP [id number] [facility] 08/13/2025 1:30 PM BRAD [id number] [id number] [facility] 08/31/2025 10:00 AM Daniel Almanzar MD [id number] [facility] 10/23/2025 10:45 AM Nima Fay MD [id number] [facility] 07/15/2026 9:30 AM BRAD [id number] CARD1 [id number] [facility] [1] Medications Prior to Admission Medication Sig Dispense Refill Last Dose/Taking acetaminophen (Tylenol 8 HOUR) 650 mg ER tablet Take 1 tablet (650 mg) by mouth every 8 hours if needed for mild pain (1 - 3). Do not crush, chew, or split. Past Month allopurinol (Zyloprim) 300 mg tablet Take 1 tablet by mouth once daily 90 tablet 0 07/12/2025 amLODIPine (Norvasc) 10 mg tablet Take 1 tablet (10 mg) by mouth once daily. 90 tablet 3 07/12/2025 aspirin 81 mg chewable tablet Chew 1 tablet (81 mg) once daily. 30 tablet 11 07/12/2025 blood sugar diagnostic (Blood Glucose Test) 1 strip early in the morning.. 100 strip 11 07/12/2025 bumetanide (Bumex) 0.5 mg tablet Take 1 tablet (0.5 mg) by mouth once daily. 30 tablet 11 07/12/2025 clopidogrel (Plavix) 75 mg tablet Take 1 tablet (75 mg) by mouth once daily. Do not fill before January 26, 2025. 90 tablet 3 07/12/2025 ezetimibe (Zetia) 10 mg tablet Take 1 tablet (10 mg) by mouth once daily. 30 tablet 11 07/12/2025 gabapentin (Neurontin) 300 mg capsule Take 1 capsule (300 mg) by mouth 2 times a day. 180 capsule 1 07/12/2025 glucosamine/chondr hogue A sod (OSTEO BI-FLEX ORAL) Take 1 capsule by mouth once daily. 07/12/2025 insulin glargine-lixisenatide (Soliqua 100/33) 100 unit-33 mcg/mL insulin pen Inject 19 Units under the skin once daily. 15 mL 11 07/12/2025 lansoprazole (Acid Summer Clerk, lansoprazole,) [address] capsule Take 1 capsule (15 mg) by mouth once daily. 07/12/2025 pen needle, diabetic 31 gauge x 5/16" needle 1 each once daily. 100 each 3 07/12/2025 cetirizine (ZyrTEC) 10 mg tablet Take 1 tablet (10 mg) by mouth once daily. (Patient not taking: Reported on 07/13/2025) Not Taking empagliflozin (Jardiance) 10 mg tablet Take 1 tablet (10 mg) by mouth once daily. 30 tablet 5 07/11/2025 Kitty Stallworth" is a 85 y.o. male on day 5 of admission presenting with Nonrheumatic aortic (valve) stenosis. Subjective Pt seen and interviewed. Sleeping on interview, does not endorse new issues while on MPU. Per sitter, patient's family was in the room recently, though went downstairs. Patient does not endorse SI/HI. Patient Objective Last Recorded Vitals Blood pressure 161/74, pulse 78, temperature 36.6 C (97.9 F), resp. rate 18, height 1.753 m (5' 9"), weight 109 kg (239 lb 3.2 oz), SpO2 97%. Oxygen Therapy Pulse Ox (24 hr min): 92 Medical Gas Therapy: Supplemental oxygen Medical Gas Delivery Method: Nasal cannula O2 Flow Rate (L/min): 2 L/min Sleep Log No Safety Checks orders active in given range Review of Systems Psychiatric ROS - Adult Anxiety: Negative Depression: negative Delirium: disorientation, sleep-wake abnormal, and waxing and waning Psychosis: negative Daphney: negative Safety Issues: none MENTAL STATUS EXAM General Appearance: Resting comfortably in bed, no restraints, no distress, opens eyes to voice Attitude/Behavior: cooperative, appropriate eye contact Motor: antigravity in all extremities Speech: slow, soft, with mixed aphasia and dysarthric. Gait/Station: not assessed Mood: Unable to assess Affect: Flat Thought Process: unable to assess Thought Associations: unable to assess Thought Content: unable to assess Insight: lacks insight Judgment: lacks judgement Cognition: unable to assess Psychiatric Risk Assessment Violence Risk Assessment: none Acute Risk of Harm to Others is Considered: low Suicide Risk Assessment: none Protective Factors against Suicide: social support/connectedness Acute Risk of Harm to Self is Considered: moderate Relevant Results Scheduled medications Scheduled Medications[1] Continuous medications Continuous Medications[2] PRN medications PRN Medications[3] Results from last 72 hours Lab Units 07/17/25 0904 07/16/25 0848 SODIUM mmol/L 139 138 POTASSIUM mmol/L 4.4 3.8 BUN mg/dL 33* 35* CREATININE mg/dL 2.53* 2.77* CALCIUM mg/dL 9.1 9.1 MAGNESIUM mg/dL -- 2.17 Results from last 72 hours Lab Units 07/17/25 0904 07/16/25 0848 WBC AUTO x10*3/uL 9.3 9.6 HEMOGLOBIN g/dL 12.1* 11.5* HEMATOCRIT % 37.5* 36.4* PLATELETS AUTO x10*3/uL 170 163 Results from last 72 hours Lab Units 07/16/25 0848 INR 1.1 Assessment & Plan Mixed level of activity delirium due to multiple etiologies, persistent Kitty Stallworth" is a 85 y.o. male with no past psychiatric history and a past medical history of HTN, HLD, DM2, CKD, Gout, OA, obesity admitted on 07/13/2025 for a scheduled TAVR procedure. 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 Psychiatry consulted on 07/15/25 for recommendations regarding management of intermittent agitation/delirium. Mr. Vergara is on day four of his hospital stay where on days 2 and 3 of stay, primary team is noticing a combination of hyperactivity, becoming agitated and attempting to climb out of bed, where he was unable to be redirected requiring PRN antipsychotics and benzodiazepines. He has received PRN olanzapine 5mg IM for agitation at 1999 on 07/14, required dose of Haldol 1g IM on 07/15/25 after arriving to floor at 1047, and given Diazepam 2mg IM at 2226 on 07/15/25. On bedside exam this morning, patient was lethargic, opens eyes to voice, appropriate eye contact and cooperative, but unable to follow simple commands, presenting with mixed aphasia in setting of recent infarcts. Was told he was trying to climb out of bed this morning, needing staff to redirect, and there is concern for further injury and inability for cooperation with services such as physical therapy which would promote discharge to acute rehab. This picture is concerning for a mixed delirium. We recommend initiating nightly 2.5mg PO olanzapine for further stabilization, as well as Olanzapine 2.5 BID PO/IM as needed for agitation if needed in addition to scheduled dose. Recommend discontinuing Valium as a PRN for agitation given that concomitant use with Olanzapine runs the risk of respiratory depression. Also discussed that he would be an appropriate transfer to the Med Psych Unit if beds are available and accepting team agrees. Psychiatry team will continue to follow and recommend medication adjustments as appropriate. ASSESSMENT AND PLAN Kitty Stallworth" is a 85 y.o. male with no past psychiatric history and a past medical history of HTN, HLD, DM2, CKD, Gout, OA, obesity admitted on 07/13/2025 for a scheduled TAVR procedure. 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 Psychiatry consulted on 07/15/25 for recommendations regarding management of intermittent agitation/delirium. Mr. Vergara was agitated overnight despite receiving scheduled PO 2.5mg Zyprexa on 10/23. He received Zyprexa 2.5mg IM PRN overnight at 0127 07/17. His presentation appears to be a combination of hyperactivity, becoming agitated and attempting to climb out of bed, where he was unable to be redirected requiring PRN antipsychotics and benzodiazepines and hypoactivity with periods of increased lethargy. On bedside exam this morning, patient was lethargic, opens eyes to voice, appropriate eye contact and cooperative, but unable to follow simple commands, no speech production. With continued agitation (pushing nursing staff, trying to climb out of bed overnight, now in soft wrist restraints) there is concern for self injury and inability for cooperation with services such as physical therapy which would promote discharge to acute rehab. This picture is concerning for a mixed delirium. We recommend continuing nightly 2.5mg PO olanzapine for further stabilization, as well as continuing Olanzapine 2.5 BID PO/IM as needed for agitation if needed. Due to continued agitation, recommend transfer to the [facility] Psych [facility], for patient safety and delirium improvement. Psychiatry team will continue to follow and recommend medication adjustments as appropriate. 07/18: more somnolent though cooperative overall. Will cont recommendations as below for now, reassess on 07/19. No sitter required from psych perspective. IMPRESSION #Mixed delirium Impression: Delirium, mixed Recommendations: Safety/Monitoring: Patient does not meet criteria for inpatient psychiatric admission Patient does not require 1:1 observation, given enhanced safety features Daily interdisciplinary safety and planning huddle with Psychiatry Video monitoring for delirium and impulsivity Psychiatry will follow patient daily while on the MPU Medications: -CONTINUE Olanzapine 2.5mg PO at bedtime scheduled -CONTINUE Olanzapine 2.5 PO/IM BID as needed for agitation -Delirium precautions as stated below. Considerations: Therapies recommended: recreational therapy and will continue to assess for benefit and meaningful participation Groundskeeping Maintenance - Confucianist Delirium Guidelines Provide glasses, hearing aids and/or communication boards as needed for impairments Frequent reorientation, minimize room and staff changes Open blinds during the day, dark/quiet room at night Minimal interruptions and daytime naps Early evaluation and intervention by PT, out of bed as tolerated Minimize use of restraints Minimize use of benzodiazepines, anticholinergic medications, and opiates (while ensuring adequate treatment of pain) Keep Mg>2, K>4 (as able) Ensure regular bowel and bladder function (as able) Disposition/Discharge Planning: SW following, appreciate assistance Multidisciplinary Rounding Consulting Physician, Charge Nurse, and Nurse Medication Consent N/A - Consult Service Jude Eddy MD [1] amLODIPine, 2.5 mg, oral, Daily aspirin, 81 mg, oral, Daily bisacodyl, 5 mg, oral, Nightly bumetanide, 0.5 mg, oral, Daily clopidogrel, 75 mg, oral, Daily docusate sodium, 100 mg, oral, BID ezetimibe, 10 mg, oral, Daily gabapentin, 300 mg, oral, BID heparin (porcine), 5,000 Units, subcutaneous, q8h insulin glargine, 10 Units, subcutaneous, Nightly insulin lispro, 0-10 Units, subcutaneous, TID AC OLANZapine, 2.5 mg, oral, Nightly pantoprazole, 40 mg, oral, Daily before breakfast Or pantoprazole, 40 mg, intravenous, Daily before breakfast perflutren lipid microspheres, 0.5-10 mL of dilution, intravenous, Once in imaging tamsulosin, 0.4 mg, oral, Daily [2] [3] PRN medications: acetaminophen OR acetaminophen OR acetaminophen, benzocaine-menthol, dextrose, dextrose, glucagon, glucagon, lidocaine-epinephrine, melatonin, OLANZapine, ondansetron OR ondansetron, oxygen, phenoL, prochlorperazine OR prochlorperazine OR prochlorperazine, traMADol Subjective Data: More calm and cooperative today. Shakes head when asked if in pain or if anything is bothering him. Overnight Events: Some agitation. Got 2.5 mg Zyprexa IM. Today's Events/Plans: -Good UO via de oliveira. Started Flomax 0.4mg -PT/OT worked w/patient. -PMR consult placed for rehab potential/eval -Transfer to [facility] per Psychiatry for goal to liberate patient from sitter/restraints -Will remain primary w/ co-management Objective Data: Last Recorded Vitals: Vitals: 07/17/25 0936 07/17/25 0937 07/17/25 1100 07/17/25 1200 BP: 150/79 BP Location: Left arm Patient Position: Lying Pulse: 81 78 Resp: 20 Temp: 36.1 C (97 F) TempSrc: Temporal SpO2: 98% 97% 99% Weight: Height: Last Labs: CBC - 07/17/2025: 9:04 AM 9.3 12.1 170 37.5 CMP - 07/17/2025: 9:04 AM 9.1 6.8 18 --- 0.7 3.2 3.8 12 91 PTT - No results in last year. 1.1 12.7 _ TROPHS Date/Time Value Ref Range Status 03/04/2025 02:12 PM 11 0 - 20 ng/L Final 03/04/2025 01:10 PM 13 0 - 20 ng/L Final 10/18/2024 03:57 PM 11 0 - 20 ng/L Final BNP Date/Time Value Ref Range Status 10/18/2024 03:57 PM 321 0 - 99 pg/mL Final HGBA1C Date/Time Value Ref Range Status 07/15/2025 06:34 AM 7.0 See comment % Final 03/09/2025 08:32 AM 6.6 <5.7 % Final Comment: For someone without known diabetes, a hemoglobin A1c value of 6.5% or greater indicates that they may have diabetes and this should be confirmed with a follow-up test. For someone with known diabetes, a value <7% indicates that their diabetes is well controlled and a value greater than or equal to 7% indicates suboptimal control. A1c targets should be individualized based on duration of diabetes, age, comorbid conditions, and other considerations. Currently, no consensus exists regarding use of hemoglobin A1c for diagnosis of diabetes for children. 09/05/2024 07:38 AM 7.2 See comment % Final LDLCALC Date/Time Value Ref Range Status 07/15/2025 06:34 AM 76 <=99 mg/dL Final Comment: Near Borderline AGE Desirable Optimal High High Very High 0-19 Y 0 - 109 --- 110-129 >/= 130 ---- 20-24 Y 0 - 119 --- 120-159 >/= 160 ---- >24 Y 0 - 99 100-129 130-159 160-189 >/=190 LDL Cholesterol is calculated using the Friedewald equation. 09/26/2024 07:54 AM 42 <=99 mg/dL Final Comment: Near Borderline AGE Desirable Optimal High High Very High 0-19 Y 0 - 109 --- 110-129 >/= 130 ---- 20-24 Y 0 - 119 --- 120-159 >/= 160 ---- >24 Y 0 - 99 100-129 130-159 160-189 >/=190 VLDL Date/Time Value Ref Range Status 07/15/2025 06:34 AM 31 0 - 40 mg/dL Final 09/26/2024 07:54 AM 60 0 - 40 mg/dL Final 03/29/2022 07:54 AM SEE COMMENT 0 - 40 mg/dL Final Comment: Unable to calculate VLDL. 03/29/2020 08:37 AM SEE COMMENT 0 - 40 mg/dL Final Comment: Unable to calculate VLDL. Last I/O: I/O last 3 completed shifts: In: 120 (1.1 mL/kg) [P.O.:120] Out: 1254 (11.6 mL/kg) [Urine:1254 (0.3 mL/kg/hr)] Weight: 108.5 kg Past Cardiology Tests (Last 3 Years): EKG: ECG 12 lead daily 07/14/2025 (Preliminary) ECG 12 lead daily 07/13/2025 (Preliminary) ECG 12 lead 07/13/2025 ECG 12 Lead 03/05/2025 ECG 12 lead 03/04/2025 ECG 12 lead 03/04/2025 ECG 12 lead STAT 01/19/2025 Electrocardiogram 12 Lead 01/19/2025 ECG 12 lead (Clinic Performed) 12/08/2024 ECG 12 lead ECG 12 lead 05/29/2024 Echo: Transthoracic Echo (TTE) Limited 07/14/2025 Transthoracic Echo (TTE) Limited 07/13/2025 Transthoracic Echo (TTE) Complete 10/20/2024 Ejection Fractions: EF Date/Time Value Ref Range Status 07/14/2025 03:18 PM 62 % 10/20/2024 07:19 AM 67 % Cath: Cardiac Catheterization Procedure 07/13/2025 Cardiac Catheterization Procedure 01/19/2025 Stress Test: No results found for this or any previous visit from the past 1095 days. Cardiac Imaging: No results found for this or any previous visit from the past 1095 days. Inpatient Medications: Scheduled Medications[1] PRN Medications[2] Continuous Medications[3] Physical Exam: General: NAD, lying in bed Skin: warm and dry Head/ neck: no JVD seen at 90 degrees Cardiac: RRR, S1, S2 Pulm: CTAB, room air GI: soft, nontender Extremities: no LE edema Neuro: expressive aphasia Psych: agitated at times Assessment/Plan Kitty Vergara is a 85 y.o. male with a PMH of BPH, GERD, CKD stage 4, DMII hgAIc 6.6, CAD s/p LHC/RHC with PCI- 01/19/25, on Plavix and ASA 81mg, bardycardia, and severe non-rheumatic aortic stenosis. Pt presented on 07/13/2025 for elective TAVR. Overnight on 07/14/25 BAT called for abnormal speech and AMS concerning for stroke. Transferred to [facility] service for management. TAVR 07/14 - TTE 07/14 EF 62%. normal aortic valve prosthesis structure and function. No WMA. Compared with study dated 07/13/2025, the patient is now s/p 34 mm Evolut Fx+ TAVR with reduction in aortic gradients. - CXR 07/14 Mild pulmonary vascular congestion compared to the previous study. - 07/15 Home bumex dose is 0.5, increased to 1mg on 07/13. Lowered back to 0.5 since he had confusion and taking less PO intake today. - Single antiplatelet for life is recommended post tavr but given with pt h xof PCI 01/19/25 pt will need ASA and Plavix until next year 01/19/26 Acute Stroke 07/14 - expressive aphasia - CT head and CTA head/neck which did not demonstrate any new stroke or any large vessel occlusion. - Carodis with Left greater than right with stenosis of the distal left common carotid artery measuring up to approximately 60-65%. Nonspecific white matter changes most likely represent small-vessel ischemic disease in a patient of this age. No evidence of acute cortical infarct, mass effect, or ICH. There are areas of encephalomalacia in the cerebellum which could reflect remote infarcts. - MRI brain 07/14 scattered areas of acute to early subacute infarction within the cerebral hemispheres bilaterally left greater than right as well as within the left cerebellar hemisphere as described above. The dominant area of acute to early subacute infarction is identified within the left temporoparietal region. The above findings are superimposed upon moderate brain parenchymal volume loss. There are scattered as well as more patchy and confluent nonspecific white matter changes again noted within cerebral hemispheres bilaterally as well as ill-defined increased signal on the FLAIR and T2 images overlying the brainstem which while nonspecific, given the patient's age, likely represent sequelae of more remote small-vessel ischemic change. Additional small foci of bright signal on the T2 images are identified within the subinsular regions, basal ganglia, and thalami bilaterally suggesting incidental mildly prominent perivascular spaces and/or scattered more remote lacunar infarctions.Scattered areas of encephalomalacia are identified within the cerebellum as well as along the posterior right occipital lobe. - Neuro consulted, no objection to DAPT, defer to primary. Follow up stroke clinic (requested), continue speech therapy. Signed off - PT/OT - 07/15 Combative, required haldol. - 07/16 Psych consulted for agitation mgmt - Hx fall day of TAVR, slipped off chair in kitchen and landed on buttocks. No trauma. -07/17--Transfer to [facility] per Psychiatry for goal to liberate patient from sitter/restraints -Will remain primary w/ co-management CKD Stage 4 - Cr today 2..53 - Baseline 2-2.2 - 07/15 Reduce bumex back to home dose of 0.5 CAD HLP - s/p PCI to prox-mid LAD using [address] Jessie Fay - Single antiplatelet for life is recommended post tavr but given with pt h xof PCI 01/19/25 pt will need ASA and Plavix until next year 01/19/26 - lipid panel ordered per neuro request ->HDL 35.4, LDL 76,Trigs 154 - Allergy to statin, continue zetia HTN - Pt with SBP wolf 144-167 - Blood pressure goals: avoid hypotension SBP <100 that could worsen cerebral perfusion, permissive HTN - Continue amlodipine 2.5mg daily DM - HgbA1C 6.6 02/2025 - (7.0) rechecked HgbA1C per neuro request - Lantus 10u+SS Urinary Retention BPH - Hx ureteroscopy, cysto with retrograde pyelogram and bladder lesion ablation 10/28/24. Cysto showed severe bladder trabeculation, no mass. Prostate enlargement. - Hx requiring de oliveira for 2 months, was on flomax and proscar - Hx cystoscopy showed severe bladder trabeculation, no mass, prostate enlargement S/P Endoscopic Anatomical Prostate Enucleation ~ HoLEP 03/30/25 with improvement in emptying - 07/15 Patient wants to urinate out of bed, for safety reasons kept in bed, unable to follow command to urinate in urinal. Became agitated. straight cath Q shift PRN urine >400 on bladder scan - 07/16 De Oliveira placed for continued need of straight cath (rec only 1/2 inflating balloon to decrease risk of potential injury . 07/17-Good UO via de oliveira. Started Flomax 0.4 mg daily DVT ppx:heparin Sq DISPO: pending PT/OT and speech eval Code Status: Full Code All labs, vital signs, tests & imaging results, and medications were reviewed. Seen and discussed with Dr. Ady Ridley, DIESEL SERVICE APPRENTICE-[employer]INE ENGINEERING SUPERVISOR [1] Scheduled medications Medication Dose Route Frequency amLODIPine 2.5 mg oral Daily aspirin 81 mg oral Daily bumetanide 0.5 mg oral Daily clopidogrel 75 mg oral Daily docusate sodium 100 mg oral BID ezetimibe 10 mg oral Daily gabapentin 300 mg oral BID heparin (porcine) 5,000 Units subcutaneous q8h insulin glargine 10 Units subcutaneous Nightly insulin lispro 0-10 Units subcutaneous TID AC OLANZapine 2.5 mg oral Nightly pantoprazole 40 mg oral Daily before breakfast Or pantoprazole 40 mg intravenous Daily before breakfast perflutren lipid microspheres 0.5-10 mL of dilution intravenous Once in imaging tamsulosin 0.4 mg oral Daily [2] PRN medications Medication acetaminophen Or acetaminophen Or acetaminophen benzocaine-menthol dextrose dextrose glucagon glucagon lidocaine-epinephrine melatonin OLANZapine ondansetron Or ondansetron oxygen phenoL prochlorperazine Or prochlorperazine Or prochlorperazine traMADol [3] Continuous Medications Medication Dose Last Rate Cosigned by Kapil Garsia MD at 07/17/2025 2:55 PM EDT Associated attestation - Kapil Garsia MD - 07/17/2025 2:55 PM EDT This is a shared visit. I have reviewed the Advanced Practice Provider's encounter note, approve the Advanced Practice Provider's documentation, and provide the following additional information from my personal encounter. Please see my progress note from today for additional details. Kapil Garsia MD Physical Therapy Physical Therapy Treatment Patient Name: Kitty Allen Department: [place] [id number] Room: [address] [place] [address] Today's Date: 07/17/2025 Time Calculation Start Time: 935 Stop Time: 1003 Time Calculation (min): 27 min Assessment/Plan PT Assessment Barriers to Discharge Home: Caregiver assistance, Physical needs, Cognition needs Caregiver Assistance: Caregiver assistance needed per identified barriers - however, level of patient's required assistance exceeds assistance available at home Cognition Needs: Insight of patient limited regarding functional ability/needs, Cognition-related high falls risk Physical Needs: Ambulating household distances limited by function/safety, 24hr mobility assistance needed, 24hr ADL assistance needed, High falls risk due to function or environment Evaluation/Treatment Tolerance: Patient tolerated treatment well Medical Staff Made Aware: Yes End of Session Communication: Bedside nurse, Polysom Tech Assessment Comment: Pt demos improved mobility & command following from previous session. Remains limited by imp cognition, dec strength, balance, & endurance. Would benefit from HIGH intensity therapy at discharge for improve safety and indep with functional mobility. End of Session Patient Position: Bed, 3 rail up, Alarm on (B soft wrist retraints) PT Plan Treatment/Interventions: Bed mobility, Transfer training, Gait training, Balance training, Neuromuscular re-education, Strengthening, Endurance training, Therapeutic exercise, Therapeutic activity, Home exercise program PT Plan: Ongoing PT PT Frequency for Current Admission: 5 times per week during this acute inpatient hospitalization PT Discharge Recommendations: High intensity level of continued care Equipment Recommended upon Discharge: (tbd) PT Recommended Transfer Status: Assist x2 PT - OK to Discharge: Yes PT Visit Info: PT Received On: 07/17/25 Response to Previous Treatment: Patient unable to report, no changes reported from family or staff General Visit Information: General Reason for Referral: Pt admitted for elective TAVR on 07/13. Post op course c/b significant aphasia resulting in BAT. NIHSS 11. CTH: old L caudate hypodensity and ?R temporal hypodensity. CTA H/N with patent anterior and posterior circulations. OOW TNK. Not a candidate for EVT given no LVO. Suspect etiology of symptoms either recrudesce of old stroke vs new ischemic infarct 2/2 cardio embolic origin Past Medical History Relevant to Rehab: BPH, GERD, CKD stage 4, DMII hgAIc 6.6, CAD s/p LHC/RHC with PCI- 01/19/25, on Plavix and ASA 81mg, bardycardia, and severe non-rheumatic aortic stenosis. Family/Caregiver Present: Yes Caregiver Feedback: Spouse (Adriel) present, supportive Co-Treatment: OT Co-Treatment Reason: ampac <10 previous sessions, to maximize pt safety & therapeutic potential Prior to Session Communication: Bedside nurse Patient Position Received: Bed, 3 rail up, Alarm off, not on at start of session Preferred Learning Style: auditory, verbal, kinesthetic General Comment: Pt supine in bed upon arrival; expressing desire to go home; B soft wrist restraints Subjective Precautions: Precautions Hearing/Visual Limitations: has hearing aides, but not wearing Medical Precautions: Fall precautions, Cardiac precautions, Oxygen therapy device and L/min (2L) Objective Pain: Pain Assessment Pain Assessment: 0-10 0-10 (Numeric) Pain Score: (denies pain, but intermittently stating "ouch" but unable to ID source of pain/discomfort) Pain Interventions: Repositioned, Ambulation/increased activity Response to Interventions: Resting quietly Cognition: Cognition Overall Cognitive Status: Impaired Orientation Level: Disoriented to place, Disoriented to time, Disoriented to situation Following Commands: (Pt following ~50-75% of simple commands with inc verbal, visual, & tactile cueing) Cognition Comments: Pt generally cooperative & redirectable, though demo inc frustration "I want to go home" Insight: Severe Impulsive: Severely Coordination: Movements are Fluid and Coordinated: Yes Postural Control: Postural Control Postural Control: Within Functional Limits Static Sitting Balance Static Sitting-Balance Support: Bilateral upper extremity supported, Feet supported Static Sitting-Level of Assistance: Contact guard Static Standing Balance Static Standing-Balance Support: Bilateral upper extremity supported Static Standing-Level of Assistance: Minimum assistance (x2) Dynamic Standing Balance Dynamic Standing-Balance Support: Bilateral upper extremity supported Dynamic Standing-Level of Assistance: Minimum assistance (x2) Activity Tolerance: Activity Tolerance Endurance: Tolerates 10 - 20 min exercise with multiple rests Treatments: Bed Mobility Bed Mobility: Yes Bed Mobility 1 Bed Mobility 1: Supine to sitting Level of Assistance 1: Minimum assistance, +2, Moderate verbal cues Bed Mobility Comments 1: HOB elevated; inc time to complete with inc verbal & tactile cueing to initiate transfer Bed Mobility 2 Bed Mobility 2: Sitting to supine Level of Assistance 2: Maximum assistance, +2 Bed Mobility Comments 2: assist at trunk & LEs - pt with inc resistance 2/2 wanting to leave Ambulation/Gait Training Ambulation/Gait Training Performed: Yes Ambulation/Gait Training 1 Surface 1: Level tile Device 1: No device Assistance 1: Hand held assistance, Minimum assistance (x2) Quality of Gait 1: Decreased step length, Inconsistent stride length, Soft knee(s) (inc difficulty advancing RLE with mild buckling noted) Comments/Distance (ft) 1: ~3' laterally L/R Ambulation/Gait Training 2 Surface 2: Level tile Device 2: No device Assistance 2: Hand held assistance, Minimum assistance (x2) Quality of Gait 2: Decreased step length, Inconsistent stride length, Diminished heel strike, Narrow base of support, Ataxic, Soft knee(s) (R knee mild buckling with difficulty advancing; dec lateral WSing) Comments/Distance (ft) 2: 4 steps forward & back Transfers Transfer: Yes Transfer 1 Technique 1: Sit to stand, Stand to sit Transfer Level of Assistance 1: Arm in arm assistance, Minimum assistance, +2, Minimal verbal cues Trials/Comments 1: x2 trials; cueing 2/2 impulsivity Stairs Stairs: No Outcome Measures: [facility] Basic Mobility Turning from your back to your side while in a flat bed without using bedrails: A lot Moving from lying on your back to sitting on the side of a flat bed without using bedrails: A lot Moving to and from bed to chair (including a wheelchair): Total Standing up from a chair using your arms (e.g. wheelchair or bedside chair): Total To walk in hospital room: Total Climbing 3-5 steps with railing: Total Basic Mobility - Total Score: 8 Education Documentation Precautions, taught by Johanna Patel PT at 07/17/2025 12:27 PM. Learner: Significant Other, Patient Readiness: Acceptance Method: Explanation Response: Needs Reinforcement Comment: safe mobility, PT poc Mobility Training, taught by Johanna Patel PT at 07/17/2025 12:27 PM. Learner: Significant Other, Patient Readiness: Acceptance Method: Explanation Response: Needs Reinforcement Comment: safe mobility, PT poc OP EDUCATION: Care Plan Goals: Encounter Problems Encounter Problems (Active) Balance Patient to demo static standing with unilateral UE support, performing single UE task with CGAx1, no sway or LOB x 2 mins for functional carryover (Progressing) Start: 07/14/25 Expected End: 07/28/25 Mobility STG - Patient will ambulate >/= 50 ft with CGAx1 and LRAD (Progressing) Start: 07/14/25 Expected End: 07/28/25 Pt. will tolerate >/= 10 minutes of OOB mobility without seated rest break and VSS to demo improved activity tolerance/endurance. (Progressing) Start: 07/14/25 Expected End: 07/28/25 Patient will actively participate in ther-ex in order to improve strength and to assist with the completion of functional mobility tasks. (Progressing) Start: 07/14/25 Expected End: 07/28/25 PT Transfers STG - Patient will perform bed mobility IND (Progressing) Start: 07/14/25 Expected End: 07/28/25 STG - Patient will transfer sit to and from stand with CGAx1 and LRAD (Progressing) Start: 07/14/25 Expected End: 07/28/25 07/17/25 at 12:28 PM - Johanna Patel PT Occupational Therapy Occupational Therapy Treatment Name: Kitty Vergara "Alejandro" : 1940 Date: 07/17/25 Room: [address] [place] [address] Time Calculation Start Time: 935 Stop Time: 1003 Time Calculation (min): 27 min Assessment: OT Assessment: Pt presents s/p TAVR on 07/13 with later onset of garbled speech early AM of 07/14. Pt continues to demonstrate decreased independence in I/ADL tasks, functional mobility, and transfers 2/2 garbled speech, decreased word finding, 50-75% command following with repetition, decreased orientation, and decreased activity tolerance. Pt would continue to benefit from skilled OT services at high intensity to promote safety and return to PLOF. Prognosis: Good Barriers to Discharge Home: Physical needs, Cognition needs, Caregiver assistance Caregiver Assistance: Caregiver assistance needed per identified barriers - however, level of patient's required assistance exceeds assistance available at home Cognition Needs: 24hr supervision for safety awareness needed, Medication and/or medical management daily assist needed, Insight of patient limited regarding functional ability/needs, Cognition-related high falls risk Physical Needs: 24hr mobility assistance needed, 24hr ADL assistance needed, High falls risk due to function or environment Evaluation/Treatment Tolerance: Patient tolerated treatment well Medical Staff Made Aware: Yes End of Session Communication: Bedside nurse End of Session Patient Position: Bed, 3 rail up, Alarm on (soft restraints in place) Plan: Treatment Interventions: ADL retraining, Functional transfer training, Visual perceptual retraining, UE strengthening/ROM, Endurance training, Cognitive reorientation, Patient/family training, Equipment evaluation/education, Compensatory technique education OT Frequency for Current Admission: 4 times per week during this acute inpatient hospitalization OT Discharge Recommendations: High intensity level of continued care Equipment Recommended upon Discharge: Wheeled walker OT Recommended Transfer Status: Assist of 2 OT - OK to Discharge: Yes Subjective General: OT Last Visit OT Received On: 07/17/25 Reason for Referral: Pt admitted for elective TAVR on 07/13. Post op course c/b significant aphasia resulting in BAT. NIHSS 11. CTH: old L caudate hypodensity and ?R temporal hypodensity. CTA H/N with patent anterior and posterior circulations. OOW TNK. Not a candidate for EVT given no LVO. Suspect etiology of symptoms either recrudesce of old stroke vs new ischemic infarct 2/2 cardio embolic origin Past Medical History Relevant to Rehab: BPH, GERD, CKD stage 4, DMII hgAIc 6.6, CAD s/p LHC/RHC with PCI- 01/19/25, on Plavix and ASA 81mg, bardycardia, and severe non-rheumatic aortic stenosis. Co-Treatment: PT Co-Treatment Reason: To maximize pt safety. Pt agitated past few days with limited command following. Prior to Session Communication: Bedside nurse Patient Position Received: Bed, 3 rail up, Alarm off, not on at start of session Family/Caregiver Present: Yes Caregiver Feedback: Spouse (Adriel) present, supportive General Comment: Pt greeted in bed upon arrival, requesting to go home. Pt agreeable to therapy session with encouragment. Soft restraints in place at start of session Precautions: Hearing/Visual Limitations: +hearing aides Medical Precautions: Fall precautions, Cardiac precautions Precautions Comment: Visualized groin sites pre/post mobility - clean/dry/intact. BP goal: normotension Vitals: 07/17/25 0936 Vital Signs Vitals Session Pre OT Heart Rate 81 Heart Rate Source Monitor Resp 20 SpO2 98 % Vital Signs Comment Pt taking of NC throughout session, O2 remained >93%; Post OT: HR: 81, O2: 95, RR: 21 Lines/Tubes/Drains: Urethral Catheter (Active) Number of days: 0 Cognition: Overall Cognitive Status: Impaired Arousal/Alertness: Delayed responses to stimuli Orientation Level: Disoriented to place, Disoriented to time, Disoriented to situation Following Commands: (follows one step commands approx 50%-75% with increased time and repetition) Cognition Comments: Pt pleasant throughout, however, slightly agitated toward end of session d/t frustration. Requesting to go home. Pt with increased command following this session (50-75%) Insight: Severe Impulsive: Severely Pain Assessment: Pain Assessment Pain Assessment: 0-10 0-10 (Numeric) Pain Score: (pt reporting no pain, however, grimacing at times and stating "ouch"; unable to report location or number) Objective Activities of Daily Living: Pt denied participation in ADLs this session. Functional Standing Tolerance: Functional Mobility Functional Mobility Performed: Yes Functional Mobility 1 Surface 1: Level tile Device 1: No device Assistance 1: Arm in arm assistance, Minimum assistance (x2) Comments 1: min A x2 with hand held assist; x4 steps to R, x2 steps to left, x2 steps forward and back Bed Mobility/Transfers: Bed Mobility Bed Mobility: Yes Bed Mobility 1 Bed Mobility 1: Supine to sitting Level of Assistance 1: Minimum assistance, +2, Moderate verbal cues Bed Mobility Comments 1: HOB elevated, pt able to move BLE toward EOB, min A at trunk and BLEs Bed Mobility 2 Bed Mobility 2: Sitting to supine Level of Assistance 2: Maximum assistance, +2 Bed Mobility Comments 2: Max A x2 at trunk and BLE; pt resisting d/t wanting to leave Transfers Transfer: Yes Transfer 1 Transfer From 1: Bed to, Stand to Transfer to 1: Stand, Bed Technique 1: Sit to stand, Stand to sit Transfer Level of Assistance 1: Minimum assistance, Arm in arm assistance Trials/Comments 1: x2 to/from bed; pt impulsive with first stand Balance: Dynamic Sitting Balance Dynamic Sitting-Balance Support: Feet supported, No upper extremity supported Dynamic Sitting-Level of Assistance: Close supervision Static Sitting Balance Static Sitting-Balance Support: Feet supported, Bilateral upper extremity supported Static Sitting-Level of Assistance: Close supervision Static Standing Balance Static Standing-Balance Support: Bilateral upper extremity supported Static Standing-Level of Assistance: Minimum assistance Therapy/Activity: Therapeutic Activity Therapeutic Activity Performed: Yes Therapeutic Activity 1: Pt tolerated sitting EOB ~15 minutes with CGA to close supervision. Improved posture and sitting balance Therapeutic Activity 2: x2 sit<>stand trials, functional mobility, bed mobility Therapeutic Activity 3: increased time for cognitive re-orientation and command following Outcome Measures: [facility] Daily Activity Putting on and taking off regular lower body clothing: A lot Bathing (including washing, rinsing, drying): A lot Putting on and taking off regular upper body clothing: A little Toileting, which includes using toilet, bedpan or urinal: Total Taking care of personal grooming such as brushing teeth: A lot Eating Meals: A lot Daily Activity - Total Score: 12 OT Adult Other Outcome Measures 4AT: positive Education Documentation Body Mechanics, taught by Kelsey Biggs OT at 07/17/2025 11:45 AM. Learner: Family, Patient Readiness: Acceptance Method: Explanation Response: Needs Reinforcement Comment: OT POC, Role of OT, Functional transfers, bed mobility, cog re-orientation Precautions, taught by Kelsey Biggs OT at 07/17/2025 11:45 AM. Learner: Family, Patient Readiness: Acceptance Method: Explanation Response: Needs Reinforcement Comment: OT POC, Role of OT, Functional transfers, bed mobility, cog re-orientation ADL Training, taught by Kelsey Biggs OT at 07/17/2025 11:45 AM. Learner: Family, Patient Readiness: Acceptance Method: Explanation Response: Needs Reinforcement Comment: OT POC, Role of OT, Functional transfers, bed mobility, cog re-orientation Education Comments No comments found. Goals: Encounter Problems Encounter Problems (Active) ADLs Pt will don/doff all UB clothing with supervision and prn AE to promote independence in BADLs. (Progressing) Start: 10/21/25 Expected End: 07/28/25 Pt will don/doff all LB clothing with min A and prn AE to promote independence in BADLs. (Progressing) Start: 07/14/25 Expected End: 07/28/25 Pt will complete daily grooming tasks (e.g. brush teeth, wash face, shave, etc.) with supervision and min vcs to promote safety and independence in ADL tasks. (Progressing) Start: 07/14/25 Expected End: 07/28/25 Pt will complete toileting including clothing management and hygiene with min A and prn AE to promote independence with basic self care tasks. (Progressing) Start: 07/14/25 Expected End: 07/28/25 BALANCE Patient will maintain static standing balance during ADL task with stand by assist in order to demonstrate decreased risk of falling and improved postural control. (Progressing) Start: 07/14/25 Expected End: 07/28/25 COGNITION/SAFETY Patient will follow 75% of one step commands to allow improved ADL performance. (Progressing) Start: 07/14/25 Expected End: 07/28/25 Patient will demonstrated orientation x 4 with min verbal cues. (Progressing) Start: 07/14/25 Expected End: 07/28/25 ORIENTATION MOBILITY Patient will perform Functional mobility min Household distances/Community Distances with minimal assist and least restrictive device in order to improve safety and functional mobility. (Progressing) Start: 07/14/25 Expected End: 07/28/25 TRANSFERS Patient will perform bed mobility minimal assist level of assistance in order to improve safety and independence with mobility (Progressing) Start: 07/14/25 Expected End: 07/28/25 Patient will complete sit to stand transfer with minimal assist level of assistance and least restrictive device in order to improve safety and prepare for out of bed mobility. (Progressing) Start: 07/14/25 Expected End: 07/28/25 07/17/25 at 11:46 AM KELSEY BIGGS OT [phone] Kitty Stallworth" is a 85 y.o. male on day 4 of admission presenting with Nonrheumatic aortic (valve) stenosis. Subjective This morning at bedside, patient is asleep resting comfortably, placed in soft wrist restraints bilaterally. Opens eyes to touch, not speaking, not following simple commands. But alert and tracking appropriately. Overnight, the patient continued to be confused and impulsive per staff. Soft restraints placed. He received 2.5mg of Zyprexa (IM) for agitation, and had about 1.5 hours of uninterrupted sleep. Spouse remained at bedside overnight, explaining that Alejandro is not himself, combative overnight pushing nurses and trying to get out of bed, seemed confused. Objective Last Recorded Vitals Blood pressure (!) 144/99, pulse 87, temperature 36.4 C (97.5 F), temperature source Temporal, resp. rate 21, height 1.753 m (5' 9"), weight 109 kg (239 lb 3.2 oz), SpO2 98%. Oxygen Therapy Pulse Ox (24 hr min): 90 Medical Gas Therapy: Supplemental oxygen Medical Gas Delivery Method: Nasal cannula O2 Flow Rate (L/min): 2 L/min Sleep Log No Safety Checks orders active in given range Review of Systems Psychiatric ROS - Adult Anxiety: Negative Depression: negative Delirium: disorientation, sleep-wake abnormal, and waxing and waning Psychosis: negative Daphney: negative Safety Issues: none Physical Exam MENTAL STATUS EXAM General Appearance: Resting comfortably in bed, in soft restraints, in no acute distress, opens eyes to voice, verbal but unintelligible speech Attitude/Behavior: cooperative, appropriate eye contact Motor: antigravity in all extremities Speech: slow, soft, with mixed aphasia and dysarthric. Believe he is perseverating on I will Gait/Station: not assessed Mood: Unable to assess Affect: Flat Thought Process: unable to assess Thought Associations: unable to assess Thought Content: unable to assess Insight: lacks insight Judgment: lacks judgement Cognition: unable to follow simple commands Psychiatric Risk Assessment Violence Risk Assessment: none Acute Risk of Harm to Others is Considered: low Suicide Risk Assessment: none Protective Factors against Suicide: social support/connectedness Acute Risk of Harm to Self is Considered: moderate Relevant Results Scheduled medications Scheduled Medications[1] Continuous medications Continuous Medications[2] PRN medications PRN Medications[3] Results from last 72 hours Lab Units 07/16/25 0848 07/15/25 0634 SODIUM mmol/L 138 138 POTASSIUM mmol/L 3.8 3.8 BUN mg/dL 35* 37* CREATININE mg/dL 2.77* 2.68* CALCIUM mg/dL 9.1 9.1 MAGNESIUM mg/dL 2.17 2.11 Results from last 72 hours Lab Units 07/16/25 0848 07/15/25 0634 WBC AUTO x10*3/uL 9.6 10.1 HEMOGLOBIN g/dL 11.5* 11.1* HEMATOCRIT % 36.4* 35.9* PLATELETS AUTO x10*3/uL 163 147* Results from last 72 hours Lab Units 07/16/25 0848 07/15/25 0634 INR 1.1 1.2* Assessment & Plan Mixed level of activity delirium due to multiple etiologies, persistent Kitty Stallworth" is a 85 y.o. male with no past psychiatric history and a past medical history of HTN, HLD, DM2, CKD, Gout, OA, obesity admitted on 07/13/2025 for a scheduled TAVR procedure. 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 Psychiatry consulted on 07/15/25 for recommendations regarding management of intermittent agitation/delirium. Mr. Vergara is on day four of his hospital stay where on days 2 and 3 of stay, primary team is noticing a combination of hyperactivity, becoming agitated and attempting to climb out of bed, where he was unable to be redirected requiring PRN antipsychotics and benzodiazepines. He has received PRN olanzapine 5mg IM for agitation at 2000 on 07/14, required dose of Haldol 1g IM on 07/15/25 after arriving to floor at 1047, and given Diazepam 2mg IM at 2226 on 07/15/25. On bedside exam this morning, patient was lethargic, opens eyes to voice, appropriate eye contact and cooperative, but unable to follow simple commands, presenting with mixed aphasia in setting of recent infarcts. Was told he was trying to climb out of bed this morning, needing staff to redirect, and there is concern for further injury and inability for cooperation with services such as physical therapy which would promote discharge to acute rehab. This picture is concerning for a mixed delirium. We recommend initiating nightly 2.5mg PO olanzapine for further stabilization, as well as Olanzapine 2.5 BID PO/IM as needed for agitation if needed in addition to scheduled dose. Recommend discontinuing Valium as a PRN for agitation given that concomitant use with Olanzapine runs the risk of respiratory depression. Also discussed that he would be an appropriate transfer to the Med Psych Unit if beds are available and accepting team agrees. Psychiatry team will continue to follow and recommend medication adjustments as appropriate. Plan: ASSESSMENT AND PLAN Kitty Stallworth" is a 85 y.o. male with no past psychiatric history and a past medical history of HTN, HLD, DM2, CKD, Gout, OA, obesity admitted on 07/13/2025 for a scheduled TAVR procedure. 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 Psychiatry consulted on 07/15/25 for recommendations regarding management of intermittent agitation/delirium. Mr. Vergara was agitated overnight despite receiving scheduled PO 2.5mg Zyprexa on 07/16. He received Zyprexa 2.5mg IM PRN overnight at 0127 07/17. His presentation appears to be a combination of hyperactivity, becoming agitated and attempting to climb out of bed, where he was unable to be redirected requiring PRN antipsychotics and benzodiazepines and hypoactivity with periods of increased lethargy. On bedside exam this morning, patient was lethargic, opens eyes to voice, appropriate eye contact and cooperative, but unable to follow simple commands, no speech production. With continued agitation (pushing nursing staff, trying to climb out of bed overnight, now in soft wrist restraints) there is concern for self injury and inability for cooperation with services such as physical therapy which would promote discharge to acute rehab. This picture is concerning for a mixed delirium. We recommend continuing nightly 2.5mg PO olanzapine for further stabilization, as well as continuing Olanzapine 2.5 BID PO/IM as needed for agitation if needed. Due to continued agitation, recommend transfer to the Med Psych Unit, for patient safety and delirium improvement. Psychiatry team will continue to follow and recommend medication adjustments as appropriate. IMPRESSION #Mixed delirium RECOMMENDATIONS Safety: - Patient DOES NOT currently meet criteria for inpatient psychiatric admission. - Patient lacks the capacity to leave AMA at this time and thus cannot leave AMA. Call CODE CEDRIC if patient attempts to leave AMA. - To evaluate decision-making capacity, recommend use of the Capacity Evaluation Tool. Search "[facility] Capacity Evaluation" under SmartText - Defer to primary team decision for 1:1 sitter. - As with all hospitalized patients, would recommend delirium precautions, as below. Instructions for transfer to MPU: Patient is appropriate for the Med-Psych Unit and can be transferred for co-management with the primary team Please note that the patient or surrogate decision maker should approve transfer (unless pt is awaiting inpatient psychiatric admission, i.e. SI/HI/florid psychosis) Current medical or surgical team remains primary Place STAT transfer order to [address] / U and alert current unit to arrange transport Medications: -CONTINUE Olanzapine 2.5mg PO at bedtime scheduled -CONTINUE Olanzapine 2.5 PO/IM BID as needed for agitation -Delirium precautions as stated below. Work-up: - EKG (07/14): QTc of 474ms Ancillary Services: - Please order spiritual care consult, roman catholic DELIRIUM GUIDELINES Non-Pharmacologic: - Assess visual and hearing impairments and provide aids and communication boards. - Assess immobility and advocate for early evaluation and intervention by physical therapy, out of bed when medically indicated, and expeditious removal of tethers. - Promote physiologic sleep and maintenance of sleep/wake cycle by ensuring blinds are open during the day, maintaining dark/quiet room at night with minimal interruptions, and minimizing daytime naps. - Minimize room and staff changes. - Engage the patient in cognitively stimulating activities and provide frequent reorientation. - Minimize use of restraints to situations where necessary to keep patient and staff safe and to prevent from removing lines, tubes, medical devices, dressings, etc. Pharmacologic: - Minimize use of deliriogenic medications such as benzodiazepines, anticholinergic medications, and opiates (while ensuring adequate treatment of pain). - Assess and treat disruption in bowel and bladder function. - Assess and treat abnormalities in nutrition and hydration status. - Discussed recommendations with primary team. - Psychiatry will continue to follow. Thank you for allowing us to participate in the care of this patient. Please page [phone] with any questions or concerns. Patient seen and staffed with Dr. Eddy, who agrees with above plan. Kayla Mary MD Neurology PGY4 Psychiatry Team Fellow ATTESTATION: Patient seen and examined on 07/17 for staffing. On assessment patient is calm resting in bed. Eyes open to verbal and tactile stimuli but mute speech. Does not follow commands consistently. Spoke with at bedside who is distressed due to patient's change in mentation. Reports he is constantly repeating "why can't we go home". Provided empathy, validation, and education on delirium. Remains agreeable to MPU for co management of agitation to faciliate removal of restraints and sitter. Agree with above recommendations. Patient seen and discussed with Dr. Eddy, who agrees with above plan which I have reviewed/edited. Liban Paulino MD [1] amLODIPine, 2.5 mg, oral, Daily aspirin, 81 mg, oral, Daily bumetanide, 0.5 mg, oral, Daily clopidogrel, 75 mg, oral, Daily docusate sodium, 100 mg, oral, BID ezetimibe, 10 mg, oral, Daily gabapentin, 300 mg, oral, BID heparin (porcine), 5,000 Units, subcutaneous, q8h insulin glargine, 10 Units, subcutaneous, Nightly insulin lispro, 0-10 Units, subcutaneous, TID AC OLANZapine, 2.5 mg, oral, Nightly pantoprazole, 40 mg, oral, Daily before breakfast Or pantoprazole, 40 mg, intravenous, Daily before breakfast perflutren lipid microspheres, 0.5-10 mL of dilution, intravenous, Once in imaging [2] [3] PRN medications: acetaminophen OR acetaminophen OR acetaminophen, benzocaine-menthol, dextrose, dextrose, glucagon, glucagon, lidocaine-epinephrine, melatonin, OLANZapine, ondansetron OR ondansetron, oxygen, phenoL, prochlorperazine OR prochlorperazine OR prochlorperazine, traMADol Cosigned by Jude Eddy MD at 07/19/2025 9:04 PM EDT Associated attestation - Jude Eddy MD - 07/19/2025 9:04 PM EDT I saw and evaluated the patient. I personally obtained the davis and critical portions of the history and physical exam or was physically present for davis and critical portions performed by the resident/fellow. I reviewed the resident/fellow's documentation and discussed the patient with the resident/fellow. I agree with the resident/fellow's medical decision making as documented in the note. Images from the original note were not included. [facility]VI Attending Shared Visit Note This is a shared visit. Please see Advanced Practice Provider's encounter note for additional details. Briefly, 85M from [place], [place] with severe s/p TAVR 07/13 complicated by nola-procedural embolic strokes He has a history of HTN, HLD, DM2, CKD4, CAD s/p PCI 01/19/25, severe , gout, OA, obesity, BPH. Admitted 07/13/25 for TAVR. Develop aphasia evening 07/13 post-procedure; BAT called. CT/CTA 07/14 without LVO or ICH. MRI brain showed acute to subacute embolic infarcts L>M hemispheres and left cerebellum consistent with nola-procedural cardioembolism. Has acute agitation (possibly related to urinary retention. Exam: sleeping comfortably. De Oliveira in place. Multiple bruises. Not oriented. # Ischemic stroke post-TAVR, embolic pattern MRI 07/14 # Agitation delirium: safety monitoring, psych recs appreciated. PT/OT/PM&R. MPU transfer # Dysphagia risk. # s/p TAVR Evolut FX+34 mm 07/13/25 with transient conduction changes now LBBB 1deg AVB # CAD s/p PCI 01/19/25 LAD WILLIE x2: DAPT # CKD4 baseline Cr ~2: CTM # Urinary retention: de oliveira in place # Dispo: Not medically ready. Barriers include neuro recovery/agitation. Kapil Garsia MD Assessment & Plan Nonrheumatic aortic (valve) stenosis Objective Admit Date: 07/13/2025 Hospital Length of Stay: 4 Home: [facility] [id number] MEDICATIONS Infusions: Scheduled: amLODIPine, 2.5 mg, Daily aspirin, 81 mg, Daily bumetanide, 0.5 mg, Daily clopidogrel, 75 mg, Daily docusate sodium, 100 mg, BID ezetimibe, 10 mg, Daily gabapentin, 300 mg, BID heparin (porcine), 5,000 Units, q8h insulin glargine, 10 Units, Nightly insulin lispro, 0-10 Units, TID AC OLANZapine, 2.5 mg, Nightly pantoprazole, 40 mg, Daily before breakfast Or pantoprazole, 40 mg, Daily before breakfast perflutren lipid microspheres, 0.5-10 mL of dilution, Once in imaging PRN: acetaminophen, 650 mg, q6h PRN Or acetaminophen, 650 mg, q6h PRN Or acetaminophen, 650 mg, q6h PRN benzocaine-menthol, 1 lozenge, q2h PRN dextrose, 12.5 g, q15 min PRN dextrose, 25 g, q15 min PRN glucagon, 1 mg, q15 min PRN glucagon, 1 mg, q15 min PRN lidocaine-epinephrine, 5 mL, Once PRN melatonin, 6 mg, Nightly PRN OLANZapine, 2.5 mg, Daily PRN ondansetron, 4 mg, q8h PRN Or ondansetron, 4 mg, q8h PRN oxygen, , Continuous - O2/gases phenoL, 1 spray, q2 min PRN prochlorperazine, 10 mg, q6h PRN Or prochlorperazine, 10 mg, q6h PRN Or prochlorperazine, 25 mg, q12h PRN traMADol, 50 mg, q6h PRN Prior to Admission Meds: Prescriptions Prior to Admission[1] Vitals: 07/17/2025 8:00 AM 07/17/2025 4:00 AM 07/17/2025 12:00 AM 07/16/2025 8:28 PM 07/16/2025 8:00 PM 07/16/2025 5:00 PM 07/16/2025 4:00 PM Vitals Systolic 144 146 Diastolic 99 75 BP Location Right arm Heart Rate 87 83 76 77 80 70 71 Temp -- 36.4 C (97.5 F) 36.7 C (98.1 F) Resp 21 21 18 25 17 20 19 Wt Readings from Last 5 Encounters: 07/15/25 109 kg (239 lb 3.2 oz) 07/01/25 105 kg (232 lb) 04/21/25 104 kg (229 lb) 04/04/25 (P) 105 kg (232 lb) 03/26/25 107 kg (235 lb 14.3 oz) Intake/Output Summary (Last 24 hours) at 07/17/2025 0812 Last data filed at 07/17/2025 0700 Gross per 24 hour Intake 120 ml Output 2100 ml Net -1980 ml CHEST: Unlabored, Clear, Diminished CV: Heart block NEURO: RASS: Alert and calm CAM: LOC: Alert Cognition: Impulsive, Poor safety awareness, Poor judgement GCS: 12 DATA: CMP: Recent Labs 07/16/25 0848 07/15/25 0634 07/14/25 0518 07/13/25 2009 07/09/25 0925 03/09/25 0832 03/05/25 0420 03/04/25 1310 01/12/25 0752 10/20/24 0509 10/18/24 1557 09/26/24 0754 NA 138 138 138 139 140 139 139 137 < > 135* < > 139 K 3.8 3.8 3.9 3.4* 4.1 4.4 3.9 4.5 < > 4.9 < > 3.9 CL 103 102 103 104 103 105 107 106 < > 107 < > 101 CO2 24 23 24 23 24 24 23 25 < > 21 < > 29 ANIONGAP 15 17 15 15 13 10 13 11 < > 12 < > 13 BUN 35* 37* 33* 35* 32* 42* 38* 41* < > 35* < > 37* CREATININE 2.77* 2.68* 2.01* 2.27* 2.47* 2.25* 2.26* 2.31* < > 2.29* < > 2.63* EGFR 22* 23* 32* 28* 25* 28* 28* 27* < > 27* < > 23* MG 2.17 2.11 2.12 2.14 -- 2.4 -- 2.00 -- 1.45* -- 1.70 < > = values in this interval not displayed. Recent Labs 03/09/25 0832 03/04/25 1310 10/20/24 0509 10/18/24 1557 09/26/24 0754 09/05/24 0738 05/29/24 1231 05/08/24 0733 02/04/24 0816 ALBUMIN 3.8 3.9 3.2* 3.4 4.1 3.8 4.0 4.1 3.8 ALT 12 12 -- 7* 7* 9* 9* 7* 9* AST 18 18 -- 12 11 12 12 10 11 BILITOT 0.7 0.7 -- 0.5 0.7 0.8 0.7 0.9 0.6 LIPASE -- -- -- 23 -- -- -- -- -- CBC: Recent Labs 07/16/25 0848 07/15/25 0634 07/14/25 0518 07/13/25200807/09/25 0925 03/09/25 0832 03/05/25 0420 03/04/25 1310 WBC 9.6 10.1 9.5 10.9 8.9 9.6 7.9 9.8 HGB 11.5* 11.1* 11.1* 11.3* 12.7* 11.7* 11.0* 11.3* HCT 36.4* 35.9* 35.3* 35.4* 39.2 36.7* 34.1* 35.1* PLT 163 147* 146* 142* 167 184 160 175 MCV 95 96 95 94 93.3 94.3 92 92 COAG: Recent Labs 07/16/25 0848 07/15/25 0634 07/14/25 0518 07/13/25200807/09/25 0925 INR 1.1 1.2* 1.1 1.2* 1.1 ABO: Recent Labs 07/13/25 1451 ABO A HEME/ENDO: Recent Labs 07/15/25 0634 03/09/25 0832 03/04/25 1412 10/19/24 0437 09/26/24 0754 09/05/24 0738 05/08/24 0733 FERRITIN -- -- -- 440* -- -- -- IRONSAT -- -- -- 11* -- -- -- TSH -- 3.59 2.51 2.35 5.03* -- -- HGBA1C 7.0* 6.6* -- -- -- 7.2* 7.3* CARDIAC: Recent Labs 03/04/25 1412 03/04/25 1310 10/18/24 1557 05/29/24 1231 03/28/23 1150 03/28/23 1022 TROPHS 11 13 11 10 12 14 BNP -- -- 321* -- -- -- Recent Labs 07/15/25 0634 09/26/24 0754 03/29/22 0754 03/29/20 0837 CHOL 142 139 172 185 LDLF -- -- - - LDLCALC 76 42 -- -- HDL 35.4 37.0 36.0* 32.0* TRIG 154* 299* 529* 607* TOX:No results for input(s): "AMPHETAMINE", "BENZO", "CANNABINOID", "COCAI", "FENTANYL", "OPIATE", "OXYCODONE", "PCP" in the last 89647 hours. No lab exists for component: BARBSCRUR MICRO: Recent Labs 05/23/22 1019 CRP 0.43 No results found for the last 90 days. EKG: Recent Labs 07/15/25204907/14/25 0530 07/13/25 1950 ATRRATE 79 70 70 VENTRATE 87 70 70 PRINT 296 208 296 QRSDUR 136 148 158 QTCFRED 477 499 528 QTCCALCB 507 511 542 Encounter Date: 07/13/25 ECG 12 lead daily Result Value Ventricular Rate 87 Atrial Rate 79 TX Interval 296 QRS Duration 136 QT Interval 422 QTC Calculation(Bazett) 507 P Goltry 97 R Goltry 11 T Goltry 178 QRS Count 14 Q Onset 209 P Onset 61 P Offset 120 T Offset 420 QTC Fredericia 477 Narrative Sinus rhythm with 1st degree AV block with occasional Premature ventricular complexes and Premature atrial complexes Left bundle branch block Abnormal ECG When compared with ECG of 14-JUL-2025 05:26, Sinus rhythm has replaced Ectopic atrial rhythm Echocardiogram: Recent Labs 07/14/25 1518 10/20/24 0719 EF 62 67 LVIDD -- 4.65 RV -- 45.5 TAPSE -- 2.1 Transthoracic Echo (TTE) Complete With Contrast 10/20/2024 [place] [address] [phone], TRANSTHORACIC ECHOCARDIOGRAM REPORT Patient Name: KITTY VERGARA Reading Physician: [id number] Santiago Marquez MD Study Date: 10/20/2024 Ordering Provider: [id number] ZANA MATHEWS MRN/PID: [id number] Fellow: Nurse: Ayaka Hernandez RN Date of /Age: 1007/06/1940 Manager Garden: Mary TOROT, NELLY Gender Assigned at M Additional Staff: : Height: 177.80 cm Admit Date: 10/18/2024 Weight: 104.33 kg Admission Status: Inpatient - Routine BSA / BMI: 2.22 m2 / 33.00 Department Location: [address] kg/m2 Blood Pressure: 160 /86 mmHg Study Type: TRANSTHORACIC ECHO (TTE) COMPLETE Diagnosis/ICD: Bradycardia, unspecified-R00.1; Unspecified atrial fibrillation-I48.91 Indication: Francisco,AFib CPT Codes: Echo Complete w Full Doppler-[id number] Patient History: Pertinent History: Previous echo 03-28-23. Study Detail: The following Echo studies were performed: 2D, M-Mode, Doppler and color flow. Definity used as a contrast agent for endocardial border definition. A bubble study was not performed. The patient was awake. PHYSICIAN INTERPRETATION: Left Ventricle: Left ventricular ejection fraction is normal, calculated by Villalobos's biplane at 67%. The patient is in atrial fibrillation which may influence the estimate of left ventricular function and transvalvular flows. There are no regional wall motion abnormalities. The left ventricular cavity size is normal. There is mild increased septal and mildly increased posterior left ventricular wall thickness. There is left ventricular concentric remodeling. Spectral Doppler shows a Grade II (pseudonormal pattern) of left ventricular diastolic filling with an elevated left atrial pressure. Left Atrium: The left atrium is normal in size. A bubble study using agitated saline was not performed. Right Ventricle: The right ventricle is normal in size. There is normal right ventricular global systolic function. Right Atrium: The right atrium is normal in size. Aortic Valve: The aortic valve is trileaflet. There is evidence of moderate to severe aortic valve stenosis. The aortic valve dimensionless index is 0.23. There is no evidence of aortic valve regurgitation. The peak instantaneous gradient of the aortic valve is 73 mmHg. The mean gradient of the aortic valve is 44 mmHg. Mitral Valve: The mitral valve is normal in structure. There is mild mitral valve regurgitation. Tricuspid Valve: The tricuspid valve is structurally normal. There is trace tricuspid regurgitation. Pulmonic Valve: The pulmonic valve is not well visualized. There is no indication of pulmonic valve regurgitation. Pericardium: No pericardial effusion noted. Aorta: The aortic root is normal. CONCLUSIONS: 1. Poorly visualized anatomical structures due to suboptimal image quality. 2. Left ventricular ejection fraction is normal, calculated by Villalobos's biplane at 67%. 3. Spectral Doppler shows a Grade II (pseudonormal pattern) of left ventricular diastolic filling with an elevated left atrial pressure. 4. There is normal right ventricular global systolic function. 5. Moderate to severe aortic valve stenosis. 6. Compared to prior TTE dated 03/28/2023 - aortic stenosis has progressed and now appears to be moderate-severe. 7. The patient is in atrial fibrillation which may influence the estimate of left ventricular function and transvalvular flows. QUANTITATIVE DATA SUMMARY: 2D MEASUREMENTS: Normal Ranges: Ao Root d: 3.10 cm (2.0-3.7cm) LAs: 3.70 cm (2.7-4.0cm) IVSd: 1.35 cm (0.6-1.1cm) LVPWd: 1.38 cm (0.6-1.1cm) LVIDd: 4.65 cm (3.9-5.9cm) LVIDs: 3.06 cm LV Mass Index: 113.5 g/m2 LV % FS 34.2 % LA VOLUME: Normal Ranges: LA Vol A4C: 31.2 ml (22+/-6mL/m2) LA Vol A2C: 54.6 ml LA Vol BP: 43.6 ml LA Vol Index A4C: 14.1ml/m2 LA Vol Index A2C: 24.7 ml/m2 LA Vol Index BP: 19.7 ml/m2 LA Area A4C: 14.7 cm2 LA Area A2C: 18.4 cm2 LA Major Goltry A4C: 5.9 cm LA Major Goltry A2C: 5.3 cm LA Volume Index: 24.0 ml/m2 LA Vol A4C: 31.4 ml LA Vol A2C: 53.3 ml LA Vol Index BSA: 19.1 ml/m2 M-MODE MEASUREMENTS: Normal Ranges: AoV Exc: 0.90 cm (1.5-2.5cm) AORTA MEASUREMENTS: Normal Ranges: AoV Exc: 0.90 cm (1.5-2.5cm) LV SYSTOLIC FUNCTION BY 2D PLANIMETRY (MOD): Normal Ranges: EF-A4C View: 63 % (>=55%) EF-A2C View: 71 % EF-Biplane: 67 % LV EF Reported: 67 % LV DIASTOLIC FUNCTION: Normal Ranges: MV Peak E: 1.26 m/s (0.7-1.2 m/s) MV Peak A: 1.18 m/s (0.42-0.7 m/s) E/A Ratio: 1.07 (1.0-2.2) MV e' 0.089 m/s (>8.0) MV lateral e' 0.07 m/s MV medial e' 0.11 m/s E/e' Ratio: 14.21 (<8.0) MITRAL VALVE: Normal Ranges: MV DT: 289 msec (150-240msec) MITRAL INSUFFICIENCY: Normal Ranges: MR Vmax: 351.00 cm/s AORTIC VALVE: Normal Ranges: AoV Vmax: 4.26 m/s (<=1.7m/s) AoV Peak P.6 mmHg (<20mmHg) AoV Mean P.0 mmHg (1.7-11.5mmHg) LVOT Max Clyde: 1.10 m/s (<=1.1m/s) AoV VTI: 104.00 cm (18-25cm) LVOT VTI: 23.70 cm LVOT Diameter: 2.20 cm (1.8-2.4cm) AoV Area, VTI: 0.87 cm2 (2.5-5.5cm2) AoV Area,Vmax: 0.98 cm2 (2.5-4.5cm2) AoV Dimensionless Index: 0.23 RIGHT VENTRICLE: RV Basal 3.65 cm RV Mid 2.11 cm RV Major 6.9 cm TAPSE: 20.9 mm TRICUSPID VALVE/RVSP: Normal Ranges: Peak TR Velocity: 3.26 m/s RV Syst Pressure: 46 mmHg (< 30mmHg) PULMONIC VALVE: Normal Ranges: PV Accel Time: 106 msec (>120ms) PV Max Clyde: 2.3 m/s (0.6-0.9m/s) PV Max P.3 mmHg [id number] Santiago Marquez MD Electronically signed on 10/20/2024 at 9:11:55 AM Final Coronary Angiography: TAVR (Transcatheter AV Replacement), TAVR (Transcatheter AV Replacement) 07/13/2025 [facility], Yield Improvement Engineer, [address] [place] [address] Cardiovascular Catheterization Report Patient Name: KITTY VERGARA Performing Physician: [id number] Barbosa MD Study Date: 07/13/2025 Verifying Physician: Atrem Barbosa MD MRN/PID: [id number] Qa Specialist/Co-Scrub: Ordering Provider: [id number] BARBOSA Date of 1940 Qa Specialist: /Age: years Gender: M Fellow: [id number] Camila Salinas MD Surgeon: Omar Howell MD Study: GURJIT - Transcatheter Aortic Valve Implantation Indications: Severe aortic stenosis. Informed Consent: Benefits, risks, and alternatives discussed with patient or authorized national sales representative and consent was obtained. Transcatheter Aortic Valve Replacement (TAVR): The right femoral artery was accessed using the transfemoral method. A 6 Fr sheath was inserted followed by the deployment of 2 Proglides. 18 F Sentrant. The left femoral artery was accessed percutaneously and a 6 Gabonese contralateral sheath was placed. A 6 Gabonese temporary pacemaker was inserted through the right jugular vein and advanced to the right ventricular apex. Adequate pacing thresholds were obtained. After crossing the stenotic aortic valve, balloon aortic valvuloplasty was performed with True Dilation 23. Evolut FX+ 34 valve was successfully deployed under rapid ventricular pacing at 160 BPM. Transthoracic echo performed post valve deployment revealed no mitral insufficiency and no central aortic insufficiency and trace/trivial paravalvular aortic insufficiency. No device related events. No bleeding events occurred during the procedure. No vascular access complications were revealed. Access site was closed using 2 ProGlide devices. Hemostasis was achieved in the left femoral artery using a ProGlide device. Temporary pacing wire was sutured in place. Hemo Personnel: + +---------+ Name Duty + +---------+ Dorothy Barbosa MD, MD 1 + +---------+ Fluoroscopy Time: + +- ------+ Bedside Procedure Fluoro Dose: n/a mGy + +- ------+ Hemodynamic Pressures: +----+ + + + +---- ---+---------+ Site Date Time Phase Name Systolic mmHg Diastolic mmHg ED mmHg Mean mmHg +----+ + + + +---- ---+---------+ AO 07/13/2025 Rest 198 75 125 6:13:05 PM +----+ + + + +---- ---+---------+ AO 07/13/2025 Rest 184 84 116 6:28:09 PM +----+ + + + +---- ---+---------+ LV 07/13/2025 Rest 227 1 20 6:28:09 PM +----+ + + + +---- ---+---------+ AO 07/13/2025 Rest 191 72 112 6:28:17 PM +----+ + + + +---- ---+---------+ LV 07/13/2025 Rest 225 1 26 6:28:17 PM +----+ + + + +---- ---+---------+ Complications: No vascular access complications were revealed. No bleeding events occurred during the procedure. No device related events. Cardiac Cath Post Procedure Notes: Post Procedure Diagnosis: Successful GURJIT. Blood Loss: Estimated blood loss during the procedure was 10 mls. Specimens Removed: Number of specimen(s) removed: none. CONCLUSIONS: 1. Successful GURJIT using a Evolut FX+ 34. 2. ASA indefinately. 3. Patient was enrolled in a research study and data was included in the TVT Registry. ICD 10 Codes: Nonrheumatic aortic (valve) stenosis-I35.0 CPT Codes: GURJIT Perc,femoral-50901.62 [id number] Dorothy Barbosa MD Performing Physician Final Impression CONCLUSIONS: 1. Successful GURJIT using a Evolut FX+ 34. 2. ASA indefinately. 3. Patient was enrolled in a research study and data was included in the TVT Registry. Right Heart Cath: No results found for this or any previous visit from the past 1800 days. Cardiac Scoring: No results found for this or any previous visit from the past 1800 days. Cardiac MRI: No results found for this or any previous visit from the past 1800 days. Nuclear:No results found for this or any previous visit from the past 1800 days. Metabolic Stress: No results found for this or any previous visit from the past 1800 days. Imaging Cardiac Catheterization Procedure Result Date: 07/15/2025 CONCLUSIONS: 1. Successful GURJIT using a Evolut FX+ 34. 2. ASA indefinately. 3. Patient was enrolled in a research study and data was included in the TVT Registry. XR chest 1 view Result Date: 07/15/2025 1. Mild pulmonary vascular congestion compared to the previous study. Signed by: Darinel Zee 07/15/2025 8:41 AM Dictation workstation: [id number] MR brain wo IV contrast Result Date: 07/15/2025 There are MRI findings compatible with scattered areas of acute to early subacute infarction within the cerebral hemispheres bilaterally left greater than right as well as within the left cerebellar hemisphere as described above. The dominant area of acute to early subacute infarction is identified within the left temporoparietal region. The above findings are superimposed upon moderate brain parenchymal volume loss. There are scattered as well as more patchy and confluent nonspecific white matter changes again noted within cerebral hemispheres bilaterally as well as ill-defined increased signal on the FLAIR and T2 images overlying the brainstem which while nonspecific, given the patient's age, likely represent sequelae of more remote small-vessel ischemic change. Additional small foci of bright signal on the T2 images are identified within the subinsular regions, basal ganglia, and thalami bilaterally suggesting incidental mildly prominent perivascular spaces and/or scattered more remote lacunar infarctions. Scattered areas of encephalomalacia are identified within the cerebellum as well as along the posterior right occipital lobe. MACRO: Critical Finding: See findings. Notification was initiated on 07/15/2025 at 6:48 am by Matilde Melvin. (-OCF-) Instructions: See Findings. Signed by: Matilde Melvin 07/15/2025 6:48 AM Dictation workstation: [id number] Transthoracic Echo (TTE) Limited Result Date: 07/14/2025 CONCLUSIONS: 1. Poorly visualized anatomical structures due to suboptimal image quality. 2. Left ventricular ejection fraction is normal calculated by Villalobos's biplane at 62%. 3. Echo findings are consistent with normal aortic valve prosthesis structure and function. 4. Unable to determine right ventricular systolic function. 5. No regional left ventricular wall motion abnormalities. 6. Compared with study dated 07/13/2025, the patient is now s/p 34 mm Evolut Fx+ TAVR with reduction in aortic gradients. Transthoracic Echo (TTE) Limited Result Date: 07/14/2025 CONCLUSIONS: 1. Poorly visualized anatomical structures due to suboptimal image quality. 2. The left ventricle was not well visualized. The left ventricular ejection fraction could not be measured. 3. LV appear to have grossly normal systolic function without obvious regional wall motion abnormalities though not well seen. Unable to estimate LVEF. 4. Unable to determine right ventricular systolic function. 5. There is moderate mitral annular calcification. 6. Baseline- AV not well seen though appears to be moderate to severely calcified/thickened with gradients of 41/22mmHg and DI of 0.33 with no AI. The DI is consistent with moderate though gradients are lower than expected for that degree of . Proceeded to TAVR. 7. S/p 34mm Medtronic Evolut TAVR with gradients of 6.9/4mmHg and no obvious AI. 8. Compared with study dated 10/20/2024, [facility], the prior AV gradients were 73/44mmHg with DI of 0.23 which is consistent with severe and there was no AI at that time. Today's gradients are lower than on prior exam likely due to technically difficult images with limited interrogation in that the LV systolic function appears to be preserved today. Prior LVEF was 67%. CT brain attack head wo IV contrast Result Date: 07/14/2025 1. No proximal large branch vessel cutoff on CTA of the head. 2. Atherosclerotic changes most significantly involving the common carotid arteries, left greater than right with stenosis of the distal left common carotid artery measuring up to approximately 60-65% relative to the caliber of the vessel more proximally. There is also luminal irregularity at least mild narrowing of the distal V2/V3 segment of the left vertebral artery. 3. Nonspecific white matter changes most likely represent small-vessel ischemic disease in a patient of this age. No definitive evidence of acute cortical infarct, mass effect, or acute intracranial hemorrhage. There are areas of encephalomalacia in the cerebellum which could reflect remote infarcts. MRI with diffusion-weighted imaging would be a more sensitive means of assessing for acute ischemic injury. 4. Diffuse parenchymal volume loss. 5. Enlarged and heterogenous appearance of the right thyroid lobe with a focal lesion measuring up to 3.5 cm. Recommend correlation with non-emergent thyroid ultrasound. 6. Additional findings as above. I personally reviewed the images/study and I agree with the findings as stated by Jeff Butler DO PGY-3. MACRO: Jeff Butler discussed the significance and urgency of this critical finding in person with neurology on 07/14/2025 at 2:30 a.m.. (-RCF-) Findings: See findings. Incidental Finding: There are few small hypoattenuating nodules measuring equal to or greater than 1.5 cm in the thyroid gland. (-YCF-) Instructions: Further evaluation with nonemergent thyroid ultrasound. (Managing Incidental Thyroid Nodules Detected on Imaging: White Paper of the ACR Incidental Thyroid Findings Committee. Mariela Sutton et al. Journal of the [place] [employer],Volume 12, Issue 2, 143 - 150.) [email or web address] Signed by: Angela Doyle 07/14/2025 6:06 AM Dictation workstation: [id number] CT brain attack angio head and neck W and WO IV contrast Result Date: 07/14/2025 1. No proximal large branch vessel cutoff on CTA of the head. 2. Atherosclerotic changes most significantly involving the common carotid arteries, left greater than right with stenosis of the distal left common carotid artery measuring up to approximately 60-65% relative to the caliber of the vessel more proximally. There is also luminal irregularity at least mild narrowing of the distal V2/V3 segment of the left vertebral artery. 3. Nonspecific white matter changes most likely represent small-vessel ischemic disease in a patient of this age. No definitive evidence of acute cortical infarct, mass effect, or acute intracranial hemorrhage. There are areas of encephalomalacia in the cerebellum which could reflect remote infarcts. MRI with diffusion-weighted imaging would be a more sensitive means of assessing for acute ischemic injury. 4. Diffuse parenchymal volume loss. 5. Enlarged and heterogenous appearance of the right thyroid lobe with a focal lesion measuring up to 3.5 cm. Recommend correlation with non-emergent thyroid ultrasound. 6. Additional findings as above. I personally reviewed the images/study and I agree with the findings as stated by Jeff Butler, PGY-3. MACRO: Jeff Butler discussed the significance and urgency of this critical finding in person with neurology on 07/14/2025 at 2:30 a.m.. (-RCF-) Findings: See findings. Incidental Finding: There are few small hypoattenuating nodules measuring equal to or greater than 1.5 cm in the thyroid gland. (-YCF-) Instructions: Further evaluation with nonemergent thyroid ultrasound. (Managing Incidental Thyroid Nodules Detected on Imaging: White Paper of the ACR Incidental Thyroid Findings Committee. Mariela Sutton et al. Journal of the [place] [employer],Volume 12, Issue 2, 143 - 150.) [email or web address] Signed by: Angela Doyle 07/14/2025 6:06 AM Dictation workstation: [id number] Cardiology, Vascular, and Other Imaging ECG 12 lead daily Result Date: 07/16/2025 Sinus rhythm with 1st degree AV block with occasional Premature ventricular complexes and Premature atrial complexes Left bundle branch block Abnormal ECG When compared with ECG of 14-JUL-2025 05:26, Sinus rhythm has replaced Ectopic atrial rhythm Cardiac Catheterization Procedure Result Date: 07/15/2025 [facility], Yield Improvement Engineer, [address] [place] [address] Cardiovascular Catheterization Report Patient Name: KITTY VERGARA Performing Physician: [id number] Barbosa MD Study Date: 07/13/2025 Verifying Physician: Artem Barbosa MD MRN/PID: [id number] Qa Specialist/Co-Scrub: Ordering Provider: [id number] BARBOSA Date of 1940 Qa Specialist: /Age: years Gender: M Fellow: [id number] Camila Salinas MD Surgeon: Omar Howell MD Study: GURJIT - Transcatheter Aortic Valve Implantation Indications: Severe aortic stenosis. Informed Consent: Benefits, risks, and alternatives discussed with patient or authorized national sales representative and consent was obtained. Transcatheter Aortic Valve Replacement (TAVR): The right femoral artery was accessed using the transfemoral method. A 6 Fr sheath was inserted followed by the deployment of 2 Proglides. 18 F Sentrant. The left femoral artery was accessed percutaneously and a 6 Gabonese contralateral sheath was placed. A 6 Gabonese temporary pacemaker was inserted through the right jugular vein and advanced to the right ventricular apex. Adequate pacing thresholds were obtained. After crossing the stenotic aortic valve, balloon aortic valvuloplasty was performed with True Dilation 23. Evolut FX+ 34 valve was successfully deployed under rapid ventricular pacing at 160 BPM. Transthoracic echo performed post valve deployment revealed no mitral insufficiency and no central aortic insufficiency and trace/trivial paravalvular aortic insufficiency. No device related events. No bleeding events occurred during the procedure. No vascular access complications were revealed. Access site was closed using 2 ProGlide devices. Hemostasis was achieved in the left femoral artery using a ProGlide device. Temporary pacing wire was sutured in place. Hemo Personnel: + +---------+ Name Duty + +---------+ Dorothy Barbosa MD, MD 1 + +---------+ Fluoroscopy Time: + +- ------+ Bedside Procedure Fluoro Dose: n/a mGy + +- ------+ Hemodynamic Pressures: +----+ + + + +---- ---+---------+ Site Date Time Phase Name Systolic mmHg Diastolic mmHg ED mmHg Mean mmHg +----+ + + + +---- ---+---------+ AO 07/13/2025 Rest 198 75 125 6:13:05 PM +----+ + + + +---- ---+---------+ AO 07/13/2025 Rest 184 84 116 6:28:09 PM +----+ + + + +---- ---+---------+ LV 07/13/2025 Rest 227 1 20 6:28:09 PM +----+ + + + +---- ---+---------+ AO 07/13/2025 Rest 191 72 112 6:28:17 PM +----+ + + + +---- ---+---------+ LV 07/13/2025 Rest 225 1 26 6:28:17 PM +----+ + + + +---- ---+---------+ Complications: No vascular access complications were revealed. No bleeding events occurred during the procedure. No device related events. Cardiac Cath Post Procedure Notes: Post Procedure Diagnosis: Successful GURJIT. Blood Loss: Estimated blood loss during the procedure was 10 mls. Specimens Removed: Number of specimen(s) removed: none. CONCLUSIONS: 1. Successful GURJIT using a Evolut FX+ 34. 2. ASA indefinately. 3. Patient was enrolled in a research study and data was included in the TVT Registry. ICD 10 Codes: Nonrheumatic aortic (valve) stenosis-I35.0 CPT Codes: GURJIT Perc,femoral-39085.62 [id number] Dorothy Barbosa MD Performing Physician Final CONCLUSIONS: 1. Successful GURJIT using a Evolut FX+ 34. 2. ASA indefinately. 3. Patient was enrolled in a research study and data was included in the TVT Registry. Transthoracic Echo (TTE) Limited Result Date: 07/14/2025 [facility], [address] [place] [address] and TRANSTHORACIC ECHOCARDIOGRAM REPORT Patient Name: KITTY Peña JAI Walker Physician: [id number] Marshall Avilez MD Study Date: 07/14/2025 Ordering Provider: [id number] JOSEF ASHERWhit MRN/PID: [id number] Fellow: Nurse: Date of /Age: 1007/06/1940 Manager Garden: Fer galeano RDCAMILO Gender assigned at M Additional Staff: : Height: 175.00 cm Admit Date: 07/13/2025 Weight: 103.00 kg Admission Status: Inpatient - Routine BSA / BMI: 2.18 m2 / 33.63 kg/m2 Blood Pressure: 164/71 mmHg Department Location: [place] [address] Study Type: TRANSTHORACIC ECHO (TTE) LIMITED Diagnosis/ICD: Encounter for other specified special examinations-Z01.89 Indication: S/P TAVR (transcatheter aortic valve replacement); CPT Code: Echo Limited-81105; Doppler Limited-35297; Color Doppler-11483 Patient History: Pertinent History: HTN, Hyperlipidemia, CAD and LE Edema. Bradycardia, GERD, CKD IV, Cardiac Stent. S/p TAVR-34mm Medtronic Evolut. Study Detail: The following Echo studies were performed: 2D, M-Mode, Doppler and color flow. Technically challenging study due to body habitus and patient lying in supine position. Unable to obtain subcostal view. PHYSICIAN INTERPRETATION: Left Ventricle: Left ventricular ejection fraction is normal calculated by Villalobos's biplane at 62%. There are no regional left ventricular wall motion abnormalities. The left ventricular cavity size is normal. Left ventricular diastolic filling was not assessed. Left Atrium: The left atrial size is normal. Right Ventricle: The right ventricle was not well visualized. Unable to determine right ventricular systolic function. Right Atrium: The right atrial size was not well visualized. Aortic Valve: There is a prosthetic aortic valve present. The aortic valve area by VTI is 1.77 cm with a peak velocity of 1.95 m/s. The peak and mean gradients are 15 mmHg and 9 mmHg, respectively with a dimensionless index of 0.56. Echo findings are consistent with normal aortic valve prosthesis structure and function. There is no evidence of aortic valve regurgitation. The patient is s/p 34 mm Evolut Fx+. Mitral Valve: The mitral valve is mildly thickened. There is trace mitral valve regurgitation. Tricuspid Valve: The tricuspid valve was not well visualized. Tricuspid regurgitation was not assessed. The right ventricular systolic pressure could not be estimated. Pulmonic Valve: The pulmonic valve is not well visualized. The pulmonic valve regurgitation was not well visualized. Pericardium: There is no pericardial effusion noted. There is a pericardial fat pad present. Aorta: The aortic root was not well visualized. The ascending aorta was not well visualized. Systemic Veins: The inferior vena cava was not well visualized, IVC inspiratory collapse is not well visualized. In comparison to the previous echocardiogram(s): Compared with study dated 07/13/2025, the patient is now s/p 34 mm Evolut Fx+ TAVR with reduction in aortic gradients. CONCLUSIONS: 1. Poorly visualized anatomical structures due to suboptimal image quality. 2. Left ventricular ejection fraction is normal calculated by Villalobos's biplane at 62%. 3. Echo findings are consistent with normal aortic valve prosthesis structure and function. 4. Unable to determine right ventricular systolic function. 5. No regional left ventricular wall motion abnormalities. 6. Compared with study dated 07/13/2025, the patient is now s/p 34 mm Evolut Fx+ TAVR with reduction in aortic gradients. QUANTITATIVE DATA SUMMARY: 2D MEASUREMENTS: Normal Ranges: LVEDV Index: 52 ml/m2 LV SYSTOLIC FUNCTION: Normal Ranges: EF-A4C View: 61 % (>=55%) EF-A2C View: 60 % EF-Biplane: 62 % LV EF Reported: 62 % AORTIC VALVE: Normal Ranges: AoV Vmax: 1.95 m/s (<=1.7m/s) AoV Peak P.2 mmHg (<20mmHg) AoV Mean P.0 mmHg (1.7-11.5mmHg) LVOT Max Clyde: 1.01 m/s (<=1.1m/s) AoV VTI: 39.30 cm (18-25cm) LVOT VTI: 22.20 cm LVOT Diameter: 2.00 cm (1.8-2.4cm) AoV Area, VTI: 1.77 cm2 (2.5-5.5cm2) AoV Area,Vmax: 1.63 cm2 (2.5-4.5cm2) AoV Dimensionless Index: 0.56 TRICUSPID VALVE/RVSP: Normal Ranges: Est. RA Pressure: 3 [id number] Marshall Avilez MD Electronically signed on 07/14/2025 at 10:27:47 PM Final CONCLUSIONS: 1. Poorly visualized anatomical structures due to suboptimal image quality. 2. Left ventricular ejection fraction is normal calculated by Villalobos's biplane at 62%. 3. Echo findings are consistent with normal aortic valve prosthesis structure and function. 4. Unable to determine right ventricular systolic function. 5. No regional left ventricular wall motion abnormalities. 6. Compared with study dated 07/13/2025, the patient is now s/p 34 mm Evolut Fx+ TAVR with reduction in aortic gradients. ECG 12 lead Result Date: 07/14/2025 Sinus rhythm with frequent Premature ventricular complexes Left ventricular hypertrophy with repolarization abnormality Abnormal ECG When compared with ECG of 05-MAR-2025 11:45, Premature ventricular complexes are now Present TX interval has decreased T wave inversion now evident in Inferior leads T wave inversion now evident in Anterolateral leads QT has shortened Confirmed by Felix Hernandez ([id number]) on 07/14/2025 9:40:02 AM ECG 12 lead daily Result Date: 07/14/2025 Unusual P axis, possible ectopic atrial rhythm with occasional Premature ventricular complexes Left bundle branch block Abnormal ECG When compared with ECG of 13-JUL-2025 19:48, Ectopic atrial rhythm has replaced Sinus rhythm Transthoracic Echo (TTE) Limited Result Date: 07/14/2025 TRANSTHORACIC ECHOCARDIOGRAM REPORT Patient Name: KITTY VERGARA Reading Physician: [id number] Kenia Yoder MD Study Date: 07/13/2025 Ordering Provider: [id number] JOSEF DIAS MRN/PID: [id number] Fellow: Nurse: Date of /Age: 1007/06/1940 Manager Garden: Vinicio galeano CAMILO Gender assigned at M Additional Staff: : Height: 177.80 cm Admit Date: Weight: 105.24 kg Admission Status: Inpatient - Routine BSA / BMI: 2.22 m2 / 33.29 kg/m2 Blood Pressure: 130/62 mmHg Department Location: [facility] Y[employer] Improvement Engineer Study Type: TRANSTHORACIC ECHO (TTE) LIMITED Diagnosis/ICD: Nonrheumatic aortic (valve) stenosis-I35.0 Indication: TAVR Periprocedure CPT Code: Echo Limited-90451; Doppler Limited-27783; Color Doppler-48885 Patient History: Valve Disorders: Aortic Stenosis. Diabetes: Yes Pertinent History: HTN, Hyperlipidemia, CAD and LE Edema. Bradycardia, GERD, CKD IV, Cardiac Stent. Study Detail: The following Echo studies were performed: 2D, M-Mode, Doppler and color flow. Technically challenging study due to patient lying in supine position. PHYSICIAN INTERPRETATION: Left Ventricle: The left ventricle was not well visualized. The left ventricular ejection fraction could not be measured. The left ventricular cavity size was not assessed. Left ventricular diastolic filling was not assessed. LV appear to have grossly normal systolic function without obvious regional wall motion abnormalities though not well seen. Unable to estimate LVEF. Left Atrium: The left atrial size was not assessed. Right Ventricle: The right ventricle was not well visualized. Unable to determine right ventricular systolic function. Right Atrium: The right atrial size was not well visualized. Aortic Valve: The aortic valve was not well visualized. The aortic valve area by VTI is 1.05 cm with a peak velocity of 3.20 m/s. The peak and mean gradients are 41 mmHg and 22 mmHg, respectively with a dimensionless index of 0.33. There is moderate to severe aortic valve cusp calcification. There is no evidence of aortic valve regurgitation. Baseline- AV not well seen though appears to be moderate to severely calcified/thickened with gradients of 41/22mmHg and DI of 0.33 with no AI. The DI is consistent with moderate though gradients are lower than expected for that degree of . Proceeded to TAVR. Mitral Valve: The mitral valve is normal in structure. There is moderate mitral annular calcification. There is trace mitral valve regurgitation. Tricuspid Valve: The tricuspid valve was not well visualized. Tricuspid regurgitation was not assessed. Pulmonic Valve: The pulmonic valve is not well visualized. Pulmonic valve regurgitation was not assessed. Pericardium: Pericardial effusion was not well visualized. Aorta: The aortic root is abnormal. There is mild dilatation of the aortic root. Systemic Veins: The inferior vena cava was not assessed, IVC inspiratory collapse was not assessed. In comparison to the previous echocardiogram(s): Compared with study dated 10/20/2024, [facility], the prior AV gradients were 73/44mmHg with DI of 0.23 which is consistent with severe and there was no AI at that time. Today's gradients are lower than on prior exam likely due to technically difficult images with limited interrogation in that the LV systolic function appears to be preserved today. Prior LVEF was 67%. Post Transcatheter Aortic Valve Placement (TAVR): The peak instantaneous gradient of the aortic valve is 6.9 mmHg. The mean gradient of the aortic valve is 4.0 mmHg. There is no prosthetic aortic valve regurgitation. There is no nola-prosthetic aortic valve regurgitation. CONCLUSIONS: 1. Poorly visualized anatomical structures due to suboptimal image quality. 2. The left ventricle was not well visualized. The left ventricular ejection fraction could not be measured. 3. LV appear to have grossly normal systolic function without obvious regional wall motion abnormalities though not well seen. Unable to estimate LVEF. 4. Unable to determine right ventricular systolic function. 5. There is moderate mitral annular calcification. 6. Baseline- AV not well seen though appears to be moderate to severely calcified/thickened with gradients of 41/22mmHg and DI of 0.33 with no AI. The DI is consistent with moderate though gradients are lower than expected for that degree of . Proceeded to TAVR. 7. S/p 34mm Medtronic Evolut TAVR with gradients of 6.9/4mmHg and no obvious AI. 8. Compared with study dated 10/20/2024, [facility], the prior AV gradients were 73/44mmHg with DI of 0.23 which is consistent with severe and there was no AI at that time. Today's gradients are lower than on prior exam likely due to technically difficult images with limited interrogation in that the LV systolic function appears to be preserved today. Prior LVEF was 67%. QUANTITATIVE DATA SUMMARY: 2D MEASUREMENTS: Normal Ranges: Ao Root d: 3.70 cm (2.0-3.7cm) AORTIC VALVE: Normal Ranges: AoV Vmax: 3.20 m/s (<=1.7m/s) AoV Vmax Post TAVR: 1.31 m/s (<=1.7m/s) AoV Peak P.0 mmHg (<20mmHg) AoV Peak PG Post TAVR: 6.9 mmHg (<20mmHg) AoV Mean P.0 mmHg (1.7-11.5mmHg) AoV Mean PG Post TAVR: 4.0 mmHg (1.7-11.5mmHg) LVOT Max Clyde: 1.02 m/s (<=1.1m/s) LVOT Max Clyde Post TAVR: 0.98 m/s (<=1.1m/s) AoV VTI: 74.20 cm (18-25cm) AoV VTI Post TAVR: 26.80 cm (18-25cm) LVOT VTI: 24.80 cm LVOT VTI Post TAVR: 23.50 cm LVOT Diameter: 2.00 cm (1.8-2.4cm) LVOT Diameter Post TAVR: 2.00 cm (1.8-2.4cm) AoV Area, VTI: 1.05 cm2 (2.5-5.5cm2) AoV Area, VTI Post TAVR: 2.75 cm2 (2.5-5.5cm2) AoV Area,Vmax: 1.00 cm2 (2.5-4.5cm2) AoV Area,Vmax Post TAVR: 2.35 cm2 (2.5-4.5cm2) AoV Dimensionless Index: 0.33 AoV Dimensionless Index Post TAVR: 0.88 [id number] Kenia Yoder MD Electronically signed on 07/14/2025 at 8:12:45 AM Final CONCLUSIONS: 1. Poorly visualized anatomical structures due to suboptimal image quality. 2. The left ventricle was not well visualized. The left ventricular ejection fraction could not be measured. 3. LV appear to have grossly normal systolic function without obvious regional wall motion abnormalities though not well seen. Unable to estimate LVEF. 4. Unable to determine right ventricular systolic function. 5. There is moderate mitral annular calcification. 6. Baseline- AV not well seen though appears to be moderate to severely calcified/thickened with gradients of 41/22mmHg and DI of 0.33 with no AI. The DI is consistent with moderate though gradients are lower than expected for that degree of . Proceeded to TAVR. 7. S/p 34mm Medtronic Evolut TAVR with gradients of 6.9/4mmHg and no obvious AI. 8. Compared with study dated 10/20/2024, [facility], the prior AV gradients were 73/44mmHg with DI of 0.23 which is consistent with severe and there was no AI at that time. Today's gradients are lower than on prior exam likely due to technically difficult images with limited interrogation in that the LV systolic function appears to be preserved today. Prior LVEF was 67%. ECG 12 lead daily Result Date: 07/14/2025 Sinus rhythm with 1st degree AV block with occasional Premature ventricular complexes Left bundle branch block Abnormal ECG When compared with ECG of 13-JUL-2025 14:14, TX interval has increased Left bundle branch block is now Present LDA: Urethral Catheter (Active) Placement Date/Time: 07/16/25 1200 Hand Hygiene Completed: Yes Catheter Balloon Size: 5 mL Urine Returned: Yes Number of days: 0 NUTRITION: Adult diet Regular EMERGENCY CONTACT: Extended Emergency Contact Information Primary Emergency Contact: Vicky Vergara (Adriel) Mobile Relation: 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 Regional Sales Coordinator needed? No CODE STATUS: Full Code DISPO: Discharge Planning Living Arrangements: Spouse/significant other Support Systems: Spouse/significant other, Family members Assistance Needed: IPTA Type of Residence: Private residence Number of Stairs to Enter Residence: 0 Number of Stairs Within Residence: 0 Do you have animals or pets at home?: No Who is requesting discharge planning?: Provider Home or Post Acute Services: None Expected Discharge Disposition: Detention Facility (SNF) Does the patient need discharge transport arranged?: No AMPAC: Daily Activity - Total Score: 12 FOLLOWUP: Future Appointments Date Time Provider Department Center 07/22/2025 11:20 AM Matilde Regan MD [facility] 07/30/2025 10:30 AM Srikanth Howell DIESEL SERVICE APPRENTICE-MINE ENGINEERING SUPERVISOR, DNP [id number] [facility] 08/13/2025 1:30 PM BRAD [id number] [id number] [facility] 08/31/2025 10:00 AM Daniel Almanzar MD [id number] [facility] 10/23/2025 10:45 AM Nima Fay MD [id number] [facility] 07/15/2026 9:30 AM BRAD [id number] CARD1 [id number] [facility] [1] Medications Prior to Admission Medication Sig Dispense Refill Last Dose/Taking acetaminophen (Tylenol 8 HOUR) 650 mg ER tablet Take 1 tablet (650 mg) by mouth every 8 hours if needed for mild pain (1 - 3). Do not crush, chew, or split. Past Month allopurinol (Zyloprim) 300 mg tablet Take 1 tablet by mouth once daily 90 tablet 0 07/12/2025 amLODIPine (Norvasc) 10 mg tablet Take 1 tablet (10 mg) by mouth once daily. 90 tablet 3 07/12/2025 aspirin 81 mg chewable tablet Chew 1 tablet (81 mg) once daily. 30 tablet 11 07/12/2025 blood sugar diagnostic (Blood Glucose Test) 1 strip early in the morning.. 100 strip 11 07/12/2025 bumetanide (Bumex) 0.5 mg tablet Take 1 tablet (0.5 mg) by mouth once daily. 30 tablet 11 07/12/2025 clopidogrel (Plavix) 75 mg tablet Take 1 tablet (75 mg) by mouth once daily. Do not fill before January 26, 2025. 90 tablet 3 07/12/2025 ezetimibe (Zetia) 10 mg tablet Take 1 tablet (10 mg) by mouth once daily. 30 tablet 11 07/12/2025 gabapentin (Neurontin) 300 mg capsule Take 1 capsule (300 mg) by mouth 2 times a day. 180 capsule 1 07/12/2025 glucosamine/chondr hogue A sod (OSTEO BI-FLEX ORAL) Take 1 capsule by mouth once daily. 07/12/2025 insulin glargine-lixisenatide (Soliqua 100/33) 100 unit-33 mcg/mL insulin pen Inject 19 Units under the skin once daily. 15 mL 11 07/12/2025 lansoprazole (Acid Summer Clerk, lansoprazole,) [address] capsule Take 1 capsule (15 mg) by mouth once daily. 07/12/2025 pen needle, diabetic 31 gauge x 5/16" needle 1 each once daily. 100 each 3 07/12/2025 cetirizine (ZyrTEC) 10 mg tablet Take 1 tablet (10 mg) by mouth once daily. (Patient not taking: Reported on 07/13/2025) Not Taking empagliflozin (Jardiance) 10 mg tablet Take 1 tablet (10 mg) by mouth once daily. 30 tablet 5 07/11/2025 Occupational Therapy Therapy Communication Note Patient Name: Kitty Allen Department: [facility] 5 Room: [address] [place] [address] Today's Date: 07/16/2025 Discipline: Occupational Therapy Missed Visit: OT Missed Visit: Yes Missed Visit Reason: Missed Visit Reason: Patient refused Missed Time: Attempt Comment: Pt eating upon arrival. Pt's requesting to come back later as pt has not been eating lately. OT will reattempt as able and appropriate. Kelsey Biggs OTR/L Communication Note Patient Name: Kitty Allen Today's Date: 07/16/2025 Room: [address] [place] [address] Discipline: Physical Therapy PT Missed Visit: Yes Missed Visit Reason: Patient refused (Pt was middle of eating) 07/16/25 at 2:19 PM BESSIE YUN PT Rehab Office: [phone] 07/16/25 1401 Rapid Rounds Attendance Provider;Nurse;Care Transitions;Pharmacist Expected Discharge Disposition SNF Today we still await: Clinical stability Review at Escalation Rounds Clinically complex The patient is not yet medically ready for discharge. PT/OT will re-evaluate closer to discharge, a psychiatric evaluation is pending, and medication adjustments are ongoing to optimize the patient s readiness for discharge.Adod 3-4 days Subjective Data: Appears less agitated. Continues to have incoherent speech. Followed simple command to squeeze fingers. Overnight Events: Continued agitation per nursing. Today's Events/Plans: -Psych consulted for agitation mgmt. Appreciate recs. -De Oliveira catheter for continued need of straight cathter -PT/OT eval when able for SNF placement. Objective Data: Last Recorded Vitals: Vitals: 07/16/25 0400 07/16/25 0800 07/16/25 0842 07/16/25 1200 BP: 164/83 BP Location: Right arm Patient Position: Lying Pulse: 87 83 82 79 Resp: (!) 28 18 21 20 Temp: 36.4 C (97.5 F) TempSrc: Temporal SpO2: 95% 98% 95% 90% Weight: Height: Last Labs: CBC - 07/16/2025: 8:48 AM 9.6 11.5 163 36.4 CMP - 07/16/2025: 8:48 AM 9.1 6.8 18 --- 0.7 3.2 3.8 12 91 PTT - No results in last year. 1.1 12.7 _ TROPHS Date/Time Value Ref Range Status 03/04/2025 02:12 PM 11 0 - 20 ng/L Final 03/04/2025 01:10 PM 13 0 - 20 ng/L Final 10/18/2024 03:57 PM 11 0 - 20 ng/L Final BNP Date/Time Value Ref Range Status 10/18/2024 03:57 PM 321 0 - 99 pg/mL Final HGBA1C Date/Time Value Ref Range Status 07/15/2025 06:34 AM 7.0 See comment % Final 03/09/2025 08:32 AM 6.6 <5.7 % Final Comment: For someone without known diabetes, a hemoglobin A1c value of 6.5% or greater indicates that they may have diabetes and this should be confirmed with a follow-up test. For someone with known diabetes, a value <7% indicates that their diabetes is well controlled and a value greater than or equal to 7% indicates suboptimal control. A1c targets should be individualized based on duration of diabetes, age, comorbid conditions, and other considerations. Currently, no consensus exists regarding use of hemoglobin A1c for diagnosis of diabetes for children. 09/05/2024 07:38 AM 7.2 See comment % Final LDLCALC Date/Time Value Ref Range Status 07/15/2025 06:34 AM 76 <=99 mg/dL Final Comment: Near Borderline AGE Desirable Optimal High High Very High 0-19 Y 0 - 109 --- 110-129 >/= 130 ---- 20-24 Y 0 - 119 --- 120-159 >/= 160 ---- >24 Y 0 - 99 100-129 130-159 160-189 >/=190 LDL Cholesterol is calculated using the Friedewald equation. 09/26/2024 07:54 AM 42 <=99 mg/dL Final Comment: Near Borderline AGE Desirable Optimal High High Very High 0-19 Y 0 - 109 --- 110-129 >/= 130 ---- 20-24 Y 0 - 119 --- 120-159 >/= 160 ---- >24 Y 0 - 99 100-129 130-159 160-189 >/=190 VLDL Date/Time Value Ref Range Status 07/15/2025 06:34 AM 31 0 - 40 mg/dL Final 09/26/2024 07:54 AM 60 0 - 40 mg/dL Final 03/29/2022 07:54 AM SEE COMMENT 0 - 40 mg/dL Final Comment: Unable to calculate VLDL. 03/29/2020 08:37 AM SEE COMMENT 0 - 40 mg/dL Final Comment: Unable to calculate VLDL. Last I/O: I/O last 3 completed shifts: In: 180 (1.7 mL/kg) [P.O.:180] Out: 1481 (13.6 mL/kg) [Urine:1481 (0.4 mL/kg/hr)] Weight: 108.5 kg Past Cardiology Tests (Last 3 Years): EKG: ECG 12 lead daily 07/14/2025 (Preliminary) ECG 12 lead daily 07/13/2025 (Preliminary) ECG 12 lead 07/13/2025 ECG 12 Lead 03/05/2025 ECG 12 lead 03/04/2025 ECG 12 lead 03/04/2025 ECG 12 lead STAT 01/19/2025 Electrocardiogram 12 Lead 01/19/2025 ECG 12 lead (Clinic Performed) 12/08/2024 ECG 12 lead ECG 12 lead 05/29/2024 Echo: Transthoracic Echo (TTE) Limited 07/14/2025 Transthoracic Echo (TTE) Limited 07/13/2025 Transthoracic Echo (TTE) Complete 10/20/2024 Ejection Fractions: EF Date/Time Value Ref Range Status 07/14/2025 03:18 PM 62 % 10/20/2024 07:19 AM 67 % Cath: Cardiac Catheterization Procedure 07/13/2025 Cardiac Catheterization Procedure 01/19/2025 Stress Test: No results found for this or any previous visit from the past 1095 days. Cardiac Imaging: No results found for this or any previous visit from the past 1095 days. Inpatient Medications: Scheduled Medications[1] PRN Medications[2] Continuous Medications[3] Physical Exam: General: NAD, lying in bed Skin: warm and dry Head/ neck: no JVD seen at 90 degrees Cardiac: RRR, S1, S2 Pulm: CTAB, room air GI: soft, nontender Extremities: no LE edema Neuro: expressive aphasia Psych: agitated at times Assessment/Plan Kitty Vergara is a 85 y.o. male with a PMH of BPH, GERD, CKD stage 4, DMII hgAIc 6.6, CAD s/p LHC/RHC with PCI- 01/19/25, on Plavix and ASA 81mg, bardycardia, and severe non-rheumatic aortic stenosis. Pt presented on 07/13/2025 for elective TAVR. Overnight on 07/14/25 BAT called for abnormal speech and AMS concerning for stroke. Transferred to HVI service for management. TAVR 07/14 - TTE 07/14 EF 62%. normal aortic valve prosthesis structure and function. No WMA. Compared with study dated 07/13/2025, the patient is now s/p 34 mm Evolut Fx+ TAVR with reduction in aortic gradients. - CXR 07/14 Mild pulmonary vascular congestion compared to the previous study. - 07/15 Home bumex dose is 0.5, increased to 1mg on 07/13. Lowered back to 0.5 since he had confusion and taking less PO intake today. - Single antiplatelet for life is recommended post tavr but given with pt h xof PCI 01/19/25 pt will need ASA and Plavix until next year 01/19/26 Acute Stroke 07/14 - expressive aphasia - CT head and CTA head/neck which did not demonstrate any new stroke or any large vessel occlusion. - Carodis with Left greater than right with stenosis of the distal left common carotid artery measuring up to approximately 60-65%. Nonspecific white matter changes most likely represent small-vessel ischemic disease in a patient of this age. No evidence of acute cortical infarct, mass effect, or ICH. There are areas of encephalomalacia in the cerebellum which could reflect remote infarcts. - MRI brain 07/14 scattered areas of acute to early subacute infarction within the cerebral hemispheres bilaterally left greater than right as well as within the left cerebellar hemisphere as described above. The dominant area of acute to early subacute infarction is identified within the left temporoparietal region. The above findings are superimposed upon moderate brain parenchymal volume loss. There are scattered as well as more patchy and confluent nonspecific white matter changes again noted within cerebral hemispheres bilaterally as well as ill-defined increased signal on the FLAIR and T2 images overlying the brainstem which while nonspecific, given the patient's age, likely represent sequelae of more remote small-vessel ischemic change. Additional small foci of bright signal on the T2 images are identified within the subinsular regions, basal ganglia, and thalami bilaterally suggesting incidental mildly prominent perivascular spaces and/or scattered more remote lacunar infarctions.Scattered areas of encephalomalacia are identified within the cerebellum as well as along the posterior right occipital lobe. - Neuro consulted, no objection to DAPT, defer to primary. Follow up stroke clinic (requested), continue speech therapy. Signed off - PT/OT - 07/15 Combative, required haldol. - 07/16 Psych consulted for agitation mgmt - Hx fall day of TAVR, slipped off chair in kitchen and landed on buttocks. No trauma. CKD Stage 4 - Cr today 2.68 - Baseline 2-2.2 - 07/15 Reduce bumex back to home dose of 0.5 CAD HLP - s/p PCI to prox-mid LAD using [address] Jessie Fay - Single antiplatelet for life is recommended post tavr but given with pt h xof PCI 01/19/25 pt will need ASA and Plavix until next year 01/19/26 - lipid panel ordered per neuro request ->HDL 35.4, LDL 76,Trigs 154 - Allergy to statin, continue zetia HTN - Pt with SBP wolf 140-170 - Blood pressure goals: avoid hypotension SBP <100 that could worsen cerebral perfusion, permissive HTN - Continue amlodipine 2.5mg daily DM - HgbA1C 6.6 02/2025 - (7.0) rechecked HgbA1C per neuro request - Lantus 10u+SS Urinary Retention BPH - Hx ureteroscopy, cysto with retrograde pyelogram and bladder lesion ablation 10/28/24. Cysto showed severe bladder trabeculation, no mass. Prostate enlargement. - Hx requiring de oliveira for 2 months, was on flomax and proscar - Hx cystoscopy showed severe bladder trabeculation, no mass, prostate enlargement S/P Endoscopic Anatomical Prostate Enucleation ~ HoLEP 03/30/25 with improvement in emptying - 07/15 Patient wants to urinate out of bed, for safety reasons kept in bed, unable to follow command to urinate in urinal. Became agitated. straight cath Q shift PRN urine >400 on bladder scan - 07/16 De Oliveira placed for continued need of straight cath (rec only 1/2 inflating balloon to decrease risk of potential injury . DVT ppx:heparin Sq DISPO: pending PT/OT and speech eval All labs, vital signs, tests & imaging results, and medications were reviewed. Seen and discussed with Dr. Ady Ridley, ARNAUD-RICARDO [1] Scheduled medications Medication Dose Route Frequency amLODIPine 2.5 mg oral Daily aspirin 81 mg oral Daily bumetanide 0.5 mg oral Daily clopidogrel 75 mg oral Daily docusate sodium 100 mg oral BID ezetimibe 10 mg oral Daily gabapentin 300 mg oral BID heparin (porcine) 5,000 Units subcutaneous q8h insulin glargine 10 Units subcutaneous Nightly insulin lispro 0-10 Units subcutaneous TID AC pantoprazole 40 mg oral Daily before breakfast Or pantoprazole 40 mg intravenous Daily before breakfast perflutren lipid microspheres 0.5-10 mL of dilution intravenous Once in imaging [2] PRN medications Medication acetaminophen Or acetaminophen Or acetaminophen benzocaine-menthol dextrose dextrose diazePAM glucagon glucagon lidocaine-epinephrine melatonin ondansetron Or ondansetron oxygen phenoL prochlorperazine Or prochlorperazine Or prochlorperazine traMADol [3] Continuous Medications Medication Dose Last Rate Cosigned by Kapil Garsia MD at 07/17/2025 12:12 PM EDT Associated attestation - Kapil Garsia MD - 07/17/2025 12:12 PM EDT This is a shared visit. I have reviewed the Advanced Practice Provider's encounter note, approve the Advanced Practice Provider's documentation, and provide the following additional information from my personal encounter. Please see my progress note from today for additional details. Kapil Garsia MD Inpatient ROOF PLUMBER Speech-Language Evaluation Patient Name: Kitty Allen Today's Date: 07/16/2025 Time Calculation Start Time: 1400 Stop Time: 1420 Time Calculation (min): 20 min Recommendations: --Continued Speech-Language services at current level of care and next level of care --Communication partner training and communication strategies ROOF PLUMBER Assessment: #Expressive/Receptive Aphasia Patient demonstrates severe expressive/receptive deficits impacting word-finding, expressing wants/needs, comprehension of single step commands, and auditory processing. Speech is characterized as fluent with limited verbal output. Present semantic paraphasias. The Quick Aphasia Battery was attempted but discontinued 2/2 pt ability and agitation. Informal assessment of language abilities were obtained and noted in full below. Receptive language is characterized by impaired comprehension of commands, y/n questions, and orientation questions. Expressive language is impaired characterized by paraphasias, confrontation naming deficits, and difficulties with word finding. Pt benefited from written cues and given choices from a field of two. Education provided to patient/family regarding communication strategies, compensatory supports, cognitive stimulation, and prognosis. Teach-back confirms partial understanding. Reeducation/Additional education needed for further communication partner training and communication compensatory strategies. Recommend skilled therapy to maximize safety, independence, and participation in care. Due to the deficits above the pt would benefit from skilled speech therapy services at current level of care. This evaluation is not intended to assess decision-making capacity. For questions regarding capacity, please consult neuropsychology and/or the medical team. ROOF PLUMBER Plan: Plan Inpatient/Swing Bed or Outpatient: Inpatient Treatment/Interventions: Expressive language, Receptive language ROOF PLUMBER TX Plan: Continue Plan of Care ROOF PLUMBER Plan: Skilled ROOF PLUMBER ROOF PLUMBER Frequency: 1x per week Duration: 30 days ROOF PLUMBER Discharge Recommendations: Continue skilled ROOF PLUMBER services at the next level of care Discussed POC: Patient Discussed Risks/Benefits: Yes, Caregiver/Family Patient/Caregiver Agreeable: Yes ROOF PLUMBER - OK to Discharge: Yes Goals: Encounter Problems Encounter Problems (Active) Communication LTG - Patient will improve expressive language skills to allow for communication of wants and needs in daily activities with 90% accuracy given minimal cues. Start: 07/16/25 Expected End: 08/16/25 LTG - Patient will improve receptive language skills and comprehension to complete daily activities with 90% accuracy given minimal cues. Start: 07/16/25 Expected End: 08/16/25 Subjective Current Problem: "Kitty Stallworth" is a 85 y.o. left handed male with a history of HTN, HLD, DM2, CKD, Gout, OA, obesity admitted on 07/13/2025 for a scheduled TAVR. Stroke neurology consulted 07/14 for acute mixed aphasia. LKW prior to OR. iNIHSS 11 (Q2, C1, Aphasia2, LLE3, RLE3). CTH shows old L caudate hypodensity and ?R temporal hypodensity. CTA H/N with patent anterior and posterior circulations. OOW TNK. Not a candidate for EVT given no LVO. Repeat NIH the following day 5 for severe aphasia and questions/commands. TTE with EF 62%, normal LA size. A1c 6.6 02/2025, LDL 42 10/2024. MRI brain recommended and resulted as expected with embolic left > right cerebral hemispheric and left cerebellar infarcts, acute to subacute. Left MCA distribution infarct correlates with patient's symptoms of aphasia." Current presentation: Pt received informal language evaluation. Frustration/agitation observed throughout evaluation. Breathing Breathing on room air. General Visit Information: General Information Chart Reviewed: Yes Prior to Session Communication: Bedside nurse Objective Cognition: Assessment limited 2/2 severe expressive/receptive language deficits. Motor Speech Production: Limited 2/2 poor command following Language: Receptive: Auditory Comprehension Yes/No Questions: Impaired Commands: Impaired One Step Basic Commands: Impaired Two Step Basic Commands: Impaired Multistep Basic Commands: Impaired Complex/Abstract Commands: Impaired - 1 Step Directions : 0% accuracy verbal cues, visual cues , clinician modeling, and increased processing time - 2 Step Directions: 0% accuracy verbal cues, visual cues , clinician modeling, and increased processing time - Multi-Step Directions: 0% accuracy verbal cues, visual cues , clinician modeling, and increased processing time - Simple Yes/No Questions: 10% accuracy verbal cues, visual cues , clinician modeling, and increased processing time - Complex Yes/No Questions: 0% accuracy verbal cues, visual cues , clinician modeling, and increased processing time Expressive: Verbal Expression Primary Mode of Expression: Verbal Primary Language: Israeli Confrontation Naming: Impaired Confrontation Objects: Impaired Repetition: Impaired Sentence Completion: Impaired Open Ended Questions: Impaired Conversation: Impaired -Automatics: -Countin% accuracy verbal cues, visual cues , clinician modeling, and increased processing time -Days of Week: 0% accuracy verbal cues, visual cues , clinician modeling, and increased processing time - Naming - Confrontational naming of Objects: 0% accuracy verbal cues, visual cues , clinician modeling, and increased processing time Reading: - 1 Step Directions : 0% accuracy verbal cues, visual cues , and increased processing time - 2 Step Directions: 0% accuracy verbal cues, visual cues , and increased processing time - Simple Yes/No Questions: 10% accuracy verbal cues, visual cues , and increased processing time - Complex Yes/No Questions: 0% accuracy verbal cues, visual cues , and increased processing time Writing: Not assessed this date. Inpatient Education: Pt/family educated regarding results and recommendations. Pt/family expressed some understanding and would benefit from continued education on communication strategies/POC. S-ROOF PLUMBER: Goldie Travis Cosigned by TEDDY Nguyen at 07/16/2025 3:33 PM EDT Associated attestation - Selina Stephens SLP - 07/16/2025 3:33 PM EDT I saw and evaluated/treated the patient, participating in the davis elements of the service. I discussed the findings, assessment and plan of care with the student and agree with ROOF PLUMBER student s findings and plan of care as documented . Selina Stephens MA, JORDIN/ROOF PLUMBER Inpatient Speech-Language Pathologist [facility] Secure Chat Preferred HPI Kitty Vergara is a 85 y.o. male with a PMH as listed below presented for elective TAVR on 07/13/25 Patient Active Problem List Diagnosis Date Noted Bradycardia 03/04/2025 H/O heart artery stent 02/25/2025 Chronic kidney disease (CKD), stage IV (severe) (Multi) 12/08/2024 Nonrheumatic aortic valve stenosis 10/31/2024 Lesion of bladder 10/07/2024 Erectile dysfunction 10/01/2024 Urinary retention 10/01/2024 Type 2 diabetes mellitus with chronic kidney disease, with long-term current use of insulin (Multi) 09/09/2024 Primary osteoarthritis of right shoulder 08/28/2023 Chronic right shoulder pain 02/22/2023 BPH (benign prostatic hyperplasia) 02/21/2023 Chronic GERD 02/21/2023 Edema of both legs 02/21/2023 Gout 02/21/2023 Hyperlipidemia 02/21/2023 Hypertension 02/21/2023 Nocturia 02/21/2023 Obesity 02/21/2023 Nonrheumatic aortic (valve) stenosis 07/07/2025 Enlarged prostate with urinary obstruction 02/05/2025 Bladder tumor 10/16/2024 LOS: 3 days Objective Vital signs in last 24 hours: Temp: [36.4 C (97.5 F)-37.3 C (99.1 F)] 36.4 C (97.5 F) Heart Rate: [76-88] 82 Resp: [17-28] 21 BP: (141-164)/(72-126) 164/83 Physical Exam: Eyes: PERRL, EOMI, clear sclera ENMT: mucous membranes moist, no apparent injury, no lesions seen Head/Neck: Neck supple, no apparent injury, thyroid without mass or tenderness, No JVD, trachea midline, no bruits Respiratory/Thorax: Patent airways, good chest expansion, thorax symmetric, CTA Cardiovascular: Regular rate and rhythm, no murmurs, normal S 1and S 2 Gastrointestinal: Nondistended, soft, non-tender, no rebound tenderness or guarding, no masses palpable, no organomegaly, +BS, no bruits Extremities: normal extremities, no cyanosis, bilat groins c/d/i with dsd no s/s of hematoma Neurological: follows simple commands Skin: Warm and dry, intact Cardiographics Echocardiogram: Transthoracic Echo (TTE) Limited Result Date: 07/14/2025 [facility], [address] [place] [address] and TRANSTHORACIC ECHOCARDIOGRAM REPORT Patient Name: KITTY Walker Physician: [id number] Marshall Avilez MD Study Date: 07/14/2025 Ordering Provider: [id number] JOSEF DIAS MRN/PID: [id number] Fellow: Nurse: Date of /Age: 1007/06/1940 Manager Garden: Fer galeano RDCAMILO Gender assigned at M Additional Staff: : Height: 175.00 cm Admit Date: 07/13/2025 Weight: 103.00 kg Admission Status: Inpatient - Routine BSA / BMI: 2.18 m2 / 33.63 kg/m2 Blood Pressure: 164/71 mmHg Department Location: [place] [address] Study Type: TRANSTHORACIC ECHO (TTE) LIMITED Diagnosis/ICD: Encounter for other specified special examinations-Z01.89 Indication: S/P TAVR (transcatheter aortic valve replacement); CPT Code: Echo Limited-27597; Doppler Limited-05020; Color Doppler-07270 Patient History: Pertinent History: HTN, Hyperlipidemia, CAD and LE Edema. Bradycardia, GERD, CKD IV, Cardiac Stent. S/p TAVR-34mm Medtronic Evolut. Study Detail: The following Echo studies were performed: 2D, M-Mode, Doppler and color flow. Technically challenging study due to body habitus and patient lying in supine position. Unable to obtain subcostal view. PHYSICIAN INTERPRETATION: Left Ventricle: Left ventricular ejection fraction is normal calculated by Villalobos's biplane at 62%. There are no regional left ventricular wall motion abnormalities. The left ventricular cavity size is normal. Left ventricular diastolic filling was not assessed. Left Atrium: The left atrial size is normal. Right Ventricle: The right ventricle was not well visualized. Unable to determine right ventricular systolic function. Right Atrium: The right atrial size was not well visualized. Aortic Valve: There is a prosthetic aortic valve present. The aortic valve area by VTI is 1.77 cm with a peak velocity of 1.95 m/s. The peak and mean gradients are 15 mmHg and 9 mmHg, respectively with a dimensionless index of 0.56. Echo findings are consistent with normal aortic valve prosthesis structure and function. There is no evidence of aortic valve regurgitation. The patient is s/p 34 mm Evolut Fx+. Mitral Valve: The mitral valve is mildly thickened. There is trace mitral valve regurgitation. Tricuspid Valve: The tricuspid valve was not well visualized. Tricuspid regurgitation was not assessed. The right ventricular systolic pressure could not be estimated. Pulmonic Valve: The pulmonic valve is not well visualized. The pulmonic valve regurgitation was not well visualized. Pericardium: There is no pericardial effusion noted. There is a pericardial fat pad present. Aorta: The aortic root was not well visualized. The ascending aorta was not well visualized. Systemic Veins: The inferior vena cava was not well visualized, IVC inspiratory collapse is not well visualized. In comparison to the previous echocardiogram(s): Compared with study dated 07/13/2025, the patient is now s/p 34 mm Evolut Fx+ TAVR with reduction in aortic gradients. CONCLUSIONS: 1. Poorly visualized anatomical structures due to suboptimal image quality. 2. Left ventricular ejection fraction is normal calculated by Villalobos's biplane at 62%. 3. Echo findings are consistent with normal aortic valve prosthesis structure and function. 4. Unable to determine right ventricular systolic function. 5. No regional left ventricular wall motion abnormalities. 6. Compared with study dated 07/13/2025, the patient is now s/p 34 mm Evolut Fx+ TAVR with reduction in aortic gradients. QUANTITATIVE DATA SUMMARY: 2D MEASUREMENTS: Normal Ranges: LVEDV Index: 52 ml/m2 LV SYSTOLIC FUNCTION: Normal Ranges: EF-A4C View: 61 % (>=55%) EF-A2C View: 60 % EF-Biplane: 62 % LV EF Reported: 62 % AORTIC VALVE: Normal Ranges: AoV Vmax: 1.95 m/s (<=1.7m/s) AoV Peak P.2 mmHg (<20mmHg) AoV Mean P.0 mmHg (1.7-11.5mmHg) LVOT Max Clyde: 1.01 m/s (<=1.1m/s) AoV VTI: 39.30 cm (18-25cm) LVOT VTI: 22.20 cm LVOT Diameter: 2.00 cm (1.8-2.4cm) AoV Area, VTI: 1.77 cm2 (2.5-5.5cm2) AoV Area,Vmax: 1.63 cm2 (2.5-4.5cm2) AoV Dimensionless Index: 0.56 TRICUSPID VALVE/RVSP: Normal Ranges: Est. RA Pressure: 3 [id number] Marshall Avilez MD Electronically signed on 07/14/2025 at 10:27:47 PM Final CONCLUSIONS: 1. Poorly visualized anatomical structures due to suboptimal image quality. 2. Left ventricular ejection fraction is normal calculated by Villalobos's biplane at 62%. 3. Echo findings are consistent with normal aortic valve prosthesis structure and function. 4. Unable to determine right ventricular systolic function. 5. No regional left ventricular wall motion abnormalities. 6. Compared with study dated 07/13/2025, the patient is now s/p 34 mm Evolut Fx+ TAVR with reduction in aortic gradients. 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 Diabetes: Yes Pertinent History: HTN, Hyperlipidemia, CAD and LE Edema. Bradycardia, GERD, CKD IV, Cardiac Stent. Study Detail: The following Echo studies were performed: 2D, M-Mode, Doppler and color flow. Technically challenging study due to patient lying in supine position. PHYSICIAN INTERPRETATION: Left Ventricle: The left ventricle was not well visualized. The left ventricular ejection fraction could not be measured. The left ventricular cavity size was not assessed. Left ventricular diastolic filling was not assessed. LV appear to have grossly normal systolic function without obvious regional wall motion abnormalities though not well seen. Unable to estimate LVEF. Left Atrium: The left atrial size was not assessed. Right Ventricle: The right ventricle was not well visualized. Unable to determine right ventricular systolic function. Right Atrium: The right atrial size was not well visualized. Aortic Valve: The aortic valve was not well visualized. The aortic valve area by VTI is 1.05 cm with a peak velocity of 3.20 m/s. The peak and mean gradients are 41 mmHg and 22 mmHg, respectively with a dimensionless index of 0.33. There is moderate to severe aortic valve cusp calcification. There is no evidence of aortic valve regurgitation. Baseline- AV not well seen though appears to be moderate to severely calcified/thickened with gradients of 41/22mmHg and DI of 0.33 with no AI. The DI is consistent with moderate though gradients are lower than expected for that degree of . Proceeded to TAVR. Mitral Valve: The mitral valve is normal in structure. There is moderate mitral annular calcification. There is trace mitral valve regurgitation. Tricuspid Valve: The tricuspid valve was not well visualized. Tricuspid regurgitation was not assessed. Pulmonic Valve: The pulmonic valve is not well visualized. Pulmonic valve regurgitation was not assessed. Pericardium: Pericardial effusion was not well visualized. Aorta: The aortic root is abnormal. There is mild dilatation of the aortic root. Systemic Veins: The inferior vena cava was not assessed, IVC inspiratory collapse was not assessed. In comparison to the previous echocardiogram(s): Compared with study dated 10/20/2024, [facility], the prior AV gradients were 73/44mmHg with DI of 0.23 which is consistent with severe and there was no AI at that time. Today's gradients are lower than on prior exam likely due to technically difficult images with limited interrogation in that the LV systolic function appears to be preserved today. Prior LVEF was 67%. Post Transcatheter Aortic Valve Placement (TAVR): The peak instantaneous gradient of the aortic valve is 6.9 mmHg. The mean gradient of the aortic valve is 4.0 mmHg. There is no prosthetic aortic valve regurgitation. There is no nola-prosthetic aortic valve regurgitation. CONCLUSIONS: 1. Poorly visualized anatomical structures due to suboptimal image quality. 2. The left ventricle was not well visualized. The left ventricular ejection fraction could not be measured. 3. LV appear to have grossly normal systolic function without obvious regional wall motion abnormalities though not well seen. Unable to estimate LVEF. 4. Unable to determine right ventricular systolic function. 5. There is moderate mitral annular calcification. 6. Baseline- AV not well seen though appears to be moderate to severely calcified/thickened with gradients of 41/22mmHg and DI of 0.33 with no AI. The DI is consistent with moderate though gradients are lower than expected for that degree of . Proceeded to TAVR. 7. S/p 34mm Medtronic Evolut TAVR with gradients of 6.9/4mmHg and no obvious AI. 8. Compared with study dated 10/20/2024, [facility], the prior AV gradients were 73/44mmHg with DI of 0.23 which is consistent with severe and there was no AI at that time. Today's gradients are lower than on prior exam likely due to technically difficult images with limited interrogation in that the LV systolic function appears to be preserved today. Prior LVEF was 67%. QUANTITATIVE DATA SUMMARY: 2D MEASUREMENTS: Normal Ranges: Ao Root d: 3.70 cm (2.0-3.7cm) AORTIC VALVE: Normal Ranges: AoV Vmax: 3.20 m/s (<=1.7m/s) AoV Vmax Post TAVR: 1.31 m/s (<=1.7m/s) AoV Peak P.0 mmHg (<20mmHg) AoV Peak PG Post TAVR: 6.9 mmHg (<20mmHg) AoV Mean P.0 mmHg (1.7-11.5mmHg) AoV Mean PG Post TAVR: 4.0 mmHg (1.7-11.5mmHg) LVOT Max Clyde: 1.02 m/s (<=1.1m/s) LVOT Max Clyde Post TAVR: 0.98 m/s (<=1.1m/s) AoV VTI: 74.20 cm (18-25cm) AoV VTI Post TAVR: 26.80 cm (18-25cm) LVOT VTI: 24.80 cm LVOT VTI Post TAVR: 23.50 cm LVOT Diameter: 2.00 cm (1.8-2.4cm) LVOT Diameter Post TAVR: 2.00 cm (1.8-2.4cm) AoV Area, VTI: 1.05 cm2 (2.5-5.5cm2) AoV Area, VTI Post TAVR: 2.75 cm2 (2.5-5.5cm2) AoV Area,Vmax: 1.00 cm2 (2.5-4.5cm2) AoV Area,Vmax Post TAVR: 2.35 cm2 (2.5-4.5cm2) AoV Dimensionless Index: 0.33 AoV Dimensionless Index Post TAVR: 0.88 [id number] Kenia Yoder MD Electronically signed on 07/14/2025 at 8:12:45 AM Final CONCLUSIONS: 1. Poorly visualized anatomical structures due to suboptimal image quality. 2. The left ventricle was not well visualized. The left ventricular ejection fraction could not be measured. 3. LV appear to have grossly normal systolic function without obvious regional wall motion abnormalities though not well seen. Unable to estimate LVEF. 4. Unable to determine right ventricular systolic function. 5. There is moderate mitral annular calcification. 6. Baseline- AV not well seen though appears to be moderate to severely calcified/thickened with gradients of 41/22mmHg and DI of 0.33 with no AI. The DI is consistent with moderate though gradients are lower than expected for that degree of . Proceeded to TAVR. 7. S/p 34mm Medtronic Evolut TAVR with gradients of 6.9/4mmHg and no obvious AI. 8. Compared with study dated 10/20/2024, [facility], the prior AV gradients were 73/44mmHg with DI of 0.23 which is consistent with severe and there was no AI at that time. Today's gradients are lower than on prior exam likely due to technically difficult images with limited interrogation in that the LV systolic function appears to be preserved today. Prior LVEF was 67%. Lab Review Results for orders placed or performed during the hospital encounter of 07/13/25 (from the past 96 hours) ECG 12 lead Result Value Ref Range Ventricular Rate 74 BPM Atrial Rate 74 BPM TX Interval 200 ms QRS Duration 86 ms QT Interval 366 ms QTC Calculation(Bazett) 406 ms P Goltry 84 degrees R Goltry -3 degrees T Goltry 150 degrees QRS Count 13 beats Q Onset 218 ms P Onset 84 ms P Offset 148 ms T Offset 401 ms QTC Fredericia 392 ms POCT GLUCOSE Result Value Ref Range POCT Glucose 177 (H) 74 - 99 mg/dL Type And Screen Result Value Ref Range ANTIBODY SCREEN NEG Abo/Rh Result Value Ref Range ABO TYPE A Rh TYPE POS ACTIVATED CLOTTING TIME LOW Result Value Ref Range POCT Activated Clotting Time Low Range 240 (H) 89 - 169 sec ACTIVATED CLOTTING TIME LOW Result Value Ref Range POCT Activated Clotting Time Low Range 270 (H) 89 - 169 sec Transthoracic Echo (TTE) Limited Result Value Ref Range AV pk clyde 3.20 m/s AV mn grad 22 mmHg LVOT diam 2.00 cm Aortic Valve Area by Continuity of VTI 1.05 cm2 Aortic Valve Area by Continuity of Peak Velocity 1.00 cm2 AV pk grad 41 mmHg ECG 12 lead daily Result Value Ref Range Ventricular Rate 70 BPM Atrial Rate 70 BPM TX Interval 296 ms QRS Duration 158 ms QT Interval 502 ms QTC Calculation(Bazett) 542 ms P Goltry 96 degrees R Goltry 20 degrees T Goltry 171 degrees QRS Count 12 beats Q Onset 202 ms P Onset 54 ms P Offset 117 ms T Offset 453 ms QTC Fredericia 528 ms Basic metabolic panel Result Value Ref Range Glucose 152 (H) 74 - 99 mg/dL Sodium 139 136 - 145 mmol/L Potassium 3.4 (L) 3.5 - 5.3 mmol/L Chloride 104 98 - 107 mmol/L Bicarbonate 23 21 - 32 mmol/L Anion Gap 15 10 - 20 mmol/L Urea Nitrogen 35 (H) 6 - 23 mg/dL Creatinine 2.27 (H) 0.50 - 1.30 mg/dL eGFR 28 (L) >60 mL/min/1.73m*2 Calcium 9.0 8.6 - 10.6 mg/dL Magnesium Result Value Ref Range Magnesium 2.14 1.60 - 2.40 mg/dL CBC and Auto Differential Result Value Ref Range WBC 10.9 4.4 - 11.3 x10*3/uL nRBC 0.0 0.0 - 0.0 /100 WBCs RBC 3.77 (L) 4.50 - 5.90 x10*6/uL Hemoglobin 11.3 (L) 13.5 - 17.5 g/dL Hematocrit 35.4 (L) 41.0 - 52.0 % MCV 94 80 - 100 fL MCH 30.0 26.0 - 34.0 pg MCHC 31.9 (L) 32.0 - 36.0 g/dL RDW 14.6 (H) 11.5 - 14.5 % Platelets 142 (L) 150 - 450 x10*3/uL Neutrophils % 64.6 40.0 - 80.0 % Immature Granulocytes %, Automated 0.5 0.0 - 0.9 % Lymphocytes % 22.1 13.0 - 44.0 % Monocytes % 7.2 2.0 - 10.0 % Eosinophils % 5.1 0.0 - 6.0 % Basophils % 0.5 0.0 - 2.0 % Neutrophils Absolute 7.05 (H) 1.60 - 5.50 x10*3/uL Immature Granulocytes Absolute, Automated 0.05 0.00 - 0.50 x10*3/uL Lymphocytes Absolute 2.41 0.80 - 3.00 x10*3/uL Monocytes Absolute 0.79 0.05 - 0.80 x10*3/uL Eosinophils Absolute 0.56 (H) 0.00 - 0.40 x10*3/uL Basophils Absolute 0.06 0.00 - 0.10 x10*3/uL Protime-INR Result Value Ref Range Protime 13.6 (H) 9.8 - 12.4 seconds INR 1.2 (H) 0.9 - 1.1 POCT GLUCOSE Result Value Ref Range POCT Glucose 165 (H) 74 - 99 mg/dL CBC and Auto Differential Result Value Ref Range WBC 9.5 4.4 - 11.3 x10*3/uL nRBC 0.0 0.0 - 0.0 /100 WBCs RBC 3.73 (L) 4.50 - 5.90 x10*6/uL Hemoglobin 11.1 (L) 13.5 - 17.5 g/dL Hematocrit 35.3 (L) 41.0 - 52.0 % MCV 95 80 - 100 fL MCH 29.8 26.0 - 34.0 pg MCHC 31.4 (L) 32.0 - 36.0 g/dL RDW 14.6 (H) 11.5 - 14.5 % Platelets 146 (L) 150 - 450 x10*3/uL Neutrophils % 73.4 40.0 - 80.0 % Immature Granulocytes %, Automated 0.5 0.0 - 0.9 % Lymphocytes % 14.7 13.0 - 44.0 % Monocytes % 8.4 2.0 - 10.0 % Eosinophils % 2.4 0.0 - 6.0 % Basophils % 0.6 0.0 - 2.0 % Neutrophils Absolute 7.00 (H) 1.60 - 5.50 x10*3/uL Immature Granulocytes Absolute, Automated 0.05 0.00 - 0.50 x10*3/uL Lymphocytes Absolute 1.40 0.80 - 3.00 x10*3/uL Monocytes Absolute 0.80 0.05 - 0.80 x10*3/uL Eosinophils Absolute 0.23 0.00 - 0.40 x10*3/uL Basophils Absolute 0.06 0.00 - 0.10 x10*3/uL Basic Metabolic Panel Result Value Ref Range Glucose 171 (H) 74 - 99 mg/dL Sodium 138 136 - 145 mmol/L Potassium 3.9 3.5 - 5.3 mmol/L Chloride 103 98 - 107 mmol/L Bicarbonate 24 21 - 32 mmol/L Anion Gap 15 10 - 20 mmol/L Urea Nitrogen 33 (H) 6 - 23 mg/dL Creatinine 2.01 (H) 0.50 - 1.30 mg/dL eGFR 32 (L) >60 mL/min/1.73m*2 Calcium 9.1 8.6 - 10.6 mg/dL Magnesium Result Value Ref Range Magnesium 2.12 1.60 - 2.40 mg/dL Protime-INR Result Value Ref Range Protime 12.7 (H) 9.8 - 12.4 seconds INR 1.1 0.9 - 1.1 ECG 12 lead daily Result Value Ref Range Ventricular Rate 70 BPM Atrial Rate 70 BPM TX Interval 208 ms QRS Duration 148 ms QT Interval 474 ms QTC Calculation(Bazett) 511 ms P Goltry -51 degrees R Goltry 6 degrees T Goltry 162 degrees QRS Count 11 beats Q Onset 204 ms P Onset 84 ms P Offset 148 ms T Offset 441 ms QTC Fredericia 499 ms POCT GLUCOSE Result Value Ref Range POCT Glucose 184 (H) 74 - 99 mg/dL POCT GLUCOSE Result Value Ref Range POCT Glucose 170 (H) 74 - 99 mg/dL Transthoracic Echo (TTE) Limited Result Value Ref Range AV pk clyde 1.95 m/s AV mn grad 9 mmHg LVOT diam 2.00 cm LV EF 62 % Aortic Valve Area by Continuity of VTI 1.77 cm2 Aortic Valve Area by Continuity of Peak Velocity 1.63 cm2 AV pk grad 15 mmHg LV A4C EF 60.7 POCT GLUCOSE Result Value Ref Range POCT Glucose 232 (H) 74 - 99 mg/dL POCT GLUCOSE Result Value Ref Range POCT Glucose 201 (H) 74 - 99 mg/dL CBC and Auto Differential Result Value Ref Range WBC 10.1 4.4 - 11.3 x10*3/uL nRBC 0.0 0.0 - 0.0 /100 WBCs RBC 3.73 (L) 4.50 - 5.90 x10*6/uL Hemoglobin 11.1 (L) 13.5 - 17.5 g/dL Hematocrit 35.9 (L) 41.0 - 52.0 % MCV 96 80 - 100 fL MCH 29.8 26.0 - 34.0 pg MCHC 30.9 (L) 32.0 - 36.0 g/dL RDW 14.6 (H) 11.5 - 14.5 % Platelets 147 (L) 150 - 450 x10*3/uL Neutrophils % 67.5 40.0 - 80.0 % Immature Granulocytes %, Automated 0.3 0.0 - 0.9 % Lymphocytes % 15.7 13.0 - 44.0 % Monocytes % 11.4 2.0 - 10.0 % Eosinophils % 4.5 0.0 - 6.0 % Basophils % 0.6 0.0 - 2.0 % Neutrophils Absolute 6.79 (H) 1.60 - 5.50 x10*3/uL Immature Granulocytes Absolute, Automated 0.03 0.00 - 0.50 x10*3/uL Lymphocytes Absolute 1.58 0.80 - 3.00 x10*3/uL Monocytes Absolute 1.15 (H) 0.05 - 0.80 x10*3/uL Eosinophils Absolute 0.45 (H) 0.00 - 0.40 x10*3/uL Basophils Absolute 0.06 0.00 - 0.10 x10*3/uL Basic Metabolic Panel Result Value Ref Range Glucose 162 (H) 74 - 99 mg/dL Sodium 138 136 - 145 mmol/L Potassium 3.8 3.5 - 5.3 mmol/L Chloride 102 98 - 107 mmol/L Bicarbonate 23 21 - 32 mmol/L Anion Gap 17 10 - 20 mmol/L Urea Nitrogen 37 (H) 6 - 23 mg/dL Creatinine 2.68 (H) 0.50 - 1.30 mg/dL eGFR 23 (L) >60 mL/min/1.73m*2 Calcium 9.1 8.6 - 10.6 mg/dL Magnesium Result Value Ref Range Magnesium 2.11 1.60 - 2.40 mg/dL Protime-INR Result Value Ref Range Protime 12.9 (H) 9.8 - 12.4 seconds INR 1.2 (H) 0.9 - 1.1 Hemoglobin A1c Result Value Ref Range Hemoglobin A1C 7.0 (H) See comment % Estimated Average Glucose 154 Not Established mg/dL Lipid Panel Result Value Ref Range Cholesterol 142 0 - 199 mg/dL HDL-Cholesterol 35.4 mg/dL Cholesterol/HDL Ratio 4.0 LDL Calculated 76 <=99 mg/dL VLDL 31 0 - 40 mg/dL Triglycerides 154 (H) 0 - 149 mg/dL Non HDL Cholesterol 107 0 - 149 mg/dL POCT GLUCOSE Result Value Ref Range POCT Glucose 162 (H) 74 - 99 mg/dL ECG 12 lead daily Result Value Ref Range Ventricular Rate 87 BPM Atrial Rate 79 BPM TX Interval 296 ms QRS Duration 136 ms QT Interval 422 ms QTC Calculation(Bazett) 507 ms P Goltry 97 degrees R Goltry 11 degrees T Goltry 178 degrees QRS Count 14 beats Q Onset 209 ms P Onset 61 ms P Offset 120 ms T Offset 420 ms QTC Fredericia 477 ms POCT GLUCOSE Result Value Ref Range POCT Glucose 220 (H) 74 - 99 mg/dL Magnesium Result Value Ref Range Magnesium 2.17 1.60 - 2.40 mg/dL Protime-INR Result Value Ref Range Protime 12.7 (H) 9.8 - 12.4 seconds INR 1.1 0.9 - 1.1 Basic Metabolic Panel Result Value Ref Range Glucose 241 (H) 74 - 99 mg/dL Sodium 138 136 - 145 mmol/L Potassium 3.8 3.5 - 5.3 mmol/L Chloride 103 98 - 107 mmol/L Bicarbonate 24 21 - 32 mmol/L Anion Gap 15 10 - 20 mmol/L Urea Nitrogen 35 (H) 6 - 23 mg/dL Creatinine 2.77 (H) 0.50 - 1.30 mg/dL eGFR 22 (L) >60 mL/min/1.73m*2 Calcium 9.1 8.6 - 10.6 mg/dL CBC and Auto Differential Result Value Ref Range WBC 9.6 4.4 - 11.3 x10*3/uL nRBC 0.0 0.0 - 0.0 /100 WBCs RBC 3.84 (L) 4.50 - 5.90 x10*6/uL Hemoglobin 11.5 (L) 13.5 - 17.5 g/dL Hematocrit 36.4 (L) 41.0 - 52.0 % MCV 95 80 - 100 fL MCH 29.9 26.0 - 34.0 pg MCHC 31.6 (L) 32.0 - 36.0 g/dL RDW 14.4 11.5 - 14.5 % Platelets 163 150 - 450 x10*3/uL Neutrophils % 71.6 40.0 - 80.0 % Immature Granulocytes %, Automated 0.5 0.0 - 0.9 % Lymphocytes % 13.0 13.0 - 44.0 % Monocytes % 9.7 2.0 - 10.0 % Eosinophils % 4.4 0.0 - 6.0 % Basophils % 0.8 0.0 - 2.0 % Neutrophils Absolute 6.85 (H) 1.60 - 5.50 x10*3/uL Immature Granulocytes Absolute, Automated 0.05 0.00 - 0.50 x10*3/uL Lymphocytes Absolute 1.24 0.80 - 3.00 x10*3/uL Monocytes Absolute 0.93 (H) 0.05 - 0.80 x10*3/uL Eosinophils Absolute 0.42 (H) 0.00 - 0.40 x10*3/uL Basophils Absolute 0.08 0.00 - 0.10 x10*3/uL *Note: Due to a large number of results and/or encounters for the requested time period, some results have not been displayed. A complete set of results can be found in Results Review. Assessment/Plan Kitty Vergara is a 85 y.o. male with a PMH of BPH, GERD, CKD stage 4, DMII hgAIc 6.6, CAD s/p LHC/RHC with PCI- 01/19/25, on Plavix and ASA 81mg, bardycardia, and severe non-rheumatic aortic stenosis. Pt presented on 07/13/2025 for elective TAVR. Kitty Vergara is now s/p TAVR Evolut FX + 34mm via RCFA Femoral with Right Radial (secondary) on 06/[address] Barbosa and Dr. Howell. TVP kept due to widening of QRS following valve deployment and sutured in place). Final procedural ECHO showed AV mean gradient 6, no PVL, no PC effusion. Pt transferred to the LT5 for monitoring overnight. Overnight course complicated by "gibberish" since returning from his TAVR at 7 pm. Brain attack was called given concern for new stroke in the setting of TAVR. Patient went for CT head and CTA head/neck which did not demonstrate any new stroke or any large vessel occlusion. Neuro evaluated the patient as well. Neuro: post TAVR with AMS with slurred speech, not following. This morning, pt followed commands, able to understand what is communicated to him but unable to form a clear conversation. C/o Stroke. BAT called 07/[address] head: No proximal large branch vessel cutoff on CTA of the head. Carodis with Left greater than right with stenosis of the distal left common carotid artery measuring up to approximately 60-65%. Nonspecific white matter changes most likely represent small-vessel ischemic disease in a patient of this age. No evidence of acute cortical infarct, mass effect, or ICH. There are areas of encephalomalacia in the cerebellum which could reflect remote infarcts. MRI head : MRI findings compatible with scattered areas of acute to early subacute infarction within the cerebral hemispheres bilaterally left greater than right as well as within the left cerebellar hemisphere as described above. The dominant area of acute to early subacute infarction is identified within the left temporoparietal region. 07/15/25 POD 2 Patient still with expressive aphasia, has periods of agitation with combativeness. Attempts to reorient to time and place unsuccessful. Upper and lower extremity strengths are intact. Instructed nurse to ensure proper day/night routine and adequate sleep. 07/16/25 POD 3 Patient with continued expressive aphasia with at times garbled or incoherent speech. Continue to reorient to time, place, self. Motor functional bilaterally intact upper and lower extremities. Will likely need intense rehab focusing on speech therapy. GI: Passed swallow evaluation with Speech - Regular diet Post TAVR: - Single antiplatelet for life is recommended post tavr but given with pt h xof PCI 01/19/25 pt will need ASA and Plavix until next year 01/19/26 CAD s/p PCI to prox-mid LAD using [address] Jessie Fay - ASA and Plavix HTN Pt with SBP wolf 140-170 - Amlodipine 2.5 mg PO daily, can increase to 5mg (Home dose 10 mg PO daily) Should discuss with neuro for BP recs Rhytm Pre EKG - SR first degree HR 74 (TX 200, QRS 180) Post EKG - SR, LBBB, First degree HR 70 (TX 298, QRS 158) POD 1 EKG - LBBB, First degree, RRR, HR 70 (TX 208, QRS 148). No events observed on Tele: TVP removed and later RIJ cordis removed without incident. - monitor tele and EKG daily - once ready for discharge, pt likely will need a [employer] monitor at discharge for wide QRSand first degree AV block CBC and BMP reviewed significant for hyperglycemia, CKD acute blood loss anemia which is improving POD 1 ECHO - EF 59%, AV gradients 15.2 mmHg, 9.0 mmHg, no significant PC effusion. Discharge TAVR final recs: - Cont ASA (for life) - follow up with Structural [facility] clinic in 1 month and 1 year - f/w Dr. Jessie Fay (Primary Cards) as scheduled or in 6-10 weeks - f/w Daniel Almanzar MD in 1-2 weeks - pt given Lab recs (1 week) and ECHO rec (1 month) Dispo: likely acute rehab vs snf D/w Dr. Chelsey Dias MSN, [facility]- Structural Heart Program Advanced Interventional Cardiology Pager [phone] Team pager [phone] Images from the original note were not included. HVI Attending Shared Visit Note This is a shared visit. Please see Advanced Practice Provider's encounter note for additional details. Briefly, 85M from [place], [place] with severe s/p TAVR 07/13 complicated by nola-procedural embolic strokes He has a history of HTN, HLD, DM2, CKD4, CAD s/p PCI 01/19/25, severe , gout, OA, obesity, BPH. Admitted 07/13/25 for TAVR. Develop aphasia evening 07/13 post-procedure; BAT called. CT/CTA 07/14 without LVO or ICH. MRI brain showed acute to subacute embolic infarcts L>M hemispheres and left cerebellum consistent with nola-procedural cardioembolism. Has acute agitation (possibly related to urinary retention. Exam: awake, agitated. Trying to get out of bed. Multiple bruises. Not oriented. # Ischemic stroke post-TAVR, embolic pattern MRI 07/14 # Agitation delirium: safety monitoring, psych recs appreciated. # Dysphagia risk. # s/p TAVR Evolut FX+34 mm 07/13/25 with transient conduction changes now LBBB 1deg AVB # CAD s/p PCI 01/19/25 LAD WILLIE x2: DAPT # CKD4 baseline Cr ~2: CTM # Dispo: Not medically ready. Barriers include neuro recovery/agitation. Kapil Garsia MD Assessment & Plan Nonrheumatic aortic (valve) stenosis Objective Admit Date: 07/13/2025 Hospital Length of Stay: 3 Home: [facility] [id number] MEDICATIONS Infusions: Scheduled: amLODIPine, 2.5 mg, Daily aspirin, 81 mg, Daily bumetanide, 0.5 mg, Daily clopidogrel, 75 mg, Daily docusate sodium, 100 mg, BID ezetimibe, 10 mg, Daily gabapentin, 300 mg, BID heparin (porcine), 5,000 Units, q8h insulin glargine, 10 Units, Nightly insulin lispro, 0-10 Units, TID AC pantoprazole, 40 mg, Daily before breakfast Or pantoprazole, 40 mg, Daily before breakfast perflutren lipid microspheres, 0.5-10 mL of dilution, Once in imaging PRN: acetaminophen, 650 mg, q6h PRN Or acetaminophen, 650 mg, q6h PRN Or acetaminophen, 650 mg, q6h PRN benzocaine-menthol, 1 lozenge, q2h PRN dextrose, 12.5 g, q15 min PRN dextrose, 25 g, q15 min PRN diazePAM, 2 mg, q8h PRN glucagon, 1 mg, q15 min PRN glucagon, 1 mg, q15 min PRN lidocaine-epinephrine, 5 mL, Once PRN melatonin, 6 mg, Nightly PRN ondansetron, 4 mg, q8h PRN Or ondansetron, 4 mg, q8h PRN oxygen, , Continuous - O2/gases phenoL, 1 spray, q2 min PRN prochlorperazine, 10 mg, q6h PRN Or prochlorperazine, 10 mg, q6h PRN Or prochlorperazine, 25 mg, q12h PRN traMADol, 50 mg, q6h PRN Prior to Admission Meds: Prescriptions Prior to Admission[1] Vitals: 07/16/2025 8:42 AM 07/16/2025 8:00 AM 07/16/2025 4:00 AM 07/16/2025 12:00 AM 07/15/2025 8:08 PM 07/15/2025 8:00 PM 07/15/2025 4:21 PM Vitals Systolic 164 141 163 Diastolic 83 77 72 BP Location Right arm Right arm Right arm Heart Rate 82 83 87 88 82 83 77 Temp 36.4 C (97.5 F) 36.8 C (98.2 F) 37.3 C (99.1 F) Resp 21 18 28 19 20 25 17 Wt Readings from Last 5 Encounters: 07/15/25 109 kg (239 lb 3.2 oz) 07/01/25 105 kg (232 lb) 04/21/25 104 kg (229 lb) 04/04/25 (P) 105 kg (232 lb) 03/26/25 107 kg (235 lb 14.3 oz) Intake/Output Summary (Last 24 hours) at 07/16/2025 0902 Last data filed at 07/16/2025 0300 Gross per 24 hour Intake 180 ml Output 929 ml Net -749 ml CHEST: Unlabored, Clear, Diminished CV: Heart block NEURO: RASS: Alert and calm CAM: LOC: Alert Cognition: Impulsive GCS: 12 DATA: CMP: Recent Labs 07/15/25 0634 07/14/25 0518 07/13/25 2009 07/09/25 0925 03/09/25 0832 03/05/25 0420 03/04/25 1310 01/12/25 0752 10/20/24 0509 10/18/24 1557 09/26/24 0754 NA 138 138 139 140 139 139 137 140 135* < > 139 K 3.8 3.9 3.4* 4.1 4.4 3.9 4.5 5.0 4.9 < > 3.9 CL 102 103 104 103 105 107 106 106 107 < > 101 CO2 23 24 23 24 24 23 25 24 21 < > 29 ANIONGAP 17 15 15 13 10 13 11 10 12 < > 13 BUN 37* 33* 35* 32* 42* 38* 41* 31* 35* < > 37* CREATININE 2.68* 2.01* 2.27* 2.47* 2.25* 2.26* 2.31* 2.06* 2.29* < > 2.63* EGFR 23* 32* 28* 25* 28* 28* 27* 31* 27* < > 23* MG 2.11 2.12 2.14 -- 2.4 -- 2.00 -- 1.45* -- 1.70 < > = values in this interval not displayed. Recent Labs 03/09/25 0832 03/04/25 1310 10/20/24 0509 10/18/24 1557 09/26/24 0754 09/05/24 0738 05/29/24 1231 05/08/24 0733 02/04/24 0816 ALBUMIN 3.8 3.9 3.2* 3.4 4.1 3.8 4.0 4.1 3.8 ALT 12 12 -- 7* 7* 9* 9* 7* 9* AST 18 18 -- 12 11 12 12 10 11 BILITOT 0.7 0.7 -- 0.5 0.7 0.8 0.7 0.9 0.6 LIPASE -- -- -- 23 -- -- -- -- -- CBC: Recent Labs 07/15/25 0634 07/14/25 0518 07/13/25200807/09/25 0925 03/09/25 0832 03/05/25 0420 03/04/25 1310 01/12/25 0752 WBC 10.1 9.5 10.9 8.9 9.6 7.9 9.8 9.7 HGB 11.1* 11.1* 11.3* 12.7* 11.7* 11.0* 11.3* 11.9* HCT 35.9* 35.3* 35.4* 39.2 36.7* 34.1* 35.1* 37.0* PLT 147* 146* 142* 167 184 160 175 208 MCV 96 95 94 93.3 94.3 92 92 93.0 COAG: Recent Labs 07/15/2563307/14/25 0507/13/25200807/09/25 0925 INR 1.2* 1.1 1.2* 1.1 ABO: Recent Labs 07/13/25 1451 ABO A HEME/ENDO: Recent Labs 07/15/25 0634 03/09/25 0832 03/04/25 1412 10/19/24 0437 09/26/24 0754 09/05/24 0738 05/08/24 0733 FERRITIN -- -- -- 440* -- -- -- IRONSAT -- -- -- 11* -- -- -- TSH -- 3.59 2.51 2.35 5.03* -- -- HGBA1C 7.0* 6.6* -- -- -- 7.2* 7.3* CARDIAC: Recent Labs 03/04/25 1412 03/04/25 1310 10/18/24 1557 05/29/24 1231 03/28/23 1150 03/28/23 1022 TROPHS 11 13 11 10 12 14 BNP -- -- 321* -- -- -- Recent Labs 07/15/25 0634 09/26/24 0754 03/29/22 0754 03/29/20 0837 CHOL 142 139 172 185 LDLF -- -- - - LDLCALC 76 42 -- -- HDL 35.4 37.0 36.0* 32.0* TRIG 154* 299* 529* 607* TOX:No results for input(s): "AMPHETAMINE", "BENZO", "CANNABINOID", "COCAI", "FENTANYL", "OPIATE", "OXYCODONE", "PCP" in the last 74147 hours. No lab exists for component: BARBSCRUR MICRO: Recent Labs 05/23/22 1019 CRP 0.43 No results found for the last 90 days. EKG: Recent Labs 07/15/25204907/14/25 0530 07/13/25 1950 ATRRATE 79 70 70 VENTRATE 87 70 70 PRINT 296 208 296 QRSDUR 136 148 158 QTCFRED 477 499 528 QTCCALCB 507 511 542 Encounter Date: 07/13/25 ECG 12 lead daily Result Value Ventricular Rate 87 Atrial Rate 79 TX Interval 296 QRS Duration 136 QT Interval 422 QTC Calculation(Bazett) 507 P Goltry 97 R Goltry 11 T Goltry 178 QRS Count 14 Q Onset 209 P Onset 61 P Offset 120 T Offset 420 QTC Fredericia 477 Narrative Sinus rhythm with 1st degree AV block with occasional Premature ventricular complexes and Premature atrial complexes Left bundle branch block Abnormal ECG When compared with ECG of 14-JUL-2025 05:26, Sinus rhythm has replaced Ectopic atrial rhythm Echocardiogram: Recent Labs 07/14/25 1518 10/20/24 0719 EF 62 67 LVIDD -- 4.65 RV -- 45.5 TAPSE -- 2.1 Transthoracic Echo (TTE) Complete With Contrast 10/20/2024 [place] [address] [phone], TRANSTHORACIC ECHOCARDIOGRAM REPORT Patient Name: KITTY Casey VERGARA Reading Physician: [id number] Santiago Marquez MD Study Date: 10/20/2024 Ordering Provider: [id number] ZANA MATHEWS MRN/PID: [id number] Fellow: Nurse: Ayaka Hernandez RN Date of /Age: 1007/06/1940 Manager Garden: Mary TOROT, NELLY Gender Assigned at M Additional Staff: : Height: 177.80 cm Admit Date: 10/18/2024 Weight: 104.33 kg Admission Status: Inpatient - Routine BSA / BMI: 2.22 m2 / 33.00 Department Location: [address] kg/m2 Blood Pressure: 160 /86 mmHg Study Type: TRANSTHORACIC ECHO (TTE) COMPLETE Diagnosis/ICD: Bradycardia, unspecified-R00.1; Unspecified atrial fibrillation-I48.91 Indication: Francisco,AFib CPT Codes: Echo Complete w Full Doppler-[id number] Patient History: Pertinent History: Previous echo 03-28-23. Study Detail: The following Echo studies were performed: 2D, M-Mode, Doppler and color flow. Definity used as a contrast agent for endocardial border definition. A bubble study was not performed. The patient was awake. PHYSICIAN INTERPRETATION: Left Ventricle: Left ventricular ejection fraction is normal, calculated by Villalobos's biplane at 67%. The patient is in atrial fibrillation which may influence the estimate of left ventricular function and transvalvular flows. There are no regional wall motion abnormalities. The left ventricular cavity size is normal. There is mild increased septal and mildly increased posterior left ventricular wall thickness. There is left ventricular concentric remodeling. Spectral Doppler shows a Grade II (pseudonormal pattern) of left ventricular diastolic filling with an elevated left atrial pressure. Left Atrium: The left atrium is normal in size. A bubble study using agitated saline was not performed. Right Ventricle: The right ventricle is normal in size. There is normal right ventricular global systolic function. Right Atrium: The right atrium is normal in size. Aortic Valve: The aortic valve is trileaflet. There is evidence of moderate to severe aortic valve stenosis. The aortic valve dimensionless index is 0.23. There is no evidence of aortic valve regurgitation. The peak instantaneous gradient of the aortic valve is 73 mmHg. The mean gradient of the aortic valve is 44 mmHg. Mitral Valve: The mitral valve is normal in structure. There is mild mitral valve regurgitation. Tricuspid Valve: The tricuspid valve is structurally normal. There is trace tricuspid regurgitation. Pulmonic Valve: The pulmonic valve is not well visualized. There is no indication of pulmonic valve regurgitation. Pericardium: No pericardial effusion noted. Aorta: The aortic root is normal. CONCLUSIONS: 1. Poorly visualized anatomical structures due to suboptimal image quality. 2. Left ventricular ejection fraction is normal, calculated by Villalobos's biplane at 67%. 3. Spectral Doppler shows a Grade II (pseudonormal pattern) of left ventricular diastolic filling with an elevated left atrial pressure. 4. There is normal right ventricular global systolic function. 5. Moderate to severe aortic valve stenosis. 6. Compared to prior TTE dated 03/28/2023 - aortic stenosis has progressed and now appears to be moderate-severe. 7. The patient is in atrial fibrillation which may influence the estimate of left ventricular function and transvalvular flows. QUANTITATIVE DATA SUMMARY: 2D MEASUREMENTS: Normal Ranges: Ao Root d: 3.10 cm (2.0-3.7cm) LAs: 3.70 cm (2.7-4.0cm) IVSd: 1.35 cm (0.6-1.1cm) LVPWd: 1.38 cm (0.6-1.1cm) LVIDd: 4.65 cm (3.9-5.9cm) LVIDs: 3.06 cm LV Mass Index: 113.5 g/m2 LV % FS 34.2 % LA VOLUME: Normal Ranges: LA Vol A4C: 31.2 ml (22+/-6mL/m2) LA Vol A2C: 54.6 ml LA Vol BP: 43.6 ml LA Vol Index A4C: 14.1ml/m2 LA Vol Index A2C: 24.7 ml/m2 LA Vol Index BP: 19.7 ml/m2 LA Area A4C: 14.7 cm2 LA Area A2C: 18.4 cm2 LA Major Goltry A4C: 5.9 cm LA Major Goltry A2C: 5.3 cm LA Volume Index: 24.0 ml/m2 LA Vol A4C: 31.4 ml LA Vol A2C: 53.3 ml LA Vol Index BSA: 19.1 ml/m2 M-MODE MEASUREMENTS: Normal Ranges: AoV Exc: 0.90 cm (1.5-2.5cm) AORTA MEASUREMENTS: Normal Ranges: AoV Exc: 0.90 cm (1.5-2.5cm) LV SYSTOLIC FUNCTION BY 2D PLANIMETRY (MOD): Normal Ranges: EF-A4C View: 63 % (>=55%) EF-A2C View: 71 % EF-Biplane: 67 % LV EF Reported: 67 % LV DIASTOLIC FUNCTION: Normal Ranges: MV Peak E: 1.26 m/s (0.7-1.2 m/s) MV Peak A: 1.18 m/s (0.42-0.7 m/s) E/A Ratio: 1.07 (1.0-2.2) MV e' 0.089 m/s (>8.0) MV lateral e' 0.07 m/s MV medial e' 0.11 m/s E/e' Ratio: 14.21 (<8.0) MITRAL VALVE: Normal Ranges: MV DT: 289 msec (150-240msec) MITRAL INSUFFICIENCY: Normal Ranges: MR Vmax: 351.00 cm/s AORTIC VALVE: Normal Ranges: AoV Vmax: 4.26 m/s (<=1.7m/s) AoV Peak P.6 mmHg (<20mmHg) AoV Mean P.0 mmHg (1.7-11.5mmHg) LVOT Max Clyde: 1.10 m/s (<=1.1m/s) AoV VTI: 104.00 cm (18-25cm) LVOT VTI: 23.70 cm LVOT Diameter: 2.20 cm (1.8-2.4cm) AoV Area, VTI: 0.87 cm2 (2.5-5.5cm2) AoV Area,Vmax: 0.98 cm2 (2.5-4.5cm2) AoV Dimensionless Index: 0.23 RIGHT VENTRICLE: RV Basal 3.65 cm RV Mid 2.11 cm RV Major 6.9 cm TAPSE: 20.9 mm TRICUSPID VALVE/RVSP: Normal Ranges: Peak TR Velocity: 3.26 m/s RV Syst Pressure: 46 mmHg (< 30mmHg) PULMONIC VALVE: Normal Ranges: PV Accel Time: 106 msec (>120ms) PV Max Clyde: 2.3 m/s (0.6-0.9m/s) PV Max P.3 mmHg [id number] Santiago Marquez MD Electronically signed on 10/20/2024 at 9:11:55 AM Final Coronary Angiography: TAVR (Transcatheter AV Replacement), TAVR (Transcatheter AV Replacement) 07/13/2025 [facility], Yield Improvement Engineer, [address] [place] [address] Cardiovascular Catheterization Report Patient Name: KITTY VERGARA Performing Physician: Artem Barbosa MD Study Date: 07/13/2025 Verifying Physician: Artem Barbosa MD MRN/PID: [id number] Qa Specialist/Co-Scrub: Ordering Provider: [id number] BARBOSA Date of 1940 Qa Specialist: /Age: years Gender: M Fellow: [id number] Camila Salinas MD Surgeon: Omar Howell MD Study: GURJIT - Transcatheter Aortic Valve Implantation Indications: Severe aortic stenosis. Informed Consent: Benefits, risks, and alternatives discussed with patient or authorized national sales representative and consent was obtained. Transcatheter Aortic Valve Replacement (TAVR): The right femoral artery was accessed using the transfemoral method. A 6 Fr sheath was inserted followed by the deployment of 2 Proglides. 18 F Sentrant. The left femoral artery was accessed percutaneously and a 6 Gabonese contralateral sheath was placed. A 6 Gabonese temporary pacemaker was inserted through the right jugular vein and advanced to the right ventricular apex. Adequate pacing thresholds were obtained. After crossing the stenotic aortic valve, balloon aortic valvuloplasty was performed with True Dilation 23. Evolut FX+ 34 valve was successfully deployed under rapid ventricular pacing at 160 BPM. Transthoracic echo performed post valve deployment revealed no mitral insufficiency and no central aortic insufficiency and trace/trivial paravalvular aortic insufficiency. No device related events. No bleeding events occurred during the procedure. No vascular access complications were revealed. Access site was closed using 2 ProGlide devices. Hemostasis was achieved in the left femoral artery using a ProGlide device. Temporary pacing wire was sutured in place. Hemo Personnel: + +---------+ Name Duty + +---------+ Dorothy Barbosa MD, MD 1 + +---------+ Fluoroscopy Time: + +- ------+ Bedside Procedure Fluoro Dose: n/a mGy + +- ------+ Hemodynamic Pressures: +----+ + + + +---- ---+---------+ Site Date Time Phase Name Systolic mmHg Diastolic mmHg ED mmHg Mean mmHg +----+ + + + +---- ---+---------+ AO 07/13/2025 Rest 198 75 125 6:13:05 PM +----+ + + + +---- ---+---------+ AO 07/13/2025 Rest 184 84 116 6:28:09 PM +----+ + + + +---- ---+---------+ LV 07/13/2025 Rest 227 1 20 6:28:09 PM +----+ + + + +---- ---+---------+ AO 07/13/2025 Rest 191 72 112 6:28:17 PM +----+ + + + +---- ---+---------+ LV 07/13/2025 Rest 225 1 26 6:28:17 PM +----+ + + + +---- ---+---------+ Complications: No vascular access complications were revealed. No bleeding events occurred during the procedure. No device related events. Cardiac Cath Post Procedure Notes: Post Procedure Diagnosis: Successful GURJIT. Blood Loss: Estimated blood loss during the procedure was 10 mls. Specimens Removed: Number of specimen(s) removed: none. CONCLUSIONS: 1. Successful GURJIT using a Evolut FX+ 34. 2. ASA indefinately. 3. Patient was enrolled in a research study and data was included in the TVT Registry. ICD 10 Codes: Nonrheumatic aortic (valve) stenosis-I35.0 CPT Codes: GURJIT Perc,femoral-46897.62 [id number] Dorothy Barbosa MD Performing Physician Final Impression CONCLUSIONS: 1. Successful GURJIT using a Evolut FX+ 34. 2. ASA indefinately. 3. Patient was enrolled in a research study and data was included in the TVT Registry. Right Heart Cath: No results found for this or any previous visit from the past 1800 days. Cardiac Scoring: No results found for this or any previous visit from the past 1800 days. Cardiac MRI: No results found for this or any previous visit from the past 1800 days. Nuclear:No results found for this or any previous visit from the past 1800 days. Metabolic Stress: No results found for this or any previous visit from the past 1800 days. Imaging Cardiac Catheterization Procedure Result Date: 07/15/2025 CONCLUSIONS: 1. Successful GURJIT using a Evolut FX+ 34. 2. ASA indefinately. 3. Patient was enrolled in a research study and data was included in the TVT Registry. XR chest 1 view Result Date: 07/15/2025 1. Mild pulmonary vascular congestion compared to the previous study. Signed by: Darinel Zee 07/15/2025 8:41 AM Dictation workstation: [id number] MR brain wo IV contrast Result Date: 07/15/2025 There are MRI findings compatible with scattered areas of acute to early subacute infarction within the cerebral hemispheres bilaterally left greater than right as well as within the left cerebellar hemisphere as described above. The dominant area of acute to early subacute infarction is identified within the left temporoparietal region. The above findings are superimposed upon moderate brain parenchymal volume loss. There are scattered as well as more patchy and confluent nonspecific white matter changes again noted within cerebral hemispheres bilaterally as well as ill-defined increased signal on the FLAIR and T2 images overlying the brainstem which while nonspecific, given the patient's age, likely represent sequelae of more remote small-vessel ischemic change. Additional small foci of bright signal on the T2 images are identified within the subinsular regions, basal ganglia, and thalami bilaterally suggesting incidental mildly prominent perivascular spaces and/or scattered more remote lacunar infarctions. Scattered areas of encephalomalacia are identified within the cerebellum as well as along the posterior right occipital lobe. MACRO: Critical Finding: See findings. Notification was initiated on 07/15/2025 at 6:48 am by Matilde Melvin. (-OCF-) Instructions: See Findings. Signed by: Matilde Melvin 07/15/2025 6:48 AM Dictation workstation: [id number] Transthoracic Echo (TTE) Limited Result Date: 07/14/2025 CONCLUSIONS: 1. Poorly visualized anatomical structures due to suboptimal image quality. 2. Left ventricular ejection fraction is normal calculated by Villalobos's biplane at 62%. 3. Echo findings are consistent with normal aortic valve prosthesis structure and function. 4. Unable to determine right ventricular systolic function. 5. No regional left ventricular wall motion abnormalities. 6. Compared with study dated 07/13/2025, the patient is now s/p 34 mm Evolut Fx+ TAVR with reduction in aortic gradients. Transthoracic Echo (TTE) Limited Result Date: 07/14/2025 CONCLUSIONS: 1. Poorly visualized anatomical structures due to suboptimal image quality. 2. The left ventricle was not well visualized. The left ventricular ejection fraction could not be measured. 3. LV appear to have grossly normal systolic function without obvious regional wall motion abnormalities though not well seen. Unable to estimate LVEF. 4. Unable to determine right ventricular systolic function. 5. There is moderate mitral annular calcification. 6. Baseline- AV not well seen though appears to be moderate to severely calcified/thickened with gradients of 41/22mmHg and DI of 0.33 with no AI. The DI is consistent with moderate though gradients are lower than expected for that degree of . Proceeded to TAVR. 7. S/p 34mm Medtronic Evolut TAVR with gradients of 6.9/4mmHg and no obvious AI. 8. Compared with study dated 10/20/2024, [facility], the prior AV gradients were 73/44mmHg with DI of 0.23 which is consistent with severe and there was no AI at that time. Today's gradients are lower than on prior exam likely due to technically difficult images with limited interrogation in that the LV systolic function appears to be preserved today. Prior LVEF was 67%. CT brain attack head wo IV contrast Result Date: 07/14/2025 1. No proximal large branch vessel cutoff on CTA of the head. 2. Atherosclerotic changes most significantly involving the common carotid arteries, left greater than right with stenosis of the distal left common carotid artery measuring up to approximately 60-65% relative to the caliber of the vessel more proximally. There is also luminal irregularity at least mild narrowing of the distal V2/V3 segment of the left vertebral artery. 3. Nonspecific white matter changes most likely represent small-vessel ischemic disease in a patient of this age. No definitive evidence of acute cortical infarct, mass effect, or acute intracranial hemorrhage. There are areas of encephalomalacia in the cerebellum which could reflect remote infarcts. MRI with diffusion-weighted imaging would be a more sensitive means of assessing for acute ischemic injury. 4. Diffuse parenchymal volume loss. 5. Enlarged and heterogenous appearance of the right thyroid lobe with a focal lesion measuring up to 3.5 cm. Recommend correlation with non-emergent thyroid ultrasound. 6. Additional findings as above. I personally reviewed the images/study and I agree with the findings as stated by Jeff Butler DO PGY-3. MACRO: Jeff Butler discussed the significance and urgency of this critical finding in person with neurology on 07/14/2025 at 2:30 a.m.. (-RCF-) Findings: See findings. Incidental Finding: There are few small hypoattenuating nodules measuring equal to or greater than 1.5 cm in the thyroid gland. (-YCF-) Instructions: Further evaluation with nonemergent thyroid ultrasound. (Managing Incidental Thyroid Nodules Detected on Imaging: White Paper of the ACR Incidental Thyroid Findings Committee. Mariela Sutton et al. Journal of the [place] [employer],Volume 12, Issue 2, 143 - 150.) [email or web address] Signed by: Angela Doyle 07/14/2025 6:06 AM Dictation workstation: [id number] CT brain attack angio head and neck W and WO IV contrast Result Date: 07/14/2025 1. No proximal large branch vessel cutoff on CTA of the head. 2. Atherosclerotic changes most significantly involving the common carotid arteries, left greater than right with stenosis of the distal left common carotid artery measuring up to approximately 60-65% relative to the caliber of the vessel more proximally. There is also luminal irregularity at least mild narrowing of the distal V2/V3 segment of the left vertebral artery. 3. Nonspecific white matter changes most likely represent small-vessel ischemic disease in a patient of this age. No definitive evidence of acute cortical infarct, mass effect, or acute intracranial hemorrhage. There are areas of encephalomalacia in the cerebellum which could reflect remote infarcts. MRI with diffusion-weighted imaging would be a more sensitive means of assessing for acute ischemic injury. 4. Diffuse parenchymal volume loss. 5. Enlarged and heterogenous appearance of the right thyroid lobe with a focal lesion measuring up to 3.5 cm. Recommend correlation with non-emergent thyroid ultrasound. 6. Additional findings as above. I personally reviewed the images/study and I agree with the findings as stated by Jeff Butler DO PGY-3. MACRO: Jeff Butler discussed the significance and urgency of this critical finding in person with neurology on 07/14/2025 at 2:30 a.m.. (-RCF-) Findings: See findings. Incidental Finding: There are few small hypoattenuating nodules measuring equal to or greater than 1.5 cm in the thyroid gland. (-YCF-) Instructions: Further evaluation with nonemergent thyroid ultrasound. (Managing Incidental Thyroid Nodules Detected on Imaging: White Paper of the ACR Incidental Thyroid Findings Committee. Mariela Sutton et al. Journal of the [place] [employer],Volume 12, Issue 2, 143 - 150.) [email or web address].[email or web address] Signed by: Angela Doyle 07/14/2025 6:06 AM Dictation workstation: [id number] Cardiology, Vascular, and Other Imaging ECG 12 lead daily Result Date: 07/16/2025 Sinus rhythm with 1st degree AV block with occasional Premature ventricular complexes and Premature atrial complexes Left bundle branch block Abnormal ECG When compared with ECG of 14-JUL-2025 05:26, Sinus rhythm has replaced Ectopic atrial rhythm Cardiac Catheterization Procedure Result Date: 07/15/2025 [facility], Yield Improvement Engineer, [address] [place] [address] Cardiovascular Catheterization Report Patient Name: KITTY VERGARA Performing Physician: [id number] Barbosa MD Study Date: 07/13/2025 Verifying Physician: Artem Barbosa MD MRN/PID: [id number] Qa Specialist/Co-Scrub: Ordering Provider: [id number] BARBOSA Date of 1940 Qa Specialist: /Age: years Gender: M Fellow: [id number] Camila Salinas MD Surgeon: Omar Howell MD Study: GURJIT - Transcatheter Aortic Valve Implantation Indications: Severe aortic stenosis. Informed Consent: Benefits, risks, and alternatives discussed with patient or authorized national sales representative and consent was obtained. Transcatheter Aortic Valve Replacement (TAVR): The right femoral artery was accessed using the transfemoral method. A 6 Fr sheath was inserted followed by the deployment of 2 Proglides. 18 F Sentrant. The left femoral artery was accessed percutaneously and a 6 Gabonese contralateral sheath was placed. A 6 Gabonese temporary pacemaker was inserted through the right jugular vein and advanced to the right ventricular apex. Adequate pacing thresholds were obtained. After crossing the stenotic aortic valve, balloon aortic valvuloplasty was performed with True Dilation 23. Evolut FX+ 34 valve was successfully deployed under rapid ventricular pacing at 160 BPM. Transthoracic echo performed post valve deployment revealed no mitral insufficiency and no central aortic insufficiency and trace/trivial paravalvular aortic insufficiency. No device related events. No bleeding events occurred during the procedure. No vascular access complications were revealed. Access site was closed using 2 ProGlide devices. Hemostasis was achieved in the left femoral artery using a ProGlide device. Temporary pacing wire was sutured in place. Hemo Personnel: + +---------+ Name Duty + +---------+ Dorothy Barbosa MD, MD 1 + +---------+ Fluoroscopy Time: + +- ------+ Bedside Procedure Fluoro Dose: n/a mGy + +- ------+ Hemodynamic Pressures: +----+ + + + +---- ---+---------+ Site Date Time Phase Name Systolic mmHg Diastolic mmHg ED mmHg Mean mmHg +----+ + + + +---- ---+---------+ AO 07/13/2025 Rest 198 75 125 6:13:05 PM +----+ + + + +---- ---+---------+ AO 07/13/2025 Rest 184 84 116 6:28:09 PM +----+ + + + +---- ---+---------+ LV 07/13/2025 Rest 227 1 20 6:28:09 PM +----+ + + + +---- ---+---------+ AO 07/13/2025 Rest 191 72 112 6:28:17 PM +----+ + + + +---- ---+---------+ LV 07/13/2025 Rest 225 1 26 6:28:17 PM +----+ + + + +---- ---+---------+ Complications: No vascular access complications were revealed. No bleeding events occurred during the procedure. No device related events. Cardiac Cath Post Procedure Notes: Post Procedure Diagnosis: Successful GURJIT. Blood Loss: Estimated blood loss during the procedure was 10 mls. Specimens Removed: Number of specimen(s) removed: none. CONCLUSIONS: 1. Successful GURJIT using a Evolut FX+ 34. 2. ASA indefinately. 3. Patient was enrolled in a research study and data was included in the TVT Registry. ICD 10 Codes: Nonrheumatic aortic (valve) stenosis-I35.0 CPT Codes: GURJIT Perc,femoral-46176.62 [id number] oDrothy Barbosa MD Performing Physician Final CONCLUSIONS: 1. Successful GURJIT using a Evolut FX+ 34. 2. ASA indefinately. 3. Patient was enrolled in a research study and data was included in the TVT Registry. Transthoracic Echo (TTE) Limited Result Date: 07/14/2025 [facility], [address] [place] [address] and TRANSTHORACIC ECHOCARDIOGRAM REPORT Patient Name: KITTY VERGARA Reading Physician: [id number] Marshall Avilez MD Study Date: 07/14/2025 Ordering Provider: [id number] JOSEF DIAS MRN/PID: [id number] Fellow: Nurse: Date of /Age: 1007/06/1940 Manager Garden: Fer galeano CAMILO Gender assigned at M Additional Staff: : Height: 175.00 cm Admit Date: 07/13/2025 Weight: 103.00 kg Admission Status: Inpatient - Routine BSA / BMI: 2.18 m2 / 33.63 kg/m2 Blood Pressure: 164/71 mmHg Department Location: [place] [address] Study Type: TRANSTHORACIC ECHO (TTE) LIMITED Diagnosis/ICD: Encounter for other specified special examinations-Z01.89 Indication: S/P TAVR (transcatheter aortic valve replacement); CPT Code: Echo Limited-16512; Doppler Limited-06150; Color Doppler-21755 Patient History: Pertinent History: HTN, Hyperlipidemia, CAD and LE Edema. Bradycardia, GERD, CKD IV, Cardiac Stent. S/p TAVR-34mm Medtronic Evolut. Study Detail: The following Echo studies were performed: 2D, M-Mode, Doppler and color flow. Technically challenging study due to body habitus and patient lying in supine position. Unable to obtain subcostal view. PHYSICIAN INTERPRETATION: Left Ventricle: Left ventricular ejection fraction is normal calculated by Villalobos's biplane at 62%. There are no regional left ventricular wall motion abnormalities. The left ventricular cavity size is normal. Left ventricular diastolic filling was not assessed. Left Atrium: The left atrial size is normal. Right Ventricle: The right ventricle was not well visualized. Unable to determine right ventricular systolic function. Right Atrium: The right atrial size was not well visualized. Aortic Valve: There is a prosthetic aortic valve present. The aortic valve area by VTI is 1.77 cm with a peak velocity of 1.95 m/s. The peak and mean gradients are 15 mmHg and 9 mmHg, respectively with a dimensionless index of 0.56. Echo findings are consistent with normal aortic valve prosthesis structure and function. There is no evidence of aortic valve regurgitation. The patient is s/p 34 mm Evolut Fx+. Mitral Valve: The mitral valve is mildly thickened. There is trace mitral valve regurgitation. Tricuspid Valve: The tricuspid valve was not well visualized. Tricuspid regurgitation was not assessed. The right ventricular systolic pressure could not be estimated. Pulmonic Valve: The pulmonic valve is not well visualized. The pulmonic valve regurgitation was not well visualized. Pericardium: There is no pericardial effusion noted. There is a pericardial fat pad present. Aorta: The aortic root was not well visualized. The ascending aorta was not well visualized. Systemic Veins: The inferior vena cava was not well visualized, IVC inspiratory collapse is not well visualized. In comparison to the previous echocardiogram(s): Compared with study dated 07/13/2025, the patient is now s/p 34 mm Evolut Fx+ TAVR with reduction in aortic gradients. CONCLUSIONS: 1. Poorly visualized anatomical structures due to suboptimal image quality. 2. Left ventricular ejection fraction is normal calculated by Villalobos's biplane at 62%. 3. Echo findings are consistent with normal aortic valve prosthesis structure and function. 4. Unable to determine right ventricular systolic function. 5. No regional left ventricular wall motion abnormalities. 6. Compared with study dated 07/13/2025, the patient is now s/p 34 mm Evolut Fx+ TAVR with reduction in aortic gradients. QUANTITATIVE DATA SUMMARY: 2D MEASUREMENTS: Normal Ranges: LVEDV Index: 52 ml/m2 LV SYSTOLIC FUNCTION: Normal Ranges: EF-A4C View: 61 % (>=55%) EF-A2C View: 60 % EF-Biplane: 62 % LV EF Reported: 62 % AORTIC VALVE: Normal Ranges: AoV Vmax: 1.95 m/s (<=1.7m/s) AoV Peak P.2 mmHg (<20mmHg) AoV Mean P.0 mmHg (1.7-11.5mmHg) LVOT Max Clyde: 1.01 m/s (<=1.1m/s) AoV VTI: 39.30 cm (18-25cm) LVOT VTI: 22.20 cm LVOT Diameter: 2.00 cm (1.8-2.4cm) AoV Area, VTI: 1.77 cm2 (2.5-5.5cm2) AoV Area,Vmax: 1.63 cm2 (2.5-4.5cm2) AoV Dimensionless Index: 0.56 TRICUSPID VALVE/RVSP: Normal Ranges: Est. RA Pressure: 3 [id number] Marshall Avilez MD Electronically signed on 07/14/2025 at 10:27:47 PM Final CONCLUSIONS: 1. Poorly visualized anatomical structures due to suboptimal image quality. 2. Left ventricular ejection fraction is normal calculated by Villalobos's biplane at 62%. 3. Echo findings are consistent with normal aortic valve prosthesis structure and function. 4. Unable to determine right ventricular systolic function. 5. No regional left ventricular wall motion abnormalities. 6. Compared with study dated 07/13/2025, the patient is now s/p 34 mm Evolut Fx+ TAVR with reduction in aortic gradients. ECG 12 lead Result Date: 07/14/2025 Sinus rhythm with frequent Premature ventricular complexes Left ventricular hypertrophy with repolarization abnormality Abnormal ECG When compared with ECG of 05-MAR-2025 11:45, Premature ventricular complexes are now Present TX interval has decreased T wave inversion now evident in Inferior leads T wave inversion now evident in Anterolateral leads QT has shortened Confirmed by Felix Hernandez ([id number]) on 07/14/2025 9:40:02 AM ECG 12 lead daily Result Date: 07/14/2025 Unusual P axis, possible ectopic atrial rhythm with occasional Premature ventricular complexes Left bundle branch block Abnormal ECG When compared with ECG of 13-JUL-2025 19:48, Ectopic atrial rhythm has replaced Sinus rhythm Transthoracic Echo (TTE) Limited Result Date: 07/14/2025 TRANSTHORACIC ECHOCARDIOGRAM REPORT Patient Name: KITTY VERGARA Reading Physician: [id number] Kenia Yoder MD Study Date: 07/13/2025 Ordering Provider: [id number] JOSEF DIAS MRN/PID: [id number] Fellow: Nurse: Date of /Age: 1007/06/1940 / 85 Manager Garden: Vinicio galeano [facility] Gender assigned at M Additional Staff: : Height: 177.80 cm Admit Date: Weight: 105.24 kg Admission Status: Inpatient - Routine BSA / BMI: 2.22 m2 / 33.29 kg/m2 Blood Pressure: 130/62 mmHg Department 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 Diabetes: Yes Pertinent History: HTN, Hyperlipidemia, CAD and LE Edema. Bradycardia, GERD, CKD IV, Cardiac Stent. Study Detail: The following Echo studies were performed: 2D, M-Mode, Doppler and color flow. Technically challenging study due to patient lying in supine position. PHYSICIAN INTERPRETATION: Left Ventricle: The left ventricle was not well visualized. The left ventricular ejection fraction could not be measured. The left ventricular cavity size was not assessed. Left ventricular diastolic filling was not assessed. LV appear to have grossly normal systolic function without obvious regional wall motion abnormalities though not well seen. Unable to estimate LVEF. Left Atrium: The left atrial size was not assessed. Right Ventricle: The right ventricle was not well visualized. Unable to determine right ventricular systolic function. Right Atrium: The right atrial size was not well visualized. Aortic Valve: The aortic valve was not well visualized. The aortic valve area by VTI is 1.05 cm with a peak velocity of 3.20 m/s. The peak and mean gradients are 41 mmHg and 22 mmHg, respectively with a dimensionless index of 0.33. There is moderate to severe aortic valve cusp calcification. There is no evidence of aortic valve regurgitation. Baseline- AV not well seen though appears to be moderate to severely calcified/thickened with gradients of 41/22mmHg and DI of 0.33 with no AI. The DI is consistent with moderate though gradients are lower than expected for that degree of . Proceeded to TAVR. Mitral Valve: The mitral valve is normal in structure. There is moderate mitral annular calcification. There is trace mitral valve regurgitation. Tricuspid Valve: The tricuspid valve was not well visualized. Tricuspid regurgitation was not assessed. Pulmonic Valve: The pulmonic valve is not well visualized. Pulmonic valve regurgitation was not assessed. Pericardium: Pericardial effusion was not well visualized. Aorta: The aortic root is abnormal. There is mild dilatation of the aortic root. Systemic Veins: The inferior vena cava was not assessed, IVC inspiratory collapse was not assessed. In comparison to the previous echocardiogram(s): Compared with study dated 10/20/2024, [facility], the prior AV gradients were 73/44mmHg with DI of 0.23 which is consistent with severe and there was no AI at that time. Today's gradients are lower than on prior exam likely due to technically difficult images with limited interrogation in that the LV systolic function appears to be preserved today. Prior LVEF was 67%. Post Transcatheter Aortic Valve Placement (TAVR): The peak instantaneous gradient of the aortic valve is 6.9 mmHg. The mean gradient of the aortic valve is 4.0 mmHg. There is no prosthetic aortic valve regurgitation. There is no nola-prosthetic aortic valve regurgitation. CONCLUSIONS: 1. Poorly visualized anatomical structures due to suboptimal image quality. 2. The left ventricle was not well visualized. The left ventricular ejection fraction could not be measured. 3. LV appear to have grossly normal systolic function without obvious regional wall motion abnormalities though not well seen. Unable to estimate LVEF. 4. Unable to determine right ventricular systolic function. 5. There is moderate mitral annular calcification. 6. Baseline- AV not well seen though appears to be moderate to severely calcified/thickened with gradients of 41/22mmHg and DI of 0.33 with no AI. The DI is consistent with moderate though gradients are lower than expected for that degree of . Proceeded to TAVR. 7. S/p 34mm Medtronic Evolut TAVR with gradients of 6.9/4mmHg and no obvious AI. 8. Compared with study dated 10/20/2024, [facility], the prior AV gradients were 73/44mmHg with DI of 0.23 which is consistent with severe and there was no AI at that time. Today's gradients are lower than on prior exam likely due to technically difficult [facility] Work Phone: 07-21-2025 Consult note Associated Order (s): WOUND OSTOMY NURSING CONSULT Images from the original note were not included. Wound Care Consult Visit Date: 07/21/2025 Patient Name: Kitty Allen Reason for Consult: right elbow skin tear Assessment: Pt with shallow skin tear to right elbow. No slough or eschar. Recommend cleaning with Vashe and applying Xeroform, cover with foam dressing. Wound Plan: Right elbow: cleanse with Vashe and gauze, cut Xeroform to size of wound, cover with foam. Change daily. Primary team please see pended orders for recommendations. Sign off. Please reconsult WOD team for new skin injury. Jeri Brooks RN 07/21/2025 5:39 PM Associated Order(s): IP CONSULT TO PHYSICAL MEDICINE REHAB PM&R Consult Note Patient: Kitty Vergara Age/sex: 85 y.o. Consult requested by: Dr. Garsia Chief complaint: CVA after TAVR PM&R was consulted for IRF appropriateness. HPI: Kitty Vergara is a 85 y.o. year old male patient with PMH of BPH, GERD, CKD stage 4, DMII hgAIc 6.6, CAD s/p LHC/RHC with PCI- 01/19/25, on Plavix and ASA 81mg, bardycardia, and severe non-rheumatic aortic stenosis. Pt presented on 07/13/2025 for elective TAVR. Overnight on 07/14/25 BAT called for abnormal speech and AMS concerning for stroke. MRI showed scattered areas of acute to early subacute infarction within the cerebral hemispheres bilaterally left greater than right as well as within the left cerebellar hemisphere Transferred to I service for management. Became agitated 07/15 requiring haldol, psych consulted 07/16 rec olanzapine 2.5mg PO at bedtime and 2.5mg PO or IM BIDprn agitation. Patient agreeable to working with therapy on 07/17. Notes from Kayla Mary 07/17, Lux Ridley 07/17 personally reviewed. A complete patient history was ascertained by a combination of patient and family present. Discussed with spouse that patient may need 24/7 care upon discharge and she states that they would be unable to provide that. Procedures performed on/related to this admission: 07/14 TAVR Home Situation/ Supports Lives in: condo Stairs to enter: 0 Stairs in home: 0 Bed level: main Bathroom level: main Lives with: spouse Who can help at home and how often: spouse, family, not 24/7 care Prior Level of Function Mobility: modified Independent ADLs: Independent, Huber homemaking Assistive Devices: cane or walker Physical Therapy Last seen: 07/17 Bed mobility: Hub[place] - MaxA x2 Transfers: Huber Ambulation: Huber ~3' laterally L/R without device Occupational Therapy Last seen: 07/17 [facility] Daily Activity Putting on and taking off regular lower body clothing: A lot Bathing (including washing, rinsing, drying): A lot Putting on and taking off regular upper body clothing: A little Toileting, which includes using toilet, bedpan or urinal: Total Taking care of personal grooming such as brushing teeth: A lot. Eating Meals: A lot Bed mobility: Min-MaxAx2 Transfers: Hub[place] x2 Ambulation: Huber x2 - x4 steps to R, x2 steps to left, x2 steps forward and back . Speech Therapy Last seen: 07/16 Evaluation: Patient demonstrates severe expressive/receptive deficits impacting word-finding, expressing wants/needs, comprehension of single step commands, and auditory processing. Speech is characterized as fluent with limited verbal output. Present semantic paraphasias. The Quick Aphasia Battery was attempted but discontinued 2/2 pt ability and agitation. Informal assessment of language abilities were obtained and noted in full below. Receptive language is characterized by impaired comprehension of commands, y/n questions, and orientation questions. Expressive language is impaired characterized by paraphasias, confrontation naming deficits, and difficulties with word finding. Pt benefited from written cues and given choices from a field of two. OBJECTIVE CBC and BMP from 07/17 personally reviewed. Patient Vitals for the past 24 hrs: BP Temp Temp src Pulse Resp SpO2 07/17/25 0936 -- -- -- 81 20 98 % 07/17/25 0900 167/86 36.2 C (97.2 F) -- -- -- -- 07/17/25 0800 -- -- -- 87 21 98 % 07/17/25 0400 -- -- -- 83 21 97 % 07/17/25 0000 -- -- -- 76 18 95 % 07/16/258 (!) 144/99 36.4 C (97.5 F) Temporal 77 25 95 % 07/16/25 2000 -- -- -- 80 17 92 % 07/16/25 1700 146/75 36.7 C (98.1 F) Temporal 70 20 95 % 07/16/25 1600 -- -- -- 71 19 98 % 07/16/25 1200 -- -- -- 79 20 90 % Lab Results Component Value Date WBC 9.3 07/17/2025 HGB 12.1 (L) 07/17/2025 HCT 37.5 (L) 07/17/2025 MCV 95 07/17/2025 PLT 170 07/17/2025 Lab Results Component Value Date CREATININE 2.53 (H) 07/17/2025 BUN 33 (H) 07/17/2025 NA 139 07/17/2025 K 4.4 07/17/2025 CL 104 07/17/2025 CO2 24 07/17/2025 PHYSICAL EXAM General: Resting comfortably, no acute distress. Pleasant, cooperative. HEENT - NC/AT Cardiovascular: 2+ radial pulses bilaterally. Warm and well-perfused extremities. No peripheral edema Respiratory: Equal and symmetrical chest rise bilaterally. No respiratory distress. Abdomen: Non-distended. Skin: bilateral forearm ecchymosis 2/2 friable skin Neuro: Expressive aphasia. Replying yes or no only, following commands ~80% MSK: No obvious deformities. 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 IMPRESSION: Kitty Vergara is a 85 y.o. year old male patient with stroke following TAVR. Recommendations: # Stroke - Affecting scatter L>R cerebral hemispheres and left cerebellar. - Deficits include:expressive aphasia - DAPT until 01/19/26 - Spasticity: None appreciated at this time. - Secondary stroke prevention including smoking cessation, close glucose and BP controlled if applicable - PO: regular - DVT prophylaxis with heparin sq. # Pain - Currently: PRN Tylenol- Wean narcotics as possible. - Monitor and adjust medications as needed. # Concern for Neurogenic Bladder: - De Oliveira cath in place - Please Stat lock de oliveira to proximal medial thigh or lower abdomen to prevent bladder neck trauma. - If de oliveira removed, check for urinary retention with bladder scans q4h and straight cath for any volume >400cc. - If fails initial TOV, recommend starting Tamsulosin 0.4mg daily for urinary retention for at least 5 days prior to next TOV attempt. # Concern for Neurogenic Bowel: - Last BM: unknown - Recommend starting bowel program with Senna 2 tabs PO BID and Miralax BID. Escalate to bisacodyl suppository if no BM in 24 hrs of oral regimen initiation - Goal of one BM daily. # Impaired mobility and Impaired independence with ADLs and I/ADLs - Continue PT, working on bed mobility, transfers, balance, endurance, strength, gait, eval for appropriate assistive device - Continue OT, working on functional cognition, functional mobility, upper limb strength/coordination, balance, endurance, eval for appropriate adaptive equipment, ADLs, and I/ADLs. # Goals of Rehab - return home at Huber level with spouse # Dispo -Given severity of aphasia, this patient is likely going to need 24/7 supervision going home from any post-acute facility stay. Additionally, the is unable to provide any physical assistance patient may need given either his right sided weakness or safety concerns with mobility in setting of significant cognitive impairment. at this time feels it is unlikely her children would be able to provide 24/7 care for patient. - Patient and family will need time more than anything to help plan for the termite treater care of this patient. As of now, it is unlikely this patient will progress quickly enough to make it home after an acute rehab stay. Transfer to SNF when medically ready would be more appropriate at this time. It may be possible for this patient to transfer from SNF to acute rehab facility if patient improves from a cognitive standpoint while at SNF to make a home discharge possible. I discussed with Lux Ridley my plan if care for this patient. We will follow along with you. Thank you for the consult. John Mendez DO, MBA, PGY-4 Physical Medicine and Rehabilitation Available via [facility] Patient seen and examined with attending Dr. Larose, who agrees with assessment and plan. NOTE: This note is not finalized until attending reviews and signs. Supervisory note: Seen with Dr Mendez, resident. I saw and evaluated the patient. I personally obtained the davis and critical portions of the history and physical exam. I reviewed the resident's documentation and discussed the patient with the resident. I agree with the resident's medical decision making as documented in the resident's note. Moose Larose DO Physical Medicine and Rehabilitation [facility] Associated Order(s): Inpatient consult to Psychiatry Images from the original note were not included. Inpatient consult to Psychiatry Consult performed by: Kayla Mary MD Consult ordered by: Lux Ridley, DIESEL SERVICE APPRENTICE-MINE ENGINEERING SUPERVISOR HISTORY OF PRESENT ILLNESS: Kitty Stallworth" is a 85 y.o. male with no past psychiatric history and a past medical history of HTN, HLD, DM2, CKD, Gout, OA, obesity admitted on 07/13/2025 for a scheduled TAVR procedure. 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 Psychiatry consulted on 07/15/25 for recommendations regarding management of intermittent agitation/delirium. On chart review, while in CICU was given one time dose of PRN olanzapine 5mg IM for agitation at 1999 on 07/14, per team related to him frequently trying to climb out of bed. Required additional dose of Haldol 1g IM on 07/15/25 after arriving to floor at 1047 in the morning. PRN lorazepam 0.5mg was also ordered but not administered, and later ordered and given Diazepam 2mg IM at 2226 on 07/15/25. On interview, patient opens eyes to voice, lethargic, mumbles incoherently and perseverates on "I will". Not following simple commands. Per sitter at bedside, patient was agitated early this morning, trying to climb out of bed, but was redirected and since calmed down, explaining he's been sleeping since then. PSYCHIATRIC REVIEW OF SYSTEMS Depression: negative Anxiety: negative Daphney: negative Psychosis: negative Delirium: confusion, disorientation, fluctuating or reduced consciousness, lethargy and fatigue, speech or language disturbance, and difficulty directing, focusing, sustaining or shifting attention Trauma: unable to illicit history from patient PSYCHIATRIC HISTORY Prior diagnoses: none Prior hospitalizations: none History of suicide attempts: none History of self-harm: none History of trauma/abuse/loss: none History of violence: none Current psychiatric medications: non scheduled Past psychiatric medications: n/a Past psychiatric treatments: n/a Family psychiatric history: unable to illicit due to patient status SUBSTANCE USE HISTORY He reports that he quit smoking about 36 years ago. His smoking use included cigarettes. He has never been exposed to tobacco smoke. He has never used smokeless tobacco. He reports that he does not currently use alcohol. He reports that he does not use drugs. SOCIAL HISTORY Social History[1] Social history not obtained from patient due to language barrier and lethargy confusion Family: with children and grandchildren Medical History[2] PMH of BPH GERD CKD stage 4 DMII hgAIc 6.6 CAD s/p LHC/RHC with PCI- 01/19/25 on Plavix and ASA 81mg Bradycardia severe non-rheumatic aortic stenosis Prior Head trauma/TBI/LOC/seizure history: negative PAST SURGICAL HISTORY Surgical History[3] FAMILY HISTORY Family History[4] ALLERGIES Oeczqrv-hfp-ooe reductase inhibitors and Iodine Some components of the patient's history were obtained through personal review of the patient's available medical records. OARRS REVIEW OARRS checked: yes OARRS comments: empty OBJECTIVE VITALS 07/15/2025 4:21 PM 07/15/2025 8:00 PM 07/15/2025 8:08 PM 07/16/2025 12:00 AM 07/16/2025 4:00 AM 07/16/2025 8:00 AM 07/16/2025 8:42 AM Vitals Systolic 163 141 164 Diastolic 72 77 83 BP Location Right arm Right arm Right arm Heart Rate 77 83 82 88 87 83 82 Temp 37.3 C (99.1 F) 36.8 C (98.2 F) 36.4 C (97.5 F) Resp 17 25 20 19 28 18 21 MENTAL STATUS EXAM General Appearance: Resting comfortably in bed, in no acute distress, opens eyes to voice, verbal but unintelligible speech Attitude/Behavior: interactive and cooperative, friendly, appropriate eye contact Motor: antigravity in all extremities Speech: slow, soft, with mixed aphasia and dysarthric. Believe he is perseverating on I will Gait/Station: not assessed Mood: pleasant, cooperative, smiles but language impaired. Affect: full range Thought Process: unable to assess Thought Associations: unable to assess Thought Content: unable to assess Insight: lacks insight Judgment: lacks judgement Cognition: unable to follow simple commands MEDICAL REVIEW OF SYSTEMS Pertinent review of systems noted in HPI HOME MEDICATIONS Medication Documentation Review Audit Reviewed by ERUM Steele (Nurse Practitioner) on 07/14/25 at 1006 Medication Order Taking? Sig Documenting Provider Last Dose Status acetaminophen (Tylenol 8 HOUR) 650 mg ER tablet [id number] Yes Take 1 tablet (650 mg) by mouth every 8 hours if needed for mild pain (1 - 3). Do not crush, chew, or split. Historical Provider, Past Month Active allopurinol (Zyloprim) 300 mg tablet [id number] Yes Take 1 tablet by mouth once daily Daniel Almanzar MD 07/12/2025 Active amLODIPine (Norvasc) 10 mg tablet [id number] Yes Take 1 tablet (10 mg) by mouth once daily. Daniel Almanzar MD 07/12/2025 Active aspirin 81 mg chewable tablet [id number] Yes Chew 1 tablet (81 mg) once daily. Nima Fay MD 07/12/2025 Active blood sugar diagnostic (Blood Glucose Test) [id number] Yes 1 strip early in the morning.. Daniel Almanzar MD 07/12/2025 Active bumetanide (Bumex) 0.5 mg tablet [id number] Yes Take 1 tablet (0.5 mg) by mouth once daily. Nima Fay MD 07/12/2025 Active cetirizine (ZyrTEC) 10 mg tablet [id number] No Take 1 tablet (10 mg) by mouth once daily. Patient not taking: Reported on 07/13/2025 Historical Provider, Not Taking Active clopidogrel (Plavix) 75 mg tablet [id number] Yes Take 1 tablet (75 mg) by mouth once daily. Do not fill before January 26, 2025. Tati Phoenix, DIESEL SERVICE APPRENTICE-MINE ENGINEERING SUPERVISOR, DNP 07/12/2025 Active empagliflozin (Jardiance) 10 mg tablet [id number] No Take 1 tablet (10 mg) by mouth once daily. Adriana Howell, DO 07/11/2025 Active ezetimibe (Zetia) 10 mg tablet [id number] Yes Take 1 tablet (10 mg) by mouth once daily. Daniel Almanzar MD 07/12/2025 Active gabapentin (Neurontin) 300 mg capsule [id number] Yes Take 1 capsule (300 mg) by mouth 2 times a day. Daniel Almanzar MD 07/12/2025 Active glucosamine/chondr hogue A sod (OSTEO BI-FLEX ORAL) [id number] Yes Take 1 capsule by mouth once daily. Historical Provider, 07/12/2025 Active insulin glargine-lixisenatide (Soliqua 100/33) 100 unit-33 mcg/mL insulin pen [id number] Yes Inject 19 Units under the skin once daily. Daniel Almanzar MD 07/12/2025 Active lansoprazole (Acid Summer Clerk, lansoprazole,) [address] capsule [id number] Yes Take 1 capsule (15 mg) by mouth once daily. Historical Provider, 07/12/2025 Active pen needle, diabetic 31 gauge x 5/16" needle [id number] Yes 1 each once daily. Daniel Almanzar MD 07/12/2025 Active CURRENT MEDICATIONS Scheduled medications Scheduled Medications[5] Continuous medications Continuous Medications[6] PRN medications PRN Medications[7] LABS Results from last 72 hours Lab Units 07/16/25 0848 07/15/25 0634 07/14/25 0518 GLUCOSE mg/dL 241* 162* 171* SODIUM mmol/L 138 138 138 POTASSIUM mmol/L 3.8 3.8 3.9 CHLORIDE mmol/L 103 102 103 CO2 mmol/L 24 23 24 ANION GAP mmol/L 15 17 15 BUN mg/dL 35* 37* 33* CREATININE mg/dL 2.77* 2.68* 2.01* EGFR mL/min/1.73m*2 22* 23* 32* CALCIUM mg/dL 9.1 9.1 9.1 MAGNESIUM mg/dL 2.17 2.11 2.12 Results from last 72 hours Lab Units 07/16/25 0848 07/15/25 0634 07/14/25 0518 PROTIME seconds 12.7* 12.9* 12.7* INR 1.1 1.2* 1.1 Results from last 72 hours Lab Units 07/16/25 0848 07/15/25 0634 07/14/25 0518 WBC AUTO x10*3/uL 9.6 10.1 9.5 RBC AUTO x10*6/uL 3.84* 3.73* 3.73* HEMOGLOBIN g/dL 11.5* 11.1* 11.1* MCV fL 95 96 95 MCH pg 29.9 29.8 29.8 PLATELETS AUTO x10*3/uL 163 147* 146* IMAGING MR brain wo IV contrast 07/14/2025 Narrative Interpreted By: Matilde Melvin, STUDY: MR BRAIN WO IV CONTRAST; 07/14/2025 9:29 pm INDICATION: Signs/Symptoms:expressive dysphasia. COMPARISON: MRI dated 03/28/2023 ACCESSION NUMBER(S): [id number] ORDERING CLINICIAN: JACKSON COX TECHNIQUE: Axial diffusion, axial T2, axial FLAIR, axial gradient echo T2, coronal T1, and sagittal T1 weighted MRI images of the brain were obtained without intravenous contrast administration. FINDINGS: The diffusion-weighted images demonstrate scattered areas of abnormal diffusion restriction within the cerebral hemispheres bilaterally left greater than right as well as within the left cerebellar hemisphere. The dominant area of abnormal diffusion restriction is identified within the left temporoparietal region. Additional small foci of abnormal diffusion restriction are identified within the left frontal lobe, along the right precentral gyrus, right occipital lobe, and left cerebellar hemisphere. The findings are compatible with areas of acute to early subacute infarction. The above findings are superimposed upon moderate brain parenchymal volume loss. There are scattered as well as more patchy and confluent nonspecific white matter changes again noted within cerebral hemispheres bilaterally as well as ill-defined increased signal on the FLAIR and T2 images overlying the brainstem which while nonspecific, given the patient's age, likely represent sequelae of more remote small-vessel ischemic change. Additional small foci of bright signal on the T2 images are identified within the subinsular regions, basal ganglia, and thalami bilaterally suggesting incidental mildly prominent perivascular spaces and/or scattered more remote lacunar infarctions. Scattered areas of encephalomalacia are identified within the cerebellum as well as along the posterior right occipital lobe. There is no midline shift. The suprasellar/basilar cisterns are patent. There is mild mucosal thickening noted within scattered ethmoid air cells. The remaining paranasal sinuses are clear. There is opacification of a few inferior mastoid air cells bilaterally. Impression There are MRI findings compatible with scattered areas of acute to early subacute infarction within the cerebral hemispheres bilaterally left greater than right as well as within the left cerebellar hemisphere as described above. The dominant area of acute to early subacute infarction is identified within the left temporoparietal region. The above findings are superimposed upon moderate brain parenchymal volume loss. There are scattered as well as more patchy and confluent nonspecific white matter changes again noted within cerebral hemispheres bilaterally as well as ill-defined increased signal on the FLAIR and T2 images overlying the brainstem which while nonspecific, given the patient's age, likely represent sequelae of more remote small-vessel ischemic change. Additional small foci of bright signal on the T2 images are identified within the subinsular regions, basal ganglia, and thalami bilaterally suggesting incidental mildly prominent perivascular spaces and/or scattered more remote lacunar infarctions. Scattered areas of encephalomalacia are identified within the cerebellum as well as along the posterior right occipital lobe. MACRO: Critical Finding: See findings. Notification was initiated on 07/15/2025 at 6:48 am by Matilde Melvin. (-OCF-) Instructions: See Findings. Signed by: Matilde Melvin 07/15/2025 6:48 AM Dictation workstation: [id number] CT brain attack head wo IV contrast 07/14/2025 CT brain attack angio head and neck W and WO IV contrast 07/14/2025 Narrative Interpreted By: Angela Doyle and Stevens Alex STUDY: CT BRAIN ATTACK HEAD WO IV CONTRAST; CT BRAIN ATTACK ANGIO HEAD AND NECK W AND WO IV CONTRAST; 07/14/2025 2:22 am; 07/14/2025 2:24 am INDICATION: Signs/Symptoms:concern for stroke; Signs/Symptoms:stroke COMPARISON: CT head 10/18/2024, CT head 05/29/2024, MRI brain 03/28/2023 ACCESSION NUMBER(S): [id number]; [id number] ORDERING CLINICIAN: CHIP LOMBARDI TECHNIQUE: Multiple contiguous axial noncontrast images of the head were obtained. Following IV contrast administration of iodinated contrast, a CT angiography of the head and neck was performed. MIPS and 3D reconstructions of the [place] and neck were created on an independent workstation and reviewed. The patient received 80 mL Omnipaque 350. The CTA of the head was post processed with Rapid. FINDINGS: NON-CONTRAST HEAD CT: BRAIN PARENCHYMA: No evidence of acute intraparenchymal hemorrhage or parenchymal evidence of an acute large territory ischemic infarct. No mass-effect, midline shift or effacement of cerebral sulci. Sun-white matter distinction is preserved. Focal hypodensity noted within the region of the left basal ganglia (series 201, image 18), favored to be reflective of a remote infarct. There are patchy and confluent areas of diminished attenuation in the subcortical and periventricular white matter. The posterior fossa is degraded by beam hardening artifact. There are small areas of diminished attenuation and volume loss in the cerebellum. There are also small hypodensities within bilateral basal ganglia, thalami, and internal and external capsules which could represent perivascular spaces or lacunar infarcts. VENTRICLES and EXTRA-AXIAL SPACES: No acute extra-axial or intraventricular hemorrhage. There is prominence of ventricles and sulci compatible with diffuse parenchymal volume loss. PARANASAL SINUSES/MASTOIDS: No hemorrhage or air-fluid levels within the visualized paranasal sinuses. The mastoids are well aerated. CALVARIUM: No skull fracture. CTA NECK: The aortic arch and arch vessels are degraded by artifact. There are atherosclerotic changes of the aortic arch. There is a three-vessel arch. The vessels are tortuous. Carotid vessels: The proximal common carotid arteries are degraded by artifact. There is mural thickening and/or noncalcified plaque along the course of the common carotid arteries, left greater than right. Relative to the caliber of the vessel more proximally there is luminal narrowing of the distal left common carotid artery measuring approximately 60-65%. There is little to no measurable stenosis of the right common carotid artery. There is atherosclerotic plaque at the carotid bifurcations and involving the proximal ICAs. Atheromatous ulceration is suspected, particularly on the right. The cervical segments of the ICAs are tortuous and deviates medially into a retropharyngeal location. Relative to the normal caliber of the vessel more distally there is narrowing at the origin of the right ICA of less than 30%. Vertebral vessels: The V1 segments of the vertebral arteries are degraded by artifact. Both appear tortuous. The right is slightly dominant. There is scattered atherosclerotic plaque along the cervical segments of the vertebral arteries bilaterally. There is luminal irregularity and at least mild narrowing of the distal V2/V3 segments on the left at the C1 level in particular. The right lobe of the thyroid gland is enlarged and there is a heterogeneous nodule measuring at least 3.5 cm in axial dimension. There is associated mass effect with mild displacement of the trachea to the left and splaying of the right common carotid artery laterally. There are scattered, nonspecific cervical lymph nodes. There are nodular foci within and abutting the parotid glands which are nonspecific but favored to represent lymph nodes. There is a partially imaged right IJ central venous line. There are areas of ground-glass opacity and septal thickening within the visualized upper lungs bilaterally. This is nonspecific. There are multilevel degenerative changes of the cervical spine. CTA HEAD: ANTERIOR CIRCULATION: There calcifications of the intracranial segments of the internal carotid arteries. There does not appear to be greater than mild associated stenosis. The proximal anterior and middle cerebral arteries are patent. POSTERIOR CIRCULATION: The right vertebral artery is dominant. The vertebrobasilar system is somewhat tortuous. The basilar artery is patent. The P1 segment of the left SCRAP BURNER is either markedly hypoplastic or absent. There is a posterior communicating artery on the left. The proximal right SCRAP BURNER is patent. Impression 1. No proximal large branch vessel cutoff on CTA of the head. 2. Atherosclerotic changes most significantly involving the common carotid arteries, left greater than right with stenosis of the distal left common carotid artery measuring up to approximately 60-65% relative to the caliber of the vessel more proximally. There is also luminal irregularity at least mild narrowing of the distal V2/V3 segment of the left vertebral artery. 3. Nonspecific white matter changes most likely represent small-vessel ischemic disease in a patient of this age. No definitive evidence of acute cortical infarct, mass effect, or acute intracranial hemorrhage. There are areas of encephalomalacia in the cerebellum which could reflect remote infarcts. MRI with diffusion-weighted imaging would be a more sensitive means of assessing for acute ischemic injury. 4. Diffuse parenchymal volume loss. 5. Enlarged and heterogenous appearance of the right thyroid lobe with a focal lesion measuring up to 3.5 cm. Recommend correlation with non-emergent thyroid ultrasound. 6. Additional findings as above. I personally reviewed the images/study and I agree with the findings as stated by Jeff Butler DO PGY-3. MACRO: Jeff Butler discussed the significance and urgency of this critical finding in person with neurology on 07/14/2025 at 2:30 a.m.. (-RCF-) Findings: See findings. Incidental Finding: There are few small hypoattenuating nodules measuring equal to or greater than 1.5 cm in the thyroid gland. (-YCF-) Instructions: Further evaluation with nonemergent thyroid ultrasound. (Managing Incidental Thyroid Nodules Detected on Imaging: White Paper of the ACR Incidental Thyroid Findings Committee. Mariela Sutton et al. Journal of the [place] [employer],Volume 12, Issue 2, 143 - 150.) [id number] Signed by: Angela Doyle 07/14/2025 6:06 AM Dictation workstation: [id number] Encounter Date: 07/13/25 ECG 12 lead daily Result Value Ventricular Rate 87 Atrial Rate 79 TX Interval 296 QRS Duration 136 QT Interval 422 QTC Calculation(Bazett) 507 P Goltry 97 R Goltry 11 T Goltry 178 QRS Count 14 Q Onset 209 P Onset 61 P Offset 120 T Offset 420 QTC Fredericia 477 Narrative Sinus rhythm with 1st degree AV block with occasional Premature ventricular complexes and Premature atrial complexes Left bundle branch block Abnormal ECG When compared with ECG of 14-JUL-2025 05:26, Sinus rhythm has replaced Ectopic atrial rhythm PSYCHIATRIC RISK ASSESSMENT Violence Risk Factors: male, lack of insight, and impulsivity Acute Risk of Harm to Others is Considered: Low Suicide Risk Factors: none Protective Factors: none Acute Risk of Harm to Self is Considered: Moderate ASSESSMENT AND PLAN Kitty Stallworth" is a 85 y.o. male with no past psychiatric history and a past medical history of HTN, HLD, DM2, CKD, Gout, OA, obesity admitted on 07/13/2025 for a scheduled TAVR procedure. 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 Psychiatry consulted on 07/15/25 for recommendations regarding management of intermittent agitation/delirium. Mr. Vergara is on day four of his hospital stay where on days 2 and 3 of stay, primary team is noticing a combination of hyperactivity, becoming agitated and attempting to climb out of bed, where he was unable to be redirected requiring PRN antipsychotics and benzodiazepines. He has received PRN olanzapine 5mg IM for agitation at 2000 on 07/14, required dose of Haldol 1g IM on 07/15/25 after arriving to floor at 1047, and given Diazepam 2mg IM at 2226 on 07/15/25. On bedside exam this morning, patient was lethargic, opens eyes to voice, appropriate eye contact and cooperative, but unable to follow simple commands, presenting with mixed aphasia in setting of recent infarcts. Was told he was trying to climb out of bed this morning, needing staff to redirect, and there is concern for further injury and inability for cooperation with services such as physical therapy which would promote discharge to acute rehab. This picture is concerning for a mixed delirium. We recommend initiating nightly 2.5mg PO olanzapine for further stabilization, as well as Olanzapine 2.5 BID PO/IM as needed for agitation if needed in addition to scheduled dose. Recommend discontinuing Valium as a PRN for agitation given that concomitant use with Olanzapine runs the risk of respiratory depression. Also discussed that he would be an appropriate transfer to the Med Psych Unit if beds are available and accepting team agrees. Psychiatry team will continue to follow and recommend medication adjustments as appropriate. IMPRESSION #Mixed delirium RECOMMENDATIONS Safety: - Patient DOES NOT currently meet criteria for inpatient psychiatric admission. - Patient lacks the capacity to leave AMA at this time and thus cannot leave AMA. Call CODE CEDRIC if patient attempts to leave AMA. - To evaluate decision-making capacity, recommend use of the Capacity Evaluation Tool. Search "[facility] Capacity Evaluation" under SmartText - Defer to primary team decision for 1:1 sitter. - As with all hospitalized patients, would recommend delirium precautions, as below. Instructions for transfer to MPU: Patient is appropriate for the Med-Psych Unit and can be transferred for co-management with the primary team Please note that the patient or surrogate decision maker should approve transfer (unless pt is awaiting inpatient psychiatric admission, i.e. SI/HI/florid psychosis) Current medical or surgical team remains primary Place STAT transfer order to [address] / [facility] and alert current unit to arrange transport Medications: -START Olanzapine 2.5mg PO at bedtime scheduled - START Olanzapine 2.5 PO/IM BID as needed for agitation -Please discontinue Valium PRN as there as concomitant use with Olanzapine increases risk of excessive sedation/respiratory depression -Delirium precautions as stated below. Work-up: - EKG (07/14): QTc of 474ms DELIRIUM GUIDELINES Non-Pharmacologic: - Assess visual and hearing impairments and provide aids and communication boards. - Assess immobility and advocate for early evaluation and intervention by physical therapy, out of bed when medically indicated, and expeditious removal of tethers. - Promote physiologic sleep and maintenance of sleep/wake cycle by ensuring blinds are open during the day, maintaining dark/quiet room at night with minimal interruptions, and minimizing daytime naps. - Minimize room and staff changes. - Engage the patient in cognitively stimulating activities and provide frequent reorientation. - Minimize use of restraints to situations where necessary to keep patient and staff safe and to prevent from removing lines, tubes, medical devices, dressings, etc. Pharmacologic: - Minimize use of deliriogenic medications such as benzodiazepines, anticholinergic medications, and opiates (while ensuring adequate treatment of pain). - Assess and treat disruption in bowel and bladder function. - Assess and treat abnormalities in nutrition and hydration status. - Discussed recommendations with primary team. - Psychiatry will continue to follow. Thank you for allowing us to participate in the care of this patient. Please page [phone] with any questions or concerns. Patient seen and staffed with Dr. Toscano, who agrees with above plan. Kayla Mary MD Neurology PGY4 Psychiatry Team Medication Consent Medication Consent: patient unable to consent; guardian consent obtained and n/a; consult service Fellow ATTESTATION: Patient seen on 07/16/25 for staffing. On assessment patient has multiple family members present at beside. Patient responds to most questions with "no" and "please leave". Has difficulty hearing and per family at bedside he does not have his hearing aids in. Hearing aids were placed with assistance of speech therapy and comprehension improved. He has difficulty recalling names of family at bedside but is aware of who is and isn't a family member to him. Further assessment limited by patient's mentation. Discussed with patient's at bedside concern for dellirium in setting of recent strokes and recommendation for zyprexa at bedtime and transfer to MPU for comanagement. is agreeable to transfer. MSE notable for fair groomed adult male resting in bed, soft bilateral wrist restraints on BUE. Dyarthric speech, slow rate, low volume. Impaired attention and concentration and impaired recall. Agree with above recommendations. Patient seen and discussed with Dr. Toscano, who agrees with above plan which I have reviewed/edited. Liban Paulino MD [1] Social History Socioeconomic History Marital status: Spouse name: Adriel Tobacco Use Smoking status: Former Current packs/day: 0.00 Types: Cigarettes Quit date: 1988 Years since quittin.8 Passive exposure: Never Smokeless tobacco: Never Vaping Use Vaping status: Never Used Substance and Sexual Activity Alcohol use: Not Currently Drug use: Never Sexual activity: Defer Social Drivers of Health Financial Resource Strain: Low Risk (07/15/2025) Overall Financial Resource Strain (CARDIA) Difficulty of Paying Living Expenses: Not very hard Food Insecurity: No Food Insecurity (07/13/2025) Hunger Vital Sign Worried About Running Out of Food in the Last Year: Never true Ran Out of Food in the Last Year: Never true Transportation Needs: No Transportation Needs (07/15/2025) PRAPARE - Transportation Lack of Transportation (Medical): No Lack of Transportation (Non-Medical): No Social Connections: Feeling Socially Integrated (04/09/2025) OASIS D0700: Social Isolation Frequency of experiencing loneliness or isolation: Never Recent Concern: Social Connections - Feeling Somewhat Isolated (03/07/2025) OASIS D0700: Social Isolation Frequency of experiencing loneliness or isolation: Sometimes Intimate Partner Violence: Not At Risk (07/13/2025) Humiliation, Afraid, Rape, and Kick questionnaire Fear of Current or Ex-Partner: No Emotionally Abused: No Physically Abused: No Sexually Abused: No Housing Stability: Unknown (07/15/2025) Housing Stability Vital Sign Unable to Pay for Housing in the Last Year: No Homeless in the Last Year: No [2] Past Medical History: Diagnosis Date Acute on chronic urinary retention Aortic valve stenosis moderate to severe, non Rheumatic BPH (benign prostatic hyperplasia) Bradycardia recent ED admit for UTI and Bradycardia-Hrin the 30's and lightheaded, wore holter with results in Epic 03/05/25. Coreg dc'd. Patient denies any further issues Chronic GERD 02/21/2023 Chronic kidney disease (CKD), stage IV (severe) (Multi) 12/08/2024 Chronic UTI CKD (chronic kidney disease) follows with nephrology, BUN/CR= 42/2.25 &GFR=28 on 03/09/25 Constipation Enlarged prostate with urinary obstruction 02/05/2025 Erectile dysfunction 10/01/2024 GERD (gastroesophageal reflux disease) Gout feet, no recent flare ups Heart failure (Multi) History of echocardiogram 10/20/2024 Hyperlipidemia Hypertension Indwelling urinary catheter present Lesion of bladder bladder tumor Neuropathy pain/spasms to feet per patient, Neurotin helping Nocturia 02/21/2023 Nonrheumatic aortic valve stenosis 10/31/2024 OA (osteoarthritis) Cronic pain in right shoulder Obesity 02/21/2023 Pre-operative clearance :case has been extensively discussed with Urology,Ideally prefer 6mo waiting after his stents for procedure, but given patients discomfort with de oliveira and already several months dealing with the de oliveira-related symptoms, it would be reasonable to proceed on 03/30/2025 (3 months after stents). Plavix should be dc'd 5 days prior to surgery&resumed 24-48 hours after the procedure. Primary osteoarthritis of right shoulder 08/28/2023 Seasonal allergies Type 2 diabetes mellitus (Multi) A1C= 6.6% on 03/09/25 Type 2 diabetes mellitus with chronic kidney disease, with long-term current use of insulin (Multi) 09/09/2024 [3] Past Surgical History: Procedure Laterality Date ANOMALOUS PULMONARY VENOUS RETURN REPAIR, TOTAL N/A 07/13/2025 Procedure: TAVR-OR; Surgeon: Omar Howell MD PhD; Location: [address] [facility] [employer] [facility]; Service: Cardiac Surgery; Laterality: N/A; non con sinus 35 STJ 35. The left main coronary artery height is 16 mm, the right main coronary artery height is 9 mm. Access good. Plan to proceed with TAVR. Evolut 34 FX plus. APPENDECTOMY 09/26/2019 Appendectomy CARDIAC CATHETERIZATION N/A 01/19/2025 PCI to prox-mid LAD using 2 WILLIE 3.0/38mm and 3.0/8mm (post-dil 3.5mm NC balloon) guided by IVUS. CARDIAC CATHETERIZATION N/A 07/13/2025 Procedure: TAVR (Transcatheter AV Replacement); Surgeon: Dorothy Barbosa MD; Location: [address] Cardiac [facility] Improvement [facility]; Service: Cardiovascular; Laterality: N/A; non con sinus 35 STJ 35. The left main coronary artery height is 16 mm, the right main coronary artery height is 9 mm. Access good. Plan to proceed with TAVR. Evolut 34 FX plus. 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; Service: Cardiovascular; Laterality: N/A; CATARACT EXTRACTION 09/26/2019 Cataract surgery COLONOSCOPY 09/26/2019 Colonoscopy MR HEAD ANGIO WO IV CONTRAST 03/28/2023 MR HEAD ANGIO WO IV CONTRAST 03/28/2023 [facility] MRI MR NECK ANGIO WO IV CONTRAST 03/28/2023 MR NECK ANGIO WO IV CONTRAST 03/28/2023 [facility] MRI [4] Family History Problem Relation Name Age of Onset Heart attack Mother Cancer Mother Heart disease Father Heart disease Brother Heart attack Child Brain cancer Child Diabetes type II Other OTHER Breast cancer Other OTHER [5] amLODIPine, 2.5 mg, oral, Daily aspirin, 81 mg, oral, Daily bumetanide, 0.5 mg, oral, Daily clopidogrel, 75 mg, oral, Daily docusate sodium, 100 mg, oral, BID ezetimibe, 10 mg, oral, Daily gabapentin, 300 mg, oral, BID heparin (porcine), 5,000 Units, subcutaneous, q8h insulin glargine, 10 Units, subcutaneous, Nightly insulin lispro, 0-10 Units, subcutaneous, TID AC pantoprazole, 40 mg, oral, Daily before breakfast Or pantoprazole, 40 mg, intravenous, Daily before breakfast perflutren lipid microspheres, 0.5-10 mL of dilution, intravenous, Once in imaging [6] [7] PRN medications: acetaminophen OR acetaminophen OR acetaminophen, benzocaine-menthol, dextrose, dextrose, diazePAM, glucagon, glucagon, lidocaine-epinephrine, melatonin, ondansetron OR ondansetron, oxygen, phenoL, prochlorperazine OR prochlorperazine OR prochlorperazine, traMADol Cosigned by Angela Toscano MD at 07/17/2025 6:58 AM EDT Associated attestation - Angela Toscano MD - 07/17/2025 6:58 AM EDT I saw and evaluated the patient. I personally obtained the davis and critical portions of the history and physical exam or was physically present for davis and critical portions performed by the resident/fellow. I reviewed the resident/fellow's documentation and discussed the patient with the resident/fellow. I agree with the resident/fellow's medical decision making as documented in the note. Pt seen with fellow for staffing, as above, pt limitedly engaged but calmer, family at bedside agreeable to MPU for co-management if team would like to transfer. Agree with use of PRN olanzapine as there seems to have been some benefit from it and has a better a/e profile than haldol. Psychiatry will follow. Rest as above Angela Toscano MD CL Psychiatry Attending Images from the original note were not included. Subjective HPI Kitty Stallworth" is a 85 y.o. Left-handed male with PMH of HTN, HLD, DM2, CAD s/p PCI, CKD, former smoker, and aortic stenosis who is admitted electively with cardiology for TAVR. neurology consulted for Aphasia . BAT was called at 2 am for aphasia post TAVR, He was last seen normal at 4 pm before surgery, then he had symptoms at 7 pm post surgery but thought likely secondary to anesthesia effect however persisted and BAT was called. BP 1163/80, BG 161 NIH 11 (breakdown below) CT and CTA were unremarkable aside from prior old strokes. History obtained from reported that he never had a stroke, he is independent at baseline He has prior h/o of suspected TIA: They were seen at [facility] in 04/15 for symptoms of falling. CTH showed no acute abnormality. MRI head showed no acute abnormality, small vessel disease on FLAIR. Vessel imaging showed patent vasculature without significant stenosis. TTE showed normal EF, normal LA, negative bubble. A1c was 7.1. Telemetry showed NSR. Patient was not sent home with a heart monitor. Patient was started on DAPT per POINT x21 days.. However, final impression was less likely TIA. Past Medical History Medical History[1] Surgical History Surgical History[2] Social History Social History[3] Allergies Dbqvcan-ksl-smj reductase inhibitors and Iodine Home Medications Current Outpatient Medications Medication Instructions acetaminophen (Tylenol 8 HOUR) 650 mg ER tablet 1 tablet, Every 8 hours PRN allopurinol (ZYLOPRIM) 300 mg, oral, Daily amLODIPine (NORVASC) 10 mg, oral, Daily aspirin 81 mg, oral, Daily blood sugar diagnostic (Blood Glucose Test) 1 strip, miscellaneous, Daily bumetanide (BUMEX) 0.5 mg, oral, Daily cetirizine (ZYRTEC) 10 mg, Daily clopidogrel (PLAVIX) 75 mg, oral, Daily empagliflozin (JARDIANCE) 10 mg, oral, Daily ezetimibe (ZETIA) 10 mg, oral, Daily gabapentin (NEURONTIN) 300 mg, oral, 2 times daily glucosamine/chondr hogue A sod (OSTEO BI-FLEX ORAL) 1 capsule, Daily insulin glargine-lixisenatide (Soliqua 100/33) 100 unit-33 mcg/mL insulin pen 19 Units, subcutaneous, Daily lansoprazole (ACID PROFESSOR OF ECONOMICS (LANSOPRAZOLE)) 15 mg, Daily pen needle, diabetic 31 gauge x 5/16" needle 1 each, miscellaneous, Daily Objective 24h Vitals Heart Rate: [69-78] Temp: [36.3 C (97.3 F)-36.6 C (97.9 F)] Resp: [13-20] BP: (148-191)/(65-93) Height: [175.3 cm (5' 9")-177.8 cm (5' 10")] Weight: [103 kg (227 lb)] SpO2: [90 %-100 %] Physical Exam Neurological Exam Physical Exam He was awake, answered his name, did not answer other questions, said some gibberish words, and repeated no, impaired naming, could not repeat. Obeys simple commands with encouragement. NIHSS 1a Level of consciousness: 0=alert; keenly responsive 1b. LOC questions: 2=Performs neither task correctly 1c. LOC commands: 1=Performs one task correctly 2. Best Gaze: 0=normal 3. Visual: 0=No visual loss 4. Facial Palsy: 0=Normal symmetric movement 5a. Motor Left Arm: 0=No drift, limb holds 90 (or 45) degrees for full 10 seconds 5b. Motor Right Arm: 0=No drift, limb holds 90 (or 45) degrees for full 10 seconds 6a. Motor Left Le=No effort against gravity, limb falls 6b Motor Right Le=No effort against gravity, limb falls 7. Limb Ataxia: 0=Absent 8. Sensory: 0=Normal; no sensory loss 9. Best Language: 2=Severe Aphasia: fragmentary expression, inference needed, cannot identify materials 10. Dysarthria: 0=Normal 11. Extinction and Inattention: 0=No abnormality Total: 11 Recent Labs Results from last 72 hours Lab Units 07/13/252008 SODIUM mmol/L 139 POTASSIUM mmol/L 3.4* BUN mg/dL 35* CREATININE mg/dL 2.27* CALCIUM mg/dL 9.0 MAGNESIUM mg/dL 2.14 Results from last 72 hours Lab Units 07/13/252008 WBC AUTO x10*3/uL 10.9 HEMOGLOBIN g/dL 11.3* HEMATOCRIT % 35.4* PLATELETS AUTO x10*3/uL 142* Results from last 72 hours Lab Units 07/13/252008 INR 1.2* Lab Results Component Value Date HGBA1C 6.6 (H) 03/09/2025 HGBA1C 7.2 (H) 09/05/2024 HGBA1C 7.3 (H) 05/08/2024 LDLF - 03/29/2022 LDLF - 03/29/2020 BNP Date/Time Value Ref Range Status 10/18/2024 03:57 PM 321 (H) 0 - 99 pg/mL Final Imaging CT head results: CT brain attack head wo IV contrast Result Date: 07/14/2025 1. No evidence of large vessel occlusion, intracranial hemorrhage, or mass lesion. 2. Atherosclerotic plaque within the proximal aspect of the left internal carotid artery results in 55% luminal stenosis by NASCET criteria. 3. Chronic appearing infarct within the region of the left basal ganglia. Additional sequelae of chronic microvascular disease and age-related generalized parenchymal atrophy. 4. Enlarged and heterogenous appearance of the right thyroid lobe with a focal lesion measuring up to 3.1 cm. Recommend correlation with non-emergent thyroid ultrasound. I personally reviewed the images/study and I agree with the findings as stated by Jeff Butler, PGY-3. This study was interpreted at [place], [place]. MACRO: Jeff Butler discussed the significance and urgency of this critical finding in person with neurology on 07/14/2025 at 2:30 a.m.. (-RCF-) Findings: See findings. Dictation workstation: [id number] CT head wo IV contrast Result Date: 10/18/2024 No acute intracranial hemorrhage or mass-effect. Dots of intracranial air near the sella, uncertain etiology and significance but perhaps intravascular/iatrogenic. Clinical correlation recommended. Mild bilateral ethmoid sinus mucosal thickening. MACRO: None. Signed by: Shey Morgan 10/18/2024 4:51 PM Dictation workstation: [id number] CT brain angio imaging results: @[id number]@ Stroke Alert CT/MRI review: Was interpreted as it was being performed IV Thrombolysis IV Thrombolysis Checklist IV Thrombolysis Given: No; Thrombolysis contraindication reason: Time from Last Known Well (or stroke onset) is >4.5 hours Assessment/Plan Kitty Stallworth" is a 85 y.o. left handed male with a history of HTN, HLD, DM2, CKD, Gout, OA, obesity admitted on 07/13/2025 for a scheduled TAVR. Stroke neurology consulted for acute mixed aphasia. LKW prior to OR. iNIHSS 11 (Q2, C1, Aphasia2, LLE3, RLE3). CTH shows old L caudate hypodensity and ?R temporal hypodensity. CTA H/N with patent anterior and posterior circulations. OOW TNK. Not a candidate for EVT given no LVO. Suspect etiology of symptoms either recrudesce of old stroke vs new ischemic infarct 2/2 cardio embolic origin. Type: Unknown Subtype: NA Vessels Involved: NA Neurologic Manifestations: Mixed aphasia Deficits: iNIHSS 11 (Q2, C1, Aphasia2, LLE3, RLE3). Initial treatment: None Anti-platelets or Anti-coagulation management: Aspirin (plavix per cards) Vascular Risk Factors: HTN, HLD, and DM, CKD former smoker. BP goal: permissive HTN. Disposition: Per primary Vascular Risk Factor modification goals: Blood pressure goals: avoid hypotension SBP <100 that could worsen cerebral perfusion, permissive HTN Lipid Goals: education on healthy diet and statin therapy to maintain or achieve goal LDL-cholesterol < 70mg. Glucose Goals: early treatment of hyperglycemia to goal glucose 140-180 mg/dl with long-term goal A1c < 7% Smoking Cessation and Education Assessment for Rehabilitation needs Patient and family education on signs and symptoms of stroke, calling 911, healthy strategies for stroke prevention. #Aphasia following cerebral infarction vs new ischemic stroke - Q2H vitals and neuro checks - ASA, 81 mg daily - Atorvastatin, 40 mg daily - MRI stroke protocol - Cardiac telemetry - Labs: LDL, A1C - BP Goal: Normotension - PT/OT/ROOF PLUMBER Recommendations incomplete until staffing with attending physician Dr. Gutiérrez in AM. Donte Salazar MD PGY_2 neurology resident POST-STAFFING UPDATES: Patient seen this morning, NIH 5 as for severe aphasia 2, LOC Q 2, and LOC C 1. Able to lift all extremities without drift. Continues to have significant receptive>expressive aphasia. - Obtain MRI brain without contrast when able - Okay for Q4 hour neuro checks - Agree with DAPT per primary team - Continue atorvastatin 40 mg daily - Obtain repeat LDL and A1c Gia Vasquez MD Neurology PGY-3 [1] Past Medical History: Diagnosis Date Acute on chronic urinary retention Aortic valve stenosis moderate to severe, non Rheumatic BPH (benign prostatic hyperplasia) Bradycardia recent ED admit for UTI and Bradycardia-Hrin the 30's and lightheaded, wore holter with results in Epic 03/05/25. Coreg dc'd. Patient denies any further issues Chronic GERD 02/21/2023 Chronic kidney disease (CKD), stage IV (severe) (Multi) 12/08/2024 Chronic UTI CKD (chronic kidney disease) follows with nephrology, BUN/CR= 42/2.25 &GFR=28 on 03/09/25 Constipation Enlarged prostate with urinary obstruction 02/05/2025 Erectile dysfunction 10/01/2024 GERD (gastroesophageal reflux disease) Gout feet, no recent flare ups Heart failure (Multi) History of echocardiogram 10/20/2024 Hyperlipidemia Hypertension Indwelling urinary catheter present Lesion of bladder bladder tumor Neuropathy pain/spasms to feet per patient, Neurotin helping Nocturia 02/21/2023 Nonrheumatic aortic valve stenosis 10/31/2024 OA (osteoarthritis) Cronic pain in right shoulder Obesity 02/21/2023 Pre-operative clearance :case has been extensively discussed with Urology,Ideally prefer 6mo waiting after his stents for procedure, but given patients discomfort with de oliveira and already several months dealing with the de oliveira-related symptoms, it would be reasonable to proceed on 03/30/2025 (3 months after stents). Plavix should be dc'd 5 days prior to surgery&resumed 24-48 hours after the procedure. Primary osteoarthritis of right shoulder 08/28/2023 Seasonal allergies Type 2 diabetes mellitus (Multi) A1C= 6.6% on 03/09/25 Type 2 diabetes mellitus with chronic kidney disease, with long-term current use of insulin (Multi) 09/09/2024 [2] Past Surgical History: Procedure Laterality Date APPENDECTOMY 09/26/2019 Appendectomy CARDIAC CATHETERIZATION N/A 01/19/2025 PCI to prox-mid LAD using 2 WILLIE 3.0/38mm and 3.0/8mm (post-dil 3.5mm NC balloon) guided by IVUS. CATARACT EXTRACTION 09/26/2019 Cataract surgery COLONOSCOPY 09/26/2019 Colonoscopy MR HEAD ANGIO WO IV CONTRAST 03/28/2023 MR HEAD ANGIO WO IV CONTRAST 03/28/2023 [facility] MRI MR NECK ANGIO WO IV CONTRAST 03/28/2023 MR NECK ANGIO WO IV CONTRAST 03/28/2023 [facility] MRI [3] Social History Tobacco Use Smoking status: Former Current packs/day: 0.00 Types: Cigarettes Quit date: 1988 Years since quittin.8 Passive exposure: Never Smokeless tobacco: Never Vaping Use Vaping status: Never Used Substance Use Topics Alcohol use: Not Currently Drug use: Never Cosigned by Mirtha Gutiérrez MD at 07/14/2025 4:47 PM EDT Associated attestation - Mirtha Gutiérrez MD - 07/14/2025 4:47 PM EDT I saw and evaluated the patient. I personally obtained the davis and critical portions of the history and physical exam or was physically present for davis and critical portions performed by the resident/fellow. I reviewed the resident/fellow's documentation and discussed the patient with the resident/fellow. I agree with the resident/fellow's medical decision making as documented in the note with the exception/addition of the following: S/p TAVER the patient became aphasic. He has reduced speech output, unable to name. Difficulty with complex commands. He is able to say "I can't talk". Right hemiparesis. Will complete stroke work up, but likely related to TAVER. Will need speech therapy both for swallow and language. documented in this encounter [facility] Work Phone: 07-13-2025 History and physical note H&P reviewed. The patient was examined and there are no changes to the H&P. Source Note - Josef Rodrigues MD - 07/01/2025 3:15 PM EDT Chief Complaint Dyspnea and Fatigue HPI: Mr. Kitty Vergara is an 84 y.o. male, who is a patient of Dr. Daniel Almanzar MD I have been asked to see them by Nima Lozano to evaluate aortic stenosis. He has functional decline over the last six months or so. He has had two admissions to the hospital this year, one in September for syncope and another in February for symptomatic bradycardia. He has undergone PCI to the LAD this year earlier as well. He is noticing more dyspnea and fatigue with waxing and taking care of his car. Medical History[1] Surgical History[2] Family History[3] Social History Socioeconomic History Marital status: Spouse name: Adriel Number of children: Not on file Years of education: Not on file Highest education level: Not on file Occupational History Not on file Tobacco Use Smoking status: Former Current packs/day: 0.00 Types: Cigarettes Quit date: 1988 Years since quittin.7 Passive exposure: Never Smokeless tobacco: Never Vaping Use Vaping status: Never Used Substance and Sexual Activity Alcohol use: Not Currently Drug use: Never Sexual activity: Defer Other Topics Concern Not on file Social History Narrative Not on file Social Drivers of Health Financial Resource Strain: Low Risk (03/05/2025) Overall Financial Resource Strain (CARDIA) Difficulty of Paying Living Expenses: Not hard at all Food Insecurity: No Food Insecurity (03/04/2025) Hunger Vital Sign Worried About Running Out of Food in the Last Year: Never true Ran Out of Food in the Last Year: Never true Transportation Needs: No Transportation Needs (04/09/2025) OASIS A1250: Transportation Lack of Transportation (Medical): No Lack of Transportation (Non-Medical): No Patient Unable or Declines to Respond: No Recent Concern: Transportation Needs - Unmet Transportation Needs (03/07/2025) OASIS A1250: Transportation Lack of Transportation (Medical): No Lack of Transportation (Non-Medical): Yes Patient Unable or Declines to Respond: No Physical Activity: Not on file Stress: Not on file Social Connections: Feeling Socially Integrated (04/09/2025) OASIS D0700: Social Isolation Frequency of experiencing loneliness or isolation: Never Recent Concern: Social Connections - Feeling Somewhat Isolated (03/07/2025) OASIS D0700: Social Isolation Frequency of experiencing loneliness or isolation: Sometimes Intimate Partner Violence: Not At Risk (03/04/2025) Humiliation, Afraid, Rape, and Kick questionnaire Fear of Current or Ex-Partner: No Emotionally Abused: No Physically Abused: No Sexually Abused: No Housing Stability: Low Risk (03/05/2025) Housing Stability Vital Sign Unable to Pay for Housing in the Last Year: No Number of Times Moved in the Last Year: 0 Homeless in the Last Year: No RX Allergies[4] Encounter Medications[5] Physical Exam Constitutional: Appearance: Normal appearance. HENT: Head: Normocephalic. Eyes: General: No scleral icterus. Pupils: Pupils are equal, round, and reactive to light. Cardiovascular: Rate and Rhythm: Normal rate and regular rhythm. Comments: IV/ ELISHA, high pitch, preserved S2 Pulmonary: Breath sounds: Normal breath sounds. Abdominal: Palpations: Abdomen is soft. Musculoskeletal: General: Normal range of motion. Cervical back: Normal range of motion. Right lower leg: Edema present. Skin: General: Skin is warm and dry. Neurological: Mental Status: He is alert and oriented to person, place, and time. Lab Results Component Value Date WBC 9.6 03/09/2025 HGB 11.7 (L) 03/09/2025 HCT 36.7 (L) 03/09/2025 MCV 94.3 03/09/2025 PLT 184 03/09/2025 Lab Results Component Value Date GLUCOSE 115 (H) 03/09/2025 CALCIUM 8.8 03/09/2025 NA 139 03/09/2025 K 4.4 03/09/2025 CO2 24 03/09/2025 CL 105 03/09/2025 BUN 42 (H) 03/09/2025 CREATININE 2.25 (H) 03/09/2025 Encounter Date: 03/04/25 ECG 12 Lead Result Value Ventricular Rate 53 Atrial Rate 53 TX Interval 278 QRS Duration 88 QT Interval 496 QTC Calculation(Bazett) 465 P Goltry 83 R Goltry 2 T Goltry 105 QRS Count 9 Q Onset 218 P Onset 79 P Offset 138 T Offset 466 QTC Fredericia 476 Narrative Sinus bradycardia with 1st degree AV block Minimal voltage criteria for LVH, may be normal variant ( R in aVL ) Abnormal QRS-T angle, consider primary T wave abnormality Abnormal ECG When compared with ECG of 04-MAR-2025 12:52, (unconfirmed) Sinus rhythm has replaced Atrial fibrillation QT has lengthened Confirmed by Nima Putnam ([id number]) on 03/06/2025 12:22:40 PM ECHO 10/20/24: Left ventricle is thickened, with moderate left ventricular hypertrophy. Estimated ejection fraction 60 to 65%. The right ventricle is normal in size and function. The aortic valve is heavily calcified with decreased excursion. Aortic valve velocity is 4.2 m/s, mean aortic valve gradient 44 mmHg, aortic valve area is calculated 0.87 cm . The mitral valve is normal with mild left regurgitation. Left atrium is dilated at 5.9 cm. Left heart catheterization 01/19/25: Coronary circulation is right dominant, there is significant coronary calcification in the LAD approximately 80% this was fixed with a stent to the left anterior descending coronary artery. There is also moderate stenosis of the left circumflex which on physiologic measurement was nonsignificant. CT-TAVR protocol dated 06/16/2025: The bilateral femoral artery access is good. This is a noncontrast study so annular measurement is difficult. The sinuses of Valsalva measure 36 x 37 x 37. The sinotubular junction is 33 mm. The left main coronary artery height is 16 mm, the right main coronary artery height is 9 mm. Holter monitor dated March 05 through March 11, 2025 shows no burden of atrial fibrillation, there was some sinus bradycardia with first-degree AV block. Assessment and Plan: Mr. Kitty Vergara is an 84 y.o. male who presents with symptomatic severe aortic stenosis. This is associated with HTN, HLD, DMII; and in the setting of BPH, GERD, CKD-IV, Gout, OA, and obesity. Their symptoms include Dyspnea and Fatigue. He has NYHA II heart failure symptoms. Their imaging is consistent with symptomatic severe aortic stenosis, with area, mean gradient and velocity all being in the severe range on echocardiogram. STS PROM: 8.1% We had a nice discussion regarding the indications for intervention on their valvular disease. This included percutaneous as well as open surgical approaches. I do believe that a catheter based approach is in his best interest, given his age and co-morbidities. He understands that the goal of this procedure will be to relieve symptoms if present, preserve left ventricular function, and prolong life. I discussed the specific risks of vascular access bleeding, stroke and need for pacemaker placement. In further evaluation we will obtain Dental evaluation With regards to their surgical fitness, he is a High risk candidate. If there is compromise of aortic root anatomy/geometry, I would not offer them an open surgical approach. If there is compromise of hisvascular access I would prefer alternative access approach to surgical aortic valve replacement. Because of his risk I would, offer them emergent sternotomy if needed. [1] Past Medical History: Diagnosis Date Acute on chronic urinary retention Aortic valve stenosis moderate to severe, non Rheumatic BPH (benign prostatic hyperplasia) Bradycardia recent ED admit for UTI and Bradycardia-Hrin the 30's and lightheaded, wore holter with results in Epic 03/05/25. Coreg dc'd. Patient denies any further issues Chronic GERD 02/21/2023 Chronic kidney disease (CKD), stage IV (severe) (Multi) 12/08/2024 Chronic UTI CKD (chronic kidney disease) follows with nephrology, BUN/CR= 42/2.25 &GFR=28 on 03/09/25 Constipation Enlarged prostate with urinary obstruction 02/05/2025 Erectile dysfunction 10/01/2024 GERD (gastroesophageal reflux disease) Gout feet, no recent flare ups Heart failure (Multi) History of echocardiogram 10/20/2024 Hyperlipidemia Hypertension Indwelling urinary catheter present Lesion of bladder bladder tumor Neuropathy pain/spasms to feet per patient, Neurotin helping Nocturia 02/21/2023 Nonrheumatic aortic valve stenosis 10/31/2024 OA (osteoarthritis) Cronic pain in right shoulder Obesity 02/21/2023 Pre-operative clearance :case has been extensively discussed with Urology,Ideally prefer 6mo waiting after his stents for procedure, but given patients discomfort with de oliveira and already several months dealing with the de oliveira-related symptoms, it would be reasonable to proceed on 03/30/2025 (3 months after stents). Plavix should be dc'd 5 days prior to surgery&resumed 24-48 hours after the procedure. Primary osteoarthritis of right shoulder 08/28/2023 Seasonal allergies Type 2 diabetes mellitus (Multi) A1C= 6.6% on 03/09/25 Type 2 diabetes mellitus with chronic kidney disease, with long-term current use of insulin (Multi) 09/09/2024 [2] Past Surgical History: Procedure Laterality Date APPENDECTOMY 09/26/2019 Appendectomy CARDIAC CATHETERIZATION N/A 01/19/2025 PCI to prox-mid LAD using 2 WILLIE 3.0/38mm and 3.0/8mm (post-dil 3.5mm NC balloon) guided by IVUS. CATARACT EXTRACTION 09/26/2019 Cataract surgery COLONOSCOPY 09/26/2019 Colonoscopy MR HEAD ANGIO WO IV CONTRAST 03/28/2023 MR HEAD ANGIO WO IV CONTRAST 03/28/2023 [facility] MRI MR NECK ANGIO WO IV CONTRAST 03/28/2023 MR NECK ANGIO WO IV CONTRAST 03/28/2023 [facility] MRI [3] Family History Problem Relation Name Age of Onset Heart attack Mother Cancer Mother Heart disease Father Heart disease Brother Heart attack Child Brain cancer Child Diabetes type II Other OTHER Breast cancer Other OTHER [4] Allergies Allergen Reactions Ecwierf-Yzi-Mkr Reductase Inhibitors Swelling Iodine Rash Skin irritation with topical Iodine antiseptics [5] Outpatient Encounter Medications as of 07/01/2025 Medication Sig Dispense Refill acetaminophen (Tylenol 8 HOUR) 650 mg ER tablet Take 1 tablet (650 mg) by mouth every 8 hours if needed for mild pain (1 - 3). Do not crush, chew, or split. allopurinol (Zyloprim) 300 mg tablet Take 1 tablet by mouth once daily 90 tablet 0 amLODIPine (Norvasc) 10 mg tablet Take 1 tablet (10 mg) by mouth once daily. 90 tablet 3 aspirin 81 mg chewable tablet Chew 1 tablet (81 mg) once daily. 30 tablet 11 blood sugar diagnostic (Blood Glucose Test) 1 strip early in the morning.. 100 strip 11 bumetanide (Bumex) 0.5 mg tablet Take 1 tablet (0.5 mg) by mouth once daily. 30 tablet 11 cetirizine (ZyrTEC) 5 mg tablet Take 2 tablets (10 mg) by mouth once daily. clopidogrel (Plavix) 75 mg tablet Take 1 tablet (75 mg) by mouth once daily. Do not fill before January 26, 2025. 90 tablet 3 empagliflozin (Jardiance) 10 mg tablet Take 1 tablet (10 mg) by mouth once daily. 30 tablet 5 ezetimibe (Zetia) 10 mg tablet Take 1 tablet (10 mg) by mouth once daily. 30 tablet 11 gabapentin (Neurontin) 300 mg capsule Take 1 capsule (300 mg) by mouth 2 times a day. 180 capsule 1 glucosamine/chondr hogue A sod (OSTEO BI-FLEX ORAL) Take 1 capsule by mouth once daily. insulin glargine-lixisenatide (Soliqua 100/33) 100 unit-33 mcg/mL insulin pen Inject 19 Units under the skin once daily. 15 mL 11 pen needle, diabetic 31 gauge x 5/16" needle 1 each once daily. 100 each 3 No facility-administered encounter medications on file as of 07/01/2025. documented in this encounter [facility] Work Phone: 07-13-2025 Hospital Discharge instructions Christian Pulido, DIESEL SERVICE APPRENTICE-MINE ENGINEERING SUPERVISOR - 07/13/2025 10:56 AM EDT Images from the original note were not included. #### POST VALVE PROCEDURE DISCHARGE INSTRUCTIONS #### MONITORING - Vitals/Weights Weigh yourself daily (should be first thing in A.M.) Take/record your heart rate and blood pressure 2 times a day (at least 60-90 mins AFTER you take your meds) Please keep a written record of all of your vitals and have these readings available at follow-up appointments Activity Restrictions NO DRIVING - for 1 WEEK from your procedure date (07/13/2025) NO LIFTING/PULLING/PUSHING GREATER THAN 10 POUNDS for 1 WEEK from your procedure date NEEDED Post-procedure test Echocardiogram (1 month, must be between 23-75 days) Please call and schedule this ECHO at your LOCAL center VALVE TEAM FOLLOW-UP The 1 month and 1 year follow-up appointments with one of the a Structural Heart AMBULANCE ASSISTANT's (listed as [facility] BRAD), has already been scheduled for you. (See appointments) *-*-* IF YOU NEED TO CHANGE YOUR APPOINTMENT TIME/DATE, PLEASE CALL Please make the following appointments if not already scheduled: PCP within 7-14 days of discharge Primary Qa Specialist in 6-10 weeks DENTAL No elective dental procedures or cleanings for 3 months post procedure - You will need dental prophylaxis (oral antibiotic) prior to dental work/cleanings for life Please call the STRUCTURAL HEART TEAM LINE if you have any questions or concerns - [phone] (M-F 9am-4pm) On-Call Poultry Farm Worker: (ONLY for urgent issues on nights/weekends/holidays) CALL PROVIDER IF: - Breathing faster than normal. - Breathing harder than normal or having retractions. - Fever of 100.4 F (38 C) or higher. - Chills - Drinking less than normal. - Urinating less than normal, over 1 day. - Acting very sleepy and difficult to awaken. - Vomiting (throwing up) and not able to eat or drink for 12 hours. - 3 or more loose, watery bowel movements in 24 hours (diarrhea). -Any new concerning symptoms. - If you develop difficulty breathing, rash, hives, severe nausea, vomiting, light-headedness or any signs of infection, immediately contact your doctor and go to the nearest emergency room. ##### MISC. HOME-GOING INFO ##### - DO NOT drink any alcoholic drinks or take any non-prescriptive medications that contain alcohol for the first 24 hours. - DO NOT make any important decisions for the first 24 hours. ACTIVITY: - You are advised to go directly home from the hospital. - DO NOT lift anything heavier than 10 pounds for one week, this allows for proper healing of the groin. - No excessive exercise or treadmill use for one week. You may walk and do stairs, slowly. - No sexual activities for 24 hours after you arrive home. WOUND CARE: - If slight bleeding should occur at site, lie down and have someone apply firm pressure just above the puncture site for 5 minutes. If it continues or is profuse, call 911. Always notify your doctor if bleeding occurs. - Keep site clean and dry. Let air dry or you may use a simple bandaid. - Gently cleanse the puncture site in your groin with soap and water only. - You may experience some tenderness, bruising or minimal inflammation. If you have any concerns, you may contact the Yield Improvement Engineer or if any of these symptoms become excessive, contact your parking meter attendant or go to the emergency room. - No tub baths, soaking, or swimming for one week. - May shower the next day after your procedure. DIET: - You may resume your normal diet. However, be mindful of your sodium intake. Ideally you should try to limit your daily intake of sodium to 2-3g a day HEART FAILURE SPECIFIC INSTRUCTIONS: - CALL 911 IF YOU HAVE ANY OF THE SIGNS AND SYMPTOMS OF HEART FAILURE: 1. Chest pain 2. Significant Shortness of breath 3. Fainting. - Notify your physician immediately if you have shortness of breath; weight gain of 3 lbs. or more; fatigue and loss of energy; swelling of lower extremities or abdomen; dizziness or fainting; change of appetite; and frequent coughing. - Daily weight on the same scale, same time after voiding and before eating. - Maintain daily weight log. ~~~~~~~~~~~~~~~~~~~~~~~~~~~~~~~~~ ~~~~~~~~~~~~~~~~~~~~~~~~~~~~~~~~~ ~~~~~~~~~~~~~~~~~~~~~~~~~~~~~~~~~ ~ You are being discharge with a urinary catheter due to acute urinary retention. You have been started on Flomax to help improve urine flow. The catheter can be managed and removed by the providers at the rehab facility. A referral to urology has also been placed if symptoms do not resolve. It was a pleasure to have met and cared for you! The following attachments cannot be sent through Care Everywhere.STROKE OVERVIEW HANDOUTHow to Care for Your De Oliveira Catheter (Israeli)documented in this encounter [facility] Work Phone: 07-01-2025 History of Present illness Narrative Chief Complaint Dyspnea and Fatigue HPI: Mr. Kitty Vergara is an 84 y.o. male, who is a patient of Dr. Daniel Almanzar MD I have been asked to see them by Nima Lozano to evaluate aortic stenosis. He has functional decline over the last six months or so. He has had two admissions to the hospital this year, one in September for syncope and another in February for symptomatic bradycardia. He has undergone PCI to the LAD this year earlier as well. He is noticing more dyspnea and fatigue with waxing and taking care of his car. Medical History[1] Surgical History[2] Family History[3] Social History Socioeconomic History Marital status: Spouse name: Adriel Number of children: Not on file Years of education: Not on file Highest education level: Not on file Occupational History Not on file Tobacco Use Smoking status: Former Current packs/day: 0.00 Types: Cigarettes Quit date: 1988 Years since quittin.7 Passive exposure: Never Smokeless tobacco: Never Vaping Use Vaping status: Never Used Substance and Sexual Activity Alcohol use: Not Currently Drug use: Never Sexual activity: Defer Other Topics Concern Not on file Social History Narrative Not on file Social Drivers of Health Financial Resource Strain: Low Risk (03/05/2025) Overall Financial Resource Strain (CARDIA) Difficulty of Paying Living Expenses: Not hard at all Food Insecurity: No Food Insecurity (03/04/2025) Hunger Vital Sign Worried About Running Out of Food in the Last Year: Never true Ran Out of Food in the Last Year: Never true Transportation Needs: No Transportation Needs (04/09/2025) OASIS A1250: Transportation Lack of Transportation (Medical): No Lack of Transportation (Non-Medical): No Patient Unable or Declines to Respond: No Recent Concern: Transportation Needs - Unmet Transportation Needs (03/07/2025) OASIS A1250: Transportation Lack of Transportation (Medical): No Lack of Transportation (Non-Medical): Yes Patient Unable or Declines to Respond: No Physical Activity: Not on file Stress: Not on file Social Connections: Feeling Socially Integrated (04/09/2025) OASIS D0700: Social Isolation Frequency of experiencing loneliness or isolation: Never Recent Concern: Social Connections - Feeling Somewhat Isolated (03/07/2025) OASIS D0700: Social Isolation Frequency of experiencing loneliness or isolation: Sometimes Intimate Partner Violence: Not At Risk (03/04/2025) Humiliation, Afraid, Rape, and Kick questionnaire Fear of Current or Ex-Partner: No Emotionally Abused: No Physically Abused: No Sexually Abused: No Housing Stability: Low Risk (03/05/2025) Housing Stability Vital Sign Unable to Pay for Housing in the Last Year: No Number of Times Moved in the Last Year: 0 Homeless in the Last Year: No RX Allergies[4] Encounter Medications[5] Physical Exam Constitutional: Appearance: Normal appearance. HENT: Head: Normocephalic. Eyes: General: No scleral icterus. Pupils: Pupils are equal, round, and reactive to light. Cardiovascular: Rate and Rhythm: Normal rate and regular rhythm. Comments: IV/ ELISHA, high pitch, preserved S2 Pulmonary: Breath sounds: Normal breath sounds. Abdominal: Palpations: Abdomen is soft. Musculoskeletal: General: Normal range of motion. Cervical back: Normal range of motion. Right lower leg: Edema present. Skin: General: Skin is warm and dry. Neurological: Mental Status: He is alert and oriented to person, place, and time. Lab Results Component Value Date WBC 9.6 03/09/2025 HGB 11.7 (L) 03/09/2025 HCT 36.7 (L) 03/09/2025 MCV 94.3 03/09/2025 PLT 184 03/09/2025 Lab Results Component Value Date GLUCOSE 115 (H) 03/09/2025 CALCIUM 8.8 03/09/2025 NA 139 03/09/2025 K 4.4 03/09/2025 CO2 24 03/09/2025 CL 105 03/09/2025 BUN 42 (H) 03/09/2025 CREATININE 2.25 (H) 03/09/2025 Encounter Date: 03/04/25 ECG 12 Lead Result Value Ventricular Rate 53 Atrial Rate 53 TX Interval 278 QRS Duration 88 QT Interval 496 QTC Calculation(Bazett) 465 P Goltry 83 R Goltry 2 T Goltry 105 QRS Count 9 Q Onset 218 P Onset 79 P Offset 138 T Offset 466 QTC Fredericia 476 Narrative Sinus bradycardia with 1st degree AV block Minimal voltage criteria for LVH, may be normal variant ( R in aVL ) Abnormal QRS-T angle, consider primary T wave abnormality Abnormal ECG When compared with ECG of 04-MAR-2025 12:52, (unconfirmed) Sinus rhythm has replaced Atrial fibrillation QT has lengthened Confirmed by Nima Putnam ([id number]) on 03/06/2025 12:22:40 PM ECHO 10/20/24: Left ventricle is thickened, with moderate left ventricular hypertrophy. Estimated ejection fraction 60 to 65%. The right ventricle is normal in size and function. The aortic valve is heavily calcified with decreased excursion. Aortic valve velocity is 4.2 m/s, mean aortic valve gradient 44 mmHg, aortic valve area is calculated 0.87 cm . The mitral valve is normal with mild left regurgitation. Left atrium is dilated at 5.9 cm. Left heart catheterization 01/19/25: Coronary circulation is right dominant, there is significant coronary calcification in the LAD approximately 80% this was fixed with a stent to the left anterior descending coronary artery. There is also moderate stenosis of the left circumflex which on physiologic measurement was nonsignificant. CT-TAVR protocol dated 06/16/2025: The bilateral femoral artery access is good. This is a noncontrast study so annular measurement is difficult. The sinuses of Valsalva measure 36 x 37 x 37. The sinotubular junction is 33 mm. The left main coronary artery height is 16 mm, the right main coronary artery height is 9 mm. Holter monitor dated March 05 through March 11, 2025 shows no burden of atrial fibrillation, there was some sinus bradycardia with first-degree AV block. Assessment and Plan: Mr. Kitty Vergara is an 84 y.o. male who presents with symptomatic severe aortic stenosis. This is associated with HTN, HLD, DMII; and in the setting of BPH, GERD, CKD-IV, Gout, OA, and obesity. Their symptoms include Dyspnea and Fatigue. He has NYHA II heart failure symptoms. Their imaging is consistent with symptomatic severe aortic stenosis, with area, mean gradient and velocity all being in the severe range on echocardiogram. STS PROM: 8.1% We had a nice discussion regarding the indications for intervention on their valvular disease. This included percutaneous as well as open surgical approaches. I do believe that a catheter based approach is in his best interest, given his age and co-morbidities. He understands that the goal of this procedure will be to relieve symptoms if present, preserve left ventricular function, and prolong life. I discussed the specific risks of vascular access bleeding, stroke and need for pacemaker placement. In further evaluation we will obtain Dental evaluation With regards to their surgical fitness, he is a High risk candidate. If there is compromise of aortic root anatomy/geometry, I would not offer them an open surgical approach. If there is compromise of hisvascular access I would prefer alternative access approach to surgical aortic valve replacement. Because of his risk I would, offer them emergent sternotomy if needed. [1] Past Medical History: Diagnosis Date Acute on chronic urinary retention Aortic valve stenosis moderate to severe, non Rheumatic BPH (benign prostatic hyperplasia) Bradycardia recent ED admit for UTI and Bradycardia-Hrin the 30's and lightheaded, wore holter [facility] 03/05/25. Coreg dc'd. Patient denies any further issues Chronic GERD 02/21/2023 Chronic kidney disease (CKD), stage IV (severe) (Multi) 12/08/2024 Chronic UTI CKD (chronic kidney disease) follows with nephrology, BUN/CR= 42/2.25 &GFR=28 on 03/09/25 Constipation Enlarged prostate with urinary obstruction 02/05/2025 Erectile dysfunction 10/01/2024 GERD (gastroesophageal reflux disease) Gout feet, no recent flare ups Heart failure (Multi) History of echocardiogram 10/20/2024 Hyperlipidemia Hypertension Indwelling urinary catheter present Lesion of bladder bladder tumor Neuropathy pain/spasms to feet per patient, Neurotin helping Nocturia 02/21/2023 Nonrheumatic aortic valve stenosis 10/31/2024 OA (osteoarthritis) Cronic pain in right shoulder Obesity 02/21/2023 Pre-operative clearance :case has been extensively discussed with Urology,Ideally prefer 6mo waiting after his stents for procedure, but given patients discomfort with de oliveira and already several months dealing with the de oliveira-related symptoms, it would be reasonable to proceed on 03/30/2025 (3 months after stents). Plavix should be dc'd 5 days prior to surgery&resumed 24-48 hours after the procedure. Primary osteoarthritis of right shoulder 08/28/2023 Seasonal allergies Type 2 diabetes mellitus (Multi) A1C= 6.6% on 03/09/25 Type 2 diabetes mellitus with chronic kidney disease, with long-term current use of insulin (Multi) 09/09/2024 [2] Past Surgical History: Procedure Laterality Date APPENDECTOMY 09/26/2019 Appendectomy CARDIAC CATHETERIZATION N/A 01/19/2025 PCI to prox-mid LAD using 2 WILLIE 3.0/38mm and 3.0/8mm (post-dil 3.5mm NC balloon) guided by IVUS. CATARACT EXTRACTION 09/26/2019 Cataract surgery COLONOSCOPY 09/26/2019 Colonoscopy MR HEAD ANGIO WO IV CONTRAST 03/28/2023 MR HEAD ANGIO WO IV CONTRAST 03/28/2023 [facility] MRI MR NECK ANGIO WO IV CONTRAST 03/28/2023 MR NECK ANGIO WO IV CONTRAST 03/28/2023 [facility] MRI [3] Family History Problem Relation Name Age of Onset Heart attack Mother Cancer Mother Heart disease Father Heart disease Brother Heart attack Child Brain cancer Child Diabetes type II Other OTHER Breast cancer Other OTHER [4] Allergies Allergen Reactions Wmgsrhr-Dju-Aoz Reductase Inhibitors Swelling Iodine Rash Skin irritation with topical Iodine antiseptics [5] Outpatient Encounter Medications as of 07/01/2025 Medication Sig Dispense Refill acetaminophen (Tylenol 8 HOUR) 650 mg ER tablet Take 1 tablet (650 mg) by mouth every 8 hours if needed for mild pain (1 - 3). Do not crush, chew, or split. allopurinol (Zyloprim) 300 mg tablet Take 1 tablet by mouth once daily 90 tablet 0 amLODIPine (Norvasc) 10 mg tablet Take 1 tablet (10 mg) by mouth once daily. 90 tablet 3 aspirin 81 mg chewable tablet Chew 1 tablet (81 mg) once daily. 30 tablet 11 blood sugar diagnostic (Blood Glucose Test) 1 strip early in the morning.. 100 strip 11 bumetanide (Bumex) 0.5 mg tablet Take 1 tablet (0.5 mg) by mouth once daily. 30 tablet 11 cetirizine (ZyrTEC) 5 mg tablet Take 2 tablets (10 mg) by mouth once daily. clopidogrel (Plavix) 75 mg tablet Take 1 tablet (75 mg) by mouth once daily. Do not fill before January 26, 2025. 90 tablet 3 empagliflozin (Jardiance) 10 mg tablet Take 1 tablet (10 mg) by mouth once daily. 30 tablet 5 ezetimibe (Zetia) 10 mg tablet Take 1 tablet (10 mg) by mouth once daily. 30 tablet 11 gabapentin (Neurontin) 300 mg capsule Take 1 capsule (300 mg) by mouth 2 times a day. 180 capsule 1 glucosamine/chondr hogue A sod (OSTEO BI-FLEX ORAL) Take 1 capsule by mouth once daily. insulin glargine-lixisenatide (Soliqua 100/33) 100 unit-33 mcg/mL insulin pen Inject 19 Units under the skin once daily. 15 mL 11 pen needle, diabetic 31 gauge x 5/16" needle 1 each once daily. 100 each 3 No facility-administered encounter medications on file as of 07/01/2025. documented in this encounter [facility] Work Phone: 04-21-2025 History of Present illness Narrative Chief Complaint Patient presents with Follow-up SOB / fatigue x 3 months. EKG 03/05/25 HPI: I was requested by Dr. Almanzar to evaluate this patient in consultation for cardiac assessment. Mr. Kitty Vergara is a 84 y.o. year old former smoker diabetic male patient with prior medical history significant for moderate to severe aortic stenosis, CAD S/P PCI to LAD (12/2024),hypertension, diabetes, hyperlipidemia, GERD, neuropathy, Gout, CKD stage III, edema R leg, indwelling catheter. He was brought to ED [facility] on 10/18/2024 after losing his consciouness. He did not have the strength to get himself back up. Family states this has been a gradual decline over time. He endorses shortness of breath on exertion. Denied chest pain, palpitations, leg edema, lightheadedness, headaches, fever, chills, orthopnea or paroxysmal nocturnal dyspnea. EMS reported bradycardia, hypotension and hypoxia. Treated with IV fluids and nasal cannula oxygen. He improved after IV hydration, with recovery of his heart rate to 60bpm and improvement in his BP. EKG showed bradycardic sinus rhythm with 1st degree AV block and no signs of acute ischemic changes. Trop 11. BNP 321. Crea 3.1. He has been admitted for clinical compensation. He was discharged uneventfully. Echocardiogram showed moderate to severe aortic stenosis. Left heart catheterization (12/2024) Single vessel coronary artery disease Prox-mid LAD diffuse calcified 80% lesion Prox 1st OM 60% lesion RCA with irregularities Preserved LV systolic function Peak to peak gradient ~20mmHg, consistent with moderate aortic stenosis PWP 25, PA 46/23 (32), RV 51/12 (20), RA 17mmHg; LVeDP 19mmHg; CO 7.5, CI 3.4 S/P successful DFR to prox 1st OM resulting 0.98, deemed to be non-ischemic, therefore we have opted to defer the treatment for this lesion. S/P successful DFR to mid LAD resulting 0.86, deemed to be ischemic, therefore we have opted to proceed with the treatment for this lesion. S/P Successful PCI to prox-mid LAD using 2 WILLIE 3.0/38mm and 3.0/8mm (post-dil 3.5mm NC balloon) guided by IVUS Had a new admission for symptomatic bradycardia.He presented to ED [facility] on 03/04/2025 complaining of dizziness, lightheadedness and fatigue for the past day. He had De Oliveira catheter and had been treated with Cipro for the past 4 days prior to admission. He endorsed that he felt those symptoms while seating, but denied losing consciousness. He indeed had been feeling dizzy for the past 3 days. He is also on beta-jami. Notably, he had been previously brought to ED [facility] on 10/18/2024 after losing his consciouness. He denied chest pain, shortness of breath, palpitations, leg edema, fever, chills, bleeding, orthopnea, paroxysmal nocturnal dyspnea or syncope. EKG showing sinus bradycardia ~50bpm with non-specific ST-T changes. Crea 2.3, BUN 41, Hb 11.3, trop 11 - 13, BNP 321. Patient has been admitted for clinical compensation and was discharged uneventfully. He underwent successful Urological procedure with removal of De Oliveira catheter. He will now be referred for Structural Heart team assessment for TAVR. Past Medical History Medical History[1] Past Surgical History Surgical History[2] Past Family History Family History[3] Allergy History Allergies[4] Past Social History Social History[5] Tobacco Use History[6] Objective Data: Last Recorded Vitals: Vitals: 04/21/25 1353 BP: 126/72 BP Location: Right arm Pulse: 77 Weight: 104 kg (229 lb) Height: 1.778 m (5' 10") Last Labs: CBC - 03/09/2025: 8:32 AM 9.6 11.7 184 36.7 CMP - 03/09/2025: 8:32 AM 8.8 6.8 18 --- 0.7 3.2 3.8 12 91 PTT - No results in last year. _ _ _ TROPHS Date/Time Value Ref Range Status 03/04/2025 02:12 PM 11 0 - 20 ng/L Final 03/04/2025 01:10 PM 13 0 - 20 ng/L Final 10/18/2024 03:57 PM 11 0 - 20 ng/L Final BNP Date/Time Value Ref Range Status 10/18/2024 03:57 PM 321 0 - 99 pg/mL Final HGBA1C Date/Time Value Ref Range Status 03/09/2025 08:32 AM 6.6 <5.7 % Final Comment: For someone without known diabetes, a hemoglobin A1c value of 6.5% or greater indicates that they may have diabetes and this should be confirmed with a follow-up test. For someone with known diabetes, a value <7% indicates that their diabetes is well controlled and a value greater than or equal to 7% indicates suboptimal control. A1c targets should be individualized based on duration of diabetes, age, comorbid conditions, and other considerations. Currently, no consensus exists regarding use of hemoglobin A1c for diagnosis of diabetes for children. 09/05/2024 07:38 AM 7.2 See comment % Final 05/08/2024 07:33 AM 7.3 see below % Final LDLCALC Date/Time Value Ref Range Status 09/26/2024 07:54 AM 42 <=99 mg/dL Final Comment: Near Borderline AGE Desirable Optimal High High Very High 0-19 Y 0 - 109 --- 110-129 >/= 130 ---- 20-24 Y 0 - 119 --- 120-159 >/= 160 ---- >24 Y 0 - 99 100-129 130-159 160-189 >/=190 VLDL Date/Time Value Ref Range Status 09/26/2024 07:54 AM 60 0 - 40 mg/dL Final 03/29/2022 07:54 AM SEE COMMENT 0 - 40 mg/dL Final Comment: Unable to calculate VLDL. 03/29/2020 08:37 AM SEE COMMENT 0 - 40 mg/dL Final Comment: Unable to calculate VLDL. Patient Medications: Encounter Medications[7] Physical Exam: General: alert and in no acute distress HEENT: NC/AT; EOMI; PERRLA, external ear is normal Neck: supple; trachea midline; no masses; no JVD Chest: clear breath sounds bilaterally; no wheezing Cardio: regular rhythm, S1S2 normal, systolic murmur 3+/6+ RUSB Abdomen: Soft, non-tender, non-distension, no organomegaly. Good healing access site Extremities: Edema 1+/3+ R leg Past Cardiology Results (Last 3 Years): EKG: ECG 12 Lead 03/05/2025 ECG 12 lead 03/04/2025 ECG 12 lead 03/04/2025 ECG 12 lead STAT 01/19/2025 Electrocardiogram 12 Lead 01/19/2025 ECG 12 lead (Clinic Performed) 12/08/2024 ECG 12 lead ECG 12 lead 05/29/2024 Echo: Echo Results: Transthoracic Echo (TTE) Complete With Contrast 10/20/2024 [place] [address] [phone], TRANSTHORACIC ECHOCARDIOGRAM REPORT Patient Name: KITTY VERGARA Reading Physician: [id number] Santiago Marquez MD Study Date: 10/20/2024 Ordering Provider: [id number] ZANA MATHEWS MRN/PID: [id number] Fellow: Nurse: Ayaka Hernandez RN Date of /Age: 1007/06/1940 Manager Garden: Mary galeano RVT, RCS Gender Assigned at M Additional Staff: : Height: 177.80 cm Admit Date: 10/18/2024 Weight: 104.33 kg Admission Status: Inpatient - Routine BSA / BMI: 2.22 m2 / 33.00 Department Location: [address] kg/m2 Blood Pressure: 160 /86 mmHg Study Type: TRANSTHORACIC ECHO (TTE) COMPLETE Diagnosis/ICD: Bradycardia, unspecified-R00.1; Unspecified atrial fibrillation-I48.91 Indication: Francisco,AFib CPT Codes: Echo Complete w Full Doppler-[id number] Patient History: Pertinent History: Previous echo 03-28-23. Study Detail: The following Echo studies were performed: 2D, M-Mode, Doppler and color flow. Definity used as a contrast agent for endocardial border definition. A bubble study was not performed. The patient was awake. PHYSICIAN INTERPRETATION: Left Ventricle: Left ventricular ejection fraction is normal, calculated by Villalobos's biplane at 67%. The patient is in atrial fibrillation which may influence the estimate of left ventricular function and transvalvular flows. There are no regional wall motion abnormalities. The left ventricular cavity size is normal. There is mild increased septal and mildly increased posterior left ventricular wall thickness. There is left ventricular concentric remodeling. Spectral Doppler shows a Grade II (pseudonormal pattern) of left ventricular diastolic filling with an elevated left atrial pressure. Left Atrium: The left atrium is normal in size. A bubble study using agitated saline was not performed. Right Ventricle: The right ventricle is normal in size. There is normal right ventricular global systolic function. Right Atrium: The right atrium is normal in size. Aortic Valve: The aortic valve is trileaflet. There is evidence of moderate to severe aortic valve stenosis. The aortic valve dimensionless index is 0.23. There is no evidence of aortic valve regurgitation. The peak instantaneous gradient of the aortic valve is 73 mmHg. The mean gradient of the aortic valve is 44 mmHg. Mitral Valve: The mitral valve is normal in structure. There is mild mitral valve regurgitation. Tricuspid Valve: The tricuspid valve is structurally normal. There is trace tricuspid regurgitation. Pulmonic Valve: The pulmonic valve is not well visualized. There is no indication of pulmonic valve regurgitation. Pericardium: No pericardial effusion noted. Aorta: The aortic root is normal. CONCLUSIONS: 1. Poorly visualized anatomical structures due to suboptimal image quality. 2. Left ventricular ejection fraction is normal, calculated by Villalobos's biplane at 67%. 3. Spectral Doppler shows a Grade II (pseudonormal pattern) of left ventricular diastolic filling with an elevated left atrial pressure. 4. There is normal right ventricular global systolic function. 5. Moderate to severe aortic valve stenosis. 6. Compared to prior TTE dated 03/28/2023 - aortic stenosis has progressed and now appears to be moderate-severe. 7. The patient is in atrial fibrillation which may influence the estimate of left ventricular function and transvalvular flows. QUANTITATIVE DATA SUMMARY: 2D MEASUREMENTS: Normal Ranges: Ao Root d: 3.10 cm (2.0-3.7cm) LAs: 3.70 cm (2.7-4.0cm) IVSd: 1.35 cm (0.6-1.1cm) LVPWd: 1.38 cm (0.6-1.1cm) LVIDd: 4.65 cm (3.9-5.9cm) LVIDs: 3.06 cm LV Mass Index: 113.5 g/m2 LV % FS 34.2 % LA VOLUME: Normal Ranges: LA Vol A4C: 31.2 ml (22+/-6mL/m2) LA Vol A2C: 54.6 ml LA Vol BP: 43.6 ml LA Vol Index A4C: 14.1ml/m2 LA Vol Index A2C: 24.7 ml/m2 LA Vol Index BP: 19.7 ml/m2 LA Area A4C: 14.7 cm2 LA Area A2C: 18.4 cm2 LA Major Goltry A4C: 5.9 cm LA Major Goltry A2C: 5.3 cm LA Volume Index: 24.0 ml/m2 LA Vol A4C: 31.4 ml LA Vol A2C: 53.3 ml LA Vol Index BSA: 19.1 ml/m2 M-MODE MEASUREMENTS: Normal Ranges: AoV Exc: 0.90 cm (1.5-2.5cm) AORTA MEASUREMENTS: Normal Ranges: AoV Exc: 0.90 cm (1.5-2.5cm) LV SYSTOLIC FUNCTION BY 2D PLANIMETRY (MOD): Normal Ranges: EF-A4C View: 63 % (>=55%) EF-A2C View: 71 % EF-Biplane: 67 % LV EF Reported: 67 % LV DIASTOLIC FUNCTION: Normal Ranges: MV Peak E: 1.26 m/s (0.7-1.2 m/s) MV Peak A: 1.18 m/s (0.42-0.7 m/s) E/A Ratio: 1.07 (1.0-2.2) MV e' 0.089 m/s (>8.0) MV lateral e' 0.07 m/s MV medial e' 0.11 m/s E/e' Ratio: 14.21 (<8.0) MITRAL VALVE: Normal Ranges: MV DT: 289 msec (150-240msec) MITRAL INSUFFICIENCY: Normal Ranges: MR Vmax: 351.00 cm/s AORTIC VALVE: Normal Ranges: AoV Vmax: 4.26 m/s (<=1.7m/s) AoV Peak P.6 mmHg (<20mmHg) AoV Mean P.0 mmHg (1.7-11.5mmHg) LVOT Max Clyde: 1.10 m/s (<=1.1m/s) AoV VTI: 104.00 cm (18-25cm) LVOT VTI: 23.70 cm LVOT Diameter: 2.20 cm (1.8-2.4cm) AoV Area, VTI: 0.87 cm2 (2.5-5.5cm2) AoV Area,Vmax: 0.98 cm2 (2.5-4.5cm2) AoV Dimensionless Index: 0.23 RIGHT VENTRICLE: RV Basal 3.65 cm RV Mid 2.11 cm RV Major 6.9 cm TAPSE: 20.9 mm TRICUSPID VALVE/RVSP: Normal Ranges: Peak TR Velocity: 3.26 m/s RV Syst Pressure: 46 mmHg (< 30mmHg) PULMONIC VALVE: Normal Ranges: PV Accel Time: 106 msec (>120ms) PV Max Clyde: 2.3 m/s (0.6-0.9m/s) PV Max P.3 mmHg [id number] Santiago Marquez MD Electronically signed on 10/20/2024 at 9:11:55 AM Final Cath: Cardiac Catheterization Procedure 01/19/2025 CV NCDR CATHPCI V5 COLLECTION FORM Stress Test: No results found for this or any previous visit from the past 1095 days. Cardiac Imaging: No results found for this or any previous visit from the past 1095 days. Assessment/Plan Mr. Kitty Vergara is a 84 y.o. year old former smoker diabetic male patient with prior medical history significant for moderate to severe aortic stenosis, hypertension, diabetes, hyperlipidemia, GERD, neuropathy, Gout, CKD stage III, edema R leg. He was brought to ED [facility] on 10/18/2024 after losing his consciouness. He did not have the strength to get himself back up. Family states this has been a gradual decline over time. He endorses shortness of breath on exertion. Denied chest pain, palpitations, leg edema, lightheadedness, headaches, fever, chills, orthopnea or paroxysmal nocturnal dyspnea. EMS reported bradycardia, hypotension and hypoxia. Treated with IV fluids and nasal cannula oxygen. He improved after IV hydration, with recovery of his heart rate to 60bpm and improvement in his BP. EKG showed bradycardic sinus rhythm with 1st degree AV block and no signs of acute ischemic changes. Trop 11. BNP 321. Crea 3.1. He has been admitted for clinical compensation. He was discharged uneventfully. Echocardiogram showed moderate to severe aortic stenosis. Assessment # Moderate to severe aortic stenosis - Lost his consciousness, bradycardia and hypotension in the setting of dehydration. - Reports shortness of breath on exertion. - Trop 11. - BNP 321. - Echo (09/2024): 1. Poorly visualized anatomical structures due to suboptimal image quality. 2. Left ventricular ejection fraction is normal, calculated by Villalobos's biplane at 67%. 3. Spectral Doppler shows a Grade II (pseudonormal pattern) of left ventricular diastolic filling with an elevated left atrial pressure. 4. There is normal right ventricular global systolic function. 5. Moderate to severe aortic valve stenosis. 6. Compared to prior TTE dated 03/28/2023 - aortic stenosis has progressed and now appears to be moderate-severe. 7. The patient is in atrial fibrillation which may influence the estimate of left ventricular function and transvalvular flows. - New EKG showing sinus rhythm. - 7-day holter monitor (03/2025): * The predominant rhythm was Sinus Rhythm. * The Maximum Heart Rate recorded was 106 BPM, 09: 05 AM , the Minimum Heart Rate recorded was 53 BPM, 06: 36 AM and the Average Heart Rate was 72 BPM. * There were 837 VE beats with a burden of < 1 % . * There were 2, 643 SVE beats with a burden of 1 % . * There were 2 manually detected events. - Right and Left Heart Catheterization (01/19/2025): Single vessel coronary artery disease Prox-mid LAD diffuse calcified 80% lesion Prox 1st OM 60% lesion RCA with irregularities Preserved LV systolic function Peak to peak gradient ~20mmHg, consistent with moderate aortic stenosis PWP 25, PA 46/23 (32), RV 51/12 (20), RA 17mmHg; LVeDP 19mmHg; CO 7.5, CI 3.4 S/P successful DFR to prox 1st OM resulting 0.98, deemed to be non-ischemic, therefore we have opted to defer the treatment for this lesion. S/P successful DFR to mid LAD resulting 0.86, deemed to be ischemic, therefore we have opted to proceed with the treatment for this lesion. S/P Successful PCI to prox-mid LAD using 2 WILLIE 3.0/38mm and 3.0/8mm (post-dil 3.5mm NC balloon) guided by IVUS - Keep ASA 81mg daily, Clopidogrel, beta-jami. - Patient intolerant to statins. - Cardiac rehab. - He underwent successful Urological procedure with removal of De Oliveira catheter. He will now be referred for Structural Heart team assessment for TAVR. - Bumex 0.5mg daily for R leg swelling. - We will establish him with Structural Heart team for assessment of aortic stenosis with potential TAVR procedure. - Follow up in 6 months. # CKD - Crea 3.1 --> 2.66 --> 2.29 - Indwelling catheter. May need Urological procedure. - Would suggest follow up with Nephrology / Urology team. # Edema R leg - No signs of fracture in X ray - Follow up with Orthopedic team. # Hypertension - Low blood pressure; it has improved after hydration. - Would suggest to hold medications at this point - Nifedipine, and restart it once the patient is more stable. # Diabetes - Controlled by PCP. - Counseled on healthy diet and regular exercises. - Discussed need for weight loss and the benefits. - Keep current medications including Empaglifozin. # Hyperlipidemia - Controlled by PCP. - Keep home medication with Ezetimibe. - Counseled on healthy diet and regular exercise. # Gout - Keep Allopurinol. We have discussed the most common side effects of the prescribed medications, indications, drug interactions, risks, complications, and alternatives of medications/therapeutics were explained and discussed. The patient has been requested to monitor closely for any untoward side effects or complications of medications. The patient has been strongly advised to be compliant with the recommendations, all the questions and concerns have been addressed. The patient has been also instructed to call, to return sooner or to go to the emergency department if symptoms persist or get worsen. The patient voiced understanding and denies any further questions at this time. This note was transcribed using the [employer] Dictation system. There may be grammatical, punctuation, or verbiage errors that occur with voice recognition programs. Counseling greater than 50% of visit regarding all cardiac issues. Thank you, Dr. Almanzar, for allowing me to participate in the care of this patient. Please do not hesitate to contact me with any further questions or concerns. Nima Fay MD Cardiology [1] Past Medical History: Diagnosis Date Acute on chronic urinary retention Aortic valve stenosis moderate to severe, non Rheumatic BPH (benign prostatic hyperplasia) Bradycardia recent ED admit for UTI and Bradycardia-Hrin the 30's and lightheaded, wore holter with results in Epic 03/05/25. Coreg dc'd. Patient denies any further issues Chronic UTI CKD (chronic kidney disease) follows with nephrology, BUN/CR= 42/2.25 &GFR=28 on 03/09/25 Constipation GERD (gastroesophageal reflux disease) Gout feet, no recent flare ups Heart failure History of echocardiogram 10/20/2024 Hyperlipidemia Hypertension Indwelling urinary catheter present Lesion of bladder bladder tumor Neuropathy pain/spasms to feet per patient, Neurotin helping OA (osteoarthritis) Cronic pain in right shoulder Pre-operative clearance :case has been extensively discussed with Urology,Ideally prefer 6mo waiting after his stents for procedure, but given patients discomfort with de oliveira and already several months dealing with the de oliveira-related symptoms, it would be reasonable to proceed on 03/30/2025 (3 months after stents). Plavix should be dc'd 5 days prior to surgery&resumed 24-48 hours after the procedure. Seasonal allergies Type 2 diabetes mellitus A1C= 6.6% on 03/09/25 [2] Past Surgical History: Procedure Laterality Date APPENDECTOMY 09/26/2019 Appendectomy CARDIAC CATHETERIZATION N/A 01/19/2025 PCI to prox-mid LAD using 2 WILLIE 3.0/38mm and 3.0/8mm (post-dil 3.5mm NC balloon) guided by IVUS. CATARACT EXTRACTION 09/26/2019 Cataract surgery COLONOSCOPY 09/26/2019 Colonoscopy MR HEAD ANGIO WO IV CONTRAST 03/28/2023 MR HEAD ANGIO WO IV CONTRAST 03/28/2023 [facility] MRI MR NECK ANGIO WO IV CONTRAST 03/28/2023 MR NECK ANGIO WO IV CONTRAST 03/28/2023 [facility] MRI [3] Family History Problem Relation Name Age of Onset Heart attack Mother Cancer Mother Heart disease Father Heart disease Brother Heart attack Child Brain cancer Child Diabetes type II Other OTHER Breast cancer Other OTHER [4] Allergies Allergen Reactions Qbkbhhb-Jue-Ifb Reductase Inhibitors Swelling Iodine Rash Skin irritation with topical Iodine antiseptics [5] Social History Socioeconomic History Marital status: Spouse name: Adriel Tobacco Use Smoking status: Former Current packs/day: 0.00 Types: Cigarettes Quit date: 1988 Years since quittin.5 Passive exposure: Never Smokeless tobacco: Never Vaping Use Vaping status: Never Used Substance and Sexual Activity Alcohol use: Not Currently Drug use: Never Sexual activity: Defer Social Drivers of Health Financial Resource Strain: Low Risk (03/05/2025) Overall Financial Resource Strain (CARDIA) Difficulty of Paying Living Expenses: Not hard at all Food Insecurity: No Food Insecurity (03/04/2025) Hunger Vital Sign Worried About Running Out of Food in the Last Year: Never true Ran Out of Food in the Last Year: Never true Transportation Needs: No Transportation Needs (04/09/2025) OASIS A1250: Transportation Lack of Transportation (Medical): No Lack of Transportation (Non-Medical): No Patient Unable or Declines to Respond: No Recent Concern: Transportation Needs - Unmet Transportation Needs (03/07/2025) OASIS A1250: Transportation Lack of Transportation (Medical): No Lack of Transportation (Non-Medical): Yes Patient Unable or Declines to Respond: No Social Connections: Feeling Socially Integrated (04/09/2025) OASIS D0700: Social Isolation Frequency of experiencing loneliness or isolation: Never Recent Concern: Social Connections - Feeling Somewhat Isolated (03/07/2025) OASIS D0700: Social Isolation Frequency of experiencing loneliness or isolation: Sometimes Intimate Partner Violence: Not At Risk (03/04/2025) Humiliation, Afraid, Rape, and Kick questionnaire Fear of Current or Ex-Partner: No Emotionally Abused: No Physically Abused: No Sexually Abused: No Housing Stability: Low Risk (03/05/2025) Housing Stability Vital Sign Unable to Pay for Housing in the Last Year: No Number of Times Moved in the Last Year: 0 Homeless in the Last Year: No [6] Social History Tobacco Use Smoking Status Former Current packs/day: 0.00 Types: Cigarettes Quit date: 1988 Years since quittin.5 Passive exposure: Never Smokeless Tobacco Never [7] Outpatient Encounter Medications as of 04/21/2025 Medication Sig Dispense Refill acetaminophen (Tylenol 8 HOUR) 650 mg ER tablet Take 1 tablet (650 mg) by mouth every 8 hours if needed for mild pain (1 - 3). Do not crush, chew, or split. allopurinol (Zyloprim) 300 mg tablet Take 1 tablet (300 mg) by mouth once daily. 90 tablet 3 amLODIPine (Norvasc) 10 mg tablet Take 1 tablet (10 mg) by mouth once daily. 90 tablet 3 aspirin 81 mg chewable tablet Chew 1 tablet (81 mg) once daily. 30 tablet 11 blood sugar diagnostic (Advanced Gluc Meter Test Strip) strip 1 strip once daily. 100 strip 3 bumetanide (Bumex) 0.5 mg tablet Take 1 tablet (0.5 mg) by mouth once daily. 30 tablet 11 cetirizine (ZyrTEC) 5 mg tablet Take 2 tablets (10 mg) by mouth once daily. clopidogrel (Plavix) 75 mg tablet Take 1 tablet (75 mg) by mouth once daily. Do not fill before January 26, 2025. 90 tablet 3 empagliflozin (Jardiance) 10 mg tablet Take 1 tablet (10 mg) by mouth once daily. 30 tablet 5 ezetimibe (Zetia) 10 mg tablet Take 1 tablet (10 mg) by mouth once daily. 30 tablet 11 gabapentin (Neurontin) 300 mg capsule Take 1 capsule (300 mg) by mouth 2 times a day. 180 capsule 1 glucosamine/chondr hogue A sod (OSTEO BI-FLEX ORAL) Take 1 capsule by mouth once daily. insulin glargine-lixisenatide (Soliqua 100/33) 100 unit-33 mcg/mL insulin pen Inject 19 Units under the skin once daily. 15 mL 11 pen needle, diabetic 31 gauge x 5/16" needle 1 each once daily. 100 each 3 cholecalciferol (Vitamin D-3) 25 MCG (1000 UT) capsule Take 1 capsule (25 mcg) by mouth once daily. (Patient not taking: Reported on 04/21/2025) HYDROcodone-acetaminophen (Tensed) 5-325 mg tablet Take 1 tablet by mouth every 6 hours if needed for severe pain (7 - 10). (Patient not taking: Reported on 03/23/2025) 20 tablet 0 lansoprazole (PREVACID ORAL) Take 1 capsule by mouth once daily. (Patient not taking: Reported on 04/21/2025) phenazopyridine (Pyridium) 200 mg tablet Take 1 tablet (200 mg) by mouth 3 times a day as needed for bladder spasms. (Patient not taking: Reported on 04/21/2025) 10 tablet 0 [DISCONTINUED] empagliflozin (Jardiance) 10 mg Take 1 tablet (10 mg) by mouth once daily. 30 tablet 5 [DISCONTINUED] ezetimibe (Zetia) 10 mg tablet Take 1 tablet (10 mg) by mouth once daily. 30 tablet 0 No facility-administered encounter medications on file as of 04/21/2025. documented in this encounter [facility] Work Phone: 04-21-2025 Miscellaneous Notes Addended by: NIMA PUTNAM on: 04/21/2025 03:00 PM Modules accepted: Orders documented in this encounter [facility] Work Phone: 04-21-2025 Note Addended by: NIMA SHUKLA on: 04/21/2025 03:00 PM Modules accepted: Orders [facility] Work Phone: 04-16-2025 History of Present illness Narrative HPI 84 y.o. male being seen with the following problem list: Problem list: Urinary retention - de oliveira cath since 2 months, from ED in [place]. On flomax and Proscar. Now s/p HoLEP 03/30/25 Benign 54g Pt follows with Dr Lucia. Underwent ureteroscopy, cysto with retrograde pyelogram and bladder lesion ablation 10/28/24. Cysto showed severe bladder trabeculation, no mass. Prostate enlargement. DOMENICO from 09/23/24 - prostate approx 88g, distended bladder, no hydro, indeterminate bladder lesion Having lots of discomfort with catheter. 12/03/24 - Urinary retention, currently with de oliveira cath. Miserable, would like to be cath free as soon as possible. Not on any blood thinners. 02/25/25 - Seen today over telehealth, performed this visit using real-time telehealth tools, including an audio/video connection between Kitty Vergara at home and Matilde Regan MD at [facility] [place]. Consent for telemedicine visit was obtained. Scheduled for HoLEP on 03/30. Presents today for questions and concerns regarding surgery. Presented to ED on 02/28/25 with no urine in his leg bag for the past 2-1/2 hours and mild supra pubic pressure. Bedside bladder scan demonstrated 517 cc of urine in the bladder. De Oliveira catheter was replaced and expressed 600 cc. Initial dose of Cipro 500 mg p.o. x 1 and a prescription for 7 days given. ED admission on 03/04 through 03/05 with lightheadedness and bradycardia with heart rate down to 30s. Most recent ED visit on 03/17 with concerns for UTI, was provided with abx coverage for a few days. 03/26/25 - Scheduled for HoLEP on 03/30/25. Here with some questions and concerns. 04/16/25 - PVR 2cc. Emptying great, urinating well without a cath with strong stream. No leakage, no urgency or frequency Lab Results Component Value Date PSA 3.08 11/10/2022 Current Medications: Current Medications[1] Active Problems: Alejandro Vergara is a 84 y.o. male with the following Problems and Medications. Problem List[2] Current Medications[3] PMH: Medical History[4] PSH: Surgical History[5] FMH: Family History[6] SHx: Social History[7] Allergies: RX Allergies[8] Assessment/Plan About 2 weeks s/p HoLEP, emptying great without a cath, stream is strong, no leakage, no urgency or frequency. Happy with his outcome. Reviewed benign pathology. FU in 3 months with PVR. Scribe Attestation By signing my name below, I, Courtney Pendleton, attest that this documentation has been prepared under the direction and in the presence of Matilde Regan MD. [1] Current Outpatient Medications Medication Sig Dispense Refill acetaminophen (Tylenol 8 HOUR) 650 mg ER tablet Take 1 tablet by mouth every 8 hours if needed for mild pain (1 - 3). Do not crush, chew, or split. allopurinol (Zyloprim) 300 mg tablet Take 1 tablet (300 mg) by mouth once daily. 90 tablet 3 amLODIPine (Norvasc) 10 mg tablet Take 1 tablet (10 mg) by mouth once daily. 90 tablet 3 aspirin 81 mg chewable tablet Chew 1 tablet (81 mg) once daily. 30 tablet 11 blood sugar diagnostic (Advanced Gluc Meter Test Strip) strip 1 strip once daily. 100 strip 3 bumetanide (Bumex) 0.5 mg tablet Take 1 tablet (0.5 mg) by mouth once daily. 30 tablet 11 cetirizine (ZyrTEC) 5 mg tablet Take 10 mg by mouth once daily. cholecalciferol (Vitamin D-3) 25 MCG (1000 UT) capsule Take 1 capsule (25 mcg) by mouth once daily. (Patient not taking: Reported on 03/30/2025) clopidogrel (Plavix) 75 mg tablet Take 1 tablet (75 mg) by mouth once daily. Do not fill before January 26, 2025. (Patient taking differently: Take 1 tablet (75 mg) by mouth once daily. Last dose 03/24/25) 90 tablet 3 empagliflozin (Jardiance) 10 mg Take 1 tablet (10 mg) by mouth once daily. 30 tablet 5 ezetimibe (Zetia) 10 mg tablet Take 1 tablet (10 mg) by mouth once daily. 30 tablet 0 gabapentin (Neurontin) 300 mg capsule Take 1 capsule (300 mg) by mouth 2 times a day. 180 capsule 1 glucosamine/chondr hogue A sod (OSTEO BI-FLEX ORAL) Take 1 capsule by mouth once daily. HYDROcodone-acetaminophen (Tensed) 5-325 mg tablet Take 1 tablet by mouth every 6 hours if needed for severe pain (7 - 10). (Patient not taking: Reported on 03/30/2025) 20 tablet 0 insulin glargine-lixisenatide (Soliqua 100/33) 100 unit-33 mcg/mL insulin pen Inject 19 Units under the skin once daily. 15 mL 11 lansoprazole (PREVACID ORAL) Take 1 capsule by mouth once daily. pen needle, diabetic 31 gauge x 5/16" needle 1 each once daily. 100 each 3 phenazopyridine (Pyridium) 200 mg tablet Take 1 tablet (200 mg) by mouth 3 times a day as needed for bladder spasms. 10 tablet 0 No current facility-administered medications for this visit. 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 Do not crush, chew, or split. allopurinol (Zyloprim) 300 mg tablet Take 1 tablet (300 mg) by mouth once daily. 90 tablet 3 amLODIPine (Norvasc) 10 mg tablet Take 1 tablet (10 mg) by mouth once daily. 90 tablet 3 aspirin 81 mg chewable tablet Chew 1 tablet (81 mg) once daily. 30 tablet 11 blood sugar diagnostic (Advanced Gluc Meter Test Strip) strip 1 strip once daily. 100 strip 3 bumetanide (Bumex) 0.5 mg tablet Take 1 tablet (0.5 mg) by mouth once daily. 30 tablet 11 cetirizine (ZyrTEC) 5 mg tablet Take 10 mg by mouth once daily. cholecalciferol (Vitamin D-3) 25 MCG (1000 UT) capsule Take 1 capsule (25 mcg) by mouth once daily. (Patient not taking: Reported on 03/30/2025) clopidogrel (Plavix) 75 mg tablet Take 1 tablet (75 mg) by mouth once daily. Do not fill before January 26, 2025. (Patient taking differently: Take 1 tablet (75 mg) by mouth once daily. Last dose 03/24/25) 90 tablet 3 empagliflozin (Jardiance) 10 mg Take 1 tablet (10 mg) by mouth once daily. 30 tablet 5 ezetimibe (Zetia) 10 mg tablet Take 1 tablet (10 mg) by mouth once daily. 30 tablet 0 gabapentin (Neurontin) 300 mg capsule Take 1 capsule (300 mg) by mouth 2 times a day. 180 capsule 1 glucosamine/chondr hogue A sod (OSTEO BI-FLEX ORAL) Take 1 capsule by mouth once daily. HYDROcodone-acetaminophen (Tensed) 5-325 mg tablet Take 1 tablet by mouth every 6 hours if needed for severe pain (7 - 10). (Patient not taking: Reported on 03/30/2025) 20 tablet 0 insulin glargine-lixisenatide (Soliqua 100/33) 100 unit-33 mcg/mL insulin pen Inject 19 Units under the skin once daily. 15 mL 11 lansoprazole (PREVACID ORAL) Take 1 capsule by mouth once daily. pen needle, diabetic 31 gauge x 5/16" needle 1 each once daily. 100 each 3 phenazopyridine (Pyridium) 200 mg tablet Take 1 tablet (200 mg) by mouth 3 times a day as needed for bladder spasms. 10 tablet 0 No current facility-administered medications for this visit. [4] Past Medical History: Diagnosis Date Acute on chronic urinary retention Aortic valve stenosis moderate to severe, non Rheumatic BPH (benign prostatic hyperplasia) Bradycardia recent ED admit for UTI and Bradycardia-Hrin the 30's and lightheaded, wore holter with results in [facility] 03/05/25. Coreg dc'd. Patient denies any further issues Chronic UTI CKD (chronic kidney disease) follows with nephrology, BUN/CR= 42/2.25 &GFR=28 on 03/09/25 Constipation GERD (gastroesophageal reflux disease) Gout feet, no recent flare ups Heart failure History of echocardiogram 10/20/2024 Hyperlipidemia Hypertension Indwelling urinary catheter present Lesion of bladder bladder tumor Neuropathy pain/spasms to feet per patient, Neurotin helping OA (osteoarthritis) Cronic pain in right shoulder Pre-operative clearance :case has been extensively discussed with Urology,Ideally prefer 6mo waiting after his stents for procedure, but given patients discomfort with de oliveira and already several months dealing with the de oliveira-related symptoms, it would be reasonable to proceed on 03/30/2025 (3 months after stents). Plavix should be dc'd 5 days prior to surgery&resumed 24-48 hours after the procedure. Seasonal allergies Type 2 diabetes mellitus A1C= 6.6% on 03/09/25 [5] Past Surgical History: Procedure Laterality Date APPENDECTOMY 09/26/2019 Appendectomy CARDIAC CATHETERIZATION N/A 01/19/2025 PCI to prox-mid LAD using 2 WILLIE 3.0/38mm and 3.0/8mm (post-dil 3.5mm NC balloon) guided by IVUS. CATARACT EXTRACTION 09/26/2019 Cataract surgery COLONOSCOPY 09/26/2019 Colonoscopy MR HEAD ANGIO WO IV CONTRAST 03/28/2023 MR HEAD ANGIO WO IV CONTRAST 03/28/2023 [facility] MRI MR NECK ANGIO WO IV CONTRAST 03/28/2023 MR NECK ANGIO WO IV CONTRAST 03/28/2023 [facility] MRI [6] Family History Problem Relation Name Age of Onset Heart attack Mother Cancer Mother Heart disease Father Heart disease Brother Heart attack Child Brain cancer Child Diabetes type II Other OTHER Breast cancer Other OTHER [7] Social History Tobacco Use Smoking status: Former Current packs/day: 0.00 Types: Cigarettes Quit date: 1988 Years since quittin.5 Passive exposure: Never Smokeless tobacco: Never Vaping Use Vaping status: Never Used Substance Use Topics Alcohol use: Not Currently Drug use: Never [8] Allergies Allergen Reactions Mkciljn-Omu-Nbs Reductase Inhibitors Swelling Iodine Rash Skin irritation with topical Iodine antiseptics documented in this encounter [facility] Work Phone: 03-30-2025 manager of regulatory affairs Note Phase II [facility] 03-30-2025 Miscellaneous Notes Phase II PACU phase I Endoscopic Anatomical Prostate Enucleation ~ HoLEP Operative Note Date: 03/30/2025 OR Location: [facility] OR Name: Kitty Vergara "Alejandro", : 1940, Age: 84 y.o., , Sex: male Diagnosis Pre-op Diagnosis * 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, N13.8] Post-op Diagnosis * 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, N13.8] Procedures Endoscopic Anatomical Prostate Enucleation ~ HoLEP 17571 - [place] LASER ENUCLEATION PROSTATE W/MORCELLATION Surgeons * Matilde Regan - Primary Resident/Fellow/Other Physical Education Department Chair: Surgeons and Role: * Rom Aggarwal MD - Resident - Assisting Staff: Offset Pressman: Rosemary Samson Person: Angy Salas Scrub: Ange Salas Offset Pressman: Elsi Anesthesia Staff: Anesthesiologist: Jose G Cooper MD ROAD CONDUCTOR: Michaela Roldan APRN-ROAD CONDUCTOR C-AA: CODY Gerber Procedure Summary Anesthesia: General ASA: III Estimated Blood Loss: 25mL Intra-op Medications: Administrations occurring from 1055 to 1255 on 03/30/25: Medication Name Total Dose sodium chloride 0.9 % irrigation solution 18,000 mL ceFAZolin (Ancef) vial 1 g 2 g dexAMETHasone (Decadron) 4 mg/mL IV Syringe 2 mL 4 mg fentaNYL (Sublimaze) injection 50 mcg/mL 100 mcg glycopyrrolate (Robinul) injection 0.1 mg lactated Ringer's infusion Cannot be calculated lidocaine PF (Xylocaine-MPF) local injection 2 % 100 mg propofol (Diprivan) injection 10 mg/mL 100 mg Anesthesia Record Intraprocedure I/O Totals Intake lactated Ringer's 500.00 mL Total Intake 500 mL Specimen: ID Type Source Tests Collected by Time 1 : prostate tissue Tissue PROSTATE HOLEP SURGICAL PATHOLOGY EXAM Matilde Regan MD 03/30/2025 1226 Drains and/or Catheters: * None in log * Tourniquet Times: Implants: Findings: trilobar obstruction Indications: Kitty Stallworth" is an 84 y.o. male who is having surgery for 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, N13.8]. The patient was seen in the preoperative area. The risks, benefits, complications, treatment options, non-operative alternatives, expected recovery and outcomes were discussed with the patient. The possibilities of reaction to medication, pulmonary aspiration, injury to surrounding structures, bleeding, recurrent infection, the need for additional procedures, failure to diagnose a condition, and creating a complication requiring transfusion or operation were discussed with the patient. The patient concurred with the proposed plan, giving informed consent. The site of surgery was properly noted/marked if necessary per policy. The patient has been actively warmed in preoperative area. Preoperative antibiotics have been ordered and given within 1 hours of incision. Venous thrombosis prophylaxis have been ordered including bilateral sequential compression devices Procedure Details: 1. HOLMIUM LASER ENUCLEATION OF THE PROSTATE Laser Settings Used: Cutting 2 J, 40 Hz. Coagulation 1.5 J, 30 Hz. Venu or Virtual basket used? Venu Preoperative Prostate Size: approx 90 cubic centimeters. Prostate configuration: trilobar Complication: none EBL: 25 ml Catheter: 22Fr 3 way Antibiotics: ancef, gent Specimen: Morcellated prostatic tissue. DESCRIPTION OF PROCEDURE: The patient was brought to the OR and after good general anesthesia was achieved, the patient was prepped and draped in dorsal lithotomy position. All pressure points were padded. Surgical pause was performed. The patient was identified using 2 identifiers. The correct surgical procedure was confirmed. All members of surgical and anesthesia team were in agreement. The patient received prophylactic antibiotic and the procedure started. Cystoscopy: The patient's bladder was first entered with a 22-Gabonese rigid cystoscope with 30-degree lens. Cystoscopic examination showed normal anterior urethra. The posterior urethra showed trilobar obstruction. Both ureteral orifices were identified away from the bladder neck. The cystoscope was removed and the meatus was dilated up to 28-Gabonese using sounds. The urethra was then filled with lidocaine gel and a 26-Gabonese Estrada continuous-flow resectoscope was placed. The holmium laser apparatus was placed through the sheath. Using a 550-micron end-firing quartz laser fiber, a laser bridge, and a 7-Gabonese laser stabilizing catheter, the procedure was started with the above-mentioned laser setting. A en bloc technique was performed with an initial incision at the apex and circumferentially using low energy. We continued to develop our anterior plane at the apex, identifying the capsule and freeing up the anterior apex well within the sphincter. We then proceeded with our posterior dissection, developing the posterior space toward the bladder neck and continuing our incision laterally to 9 and 3:00. Then we turned our attention to the lateral attachments of the prostate. Using laser energy, taking care to avoid any damage to the sphincter, we connected our previously dissected anterior and posterior planes to completely liberate the apex of the prostate preserving the sphincter. We then continued our dissection circumferentially, freeing the prostate systematically from apex to its attachments at the bladder neck. The adenoma was then pushed into the bladder. Once the prostate had been fully enucleated, the laser was defocused on any sources of bleeding to get additional hemostasis. There was good hemostasis at the conclusion of this procedure. A few small remaining nodular adenomas were then resected from the capsule. The laser bridge apparatus and the resectoscope were then removed and the offset Estrada nephroscope and Estrada - Omar tissue morcellator were then introduced and used to completely morcellate the tissue. Two inflows were used during this portion of the procedure to fully distend the bladder and to prevent any inadvertent bladder injury. The bladder was then ellik'd out after insertion of the inner sheath and reinspected with the cystoscope showing no residual adenomas. Hemostasis was ensured at the conclusion of the procedure and both ureteral orifices were confirmed and identified well away from the area of resection. No residual adenoma could be identified. Following that, a three-way De Oliveira catheter on a guide was placed into the bladder and the balloon was filled. The bladder was irrigated near clear and the continuous irrigation was started. The patient tolerated the procedure well and was shifted to recovery in good general condition Evidence of Infection: No Complications: None; patient tolerated the procedure well. Disposition: PACU - hemodynamically stable. Condition: stable Additional Details: Attending Attestation: I was present and scrubbed for the davis portions of the procedure. Matilde Regan documented in this encounter [facility] Work Phone: 03-30-2025 manager of regulatory affairs Note PACU phase I [facility] Work Phone: 03-30-2025 Surgery Surgical operation note Endoscopic Anatomical Prostate Enucleation ~ HoLEP Operative Note Date: 03/30/2025 OR Location: [facility] OR Name: Kitty Vergara "Alejandro", : 1940, Age: 84 y.o., , Sex: male Diagnosis Pre-op Diagnosis * 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, N13.8] Post-op Diagnosis * 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, N13.8] Procedures Endoscopic Anatomical Prostate Enucleation ~ HoLEP 30370 - [place] LASER ENUCLEATION PROSTATE W/MORCELLATION Surgeons * Matilde Regan - Primary Resident/Fellow/Other Physical Education Department Chair: Surgeons and Role: * Rom Aggarwal MD - Resident - Assisting Staff: Offset Pressman: Rosemary Samson Person: Angy Salas Scrub: Ange Salas Offset Pressman: Elsi Anesthesia Staff: Anesthesiologist: Jose G Cooper MD ROAD CONDUCTOR: Michaela Roldan APRN-ROAD CONDUCTOR C-AA: CODY Gerber Procedure Summary Anesthesia: General ASA: III Estimated Blood Loss: 25mL Intra-op Medications: Administrations occurring from 1055 to 1255 on 03/30/25: Medication Name Total Dose sodium chloride 0.9 % irrigation solution 18,000 mL ceFAZolin (Ancef) vial 1 g 2 g dexAMETHasone (Decadron) 4 mg/mL IV Syringe 2 mL 4 mg fentaNYL (Sublimaze) injection 50 mcg/mL 100 mcg glycopyrrolate (Robinul) injection 0.1 mg lactated Ringer's infusion Cannot be calculated lidocaine PF (Xylocaine-MPF) local injection 2 % 100 mg propofol (Diprivan) injection 10 mg/mL 100 mg Anesthesia Record Intraprocedure I/O Totals Intake lactated Ringer's 500.00 mL Total Intake 500 mL Specimen: ID Type Source Tests Collected by Time 1 : prostate tissue Tissue PROSTATE HOLEP SURGICAL PATHOLOGY EXAM Matilde Regan MD 03/30/2025 1226 Drains and/or Catheters: * None in log * Tourniquet Times: Implants: Findings: trilobar obstruction Indications: Kitty Stallworth" is an 84 y.o. male who is having surgery for 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, N13.8]. The patient was seen in the preoperative area. The risks, benefits, complications, treatment options, non-operative alternatives, expected recovery and outcomes were discussed with the patient. The possibilities of reaction to medication, pulmonary aspiration, injury to surrounding structures, bleeding, recurrent infection, the need for additional procedures, failure to diagnose a condition, and creating a complication requiring transfusion or operation were discussed with the patient. The patient concurred with the proposed plan, giving informed consent. The site of surgery was properly noted/marked if necessary per policy. The patient has been actively warmed in preoperative area. Preoperative antibiotics have been ordered and given within 1 hours of incision. Venous thrombosis prophylaxis have been ordered including bilateral sequential compression devices Procedure Details: 1. HOLMIUM LASER ENUCLEATION OF THE PROSTATE Laser Settings Used: Cutting 2 J, 40 Hz. Coagulation 1.5 J, 30 Hz. Venu or Virtual basket used? Venu Preoperative Prostate Size: approx 90 cubic centimeters. Prostate configuration: trilobar Complication: none EBL: 25 ml Catheter: 22Fr 3 way Antibiotics: ancef, gent Specimen: Morcellated prostatic tissue. DESCRIPTION OF PROCEDURE: The patient was brought to the OR and after good general anesthesia was achieved, the patient was prepped and draped in dorsal lithotomy position. All pressure points were padded. Surgical pause was performed. The patient was identified using 2 identifiers. The correct surgical procedure was confirmed. All members of surgical and anesthesia team were in agreement. The patient received prophylactic antibiotic and the procedure started. Cystoscopy: The patient's bladder was first entered with a 22-Gabonese rigid cystoscope with 30-degree lens. Cystoscopic examination showed normal anterior urethra. The posterior urethra showed trilobar obstruction. Both ureteral orifices were identified away from the bladder neck. The cystoscope was removed and the meatus was dilated up to 28-Gabonese using sounds. The urethra was then filled with lidocaine gel and a 26-Gabonese Estrada continuous-flow resectoscope was placed. The holmium laser apparatus was placed through the sheath. Using a 550-micron end-firing quartz laser fiber, a laser bridge, and a 7-Gabonese laser stabilizing catheter, the procedure was started with the above-mentioned laser setting. A en bloc technique was performed with an initial incision at the apex and circumferentially using low energy. We continued to develop our anterior plane at the apex, identifying the capsule and freeing up the anterior apex well within the sphincter. We then proceeded with our posterior dissection, developing the posterior space toward the bladder neck and continuing our incision laterally to 9 and 3:00. Then we turned our attention to the lateral attachments of the prostate. Using laser energy, taking care to avoid any damage to the sphincter, we connected our previously dissected anterior and posterior planes to completely liberate the apex of the prostate preserving the sphincter. We then continued our dissection circumferentially, freeing the prostate systematically from apex to its attachments at the bladder neck. The adenoma was then pushed into the bladder. Once the prostate had been fully enucleated, the laser was defocused on any sources of bleeding to get additional hemostasis. There was good hemostasis at the conclusion of this procedure. A few small remaining nodular adenomas were then resected from the capsule. The laser bridge apparatus and the resectoscope were then removed and the offset Estrada nephroscope and Setrada - [place] tissue morcellator were then introduced and used to completely morcellate the tissue. Two inflows were used during this portion of the procedure to fully distend the bladder and to prevent any inadvertent bladder injury. The bladder was then ellik'd out after insertion of the inner sheath and reinspected with the cystoscope showing no residual adenomas. Hemostasis was ensured at the conclusion of the procedure and both ureteral orifices were confirmed and identified well away from the area of resection. No residual adenoma could be identified. Following that, a three-way De Oliveira catheter on a guide was placed into the bladder and the balloon was filled. The bladder was irrigated near clear and the continuous irrigation was started. The patient tolerated the procedure well and was shifted to recovery in good general condition Evidence of Infection: No Complications: None; patient tolerated the procedure well. Disposition: PACU - hemodynamically stable. Condition: stable Additional Details: Attending Attestation: I was present and scrubbed for the davis portions of the procedure. Matilde Regan [facility] Work Phone: 03-30-2025 Hospital Discharge instructions Rom Aggarwal MD - 03/30/2025 11:41 AM EDT DEPARTMENT OF UROLOGY DISCHARGE INSTRUCTIONS [facility] Outpatient Surgery C O N F I D E N T I A L I N F O R M A T I O N Kitty Vergara Call [phone] during regular daytime business hours (8:00 am - 5:00 pm) and after 5:00 pm and ask for the Urology resident with any questions or concerns. If it is a life-threatening situation, proceed to the nearest emergency department. Thank you for the opportunity to care for you today. Your health and healing are very important to us. We hope we made you feel as comfortable as possible and are committed to your recovery and continued well-being. The following is a brief overview of your transurethral prostate resection today. Some of the information contained on this summary may be confidential. This information should be kept in your records and should be shared with your regular doctor. Physicians: Dr. Regan Procedure performed: Prostate Resection Pending results: pathology of tissue taken from your prostate Catheter removal appointment: 1-3 days after surgery What to Expect During your Recovery and Home Care Anesthesia Side Effects You received anesthesia today. You may feel sleepy, tired, or have a sore throat. You may also feel drowsiness, dizziness, or inability to think clearly. For your safety, do not drive, drink alcoholic beverages, take any unprescribed medication or make any important decisions for 24 hours. A responsible adult should be with you for 24 hours. Activity and Recovery No heavy lifting over ten pounds. Limit activity while urinary catheter is in place. Avoid activities that would cause pulling or tugging on your catheter. Do not drive or operate heavy machinery while taking narcotic pain medications as these medications can alter perception, impair judgement, and slow reaction times. Pain Control Unfortunately, you may experience pain after your procedure. Adequate management can include alternative measures to help ease your pain and can include over the counter Tylenol. Pyridium (phenazopyridine) will help with the burning sensation that men experience after HOLEP. If tylenol and pyridium do not control pain adequately, oxycodone (narcotic) can be taken on an as needed basis for breakthrough pain. Do not take more than 4,000mg of Tylenol in a 24-hour period. Nausea/Vomiting Clear liquids are best tolerated at first. Start slow, advance your diet as tolerated to normal foods. Avoid spicy, greasy, heavy foods at first. Also, you may feel nauseous or like you need to vomit if you take any type of medication on an empty stomach. Call your physician if you are unable to eat or drink and have persistent vomiting. Signs of Bleeding You are going to have some blood in your urine. Your urine will be light pink to yellow. You always want to look at the urine in the tubing of your catheter and not in the large urine collection bag to check for bleeding. If urine becomes thick dark nia red, has large clots or stops draining, please notify your physician. Wait until two days after your surgery to resume your blood thinner medication. Treatment/wound care: Keep area(s) clean and dry. Clean around the tip or your penis were the catheter goes in daily with mild soap and water. It is okay to shower after surgery. Do not submerge your catheter in standing water until seen for follow up appointment (no tub bathing, swimming, or hot tubs). Signs of Infection Signs of infection can include fever, drainage(green/yellow), chills, burning sensation with passing of urine, catheter leakage, or severe abdominal pain. If you see any of these occur, please contact your doctor's office at [phone]. Any fever higher than 100.4, especially if associated with an ill feeling, abdominal pain, chills, or nausea should be reported to your surgeon. Assist in bowel movements/urination Increase fiber in diet Increase water (6 to 8 glasses) Increase walking Treat constipation as needed (recommend Miralax for postoperative constipation) Additional Instructions: CATHETER CARE Always keep the catheters tubing and drainage bag below the level of your bladder. Avoid loops and kinks in the catheter tubing. NOTIFY your physician if catheter falls out or catheter seems clogged and urine is not draining. Do not wear the small leg bag to bed you should be provided with a larger overnight bag that you should wear to bed and can hang over the side of the bed. We recommend wearing the large bag in the shower, as this is easy to dry, and you do not get your leg straps wet from your leg bag. Your catheter should be secured to your upper thigh, do not allow it to hang or dangle. Your catheter will be removed at your post-operative appointment. The following attachments cannot be sent through Care Everywhere.General Anesthesia Discharge Instructions (Israeli)How to Prevent Surgical Site Infections (Israeli)documented in this encounter [facility] Work Phone: 03-26-2025 History of Present illness Narrative HPI 84 y.o. male being seen with the following problem list: Problem list: Urinary retention - de oliveira cath since 2 months, from ED in [place]. On flomax and proscar Pt follows with Dr Lucia. Underwent ureteroscopy, cysto with retrograde pyelogram and bladder lesion ablation 10/28/24. Cysto showed severe bladder trabeculation, no mass. Prostate enlargement. DOMENICO from 09/23/24 - prostate approx 88g, distended bladder, no hydro, indeterminate bladder lesion Having lots of discomfort with catheter. 12/03/24 - Urinary retention, currently with de oliveira cath. Miserable, would like to be cath free as soon as possible. Not on any blood thinners. 02/25/25 - Seen today over telehealth, performed this visit using real-time telehealth tools, including an audio/video connection between Kitty Vergara at home and Matilde Regan MD at [facility] [place]. Consent for telemedicine visit was obtained. Scheduled for HoLEP on 03/30. Presents today for questions and concerns regarding surgery. Presented to ED on 02/28/25 with no urine in his leg bag for the past 2-1/2 hours and mild supra pubic pressure. Bedside bladder scan demonstrated 517 cc of urine in the bladder. De Oliveira catheter was replaced and expressed 600 cc. Initial dose of Cipro 500 mg p.o. x 1 and a prescription for 7 days given. ED admission on 03/04 through 03/05 with lightheadedness and bradycardia with heart rate down to 30s. Most recent ED visit on 03/17 with concerns for UTI, was provided with abx coverage for a few days. 03/26/25 - Scheduled for HoLEP on 03/30/25. Here with some questions and concerns. Lab Results Component Value Date PSA 3.08 11/10/2022 Current Medications: Current Medications[1] Active Problems: Alejandro Vergara is a 84 y.o. male with the following Problems and Medications. Problem List[2] Current Medications[3] PMH: Medical History[4] PSH: Surgical History[5] FMH: Family History[6] SHx: Social History[7] Allergies: RX Allergies[8] Assessment/Plan All questions and concerns have been answered to patients satisfaction. He will start his Bactrim DS now. He will stop his Plavix 5 days prior to the surgery. Will proceed with surgery as planned on 03/30. Will continue asa periop. Scribe Attestation By signing my name below, I, Herson Parr, Scribe, attest that this documentation has been prepared under the direction and in the presence of Matilde Regan MD. [1] Current Outpatient Medications Medication Sig Dispense Refill acetaminophen (Tylenol 8 HOUR) 650 mg ER tablet Take 1 tablet (650 mg) by mouth every 8 hours if needed for mild pain (1 - 3). Do not crush, chew, or split. allopurinol (Zyloprim) 300 mg tablet Take 1 tablet (300 mg) by mouth once daily. 90 tablet 3 amLODIPine (Norvasc) 10 mg tablet Take 1 tablet (10 mg) by mouth once daily. 90 tablet 3 aspirin 81 mg chewable tablet Chew 1 tablet (81 mg) once daily. 30 tablet 11 blood sugar diagnostic (Advanced Gluc Meter Test Strip) strip 1 strip once daily. 100 strip 3 bumetanide (Bumex) 0.5 mg tablet Take 1 tablet (0.5 mg) by mouth once daily. 30 tablet 11 cetirizine (ZyrTEC) 5 mg tablet Take 2 tablets (10 mg) by mouth once daily. cholecalciferol (Vitamin D-3) 25 MCG (1000 UT) capsule Take 1 capsule (25 mcg) by mouth once daily. clopidogrel (Plavix) 75 mg tablet Take 1 tablet (75 mg) by mouth once daily. Do not fill before January 26, 2025. 90 tablet 3 empagliflozin (Jardiance) 10 mg Take 1 tablet (10 mg) by mouth once daily. 30 tablet 5 ezetimibe (Zetia) 10 mg tablet Take 1 tablet (10 mg) by mouth once daily. 30 tablet 0 finasteride (Proscar) 5 mg tablet Take 1 tablet (5 mg) by mouth once daily. Do not crush, chew, or split. 30 tablet 11 gabapentin (Neurontin) 300 mg capsule Take 1 capsule (300 mg) by mouth 2 times a day. glucosamine/chondr hogue A sod (OSTEO BI-FLEX ORAL) Take 1 capsule by mouth once daily. HYDROcodone-acetaminophen (Tensed) 5-325 mg tablet Take 1 tablet by mouth every 6 hours if needed for severe pain (7 - 10). (Patient not taking: Reported on 03/23/2025) 20 tablet 0 insulin glargine-lixisenatide (Soliqua 100/33) 100 unit-33 mcg/mL insulin pen Inject 19 Units under the skin once daily. 15 mL 11 lansoprazole (PREVACID ORAL) Take 1 capsule by mouth once daily. pen needle, diabetic 31 gauge x 5/16" needle 1 each once daily. 100 each 3 tamsulosin (Flomax) 0.4 mg 24 hr capsule Take 1 capsule (0.4 mg) by mouth once daily. 90 capsule 3 No current facility-administered medications for this visit. 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 Do not crush, chew, or split. allopurinol (Zyloprim) 300 mg tablet Take 1 tablet (300 mg) by mouth once daily. 90 tablet 3 amLODIPine (Norvasc) 10 mg tablet Take 1 tablet (10 mg) by mouth once daily. 90 tablet 3 aspirin 81 mg chewable tablet Chew 1 tablet (81 mg) once daily. 30 tablet 11 blood sugar diagnostic (Advanced Gluc Meter Test Strip) strip 1 strip once daily. 100 strip 3 bumetanide (Bumex) 0.5 mg tablet Take 1 tablet (0.5 mg) by mouth once daily. 30 tablet 11 cetirizine (ZyrTEC) 5 mg tablet Take 2 tablets (10 mg) by mouth once daily. cholecalciferol (Vitamin D-3) 25 MCG (1000 UT) capsule Take 1 capsule (25 mcg) by mouth once daily. clopidogrel (Plavix) 75 mg tablet Take 1 tablet (75 mg) by mouth once daily. Do not fill before January 26, 2025. 90 tablet 3 empagliflozin (Jardiance) 10 mg Take 1 tablet (10 mg) by mouth once daily. 30 tablet 5 ezetimibe (Zetia) 10 mg tablet Take 1 tablet (10 mg) by mouth once daily. 30 tablet 0 finasteride (Proscar) 5 mg tablet Take 1 tablet (5 mg) by mouth once daily. Do not crush, chew, or split. 30 tablet 11 gabapentin (Neurontin) 300 mg capsule Take 1 capsule (300 mg) by mouth 2 times a day. glucosamine/chondr hogue A sod (OSTEO BI-FLEX ORAL) Take 1 capsule by mouth once daily. HYDROcodone-acetaminophen (Tensed) 5-325 mg tablet Take 1 tablet by mouth every 6 hours if needed for severe pain (7 - 10). (Patient not taking: Reported on 03/23/2025) 20 tablet 0 insulin glargine-lixisenatide (Soliqua 100/33) 100 unit-33 mcg/mL insulin pen Inject 19 Units under the skin once daily. 15 mL 11 lansoprazole (PREVACID ORAL) Take 1 capsule by mouth once daily. pen needle, diabetic 31 gauge x 5/16" needle 1 each once daily. 100 each 3 tamsulosin (Flomax) 0.4 mg 24 hr capsule Take 1 capsule (0.4 mg) by mouth once daily. 90 capsule 3 No current facility-administered medications for this visit. [4] Past Medical History: Diagnosis Date Acute on chronic urinary retention Aortic valve stenosis moderate to severe, non Rheumatic BPH (benign prostatic hyperplasia) Bradycardia recent ED admit for UTI and Bradycardia-Hrin the 30's and lightheaded, wore holter with results in Epic 03/05/25. Coreg dc'd. Patient denies any further issues Chronic UTI CKD (chronic kidney disease) follows with nephrology, BUN/CR= 42/2.25 &GFR=28 on 03/09/25 Constipation GERD (gastroesophageal reflux disease) Gout feet, no recent flare ups Heart failure History of echocardiogram 10/20/2024 Hyperlipidemia Hypertension Indwelling urinary catheter present Lesion of bladder bladder tumor Neuropathy pain/spasms to feet per patient, Neurotin helping OA (osteoarthritis) Cronic pain in right shoulder Pre-operative clearance :case has been extensively discussed with Urology,Ideally prefer 6mo waiting after his stents for procedure, but given patients discomfort with de oliveira and already several months dealing with the de oliveira-related symptoms, it would be reasonable to proceed on 03/30/2025 (3 months after stents). Plavix should be dc'd 5 days prior to surgery&resumed 24-48 hours after the procedure. Seasonal allergies Type 2 diabetes mellitus A1C= 6.6% on 03/09/25 [5] Past Surgical History: Procedure Laterality Date APPENDECTOMY 09/26/2019 Appendectomy CARDIAC CATHETERIZATION N/A 01/19/2025 PCI to prox-mid LAD using 2 WILLIE 3.0/38mm and 3.0/8mm (post-dil 3.5mm NC balloon) guided by IVUS. CATARACT EXTRACTION 09/26/2019 Cataract surgery COLONOSCOPY 09/26/2019 Colonoscopy MR HEAD ANGIO WO IV CONTRAST 03/28/2023 MR HEAD ANGIO WO IV CONTRAST 03/28/2023 [facility] MRI MR NECK ANGIO WO IV CONTRAST 03/28/2023 MR NECK ANGIO WO IV CONTRAST 03/28/2023 [facility] MRI [6] Family History Problem Relation Name Age of Onset Heart attack Mother Cancer Mother Heart disease Father Heart disease Brother Heart attack Child Brain cancer Child Diabetes type II Other OTHER Breast cancer Other OTHER [7] Social History Tobacco Use Smoking status: Former Current packs/day: 0.00 Types: Cigarettes Quit date: 1988 Years since quittin.5 Passive exposure: Never Smokeless tobacco: Never Vaping Use Vaping status: Never Used Substance Use Topics Alcohol use: Not Currently Drug use: Never [8] Allergies Allergen Reactions Bnykulm-Jky-Vqq Reductase Inhibitors Swelling Pregabalin Unknown Iodine Rash Skin irritation with topical Iodine antiseptics documented in this encounter [facility] Work Phone: 03-17-2025 Physician Emergency department Note HPI Chief Complaint Patient presents with Urinary Retention Pt has a chronic de oliveira catheter due to prostate issues. He states that it was not draining last night so he changed the last and noted some milky white discharge. Pt notes burning today, but denies fever or chills. Denies blood in the urine Patient presents to the emergency department secondary to concerns for UTI. He states that he was leaking some urine around his chronic indwelling De Oliveira catheter and also was noted to have some discoloration of his urine. Denies flank pain. No fever. History provided by: Patient rn maternity used: No Patient History Medical History[1] Surgical History[2] Family History[3] Social History[4] Physical Exam ED Triage Vitals [03/17/25 1137] Temperature Heart Rate Respirations BP 36.5 C (97.7 F) 63 18 134/55 Pulse Ox Temp Source Heart Rate Source Patient Position 98 % Oral Monitor -- BP Location FiO2 (%) -- -- Physical Exam Vitals and nursing note reviewed. Constitutional: General: He is not in acute distress. Appearance: Normal appearance. He is normal weight. He is not ill-appearing, toxic-appearing or diaphoretic. HENT: Head: Normocephalic and atraumatic. Nose: Nose normal. No rhinorrhea. Neck: Comments: Trachea is midline Cardiovascular: Rate and Rhythm: Normal rate and regular rhythm. Heart sounds: No murmur heard. Pulmonary: Effort: Pulmonary effort is normal. Breath sounds: Normal breath sounds. No wheezing. Abdominal: General: Abdomen is flat. Bowel sounds are normal. There is no distension. Palpations: Abdomen is soft. Tenderness: There is no abdominal tenderness. Genitourinary: Comments: Urethral meatus is unremarkable. De Oliveira catheter leg bag is draining clear yellow urine to gravity Musculoskeletal: General: Normal range of motion. Cervical back: Normal range of motion. Skin: General: Skin is warm and dry. Findings: No rash. Neurological: General: No focal deficit present. Mental Status: He is alert and oriented to person, place, and time. Mental status is at baseline. Psychiatric: Mood and Affect: Mood normal. Behavior: Behavior normal. Thought Content: Thought content normal. Judgment: Judgment normal. ED Course & MDM Diagnoses as of 03/17/25 1452 Dysuria No data recorded Medical Decision Making Bladder scan did not reveal any evidence of overt urinary retention. There is some bacteria in his urinalysis and given that he has a chronic indwelling De Oliveira catheter we will cover him with antibiotics for a few days. Instructed to follow-up with his urologist and return to anytime if worse. Procedure Procedures 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; Service: Cardiovascular; Laterality: N/A; Stage 4 kidney MR HEAD ANGIO WO IV CONTRAST 03/28/2023 MR HEAD ANGIO WO IV CONTRAST 03/28/2023 [facility] MRI MR NECK ANGIO WO IV CONTRAST 03/28/2023 MR NECK ANGIO WO IV CONTRAST 03/28/2023 [facility] MRI OTHER SURGICAL HISTORY 09/26/2019 Appendectomy OTHER SURGICAL HISTORY 09/26/2019 Colonoscopy OTHER SURGICAL HISTORY 09/26/2019 Cataract surgery [3] Family History Problem Relation Name Age of Onset Heart attack Mother Cancer Mother Heart disease Father Heart attack Child Brain cancer Child Diabetes type II Other OTHER Breast cancer Other OTHER [4] Social History Tobacco Use Smoking status: Former Current packs/day: 0.00 Types: Cigarettes Quit date: 1988 Years since quittin.5 Passive exposure: Never Smokeless tobacco: Never Vaping Use Vaping status: Never Used Substance Use Topics Alcohol use: Never Drug use: Never Gopi Vergara DO 03/17/25 1457 [facility] Work Phone: 03-17-2025 Emergency department Note HPI Chief Complaint Patient presents with Urinary Retention Pt has a chronic de oliveira catheter due to prostate issues. He states that it was not draining last night so he changed the last and noted some milky white discharge. Pt notes burning today, but denies fever or chills. Denies blood in the urine Patient presents to the emergency department secondary to concerns for UTI. He states that he was leaking some urine around his chronic indwelling De Oliveira catheter and also was noted to have some discoloration of his urine. Denies flank pain. No fever. History provided by: Patient rn maternity used: No Patient History Medical History[1] Surgical History[2] Family History[3] Social History[4] Physical Exam ED Triage Vitals [03/17/25 1137] Temperature Heart Rate Respirations BP 36.5 C (97.7 F) 63 18 134/55 Pulse Ox Temp Source Heart Rate Source Patient Position 98 % Oral Monitor -- BP Location FiO2 (%) -- -- Physical Exam Vitals and nursing note reviewed. Constitutional: General: He is not in acute distress. Appearance: Normal appearance. He is normal weight. He is not ill-appearing, toxic-appearing or diaphoretic. HENT: Head: Normocephalic and atraumatic. Nose: Nose normal. No rhinorrhea. Neck: Comments: Trachea is midline Cardiovascular: Rate and Rhythm: Normal rate and regular rhythm. Heart sounds: No murmur heard. Pulmonary: Effort: Pulmonary effort is normal. Breath sounds: Normal breath sounds. No wheezing. Abdominal: General: Abdomen is flat. Bowel sounds are normal. There is no distension. Palpations: Abdomen is soft. Tenderness: There is no abdominal tenderness. Genitourinary: Comments: Urethral meatus is unremarkable. De Oliveira catheter leg bag is draining clear yellow urine to gravity Musculoskeletal: General: Normal range of motion. Cervical back: Normal range of motion. Skin: General: Skin is warm and dry. Findings: No rash. Neurological: General: No focal deficit present. Mental Status: He is alert and oriented to person, place, and time. Mental status is at baseline. Psychiatric: Mood and Affect: Mood normal. Behavior: Behavior normal. Thought Content: Thought content normal. Judgment: Judgment normal. ED Course & MDM Diagnoses as of 03/17/25 1452 Dysuria No data recorded Medical Decision Making Bladder scan did not reveal any evidence of overt urinary retention. There is some bacteria in his urinalysis and given that he has a chronic indwelling De Oliveira catheter we will cover him with antibiotics for a few days. Instructed to follow-up with his urologist and return to anytime if worse. Procedure Procedures 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; Service: Cardiovascular; Laterality: N/A; Stage 4 kidney MR HEAD ANGIO WO IV CONTRAST 03/28/2023 MR HEAD ANGIO WO IV CONTRAST 03/28/2023 [facility] MRI MR NECK ANGIO WO IV CONTRAST 03/28/2023 MR NECK ANGIO WO IV CONTRAST 03/28/2023 [facility] MRI OTHER SURGICAL HISTORY 09/26/2019 Appendectomy OTHER SURGICAL HISTORY 09/26/2019 Colonoscopy OTHER SURGICAL HISTORY 09/26/2019 Cataract surgery [3] Family History Problem Relation Name Age of Onset Heart attack Mother Cancer Mother Heart disease Father Heart attack Child Brain cancer Child Diabetes type II Other OTHER Breast cancer Other OTHER [4] Social History Tobacco Use Smoking status: Former Current packs/day: 0.00 Types: Cigarettes Quit date: 1988 Years since quittin.5 Passive exposure: Never Smokeless tobacco: Never Vaping Use Vaping status: Never Used Substance Use Topics Alcohol use: Never Drug use: Never Gopi Vergara DO 03/17/25 1453 documented in this encounter [facility] Work Phone: 03-11-2025 History of Present illness Narrative Patient: Kitty Stallworth" : 1940 PCP: Daniel Almanzar MD Program: Transitional Care Management Status: Enrolled Effective Dates: 03/06/2025 - present Responsible Staff: Erica Ying RN Social Drivers to be Addressed: Physical Activity, Stress, Tobacco Use Kitty Stallworth" is a 84 y.o. male presenting today for follow-up after being discharged from the hospital 6 days ago. The main problem requiring admission was bradycardia. The discharge summary and/or Transitional Care Management documentation was reviewed. Medication reconciliation was performed as indicated via the "Davin as Reviewed" timestamp. Kitty Stallworth" was contacted by Transitional Care Management services two days after his discharge. This encounter and supporting documentation was reviewed. Today he does seem to have more energy, color is a little bit better. Seems like the infection is under control being followed by urology. Radiology has done the stents and is now helping with the electrical picture, still may need a pacemaker, but that seems to be under better control. Did repeat basic labs A1c was down to 6.6 the other labs are stable except for some mild anemia but stable. Overall his labs looked good. For now we will have him follow-up with urology and cardiology. No changes to the diabetic medications Review of Systems Constitutional: Positive for fatigue. Respiratory: Negative for shortness of breath. Cardiovascular: Negative for chest pain, palpitations and leg swelling. Gastrointestinal: Negative for diarrhea and nausea. Skin: Negative for rash. Neurological: Negative for light-headedness and headaches. BP 126/58 Pulse 54 Ht 1.829 m (6') Wt 106 kg (234 lb 3.2 oz) SpO2 99% BMI 31.76 kg/m Physical Exam Constitutional: Appearance: Normal appearance. HENT: Head: Normocephalic and atraumatic. Cardiovascular: Rate and Rhythm: Normal rate and regular rhythm. Heart sounds: Normal heart sounds. Pulmonary: Effort: Pulmonary effort is normal. Breath sounds: Normal breath sounds. Skin: General: Skin is warm and dry. Neurological: General: No focal deficit present. Mental Status: He is alert and oriented to person, place, and time. Psychiatric: Mood and Affect: Mood normal. Behavior: Behavior normal. Thought Content: Thought content normal. Judgment: Judgment normal. The complexity of medical decision making for this patient's transitional care is high. Assessment/Plan Problem List Items Addressed This Visit ICD-10-CM Hypertension I10 Relevant Medications amLODIPine (Norvasc) 10 mg tablet Type 2 diabetes mellitus with chronic kidney disease, with long-term current use of insulin (Multi) E11.22, Z79.4 Chronic kidney disease (CKD), stage IV (severe) (Multi) N18.4 Bradycardia - Primary R00.1 documented in this encounter [facility] Work Phone: 03-05-2025 History of Present illness Narrative 03/05/25 6668 Discharge Planning Living Arrangements Spouse/significant other Support Systems Spouse/significant other;Family members;Friends/neighbors Assistance Needed walker Type of Residence Private residence Number of Stairs to Enter Residence 0 Number of Stairs Within Residence 0 Do you have animals or pets at home? No Who is requesting discharge planning? Provider Home or Post Acute Services None Expected Discharge Disposition Home Does the patient need discharge transport arranged? No Financial Resource Strain How hard is it for you to pay for the very basics like food, housing, medical care, and heating? Not hard Housing Stability In the last 12 months, was there a time when you were not able to pay the mortgage or rent on time? N In the past 12 months, how many times have you moved where you were living? 0 At any time in the past 12 months, were you homeless or living in a senior living (including now)? N Transportation Needs In the past 12 months, has lack of transportation kept you from medical appointments or from getting medications? no In the past 12 months, has lack of transportation kept you from meetings, work, or from getting things needed for daily living? No Stroke Family Assessment Stroke Family Assessment Needed No Intensity of Service Intensity of Service 0-30 min Care Transitions: Patient reviewed in care round meeting this AM and he is medically ready for discharge today. Met with patient and spouse in room. Role of TCC explained. Demographics and contacts verified. He has been residing in a one story home since around 2006. PCP [address] Almanzar. Preferred pharmacy is [facility] in [place]. Denies any difficulty obtaining/affording medications. He is independent at home with Adl[employer] and drives self. He has a walker, cane, walk in shower with bench. Denies the need for any other DME equipment or diabetic supplies. States he checks his blood sugar via fingerstick every AM. [facility] per nursing. Discharge plan is return home with , denies nay needs. States he started cardiac outpatient rehab and has been there twice. His next scheduled cardiac rehab appointment is tomorrow. States he will all then and speak about putting his therapy on hold as he does not wish to complete it right now. No further needs anticipated. Care team available upon request. Sheron Mitchell RN/[facility] Physical Therapy Therapy Communication Note Patient Name: Kitty Allen Department: [facility] Room: 320/320-A Today's Date: 03/05/2025 Discipline: Physical Therapy Missed Visit Reason: Pt needing stat EKG. Will hold PT evalution until medically cleared. Addendum: Will hold PT evalution until medically cleared. Checked on pt again at 1344 and hospitalist was present in room. Hospitalist states that he is sending pt home and no need to complete PT eval at this time. Nursing verifies that pt has been able to go to and from bathroom and manage ADLs with no physical assistance. Occupational Therapy Therapy Communication Note Patient Name: Kitty Allen Department: [facility] Room: 320/320-A Today's Date: 03/05/2025 Discipline: Occupational Therapy Missed Visit: Missed Visit Reason: Missed Visit Reason: Other (Comment) (pt needing stat EKG. Will hold OT eval until medically cleared.) Will hold OT evalution until medically cleared. Checked on pt again at 1344 and hospitalist was present in room. Hospitalist states that he is sending pt home and no need to complete OT eval at this time. Nursing verifies that pt has been able to go to and from bathroom and manage ADLs with no physical assistance. Subjective Data: Patient sitting up in his chair eating breakfast, spouse present. He denies any complaints at present. Patient is established with Dr. Fay in the outpatient setting. Objective Data: Last Recorded Vitals: Vitals: 03/05/25 0748 03/05/25 0751 03/05/25 0806 03/05/25 0906 BP: (!) 193/80 (!) 198/96 176/82 154/60 BP Location: Left arm Right arm Left arm Left arm Patient Position: Lying Lying Sitting Sitting Pulse: 58 61 Resp: 12 Temp: 35.9 C (96.6 F) TempSrc: Temporal SpO2: 98% Weight: Height: Last Labs: CBC - 03/05/2025: 4:20 AM 7.9 11.0 160 34.1 CMP - 03/05/2025: 4:20 AM 8.5 7.1 18 --- 0.7 3.2 3.9 12 90 PTT - No results in last year. _ _ _ TROPHS Date/Time Value Ref Range Status 03/04/2025 02:12 PM 11 0 - 20 ng/L Final 03/04/2025 01:10 PM 13 0 - 20 ng/L Final 10/18/2024 03:57 PM 11 0 - 20 ng/L Final BNP Date/Time Value Ref Range Status 10/18/2024 03:57 PM 321 0 - 99 pg/mL Final HGBA1C Date/Time Value Ref Range Status 09/05/2024 07:38 AM 7.2 See comment % Final 05/08/2024 07:33 AM 7.3 see below % Final LDLCALC Date/Time Value Ref Range Status 09/26/2024 07:54 AM 42 <=99 mg/dL Final Comment: Near Borderline AGE Desirable Optimal High High Very High 0-19 Y 0 - 109 --- 110-129 >/= 130 ---- 20-24 Y 0 - 119 --- 120-159 >/= 160 ---- >24 Y 0 - 99 100-129 130-159 160-189 >/=190 VLDL Date/Time Value Ref Range Status 09/26/2024 07:54 AM 60 0 - 40 mg/dL Final 03/29/2022 07:54 AM SEE COMMENT 0 - 40 mg/dL Final Comment: Unable to calculate VLDL. 03/29/2020 08:37 AM SEE COMMENT 0 - 40 mg/dL Final Comment: Unable to calculate VLDL. Last I/O: I/O last 3 completed shifts: In: - (0 mL/kg) Out: 1994 (19.1 mL/kg) [Urine:1994 (0.5 mL/kg/hr)] Weight: 104.5 kg Past Cardiology Tests (Last 3 Years): EKG: ECG 12 lead 03/04/2025 (Preliminary) ECG 12 lead 03/04/2025 (Preliminary) ECG 12 lead STAT 01/19/2025 Electrocardiogram 12 Lead 01/19/2025 ECG 12 lead (Clinic Performed) 12/08/2024 ECG 12 lead ECG 12 lead 05/29/2024 Echo: Transthoracic Echo (TTE) Complete 10/20/2024 Ejection Fractions: EF Date/Time Value Ref Range Status 10/20/2024 07:19 AM 67 % Cath: Cardiac Catheterization Procedure 01/19/2025 Stress Test: No results found for this or any previous visit from the past 1095 days. Cardiac Imaging: No results found for this or any previous visit from the past 1095 days. Inpatient Medications: Scheduled Medications[1] PRN Medications[2] Continuous Medications[3] Physical Exam: General: awake, alert and oriented. No acute distress. Skin: Skin is warm, dry and intact without rashes or lesions. HEENT: normocephalic, atraumatic; conjunctivae are clear without exudates or hemorrhage. Sclera is non-icteric. Eyelids are normal in appearance without swelling or lesions. Hearing intact. Nares are patent bilaterally. Moist mucous membranes. Cardiovascular: heart rate and rhythm are normal. Murmur present Musculoskeletal: no deformities Extremities: no edema Neurological: no focal deficits Psychiatric: appropriate mood and affect; good judgment and insight Assessment/Plan Dizziness Bradycardia -Telemetry showing HR at 60 bpm; patient asymptomatic -Patient previously on carvedilol for BP control and was stopped on admission due to low heart rate -Currently, patient asymptomatic with no AV reji blocking agents on board and HR at 60 bpm. We will continue to evaluate HR and symptoms. Will order a 7-day event monitor at discharge and have patient see Dr. Fay in the outpatient setting for further evaluation. HTN: -BP not at goal and not currently on any anti-hypertensive due to low HR from BB. Patient has known CKD and follows with Nephrology. Will start ARB Thank you for allowing me to participate in the care of this patient. Please reach me out if you have any questions or if you need any clarifications regarding the patient's care. Peripheral IV 03/04/25 20 G Right Antecubital (Active) Site Assessment Dry;Clean;Intact 03/05/25 0753 Dressing Type Transparent 03/05/25 0753 Line Status Flushed;Saline locked 03/05/25 0753 Dressing Status Clean;Dry 03/05/25 0753 Number of days: 1 Urethral Catheter Coude 16 Fr. (Active) Site Assessment Clean;Skin intact 03/05/25 0748 Number of days: 5 Code Status: Full Code ERUM Sotelo DNP [1] Scheduled medications Medication Dose Route Frequency allopurinol 300 mg oral Daily aspirin 81 mg oral Daily bumetanide 0.5 mg oral Daily cetirizine 10 mg oral Daily ciprofloxacin 250 mg oral Daily clopidogrel 75 mg oral Daily empagliflozin 10 mg oral Daily ezetimibe 10 mg oral Daily finasteride 5 mg oral Daily gabapentin 300 mg oral BID heparin (porcine) 5,000 Units subcutaneous q8h insulin glargine 19 Units subcutaneous q AM insulin lispro 0-10 Units subcutaneous TID AC lidocaine 1 Application urethral Once losartan 50 mg oral Daily tamsulosin 0.4 mg oral Daily [2] PRN medications Medication acetaminophen dextrose dextrose glucagon glucagon hydrALAZINE HYDROcodone-acetaminophen magnesium hydroxide melatonin ondansetron [3] Continuous Medications Medication Dose Last Rate documented in this encounter [facility] Work Phone: 03-05-2025 Hospital course Narrative Discharge summary. Kitty Vergara 84 y.o. 1940 [id number] Date of admission: 03/04/2025 Date of discharge: 03/05/2025 Discharge Diagnosis: #1 symptomatic bradycardia. #2 recent E. coli acute cystitis/UTI. #3 chronic urinary retention. Problem list: Patient Active Problem List Diagnosis Date Noted Bradycardia 03/04/2025 H/O heart artery stent 02/25/2025 Chronic kidney disease (CKD), stage IV (severe) (Multi) 12/08/2024 Nonrheumatic aortic valve stenosis 10/31/2024 Lesion of bladder 10/07/2024 Erectile dysfunction 10/01/2024 Urinary retention 10/01/2024 Type 2 diabetes mellitus with chronic kidney disease, with long-term current use of insulin (Multi) 09/09/2024 Primary osteoarthritis of right shoulder 08/28/2023 Chronic right shoulder pain 02/22/2023 BPH (benign prostatic hyperplasia) 02/21/2023 Chronic GERD 02/21/2023 Edema of both legs 02/21/2023 Gout 02/21/2023 Hyperlipidemia 02/21/2023 Hypertension 02/21/2023 Nocturia 02/21/2023 Obesity 02/21/2023 Enlarged prostate with urinary obstruction 02/05/2025 Bladder tumor 10/16/2024 Discharge medications: Your medication list START taking these medications Instructions Last Dose Given Next Dose Due amLODIPine 10 mg tablet Commonly known as: Norvasc Start taking on: March 06, 2025 Take 1 tablet (10 mg) by mouth once daily. Do not fill before March 06, 2025. CHANGE how you take these medications Instructions Last Dose Given Next Dose Due ciprofloxacin 500 mg tablet Commonly known as: Cipro What changed: Another medication with the same name was added. Make sure you understand how and when to take each. Take 1 tablet (500 mg) by mouth 2 times a day for 7 days. ciprofloxacin 250 mg tablet Commonly known as: Cipro Start taking on: March 06, 2025 What changed: You were already taking a medication with the same name, and this prescription was added. Make sure you understand how and when to take each. Take 1 tablet (250 mg) by mouth once daily for 8 doses. Soliqua 100/33 100 unit-33 mcg/mL insulin pen Generic drug: insulin glargine-lixisenatide What changed: how much to take Inject 30 Units under the skin once daily. CONTINUE taking these medications Instructions Last Dose Given Next Dose Due Advanced Gluc Meter Test Strip Generic drug: blood sugar diagnostic 1 strip once daily. allopurinol 300 mg tablet Commonly known as: Zyloprim Take 1 tablet (300 mg) by mouth once daily. aspirin 81 mg chewable tablet Chew 1 tablet (81 mg) once daily. bumetanide 0.5 mg tablet Commonly known as: Bumex Take 1 tablet (0.5 mg) by mouth once daily. cholecalciferol 25 mcg (1,000 units) capsule Commonly known as: Vitamin D-3 clopidogrel 75 mg tablet Commonly known as: Plavix Take 1 tablet (75 mg) by mouth once daily. Do not fill before January 26, 2025. empagliflozin 10 mg tablet Commonly known as: Jardiance Take 1 tablet (10 mg) by mouth once daily. ezetimibe 10 mg tablet Commonly known as: Zetia Take 1 tablet (10 mg) by mouth once daily. finasteride 5 mg tablet Commonly known as: Proscar Take 1 tablet (5 mg) by mouth once daily. Do not crush, chew, or split. gabapentin 300 mg capsule Commonly known as: Neurontin HYDROcodone-acetaminophen 5-325 mg tablet Commonly known as: Tensed Take 1 tablet by mouth every 6 hours if needed for severe pain (7 - 10). loratadine 10 mg tablet Commonly known as: Claritin OSTEO BI-FLEX ORAL pen needle, diabetic 31 gauge x 5/16" needle 1 each once daily. PREVACID ORAL tamsulosin 0.4 mg 24 hr capsule Commonly known as: Flomax Take 1 capsule (0.4 mg) by mouth once daily. STOP taking these medications carvedilol 6.25 mg tablet Commonly known as: Coreg phenazopyridine 200 mg tablet Commonly known as: Pyridium Where to Get Your Medications These medications were sent to [facility] [address] [place] [address] Hours: 8 AM to 5:30 Mon-Fri, 8 AM to 4 PM Sunday and Sunday amLODIPine 10 mg tablet ciprofloxacin 250 mg tablet Information about where to get these medications is not yet available Ask your nurse or doctor about these medications Soliqua 100/33 100 unit-33 mcg/mL insulin pen Hospital Course This is an 84 years old male patient presented to the emergency room because of lightheadedness and weakness and he was found to have bradycardia with heart rate down to 30s. 4 days ago, patient was found to have UTI and he was started on ciprofloxacin. He had a history of chronic urinary retention and he has been on De Oliveira catheter since September 2024. EKG revealed sinus bradycardia with heart rate down to 50s. In the ER and on telemetry, heart rate was down to 30s. Patient had another EKG that showed possible atrial fibrillation but this was reviewed by cardiology and recommended that this is not A-fib and it is sinus bradycardia. Routine blood work was remarkable for chronic kidney disease with stable BUN and creatinine. Serum electrolytes were within normal limits. Troponin was normal x 2. TSH was normal. Patient was on carvedilol which was discontinued this admission. De Oliveira catheter was replaced by a new 1 and repeat urinalysis done that showed clear urine, negative for nitrite, 500 leukocyte esterase, 11-20 WBCs, 1+ bacteria. Patient was continued on ciprofloxacin renally adjusted dose twice a day. Urine culture that was done as outpatient resulted on 03/02/2025 and showed E. coli that was sensitive to ciprofloxacin. Cardiology consulted and evaluated the patient. After discontinuation of carvedilol, patient's heart rate improved to 60s and symptoms improved. Cardiology recommended 7 days Holter monitor and follow-up with cardiology as outpatient. Patient discharged home in stable medical condition, he was started on amlodipine 10 mg daily for hypertension, carvedilol discontinued, continued on ciprofloxacin 250 mg twice a day and instructed patient to complete 4 days more of treatment, continued on other previous home medications without any changes, recommended follow-up with PCP in 1 week, follow-up with cardiology next week and instructed follow-up with urology as scheduled. Vital signs: Visit Vitals BP 151/73 (BP Location: Left arm, Patient Position: Sitting) Pulse 52 Temp 35.6 C (96.1 F) (Temporal) Resp 16 Ht 1.791 m (5' 10.5") Wt 104 kg (230 lb 6.1 oz) SpO2 98% BMI 32.59 kg/m Smoking Status Former BSA 2.29 m Discharge physical exam: Physical Exam: General: Awake, alert, oriented x3, no significant distress, cooperative. HEENT: EOM intact, PERRLA. Neck: Supple, no JVD, no masses, no lymphadenopathy. Chest: Diminished breath sounds bilateral, otherwise clear, no wheezes, no crackles, no rhonchi. Heart: Regular rate and rhythm, S1-S2 normal, no murmur, no gallops, bradycardia, systolic murmur. Abdomen: Soft, nontender, no organomegaly, no ascites, no guarding or rigidity. Neurological: Alert and oriented x3, cranial nerves are intact, normal power and tone of 4 limbs. Skin: No lesions, no skin rash. Warm and dry. Musculoskeletal: Normal, atraumatic, no obvious deformities. Legs: + leg edema, no clubbing or cyanosis. Psych: Appropriate mood and behavior. Labs: ,lastc Lab Results Component Value Date GLUCOSE 111 (H) 03/05/2025 CALCIUM 8.5 (L) 03/05/2025 NA 139 03/05/2025 K 3.9 03/05/2025 CO2 23 03/05/2025 CL 107 03/05/2025 BUN 38 (H) 03/05/2025 CREATININE 2.26 (H) 03/05/2025 Lab Results Component Value Date ALT 12 03/04/2025 AST 18 03/04/2025 ALKPHOS 90 03/04/2025 BILITOT 0.7 03/04/2025 Imaging studies: Procedure Component Value Units Date/Time XR chest 1 view [[id number]] Collected: 03/04/251324 Order Status: Completed Updated: 03/04/251324 Narrative: Interpreted By: Joan Fish, STUDY: XR CHEST 1 VIEW; 03/04/2025 1:08 pm INDICATION: Signs/Symptoms:Chest Pain. COMPARISON: 10/18/2024 ACCESSION NUMBER(S): [id number] ORDERING CLINICIAN: SANYA SHIN FINDINGS: AP radiograph of the chest was provided. CARDIOMEDIASTINAL SILHOUETTE: Persistently enlarged cardiomediastinal silhouette. LUNGS: Persistent mild bibasilar atelectasis. Mild diffuse coarse interstitial lung markings, likely chronic interstitial lung disease. No new airspace consolidation, pulmonary edema, pleural effusion, or pneumothorax. ABDOMEN: No remarkable upper abdominal findings. BONES: No acute osseous changes. Impression: No significant interval change from prior radiograph from September 2024, with no evidence of acute cardiopulmonary process. Signed by: Joan Fish 03/04/2025 1:23 PM Dictation workstation: [id number] Disposition: Home self-care. Time spent on discharge and discharge summary is 32 minutes. Cheikh Horne MD 03/05/25 4:05 PM documented in this encounter [facility] Work Phone: 03-05-2025 Hospital Discharge instructions Cheikh Horne MD - 03/05/2025 1:50 PM EDT Continue taking ciprofloxacin 250 mg twice a day for 4 days more. The following attachments cannot be sent through Care Everywhere.Bradycardia (Israeli)documented in this encounter [facility] Work Phone: 03-05-2025 Nurse Note Tati Phoenix NP with cardiology, notified about the pt's telemetry appearing to be Atrial Flutter with a 3:1 conduction. Follow EKG was performed showing Sinus Bradycardia with 1st degree AV block. No med changes at this moment. [facility] Work Phone: 03-05-2025 Nurse Note Tati Phoenix NP with cardiology, notified about the pt's telemetry appearing to be Atrial Flutter with a 3:1 conduction. Follow EKG was performed showing Sinus Bradycardia with 1st degree AV block. No med changes at this moment. documented in this encounter [facility] Work Phone: 03-05-2025 Plan of care note The patient's goals for the shift include Problem: Pain - Adult Goal: Verbalizes/displays adequate comfort level or baseline comfort level Outcome: Progressing Problem: Safety - Adult Goal: Free from fall injury Outcome: Progressing Problem: Discharge Planning Goal: Discharge to home or other facility with appropriate resources Outcome: Progressing Problem: Chronic Conditions and Co-morbidities Goal: Patient's chronic conditions and co-morbidity symptoms are monitored and maintained or improved Outcome: Progressing Problem: Nutrition Goal: Nutrient intake appropriate for maintaining nutritional needs Outcome: Progressing Problem: Arrythmia/Dysrhythmia Goal: Lab values return to normal range Outcome: Progressing Goal: No evidence of post procedure complications Outcome: Progressing Goal: Promote self management Outcome: Progressing Goal: Serial ECG will return to baseline Outcome: Progressing Goal: Verbalize understanding of procedures/devices Outcome: Progressing Goal: Vital signs return to baseline Outcome: Progressing Goal: Care and maintenance of device (specify) Outcome: Progressing The clinical goals for the shift include maintain patient safety Pt seen by cardiology today, Losartan added to care plan, and plans for the pt to discharge home with a holter monitor. [facility] Work Phone: 03-05-2025 Miscellaneous Notes The patient's goals for the shift include Problem: Pain - Adult Goal: Verbalizes/displays adequate comfort level or baseline comfort level Outcome: Progressing Problem: Safety - Adult Goal: Free from fall injury Outcome: Progressing Problem: Discharge Planning Goal: Discharge to home or other facility with appropriate resources Outcome: Progressing Problem: Chronic Conditions and Co-morbidities Goal: Patient's chronic conditions and co-morbidity symptoms are monitored and maintained or improved Outcome: Progressing Problem: Nutrition Goal: Nutrient intake appropriate for maintaining nutritional needs Outcome: Progressing Problem: Arrythmia/Dysrhythmia Goal: Lab values return to normal range Outcome: Progressing Goal: No evidence of post procedure complications Outcome: Progressing Goal: Promote self management Outcome: Progressing Goal: Serial ECG will return to baseline Outcome: Progressing Goal: Verbalize understanding of procedures/devices Outcome: Progressing Goal: Vital signs return to baseline Outcome: Progressing Goal: Care and maintenance of device (specify) Outcome: Progressing The clinical goals for the shift include maintain patient safety Pt seen by cardiology today, Losartan added to care plan, and plans for the pt to discharge home with a holter monitor. The patient's goals for the shift include rest and comfort The clinical goals for the shift include maintain patient safety Over the shift, the patient did make progress toward the following goals. Barriers to progression include none. Recommendations to address these barriers include none. The patient's goals for the shift include Problem: Pain - Adult Goal: Verbalizes/displays adequate comfort level or baseline comfort level 03/04/20251853 by Ashley Solano RN Outcome: Progressing 03/04/20251853 by Ashley Sloano RN Outcome: Progressing Problem: Safety - Adult Goal: Free from fall injury 03/04/20251853 by Ashley Solano RN Outcome: Progressing 03/04/20251853 by Ashley Solano RN Outcome: Progressing Problem: Discharge Planning Goal: Discharge to home or other facility with appropriate resources 03/04/20251853 by Ashley Solano RN Outcome: Progressing 03/04/20251853 by Ashley Solano RN Outcome: Progressing Problem: Chronic Conditions and Co-morbidities Goal: Patient's chronic conditions and co-morbidity symptoms are monitored and maintained or improved 03/04/20251853 by Ashley Solano RN Outcome: Progressing 03/04/20251853 by Ashley Solano RN Outcome: Progressing Problem: Nutrition Goal: Nutrient intake appropriate for maintaining nutritional needs 03/04/20251853 by Ashley Solano RN Outcome: Progressing 03/04/20251853 by Ashley Solano RN Outcome: Progressing Problem: Arrythmia/Dysrhythmia Goal: Lab values return to normal range 03/04/20251853 by Ashley Solano RN Outcome: Progressing 03/04/20251853 by Ashley Solano RN Outcome: Progressing Goal: No evidence of post procedure complications 03/04/20251853 by Ashley Solano RN Outcome: Progressing 03/04/20251853 by Ashley Solano RN Outcome: Progressing Goal: Promote self management 03/04/20251853 by Ashley Solano RN Outcome: Progressing 03/04/20251853 by Ashley Solano RN Outcome: Progressing Goal: Serial ECG will return to baseline 03/04/20251853 by Ashley Solano RN Outcome: Progressing 03/04/20251853 by Ashley Solano RN Outcome: Progressing Goal: Verbalize understanding of procedures/devices 03/04/20251853 by Ashley Solano RN Outcome: Progressing 03/04/20251853 by Ashley Solano RN Outcome: Progressing Goal: Vital signs return to baseline 03/04/20251853 by Ashley Solano RN Outcome: Progressing 03/04/20251853 by Ashley Solano RN Outcome: Progressing Goal: Care and maintenance of device (specify) 03/04/20251853 by Ashley Solano RN Outcome: Progressing 03/04/20251853 by Ashley Solano RN Outcome: Progressing The clinical goals for the shift include Pt will have no falls by the end of this shift. Pt admitted to [facility] tele unit for symptomatic bradycardia. documented in this encounter [facility] Work Phone: 03-05-2025 Plan of care note The patient's goals for the shift include rest and comfort The clinical goals for the shift include maintain patient safety Over the shift, the patient did make progress toward the following goals. Barriers to progression include none. Recommendations to address these barriers include none. [facility] 03-04-2025 Consult note Associated Order (s): Inpatient consult to Cardiology Inpatient consult to Cardiology Consult performed by: Nima Fay MD Consult ordered by: Cheikh Horne MD Reason for consult: symptomatic bradycardia History Of Present Illness: Mr. Kitty Vergara is a 84 y.o. year old former smoker diabetic male patient being consulted by the Cardiology team for symptomatic bradycardia. Patient with prior medical history significant for moderate to severe aortic stenosis, CAD S/P PCI to LAD (01/19/2025), hypertension, diabetes, hyperlipidemia, GERD, neuropathy, Gout, CKD stage III, edema R leg, indwelling catheter. He presented to ED [facility] on 03/04/2025 complaining of dizziness, lightheadedness and fatigue for the past day. Notably, he has De Oliveira catheter and had been treated with Cipro for the past 4 days prior to admission. He endorsed that he felt those symptoms while seating, but denied losing consciousness. He indeed had been feeling dizzy for the past 3 days. He is also on beta-jami. Notably, he had been previously brought to ED [facility] on 10/18/2024 after losing his consciouness. He denied chest pain, shortness of breath, palpitations, leg edema, fever, chills, bleeding, orthopnea, paroxysmal nocturnal dyspnea or syncope. EKG showing sinus bradycardia ~50bpm with non-specific ST-T changes. Crea 2.3, BUN 41, Hb 11.3, trop 11 - 13, BNP 321. Patient has been admitted for clinical compensation. Last Recorded Vitals: Vitals: 03/04/25 1644 03/04/25 1700 03/04/25 1722 03/04/25 2100 BP: 154/73 (!) 184/73 160/71 BP Location: Left arm Pulse: 51 52 60 Resp: 18 16 Temp: 36.5 C (97.7 F) 35.8 C (96.4 F) TempSrc: Temporal SpO2: 98% 99% 97% Weight: 104 kg (230 lb 6.1 oz) Height: 1.791 m (5' 10.5") Last Labs: CBC - 03/04/2025: 1:10 PM 9.8 11.3 175 35.1 CMP - 03/04/2025: 1:10 PM 9.0 7.1 18 --- 0.7 3.2 3.9 12 90 PTT - No results in last year. _ _ _ Troponin I, High Sensitivity Date/Time Value Ref Range Status 03/04/2025 02:12 PM 11 0 - 20 ng/L Final 03/04/2025 01:10 PM 13 0 - 20 ng/L Final 10/18/2024 03:57 PM 11 0 - 20 ng/L Final BNP Date/Time Value Ref Range Status 10/18/2024 03:57 PM 321 (H) 0 - 99 pg/mL Final Hemoglobin A1C Date/Time Value Ref Range Status 09/05/2024 07:38 AM 7.2 (H) See comment % Final 05/08/2024 07:33 AM 7.3 (H) see below % Final LDL Calculated Date/Time Value Ref Range Status 09/26/2024 07:54 AM 42 <=99 mg/dL Final Comment: Near Borderline AGE Desirable Optimal High High Very High 0-19 Y 0 - 109 --- 110-129 >/= 130 ---- 20-24 Y 0 - 119 --- 120-159 >/= 160 ---- >24 Y 0 - 99 100-129 130-159 160-189 >/=190 VLDL Date/Time Value Ref Range Status 09/26/2024 07:54 AM 60 (H) 0 - 40 mg/dL Final 03/29/2022 07:54 AM SEE COMMENT 0 - 40 mg/dL Final Comment: Unable to calculate VLDL. 03/29/2020 08:37 AM SEE COMMENT 0 - 40 mg/dL Final Comment: Unable to calculate VLDL. Last I/O: I/O last 3 completed shifts: In: - (0 mL/kg) Out: 220 (2.1 mL/kg) [Urine:220 (0.1 mL/kg/hr)] Weight: 104.5 kg Past Cardiology Tests (Last 3 Years): EKG: ECG 12 lead 03/04/2025 (Wet Read) ECG 12 lead 03/04/2025 (Wet Read) ECG 12 lead STAT 01/19/2025 Electrocardiogram 12 Lead 01/19/2025 ECG 12 lead (Clinic Performed) 12/08/2024 ECG 12 lead ECG 12 lead 05/29/2024 Echo: Transthoracic Echo (TTE) Complete 10/20/2024 Ejection Fractions: EF Date/Time Value Ref Range Status 10/20/2024 07:19 AM 67 % Cath: Cardiac Catheterization Procedure 01/19/2025 Stress Test: No results found for this or any previous visit from the past 1095 days. Cardiac Imaging: No results found for this or any previous visit from the past 1095 days. Past Medical History: He has a past medical history of BPH (benign prostatic hyperplasia), GERD (gastroesophageal reflux disease), Gout, Hyperlipidemia, Hypertension, Indwelling urinary catheter present, Neuropathy, peripheral, autonomic, idiopathic (02/21/2023), and Type 2 diabetes mellitus. Past Surgical History: He has a past surgical history that includes Other surgical history (09/26/2019); Other surgical history (09/26/2019); Other surgical history (09/26/2019); MR angio head wo IV contrast (03/28/2023); MR angio neck wo IV contrast (03/28/2023); and Cardiac catheterization (N/A, 01/19/2025). Social History: He reports that he quit smoking about 36 years ago. His smoking use included cigarettes. He has never been exposed to tobacco smoke. He has never used smokeless tobacco. He reports that he does not drink alcohol and does not use drugs. Family History: Family History[1] Allergies: Iodine, Pregabalin, and Bjfgvla-xsh-nec reductase inhibitors Inpatient Medications: Scheduled Medications[2] PRN Medications[3] Continuous Medications[4] Outpatient Medications: Current Outpatient Medications Medication Instructions allopurinol (ZYLOPRIM) 300 mg, oral, Daily aspirin 81 mg, oral, Daily blood sugar diagnostic (Advanced Gluc Meter Test Strip) strip 1 strip, miscellaneous, Daily bumetanide (BUMEX) 0.5 mg, oral, Daily carvedilol (COREG) 6.25 mg, oral, 2 times daily (morning and late afternoon) cholecalciferol (Vitamin D-3) 25 MCG (1000 UT) capsule 1 capsule, Daily ciprofloxacin (CIPRO) 500 mg, oral, 2 times daily clopidogrel (PLAVIX) 75 mg, oral, Daily empagliflozin (JARDIANCE) 10 mg, oral, Daily ezetimibe (ZETIA) 10 mg, oral, Daily finasteride (PROSCAR) 5 mg, oral, Daily, Do not crush, chew, or split. gabapentin (Neurontin) 300 mg capsule 1 capsule, 2 times daily glucosamine/chondr hogue A sod (OSTEO BI-FLEX ORAL) 1 capsule, Daily HYDROcodone-acetaminophen (Tensed) 5-325 mg tablet 1 tablet, oral, Every 6 hours PRN insulin glargine-lixisenatide (Soliqua 100/33) 100 unit-33 mcg/mL insulin pen 30 Units, subcutaneous, Daily lansoprazole (PREVACID ORAL) 1 capsule, Daily loratadine (CLARITIN) 10 mg, Daily pen needle, diabetic 31 gauge x 5/16" needle 1 each, miscellaneous, Daily phenazopyridine (PYRIDIUM) 200 mg, oral, 3 times daily PRN tamsulosin (FLOMAX) 0.4 mg, oral, Daily Physical Exam: General: alert, oriented and in no acute distress HEENT: NC/AT; EOMI; PERRLA, external ear is normal Neck: supple; trachea midline; no masses; no JVD Chest: clear breath sounds bilaterally; no wheezing Cardio: regular rhythm, S1S2 normal, no murmurs Abdomen: Soft, non-tender, non-distension, no organomegaly Extremities: Edema R leg; good healing access site; indwelling catheter. Neuro: Grossly intact Psychiatric: Normal mood and affect Assessment/Plan Mr. Kitty Vergara is a 84 y.o. year old former smoker diabetic male patient being consulted by the Cardiology team for symptomatic bradycardia. Patient with prior medical history significant for moderate to severe aortic stenosis, CAD S/P PCI to LAD (01/19/2025), hypertension, diabetes, hyperlipidemia, GERD, neuropathy, Gout, CKD stage III, edema R leg, indwelling catheter. He presented to ED [facility] on 03/04/2025 complaining of dizziness, lightheadedness and fatigue for the past day. Notably, he has De Oliveira catheter and had been treated with Cipro for the past 4 days prior to admission. He endorsed that he felt those symptoms while seating, but denied losing consciousness. He indeed had been feeling dizzy for the past 3 days. He is also on beta-jami. Notably, he had been previously brought to ED [facility] on 10/18/2024 after losing his consciouness. He denied chest pain, shortness of breath, palpitations, leg edema, fever, chills, bleeding, orthopnea, paroxysmal nocturnal dyspnea or syncope. EKG showing sinus bradycardia ~50bpm with non-specific ST-T changes. Crea 2.3, BUN 41, Hb 11.3, trop 11 - 13, BNP 321. Patient has been admitted for clinical compensation. Assessment # Symptomatic bradycardia in the setting of UTI and beta-jami - Trop 11 - 13. - BNP 321. - Patient complaining of dizziness, lightheadedness and fatigue for the past day. Notably, he has De Oliveira catheter and had been treated with Cipro for the past 4 days prior to admission. He endorsed that he felt those symptoms while seating, but denied losing consciousness. - EKG showing sinus bradycardia ~50bpm with non-specific ST-T changes. - Would suggest to hold beta-jami - Carvedilol 6.25mg BID at this point. - Would suggest 7-day holter monitor upon discharge. - Follow up in Cardiology clinic. We will discuss EP evaluation. # Moderate to severe aortic stenosis - Reports shortness of breath on exertion. - Echo (09/2024): 1. Poorly visualized anatomical structures due to suboptimal image quality. 2. Left ventricular ejection fraction is normal, calculated by Villalobos's biplane at 67%. 3. Spectral Doppler shows a Grade II (pseudonormal pattern) of left ventricular diastolic filling with an elevated left atrial pressure. 4. There is normal right ventricular global systolic function. 5. Moderate to severe aortic valve stenosis. 6. Compared to prior TTE dated 03/28/2023 - aortic stenosis has progressed and now appears to be moderate-severe. 7. The patient is in atrial fibrillation which may influence the estimate of left ventricular function and transvalvular flows. - New EKG showing sinus rhythm. - Right and Left Heart Catheterization (01/19/2025): Single vessel coronary artery disease Prox-mid LAD diffuse calcified 80% lesion Prox 1st OM 60% lesion RCA with irregularities Preserved LV systolic function Peak to peak gradient ~20mmHg, consistent with moderate aortic stenosis PWP 25, PA 46/23 (32), RV 51/12 (20), RA 17mmHg; LVeDP 19mmHg; CO 7.5, CI 3.4 S/P successful DFR to prox 1st OM resulting 0.98, deemed to be non-ischemic, therefore we have opted to defer the treatment for this lesion. S/P successful DFR to mid LAD resulting 0.86, deemed to be ischemic, therefore we have opted to proceed with the treatment for this lesion. S/P Successful PCI to prox-mid LAD using 2 WILLIE 3.0/38mm and 3.0/8mm (post-dil 3.5mm NC balloon) guided by IVUS - Keep ASA 81mg daily, Clopidogrel, beta-jami. - Patient intolerant to statins. - Cardiac rehab. - Bumex 0.5mg daily for R leg swelling. 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 - Crea 2.3. - BUN 41. - Indwelling catheter. May need Urological procedure. - Would suggest follow up with Nephrology / Urology team. # Edema R leg - No signs of fracture in X ray - Follow up with Orthopedic team. # Hypertension - Controlled blood pressure. - Patient counseled to keep a healthy lifestyle including regular exercise and low-sodium diet. - Recommended home blood pressure monitoring. - Goal of BP < 130/80mmHg. # Diabetes - Controlled by PCP. - Counseled on healthy diet and regular exercises. - Discussed need for weight loss and the benefits. - Keep current medications including Insulin, Empaglifozin. # Hyperlipidemia - Keep home medication with Ezetimibe. - Counseled on healthy diet and regular exercise. # Gout - Keep Allopurinol. Thank you for allowing me to participate in the care of this patient. Please reach me out if you have any questions or if you need any clarifications regarding the patient's care. Peripheral IV 03/04/25 20 G Right Antecubital (Active) Site Assessment Clean;Dry;Intact 03/04/252032 Dressing Status Clean;Dry;Occlusive 03/04/252032 Number of days: 0 Urethral Catheter Coude 16 Fr. (Active) Output (mL) 375 mL 03/04/252040 Number of days: 4 Code Status: Full Code Nima Fay MD Cardiology [1] Family History Problem Relation Name Age of Onset Heart attack Mother Cancer Mother Heart disease Father Heart attack Child Brain cancer Child Diabetes type II Other OTHER Breast cancer Other OTHER [2] Scheduled medications Medication Dose Route Frequency [START ON 03/05/2025] allopurinol 300 mg oral Daily [START ON 03/05/2025] aspirin 81 mg oral Daily [START ON 03/05/2025] bumetanide 0.5 mg oral Daily [START ON 03/05/2025] cetirizine 10 mg oral Daily [START ON 03/05/2025] ciprofloxacin 250 mg oral Daily clopidogrel 75 mg oral Daily [START ON 03/05/2025] empagliflozin 10 mg oral Daily [START ON 03/05/2025] ezetimibe 10 mg oral Daily [START ON 03/05/2025] finasteride 5 mg oral Daily gabapentin 300 mg oral BID heparin (porcine) 5,000 Units subcutaneous q8h [START ON 03/05/2025] insulin glargine 19 Units subcutaneous q AM [START ON 03/05/2025] insulin lispro 0-10 Units subcutaneous TID AC [START ON 03/05/2025] tamsulosin 0.4 mg oral Daily [3] PRN medications Medication acetaminophen dextrose dextrose glucagon glucagon HYDROcodone-acetaminophen magnesium hydroxide melatonin ondansetron [4] Continuous Medications Medication Dose Last Rate [facility] Work Phone: 03-04-2025 Consult note Associated Order (s): Inpatient consult to Cardiology Inpatient consult to Cardiology Consult performed by: Nima Fay MD Consult ordered by: Cheikh Horne MD Reason for consult: symptomatic bradycardia History Of Present Illness: Mr. Kitty Vergara is a 84 y.o. year old former smoker diabetic male patient being consulted by the Cardiology team for symptomatic bradycardia. Patient with prior medical history significant for moderate to severe aortic stenosis, CAD S/P PCI to LAD (01/19/2025), hypertension, diabetes, hyperlipidemia, GERD, neuropathy, Gout, CKD stage III, edema R leg, indwelling catheter. He presented to ED [facility] on 03/04/2025 complaining of dizziness, lightheadedness and fatigue for the past day. Notably, he has De Oliveiar catheter and had been treated with Cipro for the past 4 days prior to admission. He endorsed that he felt those symptoms while seating, but denied losing consciousness. He indeed had been feeling dizzy for the past 3 days. He is also on beta-jami. Notably, he had been previously brought to ED [facility] on 10/18/2024 after losing his consciouness. He denied chest pain, shortness of breath, palpitations, leg edema, fever, chills, bleeding, orthopnea, paroxysmal nocturnal dyspnea or syncope. EKG showing sinus bradycardia ~50bpm with non-specific ST-T changes. Crea 2.3, BUN 41, Hb 11.3, trop 11 - 13, BNP 321. Patient has been admitted for clinical compensation. Last Recorded Vitals: Vitals: 03/04/25 1644 03/04/25 1700 03/04/25 1722 03/04/25 2100 BP: 154/73 (!) 184/73 160/71 BP Location: Left arm Pulse: 51 52 60 Resp: 18 16 Temp: 36.5 C (97.7 F) 35.8 C (96.4 F) TempSrc: Temporal SpO2: 98% 99% 97% Weight: 104 kg (230 lb 6.1 oz) Height: 1.791 m (5' 10.5") Last Labs: CBC - 03/04/2025: 1:10 PM 9.8 11.3 175 35.1 CMP - 03/04/2025: 1:10 PM 9.0 7.1 18 --- 0.7 3.2 3.9 12 90 PTT - No results in last year. _ _ _ Troponin I, High Sensitivity Date/Time Value Ref Range Status 03/04/2025 02:12 PM 11 0 - 20 ng/L Final 03/04/2025 01:10 PM 13 0 - 20 ng/L Final 10/18/2024 03:57 PM 11 0 - 20 ng/L Final BNP Date/Time Value Ref Range Status 10/18/2024 03:57 PM 321 (H) 0 - 99 pg/mL Final Hemoglobin A1C Date/Time Value Ref Range Status 09/05/2024 07:38 AM 7.2 (H) See comment % Final 05/08/2024 07:33 AM 7.3 (H) see below % Final LDL Calculated Date/Time Value Ref Range Status 09/26/2024 07:54 AM 42 <=99 mg/dL Final Comment: Near Borderline AGE Desirable Optimal High High Very High 0-19 Y 0 - 109 --- 110-129 >/= 130 ---- 20-24 Y 0 - 119 --- 120-159 >/= 160 ---- >24 Y 0 - 99 100-129 130-159 160-189 >/=190 VLDL Date/Time Value Ref Range Status 09/26/2024 07:54 AM 60 (H) 0 - 40 mg/dL Final 03/29/2022 07:54 AM SEE COMMENT 0 - 40 mg/dL Final Comment: Unable to calculate VLDL. 03/29/2020 08:37 AM SEE COMMENT 0 - 40 mg/dL Final Comment: Unable to calculate VLDL. Last I/O: I/O last 3 completed shifts: In: - (0 mL/kg) Out: 220 (2.1 mL/kg) [Urine:220 (0.1 mL/kg/hr)] Weight: 104.5 kg Past Cardiology Tests (Last 3 Years): EKG: ECG 12 lead 03/04/2025 (Wet Read) ECG 12 lead 03/04/2025 (Wet Read) ECG 12 lead STAT 01/19/2025 Electrocardiogram 12 Lead 01/19/2025 ECG 12 lead (Clinic Performed) 12/08/2024 ECG 12 lead ECG 12 lead 05/29/2024 Echo: Transthoracic Echo (TTE) Complete 10/20/2024 Ejection Fractions: EF Date/Time Value Ref Range Status 10/20/2024 07:19 AM 67 % Cath: Cardiac Catheterization Procedure 01/19/2025 Stress Test: No results found for this or any previous visit from the past 1095 days. Cardiac Imaging: No results found for this or any previous visit from the past 1095 days. Past Medical History: He has a past medical history of BPH (benign prostatic hyperplasia), GERD (gastroesophageal reflux disease), Gout, Hyperlipidemia, Hypertension, Indwelling urinary catheter present, Neuropathy, peripheral, autonomic, idiopathic (02/21/2023), and Type 2 diabetes mellitus. Past Surgical History: He has a past surgical history that includes Other surgical history (09/26/2019); Other surgical history (09/26/2019); Other surgical history (09/26/2019); MR angio head wo IV contrast (03/28/2023); MR angio neck wo IV contrast (03/28/2023); and Cardiac catheterization (N/A, 01/19/2025). Social History: He reports that he quit smoking about 36 years ago. His smoking use included cigarettes. He has never been exposed to tobacco smoke. He has never used smokeless tobacco. He reports that he does not drink alcohol and does not use drugs. Family History: Family History[1] Allergies: Iodine, Pregabalin, and Fyxtugk-tsy-nam reductase inhibitors Inpatient Medications: Scheduled Medications[2] PRN Medications[3] Continuous Medications[4] Outpatient Medications: Current Outpatient Medications Medication Instructions allopurinol (ZYLOPRIM) 300 mg, oral, Daily aspirin 81 mg, oral, Daily blood sugar diagnostic (Advanced Gluc Meter Test Strip) strip 1 strip, miscellaneous, Daily bumetanide (BUMEX) 0.5 mg, oral, Daily carvedilol (COREG) 6.25 mg, oral, 2 times daily (morning and late afternoon) cholecalciferol (Vitamin D-3) 25 MCG (1000 UT) capsule 1 capsule, Daily ciprofloxacin (CIPRO) 500 mg, oral, 2 times daily clopidogrel (PLAVIX) 75 mg, oral, Daily empagliflozin (JARDIANCE) 10 mg, oral, Daily ezetimibe (ZETIA) 10 mg, oral, Daily finasteride (PROSCAR) 5 mg, oral, Daily, Do not crush, chew, or split. gabapentin (Neurontin) 300 mg capsule 1 capsule, 2 times daily glucosamine/chondr hogue A sod (OSTEO BI-FLEX ORAL) 1 capsule, Daily HYDROcodone-acetaminophen (Tensed) 5-325 mg tablet 1 tablet, oral, Every 6 hours PRN insulin glargine-lixisenatide (Soliqua 100/33) 100 unit-33 mcg/mL insulin pen 30 Units, subcutaneous, Daily lansoprazole (PREVACID ORAL) 1 capsule, Daily loratadine (CLARITIN) 10 mg, Daily pen needle, diabetic 31 gauge x 5/16" needle 1 each, miscellaneous, Daily phenazopyridine (PYRIDIUM) 200 mg, oral, 3 times daily PRN tamsulosin (FLOMAX) 0.4 mg, oral, Daily Physical Exam: General: alert, oriented and in no acute distress HEENT: NC/AT; EOMI; PERRLA, external ear is normal Neck: supple; trachea midline; no masses; no JVD Chest: clear breath sounds bilaterally; no wheezing Cardio: regular rhythm, S1S2 normal, no murmurs Abdomen: Soft, non-tender, non-distension, no organomegaly Extremities: Edema R leg; good healing access site; indwelling catheter. Neuro: Grossly intact Psychiatric: Normal mood and affect Assessment/Plan Mr. Kitty Vergara is a 84 y.o. year old former smoker diabetic male patient being consulted by the Cardiology team for symptomatic bradycardia. Patient with prior medical history significant for moderate to severe aortic stenosis, CAD S/P PCI to LAD (01/19/2025), hypertension, diabetes, hyperlipidemia, GERD, neuropathy, Gout, CKD stage III, edema R leg, indwelling catheter. He presented to ED [facility] on 03/04/2025 complaining of dizziness, lightheadedness and fatigue for the past day. Notably, he has De Oliveira catheter and had been treated with Cipro for the past 4 days prior to admission. He endorsed that he felt those symptoms while seating, but denied losing consciousness. He indeed had been feeling dizzy for the past 3 days. He is also on beta-jami. Notably, he had been previously brought to ED [facility] on 10/18/2024 after losing his consciouness. He denied chest pain, shortness of breath, palpitations, leg edema, fever, chills, bleeding, orthopnea, paroxysmal nocturnal dyspnea or syncope. EKG showing sinus bradycardia ~50bpm with non-specific ST-T changes. Crea 2.3, BUN 41, Hb 11.3, trop 11 - 13, BNP 321. Patient has been admitted for clinical compensation. Assessment # Symptomatic bradycardia in the setting of UTI and beta-jami - Trop 11 - 13. - BNP 321. - Patient complaining of dizziness, lightheadedness and fatigue for the past day. Notably, he has De Oliveira catheter and had been treated with Cipro for the past 4 days prior to admission. He endorsed that he felt those symptoms while seating, but denied losing consciousness. - EKG showing sinus bradycardia ~50bpm with non-specific ST-T changes. - Would suggest to hold beta-jami - Carvedilol 6.25mg BID at this point. - Would suggest 7-day holter monitor upon discharge. - Follow up in Cardiology clinic. We will discuss EP evaluation. # Moderate to severe aortic stenosis - Reports shortness of breath on exertion. - Echo (09/2024): 1. Poorly visualized anatomical structures due to suboptimal image quality. 2. Left ventricular ejection fraction is normal, calculated by Villalobos's biplane at 67%. 3. Spectral Doppler shows a Grade II (pseudonormal pattern) of left ventricular diastolic filling with an elevated left atrial pressure. 4. There is normal right ventricular global systolic function. 5. Moderate to severe aortic valve stenosis. 6. Compared to prior TTE dated 03/28/2023 - aortic stenosis has progressed and now appears to be moderate-severe. 7. The patient is in atrial fibrillation which may influence the estimate of left ventricular function and transvalvular flows. - New EKG showing sinus rhythm. - Right and Left Heart Catheterization (01/19/2025): Single vessel coronary artery disease Prox-mid LAD diffuse calcified 80% lesion Prox 1st OM 60% lesion RCA with irregularities Preserved LV systolic function Peak to peak gradient ~20mmHg, consistent with moderate aortic stenosis PWP 25, PA 46/23 (32), RV 51/12 (20), RA 17mmHg; LVeDP 19mmHg; CO 7.5, CI 3.4 S/P successful DFR to prox 1st OM resulting 0.98, deemed to be non-ischemic, therefore we have opted to defer the treatment for this lesion. S/P successful DFR to mid LAD resulting 0.86, deemed to be ischemic, therefore we have opted to proceed with the treatment for this lesion. S/P Successful PCI to prox-mid LAD using 2 WILLIE 3.0/38mm and 3.0/8mm (post-dil 3.5mm NC balloon) guided by IVUS - Keep ASA 81mg daily, Clopidogrel, beta-jami. - Patient intolerant to statins. - Cardiac rehab. - Bumex 0.5mg daily for R leg swelling. 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 - Crea 2.3. - BUN 41. - Indwelling catheter. May need Urological procedure. - Would suggest follow up with Nephrology / Urology team. # Edema R leg - No signs of fracture in X ray - Follow up with Orthopedic team. # Hypertension - Controlled blood pressure. - Patient counseled to keep a healthy lifestyle including regular exercise and low-sodium diet. - Recommended home blood pressure monitoring. - Goal of BP < 130/80mmHg. # Diabetes - Controlled by PCP. - Counseled on healthy diet and regular exercises. - Discussed need for weight loss and the benefits. - Keep current medications including Insulin, Empaglifozin. # Hyperlipidemia - Keep home medication with Ezetimibe. - Counseled on healthy diet and regular exercise. # Gout - Keep Allopurinol. Thank you for allowing me to participate in the care of this patient. Please reach me out if you have any questions or if you need any clarifications regarding the patient's care. Peripheral IV 03/04/25 20 G Right Antecubital (Active) Site Assessment Clean;Dry;Intact 03/04/252032 Dressing Status Clean;Dry;Occlusive 03/04/252032 Number of days: 0 Urethral Catheter Coude 16 Fr. (Active) Output (mL) 375 mL 03/04/252040 Number of days: 4 Code Status: Full Code Nima Fay MD Cardiology [1] Family History Problem Relation Name Age of Onset Heart attack Mother Cancer Mother Heart disease Father Heart attack Child Brain cancer Child Diabetes type II Other OTHER Breast cancer Other OTHER [2] Scheduled medications Medication Dose Route Frequency [START ON 03/05/2025] allopurinol 300 mg oral Daily [START ON 03/05/2025] aspirin 81 mg oral Daily [START ON 03/05/2025] bumetanide 0.5 mg oral Daily [START ON 03/05/2025] cetirizine 10 mg oral Daily [START ON 03/05/2025] ciprofloxacin 250 mg oral Daily clopidogrel 75 mg oral Daily [START ON 03/05/2025] empagliflozin 10 mg oral Daily [START ON 03/05/2025] ezetimibe 10 mg oral Daily [START ON 03/05/2025] finasteride 5 mg oral Daily gabapentin 300 mg oral BID heparin (porcine) 5,000 Units subcutaneous q8h [START ON 03/05/2025] insulin glargine 19 Units subcutaneous q AM [START ON 03/05/2025] insulin lispro 0-10 Units subcutaneous TID AC [START ON 03/05/2025] tamsulosin 0.4 mg oral Daily [3] PRN medications Medication acetaminophen dextrose dextrose glucagon glucagon HYDROcodone-acetaminophen magnesium hydroxide melatonin ondansetron [4] Continuous Medications Medication Dose Last Rate documented in this encounter [facility] Work Phone: 03-04-2025 Plan of care note The patient's goals for the shift include Problem: Pain - Adult Goal: Verbalizes/displays adequate comfort level or baseline comfort level 03/04/2025 185 by Ahsley Solano RN Outcome: Progressing 03/04/2025 185 by Ashley Solano RN Outcome: Progressing Problem: Safety - Adult Goal: Free from fall injury 03/04/2025 185 by Ashley Solano RN Outcome: Progressing 03/04/[id number] by Ashley Solano RN Outcome: Progressing Problem: Discharge Planning Goal: Discharge to home or other facility with appropriate resources 03/04/[id number] by Ashley Solano RN Outcome: Progressing 03/04/[id number] by Ashley Solano RN Outcome: Progressing Problem: Chronic Conditions and Co-morbidities Goal: Patient's chronic conditions and co-morbidity symptoms are monitored and maintained or improved 03/04/20251853 by Ashley Solano RN Outcome: Progressing 03/04/20251853 by Ashley Solano RN Outcome: Progressing Problem: Nutrition Goal: Nutrient intake appropriate for maintaining nutritional needs 03/04/20251853 by Ashley Solano RN Outcome: Progressing 03/04/20251853 by Ashley Solano RN Outcome: Progressing Problem: Arrythmia/Dysrhythmia Goal: Lab values return to normal range 03/04/20251853 by Ashley Solano RN Outcome: Progressing 03/04/2025 185 by Ashley Solano RN Outcome: Progressing Goal: No evidence of post procedure complications 03/04/2025 185 by Ashley Solano RN Outcome: Progressing 03/04/20251853 by Ashley Solano RN Outcome: Progressing Goal: Promote self management 03/04/20251853 by Ashley Solano RN Outcome: Progressing 03/04/20251853 by Ashley Solano RN Outcome: Progressing Goal: Serial ECG will return to baseline 03/04/2025 185 by Ashley Solano RN Outcome: Progressing 03/04/20251853 by Ashley Solano RN Outcome: Progressing Goal: Verbalize understanding of procedures/devices 03/04/20251853 by Ashley Solano RN Outcome: Progressing 03/04/20251853 by Ashley Solano RN Outcome: Progressing Goal: Vital signs return to baseline 03/04/20251853 by Ashley Solano RN Outcome: Progressing 03/04/20251853 by Ashley Solano RN Outcome: Progressing Goal: Care and maintenance of device (specify) 03/04/20251853 by Ashley Solano RN Outcome: Progressing 03/04/20251853 by Ashley Solano RN Outcome: Progressing The clinical goals for the shift include Pt will have no falls by the end of this shift. Pt admitted [facility] unit for symptomatic bradycardia. [facility] Work Phone: 03-04-2025 History and physical note HISTORY AND PHYSICAL EXAMINATION Name of the patient: Kitty Vergara Date of : 1940 Age: 84 y.o. Date of service: 03/04/25 Time: 3:56 PM CHIEF COMPLAINT: Lightheadedness, weakness. HISTORY OF PRESENT ILLNESS: This is an 84 years old male patient with past medical history as mentioned below presented to the emergency room because of weakness, lightheadedness and dizziness. Patient mentioned that he was sitting on the chair in his garage this morning and all of a sudden, he felt weak, fatigued and lightheaded. He mentioned that he felt that there was a band around his head. He denied syncope or presyncope. He mentioned over the last several days, he has been feeling dizzy and lightheaded upon standing and walking. He denied chest pain, shortness of breath, palpitation, syncope or presyncope. He stated that he had De Oliveira catheter placed 5 months ago for urinary retention and around 4 days ago, he was diagnosed with UTI and started on ciprofloxacin. He has chronic indwelling De Oliveira catheter which has been there for 5 months. He supposed to go for laser ablation surgery for prostate enlargement. In the emergency department, he was afebrile, heart rate was in the 50s, goes down to 30s. His blood pressure was slightly elevated. He was on room air, no oxygen requirement. His routine blood work was remarkable for BUN of 41, creatinine is 2.31, hemoglobin is 11.3 g/dL. LFT was unremarkable. Troponin was negative x 2. Serum magnesium was normal. Chest x-ray showed no acute findings. First EKG revealed sinus bradycardia, heart rate of 50 bpm. Repeat EKG revealed heart rate of 42 but there was no clear P waves, there was a concern of A-fib. He is being admitted for symptomatic bradycardia for evaluation and treatment. Medical History[1] Surgical History[2] Family History[3] Social History Socioeconomic History Marital status: Spouse name: Adriel Number of children: Not on file Years of education: Not on file Highest education level: Not on file Occupational History Not on file Tobacco Use Smoking status: Former Current packs/day: 0.00 Types: Cigarettes Quit date: 1988 Years since quittin.4 Passive exposure: Never Smokeless tobacco: Never Vaping Use Vaping status: Never Used Substance and Sexual Activity Alcohol use: Never Drug use: Never Sexual activity: Defer Other Topics Concern Not on file Social History Narrative Not on file Social Drivers of Health Financial Resource Strain: Low Risk (10/20/2024) Overall Financial Resource Strain (CARDIA) Difficulty of Paying Living Expenses: Not hard at all Food Insecurity: No Food Insecurity (10/19/2024) Hunger Vital Sign Worried About Running Out of Food in the Last Year: Never true Ran Out of Food in the Last Year: Never true Transportation Needs: No Transportation Needs (01/25/2025) OASIS A1250: Transportation Lack of Transportation (Medical): No Lack of Transportation (Non-Medical): No Patient Unable or Declines to Respond: No Physical Activity: Not on file Stress: Not on file Social Connections: Feeling Socially Integrated (01/25/2025) OASIS D0700: Social Isolation Frequency of experiencing loneliness or isolation: Rarely Intimate Partner Violence: Not At Risk (10/19/2024) Humiliation, Afraid, Rape, and Kick questionnaire Fear of Current or Ex-Partner: No Emotionally Abused: No Physically Abused: No Sexually Abused: No Housing Stability: Low Risk (10/20/2024) Housing Stability Vital Sign Unable to Pay for Housing in the Last Year: No Number of Times Moved in the Last Year: 0 Homeless in the Last Year: No Current Home medications: Medications Ordered Prior to Encounter[4] Review of systems: Constitutional: Reported fatigue and weakness, negative for chills, diaphoresis and fever. HENT: Negative for congestion, ear discharge, ear pain, hearing loss, rhinorrhea and sneezing. Eyes: Negative for pain, discharge and itching. Respiratory: Negative for cough, chest tightness, shortness of breath. Negative for apnea, choking, wheezing and stridor. Cardiovascular: Reported chronic leg swelling, negative for chest pain, palpitations. Gastrointestinal: Negative for abdominal distention, abdominal pain, blood in stool, constipation, diarrhea and nausea. Endocrine: Negative for cold intolerance, heat intolerance and polydipsia. Genitourinary: Negative for difficulty urinating, dysuria, flank pain, frequency and hematuria. Musculoskeletal: Negative for arthralgias, back pain and gait problem. Neurological: Reported dizziness, lightheadedness, negative for seizures, syncope, facial asymmetry, speech difficulty and headaches. Psychiatric/Behavioral: Negative for behavioral problems, confusion and hallucinations. Vital signs: Visit Vitals BP 111/65 Pulse 56 Temp 36.8 C (98.2 F) (Temporal) Resp 16 Physical examination: General: Awake, alert, oriented x3, no significant distress, cooperative. HEENT: EOM intact, PERRLA. Neck: Supple, no JVD, no masses, no lymphadenopathy. Chest: Diminished breath sounds bilateral, otherwise clear, no wheezes, no crackles, no rhonchi. Heart: Regular rate and rhythm, S1-S2 normal, no murmur, no gallops, bradycardia, systolic murmur. Abdomen: Soft, nontender, no organomegaly, no ascites, no guarding or rigidity. Neurological: Alert and oriented x3, cranial nerves are intact, normal power and tone of 4 limbs. Skin: No lesions, no skin rash. Warm and dry. Musculoskeletal: Normal, atraumatic, no obvious deformities. Legs: + leg edema, no clubbing or cyanosis. Psych: Appropriate mood and behavior. LABS: Lab Results Component Value Date WBC 9.8 03/04/2025 HGB 11.3 (L) 03/04/2025 HCT 35.1 (L) 03/04/2025 MCV 92 03/04/2025 PLT 175 03/04/2025 Lab Results Component Value Date GLUCOSE 139 (H) 03/04/2025 CALCIUM 9.0 03/04/2025 NA 137 03/04/2025 K 4.5 03/04/2025 CO2 25 03/04/2025 CL 106 03/04/2025 BUN 41 (H) 03/04/2025 CREATININE 2.31 (H) 03/04/2025 Lab Results Component Value Date ALT 12 03/04/2025 AST 18 03/04/2025 ALKPHOS 90 03/04/2025 BILITOT 0.7 03/04/2025 Imaging: Procedure Component Value Units Date/Time XR chest 1 view [[id number]] Collected: 03/04/251324 Order Status: Completed Updated: 03/04/251324 Narrative: Interpreted By: Joan Fish, STUDY: XR CHEST 1 VIEW; 03/04/2025 1:08 pm INDICATION: Signs/Symptoms:Chest Pain. COMPARISON: 10/18/2024 ACCESSION NUMBER(S): [id number] ORDERING CLINICIAN: SANYA SHIN FINDINGS: AP radiograph of the chest was provided. CARDIOMEDIASTINAL SILHOUETTE: Persistently enlarged cardiomediastinal silhouette. LUNGS: Persistent mild bibasilar atelectasis. Mild diffuse coarse interstitial lung markings, likely chronic interstitial lung disease. No new airspace consolidation, pulmonary edema, pleural effusion, or pneumothorax. ABDOMEN: No remarkable upper abdominal findings. BONES: No acute osseous changes. Impression: No significant interval change from prior radiograph from September 2024, with no evidence of acute cardiopulmonary process. Signed by: Joan Fish 03/04/2025 1:23 PM Assessment/Plan Assessment & Plan Bradycardia #1 symptomatic bradycardia: Cannot exclude other cardiac arrhythmias. EKG reviewed. Troponins negative. Currently blood pressure stable. Plan: Admit to telemetry floor, complete bedrest, cardiac monitoring, hold Coreg, check TSH, consult cardiology, repeat CBC and BMP tomorrow morning, PT OT evaluation and treatment. #2 recent history of acute cystitis/UTI: In the setting of chronic indwelling De Oliveira catheter. Patient has been on ciprofloxacin for 4 days. He has chronic indwelling De Oliveira catheter since September 2024. Plan to continue ciprofloxacin, will do complete urinalysis. #3 CAD status post stents: Patient had 2 stents placed around 1 month ago. Troponin is negative. Denies chest pain. Continue aspirin, Plavix, consult cardiology as above. #4 type 2 diabetes mellitus: ADA diet, Accu-Cheks, continue glargine insulin 90 units in the morning, sliding scale, continue Jardiance. #5 stage IV chronic kidney disease: Baseline creatinine has been around 1.8 to 3 mg/dL. Admission creatinine is 2.31, stable at baseline. #6 hypertension: Blood pressure stable on admission, hold Coreg, continue Bumex for diuresis. #7 benign prostatic hypertrophy: Continue Proscar and Flomax. Keep De Oliveira catheter in place, patient will need follow-up with urology as outpatient. #8 gout: Stable, continue allopurinol. #9 hyperlipidemia: Continue Zetia. #10 DVT prophylaxis: Subcu heparin. #11 CODE STATUS: full code for now, verified with the patient. Cheikh Horne MD 03/04/25 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; Service: Cardiovascular; Laterality: N/A; Stage 4 kidney MR HEAD ANGIO WO IV CONTRAST 03/28/2023 MR HEAD ANGIO WO IV CONTRAST 03/28/2023 [facility] MRI MR NECK ANGIO WO IV CONTRAST 03/28/2023 MR NECK ANGIO WO IV CONTRAST 03/28/2023 [facility] MRI OTHER SURGICAL HISTORY 09/26/2019 Appendectomy OTHER SURGICAL HISTORY 09/26/2019 Colonoscopy OTHER SURGICAL HISTORY 09/26/2019 Cataract surgery [3] Family History Problem Relation Name Age of Onset Heart attack Mother Cancer Mother Heart disease Father Heart attack Child Brain cancer Child Diabetes type II Other OTHER Breast cancer Other OTHER [4] No current facility-administered medications on file prior to encounter. Current Outpatient Medications on File Prior to Encounter Medication Sig Dispense Refill allopurinol (Zyloprim) 300 mg tablet Take 1 tablet (300 mg) by mouth once daily. 90 tablet 3 aspirin 81 mg chewable tablet Chew 1 tablet (81 mg) once daily. 30 tablet 11 blood sugar diagnostic (Advanced Gluc Meter Test Strip) strip 1 strip once daily. 100 strip 3 bumetanide (Bumex) 0.5 mg tablet Take 1 tablet (0.5 mg) by mouth once daily. 30 tablet 11 carvedilol (Coreg) 6.25 mg tablet Take 1 tablet (6.25 mg) by mouth 2 times daily (morning and late afternoon). 60 tablet 11 cholecalciferol (Vitamin D-3) 25 MCG (1000 UT) capsule Take 1 capsule (25 mcg) by mouth once daily. ciprofloxacin (Cipro) 500 mg tablet Take 1 tablet (500 mg) by mouth 2 times a day for 7 days. 14 tablet 0 empagliflozin (Jardiance) 10 mg Take 1 tablet (10 mg) by mouth once daily. 30 tablet 5 ezetimibe (Zetia) 10 mg tablet Take 1 tablet (10 mg) by mouth once daily. 30 tablet 11 finasteride (Proscar) 5 mg tablet Take 1 tablet (5 mg) by mouth once daily. Do not crush, chew, or split. 30 tablet 11 gabapentin (Neurontin) 300 mg capsule Take 1 capsule (300 mg) by mouth 2 times a day. glucosamine/chondr hogue A sod (OSTEO BI-FLEX ORAL) Take 1 capsule by mouth once daily. insulin glargine-lixisenatide (Soliqua 100/33) 100 unit-33 mcg/mL insulin pen Inject 30 Units under the skin once daily. (Patient taking differently: Inject 19 Units under the skin once daily.) 15 mL 11 lansoprazole (PREVACID ORAL) Take 1 capsule by mouth once daily. loratadine (Claritin) 10 mg tablet Take 1 tablet (10 mg) by mouth once daily. pen needle, diabetic 31 gauge x 5/16" needle 1 each once daily. 100 each 3 tamsulosin (Flomax) 0.4 mg 24 hr capsule Take 1 capsule (0.4 mg) by mouth once daily. 90 capsule 3 clopidogrel (Plavix) 75 mg tablet Take 1 tablet (75 mg) by mouth once daily. Do not fill before January 26, 2025. 90 tablet 3 HYDROcodone-acetaminophen (Tensed) 5-325 mg tablet Take 1 tablet by mouth every 6 hours if needed for severe pain (7 - 10). 20 tablet 0 phenazopyridine (Pyridium) 200 mg tablet Take 1 tablet (200 mg) by mouth 3 times a day as needed for bladder spasms. (Patient not taking: Reported on 03/04/2025) 30 tablet 0 [facility] Work Phone: 03-04-2025 History and physical note HISTORY AND PHYSICAL EXAMINATION Name of the patient: Kitty Vergara Date of : 1940 Age: 84 y.o. Date of service: 03/04/25 Time: 3:56 PM CHIEF COMPLAINT: Lightheadedness, weakness. HISTORY OF PRESENT ILLNESS: This is an 84 years old male patient with past medical history as mentioned below presented to the emergency room because of weakness, lightheadedness and dizziness. Patient mentioned that he was sitting on the chair in his garage this morning and all of a sudden, he felt weak, fatigued and lightheaded. He mentioned that he felt that there was a band around his head. He denied syncope or presyncope. He mentioned over the last several days, he has been feeling dizzy and lightheaded upon standing and walking. He denied chest pain, shortness of breath, palpitation, syncope or presyncope. He stated that he had De Oliveira catheter placed 5 months ago for urinary retention and around 4 days ago, he was diagnosed with UTI and started on ciprofloxacin. He has chronic indwelling De Oliveira catheter which has been there for 5 months. He supposed to go for laser ablation surgery for prostate enlargement. In the emergency department, he was afebrile, heart rate was in the 50s, goes down to 30s. His blood pressure was slightly elevated. He was on room air, no oxygen requirement. His routine blood work was remarkable for BUN of 41, creatinine is 2.31, hemoglobin is 11.3 g/dL. LFT was unremarkable. Troponin was negative x 2. Serum magnesium was normal. Chest x-ray showed no acute findings. First EKG revealed sinus bradycardia, heart rate of 50 bpm. Repeat EKG revealed heart rate of 42 but there was no clear P waves, there was a concern of A-fib. He is being admitted for symptomatic bradycardia for evaluation and treatment. Medical History[1] Surgical History[2] Family History[3] Social History Socioeconomic History Marital status: Spouse name: Adriel Number of children: Not on file Years of education: Not on file Highest education level: Not on file Occupational History Not on file Tobacco Use Smoking status: Former Current packs/day: 0.00 Types: Cigarettes Quit date: 1988 Years since quittin.4 Passive exposure: Never Smokeless tobacco: Never Vaping Use Vaping status: Never Used Substance and Sexual Activity Alcohol use: Never Drug use: Never Sexual activity: Defer Other Topics Concern Not on file Social History Narrative Not on file Social Drivers of Health Financial Resource Strain: Low Risk (10/20/2024) Overall Financial Resource Strain (CARDIA) Difficulty of Paying Living Expenses: Not hard at all Food Insecurity: No Food Insecurity (10/19/2024) Hunger Vital Sign Worried About Running Out of Food in the Last Year: Never true Ran Out of Food in the Last Year: Never true Transportation Needs: No Transportation Needs (01/25/2025) OASIS A1250: Transportation Lack of Transportation (Medical): No Lack of Transportation (Non-Medical): No Patient Unable or Declines to Respond: No Physical Activity: Not on file Stress: Not on file Social Connections: Feeling Socially Integrated (01/25/2025) OASIS D0700: Social Isolation Frequency of experiencing loneliness or isolation: Rarely Intimate Partner Violence: Not At Risk (10/19/2024) Humiliation, Afraid, Rape, and Kick questionnaire Fear of Current or Ex-Partner: No Emotionally Abused: No Physically Abused: No Sexually Abused: No Housing Stability: Low Risk (10/20/2024) Housing Stability Vital Sign Unable to Pay for Housing in the Last Year: No Number of Times Moved in the Last Year: 0 Homeless in the Last Year: No Current Home medications: Medications Ordered Prior to Encounter[4] Review of systems: Constitutional: Reported fatigue and weakness, negative for chills, diaphoresis and fever. HENT: Negative for congestion, ear discharge, ear pain, hearing loss, rhinorrhea and sneezing. Eyes: Negative for pain, discharge and itching. Respiratory: Negative for cough, chest tightness, shortness of breath. Negative for apnea, choking, wheezing and stridor. Cardiovascular: Reported chronic leg swelling, negative for chest pain, palpitations. Gastrointestinal: Negative for abdominal distention, abdominal pain, blood in stool, constipation, diarrhea and nausea. Endocrine: Negative for cold intolerance, heat intolerance and polydipsia. Genitourinary: Negative for difficulty urinating, dysuria, flank pain, frequency and hematuria. Musculoskeletal: Negative for arthralgias, back pain and gait problem. Neurological: Reported dizziness, lightheadedness, negative for seizures, syncope, facial asymmetry, speech difficulty and headaches. Psychiatric/Behavioral: Negative for behavioral problems, confusion and hallucinations. Vital signs: Visit Vitals BP 111/65 Pulse 56 Temp 36.8 C (98.2 F) (Temporal) Resp 16 Physical examination: General: Awake, alert, oriented x3, no significant distress, cooperative. HEENT: EOM intact, PERRLA. Neck: Supple, no JVD, no masses, no lymphadenopathy. Chest: Diminished breath sounds bilateral, otherwise clear, no wheezes, no crackles, no rhonchi. Heart: Regular rate and rhythm, S1-S2 normal, no murmur, no gallops, bradycardia, systolic murmur. Abdomen: Soft, nontender, no organomegaly, no ascites, no guarding or rigidity. Neurological: Alert and oriented x3, cranial nerves are intact, normal power and tone of 4 limbs. Skin: No lesions, no skin rash. Warm and dry. Musculoskeletal: Normal, atraumatic, no obvious deformities. Legs: + leg edema, no clubbing or cyanosis. Psych: Appropriate mood and behavior. LABS: Lab Results Component Value Date WBC 9.8 03/04/2025 HGB 11.3 (L) 03/04/2025 HCT 35.1 (L) 03/04/2025 MCV 92 03/04/2025 PLT 175 03/04/2025 Lab Results Component Value Date GLUCOSE 139 (H) 03/04/2025 CALCIUM 9.0 03/04/2025 NA 137 03/04/2025 K 4.5 03/04/2025 CO2 25 03/04/2025 CL 106 03/04/2025 BUN 41 (H) 03/04/2025 CREATININE 2.31 (H) 03/04/2025 Lab Results Component Value Date ALT 12 03/04/2025 AST 18 03/04/2025 ALKPHOS 90 03/04/2025 BILITOT 0.7 03/04/2025 Imaging: Procedure Component Value Units Date/Time XR chest 1 view [[id number]] Collected: 03/04/251324 Order Status: Completed Updated: 03/04/251324 Narrative: Interpreted By: Joan Fish, STUDY: XR CHEST 1 VIEW; 03/04/2025 1:08 pm INDICATION: Signs/Symptoms:Chest Pain. COMPARISON: 10/18/2024 ACCESSION NUMBER(S): [id number] ORDERING CLINICIAN: SANYA SHIN FINDINGS: AP radiograph of the chest was provided. CARDIOMEDIASTINAL SILHOUETTE: Persistently enlarged cardiomediastinal silhouette. LUNGS: Persistent mild bibasilar atelectasis. Mild diffuse coarse interstitial lung markings, likely chronic interstitial lung disease. No new airspace consolidation, pulmonary edema, pleural effusion, or pneumothorax. ABDOMEN: No remarkable upper abdominal findings. BONES: No acute osseous changes. Impression: No significant interval change from prior radiograph from September 2024, with no evidence of acute cardiopulmonary process. Signed by: Joan Fish 03/04/2025 1:23 PM Assessment/Plan Assessment & Plan Bradycardia #1 symptomatic bradycardia: Cannot exclude other cardiac arrhythmias. EKG reviewed. Troponins negative. Currently blood pressure stable. Plan: Admit to telemetry floor, complete bedrest, cardiac monitoring, hold Coreg, check TSH, consult cardiology, repeat CBC and BMP tomorrow morning, PT OT evaluation and treatment. #2 recent history of acute cystitis/UTI: In the setting of chronic indwelling De Oliveira catheter. Patient has been on ciprofloxacin for 4 days. He has chronic indwelling De Oliveira catheter since September 2024. Plan to continue ciprofloxacin, will do complete urinalysis. #3 CAD status post stents: Patient had 2 stents placed around 1 month ago. Troponin is negative. Denies chest pain. Continue aspirin, Plavix, consult cardiology as above. #4 type 2 diabetes mellitus: ADA diet, Accu-Cheks, continue glargine insulin 90 units in the morning, sliding scale, continue Jardiance. #5 stage IV chronic kidney disease: Baseline creatinine has been around 1.8 to 3 mg/dL. Admission creatinine is 2.31, stable at baseline. #6 hypertension: Blood pressure stable on admission, hold Coreg, continue Bumex for diuresis. #7 benign prostatic hypertrophy: Continue Proscar and Flomax. Keep De Oliveira catheter in place, patient will need follow-up with urology as outpatient. #8 gout: Stable, continue allopurinol. #9 hyperlipidemia: Continue Zetia. #10 DVT prophylaxis: Subcu heparin. #11 CODE STATUS: full code for now, verified with the patient. Cheikh Horne MD 03/04/25 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; Service: Cardiovascular; Laterality: N/A; Stage 4 kidney MR HEAD ANGIO WO IV CONTRAST 03/28/2023 MR HEAD ANGIO WO IV CONTRAST 03/28/2023 [facility] MRI MR NECK ANGIO WO IV CONTRAST 03/28/2023 MR NECK ANGIO WO IV CONTRAST 03/28/2023 [facility] MRI OTHER SURGICAL HISTORY 09/26/2019 Appendectomy OTHER SURGICAL HISTORY 09/26/2019 Colonoscopy OTHER SURGICAL HISTORY 09/26/2019 Cataract surgery [3] Family History Problem Relation Name Age of Onset Heart attack Mother Cancer Mother Heart disease Father Heart attack Child Brain cancer Child Diabetes type II Other OTHER Breast cancer Other OTHER [4] No current facility-administered medications on file prior to encounter. Current Outpatient Medications on File Prior to Encounter Medication Sig Dispense Refill allopurinol (Zyloprim) 300 mg tablet Take 1 tablet (300 mg) by mouth once daily. 90 tablet 3 aspirin 81 mg chewable tablet Chew 1 tablet (81 mg) once daily. 30 tablet 11 blood sugar diagnostic (Advanced Gluc Meter Test Strip) strip 1 strip once daily. 100 strip 3 bumetanide (Bumex) 0.5 mg tablet Take 1 tablet (0.5 mg) by mouth once daily. 30 tablet 11 carvedilol (Coreg) 6.25 mg tablet Take 1 tablet (6.25 mg) by mouth 2 times daily (morning and late afternoon). 60 tablet 11 cholecalciferol (Vitamin D-3) 25 MCG (1000 UT) capsule Take 1 capsule (25 mcg) by mouth once daily. ciprofloxacin (Cipro) 500 mg tablet Take 1 tablet (500 mg) by mouth 2 times a day for 7 days. 14 tablet 0 empagliflozin (Jardiance) 10 mg Take 1 tablet (10 mg) by mouth once daily. 30 tablet 5 ezetimibe (Zetia) 10 mg tablet Take 1 tablet (10 mg) by mouth once daily. 30 tablet 11 finasteride (Proscar) 5 mg tablet Take 1 tablet (5 mg) by mouth once daily. Do not crush, chew, or split. 30 tablet 11 gabapentin (Neurontin) 300 mg capsule Take 1 capsule (300 mg) by mouth 2 times a day. glucosamine/chondr hogue A sod (OSTEO BI-FLEX ORAL) Take 1 capsule by mouth once daily. insulin glargine-lixisenatide (Soliqua 100/33) 100 unit-33 mcg/mL insulin pen Inject 30 Units under the skin once daily. (Patient taking differently: Inject 19 Units under the skin once daily.) 15 mL 11 lansoprazole (PREVACID ORAL) Take 1 capsule by mouth once daily. loratadine (Claritin) 10 mg tablet Take 1 tablet (10 mg) by mouth once daily. pen needle, diabetic 31 gauge x 5/16" needle 1 each once daily. 100 each 3 tamsulosin (Flomax) 0.4 mg 24 hr capsule Take 1 capsule (0.4 mg) by mouth once daily. 90 capsule 3 clopidogrel (Plavix) 75 mg tablet Take 1 tablet (75 mg) by mouth once daily. Do not fill before January 26, 2025. 90 tablet 3 HYDROcodone-acetaminophen (Tensed) 5-325 mg tablet Take 1 tablet by mouth every 6 hours if needed for severe pain (7 - 10). 20 tablet 0 phenazopyridine (Pyridium) 200 mg tablet Take 1 tablet (200 mg) by mouth 3 times a day as needed for bladder spasms. (Patient not taking: Reported on 03/04/2025) 30 tablet 0 documented in this encounter [facility] Work Phone: 03-04-2025 Physician Emergency department Note Associated Order(s): ECG 12 lead; ECG 12 lead HPI Chief Complaint Patient presents with Dizziness Patient reports 2 week history of intermittant dizziness and feeling lightheaded. Patient also c/o headache. Denies N/v/D/fever/cough. Patient was seen here Sunday and treated for UTI. Patient feels his dizziness is getting worse. Limitations to History: None HPI: 84-year-old male presents with concern for lightheadedness. Present for the past 2 weeks. Patient was seen here 4 days ago and diagnosed with UTI. Is currently on antibiotic therapy. Chronic indwelling De Oliveira catheter. Patient states that he feels very fatigued and like he can go to sleep. Denies any fever, chills, nausea, vomiting, abdominal pain, urinary symptoms. Additional History Obtained from: at the bedside. ------ Physical Exam: VS: As documented in the triage note and EMR flowsheet from this visit were reviewed. Appearance: Alert. cooperative, in no acute distress. Skin: Intact, dry skin, no lesions, rash, petechiae or purpura. Eyes: PERRLA, EOMs intact, Conjunctiva pink with no redness or exudates. HENT: Normocephalic, atraumatic. Nares patent. No intraoral lesions. Neck: Supple, without meningismus. Trachea at midline. No lymphadenopathy. Pulmonary: Clear bilaterally with good chest wall excursion. No rales, rhonchi or wheezing. No accessory muscle use or stridor. Cardiac: Bradycardic and regular rhythm, no rubs, murmurs, or gallops. Abdomen: Abdomen is soft, nontender, and nondistended. No palpable organomegaly. No rebound or guarding. No CVA tenderness. Nonsurgical abdomen. Genitourinary: Exam deferred. Musculoskeletal: Full range of motion. Pulses full and equal. No cyanosis, clubbing, or edema. Neurological: Cranial nerves are grossly intact, grossly normal sensation, no weakness, no focal findings identified. NIH of 0. Psychiatric: Appropriate mood and affect. Patient History Medical History[1] Surgical History[2] Family History[3] Social History[4] Physical Exam ED Triage Vitals [03/04/25 1259] Temperature Heart Rate Respirations BP 36.8 C (98.2 F) 56 16 111/65 Pulse Ox Temp Source Heart Rate Source Patient Position 97 % Temporal -- -- BP Location FiO2 (%) -- -- Physical Exam ED Course & MDM Diagnoses as of 03/04/25 1610 Symptomatic bradycardia Bradycardia No data recorded [place] Coma Scale Score: 15 (03/04/25 1304 : Ericka Luis RN) Medical Decision Making Labs Reviewed CBC WITH AUTO DIFFERENTIAL - Abnormal WBC 9.8 nRBC 0.0 RBC 3.80 (*) Hemoglobin 11.3 (*) Hematocrit 35.1 (*) MCV 92 MCH 29.7 MCHC 32.2 RDW 15.8 (*) Platelets 175 Neutrophils % 59.0 Immature Granulocytes %, Automated 0.4 Lymphocytes % 24.3 Monocytes % 7.2 Eosinophils % 8.4 Basophils % 0.7 Neutrophils Absolute 5.76 (*) Immature Granulocytes Absolute, Au* 0.04 Lymphocytes Absolute 2.37 Monocytes Absolute 0.70 Eosinophils Absolute 0.82 (*) Basophils Absolute 0.07 COMPREHENSIVE METABOLIC PANEL - Abnormal Glucose 139 (*) Sodium 137 Potassium 4.5 Chloride 106 Bicarbonate 25 Anion Gap 11 Urea Nitrogen 41 (*) Creatinine 2.31 (*) eGFR 27 (*) Calcium 9.0 Albumin 3.9 Alkaline Phosphatase 90 Total Protein 7.1 AST 18 Bilirubin, Total 0.7 ALT 12 MAGNESIUM - Normal Magnesium 2.00 SERIAL TROPONIN-INITIAL - Normal Troponin I, High Sensitivity 13 Narrative: Less than 99th percentile of normal range cutoff- Female and children under 18 years old <14 ng/L; Male <21 ng/L: Negative Repeat testing should be performed if clinically indicated. Female and children under 18 years old 14-50 ng/L; Male 21-50 ng/L: Consistent with possible cardiac damage and possible increased clinical risk. Serial measurements may help to assess extent of myocardial damage. >50 ng/L: Consistent with cardiac damage, increased clinical risk and myocardial infarction. Serial measurements may help assess extent of myocardial damage. NOTE: Children less than 1 year old may have higher baseline troponin levels and results should be interpreted in conjunction with the overall clinical context. NOTE: Troponin I testing is performed using a different testing methodology at [facility] than at other [facility]. Direct result comparisons should only be made within the same method. SERIAL TROPONIN, 1 HOUR - Normal Troponin I, High Sensitivity 11 Narrative: Less than 99th percentile of normal range cutoff- Female and children under 18 years old <14 ng/L; Male <21 ng/L: Negative Repeat testing should be performed if clinically indicated. Female and children under 18 years old 14-50 ng/L; Male 21-50 ng/L: Consistent with possible cardiac damage and possible increased clinical risk. Serial measurements may help to assess extent of myocardial damage. >50 ng/L: Consistent with cardiac damage, increased clinical risk and myocardial infarction. Serial measurements may help assess extent of myocardial damage. NOTE: Children less than 1 year old may have higher baseline troponin levels and results should be interpreted in conjunction with the overall clinical context. NOTE: Troponin I testing is performed using a different testing methodology at [facility] than at other [facility]. Direct result comparisons should only be made within the same method. TROPONIN SERIES- (INITIAL, 1 HR) XR chest 1 view Final Result No significant interval change from prior radiograph from September 2024, with no evidence of acute cardiopulmonary process. Signed by: Joan Fish 03/04/2025 1:23 PM Dictation workstation: [id number] Medical Decision Making: Patient appears well nontoxic. During triage patient's heart rate decreased to the upper 20s. Repeat EKG performed and heart rate in the 40s which may show atrial fibrillation with a slow ventricular rate. Patient had another episode of bradycardia in the mid 30s. High-sensitivity troponin negative x 2. Chest x-ray clear. Case discussed with patient's parking meter attendant, Dr. Fay, who advised admission for observation overnight and likely Holter monitor placement at discharge. Stable at time of discharge. Differential Diagnoses Considered: Electrolyte abnormality, symptomatic bradycardia, anemia, ACS Independent Interpretation of Studies: I independently interpreted: Chest x-ray shows no evidence of pneumonia or pneumothorax. Escalation of Care: Appropriate for admission for further treatment and evaluation. Discussion of Management with Other Providers: I discussed the patient/results with: Admitting hospitalist and cardiology on-call. Procedure ECG 12 lead Performed by: Sanya Shin DO Authorized by: Sanya Shin DO ECG interpreted by ED Physician in the absence of a parking meter attendant: yes Comments: EKG interpreted by Dr. Jose Miguel Shin: Sinus bradycardia with first-degree AV block at 50 bpm. TX interval 244 ms. QTc of [address] changes. ECG 12 lead Performed by: Sanya Shin DO Authorized by: Sanya Shin DO ECG interpreted by ED Physician in the absence of a parking meter attendant: yes Comments: Repeat EKG performed at [address] Sanya Shin at 1254: Sinus bradycardia with PACs versus atrial fibrillation ablation with slow ventricular response of 42 bpm. QTc of [address] changes. 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; Service: Cardiovascular; Laterality: N/A; Stage 4 kidney MR HEAD ANGIO WO IV CONTRAST 03/28/2023 MR HEAD ANGIO WO IV CONTRAST 03/28/2023 [facility] MRI MR NECK ANGIO WO IV CONTRAST 03/28/2023 MR NECK ANGIO WO IV CONTRAST 03/28/2023 [facility] MRI OTHER SURGICAL HISTORY 09/26/2019 Appendectomy OTHER SURGICAL HISTORY 09/26/2019 Colonoscopy OTHER SURGICAL HISTORY 09/26/2019 Cataract surgery [3] Family History Problem Relation Name Age of Onset Heart attack Mother Cancer Mother Heart disease Father Heart attack Child Brain cancer Child Diabetes type II Other OTHER Breast cancer Other OTHER [4] Social History Tobacco Use Smoking status: Former Current packs/day: 0.00 Types: Cigarettes Quit date: 1988 Years since quittin.4 Passive exposure: Never Smokeless tobacco: Never Vaping Use Vaping status: Never Used Substance Use Topics Alcohol use: Never Drug use: Never Sanya Shin DO 03/04/25 1612 [facility] Work Phone: 03-04-2025 Emergency department Note Associated Order(s): ECG 12 lead; ECG 12 lead HPI Chief Complaint Patient presents with Dizziness Patient reports 2 week history of intermittant dizziness and feeling lightheaded. Patient also c/o headache. Denies N/v/D/fever/cough. Patient was seen here Sunday and treated for UTI. Patient feels his dizziness is getting worse. Limitations to History: None HPI: 84-year-old male presents with concern for lightheadedness. Present for the past 2 weeks. Patient was seen here 4 days ago and diagnosed with UTI. Is currently on antibiotic therapy. Chronic indwelling De Oliveira catheter. Patient states that he feels very fatigued and like he can go to sleep. Denies any fever, chills, nausea, vomiting, abdominal pain, urinary symptoms. Additional History Obtained from: at the bedside. ------ Physical Exam: VS: As documented in the triage note and EMR flowsheet from this visit were reviewed. Appearance: Alert. cooperative, in no acute distress. Skin: Intact, dry skin, no lesions, rash, petechiae or purpura. Eyes: PERRLA, EOMs intact, Conjunctiva pink with no redness or exudates. HENT: Normocephalic, atraumatic. Nares patent. No intraoral lesions. Neck: Supple, without meningismus. Trachea at midline. No lymphadenopathy. Pulmonary: Clear bilaterally with good chest wall excursion. No rales, rhonchi or wheezing. No accessory muscle use or stridor. Cardiac: Bradycardic and regular rhythm, no rubs, murmurs, or gallops. Abdomen: Abdomen is soft, nontender, and nondistended. No palpable organomegaly. No rebound or guarding. No CVA tenderness. Nonsurgical abdomen. Genitourinary: Exam deferred. Musculoskeletal: Full range of motion. Pulses full and equal. No cyanosis, clubbing, or edema. Neurological: Cranial nerves are grossly intact, grossly normal sensation, no weakness, no focal findings identified. NIH of 0. Psychiatric: Appropriate mood and affect. Patient History Medical History[1] Surgical History[2] Family History[3] Social History[4] Physical Exam ED Triage Vitals [03/04/25 1259] Temperature Heart Rate Respirations BP 36.8 C (98.2 F) 56 16 111/65 Pulse Ox Temp Source Heart Rate Source Patient Position 97 % Temporal -- -- BP Location FiO2 (%) -- -- Physical Exam ED Course & MDM Diagnoses as of 03/04/25 1610 Symptomatic bradycardia Bradycardia No data recorded [place] Coma Scale Score: 15 (03/04/25 1304 : Ericka Luis RN) Medical Decision Making Labs Reviewed CBC WITH AUTO DIFFERENTIAL - Abnormal WBC 9.8 nRBC 0.0 RBC 3.80 (*) Hemoglobin 11.3 (*) Hematocrit 35.1 (*) MCV 92 MCH 29.7 MCHC 32.2 RDW 15.8 (*) Platelets 175 Neutrophils % 59.0 Immature Granulocytes %, Automated 0.4 Lymphocytes % 24.3 Monocytes % 7.2 Eosinophils % 8.4 Basophils % 0.7 Neutrophils Absolute 5.76 (*) Immature Granulocytes Absolute, Au* 0.04 Lymphocytes Absolute 2.37 Monocytes Absolute 0.70 Eosinophils Absolute 0.82 (*) Basophils Absolute 0.07 COMPREHENSIVE METABOLIC PANEL - Abnormal Glucose 139 (*) Sodium 137 Potassium 4.5 Chloride 106 Bicarbonate 25 Anion Gap 11 Urea Nitrogen 41 (*) Creatinine 2.31 (*) eGFR 27 (*) Calcium 9.0 Albumin 3.9 Alkaline Phosphatase 90 Total Protein 7.1 AST 18 Bilirubin, Total 0.7 ALT 12 MAGNESIUM - Normal Magnesium 2.00 SERIAL TROPONIN-INITIAL - Normal Troponin I, High Sensitivity 13 Narrative: Less than 99th percentile of normal range cutoff- Female and children under 18 years old <14 ng/L; Male <21 ng/L: Negative Repeat testing should be performed if clinically indicated. Female and children under 18 years old 14-50 ng/L; Male 21-50 ng/L: Consistent with possible cardiac damage and possible increased clinical risk. Serial measurements may help to assess extent of myocardial damage. >50 ng/L: Consistent with cardiac damage, increased clinical risk and myocardial infarction. Serial measurements may help assess extent of myocardial damage. NOTE: Children less than 1 year old may have higher baseline troponin levels and results should be interpreted in conjunction with the overall clinical context. NOTE: Troponin I testing is performed using a different testing methodology at [facility] than at other [facility]. Direct result comparisons should only be made within the same method. SERIAL TROPONIN, 1 HOUR - Normal Troponin I, High Sensitivity 11 Narrative: Less than 99th percentile of normal range cutoff- Female and children under 18 years old <14 ng/L; Male <21 ng/L: Negative Repeat testing should be performed if clinically indicated. Female and children under 18 years old 14-50 ng/L; Male 21-50 ng/L: Consistent with possible cardiac damage and possible increased clinical risk. Serial measurements may help to assess extent of myocardial damage. >50 ng/L: Consistent with cardiac damage, increased clinical risk and myocardial infarction. Serial measurements may help assess extent of myocardial damage. NOTE: Children less than 1 year old may have higher baseline troponin levels and results should be interpreted in conjunction with the overall clinical context. NOTE: Troponin I testing is performed using a different testing methodology at [facility] than at other [facility]. Direct result comparisons should only be made within the same method. TROPONIN SERIES- (INITIAL, 1 HR) XR chest 1 view Final Result No significant interval change from prior radiograph from September 2024, with no evidence of acute cardiopulmonary process. Signed by: Joan Fish 03/04/2025 1:23 PM Dictation workstation: [id number] Medical Decision Making: Patient appears well nontoxic. During triage patient's heart rate decreased to the upper 20s. Repeat EKG performed and heart rate in the 40s which may show atrial fibrillation with a slow ventricular rate. Patient had another episode of bradycardia in the mid 30s. High-sensitivity troponin negative x 2. Chest x-ray clear. Case discussed with patient's parking meter attendant, Dr. Fay, who advised admission for observation overnight and likely Holter monitor placement at discharge. Stable at time of discharge. Differential Diagnoses Considered: Electrolyte abnormality, symptomatic bradycardia, anemia, ACS Independent Interpretation of Studies: I independently interpreted: Chest x-ray shows no evidence of pneumonia or pneumothorax. Escalation of Care: Appropriate for admission for further treatment and evaluation. Discussion of Management with Other Providers: I discussed the patient/results with: Admitting hospitalist and cardiology on-call. Procedure ECG 12 lead Performed by: Sanya Shin DO Authorized by: Sanya Shin DO ECG interpreted by ED Physician in the absence of a parking meter attendant: yes Comments: EKG interpreted by Dr. Jose Miguel Shin: Sinus bradycardia with first-degree AV block at 50 bpm. TX interval 244 ms. QTc of [address] changes. ECG 12 lead Performed by: Sanya Shin DO Authorized by: Sanya Shin DO ECG interpreted by ED Physician in the absence of a parking meter attendant: yes Comments: Repeat EKG performed at [address] Sanya Shin at 1254: Sinus bradycardia with PACs versus atrial fibrillation ablation with slow ventricular response of 42 bpm. QTc of [address] changes. 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; Service: Cardiovascular; Laterality: N/A; Stage 4 kidney MR HEAD ANGIO WO IV CONTRAST 03/28/2023 MR HEAD ANGIO WO IV CONTRAST 03/28/2023 [facility] MRI MR NECK ANGIO WO IV CONTRAST 03/28/2023 MR NECK ANGIO WO IV CONTRAST 03/28/2023 [facility] MRI OTHER SURGICAL HISTORY 09/26/2019 Appendectomy OTHER SURGICAL HISTORY 09/26/2019 Colonoscopy OTHER SURGICAL HISTORY 09/26/2019 Cataract surgery [3] Family History Problem Relation Name Age of Onset Heart attack Mother Cancer Mother Heart disease Father Heart attack Child Brain cancer Child Diabetes type II Other OTHER Breast cancer Other OTHER [4] Social History Tobacco Use Smoking status: Former Current packs/day: 0.00 Types: Cigarettes Quit date: 1988 Years since quittin.4 Passive exposure: Never Smokeless tobacco: Never Vaping Use Vaping status: Never Used Substance Use Topics Alcohol use: Never Drug use: Never Sanya Shin DO 03/04/25 1612 documented in this encounter [facility] Work Phone: 02-28-2025 Physician Emergency department Note 84-year-old male who has had an indwelling catheter for approximately 5 months without issue presents with no urine in his leg bag for the past 2-1/2 hours. States this is abnormal, he always has urine in the leg bag. Describes some suprapubic pressure. Did not appreciate any sediment or hematuria. Review of Systems Physical Exam Vitals and nursing note reviewed. Constitutional: Appearance: He is not ill-appearing or toxic-appearing. HENT: Head: Normocephalic and atraumatic. Right Ear: Tympanic membrane normal. Left Ear: Tympanic membrane normal. Nose: Nose normal. Mouth/Throat: Mouth: Mucous membranes are moist. Pharynx: No oropharyngeal exudate or posterior oropharyngeal erythema. Eyes: Extraocular Movements: Extraocular movements intact. Conjunctiva/sclera: Conjunctivae normal. Pupils: Pupils are equal, round, and reactive to light. Cardiovascular: Rate and Rhythm: Normal rate and regular rhythm. Pulmonary: Effort: Pulmonary effort is normal. No respiratory distress. Breath sounds: Normal breath sounds. No wheezing, rhonchi or rales. Abdominal: General: There is no distension. Palpations: Abdomen is soft. There is no mass. Tenderness: There is no abdominal tenderness. There is no guarding. Musculoskeletal: General: No deformity. Normal range of motion. Cervical back: Neck supple. No tenderness. Skin: General: Skin is warm and dry. Neurological: General: No focal deficit present. Mental Status: He is alert and oriented to person, place, and time. Psychiatric: Mood and Affect: Mood normal. Labs Reviewed URINALYSIS WITH REFLEX CULTURE AND MICROSCOPIC - Abnormal Result Value Color, Urine Colorless (*) Appearance, Urine Turbid (*) Specific [place], Urine 1.010 pH, Urine 6.0 Protein, Urine 30 (1+) (*) Glucose, Urine OVER (4+) (*) Blood, Urine OVER (3+) (*) Ketones, Urine NEGATIVE Bilirubin, Urine NEGATIVE Urobilinogen, Urine Normal Nitrite, Urine NEGATIVE Leukocyte Esterase, Urine 250 Tenz[place]/uL (*) Narrative: OVER is reported when the result is greater than the clinically reportable range. MICROSCOPIC ONLY, URINE - Abnormal WBC, Urine >50 (*) WBC Clumps, Urine RARE RBC, Urine >20 (*) Bacteria, Urine 1+ (*) URINE CULTURE URINALYSIS WITH REFLEX CULTURE AND MICROSCOPIC Narrative: The following orders were created for panel order Urinalysis with Reflex Culture and Microscopic. Procedure Abnormality Status --------- ------ Urinalysis with Reflex C...[[id number]] Abnormal Final result Extra Urine Sun Tube[[id number]] In process Please view results for these tests on the individual orders. EXTRA URINE SUN TUBE No orders to display Procedures Medical Decision Making 84-year-old male who has had an indwelling catheter for approximately 5 months without issue presents with no urine in his leg bag for the past 2-1/2 hours. States this is abnormal, he always has urine in the leg bag. Describes some suprapubic pressure. Did not appreciate any sediment or hematuria. Bedside bladder scan demonstrated 517 cc of urine in the bladder. The De Oliveira catheter was replaced and expressed 600 cc. Patients analysis concerning for urinary tract infection. Will give initial dose of Cipro 500 mg p.o. x 1 and a prescription for 7 days. Recommend following up with urology. He can be discharged home. Dx: Urinary retention, hematuria, kidney stone, UTI Diagnoses as of 02/28/25311 Acute cystitis with hematuria Urinary retention Nestor Beasley MD 02/28/25311 T [facility] Work Phone: 02-28-2025 Emergency department Note 84-year-old male who has had an indwelling catheter for approximately 5 months without issue presents with no urine in his leg bag for the past 2-1/2 hours. States this is abnormal, he always has urine in the leg bag. Describes some suprapubic pressure. Did not appreciate any sediment or hematuria. Review of Systems Physical Exam Vitals and nursing note reviewed. Constitutional: Appearance: He is not ill-appearing or toxic-appearing. HENT: Head: Normocephalic and atraumatic. Right Ear: Tympanic membrane normal. Left Ear: Tympanic membrane normal. Nose: Nose normal. Mouth/Throat: Mouth: Mucous membranes are moist. Pharynx: No oropharyngeal exudate or posterior oropharyngeal erythema. Eyes: Extraocular Movements: Extraocular movements intact. Conjunctiva/sclera: Conjunctivae normal. Pupils: Pupils are equal, round, and reactive to light. Cardiovascular: Rate and Rhythm: Normal rate and regular rhythm. Pulmonary: Effort: Pulmonary effort is normal. No respiratory distress. Breath sounds: Normal breath sounds. No wheezing, rhonchi or rales. Abdominal: General: There is no distension. Palpations: Abdomen is soft. There is no mass. Tenderness: There is no abdominal tenderness. There is no guarding. Musculoskeletal: General: No deformity. Normal range of motion. Cervical back: Neck supple. No tenderness. Skin: General: Skin is warm and dry. Neurological: General: No focal deficit present. Mental Status: He is alert and oriented to person, place, and time. Psychiatric: Mood and Affect: Mood normal. Labs Reviewed URINALYSIS WITH REFLEX CULTURE AND MICROSCOPIC - Abnormal Result Value Color, Urine Colorless (*) Appearance, Urine Turbid (*) Specific [place], Urine 1.010 pH, Urine 6.0 Protein, Urine 30 (1+) (*) Glucose, Urine OVER (4+) (*) Blood, Urine OVER (3+) (*) Ketones, Urine NEGATIVE Bilirubin, Urine NEGATIVE Urobilinogen, Urine Normal Nitrite, Urine NEGATIVE Leukocyte Esterase, Urine 250 Tenzin/uL (*) Narrative: OVER is reported when the result is greater than the clinically reportable range. MICROSCOPIC ONLY, URINE - Abnormal WBC, Urine >50 (*) WBC Clumps, Urine RARE RBC, Urine >20 (*) Bacteria, Urine 1+ (*) URINE CULTURE URINALYSIS WITH REFLEX CULTURE AND MICROSCOPIC Narrative: The following orders were created for panel order Urinalysis with Reflex Culture and Microscopic. Procedure Abnormality Status --------- ------ Urinalysis with Reflex C...[[id number]] Abnormal Final result Extra Urine Sun Tube[[id number]] In process Please view results for these tests on the individual orders. EXTRA URINE SUN TUBE No orders to display Procedures Medical Decision Making 84-year-old male who has had an indwelling catheter for approximately 5 months without issue presents with no urine in his leg bag for the past 2-1/2 hours. States this is abnormal, he always has urine in the leg bag. Describes some suprapubic pressure. Did not appreciate any sediment or hematuria. Bedside bladder scan demonstrated 517 cc of urine in the bladder. The De Oliveira catheter was replaced and expressed 600 cc. Patients analysis concerning for urinary tract infection. Will give initial dose of Cipro 500 mg p.o. x 1 and a prescription for 7 days. Recommend following up with urology. He can be discharged home. Dx: Urinary retention, hematuria, kidney stone, UTI Diagnoses as of 02/28/25311 Acute cystitis with hematuria Urinary retention Nestor Beasley MD 02/28/25311 documented in this encounter [facility] Work Phone: 02-25-2025 History of Present illness Narrative HPI 84 y.o. male being seen with the following problem list: Problem list: Urinary retention - de oliveira cath since 2 months, from ED in [place]. On flomax and proscar Pt follows with Dr Lucia. Underwent ureteroscopy, cysto with retrograde pyelogram and bladder lesion ablation 10/28/24. Cysto showed severe bladder trabeculation, no mass. Prostate enlargement. DOMENICO from 09/23/24 - prostate approx 88g, distended bladder, no hydro, indeterminate bladder lesion Having lots of discomfort with catheter. 12/03/24 - Urinary retention, currently with de oliveira cath. Miserable, would like to be cath free as soon as possible. Not on any blood thinners. 02/25/25 - Seen today over telehealth, performed this visit using real-time telehealth tools, including an audio/video connection between Kitty Vergara at home and Matilde Regan MD at [facility] [place]. Consent for telemedicine visit was obtained. Scheduled for [facility] on 03/30. Presents today for questions and concerns regarding surgery. Lab Results Component Value Date PSA 3.08 11/10/2022 Current Medications: Current Medications[1] Active Problems: Alejandro Vergara is a 84 y.o. male with the following Problems and Medications. Problem List[2] Current Medications[3] PMH: Medical History[4] PSH: Surgical History[5] FMH: Family History[6] SHx: Social History[7] Allergies: RX Allergies[8] Assessment/Plan All questions and concerns have been answered to patients satisfaction. He will need his cath changed on 03/12. He will stop his Plavix 5 days prior to the surgery. Have reached out to Dr. Jessie Fay to confirm the date and time of surgery given his prior stent placement 2 months ago. He would prefer 6 mo waiting after his stents, but given the patients discomfort with the de oliveira and already several months dealing with the de oliveira-related symptoms, feels it would be reasonable to proceed as planned on 03/30. Will continue asa periop. Scribe Attestation By signing my name below, I, Courtney Pendleton, attest that this documentation has been prepared under the direction and in the presence of Matilde Regan MD. [1] Current Outpatient Medications Medication Sig Dispense Refill allopurinol (Zyloprim) 300 mg tablet Take 1 tablet (300 mg) by mouth once daily. 90 tablet 3 aspirin 81 mg chewable tablet Chew 1 tablet (81 mg) once daily. 30 tablet 11 blood sugar diagnostic (Advanced Gluc Meter Test Strip) strip 1 strip once daily. 100 strip 3 bumetanide (Bumex) 0.5 mg tablet Take 1 tablet (0.5 mg) by mouth once daily. 30 tablet 11 carvedilol (Coreg) 6.25 mg tablet Take 1 tablet (6.25 mg) by mouth 2 times daily (morning and late afternoon). 60 tablet 11 cholecalciferol (Vitamin D-3) 25 MCG (1000 UT) capsule Take 1 capsule (25 mcg) by mouth once daily. clopidogrel (Plavix) 75 mg tablet Take 1 tablet (75 mg) by mouth once daily. Do not fill before January 26, 2025. 90 tablet 3 empagliflozin (Jardiance) 10 mg Take 1 tablet (10 mg) by mouth once daily. 30 tablet 5 ezetimibe (Zetia) 10 mg tablet Take 1 tablet (10 mg) by mouth once daily. 30 tablet 11 finasteride (Proscar) 5 mg tablet Take 1 tablet (5 mg) by mouth once daily. Do not crush, chew, or split. 30 tablet 11 gabapentin (Neurontin) 300 mg capsule Take 1 capsule (300 mg) by mouth 2 times a day. glucosamine/chondr hogue A sod (OSTEO BI-FLEX ORAL) Take 1 capsule by mouth once daily. HYDROcodone-acetaminophen (Tensed) 5-325 mg tablet Take 1 tablet by mouth every 6 hours if needed for severe pain (7 - 10). 20 tablet 0 insulin glargine-lixisenatide (Soliqua 100/33) 100 unit-33 mcg/mL insulin pen Inject 30 Units under the skin once daily. (Patient taking differently: Inject 19 Units under the skin once daily.) 15 mL 11 lansoprazole (PREVACID ORAL) Take 15 mg by mouth once daily. loratadine (Claritin) 10 mg tablet Take 1 tablet (10 mg) by mouth once daily. pen needle, diabetic 31 gauge x 5/16" needle 1 each once daily. 100 each 3 phenazopyridine (Pyridium) 200 mg tablet Take 1 tablet (200 mg) by mouth 3 times a day as needed for bladder spasms. 30 tablet 0 tamsulosin (Flomax) 0.4 mg 24 hr capsule Take 1 capsule (0.4 mg) by mouth once daily. 90 capsule 3 No current facility-administered medications for this visit. 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 90 tablet 3 aspirin 81 mg chewable tablet Chew 1 tablet (81 mg) once daily. 30 tablet 11 blood sugar diagnostic (Advanced Gluc Meter Test Strip) strip 1 strip once daily. 100 strip 3 bumetanide (Bumex) 0.5 mg tablet Take 1 tablet (0.5 mg) by mouth once daily. 30 tablet 11 carvedilol (Coreg) 6.25 mg tablet Take 1 tablet (6.25 mg) by mouth 2 times daily (morning and late afternoon). 60 tablet 11 cholecalciferol (Vitamin D-3) 25 MCG (1000 UT) capsule Take 1 capsule (25 mcg) by mouth once daily. clopidogrel (Plavix) 75 mg tablet Take 1 tablet (75 mg) by mouth once daily. Do not fill before January 26, 2025. 90 tablet 3 empagliflozin (Jardiance) 10 mg Take 1 tablet (10 mg) by mouth once daily. 30 tablet 5 ezetimibe (Zetia) 10 mg tablet Take 1 tablet (10 mg) by mouth once daily. 30 tablet 11 finasteride (Proscar) 5 mg tablet Take 1 tablet (5 mg) by mouth once daily. Do not crush, chew, or split. 30 tablet 11 gabapentin (Neurontin) 300 mg capsule Take 1 capsule (300 mg) by mouth 2 times a day. glucosamine/chondr hogue A sod (OSTEO BI-FLEX ORAL) Take 1 capsule by mouth once daily. HYDROcodone-acetaminophen (Tensed) 5-325 mg tablet Take 1 tablet by mouth every 6 hours if needed for severe pain (7 - 10). 20 tablet 0 insulin glargine-lixisenatide (Soliqua 100/33) 100 unit-33 mcg/mL insulin pen Inject 30 Units under the skin once daily. (Patient taking differently: Inject 19 Units under the skin once daily.) 15 mL 11 lansoprazole (PREVACID ORAL) Take 15 mg by mouth once daily. loratadine (Claritin) 10 mg tablet Take 1 tablet (10 mg) by mouth once daily. pen needle, diabetic 31 gauge x 5/16" needle 1 each once daily. 100 each 3 phenazopyridine (Pyridium) 200 mg tablet Take 1 tablet (200 mg) by mouth 3 times a day as needed for bladder spasms. 30 tablet 0 tamsulosin (Flomax) 0.4 mg 24 hr capsule Take 1 capsule (0.4 mg) by mouth once daily. 90 capsule 3 No current facility-administered medications for this visit. [4] Past Medical History: Diagnosis Date BPH (benign prostatic hyperplasia) GERD (gastroesophageal reflux disease) Gout Hyperlipidemia Hypertension Indwelling urinary catheter present Neuropathy, peripheral, autonomic, idiopathic 02/21/2023 Type 2 diabetes mellitus [5] Past Surgical History: Procedure Laterality Date CARDIAC CATHETERIZATION N/A 01/19/2025 Procedure: Left & Right Heart Cath w Angiography & LV; Surgeon: Nima Fay MD; Location: [facility] Cardiac Yield Improvement Engineer; Service: Cardiovascular; Laterality: N/A; Stage 4 kidney MR HEAD ANGIO WO IV CONTRAST 03/28/2023 MR HEAD ANGIO WO IV CONTRAST 03/28/2023 [facility] MRI MR NECK ANGIO WO IV CONTRAST 03/28/2023 MR NECK ANGIO WO IV CONTRAST 03/28/2023 [facility] MRI OTHER SURGICAL HISTORY 09/26/2019 Appendectomy OTHER SURGICAL HISTORY 09/26/2019 Colonoscopy OTHER SURGICAL HISTORY 09/26/2019 Cataract surgery [6] Family History Problem Relation Name Age of Onset Heart attack Mother Cancer Mother Heart disease Father Heart attack Child Brain cancer Child Diabetes type II Other OTHER Breast cancer Other OTHER [7] Social History Tobacco Use Smoking status: Former Current packs/day: 0.00 Types: Cigarettes Quit date: 1988 Years since quittin.4 Passive exposure: Never Smokeless tobacco: Never Vaping Use Vaping status: Never Used Substance Use Topics Alcohol use: Never Drug use: Never [8] Allergies Allergen Reactions Iodine Other Skin irritation with topical Iodine antiseptics Pregabalin Unknown Gkpklbt-Als-Htb Reductase Inhibitors Unknown documented in this encounter [facility] Work Phone: 02-02-2025 History of Present illness Narrative Chief Complaint Patient presents with Post-Cath Heart cath done 01/19/25, EKG done after procedure. Pt states he is feeling better. Pt has some right lower leg swelling HPI: I was requested by Dr. Almanzar to evaluate this patient in consultation for cardiac assessment. Mr. Kitty Vergara is a 84 y.o. year old former smoker diabetic male patient with prior medical history significant for moderate to severe aortic stenosis, CAD S/P PCI to LAD (12/2024),hypertension, diabetes, hyperlipidemia, GERD, neuropathy, Gout, CKD stage III, edema R leg, indwelling catheter. He was brought to ED [facility] on 10/18/2024 after losing his consciouness. He did not have the strength to get himself back up. Family states this has been a gradual decline over time. He endorses shortness of breath on exertion. Denied chest pain, palpitations, leg edema, lightheadedness, headaches, fever, chills, orthopnea or paroxysmal nocturnal dyspnea. EMS reported bradycardia, hypotension and hypoxia. Treated with IV fluids and nasal cannula oxygen. He improved after IV hydration, with recovery of his heart rate to 60bpm and improvement in his BP. EKG showed bradycardic sinus rhythm with 1st degree AV block and no signs of acute ischemic changes. Trop 11. BNP 321. Crea 3.1. He has been admitted for clinical compensation. He was discharged uneventfully. Echocardiogram showed moderate to severe aortic stenosis. Left heart catheterization (12/2024) Single vessel coronary artery disease Prox-mid LAD diffuse calcified 80% lesion Prox 1st OM 60% lesion RCA with irregularities Preserved LV systolic function Peak to peak gradient ~20mmHg, consistent with moderate aortic stenosis PWP 25, PA 46/23 (32), RV 51/12 (20), RA 17mmHg; LVeDP 19mmHg; CO 7.5, CI 3.4 S/P successful DFR to prox 1st OM resulting 0.98, deemed to be non-ischemic, therefore we have opted to defer the treatment for this lesion. S/P successful DFR to mid LAD resulting 0.86, deemed to be ischemic, therefore we have opted to proceed with the treatment for this lesion. S/P Successful PCI to prox-mid LAD using 2 WILLIE 3.0/38mm and 3.0/8mm (post-dil 3.5mm NC balloon) guided by IVUS Past Medical History Medical History[1] Past Surgical History Surgical History[2] Past Family History Family History[3] Allergy History Allergies[4] Past Social History Social History[5] Tobacco Use History[6] Objective Data: Last Recorded Vitals: Vitals: 02/02/25 1401 BP: 142/68 Pulse: 56 SpO2: 94% Weight: 106 kg (233 lb) Height: 1.778 m (5' 10") Last Labs: CBC - 01/12/2025: 7:52 AM 9.7 11.9 208 37.0 CMP - 01/12/2025: 7:52 AM 8.8 6.9 12 --- 0.5 3.2 3.2 7 100 PTT - No results in last year. _ _ _ TROPHS Date/Time Value Ref Range Status 10/18/2024 03:57 PM 11 0 - 20 ng/L Final 05/29/2024 12:31 PM 10 0 - 20 ng/L Final 03/28/2023 11:50 AM 12 0 - 20 ng/L Final Comment: . Less than 99th percentile of normal range cutoff- Female and children under 18 years old <14 ng/L; Male <21 ng/L: Negative Repeat testing should be performed if clinically indicated. . Female and children under 18 years old 14-50 ng/L; Male 21-50 ng/L: Consistent with possible cardiac damage and possible increased clinical risk. Serial measurements may help to assess extent of myocardial damage. . >50 ng/L: Consistent with cardiac damage, increased clinical risk and myocardial infarction. Serial measurements may help assess extent of myocardial damage. . NOTE: Children less than 1 year old may have higher baseline troponin levels and results should be interpreted in conjunction with the overall clinical context. . NOTE: Troponin I testing is performed using a different testing methodology at [facility] than at other [facility]. Direct result comparisons should only be made within the same method. 03/28/2023 10:22 AM 14 0 - 20 ng/L Final Comment: . Less than 99th percentile of normal range cutoff- Female and children under 18 years old <14 ng/L; Male <21 ng/L: Negative Repeat testing should be performed if clinically indicated. . Female and children under 18 years old 14-50 ng/L; Male 21-50 ng/L: Consistent with possible cardiac damage and possible increased clinical risk. Serial measurements may help to assess extent of myocardial damage. . >50 ng/L: Consistent with cardiac damage, increased clinical risk and myocardial infarction. Serial measurements may help assess extent of myocardial damage. . NOTE: Children less than 1 year old may have higher baseline troponin levels and results should be interpreted in conjunction with the overall clinical context. . NOTE: Troponin I testing is performed using a different testing methodology at [facility] than at other [facility]. Direct result comparisons should only be made within the same method. BNP Date/Time Value Ref Range Status 10/18/2024 03:57 PM 321 0 - 99 pg/mL Final HGBA1C Date/Time Value Ref Range Status 09/05/2024 07:38 AM 7.2 See comment % Final 05/08/2024 07:33 AM 7.3 see below % Final LDLCALC Date/Time Value Ref Range Status 09/26/2024 07:54 AM 42 <=99 mg/dL Final Comment: Near Borderline AGE Desirable Optimal High High Very High 0-19 Y 0 - 109 --- 110-129 >/= 130 ---- 20-24 Y 0 - 119 --- 120-159 >/= 160 ---- >24 Y 0 - 99 100-129 130-159 160-189 >/=190 VLDL Date/Time Value Ref Range Status 09/26/2024 07:54 AM 60 0 - 40 mg/dL Final 03/29/2022 07:54 AM SEE COMMENT 0 - 40 mg/dL Final Comment: Unable to calculate VLDL. 03/29/2020 08:37 AM SEE COMMENT 0 - 40 mg/dL Final Comment: Unable to calculate VLDL. Patient Medications: Encounter Medications[7] Physical Exam: General: alert and in no acute distress HEENT: NC/AT; EOMI; PERRLA, external ear is normal Neck: supple; trachea midline; no masses; no JVD Chest: clear breath sounds bilaterally; no wheezing Cardio: regular rhythm, S1S2 normal, systolic murmur 3+/6+ RUSB Abdomen: Soft, non-tender, non-distension, no organomegaly. Good healing access site Extremities: Edema 1+/3+ R leg Past Cardiology Results (Last 3 Years): EKG: ECG 12 lead STAT 01/19/2025 Electrocardiogram 12 Lead 01/19/2025 ECG 12 lead (Clinic Performed) 12/08/2024 ECG 12 lead ECG 12 lead 05/29/2024 Echo: Echo Results: Transthoracic Echo (TTE) Complete With Contrast 10/20/2024 [place] [address] [phone], TRANSTHORACIC ECHOCARDIOGRAM REPORT Patient Name: KITTY Peña JAI Reading Physician: [id number] Santiago Marquez MD Study Date: 10/20/2024 Ordering Provider: [id number] ZANA MATHEWS MRN/PID: [id number] Fellow: Nurse: Ayaka Hernandez RN Date of /Age: 1007/06/1940 Manager Garden: NELLY Red RVT Gender Assigned at M Additional Staff: : Height: 177.80 cm Admit Date: 10/18/2024 Weight: 104.33 kg Admission Status: Inpatient - Routine BSA / BMI: 2.22 m2 / 33.00 Department Location: [address] kg/m2 Blood Pressure: 160 /86 mmHg Study Type: TRANSTHORACIC ECHO (TTE) COMPLETE Diagnosis/ICD: Bradycardia, unspecified-R00.1; Unspecified atrial fibrillation-I48.91 Indication: Francisco,AFib CPT Codes: Echo Complete w Full Doppler-[id number] Patient History: Pertinent History: Previous echo 03-28-23. Study Detail: The following Echo studies were performed: 2D, M-Mode, Doppler and color flow. Definity used as a contrast agent for endocardial border definition. A bubble study was not performed. The patient was awake. PHYSICIAN INTERPRETATION: Left Ventricle: Left ventricular ejection fraction is normal, calculated by Villalobos's biplane at 67%. The patient is in atrial fibrillation which may influence the estimate of left ventricular function and transvalvular flows. There are no regional wall motion abnormalities. The left ventricular cavity size is normal. There is mild increased septal and mildly increased posterior left ventricular wall thickness. There is left ventricular concentric remodeling. Spectral Doppler shows a Grade II (pseudonormal pattern) of left ventricular diastolic filling with an elevated left atrial pressure. Left Atrium: The left atrium is normal in size. A bubble study using agitated saline was not performed. Right Ventricle: The right ventricle is normal in size. There is normal right ventricular global systolic function. Right Atrium: The right atrium is normal in size. Aortic Valve: The aortic valve is trileaflet. There is evidence of moderate to severe aortic valve stenosis. The aortic valve dimensionless index is 0.23. There is no evidence of aortic valve regurgitation. The peak instantaneous gradient of the aortic valve is 73 mmHg. The mean gradient of the aortic valve is 44 mmHg. Mitral Valve: The mitral valve is normal in structure. There is mild mitral valve regurgitation. Tricuspid Valve: The tricuspid valve is structurally normal. There is trace tricuspid regurgitation. Pulmonic Valve: The pulmonic valve is not well visualized. There is no indication of pulmonic valve regurgitation. Pericardium: No pericardial effusion noted. Aorta: The aortic root is normal. CONCLUSIONS: 1. Poorly visualized anatomical structures due to suboptimal image quality. 2. Left ventricular ejection fraction is normal, calculated by Villalobos's biplane at 67%. 3. Spectral Doppler shows a Grade II (pseudonormal pattern) of left ventricular diastolic filling with an elevated left atrial pressure. 4. There is normal right ventricular global systolic function. 5. Moderate to severe aortic valve stenosis. 6. Compared to prior TTE dated 03/28/2023 - aortic stenosis has progressed and now appears to be moderate-severe. 7. The patient is in atrial fibrillation which may influence the estimate of left ventricular function and transvalvular flows. QUANTITATIVE DATA SUMMARY: 2D MEASUREMENTS: Normal Ranges: Ao Root d: 3.10 cm (2.0-3.7cm) LAs: 3.70 cm (2.7-4.0cm) IVSd: 1.35 cm (0.6-1.1cm) LVPWd: 1.38 cm (0.6-1.1cm) LVIDd: 4.65 cm (3.9-5.9cm) LVIDs: 3.06 cm LV Mass Index: 113.5 g/m2 LV % FS 34.2 % LA VOLUME: Normal Ranges: LA Vol A4C: 31.2 ml (22+/-6mL/m2) LA Vol A2C: 54.6 ml LA Vol BP: 43.6 ml LA Vol Index A4C: 14.1ml/m2 LA Vol Index A2C: 24.7 ml/m2 LA Vol Index BP: 19.7 ml/m2 LA Area A4C: 14.7 cm2 LA Area A2C: 18.4 cm2 LA Major Goltry A4C: 5.9 cm LA Major Goltry A2C: 5.3 cm LA Volume Index: 24.0 ml/m2 LA Vol A4C: 31.4 ml LA Vol A2C: 53.3 ml LA Vol Index BSA: 19.1 ml/m2 M-MODE MEASUREMENTS: Normal Ranges: AoV Exc: 0.90 cm (1.5-2.5cm) AORTA MEASUREMENTS: Normal Ranges: AoV Exc: 0.90 cm (1.5-2.5cm) LV SYSTOLIC FUNCTION BY 2D PLANIMETRY (MOD): Normal Ranges: EF-A4C View: 63 % (>=55%) EF-A2C View: 71 % EF-Biplane: 67 % LV EF Reported: 67 % LV DIASTOLIC FUNCTION: Normal Ranges: MV Peak E: 1.26 m/s (0.7-1.2 m/s) MV Peak A: 1.18 m/s (0.42-0.7 m/s) E/A Ratio: 1.07 (1.0-2.2) MV e' 0.089 m/s (>8.0) MV lateral e' 0.07 m/s MV medial e' 0.11 m/s E/e' Ratio: 14.21 (<8.0) MITRAL VALVE: Normal Ranges: MV DT: 289 msec (150-240msec) MITRAL INSUFFICIENCY: Normal Ranges: MR Vmax: 351.00 cm/s AORTIC VALVE: Normal Ranges: AoV Vmax: 4.26 m/s (<=1.7m/s) AoV Peak P.6 mmHg (<20mmHg) AoV Mean P.0 mmHg (1.7-11.5mmHg) LVOT Max Clyde: 1.10 m/s (<=1.1m/s) AoV VTI: 104.00 cm (18-25cm) LVOT VTI: 23.70 cm LVOT Diameter: 2.20 cm (1.8-2.4cm) AoV Area, VTI: 0.87 cm2 (2.5-5.5cm2) AoV Area,Vmax: 0.98 cm2 (2.5-4.5cm2) AoV Dimensionless Index: 0.23 RIGHT VENTRICLE: RV Basal 3.65 cm RV Mid 2.11 cm RV Major 6.9 cm TAPSE: 20.9 mm TRICUSPID VALVE/RVSP: Normal Ranges: Peak TR Velocity: 3.26 m/s RV Syst Pressure: 46 mmHg (< 30mmHg) PULMONIC VALVE: Normal Ranges: PV Accel Time: 106 msec (>120ms) PV Max Clyde: 2.3 m/s (0.6-0.9m/s) PV Max P.3 mmHg [id number] Santiago Marquez MD Electronically signed on 10/20/2024 at 9:11:55 AM Final Cath: Cardiac Catheterization Procedure 01/19/2025 CV NCDR CATHPCI V5 COLLECTION FORM Stress Test: No results found for this or any previous visit from the past 1095 days. Cardiac Imaging: No results found for this or any previous visit from the past 1095 days. Assessment/Plan Mr. Kitty Vergara is a 84 y.o. year old former smoker diabetic male patient with prior medical history significant for moderate to severe aortic stenosis, hypertension, diabetes, hyperlipidemia, GERD, neuropathy, Gout, CKD stage III, edema R leg. He was brought to ED [facility] on 10/18/2024 after losing his consciouness. He did not have the strength to get himself back up. Family states this has been a gradual decline over time. He endorses shortness of breath on exertion. Denied chest pain, palpitations, leg edema, lightheadedness, headaches, fever, chills, orthopnea or paroxysmal nocturnal dyspnea. EMS reported bradycardia, hypotension and hypoxia. Treated with IV fluids and nasal cannula oxygen. He improved after IV hydration, with recovery of his heart rate to 60bpm and improvement in his BP. EKG showed bradycardic sinus rhythm with 1st degree AV block and no signs of acute ischemic changes. Trop 11. BNP 321. Crea 3.1. He has been admitted for clinical compensation. He was discharged uneventfully. Echocardiogram showed moderate to severe aortic stenosis. Assessment # Moderate to severe aortic stenosis - Lost his consciousness, bradycardia and hypotension in the setting of dehydration. - Reports shortness of breath on exertion. - Trop 11. - BNP 321. - Echo (09/2024): 1. Poorly visualized anatomical structures due to suboptimal image quality. 2. Left ventricular ejection fraction is normal, calculated by Villalobos's biplane at 67%. 3. Spectral Doppler shows a Grade II (pseudonormal pattern) of left ventricular diastolic filling with an elevated left atrial pressure. 4. There is normal right ventricular global systolic function. 5. Moderate to severe aortic valve stenosis. 6. Compared to prior TTE dated 03/28/2023 - aortic stenosis has progressed and now appears to be moderate-severe. 7. The patient is in atrial fibrillation which may influence the estimate of left ventricular function and transvalvular flows. - New EKG showing sinus rhythm. - Right and Left Heart Catheterization (01/19/2025): Single vessel coronary artery disease Prox-mid LAD diffuse calcified 80% lesion Prox 1st OM 60% lesion RCA with irregularities Preserved LV systolic function Peak to peak gradient ~20mmHg, consistent with moderate aortic stenosis PWP 25, PA 46/23 (32), RV 51/12 (20), RA 17mmHg; LVeDP 19mmHg; CO 7.5, CI 3.4 S/P successful DFR to prox 1st OM resulting 0.98, deemed to be non-ischemic, therefore we have opted to defer the treatment for this lesion. S/P successful DFR to mid LAD resulting 0.86, deemed to be ischemic, therefore we have opted to proceed with the treatment for this lesion. S/P Successful PCI to prox-mid LAD using 2 WILLIE 3.0/38mm and 3.0/8mm (post-dil 3.5mm NC balloon) guided by IVUS - Keep ASA 81mg daily, Clopidogrel, beta-jami. - Patient intolerant to statins. - Cardiac rehab. - Bumex 0.5mg daily for R leg swelling. - Follow up in 6 months. Request new echo upon return for Structural Heart team evaluation. # CKD - Crea 3.1 --> 2.66 --> 2.29 - Indwelling catheter. May need Urological procedure. - Would suggest follow up with Nephrology / Urology team. # Edema R leg - No signs of fracture in X ray - Follow up with Orthopedic team. # Hypertension - Low blood pressure; it has improved after hydration. - Would suggest to hold medications at this point - Nifedipine, and restart it once the patient is more stable. # Diabetes - Controlled by PCP. - Counseled on healthy diet and regular exercises. - Discussed need for weight loss and the benefits. - Keep current medications including Empaglifozin. # Hyperlipidemia - Controlled by PCP. - Keep home medication with Ezetimibe. - Counseled on healthy diet and regular exercise. # Gout - Keep Allopurinol. We have discussed the most common side effects of the prescribed medications, indications, drug interactions, risks, complications, and alternatives of medications/therapeutics were explained and discussed. The patient has been requested to monitor closely for any untoward side effects or complications of medications. The patient has been strongly advised to be compliant with the recommendations, all the questions and concerns have been addressed. The patient has been also instructed to call, to return sooner or to go to the emergency department if symptoms persist or get worsen. The patient voiced understanding and denies any further questions at this time. This note was transcribed using the [employer] Dictation system. There may be grammatical, punctuation, or verbiage errors that occur with voice recognition programs. Counseling greater than 50% of visit regarding all cardiac issues. Thank you, Dr. Almanzar, for allowing me to participate in the care of this patient. Please do not hesitate to contact me with any further questions or concerns. Nima Fay MD Cardiology 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; Service: Cardiovascular; Laterality: N/A; Stage 4 kidney MR HEAD ANGIO WO IV CONTRAST 03/28/2023 MR HEAD ANGIO WO IV CONTRAST 03/28/2023 [facility] MRI MR NECK ANGIO WO IV CONTRAST 03/28/2023 MR NECK ANGIO WO IV CONTRAST 03/28/2023 [facility] MRI OTHER SURGICAL HISTORY 09/26/2019 Appendectomy OTHER SURGICAL HISTORY 09/26/2019 Colonoscopy OTHER SURGICAL HISTORY 09/26/2019 Cataract surgery [3] Family History Problem Relation Name Age of Onset Heart attack Mother Cancer Mother Heart disease Father Heart attack Child Brain cancer Child Diabetes type II Other OTHER Breast cancer Other OTHER [4] Allergies Allergen Reactions Iodine Other Skin irritation with topical Iodine antiseptics Pregabalin Unknown Sqfevgs-Qpo-Xnk Reductase Inhibitors Unknown [5] Social History Socioeconomic History Marital status: Spouse name: Adriel Tobacco Use Smoking status: Former Current packs/day: 0.00 Types: Cigarettes Quit date: 1988 Years since quittin.3 Passive exposure: Never Smokeless tobacco: Never Vaping Use Vaping status: Never Used Substance and Sexual Activity Alcohol use: Never Drug use: Never Sexual activity: Defer Social Drivers of Health Financial Resource Strain: Low Risk (10/20/2024) Overall Financial Resource Strain (CARDIA) Difficulty of Paying Living Expenses: Not hard at all Food Insecurity: No Food Insecurity (10/19/2024) Hunger Vital Sign Worried About Running Out of Food in the Last Year: Never true Ran Out of Food in the Last Year: Never true Transportation Needs: No Transportation Needs (01/25/2025) OASIS A1250: Transportation Lack of Transportation (Medical): No Lack of Transportation (Non-Medical): No Patient Unable or Declines to Respond: No Social Connections: Feeling Socially Integrated (01/25/2025) OASIS D0700: Social Isolation Frequency of experiencing loneliness or isolation: Rarely Intimate Partner Violence: Not At Risk (10/19/2024) Humiliation, Afraid, Rape, and Kick questionnaire Fear of Current or Ex-Partner: No Emotionally Abused: No Physically Abused: No Sexually Abused: No Housing Stability: Low Risk (10/20/2024) Housing Stability Vital Sign Unable to Pay for Housing in the Last Year: No Number of Times Moved in the Last Year: 0 Homeless in the Last Year: No [6] Social History Tobacco Use Smoking Status Former Current packs/day: 0.00 Types: Cigarettes Quit date: 1988 Years since quittin.3 Passive exposure: Never Smokeless Tobacco Never [7] Outpatient Encounter Medications as of 02/02/2025 Medication Sig Dispense Refill allopurinol (Zyloprim) 300 mg tablet Take 1 tablet (300 mg) by mouth once daily. 90 tablet 3 aspirin 81 mg chewable tablet Chew 1 tablet (81 mg) once daily. 30 tablet 11 blood sugar diagnostic (Advanced Gluc Meter Test Strip) strip 1 strip once daily. 100 strip 3 carvedilol (Coreg) 6.25 mg tablet Take 1 tablet (6.25 mg) by mouth 2 times daily (morning and late afternoon). 60 tablet 11 cholecalciferol (Vitamin D-3) 25 MCG (1000 UT) capsule Take 1 capsule (25 mcg) by mouth once daily. clopidogrel (Plavix) 75 mg tablet Take 1 tablet (75 mg) by mouth once daily. Do not fill before January 26, 2025. 90 tablet 3 clopidogrel (Plavix) 75 mg tablet Take 1 tablet (75 mg) by mouth once daily for 7 days. 7 tablet 0 empagliflozin (Jardiance) 10 mg Take 1 tablet (10 mg) by mouth once daily. 30 tablet 5 ezetimibe (Zetia) 10 mg tablet Take 1 tablet (10 mg) by mouth once daily. 30 tablet 11 finasteride (Proscar) 5 mg tablet Take 1 tablet (5 mg) by mouth once daily. Do not crush, chew, or split. 30 tablet 11 gabapentin (Neurontin) 300 mg capsule Take 1 capsule (300 mg) by mouth 2 times a day. glucosamine/chondr hogue A sod (OSTEO BI-FLEX ORAL) Take 1 capsule by mouth once daily. HYDROcodone-acetaminophen (Tensed) 5-325 mg tablet Take 1 tablet by mouth every 6 hours if needed for severe pain (7 - 10). 20 tablet 0 insulin glargine-lixisenatide (Soliqua 100/33) 100 unit-33 mcg/mL insulin pen Inject 30 Units under the skin once daily. (Patient taking differently: Inject 19 Units under the skin once daily.) 15 mL 11 lansoprazole (PREVACID ORAL) Take 15 mg by mouth once daily. loratadine (Claritin) 10 mg tablet Take 1 tablet (10 mg) by mouth once daily. pen needle, diabetic 31 gauge x 5/16" needle 1 each once daily. 100 each 3 phenazopyridine (Pyridium) 200 mg tablet Take 1 tablet (200 mg) by mouth 3 times a day as needed for bladder spasms. 30 tablet 0 tamsulosin (Flomax) 0.4 mg 24 hr capsule Take 1 capsule (0.4 mg) by mouth once daily. 90 capsule 3 No facility-administered encounter medications on file as of 02/02/2025. documented in this encounter [facility] Work Phone: 01-29-2025 History of Present illness Narrative Subjective Still has de oliveira in place Has had 2 heart stents Doing well Feels well. Patient ID: Kitty Stallworth" is a 84 y.o. male who presents for Follow-up (3 month follow-up). HPI Kidney disease with urinary retention Labs were completed last on January 12 Glucose is 118 BUN 31 with a creatinine of 2.06 with an estimated GFR of 31 electrolytes look pretty good potassium is 5 bicarb 24 calcium 8.8 hemoglobin 11.9 blood pressure here in the office is 136/70 medications are reviewed he is on allopurinol aspirin Coreg vitamin D SGLT2 gabapentin insulin PPI Flomax Review of Systems Constitutional: Negative. HENT: Negative. Eyes: Negative. Respiratory: Negative. Cardiovascular: Negative. Gastrointestinal: Negative. Endocrine: Negative. Genitourinary: Negative. Musculoskeletal: Negative. Skin: Negative. Allergic/Immunologic: Negative. Neurological: Negative. Hematological: Negative. Psychiatric/Behavioral: Negative. Objective Physical Exam Constitutional: Appearance: Normal appearance. HENT: Head: Normocephalic and atraumatic. Right Ear: External ear normal. Left Ear: External ear normal. Nose: Nose normal. Mouth/Throat: Mouth: Mucous membranes are moist. Pharynx: Oropharynx is clear. Eyes: Extraocular Movements: Extraocular movements intact. Conjunctiva/sclera: Conjunctivae normal. Pupils: Pupils are equal, round, and reactive to light. Cardiovascular: Rate and Rhythm: Normal rate and regular rhythm. Pulmonary: Effort: Pulmonary effort is normal. Breath sounds: Normal breath sounds. Abdominal: General: Abdomen is flat. Palpations: Abdomen is soft. Genitourinary: Comments: De Oliveira in place Musculoskeletal: General: Swelling present. Skin: General: Skin is warm and dry. Neurological: General: No focal deficit present. Mental Status: He is alert and oriented to person, place, and time. Psychiatric: Mood and Affect: Mood normal. Behavior: Behavior normal. Assessment/Plan Problem List Items Addressed This Visit ICD-10-CM Hyperlipidemia E78.5 Hypertension I10 Type 2 diabetes mellitus with chronic kidney disease, with long-term current use of insulin (Multi) E11.22, Z79.4 Chronic kidney disease (CKD), stage IV (severe) (Multi) N18.4 Other Visit Diagnoses Codes 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) - Primary E11.22, N18.4 Relevant Orders Follow Up In Nephrology Basic metabolic panel Albumin-Creatinine Ratio, Urine Random Urinalysis with Reflex Microscopic Plan: Renal function is very stable. BP is good De Oliveira in place Continue as he is on. F/U in 6 months. Chronic kidney disease stage IV with baseline creatinine 2-2.4 Urinary retention requiring De Oliveira catheter Renal cyst Bladder lesion Diabetes mellitus type 2 on insulin, Hypertension History of NSAID use GERD, on PPI Gout Hyperlipidemia Adriana Howell DO 01/29/25 11:20 AM documented in this encounter [facility] Work Phone: 01-19-2025 Plan of care note Patient recommended to keep DAPT therapy with ASA and plavix for minimum of 3 months before a break in therapy. [facility] Work Phone: 01-19-2025 Miscellaneous Notes Patient recommended to keep DAPT therapy with ASA and plavix for minimum of 3 months before a break in therapy. Sedation Plan ASA 3 Mallampati class: II. Risks, benefits, and alternatives discussed with patient. 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 S/P successful DFR to mid LAD resulting 0.86, deemed to be ischemic, therefore we have opted to proceed with the treatment for this lesion. S/P Successful PCI to prox-mid LAD using 2 WILLIE 3.0/38mm and 3.0/8mm (post-dil 3.5mm NC balloon) guided by IVUS Description of the Procedure: Procedure: Right and Left Heart Catheterization Right Cephalic brachial vein access with 5F sheath using microcatheter under ultrasound guidance. 5F balloon-tip Arrow catheter inserted and advanced to the pulmonary artery. Right heart catheterization and hemodynamic measurements. Cardiac output and cardiac index assessed by Kendell method. Catheter removed. PWP 25, PA 46/23 (32), RV 51/12 (20), RA 17mmHg; LVeDP 19mmHg CO 7.5, CI 3.4 R radial artery access with 6F sheath. LV and Ao hemodynamic measurements. S/P LHC that showed single vessel obstructive coronary artery disease. Prox-mid LAD diffuse calcified 80% lesion Prox 1st OM 60% lesion RCA with irregularities Preserved LV systolic function Peak to peak gradient ~20mmHg, consistent with moderate aortic stenosis Due to severe tortuosity, we have opted to switch to femoral access. R femoral artery access with 6F sheath above the bifurcation using micropuncture under ultrasound guidance. Hemodynamic measurements. S/P Left heart catheterization (LHC) showing significant coronary artery disease with severe obstruction in the prox-mid LAD, heavily calcified diffuse 80% lesion. Catheter switched to 6F XB 3.5. Heparinization 100ui/Kg. ACT > 250s. Due to intermediate coronary lesions, we opted to perform FFR (Fractional Flow [place]) study through DFR (Diastolic Hyperemia-Free Ratio) to assess ischemic features for the lesions. S/P successful DFR to prox 1st OM resulting 0.98, deemed to be non-ischemic, therefore we have opted to defer the treatment for this lesion. S/P successful DFR to prox-mid LAD resulting 0.86, deemed to be ischemic, therefore we have opted to proceed with the treatment for this lesion. S/P successful percutaneous coronary intervention to proximal-mid LAD using two drug-eluting stents (WILLIE) 3.0/38mm and 3.0/8mm (post-dil 3.5mm NC balloon) guided by intra-vascular ultrasound (IVUS). Patient remained stable during the entire procedure. No complications. Hemostasis with Perclose x1 and manual pressure. Plan: Patient loaded with ASA 325mg and Plavix 600mg. Should be discharged home keeping ASA 81mg daily and Plavix 75mg daily. Compared to the pre-procedural EKG, post-procedural EKG with no new abnormalities and no signs of acute coronary syndrome. Keep hydration 100mL/h for at least 3 hours, ideally 6 hours. Patient may be discharged home after bed rest for 3 hours. Constant check for access site bleeding. After the patient resumes walking, observe for 15 minutes and check for signs of bleeding. We have provided detailed recommendations for the adequate care of the access site, especially with instructions for exercise and in case of bleeding. Patient counseled to keep clean dressing and avoid bathing for the next 24 hours. Avoid extenuating exercises for 7 days. Avoid bath tube and swimming pool for 7 days. Patient advised to go to the Emergency Department in case of bleeding. Case has been discussed with Heart Surgery Team - Dr Rodrigues, who due to the patient's frailty, agreed to proceed with PCI to prox-mid LAD, and afterwards CTA for evaluation of TAVR procedure in the future. Cardiac rehab. Cardiology follow up. Would suggest to keep conservative treatment and guideline-directed medical therapy (GDMT) for the remaining lesions. Would suggest evaluation by the Structural Heart team - Dr. Rodrigues. Complications: No Stents/Implants: Implants Stent Stent, Rojelio Lynn Willie, 3.00 X 38rx - [id number] - Implanted Inventory item: STENT, ROJELIO FRONTIER WILLIE, 3.00 X 38RX Model/Cat number: [id number] Canvas Baster: [employer] Lot number: [id number] Device identifier: [id number] GUDID Information Request status Successful Brand name: Rojelio Lynn Version/Model: [id number] Company name: [employer] MRI safety info as of 01/19/25: MR Conditional Contains dry or latex rubber: No GMDN P.T. name: Drug-eluting coronary artery stent, zki-zztitmjtmwrmz-mqooxrc-coated As of 01/19/2025 Status: Implanted Stent, Liberty Lynn Willie, 3.00 X 08rx - [id number] - Implanted Inventory item: STENT, ROJELIO FRONTIER WILLIE, 3.00 X 08RX Model/Cat number: [id number] Canvas Baster: [employer] Lot number: [id number] Device identifier: [id number] GUDID Information Request status Successful Brand name: Rojelio Lynn Version/Model: [id number] Company name: [employer] MRI safety info as of 01/19/25: MR Conditional Contains dry or latex rubber: No GMDN P.T. name: Drug-eluting coronary artery stent, nel-jsobuwpvajgow-qffjlvk-coated As of 01/19/2025 Status: Implanted Anticoagulation/Antiplatelet Plan: Should be discharged home keeping ASA 81mg daily and Plavix 75mg daily. Estimated Blood Loss: 5 mL Anesthesia: Moderate Sedation Anesthesia Staff: No anesthesia staff entered. Any Specimen(s) Removed: Order Name Source Comment Collection Info Order Time BLOOD GAS MIXED VENOUS FULL PANEL Blood, Mixed Venous Collected By: Jose Alfredo Pierre RN 01/19/2025 8:39 AM Release result to [facility] Immediate Disposition: Home Electronically signed by: Nima Fay MD, 01/19/2025 10:17 AM documented in this encounter [facility] Work Phone: 01-19-2025 Hospital Discharge instructions Tati Phoenix APRN-RICARDO, HETAL - 01/19/2025 10:02 AM EDT Images from the original note were not included. CARDIAC CATHETERIZATION DISCHARGE INSTRUCTIONS FOR SUDDEN AND SEVERE CHEST PAIN, SHORTNESS OF BREATH, EXCESSIVE BLEEDING, SIGNS OF STROKE, OR CHANGES IN MENTAL STATUS YOU SHOULD CALL 911 IMMEDIATELY. If your provider has prescribed aspirin and/or clopidogrel (Plavix), or prasugrel (Effient), or ticagrelor (Brilinta), DO NOT STOP THESE MEDICATIONS for any reason without talking to your parking meter attendant first. If any of these were prescribed, you must take them every day without missing a single dose. If you are getting low on these medications, contact your provider immediately for a refill. FOR NEXT 24 HOURS - Upon discharge, you should return home and rest for the remainder of the day and evening. You do not have to stay on bed rest but should not be very active. It is recommended a responsible adult be with you for the first 24 hours after the procedure. - No driving for 24 hours after procedure. Please arrange for someone to drive you home from the hospital today. - Do not drive, operate machinery, or use power tools for 24 hours after your procedure. - Do not make any legal decisions for 24 hours after your procedure. - Do not drink alcoholic beverages for 24 hours after your procedure. WOUND CARE *FOR FEMORAL (LEG) ACCESS* Avoid heavy lifting (over 10 pounds) for 7 days, squatting or excessive bending for 2 days, and strenuous exercise for 7 days. No submerged bathing, swimming, or hot tubs for the next 7 days, or until fully healed. Avoid sexual activity for 3-4 days until any groin discomfort has ceased. *FOR RADIAL (WRIST) ACCESS* No lifting more than 5 pounds or excessive use of the wrist for 24 hours - for example, treat your wrist as if it is sprained. Do not engage in vigorous activities (tennis, golf, bowling, weights) for at least 48 hours after the procedure. Do not submerge the wrist for 7 days after the procedure. You should expect mild tingling in your hand and tenderness at the puncture site for up to 3 days. - The transparent dressing should be removed from the site 24 hours after the procedure. Wash the site gently with soap and water. Rinse well and pat dry. Keep the area clean and dry. You may apply a Band-Aid to the site. Avoid lotions, ointments, or powders until fully healed. - You may shower the day after your procedure. - It is normal to notice a small bruise around the puncture site and/or a small grape sized or smaller lump. Any large bruising or large lump warrants a call to the office. - If bleeding should occur, lay down and apply pressure to the affected area for 10 minutes. If the bleeding stops notify your physician. If there is a large amount of bleeding or spurting of blood CALL [address] yourself to the hospital. - You may experience some tenderness, bruising or minimal inflammation. If you have any concerns, you may contact the Yield Improvement Engineer or if any of these symptoms become excessive, contact your parking meter attendant or go to the emergency room. OTHER INSTRUCTIONS - You may take acetaminophen (Tylenol) as directed for discomfort. If pain is not relieved with acetaminophen (Tylenol), contact your doctor. - If you notice or experience any of the following, you should notify your doctor or seek medical attention Chest pain or discomfort Change in mental status or weakness in extremities. Dizziness, light headedness, or feeling faint. Change in the site where the procedure was performed, such as bleeding or an increased area of bruising or swelling. Tingling, numbness, pain, or coolness in the leg/arm beyond the site where the procedure was performed. Signs of infection (i.e. shaking chills, temperature > 100 degrees Fahrenheit, warmth, redness) in the leg/arm area where the procedure was performed. Changes in urination Bloody or black stools Vomiting blood Severe nose bleeds Any excessive bleeding - If you DO NOT have an appointment with your parking meter attendant within 2-4 weeks following your procedure, please contact their office. Lifestyle Recommendations for a Healthier Life: The following lifestyle changes can have a significant positive impact on your overall health - helping you to achieve healthy weight, lower metabolic and heart disease risk and manage stress more effectively: 1. Eat whole, fresh foods. Food is one of the biggest drivers of our overall health. Make your meals whole foods based, focusing on a wide variety of non starchy vegetables and fruits. It also beneficial to include various nuts, seeds and high-quality animal proteins for overall balanced diet. 2. Remove the sweeteners from your diet. Artificial sweeteners have a negative impact on our metabolic health - they can cause increase in both glucose and insulin, increasing the risk or potential for insulin resistance and abnormal blood sugar levels. Artificial sweeteners are also excessively sweeter than regular sugar, they trick our taste buds into craving extreme forms of sweet, like an addiction. I encourage you to avoid sugar, but also stevia, aspartame, sucralose, sugar alcohols like xylitol and maltitol. 3. Get rid of the inflammatory factors in your diet - this mainly comes from sugars of all kinds and refined vegetable oils. These can increase our risk for changes in our metabolic health which can lead to diabetes, heart disease and other chronic disease. You can reverse or combat the effective of inflammatory foods by increasing your intake of anti-inflammatory foods like wild-caught fish, fresh ground flax seed, fish oil and variety of fruits & vegetables. 4. Eat plenty of fiber!! The standard [place] diet has very low levels of daily dietary fiber, many people barely get 15 grams per day. There is plenty of nutrition research that shows how high-fiber foods can help lower our blood sugar. Eat a wide variety of fiber-rich plant-based foods including nuts, seeds, fruits, vegetables, and legumes. 5. Get enough sleep. Studies from experts in endocrinology & metabolism have shown that even a few nights of poor sleep can increase the risk of insulin resistance and abnormal blood sugar values. Make sleep a priority - it is an important factor in your health. Develop a sleep routine including: avoid eating two-three hours before bed, practice relaxation techniques (warm bath, meditation, yoga, mindfulness) to help relax your muscles and prepare you for sleep. Go to bed and wake up at consistent times. Avoid screen time for at least 60-90 minutes before bedtime. 6. Make exercise part of your regular routine. Exercise helps us manage blood sugar more effectively and makes our cells more receptive to the effect of the insulin our body makes (lowers blood sugar). Regular aerobic exercise AND interval or strength training are ideal to help maintain a healthy weight, metabolism & lower the risk of chronic disease. 7. Control stress levels. Chronic stress can lead to elevated blood sugar, elevated blood pressure, accumulation of fat around the belly and these things increase the risk for metabolic syndrome, diabetes and heart disease. We all have various levels of stress in our lives, we can't control all of it, but we can control how we respond to it and manage it's impact. Find healthy outlets for stress management like meditation, yoga, deep breathing, or exercise. Home BP monitoring instructions: Goal < 130 / 80 Remain still, Avoid smoking, caffeinated beverages, or exercise within 30 min before BP measurements. Ensure 5 min of quiet rest before BP measurements. Sit correctly with back straight and supported (on a straight-backed dining chair, for example, rather than a sofa). Sit with feet flat on the floor and legs uncrossed. Keep arm supported on a flat surface (such as a table), with the upper arm at heart level. Bottom of the cuff should be placed directly above the bend of the elbow Take a reading in the AM before breakfast 2-3 times / week Record all readings accurately: A written log should be brought to all appointments Monitors with built-in memory should be brought to all clinic appointments and calibrated to our machines Weight Management: Since food equals calories, in order to lose weight you must either eat fewer calories, exercise more to burn off calories with activity, or both. Food that is not used to fuel the body is stored as fat. A major component of losing weight is to make smarter food choices. Here's how: Limit non-nutritious foods, such as: Sugar, honey, syrups and candy Pastries, donuts, pies, cakes and cookies Soft drinks, sweetened juices and alcoholic beverages Cut down on high-fat foods by: Choosing poultry, fish or lean red meat Choosing low-fat cooking methods, such as baking, broiling, steaming, grilling and boiling Using low-fat or non-fat dairy products Using vinaigrette, herbs, lemon or fat-free salad dressings Avoiding fatty meats, such as fields, sausage, tovar, ribs and luncheon meats Avoiding high-fat snacks like nuts, chips and chocolate Avoiding fried foods Using less butter, margarine, oil and mayonnaise Avoiding high-fat gravies, cream sauces and cream-based soups Eat a variety of foods, including: Fruit and vegetables that are raw, steamed or baked Whole grains, breads, cereal, rice and pasta Dairy products, such as low-fat or non-fat milk or yogurt, low-fat cottage cheese and low-fat cheese Protein-rich foods like chicken, turkey, fish, lean meat and legumes, or beans Change your eating habits: Eat three balanced meals a day to help control your hunger Watch portion sizes and eat small servings of a variety of foods Choose low-calorie snacks Eat only when you are hungry and stop when you are satisfied Eat slowly and try not to perform other tasks while eating Find other activities to distract you from food, such as walking, taking up a hobby or being involved in the community Include regular exercise in your daily routine Find a support group, if necessary, for emotional support in your weight loss effort Patient Education: Smoking Cessation Making the commitment to quit smoking is one of the best choices that smokers can make for themselves, but also a difficult one. There are various opportunities for support available. Here is an overview of them. There are various forms of nicotine replacement therapy available to assist with minimizing these symptoms. They are nicotine gum, nicotine patch, nicotine nasal spray, nicotine inhaler, and nicotine lozenge. Which kind of nicotine replacement therapy will best work for you can be discussed with your doctor or nurse to help you understand the pros and cons of each. Non-nicotine replacement therapy is also available. Bupropion (Wellbutrin, Zyban) is a mild anti-depressant that is also effective in helping people to quit smoking. It can be used alone or with nicotine replacement therapy. Varenicline (Chantix) is another medication that helps people who what to quit. This medication is not a form of nicotine replacement therapy, but it helps with the withdrawal symptoms. Studies have shown that the best success rates for people trying to quit include counseling and/or support groups such as the [employer] that is a free, confidential, 16/04, 987-wnn-b-year treatment referral and information service: 6-135-058-HELP (5559) Some helpful hints include: Avoidance. Stay away from smokers and places where you are tempted to smoke. Activities. Exercise or do hobbies that keep your hands busy. Alternatives. Use oral substitutes such as sugarless gum, hard candy, and carrot sticks. Change of habits. For example, if you usually smoke during a coffee break, then go for a walk instead. Deep breathing. When you have the urge to smoke, do a deep breathing exercise and remind yourself why you quit. Delay tactic. If you feel that you are about to light up, delay. Tell yourself you must wait 10 minutes. Often this simple trick will allow you to move beyond the urge Discussion. Call a friend for support. Drink of water. Use as an oral substitute such as water. Many people say the reason they smoke is to deal with stress. Unfortunately, stress is a part of all our lives. When quitting, you will need to find new strategies to deal with stress. There are stress-management classes, and self-help books that can help you discover new ways to reduce and deal with stress. The bottom line is: don't just try to go it alone-reach out for support to help you achieve your goal. documented in this encounter [facility] Work Phone: 01-19-2025 Attending History and physical note H&P reviewed. The patient was examined and there are no changes to the H&P. Source Note - Palak Dia - 01/12/2025 11:00 AM EDT Patient ID: Kitty Stallworth" is a 84 y.o. male. Bladder Catheterization Date/Time: 01/12/2025 11:16 AM Performed by: Palak Dia LPN Authorized by: REUM Farias Procedure Details Procedure: catheter change Catheter insertion: indwelling Catheter type: coud Catheter size: 16 Fr Complexity: complex Number of initial attempts: 1 Urine characteristics: clear and yellow Balloon inflation amount (mL): 10 Leg bag attached: yes Post-Procedure Details Outcome: patient tolerated procedure well with no complications [facility] Work Phone: 01-19-2025 History and physical note H&P reviewed. The patient was examined and there are no changes to the H&P. Source Note - [place] - 01/12/2025 11:00 AM EDT Patient ID: Kitty Stallworth" is a 84 y.o. male. Bladder Catheterization Date/Time: 01/12/2025 11:16 AM Performed by: Palak Dia LPN Authorized by: ERUM Farias Procedure Details Procedure: catheter change Catheter insertion: indwelling Catheter type: coud Catheter size: 16 Fr Complexity: complex Number of initial attempts: 1 Urine characteristics: clear and yellow Balloon inflation amount (mL): 10 Leg bag attached: yes Post-Procedure Details Outcome: patient tolerated procedure well with no complications History Of Present Illness Kitty Stallworth" is a 84 y.o. male with a history of severe aortic stenosis, HTN, DM II, hyperlipidemia, GERD, gout, and CKD stage III presenting for right and left heart catheterization as part of workup for his severe aortic stenosis. Patient previously evaluated due to syncope, bradycardia, and hypotension. Echo showing LVSF is normal at 67%; grade II diastolic dysfunction; moderate to severe aortic valve stenosis. Past Medical History Medical History[1] Surgical History Surgical History[2] Social History He reports that he quit smoking about 36 years ago. His smoking use included cigarettes. He has never been exposed to tobacco smoke. He has never used smokeless tobacco. He reports that he does not drink alcohol and does not use drugs. Family History Family History[3] Allergies Iodine, Pregabalin, and Fewgdrv-fdi-lwo reductase inhibitors Review of Systems A 10-point system review was completed and was negative except as noted in the HPI. Physical Exam General: awake, alert and oriented. No acute distress. Skin: Skin is warm, dry and intact without rashes or lesions. HEENT: normocephalic, atraumatic; conjunctivae are clear without exudates or hemorrhage. Sclera is non-icteric. Eyelids are normal in appearance without swelling or lesions. Hearing intact. Nares are patent bilaterally. Moist mucous membranes. Cardiovascular: heart rate and rhythm are normal. Murmur present Respiratory: bilateral lung sounds clear to auscultations without rales, rhonchi, or wheezes. No accessory muscle use or stridor Musculoskeletal: no deformities Extremities: no edema Neurological: no focal deficits; gait steady Psychiatric: appropriate mood and affect; good judgment and insight Last Recorded Vitals Blood pressure (!) 195/88, pulse (!) 49, temperature 36.1 C (97 F), resp. rate 16, height 1.778 m (5' 10"), weight 107 kg (234 lb 12.6 oz), SpO2 99%. Relevant Results Assessment & Plan Nonrheumatic aortic valve stenosis ERUM Sotelo DNP [1] Past Medical History: Diagnosis Date BPH (benign prostatic hyperplasia) GERD (gastroesophageal reflux disease) Gout Hyperlipidemia Hypertension Indwelling urinary catheter present Neuropathy, peripheral, autonomic, idiopathic 02/21/2023 Type 2 diabetes mellitus [2] Past Surgical History: Procedure Laterality Date MR HEAD ANGIO WO IV CONTRAST 03/28/2023 MR HEAD ANGIO WO IV CONTRAST 03/28/2023 [facility] MRI MR NECK ANGIO WO IV CONTRAST 03/28/2023 MR NECK ANGIO WO IV CONTRAST 03/28/2023 [facility] MRI OTHER SURGICAL HISTORY 09/26/2019 Appendectomy OTHER SURGICAL HISTORY 09/26/2019 Colonoscopy OTHER SURGICAL HISTORY 09/26/2019 Cataract surgery [3] Family History Problem Relation Name Age of Onset Heart attack Mother Cancer Mother Heart disease Father Heart attack Child Brain cancer Child Diabetes type II Other OTHER Breast cancer Other OTHER Cosigned by Nima Fay MD at 01/19/2025 11:58 AM EDT documented in this encounter [facility] Work Phone: 01-19-2025 Nurse procedure note Sedation Plan ASA 3 Mallampati class: II. Risks, benefits, and alternatives discussed with patient. T [facility] Work Phone: 01-19-2025 Surgery Postoperative evaluation and management note 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] Post-procedure diagnosis: Post-op Diagnosis * Nonrheumatic aortic valve stenosis [I35.0] Procedure(s): Left & Right Heart Cath w Angiography & [place] 07410 - TX R & L HRT CATH WINJX HRT ART& L VENTR IMG Procedure Findings: Single vessel coronary artery disease Prox-mid LAD diffuse calcified 80% lesion Prox 1st OM 60% lesion RCA with irregularities Preserved LV systolic function Peak to peak gradient ~20mmHg, consistent with moderate aortic stenosis PWP 25, PA 46/23 (32), RV 51/12 (20), RA 17mmHg; LVeDP 19mmHg; CO 7.5, CI 3.4 S/P successful DFR to prox 1st OM resulting 0.98, deemed to be non-ischemic, therefore we have opted to defer the treatment for this lesion. S/P successful DFR to mid LAD resulting 0.86, deemed to be ischemic, therefore we have opted to proceed with the treatment for this lesion. S/P Successful PCI to prox-mid LAD using 2 WILLIE 3.0/38mm and 3.0/8mm (post-dil 3.5mm NC balloon) guided by IVUS Description of the Procedure: Procedure: Right and Left Heart Catheterization Right Cephalic brachial vein access with 5F sheath using microcatheter under ultrasound guidance. 5F balloon-tip Arrow catheter inserted and advanced to the pulmonary artery. Right heart catheterization and hemodynamic measurements. Cardiac output and cardiac index assessed by Kendell method. Catheter removed. PWP 25, PA 46/23 (32), RV 51/12 (20), RA 17mmHg; LVeDP 19mmHg CO 7.5, CI 3.4 R radial artery access with 6F sheath. LV and Ao hemodynamic measurements. S/P LHC that showed single vessel obstructive coronary artery disease. Prox-mid LAD diffuse calcified 80% lesion Prox 1st OM 60% lesion RCA with irregularities Preserved LV systolic function Peak to peak gradient ~20mmHg, consistent with moderate aortic stenosis Due to severe tortuosity, we have opted to switch to femoral access. R femoral artery access with 6F sheath above the bifurcation using micropuncture under ultrasound guidance. Hemodynamic measurements. S/P Left heart catheterization (LHC) showing significant coronary artery disease with severe obstruction in the prox-mid LAD, heavily calcified diffuse 80% lesion. Catheter switched to 6F XB 3.5. Heparinization 100ui/Kg. ACT > 250s. Due to intermediate coronary lesions, we opted to perform FFR (Fractional Flow [place]) study through DFR (Diastolic Hyperemia-Free Ratio) to assess ischemic features for the lesions. S/P successful DFR to prox 1st OM resulting 0.98, deemed to be non-ischemic, therefore we have opted to defer the treatment for this lesion. S/P successful DFR to prox-mid LAD resulting 0.86, deemed to be ischemic, therefore we have opted to proceed with the treatment for this lesion. S/P successful percutaneous coronary intervention to proximal-mid LAD using two drug-eluting stents (WILLIE) 3.0/38mm and 3.0/8mm (post-dil 3.5mm NC balloon) guided by intra-vascular ultrasound (IVUS). Patient remained stable during the entire procedure. No complications. Hemostasis with Perclose x1 and manual pressure. Plan: Patient loaded with ASA 325mg and Plavix 600mg. Should be discharged home keeping ASA 81mg daily and Plavix 75mg daily. Compared to the pre-procedural EKG, post-procedural EKG with no new abnormalities and no signs of acute coronary syndrome. Keep hydration 100mL/h for at least 3 hours, ideally 6 hours. Patient may be discharged home after bed rest for 3 hours. Constant check for access site bleeding. After the patient resumes walking, observe for 15 minutes and check for signs of bleeding. We have provided detailed recommendations for the adequate care of the access site, especially with instructions for exercise and in case of bleeding. Patient counseled to keep clean dressing and avoid bathing for the next 24 hours. Avoid extenuating exercises for 7 days. Avoid bath tube and swimming pool for 7 days. Patient advised to go to the Emergency Department in case of bleeding. Case has been discussed with Heart Surgery Team - Dr Rodrigues, who due to the patient's frailty, agreed to proceed with PCI to prox-mid LAD, and afterwards CTA for evaluation of TAVR procedure in the future. Cardiac rehab. Cardiology follow up. Would suggest to keep conservative treatment and guideline-directed medical therapy (GDMT) for the remaining lesions. Would suggest evaluation by the Structural Heart team - Dr. Rodrigues. Complications: No Stents/Implants: Implants Stent Stent, Rojelio Lynn Willie, 3.00 X 38rx - [id number] - Implanted Inventory item: STENT, ROJELIO FRONTIER WILLIE, 3.00 X 38RX Model/Cat number: [id number] Canvas Baster: [employer] Lot number: [id number] Device identifier: [id number] GUDID Information Request status Successful Brand name: Liberty Lynn Version/Model: [id number] Company name: [employer], [employer]. MRI safety info as of 01/19/25: MR Conditional Contains dry or latex rubber: No GMDN P.T. name: Drug-eluting coronary artery stent, lph-kiardsegyuogp-bdugymd-coated As of 01/19/2025 Status: Implanted Stent, Rojelio Lynn Willie, 3.00 X 08rx - [id number] - Implanted Inventory item: STENT, ROJELIO FRONTIER WILLIE, 3.00 X 08RX Model/Cat number: [id number] Canvas Baster: [employer] Lot number: [id number] Device identifier: [id number] GUDID Information Request status Successful Brand name: Rojelio Lynn Version/Model: [id number] Company name: [employer], [employer]. MRI safety info as of 01/19/25: MR Conditional Contains dry or latex rubber: No GMDN P.T. name: Drug-eluting coronary artery stent, spf-ptiaxezfpdnhj-qscaobv-coated As of 01/19/2025 Status: Implanted Anticoagulation/Antiplatelet Plan: Should be discharged home keeping ASA 81mg daily and Plavix 75mg daily. Estimated Blood Loss: 5 mL Anesthesia: Moderate Sedation Anesthesia Staff: No anesthesia staff entered. Any Specimen(s) Removed: Order Name Source Comment Collection Info Order Time BLOOD GAS MIXED VENOUS FULL PANEL Blood, Mixed Venous Collected By: Jose Alfredo Pierre RN 01/19/2025 8:39 AM Release result to [employer] Immediate Disposition: Home Electronically signed by: Nima Fay MD, 01/19/2025 10:17 AM [facility] Work Phone: 01-19-2025 History and physical note History Of Present Illness Kitty Stallworth" is a 84 y.o. male with a history of severe aortic stenosis, HTN, DM II, hyperlipidemia, GERD, gout, and CKD stage III presenting for right and left heart catheterization as part of workup for his severe aortic stenosis. Patient previously evaluated due to syncope, bradycardia, and hypotension. Echo showing LVSF is normal at 67%; grade II diastolic dysfunction; moderate to severe aortic valve stenosis. Past Medical History Medical History[1] Surgical History Surgical History[2] Social History He reports that he quit smoking about 36 years ago. His smoking use included cigarettes. He has never been exposed to tobacco smoke. He has never used smokeless tobacco. He reports that he does not drink alcohol and does not use drugs. Family History Family History[3] Allergies Iodine, Pregabalin, and Ztqbtcn-krz-xpu reductase inhibitors Review of Systems A 10-point system review was completed and was negative except as noted in the HPI. Physical Exam General: awake, alert and oriented. No acute distress. Skin: Skin is warm, dry and intact without rashes or lesions. HEENT: normocephalic, atraumatic; conjunctivae are clear without exudates or hemorrhage. Sclera is non-icteric. Eyelids are normal in appearance without swelling or lesions. Hearing intact. Nares are patent bilaterally. Moist mucous membranes. Cardiovascular: heart rate and rhythm are normal. Murmur present Respiratory: bilateral lung sounds clear to auscultations without rales, rhonchi, or wheezes. No accessory muscle use or stridor Musculoskeletal: no deformities Extremities: no edema Neurological: no focal deficits; gait steady Psychiatric: appropriate mood and affect; good judgment and insight Last Recorded Vitals Blood pressure (!) 195/88, pulse (!) 49, temperature 36.1 C (97 F), resp. rate 16, height 1.778 m (5' 10"), weight 107 kg (234 lb 12.6 oz), SpO2 99%. Relevant Results Assessment & Plan Nonrheumatic aortic valve stenosis ERUM Sotelo DNP [1] Past Medical History: Diagnosis Date BPH (benign prostatic hyperplasia) GERD (gastroesophageal reflux disease) Gout Hyperlipidemia Hypertension Indwelling urinary catheter present Neuropathy, peripheral, autonomic, idiopathic 02/21/2023 Type 2 diabetes mellitus [2] Past Surgical History: Procedure Laterality Date MR HEAD ANGIO WO IV CONTRAST 03/28/2023 MR HEAD ANGIO WO IV CONTRAST 03/28/2023 [facility] MRI MR NECK ANGIO WO IV CONTRAST 03/28/2023 MR NECK ANGIO WO IV CONTRAST 03/28/2023 [facility] MRI OTHER SURGICAL HISTORY 09/26/2019 Appendectomy OTHER SURGICAL HISTORY 09/26/2019 Colonoscopy OTHER SURGICAL HISTORY 09/26/2019 Cataract surgery [3] Family History Problem Relation Name Age of Onset Heart attack Mother Cancer Mother Heart disease Father Heart attack Child Brain cancer Child Diabetes type II Other OTHER Breast cancer Other OTHER Cosigned by Nima Fay MD at 01/19/2025 11:58 AM EDT [facility] Work Phone: 12-08-2024 History of Present illness Narrative Chief Complaint Patient presents with New Patient Visit Edema bilateral legs, Aortic valve stenosis, HTN. Patient states that he has been experiencing shortness of breath for about 3 months HPI: I was requested by Dr. Almanzar to evaluate this patient in consultation for cardiac assessment. Mr. Kitty Vergara is a 84 y.o. year old former smoker diabetic male patient with prior medical history significant for moderate to severe aortic stenosis, hypertension, diabetes, hyperlipidemia, GERD, neuropathy, Gout, CKD stage III, edema R leg, indwelling catheter. He was brought to ED [facility] on 10/18/2024 after losing his consciouness. He did not have the strength to get himself back up. Family states this has been a gradual decline over time. He endorses shortness of breath on exertion. Denied chest pain, palpitations, leg edema, lightheadedness, headaches, fever, chills, orthopnea or paroxysmal nocturnal dyspnea. EMS reported bradycardia, hypotension and hypoxia. Treated with IV fluids and nasal cannula oxygen. He improved after IV hydration, with recovery of his heart rate to 60bpm and improvement in his BP. EKG showed bradycardic sinus rhythm with 1st degree AV block and no signs of acute ischemic changes. Trop 11. BNP 321. Crea 3.1. He has been admitted for clinical compensation. He was discharged uneventfully. Echocardiogram showed moderate to severe aortic stenosis. Past Medical History Past Medical History: Diagnosis Date BPH (benign prostatic hyperplasia) GERD (gastroesophageal reflux disease) Gout Hyperlipidemia Hypertension Indwelling urinary catheter present Neuropathy, peripheral, autonomic, idiopathic 02/21/2023 Type 2 diabetes mellitus Past Surgical History Past Surgical History: Procedure Laterality Date MR HEAD ANGIO WO IV CONTRAST 03/28/2023 MR HEAD ANGIO WO IV CONTRAST 03/28/2023 [facility] MRI MR NECK ANGIO WO IV CONTRAST 03/28/2023 MR NECK ANGIO WO IV CONTRAST 03/28/2023 [facility] MRI OTHER SURGICAL HISTORY 09/26/2019 Appendectomy OTHER SURGICAL HISTORY 09/26/2019 Colonoscopy OTHER SURGICAL HISTORY 09/26/2019 Cataract surgery Past Family History Family History Problem Relation Name Age of Onset Heart attack Mother Cancer Mother Heart disease Father Heart attack Child Brain cancer Child Diabetes type II Other OTHER Breast cancer Other OTHER Allergy History Allergies Allergen Reactions Pregabalin Unknown Btlawbh-Xpc-Yzo Reductase Inhibitors Unknown Past Social History Social History Socioeconomic History Marital status: Spouse name: Adriel Tobacco Use Smoking status: Former Current packs/day: 0.00 Types: Cigarettes Quit date: 1988 Years since quittin.2 Passive exposure: Never Smokeless tobacco: Never Vaping Use Vaping status: Never Used Substance and Sexual Activity Alcohol use: Never Drug use: Never Sexual activity: Defer Social Drivers of Health Financial Resource Strain: Low Risk (10/20/2024) Overall Financial Resource Strain (CARDIA) Difficulty of Paying Living Expenses: Not hard at all Food Insecurity: No Food Insecurity (10/19/2024) Hunger Vital Sign Worried About Running Out of Food in the Last Year: Never true Ran Out of Food in the Last Year: Never true Transportation Needs: Unmet Transportation Needs (10/22/2024) OASIS A1250: Transportation Lack of Transportation (Medical): No Lack of Transportation (Non-Medical): Yes Patient Unable or Declines to Respond: No Social Connections: Feeling Socially Integrated (10/22/2024) OASIS D0700: Social Isolation Frequency of experiencing loneliness or isolation: Rarely Intimate Partner Violence: Not At Risk (10/19/2024) Humiliation, Afraid, Rape, and Kick questionnaire Fear of Current or Ex-Partner: No Emotionally Abused: No Physically Abused: No Sexually Abused: No Housing Stability: Low Risk (10/20/2024) Housing Stability Vital Sign Unable to Pay for Housing in the Last Year: No Number of Times Moved in the Last Year: 0 Homeless in the Last Year: No Social History Tobacco Use Smoking Status Former Current packs/day: 0.00 Types: Cigarettes Quit date: 1989 Years since quittin.2 Passive exposure: Never Smokeless Tobacco Never Review of Systems: A total of 12 systems have been reviewed and are negative except for the aforementioned findings described in HPI. Objective Data: Last Recorded Vitals: Vitals: 12/08/24 1401 BP: 132/68 Pulse: 61 SpO2: 96% Weight: 102 kg (225 lb 8 oz) Height: 1.778 m (5' 10") Last Labs: CBC - 10/20/2024: 5:09 AM 9.2 9.1 218 27.7 CMP - 10/20/2024: 5:09 AM 8.4 6.9 12 --- 0.5 3.2 3.2 7 100 PTT - No results in last year. _ _ _ TROPHS Date/Time Value Ref Range Status 10/18/2024 03:57 PM 11 0 - 20 ng/L Final 05/29/2024 12:31 PM 10 0 - 20 ng/L Final 03/28/2023 11:50 AM 12 0 - 20 ng/L Final Comment: . Less than 99th percentile of normal range cutoff- Female and children under 18 years old <14 ng/L; Male <21 ng/L: Negative Repeat testing should be performed if clinically indicated. . Female and children under 18 years old 14-50 ng/L; Male 21-50 ng/L: Consistent with possible cardiac damage and possible increased clinical risk. Serial measurements may help to assess extent of myocardial damage. . >50 ng/L: Consistent with cardiac damage, increased clinical risk and myocardial infarction. Serial measurements may help assess extent of myocardial damage. . NOTE: Children less than 1 year old may have higher baseline troponin levels and results should be interpreted in conjunction with the overall clinical context. . NOTE: Troponin I testing is performed using a different testing methodology at [facility] than at other [facility]. Direct result comparisons should only be made within the same method. 03/28/2023 10:22 AM 14 0 - 20 ng/L Final Comment: . Less than 99th percentile of normal range cutoff- Female and children under 18 years old <14 ng/L; Male <21 ng/L: Negative Repeat testing should be performed if clinically indicated. . Female and children under 18 years old 14-50 ng/L; Male 21-50 ng/L: Consistent with possible cardiac damage and possible increased clinical risk. Serial measurements may help to assess extent of myocardial damage. . >50 ng/L: Consistent with cardiac damage, increased clinical risk and myocardial infarction. Serial measurements may help assess extent of myocardial damage. . NOTE: Children less than 1 year old may have higher baseline troponin levels and results should be interpreted in conjunction with the overall clinical context. . NOTE: Troponin I testing is performed using a different testing methodology at [facility] than at other [facility]. Direct result comparisons should only be made within the same method. BNP Date/Time Value Ref Range Status 10/18/2024 03:57 PM 321 0 - 99 pg/mL Final HGBA1C Date/Time Value Ref Range Status 09/05/2024 07:38 AM 7.2 See comment % Final 05/08/2024 07:33 AM 7.3 see below % Final LDLCALC Date/Time Value Ref Range Status 09/26/2024 07:54 AM 42 <=99 mg/dL Final Comment: Near Borderline AGE Desirable Optimal High High Very High 0-19 Y 0 - 109 --- 110-129 >/= 130 ---- 20-24 Y 0 - 119 --- 120-159 >/= 160 ---- >24 Y 0 - 99 100-129 130-159 160-189 >/=190 VLDL Date/Time Value Ref Range Status 09/26/2024 07:54 AM 60 0 - 40 mg/dL Final 03/29/2022 07:54 AM SEE COMMENT 0 - 40 mg/dL Final Comment: Unable to calculate VLDL. 03/29/2020 08:37 AM SEE COMMENT 0 - 40 mg/dL Final Comment: Unable to calculate VLDL. Patient Medications: Outpatient Encounter Medications as of 12/08/2024 Medication Sig Dispense Refill allopurinol (Zyloprim) 300 mg tablet Take 1 tablet (300 mg) by mouth once daily. 90 tablet 3 blood sugar diagnostic (Advanced Gluc Meter Test Strip) strip 1 strip once daily. 100 strip 3 carvedilol (Coreg) 6.25 mg tablet Take 1 tablet (6.25 mg) by mouth 2 times daily (morning and late afternoon). 60 tablet 11 cholecalciferol (Vitamin D-3) 25 MCG (1000 UT) capsule Take 1 capsule (25 mcg) by mouth once daily. empagliflozin (Jardiance) 10 mg Take 1 tablet (10 mg) by mouth once daily. 30 tablet 5 ezetimibe (Zetia) 10 mg tablet Take 1 tablet (10 mg) by mouth once daily. 30 tablet 11 finasteride (Proscar) 5 mg tablet Take 1 tablet (5 mg) by mouth once daily. Do not crush, chew, or split. 30 tablet 11 gabapentin (Neurontin) 300 mg capsule Take 1 capsule (300 mg) by mouth 2 times a day. glucosamine/chondr hogue A sod (OSTEO BI-FLEX ORAL) Take 1 capsule by mouth once daily. HYDROcodone-acetaminophen (Tensed) 5-325 mg tablet Take 1 tablet by mouth every 6 hours if needed for severe pain (7 - 10). 20 tablet 0 insulin glargine-lixisenatide (Soliqua 100/33) 100 unit-33 mcg/mL insulin pen Inject 30 Units under the skin once daily. 15 mL 11 lansoprazole (PREVACID ORAL) Take 15 mg by mouth once daily. pen needle, diabetic 31 gauge x 5/16" needle 1 each once daily. 100 each 3 phenazopyridine (Pyridium) 200 mg tablet Take 1 tablet (200 mg) by mouth 3 times a day as needed for bladder spasms. 30 tablet 0 tamsulosin (Flomax) 0.4 mg 24 hr capsule Take 1 capsule (0.4 mg) by mouth once daily. 90 capsule 3 sulfamethoxazole-trimethoprim (Bactrim DS) 800-160 mg tablet Take 1 tablet by mouth 2 times a day for 8 days. Start 5d before surgery and continue until catheter is removed (Patient not taking: Reported on 12/08/2024) 16 tablet 0 No facility-administered encounter medications on file as of 12/08/2024. Physical Exam: General: alert and in no acute distress HEENT: NC/AT; EOMI; PERRLA, external ear is normal Neck: supple; trachea midline; no masses; no JVD Chest: clear breath sounds bilaterally; no wheezing Cardio: regular rhythm, S1S2 normal, systolic murmur 3+/6+ RUSB Abdomen: Soft, non-tender, non-distension, no organomegaly Extremities: Edema 1+/3+ R leg Past Cardiology Results (Last 3 Years): EKG: ECG 12 lead ECG 12 lead 05/29/2024 Echo: Echo Results: Transthoracic Echo (TTE) Complete With Contrast 10/20/2024 [place] [address] [phone], TRANSTHORACIC ECHOCARDIOGRAM REPORT Patient Name: KITTY Peña JAI Reading Physician: [id number] Santiago Marquez MD Study Date: 10/20/2024 Ordering Provider: [id number] ZANA MATHEWS MRN/PID: [id number] Fellow: Nurse: Ayaka Hernandez RN Date of /Age: 1007/06/1940 Manager Garden: Mary galeano RVT, RCS Gender Assigned at M Additional Staff: : Height: 177.80 cm Admit Date: 10/18/2024 Weight: 104.33 kg Admission Status: Inpatient - Routine BSA / BMI: 2.22 m2 / 33.00 Department Location: [address] kg/m2 Blood Pressure: 160 /86 mmHg Study Type: TRANSTHORACIC ECHO (TTE) COMPLETE Diagnosis/ICD: Bradycardia, unspecified-R00.1; Unspecified atrial fibrillation-I48.91 Indication: Francisco,AFib CPT Codes: Echo Complete w Full Doppler-08602 Patient History: Pertinent History: Previous echo 03-28-23. Study Detail: The following Echo studies were performed: 2D, M-Mode, Doppler and color flow. Definity used as a contrast agent for endocardial border definition. A bubble study was not performed. The patient was awake. PHYSICIAN INTERPRETATION: Left Ventricle: Left ventricular ejection fraction is normal, calculated by Villalobos's biplane at 67%. The patient is in atrial fibrillation which may influence the estimate of left ventricular function and transvalvular flows. There are no regional wall motion abnormalities. The left ventricular cavity size is normal. There is mild increased septal and mildly increased posterior left ventricular wall thickness. There is left ventricular concentric remodeling. Spectral Doppler shows a Grade II (pseudonormal pattern) of left ventricular diastolic filling with an elevated left atrial pressure. Left Atrium: The left atrium is normal in size. A bubble study using agitated saline was not performed. Right Ventricle: The right ventricle is normal in size. There is normal right ventricular global systolic function. Right Atrium: The right atrium is normal in size. Aortic Valve: The aortic valve is trileaflet. There is evidence of moderate to severe aortic valve stenosis. The aortic valve dimensionless index is 0.23. There is no evidence of aortic valve regurgitation. The peak instantaneous gradient of the aortic valve is 73 mmHg. The mean gradient of the aortic valve is 44 mmHg. Mitral Valve: The mitral valve is normal in structure. There is mild mitral valve regurgitation. Tricuspid Valve: The tricuspid valve is structurally normal. There is trace tricuspid regurgitation. Pulmonic Valve: The pulmonic valve is not well visualized. There is no indication of pulmonic valve regurgitation. Pericardium: No pericardial effusion noted. Aorta: The aortic root is normal. CONCLUSIONS: 1. Poorly visualized anatomical structures due to suboptimal image quality. 2. Left ventricular ejection fraction is normal, calculated by Villalobos's biplane at 67%. 3. Spectral Doppler shows a Grade II (pseudonormal pattern) of left ventricular diastolic filling with an elevated left atrial pressure. 4. There is normal right ventricular global systolic function. 5. Moderate to severe aortic valve stenosis. 6. Compared to prior TTE dated 03/28/2023 - aortic stenosis has progressed and now appears to be moderate-severe. 7. The patient is in atrial fibrillation which may influence the estimate of left ventricular function and transvalvular flows. QUANTITATIVE DATA SUMMARY: 2D MEASUREMENTS: Normal Ranges: Ao Root d: 3.10 cm (2.0-3.7cm) LAs: 3.70 cm (2.7-4.0cm) IVSd: 1.35 cm (0.6-1.1cm) LVPWd: 1.38 cm (0.6-1.1cm) LVIDd: 4.65 cm (3.9-5.9cm) LVIDs: 3.06 cm LV Mass Index: 113.5 g/m2 LV % FS 34.2 % LA VOLUME: Normal Ranges: LA Vol A4C: 31.2 ml (22+/-6mL/m2) LA Vol A2C: 54.6 ml LA Vol BP: 43.6 ml LA Vol Index A4C: 14.1ml/m2 LA Vol Index A2C: 24.7 ml/m2 LA Vol Index BP: 19.7 ml/m2 LA Area A4C: 14.7 cm2 LA Area A2C: 18.4 cm2 LA Major Goltry A4C: 5.9 cm LA Major Goltry A2C: 5.3 cm LA Volume Index: 24.0 ml/m2 LA Vol A4C: 31.4 ml LA Vol A2C: 53.3 ml LA Vol Index BSA: 19.1 ml/m2 M-MODE MEASUREMENTS: Normal Ranges: AoV Exc: 0.90 cm (1.5-2.5cm) AORTA MEASUREMENTS: Normal Ranges: AoV Exc: 0.90 cm (1.5-2.5cm) LV SYSTOLIC FUNCTION BY 2D PLANIMETRY (MOD): Normal Ranges: EF-A4C View: 63 % (>=55%) EF-A2C View: 71 % EF-Biplane: 67 % LV EF Reported: 67 % LV DIASTOLIC FUNCTION: Normal Ranges: MV Peak E: 1.26 m/s (0.7-1.2 m/s) MV Peak A: 1.18 m/s (0.42-0.7 m/s) E/A Ratio: 1.07 (1.0-2.2) MV e' 0.089 m/s (>8.0) MV lateral e' 0.07 m/s MV medial e' 0.11 m/s E/e' Ratio: 14.21 (<8.0) MITRAL VALVE: Normal Ranges: MV DT: 289 msec (150-240msec) MITRAL INSUFFICIENCY: Normal Ranges: MR Vmax: 351.00 cm/s AORTIC VALVE: Normal Ranges: AoV Vmax: 4.26 m/s (<=1.7m/s) AoV Peak P.6 mmHg (<20mmHg) AoV Mean P.0 mmHg (1.7-11.5mmHg) LVOT Max Clyde: 1.10 m/s (<=1.1m/s) AoV VTI: 104.00 cm (18-25cm) LVOT VTI: 23.70 cm LVOT Diameter: 2.20 cm (1.8-2.4cm) AoV Area, VTI: 0.87 cm2 (2.5-5.5cm2) AoV Area,Vmax: 0.98 cm2 (2.5-4.5cm2) AoV Dimensionless Index: 0.23 RIGHT VENTRICLE: RV Basal 3.65 cm RV Mid 2.11 cm RV Major 6.9 cm TAPSE: 20.9 mm TRICUSPID VALVE/RVSP: Normal Ranges: Peak TR Velocity: 3.26 m/s RV Syst Pressure: 46 mmHg (< 30mmHg) PULMONIC VALVE: Normal Ranges: PV Accel Time: 106 msec (>120ms) PV Max Clyde: 2.3 m/s (0.6-0.9m/s) PV Max P.3 mmHg [id number] Santiago Marquez MD Electronically signed on 10/20/2024 at 9:11:55 AM Final Cath: No results found for this or any previous visit from the past 1095 days. CV NCDR CATHPCI V5 COLLECTION FORM Stress Test: No results found for this or any previous visit from the past 1095 days. Cardiac Imaging: No results found for this or any previous visit from the past 1095 days. Assessment/Plan Mr. Kitty Vergara is a 84 y.o. year old former smoker diabetic male patient with prior medical history significant for moderate to severe aortic stenosis, hypertension, diabetes, hyperlipidemia, GERD, neuropathy, Gout, CKD stage III, edema R leg. He was brought to ED [facility] on 10/18/2024 after losing his consciouness. He did not have the strength to get himself back up. Family states this has been a gradual decline over time. He endorses shortness of breath on exertion. Denied chest pain, palpitations, leg edema, lightheadedness, headaches, fever, chills, orthopnea or paroxysmal nocturnal dyspnea. EMS reported bradycardia, hypotension and hypoxia. Treated with IV fluids and nasal cannula oxygen. He improved after IV hydration, with recovery of his heart rate to 60bpm and improvement in his BP. EKG showed bradycardic sinus rhythm with 1st degree AV block and no signs of acute ischemic changes. Trop 11. BNP 321. Crea 3.1. He has been admitted for clinical compensation. He was discharged uneventfully. Echocardiogram showed moderate to severe aortic stenosis. Assessment # Moderate to severe aortic stenosis - Lost his consciousness, bradycardia and hypotension in the setting of dehydration. - Reports shortness of breath on exertion. - Trop 11. - BNP 321. - Echo (09/2024): 1. Poorly visualized anatomical structures due to suboptimal image quality. 2. Left ventricular ejection fraction is normal, calculated by Villalobos's biplane at 67%. 3. Spectral Doppler shows a Grade II (pseudonormal pattern) of left ventricular diastolic filling with an elevated left atrial pressure. 4. There is normal right ventricular global systolic function. 5. Moderate to severe aortic valve stenosis. 6. Compared to prior TTE dated 03/28/2023 - aortic stenosis has progressed and now appears to be moderate-severe. 7. The patient is in atrial fibrillation which may influence the estimate of left ventricular function and transvalvular flows. - New EKG showing sinus rhythm. - Therefore we will request Right/Left Heart Catheterization and referral to Structural Heart Team assessment for aortic stenosis. - The natural history of atherosclerosis was discussed with the patient. The treatment options including GDMT, percutaneous intervention or surgical intervention were discussed with the patient. All the risks, benefits and alternative procedures were discussed. Complications of the procedure were also discussed, including but not limited to risk of bleeding, stroke, infarct, infection, urgent cardiac surgery or . All questions were answered and the informed consent was obtained. After aforementioned testing and consultation, Left Heart Catheterization with potential Percutaneous Coronary Intervention would be a reasonable approach if the patient is candidate. - Will start him on ASA 81mg daily. - Patient intolerant to statins. - Follow up after tests. # CKD - Crea 3.1 --> 2.66 --> 2.29 - Indwelling catheter. May need Urological procedure. - Would suggest follow up with Nephrology / Urology team. # Edema R leg - No signs of fracture in X ray - Follow up with Orthopedic team. # Hypertension - Low blood pressure; it has improved after hydration. - Would suggest to hold medications at this point - Nifedipine, and restart it once the patient is more stable. # Diabetes - Controlled by PCP. - Counseled on healthy diet and regular exercises. - Discussed need for weight loss and the benefits. - Keep current medications including Empaglifozin. # Hyperlipidemia - Controlled by PCP. - Keep home medication with Ezetimibe. - Counseled on healthy diet and regular exercise. # Gout - Keep Allopurinol. We have discussed the most common side effects of the prescribed medications, indications, drug interactions, risks, complications, and alternatives of medications/therapeutics were explained and discussed. The patient has been requested to monitor closely for any untoward side effects or complications of medications. The patient has been strongly advised to be compliant with the recommendations, all the questions and concerns have been addressed. The patient has been also instructed to call, to return sooner or to go to the emergency department if symptoms persist or get worsen. The patient voiced understanding and denies any further questions at this time. This note was transcribed using the [employer] Dictation system. There may be grammatical, punctuation, or verbiage errors that occur with voice recognition programs. Counseling greater than 50% of visit regarding all cardiac issues. Thank you, Dr. Almanzar, for allowing me to participate in the care of this patient. Please do not hesitate to contact me with any further questions or concerns. Nima Fay MD Cardiology documented in this encounter [facility] Work Phone: 12-08-2024 Evaluation + Plan note Associated Problem(s): Chronic kidney disease (CKD), stage IV (severe) (Multi) [facility] Work Phone: 12-08-2024 Evaluation + Plan note Associated Problem(s): Type 2 diabetes mellitus with chronic kidney disease, with long-term current use of insulin (Multi) [facility] Work Phone: 12-08-2024 Evaluation + Plan note Associated Problem(s): Edema of both legs [facility] Work Phone: 12-08-2024 Evaluation + Plan note Associated Problem(s): Hypertension [facility] Work Phone: 12-08-2024 History of Present illness Narrative Subjective Reason for Visit: Kitty Vergara is an 84 y.o. male here for a Medicare Wellness visit. Past Medical, Surgical, and Family History reviewed and updated in chart. Reviewed all medications by prescribing practitioner or clinical pharmacist (such as prescriptions, OTCs, herbal therapies and supplements) and documented in the medical record. HPI Blood pressure is a little bit better, but his weight down 11 pounds starting the water pill. Overall he looks better, and definitely less swollen. Separately still having a lot of troubles with urination and needs to get a procedure done with that. Is causing him considerable discomfort. Also he does not feel like his shortness of breath is that much better, but his lungs do sound more clear. Lungs definitely sound more clear today less edema in both legs. See cardiology today worry about heart failure from the valve. Stay on Bumex once a day. Needs a BMP and a magnesium level. Will hold those labs for now and see if cardiology wants labs of their own. Cancel the December office visit keep February. Needs to workup with cardiology and urology Blood sugar levels are doing okay either going up a little bit more because he is not following his diet. The numbers are reasonable for now no changes Patient Care Team: Daniel Almanzar MD as PCP - General Daniel Almanzar MD as PCP - [employer] PCP Rose Mary Matos APRN-RICARDO as Referring Physician (Hospitalist) Daniel Almanzar MD as Primary Care Provider (Family Medicine) Review of Systems Constitutional: Positive for fatigue. Respiratory: Positive for shortness of breath. Negative for cough. Cardiovascular: Negative for chest pain and palpitations. Gastrointestinal: Negative for nausea. Skin: Negative for rash. Neurological: Positive for weakness. Objective Vitals: BP 120/60 Pulse 62 Ht 1.791 m (5' 10.5") Wt 102 kg (224 lb) SpO2 97% BMI 31.69 kg/m Physical Exam Constitutional: Appearance: Normal appearance. HENT: Head: Normocephalic and atraumatic. Cardiovascular: Rate and Rhythm: Normal rate and regular rhythm. Heart sounds: Normal heart sounds. Pulmonary: Effort: Pulmonary effort is normal. Breath sounds: Normal breath sounds. Skin: General: Skin is warm and dry. Neurological: General: No focal deficit present. Mental Status: He is alert and oriented to person, place, and time. Psychiatric: Mood and Affect: Mood normal. Behavior: Behavior normal. Thought Content: Thought content normal. Judgment: Judgment normal. Assessment & Plan Routine general medical examination at health care facility Orders: 1 Year Follow Up In Primary Care - Wellness Exam; Future Chronic kidney disease (CKD), stage IV (severe) (Multi) Type 2 diabetes mellitus with stage 4 chronic kidney disease, with long-term current use of insulin (Multi) Edema of both legs Primary hypertension Patient was identified as a fall risk. Risk prevention instructions provided. documented in this encounter [facility] Work Phone: 12-08-2024 Instructions Daniel Almanzar MD - 12/08/2024 10:40 AM EDT Ways to Help Prevent Falls at Home Quick Tips ? Ask for help if you need it. Most people want to help! ? Get up slowly after sitting or laying down ? Wear a medical alert device or keep cell phone in your pocket ? Use night lights, especially areas near a bathroom ? Keep the items you use often within reach on a small stool or end table ? Use an assistive device such as walker or cane, as directed by provider/physical therapy ? Use a non-slip mat and grab bars in your bathroom. Look for home health sections for best options Other Areas to Focus On ? Exercise and nutrition: Regular exercise or taking a falls prevention class are great ways improve strength and balance. Don t forget to stay hydrated and bring a snack! ? Medicine side effects: Some medicines can make you sleepy or dizzy, which could cause a fall. Ask your healthcare provider about the side effects your medicines could cause. Be sure to let them know if you take any vitamins or supplements as well. ? Tripping hazards: Remove items you could trip on, such as loose mats, rugs, cords, and clutter. Wear closed toe shoes with rubber soles. ? Health and wellness: Get regular checkups with your healthcare provider, plus routine vision and hearing screenings. Talk with your healthcare provider about: o Your medicines and the possible side effects - bring them in a bag if that is easier! o Problems with balance or feeling dizzy o Ways to promote bone health, such as Vitamin D and calcium supplements o Questions or concerns about falling *Ask your healthcare team if you have questions [facility]2021 documented in this encounter [facility] Work Phone: 12-08-2024 Miscellaneous Notes Associated Problem(s): Chronic kidney disease (CKD), stage IV (severe) (Multi) Associated Problem(s): Type 2 diabetes mellitus with chronic kidney disease, with long-term current use of insulin (Multi) Associated Problem(s): Edema of both legs Associated Problem(s): Hypertension documented in this encounter [facility] Work Phone: 12-03-2024 History of Present illness Narrative HPI 84 y.o. male being seen with the following problem list: Problem list: Urinary retention - de oliveira cath since 2 months, from ED in [place]. On flomax and proscar Pt follows with Dr Lucia. Underwent ureteroscopy, cysto with retrograde pyelogram and bladder lesion ablation 10/28/24. Cysto showed severe bladder trabeculation, no mass. Prostate enlargement. DOMENICO from 09/23/24 - prostate approx 88g, distended bladder, no hydro, indeterminate bladder lesion Having lots of discomfort with catheter. 12/03/24 - Urinary retention, currently with de oliveira cath. Miserable, would like to be cath free as soon as possible. Not on any blood thinners. Lab Results Component Value Date PSA 3.08 11/10/2022 Current Medications: Current Outpatient Medications Medication Sig Dispense Refill allopurinol (Zyloprim) 300 mg tablet Take 1 tablet (300 mg) by mouth once daily. 90 tablet 3 blood sugar diagnostic (Advanced Gluc Meter Test Strip) strip 1 strip once daily. 100 strip 3 carvedilol (Coreg) 6.25 mg tablet Take 1 tablet (6.25 mg) by mouth 2 times daily (morning and late afternoon). 60 tablet 11 cholecalciferol (Vitamin D-3) 25 MCG (1000 UT) capsule Take 1 capsule (25 mcg) by mouth once daily. empagliflozin (Jardiance) 10 mg Take 1 tablet (10 mg) by mouth once daily. 30 tablet 5 ezetimibe (Zetia) 10 mg tablet Take 1 tablet (10 mg) by mouth once daily. 30 tablet 11 finasteride (Proscar) 5 mg tablet Take 1 tablet (5 mg) by mouth once daily. Do not crush, chew, or split. 30 tablet 11 gabapentin (Neurontin) 300 mg capsule Take 1 capsule (300 mg) by mouth 2 times a day. glucosamine/chondr hogue A sod (OSTEO BI-FLEX ORAL) Take 1 capsule by mouth once daily. HYDROcodone-acetaminophen (Tensed) 5-325 mg tablet Take 1 tablet by mouth every 6 hours if needed for severe pain (7 - 10). 20 tablet 0 insulin glargine-lixisenatide (Soliqua 100/33) 100 unit-33 mcg/mL insulin pen Inject 30 Units under the skin once daily. 15 mL 11 lansoprazole (PREVACID ORAL) Take 15 mg by mouth once daily. pen needle, diabetic 31 gauge x 5/16" needle 1 each once daily. 100 each 3 phenazopyridine (Pyridium) 200 mg tablet Take 1 tablet (200 mg) by mouth 3 times a day as needed for bladder spasms. (Patient not taking: Reported on 11/24/2024) 30 tablet 0 tamsulosin (Flomax) 0.4 mg 24 hr capsule Take 1 capsule (0.4 mg) by mouth once daily. 90 capsule 3 No current facility-administered medications for this visit. Active Problems: Alejandro Vergara is a 84 y.o. male with the following Problems and Medications. 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 90 tablet 3 blood sugar diagnostic (Advanced Gluc Meter Test Strip) strip 1 strip once daily. 100 strip 3 carvedilol (Coreg) 6.25 mg tablet Take 1 tablet (6.25 mg) by mouth 2 times daily (morning and late afternoon). 60 tablet 11 cholecalciferol (Vitamin D-3) 25 MCG (1000 UT) capsule Take 1 capsule (25 mcg) by mouth once daily. empagliflozin (Jardiance) 10 mg Take 1 tablet (10 mg) by mouth once daily. 30 tablet 5 ezetimibe (Zetia) 10 mg tablet Take 1 tablet (10 mg) by mouth once daily. 30 tablet 11 finasteride (Proscar) 5 mg tablet Take 1 tablet (5 mg) by mouth once daily. Do not crush, chew, or split. 30 tablet 11 gabapentin (Neurontin) 300 mg capsule Take 1 capsule (300 mg) by mouth 2 times a day. glucosamine/chondr hogue A sod (OSTEO BI-FLEX ORAL) Take 1 capsule by mouth once daily. HYDROcodone-acetaminophen (Tensed) 5-325 mg tablet Take 1 tablet by mouth every 6 hours if needed for severe pain (7 - 10). 20 tablet 0 insulin glargine-lixisenatide (Soliqua 100/33) 100 unit-33 mcg/mL insulin pen Inject 30 Units under the skin once daily. 15 mL 11 lansoprazole (PREVACID ORAL) Take 15 mg by mouth once daily. pen needle, diabetic 31 gauge x 5/16" needle 1 each once daily. 100 each 3 phenazopyridine (Pyridium) 200 mg tablet Take 1 tablet (200 mg) by mouth 3 times a day as needed for bladder spasms. (Patient not taking: Reported on 11/24/2024) 30 tablet 0 tamsulosin (Flomax) 0.4 mg 24 hr capsule Take 1 capsule (0.4 mg) by mouth once daily. 90 capsule 3 No current facility-administered medications for this visit. PMH: Past Medical History: Diagnosis Date BPH (benign prostatic hyperplasia) GERD (gastroesophageal reflux disease) Gout Hyperlipidemia Hypertension Indwelling urinary catheter present Neuropathy, peripheral, autonomic, idiopathic 02/21/2023 Type 2 diabetes mellitus PSH: Past Surgical History: Procedure Laterality Date MR HEAD ANGIO WO IV CONTRAST 03/28/2023 MR HEAD ANGIO WO IV CONTRAST 03/28/2023 [facility] MRI MR NECK ANGIO WO IV CONTRAST 03/28/2023 MR NECK ANGIO WO IV CONTRAST 03/28/2023 [facility] MRI OTHER SURGICAL HISTORY 09/26/2019 Appendectomy OTHER SURGICAL HISTORY 09/26/2019 Colonoscopy OTHER SURGICAL HISTORY 09/26/2019 Cataract surgery FMH: Family History Problem Relation Name Age of Onset Heart attack Mother Cancer Mother Diabetes type II Other OTHER Breast cancer Other OTHER Heart attack Child Brain cancer Child SHx: Social History Tobacco Use Smoking status: Former Current packs/day: 0.00 Types: Cigarettes Quit date: 1988 Years since quittin.2 Passive exposure: Never Smokeless tobacco: Never Vaping Use Vaping status: Never Used Substance Use Topics Alcohol use: Never Drug use: Never Allergies: Allergies Allergen Reactions Pregabalin Unknown Enbvqul-Agr-Yju Reductase Inhibitors Unknown Assessment/Plan 84 year old male with BPH 90g, urinary retention, with de oliveira cath. We had a long and thorough discussion regarding the natural history and options for treatment for bothersome prostatic enlargement. We discussed that observation is an option for minimally symptomatic BPH and the role of medical therapy, but surgical management is recommended for bothersome symptoms despite appropriate medical therapy, when a patient desires to avoid medications, severe or recurrent urinary tract infections, recurrent hematuria attributed to prostatic bleeding, urinary retention, or concern for upper tract damage caused by high pressure voiding and/or incomplete bladder emptying. We discussed minimally invasive surgical therapies (MIST) including Rezum and UroLift along with their specific indications, risks, and benefits. Given the size of his prostate, these would not be appropriate for him. We discussed surgical options including transurethral resection of prostate (TURP), greenlight PVP, HoLEP, open simple prostatectomy, and robotic simple prostatectomy. Again, given the size of his gland he would benefit from an enucleative approach. We discussed the relative merits of robotic simple prostatectomy, open simple prostatectomy, and holmium laser enucleation of the prostate. In particular, given the minimally invasive approach with associated short duration of catheter, low complication rate, and possibility for an outpatient or overnight stay, I recommended he consider a HoLEP. We had a long discussion about holmium laser enucleation of the prostate. I explained how the procedure is done and shiva diagrams. I discussed the perioperative pathway, likely 1 night with a catheter and either outpatient or overnight observation in the hospital. Discussed risks including acute and delayed bleeding, infection, risk of incontinence, risk of anejaculation. In particular, regarding the risk of temporary incontinence we discussed the literature that reports approximately a third of men at 3 months will have some degree of bothersome leakage, but that number drops to less than 1% at 1 year. Discussed the low probability of blood transfusion. I discussed that following the procedure he would not be able to ejaculate, but would still obtain erection and orgasm at his current sexual function. We discussed the possibility of repeat operation, though uncommon with HoLEP. He understands this and would like to proceed. Will schedule this for him accordingly. He will need 5 days of abx prior surgery. Not on any blood thinners. Will need his cath change 2 weeks before surgery. Scribe Attestation By signing my name below, I, Herson Parr, Scribe, attest that this documentation has been prepared under the direction and in the presence of Matilde Regan MD. documented in this encounter [facility] Work Phone: 11-24-2024 History of Present illness Narrative Subjective Patient ID: Kitty Vergara is a 84 y.o. male who presents for Foot Swelling (Swelling bilateral lower extremities x 2 weeks. , Adriel, states he has complained of a bad BAINS as well onset today. States feels like a band around his head.). HPI Since he has been having troubles with his bladder is noticed that the swelling is getting worse in both legs right greater than left. This is the way it has been in the past. Was on Bumex. Also is having a little bit more shortness of breath here recently. Does have moderate to severe aortic stenosis. No chest pains or chest pressures Echocardiogram recently showed ejection fraction that was normal. Murmurs heart 2+ edema in the right leg 1+ edema in the left leg Restart Bumex 1 mg twice a day for 3 days. Will call in 3 to 4 days with an update. Office visit scheduled for 2 weeks We found that he had some moderate to severe aortic stenosis for disc and a watch but since he is developed the symptoms will refer to cardiology. Review of Systems Constitutional: Positive for fatigue. Negative for chills and fever. Respiratory: Positive for shortness of breath. Negative for cough. Cardiovascular: Positive for leg swelling. Gastrointestinal: Negative for diarrhea and nausea. Skin: Negative for rash. Objective BP 124/60 (BP Location: Left arm, Patient Position: Sitting, BP Cuff Size: Adult) Pulse 59 Ht 1.791 m (5' 10.5") Wt 107 kg (235 lb 3.2 oz) SpO2 96% Comment: RA BMI 33.27 kg/m Physical Exam Constitutional: Appearance: Normal appearance. HENT: Head: Normocephalic and atraumatic. Cardiovascular: Rate and Rhythm: Normal rate and regular rhythm. Heart sounds: Murmur heard. Pulmonary: Effort: Pulmonary effort is normal. Breath sounds: Normal breath sounds. Musculoskeletal: Right lower leg: Edema present. Left lower leg: Edema present. Skin: General: Skin is warm and dry. Neurological: General: No focal deficit present. Mental Status: He is alert and oriented to person, place, and time. Psychiatric: Mood and Affect: Mood normal. Behavior: Behavior normal. Thought Content: Thought content normal. Judgment: Judgment normal. Assessment/Plan Problem List Items Addressed This Visit ICD-10-CM Edema of both legs - Primary R60.0 Relevant Orders Referral to Cardiology Hypertension I10 Relevant Orders Referral to Cardiology Nonrheumatic aortic valve stenosis I35.0 Relevant Orders Referral to Cardiology Patient was identified as a fall risk. Risk prevention instructions provided. documented in this encounter [facility] Work Phone: 11-24-2024 Instructions Daniel Almanzar MD - 11/24/2024 4:40 PM EST Bumetanide 1 mg - use twice daily x 3 days. Call with an update in 3-4 days Ways to Help Prevent Falls at Home Quick Tips ? Ask for help if you need it. Most people want to help! ? Get up slowly after sitting or laying down ? Wear a medical alert device or keep cell phone in your pocket ? Use night lights, especially areas near a bathroom ? Keep the items you use often within reach on a small stool or end table ? Use an assistive device such as walker or cane, as directed by provider/physical therapy ? Use a non-slip mat and grab bars in your bathroom. Look for home health sections for best options Other Areas to Focus On ? Exercise and nutrition: Regular exercise or taking a falls prevention class are great ways improve strength and balance. Don t forget to stay hydrated and bring a snack! ? Medicine side effects: Some medicines can make you sleepy or dizzy, which could cause a fall. Ask your healthcare provider about the side effects your medicines could cause. Be sure to let them know if you take any vitamins or supplements as well. ? Tripping hazards: Remove items you could trip on, such as loose mats, rugs, cords, and clutter. Wear closed toe shoes with rubber soles. ? Health and wellness: Get regular checkups with your healthcare provider, plus routine vision and hearing screenings. Talk with your healthcare provider about: o Your medicines and the possible side effects - bring them in a bag if that is easier! o Problems with balance or feeling dizzy o Ways to promote bone health, such as Vitamin D and calcium supplements o Questions or concerns about falling *Ask your healthcare team if you have questions [facility] 2021 documented in this encounter [facility] Work Phone: 11-17-2024 History of Present illness Narrative NAME:Kitty Vergara DATE: 11/17/2024 Subjective: Chief complaint: urinary retention - has had cath for approx 2 months. - from ED in [place] HPI: 84 y.o. male presenting for evaluation of urinary retention at the request of Dr. Lucia Pt follows with Dr Lucia. On chart review pt had cysto, RP on 10/28/24. No masses seen. Per note was to fu with Dr Regan to discuss HOLEP. Has appt with Dr Regan in December from 09/23/24 - prostate approx 88g, distended bladder, no hydro, indeterminate bladder lesion On flomax and proscar Having lots of discomfort with catheter. Past Medical History: Diagnosis Date BPH (benign prostatic hyperplasia) GERD (gastroesophageal reflux disease) Gout Hyperlipidemia Hypertension Neuropathy, peripheral, autonomic, idiopathic 02/21/2023 Type 2 diabetes mellitus Past Surgical History: Procedure Laterality Date MR HEAD ANGIO WO IV CONTRAST 03/28/2023 MR HEAD ANGIO WO IV CONTRAST 03/28/2023 [facility] MRI MR NECK ANGIO WO IV CONTRAST 03/28/2023 MR NECK ANGIO WO IV CONTRAST 03/28/2023 [facility] MRI OTHER SURGICAL HISTORY 09/26/2019 Appendectomy OTHER SURGICAL HISTORY 09/26/2019 Colonoscopy OTHER SURGICAL HISTORY 09/26/2019 Cataract surgery Social History Tobacco Use Smoking status: Former Current packs/day: 0.00 Types: Cigarettes Quit date: 1988 Years since quittin.1 Passive exposure: Never Smokeless tobacco: Never Substance Use Topics Alcohol use: Never Family History Problem Relation Name Age of Onset Heart attack Mother Cancer Mother Diabetes type II Other OTHER Breast cancer Other OTHER Heart attack Child Brain cancer Child Current Outpatient Medications on File Prior to Visit Medication Sig Dispense Refill allopurinol (Zyloprim) 300 mg tablet Take 1 tablet (300 mg) by mouth once daily. 90 tablet 3 blood sugar diagnostic (Advanced Gluc Meter Test Strip) strip 1 strip once daily. 100 strip 3 carvedilol (Coreg) 6.25 mg tablet Take 1 tablet (6.25 mg) by mouth 2 times daily (morning and late afternoon). 60 tablet 0 cholecalciferol (Vitamin D-3) 25 MCG (1000 UT) capsule Take 1 capsule (25 mcg) by mouth once daily. empagliflozin (Jardiance) 10 mg Take 1 tablet (10 mg) by mouth once daily. 30 tablet 5 ezetimibe (Zetia) 10 mg tablet Take 1 tablet (10 mg) by mouth once daily. 30 tablet 11 finasteride (Proscar) 5 mg tablet Take 1 tablet (5 mg) by mouth once daily. Do not crush, chew, or split. 30 tablet 11 gabapentin (Neurontin) 300 mg capsule Take 1 capsule (300 mg) by mouth 2 times a day. glucosamine/chondr hogue A sod (OSTEO BI-FLEX ORAL) Take 1 capsule by mouth once daily. HYDROcodone-acetaminophen (Tensed) 5-325 mg tablet Take 1 tablet by mouth every 6 hours if needed for severe pain (7 - 10). 20 tablet 0 insulin glargine-lixisenatide (Soliqua 100/33) 100 unit-33 mcg/mL insulin pen Inject 30 Units under the skin once daily. 15 mL 11 lansoprazole (PREVACID ORAL) Take 15 mg by mouth once daily. pen needle, diabetic 31 gauge x 5/16" needle 1 each once daily. 100 each 3 phenazopyridine (Pyridium) 200 mg tablet Take 1 tablet (200 mg) by mouth 3 times a day as needed for bladder spasms. 30 tablet 0 tamsulosin (Flomax) 0.4 mg 24 hr capsule Take 1 capsule (0.4 mg) by mouth once daily. 90 capsule 3 No current facility-administered medications on file prior to visit. Kitty is allergic to pregabalin and eovhxbt-ska-mzr reductase inhibitors. Review of Systems 14 point ROS reviewed and discussed with the patient. Pertinent positives/negatives discussed in the History of Present Illness (HPI). FH: Prostate CA: No Bladder CA: No Kidney CA: No Stones: No Social History Occupation: retired Tob: No Etoh: No Objective: Physical Exam 1. Constitutional: NAD, Well-developed, Well-nourished 2. Respiratory: Unlabored breathing, no audible wheezes, no use of accessory muscles 3. Cardiovascular: No JVD, extremities perfused, no edema 4. Abdomen: Soft, non-tender, non-distended, no masses or hernia. No CVA tenderness. 5. Skin: no visible lesions, plaque, rashes, jaundice 6. Neuro: Gait normal, no focal neurologic deficit 7. Psychiatric: Mood and affect normal and appropriate, alert and oriented Labs Lab Results Component Value Date PSA 3.08 11/10/2022 Lab Results Component Value Date GFRMALE 36 (A) 06/18/2023 Lab Results Component Value Date CREATININE 2.29 (H) 10/20/2024 Lab Results Component Value Date CHOL 139 09/26/2024 Lab Results Component Value Date HDL 37.0 09/26/2024 Lab Results Component Value Date CHHDL 3.8 09/26/2024 Lab Results Component Value Date LDLF - 03/29/2022 Lab Results Component Value Date VLDL 60 (H) 09/26/2024 Lab Results Component Value Date TRIG 299 (H) 09/26/2024 Lab Results Component Value Date HGBA1C 7.2 (H) 09/05/2024 Lab Results Component Value Date HCT 27.7 (L) 10/20/2024 New 16Fr coude catheter placed with 10cc in balloon Assessment/Plan: Kitty Vergara presents with 1. Benign prostatic hyperplasia with urinary obstruction 2. Urinary retention Pt with h./o Urinary retention. Has been managed by Dr Lucia. Has appt to see Dr Regan to discuss HOLEP New catheter placed today FU with Dr Regan Will attempt to get sooner appt with Dr Regan documented in this encounter [facility] Work Phone: 10-31-2024 History of Present illness Narrative Patient: Kitty Vergara : 1940 PCP: Daniel Almanzar MD Program: Transitional Care Management Status: Enrolled Effective Dates: 10/21/2024 - present Responsible Staff: Surinder Padron RN Social Drivers to be Addressed: Physical Activity, Transportation Needs Kitty Vergara is a 84 y.o. male presenting today for follow-up after being discharged from the hospital 14 days ago. The main problem requiring admission was MACY, hypotension. The discharge summary and/or Transitional Care Management documentation was reviewed. Medication reconciliation was performed as indicated via the "Davin as Reviewed" timestamp. Kitty Vergara was contacted by Transitional Care Management services two days after his discharge. This encounter and supporting documentation was reviewed. Likely going to need to get laser surgery to help with the drainage of his bladder or may need a suprapubic catheter. Follows with Dr. Lucia and will be seeing a doctor up in [place] for this. At this point that something needs to focus on, once that is better we can address the other issues. Stage IV kidney disease following with Dr. Howell. Type 2 diabetes Beatties following with me The most updated echocardiogram showed moderate to severe aortic stenosis. Also is getting home physical therapy. To help with the weakness. Office visit 2 months Review of Systems Constitutional: Positive for fatigue. Respiratory: Positive for shortness of breath. Negative for cough. Cardiovascular: Negative for chest pain and palpitations. Gastrointestinal: Negative for abdominal pain, constipation, diarrhea and nausea. Genitourinary: Positive for difficulty urinating. Negative for hematuria. Skin: Negative for rash. Neurological: Positive for weakness. Negative for light-headedness. BP 126/78 Pulse 54 Ht 1.791 m (5' 10.5") Wt 104 kg (230 lb) SpO2 94% BMI 32.54 kg/m Physical Exam Constitutional: Appearance: Normal appearance. HENT: Head: Normocephalic and atraumatic. Cardiovascular: Rate and Rhythm: Normal rate and regular rhythm. Heart sounds: Murmur heard. Pulmonary: Effort: Pulmonary effort is normal. Breath sounds: Normal breath sounds. Skin: General: Skin is warm and dry. Neurological: General: No focal deficit present. Mental Status: He is alert and oriented to person, place, and time. Psychiatric: Mood and Affect: Mood normal. Behavior: Behavior normal. Thought Content: Thought content normal. Judgment: Judgment normal. The complexity of medical decision making for this patient's transitional care is moderate. Assessment/Plan Problem List Items Addressed This Visit ICD-10-CM Hypertension - Primary I10 Type 2 diabetes mellitus with chronic kidney disease, with long-term current use of insulin (Multi) E11.22, Z79.4 Nonrheumatic aortic valve stenosis I35.0 documented in this encounter [facility] Work Phone: 10-29-2024 History of Present illness Narrative Subjective He is doing ok. He has messed with his de oliveira. Still has complaints about it. Patient ID: Kitty Vergara is a 84 y.o. male who presents for Follow-up (1 month ). HPI He is here for follow-up after a recent hospitalization in which she had a fall. He also recently had a cystoscopy. He also had a bladder lesion ablation. Labs have not been completed since he left the hospital Medications are reviewed he is on allopurinol Coreg vitamin D Jardiance gabapentin insulin Flomax and finasteride Review of Systems Constitutional: Negative. HENT: Negative. Eyes: Negative. Respiratory: Negative. Cardiovascular: Negative. Gastrointestinal: Negative. Endocrine: Negative. Genitourinary: Negative. Musculoskeletal: Negative. Skin: Negative. Allergic/Immunologic: Negative. Neurological: Negative. Hematological: Negative. Psychiatric/Behavioral: Negative. Objective Physical Exam Constitutional: Appearance: Normal appearance. HENT: Head: Normocephalic and atraumatic. Right Ear: External ear normal. Left Ear: External ear normal. Nose: Nose normal. Mouth/Throat: Mouth: Mucous membranes are moist. Pharynx: Oropharynx is clear. Eyes: Extraocular Movements: Extraocular movements intact. Conjunctiva/sclera: Conjunctivae normal. Pupils: Pupils are equal, round, and reactive to light. Cardiovascular: Rate and Rhythm: Normal rate and regular rhythm. Pulmonary: Effort: Pulmonary effort is normal. Breath sounds: Normal breath sounds. Abdominal: General: Abdomen is flat. Palpations: Abdomen is soft. Genitourinary: Comments: De Oliveira in place that has nikole cut and has tubing holding it together Skin: General: Skin is warm and dry. Neurological: General: No focal deficit present. Mental Status: He is alert and oriented to person, place, and time. Psychiatric: Mood and Affect: Mood normal. Behavior: Behavior normal. Assessment/Plan Problem List Items Addressed This Visit ICD-10-CM Hypertension I10 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) - Primary E11.22, N18.4 Relevant Orders Follow Up In Nephrology Basic metabolic panel Albumin-Creatinine Ratio, Urine Random Urinalysis with Reflex Microscopic Plan: Go to Dr. De La Fuente office today to get de oliveira fixed. Recheck labs in 3 months. Following with Urology. I spent along time going over meds with them and explaining their meds to them as best as I could. Chronic kidney disease stage IV with baseline creatinine 2-2.4 Urinary retention requiring De Oliveira catheter Renal cyst Bladder lesion Diabetes mellitus type 2 on insulin, last hemoglobin A1c 7.2 Hypertension History of NSAID use GERD, on PPI Gout Hyperlipidemia Normal anion gap metabolic acidosis during hospitalization Adriana Howell DO 10/29/24 10:04 AM documented in this encounter [facility] Work Phone: 10-20-2024 History of Present illness Narrative Occupational Therapy Evaluation Patient Name: Kitty Vergara Today's Date: 10/20/2024 Time Calculation Start Time: 956 Stop Time: 1017 Time Calculation (min): 20 min 331/331-A Assessment IP OT Assessment OT Assessment: pt needing minimal assistance with ADLs at this time. pt also has difficulty clearing B feet from floor with mobility in which pt states is normal for him. pt states that his has been helping him with whatever he needs at home. pt educated on importance of increasing strength and activity tolerance to improve indep of ADLs at home. pt verbalizes understanding. pt would benefit from OT services to ensure safe transition home. Prognosis: Good Barriers to Discharge Home: No anticipated barriers Evaluation/Treatment Tolerance: Patient tolerated treatment well End of Session Communication: Bedside nurse End of Session Patient Position: Alarm on, Up in chair (call light in reach) Plan: Treatment Interventions: Functional transfer training, ADL retraining, Equipment evaluation/education, Endurance training, Patient/family training OT Frequency: 2 times per week OT Discharge Recommendations: Low intensity level of continued care Equipment Recommended upon Discharge: Wheeled walker OT Recommended Transfer Status: Stand by assist OT - OK to Discharge: Yes (once medically stable) Subjective Current Problem: 1. Fall, initial encounter 2. Weakness Referral to Home Health 3. Syncope, unspecified syncope type Referral to Home Health 4. Anemia, unspecified type Referral to Home Health 5. Bradycardia Transthoracic Echo (TTE) Complete Transthoracic Echo (TTE) Complete Referral to Home Health 6. Hypotension, unspecified hypotension type Referral to Home Health 7. Hypoxia Referral to Home Health 8. Drug-induced sinus bradycardia Transthoracic Echo (TTE) Complete Transthoracic Echo (TTE) Complete Referral to Home Health 9. 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 Lesion of bladder Referral to Home Health 12. Urinary retention Referral to Home Health 13. 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) Referral to Home Health General: General Reason for Referral: 84 year old male admitted for syncope fall. dx with hypotension, hypoxia, and dehydration. xray right hip and ankle negative for acute injury. EKG shows sinus francisco with first degree AV block Referred By: Chele Mathews Past Medical History Relevant to Rehab: bladder mass, BPH, GERD, insulin-dependent diabetes mellitus, gout, hypertension, hyperlipidemia, right shoulder pain, and chronic kidney disease Family/Caregiver Present: No Co-Treatment: PT Co-Treatment Reason: to maximize pt safety Patient Position Received: Alarm on, Up in chair General Comment: pt agreeable to assessment Precautions: Medical Precautions: Fall precautions Vital Signs: Heart Rate: 67 SpO2: 95 % (98% prior to session, 95% after session) Vital Signs Comment: no concerns on ICU monitor Pain: Pain Assessment Pain Assessment: 0-10 0-10 (Numeric) Pain Score: 0 - No pain Objective Cognition: Overall Cognitive Status: Within Functional Limits Orientation Level: Oriented X4 Insight: Mild Home Living: Type of Home: Condo Lives With: Spouse Home Adaptive Equipment: Cane (rollator, lift chair) Home Access: Level entry Bathroom Shower/Tub: Walk-in shower Bathroom Equipment: Grab bars in shower Home Living Comments: sleep in regular bed. sits i nlift chair throughout the day Prior Function: ADL Assistance: Independent Homemaking Assistance: Needs assistance ( performs) Ambulatory Assistance: Independent ([place] rollator) ADL: Eating Assistance: Independent Grooming Assistance: Stand by Bathing Assistance: Minimal UE Dressing Assistance: Stand by LE Dressing Assistance: Minimal LE Dressing Deficit: (assist to thread de oliveira bag. pt has been using a leg bag at home) Toileting Assistance with Device: Stand by (de oliveira) Activity Tolerance: Endurance: Endurance does not limit participation in activity Bed Mobility/Transfers: Bed Mobility Bed Mobility: No Transfer 1 Technique 1: Sit to stand, Stand to sit Transfer Device 1: Walker, Gait belt Transfer Level of Assistance 1: Contact guard, Close supervision Trials/Comments 1: pt able to perform from recliner. Ambulation/Gait Training: Functional Mobility Functional Mobility Performed: Yes Functional Mobility 1 Surface 1: Level tile Device 1: Rolling walker Functional Mobility Support Devices: Gait belt Assistance 1: Contact guard, Close supervision Comments 1: pt shuffling feet Vision: Vision - Basic Assessment Current Vision: No visual deficits Sensation: Light Touch: No apparent deficits Strength: Strength Comments: BUE WFL Coordination: Movements are Fluid and Coordinated: Yes Outcome Measures: [facility] Daily Activity Putting on and taking off regular lower body clothing: A little Bathing (including washing, rinsing, drying): A little Putting on and taking off regular upper body clothing: A little Toileting, which includes using toilet, bedpan or urinal: A little Taking care of personal grooming such as brushing teeth: A little Eating Meals: None Daily Activity - Total Score: 19 EDUCATION: Education Documentation Body Mechanics, taught by Susi Garcia OT at 10/20/2024 11:58 AM. Learner: Patient Readiness: Acceptance Method: Demonstration, Explanation Response: Demonstrated Understanding, Needs Reinforcement Comment: safety with mobility and ADL Precautions, taught by Susi Garcia OT at 10/20/2024 11:58 AM. Learner: Patient Readiness: Acceptance Method: Demonstration, Explanation Response: Demonstrated Understanding, Needs Reinforcement Comment: safety with mobility and ADL ADL Training, taught by Susi Garcia OT at 10/20/2024 11:58 AM. Learner: Patient Readiness: Acceptance Method: Demonstration, Explanation Response: Demonstrated Understanding, Needs Reinforcement Comment: safety with mobility and ADL Education Comments No comments found. Goals: Encounter Problems Encounter Problems (Active) ADLs Patient will perform UB and LB bathing with supervision level of assistance. (Progressing) Start: 10/20/24 Expected End: 11/03/24 Patient with complete lower body dressing with supervision level of assistance (Progressing) Start: 10/20/24 Expected End: 11/03/24 Patient will complete toileting including hygiene clothing management/hygiene with supervision level of assistance. (Progressing) Start: 10/20/24 Expected End: 11/03/24 BALANCE Pt will maintain dynamic standing balance during ADL task with supervision level of assistance in order to demonstrate decreased risk of falling and improved postural control. (Progressing) Start: 10/20/24 Expected End: 11/03/24 10/20/24 1413 Discharge Planning Living Arrangements Spouse/significant other Support Systems Spouse/significant other Assistance Needed walker Type of Residence Private residence Number of Stairs to Enter Residence 0 Number of Stairs Within Residence 0 Do you have animals or pets at home? No Who is requesting discharge planning? Provider Home or Post Acute Services None Expected Discharge Disposition Home Does the patient need discharge transport arranged? No Financial Resource Strain How hard is it for you to pay for the very basics like food, housing, medical care, and heating? Not hard Housing Stability In the last 12 months, was there a time when you were not able to pay the mortgage or rent on time? N In the past 12 months, how many times have you moved where you were living? 0 At any time in the past 12 months, were you homeless or living in a senior living (including now)? N Transportation Needs In the past 12 months, has lack of transportation kept you from medical appointments or from getting medications? no In the past 12 months, has lack of transportation kept you from meetings, work, or from getting things needed for daily living? No Stroke Family Assessment Stroke Family Assessment Needed No Intensity of Service Intensity of Service 0-30 min Care Transitions: Patient reviewed in care round meeting this AM and is medically ready for discharge today. Met with patient and at bedside for initial assessment. Role of TCC explained. Demographics and contacts verified. He resides with in a 1 story home and feels safe there. PCP is Dr. Furness. Preferred pharmacy is [facility] in [place]. He has been independent at home with ADL's and was able to drive until recently. States his will be his mode of transportation for a while. Hw has a cane, walker and lift chair in the home. Denies the need for any other DME equipment. [facility] per nursing. [facility] per therapy evals. Discussed discharge plans and need for PT.OT in the home. Patient is agreeable to Home care nursing and therapy. States he will return home with [facility] as agency choice. Hospital provider notified of home care agency choise. Medicare IMM reviewed, patient signed, copy provided, original placed in chart. Voiced understanding. No further needs anticipated. Care team available upon request. Sheron Mitchell RN/TCC Physical Therapy Physical Therapy Treatment Patient Name: Kitty Vergara Department: [facility] ICU Room: 331/[facility] Today's Date: 10/20/2024 Time Calculation Start Time: 1001 Stop Time: 1016 Time Calculation (min): 15 min Assessment/Plan Patient with impaired gait with shuffle/slide feet forward for advancement and not lift and stepping which contributes to fall risk. With cues patient minimally attempted to improved gait pattern with improved lift and step to advance feet but R foot continues to slide and unable to fully lift/step. Frequent cues to improve posture with gait as well. Patient would benefit from low intensity PT following hospitalization to improve his LE strength, balance ,mobility and to reduce his fall risk. PT Assessment End of Session Communication: Bedside nurse End of Session Patient Position: Alarm on, Up in chair (call light in reach, legs elevated) PT Plan Treatment/Interventions: Bed mobility, Transfer training, Gait training, Balance training, Strengthening, Therapeutic exercise PT Plan: Ongoing PT PT Frequency: 3 times per week PT Discharge Recommendations: Low intensity level of continued care Equipment Recommended upon Discharge: Wheeled walker PT Recommended Transfer Status: Stand by assist PT - OK to Discharge: (once medically appropriate) General Visit Information: PT Visit PT Received On: 10/20/24 General Reason for Referral: Syncope/impaired mobility Referred By: Chele Mathews Past Medical History Relevant to Rehab: R ankle swell; R hip pain; gout; LE edema; R shldr pain; A-fib Family/Caregiver Present: No Co-Treatment: OT Co-Treatment Reason: to maximize patient safety with mobility Patient Position Received: Up in chair, Alarm on General Comment: patient agreeable to therapy Subjective Precautions: Precautions Medical Precautions: Fall precautions Date/Time Vitals Session Patient Position Pulse Resp SpO2 BP MAP (mmHg) 10/20/24 1001 -- -- -- -- 95 % -- -- Vital Signs Comment: no concerns on tele Objective Pain: Pain Assessment Pain Assessment: 0-10 0-10 (Numeric) Pain Score: 0 - No pain Cognition: Cognition Orientation Level: Oriented X4 Insight: Mild Coordination: Postural Control: Frequent cues to improve posture Extremity/Trunk Assessments: Weakness B ankles/LEs Activity Tolerance: Activity Tolerance Endurance: Endurance does not limit participation in activity Treatments: Bed Mobility Bed Mobility: No Ambulation/Gait Training Ambulation/Gait Training Performed: Yes Ambulation/Gait Training 1 Surface 1: Level tile Device 1: Rolling walker Gait Support Devices: Gait belt Assistance 1: Contact guard, Moderate verbal cues Quality of Gait 1: Foot sweep, Diminished heel strike Comments/Distance (ft) 1: sliding feet on floor-cues to lift and place feet with advancement and patient tried minimally for a few feet then went back to sliding his feet to advance. patient states he feels safe when he does this; cues to lift head to improve posture during ambulation; mild unsteady with turning; 80ft Transfers Transfer: Yes Transfer 1 Technique 1: Sit to stand, Stand to sit Transfer Device 1: Gait belt (FWW) Transfer Level of Assistance 1: Contact guard, Close supervision Trials/Comments 1: 2 trials Outcome Measures: [facility] Basic Mobility Turning from your back to your side while in a flat bed without using bedrails: A little Moving from lying on your back to sitting on the side of a flat bed without using bedrails: A little Moving to and from bed to chair (including a wheelchair): A little Standing up from a chair using your arms (e.g. wheelchair or bedside chair): A little To walk in hospital room: A little Climbing 3-5 steps with railing: Total Basic Mobility - Total Score: 16 Education Documentation Mobility Training, taught by Michaela Mcdaniel PT at 10/20/2024 10:25 AM. Learner: Patient Readiness: Acceptance Method: Explanation Response: Verbalizes Understanding, Demonstrated Understanding, Needs Reinforcement Comment: lift and step feet with ambulation, head up with ambulation, safety with mobility Education Comments No comments found. OP EDUCATION: Encounter Problems Encounter Problems (Active) PT Problem PT Goal 1 (Progressing) Start: 10/19/24 Expected End: 01/17/25 1. This patient will be able to perform all bed mobility at a ( independent ) level of assistance. 2. This patient will be able to perform safe transfers at a ( CGA ) level of assistance with ( std walker ) use. 3. This patient will be able to ambulate distances ( 50ft ) with LRD ( std walker; SBA ). Pain - Adult Subjective Data: Patient reports feeling well, no new adverse events overnight. Patient denies any chest pain, shortness of breath, palpitations, dizziness or syncope. Patient is hemodynamically stable. Overnight Events: No Objective Data: Last Recorded Vitals: Vitals: 10/20/24 0000 10/20/24 0404 10/20/24 0631 10/20/24 0705 BP: 159/61 160/86 136/75 BP Location: Right arm Right arm Patient Position: Lying Lying Pulse: 70 Resp: 18 18 Temp: 36.8 C (98.2 F) 36.5 C (97.7 F) 36 C (96.8 F) TempSrc: Temporal Temporal Temporal SpO2: 96% 99% Weight: Height: Last Labs: CBC - 10/20/2024: 5:09 AM 9.2 9.1 218 27.7 CMP - 10/20/2024: 5:09 AM 8.4 6.9 12 --- 0.5 3.2 3.2 7 100 PTT - No results in last year. _ _ _ TROPHS Date/Time Value Ref Range Status 10/18/2024 03:57 PM 11 0 - 20 ng/L Final 05/29/2024 12:31 PM 10 0 - 20 ng/L Final 03/28/2023 11:50 AM 12 0 - 20 ng/L Final Comment: . Less than 99th percentile of normal range cutoff- Female and children under 18 years old <14 ng/L; Male <21 ng/L: Negative Repeat testing should be performed if clinically indicated. . Female and children under 18 years old 14-50 ng/L; Male 21-50 ng/L: Consistent with possible cardiac damage and possible increased clinical risk. Serial measurements may help to assess extent of myocardial damage. . >50 ng/L: Consistent with cardiac damage, increased clinical risk and myocardial infarction. Serial measurements may help assess extent of myocardial damage. . NOTE: Children less than 1 year old may have higher baseline troponin levels and results should be interpreted in conjunction with the overall clinical context. . NOTE: Troponin I testing is performed using a different testing methodology at [facility] than at other [facility]. Direct result comparisons should only be made within the same method. 03/28/2023 10:22 AM 14 0 - 20 ng/L Final Comment: . Less than 99th percentile of normal range cutoff- Female and children under 18 years old <14 ng/L; Male <21 ng/L: Negative Repeat testing should be performed if clinically indicated. . Female and children under 18 years old 14-50 ng/L; Male 21-50 ng/L: Consistent with possible cardiac damage and possible increased clinical risk. Serial measurements may help to assess extent of myocardial damage. . >50 ng/L: Consistent with cardiac damage, increased clinical risk and myocardial infarction. Serial measurements may help assess extent of myocardial damage. . NOTE: Children less than 1 year old may have higher baseline troponin levels and results should be interpreted in conjunction with the overall clinical context. . NOTE: Troponin I testing is performed using a different testing methodology at [facility] than at other [facility]. Direct result comparisons should only be made within the same method. BNP Date/Time Value Ref Range Status 10/18/2024 03:57 PM 321 0 - 99 pg/mL Final HGBA1C Date/Time Value Ref Range Status 09/05/2024 07:38 AM 7.2 See comment % Final 05/08/2024 07:33 AM 7.3 see below % Final LDLCALC Date/Time Value Ref Range Status 09/26/2024 07:54 AM 42 <=99 mg/dL Final Comment: Near Borderline AGE Desirable Optimal High High Very High 0-19 Y 0 - 109 --- 110-129 >/= 130 ---- 20-24 Y 0 - 119 --- 120-159 >/= 160 ---- >24 Y 0 - 99 100-129 130-159 160-189 >/=190 VLDL Date/Time Value Ref Range Status 09/26/2024 07:54 AM 60 0 - 40 mg/dL Final 03/29/2022 07:54 AM SEE COMMENT 0 - 40 mg/dL Final Comment: Unable to calculate VLDL. 03/29/2020 08:37 AM SEE COMMENT 0 - 40 mg/dL Final Comment: Unable to calculate VLDL. Last I/O: I/O last 3 completed shifts: In: 340 (3.1 mL/kg) [P.O.:340] Out: 3950 (35.8 mL/kg) [Urine:3950 (1 mL/kg/hr)] Weight: 110.3 kg Past Cardiology Tests (Last 3 Years): EKG: ECG 12 lead (Preliminary) ECG 12 lead 05/29/2024 Echo: Transthoracic Echo (TTE) Complete 10/20/2024 Ejection Fractions: EF Date/Time Value Ref Range Status 10/20/2024 07:19 AM 67 % Cath: No results found for this or any previous visit from the past 1095 days. Stress Test: No results found for this or any previous visit from the past 1095 days. Cardiac Imaging: No results found for this or any previous visit from the past 1095 days. Inpatient Medications: Scheduled medications Medication Dose Route Frequency allopurinol 300 mg oral Daily carvedilol 6.25 mg oral BID ezetimibe 10 mg oral Daily finasteride 5 mg oral Daily gabapentin 300 mg oral BID insulin glargine 19 Units subcutaneous Daily before breakfast insulin lispro 0-20 Units subcutaneous Before meals & nightly pantoprazole 40 mg oral Daily before breakfast perflutren protein A microsphere 0.5 mL intravenous Once in imaging sulfur hexafluoride microsphr 2 mL intravenous Once in imaging tamsulosin 0.4 mg oral Daily PRN medications Medication acetaminophen Or acetaminophen Or acetaminophen dextrose dextrose glucagon glucagon HYDROmorphone HYDROmorphone magnesium hydroxide ondansetron ODT Or ondansetron oxygen Continuous Medications Medication Dose Last Rate Physical Exam: General: alert and in no acute distress HEENT: NC/AT; EOMI; PERRLA, external ear is normal Neck: supple; trachea midline; no masses; no JVD Chest: clear breath sounds bilaterally; no wheezing Cardio: regular rhythm, S1S2 normal, no murmurs Abdomen: Soft, non-tender, non-distension, no organomegaly Extremities: Edema 1+/3+ R leg Assessment/Plan Mr. Kitty Vergara is a 84 y.o. former smoker male baing consulted by the Cardiology team for hypotension and bradycardia. He was brought to ED [facility] on 10/18/2024 after losing his consciouness. He did not have the strength to get himself back up. Family states this has been a gradual decline over time. Denied chest pain, shortness of breath, palpitations, leg edema, lightheadedness, headaches, fever, chills, orthopnea or paroxysmal nocturnal dyspnea. EMS reported bradycardia, hypotension and hypoxia. Treated with IV fluids and nasal cannula oxygen. He improved after IV hydration, with recovery of his heart rate to 60bpm and improvement in his BP. EKG showed bradycardic sinus rhythm with 1st degree AV block and no signs of acute ischemic changes. Trop 11. BNP 321. Crea 3.1. He has been admitted for clinical compensation. Assessment # Bradycardia and Hypotension / MACY - In the setting of dehydration - Trop 11. - BNP 321. - Crea 3.1 --> 2.66 --> 2.29 - Would suggest hydration. - Would suggest to continue current medical management per primary team. # Edema R leg - No signs of fracture in X ray - Follow up with Orthopedic team. # Hypertension - Low blood pressure; it has improved after hydration. - Would suggest to hold medications at this point - Nifedipine, and restart it once the patient is more stable. # Diabetes - Counseled on healthy diet and regular exercises. - Discussed need for weight loss and the benefits. - Keep current medications including EMpaglifozin. - ISS. # Hyperlipidemia - Controlled by PCP. - Keep home medication with Ezetimibe. - Counseled on healthy diet and regular exercise. # Gout - Keep Allopurinol. This critically ill patient continues to be at-risk for clinically significant deterioration / failure due to the above mentioned dysfunctional, unstable organ systems. I have personally identified and managed all complex critical care issues to prevent aforementioned clinical deterioration. Critical care time is spent at bedside and/or the immediate area and has included, but is not limited to, the review of diagnostic tests, labs, radiographs, serial assessments of hemodynamics, respiratory status, ventilatory management, and family updates. Time spent in procedures and teaching are reported separately. Critical care time: 55 minutes Peripheral IV 22 G Left Forearm (Active) Site Assessment Clean;Dry;Intact 10/20/24599 Dressing Type Transparent 10/20/24599 Line Status Saline locked 10/20/24599 Dressing Status Clean;Dry;Occlusive 10/20/24599 Number of days: 2 Urethral Catheter Coude 14 Fr. (Active) Output (mL) 300 mL 10/20/24 0551 Number of days: 1 Code Status: Full Code Nima Fay MD Cardiology Kitty Vergara is a 84 y.o. male on day 2 of admission presenting with Fall, initial encounter. Subjective Patient seen and examined at the bedside He is resting comfortably in the bedside chair Ate his breakfast well this morning He did have to have his De Oliveira catheter replaced as he continues to have retention of urine Objective Physical Exam Constitutional: Appearance: Normal appearance. HENT: Head: Normocephalic and atraumatic. Right Ear: External ear normal. Left Ear: External ear normal. Nose: Nose normal. Mouth/Throat: Mouth: Mucous membranes are moist. Pharynx: Oropharynx is clear. Eyes: Extraocular Movements: Extraocular movements intact. Conjunctiva/sclera: Conjunctivae normal. Pupils: Pupils are equal, round, and reactive to light. Cardiovascular: Rate and Rhythm: Normal rate and regular rhythm. Pulmonary: Effort: Pulmonary effort is normal. Breath sounds: Normal breath sounds. Abdominal: General: Abdomen is flat. Palpations: Abdomen is soft. Genitourinary: Comments: Indwelling De Oliveira catheter Skin: General: Skin is warm and dry. Neurological: General: No focal deficit present. Mental Status: He is alert and oriented to person, place, and time. Psychiatric: Mood and Affect: Mood normal. Behavior: Behavior normal. Last Recorded Vitals Blood pressure 136/75, pulse 70, temperature 36 C (96.8 F), temperature source Temporal, resp. rate 18, height 1.701 m (5' 6.97"), weight 110 kg (243 lb 2.7 oz), SpO2 99%. Intake/Output last 3 Shifts: I/O last 3 completed shifts: In: 340 (3.1 mL/kg) [P.O.:340] Out: 3950 (35.8 mL/kg) [Urine:3950 (1 mL/kg/hr)] Weight: 110.3 kg Relevant Results This patient currently has cardiac telemetry ordered; if you would like to modify or discontinue the telemetry order, click here to go to the orders activity to modify/discontinue the order. Assessment/Plan Assessment & Plan Fall, initial encounter Chronic kidney disease stage IV with baseline creatinine 2-2.4 Acute kidney injury on admission: Improving nicely Urinary retention requiring De Oliveira catheter with follow-up cystoscopy planned Renal cyst Bladder lesion Diabetes mellitus type 2 on insulin, last hemoglobin A1c 7.2 Hypertension History of NSAID use GERD, on PPI Gout Hyperlipidemia Normal anion gap metabolic acidosis: Improved Plan: His De Oliveira catheter has been replaced he is not having any discomfort from it currently and he has a follow-up for a cystoscopy I believe on October 28 His renal function is at baseline He can be discharged to home from my standpoint He should keep the De Oliveira catheter in until his cystoscopy He continues to exhibit retention of urine He can follow-up with me as scheduled as an outpatient Please call with any further issues or needs Adriana Howell DO Images from the original note were not included. Medical Group Progress Note ASSESSMENT & PLAN: Kitty Vergara is a 84 y.o. male admitted to [facility] for management of: 84-year-old obese male with a past medical history of bladder mass, BPH, GERD, insulin-dependent diabetes mellitus, gout, hypertension, hyperlipidemia, right shoulder pain, and chronic kidney disease with an average baseline creatinine of around 2.5 who presented to the emergency room for generalized weakness followed by a syncopal event. In the ER, patient was found to have sinus bradycardia with hypotension and acute hypoxemic respiratory failure. Blood workup showed elevated BNP, acute on chronic renal failure, metabolic acidosis. Right ankle x-ray showed diffuse soft tissue swelling but no fractures. Also patient was found to have anemia. Syncope-I will admit the patient to the inpatient medical service with telemetry and vital signs monitoring. Unless proven otherwise, the reason of the syncope is most likely secondary to the underlying bradycardia with hypotension and in the setting of the anemia. Cardiology consulted. Patient is on carvedilol 12.5 mg twice a day. I will decrease it and make it 6.25 mg twice a day with holding parameters. order echocardiogram. Monitor closely for any signs or symptoms of fluid overload given the elevated BNP. Check TSH level. On the other hand, I will be holding the nifedipine given the hypotension. Urinalysis has been sent. Pending sample to be given. Anemia-in the setting of an underlying bladder mass that is currently under investigation. I will order anemia panel and reticulocyte count. Monitor closely hemoglobin levels while at the hospital. Transfuse if hemoglobin drop below 7. Acute on chronic renal failure-I would hold on giving IV fluids for now given the significant leg edema. But will also hold on giving Lasix. Consult nephrology. Right ankle swelling-apply ice packs. Rest. Leg elevation if possible. Continue home medications including insulin Lantus 19 units daily. High-dose insulin sliding scale SCDs for DVT prophylaxis. Would hold on giving anticoagulation given the anemia. Giovanny Baker, DO Hospital Medicine SUBJECTIVE Patient feels better today but continues to have right sided hip pain. OBJECTIVE: Last Recorded Vitals: Vitals: 10/19/24 0900 10/19/24 1000 10/19/24 1100 10/19/24 1500 BP: 144/68 103/89 128/80 163/84 BP Location: Right arm Right arm Patient Position: Sitting Pulse: 66 54 54 Resp: 24 14 16 16 Temp: 36.6 C (97.9 F) 35.8 C (96.4 F) TempSrc: Temporal Temporal SpO2: 100% 100% 94% Weight: Height: Last I/O: I/O last 3 completed shifts: In: 500 (4.5 mL/kg) [IV Piggyback:500] Out: 1150 (10.4 mL/kg) [Urine:1150 (0.3 mL/kg/hr)] Weight: 110.3 kg Physical Exam Constitutional: General: He is not in acute distress. Appearance: He is obese. He is not ill-appearing. Comments: Awake alert and oriented x3 HENT: Ears: Comments: Hearing loss Mouth/Throat: Pharynx: Oropharynx is clear. Eyes: Pupils: Pupils are equal, round, and reactive to light. Cardiovascular: Rate and Rhythm: Normal rate and regular rhythm. Heart sounds: Normal heart sounds. Pulmonary: Effort: No respiratory distress. Breath sounds: Normal breath sounds. No wheezing or rhonchi. Abdominal: General: Abdomen is flat. Bowel sounds are normal. There is no distension. Palpations: Abdomen is soft. Tenderness: There is no abdominal tenderness. Musculoskeletal: Comments: There is severe +4 pitting edema in both feet and the lower third of both legs. There is point tenderness along the lateral right ankle as well as the right lateral gore area. There is complete range of motion of the right ankle. Skin: General: Skin is warm. Neurological: General: No focal deficit present. Psychiatric: Mood and Affect: Mood normal. Behavior: Behavior normal. Thought Content: Thought content normal. Judgment: Judgment normal. Inpatient Medications: allopurinol, 300 mg, oral, Daily carvedilol, 6.25 mg, oral, BID ezetimibe, 10 mg, oral, Daily finasteride, 5 mg, oral, Daily gabapentin, 300 mg, oral, BID insulin glargine, 19 Units, subcutaneous, Daily before breakfast insulin lispro, 0-20 Units, subcutaneous, Before meals & nightly pantoprazole, 40 mg, oral, Daily before breakfast tamsulosin, 0.4 mg, oral, Daily PRN Medications PRN medications: acetaminophen OR acetaminophen OR acetaminophen, dextrose, dextrose, glucagon, glucagon, HYDROmorphone, magnesium hydroxide, ondansetron ODT OR ondansetron, oxygen Continuous Medications: LABS AND IMAGING: Labs: Results from last 7 days Lab Units 10/19/24 0437 10/18/24 1557 WBC AUTO x10*3/uL 11.0 11.2 RBC AUTO x10*6/uL 2.83* 3.05* HEMOGLOBIN g/dL 8.9* 9.2* HEMATOCRIT % 26.3* 28.8* MCV fL 93 94 MCH pg 31.4 30.2 MCHC g/dL 33.8 31.9* RDW % 14.4 14.6* PLATELETS AUTO x10*3/uL 217 217 Results from last 7 days Lab Units 10/19/24 0437 10/18/24 1557 SODIUM mmol/L 136 135* POTASSIUM mmol/L 4.7 4.7 CHLORIDE mmol/L 108* 107 CO2 mmol/L 20* 19* BUN mg/dL 45* 47* CREATININE mg/dL 2.66* 3.13* GLUCOSE mg/dL 174* 159* PROTEIN TOTAL g/dL -- 6.9 CALCIUM mg/dL 8.1* 8.3* BILIRUBIN TOTAL mg/dL -- 0.5 ALK PHOS U/L -- 100 AST U/L -- 12 ALT U/L -- 7* Results from last 7 days Lab Units 10/18/24 1557 TROPHS ng/L 11 Imaging: XR hip right with pelvis when performed 2 or 3 views Narrative: STUDY: Pelvis and Right Hip Radiographs; 10/18/2024 6:05 PM INDICATION: Right hip pain. COMPARISON: XR bilateral hip 07/19/2023. ACCESSION NUMBER(S): [id number] ORDERING CLINICIAN: WALDEMAR COX TECHNIQUE: AP view of the pelvis and two view(s) of the right hip. FINDINGS: PELVIS: The pelvic ring is intact. There is no acute fracture. RIGHT HIP: There is no displaced fracture. The alignment is anatomic. No soft tissue abnormality is seen. Impression: No acute fracture or malalignment. Signed by Aden Narayan DO XR ankle right 3+ views Narrative: STUDY: Ankle Radiographs; 10/18/2024, 1605 INDICATION: Ankle pain status post fall. COMPARISON: None Available. ACCESSION NUMBER(S): [id number] ORDERING CLINICIAN: SANYA SHIN TECHNIQUE: 3 view(s) of the right ankle. FINDINGS: There is diffuse soft tissue swelling. There is no detectable displaced fracture or dislocation. Ankle mortise is symmetric. Impression: Diffuse soft tissue swelling. No detectable displaced fracture. Signed by Myke Castaneda MD XR chest 1 view Narrative: STUDY: Chest Radiograph; 10/18/2024, 1545 INDICATION: Syncope. COMPARISON: XR chest 05/29/2024, 05/28/2020 ACCESSION NUMBER(S): [id number] ORDERING CLINICIAN: SANYA SHIN TECHNIQUE: Frontal chest was obtained at 1545 hours. FINDINGS: CARDIOMEDIASTINAL SILHOUETTE: Cardiomediastinal silhouette is normal in size and configuration. LUNGS: Lungs are mildly hypoinflated with minimal bibasilar opacities, likely atelectasis. There is no pneumothorax. ABDOMEN: No remarkable upper abdominal findings. BONES: No acute osseous changes. Impression: Minimal bibasilar opacities, likely atelectasis. No detectable active cardiopulmonary disease. Signed by Myke Castaneda MD CT head wo IV contrast Narrative: Interpreted By: Shey Morgan, STUDY: CT HEAD WO IV CONTRAST; 10/18/2024 4:38 pm INDICATION: Signs/Symptoms:syncope. COMPARISON: None. ACCESSION NUMBER(S): [id number] ORDERING CLINICIAN: WALDEMAR COX TECHNIQUE: Unenhanced CT images of the head were obtained. FINDINGS: The ventricles, cisterns and sulci are enlarged, consistent with diffuse volume loss. There are areas of nonspecific white matter hypodensity, which are probably age related or microvascular in nature. Few dots of air near the sella and another in the right facial soft tissues. No acute intracranial hemorrhage or mass-effect. No midline shift. No extra-axial fluid collection. No focal calvarial lesion. Mild bilateral ethmoid sinus mucosal thickening. Remaining visualized paranasal sinuses are clear. Impression: No acute intracranial hemorrhage or mass-effect. Dots of intracranial air near the sella, uncertain etiology and significance but perhaps intravascular/iatrogenic. Clinical correlation recommended. Mild bilateral ethmoid sinus mucosal thickening. MACRO: None. Signed by: Shey Morgan 10/18/2024 4:51 PM Dictation workstation: [id number] Subjective Data: Patient reports feeling well, no new adverse events overnight. Patient denies any chest pain, shortness of breath, palpitations, dizziness or syncope. Patient is hemodynamically stable. Overnight Events: No Objective Data: Last Recorded Vitals: Vitals: 10/19/24 0846 10/19/24 0900 10/19/24 1000 10/19/24 1100 BP: 144/68 103/89 128/80 BP Location: Right arm Patient Position: Sitting Pulse: 63 66 54 Resp: 24 14 16 Temp: 36.6 C (97.9 F) TempSrc: Temporal SpO2: 100% 100% Weight: Height: Last Labs: CBC - 10/19/2024: 4:37 AM 11.0 8.9 217 26.3 CMP - 10/19/2024: 4:37 AM 8.1 6.9 12 --- 0.5 4.5 3.4 7 100 PTT - No results in last year. _ _ _ TROPHS Date/Time Value Ref Range Status 10/18/2024 03:57 PM 11 0 - 20 ng/L Final 05/29/2024 12:31 PM 10 0 - 20 ng/L Final 03/28/2023 11:50 AM 12 0 - 20 ng/L Final Comment: . Less than 99th percentile of normal range cutoff- Female and children under 18 years old <14 ng/L; Male <21 ng/L: Negative Repeat testing should be performed if clinically indicated. . Female and children under 18 years old 14-50 ng/L; Male 21-50 ng/L: Consistent with possible cardiac damage and possible increased clinical risk. Serial measurements may help to assess extent of myocardial damage. . >50 ng/L: Consistent with cardiac damage, increased clinical risk and myocardial infarction. Serial measurements may help assess extent of myocardial damage. . NOTE: Children less than 1 year old may have higher baseline troponin levels and results should be interpreted in conjunction with the overall clinical context. . NOTE: Troponin I testing is performed using a different testing methodology at [facility] than at other [facility]. Direct result comparisons should only be made within the same method. 03/28/2023 10:22 AM 14 0 - 20 ng/L Final Comment: . Less than 99th percentile of normal range cutoff- Female and children under 18 years old <14 ng/L; Male <21 ng/L: Negative Repeat testing should be performed if clinically indicated. . Female and children under 18 years old 14-50 ng/L; Male 21-50 ng/L: Consistent with possible cardiac damage and possible increased clinical risk. Serial measurements may help to assess extent of myocardial damage. . >50 ng/L: Consistent with cardiac damage, increased clinical risk and myocardial infarction. Serial measurements may help assess extent of myocardial damage. . NOTE: Children less than 1 year old may have higher baseline troponin levels and results should be interpreted in conjunction with the overall clinical context. . NOTE: Troponin I testing is performed using a different testing methodology at [facility] than at other [facility]. Direct result comparisons should only be made within the same method. BNP Date/Time Value Ref Range Status 10/18/2024 03:57 PM 321 0 - 99 pg/mL Final HGBA1C Date/Time Value Ref Range Status 09/05/2024 07:38 AM 7.2 See comment % Final 05/08/2024 07:33 AM 7.3 see below % Final LDLCALC Date/Time Value Ref Range Status 09/26/2024 07:54 AM 42 <=99 mg/dL Final Comment: Near Borderline AGE Desirable Optimal High High Very High 0-19 Y 0 - 109 --- 110-129 >/= 130 ---- 20-24 Y 0 - 119 --- 120-159 >/= 160 ---- >24 Y 0 - 99 100-129 130-159 160-189 >/=190 VLDL Date/Time Value Ref Range Status 09/26/2024 07:54 AM 60 0 - 40 mg/dL Final 03/29/2022 07:54 AM SEE COMMENT 0 - 40 mg/dL Final Comment: Unable to calculate VLDL. 03/29/2020 08:37 AM SEE COMMENT 0 - 40 mg/dL Final Comment: Unable to calculate VLDL. Last I/O: I/O last 3 completed shifts: In: 500 (4.5 mL/kg) [IV Piggyback:500] Out: 1150 (10.4 mL/kg) [Urine:1150 (0.3 mL/kg/hr)] Weight: 110.3 kg Past Cardiology Tests (Last 3 Years): EKG: ECG 12 lead 05/29/2024 Echo: No results found for this or any previous visit from the past 1095 days. Ejection Fractions: No results found for: "EF" Cath: No results found for this or any previous visit from the past 1095 days. Stress Test: No results found for this or any previous visit from the past 1095 days. Cardiac Imaging: No results found for this or any previous visit from the past 1095 days. Inpatient Medications: Scheduled medications Medication Dose Route Frequency allopurinol 300 mg oral Daily carvedilol 6.25 mg oral BID ezetimibe 10 mg oral Daily finasteride 5 mg oral Daily gabapentin 300 mg oral BID insulin glargine 19 Units subcutaneous Daily before breakfast insulin lispro 0-20 Units subcutaneous Before meals & nightly lidocaine 1 Application urethral Once pantoprazole 40 mg oral Daily before breakfast tamsulosin 0.4 mg oral Daily PRN medications Medication acetaminophen Or acetaminophen Or acetaminophen dextrose dextrose glucagon glucagon HYDROmorphone magnesium hydroxide ondansetron ODT Or ondansetron oxygen Continuous Medications Medication Dose Last Rate Physical Exam: General: alert and in no acute distress HEENT: NC/AT; EOMI; PERRLA, external ear is normal Neck: supple; trachea midline; no masses; no JVD Chest: clear breath sounds bilaterally; no wheezing Cardio: regular rhythm, S1S2 normal, no murmurs Abdomen: Soft, non-tender, non-distension, no organomegaly Extremities: Edema 1+/3+ R leg Assessment/Plan Mr. Kitty Vergara is a 84 y.o. former smoker male baing consulted by the Cardiology team for hypotension and bradycardia. He was brought to ED [facility] on 10/18/2024 after losing his consciouness. He did not have the strength to get himself back up. Family states this has been a gradual decline over time. Denied chest pain, shortness of breath, palpitations, leg edema, lightheadedness, headaches, fever, chills, orthopnea or paroxysmal nocturnal dyspnea. EMS reported bradycardia, hypotension and hypoxia. Treated with IV fluids and nasal cannula oxygen. He improved after IV hydration, with recovery of his heart rate to 60bpm and improvement in his BP. EKG showed bradycardic sinus rhythm with 1st degree AV block and no signs of acute ischemic changes. Trop 11. BNP 321. Crea 3.1. He has been admitted for clinical compensation. Assessment # Bradycardia and Hypotension / MACY - In the setting of dehydration - Trop 11. - BNP 321. - Crea 3.1 --> 2.66 - Would suggest hydration. - Would suggest to continue current medical management per primary team. # Edema R leg - No signs of fracture in X ray - Follow up with Orthopedic team. # Hypertension - Low blood pressure; it has improved after hydration. - Would suggest to hold medications at this point - Nifedipine, and restart it once the patient is more stable. # Diabetes - Counseled on healthy diet and regular exercises. - Discussed need for weight loss and the benefits. - Keep current medications including EMpaglifozin. - ISS. # Hyperlipidemia - Controlled by PCP. - Keep home medication with Ezetimibe. - Counseled on healthy diet and regular exercise. # Gout - Keep Allopurinol. This critically ill patient continues to be at-risk for clinically significant deterioration / failure due to the above mentioned dysfunctional, unstable organ systems. I have personally identified and managed all complex critical care issues to prevent aforementioned clinical deterioration. Critical care time is spent at bedside and/or the immediate area and has included, but is not limited to, the review of diagnostic tests, labs, radiographs, serial assessments of hemodynamics, respiratory status, ventilatory management, and family updates. Time spent in procedures and teaching are reported separately. Critical care time: 60 minutes Peripheral IV 22 G Left Forearm (Active) Site Assessment Clean;Dry;Intact 10/19/24 1000 Dressing Type Transparent 10/19/24 1000 Line Status Saline locked 10/19/24 1000 Dressing Status Clean;Dry 10/19/24 1000 Number of days: 1 Code Status: Full Code Nima Fay MD Cardiology Physical Therapy Physical Therapy Evaluation & Treatment Patient Name: Kitty Vergara Department: [facility] ICU Room: [address] [place], [place] [address] Today's Date: 10/19/2024 Time Calculation Start Time: 940 Stop Time: 1000 Time Calculation (min): 19 min Assessment/Plan PT Assessment PT Assessment Results: Decreased strength, Impaired balance, Decreased mobility Rehab Prognosis: Good Assessment Comment: SBA BK; min x 1 STS with std walker; min x1 gait with std walker; his R leg gave way mildly 2-3x during gait; 4/5 gross strength x4 extremities; gross AROM WFL x4 extremities End of Session Patient Position: (seated in recliner) IP OR SWING BED PT PLAN Inpatient or Swing Bed: Inpatient PT Plan Treatment/Interventions: Bed mobility, Transfer training, Gait training, Balance training, Strengthening, Therapeutic exercise PT Plan: Ongoing PT PT Frequency: 3 times per week Subjective General Visit Information: General Reason for Referral: Syncope/impaired mobility Referred By: Chele Mathews Past Medical History Relevant to Rehab: R ankle swell; R hip pain; gout; LE edema; R shldr pain; A-fib General Comment: admtted on 10/18 after fall episode Home Living: Home Living Type of Home: Condo Lives With: Spouse Prior Level of Function: Prior Function Per Pt/Caregiver Report Ambulatory Assistance: (typically uses walker and cane) Precautions: Date/Time Vitals Session Patient Position Pulse Resp SpO2 BP MAP (mmHg) 10/19/24 0846 -- -- 63 -- -- -- -- 10/19/24 0900 -- -- 66 24 100 % 144/68 91 10/19/24 1000 -- -- -- 14 -- 103/89 95 Objective Pain: Pain Assessment Pain Assessment: 0-10 0-10 (Numeric) Pain Score: 0 - No pain Cognition: Cognition Overall Cognitive Status: Within Functional Limits General Assessments: General Observation General Observation: the patine tpresented in bed with telemetry and RUE BP cuff Functional Assessments: Bed Mobility Bed Mobility: (SBA) Transfers Transfer: (min x1 STS with std walker) Ambulation/Gait Training Ambulation/Gait Training Performed: (x25 ft min x1) Outcome Measures: [facility] Basic Mobility Turning from your back to your side while in a flat bed without using bedrails: None Moving from lying on your back to sitting on the side of a flat bed without using bedrails: A little Moving to and from bed to chair (including a wheelchair): A little Standing up from a chair using your arms (e.g. wheelchair or bedside chair): A little To walk in hospital room: A lot Climbing 3-5 steps with railing: A lot Basic Mobility - Total Score: 17 Encounter Problems Encounter Problems (Active) PT Problem PT Goal 1 Start: 10/19/24 1. This patient will be able to perform all bed mobility at a ( independent ) level of assistance. 2. This patient will be able to perform safe transfers at a ( CGA ) level of assistance with ( std walker ) use. 3. This patient will be able to ambulate distances ( 50ft ) with LRD ( std walker; SBA ). Pain - Adult Education Documentation Precautions, taught by Jose J Young, PT at 10/19/2024 10:20 AM. Learner: Patient Readiness: Acceptance Method: Explanation Response: Verbalizes Understanding Mobility Training, taught by Jose J Young, PT at 10/19/2024 10:20 AM. Learner: Patient Readiness: Acceptance Method: Explanation Response: Verbalizes Understanding Education Comments No comments found. documented in this encounter [facility] Work Phone: 10-20-2024 Hospital course Narrative Discharge Diagnosis Fall, initial encounter Issues Requiring Follow-Up Urinary retention-catheter MACY/CKD Bradycardia/hypotension Discharge Meds Medication List CHANGE how you take these medications carvedilol 6.25 mg tablet; Commonly known as: Coreg; Take 1 tablet (6.25 mg) by mouth 2 times daily (morning and late afternoon).; What changed: medication strength, how much to take empagliflozin 10 mg; Commonly known as: Jardiance; Take 1 tablet (10 mg) by mouth once daily.; What changed: how much to take CONTINUE taking these medications Advanced Gluc Meter Test Strip strip; Generic drug: blood sugar diagnostic; 1 strip once daily. allopurinol 300 mg tablet; Commonly known as: Zyloprim; Take 1 tablet (300 mg) by mouth once daily. cholecalciferol 25 MCG (1000 UT) capsule; Commonly known as: Vitamin D-3 ezetimibe 10 mg tablet; Commonly known as: Zetia; Take 1 tablet (10 mg) by mouth once daily. finasteride 5 mg tablet; Commonly known as: Proscar; Take 1 tablet (5 mg) by mouth once daily. Do not crush, chew, or split. gabapentin 300 mg capsule; Commonly known as: Neurontin OSTEO BI-FLEX ORAL pen needle, diabetic 31 gauge x 5/16" needle; 1 each once daily. PREVACID ORAL Soliqua 100/33 100 unit-33 mcg/mL insulin pen; Generic drug: insulin glargine-lixisenatide; Inject 30 Units under the skin once daily. tamsulosin 0.4 mg 24 hr capsule; Commonly known as: Flomax; Take 1 capsule (0.4 mg) by mouth once daily. STOP taking these medications NIFEdipine ER 30 mg 24 hr tablet; Commonly known as: Adalat CC phenazopyridine 200 mg tablet; Commonly known as: Pyridium sulfamethoxazole-trimethoprim 800-160 mg tablet; Commonly known as: Bactrim DS Test Results Pending At Discharge Pending Labs Order Current Status Extra Urine Sun Tube Collected (10/19/24 0107) Urinalysis with Reflex Culture and Microscopic In process Blood Culture Preliminary result Blood Culture Preliminary result Hospital Course Kitty Vergara is a 84 y.o. male Who was brought by the EMS to the emergency room for a syncopal episode. On presentation, blood pressure 103/54, respiratory 20, afebrile, heart rate 46, respiratory rate 20. Pulse ox in the 80s. Pertinent findings on blood workup; hemoglobin 9.2, BNP 321 bicarbonate 19 creatinine 3.13 and the rest is grossly within normal limits. CT of the head did not show any acute findings other than thoughts of intracranial air near the sella. Right ankle x-ray showed diffuse soft tissue swelling. Right hip x-ray did not show any acute findings. EKG showed sinus bradycardia with first-degree AV block. Patient was given in the emergency room IV fluids and then admitted to the medical service for further investigation and management Bradycardia and Hypotension -Cardiology consulted - In the setting of dehydration - Trop 11. - BNP 321. -Nifedipine discontinued, Coreg decreased. At discharge vital signs have stabilized MACY/CKD -Nephrology consulted -His renal function is at baseline at discharge. -He should keep the De Oliveira catheter in until his cystoscopy He continues to exhibit retention of urine. Plan for cystoscopy on October 28 with urology. He can follow-up with Dr. Howell as scheduled as an outpatient Edema R leg/unsteady gait - No signs of fracture in X ray -Patient with impaired gait with shuffle/slide feet forward for advancement and not lift and stepping which contributes to fall risk. With cues patient minimally attempted to improved gait pattern with improved lift and step to advance feet but R foot continues to slide and unable to fully lift/step. Frequent cues to improve posture with gait as well. Patient would benefit from low intensity PT following hospitalization to improve his LE strength, balance ,mobility and to reduce his fall risk. Hypertension - Low blood pressure; it has improved after hydration. - Would suggest to hold medications at this point - Nifedipine, and restart it once the patient is more stable. Diabetes - Counseled on healthy diet and regular exercises. - Discussed need for weight loss and the benefits. - Empaglifozin dose decreased to 5 mg Hyperlipidemia - Controlled by PCP. - Keep home medication with Ezetimibe. - Counseled on healthy diet and regular exercise. Gout - Keep Allopurinol. Will discharge patient home today. Will order home health care. Patient to follow-up with PCP within 1 week of discharge. Appointment with nephrology October 29. Schedule appointment with cardiology for hospital discharge follow-up as well. Pertinent Physical Exam At Time of Discharge Physical Exam General: alert and in no acute distress HEENT: NC/AT; EOMI; PERRLA, external ear is normal Neck: supple; trachea midline; no masses; no JVD Chest: clear breath sounds bilaterally; no wheezing Cardio: regular rhythm, S1S2 normal, no murmurs Abdomen: Soft, non-tender, non-distension, no organomegaly Extremities: Edema 1+/3+ R leg Outpatient Follow-Up Future Appointments Date Time Provider Department Center 10/29/2024 10:00 AM Adriana Howell DO [id number] [facility] 03/11/2025 10:40 AM Daniel Almanzar MD [id number] None ERUM Peralta documented in this encounter [facility] Work Phone: 10-20-2024 Plan of care note Problem: Pain - Adult Goal: Verbalizes/displays adequate comfort level or baseline comfort level Outcome: Progressing Flowsheets (Taken 10/20/2024 0548) Verbalizes/displays adequate comfort level or baseline comfort level: Assess pain using appropriate pain scale Encourage patient to monitor pain and request assistance Problem: Safety - Adult Goal: Free from fall injury Outcome: Progressing Problem: Pain Goal: Takes deep breaths with improved pain control throughout the shift Outcome: Progressing Goal: Turns in bed with improved pain control throughout the shift Outcome: Progressing Problem: Diabetes Goal: Maintain glucose levels >70mg/dl to <250mg/dl throughout shift Outcome: Progressing Goal: No changes in neurological exam by end of shift Outcome: Progressing Goal: Vital signs within normal range for age by end of shift Outcome: Progressing Flowsheets (Taken 10/20/2024 0548) Vital signs within normal range for age by end of shift: Med administration/monitoring of effect Problem: Skin Goal: Participates in plan/prevention/treatment measures Outcome: Progressing Goal: Prevent/manage excess moisture Outcome: Progressing The patient's goals for the shift include The clinical goals for the shift include pt will have no dizziness/sycope this shift Over the shift, the patient did not make progress toward the following goals. Barriers to progression include pt resting in bed. Recommendations to address these barriers include work with PT/OT. Encourage pt to get up OOB with assistance per dayshift. Encouraged pt to call for needs/wants. Call light within pt reach. Bed alarm maintained. Will cont to monitor. [facility] 10-20-2024 Miscellaneous Notes Problem: Pain - Adult Goal: Verbalizes/displays adequate comfort level or baseline comfort level Outcome: Progressing Flowsheets (Taken 10/20/2024 0548) Verbalizes/displays adequate comfort level or baseline comfort level: Assess pain using appropriate pain scale Encourage patient to monitor pain and request assistance Problem: Safety - Adult Goal: Free from fall injury Outcome: Progressing Problem: Pain Goal: Takes deep breaths with improved pain control throughout the shift Outcome: Progressing Goal: Turns in bed with improved pain control throughout the shift Outcome: Progressing Problem: Diabetes Goal: Maintain glucose levels >70mg/dl to <250mg/dl throughout shift Outcome: Progressing Goal: No changes in neurological exam by end of shift Outcome: Progressing Goal: Vital signs within normal range for age by end of shift Outcome: Progressing Flowsheets (Taken 10/20/2024 0548) Vital signs within normal range for age by end of shift: Med administration/monitoring of effect Problem: Skin Goal: Participates in plan/prevention/treatment measures Outcome: Progressing Goal: Prevent/manage excess moisture Outcome: Progressing The patient's goals for the shift include The clinical goals for the shift include pt will have no dizziness/sycope this shift Over the shift, the patient did not make progress toward the following goals. Barriers to progression include pt resting in bed. Recommendations to address these barriers include work with PT/OT. Encourage pt to get up OOB with assistance per dayshift. Encouraged pt to call for needs/wants. Call light within pt reach. Bed alarm maintained. Will cont to monitor. Problem: Pain - Adult Goal: Verbalizes/displays adequate comfort level or baseline comfort level Outcome: Progressing Problem: Safety - Adult Goal: Free from fall injury Outcome: Progressing Problem: Discharge Planning Goal: Discharge to home or other facility with appropriate resources Outcome: Progressing Problem: Chronic Conditions and Co-morbidities Goal: Patient's chronic conditions and co-morbidity symptoms are monitored and maintained or improved Outcome: Progressing Problem: Nutrition Goal: Nutrient intake appropriate for maintaining nutritional needs Outcome: Progressing Problem: Pain Goal: Takes deep breaths with improved pain control throughout the shift Outcome: Progressing Goal: Turns in bed with improved pain control throughout the shift Outcome: Progressing Goal: Walks with improved pain control throughout the shift Outcome: Progressing Goal: Performs ADL's with improved pain control throughout shift Outcome: Progressing Goal: Participates in PT with improved pain control throughout the shift Outcome: Progressing Goal: Free from opioid side effects throughout the shift Outcome: Progressing Goal: Free from acute confusion related to pain meds throughout the shift Outcome: Progressing Problem: Diabetes Goal: Achieve decreasing blood glucose levels by end of shift Outcome: Progressing Goal: Increase stability of blood glucose readings by end of shift Outcome: Progressing Goal: Maintain electrolyte levels within acceptable range throughout shift Outcome: Progressing Goal: Maintain glucose levels >70mg/dl to <250mg/dl throughout shift Outcome: Progressing Goal: No changes in neurological exam by end of shift Outcome: Progressing Goal: Learn about and adhere to nutrition recommendations by end of shift Outcome: Progressing Goal: Vital signs within normal range for age by end of shift Outcome: Progressing Goal: Increase self care and/or family involovement by end of shift Outcome: Progressing Goal: Receive DSME education by end of shift Outcome: Progressing Problem: Skin Goal: Decreased wound size/increased tissue granulation at next dressing change Outcome: Progressing Goal: Participates in plan/prevention/treatment measures Outcome: Progressing Goal: Prevent/manage excess moisture Outcome: Progressing Goal: Prevent/minimize sheer/friction injuries Outcome: Progressing Goal: Promote/optimize nutrition Outcome: Progressing The patient's goals for the shift include The clinical goals for the shift include pt will have no dizziness/sycope this shift The patient's goals for the shift include The clinical goals for the shift include pain controlled with medication and vital signs stable throughout shift Over the shift, the patient did not make progress toward the following goals. Barriers to progression include . Recommendations to address these barriers include . Problem: Pain - Adult Goal: Verbalizes/displays adequate comfort level or baseline comfort level Outcome: Progressing Flowsheets (Taken 10/19/2024 06) Verbalizes/displays adequate comfort level or baseline comfort level: Encourage patient to monitor pain and request assistance Assess pain using appropriate pain scale Administer analgesics based on type and severity of pain and evaluate response Implement non-pharmacological measures as appropriate and evaluate response Problem: Safety - Adult Goal: Free from fall injury Outcome: Progressing Flowsheets (Taken 10/19/2024611) Free from fall injury: Based on caregiver fall risk screen, instruct family/caregiver to ask for assistance with transferring infant if caregiver noted to have fall risk factors Problem: Chronic Conditions and Co-morbidities Goal: Patient's chronic conditions and co-morbidity symptoms are monitored and maintained or improved Outcome: Progressing Flowsheets (Taken 10/19/2024611) Care Plan - Patient's Chronic Conditions and Co-Morbidity Symptoms are Monitored and Maintained or Improved: Monitor and assess patient's chronic conditions and comorbid symptoms for stability, deterioration, or improvement Problem: Pain Goal: Takes deep breaths with improved pain control throughout the shift Outcome: Progressing Goal: Turns in bed with improved pain control throughout the shift Outcome: Progressing Goal: Performs ADL's with improved pain control throughout shift Outcome: Progressing Goal: Free from opioid side effects throughout the shift Outcome: Progressing Goal: Free from acute confusion related to pain meds throughout the shift Outcome: Progressing Problem: Diabetes Goal: No changes in neurological exam by end of shift Outcome: Progressing Goal: Vital signs within normal range for age by end of shift Outcome: Progressing Associated Problem(s): Fall, initial encounter (Resolved 10/20/2024) 84-year-old obese male with a past medical history of bladder mass, BPH, GERD, insulin-dependent diabetes mellitus, gout, hypertension, hyperlipidemia, right shoulder pain, and chronic kidney disease with an average baseline creatinine of around 2.5 who presented to the emergency room for generalized weakness followed by a syncopal event. In the ER, patient was found to have sinus bradycardia with hypotension and acute hypoxemic respiratory failure. Blood workup showed elevated BNP, acute on chronic renal failure, metabolic acidosis. Right ankle x-ray showed diffuse soft tissue swelling but no fractures. Also patient was found to have anemia. Syncope-I will admit the patient to the inpatient medical service with telemetry and vital signs monitoring. Unless proven otherwise, the reason of the syncope is most likely secondary to the underlying bradycardia with hypotension and in the setting of the anemia. Cardiology consulted. Patient is on carvedilol 12.5 mg twice a day. I will decrease it and make it 6.25 mg twice a day with holding parameters. order echocardiogram. Monitor closely for any signs or symptoms of fluid overload given the elevated BNP. Check TSH level. On the other hand, I will be holding the nifedipine given the hypotension. Urinalysis has been sent. Pending sample to be given. Anemia-in the setting of an underlying bladder mass that is currently under investigation. I will order anemia panel and reticulocyte count. Monitor closely hemoglobin levels while at the hospital. Transfuse if hemoglobin drop below 7. Acute on chronic renal failure-I would hold on giving IV fluids for now given the significant leg edema. But will also hold on giving Lasix. Consult nephrology. Right ankle swelling-apply ice packs. Rest. Leg elevation if possible. Continue home medications including insulin Lantus 19 units daily. High-dose insulin sliding scale SCDs for DVT prophylaxis. Would hold on giving anticoagulation given the anemia. documented in this encounter [facility] Work Phone: 10-19-2024 Plan of care note Problem: Pain - Adult Goal: Verbalizes/displays adequate comfort level or baseline comfort level Outcome: Progressing Problem: Safety - Adult Goal: Free from fall injury Outcome: Progressing Problem: Discharge Planning Goal: Discharge to home or other facility with appropriate resources Outcome: Progressing Problem: Chronic Conditions and Co-morbidities Goal: Patient's chronic conditions and co-morbidity symptoms are monitored and maintained or improved Outcome: Progressing Problem: Nutrition Goal: Nutrient intake appropriate for maintaining nutritional needs Outcome: Progressing Problem: Pain Goal: Takes deep breaths with improved pain control throughout the shift Outcome: Progressing Goal: Turns in bed with improved pain control throughout the shift Outcome: Progressing Goal: Walks with improved pain control throughout the shift Outcome: Progressing Goal: Performs ADL's with improved pain control throughout shift Outcome: Progressing Goal: Participates in PT with improved pain control throughout the shift Outcome: Progressing Goal: Free from opioid side effects throughout the shift Outcome: Progressing Goal: Free from acute confusion related to pain meds throughout the shift Outcome: Progressing Problem: Diabetes Goal: Achieve decreasing blood glucose levels by end of shift Outcome: Progressing Goal: Increase stability of blood glucose readings by end of shift Outcome: Progressing Goal: Maintain electrolyte levels within acceptable range throughout shift Outcome: Progressing Goal: Maintain glucose levels >70mg/dl to <250mg/dl throughout shift Outcome: Progressing Goal: No changes in neurological exam by end of shift Outcome: Progressing Goal: Learn about and adhere to nutrition recommendations by end of shift Outcome: Progressing Goal: Vital signs within normal range for age by end of shift Outcome: Progressing Goal: Increase self care and/or family involovement by end of shift Outcome: Progressing Goal: Receive DSME education by end of shift Outcome: Progressing Problem: Skin Goal: Decreased wound size/increased tissue granulation at next dressing change Outcome: Progressing Goal: Participates in plan/prevention/treatment measures Outcome: Progressing Goal: Prevent/manage excess moisture Outcome: Progressing Goal: Prevent/minimize sheer/friction injuries Outcome: Progressing Goal: Promote/optimize nutrition Outcome: Progressing The patient's goals for the shift include The clinical goals for the shift include pt will have no dizziness/sycope this shift [facility] Work Phone: 10-19-2024 Consult note Associated Order (s): IP CONSULT TO NEPHROLOGY Reason For Consult Chronic kidney disease History Of Present Illness Kitty Vergara is a 84 y.o. male presenting with fall. He presented to the emergency room secondary to a fall. He tells me that he stood up from his chair he tried to turn one-way he felt like he was going the other way and felt like his strength gave out on him and fell He denies loss of consciousness to me however it is listed that he had a syncopal episode. He denies any pain to me this morning He recently had acute urinary retention a De Oliveira was placed this has been taken out and he has a cystoscopy scheduled in the near future He states he is urinating well on his own without any issues currently Past Medical History He has a past medical history of Neuropathy, peripheral, autonomic, idiopathic (02/21/2023). Surgical History He has a past surgical history that includes Other surgical history (09/26/2019); Other surgical history (09/26/2019); Other surgical history (09/26/2019); MR angio head wo IV contrast (03/28/2023); and MR angio neck wo IV contrast (03/28/2023). Social History He reports that he quit smoking about 36 years ago. His smoking use included cigarettes. He has never been exposed to tobacco smoke. He has never used smokeless tobacco. He reports that he does not drink alcohol and does not use drugs. Family History Family History Problem Relation Name Age of Onset Heart attack Mother Cancer Mother Diabetes type II Other OTHER Breast cancer Other OTHER Heart attack Child Brain cancer Child Allergies Pregabalin and Xcxtfcd-clh-bcc reductase inhibitors Review of Systems A full 10 point review of systems was obtained is negative except for HPI as above Physical Exam Physical Exam Constitutional: Appearance: Normal appearance. HENT: Head: Normocephalic and atraumatic. Right Ear: External ear normal. Left Ear: External ear normal. Nose: Nose normal. Mouth/Throat: Mouth: Mucous membranes are moist. Pharynx: Oropharynx is clear. Eyes: Extraocular Movements: Extraocular movements intact. Conjunctiva/sclera: Conjunctivae normal. Pupils: Pupils are equal, round, and reactive to light. Cardiovascular: Rate and Rhythm: Normal rate and regular rhythm. Pulmonary: Effort: Pulmonary effort is normal. Breath sounds: Normal breath sounds. Abdominal: General: Abdomen is flat. Palpations: Abdomen is soft. Skin: General: Skin is warm and dry. Neurological: General: No focal deficit present. Mental Status: He is alert and oriented to person, place, and time. Psychiatric: Mood and Affect: Mood normal. Behavior: Behavior normal. I&O 24HR Intake/Output Summary (Last 24 hours) at 10/19/2024 0914 Last data filed at 10/19/2024 0600 Gross per 24 hour Intake 500 ml Output 1150 ml Net -650 ml Vitals 24HR Heart Rate: [46-64] Temp: [35.6 C (96.1 F)-37.1 C (98.7 F)] Resp: [13-21] BP: (103-157)/(54-106) Height: [170.1 cm (5' 6.97")] Weight: [104 kg (230 lb)-110 kg (243 lb 2.7 oz)] SpO2: [94 %-99 %] Scheduled medications allopurinol, 300 mg, oral, Daily carvedilol, 6.25 mg, oral, BID ezetimibe, 10 mg, oral, Daily finasteride, 5 mg, oral, Daily gabapentin, 300 mg, oral, BID insulin glargine, 19 Units, subcutaneous, Daily before breakfast insulin lispro, 0-20 Units, subcutaneous, Before meals & nightly [Held by provider] NIFEdipine ER, 30 mg, oral, Daily before breakfast pantoprazole, 40 mg, oral, Daily before breakfast sulfamethoxazole-trimethoprim, 1 tablet, oral, Daily tamsulosin, 0.4 mg, oral, Daily Continuous medications PRN medications PRN medications: acetaminophen OR acetaminophen OR acetaminophen, dextrose, dextrose, glucagon, glucagon, HYDROmorphone, magnesium hydroxide, ondansetron ODT OR ondansetron, oxygen Relevant Results Results reviewed Assessment/Plan Chronic kidney disease stage IV with baseline creatinine 2-2.4 Acute kidney injury on admission Urinary retention requiring De Oliveira catheter recently with follow-up cystoscopy planned Renal cyst Bladder lesion Diabetes mellitus type 2 on insulin, last hemoglobin A1c 7.2 Hypertension History of NSAID use GERD, on PPI Gout Hyperlipidemia Normal anion gap metabolic acidosis Plan: Renal function is improving with supportive measures Stop Bactrim Follow acidosis I recently started him on nifedipine due to his hypertension That is on hold we will follow blood pressures for now Thanks for the consult Assessment & Plan Fall, initial encounter Adriana Howell DO [facility] Work Phone: 10-19-2024 Consult note Associated Order (s): IP CONSULT TO NEPHROLOGY Reason For Consult Chronic kidney disease History Of Present Illness Kitty Vergara is a 84 y.o. male presenting with fall. He presented to the emergency room secondary to a fall. He tells me that he stood up from his chair he tried to turn one-way he felt like he was going the other way and felt like his strength gave out on him and fell He denies loss of consciousness to me however it is listed that he had a syncopal episode. He denies any pain to me this morning He recently had acute urinary retention a De Oliveira was placed this has been taken out and he has a cystoscopy scheduled in the near future He states he is urinating well on his own without any issues currently Past Medical History He has a past medical history of Neuropathy, peripheral, autonomic, idiopathic (02/21/2023). Surgical History He has a past surgical history that includes Other surgical history (09/26/2019); Other surgical history (09/26/2019); Other surgical history (09/26/2019); MR angio head wo IV contrast (03/28/2023); and MR angio neck wo IV contrast (03/28/2023). Social History He reports that he quit smoking about 36 years ago. His smoking use included cigarettes. He has never been exposed to tobacco smoke. He has never used smokeless tobacco. He reports that he does not drink alcohol and does not use drugs. Family History Family History Problem Relation Name Age of Onset Heart attack Mother Cancer Mother Diabetes type II Other OTHER Breast cancer Other OTHER Heart attack Child Brain cancer Child Allergies Pregabalin and Qzxpxtu-vai-lmt reductase inhibitors Review of Systems A full 10 point review of systems was obtained is negative except for HPI as above Physical Exam Physical Exam Constitutional: Appearance: Normal appearance. HENT: Head: Normocephalic and atraumatic. Right Ear: External ear normal. Left Ear: External ear normal. Nose: Nose normal. Mouth/Throat: Mouth: Mucous membranes are moist. Pharynx: Oropharynx is clear. Eyes: Extraocular Movements: Extraocular movements intact. Conjunctiva/sclera: Conjunctivae normal. Pupils: Pupils are equal, round, and reactive to light. Cardiovascular: Rate and Rhythm: Normal rate and regular rhythm. Pulmonary: Effort: Pulmonary effort is normal. Breath sounds: Normal breath sounds. Abdominal: General: Abdomen is flat. Palpations: Abdomen is soft. Skin: General: Skin is warm and dry. Neurological: General: No focal deficit present. Mental Status: He is alert and oriented to person, place, and time. Psychiatric: Mood and Affect: Mood normal. Behavior: Behavior normal. I&O 24HR Intake/Output Summary (Last 24 hours) at 10/19/2024 0914 Last data filed at 10/19/2024 0600 Gross per 24 hour Intake 500 ml Output 1150 ml Net -650 ml Vitals 24HR Heart Rate: [46-64] Temp: [35.6 C (96.1 F)-37.1 C (98.7 F)] Resp: [13-21] BP: (103-157)/(54-106) Height: [170.1 cm (5' 6.97")] Weight: [104 kg (230 lb)-110 kg (243 lb 2.7 oz)] SpO2: [94 %-99 %] Scheduled medications allopurinol, 300 mg, oral, Daily carvedilol, 6.25 mg, oral, BID ezetimibe, 10 mg, oral, Daily finasteride, 5 mg, oral, Daily gabapentin, 300 mg, oral, BID insulin glargine, 19 Units, subcutaneous, Daily before breakfast insulin lispro, 0-20 Units, subcutaneous, Before meals & nightly [Held by provider] NIFEdipine ER, 30 mg, oral, Daily before breakfast pantoprazole, 40 mg, oral, Daily before breakfast sulfamethoxazole-trimethoprim, 1 tablet, oral, Daily tamsulosin, 0.4 mg, oral, Daily Continuous medications PRN medications PRN medications: acetaminophen OR acetaminophen OR acetaminophen, dextrose, dextrose, glucagon, glucagon, HYDROmorphone, magnesium hydroxide, ondansetron ODT OR ondansetron, oxygen Relevant Results Results reviewed Assessment/Plan Chronic kidney disease stage IV with baseline creatinine 2-2.4 Acute kidney injury on admission Urinary retention requiring De Oliveira catheter recently with follow-up cystoscopy planned Renal cyst Bladder lesion Diabetes mellitus type 2 on insulin, last hemoglobin A1c 7.2 Hypertension History of NSAID use GERD, on PPI Gout Hyperlipidemia Normal anion gap metabolic acidosis Plan: Renal function is improving with supportive measures Stop Bactrim Follow acidosis I recently started him on nifedipine due to his hypertension That is on hold we will follow blood pressures for now Thanks for the consult Assessment & Plan Fall, initial encounter Adriana Howell DO Associated Order(s): Inpatient consult to Cardiology Inpatient consult to Cardiology Consult performed by: Nima Fay MD Consult ordered by: Kyung Rolle MD Reason for consult: hypotension and bradycardia History Of Present Illness: Mr. Kitty Vergara is a 84 y.o. former smoker male baing consulted by the Cardiology team for hypotension and bradycardia. He was brought to ED [facility] on 10/18/2024 after losing his consciouness. He did not have the strength to get himself back up. Family states this has been a gradual decline over time. Denied chest pain, shortness of breath, palpitations, leg edema, lightheadedness, headaches, fever, chills, orthopnea or paroxysmal nocturnal dyspnea. EMS reported bradycardia, hypotension and hypoxia. Treated with IV fluids and nasal cannula oxygen. He improved after IV hydration, with recovery of his heart rate to 60bpm and improvement in his BP. EKG showed bradycardic sinus rhythm with 1st degree AV block and no signs of acute ischemic changes. Trop 11. BNP 321. Crea 3.1. He has been admitted for clinical compensation. Last Recorded Vitals: Vitals: 10/18/24 1841 10/18/24 1930 10/18/24195810/18/241999 BP: 133/90 131/59 134/65 BP Location: Left arm Left arm Left arm Patient Position: Lying Sitting Sitting Pulse: 55 58 60 Resp: 20 19 15 Temp: TempSrc: SpO2: 96% 96% 95% 95% Weight: Last Labs: CBC - 10/18/2024: 3:57 PM 11.2 9.2 217 28.8 CMP - 10/18/2024: 3:57 PM 8.3 6.9 12 --- 0.5 4.5 3.4 7 100 PTT - No results in last year. _ _ _ Troponin I, High Sensitivity Date/Time Value Ref Range Status 10/18/2024 03:57 PM 11 0 - 20 ng/L Final 05/29/2024 12:31 PM 10 0 - 20 ng/L Final Troponin I Date/Time Value Ref Range Status 03/28/2023 11:50 AM 12 0 - 20 ng/L Final Comment: . Less than 99th percentile of normal range cutoff- Female and children under 18 years old <14 ng/L; Male <21 ng/L: Negative Repeat testing should be performed if clinically indicated. . Female and children under 18 years old 14-50 ng/L; Male 21-50 ng/L: Consistent with possible cardiac damage and possible increased clinical risk. Serial measurements may help to assess extent of myocardial damage. . >50 ng/L: Consistent with cardiac damage, increased clinical risk and myocardial infarction. Serial measurements may help assess extent of myocardial damage. . NOTE: Children less than 1 year old may have higher baseline troponin levels and results should be interpreted in conjunction with the overall clinical context. . NOTE: Troponin I testing is performed using a different testing methodology at [facility] than at other [facility]. Direct result comparisons should only be made within the same method. 03/28/2023 10:22 AM 14 0 - 20 ng/L Final Comment: . Less than 99th percentile of normal range cutoff- Female and children under 18 years old <14 ng/L; Male <21 ng/L: Negative Repeat testing should be performed if clinically indicated. . Female and children under 18 years old 14-50 ng/L; Male 21-50 ng/L: Consistent with possible cardiac damage and possible increased clinical risk. Serial measurements may help to assess extent of myocardial damage. . >50 ng/L: Consistent with cardiac damage, increased clinical risk and myocardial infarction. Serial measurements may help assess extent of myocardial damage. . NOTE: Children less than 1 year old may have higher baseline troponin levels and results should be interpreted in conjunction with the overall clinical context. . NOTE: Troponin I testing is performed using a different testing methodology at [facility] than at other [facility]. Direct result comparisons should only be made within the same method. BNP Date/Time Value Ref Range Status 10/18/2024 03:57 PM 321 (H) 0 - 99 pg/mL Final Hemoglobin A1C Date/Time Value Ref Range Status 09/05/2024 07:38 AM 7.2 (H) See comment % Final 05/08/2024 07:33 AM 7.3 (H) see below % Final LDL Calculated Date/Time Value Ref Range Status 09/26/2024 07:54 AM 42 <=99 mg/dL Final Comment: Near Borderline AGE Desirable Optimal High High Very High 0-19 Y 0 - 109 --- 110-129 >/= 130 ---- 20-24 Y 0 - 119 --- 120-159 >/= 160 ---- >24 Y 0 - 99 100-129 130-159 160-189 >/=190 VLDL Date/Time Value Ref Range Status 09/26/2024 07:54 AM 60 (H) 0 - 40 mg/dL Final 03/29/2022 07:54 AM SEE COMMENT 0 - 40 mg/dL Final Comment: Unable to calculate VLDL. 03/29/2020 08:37 AM SEE COMMENT 0 - 40 mg/dL Final Comment: Unable to calculate VLDL. Last I/O: I/O last 3 completed shifts: In: 500 (4.8 mL/kg) [IV Piggyback:500] Out: - (0 mL/kg) Weight: 104.3 kg Past Cardiology Tests (Last 3 Years): EKG: ECG 12 lead 05/29/2024 Echo: No results found for this or any previous visit from the past 1095 days. Ejection Fractions: No results found for: "EF" Cath: No results found for this or any previous visit from the past 1095 days. Stress Test: No results found for this or any previous visit from the past 1095 days. Cardiac Imaging: No results found for this or any previous visit from the past 1095 days. Past Medical History: He has a past medical history of Neuropathy, peripheral, autonomic, idiopathic (02/21/2023). Past Surgical History: He has a past surgical history that includes Other surgical history (09/26/2019); Other surgical history (09/26/2019); Other surgical history (09/26/2019); MR angio head wo IV contrast (03/28/2023); and MR angio neck wo IV contrast (03/28/2023). Social History: He reports that he quit smoking about 36 years ago. His smoking use included cigarettes. He has never been exposed to tobacco smoke. He has never used smokeless tobacco. He reports that he does not drink alcohol and does not use drugs. Family History: Family History Problem Relation Name Age of Onset Heart attack Mother Cancer Mother Diabetes type II Other OTHER Breast cancer Other OTHER Heart attack Child Brain cancer Child Allergies: Pregabalin and Ksdigcc-jpl-uxx reductase inhibitors Inpatient Medications: Scheduled medications Medication Dose Route Frequency PRN medications Medication oxygen Continuous Medications Medication Dose Last Rate Outpatient Medications: Current Outpatient Medications Medication Instructions allopurinol (ZYLOPRIM) 300 mg, oral, Daily blood sugar diagnostic (Advanced Gluc Meter Test Strip) strip 1 strip, miscellaneous, Daily carvedilol (COREG) 12.5 mg, oral, 2 times daily (morning and late afternoon) chlorpheniramine (CHLOR-TRIMETON) 8 mg, Every morning cholecalciferol (VITAMIN D-3) 25 mcg, Daily empagliflozin (JARDIANCE) 10 mg, oral, Daily ezetimibe (ZETIA) 10 mg, oral, Daily finasteride (PROSCAR) 5 mg, oral, Daily, Do not crush, chew, or split. gabapentin (NEURONTIN) 300 mg, 2 times daily glucosamine/chondr hogue A sod (OSTEO BI-FLEX ORAL) 1 capsule, Daily insulin glargine-lixisenatide (Soliqua 100/33) 100 unit-33 mcg/mL insulin pen 30 Units, subcutaneous, Daily lansoprazole (PREVACID ORAL) 15 mg, Daily NIFEdipine ER (ADALAT CC) 30 mg, oral, Daily before breakfast, Do not crush, chew, or split. pen needle, diabetic 31 gauge x 5/16" needle 1 each, miscellaneous, Daily phenazopyridine (PYRIDIUM) 200 mg, oral, 3 times daily sulfamethoxazole-trimethoprim (Bactrim DS) 800-160 mg tablet 1 tablet, oral, Daily tamsulosin (FLOMAX) 0.4 mg, oral, Daily Physical Exam: General: alert and in no acute distress HEENT: NC/AT; EOMI; PERRLA, external ear is normal Neck: supple; trachea midline; no masses; no JVD Chest: clear breath sounds bilaterally; no wheezing Cardio: regular rhythm, S1S2 normal, no murmurs Abdomen: Soft, non-tender, non-distension, no organomegaly Extremities: Edema 1+/3+ R leg Assessment/Plan Mr. Kitty Vergara is a 84 y.o. former smoker male baing consulted by the Cardiology team for hypotension and bradycardia. He was brought to ED [facility] on 10/18/2024 after losing his consciouness. He did not have the strength to get himself back up. Family states this has been a gradual decline over time. Denied chest pain, shortness of breath, palpitations, leg edema, lightheadedness, headaches, fever, chills, orthopnea or paroxysmal nocturnal dyspnea. EMS reported bradycardia, hypotension and hypoxia. Treated with IV fluids and nasal cannula oxygen. He improved after IV hydration, with recovery of his heart rate to 60bpm and improvement in his BP. EKG showed bradycardic sinus rhythm with 1st degree AV block and no signs of acute ischemic changes. Trop 11. BNP 321. Crea 3.1. He has been admitted for clinical compensation. Assessment # Bradycardia and Hypotension - In the setting of dehydration - Trop 11. - BNP 321. - Crea 3.1. - Would suggest hydration. - Would suggest to continue current medical management per primary team. # Edema R leg - No signs of fracture in X ray - Follow up with Orthopedic team. # Hypertension - Low blood pressure; it has improved after hydration. - Would suggest to hold medications at this point - Nifedipine, and restart it once the patient is more stable. # Diabetes - Counseled on healthy diet and regular exercises. - Discussed need for weight loss and the benefits. - Keep current medications including EMpaglifozin. - ISS. # Hyperlipidemia - Controlled by PCP. - Keep home medication with Ezetimibe. - Counseled on healthy diet and regular exercise. # Gout - Keep Allopurinol. This critically ill patient continues to be at-risk for clinically significant deterioration / failure due to the above mentioned dysfunctional, unstable organ systems. I have personally identified and managed all complex critical care issues to prevent aforementioned clinical deterioration. Critical care time is spent at bedside and/or the immediate area and has included, but is not limited to, the review of diagnostic tests, labs, radiographs, serial assessments of hemodynamics, respiratory status, ventilatory management, and family updates. Time spent in procedures and teaching are reported separately. Critical care time: 65 minutes Code Status: Full Code Nima Fay MD Cardiology documented in this encounter [facility] Work Phone: 10-19-2024 Plan of care note The patient's goals for the shift include The clinical goals for the shift include pain controlled with medication and vital signs stable throughout shift Over the shift, the patient did not make progress toward the following goals. Barriers to progression include . Recommendations to address these barriers include . Problem: Pain - Adult Goal: Verbalizes/displays adequate comfort level or baseline comfort level Outcome: Progressing Flowsheets (Taken 10/19/202412) Verbalizes/displays adequate comfort level or baseline comfort level: Encourage patient to monitor pain and request assistance Assess pain using appropriate pain scale Administer analgesics based on type and severity of pain and evaluate response Implement non-pharmacological measures as appropriate and evaluate response Problem: Safety - Adult Goal: Free from fall injury Outcome: Progressing Flowsheets (Taken 10/19/2024611) Free from fall injury: Based on caregiver fall risk screen, instruct family/caregiver to ask for assistance with transferring infant if caregiver noted to have fall risk factors Problem: Chronic Conditions and Co-morbidities Goal: Patient's chronic conditions and co-morbidity symptoms are monitored and maintained or improved Outcome: Progressing Flowsheets (Taken 10/19/2024611) Care Plan - Patient's Chronic Conditions and Co-Morbidity Symptoms are Monitored and Maintained or Improved: Monitor and assess patient's chronic conditions and comorbid symptoms for stability, deterioration, or improvement Problem: Pain Goal: Takes deep breaths with improved pain control throughout the shift Outcome: Progressing Goal: Turns in bed with improved pain control throughout the shift Outcome: Progressing Goal: Performs ADL's with improved pain control throughout shift Outcome: Progressing Goal: Free from opioid side effects throughout the shift Outcome: Progressing Goal: Free from acute confusion related to pain meds throughout the shift Outcome: Progressing Problem: Diabetes Goal: No changes in neurological exam by end of shift Outcome: Progressing Goal: Vital signs within normal range for age by end of shift Outcome: Progressing [facility] Work Phone: 10-19-2024 Evaluation + Plan note Associated Problem(s): Fall, initial encounter (Resolved 10/20/2024) 84-year-old obese male with a past medical history of bladder mass, BPH, GERD, insulin-dependent diabetes mellitus, gout, hypertension, hyperlipidemia, right shoulder pain, and chronic kidney disease with an average baseline creatinine of around 2.5 who presented to the emergency room for generalized weakness followed by a syncopal event. In the ER, patient was found to have sinus bradycardia with hypotension and acute hypoxemic respiratory failure. Blood workup showed elevated BNP, acute on chronic renal failure, metabolic acidosis. Right ankle x-ray showed diffuse soft tissue swelling but no fractures. Also patient was found to have anemia. Syncope-I will admit the patient to the inpatient medical service with telemetry and vital signs monitoring. Unless proven otherwise, the reason of the syncope is most likely secondary to the underlying bradycardia with hypotension and in the setting of the anemia. Cardiology consulted. Patient is on carvedilol 12.5 mg twice a day. I will decrease it and make it 6.25 mg twice a day with holding parameters. order echocardiogram. Monitor closely for any signs or symptoms of fluid overload given the elevated BNP. Check TSH level. On the other hand, I will be holding the nifedipine given the hypotension. Urinalysis has been sent. Pending sample to be given. Anemia-in the setting of an underlying bladder mass that is currently under investigation. I will order anemia panel and reticulocyte count. Monitor closely hemoglobin levels while at the hospital. Transfuse if hemoglobin drop below 7. Acute on chronic renal failure-I would hold on giving IV fluids for now given the significant leg edema. But will also hold on giving Lasix. Consult nephrology. Right ankle swelling-apply ice packs. Rest. Leg elevation if possible. Continue home medications including insulin Lantus 19 units daily. High-dose insulin sliding scale SCDs for DVT prophylaxis. Would hold on giving anticoagulation given the anemia. [facility] Work Phone: 10-18-2024 Consult note Associated Order (s): Inpatient consult to Cardiology Inpatient consult to Cardiology Consult performed by: Nima Fay MD Consult ordered by: Kyung Rolle MD Reason for consult: hypotension and bradycardia History Of Present Illness: Mr. Kitty Vergara is a 84 y.o. former smoker male baing consulted by the Cardiology team for hypotension and bradycardia. He was brought to ED [facility] on 10/18/2024 after losing his consciouness. He did not have the strength to get himself back up. Family states this has been a gradual decline over time. Denied chest pain, shortness of breath, palpitations, leg edema, lightheadedness, headaches, fever, chills, orthopnea or paroxysmal nocturnal dyspnea. EMS reported bradycardia, hypotension and hypoxia. Treated with IV fluids and nasal cannula oxygen. He improved after IV hydration, with recovery of his heart rate to 60bpm and improvement in his BP. EKG showed bradycardic sinus rhythm with 1st degree AV block and no signs of acute ischemic changes. Trop 11. BNP 321. Crea 3.1. He has been admitted for clinical compensation. Last Recorded Vitals: Vitals: 10/18/24 1841 10/18/24 1930 10/18/24195810/18/241999 BP: 133/90 131/59 134/65 BP Location: Left arm Left arm Left arm Patient Position: Lying Sitting Sitting Pulse: 55 58 60 Resp: 20 19 15 Temp: TempSrc: SpO2: 96% 96% 95% 95% Weight: Last Labs: CBC - 10/18/2024: 3:57 PM 11.2 9.2 217 28.8 CMP - 10/18/2024: 3:57 PM 8.3 6.9 12 --- 0.5 4.5 3.4 7 100 PTT - No results in last year. _ _ _ Troponin I, High Sensitivity Date/Time Value Ref Range Status 10/18/2024 03:57 PM 11 0 - 20 ng/L Final 05/29/2024 12:31 PM 10 0 - 20 ng/L Final Troponin I Date/Time Value Ref Range Status 03/28/2023 11:50 AM 12 0 - 20 ng/L Final Comment: . Less than 99th percentile of normal range cutoff- Female and children under 18 years old <14 ng/L; Male <21 ng/L: Negative Repeat testing should be performed if clinically indicated. . Female and children under 18 years old 14-50 ng/L; Male 21-50 ng/L: Consistent with possible cardiac damage and possible increased clinical risk. Serial measurements may help to assess extent of myocardial damage. . >50 ng/L: Consistent with cardiac damage, increased clinical risk and myocardial infarction. Serial measurements may help assess extent of myocardial damage. . NOTE: Children less than 1 year old may have higher baseline troponin levels and results should be interpreted in conjunction with the overall clinical context. . NOTE: Troponin I testing is performed using a different testing methodology at [facility] than at other [facility]. Direct result comparisons should only be made within the same method. 03/28/2023 10:22 AM 14 0 - 20 ng/L Final Comment: . Less than 99th percentile of normal range cutoff- Female and children under 18 years old <14 ng/L; Male <21 ng/L: Negative Repeat testing should be performed if clinically indicated. . Female and children under 18 years old 14-50 ng/L; Male 21-50 ng/L: Consistent with possible cardiac damage and possible increased clinical risk. Serial measurements may help to assess extent of myocardial damage. . >50 ng/L: Consistent with cardiac damage, increased clinical risk and myocardial infarction. Serial measurements may help assess extent of myocardial damage. . NOTE: Children less than 1 year old may have higher baseline troponin levels and results should be interpreted in conjunction with the overall clinical context. . NOTE: Troponin I testing is performed using a different testing methodology at [facility] than at other [facility]. Direct result comparisons should only be made within the same method. BNP Date/Time Value Ref Range Status 10/18/2024 03:57 PM 321 (H) 0 - 99 pg/mL Final Hemoglobin A1C Date/Time Value Ref Range Status 09/05/2024 07:38 AM 7.2 (H) See comment % Final 05/08/2024 07:33 AM 7.3 (H) see below % Final LDL Calculated Date/Time Value Ref Range Status 09/26/2024 07:54 AM 42 <=99 mg/dL Final Comment: Near Borderline AGE Desirable Optimal High High Very High 0-19 Y 0 - 109 --- 110-129 >/= 130 ---- 20-24 Y 0 - 119 --- 120-159 >/= 160 ---- >24 Y 0 - 99 100-129 130-159 160-189 >/=190 VLDL Date/Time Value Ref Range Status 09/26/2024 07:54 AM 60 (H) 0 - 40 mg/dL Final 03/29/2022 07:54 AM SEE COMMENT 0 - 40 mg/dL Final Comment: Unable to calculate VLDL. 03/29/2020 08:37 AM SEE COMMENT 0 - 40 mg/dL Final Comment: Unable to calculate VLDL. Last I/O: I/O last 3 completed shifts: In: 500 (4.8 mL/kg) [IV Piggyback:500] Out: - (0 mL/kg) Weight: 104.3 kg Past Cardiology Tests (Last 3 Years): EKG: ECG 12 lead 05/29/2024 Echo: No results found for this or any previous visit from the past 1095 days. Ejection Fractions: No results found for: "EF" Cath: No results found for this or any previous visit from the past 1095 days. Stress Test: No results found for this or any previous visit from the past 1095 days. Cardiac Imaging: No results found for this or any previous visit from the past 1095 days. Past Medical History: He has a past medical history of Neuropathy, peripheral, autonomic, idiopathic (02/21/2023). Past Surgical History: He has a past surgical history that includes Other surgical history (09/26/2019); Other surgical history (09/26/2019); Other surgical history (09/26/2019); MR angio head wo IV contrast (03/28/2023); and MR angio neck wo IV contrast (03/28/2023). Social History: He reports that he quit smoking about 36 years ago. His smoking use included cigarettes. He has never been exposed to tobacco smoke. He has never used smokeless tobacco. He reports that he does not drink alcohol and does not use drugs. Family History: Family History Problem Relation Name Age of Onset Heart attack Mother Cancer Mother Diabetes type II Other OTHER Breast cancer Other OTHER Heart attack Child Brain cancer Child Allergies: Pregabalin and Ryujmzu-xev-xhx reductase inhibitors Inpatient Medications: Scheduled medications Medication Dose Route Frequency PRN medications Medication oxygen Continuous Medications Medication Dose Last Rate Outpatient Medications: Current Outpatient Medications Medication Instructions allopurinol (ZYLOPRIM) 300 mg, oral, Daily blood sugar diagnostic (Advanced Gluc Meter Test Strip) strip 1 strip, miscellaneous, Daily carvedilol (COREG) 12.5 mg, oral, 2 times daily (morning and late afternoon) chlorpheniramine (CHLOR-TRIMETON) 8 mg, Every morning cholecalciferol (VITAMIN D-3) 25 mcg, Daily empagliflozin (JARDIANCE) 10 mg, oral, Daily ezetimibe (ZETIA) 10 mg, oral, Daily finasteride (PROSCAR) 5 mg, oral, Daily, Do not crush, chew, or split. gabapentin (NEURONTIN) 300 mg, 2 times daily glucosamine/chondr hogue A sod (OSTEO BI-FLEX ORAL) 1 capsule, Daily insulin glargine-lixisenatide (Soliqua 100/33) 100 unit-33 mcg/mL insulin pen 30 Units, subcutaneous, Daily lansoprazole (PREVACID ORAL) 15 mg, Daily NIFEdipine ER (ADALAT CC) 30 mg, oral, Daily before breakfast, Do not crush, chew, or split. pen needle, diabetic 31 gauge x 5/16" needle 1 each, miscellaneous, Daily phenazopyridine (PYRIDIUM) 200 mg, oral, 3 times daily sulfamethoxazole-trimethoprim (Bactrim DS) 800-160 mg tablet 1 tablet, oral, Daily tamsulosin (FLOMAX) 0.4 mg, oral, Daily Physical Exam: General: alert and in no acute distress HEENT: NC/AT; EOMI; PERRLA, external ear is normal Neck: supple; trachea midline; no masses; no JVD Chest: clear breath sounds bilaterally; no wheezing Cardio: regular rhythm, S1S2 normal, no murmurs Abdomen: Soft, non-tender, non-distension, no organomegaly Extremities: Edema 1+/3+ R leg Assessment/Plan Mr. Kitty Vergara is a 84 y.o. former smoker male baing consulted by the Cardiology team for hypotension and bradycardia. He was brought to ED [facility] on 10/18/2024 after losing his consciouness. He did not have the strength to get himself back up. Family states this has been a gradual decline over time. Denied chest pain, shortness of breath, palpitations, leg edema, lightheadedness, headaches, fever, chills, orthopnea or paroxysmal nocturnal dyspnea. EMS reported bradycardia, hypotension and hypoxia. Treated with IV fluids and nasal cannula oxygen. He improved after IV hydration, with recovery of his heart rate to 60bpm and improvement in his BP. EKG showed bradycardic sinus rhythm with 1st degree AV block and no signs of acute ischemic changes. Trop 11. BNP 321. Crea 3.1. He has been admitted for clinical compensation. Assessment # Bradycardia and Hypotension - In the setting of dehydration - Trop 11. - BNP 321. - Crea 3.1. - Would suggest hydration. - Would suggest to continue current medical management per primary team. # Edema R leg - No signs of fracture in X ray - Follow up with Orthopedic team. # Hypertension - Low blood pressure; it has improved after hydration. - Would suggest to hold medications at this point - Nifedipine, and restart it once the patient is more stable. # Diabetes - Counseled on healthy diet and regular exercises. - Discussed need for weight loss and the benefits. - Keep current medications including EMpaglifozin. - ISS. # Hyperlipidemia - Controlled by PCP. - Keep home medication with Ezetimibe. - Counseled on healthy diet and regular exercise. # Gout - Keep Allopurinol. This critically ill patient continues to be at-risk for clinically significant deterioration / failure due to the above mentioned dysfunctional, unstable organ systems. I have personally identified and managed all complex critical care issues to prevent aforementioned clinical deterioration. Critical care time is spent at bedside and/or the immediate area and has included, but is not limited to, the review of diagnostic tests, labs, radiographs, serial assessments of hemodynamics, respiratory status, ventilatory management, and family updates. Time spent in procedures and teaching are reported separately. Critical care time: 65 minutes Code Status: Full Code Nima Fay MD [facility]iology [facility] Work Phone: 10-18-2024 History and physical note History Of Present Illness Kitty Vergara is a 84 y.o. male Who was brought by the EMS to the emergency room for a syncopal episode. On presentation, blood pressure 103/54, respiratory 20, afebrile, heart rate 46, respiratory rate 20. Pulse ox in the 80s. Pertinent findings on blood workup; hemoglobin 9.2, BNP 321 bicarbonate 19 creatinine 3.13 and the rest is grossly within normal limits. CT of the head did not show any acute findings other than thoughts of intracranial air near the sella. Right ankle x-ray showed diffuse soft tissue swelling. Right hip x-ray did not show any acute findings. EKG showed sinus bradycardia with first-degree AV block. Patient was given in the emergency room IV fluids and then admitted to the medical service for further investigation and management. Upon encounter, patient resting comfortably in his bed. Awake and alert. Reporting pain in his right lateral ankle and right leg. Denies having any shortness of breath. No palpitations. No blurry vision. No chest pain or chest pressure. No cough. ROS 10 systems were reviewed and were negative except for those noted in the history of present illness. Past Medical History Past Medical History: Diagnosis Date Neuropathy, peripheral, autonomic, idiopathic 02/21/2023 Pertinent medical history also documented in my below narrative Surgical History Past Surgical History: Procedure Laterality Date MR HEAD ANGIO WO IV CONTRAST 03/28/2023 MR HEAD ANGIO WO IV CONTRAST 03/28/2023 [facility] MRI MR NECK ANGIO WO IV CONTRAST 03/28/2023 MR NECK ANGIO WO IV CONTRAST 03/28/2023 [facility] MRI OTHER SURGICAL HISTORY 09/26/2019 Appendectomy OTHER SURGICAL HISTORY 09/26/2019 Colonoscopy OTHER SURGICAL HISTORY 09/26/2019 Cataract surgery Pertinent surgical history also documented in my below narrative Social History He reports that he quit smoking about 36 years ago. His smoking use included cigarettes. He has never been exposed to tobacco smoke. He has never used smokeless tobacco. He reports that he does not drink alcohol and does not use drugs. Family History Family History Problem Relation Name Age of Onset Heart attack Mother Cancer Mother Diabetes type II Other OTHER Breast cancer Other OTHER Heart attack Child Brain cancer Child Medications Current Outpatient Medications Medication Instructions allopurinol (ZYLOPRIM) 300 mg, oral, Daily blood sugar diagnostic (Advanced Gluc Meter Test Strip) strip 1 strip, miscellaneous, Daily carvedilol (COREG) 12.5 mg, oral, 2 times daily (morning and late afternoon) chlorpheniramine (CHLOR-TRIMETON) 8 mg, Every morning cholecalciferol (VITAMIN D-3) 25 mcg, Daily empagliflozin (JARDIANCE) 10 mg, oral, Daily ezetimibe (ZETIA) 10 mg, oral, Daily finasteride (PROSCAR) 5 mg, oral, Daily, Do not crush, chew, or split. gabapentin (NEURONTIN) 300 mg, 2 times daily glucosamine/chondr hogue A sod (OSTEO BI-FLEX ORAL) 1 capsule, Daily insulin glargine-lixisenatide (Soliqua 100/33) 100 unit-33 mcg/mL insulin pen 30 Units, subcutaneous, Daily lansoprazole (PREVACID ORAL) 15 mg, Daily NIFEdipine ER (ADALAT CC) 30 mg, oral, Daily before breakfast, Do not crush, chew, or split. pen needle, diabetic 31 gauge x 5/16" needle 1 each, miscellaneous, Daily sulfamethoxazole-trimethoprim (Bactrim DS) 800-160 mg tablet 1 tablet, oral, Daily tamsulosin (FLOMAX) 0.4 mg, oral, Daily Allergies Pregabalin and Gzzfpqh-ebt-ogo reductase inhibitors Last Recorded Vitals Blood pressure 135/59, pulse 55, temperature 36.4 C (97.5 F), temperature source Tympanic, resp. rate 13, weight 110 kg (243 lb 2.7 oz), SpO2 97%. Physical Exam Constitutional: General: He is not in acute distress. Appearance: He is obese. He is not ill-appearing. Comments: Awake alert and oriented x3 HENT: Ears: Comments: Hearing loss Mouth/Throat: Pharynx: Oropharynx is clear. Eyes: Pupils: Pupils are equal, round, and reactive to light. Cardiovascular: Rate and Rhythm: Normal rate and regular rhythm. Heart sounds: Normal heart sounds. Pulmonary: Effort: No respiratory distress. Breath sounds: Normal breath sounds. No wheezing or rhonchi. Abdominal: General: Abdomen is flat. Bowel sounds are normal. There is no distension. Palpations: Abdomen is soft. Tenderness: There is no abdominal tenderness. Musculoskeletal: Comments: There is severe +4 pitting edema in both feet and the lower third of both legs. There is point tenderness along the lateral right ankle as well as the right lateral gore area. There is complete range of motion of the right ankle. Skin: General: Skin is warm. Neurological: General: No focal deficit present. Psychiatric: Mood and Affect: Mood normal. Behavior: Behavior normal. Thought Content: Thought content normal. Judgment: Judgment normal. Relevant Results Results for orders placed or performed during the hospital encounter of 10/18/24 (from the past 24 hours) Sars-CoV-2 PCR Result Value Ref Range Coronavirus 2019, PCR Not Detected Not Detected Influenza A, and B PCR Result Value Ref Range Flu A Result Not Detected Not Detected Flu B Result Not Detected Not Detected Comprehensive metabolic panel Result Value Ref Range Glucose 159 (H) 74 - 99 mg/dL Sodium 135 (L) 136 - 145 mmol/L Potassium 4.7 3.5 - 5.3 mmol/L Chloride 107 98 - 107 mmol/L Bicarbonate 19 (L) 21 - 32 mmol/L Anion Gap 14 10 - 20 mmol/L Urea Nitrogen 47 (H) 6 - 23 mg/dL Creatinine 3.13 (H) 0.50 - 1.30 mg/dL eGFR 19 (L) >60 mL/min/1.73m*2 Calcium 8.3 (L) 8.6 - 10.3 mg/dL Albumin 3.4 3.4 - 5.0 g/dL Alkaline Phosphatase 100 33 - 136 U/L Total Protein 6.9 6.4 - 8.2 g/dL AST 12 9 - 39 U/L Bilirubin, Total 0.5 0.0 - 1.2 mg/dL ALT 7 (L) 10 - 52 U/L Lipase Result Value Ref Range Lipase 23 9 - 82 U/L Troponin I, High Sensitivity Result Value Ref Range Troponin I, High Sensitivity 11 0 - 20 ng/L B-Type Natriuretic Peptide Result Value Ref Range BNP 321 (H) 0 - 99 pg/mL CBC Result Value Ref Range WBC 11.2 4.4 - 11.3 x10*3/uL nRBC 0.0 0.0 - 0.0 /100 WBCs RBC 3.05 (L) 4.50 - 5.90 x10*6/uL Hemoglobin 9.2 (L) 13.5 - 17.5 g/dL Hematocrit 28.8 (L) 41.0 - 52.0 % MCV 94 80 - 100 fL MCH 30.2 26.0 - 34.0 pg MCHC 31.9 (L) 32.0 - 36.0 g/dL RDW 14.6 (H) 11.5 - 14.5 % Platelets 217 150 - 450 x10*3/uL Lactate Result Value Ref Range Lactate 0.9 0.4 - 2.0 mmol/L POCT GLUCOSE Result Value Ref Range POCT Glucose 136 (H) 74 - 99 mg/dL XR hip right with pelvis when performed 2 or 3 views Result Date: 10/18/2024 STUDY: Pelvis and Right Hip Radiographs; 10/18/2024 6:05 PM INDICATION: Right hip pain. COMPARISON: XR bilateral hip 07/19/2023. ACCESSION NUMBER(S): [id number] ORDERING CLINICIAN: WALDEMAR COX TECHNIQUE: AP view of the pelvis and two view(s) of the right hip. FINDINGS: PELVIS: The pelvic ring is intact. There is no acute fracture. RIGHT HIP: There is no displaced fracture. The alignment is anatomic. No soft tissue abnormality is seen. No acute fracture or malalignment. Signed by Aden Narayan DO XR ankle right 3+ views Result Date: 10/18/2024 STUDY: Ankle Radiographs; 10/18/2024, 1605 INDICATION: Ankle pain status post fall. COMPARISON: None Available. ACCESSION NUMBER(S): [id number] ORDERING CLINICIAN: SANYA SHIN TECHNIQUE: 3 view(s) of the right ankle. FINDINGS: There is diffuse soft tissue swelling. There is no detectable displaced fracture or dislocation. Ankle mortise is symmetric. Diffuse soft tissue swelling. No detectable displaced fracture. Signed by Myke Castaneda MD XR chest 1 view Result Date: 10/18/2024 STUDY: Chest Radiograph; 10/18/2024, 1545 INDICATION: Syncope. COMPARISON: XR chest 05/29/2024, 05/28/2020 ACCESSION NUMBER(S): [id number] ORDERING CLINICIAN: SANYA SHIN TECHNIQUE: Frontal chest was obtained at 1545 hours. FINDINGS: CARDIOMEDIASTINAL SILHOUETTE: Cardiomediastinal silhouette is normal in size and configuration. LUNGS: Lungs are mildly hypoinflated with minimal bibasilar opacities, likely atelectasis. There is no pneumothorax. ABDOMEN: No remarkable upper abdominal findings. BONES: No acute osseous changes. Minimal bibasilar opacities, likely atelectasis. No detectable active cardiopulmonary disease. Signed by Myke Castaneda MD CT head wo IV contrast Result Date: 10/18/2024 Interpreted By: Shey Morgan, STUDY: CT HEAD WO IV CONTRAST; 10/18/2024 4:38 pm INDICATION: Signs/Symptoms:syncope. COMPARISON: None. ACCESSION NUMBER(S): [id number] ORDERING CLINICIAN: WALDEMAR COX TECHNIQUE: Unenhanced CT images of the head were obtained. FINDINGS: The ventricles, cisterns and sulci are enlarged, consistent with diffuse volume loss. There are areas of nonspecific white matter hypodensity, which are probably age related or microvascular in nature. Few dots of air near the sella and another in the right facial soft tissues. No acute intracranial hemorrhage or mass-effect. No midline shift. No extra-axial fluid collection. No focal calvarial lesion. Mild bilateral ethmoid sinus mucosal thickening. Remaining visualized paranasal sinuses are clear. No acute intracranial hemorrhage or mass-effect. Dots of intracranial air near the sella, uncertain etiology and significance but perhaps intravascular/iatrogenic. Clinical correlation recommended. Mild bilateral ethmoid sinus mucosal thickening. MACRO: None. Signed by: Shey Morgan 10/18/2024 4:51 PM Dictation workstation: [id number] Assessment & Plan Fall, initial encounter 84-year-old obese male with a past medical history of bladder mass, BPH, GERD, insulin-dependent diabetes mellitus, gout, hypertension, hyperlipidemia, right shoulder pain, and chronic kidney disease with an average baseline creatinine of around 2.5 who presented to the emergency room for generalized weakness followed by a syncopal event. In the ER, patient was found to have sinus bradycardia with hypotension and acute hypoxemic respiratory failure. Blood workup showed elevated BNP, acute on chronic renal failure, metabolic acidosis. Right ankle x-ray showed diffuse soft tissue swelling but no fractures. Also patient was found to have anemia. Syncope-I will admit the patient to the inpatient medical service with telemetry and vital signs monitoring. Unless proven otherwise, the reason of the syncope is most likely secondary to the underlying bradycardia with hypotension and in the setting of the anemia. Cardiology consulted. Patient is on carvedilol 12.5 mg twice a day. I will decrease it and make it 6.25 mg twice a day with holding parameters. order echocardiogram. Monitor closely for any signs or symptoms of fluid overload given the elevated BNP. Check TSH level. On the other hand, I will be holding the nifedipine given the hypotension. Urinalysis has been sent. Pending sample to be given. Anemia-in the setting of an underlying bladder mass that is currently under investigation. I will order anemia panel and reticulocyte count. Monitor closely hemoglobin levels while at the hospital. Transfuse if hemoglobin drop below 7. Acute on chronic renal failure-I would hold on giving IV fluids for now given the significant leg edema. But will also hold on giving Lasix. Consult nephrology. Right ankle swelling-apply ice packs. Rest. Leg elevation if possible. Continue home medications including insulin Lantus 19 units daily. High-dose insulin sliding scale SCDs for DVT prophylaxis. Would hold on giving anticoagulation given the anemia. (This note was generated with voice recognition software and may contain errors including spelling, grammar, syntax and misrecognition of what was dictated, that are not fully corrected) Zana Mathews MD [facility] Work Phone: 10-18-2024 History and physical note History Of Present Illness Kitty Vergara is a 84 y.o. male Who was brought by the EMS to the emergency room for a syncopal episode. On presentation, blood pressure 103/54, respiratory 20, afebrile, heart rate 46, respiratory rate 20. Pulse ox in the 80s. Pertinent findings on blood workup; hemoglobin 9.2, BNP 321 bicarbonate 19 creatinine 3.13 and the rest is grossly within normal limits. CT of the head did not show any acute findings other than thoughts of intracranial air near the sella. Right ankle x-ray showed diffuse soft tissue swelling. Right hip x-ray did not show any acute findings. EKG showed sinus bradycardia with first-degree AV block. Patient was given in the emergency room IV fluids and then admitted to the medical service for further investigation and management. Upon encounter, patient resting comfortably in his bed. Awake and alert. Reporting pain in his right lateral ankle and right leg. Denies having any shortness of breath. No palpitations. No blurry vision. No chest pain or chest pressure. No cough. ROS 10 systems were reviewed and were negative except for those noted in the history of present illness. Past Medical History Past Medical History: Diagnosis Date Neuropathy, peripheral, autonomic, idiopathic 02/21/2023 Pertinent medical history also documented in my below narrative Surgical History Past Surgical History: Procedure Laterality Date MR HEAD ANGIO WO IV CONTRAST 03/28/2023 MR HEAD ANGIO WO IV CONTRAST 03/28/2023 [facility] MRI MR NECK ANGIO WO IV CONTRAST 03/28/2023 MR NECK ANGIO WO IV CONTRAST 03/28/2023 [facility] MRI OTHER SURGICAL HISTORY 09/26/2019 Appendectomy OTHER SURGICAL HISTORY 09/26/2019 Colonoscopy OTHER SURGICAL HISTORY 09/26/2019 Cataract surgery Pertinent surgical history also documented in my below narrative Social History He reports that he quit smoking about 36 years ago. His smoking use included cigarettes. He has never been exposed to tobacco smoke. He has never used smokeless tobacco. He reports that he does not drink alcohol and does not use drugs. Family History Family History Problem Relation Name Age of Onset Heart attack Mother Cancer Mother Diabetes type II Other OTHER Breast cancer Other OTHER Heart attack Child Brain cancer Child Medications Current Outpatient Medications Medication Instructions allopurinol (ZYLOPRIM) 300 mg, oral, Daily blood sugar diagnostic (Advanced Gluc Meter Test Strip) strip 1 strip, miscellaneous, Daily carvedilol (COREG) 12.5 mg, oral, 2 times daily (morning and late afternoon) chlorpheniramine (CHLOR-TRIMETON) 8 mg, Every morning cholecalciferol (VITAMIN D-3) 25 mcg, Daily empagliflozin (JARDIANCE) 10 mg, oral, Daily ezetimibe (ZETIA) 10 mg, oral, Daily finasteride (PROSCAR) 5 mg, oral, Daily, Do not crush, chew, or split. gabapentin (NEURONTIN) 300 mg, 2 times daily glucosamine/chondr hogue A sod (OSTEO BI-FLEX ORAL) 1 capsule, Daily insulin glargine-lixisenatide (Soliqua 100/33) 100 unit-33 mcg/mL insulin pen 30 Units, subcutaneous, Daily lansoprazole (PREVACID ORAL) 15 mg, Daily NIFEdipine ER (ADALAT CC) 30 mg, oral, Daily before breakfast, Do not crush, chew, or split. pen needle, diabetic 31 gauge x 5/16" needle 1 each, miscellaneous, Daily sulfamethoxazole-trimethoprim (Bactrim DS) 800-160 mg tablet 1 tablet, oral, Daily tamsulosin (FLOMAX) 0.4 mg, oral, Daily Allergies Pregabalin and Lshfsqf-hxl-dtw reductase inhibitors Last Recorded Vitals Blood pressure 135/59, pulse 55, temperature 36.4 C (97.5 F), temperature source Tympanic, resp. rate 13, weight 110 kg (243 lb 2.7 oz), SpO2 97%. Physical Exam Constitutional: General: He is not in acute distress. Appearance: He is obese. He is not ill-appearing. Comments: Awake alert and oriented x3 HENT: Ears: Comments: Hearing loss Mouth/Throat: Pharynx: Oropharynx is clear. Eyes: Pupils: Pupils are equal, round, and reactive to light. Cardiovascular: Rate and Rhythm: Normal rate and regular rhythm. Heart sounds: Normal heart sounds. Pulmonary: Effort: No respiratory distress. Breath sounds: Normal breath sounds. No wheezing or rhonchi. Abdominal: General: Abdomen is flat. Bowel sounds are normal. There is no distension. Palpations: Abdomen is soft. Tenderness: There is no abdominal tenderness. Musculoskeletal: Comments: There is severe +4 pitting edema in both feet and the lower third of both legs. There is point tenderness along the lateral right ankle as well as the right lateral gore area. There is complete range of motion of the right ankle. Skin: General: Skin is warm. Neurological: General: No focal deficit present. Psychiatric: Mood and Affect: Mood normal. Behavior: Behavior normal. Thought Content: Thought content normal. Judgment: Judgment normal. Relevant Results Results for orders placed or performed during the hospital encounter of 10/18/24 (from the past 24 hours) Sars-CoV-2 PCR Result Value Ref Range Coronavirus 2019, PCR Not Detected Not Detected Influenza A, and B PCR Result Value Ref Range Flu A Result Not Detected Not Detected Flu B Result Not Detected Not Detected Comprehensive metabolic panel Result Value Ref Range Glucose 159 (H) 74 - 99 mg/dL Sodium 135 (L) 136 - 145 mmol/L Potassium 4.7 3.5 - 5.3 mmol/L Chloride 107 98 - 107 mmol/L Bicarbonate 19 (L) 21 - 32 mmol/L Anion Gap 14 10 - 20 mmol/L Urea Nitrogen 47 (H) 6 - 23 mg/dL Creatinine 3.13 (H) 0.50 - 1.30 mg/dL eGFR 19 (L) >60 mL/min/1.73m*2 Calcium 8.3 (L) 8.6 - 10.3 mg/dL Albumin 3.4 3.4 - 5.0 g/dL Alkaline Phosphatase 100 33 - 136 U/L Total Protein 6.9 6.4 - 8.2 g/dL AST 12 9 - 39 U/L Bilirubin, Total 0.5 0.0 - 1.2 mg/dL ALT 7 (L) 10 - 52 U/L Lipase Result Value Ref Range Lipase 23 9 - 82 U/L Troponin I, High Sensitivity Result Value Ref Range Troponin I, High Sensitivity 11 0 - 20 ng/L B-Type Natriuretic Peptide Result Value Ref Range BNP 321 (H) 0 - 99 pg/mL CBC Result Value Ref Range WBC 11.2 4.4 - 11.3 x10*3/uL nRBC 0.0 0.0 - 0.0 /100 WBCs RBC 3.05 (L) 4.50 - 5.90 x10*6/uL Hemoglobin 9.2 (L) 13.5 - 17.5 g/dL Hematocrit 28.8 (L) 41.0 - 52.0 % MCV 94 80 - 100 fL MCH 30.2 26.0 - 34.0 pg MCHC 31.9 (L) 32.0 - 36.0 g/dL RDW 14.6 (H) 11.5 - 14.5 % Platelets 217 150 - 450 x10*3/uL Lactate Result Value Ref Range Lactate 0.9 0.4 - 2.0 mmol/L POCT GLUCOSE Result Value Ref Range POCT Glucose 136 (H) 74 - 99 mg/dL XR hip right with pelvis when performed 2 or 3 views Result Date: 10/18/2024 STUDY: Pelvis and Right Hip Radiographs; 10/18/2024 6:05 PM INDICATION: Right hip pain. COMPARISON: XR bilateral hip 07/19/2023. ACCESSION NUMBER(S): [id number] ORDERING CLINICIAN: WALDEMAR COX TECHNIQUE: AP view of the pelvis and two view(s) of the right hip. FINDINGS: PELVIS: The pelvic ring is intact. There is no acute fracture. RIGHT HIP: There is no displaced fracture. The alignment is anatomic. No soft tissue abnormality is seen. No acute fracture or malalignment. Signed by Aden Narayan DO XR ankle right 3+ views Result Date: 10/18/2024 STUDY: Ankle Radiographs; 10/18/2024, 1605 INDICATION: Ankle pain status post fall. COMPARISON: None Available. ACCESSION NUMBER(S): [id number] ORDERING CLINICIAN: SANYA SHIN TECHNIQUE: 3 view(s) of the right ankle. FINDINGS: There is diffuse soft tissue swelling. There is no detectable displaced fracture or dislocation. Ankle mortise is symmetric. Diffuse soft tissue swelling. No detectable displaced fracture. Signed by Myke Castaneda MD XR chest 1 view Result Date: 10/18/2024 STUDY: Chest Radiograph; 10/18/2024, 1545 INDICATION: Syncope. COMPARISON: XR chest 05/29/2024, 05/28/2020 ACCESSION NUMBER(S): [id number] ORDERING CLINICIAN: SANYA SHIN TECHNIQUE: Frontal chest was obtained at 1545 hours. FINDINGS: CARDIOMEDIASTINAL SILHOUETTE: Cardiomediastinal silhouette is normal in size and configuration. LUNGS: Lungs are mildly hypoinflated with minimal bibasilar opacities, likely atelectasis. There is no pneumothorax. ABDOMEN: No remarkable upper abdominal findings. BONES: No acute osseous changes. Minimal bibasilar opacities, likely atelectasis. No detectable active cardiopulmonary disease. Signed by Myke Castaneda MD CT head wo IV contrast Result Date: 10/18/2024 Interpreted By: Shey Morgan, STUDY: CT HEAD WO IV CONTRAST; 10/18/2024 4:38 pm INDICATION: Signs/Symptoms:syncope. COMPARISON: None. ACCESSION NUMBER(S): [id number] ORDERING CLINICIAN: WALDEMAR COX TECHNIQUE: Unenhanced CT images of the head were obtained. FINDINGS: The ventricles, cisterns and sulci are enlarged, consistent with diffuse volume loss. There are areas of nonspecific white matter hypodensity, which are probably age related or microvascular in nature. Few dots of air near the sella and another in the right facial soft tissues. No acute intracranial hemorrhage or mass-effect. No midline shift. No extra-axial fluid collection. No focal calvarial lesion. Mild bilateral ethmoid sinus mucosal thickening. Remaining visualized paranasal sinuses are clear. No acute intracranial hemorrhage or mass-effect. Dots of intracranial air near the sella, uncertain etiology and significance but perhaps intravascular/iatrogenic. Clinical correlation recommended. Mild bilateral ethmoid sinus mucosal thickening. MACRO: None. Signed by: Shey Morgan 10/18/2024 4:51 PM Dictation workstation: [id number] Assessment & Plan Fall, initial encounter 84-year-old obese male with a past medical history of bladder mass, BPH, GERD, insulin-dependent diabetes mellitus, gout, hypertension, hyperlipidemia, right shoulder pain, and chronic kidney disease with an average baseline creatinine of around 2.5 who presented to the emergency room for generalized weakness followed by a syncopal event. In the ER, patient was found to have sinus bradycardia with hypotension and acute hypoxemic respiratory failure. Blood workup showed elevated BNP, acute on chronic renal failure, metabolic acidosis. Right ankle x-ray showed diffuse soft tissue swelling but no fractures. Also patient was found to have anemia. Syncope-I will admit the patient to the inpatient medical service with telemetry and vital signs monitoring. Unless proven otherwise, the reason of the syncope is most likely secondary to the underlying bradycardia with hypotension and in the setting of the anemia. Cardiology consulted. Patient is on carvedilol 12.5 mg twice a day. I will decrease it and make it 6.25 mg twice a day with holding parameters. order echocardiogram. Monitor closely for any signs or symptoms of fluid overload given the elevated BNP. Check TSH level. On the other hand, I will be holding the nifedipine given the hypotension. Urinalysis has been sent. Pending sample to be given. Anemia-in the setting of an underlying bladder mass that is currently under investigation. I will order anemia panel and reticulocyte count. Monitor closely hemoglobin levels while at the hospital. Transfuse if hemoglobin drop below 7. Acute on chronic renal failure-I would hold on giving IV fluids for now given the significant leg edema. But will also hold on giving Lasix. Consult nephrology. Right ankle swelling-apply ice packs. Rest. Leg elevation if possible. Continue home medications including insulin Lantus 19 units daily. High-dose insulin sliding scale SCDs for DVT prophylaxis. Would hold on giving anticoagulation given the anemia. (This note was generated with voice recognition software and may contain errors including spelling, grammar, syntax and misrecognition of what was dictated, that are not fully corrected) Zana Mathews MD documented in this encounter [facility] Work Phone: 10-18-2024 Emergency department Note HPI Chief Complaint Patient presents with Fall Fall and weakness x 2 weeks. Presents after potential syncopal event. States he is at home when he simply went down. He did not have the strength to get himself back up. Family states this has been a gradual decline over time. Patient denies any chest pain or shortness of breath. Patient has no complaints to me. EMS reported bradycardia, hypotension and hypoxia. Treated with IV fluids and nasal cannula oxygen. Later in ED stay patient denies any black stool or tarry stool. No blood in his stool. No hematuria. No acute blood loss that he is noted. Patient currently working on evaluation of a bladder tumor. History provided by: Patient and EMS personnel Patient History Past Medical History: Diagnosis Date Neuropathy, peripheral, autonomic, idiopathic 02/21/2023 Past Surgical History: Procedure Laterality Date MR HEAD ANGIO WO IV CONTRAST 03/28/2023 MR HEAD ANGIO WO IV CONTRAST 03/28/2023 [facility] MRI MR NECK ANGIO WO IV CONTRAST 03/28/2023 MR NECK ANGIO WO IV CONTRAST 03/28/2023 [facility] MRI OTHER SURGICAL HISTORY 09/26/2019 Appendectomy OTHER SURGICAL HISTORY 09/26/2019 Colonoscopy OTHER SURGICAL HISTORY 09/26/2019 Cataract surgery Family History Problem Relation Name Age of Onset Heart attack Mother Cancer Mother Diabetes type II Other OTHER Breast cancer Other OTHER Heart attack Child Brain cancer Child Social History Tobacco Use Smoking status: Former Current packs/day: 0.00 Types: Cigarettes Quit date: 1988 Years since quittin.0 Passive exposure: Never Smokeless tobacco: Never Vaping Use Vaping status: Never Used Substance Use Topics Alcohol use: Never Drug use: Never Physical Exam ED Triage Vitals [10/18/24 1532] Temperature Heart Rate Respirations BP 37.1 C (98.7 F) (!) 46 20 103/54 Pulse Ox Temp Source Heart Rate Source Patient Position 95 % Oral -- -- BP Location FiO2 (%) -- -- Physical Exam Vitals and nursing note reviewed. Constitutional: General: He is not in acute distress. Appearance: Normal appearance. He is well-developed, well-groomed and normal weight. He is not ill-appearing or toxic-appearing. HENT: Head: Normocephalic. Right Ear: External ear normal. Left Ear: External ear normal. Nose: Nose normal. Mouth/Throat: Lips: [place]. No lesions. Mouth: Mucous membranes are moist. Eyes: General: No scleral icterus. Conjunctiva/sclera: Conjunctivae normal. Pupils: Pupils are equal, round, and reactive to light. Neck: Meningeal: Kernig's sign absent. Cardiovascular: Rate and Rhythm: Normal rate and regular rhythm. Pulses: Dorsalis pedis pulses are 2+ on the right side and 2+ on the left side. Posterior tibial pulses are 2+ on the right side and 2+ on the left side. Heart sounds: Normal heart sounds. Pulmonary: Effort: Pulmonary effort is normal. Breath sounds: Normal breath sounds and air entry. Abdominal: General: Bowel sounds are normal. There is no distension. Palpations: Abdomen is soft. Tenderness: There is no abdominal tenderness. There is no right CVA tenderness, left CVA tenderness or guarding. Musculoskeletal: Right lower leg: No edema. Left lower leg: No edema. Skin: General: Skin is warm. Capillary Refill: Capillary refill takes less than 2 seconds. Findings: No rash. Neurological: General: No focal deficit present. Mental Status: He is alert and oriented to person, place, and time. Cranial Nerves: No cranial nerve deficit or facial asymmetry. Sensory: No sensory deficit. Motor: No weakness. Psychiatric: Attention and Perception: Attention and perception normal. Mood and Affect: Mood and affect normal. Speech: Speech normal. Behavior: Behavior normal. Behavior is cooperative. Thought Content: Thought content normal. Cognition and Memory: Cognition and memory normal. Judgment: Judgment normal. ED Course & MDM Diagnoses as of 10/18/241929 Fall, initial encounter Weakness Syncope, unspecified syncope type Anemia, unspecified type Bradycardia Hypotension, unspecified hypotension type Hypoxia No data recorded [place] Coma Scale Score: 15 (10/18/24 1530 : Ericka Luis RN) Medical Decision Making Presents after potential syncopal event. States he is at home when he simply went down. He did not have the strength to get himself back up. Family states this has been a gradual decline over time. Patient denies any chest pain or shortness of breath. Patient has no complaints to me. EMS reported bradycardia, hypotension and hypoxia. Treated with IV fluids and nasal cannula oxygen. Later in ED stay patient denies any black stool or tarry stool. No blood in his stool. No hematuria. No acute blood loss that he is noted. Patient currently working on evaluation of a bladder tumor. Ddx: Cardiac, pulmonary, metabolic, dehydration, other Will obtain labs and x-ray including CT of the brain, blood cultures and lactic acid for potential sepsis Patient given IV fluids with improvement of his blood pressure. Patient's heart rate remains between the 40s and 50s. Patient's oxygenation improved with nasal cannula. No acute findings were noted by laboratory studies today. Beyond the anemia of uncertain etiology. After evaluation patient started to complain of right hip pain with the concern may be related to the fall therefore additional x-rays were obtained. Read by radiologist show no acute concern. At this point consulted hospitalist who wanted consult with cardiology for admission. Was able to message in Dr. Fay cardiology who would be happy to follow-up with the patient for the bradycardia. Patient admitted under the hospitalist in improved stable condition Amount and/or Complexity of Data Reviewed Labs: ordered. Decision-making details documented in ED Course. Radiology: ordered and independent interpretation performed. Decision-making details documented in ED Course. ECG/medicine tests: ordered and independent interpretation performed. Decision-making details documented in ED Course. Details: Read by myself and attending showing sinus bradycardia with first-degree AV block. Ventricular rate of [address] bpm[address] Normal axis. No ST segment ovation. TX interval of 218 with a QT of 514 Procedure Procedures Waldemar Cox PA-C 10/18/241929 Cosigned by Sanya Shin DO at 10/19/2024 7:44 AM EST Associated attestation - Sanya Shin DO - 10/19/2024 7:44 AM EST This patient was seen by the advanced practice provider. I have personally performed a substantive portion of the encounter. I have seen and examined the patient; agree with the workup, evaluation, MDM, management and diagnosis. The care plan has been discussed. I personally saw the patient and made/approved the management plan and take responsibility for the patient management. History: 84-year-old male presents with syncope at home. Patient states that he was walking and felt very weak and fell to the ground. Was able to get back up because he continued to feel very weak. Has been a progressive decline over his most recent hospital visit. Denies any chest pain, shortness of breath, nausea, vomiting, abdominal pain, urinary symptoms. Exam: Patient appears well nontoxic. Bradycardic. S1-S2 appreciated without murmur. Lungs clear bilaterally. Abdomen soft nontender. No focal neurologic deficit. Bilateral 2-3+ pitting lower extremity edema. MDM: Patient hypertensive upon arrival. Patient also bradycardic. Treated with 1 L of normal saline. Lab work shows worsening acute renal insufficiency. Patient will be admitted for further treatment and evaluation. Diagnosis: 1. Fall 2. Weakness 3. Syncope 4. Bradycardia 5. Hypotension 6. Acute hypoxemic respiratory failure documented in this encounter [facility] Work Phone: 10-18-2024 Physician Emergency department Note HPI Chief Complaint Patient presents with Fall Fall and weakness x 2 weeks. Presents after potential syncopal event. States he is at home when he simply went down. He did not have the strength to get himself back up. Family states this has been a gradual decline over time. Patient denies any chest pain or shortness of breath. Patient has no complaints to me. EMS reported bradycardia, hypotension and hypoxia. Treated with IV fluids and nasal cannula oxygen. Later in ED stay patient denies any black stool or tarry stool. No blood in his stool. No hematuria. No acute blood loss that he is noted. Patient currently working on evaluation of a bladder tumor. History provided by: Patient and EMS personnel Patient History Past Medical History: Diagnosis Date Neuropathy, peripheral, autonomic, idiopathic 02/21/2023 Past Surgical History: Procedure Laterality Date MR HEAD ANGIO WO IV CONTRAST 03/28/2023 MR HEAD ANGIO WO IV CONTRAST 03/28/2023 [facility] MRI MR NECK ANGIO WO IV CONTRAST 03/28/2023 MR NECK ANGIO WO IV CONTRAST 03/28/2023 [facility] MRI OTHER SURGICAL HISTORY 09/26/2019 Appendectomy OTHER SURGICAL HISTORY 09/26/2019 Colonoscopy OTHER SURGICAL HISTORY 09/26/2019 Cataract surgery Family History Problem Relation Name Age of Onset Heart attack Mother Cancer Mother Diabetes type II Other OTHER Breast cancer Other OTHER Heart attack Child Brain cancer Child Social History Tobacco Use Smoking status: Former Current packs/day: 0.00 Types: Cigarettes Quit date: 1988 Years since quittin.0 Passive exposure: Never Smokeless tobacco: Never Vaping Use Vaping status: Never Used Substance Use Topics Alcohol use: Never Drug use: Never Physical Exam ED Triage Vitals [01/25/25 1532] Temperature Heart Rate Respirations BP 37.1 C (98.7 F) (!) 46 20 103/54 Pulse Ox Temp Source Heart Rate Source Patient Position 95 % Oral -- -- BP Location FiO2 (%) -- -- Physical Exam Vitals and nursing note reviewed. Constitutional: General: He is not in acute distress. Appearance: Normal appearance. He is well-developed, well-groomed and normal weight. He is not ill-appearing or toxic-appearing. HENT: Head: Normocephalic. Right Ear: External ear normal. Left Ear: External ear normal. Nose: Nose normal. Mouth/Throat: Lips: [place]. No lesions. Mouth: Mucous membranes are moist. Eyes: General: No scleral icterus. Conjunctiva/sclera: Conjunctivae normal. Pupils: Pupils are equal, round, and reactive to light. Neck: Meningeal: Kernig's sign absent. Cardiovascular: Rate and Rhythm: Normal rate and regular rhythm. Pulses: Dorsalis pedis pulses are 2+ on the right side and 2+ on the left side. Posterior tibial pulses are 2+ on the right side and 2+ on the left side. Heart sounds: Normal heart sounds. Pulmonary: Effort: Pulmonary effort is normal. Breath sounds: Normal breath sounds and air entry. Abdominal: General: Bowel sounds are normal. There is no distension. Palpations: Abdomen is soft. Tenderness: There is no abdominal tenderness. There is no right CVA tenderness, left CVA tenderness or guarding. Musculoskeletal: Right lower leg: No edema. Left lower leg: No edema. Skin: General: Skin is warm. Capillary Refill: Capillary refill takes less than 2 seconds. Findings: No rash. Neurological: General: No focal deficit present. Mental Status: He is alert and oriented to person, place, and time. Cranial Nerves: No cranial nerve deficit or facial asymmetry. Sensory: No sensory deficit. Motor: No weakness. Psychiatric: Attention and Perception: Attention and perception normal. Mood and Affect: Mood and affect normal. Speech: Speech normal. Behavior: Behavior normal. Behavior is cooperative. Thought Content: Thought content normal. Cognition and Memory: Cognition and memory normal. Judgment: Judgment normal. ED Course & MDM Diagnoses as of 10/18/240 Fall, initial encounter Weakness Syncope, unspecified syncope type Anemia, unspecified type Bradycardia Hypotension, unspecified hypotension type Hypoxia No data recorded [place] Coma Scale Score: 15 (10/18/24 1530 : Ericka Luis RN) Medical Decision Making Presents after potential syncopal event. States he is at home when he simply went down. He did not have the strength to get himself back up. Family states this has been a gradual decline over time. Patient denies any chest pain or shortness of breath. Patient has no complaints to me. EMS reported bradycardia, hypotension and hypoxia. Treated with IV fluids and nasal cannula oxygen. Later in ED stay patient denies any black stool or tarry stool. No blood in his stool. No hematuria. No acute blood loss that he is noted. Patient currently working on evaluation of a bladder tumor. Ddx: Cardiac, pulmonary, metabolic, dehydration, other Will obtain labs and x-ray including CT of the brain, blood cultures and lactic acid for potential sepsis Patient given IV fluids with improvement of his blood pressure. Patient's heart rate remains between the 40s and 50s. Patient's oxygenation improved with nasal cannula. No acute findings were noted by laboratory studies today. Beyond the anemia of uncertain etiology. After evaluation patient started to complain of right hip pain with the concern may be related to the fall therefore additional x-rays were obtained. Read by radiologist show no acute concern. At this point consulted hospitalist who wanted consult with cardiology for admission. Was able to message in Dr. Fay cardiology who would be happy to follow-up with the patient for the bradycardia. Patient admitted under the hospitalist in improved stable condition Amount and/or Complexity of Data Reviewed Labs: ordered. Decision-making details documented in ED Course. Radiology: ordered and independent interpretation performed. Decision-making details documented in ED Course. ECG/medicine tests: ordered and independent interpretation performed. Decision-making details documented in ED Course. Details: Read by myself and attending showing sinus bradycardia with first-degree AV block. Ventricular rate of 47 bpm. Normal axis. No ST segment ovation. TX interval of 218 with a QT of 514 Procedure Procedures Waldemar Cox PA-C 10/18/241929 Cosigned by Sanya Shin DO at 10/19/2024 7:44 AM EST Associated attestation - Sanya Shin, - 10/19/2024 7:44 AM EST This patient was seen by the advanced practice provider. I have personally performed a substantive portion of the encounter. I have seen and examined the patient; agree with the workup, evaluation, MDM, management and diagnosis. The care plan has been discussed. I personally saw the patient and made/approved the management plan and take responsibility for the patient management. History: 84-year-old male presents with syncope at home. Patient states that he was walking and felt very weak and fell to the ground. Was able to get back up because he continued to feel very weak. Has been a progressive decline over his most recent hospital visit. Denies any chest pain, shortness of breath, nausea, vomiting, abdominal pain, urinary symptoms. Exam: Patient appears well nontoxic. Bradycardic. S1-S2 appreciated without murmur. Lungs clear bilaterally. Abdomen soft nontender. No focal neurologic deficit. Bilateral 2-3+ pitting lower extremity edema. MDM: Patient hypertensive upon arrival. Patient also bradycardic. Treated with 1 L of normal saline. Lab work shows worsening acute renal insufficiency. Patient will be admitted for further treatment and evaluation. Diagnosis: 1. Fall 2. Weakness 3. Syncope 4. Bradycardia 5. Hypotension 6. Acute hypoxemic respiratory failure [facility] Work Phone: 10-08-2024 History of Present illness Narrative Patient ID: Kitty Vergara is a 84 y.o. male. Procedures The patient was prepped using a Betadine solution. Lidocaine jelly was instilled into the urethra. The flexible cystoscope was sterilely inserted into the urethra and formal cystoscopy performed in a systematic fashion. . For detailed findings of the procedure, please see Dr. Lucia remarks below CIPRO 250MG POBID TIMES 3 DAYS GIVEN PSA 3.08 (10/2022) RENAL US 09/23/2024 IMPRESSION: No hydronephrosis bilaterally. Prominent distention of the urinary bladder. Indeterminate subcentimeter polypoid lesion arising from the right lateral urinary bladder wall. Small urothelial neoplasm can not be excluded. Partial visualization of heterogeneous enlarged prostate. VISUALIZATION POOR. PVR ELEVATED. A LOT OF MUCOUS. DEFINITE ABNORMAL APPEARING MUCOSA BUT NO DEFINITIVE MASS PATIENT ASKING FOR SEDATION FOR BLADDER BX AND FURTHER EVALUATION CR ELEVATED SO CT WITH CONTRAST NOT AN OPTION F/U CYSTO BLADDER BX AND BILATERAL RPG START BACTRIM DS QD documented in this encounter [facility] Work Phone: 10-01-2024 History of Present illness Narrative Subjective Patient ID: Kitty Vergara is a 84 y.o. male. HPI Patient is here to establish for bladder mass. Recent Renal US on 10/18 showed Indeterminate subcentimeter polypoid lesion arising from the right lateral urinary bladder wall. Small urothelial neoplasm can not be excluded. Most recent PSA was 3.08 on 11/16. Patient has CRI and Baseline Cr is around 2.5. ED is chronic. No Hx of UTI. He is Diabetic and takes Insulin Cath placed 09/26/2024 by [facility] ED Review of Systems Constitutional: Negative for chills and fever. HENT: Negative. Eyes: Negative. Respiratory: Negative for cough and shortness of breath. Cardiovascular: Negative for chest pain and leg swelling. Gastrointestinal: Negative for nausea. Endocrine: Negative. Genitourinary: Negative for difficulty urinating. Negative except for documented in HPI Allergic/Immunologic: Negative. Neurological: Alert & oriented X 3 Hematological: Denies blood thinners Psychiatric/Behavioral: Negative. Objective Physical Exam Vitals and nursing note reviewed. Constitutional: General: He is not in acute distress. Appearance: Normal appearance. Pulmonary: Effort: Pulmonary effort is normal. Abdominal: Tenderness: There is no abdominal tenderness. Genitourinary: Comments: Kidneys non palpable bilaterally Bladder non palpable or tender Scrotum no mass, No hydrocele Epididymis- No spermatocele. Non Tender. Testicles: No mass. Atrophy R Urethra: some discharge. De Oliveira in place Penis within normal limits... No lesions. circumcised Prostate - symmetric, no nodules BENIGN Seminal Vesicals: No mass. Sphincter tone: normal De Oliveira draining clear urine Neurological: Mental Status: He is alert. Assessment/Plan Diagnoses and all orders for this visit: Benign prostatic hyperplasia with urinary retention Nocturia Urinary retention Erectile dysfunction, unspecified erectile dysfunction type All available PSA values reviewed, Options discussed. Questions answered. Diet changes for prostate health discussed and educational information given. Pros/Cons of prostate health supplements discussed. Treatment options for LUTS reviewed Continue Flomax-just started last week Add Proscar PATIENT DECLINES TO LEARN CIC Voiding trial today Discussed timed voiding. Discussed fluid and caffeine intake Treatment options for ED reviewed-observe Lifestyle change to help prevent UTIs discussed. Encouraged fluid intake. Renal U/S reviewed-Bladder volume 1200ml F/U Cysto and check PVR-POSSIBLE BLADDER MASS SEEN ON U/S PSA and BMP ordered documented in this encounter [facility] Work Phone: 09-29-2024 History of Present illness Narrative Subjective He is having pain and burning with the catheter Feels like he has to urinate. He smoked a pack per day for 30 years but quit 35 years ago Patient ID: Kitty Vergara is a 84 y.o. male who presents for Follow-up (2 week/Review Labs & Renal US ). HPI He is here for follow-up secondary to chronic kidney disease with a baseline creatinine of about 2-2.4 with underlying diabetes and hypertension Also has a history of NSAID use A renal ultrasound was completed. The right kidney is 10.1 cm with a positive cyst the left kidney is 11.4 cm. There was a calculated volume of 1277 mL in his bladder. There is a lesion in the bladder wall. The prostate is also enlarged. He was notified about this and went to the emergency room. A De Oliveira catheter was inserted. A urinalysis was sent on this. Labs were completed last on the third in the emergency room. At that time urinalysis shows positive glucose trace amount of protein otherwise looks pretty bland lipid panel shows elevated triglycerides although they are much improved magnesium is 1.7 phosphorus 4.5 metabolic panel shows a glucose of 161 electrolytes look pretty normal his BUN is 37 with a creatinine of 2.63 uric acid 5.2 albumin creatinine ratio is 158.5 microalbuminuria medications are reviewed currently on allopurinol Bumex Coreg vitamin D Jardiance gabapentin insulin a PPI blood pressure is 154/82 Review of Systems Cardiovascular: Negative for leg swelling. Genitourinary: Pain with urination Objective Physical Exam Constitutional: Appearance: Normal appearance. HENT: Head: Normocephalic and atraumatic. Right Ear: External ear normal. Left Ear: External ear normal. Nose: Nose normal. Mouth/Throat: Mouth: Mucous membranes are moist. Pharynx: Oropharynx is clear. Eyes: Extraocular Movements: Extraocular movements intact. Conjunctiva/sclera: Conjunctivae normal. Pupils: Pupils are equal, round, and reactive to light. Cardiovascular: Rate and Rhythm: Normal rate and regular rhythm. Pulmonary: Effort: Pulmonary effort is normal. Breath sounds: Normal breath sounds. Abdominal: General: Abdomen is flat. Palpations: Abdomen is soft. Genitourinary: Comments: De Oliveira in place Skin: General: Skin is warm and dry. Neurological: General: No focal deficit present. Mental Status: He is alert and oriented to person, place, and time. Psychiatric: Mood and Affect: Mood normal. Behavior: Behavior normal. 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 Lucia. Will see him Sunday Stop Bumex Recheck labs in 1 month. Call with issues. Chronic kidney disease stage IV with baseline creatinine 2-2.4 Urinary retention requiring De Oliveira catheter Renal cyst Bladder lesion Diabetes mellitus type 2 on insulin, last hemoglobin A1c 7.2 Hypertension History of NSAID use GERD, on PPI Gout Hyperlipidemia Adriana Howell DO 09/29/24 10:07 AM documented in this encounter [facility] Work Phone: 09-11-2024 Evaluation + Plan note Associated Problem(s): 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) Appears that his creatinine is ranging from 2-2.4, he did go up to 2.9 in April however he came back down within his normal ranges, he does not recollect anything that occurred during this time that would have made his creatinine increase, his blood pressure is well-controlled, he is getting better control of his diabetes with hemoglobin A1c of 7.2, will start on SGLT2, he will discontinue use of NSAID, will get renal ultrasound, check urine, check lab work, return to the office in 2 weeks [facility] Work Phone: 09-11-2024 Miscellaneous Notes Associated Problem(s): 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) Appears that his creatinine is ranging from 2-2.4, he did go up to 2.9 in April however he came back down within his normal ranges, he does not recollect anything that occurred during this time that would have made his creatinine increase, his blood pressure is well-controlled, he is getting better control of his diabetes with hemoglobin A1c of 7.2, will start on SGLT2, he will discontinue use of NSAID, will get renal ultrasound, check urine, check lab work, return to the office in 2 weeks Associated Problem(s): Type 2 diabetes mellitus with diabetic polyneuropathy, without long-term current use of insulin Last hemoglobin A1c was 7.2, he has been taking insulin which has helped with better control of his diabetes, I will start Jardiance 10 mg for renal purposes Associated Problem(s): Hypertension Blood pressure is currently well-controlled on carvedilol documented in this encounter [facility] Work Phone: 09-11-2024 Evaluation + Plan note Associated Problem(s): Type 2 diabetes mellitus with diabetic polyneuropathy, without long-term current use of insulin Last hemoglobin A1c was 7.2, he has been taking insulin which has helped with better control of his diabetes, I will start Jardiance 10 mg for renal purposes [facility] Work Phone: 09-11-2024 Evaluation + Plan note Associated Problem(s): Hypertension Blood pressure is currently well-controlled on carvedilol [facility] Work Phone: 09-11-2024 History of Present illness Narrative Subjective Patient ID: Kitty Vergara is a 84 y.o. male who presents for Consult (Referred by Dr. Almanzar) and Chronic Kidney Disease (Stage 4). Being seen in consultation secondary to request of Dr. Almanzar for chronic kidney disease stage IV Recommendations will be communicated via EMR Labs reviewed Hemoglobin A1c 7.2 Glucose 118 Sodium 141, potassium 3.9, chloride 100, bicarb 34 Renal function with BUN of 40 and creatinine of 2.19, GFR is 29, it appears that his creatinine was elevated in 2019 at which time he was 1.36, in 2021 his creatinine increased to 1.6-1.7 and in 2022 he began to go above 2 ranging from 2-2.2, on May 08 his creatinine was 2.91 and over the last couple months has ranged from 2.2-2.4 He states that his blood sugars were difficult to control, he did not want to start insulin injections for a long period of time but has tolerated them now and is getting better control of his blood sugars His blood pressure has been well-controlled He denies any difficulties voiding He does state that he gets up frequently during the night to go to the bathroom however he is also taking Bumex twice a day and frequently forgets to take one of them at suppertime and takes it closer to 9:00 PM He has been using ibuprofen frequently secondary to some tooth pain, he has also used it for other pain management in the past Review of Systems Constitutional: Negative. Respiratory: Negative. Cardiovascular: Negative. Gastrointestinal: Negative. Endocrine: Negative. Genitourinary: Negative. Musculoskeletal: Negative. Skin: Negative. Neurological: Negative. Psychiatric/Behavioral: Negative. Objective Physical Exam Vitals reviewed. Constitutional: Appearance: Normal appearance. HENT: Head: Normocephalic. Cardiovascular: Rate and Rhythm: Normal rate and regular rhythm. Pulmonary: Effort: Pulmonary effort is normal. Breath sounds: Normal breath sounds. Abdominal: Palpations: Abdomen is soft. Musculoskeletal: General: Normal range of motion. Skin: General: Skin is warm and dry. Neurological: Mental Status: He is alert and oriented to person, place, and time. Psychiatric: Mood and Affect: Mood normal. Behavior: Behavior normal. 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.42 Last hemoglobin A1c was 7.2, he has been taking insulin which has helped with better control of his diabetes, I will start Jardiance 10 mg for renal purposes Hyperlipidemia E78.5 Relevant Orders Lipid panel Hypertension - Primary I10 Blood pressure is currently well-controlled on carvedilol 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) E11.22, N18.4 Appears that his creatinine is ranging from 2-2.4, he did go up to 2.9 in April however he came back down within his normal ranges, he does not recollect anything that occurred during this time that would have made his creatinine increase, his blood pressure is well-controlled, he is getting better control of his diabetes with hemoglobin A1c of 7.2, will start on SGLT2, he will discontinue use of NSAID, will get renal ultrasound, check urine, check lab work, return to the office in 2 weeks Relevant Medications empagliflozin (Jardiance) 10 mg Other Relevant Orders US renal complete Albumin-Creatinine Ratio, Urine Random Urinalysis with Reflex Microscopic Uric acid Comprehensive metabolic panel TSH Phosphorus Magnesium LUIZ with Reflex to STEPHANIE Follow Up In Nephrology Chronic kidney disease stage IV with baseline creatinine 2-2.4 Diabetes mellitus type 2 on insulin, last hemoglobin A1c 7.2 Hypertension controlled on carvedilol History of NSAID use GERD, on PPI Gout Hyperlipidemia ERUM Harper DNP 09/11/24 3:00 PM documented in this encounter [facility] Work Phone: 09-11-2024 Instructions ERUM Harper DNP - 09/11/2024 3:00 PM EST Start Jardiance Stop Ibuprofen/NSAID Ultra sound and lab work in 2 weeks documented in this encounter [facility] Work Phone: 09-09-2024 History of Present illness Narrative Subjective Patient ID: Kitty Vergara is a 84 y.o. male who presents for Follow-up (3 MO FU). HPI Diabetes stable on just the Soliqua. A1c is 7.2 doing okay with his diet. Blood pressure is okay on medications. The above are stable, his creatinine is consistently been over 2 for the last year. Will refer to nephrology Lab and office visit in 6 months Review of Systems Constitutional: Negative for fatigue. Eyes: Negative for visual disturbance. Respiratory: Negative for cough, chest tightness and shortness of breath. Cardiovascular: Negative for chest pain and palpitations. Gastrointestinal: Negative for abdominal pain, constipation and diarrhea. Skin: Negative for rash. Neurological: Positive for light-headedness. Negative for headaches. Objective BP 130/84 Pulse 56 Ht 1.778 m (5' 10") Wt 108 kg (238 lb 12.8 oz) SpO2 100% BMI 34.26 kg/m Physical Exam Constitutional: Appearance: Normal appearance. HENT: Head: Normocephalic and atraumatic. Cardiovascular: Rate and Rhythm: Normal rate and regular rhythm. Heart sounds: Normal heart sounds. Pulmonary: Effort: Pulmonary effort is normal. Breath sounds: Normal breath sounds. Skin: General: Skin is warm and dry. Neurological: General: No focal deficit present. Mental Status: He is alert and oriented to person, place, and time. Psychiatric: Mood and Affect: Mood normal. Behavior: Behavior normal. Thought Content: Thought content normal. Judgment: Judgment normal. Assessment/Plan Problem List Items Addressed This Visit ICD-10-CM Type 2 diabetes mellitus with diabetic polyneuropathy, without long-term current use of insulin - Primary E11.42 Relevant Orders CBC Comprehensive Metabolic Panel Hemoglobin A1C Thyroid Stimulating Hormone Magnesium Hypertension I10 Relevant Orders CBC Comprehensive Metabolic Panel Thyroid Stimulating Hormone Magnesium 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) E11.22, N18.4 Relevant Orders Referral to Nephrology documented in this encounter [facility] Work Phone: 07-18-2024 Evaluation + Plan note Associated Problem(s): Chronic right shoulder pain Assessment: Right shoulder pain with osteoarthritis and partial-thickness rotator cuff tears and possibly a focal full-thickness tear. Patient states he has done well status post his most recent Kenalog injection 01/22/24. The pain in his shoulder is starting to get worse. Plan: Continue with activity restrictions to avoid those that aggravate the shoulder. Follow-up in 3 months for reevaluation. X-rays of the right shoulder should be obtained at follow-up. He understands he can follow-up sooner if he is having any discomfort or problems. Under ultrasound control 40 mg of Kenalog were injected into the subacromial space. His pain is such that it was difficult for him to report a lidocaine suppression test. Although, the injection was placed into the subacromial space and he stated that he had the kind of pain he gets when his shoulder is uncomfortable. [facility] Work Phone: 07-18-2024 Miscellaneous Notes Associated Problem(s): Chronic right shoulder pain Assessment: Right shoulder pain with osteoarthritis and partial-thickness rotator cuff tears and possibly a focal full-thickness tear. Patient states he has done well status post his most recent Kenalog injection 01/22/24. The pain in his shoulder is starting to get worse. Plan: Continue with activity restrictions to avoid those that aggravate the shoulder. Follow-up in 3 months for reevaluation. X-rays of the right shoulder should be obtained at follow-up. He understands he can follow-up sooner if he is having any discomfort or problems. Under ultrasound control 40 mg of Kenalog were injected into the subacromial space. His pain is such that it was difficult for him to report a lidocaine suppression test. Although, the injection was placed into the subacromial space and he stated that he had the kind of pain he gets when his shoulder is uncomfortable. documented in this encounter [facility] Work Phone: 07-18-2024 History of Present illness Narrative Assessment/Plan Encounter Diagnoses: Chronic right shoulder pain Chronic right shoulder pain Assessment: Right shoulder pain with osteoarthritis and partial-thickness rotator cuff tears and possibly a focal full-thickness tear. Patient states he has done well status post his most recent Kenalog injection 01/22/24. The pain in his shoulder is starting to get worse. Plan: Continue with activity restrictions to avoid those that aggravate the shoulder. Follow-up in 3 months for reevaluation. X-rays of the right shoulder should be obtained at follow-up. He understands he can follow-up sooner if he is having any discomfort or problems. Under ultrasound control 40 mg of Kenalog were injected into the subacromial space. His pain is such that it was difficult for him to report a lidocaine suppression test. Although, the injection was placed into the subacromial space and he stated that he had the kind of pain he gets when his shoulder is uncomfortable. Subjective Patient ID: Kitty Vergara is a 84 y.o. male. 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 He has some moderate arthritis of the right shoulder. He is about 6 months status post his last cortisone injection. He benefits from this greatly and noted that recently his shoulder has been more symptomatic. He is now taking insulin for his diabetes. He wishes to proceed forward with a booster subacromial injection. OBJECTIVE: ORTHO EXAM Right shoulder: Inspection: Skin healthy to gross inspection No ecchymosis, no edema, no gross atrophy Palpation: Acromioclavicular joint minimal tenderness Biceps tendon/ groove mild tenderness Anterior Acromial Bursal Area moderate tenderness Cervical spine minimal tenderness ROM: Forward Flexion 140 degrees active then some pain to 170 External Rotation 50 degrees at 90 degrees abduction Internal Rotation 60 degrees at 90 degrees abduction Strength: 4+/5 Supraspinatus isolation- resisted elevation 5 -/5 Infraspinatus isolation- ER 5 -/5 Subscapularis- IR Negative lift off test Negative Spurling s test Positive Neer and Hawking s test Negative Speed's test Negative Inferior Sulcus Negative Anterior Apprehension Full unrestricted motion at Elbow/Wrist/Hand Neurovascular exam normal distally IMAGE RESULTS: Point of Care Ultrasound These images are not reportable by radiology and will not be interpreted by Radiologists. ULTRASOUND Procedures Orders Placed This Encounter Point of Care Ultrasound documented in this encounter [facility] Work Phone: 06-16-2024 History of Present illness Narrative Subjective Patient ID: Kitty Vergara is a 83 y.o. male who presents for Follow-up (2 week check up hypoglycemia). HPI No more lows. Off all pills for his diabetes. Only taking 15 mg of Soliqua daily. For the most part his blood sugars in the first week were between 150 and 170. They may be creeping up a little bit into the high 100s. Some of that could be diet. New goal for his A1c is 8. Continue Soliqua 15 units daily for now. If he notices consistently over 200 he will call and increase the dose. Lab and office visit 3 months Review of Systems Constitutional: Negative for fatigue. Respiratory: Negative for shortness of breath. Cardiovascular: Negative for chest pain and palpitations. Gastrointestinal: Negative for nausea. Endocrine: Negative for cold intolerance, heat intolerance, polydipsia and polyuria. Neurological: Negative for dizziness, light-headedness and headaches. Objective BP 126/62 Pulse 66 Ht 1.778 m (5' 10") Wt 108 kg (237 lb 6.4 oz) SpO2 99% BMI 34.06 kg/m Physical Exam Constitutional: Appearance: Normal appearance. Skin: General: Skin is warm and dry. Neurological: General: No focal deficit present. Mental Status: He is alert and oriented to person, place, and time. Psychiatric: Mood and Affect: Mood normal. Behavior: Behavior normal. Judgment: Judgment normal. Assessment/Plan Problem List Items Addressed This Visit ICD-10-CM Type 2 diabetes mellitus with diabetic polyneuropathy, without long-term current use of insulin (Multi) E11.42 Relevant Medications blood sugar diagnostic (Advanced Gluc Meter Test Strip) strip Other Relevant Orders Comprehensive Metabolic Panel Hemoglobin A1C documented in this encounter [facility] Work Phone: 06-05-2024 Evaluation + Plan note Associated Problem(s): Primary osteoarthritis of right shoulder Assessment: Ongoing mild to moderate right shoulder pain. Today's a good day but recently he has had some bad days. His diabetes has been out of control such that he was in the emergency room with hypoglycemia. He recently switched to insulin. Plan: Voltaren gel use as directed. Nonsteroidal anti-inflammatories [id number]. He will check with his clinical sales consultant regarding these as he is on a antihypertensive. If his diabetes becomes more stable 1 could consider a repeat of his subacromial or intra-articular cortisone injection. Gentle physical therapy range of motion and strengthening would be appropriate he already has a home exercise program. He will reintegrate his home exercise program. [facility] Work Phone: 06-05-2024 Miscellaneous Notes Associated Problem(s): Primary osteoarthritis of right shoulder Assessment: Ongoing mild to moderate right shoulder pain. Today's a good day but recently he has had some bad days. His diabetes has been out of control such that he was in the emergency room with hypoglycemia. He recently switched to insulin. Plan: Voltaren gel use as directed. Nonsteroidal anti-inflammatories [id number]. He will check with his clinical sales consultant regarding these as he is on a antihypertensive. If his diabetes becomes more stable 1 could consider a repeat of his subacromial or intra-articular cortisone injection. Gentle physical therapy range of motion and strengthening would be appropriate he already has a home exercise program. He will reintegrate his home exercise program. 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 Today's a good day but recently he has had some bad days. His diabetes has been out of control such that he was in the emergency room with hypoglycemia. He recently switched to insulin. Plan: Voltaren gel use as directed. Nonsteroidal anti-inflammatories [id number]. He will check with his clinical sales consultant regarding these as he is on a antihypertensive. If his diabetes becomes more stable 1 could consider a repeat of his subacromial or intra-articular cortisone injection. Gentle physical therapy range of motion and strengthening would be appropriate he already has a home exercise program. He will reintegrate his home exercise program. Subjective Patient ID: Kitty Vergara is a 83 y.o. male. Chief Complaint: Pain of the Right Shoulder (X-ray- Today/Last inj 01-22-24) Last Surgery: No surgery found Last Surgery Date: No surgery found HPI 83-year-old with right hip arthritis. In December we injected his glenohumeral joint and he has had good relief since. He comes in today stating he is doing activities of daily living without significant pain. He relates changing his tire recently and this aggravated his shoulder. I did advise him not to perform this type of physically vigorous activity. 06/05/2024-he states that he gets achy pain if he leans against his shoulder such as when he is driving or watching TV. Sometimes he has pain at night. The Voltaren gel helps him. Intermittently he has been taking nonsteroidal anti-inflammatories he says Motrin. He is not trying to lift heavy objects anymore. His range of motion is relatively unaffected. OBJECTIVE: ORTHO EXAM Right shoulder: Inspection: Skin healthy to gross inspection No ecchymosis, no edema, no gross atrophy Palpation: Acromioclavicular joint minimal tenderness Biceps tendon/ groove minimal tenderness Anterior Acromial Bursal Area minimal tenderness Cervical spine no tenderness ROM: Forward Flexion 140 degrees active External Rotation 65 degrees at 90 degrees abduction Internal Rotation 65 degrees at 90 degrees abduction He has some mild crepitation with internal/external rotation with his arm at the side. Strength: 5 -/5 Supraspinatus isolation- resisted elevation 5 -/5 Infraspinatus isolation- ER 5/5 Subscapularis- IR Negative lift off test Negative Spurling s test Positive Neer and Hawking s test Negative Speed's test Negative Inferior Sulcus Negative Anterior Apprehension Full unrestricted motion at Elbow/Wrist/Hand Neurovascular exam normal distally IMAGE RESULTS: Point of Care Ultrasound These images are not reportable by radiology and will not be interpreted by Radiologists. ULTRASOUND DIAGNOSTIC ULTRASOUND FINAL REPORT: Right SHOULDER Provider: Kapil Orozco MD Date of Exam: Today Procedure: Ultrasound, extremity, nonvascular, real-time, COMPLETE, anatomic specific. Site: SHOULDER Indication: SHOULDER PAIN Technique: B-Mode Ultrasound Examination performed using 8-13 MHz linear transducer with [employer] STUDY TYPE: 1. ULTRASOUND EXTREMITY INCLUDING BUT NOT LIMITED TO SHOULDER MUSCLE, TENDONS, LIGAMENTS, FATTY TISSUES, SUBCUTANEOUS TISSUES AND OTHER SOFT TISSUE STRUCTURES SUCH ABSCESSES OR FREE FLUID ACCUMULATION WITHIN THE PRIMARY JOINT WELL ADJACENT JOINTS. 2. REAL TIME WITH IMAGE DOCUMENTATION 3. NON-VASCULAR 4. COMPLETE STUDY WHICH INCLUDES A THOROUGH EVALUATION OF THE SHOULDER MUSCLE, TENDONS, LIGAMENTS, FATTY TISSUES, SUBCUTANEOUS TISSUES AND OTHER SOFT TISSUE STRUCTURES SUCH ABSCESSES OR FREE FLUID ACCUMULATION WITHIN THE PRIMARY JOINT WELL ADJACENT JOINTS. Live ultrasound was performed of the patient s SHOULDER and PERMANENTLY documented. This is a thorough and complete evaluation of a specific anatomic region specifically the SHOULDER. PERMANENT Image documentation was performed. This is the complete and final ultrasound report of the patient's SHOULDER. The patient was positioned in order to optimize the ultrasound evaluation of the SHOULDER. Ultrasound gel was used as a conductive medium in order to both transmit and receive ultrasonic signals that characterize the soft tissues. . I personally performed the ultrasound and reviewed the findings. These show: Findings: SHOULDER Nola-articular evaluation: Live ultrasound was performed of the patient's SHOULDER that shows partial possible full of the supraspinatus and infraspinatus tendons with the deltoid muscle fibers showing normal striations. There was mild sub acromial effusion. Evaluation of the subscapularis with the arm in external rotation showed an intact and normal appearing subscapularis tendon. Joint Evaluation: The biceps tendon was visualized within the bicipital groove. Changes consistent with glenohumeral arthritis are seen. Procedures Orders Placed This Encounter XR shoulder right 2+ views Point of Care Ultrasound documented in this encounter [facility] Work Phone: 05-29-2024 Hospital Discharge instructions Sanya Shin DO - 05/29/2024 2:22 PM EDT Changes in your medication: Please STOP taking 4 mg of glimepiride twice a day and switch to 2 mg twice a day. A new prescription was sent to the pharmacy. Please STOP taking 15 units of insulin injection and switch to 7 units once daily. Call Dr. Almanzar office first thing next week and discuss changes so they can be switched at the pharmacy. The following attachments cannot be sent through Care Everywhere.Low blood sugar in people with diabetes ([place]i)Hypokalemia Discharge Instructions ([place]i)documented in this encounter [facility] Work Phone: 05-08-2024 History of Present illness Narrative Subjective Patient ID: Kitty Vergara is a 83 y.o. male who presents for Follow-up (3 mo). HPI Today's lab work is not back yet, his kidney function is certainly not gotten better with better control of his blood sugar. Stop Jardiance Start Soliqua. Prescription written for 30 units. Will keep him on level units at the beginning to make sure he tolerates it. Started 15 probably only go to 20. Office visit set for 1 month He will call when he gets the sleep refill to schedule a nurse visit for the shots. If his kidney function did not improve with these changes, will refer to renal. Blood pressure stable on medication. Heartburn stable on [id number] medication. Review of Systems Constitutional: Negative for fatigue. Respiratory: Negative for shortness of breath. Cardiovascular: Negative for chest pain and palpitations. Neurological: Positive for light-headedness. Objective BP 124/64 Pulse 68 Ht 1.778 m (5' 10") Wt 105 kg (232 lb) SpO2 98% BMI 33.29 kg/m Physical Exam Constitutional: Appearance: Normal appearance. Skin: General: Skin is warm and dry. Neurological: General: No focal deficit present. Mental Status: He is alert and oriented to person, place, and time. Psychiatric: Mood and Affect: Mood normal. Behavior: Behavior normal. Judgment: Judgment normal. Assessment/Plan Problem List Items Addressed This Visit ICD-10-CM Chronic GERD K21.9 Relevant Medications omeprazole OTC (PriLOSEC OTC) 20 mg EC tablet Type 2 diabetes mellitus with diabetic polyneuropathy, without long-term current use of insulin (Multi) - Primary E11.42 Relevant Medications insulin glargine-lixisenatide (Soliqua 100/33) 100 unit-33 mcg/mL insulin pen pen needle, diabetic 31 gauge x 5/16" needle Hypertension I10 Chronic renal impairment, stage 3b (Multi) N18.32 documented in this encounter [facility] Work Phone: 05-08-2024 Instructions Daniel Almanzar MD - 05/08/2024 10:40 AM EDT Stop Jardiance. Call when you get the Soliqua filled. We will schedule you for a nurse visit to learn how to do the shot. documented in this encounter [facility] Work Phone: 03-20-2024 Telephone encounter Note Pt called in stating that Gabapentin 300mg was called into the wrong pharmacy at his appointment today. He would like it to go to the [facility] in [place]. Please advise [facility] 03-20-2024 Miscellaneous Notes Pt called in stating that Gabapentin 300mg was called into the wrong pharmacy at his appointment today. He would like it to go to the [facility] in [place]. Please advise documented in this encounter [facility] 03-20-2024 History of Present illness Narrative Images from the original note were not included. Subjective Kitty Vergara presents to [facility] for a follow up appointment. Since the last visit, Kitty Vergara states the pain has been about the same. Current pain intensity is 0 on a scale of 0-10. Pain located in the bilateral LE below the knees. Pain described as numb, tingling, burning, sharp. Currently, the symptoms do not interfere with activities of daily living (ADLs). Pain is exacerbated by at night. Pain is mitigated in the morning. The medications are effective. The patient states the last dose of gabapentin was taken this morning. Patient Entered Questionnaires PROMIS Score Percentiles 04/06/2023 Physical Health Physical Function Percentile 14 Pain Interference Percentile 2 Percentiles provide an indication of how the patient's score ranks in relation to the general population. Higher percentile rankings indicate better function/quality of life. 50th percentile is the average of the general population and indicates half of respondents had a worse score. > 31st percentile is within normal limits or better * < 31st percentile is at least SD worse than population, which may be clinically relevant < 16th percentile is at least 1 SD worse than population and warrants attention Review of Systems Constitutional: (-) Weight Gain (-) Weight Loss (+) Fatigue Cardiovascular: (-) hx heart surgery (-) Pacemaker Respiratory: (+) Shortness of Breath (+) Cough (+) Snoring Gastrointestinal: (-) Incontinence (-) Diarrhea (-) Constipation (-) Nausea/Vomiting Endocrine: (-) Thyroid Disorder (+) Diabetes Hematologic: (+) Prolonged Bleeding (+) Easy Bruising Genitourinary: (-) Incontinence (-) Frequency (+) Urinary Urgency Skin: (-) Open sores/wound Neurologic: (-) Headache (-) Double Vision Psychiatric: (-) Depression (-) Anxiety Chief Complaint Patient presents with: Follow Up Refill Request Physical Examination Pulse 52 Wt 242 lb (109.8kg) SpO2 98% General:well appearing and alert Skin: Skin color, texture, turgor normal, no rashes or lesions HEENT: normal Cardiovascular: Regular, rate and rhythm Lungs: Normal respiratory rate and rhythm, unlabored on room air Neurological: Mental Status: alert Sensory: Sensation was diminished to light touch in LE. Gait: Antalgic. Assessment Assessment : Patient presents for a follow up. He is accompanied with his Patient has a hx of diabetic neuropathy and experiencing numbness in the lower extremities from the knee down to the feet. He will need refills on the gabapentin He reports no new issues Encounter Diagnosis ICD-10-CM 1. Diabetic peripheral neuropathy (HCC) E11.42 gabapentin (NEURONTIN) 300 mg capsule 04/06/2023 PROMIS CAT Pain Interference PROMIS Pain Interference T-Score (range: 10 - 90) 71 (severe) PROMIS Pain Interference Percentile 2 PROMIS Adult Short Form-Global Health Score (Mental) Incomplete OARRS Report: Reviewed: The patient's OARRS report was reviewed and is consistent with the reported medication use. Plan Injection history was reviewed. Medication use and compliance were reviewed. 1. Continue medication management through the [facility] 2. The following approved medication requests have been transmitted electronically. Requested Prescriptions Signed Prescriptions Disp Refills gabapentin (NEURONTIN) 300 mg capsule 180 capsule 3 Sig: Take 1 capsule by mouth two times a day for 90 days. 3. Interventional procedure options discussed. none 4) F/U in x1 year The level of medical decision making for this encounter was low level. I spent a total of 20 minutes on the date of the service which included preparing to see the patient, [id number] patient care, completing clinical documentation, performing a medically appropriate examination, and ordering medications, tests, or procedures. 1. This document has been created with the use of voice recognition technology. It may contain inaccuracies: (e.g. misspellings, inaccurate syntax or word sense) that have escaped review. 2. The physician, nursing staff and medical assistants are a major part of YOUR TREATMENT TEAM and will be handling your phone calls and inquiries, if any. Unless explicitly told otherwise at the time of your office visit, your study results and ensuing treatment plans will be discussed during your follow-up appointment. If you do not have a follow-up appointment and wish to discuss any issues, please set up an appointment. 3. It is my practice to not fill disability or any other insurance-related forms/documentation. All of the office notes, study results, and other pertinent documentation generated as part of your evaluation will be available to you and to your Primary Care Physician (PCP). Use of this material to complete such forms will be at the discretion of your PCP/referring physician. The above plan and management options were discussed at length with patient. Patient is in agreement with the above and verbalized understanding. Mary Junior APRN, CNP March 20, 2024 documented in this encounter [facility] 03-20-2024 Note HNO ID: [id number] Author: MARY JUNIOR APRN.CNP Service: ? Author Type: Nurse Practitioner Type: Progress Notes Filed: 03/22/2024 19:14 Note Text: Subjective Kitty Vergara presents to [facility] for a follow up appointment. Since the last visit, Kitty Vergara states the pain has been about the same. Current pain intensity is 0 on a scale of 0-10. Pain located in the bilateral LE below the knees. Pain described as numb, tingling, burning, sharp. Currently, the symptoms do not interfere with activities of daily living (ADLs). Pain is exacerbated by at night. Pain is mitigated in the morning. The medications are effective. The patient states the last dose of gabapentin was taken this morning. Patient Entered Questionnaires PROMIS Score Percentiles 04/06/2023 Physical Health Physical Function Percentile 14 Pain Interference Percentile 2 Percentiles provide an indication of how the patient's score ranks in relation to the general population. Higher percentile rankings indicate better function/quality of life. 50th percentile is the average of the general population and indicates half of respondents had a worse score. > 31st percentile is within normal limits or better * < 31st percentile is at least ? SD worse than population, which may be clinically relevant < 16th percentile is at least 1 SD worse than population and warrants attention Review of Systems Constitutional: (-) Weight Gain (-) Weight Loss (+) Fatigue Cardiovascular: (-) hx heart surgery (-) Pacemaker Respiratory: (+) Shortness of Breath (+) Cough (+) Snoring Gastrointestinal: (-) Incontinence (-) Diarrhea (-) Constipation (-) Nausea/Vomiting Endocrine: (-) Thyroid Disorder (+) Diabetes Hematologic: (+) Prolonged Bleeding (+) Easy Bruising Genitourinary: (-) Incontinence (-) Frequency (+) Urinary Urgency Skin: (-) Open sores/wound Neurologic: (-) Headache (-) Double Vision Psychiatric: (-) Depression (-) Anxiety Chief Complaint Patient presents with: Follow Up Refill Request Physical Examination Pulse 52 Wt 242 lb (109.8kg) SpO2 98% General:well appearing and alert Skin: Skin color, texture, turgor normal, no rashes or lesions HEENT: normal Cardiovascular: Regular, rate and rhythm Lungs: Normal respiratory rate and rhythm, unlabored on room air Neurological: Mental Status: alert Sensory: Sensation was diminished to light touch in LE. Gait: Antalgic. Assessment Assessment : Patient presents for a follow up. He is accompanied with his Patient has a hx of diabetic neuropathy and experiencing numbness in the lower extremities from the knee down to the feet. He will need refills on the gabapentin He reports no new issues Encounter Diagnosis ICD-10-CM 1. Diabetic peripheral neuropathy (HCC) E11.42 gabapentin (NEURONTIN) 300 mg capsule 04/06/2023 PROMIS CAT Pain Interference PROMIS Pain Interference T-Score (range: 10 - 90) 71 (severe) PROMIS Pain Interference Percentile 2 PROMIS Adult Short Form-Global Health Score (Mental) Incomplete OARRS Report: Reviewed: The patient's OARRS report was reviewed and is consistent with the reported medication use. Plan Injection history was reviewed. Medication use and compliance were reviewed. 1. Continue medication management through the [facility] 2. The following approved medication requests have been transmitted electronically. Requested Prescriptions Signed Prescriptions Disp Refills gabapentin (NEURONTIN) 300 mg capsule 180 capsule 3 Sig: Take 1 capsule by mouth two times a day for 90 days. 3. Interventional procedure options discussed. none 4) F/U in x1 year The level of medical decision making for this encounter was low level. I spent a total of 20 minutes on the date of the service which included preparing to see the patient, [id number] patient care, completing clinical documentation, performing a medically appropriate examination, and ordering medications, tests, or procedures. 1. This document has been created with the use of voice recognition technology. It may contain inaccuracies: (e.g. misspellings, inaccurate syntax or word sense) that have escaped review. 2. The physician, nursing staff and medical assistants are a major part of YOUR TREATMENT TEAM and will be handling your phone calls and inquiries, if any. Unless explicitly told otherwise at the time of your office visit, your study results and ensuing treatment plans will be discussed during your follow-up appointment. If you do not have a follow-up appointment and wish to discuss any issues, please set up an appointment. 3. It is my practice to not fill disability or any other insurance-related forms/documentation. All of the office notes, study results, and other pertinent documentation generated as part of your evaluation will (more content not included)... [facility] 03-05-2024 Evaluation + Plan note Associated Problem(s): Chronic right shoulder pain Assessment: Right shoulder pain with osteoarthritis and partial-thickness rotator cuff tears and possibly a focal full-thickness tear. Patient states he has done well status post his most recent Kenalog injection 01/22/24. The pain in his shoulder is starting to get a little bit worse. Plan: Continue with activity restrictions to avoid those that aggravate the shoulder. Follow-up in 3 months for reevaluation. X-rays of the right shoulder should be obtained at follow-up. He understands he can follow-up sooner if he is having any discomfort or problems. [facility] Work Phone: 03-05-2024 Miscellaneous Notes Associated Problem(s): Chronic right shoulder pain Assessment: Right shoulder pain with osteoarthritis and partial-thickness rotator cuff tears and possibly a focal full-thickness tear. Patient states he has done well status post his most recent Kenalog injection 01/22/24. The pain in his shoulder is starting to get a little bit worse. Plan: Continue with activity restrictions to avoid those that aggravate the shoulder. Follow-up in 3 months for reevaluation. X-rays of the right shoulder should be obtained at follow-up. He understands he can follow-up sooner if he is having any discomfort or problems. documented in this encounter [facility] Work Phone: 03-04-2024 History of Present illness Narrative Assessment/Plan Encounter Diagnoses: Primary osteoarthritis of right shoulder Chronic right shoulder pain Assessment: Right shoulder pain with osteoarthritis and partial-thickness rotator cuff tears and possibly a focal full-thickness tear. Patient states he has done well status post his most recent Kenalog injection 01/22/24. The pain in his shoulder is starting to get a little bit worse. Plan: Continue with activity restrictions to avoid those that aggravate the shoulder. Follow-up in 3 months for reevaluation. X-rays of the right shoulder should be obtained at follow-up. He understands he can follow-up sooner if he is having any discomfort or problems. Subjective Patient ID: Kitty Vergara is a 83 y.o. male. Chief Complaint: RIGHT SHOULDER PAIN Last Surgery: No surgery found Last Surgery Date: No surgery found HPI 83-year-old who is not interested in surgery for his shoulders and he has some risk factors not least of which is his diabetes mellitus which is poorly controlled. Comes in today for evaluation of his right shoulder. He has had previous cortisone injections and these have been very successful for him. He wants to consider another cortisone injection. 03/04/24-comes in today stating that the cortisone injection delivered on 01/22/2024 is beginning to wear off somewhat. Nevertheless, he is doing well with the shoulder and does not wish to have cortisone injection today. We spoke about other alternatives including total joint arthroplasty but presently he is not clinically or symptomatically warranting this. OBJECTIVE: ORTHO EXAM Right shoulder: Inspection: Skin healthy to gross inspection No ecchymosis, no edema, no gross atrophy Palpation: Acromioclavicular joint minimal tenderness Biceps tendon/ groove minimal tenderness Anterior Acromial Bursal Area mild tenderness Cervical spine no tenderness ROM: Forward Flexion 160 degrees active External Rotation 80 degrees at 90 degrees abduction Internal Rotation 80 degrees at 90 degrees abduction Strength: 5/5 Supraspinatus isolation- resisted elevation 5 -/5 Infraspinatus isolation- ER 5/5 Subscapularis- IR Negative lift off test Negative Spurling s test Mildly positive Neer and Hawking s test Negative Speed's test Negative Inferior Sulcus Negative Anterior Apprehension Full unrestricted motion at Elbow/Wrist/Hand Neurovascular exam normal distally IMAGE RESULTS: XR shoulder right 2+ views Narrative: Interpreted By: Sol Martinez, STUDY: XR SHOULDER RIGHT 2+ VIEWS 01/22/2024 4:12 pm INDICATION: Signs/Symptoms:pain COMPARISON: 08/28/2023 ACCESSION NUMBER(S): [id number] ORDERING CLINICIAN: KAPIL OROZCO TECHNIQUE: Three views of right shoulder are performed. FINDINGS: The acromioclavicular joint space is narrowed with mild osteophytosis of the distal clavicle and anterior acromion. There is mild to moderate narrowing of the glenohumeral joint. There are degenerative subchondral cysts within the humeral head. Mild osteophytosis of the humeral head is noted as well. There is no fracture, dislocation, or bony destruction. 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 Signed by: Sol Martinez 01/26/2024 9:08 AM Dictation workstation: [id number] ULTRASOUND none Procedures No orders of the defined types were placed in this encounter. documented in this encounter [facility] Work Phone: 02-06-2024 History of Present illness Narrative Subjective Patient ID: Kitty Vergara is a 83 y.o. male who presents for Follow-up ([facility]). HPI Blood pressure stable on medication For blood sugars he is doing okay with his diet weight is up a couple of pounds, but the A1c is down to 7.8. Creatinine level is up, so he will work on the fluids, but will see how it goes with Jardiance. Increase Jardiance to 25 mg daily Office visit 3 months Review of Systems Constitutional: Negative for fatigue. Respiratory: Negative for shortness of breath. Cardiovascular: Negative for chest pain and palpitations. Genitourinary: Negative for dysuria and frequency. Objective BP 128/54 Pulse 52 Ht 1.778 m (5' 10") Wt 110 kg (242 lb 4.8 oz) SpO2 100% BMI 34.77 kg/m Physical Exam Constitutional: Appearance: Normal appearance. HENT: Head: Normocephalic and atraumatic. Cardiovascular: Rate and Rhythm: Normal rate and regular rhythm. Heart sounds: Normal heart sounds. Pulmonary: Effort: Pulmonary effort is normal. Breath sounds: Normal breath sounds. Skin: General: Skin is warm and dry. Neurological: General: No focal deficit present. Mental Status: He is alert and oriented to person, place, and time. Psychiatric: Mood and Affect: Mood normal. Behavior: Behavior normal. Thought Content: Thought content normal. Judgment: Judgment normal. Assessment/Plan Problem List Items Addressed This Visit ICD-10-CM Type 2 diabetes mellitus with diabetic polyneuropathy, without long-term current use of insulin (Multi) E11.42 Relevant Medications empagliflozin (Jardiance) 25 mg Other Relevant Orders Comprehensive Metabolic Panel Hemoglobin A1C Hypertension - Primary I10 Chronic renal impairment, stage 3b (Multi) N18.32 documented in this encounter [facility] Work Phone: 01-22-2024 Evaluation + Plan note Associated Problem(s): Chronic right shoulder pain Assessment: Right shoulder pain with osteoarthritis and partial-thickness rotator cuff tears and possibly a focal full-thickness tear. Patient states he has done well status post his most recent Kenalog injection from 08/28/2023 he states that the injection has worn off and he is starting to have pain once again. He has diabetes which is difficult to control. He has other medical issues which make him a high risk surgical candidate. Plan: Continue with activity restrictions to avoid those that aggravate the shoulder. Under ultrasound control 40 mg of Kenalog was injected into the subacromial space. Patient had an excellent lidocaine suppression stating that most if not all of his pain resolved. Follow-up in 6-8 for reevaluation. He understands he can follow-up sooner if he is having any discomfort or problems. He will be very careful with his diet over the next 3 to 7 days. He will check his sugars little bit more frequently and if he has any issues with regards to elevated glucose he will call his medical doctor. [facility] Work Phone: 01-22-2024 Miscellaneous Notes Associated Problem(s): Chronic right shoulder pain Assessment: Right shoulder pain with osteoarthritis and partial-thickness rotator cuff tears and possibly a focal full-thickness tear. Patient states he has done well status post his most recent Kenalog injection from 08/28/2023 he states that the injection has worn off and he is starting to have pain once again. He has diabetes which is difficult to control. He has other medical issues which make him a high risk surgical candidate. Plan: Continue with activity restrictions to avoid those that aggravate the shoulder. Under ultrasound control 40 mg of Kenalog was injected into the subacromial space. Patient had an excellent lidocaine suppression stating that most if not all of his pain resolved. Follow-up in 6-8 for reevaluation. He understands he can follow-up sooner if he is having any discomfort or problems. He will be very careful with his diet over the next 3 to 7 days. He will check his sugars little bit more frequently and if he has any issues with regards to elevated glucose he will call his medical doctor. documented in this encounter [facility] Work Phone: 01-22-2024 History of Present illness Narrative Associated Order(s): L Inj/Asp: R subacromial bursa Post-Procedure Diagnose(s): Primary osteoarthritis of right shoulder Assessment/Plan Encounter Diagnoses: Primary osteoarthritis of right shoulder Chronic right shoulder pain Assessment: Right shoulder pain with osteoarthritis and partial-thickness rotator cuff tears and possibly a focal full-thickness tear. Patient states he has done well status post his most recent Kenalog injection from 08/28/2023 he states that the injection has worn off and he is starting to have pain once again. He has diabetes which is difficult to control. He has other medical issues which make him a high risk surgical candidate. Plan: Continue with activity restrictions to avoid those that aggravate the shoulder. Under ultrasound control 40 mg of Kenalog was injected into the subacromial space. Patient had an excellent lidocaine suppression stating that most if not all of his pain resolved. Follow-up in -8 for reevaluation. He understands he can follow-up sooner if he is having any discomfort or problems. He will be very careful with his diet over the next 3 to 7 days. He will check his sugars little bit more frequently and if he has any issues with regards to elevated glucose he will call his medical doctor. Subjective Patient ID: Kitty Vergara is a 83 y.o. male. Chief Complaint: Pain of the Right Shoulder Last Surgery: No surgery found Last Surgery Date: No surgery found HPI 83-year-old who is not interested in surgery for his shoulders and he has some risk factors not least of which is his diabetes mellitus which is poorly controlled. Comes in today for evaluation of his right shoulder. He has had previous cortisone injections and these have been very successful for him. He wants to consider another cortisone injection. OBJECTIVE: ORTHO EXAM Right shoulder: Inspection: Skin healthy to gross inspection No ecchymosis, no edema, no gross atrophy Palpation: Acromioclavicular joint minimal tenderness Biceps tendon/ groove minimal tenderness Anterior Acromial Bursal Area moderate tenderness Cervical spine no tenderness ROM: Forward Flexion 150 degrees active External Rotation 80 degrees at 90 degrees abduction Internal Rotation 80 degrees at 90 degrees abduction Strength: 5/5 Supraspinatus isolation- resisted elevation 5 -/5 Infraspinatus isolation- ER 5/5 Subscapularis- IR Negative lift off test Negative Spurling s test Mildly positive Neer and Hawking s test Negative Speed's test Negative Inferior Sulcus Negative Anterior Apprehension Full unrestricted motion at Elbow/Wrist/Hand Neurovascular exam normal distally IMAGE RESULTS: Point of Care Ultrasound These images are not reportable by radiology and will not be interpreted by Radiologists. ULTRASOUND none L Inj/Asp: R subacromial bursa on 01/22/2024 5:25 PM Indications: pain Details: ultrasound-guided anterior approach Medications: 2.5 mg triamcinolone acetonide 40 mg/mL Procedure, treatment alternatives, risks and benefits explained, specific risks discussed. Immediately prior to procedure a time out was called to verify the correct patient, procedure, equipment, business support professional and site/side marked as required. Patient was prepped and draped in the usual sterile fashion. Orders Placed This Encounter Point of Care Ultrasound XR shoulder right 2+ views documented in this encounter [facility] Work Phone: 12-07-2023 History of Present illness Narrative Subjective Patient ID: Kitty Vergara is a 83 y.o. male who presents for Follow-up. HPI Blood pressure is better on the Jardiance. Blood sugars not greatly better on the Jardiance, but he has not had any troubles with the medication he is down 9 pounds. He is doing well with the medication. He is eating a little bit more popcorn, but he is really made big changes in his diet otherwise. Continue the same dose for now Lab and office visit in 2 months Review of Systems Constitutional: Negative for fatigue. Respiratory: Negative for shortness of breath. Cardiovascular: Negative for chest pain, palpitations and leg swelling. Gastrointestinal: Negative for nausea. Musculoskeletal: Positive for arthralgias. Neurological: Negative for dizziness and headaches. Objective BP 118/70 Pulse 95 Ht 1.778 m (5' 10") Wt 109 kg (240 lb 8 oz) SpO2 95% BMI 34.51 kg/m Physical Exam Constitutional: Appearance: Normal appearance. HENT: Head: Normocephalic and atraumatic. Cardiovascular: Rate and Rhythm: Normal rate and regular rhythm. Heart sounds: Normal heart sounds. Pulmonary: Effort: Pulmonary effort is normal. Breath sounds: Normal breath sounds. Skin: General: Skin is warm and dry. Neurological: General: No focal deficit present. Mental Status: He is alert and oriented to person, place, and time. Psychiatric: Mood and Affect: Mood normal. Behavior: Behavior normal. Thought Content: Thought content normal. Judgment: Judgment normal. Assessment/Plan Problem List Items Addressed This Visit ICD-10-CM Type 2 diabetes mellitus with diabetic polyneuropathy, without long-term current use of insulin (CMS/[facility]) - Primary E11.42 Relevant Orders Comprehensive Metabolic Panel Hemoglobin A1C Hypertension I10 documented in this encounter [facility] Work Phone: 10-03-2023 History of Present illness Narrative Subjective Patient ID: Kitty Vergara is a 83 y.o. male who presents for Follow-up ([facility]). HPI Weight is down 2 pounds, A1c is up to 8.2. Has not been doing well with diet for. Also did get a shot of cortisone in his shoulder. Recommend that we start insulin he does not want to get Wants to increase the glimepiride if we can. Discussed with the problems with low blood sugars he is okay with trying the medication. Increase the glimepiride to 4 mg in the morning and 2 mg in the evening for 2 weeks. Hypoglycemia, unable to grams twice a day. Office visit 4 weeks Did talk that if things do not improve we will need to start insulin. Hypertension - Takes medication without side effects. No CP/SOB/Palpitations. Follows a no added salt diet. Counseled diet, activity and weight loss. Review of Systems Constitutional: Negative for fatigue. Respiratory: Negative for shortness of breath. Cardiovascular: Negative for chest pain and palpitations. Gastrointestinal: Negative for nausea. Endocrine: Negative for polydipsia and polyuria. Skin: Negative for rash. Objective BP 146/73 Pulse 69 Ht 1.778 m (5' 10") Wt 112 kg (246 lb 6.4 oz) SpO2 95% BMI 35.35 kg/m Physical Exam Constitutional: Appearance: Normal appearance. Skin: General: Skin is warm and dry. Neurological: General: No focal deficit present. Mental Status: He is alert and oriented to person, place, and time. Psychiatric: Mood and Affect: Mood normal. Behavior: Behavior normal. Judgment: Judgment normal. Assessment/Plan Problem List Items Addressed This Visit ICD-10-CM Type 2 diabetes mellitus with diabetic polyneuropathy, without long-term current use of insulin (CMS/HCC) E11.42 Relevant Medications glimepiride (Amaryl) 4 mg tablet Hypertension - Primary I10 documented in this encounter [facility] Work Phone: 10-03-2023 Instructions Daniel Almanzar MD - 10/03/2023 10:40 AM EST There was a new prescription done for bumetanide to [facility] in June. Need to contact the pharmacy to get that prescription started. The prescription says to take it twice a day, only use it once a day like you have been doing. Increase the glimepiride to 4 mg in the morning and 2 mg in the evening for 2 weeks. If that goes okay then increase the glimepiride to 4 mg twice a day. Please watch for low blood sugar events. New prescription sent to [facility] for 4 mg twice a day. documented in this encounter [facility] Work Phone: 10-02-2023 Evaluation + Plan note Associated Problem(s): Chronic right shoulder pain Assessment: Right shoulder pain with osteoarthritis and partial-thickness rotator cuff tears and possibly a focal full-thickness tear. Patient states he has done well status post his most recent Kenalog injection from 08/28/2023. He is having no complaints regarding the shoulder for activities of daily living. Plan: Continue with activity restrictions to avoid those that aggravate the shoulder. Follow-up in 4 to 6 months for reevaluation. He understands he can follow-up sooner if he is having any discomfort or problems. [facility] Work Phone: 10-02-2023 Miscellaneous Notes Associated Problem(s): Chronic right shoulder pain Assessment: Right shoulder pain with osteoarthritis and partial-thickness rotator cuff tears and possibly a focal full-thickness tear. Patient states he has done well status post his most recent Kenalog injection from 08/28/2023. He is having no complaints regarding the shoulder for activities of daily living. Plan: Continue with activity restrictions to avoid those that aggravate the shoulder. Follow-up in 4 to 6 months for reevaluation. He understands he can follow-up sooner if he is having any discomfort or problems. documented in this encounter [facility] Work Phone: 10-02-2023 History of Present illness Narrative Assessment/Plan Encounter Diagnoses: Chronic right shoulder pain Chronic right shoulder pain Assessment: Right shoulder pain with osteoarthritis and partial-thickness rotator cuff tears and possibly a focal full-thickness tear. Patient states he has done well status post his most recent Kenalog injection from 08/28/2023. He is having no complaints regarding the shoulder for activities of daily living. Plan: Continue with activity restrictions to avoid those that aggravate the shoulder. Follow-up in 4 to 6 months for reevaluation. He understands he can follow-up sooner if he is having any discomfort or problems. Subjective Patient ID: Kitty Vergara is a 83 y.o. male. Chief Complaint: Pain of the Right Shoulder (FUV R SHOULDER MRI/MRI 08-28-23/PAIN RATE 0/INJ 08-28-23) Last Surgery: No surgery found Last Surgery Date: No surgery found HPI 83-year-old with right shoulder pain. He has benefited from cortisone injections in the past. 1 lasted him quite a while and was nearly painless. The second and most recent gave him some relief but has worn off at this point. 10/02/23-doing well status post his last cortisone injection which was over a month ago. He is very pleased with his result. OBJECTIVE: ORTHO EXAM Right shoulder: Inspection: Skin healthy to gross inspection No ecchymosis, no edema, no gross atrophy Palpation: Acromioclavicular joint no tenderness Biceps tendon/ groove minimal tenderness Anterior Acromial Bursal Area minimal tenderness Cervical spine mild tenderness ROM: Forward Flexion 140 degrees active External Rotation 70 degrees at 90 degrees abduction Internal Rotation 70 degrees at 90 degrees abduction Strength: 5 -/5 Supraspinatus isolation- resisted elevation 5 -/5 Infraspinatus isolation- ER 5/5 Subscapularis- IR Negative lift off test Equivocal Spurling s test Today Neer and Hawking s test Negative Speed's test Negative Inferior Sulcus Negative Anterior Apprehension Full unrestricted motion at Elbow/Wrist/Hand Neurovascular exam normal distally IMAGE RESULTS: MR shoulder right wo IV contrast Narrative: Interpreted By: Justice Hoff and Guraya Sahejmeet STUDY: MRI of the right shoulder without IV contrast INDICATION: Signs/Symptoms:Right shoulder Pain COMPARISON: Shoulder radiographs 08/28/2023. ACCESSION NUMBER(S): [id number] ORDERING CLINICIAN: KAPIL OROZCO TECHNIQUE: Multiplanar multisequence MRI of the right shoulder was performed without intravenous contrast. FINDINGS: Acromioclavicular Joint: There are severe degenerative changes of the acromioclavicular joint with a moderate volume joint effusion noted.. A trace volume of fluid is noted within the subacromial subdeltoid bursa.. Biceps Tendon: There is moderate thickening of the intra-articular biceps tendon with areas of and interstitial linear signal abnormality noted. Rotator Cuff: There is low-grade bursal sided tearing of the anterior and central fibers of the insertional supraspinatus tendon fibers, with focal full-thickness perforation of the insertional junctional fibers with the infraspinatus tendon noted measuring 0.4 cm AP dimension. There is mild associated tendinosis. Infraspinatus tendon is otherwise within normal limits. There is high-grade undersurface tearing of the superior subscapularis tendon fibers with mild medial subluxation of the biceps tendon. Muscles: Diffuse moderate fatty atrophy of the teres minor muscle belly is noted. Labrum:. Diffuse complex degenerative labral tearing is noted. Articular Cartilage: There is high-grade articular cartilage loss involving the humeral head and glenoid fossa. Bones: The marrow signal of the humeral head is within normal limits. No evidence acute fracture or contusion. Nerves: No evidence of mass effect in the region of the quadrilateral space or suprascapular nerve. Other: No shoulder joint effusion. Impression: 1. There is focal full-thickness tear involving the junctional fibers of the supraspinatus insertion, which measures 0.4 cm. There is also low-grade bursal sided tearing involving the anterior and central fibers with mild associated tendinosis. 2. High-grade undersurface tearing of the superior subscapularis tendon fibers is noted. 3. There is moderate intra-articular biceps tendinosis with a component of [id number]-gz-[id number] grade interstitial tearing suspected. 4. Severe degenerative changes of the acromioclavicular joint, and moderate to severe degenerative changes of the glenohumeral joint are noted. 5. Moderate fatty atrophy of the teres minor muscle belly which in the appropriate clinical setting can be associated with quadrilateral space syndrome although no mass is evident at the quadrilateral space. MACRO: None. Signed by: Justice Hoff 08/30/2023 11:43 AM Dictation workstation: [id number] ULTRASOUND Refer to shoulder injection Procedures Orders Placed This Encounter Point of Care Ultrasound documented in this encounter [facility] Work Phone: 09-19-2023 Note HNO ID: [id number] Author: Diego Gore MD Service: ? Author Type: Physician Type: Progress Notes Filed: 09/19/2023 10:54 AM Note Text: [facility] Date: September 19, 2023 - 9:47 AM Chief Complaint: chronic diabetic neuropathy ____ SUBJECTIVE: Mr. Vergara presents to the [facility] for a follow up appointment regarding diabetic neuropathy pain. He states that since the last visit symptoms have been stable. The pain is located in the bilateral lower extremities below the knees and does not radiate. // The pain is described as sharp and is rated as 0 on a scale of 0-10. Currently, the symptoms do not interfere with activities of daily living (ADLs). The pain is exacerbated by unable to pinpoint exacerbating factors/positions. The pain is mitigated by unable to pinpoint positions/factors that are mitigating. He is currently receiving medications through the [facility]. He is not having difficulty with his PMC medications. The medications are effective. REVIEW OF SYSTEMS: Constitutional: (-) Fever (-) Night Sweats (-) Weight Gain (-) Weight Loss (-) Fatigue Cardiovascular: (-) Chest Pain (-) Palpitations (-) Lightheadedness (+) Swelling of Ankles (-) Hx Heart Surgery Respiratory: (-) Shortness of Breath (-) Cough (-) Wheezing (-) Snoring Gastrointestinal: (-) Incontinence (-) Abdominal Pain (-) Diarrhea (-) Constipation (-) Nausea/Vomiting (-) Heart Burn Endocrine: (-) Thyroid Disorder (+) Diabetes Hematologic: (+) Prolonged Bleeding (+) Easy Bruising Genitourinary: (-) Incontinence (-) Frequency (-) Urinary Urgency Skin: (-) Rashes (-) Itching (-) Other Lesions Neurologic: (-) Headache (-) Double Vision (-) Confusion (-) Paralysis Psychiatric: (-) Depression (-) Anxiety (-) Delusions (-) Hallucinations (-) Personal History of Alcohol or Substance Abuse (-) Family History of Alcohol or Substance Abuse ____ No past medical history on file. No past surgical history on file. ALLERGIES Allergen Reactions Gaqwcje-Pfy-Tti Red* Swelling Tongue swelling Current Outpatient Medications Medication Sig gabapentin (NEURONTIN) 300 mg capsule Take 1 capsule by mouth two times a day for 180 days. methocarbamol (ROBAXIN) 500 mg tablet Take 1 tablet by mouth two times a day as needed. clopidogrel (PLAVIX) 75 mg tablet Take 75 mg by mouth once daily. fenofibrate nanocrystallized (TRICOR) 145 mg tablet Take 145 mg by mouth once daily. ezetimibe (ZETIA) 10 mg tablet Take 10 mg by mouth once daily. spironolactone (ALDACTONE) 25 mg tablet Take 25 mg by mouth once daily. aspirin, enteric coated (ASPIRIN, ENTERIC COATED) 81 mg EC tablet Take by mouth q 24 HR. clobetasol (TEMOVATE) 0.05 % cream APPLY A THIN LAYER TO THE BILATERAL HANDS AND FEET TWICE DAILY FOR 2 WEEKS TAKING ONE WEEK OFF PRIOR TO REAPPLYING lansoprazole (PREVACID) 30 mg capsule lansoprazole 30 mg capsule,delayed release losartan-hydroCHLOROthiazide (HYZAAR) 100-25 mg per tablet Take 1 tablet by mouth once daily. (Patient not taking: Reported on 04/06/2023) allopurinol (ZYLOPRIM) 300 mg tablet Take 300 mg by mouth once daily. glipiZIDE (GLUCOTROL) 5 mg tablet Take 5 mg by mouth twice daily. metFORMIN ER (GLUCOPHAGE XR) 500 mg 24 hr tablet Take 1,000 mg by mouth once daily. No current facility-administered medications for this visit. I have reviewed the nurses notes and I am aware of the family/social history. Since the last evaluation the medical history has not changed. PDMP website checked and validated. All prescriptions have been APPROPRIATELY filled. No suspicious activity was identified. 09/19/2023 by Diego Gore MD Narcotic Agreement reviewed and signed?: N/A on September 19, 2023 Urine Panel: No results found for: "UQCANN", "UQBNZL", "HHF9MFS", "UQAMPH", "UQMAMP", "UQBUPRE", "UQNORBUP", "UQMTHD", "UQEDDP", "UQTRAM", "UQDTRM", "UQFNTL", "UQNFTL", "UQCODE", "UQMORP", "UQDCDN", "UQHCOD", "UQOXYC", "UQHMOR", "UQOXYM", "UQCREA", "UQPH", "UQSPGR", "UQOXID", "UQSPQ" The pain panel was N/A PHYSICAL EXAMINATION: Performed in conjunction with observation. The patient was alert and oriented x3. The patient was in no acute distress. Lungs: Clear, negative for dyspnea or distress. CVR: Regular Rate. Negative for SOB or peripheral edema. Neck: Supple. The range of motion was intact. Back: Range of motion of the trunk was intact.. Negative focal tenderness Extremities: No deformities, edema, or skin discoloration. Musculoskeletal: pain in the hands, no edema , no extremity tenderness Neuro: Neuropathy in the feet. Motor skills intact Station and Gait: antalgic gait ASSESSMENT: Diabetic peripheral neuropathy (hcc) PLAN: Prior available imaging studies wer (more content not included)... [facility] 08-28-2023 Evaluation + Plan note Associated Problem(s): Primary osteoarthritis of right shoulder Assessment: Right shoulder arthritis Plan: Ultrasound-guided right shoulder intra-articular injection with cortisone 40 mg of Kenalog with a good lidocaine suppression test. Gentle range of motion and strengthening as a home exercise program. Follow-up in 4 to 6 weeks for reevaluation. An MRI should be obtained to get definitive evaluation of the rotator cuff in anticipation of possible shoulder arthroplasty. [facility] Work Phone: 08-28-2023 Miscellaneous Notes Associated Problem(s): Primary osteoarthritis of right shoulder Assessment: Right shoulder arthritis Plan: Ultrasound-guided right shoulder intra-articular injection with cortisone 40 mg of Kenalog with a good lidocaine suppression test. Gentle range of motion and strengthening as a home exercise program. Follow-up in 4 to 6 weeks for reevaluation. An MRI should be obtained to get definitive evaluation of the rotator cuff in anticipation of possible shoulder arthroplasty. 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 Gentle range of motion and strengthening as a home exercise program. Follow-up in 4 to 6 weeks for reevaluation. An MRI should be obtained to get definitive evaluation of the rotator cuff in anticipation of possible shoulder arthroplasty. Subjective Patient ID: Kitty Vergara is a 83 y.o. male. Chief Complaint: Pain of the Right Shoulder (Gkaal-23-3-23) Last Surgery: No surgery found Last Surgery Date: No surgery found HPI 83-year-old with right shoulder pain. He has benefited from cortisone injections in the past. 1 lasted him quite a while and was nearly painless. The second and most recent gave him some relief but has worn off at this point. OBJECTIVE: ORTHO EXAM Right shoulder: Inspection: Skin healthy to gross inspection No ecchymosis, no edema, no gross atrophy Palpation: Acromioclavicular joint no tenderness Biceps tendon/ groove minimal tenderness Anterior Acromial Bursal Area minimal tenderness Cervical spine mild tenderness ROM: Forward Flexion 130 degrees active External Rotation 70 degrees at 90 degrees abduction Internal Rotation 60 degrees at 90 degrees abduction Strength: 5 -/5 Supraspinatus isolation- resisted elevation 5 -/5 Infraspinatus isolation- ER 5/5 Subscapularis- IR Negative lift off test Equivocal Spurling s test Today Neer and Hawking s test Negative Speed's test Negative Inferior Sulcus Negative Anterior Apprehension Full unrestricted motion at Elbow/Wrist/Hand Neurovascular exam normal distally IMAGE RESULTS: XR hips bilateral 2 VW w or wo pelvis Narrative: Interpreted By: Mychal Howell, STUDY: XR HIPS BILATERAL 2 VW WITH OR WITHOUT PELVIS INDICATION: Signs/Symptoms:pain. COMPARISON: None ACCESSION NUMBER(S): [id number] ORDERING CLINICIAN: KAPIL OROZCO FINDINGS: Mild osteoarthritis bilateral hips. No fractures or lesions are seen. Impression: Mild osteoarthritis bilateral hips. Signed by: Mychal Howell 07/21/2023 8:23 AM Dictation workstation: [id number] ULTRASOUND Refer to shoulder injection L Inj/Asp: R glenohumeral on 08/28/2023 12:48 PM Details: ultrasound-guided (DIAGNOSTIC ULTRASOUND FINAL REPORT: Right SHOULDER Provider: Kapil Orozco MD Date of Exam: Today Procedure: Ultrasound, extremity, nonvascular, real-time, COMPLETE, anatomic specific. Site: SHOULDER Indication: SHOULDER PAIN Technique: B-Mode Ultrasound Examination performed using 8-13 MHz linear transducer with [employer] STUDY TYPE: 1. ULTRASOUND EXTREMITY INCLUDING BUT NOT LIMITED TO SHOULDER MUSCLE, TENDONS, LIGAMENTS, FATTY TISSUES, SUBCUTANEOUS TISSUES AND OTHER SOFT TISSUE STRUCTURES SUCH ABSCESSES OR FREE FLUID ACCUMULATION WITHIN THE PRIMARY JOINT WELL ADJACENT JOINTS. 2. REAL TIME WITH IMAGE DOCUMENTATION 3. NON-VASCULAR 4. COMPLETE STUDY WHICH INCLUDES A THOROUGH EVALUATION OF THE SHOULDER MUSCLE, TENDONS, LIGAMENTS, FATTY TISSUES, SUBCUTANEOUS TISSUES AND OTHER SOFT TISSUE STRUCTURES SUCH ABSCESSES OR FREE FLUID ACCUMULATION WITHIN THE PRIMARY JOINT WELL ADJACENT JOINTS. Live ultrasound was performed of the patient s SHOULDER and PERMANENTLY documented. This is a thorough and complete evaluation of a specific anatomic region specifically the SHOULDER. PERMANENT Image documentation was performed. This is the complete and final ultrasound report of the patient's SHOULDER. The patient was positioned in order to optimize the ultrasound evaluation of the SHOULDER. Ultrasound gel was used as a conductive medium in order to both transmit and receive ultrasonic signals that characterize the soft tissues. . I personally performed the ultrasound and reviewed the findings. These show: Findings: SHOULDER Nola-articular evaluation: Live ultrasound was performed of the patient's SHOULDER that shows tendinitis and partial tears of the supraspinatus and infraspinatus tendons with the deltoid muscle fibers showing normal striations. There was minimal sub acromial effusion. Evaluation of the subscapularis with the arm in external rotation showed an intact and normal appearing subscapularis tendon. Small glenohumeral effusion is noted. Joint Evaluation: The biceps tendon was visualized within the bicipital groove. ) anterior approach Medications: 40 mg triamcinolone acetonide 40 mg/mL Consent was given by the patient. Immediately prior to procedure a time out was called to verify the correct patient, procedure, equipment, business support professional and site/side marked as required. Patient was prepped and draped in the usual sterile fashion. Orders Placed This Encounter XR shoulder right 2+ views Point of Care Ultrasound MR shoulder right wo IV contrast documented in this encounter [facility] Work Phone: 08-03-2023 History of Present illness Narrative Subjective Patient ID: Kitty Vergara is a 83 y.o. male who presents for Follow-up ([facility]). HPI His weight is up 4 pounds from 2 many cookies. No shortness of breath no abdominal bloating and the swelling of his legs is much better on the Bumex once a day. Due for diabetic labs. Blood sugars little bit better at home no troubles with taking the glimepiride twice a day. Also been having a lot of pain in his hips and some weakness in the legs uses a cane. Talked about physical therapy will hold for now. NSAIDs are not appropriate Tylenol helps a little bit but not much. Did talk about strong pain pill, not ready to do that at this time. Labs today All medicines stayed the same. A prescription for the Bumex is twice a day but he is only taking it once a day for now. Patient's the option if needed to increase it. Office visit 2 months Review of Systems Constitutional: Positive for fatigue. Respiratory: Negative for cough and shortness of breath. Gastrointestinal: Negative for abdominal distention, abdominal pain, diarrhea and nausea. Musculoskeletal: Positive for arthralgias. Neurological: Positive for weakness. Negative for dizziness and headaches. Objective BP 136/68 Pulse 62 Ht 1.791 m (5' 10.5") Wt 112 kg (246 lb 1.6 oz) SpO2 97% BMI 34.81 kg/m Physical Exam Constitutional: Appearance: Normal appearance. HENT: Head: Normocephalic and atraumatic. Cardiovascular: Rate and Rhythm: Normal rate and regular rhythm. Heart sounds: Normal heart sounds. Pulmonary: Effort: Pulmonary effort is normal. Breath sounds: Normal breath sounds. Skin: General: Skin is warm and dry. Neurological: General: No focal deficit present. Mental Status: He is alert and oriented to person, place, and time. Psychiatric: Mood and Affect: Mood normal. Behavior: Behavior normal. Thought Content: Thought content normal. Judgment: Judgment normal. Assessment/Plan Problem List Items Addressed This Visit ICD-10-CM Type 2 diabetes mellitus with diabetic polyneuropathy, without long-term current use of insulin ([facility]) - Primary E11.42 Relevant Medications glimepiride (Amaryl) 2 mg tablet Other Relevant Orders CBC Comprehensive Metabolic Panel Hemoglobin A1C Hypertension I10 Relevant Orders CBC Comprehensive Metabolic Panel Other Visit Diagnoses Codes Edema of both legs R60.0 Relevant Medications bumetanide (Bumex) 1 mg tablet documented in this encounter [facility] Work Phone: 07-21-2023 Evaluation + Plan note Associated Problem(s): Pain in shoulder Assessment: Bilateral shoulder impingement which has benefited greatly from cortisone injections. Plan: Patient states that his shoulders are doing much better. He is doing a home exercise program. Uses Voltaren as needed. Avoids at risk activities. Follow-up in 3 months for reevaluation. [facility] Work Phone: 07-21-2023 Miscellaneous Notes Associated Problem(s): Pain in shoulder Assessment: Bilateral shoulder impingement which has benefited greatly from cortisone injections. Plan: Patient states that his shoulders are doing much better. He is doing a home exercise program. Uses Voltaren as needed. Avoids at risk activities. Follow-up in 3 months for reevaluation. documented in this encounter [facility] Work Phone: 07-19-2023 History of Present illness Narrative Assessment/Plan Encounter Diagnoses: Chronic pain of both shoulders Hip pain, bilateral Pain in shoulder Assessment: Bilateral shoulder impingement which has benefited greatly from cortisone injections. Plan: Patient states that his shoulders are doing much better. He is doing a home exercise program. Uses Voltaren as needed. Avoids at risk activities. Follow-up in 3 months for reevaluation. Subjective Patient ID: Kitty Vergara is a 83 y.o. male. Chief Complaint: Follow-up of the Left Shoulder (Patient accompanied by , Adriel. Pt had cortisone injections into his shoulders on . He states his shoulders are feeling better/), Follow-up of the Right Shoulder, Pain of the Right Hip, and Pain of the Left Hip Last Surgery: No surgery found Last Surgery Date: No surgery found HPI 83-year-old male comes in today status post an injections of his subacromial space bilateral shoulders with a good to excellent result. He states that he is having minimal pain and he is quite functional at this point. OBJECTIVE: ORTHO EXAM leftShoulder: Skin healthy to gross inspection No ecchymosis, no edema, no gross atrophy No tenderness to palpation over acromioclavicular joint No tenderness to palpation over biceps tendon No tenderness to palpation over the cervical spine ROM: Full forward flexion Full external rotation IR symmetric to contralateral side Strength: 5-/5 Supraspinatus isolation- resisted elevation 5/5 Infraspinatus isolation- ER 5/5 Subscapularis- IR Negative lift off test Negative Spurling s test mildly positive Neer and Hawking s test Negative Speed's test Negative Inferior Sulcus Negative Anterior Apprehension Full unrestricted motion at Elbow/Wrist/Hand Neurovascular exam normal distally right shoulder: Skin healthy to gross inspection No ecchymosis, no edema, no gross atrophy No tenderness to palpation over acromioclavicular joint No tenderness to palpation over biceps tendon No tenderness to palpation over the cervical spine ROM: Full forward flexion Full external rotation IR symmetric to contralateral side Strength: 5-/5 Supraspinatus isolation- resisted elevation 5/5 Infraspinatus isolation- ER 5/5 Subscapularis- IR Negative lift off test Negative Spurling s test mildly positive Neer and Hawking s test Negative Speed's test Negative Inferior Sulcus Negative Anterior Apprehension Full unrestricted motion at Elbow/Wrist/Hand Neurovascular exam normal distally IMAGE RESULTS: XR hips bilateral 2 VW w or wo pelvis Narrative: Interpreted By: Mychal Howell, STUDY: XR HIPS BILATERAL 2 VW WITH OR WITHOUT PELVIS INDICATION: Signs/Symptoms:pain. COMPARISON: None ACCESSION NUMBER(S): [id number] ORDERING CLINICIAN: KAPIL OROZCO FINDINGS: Mild osteoarthritis bilateral hips. No fractures or lesions are seen. Impression: Mild osteoarthritis bilateral hips. Signed by: Mychal Howell 07/21/2023 8:23 AM Dictation workstation: [id number] ULTRASOUND DIAGNOSTIC ULTRASOUND FINAL REPORT: [ left SHOULDER Provider: Kapil Orozco MD Date of Exam: Today Procedure: Ultrasound, extremity, nonvascular, real-time, COMPLETE, anatomic specific. Site: SHOULDER Indication: SHOULDER PAIN Technique: B-Mode Ultrasound Examination performed using 8-13 MHz linear transducer with [employer] STUDY TYPE: 1. ULTRASOUND EXTREMITY INCLUDING BUT NOT LIMITED TO SHOULDER MUSCLE, TENDONS, LIGAMENTS, FATTY TISSUES, SUBCUTANEOUS TISSUES AND OTHER SOFT TISSUE STRUCTURES SUCH ABSCESSES OR FREE FLUID ACCUMULATION WITHIN THE PRIMARY JOINT WELL ADJACENT JOINTS. 2. REAL TIME WITH IMAGE DOCUMENTATION 3. NON-VASCULAR 4. COMPLETE STUDY WHICH INCLUDES A THOROUGH EVALUATION OF THE SHOULDER MUSCLE, TENDONS, LIGAMENTS, FATTY TISSUES, SUBCUTANEOUS TISSUES AND OTHER SOFT TISSUE STRUCTURES SUCH ABSCESSES OR FREE FLUID ACCUMULATION WITHIN THE PRIMARY JOINT WELL ADJACENT JOINTS. Live ultrasound was performed of the patient s SHOULDER and PERMANENTLY documented. This is a thorough and complete evaluation of a specific anatomic region specifically the SHOULDER. PERMANENT Image documentation was performed. This is the complete and final ultrasound report of the patient's SHOULDER. The patient was positioned in order to optimize the ultrasound evaluation of the SHOULDER. Ultrasound gel was used as a conductive medium in order to both transmit and receive ultrasonic signals that characterize the soft tissues. . I personally performed the ultrasound and reviewed the findings. These show: Findings: SHOULDER Nola-articular evaluation: Live ultrasound was performed of the patient's SHOULDER that shows Tendinosis and partial-thickness tears of the supraspinatus and infraspinatus tendons with the deltoid muscle fibers showing normal striations. There was no sub acromial effusion. Evaluation of the subscapularis with the arm in external rotation showed an intact and normal appearing subscapularis tendon. Joint Evaluation: The biceps tendon was visualized within the bicipital groove. DIAGNOSTIC ULTRASOUND FINAL REPORT: right SHOULDER Provider: Kapil Orozco MD Date of Exam: Today Procedure: Ultrasound, extremity, nonvascular, real-time, COMPLETE, anatomic specific. Site: SHOULDER Indication: SHOULDER PAIN Technique: B-Mode Ultrasound Examination performed using 8-13 MHz linear transducer with [employer] STUDY TYPE: 1. ULTRASOUND EXTREMITY INCLUDING BUT NOT LIMITED TO SHOULDER MUSCLE, TENDONS, LIGAMENTS, FATTY TISSUES, SUBCUTANEOUS TISSUES AND OTHER SOFT TISSUE STRUCTURES SUCH ABSCESSES OR FREE FLUID ACCUMULATION WITHIN THE PRIMARY JOINT WELL ADJACENT JOINTS. 2. REAL TIME WITH IMAGE DOCUMENTATION 3. NON-VASCULAR 4. COMPLETE STUDY WHICH INCLUDES A THOROUGH EVALUATION OF THE SHOULDER MUSCLE, TENDONS, LIGAMENTS, FATTY TISSUES, SUBCUTANEOUS TISSUES AND OTHER SOFT TISSUE STRUCTURES SUCH ABSCESSES OR FREE FLUID ACCUMULATION WITHIN THE PRIMARY JOINT WELL ADJACENT JOINTS. Live ultrasound was performed of the patient s SHOULDER and PERMANENTLY documented. This is a thorough and complete evaluation of a specific anatomic region specifically the SHOULDER. PERMANENT Image documentation was performed. This is the complete and final ultrasound report of the patient's SHOULDER. The patient was positioned in order to optimize the ultrasound evaluation of the SHOULDER. Ultrasound gel was used as a conductive medium in order to both transmit and receive ultrasonic signals that characterize the soft tissues. . I personally performed the ultrasound and reviewed the findings. These show: Findings: SHOULDER Nola-articular evaluation: Live ultrasound was performed of the patient's SHOULDER that shows Tendinosis and partial-thickness tears of the supraspinatus and infraspinatus tendons with the deltoid muscle fibers showing normal striations. There was no sub acromial effusion. Evaluation of the subscapularis with the arm in external rotation showed an intact and normal appearing subscapularis tendon. Joint Evaluation: The biceps tendon was visualized within the bicipital groove. Procedures Orders Placed This Encounter XR hips bilateral 2 VW w or wo pelvis XR pelvis 1-2 views Point of Care Ultrasound Follow Up In Orthopaedic Surgery documented in this encounter [facility] Work Phone: 07-02-2023 History of Present illness Narrative Subjective Patient ID: Kitty Vergara is a 82 y.o. male who presents for Follow-up ([facility]). HPI Weight is down 6 pounds with 1 Bumex daily. Swelling is much better. Overall he feels fine. Blood pressure did not change with the Bumex, so we will increase the carvedilol. The blood sugar is the same glimepiride once a day. Will increase to twice a day. Continue Bumex 1 mg daily Increase glimepiride 2 mg to twice a day. Increase carvedilol to 12.5 mg twice a day BMP today Office visit 1 month. Will need to draw or schedule diabetes lab follow-up at the next office visit. Review of Systems Constitutional: Negative for fatigue. Eyes: Negative for visual disturbance. Respiratory: Negative for cough, chest tightness and shortness of breath. Cardiovascular: Positive for leg swelling. Negative for chest pain and palpitations. Gastrointestinal: Negative for abdominal pain, constipation and diarrhea. Musculoskeletal: Positive for arthralgias. Skin: Negative for rash. Neurological: Negative for dizziness, light-headedness and headaches. Objective BP 140/76 Pulse 64 Ht 1.791 m (5' 10.5") Wt 109 kg (240 lb 8 oz) SpO2 97% BMI 34.02 kg/m Physical Exam Constitutional: Appearance: Normal appearance. Skin: General: Skin is warm and dry. Neurological: General: No focal deficit present. Mental Status: He is alert and oriented to person, place, and time. Psychiatric: Mood and Affect: Mood normal. Behavior: Behavior normal. Judgment: Judgment normal. Assessment/Plan Problem List Items Addressed This Visit ICD-10-CM Type 2 diabetes mellitus with diabetic polyneuropathy, without long-term current use of insulin ([facility]) E11.42 Relevant Orders Basic Metabolic Panel Hypertension - Primary I10 Relevant Medications carvedilol (Coreg) 12.5 mg tablet Other Relevant Orders Basic Metabolic Panel Other Visit Diagnoses Codes Edema of both legs R60.0 documented in this encounter [facility] Work Phone: 07-02-2023 Instructions Daniel Almanzar MD - 07/02/2023 10:20 AM EDT Bumetanide 1 mg pill - stays at once daily. Increase glyburide 2 mg to twice a day. Increase the carvedilol to 12.5 mg twice a day. New prescription was sent to [facility]. documented in this encounter [facility] Work Phone: 05-16-2023 History of Present illness Narrative Subjective Patient ID: Kitty Vergara is a 82 y.o. male who presents for 2 wk check rev labs. HPI The Coreg really helped with his blood pressure. Kidney function did not get any better. Stop losartan Stop spironolactone Continue Coreg 6.25 mg twice a day for now. He did decrease the glipizide but his blood sugar did go up. I think the next step would be to stop the glipizide and try Amaryl. I will make that change next time if things are stable with blood pressure. Need to watch the kidney function did not improve with decreasing blood pressure medicines. Overall he is feeling better no more lows with his blood sugar is up. Still gets occasional dizziness Arthritis is unchanged Muscle aches and cramps are much better off the fenofibrate and Lab and office visit in 1 month Review of Systems Constitutional: Negative for fatigue. Eyes: Negative for visual disturbance. Respiratory: Negative for cough, chest tightness and shortness of breath. Cardiovascular: Negative for chest pain and palpitations. Gastrointestinal: Negative for abdominal pain, constipation and diarrhea. Musculoskeletal: Positive for arthralgias and back pain. Skin: Negative for rash. Neurological: Positive for light-headedness. Negative for headaches. Objective BP 110/58 Pulse 56 Ht 1.791 m (5' 10.5") Wt 112 kg (246 lb 11.2 oz) SpO2 95% BMI 34.90 kg/m Physical Exam Constitutional: Appearance: Normal appearance. HENT: Head: Normocephalic and atraumatic. Cardiovascular: Rate and Rhythm: Normal rate and regular rhythm. Heart sounds: Normal heart sounds. Pulmonary: Effort: Pulmonary effort is normal. Breath sounds: Normal breath sounds. Skin: General: Skin is warm and dry. Neurological: General: No focal deficit present. Mental Status: He is alert and oriented to person, place, and time. Psychiatric: Mood and Affect: Mood normal. Behavior: Behavior normal. Thought Content: Thought content normal. Judgment: Judgment normal. Assessment/Plan Problem List Items Addressed This Visit Type 2 diabetes mellitus with diabetic polyneuropathy, without long-term current use of insulin (CMS/HCC) Hypertension - Primary Relevant Orders Basic Metabolic Panel Chronic renal impairment, stage 3b (CMS/HCC) documented in this encounter [facility] Work Phone: 05-16-2023 Instructions Daniel Almanzar MD - 05/16/2023 8:40 AM EDT Stop losartan Stop spironolactone Complete blood test in 1 month before the office visit. Please bring your medication bottles with the medicine you are taking to the next office visit. documented in this encounter [facility] Work Phone: 05-02-2023 History of Present illness Narrative Subjective Patient ID: Kitty Vergara is a 82 y.o. male who presents for Follow-up (3 wk). HPI He has had a couple of low blood sugar events down in the 70 and 80. Taking the glipizide twice a day still on the metformin with increased kidney function. Kidney function did come down with medicines adjustments but still high. Overall he feels like he is having muscle aches and pains. He thinks it is from the fenofibrate, and I can read partially but also likely from the metformin. The dizziness is better since her blood pressure is higher on the losartan 50 mg. I am not sure if he is taking the spironolactone, we did ask him to stay on it last time. With the low blood sugars and if kidney function still high need to make multiple medicine changes. Stop fenofibrate Stop metformin Decrease glipizide to once a day Decrease spironolactone to half a pill once a day. Decrease losartan to 25 mg daily Start carvedilol 6.25 mg twice a day. BMP today Office visit 2 weeks Review of Systems Constitutional: Negative for fatigue. Eyes: Negative for visual disturbance. Respiratory: Negative for cough, chest tightness and shortness of breath. Cardiovascular: Negative for chest pain and palpitations. Gastrointestinal: Negative for abdominal pain, constipation and diarrhea. Musculoskeletal: Positive for myalgias. Skin: Negative for rash. Neurological: Negative for dizziness and headaches. Objective BP 142/68 Pulse 75 Ht 1.791 m (5' 10.5") Wt 110 kg (242 lb 8 oz) SpO2 99% BMI 34.30 kg/m Physical Exam Constitutional: Appearance: Normal appearance. HENT: Head: Normocephalic and atraumatic. Cardiovascular: Rate and Rhythm: Normal rate and regular rhythm. Heart sounds: Normal heart sounds. Pulmonary: Effort: Pulmonary effort is normal. Breath sounds: Normal breath sounds. Skin: General: Skin is warm and dry. Neurological: General: No focal deficit present. Mental Status: He is alert and oriented to person, place, and time. Psychiatric: Mood and Affect: Mood normal. Behavior: Behavior normal. Thought Content: Thought content normal. Judgment: Judgment normal. Assessment/Plan Problem List Items Addressed This Visit Type 2 diabetes mellitus with diabetic polyneuropathy, without long-term current use of insulin ([facility]) Relevant Medications glipiZIDE (Glucotrol) 5 mg tablet Hyperlipidemia - Primary Hypertension Relevant Medications losartan (Cozaar) 25 mg tablet spironolactone (Aldactone) 25 mg tablet carvedilol (Coreg) 6.25 mg tablet Other Relevant Orders Basic Metabolic Panel documented in this encounter [facility] Work Phone: 05-02-2023 Instructions Daniel Almanzar MD - 05/02/2023 8:40 AM EDT Stop fenofibrate Stop metformin Decrease glipizide 5 mg, to 1 pill daily in the morning. Decrease spironolactone 25 mg, half a pill daily. New prescription done. Decrease losartan to 25 mg 1 pill daily. New prescription done. New prescription for carvedilol 6.25 mg, 1 pill twice a day. documented in this encounter [facility] Work Phone: 04-26-2023 Note Orders Shoulder pain Physical Therapy - General Referral Evaluation and Treatment Evaluate AND Treat MEREDITH SHOULDER IMPINGEMENT Status: Hold For - Scheduling,Retrospective Authorization Requested for: [id number] Orthopedic Point of Care Ultrasound; Status:Complete - Retrospective Authorization; Done: [id number] 12:00AM Radiologist to Determine Optimal Study : Y What are the patient's signs and symptoms? : PAIN Patient Discussion/Summary Assessment: Bilateral glenohumeral joint arthritis. His right is clinically much worse than his left. Plan: - Reviewed Xray findings with patient - Reviewed Ultrasound findings with patient - Voltaren Gel OTC information given, use as directed - PT Script Given-he states he will participate in therapy. Gentle range of motion and strengthening is planned. - NSAIDs [id number] as needed - Bracing -deferred - MRI-deferred - F/U 6-8 weeks. Chief Complaint PATIENT PRESENTS TO OFFICE FOR : F/U OF BI SHOULDER PAIN PATIENT STATES RIGHT ;SHOULDER HAS NOT BEEN PAINFUL SINCE CORTISONE INJECTION. ONSET: 3 Months Ago DOI / DOS:3 Months Ago IMPROVED: YES PAIN: 0/10 PAIN MEDS TAKEN: ICE / HEAT APPLIED: NO BRACE WORN: No LAST INJECTION: 03/22/23 ACCOMPANIED BY: ADRIEL History of Present Illness 82-year-old male comes in today for bilateral shoulder pain. He has known osteoarthritis. He is retired. He is medt-[id number]. His shoulder pain has worsened recently and is beginning to interfere with his activities of daily living. The right shoulder was particularly bad a few days ago although it has recovered somewhat. His right shoulder is much worse than his left clinically. 04/26/2023-patient states that he is not having shoulder pain since the injection. He is about a month out from the cortisone subacromial injection. He is back to every day activity without any complaints. Active Problems Problems BPH (benign prostatic hyperplasia) (600.00) (N40.0) Chronic GERD (530.81) (K21.9) Chronic renal impairment, stage 3b (585.3) (N18.32) Controlled type 2 diabetes mellitus without complication, without long-term current use of insulin (250.00) (E11.9) Controlled type 2 diabetes mellitus without complication, without long-term current use of insulin Dry skin (701.1) (L85.3) Edema of both legs (782.3) (R60.0) Gout (274.9) (M10.9) Headache (784.0) (R51.9) Hyperlipidemia (272.4) (E78.5) Hypertension (401.9) (I10) Medicare annual wellness visit, subsequent (V70.0) (Z00.00) Neuropathy, peripheral, autonomic, idiopathic (337.00) (G90.09) Nocturia (788.43) (R35.1) Nocturnal hypoxemia (327.24) (G47.34) Obesity (278.00) (E66.9) 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 Bhakta Family History Mother Family history of acute myocardial infarction (V17.3) (Z82.49) Family history of malignant neoplasm (V16.9) (Z80.9) Child Family history of acute myocardial infarction (V17.3) (Z82.49) Family history of malignant neoplasm (V16.9) (Z80.9) Family history of Primary malignant neoplasm of brain Other Family history of type 2 diabetes mellitus (V18.0) (Z83.3) Family history of Primary malignant neoplasm of female breast Social History Problems Alcohol consumption one to two days per week (V49.89) (Z78.9) Current smokeless tobacco user Does not use illicit drugs (V49.89) (Z78.9) Does not use tobacco (V49.89) (Z78.9) Patient has healthcare proxy and living will (V49.89) (Z78.9) Allergies Medication Statins Recorded By: Srikanth Cesar; 09/26/2019 1:00:26 PM Additional reactions - Tongue swelling Current Meds Medication NameInstruction Allopurinol 300 MG Oral TabletTAKE 1 TABLET DAILY. Blood Glucose Monitor System w/Device KitUSE TO CHECK BLOOD SUGAR TWICE DAILY Clopidogrel Bisulfate 75 MG Oral Tablet Ezetimibe 10 MG Oral Tablet Fenofibrate 145 MG Oral Tablet Gabapentin 100 MG Oral CapsuleTAKE 2 CAPSULE Every morning AND 2 CAPSULES EVERY EVENING glipiZIDE 5 MG Oral TabletTAKE 1 TABLET TWICE DAILY. Glucose Meter Test In Vitro StripUSE TO TEST BLOOD SUGAR ONCE DAILY, DX E11.9 # 100 LancetsTEST TWICE DAILY dx E11.9 Losartan Potassium-HCTZ 100-25 MG Oral TabletTAKE 1 TABLET ONCE DAILY. metFORMIN HCl ER 500 MG Oral Tablet Extended Release 24 HourTAKE 2 TABLET Daily Triamcinolone Acetonide 0.1 % External CreamAPPLY 2-3 TIMES DAILY TO AFFECTED AREA(S). Triamcinolone Acetonide 0.5 % External OintmentAPPLY SPARINGLY TO AFFECTED AREA(S) TWICE DAILY Physical Exam Right shou (more content not included)... [employer] 08-01-2023 History of Present illness Narrative 82-year-old male comes in today for bilateral shoulder pain. He has known osteoarthritis. He is retired. He is frpn-[id number]-[id number]. His shoulder pain has worsened recently and is beginning to interfere with his activities of daily living. The right shoulder was particularly bad a few days ago although it has recovered somewhat. His right shoulder is much worse than his left clinically.04/26/2023-patient states that he is not having shoulder pain since the injection. He is about a month out from the cortisone subacromial injection. He is back to every day activity without any complaints. [facility] Work Phone: 04-23-2023 History of Present illness Narrative 82-year-old male comes in today for bilateral shoulder pain. He has known osteoarthritis. He is retired. He is [id number]. His shoulder pain has worsened recently and is beginning to interfere with his activities of daily living. The right shoulder was particularly bad a few days ago although it has recovered somewhat. His right shoulder is much worse than his left clinically.04/26/2023-patient states that he is not having shoulder pain since the injection. He is about a month out from the cortisone subacromial injection. He is back to every day activity without any complaints. [facility] Work Phone: 04-06-2023 Note HNO ID: [id number] Author: Mary Junior APRN.MINE ENGINEERING SUPERVISOR Service: ? Author Type: Nurse Practitioner Type: Progress Notes Filed: 04/07/2023 2:30 PM Note Text: SUBJECTIVE: Kitty Vergara presents to [facility] for a follow up appointment Since the last visit, Kitty Vergara states the pain has been stable. Current pain intensity is 0 on a scale of 0-10. Pain located in bilateral feet area and does not radiate. Pain described as sharp The patient Denies weakness, numbness, tingling, and morning stiffness. Symptoms interfere with unable to pinpoit. Pain is exacerbated by unable to pinpoint exacerbating factors/positions. Pain is mitigated by medications. The medications are effective. The patient states the last dose of . Neurontin/gabapentin was taken at this morning at 8am. REVIEW OF SYSTEMS: Constitutional: (-) Weight Gain (-) Weight Loss (-) Fatigue Cardiovascular: (-) hx heart surgery (-) Pacemaker Respiratory: (-) Shortness of Breath (-) Cough (-) Snoring Gastrointestinal: (-) Incontinence (-) Diarrhea (-) Constipation (-) Nausea/Vomiting Endocrine: (-) Thyroid Disorder (+) Diabetes Hematologic: (-) Prolonged Bleeding (+) Easy Bruising Genitourinary: (-) Incontinence (-) Frequency (+) Urinary Urgency Skin: (+) Open sores/wound Neurologic: (+) Headache (+) Double Vision Psychiatric: (-) Depression (-) Anxiety (-) Personal History of Alcohol or Substance Abuse (-) Family History of Alcohol or Substance Abuse CHIEF COMPLAINT:Patient presents with: Follow Up OBJECTIVE: Pulse 81 Ht 5' 10.5" (1.79m) Wt 239 lb 1.6 oz (108.5kg) SpO2 98% BMI 33.81 kg/(m2). PHYSICAL EXAMINATION: General appearance: Well appearing, in no acute distress, alert and oriented x3 Skin: Skin color, texture, turgor normal, no rashes or lesions Neck: No pain to palpation over the cervical paraspinous muscles. No pain with neck flexion, extension, or lateral flexion Cardiovascular: Regular, rate and rhythm Lungs: Normal respiratory rate and rhythm, Lungs clear to auscultation Back: Intact range of motion without pain reproduction. Spine: DeniesTenderness on palpation: Lumbar Extremities: No deformities, edema, or skin discoloration. Good capillary refill. Musculoskeletal: pain in the hands, no edema , no extremity tenderness Neuro: Neuropathy in the feet. Motor skills intact Station and Gait: antalgic gait ASSESSMENT: Assessment : Patient presents for medication refills Patient has a history of diabetic neuropathy in his feet. He experiences numbness, tingling and burning He reports he experiencing sharp pains in his hands for the past 2 to 3 years Patient takes gabapentin to help manage his chronic pain Encounter Diagnosis ICD-10-CM 1. Diabetic peripheral neuropathy (HCC) E11.42 gabapentin (NEURONTIN) 300 mg capsule PDMP website checked and validated. All prescriptions have been APPROPRIATELY filled. No suspicious activity was identified. 04/06/2023 by Mary Junior APRN.MINE ENGINEERING SUPERVISOR Narcotic Agreement reviewed and signed?: N/A on April 06, 2023 The pain panel was N/A PLAN: Injection history was reviewed. Medication use and compliance were reviewed. 1. Continue medication management through the [facility] 2. The following approved medication requests have been transmitted electronically. Requested Prescriptions Signed Prescriptions Disp Refills gabapentin (NEURONTIN) 300 mg capsule 60 capsule 5 Sig: Take 1 capsule by mouth twice daily for 30 days. 3. Interventional procedure options discussed. none 4. Encouraged regular home exercise program. 5) F/U in 6 months I spent a total of 20 minutes on the date of the service which included preparing to see the patient, [id number] patient care, completing clinical documentation, performing a medically appropriate examination, and ordering medications, tests, or procedures. The above plan and management options were discussed at length with patient. Patient is in agreement with the above and verbalized understanding. Mary Junior APRN, MINE ENGINEERING SUPERVISOR April 06, 2023 [facility] 04-06-2023 History of Present illness Narrative SUBJECTIVE: Kitty Vergara [facility] for a follow up appointment Since the last visit, Kitty Vergara states the pain has been stable. Current pain intensity is 0 on a scale of 0-10. Pain located in bilateral feet area and does not radiate. Pain described as sharp The patient Denies weakness, numbness, tingling, and morning stiffness. Symptoms interfere with unable to pinpoit. Pain is exacerbated by unable to pinpoint exacerbating factors/positions. Pain is mitigated by medications. The medications are effective. The patient states the last dose of . Neurontin/gabapentin was taken at this morning at 8am. REVIEW OF SYSTEMS: Constitutional: (-) Weight Gain (-) Weight Loss (-) Fatigue Cardiovascular: (-) hx heart surgery (-) Pacemaker Respiratory: (-) Shortness of Breath (-) Cough (-) Snoring Gastrointestinal: (-) Incontinence (-) Diarrhea (-) Constipation (-) Nausea/Vomiting Endocrine: (-) Thyroid Disorder (+) Diabetes Hematologic: (-) Prolonged Bleeding (+) Easy Bruising Genitourinary: (-) Incontinence (-) Frequency (+) Urinary Urgency Skin: (+) Open sores/wound Neurologic: (+) Headache (+) Double Vision Psychiatric: (-) Depression (-) Anxiety (-) Personal History of Alcohol or Substance Abuse (-) Family History of Alcohol or Substance Abuse CHIEF COMPLAINT:Patient presents with: Follow Up OBJECTIVE: Pulse 81 Ht 5' 10.5" (1.79m) Wt 239 lb 1.6 oz (108.5kg) SpO2 98% BMI 33.81 kg/(m^2). PHYSICAL EXAMINATION: General appearance: Well appearing, in no acute distress, alert and oriented x3 Skin: Skin color, texture, turgor normal, no rashes or lesions Neck: No pain to palpation over the cervical paraspinous muscles. No pain with neck flexion, extension, or lateral flexion Cardiovascular: Regular, rate and rhythm Lungs: Normal respiratory rate and rhythm, Lungs clear to auscultation Back: Intact range of motion without pain reproduction. Spine: DeniesTenderness on palpation: Lumbar Extremities: No deformities, edema, or skin discoloration. Good capillary refill. Musculoskeletal: pain in the hands, no edema , no extremity tenderness Neuro: Neuropathy in the feet. Motor skills intact Station and Gait: antalgic gait ASSESSMENT: Assessment : Patient presents for medication refills Patient has a history of diabetic neuropathy in his feet. He experiences numbness, tingling and burning He reports he experiencing sharp pains in his hands for the past 2 to 3 years Patient takes gabapentin to help manage his chronic pain Encounter Diagnosis ICD-10-CM 1. Diabetic peripheral neuropathy (HCC) E11.42 gabapentin (NEURONTIN) 300 mg capsule PDMP website checked and validated. All prescriptions have been APPROPRIATELY filled. No suspicious activity was identified. 04/06/2023 by Mary Junior APRN.MINE ENGINEERING SUPERVISOR Narcotic Agreement reviewed and signed?: N/A on April 06, 2023 The pain panel was N/A PLAN: Injection history was reviewed. Medication use and compliance were reviewed. 1. [facility] through [facility] 2. The following approved medication requests have been transmitted electronically. Requested Prescriptions Signed Prescriptions Disp Refills gabapentin (NEURONTIN) 300 mg capsule 60 capsule 5 Sig: Take 1 capsule by mouth twice daily for 30 days. 3. Interventional procedure options discussed. none 4. Encouraged regular home exercise program. 5) F/U in 6 months I spent a total of 20 minutes on the date of the service which included preparing to see the patient, [id number] patient care, completing clinical documentation, performing a medically appropriate examination, and ordering medications, tests, or procedures. The above plan and management options were discussed at length with patient. Patient is in agreement with the above and verbalized understanding. Mary Junior APRN, RICARDO April 06, 2023 documented in this encounter [facility] 04-02-2023 History of Present illness Narrative Subjective Patient ID: Kitty Vergara is a 82 y.o. male who presents for Follow-up. HPI TIA symptoms was in the ER. Extensive work-up. MRIs were okay, only changes in labs were slight anemia 12.9 creatinine of 1.8 which is high but stable. No symptoms since the ER Taking the baby aspirin for 21 days then stopping. Started clopidogrel he will stay on that lifelong. Recommendation per neurology. Blood pressure has been high for the last 6 months backed off on the amlodipine for swelling and some dizziness. Swelling has been okay no more dizziness.? Restart amlodipine 2.5 mg if needed. Blood pressure is high today on recheck. Had a significant reaction with tongue swelling etc. statins is never tried a medicine since. He is on the fenofibrate. Stop losartan hydrochlorothiazide 100/25 Start losartan 100 mg daily Start spironolactone 25 mg daily Start Zetia 10 mg daily Office visit 2 weeks. Will need labs in 2 weeks. Review of Systems Constitutional: Negative for fatigue. Eyes: Negative for visual disturbance. Respiratory: Negative for cough, chest tightness and shortness of breath. Cardiovascular: Negative for chest pain and palpitations. Gastrointestinal: Negative for abdominal pain, constipation and diarrhea. Skin: Negative for rash. Neurological: Negative for headaches. Objective BP 165/72 Pulse 76 Ht 1.791 m (5' 10.5") Wt 107 kg (235 lb 6.4 oz) SpO2 95% BMI 33.30 kg/m Physical Exam Constitutional: Appearance: Normal appearance. HENT: Head: Normocephalic and atraumatic. Neck: Vascular: No carotid bruit. Cardiovascular: Rate and Rhythm: Normal rate and regular rhythm. Heart sounds: Normal heart sounds. Pulmonary: Effort: Pulmonary effort is normal. Breath sounds: Normal breath sounds. Lymphadenopathy: Cervical: No cervical adenopathy. Skin: General: Skin is warm and dry. Neurological: General: No focal deficit present. Mental Status: He is alert and oriented to person, place, and time. Gait: Gait normal. Psychiatric: Mood and Affect: Mood normal. Behavior: Behavior normal. Thought Content: Thought content normal. Judgment: Judgment normal. Assessment/Plan Problem List Items Addressed This Visit Type 2 diabetes mellitus with diabetic polyneuropathy, without long-term current use of insulin ([facility]) Relevant Medications glipiZIDE (Glucotrol) 5 mg tablet Hypertension - Primary Relevant Medications ezetimibe (Zetia) 10 mg tablet spironolactone (Aldactone) 25 mg tablet losartan (Cozaar) 100 mg tablet Other Visit Diagnoses TIA (transient ischemic attack) Relevant Medications ezetimibe (Zetia) 10 mg tablet spironolactone (Aldactone) 25 mg tablet losartan (Cozaar) 100 mg tablet documented in this encounter [facility] Work Phone: 04-02-2023 Instructions Daniel Almanzar MD - 04/02/2023 10:20 AM EDT Stop losartan hydrochlorothiazide 100/25 daily. Start losartan 100 mg daily Start spironolactone 25 mg daily Start Zetia 10 mg once daily documented in this encounter [facility] Work Phone: 03-20-2023 History of Present illness Narrative 82-year-old male comes in today for bilateral shoulder pain. He has known osteoarthritis. He is retired. He is [id number]. His shoulder pain has worsened recently and is beginning to interfere with his activities of daily living. The right shoulder was particularly bad a few days ago although it has recovered somewhat. His right shoulder is much worse than his left clinically. [facility] [address] Work Phone: 02-22-2023 History of Present illness Narrative Subjective Patient ID: Kitty Vergara is a 82 y.o. male who presents for Follow-up. HPI Diabetes Type II - Takes and tolerates medications. No hypoglycemia. Counseled on diet with low carbohydrate intake, weight loss and increased activity levels/exercise. Hypertension - Takes medication without side effects. No CP/SOB/Palpitations. Follows a no added salt diet. Counseled diet, activity and weight loss. Hyperlipidemia - Takes and tolerates medications without fatigue and myalgias. Right shoulder pain. Refer to Dr. Louise. Ibuprofen helps with the shoulder for now would not use anything stronger. His weight is up but his A1c is down to 7.1 and his kidney function is better at 1.7. Continue the good fluid intake and the good carbohydrate diet changes. Still eating too much overall. 1/6 systolic ejection murmur heard best at the aortic area. We will just follow clinically. Review of Systems Constitutional: Negative for fatigue. Eyes: Negative for visual disturbance. Respiratory: Negative for cough, chest tightness and shortness of breath. Cardiovascular: Negative for chest pain and palpitations. Gastrointestinal: Negative for abdominal pain, constipation and diarrhea. Musculoskeletal: Positive for arthralgias. Skin: Negative for rash. Neurological: Negative for headaches. Objective BP 132/78 Pulse 75 Ht 1.791 m (5' 10.5") Wt 109 kg (240 lb) SpO2 96% BMI 33.95 kg/m Physical Exam Constitutional: Appearance: Normal appearance. HENT: Head: Normocephalic and atraumatic. Cardiovascular: Rate and Rhythm: Normal rate and regular rhythm. Heart sounds: Murmur heard. Pulmonary: Effort: Pulmonary effort is normal. Breath sounds: Normal breath sounds. Skin: General: Skin is warm and dry. Neurological: General: No focal deficit present. Mental Status: He is alert and oriented to person, place, and time. Gait: Gait normal. Psychiatric: Mood and Affect: Mood normal. Behavior: Behavior normal. Thought Content: Thought content normal. Judgment: Judgment normal. Assessment/Plan Problem List Items Addressed This Visit Nervous Type 2 diabetes mellitus with diabetic polyneuropathy, without long-term current use of insulin ([facility]) Relevant Orders CBC Comprehensive Metabolic Panel Hemoglobin A1C Thyroid Stimulating Hormone Circulatory Hypertension - Primary Musculoskeletal Chronic right shoulder pain Relevant Orders Referral to Orthopaedic Surgery Other Hyperlipidemia Other Visit Diagnoses Diabetic polyneuropathy associated with type 2 diabetes mellitus (CMS/HCC) documented in this encounter [facility] Work Phone: 01-23-2023 Miscellaneous Notes Patient's spouse contacted at this time Updated that prescription has been sent Patient's spouse says patient has already picked up medication Closing encounter Patient wants a call to let him know rx was sent The following approved medication requests have been transmitted electronically. Requested Prescriptions Signed Prescriptions Disp Refills gabapentin (NEURONTIN) 300 mg capsule 60 capsule 2 Sig: Take 1 capsule by mouth twice daily for 30 days. Authorizing Provider: MARY JUNIOR APRN.[employer]INE ENGINEERING [employer]PERVISOR Pharmacy verified in [place] Patient has been identified by name and date of : Yes Patient requesting a call when RX is approved and sent to the pharmacy. Please call patient at: [phone] Patient phones for refill(s): Requested Prescriptions Pending Prescriptions Disp Refills gabapentin (NEURONTIN) 300 mg capsule 60 capsule 2 Sig: Take 1 capsule by mouth twice daily for 30 days. Patient is completely out of medication Date of last office visit : 01/03/2023 Date of next office visit : 04/06/2023 Last 2 Encounter Wt Readings: Date: Wt: 01/03/2023 110.3 kg (243 lb 1.6 oz) 11/20/2022 108.4 kg (239 lb) Please advise. Germania Saucedo documented in this encounter [facility] 01-03-2023 History of Present illness Narrative SUBJECTIVE: Kitty Vergara presents to [facility] for a follow up appointment for medication refill. Since the last visit, Kitty Vergara states the pain has been same. Current pain intensity is 0 on a scale of 0-10. Pain located in both shoulders area and radiates down the posterior arm. Pain described as aching The patient Denies numbness and tingling. Symptoms interfere with reaching for shelves and lifting. Pain is exacerbated by lifting. Pain is mitigated by medications. The medications are effective. The patient states the last dose of . Neurontin/gabapentin was taken this morning at 8:15a. REVIEW OF SYSTEMS: Constitutional: (-) Weight Gain (-) Weight Loss (-) Fatigue Cardiovascular: (-) hx heart surgery (-) Pacemaker Respiratory: (-) Shortness of Breath (-) Cough (+) Snoring Gastrointestinal: (-) Incontinence (-) Diarrhea (-) Constipation (-) Nausea/Vomiting Endocrine: (-) Thyroid Disorder (+) Diabetes Hematologic: (-) Prolonged Bleeding (+) Easy Bruising Genitourinary: (+) Incontinence (+) Frequency (+) Urinary Urgency Skin: (-) Open sores/wound Neurologic: (-) Headache (-) Double Vision Psychiatric: (-) Depression (-) Anxiety (-) Personal History of Alcohol or Substance Abuse (-) Family History of Alcohol or Substance Abuse CHIEF COMPLAINT:Patient presents with: Pain Refill Request OBJECTIVE: Pulse 87 Ht 5' 10" (1.78m) Wt 243 lb 1.6 oz (110.3kg) SpO2 97% BMI 34.88 kg/(m^2). PHYSICAL EXAMINATION: General appearance: Well appearing, in no acute distress, alert and oriented x3 Skin: Skin color, texture, turgor normal, no rashes or lesions Neck: Tenderness to palpation over the cervical paraspinous muscles. ROM intact Cardiovascular: Regular, rate and rhythm Lungs: Normal respiratory rate and rhythm, Lungs clear to auscultation Extremities: No deformities, edema, or skin discoloration. Good capillary refill. Musculoskeletal: Chronic bilateral shoulder pain Neuro: No loss of sensation is noted. Motor skills intact Station and Gait: antalgic gait Motor: Exhibits full strength in all four extremities. Trigger points: none. ASSESSMENT: Assessment : Patient presents for follow-up visit. He was accompanied by with Patient has a history of neuropathy in his hands and feet Patient reports that his neck pain has been stable Patient has a history of chronic bilateral shoulder. He reports it is worse at night. A referral has been placed for orthopedics. At this time appointment has been scheduled Patient takes gabapentin to help reduce the neuropathy symptoms Encounter Diagnosis ICD-10-CM 1. Bilateral shoulder pain, unspecified chronicity M25.511 M25.512 2. Diabetic peripheral neuropathy (HCC) E11.42 gabapentin (NEURONTIN) 300 mg capsule 3. DDD (degenerative disc disease), cervical M50.30 PDMP website checked and validated. All prescriptions have been APPROPRIATELY filled. No suspicious activity was identified. 01/03/2023 by Mary Junior APRN.CNP Narcotic Agreement reviewed and signed?: N/A on January 03, 2023 The pain panel was N/A PLAN: Injection history was reviewed. Medication use and compliance were reviewed. 1. Continue medication management through the [facility] 2. The following approved medication requests have been transmitted electronically. Requested Prescriptions Signed Prescriptions Disp Refills gabapentin (NEURONTIN) 300 mg capsule 60 capsule 2 Sig: Take 1 capsule by mouth twice daily for 30 days. 3. Interventional procedure options discussed. none 4. Encouraged regular home exercise program. 5. Reminded to schedule Ortho appt 6) F/U in 3 months I spent a total of 25 minutes on the date of the service which included preparing to see the patient, [id number] patient care, completing clinical documentation, performing a medically appropriate examination, and ordering medications, tests, or procedures. The above plan and management options were discussed at length with patient. Patient is in agreement with the above and verbalized understanding. Mary Junior APRN, CNP January 03, 2023 documented in this encounter [facility] 12-28-2022 Miscellaneous Notes Patient contacted this time Provided sincerest apologies for oversight Patient was very understanding Informed patient this RN would have Dr. Gore review imaging when he returned to office tomorrow 12/29/2022 Patient also scheduled follow up with Mary Junior CNP on 01/03/2023 Patient called stating he called days ago asking if he can please have a call back to go over his xray results from several weeks ago. (Phone enc not seen). Asked if he can please have a phone call today. TY documented in this encounter [facility] 12-04-2022 Miscellaneous Notes Radiology Service Progress Note PATIENT NAME: Kitty Vergara DATE OF SERVICE: December 04, 2022 TIME: 3:22 PM PATIENT IDENTITY VERIFICATION COMPLETED USING TWO (2) IDENTIFIERS: Name and Date of confirmed by patient verbally. FALL SCREENING: Has the patient had 2 falls in the last year or 1 fall with injury or currently using an Ambulatory Assistive Device (Walker, Cane, Wheelchair, Crutches, etc.)? No PATIENT GENDER DATA: Male PATIENT RELEVANT IMPLANT DATA REVIEWED: Not Applicable RADIOLOGY DEPARTMENT: General X-ray: Exam(s) Completed: Spine X-Ray(s): Cervical AP / LAT / OBL Upper Extremity X-Ray(s): Shoulder, AP / TRUE AP / AXILLARY bilateral PERIPHERAL IV DATA: Not applicable SIGNED BY: RT Jeremy(R) December 04, 2022 3:22 PM documented in this encounter [facility] 12-04-2022 Progress note Formatting of t his note might be different from the original. Radiology Service Progress Note PATIENT NAME: Kitty Vergara DATE OF SERVICE: December 04, 2022 TIME: 3:22 PM PATIENT IDENTITY VERIFICATION COMPLETED USING TWO (2) IDENTIFIERS: Name and Date of confirmed by patient verbally. FALL SCREENING: Has the patient had 2 falls in the last year or 1 fall with injury or currently using an Ambulatory Assistive Device (Walker, Cane, Wheelchair, Crutches, etc.)? No PATIENT GENDER DATA: Male PATIENT RELEVANT IMPLANT DATA REVIEWED: Not Applicable RADIOLOGY DEPARTMENT: General X-ray: Exam(s) Completed: Spine X-Ray(s): Cervical AP / LAT / OBL Upper Extremity X-Ray(s): Shoulder, AP / TRUE AP / AXILLARY bilateral PERIPHERAL IV DATA: Not applicable SIGNED BY: RT Jeremy(R) December 04, 2022 3:22 PM [facility] 12-04-2022 History of Present illness Narrative SUBJECTIVE: Kitty Vergara presents to [facility] for a follow up appointment for arm/hands pain. Since the last visit, Kitty Vergara states the pain has been better. Current pain intensity is 2 on a scale of 0-10. Pain located in bilateral feet, shoulders, and hands. Pain described as burning, shooting, numbness, and sharp The patient reports weakness and stiffness. Symptoms interfere with sleeping. Pain is exacerbated by evenings. Pain is mitigated by medications: Gabapentin. The medications are partially effective. The patient states the last dose of Gabapentin was this morning. REVIEW OF SYSTEMS: Constitutional: (-) Weight Gain (-) Weight Loss (-) Fatigue Cardiovascular: (-) hx heart surgery (-) Pacemaker Respiratory: (-) Shortness of Breath (-) Cough (-) Snoring Gastrointestinal: (-) Incontinence (-) Diarrhea (-) Constipation (-) Nausea/Vomiting Endocrine: (-) Thyroid Disorder (+) Diabetes Hematologic: (-) Prolonged Bleeding (+) Easy Bruising Genitourinary: (-) Incontinence (+) Frequency (-) Urinary Urgency Skin: (-) Open sores/wound Neurologic: (-) Headache (-) Double Vision Psychiatric: (-) Depression (-) Anxiety (-) Personal History of Alcohol or Substance Abuse (-) Family History of Alcohol or Substance Abuse CHIEF COMPLAINT:Patient presents with: Neuropathy Pain (Shoulder Pain) Neck Pain OBJECTIVE: There were no vitals taken for this visit. PHYSICAL EXAMINATION: General appearance: Well appearing, in no acute distress, alert and oriented x3 Skin: Skin color, texture, turgor normal, no rashes or lesions Neck: Tenderness to palpation over the cervical paraspinous muscles. Intact ROM Cardiovascular: Regular, rate and rhythm Lungs: Normal respiratory rate and rhythm, Lungs clear to auscultation Musculoskeletal: Bilateral shoulder pain. Decreased ROM Neuro: No loss of sensation is noted. Motor skills intact Station and Gait: antalgic gait Motor: Displays weakness of the UEs Trigger points: paravertebral cervical muscles. ASSESSMENT: Assessment : Patient presents for follow-up visit. He is accompanied with his Patient reports that he has pain in his bilateral shoulders and neck He has neuropathy in his hands and feet Discussed ordering shoulder x-rays. He reports the pain radiates down the left arm He has decreased range of motion Discussed muscle relaxer. Will trial Robaxin Consider orthopedics Encounter Diagnosis ICD-10-CM 1. Bilateral shoulder pain, unspecified chronicity M25.511 XR SHOULDER GENERAL 3V OR MORE AP/TRUE AP/OTHER LEFT M25.512 XR SHOULDER GENERAL 3V OR MORE AP/TRUE AP/OTHER RIGHT 2. DDD (degenerative disc disease), cervical M50.30 XR CERV OTHER 4V AP/LAT/OBL 3. Diabetic peripheral neuropathy (HCC) E11.42 PDMP website checked and validated. All prescriptions have been APPROPRIATELY filled. No suspicious activity was identified. 12/04/2022 by Mary Junior APRN.RICARDO Narcotic Agreement reviewed and signed?: N/A on December 04, 2022 The pain panel was N/A PLAN: Injection history was reviewed. Medication use and compliance were reviewed. 1. Continue medication management through the [facility] 2. The following approved medication requests have been transmitted electronically. Requested Prescriptions Signed Prescriptions Disp Refills methocarbamol (ROBAXIN) 500 mg tablet 60 tablet 0 Sig: Take 1 tablet by mouth twice daily as needed. 3. Ordered cervical xr 4. Ordered bilateral shoulder xrs 5. Consider referral to Ortho 6) F/U in prn I spent a total of 30 minutes on the date of the service which included preparing to see the patient, [id number] patient care, completing clinical documentation, performing a medically appropriate examination, and ordering medications, tests, or procedures. The above plan and management options were discussed at length with patient. Patient is in agreement with the above and verbalized understanding. Mary Junior APRN, CNP December 04, 2022 documented in this encounter [facility] 11-20-2022 History of Present illness Narrative SUBJECTIVE: Kitty Vergara presents to [facility] for a follow up appointment for medication refills. Since the last visit, Kitty Vergara states the pain has been better. Current pain intensity is 2 on a scale of 0-10. Pain located in bilateral feet, shoulders, and hands. Pain described as burning, numbness, and sharp The patient Denies leg weakness and stiffness. Symptoms interfere with sleeping. Pain is exacerbated by evenings. Pain is mitigated by medications: Gabapentin and Tramadol. The medications are partially effective. The patient states the last dose of Gabapentin was taken last night. REVIEW OF SYSTEMS: Constitutional: (-) Weight Gain (-) Weight Loss (-) Fatigue Cardiovascular: (-) hx heart surgery (-) Pacemaker Respiratory: (-) Shortness of Breath (-) Cough (-) Snoring Gastrointestinal: (-) Incontinence (-) Diarrhea (-) Constipation (-) Nausea/Vomiting Endocrine: (-) Thyroid Disorder (+) Diabetes Hematologic: (-) Prolonged Bleeding (+) Easy Bruising Genitourinary: (-) Incontinence (+) Frequency (-) Urinary Urgency Skin: (-) Open sores/wound Neurologic: (-) Headache (-) Double Vision Psychiatric: (-) Depression (-) Anxiety (-) Personal History of Alcohol or Substance Abuse (-) Family History of Alcohol or Substance Abuse CHIEF COMPLAINT:Patient presents with: Follow Up OBJECTIVE: Pulse 81 Wt 239 lb (108.4kg) SpO2 96% PHYSICAL EXAMINATION: General appearance: Well appearing, in no acute distress, alert and oriented x3 Skin: Skin color, texture, turgor normal, no rashes or lesions Neck: No pain to palpation over the cervical paraspinous muscles. No pain with neck flexion, extension, or lateral flexion Cardiovascular: Regular, rate and rhythm Lungs: Normal respiratory rate and rhythm, Lungs clear to auscultation Spine: DeniesTenderness on palpation: Lumbar/Pelvic none Extremities: No deformities, edema, or skin discoloration. Good capillary refill. Neuro: Motor skills intact Station and Gait: antalgic gait ASSESSMENT: Assessment : Patient presents for follow-up visit for medication refills Patient has a history of diabetic neuropathy in the bilateral feet, hands and shoulders He describes the pain as aching and losing feeling in the hands or fingers He is currently on gabapentin 100 mg takes 2 capsules twice daily. He is interested in increasing his dose. Discussed increasing the dose to 300 mg twice daily. Will consider 3 times daily based on side effects and response. Encounter Diagnosis ICD-10-CM 1. Diabetic peripheral neuropathy (HCC) E11.42 gabapentin (NEURONTIN) 300 mg capsule PDMP website checked and validated. All prescriptions have been APPROPRIATELY filled. No suspicious activity was identified. 11/20/2022 by Mary Junior APRN.CNP Narcotic Agreement reviewed and signed?: N/A on November 20, 2022 The pain panel was N/A Discussion: A discussion was entertained regarding multicomponent back pain source. Discussed conservative options and focus on improvement of function. Discussed the rationale behind interventional approach and how it can facilitate improvement of pain but also diagnostic information that procedures provide. joint terminal attack controller use of any opioid pain medication is discouraged in chronic benign pain. PLAN: Injection history was reviewed. Medication use and compliance were reviewed. 1. Continue medication management through the [facility] 2. The following approved medication requests have been transmitted electronically. Requested Prescriptions Signed Prescriptions Disp Refills gabapentin (NEURONTIN) 300 mg capsule 60 capsule 1 Sig: Star with 1 caps by mouth at bedtime for 5-7 days, if no side effects then increase to BID 3. Interventional procedure options discussed. none 4. Encouraged regular home exercise program. 5) F/U in 3 months I spent a total of 20 minutes on the date of the service which included preparing to see the patient, [id number] patient care, completing clinical documentation, performing a medically appropriate examination, and ordering medications, tests, or procedures. The above plan and management options were discussed at length with patient. Patient is in agreement with the above and verbalized understanding. Mary Junior APRN, CNP November 20, 2022 documented in this encounter [facility] 11-01-2022 Note Post Operative Note: PreOp Diagnosis: Soft tissue mass scalp Post-Procedure Diagnosis: Soft tissue mass scalp Procedure: Excision soft tissue mass of scalp Surgeon: Selina Bhakta Resident/Fellow/Other Physical Education Department Chair: n/a Anesthesia: MAC Estimated Blood Loss (mL): 10cc Specimen: yes. Soft tissue mass scalp Complications: None Findings: Soft tissue mass scalp measuring 1.5cm diameter. Patient Returned To/Condition: PACU / Stable Operative Report Dictated: Dictation: not applicable - note contains Operative Report Operative Report: Indication: Patient is an 82-year-old male with a soft tissue mass on his scalp. He has had numerous of these removed int he past and this one is now large enough that it is bothersome to him when brushing his hair or at the andrade. Risks and benefits of excision were discussed and the patient was agreeable to proceed with surgery. Procedure: The patient was brought to the operating room and placed in supine with reverse Trendelenburg positioning. Sedation was provided. The patient's scalp was prepped and draped. Local anesthetic was injected and an incision was made overlying the soft tissue mass. This was very superficial with thinning of the skin in this area. The mass was circumferentially dissected using combination of blunt dissection and electrocautery. The mass was removed and passed off the surgical field as specimen. It measured 1.5cm diameter. The wound was irrigated. Hemostasis was obtained. The incision was closed with skin joey. The patient tolerated the procedure well and transferred to PACU in stable condition. Electronic Signatures: Selina Bhakta) (Signed 01-Nov-2022 07:51) Authored: Post Operative Note, Note Completion Last Updated: 01-Nov-2022 07:51 by Selina Bhakta) [facility] 11-01-2022 Note History & Physical R eviewed: I have reviewed the History and Physical dated: 26-Oct-2022 History and Physical reviewed and relevant findings noted. Patient examined to review pertinent physical findings.: No significant changes Home Medications Reviewed: no changes noted Allergies Reviewed: no changes noted ERAS (Enhanced Recovery After Surgery): ERAS Patient: no Consent: COVID-19 Consent: COVID-19 Risk ConsentSurgeon has reviewed davis risks related to the risk of kanwal COVID-19 and if they contract COVID-19 what the risks are. Electronic Signatures: Selina Bhakta) (Signed 01-Nov-2022 06:45) Authored: History & Physical Reviewed, ERAS, Consent, Note Completion Last Updated: 01-Nov-2022 06:45 by Selina Bhakta) [facility] 07-24-2022 History of Present illness Narrative [facility] Pain Management Department Date: July 24, 2022 - 9:45 AM Kitty Vergara is self referred. Chief Complaint: peripheral neuropathy SUBJECTIVE: Kitty Vergara, is a 82 year old male who presents with peripheral neuropathy. The pain started years ago, with no known injury or trauma. The pain onset was gradual in nature. The patient states that the current pain is persistent. His pain is located in the bilateral feet from ankle distally and over the last 6 months, he is having bilateral hand pain symptoms. The pain is described as burning, sharp, and numbness. The pain intensity is rated 0. The pain is exacerbated by evenings and no medications and relieved by medications - Gabapentin and Tramadol. Symptoms interfere with sleeping. Litigation: No. Worker's Compensation: No. Prior pain treatment has included medications: Gabapentin and Tramadol with substantial relief. ALLERGIES Not on File Current Medications: Pain medications reviewed and reconciled in the medication list: Yes. Current Outpatient Medications Medication Sig losartan-hydroCHLOROthiazide (HYZAAR) 100-25 mg per tablet Take 1 tablet by mouth once daily. allopurinol (ZYLOPRIM) 300 mg tablet Take 300 mg by mouth once daily. glipiZIDE (GLUCOTROL) 5 mg tablet Take 5 mg by mouth twice daily. metFORMIN ER (GLUCOPHAGE XR) 500 mg 24 hr tablet Take 1,000 mg by mouth once daily. gabapentin (NEURONTIN) 100 mg capsule TAKE 1 TO 2 CAPSULES BY MOUTH ONCE DAILY IN THE AFTERNOON AND AT BEDTIME No current facility-administered medications for this visit. No past medical history on file. No past surgical history on file. No family history on file. Social History: Alcohol Use: Not on file Tobacco Use: Not on file Drug Use: Not on file Employer And Job Title: None on file Years Of Education Completed: Not specified Marital Status: REVIEW OF SYSTEMS: Constitutional: (-) Fever (-) Night Sweats (-) Weight Gain (-) Weight Loss (-) Fatigue Cardiovascular: (-) Chest Pain (-) Palpitations (+) Lightheadedness (+) Swelling of Ankles (-) Hx Heart Surgery Respiratory: (-) Shortness of Breath (+) Cough (-) Wheezing (-) Snoring Gastrointestinal: (-) Incontinence (-) Abdominal Pain (-) Diarrhea (-) Constipation (-) Nausea/Vomiting (-) Heart Burn Endocrine: (-) Thyroid Disorder (+) Diabetes Hematologic: (-) Prolonged Bleeding (+) Easy Bruising Genitourinary: (-) Incontinence (+) Frequency (-) Urinary Urgency Skin: (-) Rashes (-) Itching (-) Other Lesions Neurologic: (-) Headache (-) Double Vision (-) Confusion (-) Paralysis (-) Vertigo (-) Syncope Psychiatric: (-) Depression (-) Anxiety (-) Delusions (-) Hallucinations (-) Suicidal Thoughts OARRS Report reviewed: Yes Narcotic Agreement reviewed and signed?: N/A Baseline Urine Toxicology obtained: N/A Urine Panel: No results found for: UQCANN, UQBNZL, UEM0OEJ, UQAMPH, UQMAMP, UQBUPRE, UQNORBUP, UQMTHD, UQEDDP, UQTRAM, UQDTRM, UQFNTL, UQNFTL, UQCODE, UQMORP, UQDCDN, UQHCOD, UQOXYC, UQHMOR, UQOXYM, UQCREA, UQPH, UQSPGR, UQOXID, UQSPQ The pain panel was N/A OBJECTIVE: Performed in conjunction with observation. The patient was alert and oriented x3. The patient was in no acute distress. Lungs: Clear, negative for dyspnea or distress. CVR: Negative for SOB or peripheral edema. Neck: Supple. The range of motion was intact. Negative focal tenderness Back: Range of motion of the trunk was intact. Negative focal tenderness.. SLR: Negative Facet Loading: Equivocal with axial loading and extension. Extremities: no reported edema or erythema. Motor: Negative focal deficits Sensory: Intact to light touch and sharp throughout the upper and lower extremities. Increased hypersensitivity over the distal fingertips bilaterally and the feet or ankles bilaterally. Gait: Within normal limits Medical record and diagnostic tests reviewed for today's visit: The [facility] EMR was reviewed during the visit IMAGING STUDIES: No new imaging studies were reviewed during this office visit. ASSESSMENT: (E11.42) Diabetic peripheral neuropathy (HCC) (primary encounter diagnosis) (E11.9) Diabetes mellitus, non-insulin dependent (NIDDM or type II) (HCC) PLAN: 1. The patient has been on gabapentin 200 mg twice daily dosing with overall good response. Recommend continuing with gabapentin 200 mg 1 p.o. twice daily. 2. No interventional procedures indicated 3. Discussed physical therapy and ongoing exercise program. 4. Counseled patient regarding the importance of diet and exercise. 5. Follow up: 3 months. The above plan and management options were discussed with patient. The patient is in agreement with the above and verbalized understanding. I have discussed and confirmed the above treatment plan with the patient and I have reviewed the nurses notes and I am aware of the family/social history. I have confirmed ROS findings. Diego Gore MD July 24, 2022 cc: SELF Phone: N/A Fax: Results of consultation to be transmitted via electronic medical record for those providers who practice within [facility] or with access to [place] via [facility] [employer], or via letter. documented in this encounter [facility] 07-21-2022 Miscellaneous Notes Patient contacted via telephone regarding upcoming NEW patient appointment with Dr. Gore on 07/24/22. Patient informed of the following: This is the [facility] calling regarding your upcoming appointment with Dr. Gore. To avoid a delay in your care, please bring any imaging (such as MRI, CT, XR, etc.) that have been done outside of the [facility] on a disk to be viewed at your appointment. Please be advised that this appointment is a consult only and narcotics will NOT be prescribed. Dr. Gore is primarily an interventional pain management provider. He treats with physical therapy, injections of the spine or joints, and non-narcotic medications. Dr. Gore will not take over and manage any medications that are already being prescribed by another provider." Patient verbalized understanding with no additional questions at this time. documented in this encounter [facility] 02-20-2022 History of Present illness Narrative Echo was okay TALAT test was okay.Creatinine was up a little bit on the daily Lasix. He did get a little lightheaded and stopped it. Did help him a little bit with the swelling of his legs. His weight is down another 3 pounds. He is down 12 pounds over the last 3 months.Sugar is up the most thyroid is off a little bit kidney is off a little bit. At this point his weight loss and better eating I think is helped him a lot.To new problems where he had vision changes in both eyes that was just sort of blurry and got better. I believe the next day or 2 he had a acute sharp pain behind his right eye that lasted for hours. He had no other vision changes at that time. He was able to go to sleep and when he woke up the headache was gone. He has not had a past medical history of migraines. Did not get the so distraught affect usually with an ocular migraine.Has had a little bit of some balance issues over the last couple years that have not necessarily gotten worse recently.Renal the nonspecific changes he has, recommend an MRI, CRP and an ESR test.No office visit follow-up scheduled yet. 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) [facility] Diabetic peripheral neuropathy (HCC) Type II or unspecified type diabetes mellitus with neurological manifestations, not stated as uncontrolled [facility] Diagnosis Bilateral shoulder pain, unspecified chronicity- Primary DDD (degenerative disc disease), cervical Degeneration of cervical intervertebral disc Diabetic peripheral neuropathy (HCC) Type II or unspecified type diabetes mellitus with neurological manifestations, not stated as uncontrolled [facility] Diagnosis Bilateral shoulder pain, unspecified chronicity- Primary Diabetic peripheral neuropathy (HCC) Type II or unspecified type diabetes mellitus with neurological manifestations, not stated as uncontrolled DDD (degenerative disc disease), cervical Degeneration of cervical intervertebral disc [facility] Diabetic peripheral neuropathy (HCC) Type II or unspecified type diabetes mellitus with neurological manifestations, not stated as uncontrolled [facility] Diagnosis Primary hypertension- Primary Unspecified essential hypertension Mixed hyperlipidemia Chronic right shoulder pain Pain in joint, shoulder region Diabetic polyneuropathy associated with type 2 diabetes mellitus (CMS/HCC) Type 2 diabetes mellitus with diabetic polyneuropathy, without long-term current use of insulin (CMS/HCC) documented in this encounter [facility] Work Phone: Evaluation note* Diagnosis Primary hypertension- Primary Unspecified essential hypertension TIA (transient ischemic attack) Unspecified transient cerebral ischemia Type 2 diabetes mellitus with diabetic polyneuropathy, without long-term current use of insulin (CMS/HCC) documented in this encounter [facility] Work Phone: Evaluation note* Diagnosis Diabetic peripheral neuropathy (HCC) Type II or unspecified type diabetes mellitus with neurological manifestations, not stated as uncontrolled [facility] Diagnosis Mixed hyperlipidemia- Primary Primary hypertension Unspecified essential hypertension Type 2 diabetes mellitus with diabetic polyneuropathy, without long-term current use of insulin (CMS/HCC) documented in this encounter [facility] Work Phone: [phone] note* Diagnosis Primary hypertension- Primary Unspecified essential hypertension Type 2 diabetes mellitus with diabetic polyneuropathy, without long-term current use of insulin (CMS/HCC) Chronic renal impairment, stage 3b (CMS/HCC) documented in this encounter [facility] Work Phone: [phone] note* Diagnosis Primary hypertension- Primary Unspecified essential hypertension Type 2 diabetes mellitus with diabetic polyneuropathy, without long-term current use of insulin (CMS/HCC) Edema of both legs Edema documented in this encounter [facility] Work Phone: Evaluation note* Diagnosis Chronic pain of both shoulders- Primary Hip pain, bilateral Pain in joint, pelvic region and thigh Hip pain, bilateral Pain in joint, pelvic region and thigh documented in this encounter [facility] Work Phone: [phone] note* Diagnosis Type 2 diabetes mellitus with diabetic polyneuropathy, without long-term current use of insulin (CMS/HCC)- Primary Primary hypertension Unspecified essential hypertension Edema of both legs Edema documented in this encounter [facility] Work Phone: [phone] note* Diagnosis Chronic right shoulder pain- Primary Pain in joint, shoulder region Primary osteoarthritis of right shoulder Chronic right shoulder pain Pain in joint, shoulder region documented in this encounter [facility] Work Phone: [phone] note* Diagnosis Chronic right shoulder pain Pain in joint, shoulder region documented in this encounter [facility] Work Phone: Evaluation note* Diagnosis Chronic right shoulder pain Pain in joint, shoulder region documented in this encounter [facility] Work Phone: [phone] note* Diagnosis Primary hypertension- Primary Unspecified essential hypertension Type 2 diabetes mellitus with diabetic polyneuropathy, without long-term current use of insulin ([facility]) documented in this encounter [facility] Work Phone: [phone] note* Diagnosis Type 2 diabetes mellitus with diabetic polyneuropathy, without long-term current use of insulin (CMS/HCC)- Primary Primary hypertension Unspecified essential hypertension documented in this encounter [facility] Work Phone: [phone] note* Diagnosis Primary osteoarthritis of right shoulder documented in this encounter [facility] Work Phone: [phone] note* Diagnosis Primary osteoarthritis of right shoulder documented in this encounter [facility] Work Phone: [phone] note* Diagnosis Primary hypertension- Primary Unspecified essential hypertension Type 2 diabetes mellitus with diabetic polyneuropathy, without long-term current use of insulin (Multi) Chronic renal impairment, stage 3b (Multi) documented in this encounter [facility] Work Phone: [phone] note* Diagnosis Primary osteoarthritis of right shoulder documented in this encounter [facility] Work Phone: [phone] note* Diagnosis Diabetic peripheral neuropathy (HCC) Type II or unspecified type diabetes mellitus with neurological manifestations, not stated as uncontrolled [facility] Diagnosis Bilateral shoulder pain, unspecified chronicity DDD (degenerative disc disease), cervical Degeneration of cervical intervertebral disc [facility] Diagnosis Chronic pain of both shoulders- Primary Hip pain, bilateral Pain in joint, pelvic region and thigh Chronic right shoulder pain- Primary Pain in joint, shoulder region Primary osteoarthritis of right shoulder Chronic right shoulder pain Pain in joint, shoulder region 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 Chronic right shoulder pain Pain in joint, shoulder region documented in this encounter [facility] Work Phone: Evaluation note* Diagnosis Chronic pain of both shoulders- Primary Hip pain, bilateral Pain in joint, pelvic region and thigh Chronic right shoulder pain- Primary Pain in joint, shoulder region Primary osteoarthritis of right shoulder Chronic right shoulder pain Pain in joint, shoulder region 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, without long-term current use of insulin (Multi)- Primary Primary hypertension Unspecified essential hypertension Chronic renal impairment, stage 3b (Multi) Chronic GERD documented in this encounter [facility] Work Phone: Evaluation note* Diagnosis Chronic pain of both shoulders- Primary Hip pain, bilateral Pain in joint, pelvic region and thigh Chronic right shoulder pain- Primary Pain in joint, shoulder region Primary osteoarthritis of right shoulder Chronic right shoulder pain Pain in joint, shoulder region 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 Type 2 diabetes mellitus without complication, unspecified whether group home insulin use (Multi)- Primary Hypoglycemia Hypoglycemia, unspecified Multiple skin tears Hypokalemia Hypopotassemia documented in this encounter [facility] Work Phone: Evaluation note* Diagnosis Chronic pain of both shoulders- Primary Hip pain, bilateral Pain in joint, pelvic region and thigh Chronic right shoulder pain- Primary Pain in joint, shoulder region Primary osteoarthritis of right shoulder Chronic right shoulder pain Pain in joint, shoulder region 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 Chronic right shoulder pain Pain in joint, shoulder region Type 2 diabetes mellitus with diabetic polyneuropathy, without long-term current use of insulin- Primary 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) Primary hypertension Unspecified essential hypertension documented in this encounter [facility] Work Phone: Evaluation note* Diagnosis Chronic pain of both shoulders- Primary Hip pain, bilateral Pain in joint, pelvic region and thigh Chronic right shoulder pain- Primary Pain in joint, shoulder region Primary osteoarthritis of right shoulder Chronic right shoulder pain Pain in joint, shoulder region 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 documented in this encounter [facility] Work Phone: Evaluation note* Diagnosis Chronic pain of both shoulders- Primary Hip pain, bilateral Pain in joint, pelvic region and thigh Chronic right shoulder pain- Primary Pain in joint, shoulder region Primary osteoarthritis of right shoulder Chronic right shoulder pain Pain in joint, shoulder region 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 documented in this encounter [facility] Work Phone: Evaluation note* Diagnosis Chronic pain of both shoulders- Primary Hip pain, bilateral Pain in joint, pelvic region and thigh Chronic right shoulder pain- Primary Pain in joint, shoulder region Primary osteoarthritis of right shoulder Chronic right shoulder pain Pain in joint, shoulder region 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, without long-term current use of insulin documented in this encounter [facility] Work Phone: Evaluation note* Diagnosis Chronic pain of both shoulders- Primary Hip pain, bilateral Pain in joint, pelvic region and thigh Chronic right shoulder pain- Primary Pain in joint, shoulder region Primary osteoarthritis of right shoulder Chronic right shoulder pain Pain in joint, shoulder region 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 Chronic right shoulder pain Pain in joint, shoulder region Primary hypertension- Primary Unspecified essential hypertension 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) Mixed hyperlipidemia Type 2 diabetes mellitus with diabetic polyneuropathy, without long-term current use of insulin documented in this encounter [facility] Work Phone: Evaluation note* Diagnosis Chronic pain of both shoulders- Primary Hip pain, bilateral Pain in joint, pelvic region and thigh Chronic right shoulder pain- Primary Pain in joint, shoulder region Primary osteoarthritis of right shoulder Chronic right shoulder pain Pain in joint, shoulder region 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 Chronic right shoulder pain Pain in joint, shoulder region Primary hypertension- Primary Unspecified essential hypertension 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) Mixed hyperlipidemia Type 2 diabetes mellitus with diabetic polyneuropathy, 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) documented in this encounter [facility] Work Phone: Evaluation note* Diagnosis Chronic pain of both shoulders- Primary Hip pain, bilateral Pain in joint, pelvic region and thigh Chronic right shoulder pain- Primary Pain in joint, shoulder region Primary osteoarthritis of right shoulder Chronic right shoulder pain Pain in joint, shoulder region 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 Chronic right shoulder pain Pain in joint, shoulder region Primary hypertension- Primary Unspecified essential hypertension 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) Mixed hyperlipidemia Type 2 diabetes mellitus with diabetic polyneuropathy, without long-term current use of insulin Urinary retention- Primary Unspecified retention of urine Glucosuria Glycosuria Lesion of bladder Unspecified disorder of bladder documented in this encounter [facility] Work Phone: Evaluation note* Diagnosis Chronic pain of both shoulders- Primary Hip pain, bilateral Pain in joint, pelvic region and thigh Chronic right shoulder pain- Primary Pain in joint, shoulder region Primary osteoarthritis of right shoulder Chronic right shoulder pain Pain in joint, shoulder region 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 Chronic right shoulder pain Pain in joint, shoulder region Primary hypertension- Primary Unspecified essential hypertension 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) Mixed hyperlipidemia Type 2 diabetes mellitus with diabetic polyneuropathy, 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)- Primary Mixed hyperlipidemia Primary hypertension Unspecified essential hypertension Type 2 diabetes mellitus with diabetic polyneuropathy, without long-term current use of insulin Benign prostatic hyperplasia with urinary obstruction documented in this encounter [facility] Work Phone: Evaluation note* Diagnosis Chronic pain of both shoulders- Primary Hip pain, bilateral Pain in joint, pelvic region and thigh Chronic right shoulder pain- Primary Pain in joint, shoulder region Primary osteoarthritis of right shoulder Chronic right shoulder pain Pain in joint, shoulder region 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 Chronic right shoulder pain Pain in joint, shoulder region Primary hypertension- Primary Unspecified essential hypertension 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) Mixed hyperlipidemia Type 2 diabetes mellitus with diabetic polyneuropathy, 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- Primary Nocturia Urinary retention Unspecified retention of urine Erectile dysfunction, unspecified erectile dysfunction type documented in this encounter [facility] Work Phone: Evaluation note* Diagnosis Chronic pain of both shoulders- Primary Hip pain, bilateral Pain in joint, pelvic region and thigh Chronic right shoulder pain- Primary Pain in joint, shoulder region Primary osteoarthritis of right shoulder Chronic right shoulder pain Pain in joint, shoulder region 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 Chronic right shoulder pain Pain in joint, shoulder region Primary hypertension- Primary Unspecified essential hypertension 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) Mixed hyperlipidemia Type 2 diabetes mellitus with diabetic polyneuropathy, without long-term current use of insulin Dysuria- Primary Lesion of bladder Unspecified disorder of bladder Chronic right shoulder pain- Primary Pain in joint, shoulder region documented in this encounter [facility] Work Phone: Evaluation note* Diagnosis Chronic pain of both shoulders- Primary Hip pain, bilateral Pain in joint, pelvic region and thigh Chronic right shoulder pain- Primary Pain in joint, shoulder region Primary osteoarthritis of right shoulder Chronic right shoulder pain Pain in joint, shoulder region 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 Chronic right shoulder pain Pain in joint, shoulder region Primary hypertension- Primary Unspecified essential hypertension 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) Mixed hyperlipidemia Type 2 diabetes mellitus with diabetic polyneuropathy, 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 Fall, initial encounter- Primary Fall, initial encounter Weakness Other malaise and fatigue Syncope, unspecified syncope type Anemia, unspecified type Bradycardia Other specified cardiac dysrhythmias Hypotension, unspecified hypotension type Hypoxia Hypoxemia Drug-induced sinus bradycardia Unspecified atrial fibrillation (Multi) 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 Lesion of bladder Unspecified disorder of bladder Urinary retention Unspecified retention of urine 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) 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 documented in this encounter [facility] Work Phone: Evaluation note* Diagnosis Chronic pain of both shoulders- Primary Hip pain, bilateral Pain in joint, pelvic region and thigh Chronic right shoulder pain- Primary Pain in joint, shoulder region Primary osteoarthritis of right shoulder Chronic right shoulder pain Pain in joint, shoulder region 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 Chronic right shoulder pain Pain in joint, shoulder region Primary hypertension- Primary Unspecified essential hypertension 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) Mixed hyperlipidemia Type 2 diabetes mellitus with diabetic polyneuropathy, 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)- Primary Primary hypertension Unspecified essential hypertension documented in this encounter [facility] Work Phone: Evaluation note* Diagnosis Chronic pain of both shoulders- Primary Hip pain, bilateral Pain in joint, pelvic region and thigh Chronic right shoulder pain- Primary Pain in joint, shoulder region Primary osteoarthritis of right shoulder Chronic right shoulder pain Pain in joint, shoulder region 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 Chronic right shoulder pain Pain in joint, shoulder region Primary hypertension- Primary Unspecified essential hypertension 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) Mixed hyperlipidemia Type 2 diabetes mellitus with diabetic polyneuropathy, without long-term current use of insulin Primary hypertension- Primary Unspecified essential hypertension Type 2 diabetes mellitus with stage 4 chronic kidney disease, with long-term current use of insulin (Multi) Nonrheumatic aortic valve stenosis documented in this encounter [facility] Work Phone: Evaluation note* Diagnosis Chronic pain of both shoulders- Primary Hip pain, bilateral Pain in joint, pelvic region and thigh Chronic right shoulder pain- Primary Pain in joint, shoulder region Primary osteoarthritis of right shoulder Chronic right shoulder pain Pain in joint, shoulder region 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 Chronic right shoulder pain Pain in joint, shoulder region Primary hypertension- Primary Unspecified essential hypertension 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) Mixed hyperlipidemia Type 2 diabetes mellitus with diabetic polyneuropathy, without long-term current use of insulin Benign prostatic hyperplasia with urinary obstruction- Primary Urinary retention Unspecified retention of urine documented in this encounter [facility] Work Phone: Evaluation note* Diagnosis Chronic pain of both shoulders- Primary Hip pain, bilateral Pain in joint, pelvic region and thigh Chronic right shoulder pain- Primary Pain in joint, shoulder region Primary osteoarthritis of right shoulder Chronic right shoulder pain Pain in joint, shoulder region 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 Chronic right shoulder pain Pain in joint, shoulder region Primary hypertension- Primary Unspecified essential hypertension 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) Mixed hyperlipidemia Type 2 diabetes mellitus with diabetic polyneuropathy, without long-term current use of insulin Edema of both legs- Primary Edema Nonrheumatic aortic valve stenosis Primary hypertension Unspecified essential hypertension documented in this encounter [facility] Work Phone: Evaluation note* Diagnosis Chronic pain of both shoulders- Primary Hip pain, bilateral Pain in joint, pelvic region and thigh Chronic right shoulder pain- Primary Pain in joint, shoulder region Primary osteoarthritis of right shoulder Chronic right shoulder pain Pain in joint, shoulder region 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 Chronic right shoulder pain Pain in joint, shoulder region Primary hypertension- Primary Unspecified essential hypertension 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) Mixed hyperlipidemia Type 2 diabetes mellitus with diabetic polyneuropathy, 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- Primary BPH (benign prostatic hyperplasia)- Primary Unspecified hyperplasia of prostate without urinary obstruction and other lower urinary tract symptoms (LUTS) documented in this encounter [facility] Work Phone: Evaluation note* Diagnosis Chronic pain of both shoulders- Primary Hip pain, bilateral Pain in joint, pelvic region and thigh Chronic right shoulder pain- Primary Pain in joint, shoulder region Primary osteoarthritis of right shoulder Chronic right shoulder pain Pain in joint, shoulder region 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 Chronic right shoulder pain Pain in joint, shoulder region Primary hypertension- Primary Unspecified essential hypertension 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) Mixed hyperlipidemia Type 2 diabetes mellitus with diabetic polyneuropathy, without long-term current use of insulin BPH (benign prostatic hyperplasia)- Primary Unspecified hyperplasia of prostate without urinary obstruction and other lower urinary tract symptoms (LUTS) Routine general medical examination at health care facility- Primary Routine general medical examination at a health care facility Chronic kidney disease (CKD), stage IV (severe) (Multi) Chronic kidney disease, Stage IV (severe) Type 2 diabetes mellitus with stage 4 chronic kidney disease, with long-term current use of insulin (Multi) Edema of both legs Edema Primary hypertension Unspecified essential hypertension Benign prostatic hyperplasia with urinary retention documented in this encounter [facility] Work Phone: Evaluation note* Diagnosis Chronic pain of both shoulders- Primary Hip pain, bilateral Pain in joint, pelvic region and thigh Chronic right shoulder pain- Primary Pain in joint, shoulder region Primary osteoarthritis of right shoulder Chronic right shoulder pain Pain in joint, shoulder region 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 Chronic right shoulder pain Pain in joint, shoulder region Primary hypertension- Primary Unspecified essential hypertension 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) Mixed hyperlipidemia Type 2 diabetes mellitus with diabetic polyneuropathy, without long-term current use of insulin BPH (benign prostatic hyperplasia)- Primary Unspecified hyperplasia of prostate without urinary obstruction and other lower urinary tract symptoms (LUTS) Routine general medical examination at health care facility- Primary Routine general medical examination at a health care facility Chronic kidney disease (CKD), stage IV (severe) (Multi) Chronic kidney disease, Stage IV (severe) Type 2 diabetes mellitus with stage 4 chronic kidney disease, with long-term current use of insulin (Multi) Edema of both legs Edema Primary hypertension Unspecified essential hypertension Mixed hyperlipidemia- Primary Edema of both legs Edema Nonrheumatic aortic valve stenosis Primary hypertension Unspecified essential hypertension Obesity, unspecified class, unspecified obesity type, unspecified whether serious comorbidity present Type 2 diabetes mellitus with stage 4 chronic kidney disease, with long-term current use of insulin (Multi) Non-rheumatic aortic stenosis Nonrheumatic aortic valve stenosis- Primary Benign prostatic hyperplasia with urinary retention Nonrheumatic aortic valve stenosis documented in this encounter [facility] Work Phone: Evaluation note* Diagnosis Chronic pain of both shoulders- Primary Hip pain, bilateral Pain in joint, pelvic region and thigh Chronic right shoulder pain- Primary Pain in joint, shoulder region Primary osteoarthritis of right shoulder Chronic right shoulder pain Pain in joint, shoulder region 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 Chronic right shoulder pain Pain in joint, shoulder region Primary hypertension- Primary Unspecified essential hypertension 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) Mixed hyperlipidemia Type 2 diabetes mellitus with diabetic polyneuropathy, without long-term current use of insulin Routine general medical examination at health care facility- Primary Routine general medical examination at a health care facility Chronic kidney disease (CKD), stage IV (severe) (Multi) Chronic kidney disease, Stage IV (severe) Type 2 diabetes mellitus with stage 4 chronic kidney disease, with long-term current use of insulin (Multi) Edema of both legs Edema Primary hypertension Unspecified essential hypertension Nonrheumatic aortic valve stenosis- Primary Nonrheumatic aortic valve stenosis Coronary artery disease involving [place] coronary artery of [place] heart without angina pectoris Coronary artery disease status post coronary stent insertion Nonrheumatic aortic valve stenosis documented in this encounter [facility] Work Phone: Evaluation note* Diagnosis Chronic pain of both shoulders- Primary Hip pain, bilateral Pain in joint, pelvic region and thigh Chronic right shoulder pain- Primary Pain in joint, shoulder region Primary osteoarthritis of right shoulder Chronic right shoulder pain Pain in joint, shoulder region 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 Chronic right shoulder pain Pain in joint, shoulder region Primary hypertension- Primary Unspecified essential hypertension 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) Mixed hyperlipidemia Type 2 diabetes mellitus with diabetic polyneuropathy, without long-term current use of insulin Routine general medical examination at health care facility- Primary Routine general medical examination at a health care facility Chronic kidney disease (CKD), stage IV (severe) (Multi) Chronic kidney disease, Stage IV (severe) Type 2 diabetes mellitus with stage 4 chronic kidney disease, with long-term current use of insulin (Multi) Edema of both legs Edema Primary hypertension Unspecified essential hypertension 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)- Primary Mixed hyperlipidemia Primary hypertension Unspecified essential hypertension Type 2 diabetes mellitus with stage 4 chronic kidney disease, with long-term current use of insulin (Multi) Chronic kidney disease (CKD), stage IV (severe) (Multi) Chronic kidney disease, Stage IV (severe) documented in this encounter [facility] Work Phone: Evaluation note* Diagnosis Chronic pain of both shoulders- Primary Hip pain, bilateral Pain in joint, pelvic region and thigh Chronic right shoulder pain- Primary Pain in joint, shoulder region Primary osteoarthritis of right shoulder Chronic right shoulder pain Pain in joint, shoulder region 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 Chronic right shoulder pain Pain in joint, shoulder region Primary hypertension- Primary Unspecified essential hypertension 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) Mixed hyperlipidemia Type 2 diabetes mellitus with diabetic polyneuropathy, without long-term current use of insulin Routine general medical examination at health care facility- Primary Routine general medical examination at a health care facility Chronic kidney disease (CKD), stage IV (severe) (Multi) Chronic kidney disease, Stage IV (severe) Type 2 diabetes mellitus with stage 4 chronic kidney disease, with long-term current use of insulin (Multi) Edema of both legs Edema Primary hypertension Unspecified essential hypertension Nonrheumatic aortic valve stenosis- Primary Coronary artery disease involving [place] coronary artery of [place] heart without angina pectoris Coronary artery disease status post coronary stent insertion Edema of both legs Edema Primary hypertension Unspecified essential hypertension Non-rheumatic aortic stenosis Mixed hyperlipidemia Type 2 diabetes mellitus with stage 4 chronic kidney disease, with long-term current use of insulin (Multi) Hx of heart artery stent Atherosclerosis documented in this encounter [facility] Work Phone: Evaluation note* Diagnosis Chronic pain of both shoulders- Primary Hip pain, bilateral Pain in joint, pelvic region and thigh Chronic right shoulder pain- Primary Pain in joint, shoulder region Primary osteoarthritis of right shoulder Chronic right shoulder pain Pain in joint, shoulder region 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 Chronic right shoulder pain Pain in joint, shoulder region Primary hypertension- Primary Unspecified essential hypertension 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) Mixed hyperlipidemia Type 2 diabetes mellitus with diabetic polyneuropathy, without long-term current use of insulin Routine general medical examination at health care facility- Primary Routine general medical examination at a health care facility Chronic kidney disease (CKD), stage IV (severe) (Multi) Chronic kidney disease, Stage IV (severe) Type 2 diabetes mellitus with stage 4 chronic kidney disease, with long-term current use of insulin (Multi) Edema of both legs Edema Primary hypertension Unspecified essential hypertension Enlarged prostate with urinary obstruction- Primary Hypertrophy of prostate with urinary obstruction and other lower urinary tract symptoms (LUTS) Benign prostatic hyperplasia with urinary retention- Primary H/O heart artery stent Enlarged prostate with urinary obstruction Hypertrophy of prostate with urinary obstruction and other lower urinary tract symptoms (LUTS) documented in this encounter [facility] Work Phone: Evaluation note* Diagnosis Chronic pain of both shoulders- Primary Hip pain, bilateral Pain in joint, pelvic region and thigh Chronic right shoulder pain- Primary Pain in joint, shoulder region Primary osteoarthritis of right shoulder Chronic right shoulder pain Pain in joint, shoulder region 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 Chronic right shoulder pain Pain in joint, shoulder region Primary hypertension- Primary Unspecified essential hypertension 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) Mixed hyperlipidemia Type 2 diabetes mellitus with diabetic polyneuropathy, without long-term current use of insulin Routine general medical examination at health care facility- Primary Routine general medical examination at a health care facility Chronic kidney disease (CKD), stage IV (severe) (Multi) Chronic kidney disease, Stage IV (severe) Type 2 diabetes mellitus with stage 4 chronic kidney disease, with long-term current use of insulin (Multi) Edema of both legs Edema Primary hypertension Unspecified essential hypertension Enlarged prostate with urinary obstruction- Primary Hypertrophy of prostate with urinary obstruction and other lower urinary tract symptoms (LUTS) Acute cystitis with hematuria- Primary Urinary retention Unspecified retention of urine Enlarged prostate with urinary obstruction Hypertrophy of prostate with urinary obstruction and other lower urinary tract symptoms (LUTS) documented in this encounter [facility] Work Phone: Evaluation note* Diagnosis Chronic right shoulder pain- Primary Pain in joint, shoulder region Primary osteoarthritis of right shoulder Chronic right shoulder pain Pain in joint, shoulder region 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 Chronic right shoulder pain Pain in joint, shoulder region Primary hypertension- Primary Unspecified essential hypertension 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) Mixed hyperlipidemia Type 2 diabetes mellitus with diabetic polyneuropathy, without long-term current use of insulin Routine general medical examination at health care facility- Primary Routine general medical examination at a health care facility Chronic kidney disease (CKD), stage IV (severe) (Multi) Chronic kidney disease, Stage IV (severe) Type 2 diabetes mellitus with stage 4 chronic kidney disease, with long-term current use of insulin (Multi) Edema of both legs Edema Primary hypertension Unspecified essential hypertension Enlarged prostate with urinary obstruction- Primary Hypertrophy of prostate with urinary obstruction and other lower urinary tract symptoms (LUTS) Bradycardia- Primary Other specified cardiac dysrhythmias Symptomatic bradycardia Bradycardia Other specified cardiac dysrhythmias Type 2 diabetes mellitus with diabetic polyneuropathy, without long-term current use of insulin Primary hypertension Unspecified essential hypertension Acute cystitis without hematuria Enlarged prostate with urinary obstruction Hypertrophy of prostate with urinary obstruction and other lower urinary tract symptoms (LUTS) documented in this encounter [facility] Work Phone: Evaluation note* Diagnosis Chronic right shoulder pain- Primary Pain in joint, shoulder region Primary osteoarthritis of right shoulder Chronic right shoulder pain Pain in joint, shoulder region 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 Chronic right shoulder pain Pain in joint, shoulder region Primary hypertension- Primary Unspecified essential hypertension 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) Mixed hyperlipidemia Type 2 diabetes mellitus with diabetic polyneuropathy, without long-term current use of insulin Routine general medical examination at health care facility- Primary Routine general medical examination at a health care facility Chronic kidney disease (CKD), stage IV (severe) (Multi) Chronic kidney disease, Stage IV (severe) Type 2 diabetes mellitus with stage 4 chronic kidney disease, with long-term current use of insulin (Multi) Edema of both legs Edema Primary hypertension Unspecified essential hypertension Enlarged prostate with urinary obstruction- Primary Hypertrophy of prostate with urinary obstruction and other lower urinary tract symptoms (LUTS) Bradycardia- Primary Other specified cardiac dysrhythmias Primary hypertension Unspecified essential hypertension Type 2 diabetes mellitus with stage 4 chronic kidney disease, with long-term current use of insulin (Multi) Chronic kidney disease (CKD), stage IV (severe) (Multi) Chronic kidney disease, Stage IV (severe) Enlarged prostate with urinary obstruction Hypertrophy of prostate with urinary obstruction and other lower urinary tract symptoms (LUTS) documented in this encounter [facility] Work Phone: Evaluation note* Diagnosis Chronic right shoulder pain- Primary Pain in joint, shoulder region Primary osteoarthritis of right shoulder Chronic right shoulder pain Pain in joint, shoulder region 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 Chronic right shoulder pain Pain in joint, shoulder region Primary hypertension- Primary Unspecified essential hypertension 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) Mixed hyperlipidemia Type 2 diabetes mellitus with diabetic polyneuropathy, without long-term current use of insulin Routine general medical examination at health care facility- Primary Routine general medical examination at a health care facility Chronic kidney disease (CKD), stage IV (severe) (Multi) Chronic kidney disease, Stage IV (severe) Type 2 diabetes mellitus with stage 4 chronic kidney disease, with long-term current use of insulin (Multi) Edema of both legs Edema Primary hypertension Unspecified essential hypertension Enlarged prostate with urinary obstruction- Primary Hypertrophy of prostate with urinary obstruction and other lower urinary tract symptoms (LUTS) Dysuria- Primary Enlarged prostate with urinary obstruction Hypertrophy of prostate with urinary obstruction and other lower urinary tract symptoms (LUTS) documented in this encounter [facility] Work Phone: Evaluation note* Diagnosis Chronic right shoulder pain- Primary Pain in joint, shoulder region Primary osteoarthritis of right shoulder Chronic right shoulder pain Pain in joint, shoulder region 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 Chronic right shoulder pain Pain in joint, shoulder region Primary hypertension- Primary Unspecified essential hypertension 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) Mixed hyperlipidemia Type 2 diabetes mellitus with diabetic polyneuropathy, without long-term current use of insulin Routine general medical examination at [facility] facility- Primary Routine general medical examination at a [facility] Chronic kidney disease (CKD), stage IV (severe) (Multi) Chronic kidney disease, Stage IV (severe) Type 2 diabetes mellitus with stage 4 chronic kidney disease, with long-term current use of insulin (Multi) Edema of both legs Edema Primary hypertension Unspecified essential hypertension Enlarged prostate with urinary obstruction- Primary Hypertrophy of prostate with urinary obstruction and other lower urinary tract symptoms (LUTS) Benign prostatic hyperplasia with urinary retention- Primary Urinary retention Unspecified retention of urine Enlarged prostate with urinary obstruction Hypertrophy of prostate with urinary obstruction and other lower urinary tract symptoms (LUTS) documented in this encounter [facility] Work Phone: Evaluation note* Diagnosis Chronic right shoulder pain- Primary Pain in joint, shoulder region Primary osteoarthritis of right shoulder Chronic right shoulder pain Pain in joint, shoulder region 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 Chronic right shoulder pain Pain in joint, shoulder region Primary hypertension- Primary Unspecified essential hypertension 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) Mixed hyperlipidemia Type 2 diabetes mellitus with diabetic polyneuropathy, without long-term current use of insulin Routine general medical examination at [facility] facility- Primary Routine general medical examination at a health care [facility] Chronic kidney disease (CKD), stage IV (severe) (Multi) Chronic kidney disease, Stage IV (severe) Type 2 diabetes mellitus with stage 4 chronic kidney disease, with long-term current use of insulin (Multi) Edema of both legs Edema Primary hypertension Unspecified essential hypertension Enlarged prostate with urinary obstruction- Primary Hypertrophy of prostate with urinary obstruction and other lower urinary tract symptoms (LUTS) Enlarged prostate with urinary obstruction Hypertrophy of prostate with urinary obstruction and other lower urinary tract symptoms (LUTS) documented in this encounter [facility] Work Phone: Evaluation note* Diagnosis Chronic right shoulder pain- Primary Pain in joint, shoulder region Primary osteoarthritis of right shoulder Chronic right shoulder pain Pain in joint, shoulder region 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 Chronic right shoulder pain Pain in joint, shoulder region Primary hypertension- Primary Unspecified essential hypertension 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) Mixed hyperlipidemia Type 2 diabetes mellitus with diabetic polyneuropathy, without long-term current use of insulin Routine general medical examination at health care facility- Primary Routine general medical examination at a [facility] care [facility] Chronic kidney disease (CKD), stage IV (severe) (Multi) Chronic kidney disease, Stage IV (severe) Type 2 diabetes mellitus with stage 4 chronic kidney disease, with long-term current use of insulin (Multi) Edema of both legs Edema Primary hypertension Unspecified essential hypertension Benign prostatic hyperplasia with urinary retention- Primary Lower urinary tract symptoms (LUTS) documented in this encounter [facility] Work Phone: Evaluation note* Diagnosis Chronic right shoulder pain- Primary Pain in joint, shoulder region Primary osteoarthritis of right shoulder Chronic right shoulder pain Pain in joint, shoulder region 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 Chronic right shoulder pain Pain in joint, shoulder region Primary hypertension- Primary Unspecified essential hypertension 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) Mixed hyperlipidemia Type 2 diabetes mellitus with diabetic polyneuropathy, without long-term current use of insulin Routine general medical examination at health care facility- Primary Routine general medical examination at a health care facility Chronic kidney disease (CKD), stage IV (severe) (Multi) Chronic kidney disease, Stage IV (severe) Type 2 diabetes mellitus with stage 4 chronic kidney disease, with long-term current use of insulin (Multi) Edema of both legs Edema Primary hypertension Unspecified essential hypertension Nonrheumatic aortic valve stenosis- Primary Coronary artery disease involving [place] coronary artery of [place] heart without angina pectoris Coronary artery disease status post coronary stent insertion Edema of both legs Edema Primary hypertension Unspecified essential hypertension Non-rheumatic aortic stenosis Mixed hyperlipidemia Type 2 diabetes mellitus with stage 4 chronic kidney disease, with long-term current use of insulin (Multi) Hx of heart artery stent Atherosclerosis Obesity, unspecified class, unspecified obesity type, unspecified whether serious comorbidity present documented in this encounter [facility] Work Phone: Evaluation note* Diagnosis Chronic right shoulder pain- Primary Pain in joint, shoulder region Primary osteoarthritis of right shoulder Chronic right shoulder pain Pain in joint, shoulder region 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 Chronic right shoulder pain Pain in joint, shoulder region Primary hypertension- Primary Unspecified essential hypertension 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) Mixed hyperlipidemia Type 2 diabetes mellitus with diabetic polyneuropathy, without long-term current use of insulin Routine general medical examination at health care facility- Primary Routine general medical examination at a health care facility Chronic kidney disease (CKD), stage IV (severe) (Multi) Chronic kidney disease, Stage IV (severe) Type 2 diabetes mellitus with stage 4 chronic kidney disease, with long-term current use of insulin (Multi) Edema of both legs Edema Primary hypertension Unspecified essential hypertension Nonrheumatic aortic (valve) stenosis documented in this encounter [facility] Work Phone: Evaluation note* Diagnosis Chronic right shoulder pain- Primary Pain in joint, shoulder region Primary osteoarthritis of right shoulder Chronic right shoulder pain Pain in joint, shoulder region 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 Chronic right shoulder pain Pain in joint, shoulder region Primary hypertension- Primary Unspecified essential hypertension 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) Mixed hyperlipidemia Type 2 diabetes mellitus with diabetic polyneuropathy, without long-term current use of insulin (Multi) Routine general medical examination at health care facility- Primary Routine general medical examination at a health care facility Chronic kidney disease (CKD), stage IV (severe) (Multi) Chronic kidney disease, Stage IV (severe) Type 2 diabetes mellitus with stage 4 chronic kidney disease, with long-term current use of insulin (Multi) Edema of both legs Edema Primary hypertension Unspecified essential hypertension Nonrheumatic aortic (valve) stenosis- Primary documented in this encounter [facility] Work Phone: Evaluation note* Diagnosis Chronic right shoulder pain- Primary Pain in joint, shoulder region Primary osteoarthritis of right shoulder Chronic right shoulder pain Pain in joint, shoulder region 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 Chronic right shoulder pain Pain in joint, shoulder region Primary hypertension- Primary Unspecified essential hypertension 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) Mixed hyperlipidemia Type 2 diabetes mellitus with diabetic polyneuropathy, without long-term current use of insulin (Multi) Routine general medical examination at health care facility- Primary Routine general medical examination at a health care facility Chronic kidney disease (CKD), stage IV (severe) (Multi) Chronic kidney disease, Stage IV (severe) Type 2 diabetes mellitus with stage 4 chronic kidney disease, with long-term current use of insulin (Multi) Edema of both legs Edema Primary hypertension Unspecified essential hypertension Severe aortic stenosis- Primary Aortic valve disorders Nonrheumatic aortic (valve) stenosis- Primary Nonrheumatic aortic (valve) stenosis documented in this encounter [facility] Work Phone: Evaluation note* Diagnosis Chronic right shoulder pain- Primary Pain in joint, shoulder region Primary osteoarthritis of right shoulder Chronic right shoulder pain Pain in joint, shoulder region 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 Chronic right shoulder pain Pain in joint, shoulder region Primary hypertension- Primary Unspecified essential hypertension 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) Mixed hyperlipidemia Type 2 diabetes mellitus with diabetic polyneuropathy, without long-term current use of insulin (Multi) Routine general medical examination at health care facility- Primary Routine general medical examination at a health care facility Chronic kidney disease (CKD), stage IV (severe) (Multi) Chronic kidney disease, Stage IV (severe) Type 2 diabetes mellitus with stage 4 chronic kidney disease, with long-term current use of insulin (Multi) Edema of both legs Edema Primary hypertension Unspecified essential hypertension Nonrheumatic aortic (valve) stenosis- Primary Nonrheumatic aortic (valve) stenosis S/P TAVR (transcatheter aortic valve replacement) Encounter for other specified special examinations 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, unspecified blood vessel laterality (Multi) Bradycardia Other specified cardiac dysrhythmias Acute urinary retention Idiopathic chronic gout without tophus, unspecified site Insomnia, unspecified type Type 2 diabetes mellitus with stage 4 chronic kidney disease, with long-term current use of insulin (Multi) Constipation, unspecified constipation type Acute hyperactive delirium due to another medical condition Mixed level of activity delirium due to multiple etiologies, persistent Benign prostatic hyperplasia with urinary retention Mixed level of activity delirium due to multiple etiologies, persistent Type 2 diabetes mellitus with chronic kidney disease, with long-term current use of insulin (Multi) BPH (benign prostatic hyperplasia) Unspecified hyperplasia of prostate without urinary obstruction and other lower urinary tract symptoms (LUTS) Hypertension Unspecified essential hypertension Urinary retention Unspecified retention of urine Chronic kidney disease (CKD), stage IV (severe) (Multi) Chronic kidney disease, Stage IV (severe) 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 No hypoglycemia. Counseled on diet with low carbohydrate intake, weight loss and increased activity levels/exercise. * Hypertension - Takes medication without side effects. No CP/SOB/Palpitations. Follows a no added salt diet. Counseled diet, activity and weight loss. * Gout - Takes and tolerates medications. * GERD - Takes PPI daily with no breakthrough symptoms. Reviewed dietary, caffeine, tobacco, alcohol,and NSAID avoidance. * wt down 12 pounds, but numbers did not change much. * inc glipizide 5 mg TWICE daily. * BPH - gets up a lot at night, not new or worse. rec (retry?) flomax. he will think about it. [facility] Work Phone: History of Present illness Narrative* The patient is being seen for the subsequent annual wellness visit. * Past Medical, Surgical and Family History: reviewed and updated in chart. * Interval History: Patient has not been hospitalized previously. * Medications and Supplements: Review of all medications by a prescribing practitioner or clinical pharmacist (such as prescriptions, OTCs, herbal therapies and supplements) documented in the medical record. * No, the patient is not using opioids. * Patient Self Assessment of Health Status: good. * Tobacco use: Non-User * Alcohol use: User * Illicit drug use: Non-User * Current diet: Diabetic Diet, does consume adequate fluids and does consume caffeine. * Exercise Frequency: infrequently. * Depression/Suicide Screening: . * During the past 2 weeks, the patient has not felt down, depressed or hopeless. * During the past 2 weeks, the patient has not felt little interest or pleasure in doing things. * Hearing Impairment: Patient has slight hearing impairment, bilaterally. * Cognitive Impairment: No cognitive impairment observed. * Bathing: performs independently. * Dressing: performs independently. * Walking: performs independently. * Managing Finances: performs independently. * Shopping: performs independently. * Managing Medications: performs independently. * Housework / Basic Home Maintenance: performs independently. * Falls Risk Screening:. KITTY has not fallen in the last 6 months. * Home safety risk factors: none. * Advance directives:. Advance Care Planning discussed and documented in the medical record, patient did not wish or was not able to name a surrogate decision maker or provide an advance care plan. Patient has living will. Patient has healthcare POA. * Diabetes Type II - Takes and tolerates medications. No hypoglycemia. Counseled on diet with low carbohydrate intake, weight loss and increased activity levels/exercise. * Hypertension - Takes medication without side effects. No CP/SOB/Palpitations. Follows a no added salt diet. Counseled diet, activity and weight loss. * Hyperlipidemia - Takes and tolerates medications without fatigue and myalgias. * Carotid stenosis - stable. * covid shot x 3. * Bottom line with his diabetes, his he is still eating poorly and eating too much. He knows this is the answer to the problem and is trying to work on it. [facility] Work Phone: History of Present illness Narrative* Edema both legs is worse. No shortness of breath. * [facility] screening showed mild carotid stenosis of bilateral, left leg abnormal PAD screen. * He does have some claudication-like pain, but it is in both his hips. * Knee function is up weight is actually down, triglycerides are up he eats a lot of ice cream, A1c is way up to almost 9 * Discussed that he needs some significant lifestyle interventions. He needs to get up and move is much as he can, even if it is limited 5 or 10 minutes a couple of times every day. * Needs to cut down overall on what he is eating, needs to cut back on the carbohydrates. Specifically he needs to stop ice cream for the short-term. * Diet changes * Stop amlodipine for now, see if it helps with the swelling. Try to hold off on Lasix. * Elevate legs * ? PAD ultrasound. * Office visit 1 month [facility] Work Phone: History of Present illness Narrative* leg edema better off amlodipine, no leslie/pain, but still with some edema. * BP is ok. * Pain when he walks with both hips and legs. Check PVR/TALAT test. * Swelling is better off of the amlodipine and blood pressure is okay Ankit. We will stop the amlodipine for now. * Elevating the legs. * Is walking more and that is helping a little bit with exercise tolerance. * Family eating better no ice cream eating less carbohydrates weight is down 8 pounds * Lasix daily in the morning. Need to watch his creatinine, so BMP in 2 weeks. [employer] Work Phone: History of Present illness Narrative* neuropathy - longstanding hereditary polyneuropathy. Was with previous pain doc that retired or moved and stopped his tramadol. When he went to see Dr. Estrada he tried to switch the type of tramadol that he was taking but he did not tolerate it well and he did not want to take it and stopped. He also started him on pregabalin 100 mg at bedtime. That caused significant mental status changes. * Pain only really bothers him at bedtime. * Cording to Omar he has never tried gabapentin or pregabalin before for the neuropathy. * Is to stay away from the tramadol because he thought he was addicted to it. And I told him that rules out the other strong pain medicines from me would not want to talk to his new pain management doctor. * He had significant side effects from the pregabalin 100 mg, will try gabapentin 100 mg 1 or 2 pillsat bedtime. * Call with an update in 1 week. * OARRS report run, got an exception error. Not an obvious reason why. Will not auto populate in EMR. [facility] Work Phone: History of Present illness Narrative* Diabetes Type II - Takes and tolerates medications. No hypoglycemia. Counseled on diet with low carbohydrate intake, weight loss and increased activity levels/exercise. * Hypertension - Takes medication without side effects. No CP/SOB/Palpitations. Follows a no added salt diet. Counseled diet, activity and weight loss. * Seeing a nerve doc up in [place] Dr. Villanueva. Thinks it is diabetic neuropathy. Kept him on the gabapentin 200 mg in the afternoon and 200 mg in the evening. How long I will follow, can take over the prescription in the future. * A1c is down to 7.7 with much better diet. No changes in medications. * Recheck lab and office visit in 3 [facility] Work Phone: History of Present illness Narrative* The patient is being seen for the subsequent annual wellness visit. * Past Medical, Surgical and Family History: reviewed and updated in chart. * Interval History: Patient has not been hospitalized previously. * Medications and Supplements: Review of all medications by a prescribing practitioner or clinical pharmacist (such as prescriptions, OTCs, herbal therapies and supplements) documented in the medical record. * No, the patient is not using opioids. * Patient Self Assessment of Health Status: good. * Tobacco use: Non-User * Alcohol use: User * Illicit drug use: Non-User * Current diet: Diabetic Diet, does consume adequate fluids and does consume caffeine. * Exercise Frequency: infrequently. * Depression/Suicide Screening: . * During the past 2 weeks, the patient has not felt down, depressed or hopeless. * During the past 2 weeks, the patient has not felt little interest or pleasure in doing things. * Hearing Impairment: Patient has significant hearing impairment, bilaterally, He uses a hearing aid. * Cognitive Impairment: No cognitive impairment observed. * Bathing: performs independently. * Dressing: performs independently. * Walking: performs independently. * Managing Finances: performs independently. * Shopping: performs independently. * Managing Medications: performs independently. * Housework / Basic Home Maintenance: performs independently. * Falls Risk Screening:. KITTY has not fallen in the last 6 months. * Home safety risk factors: none. * Advance directives:. Advance Care Planning discussed and documented in the medical record, patient did not wish or was not able to name a surrogate decision maker or provide an advance care plan. Patient has living will. Patient has healthcare POA. * It does seem like he is drinking adequate amounts of fluid, but his creatinine level did go up to 2this time. * Good news is his weight is down A1c is down with eating better. * He does occasionally take ibuprofen couple of times a week to help with his aches and pains. He gets no relief from Tylenol and is really afraid because of getting off tramadol was difficult to take any stronger pain medicines. Discussed because of his kidneys he cannot take the ibuprofen every dayhere there would be okay but minimizing her 0 is the best approach. * Recheck labs in 3 months because of the kidneys * Hypertension - Takes medication without side effects. No CP/SOB/Palpitations. Follows a no added salt diet. Counseled diet, activity and weight loss. * Occlusion of the carotid stable. * OV and lab in 3 months [facility] Work Phone: History of Present illness NarrativeMrHaritha Vergara is an 82-year-old male seen in postoperative follow-up from excision of a soft tissue mass on his scalp. Surgical pathology is still pending, but this had the appearance of a epidermoid cyst. He is doing well without any fever, redness or drainage from the incision. His has been using baby shampoo to wash his hair and there sink.-[facility] Work Phone: Hospital Discharge instructions* Attachments The following attachments cannot be sent through Care Everywhere. * De Oliveira Catheter (Israeli) [facility]charge [facility]* Attachments The following attachments cannot be sent through Care Everywhere. * Preventing Falls ED (Israeli) * Bradycardia (Israeli) * How to Care for Your De Oliveira Catheter (Israeli) [facility] Work [facility]: Hospital Discharge instructions* Attachments The following attachments cannot be sent through Care Everywhere. * Urinary Tract Infection Discharge Instructions, Adult (Israeli) [facility]: Reason for referral (narrative)* Diagnostic Procedure Only (Routine) - Closed Specialty Diagnoses / Procedures Referred By Contac t Referred To Contact XR IMAGING Diagnoses DDD (degenerative disc disease), cervical Procedures XR CERV OTHER 4V AP/LAT/OBL RADEX SPINE CERVICAL 4 OR 5 VIEWS Mary Junior APRN.CNP [address] [place] [address] Xr Imaging Referral ID Status Reason Start Date Expiration Date V isits Requested Visits Authorized [id number] Closed Auto-Generate d Referral 12/04/2022 01/03/2024 1 1 * Diagnostic Procedure Only (Routine) - Closed Specialty Diagnoses / Procedures Referred By Contac t Referred To Contact XR IMAGING Diagnoses Bilateral shoulder pain, unspecified chronicity Procedures XR SHOULDER GENERAL 3V OR MORE AP/TRUE AP/OTHER RIGHT RADEX SHOULDER COMPLETE MINIMUM 2 VIEWS Mary Junior APRN.MINE ENGINEERING SUPERVISOR [address] [id number] Xr Imaging Referral ID Status Reason Start Date Expiration Date V isits Requested Visits Authorized [id number] Closed Auto-Generate d Referral 12/04/2022 01/03/2024 1 1 * Diagnostic Procedure Only (Routine) - Closed Specialty Diagnoses / Procedures Referred By Contac t Referred To Contact XR IMAGING Diagnoses Bilateral shoulder pain, unspecified chronicity Procedures XR SHOULDER GENERAL 3V OR MORE AP/TRUE AP/OTHER LEFT RADEX SHOULDER COMPLETE MINIMUM 2 VIEWS Mary Junior APRN.MINE ENGINEERING SUPERVISOR [address] [place] [address] Xr Imaging Referral ID Status Reason Start Date Expiration Date V isits Requested Visits Authorized [id number] Closed Auto-Generate d Referral 12/04/2022 01/03/2024 1 1 [facility] for referral (narrative)* Consultation (Routine) - Authorized Specialty Diagnoses / Procedures Referred By Deb vázquez Referred To Contact Orthopaedic Surgery Diagnoses Chronic right shoulder pain Daniel Almanzar MD [address] [place], [place] [id number] Kapil Louise MD [address] [place] [address] Referral ID Status Reason Start Date Expiration Date Visits Requested Visits Authorized [id number] Authorized Specialty Services Required 02/22/2023 08/21/2023 1 1 [facility] Work Phone: Rezifv for referral (narrative)* Consultation (Routine) - Authorized Specialty Diagnoses / Procedures Referred By Deb vázquez Referred To Contact Primary Care Procedures Follow Up In Primary Care - Established Daniel Almanzar MD [address] [place] [address] Referral ID Status Reason Start Date Expiration Date V isits Requested Visits Authorized [id number] Authorized 04/02/2023 09/29/2023 1 1 [facility] Work Phone: Repirk for referral (narrative)* Consultation (Routine) - Authorized Specialty Diagnoses / Procedures Referred By Deb vázquez Referred To Contact Primary Care Procedures Follow Up In Primary Care - Established Daniel Almanzar MD [address] [place] [address] Referral ID Status Reason Start Date Expiration Date V isits Requested Visits Authorized [id number] Authorized 05/02/2023 10/29/2023 1 1 [facility] Work Phone: Reygyo for referral (narrative)* Consultation (Routine) - Authorized Specialty Diagnoses / Procedures Referred By Dbe t Referred To Contact Primary Care Procedures Follow Up In Primary Care - Established Daniel Almanzar MD [address] [place] [address] Referral ID Status Reason Start Date Expiration Date V isits Requested Visits Authorized [id number] Authorized 05/16/2023 11/12/2023 1 1 [facility] Work Phone: reason for referral (narrative)* Consultation (Routine) - Authorized Specialty Diagnoses / Procedures Referred By Deb vázquez Referred To Contact Primary Care Procedures Follow Up In Primary Care - [facility] Daniel Almanzar MD [address] [place] [address] Referral ID Status Reason Start Date Expiration Date V isits Requested Visits Authorized [id number] Authorized 07/02/2023 12/29/2023 1 1 [facility] Work Phone: reason for referral (narrative)* Consultation (Routine) - Authorized Specialty Diagnoses / Procedures Referred By Deb t Referred To Contact Orthopaedic Surgery / Orthopedic Surgery Diagnoses Chronic pain of both shoulders Procedures Follow Up In Orthopaedic Surgery Kapil Orozco MD [address] [place] [address] Referral ID Status Reason Start Date Expiration Date V isits Requested Visits Authorized [id number] Authorized 07/21/2023 07/20/2024 1 1 * Imaging (Routine) - Authorized Specialty Diagnoses / Procedures Referred By Deb t Referred To Contact Radiology Diagnoses Hip pain, bilateral Procedures XR pelvis 1-2 views Kapil Orozco MD [address] [place] [address] Referral ID Status Reason Start Date Expiration Date Visits Requested Visits Authorized [id number] Authorized Perform Procedure 3 07/18/2024 1 1 * Imaging (Routine) - Authorized Specialty Diagnoses / Procedures Referred By Contac t Referred To Contact Radiology Diagnoses Hip pain, bilateral Procedures XR hips bilateral 2 VW w or wo pelvis Kapil Orozco MD [address] [place] [address] Referral ID Status Reason Start Date Expiration Date Visits Requested Visits Authorized [id number] Authorized Perform Procedure 3 07/18/2024 1 1 [facility] Work Phone: reason for referral (narrative)* Consultation (Routine) - Authorized Specialty Diagnoses / Procedures Referred By Contac t Referred To Contact Primary Care Procedures Follow Up In Primary Care - Established Daniel Almanzar MD [address] [place] [address] Referral ID Status Reason Start Date Expiration Date V isits Requested Visits Authorized [id number] Authorized 08/03/2023 08/02/2024 1 1 [facility] Work Phone: reason for referral (narrative)* Consultation (Routine) - Authorized Specialty Diagnoses / Procedures Referred By Contac t Referred To Contact Primary Care Procedures Follow Up In Primary Care - Established Daniel Almanzar MD [address] [place] [address] Referral ID Status Reason Start Date Expiration Date V isits Requested Visits Authorized [id number] Authorized 10/03/2023 10/02/2024 1 1 [facility] Work Phone: reason for referral (narrative)* Consultation (Routine) - Authorized Specialty Diagnoses / Procedures Referred By Contac t Referred To Contact Primary Care Procedures Follow Up In Primary Care - Established Daniel Almanzar MD [address] [id number] Referral ID Status Reason Start Date Expiration Date V isits Requested Visits Authorized [id number] Authorized 12/07/2023 12/06/2024 1 1 [facility] Work Phone: Recyvd for referral (narrative)* Consultation (Routine) - Authorized Specialty Diagnoses / Procedures Referred By Contac t Referred To Contact Primary Care Procedures Follow Up In Primary Care - [facility] Daniel Almanzar MD [address] [place] [address] Referral ID Status Reason Start Date Expiration Date V isits Requested Visits Authorized [id number] Authorized 02/06/2024 02/05/2025 1 1 [facility] Work Phone: Rerahp for referral (narrative)* Diagnostic Procedure Only (Routine) - Closed Specialty Diagnoses / Procedures Referred By Dieudonneac t Referred To Contact XR IMAGING Diagnoses DDD (degenerative disc disease), cervical Procedures XR CERV OTHER 4V AP/LAT/OBL RADEX SPINE CERVICAL 4 OR 5 VIEWS Mary Junior APRN.MINE ENGINEERING SUPERVISOR [address] [place] [address] [place] [id number] Referral ID Status Reason Start Date Expiration Date V isits Requested Visits Authorized [id number] Closed Auto-Generate d Referral 12/04/2022 01/03/2024 1 1 * Diagnostic Procedure Only (Routine) - Closed Specialty Diagnoses / [facility] To Contact XR IMAGING Diagnoses Bilateral shoulder pain, unspecified chronicity Procedures XR SHOULDER GENERAL 3V OR MORE AP/TRUE AP/OTHER RIGHT RADEX SHOULDER COMPLETE MINIMUM 2 VIEWS Mary Junior APRN.MINE ENGINEERING SUPERVISOR [address] [place] [address] [place] [address] Referral ID Status Reason Start Date Expiration Date V isits Requested Visits Authorized [id number] Closed Auto-Generate d Referral 12/04/2022 01/03/2024 1 1 * Diagnostic Procedure Only (Routine) - Closed Specialty Diagnoses / Procedures Referred By Contac t Referred To Contact XR IMAGING Diagnoses Bilateral shoulder pain, unspecified chronicity Procedures XR SHOULDER GENERAL 3V OR MORE AP/TRUE AP/OTHER LEFT RADEX SHOULDER COMPLETE MINIMUM 2 VIEWS Mary Junior APRN.MINE ENGINEERING SUPERVISOR [address] [place] [address] [place] [address] Referral ID Status Reason Start Date Expiration Date V isits Requested Visits Authorized [id number] Closed Auto-Generate d Referral 12/04/2022 01/03/[address] [facility] for referral (narrative)* Consultation (Routine) - Authorized Specialty Diagnoses / Procedures Referred By Contac t Referred To Contact Primary Care Procedures Follow Up In Primary Care - Established Daniel Almanzar MD [address] [place] [id number] Referral ID Status Reason Start Date Expiration Date V isits Requested Visits Authorized [id number] Authorized 05/08/2024 05/08/2025 1 1 [facility] Work Phone: Reason for referral (narrative)* Consultation (Routine) - Authorized Specialty Diagnoses / Procedures Referred By Contac t Referred To Contact Family Medicine / Primary Care Diagnoses Type 2 diabetes mellitus without complication, unspecified whether group home insulin use (Multi) Hypoglycemia Multiple [place] [address] [place] [address] [place] [address] Referral ID Status Reason Start Date Expiration Date Visits Requested Visits Authorized [id number] Authorized Specialty Services Required 05/29/2024 05/29/2025 1 1 [facility] Work Phone: reason for referral (narrative)* Consultation (Routine) - Authorized Specialty Diagnoses / Procedures Referred By Deb vázquez Referred To Contact Primary Care Procedures Follow Up In Primary Care - Established Daniel Almanzar MD [address] [place] [address] Referral ID Status Reason Start Date Expiration Date V isits Requested Visits Authorized [id number] Authorized 06/16/2024 06/16/2025 1 1 [facility] Work Phone: reason for referral (narrative)* Consultation (Routine) - Authorized Specialty Diagnoses / Procedures Referred By Deb vázquez Referred To Contact Primary Care Procedures Follow Up In Primary Care - Established Daniel Almanzar MD [address] [place] [address] Phone: tel: fax: Referral ID Status Reason Start Date Expiration Date V isits Requested Visits Authorized [id number] Authorized 10/31/2024 10/31/2025 1 1 [facility] Work Phone: reason for visit Narrative* Diagnostic Procedure Only (Routine) - Closed Specialty Diagnoses / Procedures Referred By Deb vázquez Referred To Contact XR IMAGING Diagnoses DDD (degenerative disc disease), cervical Procedures XR CERV OTHER 4V AP/LAT/OBL RADEX SPINE CERVICAL 4 OR 5 VIEWS Mary Junior, DIESEL SERVICE APPRENTICE.MINE ENGINEERING SUPERVISOR [address] [place] [address] Xr Imaging [id number] Referral ID Status Reason Start Date Expiration Date V isits Requested Visits Authorized [id number] Closed Auto-Generate d Referral 12/04/2022 01/03/[address] [facility] for visit Narrative* Imaging (Routine) - Authorized Specialty Diagnoses / Procedures Referred By Deb t Referred To Contact Radiology Diagnoses 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) Procedures US renal complete Srikanth Howell, DIESEL SERVICE APPRENTICE-MINE ENGINEERING SUPERVISOR, DNP [address] [place] [address] Phone: tel: fax: Referral ID Status Reason Start Date Expiration Date Visits Requested Visits Authorized [id number] Authorized Perform Procedure 4 09/11/2025 1 1 [facility] Work Phone: reason for visit Narrative* Consultation (Routine) - Authorized Specialty Diagnoses / Procedures Referred By Deb t Referred To Contact Urology Diagnoses Benign prostatic hyperplasia with urinary retention Caleb Lucia MD [address] [place] [address] Phone: tel: fax: Matilde Regan MD [facility] [address] [place] [address] Phone: tel: fax: Referral ID Status Reason Start Date Expiration Date Visits Requested Visits Authorized [id number] Authorized Specialty Services Required 10/29/2024 10/29/2025 1 1 [facility] Work Phone: Remcrm for visit Narrative* Auth/Cert Specialty Diagnoses / Procedures Referred By Deb t Referred To Contact Diagnoses Nonrheumatic aortic valve stenosis Procedures TX R & L HRT CATH W/NJX L VENTRICULOG IMG S&I TX R & L HRT CATH WINJX HRT ART& L VENTR IMG Left & Right Heart Cath w Angiography & LV Nima Putnam MD [address] [place] [address] Phone: tel: fax: [facility] [address] [place] [address] Phone: tel: fax: Referral ID Status Reason Start Date Expiration Date Visits Re quested Visits Authorized [id number] 1 1 [facility] Work Phone: Reason for visit Narrative* Auth/Cert Specialty Diagnoses / Procedures Referred By Deb vázquez Referred To Contact Diagnoses Enlarged prostate with urinary obstruction 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, N13.8] Procedures TX LASER ENUCLEATION PROSTATE W/MORCELLATION Endoscopic Anatomical Prostate Enucleation ~ HoLEP Matilde Regan MD [facility] 3rd floor of the [facility] [address] [place] [address] Phone: tel: fax: [facility] [place] [address] [place] [address] fax: Referral ID Status Reason Start Date Expiration Date Visits Re quested Visits Authorized [id number] 1 1 [facility] Work Phone: Reujlo for visit Narrative* Imaging (Routine) - Authorized Specialty Diagnoses / Procedures Referred By Deb vázquez Referred To Contact Radiology Diagnoses Nonrheumatic aortic (valve) stenosis Procedures CT TAVR no contrast [place] [address] [place] [address] Phone: tel: fax: [facility] [address] [place] [address] Phone: tel: fax: Referral ID Status Reason Start Date Expiration Date Visits Requested Visits Authorized [id number] Authorized Perform Procedure 04/29/2025 04/29/2026 1 1 [facility] Work Phone: reason for visit Narrative* Auth/Cert Specialty Diagnoses / Procedures Referred By Deb vázquez Referred To Contact Diagnoses Nonrheumatic aortic (valve) stenosis Nonrheumatic aortic (valve) stenosis [I35.0] Procedures TX REPLACE AORTIC VALVE PERQ FEMORAL ARTRY APPROACH TX REPLACE AORTIC VALVE PERQ FEMORAL ARTRY APPROACH TAVR (Transcatheter AV Replacement) TVP for TAVR [place] [address] [place] [address] Phone: tel: fax: [facility] [address] [address] [address] Phone: tel: fax: Referral ID Status Reason Start Date Expiration Date Visits Re quested Visits Authorized [id number] 1 1 [facility] Work Phone: Summary Purpose Family History No Family History Records FoundUnknown Family Member Name Dates Details Family history of acute myoc ardial infarction: Mother, Child(V17.3, Z82.49) Status:Active Family history of malignant neoplasm: Mother, Child(V16.9, Z80.9) Status:Active Family history of type 2 rebecca betes mellitus: Other(V18.0, Z83.3) Status:Active 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 Unknown Family Member Name Dates Details Family history of acute myoc ardial infarction: Mother, Child(V17.3, Z82.49) Status:Active Family history of malignant neoplasm: Mother, Child(V16.9, Z80.9) Status:Active Family history of type 2 rebecca betes mellitus: Other(V18.0, Z83.3) Status:Active 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 Unknown Family Member Name Dates Details Family history of acute myoc ardial infarction: Mother, Child(V17.3, Z82.49) Status:Active Family history of malignant neoplasm: Mother, Child(V16.9, Z80.9) Status:Active Family history of type 2 rebecca betes mellitus: Other(V18.0, Z83.3) Status:Active 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 Unknown Family Member Name Dates Details 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:Active 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 Family history of type 2 rebecca betes mellitus: Other(V18.0, Z83.3) Status:Active Family history of malignant neoplasm: Mother, Child(V16.9, Z80.9) Status:Active Family history of acute myoc ardial infarction: Mother, Child(V17.3, Z82.49) Status:Active Unknown Family Member Name Dates Details Family history of acute myoc ardial infarction: Mother, Child(V17.3, Z82.49) Status:Active Family history of malignant neoplasm: Mother, Child(V16.9, Z80.9) Status:Active Family history of type 2 rebecca betes mellitus: Other(V18.0, Z83.3) Status:Active 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 Unknown Family Member Name Dates Details Family history of acute myoc ardial infarction: Mother, Child(V17.3, Z82.49) Status:Active Family history of malignant neoplasm: Mother, Child(V16.9, Z80.9) Status:Active Family history of type 2 rebecca betes mellitus: Other(V18.0, Z83.3) Status:Active 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 Unknown Family Member Name Dates Details Family history of acute myoc ardial infarction: Mother, Child(V17.3, Z82.49) Status:Active Family history of malignant neoplasm: Mother, Child(V16.9, Z80.9) Status:Active Family history of type 2 rebecca betes mellitus: Other(V18.0, Z83.3) Status:Active 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 Unknown Family Member Name Dates Details Family history of acute myoc ardial infarction: Mother, Child(V17.3, Z82.49) Status:Active Family history of malignant neoplasm: Mother, Child(V16.9, Z80.9) Status:Active Family history of type 2 rebecca betes mellitus: Other(V18.0, Z83.3) Status:Active 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 Unknown Family Member Name Dates Details Family history of acute myoc ardial infarction: Mother, Child(V17.3, Z82.49) Status:Active Family history of malignant neoplasm: Mother, Child(V16.9, Z80.9) Status:Active Family history of type 2 rebecca betes mellitus: Other(V18.0, Z83.3) Status:Active 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 Unknown Family Member Name Dates Details Family history of acute myoc ardial infarction: Mother, Child(V17.3, Z82.49) Status:Active Family history of malignant neoplasm: Mother, Child(V16.9, Z80.9) Status:Active Family history of type 2 rebecca betes mellitus: Other(V18.0, Z83.3) Status:Active 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 Unknown Family Member Name Dates Details Family history of acute myoc ardial infarction: Mother, Child(V17.3, Z82.49) Status:Active Family history of malignant neoplasm: Mother, Child(V16.9, Z80.9) Status:Active Family history of type 2 rebecca betes mellitus: Other(V18.0, Z83.3) Status:Active 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 Unknown Family Member Name Dates Details 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:Active 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 Family history of type 2 rebecca betes mellitus: Other(V18.0, Z83.3) Status:Active Family history of malignant neoplasm: Mother, Child(V16.9, Z80.9) Status:Active Family history of acute myoc ardial infarction: Mother, Child(V17.3, Z82.49) Status:Active Unknown Family Member Name Dates Details Family history of acute myoc ardial infarction: Mother, Child(V17.3, Z82.49) Status:Active Family history of malignant neoplasm: Mother, Child(V16.9, Z80.9) Status:Active Family history of type 2 rebecca betes mellitus: Other(V18.0, Z83.3) Status:Active 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 Unknown Family Member Name Dates Details Family history of acute myoc ardial infarction: Mother, Child(V17.3, Z82.49) Status:Active Family history of malignant neoplasm: Mother, Child(V16.9, Z80.9) Status:Active Family history of type 2 rebecca betes mellitus: Other(V18.0, Z83.3) Status:Active 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 Unknown Family Member Name Dates Details Family history of acute myoc ardial infarction: Mother, Child(V17.3, Z82.49) Status:Active Family history of malignant neoplasm: Mother, Child(V16.9, Z80.9) Status:Active Family history of type 2 rebecca betes mellitus: Other(V18.0, Z83.3) Status:Active 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 Unknown Family Member Name Dates Details Family history of acute myoc ardial infarction: Mother, Child(V17.3, Z82.49) Status:Active Family history of malignant neoplasm: Mother, Child(V16.9, Z80.9) Status:Active Family history of type 2 rebecca betes mellitus: Other(V18.0, Z83.3) Status:Active 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 Unknown Family Member Name Dates Details Family history of acute myoc ardial infarction: Mother, Child(V17.3, Z82.49) Status:Active Family history of malignant neoplasm: Mother, Child(V16.9, Z80.9) Status:Active Family history of type 2 rebecca betes mellitus: Other(V18.0, Z83.3) Status:Active 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 Unknown Family Member Name Dates Details Family history of acute myoc ardial infarction: Mother, Child(V17.3, Z82.49) Status:Active Family history of malignant neoplasm: Mother, Child(V16.9, Z80.9) Status:Active Family history of type 2 rebecca betes mellitus: Other(V18.0, Z83.3) Status:Active 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 Unknown Family Member Name Dates Details Family history of acute myoc ardial infarction: Mother, Child(V17.3, Z82.49) Status:Active Family history of malignant neoplasm: Mother, Child(V16.9, Z80.9) Status:Active Family history of type 2 rebecca betes mellitus: Other(V18.0, Z83.3) Status:Active 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 Unknown Family Member Name Dates Details Family history of acute myoc ardial infarction: Mother, Child(V17.3, Z82.49) Status:Active Family history of malignant neoplasm: Mother, Child(V16.9, Z80.9) Status:Active Family history of type 2 rebecca betes mellitus: Other(V18.0, Z83.3) Status:Active 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 Unknown Family Member Name Dates Details Family history of acute myoc ardial infarction: Mother, Child(V17.3, Z82.49) Status:Active Family history of malignant neoplasm: Mother, Child(V16.9, Z80.9) Status:Active Family history of type 2 rebecca betes mellitus: Other(V18.0, Z83.3) Status:Active 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 Unknown Family Member Name Dates Details Family history of acute myoc ardial infarction: Mother, Child(V17.3, Z82.49) Status:Active Family history of malignant neoplasm: Mother, Child(V16.9, Z80.9) Status:Active Family history of type 2 rebecca betes mellitus: Other(V18.0, Z83.3) Status:Active 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 Unknown Family Member Name Dates Details Family history of acute myoc ardial infarction: Mother, Child(V17.3, Z82.49) Status:Active Family history of malignant neoplasm: Mother, Child(V16.9, Z80.9) Status:Active Family history of type 2 rebecca betes mellitus: Other(V18.0, Z83.3) Status:Active 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 Unknown Family Member Name Dates Details Family history of acute myoc ardial infarction: Mother, Child(V17.3, Z82.49) Status:Active Family history of malignant neoplasm: Mother, Child(V16.9, Z80.9) Status:Active Family history of type 2 rebecca betes mellitus: Other(V18.0, Z83.3) Status:Active 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 Unknown Family Member Name Dates Details Family history of acute myoc ardial infarction: Mother, Child(V17.3, Z82.49) Status:Active Family history of malignant neoplasm: Mother, Child(V16.9, Z80.9) Status:Active Family history of type 2 rebecca betes mellitus: Other(V18.0, Z83.3) Status:Active 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 Unknown Family Member Name Dates Details Family history of acute myoc ardial infarction: Mother, Child(V17.3, Z82.49) Status:Active Family history of malignant neoplasm: Mother, Child(V16.9, Z80.9) Status:Active Family history of type 2 rebecca betes mellitus: Other(V18.0, Z83.3) Status:Active 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 Unknown Family Member Name Dates Details Family history of acute myoc ardial infarction: Mother, Child(V17.3, Z82.49) Status:Active Family history of malignant neoplasm: Mother, Child(V16.9, Z80.9) Status:Active Family history of type 2 rebecca betes mellitus: Other(V18.0, Z83.3) Status:Active 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 Unknown Family Member Name Dates Details Family history of acute myoc ardial infarction: Mother, Child(V17.3, Z82.49) Status:Active Family history of malignant neoplasm: Mother, Child(V16.9, Z80.9) Status:Active Family history of type 2 rebecca betes mellitus: Other(V18.0, Z83.3) Status:Active 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 Unknown Family Member Name Dates Details Family history of acute myoc ardial infarction: Mother, Child(V17.3, Z82.49) Status:Active Family history of malignant neoplasm: Mother, Child(V16.9, Z80.9) Status:Active Family history of type 2 rebecca betes mellitus: Other(V18.0, Z83.3) Status:Active 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 Advance Directives No Advanced Directives Records FoundDocuments on File Type Date Recorded 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 Living Will 12/07/2023 [facility] L iving Will Declaration Documents on File Type Date Recorded 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 Living Will 12/07/2023 [facility] L iving Will Declaration Date Activated Date Inactivated Comments 10/19/2024 1:32 AM Question Answer Comments Plan of Care: Code Status Discussion Completed Decision Maker: Patient Date Activated Date Inactivated Comments 10/18/2024 9:28 PM 10/19/2024 1:32 AM Question Answer Comments Plan of Care: Code Status Discussion Not Compl eted Decision Maker: Provider Rationale: Patient condition does not warra nt discussion Date Activated Date Inactivated Comments 10/18/2024 9:28 PM 10/18/2024 9:28 PM Question Answer Comments Plan of Care: Code Status Discussion Not Compl eted Decision Maker: Provider Rationale: Patient condition does not warra nt discussion Date Activated Date Inactivated Comments 10/28/2024 10:14 AM Date Activated Date Inactivated Comments 10/19/2024 1:32 AM 10/28/2024 10:14 AM Question Answer Comments Plan of Care: Code Status Discussion Completed Decision Maker: Patient Date Activated Date Inactivated Comments 10/18/2024 9:28 PM 10/19/2024 1:32 AM Date Activated Date Inactivated Comments 10/18/2024 9:28 PM 10/18/2024 9:28 PM Question Answer Comments Plan of Care: Code Status Discussion Not Compl eted Decision Maker: Provider Rationale: Patient condition does not warra nt discussion Date Activated Date Inactivated Comments 10/28/2024 10:14 AM Question Answer Comments Plan of Care: Code Status Discussion Completed Decision Maker: Patient Date Activated Date Inactivated Comments 10/19/2024 1:32 AM 10/28/2024 10:14 AM Question Answer Comments Plan of Care: Code Status Discussion Completed Decision Maker: Patient Date Activated Date Inactivated Comments 10/18/2024 9:28 PM 10/19/2024 1:32 AM Question Answer Comments Plan of Care: Code Status Discussion Not Compl eted Decision Maker: Provider Rationale: Patient condition does not warra nt discussion Date Activated Date Inactivated Comments 10/18/2024 9:28 PM 10/18/2024 9:28 PM Question Answer Comments Plan of Care: Code Status Discussion Not Compl eted Decision Maker: Provider Rationale: Patient condition does not warra nt discussion Documents on File Type Date Recorded 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 [facility] Healthcare Power of Atty 11/24/2024 12:00 AM [facility] Healthcare 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 Living Will 11/24/2024 12:00 AM [facility] Will Documents on File Type Date Recorded 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 [facility] Healthcare Power of Atty 11/24/2024 12:00 AM [facility] Healthcare 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 Living Will 11/24/2024 12:00 AM [facility] Will Date Activated Date Inactivated Comments 07/13/2025 1:54 PM Date Activated Date Inactivated Comments 10/28/2024 10:14 AM 07/13/2025 1:54 PM Date Activated Date Inactivated Comments 10/19/2024 1:32 AM 10/28/2024 10:14 AM Question Answer Comments Plan of Care: Code Status Discussion Completed Decision Maker: Patient Date Activated Date Inactivated Comments 10/18/2024 9:28 PM 10/19/2024 1:32 AM Date Activated Date Inactivated Comments 10/18/2024 9:28 PM 10/18/2024 9:28 PM Question Answer Comments Plan of Care: Code Status Discussion Not Compl eted Decision Maker: Provider Rationale: Patient condition does not warra nt discussion Chief Complaint 6MO FU REV LABS(CINTHYA)6MO FU REV LABS(CINTHYA)6MO FU REV LABS-(DONE)-- LOOK AT CYST ON [id number] FU REV LABS(DONE)- NOT TAKING THE LASIX OF TWO DAYS AGO OR SO-- DIDNT LIKE HOW HE WOULD GET LIGHT HEADED/DIZZYQUESTIONS- PT HAS BEEN TAKING TRAMADOL FOR NEUROPATHY- PT HAS NOT HAD TRAMADOL FOR 15 DAYS.. 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 * ONSET: 3 Months Ago * DOI / DOS:3 Months Ago * IMPROVED: YES * PAIN: 0/10 * PAIN MEDS TAKEN: * ICE / HEAT APPLIED: NO * BRACE WORN: No * LAST INJECTION: 03/22/23 * ACCOMPANIED BY: ADRIEL * PATIENT PRESENTS TO OFFICE FOR : F/U OF BI SHOULDER PAIN * PATIENT STATES RIGHT ;SHOULDER HAS NOT BEEN PAINFUL SINCE CORTISONE INJECTION. * ONSET: 3 Months Ago * DOI / DOS:3 Months Ago * IMPROVED: YES * PAIN: 0/10 * PAIN MEDS TAKEN: * ICE / HEAT APPLIED: NO * BRACE WORN: No * LAST INJECTION: 03/22/23 * ACCOMPANIED BY: ADRIEL * FUV MEREDITH SHOULDER PAIN * PAIN 5/10 * MEDS ibuprofen * LAST INJECTION 03/22/23 Reason for Referral Specialty Diagnoses / Procedures Referred By Contac t Referred To Contact Orthopaedic Surgery / Orthopedic Surgery Diagnoses Primary osteoarthritis of right shoulder Procedures L Inj/Asp: R glenohumeral Kapil Orozco MD [address] [place] [address] Referral ID Status Reason Start Date Expiration Date V isits Requested Visits Authorized [id number] Pending Review 08/28/2023 08/27/2024 1 1 Specialty Diagnoses / Procedures Referred By Contac t Referred To Contact Radiology Diagnoses Chronic right shoulder pain Procedures MR shoulder right wo IV contrast Kapil Orozco MD [address] [place] [id number] Referral ID Status Reason Start Date Expiration Date Visits Requested Visits Authorized [id number] Pending Review Perform Procedure 08/28/2023 08/27/2024 1 1 Specialty Diagnoses / Procedures Referred By Contac t Referred To Contact Radiology Diagnoses Chronic right shoulder pain Procedures XR shoulder right 2+ views Kapil Orozco MD [address] [place] [address] Referral ID Status Reason Start Date Expiration Date Visits Requested Visits Authorized [id number] Authorized Perform Procedure 08/27/2023 08/26/2024 1 1 Referral ID Status Reason Start Date Expiration Date Visits Requested Visits Authorized [id number] Authorized Perform Procedure 08/28/2023 11/25/2023 1 1 Specialty Diagnoses / Procedures Referred By Contac t Referred To Contact Radiology Diagnoses Primary osteoarthritis of right shoulder Procedures XR shoulder right 2+ views Kapil Orozco MD [address] [place] [address] Referral ID Status Reason Start Date Expiration Date Visits Requested Visits Authorized [id number] Authorized Perform Procedure 01/22/2024 01/21/2025 1 1 Specialty Diagnoses / Procedures Referred By Contac t Referred To Contact Radiology Diagnoses Primary osteoarthritis of right shoulder Procedures XR shoulder right 2+ views Kapil Orozco MD [address] [place] [address] [address] [place] [address] Referral ID Status Reason Start Date Expiration Date Visits Requested Visits Authorized [id number] Authorized Perform Procedure 06/04/2024 06/04/2025 1 1 Additional Source Comments (unrecognized sect ion and content) No Status Records FoundNo Status Records FoundNo Status Records FoundNo Status Records FoundNo Status Records FoundNo Status Records FoundNo Status Records FoundNo Status Records FoundNo Status Records FoundNo Status Records FoundNo Status Records FoundNo Status Records FoundNo Status Records FoundNo Status Records Found INFORMATION SOURCE (unrecogn ized section and content) DATE CREATED AUTHOR 06/22/2019 [facility] DATE CREATED AUTHOR AUTHOR'S ORGANIZ ATION 12/05/2022 [facility] DATE CREATED AUTHOR AUTHOR'S ORGANIZ ATION 05/10/2023 [facility] DATE CREATED AUTHOR AUTHOR'S ORGANIZ ATION 06/26/2023 [facility] DATE CREATED AUTHOR AUTHOR'S ORGANIZ ATION 03/25/2024 [facility] DATE CREATED AUTHOR AUTHOR'S ORGANIZ ATION 03/29/2025 [facility] DATE CREATED AUTHOR AUTHOR'S ORGANIZ ATION 06/02/2025 [place] DATE CREATED AUTHOR AUTHOR'S ORGANIZ ATION 06/26/2025 [facility] DATE CREATED AUTHOR AUTHOR'S ORGANIZ ATION 2025 [facility] DATE CREATED AUTHOR AUTHOR'S ORGANIZ ATION 07/12/2025 [facility] DATE CREATED AUTHOR AUTHOR'S ORGANIZ ATION 07/24/2025 [facility] DATE CREATED AUTHOR AUTHOR'S ORGANIZ ATION 07/31/2025 [facility] DATE CREATED AUTHOR AUTHOR'S ORGANIZ ATION 08/01/2025 [facility] DATE CREATED AUTHOR AUTHOR'S ORGANIZ ATION 08/06/2025 [facility] Source Comments (unrecognize d section and content) In the event this informatio n is protected by the Federal Confidentiality of Alcohol and Drug Abuse Patient Records regulations: The Federal rules restrict any use of the information to criminally investigate or prosecute any alcohol or drug abuse patient.[facility] the event this information is protected by the Federal Confidentiality of Alcohol and Drug Abuse Patient Records regulations: The Federal rules restrict any use of the information to criminally investigate or prosecute any alcohol or drug abuse patient.[facility] the event this information is protected by the Federal Confidentiality of Alcohol and Drug Abuse Patient Records regulations: The Federal rules restrict any use of the information to criminally investigate or prosecute any alcohol or drug abuse patient.[facility] the event this information is protected by the Federal Confidentiality of Alcohol and Drug Abuse Patient Records regulations: The Federal rules restrict any use of the information to criminally investigate or prosecute any alcohol or drug abuse patient.[facility] the event this information is protected by the Federal Confidentiality of Alcohol and Drug Abuse Patient Records regulations: The Federal rules restrict any use of the information to criminally investigate or prosecute any alcohol or drug abuse patient.[facility] the event this information is protected by the Federal Confidentiality of Alcohol and Drug Abuse Patient Records regulations: The Federal rules restrict any use of the information to criminally investigate or prosecute any alcohol or drug abuse patient.[facility] the event this information is protected by the Federal Confidentiality of Alcohol and Drug Abuse Patient Records regulations: The Federal rules restrict any use of the information to criminally investigate or prosecute any alcohol or drug abuse patient.[facility] the event this information is protected by the Federal Confidentiality of Alcohol and Drug Abuse Patient Records regulations: The Federal rules restrict any use of the information to criminally investigate or prosecute any alcohol or drug abuse patient.[facility] the event this information is protected by the Federal Confidentiality of Alcohol and Drug Abuse Patient Records regulations: The Federal rules restrict any use of the information to criminally investigate or prosecute any alcohol or drug abuse patient.[facility] the event this information is protected by the Federal Confidentiality of Alcohol and Drug Abuse Patient Records regulations: The Federal rules restrict any use of the information to criminally investigate or prosecute any alcohol or drug abuse patient.[facility] the event this information is protected by the Federal Confidentiality of Alcohol and Drug Abuse Patient Records regulations: The Federal rules restrict any use of the information to criminally investigate or prosecute any alcohol or drug abuse patient.[facility] Reason for Visit (unrecogniz ed section and content) Reason Comments Follow-up 3 month follow-up Specialty Diagnoses / Procedures Referred By Deb vázquez Referred To Contact Nephrology Diagnoses 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) Procedures Follow Up In Nephrology Adriana Howell DO [address] [place] [address] Phone: tel: fax: Referral ID Status Reason Start Date Expiration Date V isits Requested Visits Authorized [id number] Authorized 10/29/2024 10/29/2025 1 1 Reason Comments Medicare Annual Wellness Visit Subsequen t 2 week follow up pedal edema, H/A -- better Specialty Diagnoses / Procedures Referred By Contac t Referred To Contact Primary Care Procedures Follow Up In Primary Care - Established Daniel Almanzar MD [address] [place] [address] Phone: tel: fax: Referral ID Status Reason Start Date Expiration Date V isits Requested Visits Authorized [id number] Authorized 11/24/2024 11/24/2025 1 1 Reason Comments Follow-up 3 mo Specialty Diagnoses / Procedures Referred By Contac t Referred To Contact Primary Care Procedures Follow Up In Primary [place] [address] [place] [address] Referral ID Status Reason Start Date Expiration Date V isits Requested Visits Authorized [id number] Authorized 02/06/2024 02/05/2025 1 1 Reason Comments Follow-up REV LABS Referral ID Status Reason Start Date Expiration Date V isits Requested Visits Authorized [id number] Authorized 12/07/2023 12/06/2024 1 1 Reason Comments Follow-up Referral ID Status Reason Start Date Expiration Date V isits Requested Visits Authorized [id number] Authorized 11/05/2023 11/04/2024 1 1 Referral ID Status Reason Start Date Expiration Date V isits Requested Visits Authorized [id number] Authorized 06/18/2023 12/15/2023 1 1 Reason Comments 2 wk check rev labs Referral ID Status Reason Start Date Expiration Date V isits Requested Visits Authorized [id number] Authorized 05/02/2023 10/29/2023 1 1 Reason Comments Future Appointment Reason Comments Follow Up Reason Comments Neuropathy Pain (Shoulder Pain) Neck Pain Reason Comments Results Reason Comments Pain Refill Request Reason Comments Follow-up 3 wk Referral ID Status Reason Start Date Expiration Date V isits Requested Visits Authorized [id number] Authorized 04/17/2023 10/14/2023 1 1 Reason Comments Follow-up Patient accompanied by , Adriel. Pt had cortisone injections into his shoulders on . He states his shoulders are feeling better Follow-up Pain Referral ID Status Reason Start Date Expiration Date V isits Requested Visits Authorized [id number] Authorized 07/02/2023 12/29/2023 1 1 Reason Comments Pain Nvuki-19-1-23 Specialty Diagnoses / Procedures Referred By Contac t Referred To Contact Diagnoses Pain in right shoulder Other chronic pain Procedures CHG MRI ANY JT UPPER EXTREMITY W/O CONTRAST MATRL [facility] [address] [place] [address] Referral ID Status Reason Start Date Expiration Date Visits Re quested Visits Authorized [id number] 1 1 Reason Comments Pain FUV R SHOULDER MRIMR I 08-28-23PAIN RATE 0INJ 08-28-23 Referral ID Status Reason Start Date Expiration Date V isits Requested Visits Authorized [id number] Authorized 08/03/2023 08/02/2024 1 1 Reason Comments Pain Specialty Diagnoses / Procedures Referred By Contac t Referred To Contact Radiology Diagnoses Primary osteoarthritis of right shoulder Procedures XR shoulder right 2+ views Kapil Orozco MD [address] [place] [address] Referral ID Status Reason Start Date Expiration Date Visits Requested Visits Authorized [id number] Authorized Perform Procedure 01/22/2024 01/21/2025 1 1 Reason Comments RIGHT SHOULDER PAIN Reason Comments Follow Up Refill Request Reason Comments Pain X-ray- 06/05/24Last inj 01-22-24 Follow-up X-ray- 06/05/24Last inj 01-22-24 Reason Comments Fall Hypoglycemia Patient got dizzy an d fell after getting out of the shower this morning. Denies hitting his head. Patient has skin tears to bilateral elbows. Denies other injuries. BS was 51 on arrival per EMS. 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 Reason Comments Follow-up 3 MO FU Referral ID Status Reason Start Date Expiration Date V isits Requested Visits Authorized [id number] Authorized 06/16/2024 06/16/2025 1 1 Specialty Diagnoses / Procedures Referred By Contac t Referred To Contact Radiology Diagnoses Primary osteoarthritis of right shoulder Procedures XR shoulder right 2+ views Kapil Orozco MD [address] [facility] [address] [place] [id number] DO [address] [place] [address] Referral ID Status Reason Start Date Expiration Date Visits Requested Visits Authorized [id number] Authorized Perform Procedure 06/04/2024 06/04/2025 1 1 Reason Comments Pain X-ray- TodayLast inj 01-22-24 Reason Comments Follow-up 2 week check up hypo glycemia Specialty Diagnoses / Procedures Referred By Deb vázquez Referred To Contact Primary Care Procedures Follow Up In Primary Care - Established Daniel Almanzar MD [address] [place] [phone] Referral ID Status Reason Start Date Expiration Date V isits Requested Visits Authorized [id number] Authorized 06/02/2024 06/02/2025 1 1 Reason Comments Consult Referred by Dr. Carroll rodas Chronic Kidney Disease Stage 4 Specialty Diagnoses / Procedures Referred By Deb vázquez Referred To Contact Nephrology Diagnoses 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) Daniel Almanzar MD [address] [place] [address] Phone: tel: fax: Srikanth Howell, DIESEL SERVICE APPRENTICE-MINE ENGINEERING SUPERVISOR, DNP [address] [place] [phone] Phone: tel: fax: Referral ID Status Reason Start Date Expiration Date Visits Requested Visits Authorized [id number] Authorized Specialty Services Required 09/09/2025 1 1 Reason Comments Urinary Retention Pt reports he was se nt over by Dr Howell for urinary retention. Pt reports urinary frequency for a "long time". Denies dysuria. Pt reports he has no symptoms and doesn't understand why he's here. Reason Comments Follow-up 2 weekReview Labs & Renal US Reason Comments bladder mass Reason Comments CYSTOSCOPY Specialty Diagnoses / Procedures Referred By Deb vázquez Referred To Contact Urology Diagnoses Bladder disorder, unspecified Procedures TX CYSTOURETHROSCOPY [facility] [address] [facility] [address] [place] [address] Phone: tel: fax: Caleb Lucia MD [address] [place] [address] Phone: tel: fax: Referral ID Status Reason Start Date Expiration Date V isits Requested Visits Authorized [id number] Authorized 10/07/2024 10/07/2025 1 1 Reason Comments Fall Fall and weakness x 2 weeks. Specialty Diagnoses / Procedures Referred By Deb vázquez Referred To Contact Diagnoses Bradycardia Weakness Hypoxia Fall, initial encounter Hypotension, unspecified hypotension type Syncope, unspecified syncope type Anemia, unspecified type Procedures Kyung Bowser MD [address] [place] [address] Phone: tel: fax: [facility] [address] [place] [phone] Phone: tel: Referral ID Status Reason Start Date Expiration Date Visits Re quested Visits Authorized [id number] 1 1 Reason Comments Follow-up 1 month Referral ID Status Reason Start Date Expiration Date V isits Requested Visits Authorized [id number] Authorized 09/29/2024 09/29/2025 1 1 Reason Comments Hospital Follow-up Two recent admission s , weakness, fall Reason Comments Foot Swelling Swelling bilateral l ower extremities x 2 weeks. , Adriel, states he has complained of a bad BAINS as well onset today. States feels like a band around his head. Reason Comments New Patient Visit Edema bilateral legs , Aortic valve stenosis, HTN. Patient states that he has been experiencing shortness of breath for about 3 months Specialty Diagnoses / Procedures Referred By Deb vázquez Referred To Contact Cardiology Diagnoses Edema of both legs Nonrheumatic aortic valve stenosis Primary hypertension Daniel Almanzar MD [address] [facility] [address] [place] [address] Phone: tel: fax: Nima Putnam MD [address] [place] [address], [facility] [address] [place] [address] Phone: tel: fax: Referral ID Status Reason Start Date Expiration Date Visits Requested Visits Authorized [id number] Authorized Specialty Services Required 11/24/2024 11/24/2025 1 1 Reason Comments Post-Cath Heart cath done 01/19, EKG done after procedure. Pt states he is feeling better. Pt has some right lower leg swelling Reason Comments Urinary Retention Pt here with c/o jorge ng unable to void, pt has de oliveira cath [id number], pt reports sensation of needing to void, no urine in de oliveira bag Reason Comments Dizziness Patient reports 2 we ek history of intermittant dizziness and feeling lightheaded. Patient also c/o headache. Denies N/v/D/fever/cough. Patient was seen here Sunday and treated for UTI. Patient feels his dizziness is getting worse. Specialty Diagnoses / Procedures Referred By Deb vázquez Referred To Contact Diagnoses Bradycardia Symptomatic bradycardia Procedures . Cheikh Horne MD [address] [place] [address] Phone: tel: fax: [facility] [address] [place] [address] Phone: tel: Referral ID Status Reason Start Date Expiration Date Visits Re quested Visits Authorized [id number] 1 1 Reason Comments ER Follow-up Hosp discontinue 02/22 11/1861-[id number]-xsc-urinary rentention - supposed to get surgery for his prostate in May Reason Comments Urinary Retention Pt has a chronic fol ey catheter due to prostate issues. He states that it was not draining last night so he changed the last and noted some milky white discharge. Pt notes burning today, but denies fever or chills. Denies blood in the urine Reason Comments Follow-up SOB / fatigue x 3 mo nths. EKG 03/05/25 Reason Comments Cardiomyopathy Specialty Diagnoses / Procedures Referred By Deb vázquez Referred To Contact Cardiology Diagnoses Nonrheumatic aortic valve stenosis Nima Putnam MD [address] [place] [address], [facility] [address] [place] [address] Phone: tel: fax: Referral ID Status Reason Start Date Expiration Date Visits Requested Visits Authorized [id number] Authorized Specialty Services Required 04/29/2025 04/29/2026 1 1 Care Teams (unrecognized sec tion and content) Travel Agency Manager Relationship Specialty Start Date End Date Daniel Almanzar MD [address] [place] [address] PCP - General 05/27/19 Daniel Almanzar MD [address] [place] [address] PCP - An[employer] Medicare Advantage PCP 09/24/21 Travel Agency Manager Relationship Specialty Start Date End Date Daniel Almanzar MD [address] [place] [address] PCP - General 05/27/19 Daniel Almanzar MD [address] [place] [address] PCP - Anthem Medicare Advantage PCP 09/24/21 Travel Agency Manager Relationship Specialty Start Date End Date Daniel Almanzar MD [address] [place] [address] PCP - General 05/27/19 Daniel Almanzar MD [address] [place] [address] PCP - An[employer] Medicare Advantage PCP 09/24/21 Travel Agency Manager Relationship Specialty Start Date End Date Daniel Almanzar MD [address] [place] [address] PCP - General 05/27/19 Daniel Almanzar MD [address] [facility] [place] [address] PCP - Anthem Medicare Advantage PCP 09/24/21 Travel Agency Manager Relationship Specialty Start Date End Date Daniel Almanzar MD [address] [place] [address] PCP - General 05/27/19 Daniel Almanzar MD [address] [place] [address] PCP - Anthem Medicare Advantage PCP 09/24/21 Travel Agency Manager Relationship Specialty Start Date End Date Daniel Almanzar MD [address] [place] [address] PCP - General 05/27/19 Daniel Almanzar MD [address] [place] [address] PCP - An[employer] Medicare Advantage PCP 09/24/21 Travel Agency Manager Relationship Specialty Start Date End Date Daniel Almanzar MD [address] [place] [address] PCP - General 05/27/19 Daniel Almanzar MD [address] [place] [address] PCP - Anthem Medicare Advantage PCP 09/24/21 Travel Agency Manager Relationship Specialty Start Date End Date Daniel Almanzar MD [address] [place] [address] PCP - General 05/27/19 Daniel Almanzar MD [address] [place] [address] PCP - Anthem Medicare Advantage PCP 09/24/21 Travel Agency Manager Relationship Specialty Start Date End Date Daniel Almanzar MD [address] [place] [address] PCP - General 05/27/19 Daniel Almanzar MD [address] [place] [address] PCP - Anthem Medicare Advantage PCP 09/24/21 Travel Agency Manager Relationship Specialty Start Date End Date Daniel Almanzar MD [address] [place] [address] PCP - General 05/27/19 Daniel Almanzar MD [address] [place] [address] PCP - Anthem Medicare Advantage PCP 09/24/21 Travel Agency Manager Relationship Specialty Start Date End Date Daneil Almanzar MD [address] [place] [address] PCP - General 05/27/19 Daniel Almanzar MD [address] [place] [address] PCP - Anthem Medicare Advantage PCP 09/24/21 Travel Agency Manager Relationship Specialty Start Date End Date Daniel Almanzar MD [address] [place] [address] PCP - General 05/27/19 Daniel Almanzar MD [address] [place] [address] PCP - Anthem Medicare Advantage PCP 09/24/21 Travel Agency Manager Relationship Specialty Start Date End Date Daniel Almanzar MD [address] [place] [address] PCP - General 05/27/19 Daniel Almanzar MD [address] [place] [address] PCP - Anthem Medicare Advantage PCP 09/24/21 Travel Agency Manager Relationship Specialty Start Date End Date Daniel Almanzar MD [address] [place] [address] PCP - General 05/27/19 Daniel Almanzar MD [address] [place] [address] PCP - Anthem Medicare Advantage PCP 09/24/21 Travel Agency Manager Relationship Specialty Start Date End Date Daniel Almanzar MD [address] [place] [address] PCP - General 05/27/19 Daniel Almanzar MD [address] [place] [address] PCP - Anthem Medicare Advantage PCP 09/24/21 Travel Agency Manager Relationship Specialty Start Date End Date Daniel Almanzar MD [address] [place] [address] PCP - General 05/27/19 Daniel Almanzar MD [address] [place] [address] PCP - Anthem Medicare Advantage PCP 09/24/21 Travel Agency Manager Relationship Specialty Start Date End Date Daniel Almanzar MD [address] [place] [address] PCP - General 05/27/19 Daniel Almanzar MD [address] [place] [address] PCP - Anthem Medicare Advantage PCP 09/24/21 Travel Agency Manager Relationship Specialty Start Date End Date Daniel Almanzar MD [address] [place] [address] PCP - General 05/27/19 Daniel Almanzar MD [address] [place] [address] PCP - Anthem Medicare Advantage PCP 09/24/21 Travel Agency Manager Relationship Specialty Start Date End Date Daniel Almanzar MD [address] [place] [address] PCP - General 05/27/19 Daniel Almanzar MD [address] [place] [address] PCP - Anthem Medicare Advantage PCP 09/24/21 Travel Agency Manager Relationship Specialty Start Date End Date Daniel Almanzar MD [address] [place] [address] PCP - General 05/27/19 Daniel Almanzar MD [address] [place] [address] PCP - Anthem Medicare Advantage PCP 09/24/21 Travel Agency Manager Relationship Specialty Start Date End Date Daniel Almanzar MD [address] [facility] [place] [address] PCP - General 05/27/19 Daniel Almanzar MD [address] [facility] [place] [address] PCP - Anthem Medicare Advantage PCP 09/24/21 Travel Agency Manager Relationship Specialty Start Date End Date Daniel Almanzar MD [address] [place] [address] PCP - General 05/27/19 Daniel Almanzar MD [address] [place] [address] PCP - Anthem Medicare Advantage PCP 09/24/21 Travel Agency Manager Relationship Specialty Start Date End Date Daniel Almanzar MD [address] [place] [address] PCP - General 05/27/19 Daniel Almanzar MD [address] [place] [address], [place] [address] PCP - Anthem Medicare Advantage PCP 09/24/21 Travel Agency Manager Relationship Specialty Start Date End Date Daniel Almanzar MD [address] [place] [address] PCP - General 05/27/19 Daniel Almanzar MD [address] [place] [address] PCP - Anthem Medicare Advantage PCP 09/24/21 Travel Agency Manager Relationship Specialty Start Date End Date Daniel Almanzar MD [address] [place] [address] PCP - General 05/27/19 Daniel Almanzar MD [address] [place] [address] PCP - [employer] Medicare Advantage PCP 09/24/21 Travel Agency Manager Relationship Specialty Start Date End Date Daniel Almanzar MD [address] [place] [address] PCP - General 05/27/19 Daniel Almanzar MD [address] [place] [address] PCP - [employer] Medicare Advantage PCP 09/24/21 Travel Agency Manager Relationship Specialty Start Date End Date Daniel Almanzar MD [address] [address] PCP - General 05/27/19 Daniel Almanzar MD [address] [address] PCP - [employer] Medicare Advantage PCP 09/24/21 Travel Agency Manager Relationship Specialty Start Date End Date Daniel Almanzar MD [address] [address] PCP - General 05/27/19 Daniel Almanzar MD [address] [place] [address] PCP - Anthem Medicare Advantage PCP 09/24/21 Travel Agency Manager Relationship Specialty Start Date End Date Daniel Almanzar MD [address] [address] PCP - General 05/27/19 Daniel Almanzar MD [address] [place] [address], [place] [address] PCP - Anthem Medicare Advantage PCP 09/24/21 Travel Agency Manager Relationship Specialty Start Date End Date Daniel Almanzar MD [address] [place] [address] PCP - General 05/27/19 Daniel Almanzar MD [address] [place] [address] PCP - Anthem Medicare Advantage PCP 09/24/21 Travel Agency Manager Relationship Specialty Start Date End Date Daniel Almanzar MD [address] [place] [address] PCP - General 05/27/19 Daniel Almanzar MD [address] [place] [address] PCP - Anthem Medicare Advantage PCP 09/24/21 Travel Agency Manager Relationship Specialty Start Date End Date Daniel Almanzar MD [address] [place] [address] PCP - General 05/27/19 Daniel Almanzar MD [address] [place] [address], [place] [address] PCP - Anthem Medicare Advantage PCP 09/24/21 Travel Agency Manager Relationship Specialty Start Date End Date Daniel Almanzar MD [address] [place] [address] PCP - General 05/27/19 Daniel Almanzar MD [address] [address] PCP - [employer] Medicare Advantage PCP 09/24/21 Rose Mary Matos, DIESEL SERVICE APPRENTICE-MINE ENGINEERING SUPERVISOR [facility] [place] [address] Referring Physician Hospitalist 10/20/24 Daniel Almanzar MD [address] [address] Primary Care Provider Family Medicine 10/20/24 Travel Agency Manager Relationship Specialty Start Date End Date Daniel Almanzar MD [address] [place] [phone] PCP - General 05/27/19 Daniel Almanzar MD [address] [address] PCP - [employer] Medicare Advantage PCP 09/24/21 Rose Mary Matos, DIESEL SERVICE APPRENTICE-MINE ENGINEERING SUPERVISOR [address] [place] [address] Referring Physician Hospitalist 10/20/24 Daniel Almanzar MD [address] [address] Primary Care Provider Family Medicine 10/20/24 Surinder Padron, magnetic resonance imaging coordinatorPhysical Damage Appraiser 10/21/24 Travel Agency Manager Relationship Specialty Start Date End Date Daniel Almanzar MD [address] [address] PCP - General 05/27/19 Daniel Almanzar MD [address] [place] [phone] PCP - Anthem Medicare Advantage PCP 09/24/21 Rose Mary Matos, DIESEL SERVICE APPRENTICE-MINE ENGINEERING SUPERVISOR [address] [place], [place] [address] Referring Physician Hospitalist 10/20/24 Daniel Almanzar MD [address] [address] Primary Care Provider Family Medicine 10/20/24 Surinder Padron, magnetic resonance imaging coordinatorPhysical Damage Appraiser 10/21/24 Travel Agency Manager Relationship Specialty Start Date End Date Daniel Almanzar MD [address] [place] [address] PCP - General 05/27/19 Daniel Almanzar MD [address] [place] [phone] PCP - Anthem Medicare Advantage PCP 09/24/21 Rose Mary Matos, DIESEL SERVICE APPRENTICE-MINE ENGINEERING SUPERVISOR [address] [place], [place] [address] Referring Physician Hospitalist 10/20/24 Daniel Almanzar MD [address] [address] Primary Care Provider Family Medicine 10/20/24 Surinder Padron, magnetic resonance imaging coordinatorPhysical Damage Appraiser 10/21/24 Travel Agency Manager Relationship Specialty Start Date End Date Daniel Almanzar MD [address] [address] PCP - General 05/27/19 Daniel Almanzar MD [address] [address] PCP - [employer] Medicare Advantage PCP 09/24/21 Rose Mary Matos, DIESEL SERVICE APPRENTICE-MINE ENGINEERING SUPERVISOR [address] [place] [address] Referring Physician Hospitalist 10/20/24 Daniel Almanzar MD [address] [address] Primary Care Provider Family Medicine 10/20/24 Surinder Padron, magnetic resonance imaging coordinatorPhysical Damage Appraiser 10/21/24 11/24/24 Travel Agency Manager Relationship Specialty Start Date End Date Daniel Almanzar MD [address] [place] [phone] PCP - General 05/27/19 Daniel Almanzar MD [address] [address] PCP - [employer] Medicare Advantage PCP 09/24/21 Rose Mary Matos, DIESEL SERVICE APPRENTICE-MINE ENGINEERING SUPERVISOR [address] [place] [address] Referring Physician Hospitalist 10/20/24 Daniel Alamnzar MD [address] [address] Primary Care Provider Family Medicine 10/20/24 Travel Agency Manager Relationship Specialty Start Date End Date Daniel Almanzar MD [address] [address] PCP - General 05/27/19 Daniel Almanzar MD [address] [address] PCP - Anthem Medicare Advantage PCP 09/24/21 Rose Mary Matos, DIESEL SERVICE APPRENTICE-MINE ENGINEERING SUPERVISOR [address] [place] [address] Referring Physician Hospitalist 10/20/24 Daniel Almanzar MD [address] [place] [phone] Primary Care Provider Family Medicine 10/20/24 Travel Agency Manager Relationship Specialty Start Date End Date Daniel Almanzar MD [address] [place] [phone] PCP - General 05/27/19 Daniel Almanzar MD [address] [place], [place] [id number] PCP - Anthem Medicare Advantage PCP 09/24/21 Rose Mary Matos, DIESEL SERVICE APPRENTICE-MINE ENGINEERING SUPERVISOR [address] [place] [address] Referring Physician Hospitalist 10/20/24 Daniel Almanzar MD [address] [address] Primary Care Provider Family Medicine 10/20/24 Travel Agency Manager Relationship Specialty Start Date End Date Daniel Almanzar MD [address] [place] [phone] PCP - General 05/27/19 Daniel Almanzar MD [address] [place] [phone] PCP - [place] Medicare Advantage PCP 09/24/21 Rose Mary Matos, DIESEL SERVICE APPRENTICE-MINE ENGINEERING SUPERVISOR [facility] [place] [phone] Referring Physician Hospitalist 10/20/24 Daniel Almanzar MD [address] [place] [phone] Primary Care Provider Family Medicine 10/20/24 Travel Agency Manager Relationship Specialty Start Date End Date Daniel Almanzar MD [address] [place] [phone] PCP - General 05/27/19 Daniel Almanzar MD [address] [place] [phone] PCP - [place] Medicare Advantage PCP 09/24/21 Rose Mary Matos, DIESEL SERVICE APPRENTICE-MINE ENGINEERING SUPERVISOR [address] [place], [place] [address] Referring Physician Hospitalist 10/20/24 Daniel Almanzar MD [address] [address] Primary Care Provider Family Medicine 10/20/24 Travel Agency Manager Relationship Specialty Start Date End Date Daniel Almanzar MD [address] [address] PCP - General 05/27/19 Daniel Almanzar MD [address] [address] PCP - Anthem Medicare Advantage PCP 09/24/21 Rose Mary Matos, DIESEL SERVICE APPRENTICE-MINE ENGINEERING SUPERVISOR [facility] [place] [address] Referring Physician Hospitalist 10/20/24 Daniel Almanzar MD [address] [address] Primary Care Provider Family Medicine 10/20/24 Travel Agency Manager Relationship Specialty Start Date End Date Daniel Almanzar MD [address] [place] [phone] PCP - General 05/27/19 Daniel Almanzar MD [address] [address] PCP - Anthem Medicare Advantage PCP 09/24/21 Rose Mary Matos, DIESEL SERVICE APPRENTICE-MINE ENGINEERING SUPERVISOR [facility] [place] [address] Referring Physician Hospitalist 10/20/24 Daniel Almanzar MD [address] [address] Primary Care Provider Family Medicine 10/20/24 Travel Agency Manager Relationship Specialty Start Date End Date Daniel Almanzar MD [address] [address] PCP - General 05/27/19 Daniel Almanzar MD [address] [place] [address] PCP - [employer] Medicare Advantage PCP 09/24/21 Rose Mary Matos DIESEL SERVICE APPRENTICE-MINE ENGINEERING SUPERVISOR [address] [place] [address] Referring Physician Hospitalist 10/20/24 Daniel Almanzar MD [address] [place] [address] Primary Care Provider Family Medicine 10/20/24 Travel Agency Manager Relationship Specialty Start Date End Date Daniel Almanzar MD [address] [address] PCP - General 05/27/19 Daniel Almanzar MD [address] [place] [address] PCP - Anthem Medicare Advantage PCP 09/24/21 Rose Mary Matos, DIESEL SERVICE APPRENTICE-MINE ENGINEERING SUPERVISOR [address] [place] [address] Referring Physician Hospitalist 10/20/24 Daniel Almanzar MD [address] [place] [address] Primary Care Provider Family Medicine 10/20/24 Travel Agency Manager Relationship Specialty Start Date End Date Daniel Almanzar MD [address] [place] [address] PCP - General 05/27/19 Daniel Almanzar MD [address] [address] PCP - [employer] Medicare Advantage PCP 09/24/21 Rose Mary Matos APRN-MINE ENGINEERING SUPERVISOR [address] [place] [address] Referring Physician Hospitalist 10/20/24 Daniel Almanzar MD [address] [address] Primary Care Provider Family Medicine 10/20/24 Erica Ying, RN Automatic Door MechanicPhysical Damage Appraiser 03/06/25 Travel Agency Manager Relationship Specialty Start Date End Date Daniel Almanzar MD [address] [address] PCP - General 05/27/19 Daniel Almanzar MD [address] [address] PCP - [employer] Medicare Advantage PCP 09/24/21 Rose Mary Matos, DIESEL SERVICE APPRENTICE-MINE ENGINEERING SUPERVISOR [address] [place] [address] Referring Physician Hospitalist 10/20/24 Daniel Almanzar MD [address] [address] Primary Care Provider Family Medicine 10/20/24 Erica Ying RN Automatic Door MechanicPhysical Damage Appraiser 03/06/25 Travel Agency Manager Relationship Specialty Start Date End Date Daniel Almanzar MD [address] [address] PCP - General 05/27/19 Daniel Almanzar MD [address] [address] PCP - Anthem Medicare Advantage PCP 09/24/21 Rose Mary Matos, DIESEL SERVICE APPRENTICE-MINE ENGINEERING SUPERVISOR [address] [place] [address] Referring Physician Hospitalist 10/20/24 Daniel Almanzar MD [address] [address] Primary Care Provider Family Medicine 10/20/24 Prabhakar Valverde, AYAAN Automatic Door MechanicPhysical Damage Appraiser 03/20/25 Travel Agency Manager Relationship Specialty Start Date End Date Daniel Almanzar MD [address] [address] PCP - General 05/27/19 Daniel Almanzar MD [address] [address] PCP - Anthem Medicare Advantage PCP 09/24/21 Rose Mary Matos, DIESEL SERVICE APPRENTICE-MINE ENGINEERING SUPERVISOR [address] [place] [address] Referring Physician Hospitalist 10/20/24 Daniel Almanzar MD [address] [address] Primary Care Provider Family Medicine 10/20/24 Prabhakar Valverde, RN Automatic Door MechanicPhysical Damage Appraiser 03/20/25 Travel Agency Manager Relationship Specialty Start Date End Date Daniel Almanzar MD [address] [address] PCP - General 05/27/19 Daniel Almanzar MD [address] [address] PCP - Anthem Medicare Advantage PCP 09/24/21 Rose Mary Matos, DIESEL SERVICE APPRENTICE-MINE ENGINEERING SUPERVISOR [address] [place] [address] Referring Physician Hospitalist 10/20/24 Daniel Almanzar MD [address] [address] Primary Care Provider Family Medicine 10/20/24 Prabhakar Valverde, RN Automatic Door MechanicPhysical Damage Appraiser 03/20/25 Travel Agency Manager Relationship Specialty Start Date End Date Daniel Almanzar MD [address] [address] PCP - General 05/27/19 Daniel Almanzar MD [address] [address] PCP - Anthem Medicare Advantage PCP 09/24/21 Rose Mary Matos, DIESEL SERVICE APPRENTICE-MINE ENGINEERING SUPERVISOR [address] [place] [address] Referring Physician Hospitalist 10/20/24 Daniel Almanzar MD [address] [address] Primary Care Provider Family Medicine 10/20/24 Prabhakar Valverde, RN Automatic Door MechanicPhysical Damage Appraiser 03/20/25 Travel Agency Manager Relationship Specialty Start Date End Date Daniel Almanzar MD [address] [address] PCP - General 05/27/19 Daniel Almanzar MD [address] [address] PCP - Anthem Medicare Advantage PCP 09/24/21 Rose Mary Matos APRN-MINE ENGINEERING SUPERVISOR [address] [place] [address] Referring Physician Hospitalist 10/20/24 Daniel Almanzar MD [address] [address] Primary Care Provider Family Medicine 10/20/24 Travel Agency Manager Relationship Specialty Start Date End Date Daniel Almanzar MD [address] [address] PCP - General 05/27/19 Daniel Almanzar MD [address] [address] PCP - [place] Medicare Advantage PCP 09/24/21 Rose Mary Matos APRN-MINE ENGINEERING SUPERVISOR [address] [address] Referring Physician Hospitalist 10/20/24 Daniel Almanzar MD [address] [address] Primary Care Provider Family Medicine 10/20/24 Travel Agency Manager Relationship Specialty Start Date End Date Daniel Almanzar MD [address] [address] PCP - General 05/27/19 Daniel Almanzar MD [address] [place] [address] PCP - Anthem Medicare Advantage PCP 09/24/21 Rose Mary Matos, DIESEL SERVICE APPRENTICE-MINE ENGINEERING SUPERVISOR [address] [place] [address] Referring Physician Hospitalist 10/20/24 Daniel Almanzar MD [address] [address] Primary Care Provider Family Medicine 10/20/24 Travel Agency Manager Relationship Specialty Start Date End Date Daniel Almanzar MD [address] [address] PCP - General 05/27/19 Daniel Almanzar MD [address] [address] PCP - Anthem Medicare Advantage PCP 09/24/21 Rose Mary Matos, DIESEL SERVICE APPRENTICE-MINE ENGINEERING SUPERVISOR [address] [address] Referring Physician Hospitalist 10/20/24 Daniel Almanzar MD [address] [place] [address], [place] [address] Primary Care Provider Family Medicine 10/20/24 <item> Privacy Markings (unrecogniz ed section and content) Section Author: Sonia Rivers PROHIBITION ON REDISCLOSURE OF CONFIDENTIAL INFORMATION This notice accompanies a disclosure of information concerning a client made to you with the consent of such client. Scheduled Active and Recently Administ ered Medications (unrecognized section and content) Medication Order 05/27/2024 05/28/2024 05/29/2024 potassium chloride CR (Klor-Con M20) ER tablet 20 mEq (COMPLETED) 20 mEq, oral, Once, On Thelma 05/29/24 at 1340, For 1 dose, Best given with food and plenty of water to minimize gastric irritation. Do not crush or chew. 1425 (Given - Provid er: Nia Garcia RN) Scheduled Medication Order 10/18/2024 10/19/2024 10/20/2024 allopurinol (Zyloprim) tablet 300 mg 300 mg, oral, Daily, First dose on 10/19/24 at 0900 0847 (Given - Provider: Shania Blas RN) 0826 (Given - Provider: Iris Benavidez, AYAAN) carvedilol (Coreg) tablet 6.25 mg 6.25 mg, oral, 2 times daily (morning and late afternoon), First dose on 10/19/24 at 0800, Do not give if HR < 65 0846 (Not Given - Provider: Shania Blas RN - Reason: Order parameters not met - Comment: HR [phone] (Not Given - Provider: Shania Blas RN - Reason: Order parameters not met) 0823 (Not Given - Provider: Iris Benavidez RN - Reason: Other - Comment: heart rate [phone] (Due) ezetimibe (Zetia) tablet 10 mg 10 mg, oral, Daily, First dose on 10/19/24 at 0900 0848 (Given - Provider: Shania Blas RN) 08 (Given - Provider: Iris Benavidez, AYAAN) finasteride (Proscar) tablet 5 mg 5 mg, oral, Daily, First dose on 10/19/24 at 0900, Do not crush, chew, or split. 0846 (Given - Provider: Shania Blas RN) 08 (Given - Provider: Iris Benavidez RN) gabapentin (Neurontin) capsule 300 mg 300 mg, oral, 2 times daily, First dose on 10/19/24 at 0200, Capsules may be opened and sprinkled on food (eg, applesauce, orange juice, pudding 0259 (Not Given - Provider: Nette Restrepo RN - Reason: Other - Comment: patient sleeping at this time, new med order will recieve a dose at [phone] (Given - Provider: Shania Blas RN)2022 (Given - Provider: Juanita Hernandez RN) 08 (Given - Provider: Iris eBnavidez RN)2100 (Due) insulin glargine (Lantus) injection 19 Units 19 Units, subcutaneous, Daily before breakfast, First dose on 10/19/24 at 0700 0845 (Given - Provider: Shania Blas RN - Comment: given with breakfast) 08 (Given - Provider: Iris Benavidez RN) insulin lispro injection 0-20 Units 0-20 Units, subcutaneous, 3 times daily before meals and nightly, First dose on 10/19/24 at 0700, Do not hold when patient is not eating, continue order as scheduled for hyperglycemia management. Insulin Lispro Corrective Scale #4 Hypoglycemia protocol Call LIP unit(s) if Blood Glucose is between 0 - 70 mg/dL 0 unit(s) if Blood glucose is between 71-150 4 unit(s) if Blood glucose is between 151-200 8 unit(s) if Blood glucose is between 201-250 12 unit(s) if Blood glucose is between 251-300 16 unit(s) if Blood glucose is between 301-350 20 unit(s) if Blood glucose is between 351-400 Notify provider unit(s) if Blood Glucose is greater than 400 mg/dL 09 (Not Given - Provider: Shania Blas RN - Reason: Other - Comment: 174 in AM bloodwork, bedside glucose not taken prior to breakfast, will reassess at 1100)1130 (Not Given - Provider: Shania Blas RN - Reason: Order parameters not met - Comment: [phone] (Not Given - Provider: Shania Blas RN - Reason: Order parameters not met - Comment: [phone] (Not Given - Provider: Juanita Hernandez RN - Reason: Order parameters not met) 0823 (Not Given - Provider: Iris Benavidez RN - Reason: Order parameters not met)1224 (Given - Provider: Iris Benavidez RN)1600 (Due)2100 (Due) lidocaine 2 % mucosal jelly (Uro-Jet) 1 Application (COMPLETED) 1 Application, urethral, Once, On 10/19/24 at 1145, For 1 dose, Prior to straight cath 1316 (Given - Provider: Shania Blas RN) lidocaine 2 % mucosal jelly (Uro-Jet) 1 Application (COMPLETED) 1 Application, urethral, Once, On 10/19/24 at 1900, For 1 dose, Prior to de oliveira placement 1840 (Given - Provider: Shania Blas RN - Comment: prior to de oliveira insertion) pantoprazole (ProtoNix) EC tablet 40 mg 40 mg, oral, Daily before breakfast, First dose on 10/19/24 at 0700, Do not crush, chew, or split. 0847 (Given - Provider: Shania Blas RN) 0537 (Given - Provider: Juanita Hernandez RN) perflutren lipid microspheres (Definity) injection 0.5-10 mL of dilution (COMPLETED) 0.5-10 mL of dilution, intravenous, Once in imaging, Starting on Sun10/20/24 at 0430, For 1 dose, CV Medications, Contrast - for use by imaging provider only. Prior to administration, Definity product must be activated. First, bring vial to room temperature. Then, shake vial for 45 seconds. Do not use if the 45 second activation cycle has not been completed. Following activation, the product will appear as a milky white suspension and may be used immediately. If not used within 5 minutes of activation, re-suspend by inverting and shaking the vial for 10 seconds. Discard unused product. Administration: Dilute 1.3 mL of activated DEFINITY with 8.7 mL of normal saline in a 10 mL syringe. Inject 0.5 mL of diluted DEFINITY when notified the images/film are unclear to enhance view of Left Ventricular borders. Repeat 0.5 mL of DEFINITY until clear images are obtained, not to exceed 10 mLs. Once images are obtained or limit of medication is reached, flush line with 10 mL of Normal Saline. 0458 (Given - Provider: Juanita Hernandez RN) perflutren protein A microsphere (Optison) injection 0.5 mL 0.5 mL, intravenous, Once in imaging, Starting on Sun10/20/24 at 0430, For 1 dose, CV Medications sodium chloride 0.9 % bolus 500 mL (COMPLETED) 500 mL, intravenous, at 500 mL/hr, Administer over 1 Hours, Once, On 10/18/24 at 1530, For 1 dose 1553 (New Bag - Provider: Ashley Solano, AYAAN)1722 (Stopped - Provider: Ashley Solano RN) sulfur hexafluoride microsphr (Lumason) injection 24.28 mg 24.28 mg (2 mL), intravenous, Once in imaging, Starting on Sun10/20/24 at 0430, For 1 dose, CV Medications, Follow administration with 5 mL NaCL 0.9% injection. tamsulosin (Flomax) 24 hr capsule 0.4 mg 0.4 mg, oral, Daily, First dose on Sun10/19/24 at 0900, Give 30 minutes after the same mealtime each day. Capsules should be swallowed whole; do not crush, chew, or open. 0847 (Given - Provider: Shania Blas RN) 0828 (Given - Provider: Iris Benavidez RN) PRN Medication Order 10/18/2024 10/19/2024 10/20/2024 acetaminophen (Tylenol) oral liquid 650 mg(Linked Group 1) 650 mg, oral, Every 4 hours PRN, pain mild (1-3), first line, Starting on Sun10/19/24 at 0132, Give oral liquid per feeding tube if present. acetaminophen (Tylenol) suppository 650 mg(Linked Group 1) 650 mg, rectal, Every 4 hours PRN, pain mild (1-3), first line, Starting on Sun10/19/24 at 0132, Give rectally if unable to administer by mouth or feeding tube., If ordered PRN for pain, nurse is permitted to administer this medication for higher pain scores based on patient preference? Yes acetaminophen (Tylenol) tablet 650 mg(Linked Group 1) 650 mg, oral, Every 4 hours PRN, pain mild (1-3), first line, Starting on 10/19/24 at 0132, If ordered PRN for pain, nurse is permitted to administer this medication for higher pain scores based on patient preference? Yes dextrose 50 % injection 12.5 g 12.5 g, intravenous, Every 15 min PRN, For blood glucose 41 to 70 mg/dL, Starting on 10/19/24 at 0007, May repeat until blood glucose level reaches 100 mg/dL or greater. Push 2 - 3 mL/minute if patient has secure IV access. dextrose 50 % injection 25 g 25 g, intravenous, Every 15 min PRN, For blood glucose less than or equal to 40 mg/dL, Starting on 10/19/24 at 0007, May repeat until blood glucose level reaches 100 mg/dL or greater. Push 2 - 3 mL/minute if patient has secure IV access. glucagon (Glucagen) injection 1 mg 1 mg, intramuscular, Every 15 min PRN, blood glucose less than or equal to 40 mg/dL - see comments, For blood glucose less than or equal to 40 mg/dL and no IV access, Starting on 10/19/24 at 0007, Give until blood glucose is 100 mg/dL or greater. If patient DOES NOT HAVE secure IV access & patient is unconscious, NPO or is unable to eat or drink. glucagon (Glucagen) injection 1 mg 1 mg, intramuscular, Every 15 min PRN, low blood sugar - see comments, For blood glucose less than or equal to 70 mg/dL and no IV access, Starting on 10/19/24 at 0007, Give until blood glucose is 100 mg/dL or greater. If patient DOES NOT HAVE secure IV access & patient is unconscious, NPO or is unable to eat or drink. HYDROmorphone (Dilaudid) injection 0.2 mg 0.2 mg, intravenous, Every 3 hours PRN, pain moderate (4-6), first line, Starting on Sun10/19/24 at 1615 8 (Given - Provider: Juanita Hernandez RN) HYDROmorphone (Dilaudid) injection 0.5 mg 0.5 mg, intravenous, Every 3 hours PRN, pain severe (7-10), first line, Starting on 10/18/24 at 2210 2217 (Given - Provider: Nette Restrepo, RN) 0537 (Given - Provider: Nette Restrepo, RN)1617 (Given - Provider: Shania Blas, RN) 0538 (Given - Provider: Juanita Hernandez, RN)1323 (Given - Provider: Clover Nesbitt RN) magnesium hydroxide (Milk of Magnesia) 400 mg/5 mL suspension 30 mL 30 mL, oral, Daily PRN, constipation, first line, Starting on 10/19/24 at 0132, Contact provider if no bowel movement in past 48 hours. Follow administration with 8 ounces of water. ondansetron (Zofran) injection 4 mg(Linked Group 2) 4 mg, intravenous, Every 8 hours PRN, nausea/vomiting, first line, Starting on 10/19/24 at 0132, 1st Line. Give IV if patient is unable to take orally. If inadequate response within 60 minutes, proceed to next-line agent for same PRN reason or contact provider if no further options ordered. When administering via IV Push, administer over 3-5 minutes. ondansetron ODT (Zofran-ODT) disintegrating tablet 4 mg(Linked Group 2) 4 mg, oral, Every 8 hours PRN, nausea/vomiting, first line, Starting on 10/19/24 at 0132, 1st Line. Patient should allow tablet to dissolve on tongue. Do not remove from blister pack until just before administering. If inadequate response within 60 minutes, proceed to next-line agent for same PRN reason or contact provider if no further options ordered. oxygen (O2) therapy inhalation, Continuous PRN - O2/gases, other, Starting on 10/18/24 at 195, Device: Nasal Cannula, Rate in liters per minute: 2 LPM, Keep O2 Sat Above: 90% 1958 (Start - Provider: Shruthi Nolasco, WALLACE)2199 (Rate Verify Medical Gas - Provider: Chema Whitlock, WALLACE) 0016 (Rate Verify Medical Gas - Provider: Chema Whitlock, WALLACE) 0631 (Rate Verify Medical Gas - Provider: Sosa Nickerson, CAPACITY ANALYST)1206 (Rate Verify Medical Gas - Provider: Sosa Nickerson, CAPACITY ANALYST) Linked Groups Order Group 1: acetaminophen (Tylenol) tablet 650 mgJump to med 650 mg, oral, Every 4 hours PRN, pain mild (1-3), first line, Starting on 10/19/24 at 0132, If ordered PRN for pain, nurse is permitted to administer this medication for higher pain scores based on patient preference? Yes Or acetaminophen (Tylenol) oral liquid 650 mgJump to med 650 mg, oral, Every 4 hours PRN, pain mild (1-3), first line, Starting on 10/19/24 at 0132, Give oral liquid per feeding tube if present. Or acetaminophen (Tylenol) suppository 650 mgJump to med 650 mg, rectal, Every 4 hours PRN, pain mild (1-3), first line, Starting on 10/19/24 at 0132, Give rectally if unable to administer by mouth or feeding tube., If ordered PRN for pain, nurse is permitted to administer this medication for higher pain scores based on patient preference? Yes Group 2: ondansetron ODT (Zofran-ODT) disintegrating tablet 4 mgJump to med 4 mg, oral, Every 8 hours PRN, nausea/vomiting, first line, Starting on 10/19/24 at 0132, 1st Line. Patient should allow tablet to dissolve on tongue. Do not remove from blister pack until just before administering. If inadequate response within 60 minutes, proceed to next-line agent for same PRN reason or contact provider if no further options ordered. Or ondansetron (Zofran) injection 4 mgJump to med 4 mg, intravenous, Every 8 hours PRN, nausea/vomiting, first line, Starting on 10/19/24 at 0132, 1st Line. Give IV if patient is unable to take orally. If inadequate response within 60 minutes, proceed to next-line agent for same PRN reason or contact provider if no further options ordered. When administering via IV Push, administer over 3-5 minutes. Scheduled Medication Order 01/17/2025 01/18/2025 01/19/2025 aspirin chewable tablet 81 mg (COMPLETED) 81 mg, oral, Once, On 01/19/25 at 0815, For 1 dose, Preprocedure 0757 (Given - Provid er: Jose Alfredo Pierre RN) Continuous Medication Order 01/17/2025 01/18/2025 01/19/2025 sodium chloride 0.9% infusion 102 mL/hr, intravenous, Continuous, Starting on Sun01/19/25 at 0815, For 1 hour, Preprocedure 0757 (New Bag - Prov ider: Jose Alfredo Pierre RN)0856 (Due: Order Ending - Provider: Jose Alfredo Pierre RN - Comment: [Order ends at this time. Document the following action when infusion is complete: Stopped]) sodium chloride 0.9% infusion 100 mL/hr, intravenous, Continuous, Starting on Sun01/19/25 at 1000, For 3 hours, Recovery & On Unit, 6-12 hours post procedure. Post-Procedure Hydration Protocol ACC/AHA/SCAI PRN Medication Order 01/17/2025 01/18/2025 01/19/2025 acetaminophen (Tylenol) tablet 650 mg 650 mg, oral, Every 6 hours PRN, pain mild (1-3), first line, Starting on Sun01/19/25 at 1023, If inadequate response within 60 minutes, proceed to next-line agent for same PRN reason or contact provider if no further options ordered., If ordered PRN for pain, nurse is permitted to administer this medication for higher pain scores based on patient preference? Yes 1056 (Given - Provid er: Marti Fernandez RN) clopidogrel (Plavix) tablet (CANCELED) As needed, Starting on Sun01/19/25 at 0958, Intraprocedure 0958 (Given - Provid er: Nima Fay MD - Comment: antiplatelet) fentaNYL PF (Sublimaze) injection (CANCELED) As needed, Starting on Sun01/19/25 at 0834, Intraprocedure 0834 (Given - Provid er: Daisha Garcia RN - Comment: sedation) heparin 1,000 unit/mL injection (CANCELED) As needed, Starting on Sun01/19/25 at 0840, Intraprocedure 0840 (Given - Provid er: Nima Fay MD - Comment: radial cocktailanticoagg.double verified)0905 (Canceled Entry - Provider: Nima Fay MD - Comment: anticoaggdouble verified)0913 (Given - Provider: Daisha Garcia, RN - Comment: double verified by check writer,catalina.) hydrALAZINE (Apresoline) injection (CANCELED) As needed, Starting on Sun01/19/25 at 0957, Intraprocedure 0957 (Given - Provid er: Nima Fay MD - Comment: BP 200s/80s) iodixanol (VISIPaque) 320 mg iodine/mL injection (CANCELED) As needed, Starting on Sun01/19/25 at 1001, Intraprocedure 1001 (Given - Provid er: Nima Fay MD - Comment: opacification) lidocaine (Xylocaine) 20 mg/mL (2 %) injection (CANCELED) As needed, Starting on Sun01/19/25 at 0835, Intraprocedure 0835 (Given - Provid er: Nima Fay MD - Comment: right brachial numbing)0840 (Given - Provider: Nima Fay MD - Comment: right wrist numbing)0900 (Given - Provider: Nima Fay MD - Comment: right groin numbing) midazolam (Versed) injection (CANCELED) As needed, Starting on Sun01/19/25 at 0834, Intraprocedure 0834 (Given - Provid er: Daisha Garcia, RN - Comment: sedation) nitroglycerin in 5 % dextrose 10 mL syringe (CANCELED) As needed, Starting on Sun01/19/25 at 0944, Intraprocedure 0944 (Given - Provid er: Nima Fay MD - Comment: vasodilation)0957 (Given - Provider: Nima Fay MD - Comment: vasodilation) verapamil (Isoptin) injection (CANCELED) As needed, Starting on Sun01/19/25 at 0841, Intraprocedure 0841 (Given - Provid er: Nima Fay MD - Comment: radial cocktail) Scheduled Medication Order 02/26/2025 02/27/2025 02/28/2025 ciprofloxacin (Cipro) tablet 500 mg (COMPLETED) 500 mg, oral, Once, On 02/28/25 at 0255, For 1 dose, Separate at least 2 hours before or 6 hours after antacids or other products containing calcium, iron, or zinc., Dosing of this medication varies based on severity of illness. Does this patient have sepsis or concern for sepsis (probable or documented infection plus systemic manifestations of infection)? Yes, Suspected Indication (Select all that apply): Urinary Tract Infection, Type of Therapy: Empiric, Type of Urinary Tract Infection: Uncomplicated, Indications: Urinary Tract Infection 0256 (Given - Provid er: Angela Oakley RN) lidocaine 2 % mucosal jelly (Uro-Jet) 1 Application (COMPLETED) 1 Application, urethral, Once, On 02/28/25 at 0155, For 1 dose, Apply to urethra. 0202 (Given - Provid er: Angela Oakley RN) Scheduled Medication Order 03/03/2025 03/04/2025 03/05/2025 allopurinol (Zyloprim) tablet 300 mg 300 mg, oral, Daily, First dose on Thelma 03/05/25 at 0900, Indications: prevention of acute gout attack 1009 (Given - Provid er: Ailyn Elizabeth RN) amLODIPine (Norvasc) tablet 10 mg 10 mg, oral, Daily, First dose on Sun03/06/25 at 0900 aspirin chewable tablet 81 mg 81 mg, oral, Daily, First dose on Thelma 03/05/25 at 0900, Indications: prevention of cerebrovascular accident 1009 (Given - Provid er: Ailyn Elizabeth RN) bumetanide (Bumex) tablet 0.5 mg 0.5 mg, oral, Daily, First dose on Thelma 03/05/25 at 0900 1007 (Given - Provid er: Ailyn Elizabeth RN) cetirizine (ZyrTEC) tablet 10 mg 10 mg, oral, Daily, First dose on Thelma 03/05/25 at 0900 1010 (Given - Provid er: Ailyn Elizabeth RN) ciprofloxacin (Cipro) tablet 250 mg 250 mg, oral, Daily, First dose on Thelma 03/05/25 at 0900, Separate at least 2 hours before or 6 hours after antacids or other products containing calcium, iron, or zinc., Dosing of this medication varies based on severity of illness. Does this patient have sepsis or concern for sepsis (probable or documented infection plus systemic manifestations of infection)? No, Suspected Indication (Select all that apply): Urinary Tract Infection, Type of Therapy: Definitive, Based on Culture, Type of Urinary Tract Infection: Uncomplicated, Indications: Urinary Tract Infection 1009 (Given - Provid er: Ailyn Elizabeth RN) clopidogrel (Plavix) tablet 75 mg 75 mg, oral, Daily, First dose on Sun03/04/25 at 1745, Indications: thrombosis prevention after PCI 1851 (Not Given - Provider: Ashley Solano RN - Reason: Other - Comment: Pt already took this morning) 1009 (Given - Provider: Ailyn Elizabeth RN) empagliflozin (Jardiance) tablet 10 mg 10 mg, oral, Daily, First dose on Thelma 03/05/25 at 0900, Please hold this med 72 hours prior to an NPO event in duration of 12 hours or more., Indications: type 2 diabetes mellitus 1009 (Given - Provid er: Ailyn Elizabeth RN) ezetimibe (Zetia) tablet 10 mg 10 mg, oral, Daily, First dose on Sun03/05/25 at 0900, Indications: hyperlipidemia 1008 (Given - Provid er: Ailyn Elizabeth RN) finasteride (Proscar) tablet 5 mg 5 mg, oral, Daily, First dose on Thelma 03/05/25 at 0900, Do not crush, chew, or split., 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 1008 (Given - Provid er: Ailyn Elizabeth RN) gabapentin (Neurontin) capsule 300 mg 300 mg, oral, 2 times daily, First dose on Sun03/04/25 at 2100, Capsules may be opened and sprinkled on food (eg, applesauce, orange juice, pudding, Indications: postherpetic neuralgia 2031 (Given - Provider: Angela Alexis RN) 1009 (Given - Provider: Ailyn Elizabeth RN)2100 (Due) heparin (porcine) injection 5,000 Units 5,000 Units, subcutaneous, Every 8 hours, First dose on Sun03/04/25 at 1745 2031 (Given - Provider: Angela Alexis RN) 0614 (Given - Provider: Angela Alexis RN)1235 (Given - Provider: Ailyn Elizabeth RN)2100 (Due - Provider: Jorge Hernandez PharmD) insulin glargine (Lantus) injection 19 Units 19 Units, subcutaneous, Every morning, First dose on Sun03/05/25 at 0900, Long-acting insulin should be given regardless of PO intake. Consider dose reduction if concerned for NPO or glucose trending less than 100 mg/dL. 1010 (Given - Provid er: Ailyn Elizbaeth RN) insulin lispro injection 0-10 Units 0-10 Units, subcutaneous, 3 times daily before meals, First dose on Sun03/05/25 at 0700, Do not hold when patient is not eating, continue order as scheduled for hyperglycemia management. Insulin Lispro Corrective Scale #2 Hypoglycemia protocol Call LIP unit(s) if Blood Glucose is between 0 - 70 mg/dL 0 unit(s) if Blood glucose is between 71-150 2 unit(s) if Blood glucose is between 151-200 4 unit(s) if Blood glucose is between 201-250 6 unit(s) if Bloodglucose is between 251-300 8 unit(s) if Blood glucose is between 301-350 10 unit(s) if Blood glucose is between 351-400 If blood glucose is greater than 400 mg/dL, give max insulin per sliding scale AND then contact provider. 1046 (Not Given - Provider: Ailyn Elizabeth RN - Reason: Order parameters not met - Comment: blood lisngli290)1234 (Given - Provider: Ailyn Elizabeth RN)1600 (Due) lidocaine 2 % mucosal jelly (Uro-Jet) 1 Application (COMPLETED) 1 Application, urethral, Once, On Sun03/05/25 at 0815, For 1 dose, Apply to penis for De Oliveira catheter insertion. 1007 (Given - Provid er: Ailyn Elizabeth RN) losartan (Cozaar) tablet 50 mg (CANCELED) 50 mg, oral, Daily, First dose on Sun03/05/25 at 0900 1008 (Given - Provid er: Ailyn Elizabeth RN) tamsulosin (Flomax) 24 hr capsule 0.4 mg 0.4 mg, oral, Daily, First dose on Sun03/05/25 at 0900, Give 30 minutes after the same mealtime each day. 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 Yes dextrose 50 % injection 12.5 g 12.5 g, intravenous, Every 15 min PRN, For blood glucose 41 to 70 mg/dL, Starting on Sun03/04/25 at 1720, May repeat until blood glucose level reaches 100 mg/dL or greater. Push 2 - 3 mL/minute if patient has secure IV access. dextrose 50 % injection 25 g 25 g, intravenous, Every 15 min PRN, For blood glucose less than or equal to 40 mg/dL, Starting on Sun03/04/25 at 1720, May repeat until blood glucose level reaches 100 mg/dL or greater. Push 2 - 3 mL/minute if patient has secure IV access. glucagon (Glucagen) injection 1 mg 1 mg, intramuscular, Every 15 min PRN, blood glucose less than or equal to 40 mg/dL - see comments, For blood glucose less than or equal to 40 mg/dL and no IV access, Starting on Sun03/04/25 at 1720, Give until blood glucose is 100 mg/dL or greater. If patient DOES NOT HAVE secure IV access & patient is unconscious, NPO or is unable to eat or drink. glucagon (Glucagen) injection 1 mg 1 mg, intramuscular, Every 15 min PRN, blood glucose 41 to 70 mg/dL - see comments, For blood glucose 41 to 70 mg/dL and no IV access, Starting on Sun03/04/25 at 1720, Give until blood glucose is 100 mg/dL or greater. If patient DOES NOT HAVE secure IV access & patient is unconscious, NPO or is unable to eat or drink. hydrALAZINE (Apresoline) injection 10 mg 10 mg, intravenous, Every 6 hours PRN, for SBP>160, Starting on Thelma 03/05/25 at 0804 HYDROcodone-acetaminophen (Tensed) 5-325 mg per tablet 1 tablet 1 tablet, oral, Every 6 hours PRN, pain severe (7-10), first line, Starting on Sun03/04/25 at 1720, If ordered PRN for pain, nurse is permitted to administer this medication for higher pain scores based on patient preference? Yes, Indications: bladder tumor magnesium hydroxide (Milk of Magnesia) 400 mg/5 mL suspension 30 mL 30 mL, oral, Daily PRN, constipation, first line, Starting on Sun03/04/25 at 1720, Contact provider if no bowel movement in past 48 hours. Follow administration with 8 ounces of water. melatonin tablet 3 mg 3 mg, oral, Nightly PRN, sleep, Starting on Sun03/04/25 at 1720 ondansetron (Zofran) injection 4 mg 4 mg, intravenous, Every 6 hours PRN, nausea/vomiting, first line, Starting on Sun03/04/25 at 1720, When administering via IV Push, administer over 3-5 minutes. Scheduled Medication Order 03/15/2025 03/16/2025 03/17/2025 lidocaine 2 % mucosal jelly (Uro-Jet) 1 Application (COMPLETED) 1 Application, urethral, Once, On Sun03/17/25 at 1250, For 1 dose, Apply to urethra prior to de oliveira insertion. 1259 (Given - Provid er: Janine Plunkett RN) Scheduled Medication Order 03/28/2025 03/29/2025 03/30/2025 ceFAZolin (Ancef) 2 g in dextrose (iso) IV 50 mL 2 g, intravenous, at 100 mL/hr, Administer over 30 Minutes, Once, On 03/30/25 at 1030, For 1 dose, Preprocedure, Administer within 60 minutes and complete at least 15 minutes prior to incision. Duplex bag - activate before hanging., Dosing of this medication varies based on severity of illness. Does this patient have sepsis or concern for sepsis (probable or documented infection plus systemic manifestations of infection)? No, Suspected Indication (Select all that apply): Surgical Prophylaxis, Indications: Surgical Prophylaxis 1030 (Due) gentamicin (Garamycin) 120 mg in sodium chloride (iso) IV 100 mL (COMPLETED) 120 mg, intravenous, Administer over 30 Minutes, Once, On Sun03/30/25 at 1030, For 1 dose, Preprocedure, Administer within 60 minutes and complete at least 15 minutes prior to incision. premix bag, Dosing of this medication varies based on severity of illness. Does this patient have sepsis or concern for sepsis (probable or documented infection plus systemic manifestations of infection)? No, Suspected Indication (Select all that apply): Surgical Prophylaxis, Indications: Surgical Prophylaxis 1036 (New Bag - Prov ider: Terrell Davila, AYAAN)1106 (Due: Stopped - Provider: Terrell Davila RN) lidocaine PF (Xylocaine) 10 mg/mL (1 %) injection 1 mg 1 mg (0.1 mL), subcutaneous, Once, On Sun03/30/25 at 1400, For 1 dose, Recovery (only), To be used for IV insertion ONLY 1400 (Due) oxygen (O2) therapy inhalation, Continuous - , First dose on Sun03/30/25 at 1400, Recovery (only), Device: Nasal Cannula, Rate in liters per minute: 3 LPM, Keep O2 Sat Above: 92% 1339 (Rate Verify Me dical Gas - Provider: Nadira Parsons, AYAAN)1340 (Stopped - Provider: Nadira Parsons RN) PRN Medication Order 03/28/2025 03/29/2025 03/30/2025 HYDROmorphone (Dilaudid) injection 0.2 mg 0.2 mg, intravenous, Every 5 min PRN, pain moderate (4-6), first line, Starting on Sun03/30/25 at 1341, Recovery (only), Max total of 4 mg regardless of dose. HYDROmorphone (Dilaudid) injection 0.5 mg 0.5 mg, intravenous, Every 5 min PRN, pain severe (7-10), first line, Starting on Sun03/30/25 at 1341, Recovery (only), Max total of 4 mg regardless of dose. meperidine PF (Demerol) injection 12.5 mg 12.5 mg, intravenous, Every 10 min PRN, shivering, Starting on Sun03/30/25 at 1341, Recovery (only) metoclopramide (Reglan) injection 10 mg 10 mg, intravenous, Once as needed, nausea/vomiting, second line, Starting on Sun03/30/25 at 1341, For 1 dose, Recovery (only) ondansetron (Zofran) injection 4 mg 4 mg, intravenous, Once as needed, nausea/vomiting, first line, Starting on Sun03/30/25 at 1341, For 1 dose, Recovery (only), When administering via IV Push, administer over 3-5 minutes. oxyCODONE (Roxicodone) immediate release tablet 5 mg 5 mg, oral, Every 4 hours PRN, pain mild (1-3), first line, Starting on Sun03/30/25 at 1341, Recovery (only), When able to take oral medications., If ordered PRN for pain, nurse is permitted to administer this medication for higher pain scores based on patient preference? Yes 1406 (Given - Provid er: Nadira Parsnos RN) sodium chloride 0.9 % irrigation solution (CANCELED) As needed, Starting on Sun03/30/25 at 1218, Intraprocedure 1218 (Given - Provid er: Matilde Regan MD)1220 (Given - Provider: Matilde Regan MD)1225 (Given - Provider: Matilde Regan MD)1227 (Given - Provider: Matilde Regan MD)1249 (Given - Provider: Matilde Regan MD)1250 (Given - Provider: Matilde Regan MD)1251 (Canceled Entry - Provider: Matilde Regan MD)1311 (Given - Provider: Matilde Regan MD)1312 (Given - Provider: Matilde Regan MD) Scheduled Medication Order 07/24/2025 07/25/2025 07/26/2025 amLODIPine (Norvasc) tablet 10 mg 10 mg, oral, Daily, First dose (after last modification) on Sun07/21/25 at 0915, Indications: prevention of anginal pain in coronary artery disease, a 0910 (Given - Provider: Michael Vail RN) 0928 (Given - Provider: Lety Villalobos RN) 0839 (Given - Provider: Lety Villalobos RN) aspirin EC tablet 81 mg 81 mg, oral, Daily, First dose on Sun07/14/25 at 0900, Phase II/On Unit, Do not crush, chew, or split. 0910 (Given - Provider: Michael Vail RN) 0928 (Given - Provider: Lety Villalobos RN) 0838 (Given - Provider: Lety Villalobos RN) bisacodyl (Dulcolax) EC tablet 5 mg 5 mg, oral, Nightly, First dose on Sun07/17/25 at 2100, Do not give within 1 hour of antacids, milk, or dairy products. Do not crush, chew, or split. 2134 (Given - Provider: Denisse Moreno RN) 1999 (Given - Provider: Denisse Moreno RN) 2100 (Due) bisacodyl (Dulcolax) suppository 10 mg (COMPLETED) 10 mg, rectal, Once, On Sun07/24/25 at 0800, For 1 dose 0800 (Given - Provider: Michael Vail RN) bumetanide (Bumex) tablet 0.5 mg 0.5 mg, oral, Daily, First dose (after last modification) on Sun07/16/25 at 0900, Indications: hypertension 0910 (Given - Provider: Michael Vail RN) 0928 (Given - Provider: Lety Villalobos RN) 0838 (Given - Provider: Lety Villalobos RN) clopidogrel (Plavix) tablet 75 mg 75 mg, oral, Daily, First dose (after last reorder) on Sun07/14/25 at 1700 0910 (Given - Provider: Michael Vail RN) 0928 (Given - Provider: Lety Villalobos RN) 0838 (Given - Provider: Lety Villalobos, RN) ezetimibe (Zetia) tablet 10 mg 10 mg, oral, Daily, First dose on Sun07/13/25 at 1330, Indications: a 0910 (Given - Provider: Michael Vail RN) 0928 (Given - Provider: Lety Villalobos RN) 0838 (Given - Provider: Lety Villalobos, AYAAN) gabapentin (Neurontin) capsule 300 mg 300 mg, oral, 2 times daily, First dose on Sun07/13/25 at 1330, Capsules may be opened and sprinkled on food (eg, applesauce, orange juice, pudding, Indications: postherpetic neuralgia 0910 (Given - Provider: Michael Vail, AYAAN)2133 (Given - Provider: Denisse Moreno, AYAAN) 0928 (Given - Provider: Lety Villalobos, RN)1999 (Given - Provider: Denisse Moreno, AYAAN) 0838 (Given - Provider: Lety Villalobos, RN)2100 (Due) heparin (porcine) injection 5,000 Units 5,000 Units, subcutaneous, Every 8 hours, First dose on Sun07/15/25 at 1999 0420 (Given - Provider: Tamika Garcia RN)1225 (Given - Provider: Michael Vail, AYAAN)214 (Given - Provider: Denisse Moreno, AYAAN) 0615 (Given - Provider: Denisse Moreno, AYAAN)1208 (Given - Provider: Lety Villalobos, RN)2000 (Given - Provider: Denisse Moreno, AYAAN) 0342 (Given - Provider: Denisse Moreno RN)1200 (Due)1999 (Due) insulin glargine (Lantus) injection 16 Units 16 Units, subcutaneous, Nightly, First dose (after last modification) on Sun07/21/25 at 2100, Do not hold basal insulin, contact provider if there is any concern for hypoglycemia. 2134 (Given - Provider: Denisse Moreno RN) 2126 (Given - Provider: Denisse Moreno, AYAAN) 2100 (Due) insulin lispro injection 0-15 Units 0-15 Units, subcutaneous, 3 times daily before meals, First dose on Sun07/20/25 at 0815, Do not hold when patient is not eating, continue order as scheduled for hyperglycemia management. Insulin Lispro Corrective Scale #3 Hypoglycemia protocol Call LIP unit(s) if Blood Glucose is between 0 - 70 mg/dL 0 unit(s) if Blood glucose is between 71-150 3 unit(s) if Blood glucose is between 151-200 6 unit(s) if Blood glucose is between 201-250 9 unit(s) if Bloodglucose is between 251-300 12 unit(s) if Blood glucose is between 301-350 15 unit(s) if Blood glucose is between 351-400 If blood glucose is greater than 400 mg/dL, give max insulin per sliding scale AND then contact provider. 0910 (Given - Provider: Michael Vail RN)1230 (Not Given - Provider: Michael Vail RN - Reason: Other)1646 (Given - Provider: Michael Vail RN) 0913 (Given - Provider: Lety Villalobos RN)1146 (Not Given - Provider: Lety Villalobos RN - Reason: Order parameters not met)1740 (Given - Provider: Lety Villalobos RN) 0848 (Given - Provider: Lety Villalobos RN)1100 (Due)1600 (Due) melatonin tablet 6 mg 6 mg, oral, Daily, First dose (after last modification) on Sun07/23/25 at 1930 1807 (Given - Provider: Michael Vail RN) 1740 (Given - Provider: Lety Villalobos RN) 1800 (Due) OLANZapine (ZyPREXA) tablet 5 mg 5 mg, oral, Nightly, First dose (after last modification) on Sun07/21/25 at 2100 1812 (Given - Provider: Michael Vail RN) 2000 (Given - Provider: Denisse Moreno RN) 1900 (Due - Provider: Lizz Tanner, PharmD) pantoprazole (ProtoNix) EC tablet 40 mg(Linked Group 1) 40 mg, oral, Daily before breakfast, First dose on Sun07/14/25 at 0700, Phase II/On Unit, Do not crush, chew, or split. 0632 (Given - Provider: Tamika Garcia RN) 0928 (Given - Provider: Lety Villalobos RN) 0839 (Given - Provider: Lety Villalobos RN) pantoprazole (Protonix) injection 40 mg(Linked Group 1) 40 mg, intravenous, Administer over 2 Minutes, Daily before breakfast, First dose on Sun07/14/25 at 0700, Phase II/On Unit, Give if unable to take by mouth. Reconstitute each 40 mg vial with 10 mL NS to make 4 mg/mL solution. 0632 (See Alternative - Provider: Tamika Garcia RN) 0928 (See Alternative - Provider: Lety Villalobos RN) 0839 (See Alternative - Provider: Lety Villalobos RN) perflutren lipid microspheres (Definity) injection 0.5-10 mL of dilution 0.5-10 mL of dilution, intravenous, Once in imaging, Starting on Sun07/13/25 at 1354, For 1 dose, Contrast - for use by imaging provider only. Prior to administration, Definity product must be activated. First, bring vial to room temperature. Then, shake vial for 45 seconds. Do not use if the 45 second activation cycle has not been completed. Following activation, the product will appear as a milky white suspension and may be used immediately. If not used within 5 minutes of activation, re-suspend by inverting and shaking the vial for 10 seconds. Discard unused product. Administration: Dilute 1.3 mL of activated DEFINITY with 8.7 mL of normal saline in a 10 mL syringe. Inject 0.5 mL of diluted DEFINITY when notified the images/film are unclear to enhance view of Left Ventricular borders. Repeat 0.5 mL of DEFINITY until clear images are obtained, not to exceed 10 mLs. Once images are obtained or limit of medication is reached, flush line with 10 mL of Normal Saline. sennosides-docusate sodium (Nola-Colace) 8.6-50 mg per tablet 1 tablet 1 tablet, oral, 2 times daily, First dose on Sun07/21/25 at 2130 0910 (Given - Provider: Michael Vail RN)2135 (Given - Provider: Denisse Moreno RN) 0928 (Given - Provider: Lety Villalobos RN)2000 (Given - Provider: Denisse Moreno RN) 0839 (Given - Provider: Lety Villalobos RN)2100 (Due) tamsulosin (Flomax) 24 hr capsule 0.4 mg 0.4 mg, oral, Daily, First dose on Sun07/17/25 at 1215, Give 30 minutes after the same mealtime each day. Capsules should be swallowed whole; do not crush, chew, or open. 0910 (Given - Provider: Michael Vail RN) 0928 (Given - Provider: Lety Villalobos RN) 0839 (Given - Provider: Lety Villalobos RN) traZODone (Desyrel) tablet 25 mg 25 mg, oral, Nightly, First dose on Thelma 07/23/25 at 2100 2135 (Given - Provider: Denisse Moreno RN) 2000 (Given - Provider: Denisse Moreno RN) 2100 (Due) PRN Medication Order 07/24/2025 07/25/2025 07/26/2025 acetaminophen (Tylenol) oral liquid 650 mg(Linked Group 2) 650 mg, oral, Every 6 hours PRN, pain mild (1-3), first line, Starting on Sun07/13/25 at 2006, Phase II/On Unit, Give oral liquid if patient prefers or per feeding tube if present. If inadequate response within 60 minutes, proceed to next-line agent for same PRN reason or contact provider if no further options ordered. 2201 (See Alternative - Provider: Denisse Moreno RN) acetaminophen (Tylenol) suppository 650 mg(Linked Group 2) 650 mg, rectal, Every 6 hours PRN, pain mild (1-3), first line, Starting on Sun07/13/25 at 2006, Phase II/On Unit, Give rectally if unable to administer by mouth or feeding tube. If inadequate response within 60 minutes, proceed to next-line agent for same PRN reason or contact provider if no further options ordered., If ordered PRN for pain, nurse is permitted to administer this medication for higher pain scores based on patient preference? Yes 2201 (See Alternative - Provider: Denisse Moreno RN) acetaminophen (Tylenol) tablet 650 mg(Linked Group 2) 650 mg, oral, Every 6 hours PRN, pain mild (1-3), first line, Starting on Sun07/13/25 at 2006, Phase II/On Unit, If inadequate response within 60 minutes, proceed to next-line agent for same PRN reason or contact provider if no further options ordered., If ordered PRN for pain, nurse is permitted to administer this medication for higher pain scores based on patient preference? Yes 2201 (Not Given - Provider: Denisse Moreno RN - Reason: Patient/family refused - Comment: pt refused.) benzocaine-menthol (Cepastat Sore Throat) lozenge 1 lozenge 1 lozenge, Mouth/Throat, Every 2 hour PRN, sore throat, Starting on Sun07/13/25 at 2006, Phase II/On Unit dextrose 50 % injection 12.5 g 12.5 g, intravenous, Every 15 min PRN, For blood glucose 41 to 70 mg/dL, Starting on Sun07/14/25 at 1639, May repeat until blood glucose level reaches 100 mg/dL or greater. Push 2 - 3 mL/minute if patient has secure IV access. dextrose 50 % injection 25 g 25 g, intravenous, Every 15 min PRN, For blood glucose less than or equal to 40 mg/dL, Starting on Sun07/14/25 at 1639, May repeat until blood glucose level reaches 100 mg/dL or greater. Push 2 - 3 mL/minute if patient has secure IV access. glucagon (Glucagen) injection 1 mg 1 mg, intramuscular, Every 15 min PRN, blood glucose less than or equal to 40 mg/dL - see comments, For blood glucose less than or equal to 40 mg/dL and no IV access, Starting on Sun07/14/25 at 1639, Give until blood glucose is 100 mg/dL or greater. If patient DOES NOT HAVE secure IV access & patient is unconscious, NPO or is unable to eat or drink. glucagon (Glucagen) injection 1 mg 1 mg, intramuscular, Every 15 min PRN, blood glucose 41 to 70 mg/dL - see comments, For blood glucose 41 to 70 mg/dL and no IV access, Starting on Sun07/14/25 at 1639, Give until blood glucose is 100 mg/dL or greater. If patient DOES NOT HAVE secure IV access & patient is unconscious, NPO or is unable to eat or drink. lidocaine-epinephrine (Xylocaine W/EPI) 2 %-1:100,000 injection 5 mL 5 mL, subcutaneous, Once as needed, Access site bleeding, Starting on Sun07/13/25 at 2006, For 1 dose, Phase II/On Unit, Inject at site of bleed OLANZapine (ZyPREXA) tablet 2.5 mg 2.5 mg, oral, Every 8 hours PRN, agitation, Starting on Sun07/23/25 at 1203 1634 (Given - Provider: Lety Villalobos, AYAAN) ondansetron (Zofran) injection 4 mg(Linked Group 3) 4 mg, intravenous, Every 8 hours PRN, nausea/vomiting, second line, Starting on Sun07/13/25 at 2006, Phase II/On Unit, 2nd Line. Give IV if patient is unable to take orally. If inadequate response within 60 minutes, proceed to next-line agent for same PRN reason or contact provider if no further options ordered. When administering via IV Push, administer over 3-5 minutes. ondansetron (Zofran) tablet 4 mg(Linked Group 3) 4 mg, oral, Every 8 hours PRN, nausea/vomiting, second line, Starting on Sun07/13/25 at 2006, Phase II/On Unit, 2nd Line. Use oral route first, if possible. If inadequate response within 60 minutes, proceed to next-line agent for same PRN reason or contact provider if no further options ordered. oxygen (O2) therapy inhalation, Continuous - O2/gases, oxygen, SaO2<92, Starting on Sun07/13/25 at 2006, Phase II/On Unit, Wean oxygen therapy as tolerated., Device: Nasal Cannula, Rate in liters per minute: 2 LPM, Keep O2 Sat Above: 92% phenoL (Chloraseptic) 1.4 % mouth/throat spray 1 spray 1 spray, Mouth/Throat, Every 2 min PRN, sore throat, Starting on Sun07/13/25 at 2006, Phase II/On Unit, Instruct patient to spit out after 15 seconds. prochlorperazine (Compazine) injection 10 mg(Linked Group 4) 10 mg, intravenous, Every 6 hours PRN, nausea/vomiting, first line, Starting on Sun07/13/25 at 2006, Phase II/On Unit, Give IV if patient is unable to take orally. prochlorperazine (Compazine) suppository 25 mg(Linked Group 4) 25 mg, rectal, Every 12 hours PRN, nausea/vomiting, first line, Starting on Sun07/13/25 at 2006, Phase II/On Unit, 1st Line. Give TX if patient is unable to take orally or receive by injection. If inadequate response within 60 minutes, proceed to next-line agent or contact provider if no further options ordered. prochlorperazine (Compazine) tablet 10 mg(Linked Group 4) 10 mg, oral, Every 6 hours PRN, nausea/vomiting, first line, Starting on Sun07/13/25 at 2006, Phase II/On Unit, 1st Line. If inadequate response within 60 minutes, proceed to next-line agent or contact provider if no further options ordered. traMADol (Ultram) tablet 50 mg 50 mg, oral, Every 6 hours PRN, pain moderate (4-6), first line, Starting on Sun07/13/25 at 2006, Phase II/On Unit, If ordered PRN for pain, nurse is permitted to administer this medication for higher pain scores based on patient preference? Yes 2157 (Due) Linked Groups Order Group 1: pantoprazole (ProtoNix) EC tablet 40 mgJump to med 40 mg, oral, Daily before breakfast, First dose on Sun07/14/25 at 0700, Phase II/On Unit, Do not crush, chew, or split. Or pantoprazole (Protonix) injection 40 mgJump to med 40 mg, intravenous, Administer over 2 Minutes, Daily before breakfast, First dose on Sun07/14/25 at 0700, Phase II/On Unit, Give if unable to take by mouth. Reconstitute each 40 mg vial with 10 mL NS to make 4 mg/mL solution. Group 2: acetaminophen (Tylenol) tablet 650 mgJump to med 650 mg, oral, Every 6 hours PRN, pain mild (1-3), first line, Starting on Sun07/13/25 at 2006, Phase II/On Unit, If inadequate response within 60 minutes, proceed to next-line agent for same PRN reason or contact provider if no further options ordered., If ordered PRN for pain, nurse is permitted to administer this medication for higher pain scores based on patient preference? Yes Or acetaminophen (Tylenol) oral liquid 650 mgJump to med 650 mg, oral, Every 6 hours PRN, pain mild (1-3), first line, Starting on Sun07/13/25 at 2006, Phase II/On Unit, Give oral liquid if patient prefers or per feeding tube if present. If inadequate response within 60 minutes, proceed to next-line agent for same PRN reason or contact provider if no further options ordered. Or acetaminophen (Tylenol) suppository 650 mgJump to med 650 mg, rectal, Every 6 hours PRN, pain mild (1-3), first line, Starting on Sun07/13/25 at 2006, Phase II/On Unit, Give rectally if unable to administer by mouth or feeding tube. If inadequate response within 60 minutes, proceed to next-line agent for same PRN reason or contact provider if no further options ordered., If ordered PRN for pain, nurse is permitted to administer this medication for higher pain scores based on patient preference? Yes Group 3: ondansetron (Zofran) tablet 4 mgJump to med 4 mg, oral, Every 8 hours PRN, nausea/vomiting, second line, Starting on Sun07/13/25 at 2006, Phase II/On Unit, 2nd Line. Use oral route first, if possible. If inadequate response within 60 minutes, proceed to next-line agent for same PRN reason or contact provider if no further options ordered. Or ondansetron (Zofran) injection 4 mgJump to med 4 mg, intravenous, Every 8 hours PRN, nausea/vomiting, second line, Starting on Sun07/13/25 at 2006, Phase II/On Unit, 2nd Line. Give IV if patient is unable to take orally. If inadequate response within 60 minutes, proceed to next-line agent for same PRN reason or contact provider if no further options ordered. When administering via IV Push, administer over 3-5 minutes. Group 4: prochlorperazine (Compazine) tablet 10 mgJump to med 10 mg, oral, Every 6 hours PRN, nausea/vomiting, first line, Starting on Sun07/13/25 at 2006, Phase II/On Unit, 1st Line. If inadequate response within 60 minutes, proceed to next-line agent or contact provider if no further options ordered. Or prochlorperazine (Compazine) injection 10 mgJump to med 10 mg, intravenous, Every 6 hours PRN, nausea/vomiting, first line, Starting on Sun07/13/25 at 2006, Phase II/On Unit, Give IV if patient is unable to take orally. Or prochlorperazine (Compazine) suppository 25 mgJump to med 25 mg, rectal, Every 12 hours PRN, nausea/vomiting, first line, Starting on Sun07/13/25 at 2006, Phase II/On Unit, 1st Line. Give TX if patient is unable to take orally or receive by injection. If inadequate response within 60 minutes, proceed to next-line agent or contact provider if no further options ordered. FOR RECORDS PERTAINING TO PATIENTS WHO ARE OR HAVE BEEN ENROLLED IN A CHEMICAL DEPENDENCY/SUBSTANCEABUSE PROGRAM, SOME INFORMATION MAY BE OMITTED. This clinical summary was aggregated from multiple sources. Caution should be exercised in using it in the provision of clinical care. This summary normalizes information from multiple sources, and as a consequence, information in this document may materially change the coding, format and clinical context of patient data. In addition, data may be omitted in some cases. CLINICAL DECISIONS SHOULD BE BASED ON THE PRIMARY CLINICAL RECORDS. [facility]. provides no warranty or guarantee of the accuracy or completeness of information in this document.
== END | disposition home or self-care (01) ==
LOC: US 12:57
PROVIDERS: PCP Family Medicine; Referring Provider Internal Medicine; Visit Provider Internal Medicine
DX: E04.1 Nontoxic single thyroid nodule (principal)
CPT/HCPCS: 76536